=== PATIENT | male | born 1960 | race Caucasian/White ===

== ENCOUNTER 2021-11-11 15:15 | Inpatient (IN) | payer OTHER, MEDICAID, SELFPAY ==
--- NOTE | ~2021-11-11 | CT_ITS ---
EXAM: NONCONTRAST CT OF THE CHEST; NONCONTRAST CT OF THE ABDOMEN AND PELVIS INDICATION: Cough, discomfort, abdominal pain COMPARISON: 08/29/2010 TECHNIQUE: No IV contrast was utilized. Multidetector helical imaging was performed through the chest, abdomen, and pelvis. Coronal and sagittal reformatted images were created at the technologist workstation. DOSE LOWERING TECHNIQUES: This CT examination was performed using dose optimization techniques as appropriate, variously including the following: - Automated exposure control - Adjustment of mA and/or kV according to patient size (this includes techniques or standardized protocols for targeted exams were dose is matched to indication/reason for exam; i.e. extremities or head) - Use of iterative reconstruction technique DLP: 1139 mGy-cm FINDINGS: Chest: No regions of consolidation bilaterally. No pneumothorax or pleural effusion. Visualized thyroid gland is grossly unremarkable. There are subcentimeter mediastinal lymph nodes within the range of normal variation. Cardiac size is within normal limits; no pericardial effusion. Unenhanced aorta appears normal in caliber. No axillary lymphadenopathy is present. Degenerative changes are noted in the thoracic spine. Abdomen/Pelvis: The liver is homogeneous in attenuation without intrahepatic biliary ductal dilatation. The gallbladder is unremarkable. There is partial fatty atrophy of the pancreas. The unenhanced spleen and adrenal glands appear unremarkable. The unenhanced kidneys are unremarkable without hydronephrosis. No renal or ureteral calculi are present. The urinary bladder is unremarkable. The prostate and seminal vesicles are unremarkable. Small bilateral fat-containing inguinal hernias. There is sigmoid colon diverticulosis without diverticulitis. No significant bowel wall thickening or pericolonic inflammation is seen. There is some prominence of submucosal fat in the ascending colon which can be seen as sequelae of prior inflammation. The appendix is unremarkable. No free fluid or free air is present. Scattered atherosclerotic calcifications are present. No retroperitoneal or pelvic lymphadenopathy is seen. Degenerative changes are noted in the spine. CT/CT abdomen pelvis wo con IMPRESSION: No acute findings identified in the chest, abdomen, or pelvis. Chronic appearing changes as noted above.
--- NOTE | 2021-11-11 15:25 | MHC.CARE ---
Pt was assessed by [facility] in the community and is inpatient psychiatric bedsearch.
[2021-11-11 15:34] VITALS: BP 121/72; BP 142/84; PULSE 102; PULSE 98; TEMP 36.7; O2SAT 97; O2SAT 98; BMI 33.4
--- NOTE | 2021-11-11 16:13 | ECG_ITS ---
Test Reason : MED CLEARANCE Blood Pressure : / mmHG Vent. Rate : 093 BPM Atrial Rate : 093 BPM P-R Int : 144 ms QRS Dur : 102 ms QT Int : 372 ms P-R-T Axes : 049 004 055 degrees QTc Int : 462 ms Normal sinus rhythm Incomplete right bundle branch block Nonspecific ST abnormality Abnormal ECG When compared with ECG of 13-NOV-2015 16:21, ST now depressed in Anterior leads Referred By: Mary Granger Electronically Signed By:Michael Starr
--- NOTE | 2021-11-11 16:51 | ED_ITS ---
HPI - Psych General Chief Complaint: Psychiatric Symptoms <EDWIGE Torrez - Last Filed: 11/11/21 17:53> Stated Complaint: SEC12:N,SEEN:COMM,BED SEARCH:IN PROG,NEED MED CL <EDWIGE Torrez Last Filed: 11/11/21 17:53> Time Seen by Provider: 11/11/21 15:57 <EDWIGE Torrez - Last Filed: 11/11/21 17:53> Source: patient and EMS <EDWIGE Torrez Last Filed: 11/11/21 17:53> Mode of arrival: EMS <EDWIGE Torrez Last Filed: 11/11/21 17:53> History of Present Illness HPI Narrative: 61-year-old male with a past medical history of anxiety presenting to the ED complaining increasing panic attack x3 weeks with suicidal ideations and plan to hang himself with chain, reports symptoms have been worsening over the past 5 days. Admits sister passed and her birthday recently passed which exacerbated symptoms. Patient was evaluated in community and is a [facility] section 12 inpatient bed search. Reports anxiety makes him nauseous, anorexic, and mildly SOB, which is typical for him. Denies fever, chills, chest pain, abdominal pain, HI, EToH or illicit substance use <EDWIGE Torrez Last Filed: 11/11/21 17:53> MD complaint: feels depressed and anxiety <EDWIGE Torrez Last Filed: 11/11/21 17:53> Related Data Home Medications: Home Medications Medication Instructions Recorded Confirmed aspirin 81 mg tablet,delayed 81 mg PO DAILY 11/11/21 11/11/21 release atorvastatin 20 mg tablet 20 mg PO DAILY 11/11/21 11/11/21 buspirone 10 mg tablet 10 mg PO BID 11/11/21 11/11/21 clonazepam 1 mg tablet 1 mg PO TID 11/11/21 11/11/21 fenofibrate 160 mg tablet 160 mg PO DAILY 11/11/21 11/11/21 fluoxetine 20 mg capsule 60 mg PO DAILY 11/11/21 11/11/21 lisinopril 5 mg tablet 5 mg PO DAILY 11/11/21 11/11/21 omeprazole 20 mg capsule,delayed 20 mg PO DAILY 11/11/21 11/11/21 release propranolol 10 mg tablet 10 mg PO BID PRN 11/11/21 11/11/21 <EDWIGE Torrez - Last Filed: 11/11/21 17:53> Allergies/Adverse Reactions: Allergies Allergy/AdvReac Type Severity Reaction Status Date / Time acetaminophen [Percocet] Allergy Unknown Verified 11/15/12 00:00 oxycodone [Percocet] Allergy Unknown Verified 11/15/12 00:00 codeine [CODEINE] AdvReac Severe sick to Unverified 06/21/20 15:26 his stomach Codeine Sulfate Allergy Unknown Uncoded 11/15/12 00:00 <EDWIGE Torrez - Last Filed: 11/11/21 17:53> Review of Systems 2 Review of Systems: Constitutional: No Fever, No Chills, No Fatigue, No Malaise ENT/Mouth: No Ear Pain, No Nasal Congestion, No sore throat, No Rhinorrhea Eyes: No Eye Pain, No Swelling, No Redness Cardiovascular: No Chest Pain, + SOB (not at present), No Dyspnea on Exertion, No Palpitations Respiratory: No Cough, No Sputum, No Dyspnea Gastrointestinal: + Nausea, No Vomiting, No Diarrhea, No Constipation, No Abdominal pain Genitourinary: No Dysuria, No Urinary Frequency, No Flank Pain, No Urinary Flow Changes Musculoskeletal: No joint pain, No Myalgias, No Joint Swelling Skin: No Skin Lesions, No rash Neuro: No Weakness, No Numbness, No Dizziness, No Headache Psych: + Anxiety/Panic, + Depression, + SI, No HI/AH/VH, No Social Issues <EDWIGE Torrez - Last Filed: 11/11/21 17:53> Yes all other systems are reviewed and are negative <EDWIGE Torrez - Last Filed: 11/11/21 17:53> [facility] Past Medical History Attestation statement: The following information was validated with the patient. <EDWIGE Torrez - Last Filed: 11/11/21 17:53> Social History Social History: Social History Patient Tobacco Use Status: Current everyday Tobacco user Use of substances other than those prescribed or required for medical reasons: No Advance Directives: No Advance Directives Information Provided: No <EDWIGE Torrez - Last Filed: 11/11/21 17:53> Physical Exam Vital Signs: Vital Signs: Last Vital Signs Temp 99.2 F 11/12/21 01:35 Pulse 82 11/12/21 01:35 Resp 18 11/12/21 01:35 BP 157/67 H 11/12/21 01:35 Pulse Ox 98 11/12/21 01:35 BMI result Body Mass Index 33.4 <EDWIGE Torrez - Last Filed: 11/11/21 17:53> Vital Signs: Last Vital Signs Temp 99.2 F 11/12/21 01:35 Pulse 82 11/12/21 01:35 Resp 18 11/12/21 01:35 BP 157/67 H 11/12/21 01:35 Pulse Ox 98 11/12/21 01:35 BMI result Body Mass Index 33.4 <Adela Gonzalez MD - Last Filed: 11/12/21 05:57> Vital Signs: Last Vital Signs Temp 99.2 F 11/12/21 01:35 Pulse 82 11/12/21 01:35 Resp 18 11/12/21 01:35 BP 157/67 H 11/12/21 01:35 Pulse Ox 98 11/12/21 01:35 BMI result Body Mass Index 33.4 <Ave Stauffer NP - Last Filed: 11/12/21 08:29> Const: General: cooperative, no acute distress and anxious <EDWIGE Torrez - Last Filed: 11/11/21 17:53> Orientation/consciousness: patient oriented x3 <EDWIGE Torrez - Last Filed: 11/11/21 17:53> Limitations: no limitations <EDWIGE Torrez - Last Filed: 11/11/21 17:53> HENMT: Head: Yes normal to inspection and Yes atraumatic <EDWIGE Torrez - Last Filed: 11/11/21 17:53> Ears: hearing grossly normal bilaterally <EDWIGE Torrez - Last Filed: 11/11/21 17:53> General nose exam: Normal external nose present <EDWIGE Torrez - Last Filed: 11/11/21 17:53> Face and sinus: Yes normal facial exam <Mary Granger PA - Last Filed: 11/11/21 17:53> Eyes: General: appearance normal, both eyes and all related structures <Mary Granger PA - Last Filed: 11/11/21 17:53> EOM: EOMs intact bilaterally <Mary Granger PA - Last Filed: 11/11/21 17:53> Neck: Neck: Yes normal visual inspection and Yes no meningeal signs <Mary Granger PA - Last Filed: 11/11/21 17:53> Resp: Effort & Inspection: normal respiratory effort and no respiratory distress <Mary Granger PA - Last Filed: 11/11/21 17:53> Auscultation: clear to auscultation bilaterally, no rales, no rhonchi and no wheezes <Mary Granger PA - Last Filed: 11/11/21 17:53> Cardio: Rate: regular rate <Mary Granger PA - Last Filed: 11/11/21 17:53> Heart sounds: S1 normal heart sound present and S2 normal heart sound present <Mary Granger PA - Last Filed: 11/11/21 17:53> GI: Inspection: Yes normal to inspection <Mary Granger PA - Last Filed: 11/11/21 17:53> Palpation (GI): Soft to palpation, nontender, no guarding and not rigid <Mary Granger PA - Last Filed: 11/11/21 17:53> Skin: Rashes: no rashes <Mary Granger PA - Last Filed: 11/11/21 17:53> Wounds: no wounds <Mary Granger PA - Last Filed: 11/11/21 17:53> Neuro: General: patient oriented x3, gait normal, tone normal, moves all extremities, no meningeal signs, no focal motor deficits and CN's II-XI intact bilaterally <Mary Granger PA - Last Filed: 11/11/21 17:53> Gait exam (Neuro): Normal gait present <Mary Granger PA - Last Filed: 11/11/21 17:53> Extrem: General: Yes normal to inspection <EDWIGE Torrez - Last Filed: 11/11/21 17:53> Psych: Mental Status: mental status grossly normal <EDWIGE Torrez - Last Filed: 11/11/21 17:53> Affect: Sad affect present and Anxious affect present <EDWIGE Torrez - Last Filed: 11/11/21 17:53> Thought content: Suicidality present, no homicidality, no hallucinations and Depressive thoughts present <EDWIGE Torrez - Last Filed: 11/11/21 17:53> Course Course Course Narrative: 1800--ED care transfer to [employer] [facility] pending labs, UA, drug screen, and cont inued bed search <EDWIGE Torrez - Last Filed: 11/11/21 17:53> 1800--ED care transfer to [employer] [facility] pending labs, UA, drug screen, and continued bed search <Adela Gonzalez MD - Last Filed: 11/12/21 05:57> Reevaluation(s) Reevaluation #1: Patient was signed out to me with new worsening kidney function and a mild leukocytosis, however on imaging studies (noncontrast) there are no acute findings in the chest/abdomen/pelvis. Suspect that worsening kidney function is progression of CKDAnd the noted leukocytosis felt to be secondary to combination of hemoconcentration and stress response. Patient is otherwise me dically cleared for further evaluation by the behavioral team. <Adela Gonzalez MD - Last Filed: 11/12/21 05:57> Time: 05:54 <Adela Gonzalez MD - Last Filed: 11/12/21 05:57> Reevaluation #2: Patient placed in physician observation because the patient needed more time for evaluation by the behavioral team. At the time observation was started the patient's vital signs were stable, patient is alert and oriented, neuro: Nonfocal, CV RRR, lungs clear <Adela Gonzalez MD - Last Filed: 11/12/21 05:57> Time: 05:56 <Adela Gonzalez MD - Last Filed: 11/12/21 05:57> Reevaluation #3: patient is currently a section 12 bed search and is being followed by the Behavioral team. Currently sleeping. No complaints from nursing overnight. Respiratory even and labored. Vitals are stable. Will physician position observation pending disposition <Ave Stauffer NP - Last Filed: 11/12/21 08:29> MDM - Psych MDM Narrative Medical decision making narrative: 61-year-old male with a past medical history of anxiety presenting to the ED complaining increasing panic attack x3 weeks with suicidal ideations and plan to hang himself with chain, reports symptoms have been worsening over the past 5 days. On exam vital signs stable, NAD, physical exam as above. Will rule out organic causes/obtain medical clearance. Plan: EKG, labs, UA, drug screen, care team consult/bed search <EDWIGE Torrez - Last Filed: 11/11/21 17:53> Differential Diagnosis Differential diagnosis: Likely suicidal ideation, depression, acute anxiety, substance abuse and mood disorder <EDWIGE Torrez - Last Filed: 11/11/21 17:53> Medical Records Attestation: I reviewed the patient's medical records. <EDWIGE Torrez - Last Filed: 11/11/21 17:53> Lab Data Attestation: I reviewed the patient's lab results. <EDWIGE Torrez - Last Filed: 11/11/21 17:53> Result diagrams: : 11/11/21 17:38 11/12/21 01:39 <EDWIGE Torrez - Last Filed: 11/11/21 17:53> Labs: Lab Results 11/11/21 11/11/21 11/11/21 Range/Units 16:32 17:38 17:38 WBC 15.1 H (4.8-10.8) X10*3/uL RBC 5.77 (4.60-5.80) X10*6/uL Hgb 18.2 H (14.0-18.0) g/dl Hct 51.8 (42.0-52.0) % MCV 89.8 (80.0-98.0) fL MCH 31.5 (27.0-33.0) pg MCHC 35.1 (31.0-36.0) g/dl RDW 12.1 (11.0-16.0) % Plt Count 260 (160-400) X10*3/uL MPV 10.2 (9.4-12.4) fL Immature Gran % (Auto) 0.6 H (0.0-0.4) % Neut % (Auto) 74.8 H (45-73) % Lymph % (Auto) 13.8 L (20-40) % [place] % (Auto) 10.3 (2-11) % Eos % (Auto) 0.2 (0-4) % Baso % (Auto) 0.3 (0-2) % Lymph # (Auto) 2.1 (1.2-4.9) X10*3/uL [place] # (Auto) 1.6 H (0.1-1.2) X10*3/uL Eos # (Auto) 0.0 (0.0-0.4) X10*3/uL Baso # (Auto) 0.1 (0.0-0.2) X10*3/uL Abs Immat Gran (auto) 0.09 H (0.00-0.03) X10*3/uL Absolute Neuts (auto) 11.3 H (2.0-8.3) x10*3/uL Absolute Nucleated RBC 0.000 (0.0-0.012) X10*3/uL Nucleated RBC % (auto) 0.0 (0.0-0.2) /100WBC Smear Tech's Comments VERIFIED Sodium 133 L (135-145) mmol/L Potassium 3.4 (3.3-5.1) mmol/L Chloride 98 (96-108) mmol/L Carbon Dioxide 21 L (22-29) mmol/L Anion Gap 17 (12-20) BUN 36 H (9-16) mg/dL Creatinine 2.81 H (0.5-1.4) mg/dL Estim Creat Clear Calc 32.0 Estimated GFR 23 Random Glucose 122 H (60-115) mg/dL Calcium 9.8 (8.4-10.2) mg/dL Magnesium 2.0 (1.6-2.6) mg/dL Total Bilirubin 1.4 H (0.0-1.0) mg/dL Direct Bilirubin 0.5 (0.0-0.5) mg/dL AST 32 (5-37) U/L ALT 38 (0-40) U/L Alkaline Phosphatase 40 (39-117) U/L Total Protein 8.1 H (6.5-8.0) g/dL Albumin 4.8 (3.5-5.0) g/dL Lipase 60 (8-78) U/L Urine Color Urine Appearance Urine pH (5.0-8.0) Ur Specific [place] (1.005-1.025) Urine Protein (NEG-TRACE) MG/DL Urine Glucose (UA) (NEG) MG/DL Urine Ketones (NEG) MG/DL Urine Blood (NEG) Urine Nitrite (NEG) Ur Leukocyte Esterase (NEG) Urine RBC (0) /HPF Urine WBC (0-4) /HPF Ur Squamous Epith Cells /LPF Urine Bacteria /LPF Hyaline Casts /LPF Urine Mucus /LPF Urine Opiates Screen (Not Detect) Urine Fentanyl Screen (Not Detect) Ur Barbiturates Screen (Not Detect) Ur Phencyclidine Scrn (Not Detect) Ur Amphetamines Screen (Not Detect) U Benzodiazepines Scrn (Not Detect) Urine Cocaine Screen (Not Detect) U Marijuana (THC) Screen (Not Detect) COVID-19 (RG) Negative (Negative) COVID-19 Clin Com See Note 11/11/21 11/12/21 11/12/21 Range/Units 19:17 01:39 06:03 WBC (4.8-10.8) X10*3/uL RBC (4.60-5.80) X10*6/uL Hgb (14.0-18.0) g/dl Hct (42.0-52.0) % MCV (80.0-98.0) fL MCH (27.0-33.0) pg MCHC (31.0-36.0) g/dl RDW (11.0-16.0) % Plt Count (160-400) X10*3/uL MPV (9.4-12.4) fL Immature Gran % (Auto) (0.0-0.4) % Neut % (Auto) (45-73) % Lymph % (Auto) (20-40) % [place] % (Auto) (2-11) % Eos % (Auto) (0-4) % Baso % (Auto) (0-2) % Lymph # (Auto) (1.2-4.9) X10*3/uL [place] # (Auto) (0.1-1.2) X10*3/uL Eos # (Auto) (0.0-0.4) X10*3/uL Baso # (Auto) (0.0-0.2) X10*3/uL Abs Immat Gran (auto) (0.00-0.03) X10*3/uL Absolute Neuts (auto) (2.0-8.3) x10*3/uL Absolute Nucleated RBC (0.0-0.012) X10*3/uL Nucleated RBC % (auto) (0.0-0.2) /100WBC Smear Tech's Comments Sodium 134 L (135-145) mmol/L Potassium 4.1 D (3.3-5.1) mmol/L Chloride 100 (96-108) mmol/L Carbon Dioxide 24 (22-29) mmol/L Anion Gap 14 (12-20) BUN 37 H (9-16) mg/dL Creatinine 2.41 H (0.5-1.4) mg/dL Estim Creat Clear Calc 37.3 Estimated GFR 28 Random Glucose 105 (60-115) mg/dL Calcium 8.5 D (8.4-10.2) mg/dL Magnesium (1.6-2.6) mg/dL Total Bilirubin (0.0-1.0) mg/dL Direct Bilirubin (0.0-0.5) mg/dL AST (5-37) U/L ALT (0-40) U/L Alkaline Phosphatase (39-117) U/L Total Protein (6.5-8.0) g/dL Albumin (3.5-5.0) g/dL Lipase (8-78) U/L Urine Color YELLOW Urine Appearance CLEAR Urine pH 6.0 (5.0-8.0) Ur Specific [place] >= 1.030 H (1.005-1.025) Urine Protein TRACE (NEG-TRACE) MG/DL Urine Glucose (UA) NEG (NEG) MG/DL Urine Ketones NEG (NEG) MG/DL Urine Blood TRACE (NEG) Urine Nitrite NEG (NEG) Ur Leukocyte Esterase NEG (NEG) Urine RBC 0-2 (0) /HPF Urine WBC 0-2 (0-4) /HPF Ur Squamous Epith Cells 1+ /LPF Urine Bacteria NONE /LPF Hyaline Casts 0-2 /LPF Urine Mucus 1+ /LPF Urine Opiates Screen Not Detected (Not Detect) Urine Fentanyl Screen Not Detected (Not Detect) Ur Barbiturates Screen Not Detected (Not Detect) Ur Phencyclidine Scrn Not Detected (Not Detect) Ur Amphetamines Screen Not Detected (Not Detect) U Benzodiazepines Scrn POSITIVE H (Not Detect) Urine Cocaine Screen Not Detected (Not Detect) U Marijuana (THC) Screen POSITIVE H (Not Detect) COVID-19 (RG) (Negative) COVID-19 Clin Com <EDWIGE Torrez - Last Filed: 11/11/21 17:53> Lab Results 11/11/21 11/11/21 11/11/21 Range/Units 16:32 17:38 17:38 WBC 15.1 H (4.8-10.8) X10*3/uL RBC 5.77 (4.60-5.80) X10*6/uL Hgb 18.2 H (14.0-18.0) g/dl Hct 51.8 (42.0-52.0) % MCV 89.8 (80.0-98.0) fL MCH 31.5 (27.0-33.0) pg MCHC 35.1 (31.0-36.0) g/dl RDW 12.1 (11.0-16.0) % Plt Count 260 (160-400) X10*3/uL MPV 10.2 (9.4-12.4) fL Immature Gran % (Auto) 0.6 H (0.0-0.4) % Neut % (Auto) 74.8 H (45-73) % Lymph % (Auto) 13.8 L (20-40) % [place] % (Auto) 10.3 (2-11) % Eos % (Auto) 0.2 (0-4) % Baso % (Auto) 0.3 (0-2) % Lymph # (Auto) 2.1 (1.2-4.9) X10*3/uL [place] # (Auto) 1.6 H (0.1-1.2) X10*3/uL Eos # (Auto) 0.0 (0.0-0.4) X10*3/uL Baso # (Auto) 0.1 (0.0-0.2) X10*3/uL Abs Immat Gran (auto) 0.09 H (0.00-0.03) X10*3/uL Absolute Neuts (auto) 11.3 H (2.0-8.3) x10*3/uL Absolute Nucleated RBC 0.000 (0.0-0.012) X10*3/uL Nucleated RBC % (auto) 0.0 (0.0-0.2) /100WBC Smear Tech's Comments VERIFIED Sodium 133 L (135-145) mmol/L Potassium 3.4 (3.3-5.1) mmol/L Chloride 98 (96-108) mmol/L Carbon Dioxide 21 L (22-29) mmol/L Anion Gap 17 (12-20) BUN 36 H (9-16) mg/dL Creatinine 2.81 H (0.5-1.4) mg/dL Estim Creat Clear Calc 32.0 Estimated GFR 23 Random Glucose 122 H (60-115) mg/dL Calcium 9.8 (8.4-10.2) mg/dL Magnesium 2.0 (1.6-2.6) mg/dL Total Bilirubin 1.4 H (0.0-1.0) mg/dL Direct Bilirubin 0.5 (0.0-0.5) mg/dL AST 32 (5-37) U/L ALT 38 (0-40) U/L Alkaline Phosphatase 40 (39-117) U/L Total Protein 8.1 H (6.5-8.0) g/dL Albumin 4.8 (3.5-5.0) g/dL Lipase 60 (8-78) U/L Urine Color Urine Appearance Urine pH (5.0-8.0) Ur Specific [place] (1.005-1.025) Urine Protein (NEG-TRACE) MG/DL Urine Glucose (UA) (NEG) MG/DL Urine Ketones (NEG) MG/DL Urine Blood (NEG) Urine Nitrite (NEG) Ur Leukocyte Esterase (NEG) Urine RBC (0) /HPF Urine WBC (0-4) /HPF Ur Squamous Epith Cells /LPF Urine Bacteria /LPF Hyaline Casts /LPF Urine Mucus /LPF Urine Opiates Screen (Not Detect) Urine Fentanyl Screen (Not Detect) Ur Barbiturates Screen (Not Detect) Ur Phencyclidine Scrn (Not Detect) Ur Amphetamines Screen (Not Detect) U Benzodiazepines Scrn (Not Detect) Urine Cocaine Screen (Not Detect) U Marijuana (THC) Screen (Not Detect) COVID-19 (RG) Negative (Negative) COVID-19 Clin Com See Note 11/11/21 11/12/21 11/12/21 Range/Units 19:17 01:39 06:03 WBC (4.8-10.8) X10*3/uL RBC (4.60-5.80) X10*6/uL Hgb (14.0-18.0) g/dl Hct (42.0-52.0) % MCV (80.0-98.0) fL MCH (27.0-33.0) pg MCHC (31.0-36.0) g/dl RDW (11.0-16.0) % Plt Count (160-400) X10*3/uL MPV (9.4-12.4) fL Immature Gran % (Auto) (0.0-0.4) % Neut % (Auto) (45-73) % Lymph % (Auto) (20-40) % [place] % (Auto) (2-11) % Eos % (Auto) (0-4) % Baso % (Auto) (0-2) % Lymph # (Auto) (1.2-4.9) X10*3/uL [place] # (Auto) (0.1-1.2) X10*3/uL Eos # (Auto) (0.0-0.4) X10*3/uL Baso # (Auto) (0.0-0.2) X10*3/uL Abs Immat Gran (auto) (0.00-0.03) X10*3/uL Absolute Neuts (auto) (2.0-8.3) x10*3/uL Absolute Nucleated RBC (0.0-0.012) X10*3/uL Nucleated RBC % (auto) (0.0-0.2) /100WBC Smear Tech's Comments Sodium 134 L (135-145) mmol/L Potassium 4.1 D (3.3-5.1) mmol/L Chloride 100 (96-108) mmol/L Carbon Dioxide 24 (22-29) mmol/L Anion Gap 14 (12-20) BUN 37 H (9-16) mg/dL Creatinine 2.41 H (0.5-1.4) mg/dL Estim Creat Clear Calc 37.3 Estimated GFR 28 Random Glucose 105 (60-115) mg/dL Calcium 8.5 D (8.4-10.2) mg/dL Magnesium (1.6-2.6) mg/dL Total Bilirubin (0.0-1.0) mg/dL Direct Bilirubin (0.0-0.5) mg/dL AST (5-37) U/L ALT (0-40) U/L Alkaline Phosphatase (39-117) U/L Total Protein (6.5-8.0) g/dL Albumin (3.5-5.0) g/dL Lipase (8-78) U/L Urine Color YELLOW Urine Appearance CLEAR Urine pH 6.0 (5.0-8.0) Ur Specific [place] >= 1.030 H (1.005-1.025) Urine Protein TRACE (NEG-TRACE) MG/DL Urine Glucose (UA) NEG (NEG) MG/DL Urine Ketones NEG (NEG) MG/DL Urine Blood TRACE (NEG) Urine Nitrite NEG (NEG) Ur Leukocyte Esterase NEG (NEG) Urine RBC 0-2 (0) /HPF Urine WBC 0-2 (0-4) /HPF Ur Squamous Epith Cells 1+ /LPF Urine Bacteria NONE /LPF Hyaline Casts 0-2 /LPF Urine Mucus 1+ /LPF Urine Opiates Screen Not Detected (Not Detect) Urine Fentanyl Screen Not Detected (Not Detect) Ur Barbiturates Screen Not Detected (Not Detect) Ur Phencyclidine Scrn Not Detected (Not Detect) Ur Amphetamines Screen Not Detected (Not Detect) U Benzodiazepines Scrn POSITIVE H (Not Detect) Urine Cocaine Screen Not Detected (Not Detect) U Marijuana (THC) Screen POSITIVE H (Not Detect) COVID-19 (RG) (Negative) COVID-19 Clin Com <Adela Gonzalez MD - Last Filed: 11/12/21 05:57> Lab Results 11/11/21 11/11/21 11/11/21 Range/Units 16:32 17:38 17:38 WBC 15.1 H (4.8-10.8) X10*3/uL RBC 5.77 (4.60-5.80) X10*6/uL Hgb 18.2 H (14.0-18.0) g/dl Hct 51.8 (42.0-52.0) % MCV 89.8 (80.0-98.0) fL MCH 31.5 (27.0-33.0) pg MCHC 35.1 (31.0-36.0) g/dl RDW 12.1 (11.0-16.0) % Plt Count 260 (160-400) X10*3/uL MPV 10.2 (9.4-12.4) fL Immature Gran % (Auto) 0.6 H (0.0-0.4) % Neut % (Auto) 74.8 H (45-73) % Lymph % (Auto) 13.8 L (20-40) % [place] % (Auto) 10.3 (2-11) % Eos % (Auto) 0.2 (0-4) % Baso % (Auto) 0.3 (0-2) % Lymph # (Auto) 2.1 (1.2-4.9) X10*3/uL [place] # (Auto) 1.6 H (0.1-1.2) X10*3/uL Eos # (Auto) 0.0 (0.0-0.4) X10*3/uL Baso # (Auto) 0.1 (0.0-0.2) X10*3/uL Abs Immat Gran (auto) 0.09 H (0.00-0.03) X10*3/uL Absolute Neuts (auto) 11.3 H (2.0-8.3) x10*3/uL Absolute Nucleated RBC 0.000 (0.0-0.012) X10*3/uL Nucleated RBC % (auto) 0.0 (0.0-0.2) /100WBC Smear Tech's Comments VERIFIED Sodium 133 L (135-145) mmol/L Potassium 3.4 (3.3-5.1) mmol/L Chloride 98 (96-108) mmol/L Carbon Dioxide 21 L (22-29) mmol/L Anion Gap 17 (12-20) BUN 36 H (9-16) mg/dL Creatinine 2.81 H (0.5-1.4) mg/dL Estim Creat Clear Calc 32.0 Estimated GFR 23 Random Glucose 122 H (60-115) mg/dL Calcium 9.8 (8.4-10.2) mg/dL Magnesium 2.0 (1.6-2.6) mg/dL Total Bilirubin 1.4 H (0.0-1.0) mg/dL Direct Bilirubin 0.5 (0.0-0.5) mg/dL AST 32 (5-37) U/L ALT 38 (0-40) U/L Alkaline Phosphatase 40 (39-117) U/L Total Protein 8.1 H (6.5-8.0) g/dL Albumin 4.8 (3.5-5.0) g/dL Lipase 60 (8-78) U/L Urine Color Urine Appearance Urine pH (5.0-8.0) Ur Specific [place] (1.005-1.025) Urine Protein (NEG-TRACE) MG/DL Urine Glucose (UA) (NEG) MG/DL Urine Ketones (NEG) MG/DL Urine Blood (NEG) Urine Nitrite (NEG) Ur Leukocyte Esterase (NEG) Urine RBC (0) /HPF Urine WBC (0-4) /HPF Ur Squamous Epith Cells /LPF Urine Bacteria /LPF Hyaline Casts /LPF Urine Mucus /LPF Urine Opiates Screen (Not Detect) Urine Fentanyl Screen (Not Detect) Ur Barbiturates Screen (Not Detect) Ur Phencyclidine Scrn (Not Detect) Ur Amphetamines Screen (Not Detect) U Benzodiazepines Scrn (Not Detect) Urine Cocaine Screen (Not Detect) U Marijuana (THC) Screen (Not Detect) COVID-19 (RG) Negative (Negative) COVID-19 Clin Com See Note 11/11/21 11/12/21 11/12/21 Range/Units 19:17 01:39 06:03 WBC (4.8-10.8) X10*3/uL RBC (4.60-5.80) X10*6/uL Hgb (14.0-18.0) g/dl Hct (42.0-52.0) % MCV (80.0-98.0) fL MCH (27.0-33.0) pg MCHC (31.0-36.0) g/dl RDW (11.0-16.0) % Plt Count (160-400) X10*3/uL MPV (9.4-12.4) fL Immature Gran % (Auto) (0.0-0.4) % Neut % (Auto) (45-73) % Lymph % (Auto) (20-40) % [place] % (Auto) (2-11) % Eos % (Auto) (0-4) % Baso % (Auto) (0-2) % Lymph # (Auto) (1.2-4.9) X10*3/uL [place] # (Auto) (0.1-1.2) X10*3/uL Eos # (Auto) (0.0-0.4) X10*3/uL Baso # (Auto) (0.0-0.2) X10*3/uL Abs Immat Gran (auto) (0.00-0.03) X10*3/uL Absolute Neuts (auto) (2.0-8.3) x10*3/uL Absolute Nucleated RBC (0.0-0.012) X10*3/uL Nucleated RBC % (auto) (0.0-0.2) /100WBC Smear Tech's Comments Sodium 134 L (135-145) mmol/L Potassium 4.1 D (3.3-5.1) mmol/L Chloride 100 (96-108) mmol/L Carbon Dioxide 24 (22-29) mmol/L Anion Gap 14 (12-20) BUN 37 H (9-16) mg/dL Creatinine 2.41 H (0.5-1.4) mg/dL Estim Creat Clear Calc 37.3 Estimated GFR 28 Random Glucose 105 (60-115) mg/dL Calcium 8.5 D (8.4-10.2) mg/dL Magnesium (1.6-2.6) mg/dL Total Bilirubin (0.0-1.0) mg/dL Direct Bilirubin (0.0-0.5) mg/dL AST (5-37) U/L ALT (0-40) U/L Alkaline Phosphatase (39-117) U/L Total Protein (6.5-8.0) g/dL Albumin (3.5-5.0) g/dL Lipase (8-78) U/L Urine Color YELLOW Urine Appearance CLEAR Urine pH 6.0 (5.0-8.0) Ur Specific [place] >= 1.030 H (1.005-1.025) Urine Protein TRACE (NEG-TRACE) MG/DL Urine Glucose (UA) NEG (NEG) MG/DL Urine Ketones NEG (NEG) MG/DL Urine Blood TRACE (NEG) Urine Nitrite NEG (NEG) Ur Leukocyte Esterase NEG (NEG) Urine RBC 0-2 (0) /HPF Urine WBC 0-2 (0-4) /HPF Ur Squamous Epith Cells 1+ /LPF Urine Bacteria NONE /LPF Hyaline Casts 0-2 /LPF Urine Mucus 1+ /LPF Urine Opiates Screen Not Detected (Not Detect) Urine Fentanyl Screen Not Detected (Not Detect) Ur Barbiturates Screen Not Detected (Not Detect) Ur Phencyclidine Scrn Not Detected (Not Detect) Ur Amphetamines Screen Not Detected (Not Detect) U Benzodiazepines Scrn POSITIVE H (Not Detect) Urine Cocaine Screen Not Detected (Not Detect) U Marijuana (THC) Screen POSITIVE H (Not Detect) COVID-19 (RG) (Negative) COVID-19 Clin Com <Ave Stauffer NP - Last Filed: 11/12/21 08:29> Discharge Plan Discharge Clinical Impression: Depression, Suicidal ideation, Acute anxiety <EDWIGE Torrez - Last Filed: 11/11/21 17:53> Patient Disposition: Still a Patient <EDWIGE Torrez - Last Filed: 11/11/21 17:53> Prescriptions: No Action buspirone 10 mg Tablet 10 mg PO BID 0RF fluoxetine 20 mg Capsule 60 mg PO DAILY 0RF atorvastatin 20 mg Tablet 20 mg PO DAILY 0RF clonazepam 1 mg Tablet 1 mg PO TID 0RF propranolol 10 mg Tablet 10 mg PO BID PRN (Reason: NEEDED) 0RF omeprazole 20 mg Capsule,Delayed Release(Dr/Ec) 20 mg PO DAILY 0RF fenofibrate 160 mg Tablet 160 mg PO DAILY 0RF lisinopril 5 mg Tablet 5 mg PO DAILY 0RF aspirin 81 mg Tablet,Delayed Release (Dr/Ec) 81 mg PO DAILY 0RF <EDWIGE Torrez - Last Filed: 11/11/21 17:53>
[2021-11-11 17:00] LABS: COVID-19 Test Negative (Negative); IDNOW Serial# 9DD0AD1C
[2021-11-11] MEDS: LORazepam 1 MG TABLET PO (17:43)
[2021-11-11 17:44] LABS: Basophils Absolute Auto 0.1 X10*3/uL (0.0-0.2); Basophils Percent Auto 0.3 % (0-2); Eosinophils Percent Auto 0.2 % (0-4); Hematocrit 51.8 % (42.0-52.0); Hemoglobin 18.2 g/dl (14.0-18.0); Imm Gran Abs Auto 0.09 X10*3/uL (0.00-0.03); Imm Gran Pct Auto 0.6 % (0.0-0.4); Lymphocytes Absolute Auto 2.1 X10*3/uL (1.2-4.9); Lymphocytes Percent Auto 13.8 % (20-40); MANUAL DIFF FLAG SCAN; Mean Corpuscular HGB Conc 35.1 g/dl (31.0-36.0); Mean Corpuscular Hemoglobin 31.5 pg (27.0-33.0); Mean Corpuscular Volume 89.8 fL (80.0-98.0); Mean Platelet Volume 10.2 fL (9.4-12.4); Monocytes Absolute Auto 1.6 X10*3/uL (0.1-1.2); Monocytes Percent Auto 10.3 % (2-11); Neutrophils Absolute Auto 11.3 x10*3/uL (2.0-8.3); Neutrophils Percent Auto 74.8 % (45-73); Platelet Count 260 X10*3/uL (160-400); Red Blood Count 5.77 X10*6/uL (4.60-5.80); Red Cell Distribution Width 12.1 % (11.0-16.0); SCAN SMEAR FLAG 1; White Blood Count 15.1 X10*3/uL (4.8-10.8)
--- NOTE | 2021-11-11 18:00 | PC.NURSE ---
pt alert and oriented, vss, denies pain. pt seen in community and is a current bed search, pt needs medical clearance. pt states he is going through a lot and was having SI. He denies HI, denies substance use, denies ETOH. pt currently denies SI at this time.
[2021-11-11 18:01] LABS: Alanine Aminotransferase 38 U/L (0-40); Albumin Level 4.8 g/dL (3.5-5.0); Alkaline Phosphatase 40 U/L (39-117); Anion Gap 17 (12-20); Aspartate Amino Transferase 32 U/L (5-37); Bilirubin Direct 0.5 mg/dL (0.0-0.5); Bilirubin Total 1.4 mg/dL (0.0-1.0); Blood Urea Nitrogen 36 mg/dL (9-16); Calcium 9.8 mg/dL (8.4-10.2); Carbon Dioxide 21 mmol/L (22-29); Chloride 98 mmol/L (96-108); Estimated Glomerular Filt Rate 23; Glucose Random 122 mg/dL (60-115); Potassium 3.4 mmol/L (3.3-5.1); Sodium 133 mmol/L (135-145); Total Protein 8.1 g/dL (6.5-8.0)
[2021-11-11 18:05] LABS: SLIDE REVIEW VERIFIED
--- NOTE | 2021-11-11 18:22 | PHA.MEDREC ---
MED REC COMPLETE, NO ISSUES. [facility] Pharmacy Consult ? Medication Reconciliation Pharmacy has completed the medication reconciliation.
[2021-11-11 18:42] VITALS: BP 131/77; PULSE 64; TEMP 37.1; O2SAT 98
[2021-11-11 19:42] LABS: Amphetamine Screen Urine Not Detected (Not Detect); Barbiturates, Urine Not Detected (Not Detect); Benzodiazepines Screen Urine POSITIVE (Not Detect); Cannabinoid Screen Urine POSITIVE (Not Detect); Cocaine Screen Urine Not Detected (Not Detect); Fentanyl, urine Not Detected (Not Detect); Opiate Screen Urine Not Detected (Not Detect); Phencyclidine Screen Urine Not Detected (Not Detect)
[2021-11-11] MEDS: Nicotine 21 MG PATCH.TD24 TRANSDERMA (20:50)
--- NOTE | 2021-11-12 | ECG_ITS ---
Test Reason : med clearance Blood Pressure : / mmHG Vent. Rate : 092 BPM Atrial Rate : 092 BPM P-R Int : 150 ms QRS Dur : 098 ms QT Int : 400 ms P-R-T Axes : 068 014 065 degrees QTc Int : 494 ms Normal sinus rhythm Possible Left atrial enlargement Incomplete right bundle branch block Nonspecific ST and T wave abnormality Prolonged QT Abnormal ECG When compared with ECG of 11-NOV-2021 18:54, No significant change was found Referred By: Josiane Hudson Electronically Signed By:Michael Starr
[2021-11-12] MEDS: busPIRone HCl 10 MG TABLET PO ×2 (00:14→09:48)
[2021-11-12] MEDS: clonazePAM 1 MG TABLET PO ×4 (00:14→20:38)
[2021-11-12] MEDS: 0.9 % Sodium Chloride 1,000 ML 999 ML IVCONT ×2 (00:15→01:27)
[2021-11-12 01:35] VITALS: BP 157/67; PULSE 82; RESP 18; TEMP 37.3; O2SAT 98
[2021-11-12 02:08] LABS: Anion Gap 14 (12-20); Blood Urea Nitrogen 37 mg/dL (9-16); Calcium 8.5 mg/dL (8.4-10.2); Carbon Dioxide 24 mmol/L (22-29); Chloride 100 mmol/L (96-108); Creatinine Clr Calc Pharmacy 37.3; Estimated Glomerular Filt Rate 28; Glucose Random 105 mg/dL (60-115); Potassium 4.1 mmol/L (3.3-5.1); Sodium 134 mmol/L (135-145)
[2021-11-12 03:46] LABS: Lipase 60 U/L (8-78)
--- NOTE | 2021-11-12 05:52 | PC.NURSE ---
Patient did not sleep well, behavior appropriate, medication compliant, CT chest/abdomen/pelvis negative, elevated BUN and creatinine x 2, redraw BMP at 7am, Patient disposition per N is section 12 inpatient bed search for increased depression and consistent suicidal ideation, will continue to monitor.
[2021-11-12 06:12] LABS: Appearance Urine CLEAR; Color Urine YELLOW; Glucose Urine UA NEG (NEG); Leukocyte Esterase Urine NEG (NEG); Nitrite Urine NEG (NEG); Specific Gravity - Urine >= 1.030 (1.005-1.025); UACC Culture Trigger NO; Urine Blood TRACE (NEG); Urine Ketones NEG (NEG); Urine Protein TRACE MG/DL (NEG-TRACE)
[2021-11-12 06:37] LABS: Hyaline Casts Urine 0-2 /LPF; Mucus Urine 1+ /LPF; RBC Urine 0-2 /HPF (0); Squamous Epithelial Cell Urine 1+ /LPF; WBC Urine 0-2 /HPF (0-4)
--- NOTE | 2021-11-12 07:29 | PC.NURSE ---
patient appears to remain asleep at present respirations are even and unlabored patient appears in no distress
[2021-11-12 08:37] LABS: Anion Gap 15 (12-20); Blood Urea Nitrogen 32 mg/dL (9-16); Calcium 8.6 mg/dL (8.4-10.2); Carbon Dioxide 19 mmol/L (22-29); Chloride 102 mmol/L (96-108); Creatinine Clr Calc Pharmacy 49.4; Estimated Glomerular Filt Rate 38; Glucose Random 121 mg/dL (60-115); Potassium 3.4 mmol/L (3.3-5.1); Sodium 133 mmol/L (135-145)
[2021-11-12] MEDS: Fenofibrate 160 MG TABLET PO (09:47)
[2021-11-12] MEDS: Atorvastatin Calcium 20 MG TABLET PO (09:47)
[2021-11-12] MEDS: Nicotine 21 MG PATCH.TD24 TRANSDERMA (09:47)
[2021-11-12] MEDS: Omeprazole 20 MG CAPSULE.DR PO (09:48)
[2021-11-12] MEDS: lisinopriL 5 MG TABLET PO (09:48)
[2021-11-12] MEDS: FLUoxetine HCl 20 MG CAPSULE 60 MG PO (09:48)
[2021-11-12] MEDS: Aspirin Enteric Coated 81 MG TABLET.DR PO (09:48)
[2021-11-12 10:25] LABS: COVID-19 Test Negative (Negative)
[2021-11-12] MEDS: Loperamide HCl 2 MG CAPSULE 4 MG PO (11:01)
[2021-11-12 13:34] LABS: Basophils Percent Auto 0.2 % (0-2); Eosinophils Absolute Auto 0.1 X10*3/uL (0.0-0.4); Eosinophils Percent Auto 0.5 % (0-4); Hematocrit 46.2 % (42.0-52.0); Hemoglobin 16.5 g/dl (14.0-18.0); Imm Gran Abs Auto 0.05 X10*3/uL (0.00-0.03); Imm Gran Pct Auto 0.4 % (0.0-0.4); Lymphocytes Absolute Auto 1.4 X10*3/uL (1.2-4.9); Lymphocytes Percent Auto 11.2 % (20-40); MANUAL DIFF FLAG NO; Mean Corpuscular HGB Conc 35.7 g/dl (31.0-36.0); Mean Corpuscular Hemoglobin 31.9 pg (27.0-33.0); Mean Corpuscular Volume 89.4 fL (80.0-98.0); Mean Platelet Volume 10.1 fL (9.4-12.4); Monocytes Absolute Auto 1.3 X10*3/uL (0.1-1.2); Monocytes Percent Auto 10.4 % (2-11); Neutrophils Absolute Auto 9.8 x10*3/uL (2.0-8.3); Neutrophils Percent Auto 77.3 % (45-73); Platelet Count 235 X10*3/uL (160-400); Red Blood Count 5.17 X10*6/uL (4.60-5.80); Red Cell Distribution Width 11.9 % (11.0-16.0); White Blood Count 12.7 X10*3/uL (4.8-10.8)
[2021-11-12 14:01] LABS: Troponin-I High Sensitivity 4.9 ng/L (<3.5-35.0)
[2021-11-12] MEDS: Ondansetron ODT 4 MG TAB.RAPDIS TRANSLINGU (15:21)
[2021-11-12 15:45] VITALS: BMI 31.8
[2021-11-12 17:01] VITALS: BP 162/76; PULSE 85; RESP 20; TEMP 35.6
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
[2021-11-12 18:00] VITALS: BP 122/89; PULSE 105; RESP 18; TEMP 37; O2SAT 96
[2021-11-12] MEDS: traZODone HCL 50 MG TABLET PO (20:41)
[2021-11-12 21:59] LABS: Glucose, Whole Blood 139 mg/dL (60-115)
--- NOTE | 2021-11-12 22:01 | PC.NURSE ---
patient requesting help when in the shower as he had placed himself on the floor. reported that when he feels anxious at home that he will take a hot shower but reported feeling increasing anxious when in shower and felt the ambient air was too hot. event was at approximately 2130. VS 108/67, 124, 14, 97%, 97.8. patient was able to get off the floor with minimal assist. when on bench in shower asked ''Are they going to come get me?'' ''Am I safe here?'' when questioned as to whom patient was referring to shook his head ''I'm not sure'' dressed and walked to his room. patient had meal tray at bed side but had not eaten. monitored for fluid injestion and drank 16 oz water, a grape juice and continued to drink from bedside pitcher. repeat VS at 2200 131/77, 99, 14, 96% POC 139. Reported ''high'' anxiety. utilizing multiple heavy blankets in bed. reported ''I feel tired'' ''I think I had a panic attack''
[2021-11-12 22:58] VITALS: BP 135/82; PULSE 106; RESP 18; TEMP 37.1; O2SAT 94
[2021-11-13] MEDS: clonazePAM 1 MG TABLET PO ×3 (08:19→20:59)
[2021-11-13] MEDS: Fenofibrate 160 MG TABLET PO (08:19)
[2021-11-13] MEDS: lisinopriL 5 MG TABLET PO (08:19)
[2021-11-13] MEDS: Aspirin Enteric Coated 81 MG TABLET.DR PO (08:19)
[2021-11-13] MEDS: FLUoxetine HCl 20 MG CAPSULE 60 MG PO (08:19)
[2021-11-13] MEDS: Atorvastatin Calcium 20 MG TABLET PO (08:19)
[2021-11-13] MEDS: Omeprazole 20 MG CAPSULE.DR PO (08:19)
[2021-11-13] MEDS: Nicotine 21 MG PATCH.TD24 TRANSDERMA (08:20)
[2021-11-13 08:23] VITALS: BP 135/89; PULSE 107; RESP 16; TEMP 36.8; O2SAT 95
[2021-11-13 08:50] LABS: Estimated Average Glucose 117 mg/dL; Hemoglobin A1c % 5.7 %
[2021-11-13 12:56] LABS: Free T4 (Free Thyroxine) 0.87 ng/dL (0.71-1.85); Thyroid Stimulating Hormone 1.25 uIU/mL (0.32-4.0)
[2021-11-13 13:20] LABS: Alanine Aminotransferase 35 U/L (0-40); Albumin Level 4.4 g/dL (3.5-5.0); Alkaline Phosphatase 37 U/L (39-117); Anion Gap 17 (12-20); Aspartate Amino Transferase 30 U/L (5-37); Bilirubin Total 0.9 mg/dL (0.0-1.0); Carbon Dioxide 23 mmol/L (22-29); Chloride 102 mmol/L (96-108); Cholesterol 147 mg/dL; Creatinine Clr Calc Pharmacy 54.5; Estimated Glomerular Filt Rate 44; Glucose Fasting 115 mg/dL (60-99); HDL Cholesterol 25 mg/dL; LDL Cholesterol Calculated 87 mg/dl; Potassium 3.8 mmol/L (3.3-5.1); Sodium 138 mmol/L (135-145); Total Protein 7.4 g/dL (6.5-8.0); Triglycerides 178 mg/dL
[2021-11-13 13:29] VITALS: BP 122/60; PULSE 114; RESP 20; O2SAT 98
--- NOTE | 2021-11-13 13:32 | PC.NURSE ---
Pateint was noted to be extremely diaphoretic with sweat dripping off his head. Pt reported feeling nauseous, thirsty lethargic and weak, denied pain. Vss. Pt states that he is type 2 diabetic, POC 146. Pt given fluids, provider notified of pt complaints, condition, vital signs and POC. No new orders at this time.
[2021-11-13 13:34] LABS: Glucose, Whole Blood 146 mg/dL (60-115)
--- NOTE | 2021-11-13 14:28 | P.PNPSI_ITS ---
Subjective Subjective Date of Service: 11/13/21 Reason For Visit: SI Subjective Notes: Conditional Voluntary Interim History: Pt reports having episode of intense sweating, polydipsia, intense abdominal pain, overall pain, vomiting, can't keep food down. Pt reports that these episodes happen not so often, last time was about two years ago. He reports that although he has had recent loss of his sister, he was not suicidal. he became suicidal when he experienced constellation of physical symptoms, which he reports has not had in about 2 years. He reports he used to have them every year, that would last about 30 days. He continues to endorse depressed mood, anhedonia, hopeless, helpless, passive SI, mental fog, difficulty breathing (o2sat>95), polydipsia, although thinks is better today. He reports sleeping through the night. Medication Compliance: Yes Side effects from medications: No Review of Systems Review of Systems CVS: No c/o chest pain, palpitations, no SOB POWDER GUARD: No c/o dizziness, headache GI: No c/o Nausea, Vomiting, diarrhea, constipation or heartburn Yes all other systems are reviewed and are negative Mental Status Exam Mental Status Exam Narrative: A&O. Large frame, in hospital attire, just showered. Good/ intense eye contact, attentive. No Tics or Tremors. No abnormal involuntary movements. Calm, cooperative, engaged. Non-pressured speech, spontaneous with regular rate and rhythm, normal volume and prosody. No prolonged speech latency or dysarthria. Mood is ?depressed, anxious,? affect is anxious, tearful. passive SI. No SIB/HI upon inquiry. Denies A/VH or delusional thought content. Thoughts are somewhat slowed, says he has had worsening concentration and forgetfulness. Insight/ Judgment fair and adequate. Diagnostics Vital Signs (24Hr): Vital Signs - 24 hr 11/13/21 20:54 11/14/21 09:50 Temperature 97.8 F 97.2 F Pulse Rate 94 95 Respiratory Rate 18 Blood Pressure 164/88 H 130/76 Pulse Oximetry 99 96 BMI result Body Mass Index 31.2 Labs Results: 11/12/21 13:28 11/13/21 08:13 Labs: Laboratory Results - last 48 hr 11/12/21 11/13/21 11/13/21 21:54 08:13 08:13 Sodium 138 Potassium 3.8 Chloride 102 Carbon Dioxide 23 Anion Gap 17 BUN 24 H Creatinine 1.61 H Estim Creat Clear Calc 54.5 Estimated GFR 44 POC Glucose 139 H Fasting Glucose 115 H Estimat Average Glucose 117 Hemoglobin A1c % 5.7 Calcium 9.5 D Total Bilirubin 0.9 AST 30 ALT 35 Alkaline Phosphatase 37 L Total Protein 7.4 Albumin 4.4 Triglycerides 178 Cholesterol 147 LDL Cholesterol, Calc 87 HDL Cholesterol 25 Vitamin B12 Folate TSH 1.25 Free T4 0.87 Ur Random Sodium Urine Creatinine 11/13/21 11/13/21 11/13/21 08:13 13:28 15:55 Sodium Potassium Chloride Carbon Dioxide Anion Gap BUN Creatinine Estim Creat Clear Calc Estimated GFR POC Glucose 146 H Fasting Glucose Estimat Average Glucose Hemoglobin A1c % Calcium Total Bilirubin AST ALT Alkaline Phosphatase Total Protein Albumin Triglycerides Cholesterol LDL Cholesterol, Calc HDL Cholesterol Vitamin B12 449 Folate 7.7 TSH Free T4 Ur Random Sodium < 20.0 Urine Creatinine 11/13/21 15:55 Sodium Potassium Chloride Carbon Dioxide Anion Gap BUN Creatinine Estim Creat Clear Calc Estimated GFR POC Glucose Fasting Glucose Estimat Average Glucose Hemoglobin A1c % Calcium Total Bilirubin AST ALT Alkaline Phosphatase Total Protein Albumin Triglycerides Cholesterol LDL Cholesterol, Calc HDL Cholesterol Vitamin B12 Folate TSH Free T4 Ur Random Sodium Urine Creatinine 76.53 Imaging Radiology Impressions: ITS Impressions Abdomen/Pelvis CT 11/12/21 05:12 IMPRESSION: No acute findings identified in the chest, abdomen, or pelvis. Chronic appearing changes as noted above. Chest CT 11/12/21 05:12 IMPRESSION: No acute findings identified in the chest, abdomen, or pelvis. Chronic appearing changes as noted above. Medications Medications Current Medications Al Hydroxide/Mg Hydroxide (Magnesium Hydrox/Alum Hydrox 30 Ml Oral.Susp) 30 ml PO Q6H PRN PRN Reason: Heartburn/Nausea Last Admin: 11/13/21 18:01 Dose: 30 ml Documented by: Aspirin (Aspirin Enteric Coated 81 Mg Tablet.) 81 mg PO DAILY [facility] Last Admin: 11/14/21 09:52 Dose: 81 mg Documented by: Atorvastatin Calcium (Atorvastatin Calcium 20 Mg Tablet) 20 mg PO DAILY [facility] Last Admin: 11/14/21 09:52 Dose: 20 mg Documented by: Clonazepam (Clonazepam 1 Mg Tablet) 1 mg PO TID [facility] Last Admin: 11/14/21 14:37 Dose: 1 mg Documented by: Fenofibrate (Fenofibrate 160 Mg Tablet) 160 mg PO DAILY [facility] Last Admin: 11/14/21 09:52 Dose: 160 mg Documented by: Fluoxetine HCl (Fluoxetine Hcl 20 Mg Capsule) 60 mg PO DAILY [facility] Last Admin: 11/14/21 09:52 Dose: 60 mg Documented by: Hydroxyzine HCl (Hydroxyzine Hcl 25 Mg Tablet) 25 mg PO Q6H PRN PRN Reason: Anxiety Last Admin: 11/14/21 03:56 Dose: 25 mg Documented by: Lisinopril (Lisinopril 5 Mg Tablet) 5 mg PO DAILY [facility]; Protocol Last Admin: 11/14/21 09:52 Dose: 5 mg Documented by: Magnesium Hydroxide (Milk Of Magnesia 30 Ml Oral.Susp) 30 ml PO DAILY PRN PRN Reason: Constipation Nicotine (Nicotine 21 Mg Patch.Td24) 21 mg TRANSDERMA DAILY [facility] Last Admin: 11/14/21 09:52 Dose: 21 mg Documented by: Omeprazole (Omeprazole 20 Mg Capsule.Dr) 20 mg PO DAILY [facility] Last Admin: 11/14/21 09:52 Dose: 20 mg Documented by: Ondansetron HCl (Ondansetron Odt 8 Mg Tab.Rapdis) 8 mg TRANSLINGU Q8H PRN PRN Reason: nausea Last Admin: 11/13/21 21:01 Dose: 8 mg Documented by: Propranolol HCl (Propranolol Hcl 10 Mg Tablet) 10 mg PO BID PRN; Protocol PRN Reason: NEEDED Last Admin: 11/13/21 20:59 Dose: 10 mg Documented by: Trazodone HCl (Trazodone Hcl 50 Mg Tablet) 50 mg PO BEDTIME PRN PRN Reason: Insomnia Last Admin: 11/13/21 20:59 Dose: 50 mg Documented by: Trolamine Salicylate/Aloe Vera (Trolamine Salicylate 10%/Aloe Cream 35.4 Gm) 1 appl TOPICAL TID PRN PRN Reason: Musculoskeletal pain Last Admin: 11/14/21 04:12 Dose: 1 appl Documented by: Allergies Allergies Allergy/AdvReac Type Severity Reaction Status Date / Time codeine [CODEINE] AdvReac Severe Nausea Verified 11/14/21 06:18 Assessment & Plan Assessment & Plan (1) MDD (major depressive disorder), recurrent episode, moderate: Status: Acute Code(s): F33.1 - Major depressive disorder, recurrent, moderate (2) Alcohol use disorder, moderate, dependence: Status: Acute Code(s): F10.20 - Alcohol dependence, uncomplicated Plan * Quintin is a 61 y.o. Male who carries a dx of panic disorder, MDD recurrent. He presented to the [facility] ED complaining of constellation of physical symptoms including excessive sweating, vomiting, inability to retain food, polydipsia, overall muscle aches, mental fogginess, anxious mood. Precipitating factors include that his sister 6 weeks ago s/p complications from stroke, cancer and her birthday recently passed. He has hx of agitation, getting into physical altercations, anxiety, poor sleep, hypersomnia, depressed mood, and lack of self care. No hx of suicide attempts. Denies hx of self harm. Had been daily drinking 3-4 glasses of wine up until a week ago, denies hx of wi thdrawal seizures. Presented to the ED with RICADRO and reports having untreated T2DM. Pt has legal charges and court date pending, evicted from his apartment and staying in sister's condo. PLAN 1- Suspect constellation of physical symptoms including acute abdominal pain, excessive sweating, overall pain, vomiting, polydipsia, difficulty breathing, mental fogginess may be exacerbation of possible acute intermittent porphyria rather than panic attack. Ordered urine PBG. 2. continue current medications for symptoms of depression as medical work up completed. 3. obtain collateral information 4. aftercare planning. I spent ___25___ minutes with the patient and/or on the patient floor today, greater than?50% of which was spent counseling/coordinating care. Reason for contiued inpatient stay Substantial Risk for: harm to self
--- NOTE | 2021-11-13 14:42 | MHC.CLN ---
NUTRITION CONSULT FOR REPORTED WEIGHT LOSS. VISITED WITH PATIENT IN THE COMMON AREA. REPORTS FEELING NAUSEOUS AND NOT WANTING TO EAT. PER H&P, ANXIETY MAKES HIM NAUSEOUS AND ANOREXIC. WILLING TO TRY SUPPLEMENT. HAS DM CONTROLLED BY DIET. 11/13 A1c=5.7. REVIEW OF BLOOD SUGARS SHOWS ELEVATED NUMBERS FOR POC, RANDOM AND FASTING GLUCOSE DONE 11/12-. DIET=REGULAR. ADDING ENSURE TID TO PROVIDE 1050 KCAL, 60 G PROTEIN. ENSURE PROVIDES MORE CALORIES AND PROTEIN THAN GLUCERNA . REPORTS THAT HASN'T EATEN FOR ABOUT 1 WEEK PRIOR TO HOSPITALIZATION AND HAS LOST WEIGHT. ESTIMATED WEIGHT LOSS LESS THAN 5% X 1 WEEK. HAS DX CKD. FOLLOW FOR NEED FOR THERAPEUTIC DIET FOR DM AND CKD AND MAY NEED TO CHANGE SUPPLEMENT. FOLLOW INTAKE AND DIET TOLERANCE.
[2021-11-13 15:42] LABS: Blood Urea Nitrogen 24 mg/dL (9-16)
[2021-11-13 16:05] LABS: Calcium 9.5 mg/dL (8.4-10.2)
[2021-11-13 17:26] LABS: Creatinine Urine 76.53 mg/dL
[2021-11-13 17:39] LABS: Sodium Urine Random < 20.0 mmol/L
[2021-11-13] MEDS: Magnesium Hydrox/Alum Hydrox 30 ML ORAL.SUSP PO (18:01)
[2021-11-13 18:59] LABS: Folate 7.7 ng/mL (> or = 4.0); Vitamin B12 449 pg/mL (200-900)
[2021-11-13 20:54] VITALS: BP 164/88; PULSE 94; TEMP 36.6; O2SAT 99
[2021-11-13] MEDS: traZODone HCL 50 MG TABLET PO (20:59)
[2021-11-13] MEDS: Propranolol HCL 10 MG TABLET PO (20:59)
[2021-11-13] MEDS: Ondansetron ODT 8 MG TAB.RAPDIS TRANSLINGU (21:01)
[2021-11-14] MEDS: hydrOXYzine HCL 25 MG TABLET PO (03:56)
--- NOTE | 2021-11-14 09:11 | HO.PSYCHPN ---
Subjective Subjective Date of Service: 11/14/21 Reason For Visit: SI Subjective Notes: Conditional Voluntary Interim History: Pt slightly more visible today. He reports less polydipsia. He reports less overall pain. He also reports less nausea. He continues to endorse depressed mood, feeling hopeless, anhedonia. He reports passive SI. He reports he will not use alcohol anymore. We discussed concerns about his being on fairly high dose of clonazepam while also using alcohol. Collateral info from sister who reports he has been very depressed for several years, but she has not seen him as depressed as he is now. She worries at this time about his safety. Medication Compliance: Yes Side effects from medications: No Attending Groups: No Review of Systems Review of Systems CVS: No c/o chest pain, palpitations, no SOB EMERGENCY MEDICAL TECH: No c/o dizziness, headache GI: No c/o Nausea, Vomiting, diarrhea, constipation or heartburn Yes all other systems are reviewed and are negative Mental Status Exam Mental Status Exam Narrative: A&O. Large frame, in hospital attire, just showered. Good/ intense eye contact, attentive. No Tics or Tremors. No abnormal involuntary movements. Calm, cooperative, engaged. Non-pressured speech, spontaneous with regular rate and rhythm, normal volume and prosody. No prolonged speech latency or dysarthria. Mood is ?depressed, anxious,? affect is anxious, tearful. passive SI. No SIB/HI upon inquiry. Denies A/VH or delusional thought content. Thoughts are somewhat slowed, says he has had worsening concentration and forgetfulness. Insight/ Judgment fair and adequate. Diagnostics Vital Signs (24Hr): Vital Signs - 24 hr 11/15/21 10:20 11/15/21 18:00 Temperature 97.6 F 98.6 F Pulse Rate 92 100 Respiratory Rate 18 18 Blood Pressure 131/91 H 122/79 Pulse Oximetry 98 98 BMI result Body Mass Index 31.2 Labs Results: 11/12/21 13:28 11/15/21 08:30 Labs: Laboratory Results - last 48 hr 11/15/21 08:30 Sodium 138 Potassium 3.5 Chloride 98 Carbon Dioxide 32 H Anion Gap 12 BUN 20 H Creatinine 1.65 H Estim Creat Clear Calc 52.7 Estimated GFR 43 Random Glucose 92 Calcium 9.3 Total Bilirubin 0.8 AST 41 H ALT 49 H Alkaline Phosphatase 35 L Total Protein 6.8 Albumin 4.1 Imaging Radiology Impressions: ITS Impressions Abdomen/Pelvis CT 11/12/21 05:12 IMPRESSION: No acute findings identified in the chest, abdomen, or pelvis. Chronic appearing changes as noted above. Chest CT 11/12/21 05:12 IMPRESSION: No acute findings identified in the chest, abdomen, or pelvis. Chronic appearing changes as noted above. Medications Medications Current Medications Acetaminophen (Acetaminophen 325 Mg Tablet) 650 mg PO Q6H PRN PRN Reason: Pain, Moderate (Pain Scale 4-6 Al Hydroxide/Mg Hydroxide (Magnesium Hydrox/Alum Hydrox 30 Ml Oral.Susp) 30 ml PO Q6H PRN PRN Reason: Heartburn/Nausea Last Admin: 11/13/21 18:01 Dose: 30 ml Documented by: Aspirin (Aspirin Enteric Coated 81 Mg Tablet.) 81 mg PO DAILY [facility] Last Admin: 11/15/21 10:22 Dose: 81 mg Documented by: Atorvastatin Calcium (Atorvastatin Calcium 20 Mg Tablet) 20 mg PO DAILY [facility] Last Admin: 11/15/21 10:22 Dose: 20 mg Documented by: Clonazepam (Clonazepam 1 Mg Tablet) 1 mg PO BID [facility] Last Admin: 11/15/21 21:14 Dose: 1 mg Documented by: Clonazepam (Clonazepam 0.5 Mg Tablet) 0.5 mg PO DAILY@1500 [facility] Fenofibrate (Fenofibrate 160 Mg Tablet) 160 mg PO DAILY [facility] Last Admin: 11/15/21 10:22 Dose: 160 mg Documented by: Hydroxyzine HCl (Hydroxyzine Hcl 25 Mg Tablet) 25 mg PO Q6H PRN PRN Reason: Anxiety Last Admin: 11/14/21 03:56 Dose: 25 mg Documented by: Lisinopril (Lisinopril 5 Mg Tablet) 5 mg PO DAILY [facility]; Protocol Last Admin: 11/15/21 10:22 Dose: 5 mg Documented by: Magnesium Hydroxide (Milk Of Magnesia 30 Ml Oral.Susp) 30 ml PO DAILY PRN PRN Reason: Constipation Nicotine (Nicotine 21 Mg Patch.Td24) 21 mg TRANSDERMA DAILY [facility] Last Admin: 11/15/21 10:21 Dose: 21 mg Documented by: Omeprazole (Omeprazole 20 Mg Capsule.) 20 mg PO DAILY [facility] Last Admin: 11/15/21 10:22 Dose: 20 mg Documented by: Ondansetron HCl (Ondansetron Odt 8 Mg Tab.Rapdis) 8 mg TRANSLINGU Q8H PRN PRN Reason: nausea Last Admin: 11/15/21 10:27 Dose: 8 mg Documented by: Propranolol HCl (Propranolol Hcl 10 Mg Tablet) 10 mg PO BID PRN; Protocol PRN Reason: NEEDED Last Admin: 11/15/21 21:26 Dose: 10 mg Documented by: Trazodone HCl (Trazodone Hcl 50 Mg Tablet) 50 mg PO BEDTIME PRN PRN Reason: Insomnia Last Admin: 11/13/21 20:59 Dose: 50 mg Documented by: Trolamine Salicylate/Aloe Vera (Trolamine Salicylate 10%/Aloe Cream 35.4 Gm) 1 appl TOPICAL TID PRN PRN Reason: Musculoskeletal pain Last Admin: 11/14/21 04:12 Dose: 1 appl Documented by: Venlafaxine HCl (Venlafaxine Hcl Er 37.5 Mg Cap.Er.24h) 37.5 mg PO DAILY [facility] Allergies Allergies Allergy/AdvReac Type Severity Reaction Status Date / Time codeine [CODEINE] AdvReac Severe Nausea Verified 11/14/21 06:18 Assessment & Plan Assessment & Plan (1) MDD (major depressive disorder), recurrent episode, moderate: Status: Acute Code(s): F33.1 - Major depressive disorder, recurrent, moderate (2) Alcohol use disorder, moderate, dependence: Status: Acute Code(s): F10.20 - Alcohol dependence, uncomplicated Plan Quintin is a 61 y.o. Male who carries a dx of panic disorder, MDD recurrent. He presented to the [facility] ED complaining of constellation of physical symptoms including excessive sweating, vomiting, inability to retain food, polydipsia, overall muscle aches, mental fogginess, anxious mood. Precipitating factors include that his sister 6 weeks ago s/p complications from stroke, cancer and her birthday recently passed. He has hx of agitation, getting into physical altercations, anxiety, poor sleep, hypersomnia, depressed mood, and lack of self care. No hx of suicide attempts. Denies hx of self harm. Had been daily drinking 3-4 glasses of wine up until a week ago, denies hx of withdrawal seizures. Presented to the ED with RICARDO and reports having untreated T2DM. Pt has legal charges and court date pending, evicted from his apartment and staying in sister's condo. PLAN 1- Suspect constellation of physical symptoms including acute abdominal pain, excessive sweating, overall pain, vomiting, polydipsia, difficulty breathing, mental fogginess may be exacerbation of possible acute intermittent porphyria rather than panic attack. Ordered urine PBG. other medical work up completed in ED- unremarkable including abdominal image. 2. continue current medications- discussed switching prozac for effexor. lowering, if possible tapering him off clonazepam. 3. obtain collateral information 4. aftercare planning. I spent __25____ minutes with the patient and/or on the patient floor today, greater than?50% of which was spent counseling/coordinating care. Reason for contiued inpatient stay Substantial Risk for: harm to self
[2021-11-14 09:50] VITALS: BP 130/76; PULSE 95; RESP 18; TEMP 36.2; O2SAT 96
[2021-11-14] MEDS: Nicotine 21 MG PATCH.TD24 TRANSDERMA (09:52)
[2021-11-14] MEDS: Omeprazole 20 MG CAPSULE.DR PO (09:52)
[2021-11-14] MEDS: clonazePAM 1 MG TABLET PO ×3 (09:52→21:35)
[2021-11-14] MEDS: Atorvastatin Calcium 20 MG TABLET PO (09:52)
[2021-11-14] MEDS: lisinopriL 5 MG TABLET PO (09:52)
[2021-11-14] MEDS: Aspirin Enteric Coated 81 MG TABLET.DR PO (09:52)
[2021-11-14] MEDS: Fenofibrate 160 MG TABLET PO (09:52)
[2021-11-14] MEDS: FLUoxetine HCl 20 MG CAPSULE 60 MG PO (09:52)
[2021-11-14 14:21] VITALS: BMI 31.2
[2021-11-14 21:30] VITALS: BP 142/85; PULSE 108; TEMP 36.8; O2SAT 97
[2021-11-14] MEDS: Propranolol HCL 10 MG TABLET PO (21:35)
[2021-11-14] MEDS: Ondansetron ODT 8 MG TAB.RAPDIS TRANSLINGU (21:35)
[2021-11-15 09:05] LABS: Alanine Aminotransferase 49 U/L (0-40); Albumin Level 4.1 g/dL (3.5-5.0); Alkaline Phosphatase 35 U/L (39-117); Anion Gap 12 (12-20); Aspartate Amino Transferase 41 U/L (5-37); Bilirubin Total 0.8 mg/dL (0.0-1.0); Blood Urea Nitrogen 20 mg/dL (9-16); Calcium 9.3 mg/dL (8.4-10.2); Carbon Dioxide 32 mmol/L (22-29); Chloride 98 mmol/L (96-108); Creatinine Clr Calc Pharmacy 52.7; Estimated Glomerular Filt Rate 43; Glucose Random 92 mg/dL (60-115); Potassium 3.5 mmol/L (3.3-5.1); Sodium 138 mmol/L (135-145); Total Protein 6.8 g/dL (6.5-8.0)
--- NOTE | 2021-11-15 09:18 | P.PNPSI_ITS ---
Subjective Subjective Date of Service: 11/15/21 Reason For Visit: SI Subjective Notes: Conditional Voluntary Interim History: Pt reports feeling depressed, hopeless, tired, weak. He continues to report passive SI. He reports less polydipsia, less nausea but still has some which he states is bothersome. Pt reports he was able to eat a little bit more. He has been mostly in bed. We discussed switching porzac to venlafaxine and slowly decreasing clonazepam. He is in agreement. Medication Compliance: Yes Side effects from medications: No Review of Systems Review of Systems CVS: No c/o chest pain, palpitations, no SOB NEWSCAST DIRECTOR: No c/o dizziness, headache GI: No c/o Nausea, Vomiting, diarrhea, constipation or heartburn Yes all other systems are reviewed and are negative Mental Status Exam Mental Status Exam Narrative: A&O. Large frame, in hospital attire, just showered. Good/ intense eye contact, attentive. No Tics or Tremors. No abnormal involuntary movements. Calm, cooperative, engaged. Non-pressured speech, spontaneous with regular rate and rhythm, normal volume and prosody. No prolonged speech latency or dysarthria. Mood is ?depressed, anxious,? affect is anxious, tearful. passive SI. No SIB/HI upon inquiry. Denies A/VH or delusional thought content. Thoughts are somewhat slowed, says he has had worsening concentration and forgetfulness. Insight/ Judgment fair and adequate. Diagnostics Vital Signs (24Hr): Vital Signs - 24 hr 11/15/21 10:20 11/15/21 18:00 Temperature 97.6 F 98.6 F Pulse Rate 92 100 Respiratory Rate 18 18 Blood Pressure 131/91 H 122/79 Pulse Oximetry 98 98 BMI result Body Mass Index 31.2 Labs Results: 11/12/21 13:28 11/15/21 08:30 Labs: Laboratory Results - last 48 hr 11/15/21 08:30 Sodium 138 Potassium 3.5 Chloride 98 Carbon Dioxide 32 H Anion Gap 12 BUN 20 H Creatinine 1.65 H Estim Creat Clear Calc 52.7 Estimated GFR 43 Random Glucose 92 Calcium 9.3 Total Bilirubin 0.8 AST 41 H ALT 49 H Alkaline Phosphatase 35 L Total Protein 6.8 Albumin 4.1 Imaging Radiology Impressions: ITS Impressions Abdomen/Pelvis CT 11/12/21 05:12 IMPRESSION: No acute findings identified in the chest, abdomen, or pelvis. Chronic appearing changes as noted above. Chest CT 11/12/21 05:12 IMPRESSION: No acute findings identified in the chest, abdomen, or pelvis. Chronic appearing changes as noted above. Medications Medications Current Medications Acetaminophen (Acetaminophen 325 Mg Tablet) 650 mg PO Q6H PRN PRN Reason: Pain, Moderate (Pain Scale 4-6 Al Hydroxide/Mg Hydroxide (Magnesium Hydrox/Alum Hydrox 30 Ml Oral.Susp) 30 ml PO Q6H PRN PRN Reason: Heartburn/Nausea Last Admin: 11/13/21 18:01 Dose: 30 ml Documented by: Aspirin (Aspirin Enteric Coated 81 Mg Tablet.) 81 mg PO DAILY [facility] Last Admin: 11/15/21 10:22 Dose: 81 mg Documented by: Atorvastatin Calcium (Atorvastatin Calcium 20 Mg Tablet) 20 mg PO DAILY [facility] Last Admin: 11/15/21 10:22 Dose: 20 mg Documented by: Clonazepam (Clonazepam 1 Mg Tablet) 1 mg PO BID [facility] Last Admin: 11/15/21 21:14 Dose: 1 mg Documented by: Clonazepam (Clonazepam 0.5 Mg Tablet) 0.5 mg PO DAILY@1500 [facility] Fenofibrate (Fenofibrate 160 Mg Tablet) 160 mg PO DAILY [facility] Last Admin: 11/15/21 10:22 Dose: 160 mg Documented by: Hydroxyzine HCl (Hydroxyzine Hcl 25 Mg Tablet) 25 mg PO Q6H PRN PRN Reason: Anxiety Last Admin: 11/14/21 03:56 Dose: 25 mg Documented by: Lisinopril (Lisinopril 5 Mg Tablet) 5 mg PO DAILY [facility]; Protocol Last Admin: 11/15/21 10:22 Dose: 5 mg Documented by: Magnesium Hydroxide (Milk Of Magnesia 30 Ml Oral.Susp) 30 ml PO DAILY PRN PRN Reason: Constipation Nicotine (Nicotine 21 Mg Patch.Td24) 21 mg TRANSDERMA DAILY [facility] Last Admin: 11/15/21 10:21 Dose: 21 mg Documented by: Omeprazole (Omeprazole 20 Mg Capsule.) 20 mg PO DAILY [facility] Last Admin: 11/15/21 10:22 Dose: 20 mg Documented by: Ondansetron HCl (Ondansetron Odt 8 Mg Tab.Rapdis) 8 mg TRANSLINGU Q8H PRN PRN Reason: nausea Last Admin: 11/15/21 10:27 Dose: 8 mg Documented by: Propranolol HCl (Propranolol Hcl 10 Mg Tablet) 10 mg PO BID PRN; Protocol PRN Reason: NEEDED Last Admin: 11/15/21 21:26 Dose: 10 mg Documented by: Trazodone HCl (Trazodone Hcl 50 Mg Tablet) 50 mg PO BEDTIME PRN PRN Reason: Insomnia Last Admin: 11/13/21 20:59 Dose: 50 mg Documented by: Trolamine Salicylate/Aloe Vera (Trolamine Salicylate 10%/Aloe Cream 35.4 Gm) 1 appl TOPICAL TID PRN PRN Reason: Musculoskeletal pain Last Admin: 11/14/21 04:12 Dose: 1 appl Documented by: Venlafaxine HCl (Venlafaxine Hcl Er 37.5 Mg Cap.Er.24h) 37.5 mg PO DAILY [facility] Allergies Allergies Allergy/AdvReac Type Severity Reaction Status Date / Time codeine [CODEINE] AdvReac Severe Nausea Verified 11/14/21 06:18 Assessment & Plan Assessment & Plan (1) MDD (major depressive disorder), recurrent episode, moderate: Status: Acute Code(s): F33.1 - Major depressive disorder, recurrent, moderate (2) Alcohol use disorder, moderate, dependence: Status: Acute Code(s): F10.20 - Alcohol dependence, uncomplicated Plan * Quintin is a 61 y.o. Male who carries a dx of panic disorder, MDD recurrent. He presented to the [facility] [place] ED complaining of constellation of physical symptoms including excessive sweating, vomiting, inability to retain food, polydipsia, overall muscle aches, mental fogginess, anxious mood. Precipitating factors include that his sister 6 weeks ago s/p complications from stroke, cancer and her birthday recently passed. He has hx of agitation, getting into phys ical altercations, anxiety, poor sleep, hypersomnia, depressed mood, and lack of self care. No hx of suicide attempts. Denies hx of self harm. Had been daily drinking 3-4 glasses of wine up until a week ago, denies hx of withdrawal seizures. Presented to the ED with RICARDO and reports having untreated T2DM. Pt has legal charges and court date pending, evicted from his apartment and staying in sister's condo. PLAN 1- Suspect constellation of physical symptoms including acute abdominal pain, excessive sweating, overall pain, vomiting, polydipsia, difficulty breathing, mental fogginess may be exacerbation of possible acute intermittent porphyria rather than panic attack. Ordered urine PBG (pending results). other medical work up completed in ED- unremarkable including abdominal/pelvic CT. 2. Start Effexor 37.5mg po daily on 11/16, lower prozac 20mg po daily x 1, then d/c, titrate Effexor. Clonazepam lower from 1mg po TID to 1mg po BID and 0.5mg po 1500. 3. obtain collateral information 4. aftercare planning. I spent minutes with the patient and/or on the patient floor today, greater than?50% of which was spent counseling/coordinating care. Reason for contiued inpatient stay Substantial Risk for: harm to self and inability to function
[2021-11-15 10:20] VITALS: BP 131/91; PULSE 92; RESP 18; TEMP 36.4; O2SAT 98
[2021-11-15] MEDS: Nicotine 21 MG PATCH.TD24 TRANSDERMA (10:21)
[2021-11-15] MEDS: lisinopriL 5 MG TABLET PO (10:22)
[2021-11-15] MEDS: Fenofibrate 160 MG TABLET PO (10:22)
[2021-11-15] MEDS: FLUoxetine HCl 20 MG CAPSULE 60 MG PO (10:22)
[2021-11-15] MEDS: Omeprazole 20 MG CAPSULE.DR PO (10:22)
[2021-11-15] MEDS: clonazePAM 1 MG TABLET PO ×3 (10:22→21:14)
[2021-11-15] MEDS: Aspirin Enteric Coated 81 MG TABLET.DR PO (10:22)
[2021-11-15] MEDS: Atorvastatin Calcium 20 MG TABLET PO (10:22)
[2021-11-15] MEDS: Ondansetron ODT 8 MG TAB.RAPDIS TRANSLINGU (10:27)
--- NOTE | 2021-11-15 15:19 | MHC.CLN ---
NUTRITION INTAKE APPEARS IMPROVED SINCE ADMISSION. A1c 11/13=5.7 SHOWING GOOD BLOOD GLUCOSE CONTROL. CONTINUE REGULAR DIET WITH ENSURE TID.
[2021-11-15 18:00] VITALS: BP 122/79; PULSE 100; RESP 18; TEMP 37; O2SAT 98
[2021-11-15] MEDS: Propranolol HCL 10 MG TABLET PO (21:26)
[2021-11-16 09:52] VITALS: BP 186/86; PULSE 83; RESP 16; TEMP 36.5; O2SAT 95
[2021-11-16] MEDS: Nicotine 21 MG PATCH.TD24 TRANSDERMA (09:53)
[2021-11-16] MEDS: clonazePAM 1 MG TABLET PO ×2 (09:54→22:30)
[2021-11-16] MEDS: Omeprazole 20 MG CAPSULE.DR PO (09:54)
[2021-11-16] MEDS: lisinopriL 5 MG TABLET PO (09:54)
[2021-11-16] MEDS: Fenofibrate 160 MG TABLET PO (09:54)
[2021-11-16] MEDS: FLUoxetine HCl 20 MG CAPSULE PO (09:55)
[2021-11-16] MEDS: Venlafaxine HCl ER 37.5 MG CAP.ER.24H PO (09:55)
[2021-11-16] MEDS: Atorvastatin Calcium 20 MG TABLET PO (09:55)
[2021-11-16] MEDS: Aspirin Enteric Coated 81 MG TABLET.DR PO (09:55)
[2021-11-16] MEDS: Ondansetron ODT 8 MG TAB.RAPDIS TRANSLINGU (10:00)
[2021-11-16] MEDS: clonazePAM 0.5 MG TABLET PO (15:46)
--- NOTE | 2021-11-16 17:39 | HO.PSYCHPN ---
Subjective Subjective Date of Service: 11/16/21 Reason For Visit: SI Interim History: Pt reports feeling depressed, hopeless, tired, weak. He continues to report passive SI. He reports less polydipsia, less nausea but still has some which he states is bothersome. Pt reports he was able to eat a little bit more. He has been mostly in bed. We discussed switching porzac to venlafaxine and slowly decreasing clonazepam. He is in agreement. 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 Large frame, in hospital attire, just showered. Good/ intense eye contact, attentive. No Tics or Tremors. No abnormal involuntary movements. Calm, cooperative, engaged. Non-pressured speech, spontaneous with regular rate and rhythm, normal volume and prosody. No prolonged speech latency or dysarthria. Mood is ?depressed, anxious,? affect is anxious, tearful. passive SI. No SIB/HI upon inquiry. Denies A/VH or delusional thought content. Thoughts are somewhat slowed, says he has had worsening concentration and forgetfulness. Insight/ Judgment fair and adequate. Diagnostics Vital Signs (24Hr): Vital Signs - 24 hr 11/16/21 09:52 11/16/21 22:33 Temperature 97.7 F 97.3 F Pulse Rate 83 78 Respiratory Rate 16 16 Blood Pressure 186/86 H 118/71 Pulse Oximetry 95 99 BMI result Body Mass Index 31.2 Labs Results: 11/12/21 13:28 11/15/21 08:30 Labs: Laboratory Results - last 48 hr 11/15/21 08:30 Sodium 138 Potassium 3.5 Chloride 98 Carbon Dioxide 32 H Anion Gap 12 BUN 20 H Creatinine 1.65 H Estim Creat Clear Calc 52.7 Estimated GFR 43 Random Glucose 92 Calcium 9.3 Total Bilirubin 0.8 AST 41 H ALT 49 H Alkaline Phosphatase 35 L Total Protein 6.8 Albumin 4.1 Imaging Radiology Impressions: ITS Impressions Abdomen/Pelvis CT 11/12/21 05:12 IMPRESSION: No acute findings identified in the chest, abdomen, or pelvis. Chronic appearing changes as noted above. Chest CT 11/12/21 05:12 IMPRESSION: No acute findings identified in the chest, abdomen, or pelvis. Chronic appearing changes as noted above. Medications Medications Current Medications Acetaminophen (Acetaminophen 325 Mg Tablet) 650 mg PO Q6H PRN PRN Reason: Pain, Moderate (Pain Scale 4-6 Al Hydroxide/Mg Hydroxide (Magnesium Hydrox/Alum Hydrox 30 Ml Oral.Susp) 30 ml PO Q6H PRN PRN Reason: Heartburn/Nausea Last Admin: 11/13/21 18:01 Dose: 30 ml Documented by: Aspirin (Aspirin Enteric Coated 81 Mg Tablet.) 81 mg PO DAILY [facility] Last Admin: 11/16/21 09:55 Dose: 81 mg Documented by: Atorvastatin Calcium (Atorvastatin Calcium 20 Mg Tablet) 20 mg PO DAILY [facility] Last Admin: 11/16/21 09:55 Dose: 20 mg Documented by: Clonazepam (Clonazepam 1 Mg Tablet) 1 mg PO BID [facility] Last Admin: 11/16/21 22:30 Dose: 1 mg Documented by: Clonazepam (Clonazepam 0.5 Mg Tablet) 0.5 mg PO DAILY@1500 [facility] Last Admin: 11/16/21 15:46 Dose: 0.5 mg Documented by: Fenofibrate (Fenofibrate 160 Mg Tablet) 160 mg PO DAILY [facility] Last Admin: 11/16/21 09:54 Dose: 160 mg Documented by: Hydroxyzine HCl (Hydroxyzine Hcl 25 Mg Tablet) 25 mg PO Q6H PRN PRN Reason: Anxiety Last Admin: 11/14/21 03:56 Dose: 25 mg Documented by: Lisinopril (Lisinopril 5 Mg Tablet) 5 mg PO DAILY [facility]; Protocol Last Admin: 11/16/21 09:54 Dose: 5 mg Documented by: Magnesium Hydroxide (Milk Of Magnesia 30 Ml Oral.Susp) 30 ml PO DAILY PRN PRN Reason: Constipation Nicotine (Nicotine 21 Mg Patch.Td24) 21 mg TRANSDERMA DAILY [facility] Last Admin: 11/16/21 09:53 Dose: 21 mg Documented by: Omeprazole (Omeprazole 20 Mg Capsule.) 20 mg PO DAILY [facility] Last Admin: 11/16/21 09:54 Dose: 20 mg Documented by: Ondansetron HCl (Ondansetron Odt 8 Mg Tab.Rapdis) 8 mg TRANSLINGU Q8H PRN PRN Reason: nausea Last Admin: 11/16/21 10:00 Dose: 8 mg Documented by: Propranolol HCl (Propranolol Hcl 10 Mg Tablet) 10 mg PO BID PRN; Protocol PRN Reason: NEEDED Last Admin: 11/16/21 22:30 Dose: 10 mg Documented by: Trazodone HCl (Trazodone Hcl 50 Mg Tablet) 50 mg PO BEDTIME PRN PRN Reason: Insomnia Last Admin: 11/13/21 20:59 Dose: 50 mg Documented by: Trolamine Salicylate/Aloe Vera (Trolamine Salicylate 10%/Aloe Cream 35.4 Gm) 1 appl TOPICAL TID PRN PRN Reason: Musculoskeletal pain Last Admin: 11/14/21 04:12 Dose: 1 appl Documented by: Venlafaxine HCl (Venlafaxine Hcl Er 37.5 Mg Cap.Er.24h) 37.5 mg PO DAILY [facility] Last Admin: 11/16/21 09:55 Dose: 37.5 mg Documented by: Allergies Allergies Allergy/AdvReac Type Severity Reaction Status Date / Time codeine [CODEINE] AdvReac Severe Nausea Verified 11/14/21 06:18 Assessment & Plan Assessment & Plan (1) MDD (major depressive disorder), recurrent episode, moderate: Status: Acute Code(s): F33.1 - Major depressive disorder, recurrent, moderate (2) Alcohol use disorder, moderate, dependence: Status: Acute Code(s): F10.20 - Alcohol dependence, uncomplicated Plan Quintin is a 61 y.o. Male who carries a dx of panic disorder, MDD recurrent. He presented to the [facility] ED complaining of constellation of physical symptoms including excessive sweating, vomiting, inability to retain food, polydipsia, overall muscle aches, mental fogginess, anxious mood. Precipitating factors include that his sister 6 weeks ago s/p complications from stroke, cancer and her birthday recently passed. He has hx of agitation, getting into physical altercations, anxiety, poor sleep, hypersomnia, depressed mood, and lack of self care. No hx of suicide attempts. Denies hx of self harm. Had been daily drinking 3-4 glasses of wine up until a week ago, denies hx of withdrawal seizures. Presented to the ED with RICARDO and reports having untreated T2DM. Pt has legal charges and court date pending, evicted from his apartment and staying in sister's condo. PLAN 1- Suspect constellation of physical symptoms including acute abdominal pain, excessive sweating, overall pain, vomiting, polydipsia, difficulty breathing, mental fogginess may be exacerbation of possible acute intermittent porphyria rather than panic attack. Ordered urine PBG (pending results). other medical work up completed in ED- unremarkable including abdominal/pelvic CT. 2. Start Effexor 37.5mg po daily on 11/16, lower prozac 20mg po daily x 1, then d/c, titrate Effexor. Clonazepam lower from 1mg po TID to 1mg po BID and 0.5mg po 1500. 3. obtain collateral information 4. aftercare planning. I spent minutes with the patient and/or on the patient floor today, greater than?50% of which was spent counseling/coordinating care. Reason for contiued inpatient stay Substantial Risk for: harm to self and inability to function
[2021-11-16] MEDS: Propranolol HCL 10 MG TABLET PO (22:30)
[2021-11-16 22:33] VITALS: BP 118/71; PULSE 78; RESP 16; TEMP 36.3; O2SAT 99
[2021-11-17 08:15] VITALS: BP 125/72; PULSE 89; RESP 18; TEMP 36.6; O2SAT 95
[2021-11-17] MEDS: lisinopriL 5 MG TABLET PO (08:27)
[2021-11-17] MEDS: Atorvastatin Calcium 20 MG TABLET PO (08:27)
[2021-11-17] MEDS: Aspirin Enteric Coated 81 MG TABLET.DR PO (08:27)
[2021-11-17] MEDS: Venlafaxine HCl ER 37.5 MG CAP.ER.24H PO (08:27)
[2021-11-17] MEDS: clonazePAM 1 MG TABLET PO ×2 (08:27→20:21)
[2021-11-17] MEDS: Fenofibrate 160 MG TABLET PO (08:27)
[2021-11-17] MEDS: Nicotine 21 MG PATCH.TD24 TRANSDERMA (08:29)
[2021-11-17] MEDS: Omeprazole 20 MG CAPSULE.DR PO (08:29)
--- NOTE | 2021-11-17 12:02 | P.PNPSI_ITS ---
Subjective Subjective Date of Service: 11/17/21 Reason For Visit: SI Interim History: Patient says I am feeling very good today. He feels improved with his medication changes. He has no side effects Reports his cholesterol in July when he was at PCP's office was 800 and he was started on medications. Wondering what it is now. Will check. 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 Large frame, in hospital attire, just showered. Good/ intense eye contact, attentive. No Tics or Tremors. No abnormal involuntary movements. Calm, cooperative, engaged. Non-pressured speech, spontaneous with regular rate and rhythm, normal volume and prosody. No prolonged speech latency or dysarthria. Mood is ?depressed, anxious,? affect is anxious, tearful. passive SI. No SIB/HI upon inquiry. Denies A/VH or delusional thought content. TCircumstantial about his GI symptoms. Insight/ Judgment fair and adequate. Diagnostics Vital Signs (24Hr): Vital Signs - 24 hr 11/16/21 22:33 11/17/21 08:15 Temperature 97.3 F 97.9 F Pulse Rate 78 89 Respiratory Rate 16 18 Blood Pressure 118/71 125/72 Pulse Oximetry 99 95 BMI result Body Mass Index 31.2 Labs Results: 11/12/21 13:28 11/15/21 08:30 Imaging Radiology Impressions: ITS Impressions Abdomen/Pelvis CT 11/12/21 05:12 IMPRESSION: No acute findings identified in the chest, abdomen, or pelvis. Chronic appearing changes as noted above. Chest CT 11/12/21 05:12 IMPRESSION: No acute findings identified in the chest, abdomen, or pelvis. Chronic appearing changes as noted above. Medications Medications Current Medications Acetaminophen (Acetaminophen 325 Mg Tablet) 650 mg PO Q6H PRN PRN Reason: Pain, Moderate (Pain Scale 4-6 Al Hydroxide/Mg Hydroxide (Magnesium Hydrox/Alum Hydrox 30 Ml Oral.Susp) 30 ml PO Q6H PRN PRN Reason: Heartburn/Nausea Last Admin: 11/13/21 18:01 Dose: 30 ml Documented by: Aspirin (Aspirin Enteric Coated 81 Mg Tablet.) 81 mg PO DAILY [facility] Last Admin: 11/17/21 08:27 Dose: 81 mg Documented by: Atorvastatin Calcium (Atorvastatin Calcium 20 Mg Tablet) 20 mg PO DAILY [facility] Last Admin: 11/17/21 08:27 Dose: 20 mg Documented by: Clonazepam (Clonazepam 1 Mg Tablet) 1 mg PO BID [facility] Last Admin: 11/17/21 08:27 Dose: 1 mg Documented by: Clonazepam (Clonazepam 0.5 Mg Tablet) 0.5 mg PO DAILY@1500 [facility] Last Admin: 11/16/21 15:46 Dose: 0.5 mg Documented by: Fenofibrate (Fenofibrate 160 Mg Tablet) 160 mg PO DAILY [facility] Last Admin: 11/17/21 08:27 Dose: 160 mg Documented by: Hydroxyzine HCl (Hydroxyzine Hcl 25 Mg Tablet) 25 mg PO Q6H PRN PRN Reason: Anxiety Last Admin: 11/14/21 03:56 Dose: 25 mg Documented by: Lisinopril (Lisinopril 5 Mg Tablet) 5 mg PO DAILY [facility]; Protocol Last Admin: 11/17/21 08:27 Dose: 5 mg Documented by: Magnesium Hydroxide (Milk Of Magnesia 30 Ml Oral.Susp) 30 ml PO DAILY PRN PRN Reason: Constipation Nicotine (Nicotine 21 Mg Patch.Td24) 21 mg TRANSDERMA DAILY [facility] Last Admin: 11/17/21 08:29 Dose: 21 mg Documented by: Omeprazole (Omeprazole 20 Mg Capsule.) 20 mg PO DAILY [facility] Last Admin: 11/17/21 08:29 Dose: 20 mg Documented by: Ondansetron HCl (Ondansetron Odt 8 Mg Tab.Rapdis) 8 mg TRANSLINGU Q8H PRN PRN Reason: nausea Last Admin: 11/16/21 10:00 Dose: 8 mg Documented by: Propranolol HCl (Propranolol Hcl 10 Mg Tablet) 10 mg PO BID PRN; Protocol PRN Reason: NEEDED Last Admin: 11/16/21 22:30 Dose: 10 mg Documented by: Trazodone HCl (Trazodone Hcl 50 Mg Tablet) 50 mg PO BEDTIME PRN PRN Reason: Insomnia Last Admin: 11/13/21 20:59 Dose: 50 mg Documented by: Trolamine Salicylate/Aloe Vera (Trolamine Salicylate 10%/Aloe Cream 35.4 Gm) 1 appl TOPICAL TID PRN PRN Reason: Musculoskeletal pain Last Admin: 11/14/21 04:12 Dose: 1 appl Documented by: Venlafaxine HCl (Venlafaxine Hcl Er 37.5 Mg Cap.Er.24h) 37.5 mg PO DAILY [facility] Last Admin: 11/17/21 08:27 Dose: 37.5 mg Documented by: Allergies Allergies Allergy/AdvReac Type Severity Reaction Status Date / Time codeine [CODEINE] AdvReac Severe Nausea Verified 11/14/21 06:18 Assessment & Plan Assessment & Plan (1) MDD (major depressive disorder), recurrent episode, moderate: Status: Acute Code(s): F33.1 - Major depressive disorder, recurrent, moderate (2) Alcohol use disorder, moderate, dependence: Status: Acute Code(s): F10.20 - Alcohol dependence, uncomplicated Plan * Quintin is a 61 y.o. Male who carries a dx of panic disorder, MDD recurrent. He presented to the [facility] ED complaining of constellation of physical symptoms including excessive sweating, vomiting, inability to retain food, polydipsia, overall muscle aches, mental fogginess, anxious mood. Precipitating factors include that his sister 6 weeks ago s/p complications from stroke, cancer and her birthday recently passed. He has hx of agitation, getting into physical altercations, anxiety, poor sleep, hypersomnia, depressed mood, and lack of self care. No hx of suicide attempts. Denies hx of self harm. Had been daily drinking 3-4 glasses of wine up until a week ago, denies hx of withdrawal seizures. Presented to the ED with RICARDO and reports having untreated T2DM. Pt has legal charges and court date pending, evicted from his apartment and staying in sister's condo. PLAN 1- Suspect constellation of physical symptoms including acute abdominal pain, excessive sweating, overall pain, vomiting, polydipsia, difficulty breathing, mental fogginess may be exacerbation of possible acute intermittent porphyria rather than panic attack. Ordered urine PBG (pending results). other medical work up completed in ED- unremarkable including abdominal/pelvic CT. 2. Start Effexor 37.5mg po daily on 11/16, lower prozac 20mg po daily x 1, then d /c, titrate Effexor. Clonazepam lower from 1mg po TID to 1mg po BID and 0.5mg po 1500. 3. obtain collateral information 4. aftercare planning. 11/17/21: Check fasting lipids in AM I spent minutes with the patient and/or on the patient floor today, greater than?50% of which was spent counseling/coordinating care. Patient educated on: diagnosis Reason for contiued inpatient stay Substantial Risk for: harm to self, inability to function and rapid decompensation
[2021-11-17] MEDS: clonazePAM 0.5 MG TABLET PO (14:49)
[2021-11-17] MEDS: Ondansetron ODT 8 MG TAB.RAPDIS TRANSLINGU (20:04)
[2021-11-17] MEDS: Propranolol HCL 10 MG TABLET PO (20:21)
[2021-11-17 20:22] VITALS: BP 125/90; PULSE 104; RESP 16; TEMP 36.3; O2SAT 100
[2021-11-17] MEDS: Magnesium Hydrox/Alum Hydrox 30 ML ORAL.SUSP PO (21:09)
[2021-11-17 23:51] VITALS: BP 129/99; PULSE 96; RESP 18; TEMP 36.1; O2SAT 98
[2021-11-18] MEDS: hydrOXYzine HCL 50 MG TABLET PO
[2021-11-18] MEDS: Ondansetron ODT 4 MG TAB.RAPDIS TRANSLINGU
--- NOTE | 2021-11-18 00:04 | PC.NURSE ---
dr hernandez contact notified 1. pt experiencing intraabdominal issues over night 2. c/o of recurrent nausea 3. vomiting now 4. was given zofran 8 mg odt at 1900 ordered q 8hr prn 5. pt had a bout of diarrhea(incontinent in shower) 6. afebrile 96 bpm rr 18 b/p 129/99 plan a. zofran 4 mg odt now b. hydroxyzine 50 mg po now
[2021-11-18 00:05] LABS: Glucose, Whole Blood 134 mg/dL (60-115)
[2021-11-18] MEDS: traZODone HCL 50 MG TABLET PO (02:19)
[2021-11-18 08:11] LABS: Cholesterol 125 mg/dL; HDL Cholesterol 25 mg/dL; LDL Cholesterol Calculated 73 mg/dl; Triglycerides 139 mg/dL
--- NOTE | 2021-11-18 08:37 | P.PNPSI_ITS ---
Subjective Subjective Date of Service: 11/18/21 Reason For Visit: SI Subjective Notes: Conditional Voluntary Interim History: Pt reports episode of nausea, vomiting last night. abdominal pain. He reports 2 steps back after starting to feel a bit better. Pt reports he did not sleep well due to GI symptoms. He denies SI/HI. However, he continues to endorse depressed mood, anhedonia, feeling hopeless/helpless. He has been more visible in the unit. He reports he is afraid to eat as he does not know if he will tolerate it. 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 Large frame, in hospital attire, just showered. Good/ intense eye contact, attentive. No Tics or Tremors. No abnormal involuntary movements. Calm, cooperative, engaged. Non-pressured speech, spontaneous with regular rate and rhythm, normal volume and prosody. No prolonged speech latency or dysarthria. Mood is ?depressed, anxious,? affect is anxious, tearful. passive SI. No SIB/HI upon inquiry. Denies A/VH or delusional thought content. TCircumstantial about his GI symptoms. Insight/ Judgment fair and adequate. Diagnostics Vital Signs (24Hr): Vital Signs - 24 hr 11/18/21 16:00 11/18/21 22:32 Temperature 97.4 F 97.3 F Pulse Rate 85 93 Respiratory Rate 16 Blood Pressure 94/60 118/80 Pulse Oximetry 97 99 BMI result Body Mass Index 31.2 Labs Results: 11/12/21 13:28 11/18/21 12:49 Labs: Laboratory Results - last 48 hr 11/13/21 11/17/21 11/18/21 18:45 23:05 07:37 Sodium Potassium Chloride Carbon Dioxide Anion Gap BUN Creatinine Estim Creat Clear Calc Estimated GFR POC Glucose 134 H Random Glucose Calcium Total Bilirubin AST ALT Alkaline Phosphatase Total Protein Albumin Triglycerides 139 Cholesterol 125 LDL Cholesterol, Calc 73 HDL Cholesterol 25 Porphobilinogen Interp SEE NOTE Ur [facility] Porphobilinogen 0.075 11/18/21 12:49 Sodium 136 Potassium 4.4 D Chloride 98 Carbon Dioxide 31 H Anion Gap 11 L BUN 15 Creatinine 1.64 H Estim Creat Clear Calc 53.0 Estimated GFR 43 POC Glucose Random Glucose 115 Calcium 10.0 D Total Bilirubin 0.8 AST 33 ALT 55 H Alkaline Phosphatase 39 Total Protein 7.4 Albumin 4.4 Triglycerides Cholesterol LDL Cholesterol, Calc HDL Cholesterol Porphobilinogen Interp Ur [facility] Porphobilinogen Imaging Radiology Impressions: ITS Impressions Abdomen/Pelvis CT 11/12/21 05:12 IMPRESSION: No acute findings identified in the chest, abdomen, or pelvis. Chronic appearing changes as noted above. Chest CT 11/12/21 05:12 IMPRESSION: No acute findings identified in the chest, abdomen, or pelvis. Chronic appearing changes as noted above. Medications Medications Current Medications Acetaminophen (Acetaminophen 325 Mg Tablet) 650 mg PO Q6H PRN PRN Reason: Pain, Moderate (Pain Scale 4-6 Al Hydroxide/Mg Hydroxide (Magnesium Hydrox/Alum Hydrox 30 Ml Oral.Susp) 30 ml PO Q6H PRN PRN Reason: Heartburn/Nausea Last Admin: 11/17/21 21:09 Dose: 30 ml Documented by: Aspirin (Aspirin Enteric Coated 81 Mg Tablet.) 81 mg PO DAILY [facility] Last Admin: 11/19/21 08:31 Dose: 81 mg Documented by: Atorvastatin Calcium (Atorvastatin Calcium 20 Mg Tablet) 20 mg PO DAILY [facility] Last Admin: 11/19/21 08:32 Dose: 20 mg Documented by: Clonazepam (Clonazepam 1 Mg Tablet) 1 mg PO BID [facility] Last Admin: 11/19/21 08:32 Dose: 1 mg Documented by: Clonazepam (Clonazepam 0.5 Mg Tablet) 0.5 mg PO DAILY@1500 [facility] Last Admin: 11/18/21 16:23 Dose: 0.5 mg Documented by: Fenofibrate (Fenofibrate 160 Mg Tablet) 160 mg PO DAILY [facility] Last Admin: 11/19/21 08:31 Dose: 160 mg Documented by: Hydroxyzine HCl (Hydroxyzine Hcl 25 Mg Tablet) 25 mg PO Q6H PRN PRN Reason: Anxiety Last Admin: 11/14/21 03:56 Dose: 25 mg Documented by: Lisinopril (Lisinopril 5 Mg Tablet) 5 mg PO DAILY [facility]; Protocol Last Admin: 11/19/21 08:32 Dose: 5 mg Documented by: Magnesium Hydroxide (Milk Of Magnesia 30 Ml Oral.Susp) 30 ml PO DAILY PRN PRN Reason: Constipation Nicotine (Nicotine 21 Mg Patch.Td24) 21 mg TRANSDERMA DAILY [facility] Last Admin: 11/19/21 08:32 Dose: 21 mg Documented by: Omeprazole (Omeprazole 20 Mg Capsule.Dr) 20 mg PO DAILY [facility] Last Admin: 11/19/21 08:32 Dose: 20 mg Documented by: Ondansetron HCl (Ondansetron Odt 8 Mg Tab.Rapdis) 8 mg TRANSLINGU Q8H PRN PRN Reason: nausea Last Admin: 11/17/21 20:04 Dose: 8 mg Documented by: Propranolol HCl (Propranolol Hcl 10 Mg Tablet) 10 mg PO BID PRN; Protocol PRN Reason: NEEDED Last Admin: 11/18/21 22:36 Dose: 10 mg Documented by: Trazodone HCl (Trazodone Hcl 50 Mg Tablet) 50 mg PO BEDTIME PRN PRN Reason: Insomnia Last Admin: 11/18/21 02:19 Dose: 50 mg Documented by: Trolamine Salicylate/Aloe Vera (Trolamine Salicylate 10%/Aloe Cream 35.4 Gm) 1 appl TOPICAL TID PRN PRN Reason: Musculoskeletal pain Last Admin: 11/14/21 04:12 Dose: 1 appl Documented by: Venlafaxine HCl (Venlafaxine Hcl Er 75 Mg Cap.Er.24h) 75 mg PO DAILY [facility] Last Admin: 11/19/21 08:32 Dose: 75 mg Documented by: Allergies Allergies Allergy/AdvReac Type Severity Reaction Status Date / Time codeine [CODEINE] AdvReac Severe Nausea Verified 11/14/21 06:18 Assessment & Plan Assessment & Plan (1) MDD (major depressive disorder), recurrent episode, moderate: Status: Acute Code(s): F33.1 - Major depressive disorder, recurrent, moderate (2) Alcohol use disorder, moderate, dependence: Status: Acute Code(s): F10.20 - Alcohol dependence, uncomplicated Plan * Quintin is a 61 y.o. Male who carries a dx of panic disorder, MDD recurrent. He presented to the [facility] ED complaining of constellation of physical symptoms including excessive sweating, vomiting, inability to retain food, polydipsia, overall muscle aches, mental fogginess, anxious mood. Precipitating factors include that his sister 6 weeks ago s/p complications from stroke, cancer and her birthday recently passed. He has hx of agitation, getting into physical altercations, anxiety, poor sleep, hypersomnia, depressed mood, and lack of self care. No hx of suicide attempts. Denies hx of self harm. Had been daily drinking 3-4 glasses of wine up until a week ago, denies hx of withdrawal seizures. Presented to the ED with RICARDO and reports having untreated T2DM. Pt has legal charges and court date pending, evicted from his apartment and staying in sister's condo. PLAN 1- Suspect constellation of physical symptoms including acute abdominal pain, excessive sweating, overall pain, vomiting, polydipsia, difficulty breathing, mental fogginess may be exacerbation of possible acute intermittent porphyria rather than panic attack. Ordered urine PBG (pending results). other medical work up completed in ED- unremarkable including abdominal/pelvic CT. 2. Increase Effexor to 75mg po daily on 11/19. Clonazepam lowered from 1mg po TID to 1mg po BID and 0.5mg po 1500. 3. obtain collateral information 4. aftercare planning. I spent minutes with the patient and/or on the patient floor today, greater than?50% of which was spent counseling/coordinating care. Reason for contiued inpatient stay Substantial Risk for: harm to self
[2021-11-18] MEDS: Fenofibrate 160 MG TABLET PO (09:56)
[2021-11-18] MEDS: Omeprazole 20 MG CAPSULE.DR PO (09:56)
[2021-11-18] MEDS: Atorvastatin Calcium 20 MG TABLET PO (09:56)
[2021-11-18] MEDS: lisinopriL 5 MG TABLET PO (09:56)
[2021-11-18] MEDS: clonazePAM 1 MG TABLET PO ×2 (09:56→22:34)
[2021-11-18] MEDS: Aspirin Enteric Coated 81 MG TABLET.DR PO (09:56)
[2021-11-18] MEDS: Venlafaxine HCl ER 37.5 MG CAP.ER.24H PO (09:56)
[2021-11-18] MEDS: Nicotine 21 MG PATCH.TD24 TRANSDERMA (09:57)
[2021-11-18 13:18] LABS: Alanine Aminotransferase 55 U/L (0-40); Albumin Level 4.4 g/dL (3.5-5.0); Alkaline Phosphatase 39 U/L (39-117); Anion Gap 11 (12-20); Aspartate Amino Transferase 33 U/L (5-37); Bilirubin Total 0.8 mg/dL (0.0-1.0); Blood Urea Nitrogen 15 mg/dL (9-16); Carbon Dioxide 31 mmol/L (22-29); Chloride 98 mmol/L (96-108); Estimated Glomerular Filt Rate 43; Glucose Random 115 mg/dL (60-115); Potassium 4.4 mmol/L (3.3-5.1); Sodium 136 mmol/L (135-145); Total Protein 7.4 g/dL (6.5-8.0)
[2021-11-18 16:00] VITALS: BP 94/60; PULSE 85; RESP 16; TEMP 36.3; O2SAT 97
[2021-11-18] MEDS: clonazePAM 0.5 MG TABLET PO (16:23)
[2021-11-18 22:32] VITALS: BP 118/80; PULSE 93; TEMP 36.3; O2SAT 99
[2021-11-18] MEDS: Propranolol HCL 10 MG TABLET PO (22:36)
[2021-11-18 23:36] LABS: Porphobilinogen, Random Urine 0.075 mg/g creat (<0.22)
[2021-11-19 08:10] VITALS: BP 116/61; PULSE 86; RESP 16; TEMP 36.2; O2SAT 100
[2021-11-19] MEDS: Aspirin Enteric Coated 81 MG TABLET.DR PO (08:31)
[2021-11-19] MEDS: Fenofibrate 160 MG TABLET PO (08:31)
[2021-11-19] MEDS: clonazePAM 1 MG TABLET PO ×2 (08:32→20:43)
[2021-11-19] MEDS: Atorvastatin Calcium 20 MG TABLET PO (08:32)
[2021-11-19] MEDS: Venlafaxine HCl ER 75 MG CAP.ER.24H PO (08:32)
[2021-11-19] MEDS: Nicotine 21 MG PATCH.TD24 TRANSDERMA (08:32)
[2021-11-19] MEDS: Omeprazole 20 MG CAPSULE.DR PO (08:32)
[2021-11-19] MEDS: lisinopriL 5 MG TABLET PO (08:32)
--- NOTE | 2021-11-19 12:41 | HO.PSYCHPN ---
Subjective Subjective Date of Service: 11/19/21 Reason For Visit: SI Subjective Notes: Conditional Voluntary Interim History: Pt reports feeling better today in that he describes mood as very good affect slightly constricted. Pt reports no nausea, no vomiting, no abdominal pain. He denies SI/HI. He does report that he doesn't want to have GI symptoms anymore because those affect his mood greatly. He has been more visible in unit, attended arts and crafts groups. He is tolerating decrease in clonazepam. will dc noon time dose. 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 Large frame, in hospital attire, just showered. Good/ intense eye contact, attentive. No Tics or Tremors. No abnormal involuntary movements. Calm, cooperative, engaged. Non-pressured speech, spontaneous with regular rate and rhythm, normal volume and prosody. No prolonged speech latency or dysarthria. Mood is ?depressed, anxious,? affect is anxious, tearful. passive SI. No SIB/HI upon inquiry. Denies A/VH or delusional thought content. TCircumstantial about his GI symptoms. Insight/ Judgment fair and adequate. Diagnostics Vital Signs (24Hr): Vital Signs - 24 hr 11/18/21 16:00 11/18/21 22:32 Temperature 97.4 F 97.3 F Pulse Rate 85 93 Respiratory Rate 16 Blood Pressure 94/60 118/80 Pulse Oximetry 97 99 BMI result Body Mass Index 31.2 Labs Results: 11/12/21 13:28 11/18/21 12:49 Labs: Laboratory Results - last 48 hr 11/13/21 11/17/21 11/18/21 18:45 23:05 07:37 Sodium Potassium Chloride Carbon Dioxide Anion Gap BUN Creatinine Estim Creat Clear Calc Estimated GFR POC Glucose 134 H Random Glucose Calcium Total Bilirubin AST ALT Alkaline Phosphatase Total Protein Albumin Triglycerides 139 Cholesterol 125 LDL Cholesterol, Calc 73 HDL Cholesterol 25 Porphobilinogen Interp SEE NOTE Ur Artemus Porphobilinogen 0.075 11/18/21 12:49 Sodium 136 Potassium 4.4 D Chloride 98 Carbon Dioxide 31 H Anion Gap 11 L BUN 15 Creatinine 1.64 H Estim Creat Clear Calc 53.0 Estimated GFR 43 POC Glucose Random Glucose 115 Calcium 10.0 D Total Bilirubin 0.8 AST 33 ALT 55 H Alkaline Phosphatase 39 Total Protein 7.4 Albumin 4.4 Triglycerides Cholesterol LDL Cholesterol, Calc HDL Cholesterol Porphobilinogen Interp Ur Artemus Porphobilinogen Imaging Radiology Impressions: ITS Impressions Abdomen/Pelvis CT 11/12/21 05:12 IMPRESSION: No acute findings identified in the chest, abdomen, or pelvis. Chronic appearing changes as noted above. Chest CT 11/12/21 05:12 IMPRESSION: No acute findings identified in the chest, abdomen, or pelvis. Chronic appearing changes as noted above. Medications Medications Current Medications Acetaminophen (Acetaminophen 325 Mg Tablet) 650 mg PO Q6H PRN PRN Reason: Pain, Moderate (Pain Scale 4-6 Al Hydroxide/Mg Hydroxide (Magnesium Hydrox/Alum Hydrox 30 Ml Oral.Susp) 30 ml PO Q6H PRN PRN Reason: Heartburn/Nausea Last Admin: 11/17/21 21:09 Dose: 30 ml Documented by: Aspirin (Aspirin Enteric Coated 81 Mg Tablet.) 81 mg PO DAILY [facility] Last Admin: 11/19/21 08:31 Dose: 81 mg Documented by: Atorvastatin Calcium (Atorvastatin Calcium 20 Mg Tablet) 20 mg PO DAILY [facility] Last Admin: 11/19/21 08:32 Dose: 20 mg Documented by: Clonazepam (Clonazepam 1 Mg Tablet) 1 mg PO BID [facility] Last Admin: 11/19/21 08:32 Dose: 1 mg Documented by: Clonazepam (Clonazepam 0.5 Mg Tablet) 0.5 mg PO DAILY@1500 [facility] Last Admin: 11/18/21 16:23 Dose: 0.5 mg Documented by: Fenofibrate (Fenofibrate 160 Mg Tablet) 160 mg PO DAILY [facility] Last Admin: 11/19/21 08:31 Dose: 160 mg Documented by: Hydroxyzine HCl (Hydroxyzine Hcl 25 Mg Tablet) 25 mg PO Q6H PRN PRN Reason: Anxiety Last Admin: 11/14/21 03:56 Dose: 25 mg Documented by: Lisinopril (Lisinopril 5 Mg Tablet) 5 mg PO DAILY [facility]; Protocol Last Admin: 11/19/21 08:32 Dose: 5 mg Documented by: Magnesium Hydroxide (Milk Of Magnesia 30 Ml Oral.Susp) 30 ml PO DAILY PRN PRN Reason: Constipation Nicotine (Nicotine 21 Mg Patch.Td24) 21 mg TRANSDERMA DAILY [facility] Last Admin: 11/19/21 08:32 Dose: 21 mg Documented by: Omeprazole (Omeprazole 20 Mg Capsule.) 20 mg PO DAILY [facility] Last Admin: 11/19/21 08:32 Dose: 20 mg Documented by: Ondansetron HCl (Ondansetron Odt 8 Mg Tab.Rapdis) 8 mg TRANSLINGU Q8H PRN PRN Reason: nausea Last Admin: 11/17/21 20:04 Dose: 8 mg Documented by: Propranolol HCl (Propranolol Hcl 10 Mg Tablet) 10 mg PO BID PRN; Protocol PRN Reason: NEEDED Last Admin: 11/18/21 22:36 Dose: 10 mg Documented by: Trazodone HCl (Trazodone Hcl 50 Mg Tablet) 50 mg PO BEDTIME PRN PRN Reason: Insomnia Last Admin: 11/18/21 02:19 Dose: 50 mg Documented by: Trolamine Salicylate/Aloe Vera (Trolamine Salicylate 10%/Aloe Cream 35.4 Gm) 1 appl TOPICAL TID PRN PRN Reason: Musculoskeletal pain Last Admin: 11/14/21 04:12 Dose: 1 appl Documented by: Venlafaxine HCl (Venlafaxine Hcl Er 75 Mg Cap.Er.24h) 75 mg PO DAILY [facility] Last Admin: 11/19/21 08:32 Dose: 75 mg Documented by: Allergies Allergies Allergy/AdvReac Type Severity Reaction Status Date / Time codeine [CODEINE] AdvReac Severe Nausea Verified 11/14/21 06:18 Assessment & Plan Assessment & Plan (1) MDD (major depressive disorder), recurrent episode, moderate: Status: Acute Code(s): F33.1 - Major depressive disorder, recurrent, moderate (2) Alcohol use disorder, moderate, dependence: Status: Acute Code(s): F10.20 - Alcohol dependence, uncomplicated Plan Quintin is a 61 y.o. Male who carries a dx of panic disorder, MDD recurrent. [place] [facility] complaining of constellation of physical symptoms including excessive sweating, vomiting, inability to retain food, polydipsia, overall muscle aches, mental fogginess, anxious mood. Precipitating factors include that his sister 6 weeks ago s/p complications from stroke, cancer and her birthday recently passed. He has hx of agitation, getting into physical altercations, anxiety, poor sleep, hypersomnia, depressed mood, and lack of self care. No hx of suicide attempts. Denies hx of self harm. Had been daily drinking 3-4 glasses of wine up until a week ago, denies hx of withdrawal seizures. Presented to the ED with RICARDO and reports having untreated T2DM. Pt has legal charges and court date pending, evicted from his apartment and staying in sister's condo. PLAN 1- Suspect constellation of physical symptoms including acute abdominal pain, excessive sweating, overall pain, vomiting, polydipsia, difficulty breathing, mental fogginess may be exacerbation of possible acute intermittent porphyria rather than panic attack. Ordered urine PBG (pending results). other medical work up completed in ED- unremarkable including abdominal/pelvic CT. 2. Increase Effexor to 75mg po daily on 11/19. Clonazepam lowered from 1mg po TID to 1mg po BID and 0.5mg po 1500. 3. obtain collateral information 4. aftercare planning. I spent minutes with the patient and/or on the patient floor today, greater than?50% of which was spent counseling/coordinating care. Reason for contiued inpatient stay Substantial Risk for: harm to self
[2021-11-19] MEDS: Propranolol HCL 10 MG TABLET PO (20:43)
[2021-11-19 20:45] VITALS: BP 107/79; PULSE 96; RESP 18; TEMP 36.4; O2SAT 100
[2021-11-20 06:00] VITALS: BP 114/67; PULSE 82; RESP 16; TEMP 36.2; O2SAT 99
[2021-11-20] MEDS: Nicotine 21 MG PATCH.TD24 TRANSDERMA (07:54)
[2021-11-20] MEDS: clonazePAM 1 MG TABLET PO ×2 (07:55→20:42)
[2021-11-20] MEDS: Venlafaxine HCl ER 75 MG CAP.ER.24H PO (07:55)
[2021-11-20] MEDS: Omeprazole 20 MG CAPSULE.DR PO (07:55)
[2021-11-20] MEDS: Atorvastatin Calcium 20 MG TABLET PO (07:55)
[2021-11-20] MEDS: lisinopriL 5 MG TABLET PO (07:55)
[2021-11-20] MEDS: Aspirin Enteric Coated 81 MG TABLET.DR PO (07:55)
[2021-11-20] MEDS: Fenofibrate 160 MG TABLET PO (07:55)
--- NOTE | 2021-11-20 10:35 | P.PNPSI_ITS ---
Subjective Subjective Date of Service: 11/20/21 Reason For Visit: SI Subjective Notes: Conditional Voluntary Interim History: Pt presents as somewhat overly bright, reporting he feels great. He is somewhat hyperverbal difficult to interrupt. Pt reports sleeping and eating great. Pt reports he has not felt this good in a long time. He denies SI/HI. He denies VH/AH. He reports he plans to continue OP psych tx. He minimizes alcohol use stating I will never drink again. declines further referrals for alcohol use treatment. 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 Memory/cog: alert, oriented x 3. Diagnostics Vital Signs (24Hr): Vital Signs - 24 hr 11/20/21 20:39 11/21/21 06:00 Temperature 97.8 F 97.8 F Pulse Rate 87 81 Respiratory Rate 18 18 Blood Pressure 113/69 122/83 Pulse Oximetry 100 100 BMI result Body Mass Index 31.5 Labs Results: 11/12/21 13:28 11/18/21 12:49 Imaging Radiology Impressions: ITS Impressions Abdomen/Pelvis CT 11/12/21 05:12 IMPRESSION: No acute findings identified in the chest, abdomen, or pelvis. Chronic appearing changes as noted above. Chest CT 11/12/21 05:12 IMPRESSION: No acute findings identified in the chest, abdomen, or pelvis. Chronic appearing changes as noted above. Medications Medications Current Medications Acetaminophen (Acetaminophen 325 Mg Tablet) 650 mg PO Q6H PRN PRN Reason: Pain, Moderate (Pain Scale 4-6 Al Hydroxide/Mg Hydroxide (Magnesium Hydrox/Alum Hydrox 30 Ml Oral.Susp) 30 ml PO Q6H PRN PRN Reason: Heartburn/Nausea Last Admin: 11/17/21 21:09 Dose: 30 ml Documented by: Aspirin (Aspirin Enteric Coated 81 Mg Tablet.) 81 mg PO DAILY [facility] Last Admin: 11/21/21 08:23 Dose: 81 mg Documented by: Atorvastatin Calcium (Atorvastatin Calcium 20 Mg Tablet) 20 mg PO DAILY [facility] Last Admin: 11/21/21 08:23 Dose: 20 mg Documented by: Clonazepam (Clonazepam 1 Mg Tablet) 1 mg PO BID [facility] Last Admin: 11/21/21 08:23 Dose: 1 mg Documented by: Fenofibrate (Fenofibrate 160 Mg Tablet) 160 mg PO DAILY [facility] Last Admin: 11/21/21 08:23 Dose: 160 mg Documented by: Hydroxyzine HCl (Hydroxyzine Hcl 25 Mg Tablet) 25 mg PO Q6H PRN PRN Reason: Anxiety Last Admin: 11/14/21 03:56 Dose: 25 mg Documented by: Lisinopril (Lisinopril 5 Mg Tablet) 5 mg PO DAILY [facility]; Protocol Last Admin: 11/21/21 08:23 Dose: 5 mg Documented by: Magnesium Hydroxide (Milk Of Magnesia 30 Ml Oral.Susp) 30 ml PO DAILY PRN PRN Reason: Constipation Nicotine (Nicotine 21 Mg Patch.Td24) 21 mg TRANSDERMA DAILY [facility] Last Admin: 11/21/21 08:22 Dose: 21 mg Documented by: Omeprazole (Omeprazole 20 Mg Capsule.) 20 mg PO DAILY [facility] Last Admin: 11/21/21 08:23 Dose: 20 mg Documented by: Ondansetron HCl (Ondansetron Odt 8 Mg Tab.Rapdis) 8 mg TRANSLINGU Q8H PRN PRN Reason: nausea Last Admin: 11/17/21 20:04 Dose: 8 mg Documented by: Propranolol HCl (Propranolol Hcl 10 Mg Tablet) 10 mg PO BID PRN; Protocol PRN Reason: NEEDED Last Admin: 11/20/21 20:42 Dose: 10 mg Documented by: Trazodone HCl (Trazodone Hcl 50 Mg Tablet) 50 mg PO BEDTIME PRN PRN Reason: Insomnia Last Admin: 11/18/21 02:19 Dose: 50 mg Documented by: Trolamine Salicylate/Aloe Vera (Trolamine Salicylate 10%/Aloe Cream 35.4 Gm) 1 appl TOPICAL TID PRN PRN Reason: Musculoskeletal pain Last Admin: 11/14/21 04:12 Dose: 1 appl Documented by: Venlafaxine HCl (Venlafaxine Hcl Er 75 Mg Cap.Er.24h) 75 mg PO DAILY [facility] Last Admin: 11/21/21 08:23 Dose: 75 mg Documented by: Allergies Allergies Allergy/AdvReac Type Severity Reaction Status Date / Time codeine [CODEINE] AdvReac Severe Nausea Verified 11/14/21 06:18 Assessment & Plan Assessment & Plan (1) MDD (major depressive disorder), recurrent episode, moderate: Status: Acute Code(s): F33.1 - Major depressive disorder, recurrent, moderate (2) Alcohol use disorder, moderate, dependence: Status: Acute Code(s): F10.20 - Alcohol dependence, uncomplicated Plan * Quintin is a 61 y.o. Male who carries a dx of panic disorder, MDD recurrent. He presented to the [facility] complaining of constellation of physical symptoms including excessive sweating, vomiting, inability to retain food, polydipsia, overall muscle aches, mental fogginess, anxious mood. Precipitating factors include that his sister 6 weeks ago s/p complications from stroke, cancer and her birthday recently passed. He has hx of agitation, getting into physical altercations, anxiety, poor sleep, hypersomnia, depressed mood, and lack of self care. No hx of suicide attempts. Denies hx of self harm. Had been daily drinking 3-4 glasses of wine up until a week ago, denies hx of wi thdrawal seizures. Presented to the ED with RICARDO and reports having untreated T2DM. Pt has legal charges and court date pending, evicted from his apartment and staying in sister's condo. PLAN 1. 15 minutes checks 2. continue Effexor to 75mg po daily on 11/19. Clonazepam lowered from 1mg po TID to 1mg po BID. 3. obtain collateral information 4. aftercare planning. I spent minutes with the patient and/or on the patient floor today, greater than?50% of which was spent counseling/coordinating care. Reason for contiued inpatient stay Substantial Risk for: harm to self
[2021-11-20 17:28] VITALS: BMI 31.5
[2021-11-20 20:39] VITALS: BP 113/69; PULSE 87; RESP 18; TEMP 36.6; O2SAT 100
[2021-11-20] MEDS: Propranolol HCL 10 MG TABLET PO (20:42)
[2021-11-21 06:00] VITALS: BP 122/83; PULSE 81; RESP 18; TEMP 36.6; O2SAT 100
[2021-11-21] MEDS: Nicotine 21 MG PATCH.TD24 TRANSDERMA (08:22)
[2021-11-21] MEDS: Venlafaxine HCl ER 75 MG CAP.ER.24H PO (08:23)
[2021-11-21] MEDS: Aspirin Enteric Coated 81 MG TABLET.DR PO (08:23)
[2021-11-21] MEDS: lisinopriL 5 MG TABLET PO (08:23)
[2021-11-21] MEDS: Fenofibrate 160 MG TABLET PO (08:23)
[2021-11-21] MEDS: Omeprazole 20 MG CAPSULE.DR PO (08:23)
[2021-11-21] MEDS: Atorvastatin Calcium 20 MG TABLET PO (08:23)
[2021-11-21] MEDS: clonazePAM 1 MG TABLET PO ×2 (08:23→20:16)
--- NOTE | 2021-11-21 10:02 | HO.PSYCHPN ---
Subjective Subjective Date of Service: 11/21/21 Reason For Visit: SI Subjective Notes: Conditional Voluntary Interim History: Pt presents with bright affect, slightly expansive. He reports he feels great. He denies SI/HI. He reports he is looking forward to continue OP psych tx. No VH/AH. Somewhat hyperverbal at times, not pressured. May benefit from mood stabilizer. 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 Memory/cog: alert, oriented x 3. Diagnostics Vital Signs (24Hr): Vital Signs - 24 hr 11/21/21 18:00 Temperature 98.1 F Pulse Rate 86 Respiratory Rate 18 Blood Pressure 122/70 Pulse Oximetry 99 BMI result Body Mass Index 31.7 Labs Results: 11/12/21 13:28 11/18/21 12:49 Imaging Radiology Impressions: ITS Impressions Abdomen/Pelvis CT 11/12/21 05:12 IMPRESSION: No acute findings identified in the chest, abdomen, or pelvis. Chronic appearing changes as noted above. Chest CT 11/12/21 05:12 IMPRESSION: No acute findings identified in the chest, abdomen, or pelvis. Chronic appearing changes as noted above. Medications Medications Current Medications Acetaminophen (Acetaminophen 325 Mg Tablet) 650 mg PO Q6H PRN PRN Reason: Pain, Moderate (Pain Scale 4-6 Al Hydroxide/Mg Hydroxide (Magnesium Hydrox/Alum Hydrox 30 Ml Oral.Susp) 30 ml PO Q6H PRN PRN Reason: Heartburn/Nausea Last Admin: 11/17/21 21:09 Dose: 30 ml Documented by: Aspirin (Aspirin Enteric Coated 81 Mg Tablet.) 81 mg PO DAILY [facility] Last Admin: 11/22/21 09:20 Dose: 81 mg Documented by: Atorvastatin Calcium (Atorvastatin Calcium 20 Mg Tablet) 20 mg PO DAILY [facility] Last Admin: 11/22/21 09:20 Dose: 20 mg Documented by: Clonazepam (Clonazepam 1 Mg Tablet) 1 mg PO BID [facility] Last Admin: 11/22/21 09:20 Dose: 1 mg Documented by: Fenofibrate (Fenofibrate 160 Mg Tablet) 160 mg PO DAILY [facility] Last Admin: 11/22/21 09:21 Dose: 160 mg Documented by: Hydroxyzine HCl (Hydroxyzine Hcl 25 Mg Tablet) 25 mg PO Q6H PRN PRN Reason: Anxiety Last Admin: 11/14/21 03:56 Dose: 25 mg Documented by: Lisinopril (Lisinopril 5 Mg Tablet) 5 mg PO DAILY [facility]; Protocol Last Admin: 11/22/21 09:20 Dose: 5 mg Documented by: Magnesium Hydroxide (Milk Of Magnesia 30 Ml Oral.Susp) 30 ml PO DAILY PRN PRN Reason: Constipation Nicotine (Nicotine 21 Mg Patch.Td24) 21 mg TRANSDERMA DAILY [facility] Last Admin: 11/22/21 09:21 Dose: 21 mg Documented by: Omeprazole (Omeprazole 20 Mg Capsule.Dr) 20 mg PO DAILY [facility] Last Admin: 11/22/21 09:20 Dose: 20 mg Documented by: Ondansetron HCl (Ondansetron Odt 8 Mg Tab.Rapdis) 8 mg TRANSLINGU Q8H PRN PRN Reason: nausea Last Admin: 11/17/21 20:04 Dose: 8 mg Documented by: Propranolol HCl (Propranolol Hcl 10 Mg Tablet) 10 mg PO BID PRN; Protocol PRN Reason: NEEDED Last Admin: 11/21/21 20:16 Dose: 10 mg Documented by: Trazodone HCl (Trazodone Hcl 50 Mg Tablet) 50 mg PO BEDTIME PRN PRN Reason: Insomnia Last Admin: 11/18/21 02:19 Dose: 50 mg Documented by: Trolamine Salicylate/Aloe Vera (Trolamine Salicylate 10%/Aloe Cream 35.4 Gm) 1 appl TOPICAL TID PRN PRN Reason: Musculoskeletal pain Last Admin: 11/14/21 04:12 Dose: 1 appl Documented by: Venlafaxine HCl (Venlafaxine Hcl Er 75 Mg Cap.Er.24h) 75 mg PO DAILY [facility] Last Admin: 11/22/21 09:20 Dose: 75 mg Documented by: Allergies Allergies Allergy/AdvReac Type Severity Reaction Status Date / Time codeine [CODEINE] AdvReac Severe Nausea Verified 11/14/21 06:18 Assessment & Plan Assessment & Plan (1) MDD (major depressive disorder), recurrent episode, moderate: Status: Acute Code(s): F33.1 - Major depressive disorder, recurrent, moderate (2) Alcohol use disorder, moderate, dependence: Status: Acute Code(s): F10.20 - Alcohol dependence, uncomplicated Plan Quintin is a 61 y.o. Male who carries a dx of panic disorder, MDD recurrent. He presented to the [facility] ED complaining of constellation of physical symptoms including excessive sweating, vomiting, inability to retain food, polydipsia, overall muscle aches, mental fogginess, anxious mood. Precipitating factors include that his sister 6 weeks ago s/p complications from stroke, cancer and her birthday recently passed. He has hx of agitation, getting into physical altercations, anxiety, poor sleep, hypersomnia, depressed mood, and lack of self care. No hx of suicide attempts. Denies hx of self harm. Had been daily drinking 3-4 glasses of wine up until a week ago, denies hx of withdrawal seizures. Presented to the ED with RICARDO and reports having untreated T2DM. Pt has legal charges and court date pending, evicted from his apartment and staying in sister's condo. PLAN 1. 15 minutes checks 2. continue Effexor to 75mg po daily on 11/19. Clonazepam lowered from 1mg po TID to 1mg po BID. 3. obtain collateral information 4. aftercare planning. I spent minutes with the patient and/or on the patient floor today, greater than?50% of which was spent counseling/coordinating care. Reason for contiued inpatient stay Substantial Risk for: stable for discharge
[2021-11-21 11:59] VITALS: BMI 31.7
[2021-11-21 18:00] VITALS: BP 122/70; PULSE 86; RESP 18; TEMP 36.7; O2SAT 99
[2021-11-21] MEDS: Propranolol HCL 10 MG TABLET PO (20:16)
[2021-11-22 08:30] VITALS: BP 116/61; PULSE 83; TEMP 36.6
[2021-11-22] MEDS: Atorvastatin Calcium 20 MG TABLET PO (09:20)
[2021-11-22] MEDS: Aspirin Enteric Coated 81 MG TABLET.DR PO (09:20)
[2021-11-22] MEDS: clonazePAM 1 MG TABLET PO (09:20)
[2021-11-22] MEDS: Venlafaxine HCl ER 75 MG CAP.ER.24H PO (09:20)
[2021-11-22] MEDS: lisinopriL 5 MG TABLET PO (09:20)
[2021-11-22] MEDS: Omeprazole 20 MG CAPSULE.DR PO (09:20)
[2021-11-22] MEDS: Nicotine 21 MG PATCH.TD24 TRANSDERMA (09:21)
[2021-11-22] MEDS: Fenofibrate 160 MG TABLET PO (09:21)
--- NOTE | 2021-11-22 13:55 | PM.PSYDC ---
DS: Providers Provider Date of Service: 11/22/21 Date of admission: 11/12/21 14:53 Primary care physician: EDWIGE Guo DS: Diagnosis Discharge Diagnosis (1) MDD (major depressive disorder), recurrent episode, moderate: Status: Acute (2) Alcohol use disorder, moderate, dependence: Status: Acute DS: Medications Discharge Medications Home Medications: Home Medications Medication Instructions Recorded Confirmed aspirin 81 mg tablet,delayed 81 mg PO DAILY 11/11/21 11/11/21 release atorvastatin 20 mg tablet 20 mg PO DAILY 11/11/21 11/11/21 fenofibrate 160 mg tablet 160 mg PO DAILY 11/11/21 11/11/21 lisinopril 5 mg tablet 5 mg PO DAILY 11/11/21 11/11/21 omeprazole 20 mg capsule,delayed 20 mg PO DAILY 11/11/21 11/11/21 release propranolol 10 mg tablet 10 mg PO BID PRN 11/11/21 11/11/21 Previous Rx's Medication Instructions Recorded clonazepam 1 mg tablet 1 mg PO BID #0 tab 11/22/21 nicotine 21 mg/24 hr daily 21 mg TRANSDERMAL DAILY #30 ea 11/22/21 transdermal patch venlafaxine 75 mg capsule,extended 75 mg PO DAILY #30 cap 11/22/21 release 24 hr Mental Status Exam Mental Status Exam Narrative: Appearance: MO, casually groomed, in NAD Behavior: cooperative Speech: clear, hyperverbal at times but not pressured, spontaneous, regular tone Psychomotor: no agitation or retardation noted Mood: great Affect: congruent, non labile AH/VH: none delusions: none Insight/judgment: fair x 2. Memory/cog: alert, oriented x 3.? Data Imaging Diagnostic Imaging Impressions Abdomen/Pelvis CT 11/12/21 05:12 IMPRESSION: No acute findings identified in the chest, abdomen, or pelvis. Chronic appearing changes as noted above. Chest CT 11/12/21 05:12 IMPRESSION: No acute findings identified in the chest, abdomen, or pelvis. Chronic appearing changes as noted above. DS: Summary Hospital Course Hospital Course: Subjective Notes: Can Warning and Conditional Voluntary Healthcare Proxy: No Guardianship: No Medical Problems Affecting Mental Status: No Narrative: Quintin is a 61 y.o. Male who carries a dx of panic disorder, MDD recurrent. He presented to the [facility] ED complaining of increased panic attack x3 wks and SI with plan to hang himself with a chain. Precipitating factors include that his sister 6 weeks ago s/p complications from stroke, cancer and her birthday recently passed. Pt is residing in her condo amongst all her things. In the ED pt presented with elevated BUN, Cr, white count, H/H, and RICARDO in context of dehydration. He was administered 2 L of fluids and labs somewhat improved. Will repeat chemistries in the morning. I evaluated the pt this evening and upon interview he reports he has been experiencing increased anxiety with sx of poor appetite, nausea, blurry vision, sweating, chest pain, cramping, and says he is ?always thirsty.? He denies treatment for diabetes, labs for A1c and Lipids pending, last random blood glucose 121. Pt says his anxiety typically presents with physical sx and he has lost 13 lbs in a week. States his episodes of increased anxiety and panic usually lasts three weeks and he hasn?t experienced an exacerbation of anxiety in over a year. Denies nausea today. Per pt, his medications ?were working until this thing flipped out, then I couldnt get it back into control? referring to his anxiety. [facility] but denies benefit. He denies anger or agitation. Endorses depressed mood and has sx of avolition, anhedonia, and hopelessness. Also says he feels ?slowed? cognitively, ?im having to double think things.? Says he has limited daytime activities/ structure and ?because of the covid and gas prices I do nothing.? Pt?s daily routine consists of transporting daughter to work, shopping for groceries, showering, and watching tv. Says he sleeps too much. He is interested in medication adjustment to help with ?keeping me stable, keeping me cognitive, and with an appetite.? He is tearful during interview and says his anxiety ?usually breaks me down into a little baby, tearful. I thought I was better and I got so scared.? He denies sx of PTSD, no nightmares or flashbacks. Denies psychotic sx. No hx of manic or hypomanic episodes endorsed. Says he feels safe on the unit and currently denies SI/SIB/HI.? Past Psychiatric History: -Hx of IPLOC at [facility] M[facility] in 2015, 2005, and 2007 -Hx of CCS at [facility] 05/2021, 2015 -Has current OP psych services at [facility], prescriber is CERTIFIED LOW VISION THERAPIST Wallace Stephens -Last presented to [facility] crisis 05/28/21 due to increased depression, anxiety, disposition was CCS/ respite. He was seen 10/06/19 due to SI, dispo was to f/u with OP providers. HOSPITAL COURSE Mr. Lindo was admitted on a CV and placed on 15 minutes checks for safety. Pt presented as very anxious, restless, poor sleep, anhedonia, depressed mood, in part secondary to physical symptoms of abdominal pain, vomiting which resolved while in the unit. After discussing risks, benefits and alternative treatment options, pt agreed to switch antidepressant to Venlafaxine. His clonazpeam was decreased from 1mg po TID to 1mg po BID due to ongoing alcohol use and limited therapeutic benefit. His affect gradually brighten. He reported less symptoms of anxiety. his sleep improved significantly. He did appear with slightly expansive mood and hyperverbal but not to the point of affecting his functioning. He has been mostly treated for unipolar depression for several years but wondering if some mild hypomania present as well. He did not appear internally preoccupied. He was visible in the unit and attended assigned groups. Collateral information gathered from his sister who reports that pt appeared in much improved condition and denied any safety concerns at time of discharge. In terms of GI symptoms- these recurrent episodes of abdominal pain, vomiting, nausea- we recommended to follow up with GI specialist. Symptoms did resolve but unclear etiology. Time spent discussing smoking cessation with patient: 3 to 10 minutes Status at Discharge Cognitive/behavioral status at discharge: Pt with bright, non labile affect. Future oriented. He denies SI/HI. He is looking forward to see family and continue OP psych tx. He is sleeping and eating well. No signs of aggression towards self or others. Functional status at discharge: independent ambulation Overall status at discharge: patient is progressing back to baseline Time Spent with Patient Time attestation: Total time spent providing and/or coordinating discharge services: Discharge Plan Discharge Patient Disposition: Home, Self-Care Discharge Diagnosis: MDD, recurrent, moderate r/o Bipolar type 2 Disorder Referrals: Wallace Stephens (psychiatrist) [Other] - 11/28/21 9:00 am (Telehealth appointment) Kandice Wilkerson (therapist) [Other] - 11/27/21 8:00 am (Telehealth appointment) Anh albert Millicent [Other] (Call or drop by [facility] recovery support, groups, and resources) Daron Oconnell PA [Primary Care Provider] - 1 Week (Provider would call pt for follow up appt) Discharge Medications: New venlafaxine 75 mg Capsule,Extended Release 24hr 75 mg PO DAILY Qty: 30 0RF clonazepam 1 mg Tablet 1 mg PO BID Qty: 0 0RF nicotine 21 mg/24 hr Patch 24 Hour 21 mg transdermal DAILY Qty: 30 0RF Continued atorvastatin 20 mg Tablet 20 mg PO DAILY 0RF propranolol 10 mg Tablet 10 mg PO BID PRN (Reason: NEEDED) 0RF omeprazole 20 mg Capsule,Delayed Release(Dr/Ec) 20 mg PO DAILY 0RF fenofibrate 160 mg Tablet 160 mg PO DAILY 0RF lisinopril 5 mg Tablet 5 mg PO DAILY 0RF aspirin 81 mg Tablet,Delayed Release (Dr/Ec) 81 mg PO DAILY 0RF Discontinued buspirone 10 mg Tablet 10 mg PO BID 0RF fluoxetine 20 mg Capsule 60 mg PO DAILY 0RF clonazepam 1 mg Tablet 1 mg PO TID 0RF Discharge Orders: Discharge Order (Routine); Ordered 11/22/21 Ordered By: Josiane Hudson Diet: regular diet Activity on Discharge: As tolerated Stand Alone Forms: Patient Portal Discharge page, Community Support Care Plan Goals: 1. Maintain mood 2. No SI/HI 3. No signs of aggression towards self or others. Health Concerns: Follow up with PCP and [employer] Director for GI symptoms Plan of Treatment: 1. Take medications as prescribed 2. Go to nearest ED or call 911 in event of emergency Assessment: Pt with bright affect, slightly expansive. No SI/HI. Sleeping and eating well. No signs of psychosis, future oriented looking forward to continue OP treatment. Discharge Date/Time: 11/22/21 12:58
== END 2021-11-22 12:58 | disposition home or self-care (01) | DRG 885 ==
LOC: HO.ED 11-12 11:10 → HO.PADLT16 11-12 15:02
PROVIDERS: Nurse Practitioner Family; Physician Assistant; Psychiatry & Neurology Psychiatry; Student in an Organized Health Care Education/Training Program; Admitting Provider Psychiatry & Neurology Psychiatry; Emergency Provider Internal Medicine; PCP Physician Assistant Medical; Visit Provider Social Worker
DX: F33.1 Major depressive disorder, recurrent, moderate (principal); R45.851 Suicidal ideations; F10.20 Alcohol dependence, uncomplicated; F41.0 Panic disorder [episodic paroxysmal anxiety]; Z20.822 Contact with and (suspected) exposure to COVID-19; F17.210 Nicotine dependence, cigarettes, uncomplicated; Z71.6 Tobacco abuse counseling; Z88.5 Allergy status to narcotic agent; Z79.82 Long term (current) use of aspirin; Z79.899 Other long term (current) drug therapy
CPT/HCPCS: 36415; 71250; 74176; 80048; 80053; 80061; 80076; 80307; 81001; 82607; 82746; 82947; 83036; 83690; 83735; 84106; 84300; 84439; 84443; 84484; 85025; 87635; 93005; 99285

== ENCOUNTER 2022-01-23 10:04 | Inpatient (IN) | payer OTHER, MEDICARE, MEDICAID, SELFPAY ==
--- NOTE | ~2022-01-23 | XR_ITS ---
EXAMINATION: XR TOES, LEFT CLINICAL INFORMATION: Cellulitis great toe COMPARISON: None TECHNIQUE: 3 views of the left first toe were obtained. FINDINGS: There is marked soft tissue swelling around the distal phalanx. There is a lytic destructive lesions seen in the distal phalanx with no cortex seen on the dorsal surface distally. Findings are highly suspicious for osteomyelitis in the correct clinical setting. XR/XR toe LT min 2V IMPRESSION: Lytic destructive lesion of the terminal tuft of the distal phalanx first toe with associated soft tissue swelling. Findings certainly would be consistent with osteomyelitis. Metastatic disease would be another consideration although less likely.
[2022-01-23 10:09] VITALS: BP 146/89; PULSE 91; RESP 20; TEMP 36; O2SAT 98; BMI 30.6
--- NOTE | 2022-01-23 10:24 | PC.NURSE ---
LEFT GREAT TOE NAIL BED REDDENED WITH SEROUS SANG FLUID DRAINING WITH INFLAMMATION OF GREAT TOE.
--- NOTE | 2022-01-23 10:49 | ED.SKABFB ---
HPI - Skin/Abscess/Foreign Bdy General Chief complaint: Extremity Problem Stated complaint: l toe infection Time Seen by Provider: 01/23/22 10:31 Source: patient Mode of arrival: ambulatory Limitations: no limitations History of Present Illness HPI narrative: 61-year-old male who reports he is a diabetic controlled by diet presenting to the ED with complaints of ingrown toenail/redness/purulent drainage over the past week. Reports that he used some pliers at home and tried to pull out the ingrown toenail and had a lot of purulent discharge. He reports he is up-to-date on tetanus. He denies a history of MRSA that he is aware of. He denies any fevers, chills or any other symptoms complaints or concerns at this time. MD complaint: other (Redness/purulent drainage to left great toenail) Onset (ago): week(s) (1) Tetanus up to date: yes Location: L foot (Great toe) Severity: moderate Quality: aching and constant Pain Consistency: constant Relieving factors: none Exacerbating factors: none Context: other (Ingrown toenail) Associated symptoms: denies other symptoms Treatments prior to arrival: attempted to drain pus at home Related Data Home Medications Medication Instructions Recorded Confirmed aspirin 81 mg tablet,delayed 81 mg PO DAILY 11/11/21 01/23/22 release atorvastatin 20 mg tablet 20 mg PO DAILY 11/11/21 01/23/22 lisinopril 5 mg tablet 5 mg PO DAILY 11/11/21 01/23/22 omeprazole 20 mg capsule,delayed 20 mg PO DAILY 11/11/21 01/23/22 release propranolol 10 mg tablet 10 mg PO BID PRN 11/11/21 01/23/22 venlafaxine 150 mg 1 cap PO DAILY 01/23/22 01/23/22 capsule,extended release 24 hr Previous Rx's Medication Instructions Recorded clonazepam 1 mg tablet 1 mg PO BID #0 tab 11/22/21 nicotine 21 mg/24 hr daily 21 mg TRANSDERMAL DAILY #30 ea 11/22/21 transdermal patch venlafaxine 75 mg capsule,extended 75 mg PO DAILY #30 cap 11/22/21 release 24 hr Allergies Allergy/AdvReac Type Severity Reaction Status Date / Time codeine [CODEINE] AdvReac Severe Nausea Verified 01/23/22 10:17 Review of Systems Review of Systems: Constitutional : Denies history of same, Denies any other sites involved, Denies IV drug use, Denies history of MRSA, Denies swollen glands, Denies injury, Denies Fever, Denies Chills, No Sig Pain, Denies Systemic symptoms Cardiovascular : No Chest Pain, No SOB Respiratory : No Dyspnea Gastrointestinal : No abdominal pain Musculoskeletal : No Joint Swelling Skin : + pain with surrounding erythema, No skin laceration, No Foreign bodies, No spreading rash, Denies bites, Denies discharge, Neuro : No Weakness, No Numbness/tingling Psych : No SI/HI/thoughts of self injury Yes all other systems are reviewed and are negative [facility] Past Medical History Attestation statement: The following information was validated with the patient. Medical History Amputation finger Diabetes H/O ETOH abuse Smoker Social History Social History Household Members: None Household Members Other:: Self Housing: Other Do you presently have visiting nurse or other home services: No Patient Tobacco Use Status: Current everyday Tobacco user Tobacco use type: Cigarette Cigarette Packs Per Day: 1 Cigarettes Per Day: 10 Second Hand Smoke Exposure: No Substance Use Type: Marijuana and Caffiene Advance Directives: No Advance Directives Information Provided: No service: Yes (Pt was in the [facility].) Sexual orientation: Straight/Heterosexual Physical Exam Vital Signs: Vital Signs: Last Vital Signs Temp 99.0 F 01/23/22 13:48 Pulse 74 01/23/22 13:48 Resp 18 01/23/22 13:48 BP 114/83 01/23/22 13:48 Pulse Ox 99 01/23/22 13:48 BMI result Body Mass Index 30.6 vital signs have been reviewed as normal and appeared to be correct. Blood pressure normal Heart rate normal. Respiration rate normal. Temperature normal. Oxygen saturation normal. Appearance: Alert. Oriented X3. No acute distress. Head: Normal external exam. Normocephalic. Atraumatic. Eyes: PERRLA. EOMI. Conjunctiva and sclera normal. Eyelids normal. ENT: Pharynx normal. Uvula midline. Moist mucous membranes. Neck: Normal inspection. Neck supple. FROM. CVS: Normal heart rate and rhythm. Respiratory: No respiratory distress. Painless inspiration. Skin: Skin warm and dry. Normal skin color. Normal skin turgor. No rashes/lesions/lacerations noted. Extremities: To left great toe patient has a nail that appears macerated with moderate surrounding erythema and soft tissue swelling and tenderness palpation and warm to touch no obvious ingrown nail at this time and no purulent drainage or paronychia noted. No streaking noted. No foreign bodies noted. He has full range of motion of the toe. Not consistent with septic joint. Otherwise all other extremities exhibit normal range of motion nontender. Neuro: Oriented X 3. No motor deficit. No sensory deficit. Reflexes normal. Normal steady gait. No focal neuro deficits noted. Vascular: + radial pulses/+ 2 distal pedal pulses/+2 dorsalis pedis b/l. Normal cap refill. No cyanosis noted to upper extremity nails and lower extremity toes nails. Course Course Course Narrative: 10:30am - 61-year-old male who reports he is a diabetic controlled by diet presenting to the ED with complaints of ingrown toenail/redness/purulent drainage over the past week. Reports that he used some pliers at home and tried to pull out the ingrown toenail and had a lot of purulent discharge. He reports he is up-to-date on tetanus. He denies a history of MRSA that he is aware of. He denies any fevers, chills or any other symptoms complaints or concerns at this time. Will obtain of x-ray if negative for osteo or any other acute processes Reevaluation(s) Reevaluation #1: - x-ray reading results at this time and took a long time therefore I had already given the patient p.o. Keflex and doxycycline out x-ray returned and reported possible osteomyelitis therefore at this time will obtain labs, blood cultures, lactic acid and provide IV fluids and IV antibiotics and plan to admit for cellulitis with osteomyelitis of left great toe. Patient understands agrees with this plan. Time: 12:45 Reevaluation #2: - patient with elevated white blood cell count at 11,000. - lactic acid is within normal limits. - still awaiting chemistry. Plan is to admit to Dr. Pan for osteomyelitis. Patient understands agrees this plan he is receiving Zosyn and vanco. Time: 14:23 Reevaluation #3: - BUN 17. Alkaline phosphate 37. CRP 3.56. Otherwise all other labs are within normal limits. Dr. Pan to admit at this time. Time: 14:37 MDM - Skin/Abscess/Foreign Bdy Medical Records Attestation: I reviewed the patient's medical records. Lab Data Attestation: I reviewed the patient's lab results. Result diagrams: 01/23/22 13:09 01/23/22 13:09 Labs: Lab Results 01/23/22 01/23/22 01/23/22 Range/Units 13:09 13:09 13:09 WBC 11.5 H (4.8-10.8) X10*3/uL RBC 5.41 (4.60-5.80) X10*6/uL Hgb 16.4 (14.0-18.0) g/dl Hct 49.6 (42.0-52.0) % MCV 91.7 (80.0-98.0) fL MCH 30.3 (27.0-33.0) pg MCHC 33.1 (31.0-36.0) g/dl RDW 12.5 (11.0-16.0) % Plt Count 396 D (160-400) X10*3/uL MPV 10.2 (9.4-12.4) fL Immature Gran % (Auto) 0.3 (0.0-0.4) % Neut % (Auto) 71.5 (45-73) % Lymph % (Auto) 20.2 (20-40) % Dundy % (Auto) 5.8 (2-11) % Eos % (Auto) 1.8 (0-4) % Baso % (Auto) 0.4 (0-2) % Lymph # (Auto) 2.3 (1.2-4.9) X10*3/uL Dundy # (Auto) 0.7 (0.1-1.2) X10*3/uL Eos # (Auto) 0.2 (0.0-0.4) X10*3/uL Baso # (Auto) 0.1 (0.0-0.2) X10*3/uL Abs Immat Gran (auto) 0.03 (0.00-0.03) X10*3/uL Absolute Neuts (auto) 8.2 (2.0-8.3) x10*3/uL Absolute Nucleated RBC 0.000 (0.0-0.012) X10*3/uL Nucleated RBC % (auto) 0.0 (0.0-0.2) /100WBC PT 13.0 (9.9-13.0) SEC INR 1.1 (0.9-1.1) Sodium 139 (135-145) mmol/L Potassium 4.7 (3.3-5.1) mmol/L Chloride 101 (96-108) mmol/L Carbon Dioxide 26 (22-29) mmol/L Anion Gap 17 (12-20) BUN 17 H (9-16) mg/dL Creatinine 1.25 (0.5-1.4) mg/dL Estim Creat Clear Calc 68.9 Estimated GFR 59 Random Glucose 97 (60-115) mg/dL Lactic Acid (0.5-2.0) mmol/L Calcium 10.1 (8.4-10.2) mg/dL Magnesium 2.0 (1.6-2.6) mg/dL Total Bilirubin 0.6 (0.0-1.0) mg/dL AST 20 (5-37) U/L ALT 18 (0-40) U/L Alkaline Phosphatase 37 L (39-117) U/L C-Reactive Protein 3.56 H (< or = 0.50) mg/dL Total Protein 8.0 (6.5-8.0) g/dL Albumin 4.3 (3.5-5.0) g/dL COVID-19 (RG) (Negative) COVID-19 Clin Com 01/23/22 01/23/22 Range/Units 13:13 13:13 WBC (4.8-10.8) X10*3/uL RBC (4.60-5.80) X10*6/uL Hgb (14.0-18.0) g/dl Hct (42.0-52.0) % MCV (80.0-98.0) fL MCH (27.0-33.0) pg MCHC (31.0-36.0) g/dl RDW (11.0-16.0) % Plt Count (160-400) X10*3/uL MPV (9.4-12.4) fL Immature Gran % (Auto) (0.0-0.4) % Neut % (Auto) (45-73) % Lymph % (Auto) (20-40) % Dundy % (Auto) (2-11) % Eos % (Auto) (0-4) % Baso % (Auto) (0-2) % Lymph # (Auto) (1.2-4.9) X10*3/uL Dundy # (Auto) (0.1-1.2) X10*3/uL Eos # (Auto) (0.0-0.4) X10*3/uL Baso # (Auto) (0.0-0.2) X10*3/uL Abs Immat Gran (auto) (0.00-0.03) X10*3/uL Absolute Neuts (auto) (2.0-8.3) x10*3/uL Absolute Nucleated RBC (0.0-0.012) X10*3/uL Nucleated RBC % (auto) (0.0-0.2) /100WBC PT (9.9-13.0) SEC INR (0.9-1.1) Sodium (135-145) mmol/L Potassium (3.3-5.1) mmol/L Chloride (96-108) mmol/L Carbon Dioxide (22-29) mmol/L Anion Gap (12-20) BUN (9-16) mg/dL Creatinine (0.5-1.4) mg/dL Estim Creat Clear Calc Estimated GFR Random Glucose (60-115) mg/dL Lactic Acid 0.9 (0.5-2.0) mmol/L Calcium (8.4-10.2) mg/dL Magnesium (1.6-2.6) mg/dL Total Bilirubin (0.0-1.0) mg/dL AST (5-37) U/L ALT (0-40) U/L Alkaline Phosphatase (39-117) U/L C-Reactive Protein (< or = 0.50) mg/dL Total Protein (6.5-8.0) g/dL Albumin (3.5-5.0) g/dL COVID-19 (RG) Negative (Negative) COVID-19 Clin Com See Note Imaging Data Left great toe x-ray: Attestation: I personally reviewed and interpreted this imaging study as follows: Radiologist's impression: FINDINGS: There is marked soft tissue swelling around the distal phalanx. There is a lytic destructive lesions seen in the distal phalanx with no cortex seen on the dorsal surface distally. Findings are highly suspicious for osteomyelitis in the correct clinical setting. XR/XR toe LT min 2V IMPRESSION: Lytic destructive lesion of the terminal tuft of the distal phalanx first toe with associated soft tissue swelling. Findings certainly would be consistent with osteomyelitis. Metastatic disease would be another consideration although less likely. Critical Care Time Critical Care Time Critical Care Time: Yes Total Critical Care Time: 60 Attestation: I personally attest to this time spent taking care of the patient Discharge Plan Discharge Clinical Impression: Cellulitis of great toe of left foot, Osteomyelitis of great toe of left foot Patient Disposition: Still a Patient Prescriptions: No Action venlafaxine 150 mg capsule,extended release 24hr 1 cap PO DAILY 0RF atorvastatin 20 mg Tablet 20 mg PO DAILY 0RF propranolol 10 mg Tablet 10 mg PO BID PRN (Reason: NEEDED) 0RF omeprazole 20 mg Capsule,Delayed Release(Dr/Ec) 20 mg PO DAILY 0RF lisinopril 5 mg Tablet 5 mg PO DAILY 0RF aspirin 81 mg Tablet,Delayed Release (Dr/Ec) 81 mg PO DAILY 0RF venlafaxine 75 mg Capsule,Extended Release 24hr 75 mg PO DAILY Qty: 30 0RF clonazepam 1 mg Tablet 1 mg PO BID Qty: 0 0RF nicotine 21 mg/24 hr Patch 24 Hour 21 mg transdermal DAILY Qty: 30 0RF Referrals: Daron Oconnell PA [Primary Care Provider] - Daron Adames [Physician] - 1 week (Call today to make a follow-up appointment within 1-2 weeks) Print Language: Upper Sorbian
[2022-01-23] MEDS: cephALEXin 500 MG CAPSULE PO (12:11)
[2022-01-23 13:15] LABS: MANUAL DIFF FLAG NO
[2022-01-23] MEDS: 0.9 % Sodium Chloride 1,000 ML 999 ML IVCONT (13:21)
[2022-01-23 13:25] LABS: INTERNATIONAL NORM RATIO 1.1 (0.9-1.1)
[2022-01-23 13:26] LABS: Basophils Absolute Auto 0.1 X10*3/uL (0.0-0.2); Basophils Percent Auto 0.4 % (0-2); Eosinophils Absolute Auto 0.2 X10*3/uL (0.0-0.4); Eosinophils Percent Auto 1.8 % (0-4); Hematocrit 49.6 % (42.0-52.0); Hemoglobin 16.4 g/dl (14.0-18.0); Imm Gran Abs Auto 0.03 X10*3/uL (0.00-0.03); Imm Gran Pct Auto 0.3 % (0.0-0.4); Lymphocytes Absolute Auto 2.3 X10*3/uL (1.2-4.9); Lymphocytes Percent Auto 20.2 % (20-40); Mean Corpuscular HGB Conc 33.1 g/dl (31.0-36.0); Mean Corpuscular Hemoglobin 30.3 pg (27.0-33.0); Mean Corpuscular Volume 91.7 fL (80.0-98.0); Mean Platelet Volume 10.2 fL (9.4-12.4); Monocytes Absolute Auto 0.7 X10*3/uL (0.1-1.2); Monocytes Percent Auto 5.8 % (2-11); Neutrophils Absolute Auto 8.2 x10*3/uL (2.0-8.3); Neutrophils Percent Auto 71.5 % (45-73); Platelet Count 396 X10*3/uL (160-400); Red Blood Count 5.41 X10*6/uL (4.60-5.80); Red Cell Distribution Width 12.5 % (11.0-16.0); White Blood Count 11.5 X10*3/uL (4.8-10.8)
--- NOTE | 2022-01-23 13:27 | PC.NURSE ---
sepsis protocol labs sent, 20G IV placed in right medial antecubetal, running 0.9% NaCl. IV site asymptomatic.
[2022-01-23 13:35] LABS: COVID-19 Test Negative (Negative); IDNOW Serial# 55D5AD1C
[2022-01-23 13:39] LABS: Lactic Acid 0.9 mmol/L (0.5-2.0)
[2022-01-23] MEDS: Piperacillin Sodium/Tazobactam 3.375 GM in 0.9 % Sodium Chloride 50 ML IV ×2 (13:44→21:38)
[2022-01-23 13:48] VITALS: BP 114/83; PULSE 74; RESP 18; TEMP 37.2; O2SAT 99
--- NOTE | 2022-01-23 13:57 | PHA.MEDREC ---
Pharmacy Consult ? Medication Reconciliation Pharmacy has completed the medication reconciliation. No remarkable issues. Vonda Dominguez, EzraD
[2022-01-23 14:30] LABS: Alanine Aminotransferase 18 U/L (0-40); Albumin Level 4.3 g/dL (3.5-5.0); Alkaline Phosphatase 37 U/L (39-117); Anion Gap 17 (12-20); Aspartate Amino Transferase 20 U/L (5-37); Bilirubin Total 0.6 mg/dL (0.0-1.0); Blood Urea Nitrogen 17 mg/dL (9-16); C Reactive Protein 3.56 mg/dL (< or = 0.50); Calcium 10.1 mg/dL (8.4-10.2); Carbon Dioxide 26 mmol/L (22-29); Chloride 101 mmol/L (96-108); Creatinine Clr Calc Pharmacy 68.9; Estimated Glomerular Filt Rate 59; Glucose Random 97 mg/dL (60-115); Potassium 4.7 mmol/L (3.3-5.1); Sodium 139 mmol/L (135-145)
[2022-01-23] MEDS: vancomycin HCL 1,250 MG in 0.9 % Sodium Chloride 250 ML 166.67 MG IV (14:30)
--- NOTE | 2022-01-23 14:37 | PC.NURSE ---
PT A+OX3, STEADY GAIT, STATES HE HAS BEEN TAKING CARE OF HIS INGROWN TOE NAIL FOR MONTHS BY SELF. YESTERDAY PT STATES HE SQUEEZED THE TIP OF HIS LEFT FOOT GREAT TOE AND SOME WHITE PUS SQUIRTED OUT AND HE WAS CONCERNED THAT THERE WAS STILL A PIECE OF NAIL STUCK. PT CONVERSATING WITH NURSING STAFF, COOPERATIVE, VSS, DRINKING PO FLUIDS AT THIS TIME. DENIES ANY CP, SOB, OR DIZZINESS. PT IS AWARE OF PLAN FOR ADMISSION.
--- NOTE | 2022-01-23 15:40 | PM.IMHP ---
History of Present Illness Date of Service: 01/23/22 Attending physician on admission: Lenin Pan Chief Complaint: foot infection 61-year-old male with past medical history of hypertension, dyslipidemia-who came to the hospital because of left foot pain mild to touch as well as possible ingrown toenail/also had some discharge last week. He says that he has on and off in in grown toenail problem and he manages it with self clipping the nail and cutting it but last time more than a week ago he tried to cut his nail on the left side and afterwards started having some pain and also some discharge. Patient denies any fever or chills, the pain in big toe is mostly when touch it, no visible discharge currently. 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 He also says that he has borderline diabetes which he manages with the made control and diabetic diet. Not on any diabetic medications. Denies any new complaint of chest pain or shortness of breath or abdominal pain or fever or chills or nausea or vomiting Denies any cough Denies any weakness or numbness. 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 Social history: Patient lives alone, patient has and he quit drinking, smoking cigarette but uses marijuana recreationally. Review of Systems Review of Systems: As above. Yes all other systems are reviewed and are negative [facility] Medical History Amputation finger Diabetes H/O ETOH abuse Smoker Pertinent family history: Both mother-had lung cancer and father-lung cancer, also had CABG. Social History Household Members: None Household Members Other:: Self Housing: Other Do you presently have visiting nurse or other home services: No Patient Tobacco Use Status: Current everyday Tobacco user Tobacco use type: Cigarette Cigarette Packs Per Day: 1 Cigarettes Per Day: 10 Second Hand Smoke Exposure: No Substance Use Type: Marijuana and Caffiene Advance Directives: No Advance Directives Information Provided: No service: Yes (Pt was in the [employer].) Sexual orientation: Straight/Heterosexual Meds Allergies Allergy/AdvReac Type Severity Reaction Status Date / Time codeine [CODEINE] AdvReac Severe Nausea Verified 01/23/22 10:17 Active Medications: Current Medications Aspirin (Aspirin Enteric Coated 81 Mg Tablet.) 81 mg PO DAILY [facility] Atorvastatin Calcium (Atorvastatin Calcium 20 Mg Tablet) 20 mg PO DAILY [facility] Clonazepam (Clonazepam 1 Mg Tablet) 1 mg PO BID [facility] Piperacillin Sod/Tazobactam (Sod 3.375 gm/ Sodium Chloride) 50 mls @ 100 mls/hr IV Q6H [facility] Lactated Ringer's (Lr) 1,000 mls @ 80 mls/hr IVCONT .[id number] [facility] Nicotine (Nicotine 21 Mg Patch.Td24) 21 mg TRANSDERMA DAILY [facility] Omeprazole (Omeprazole 20 Mg Capsule.) 20 mg PO DAILY [facility] Pharmacy Consult (Consult Rx Perform Med Rec) 1 each MISCELLANE ONCE PRN PRN Reason: Consult order Pharmacy Consult (Consult Rx Vancomycin Dosing) 1 each MISCELLANE DAILY PRN PRN Reason: Consult order Propranolol HCl (Propranolol Hcl 10 Mg Tablet) 10 mg PO BID PRN; Protocol PRN Reason: NEEDED Sodium Chloride (0.9 % Sodium Chloride Flush 3 Ml Syringe) 3 ml IVFLUSH QSHIFT [facility] Venlafaxine HCl (Venlafaxine Hcl Er 150 Mg Cap.Er.24h) 150 mg PO DAILY [facility] Home Medications Medication Instructions Recorded Confirmed Last Taken Type aspirin 81 mg tablet,delayed 81 mg PO DAILY 11/11/21 01/23/22 01/23/22 History release atorvastatin 20 mg tablet 20 mg PO DAILY 11/11/21 01/23/22 01/23/22 History lisinopril 5 mg tablet 5 mg PO DAILY 11/11/21 01/23/22 01/23/22 History omeprazole 20 mg capsule,delayed 20 mg PO DAILY 11/11/21 01/23/22 01/23/22 History release propranolol 10 mg tablet 10 mg PO BID PRN 11/11/21 01/23/22 Unknown History venlafaxine 150 mg 1 cap PO DAILY 01/23/22 01/23/22 01/23/22 History capsule,extended release 24 hr Physical Exam Vital Signs and Narrative: Vital Signs: Last Vital Signs Temp 99.0 F 01/23/22 13:48 Pulse 74 01/23/22 13:48 Resp 18 01/23/22 13:48 BP 114/83 01/23/22 13:48 Pulse Ox 99 01/23/22 13:48 BMI result Body Mass Index 30.6 Appearance: Alert.? Oriented X3.? not in distress.? Eyes: Pupils equal, round and reactive to light.? Sclera nonicteric.? ENT: Pharynx normal.? Moist mucous membranes. cvs: rrr, [id number] , no murmur res: clear to auscultation ,no rhonchii or wheezing abd: no rebound or guarding ,nt, bs present. ext pulses present , no cyanosis , left foot -has mild erosion below nail area , no visible discharge but has mild erythema of big toe. neuro: axo3 , nonfocal. psych : denies feels depressed or sad, feels plesant. Results Labs CBC and Chem 7: 01/23/22 13:09 01/23/22 13:09 Labs: Laboratory Results - last 24 hr 01/23/22 01/23/22 01/23/22 13:09 13:09 13:09 MCV 91.7 MCH 30.3 MCHC 33.1 RDW 12.5 Plt Count 396 D MPV 10.2 Immature Gran % (Auto) 0.3 Neut % (Auto) 71.5 Lymph % (Auto) 20.2 Douglas % (Auto) 5.8 Eos % (Auto) 1.8 Baso % (Auto) 0.4 Lymph # (Auto) 2.3 Douglas # (Auto) 0.7 Eos # (Auto) 0.2 Baso # (Auto) 0.1 Abs Immat Gran (auto) 0.03 Absolute Neuts (auto) 8.2 Absolute Nucleated RBC 0.000 Nucleated RBC % (auto) 0.0 PT 13.0 INR 1.1 Anion Gap 17 Estim Creat Clear Calc 68.9 Estimated GFR 59 Random Glucose 97 Lactic Acid Calcium 10.1 Magnesium 2.0 Total Bilirubin 0.6 AST 20 ALT 18 Alkaline Phosphatase 37 L C-Reactive Protein 3.56 H Total Protein 8.0 Albumin 4.3 COVID-19 (RG) COVID-19 Clin Com 01/23/22 01/23/22 13:13 13:13 MCV MCH MCHC RDW Plt Count MPV Immature Gran % (Auto) Neut % (Auto) Lymph % (Auto) Douglas % (Auto) Eos % (Auto) Baso % (Auto) Lymph # (Auto) Douglas # (Auto) Eos # (Auto) Baso # (Auto) Abs Immat Gran (auto) Absolute Neuts (auto) Absolute Nucleated RBC Nucleated RBC % (auto) PT INR Anion Gap Estim Creat Clear Calc Estimated GFR Random Glucose Lactic Acid 0.9 Calcium Magnesium Total Bilirubin AST ALT Alkaline Phosphatase C-Reactive Protein Total Protein Albumin COVID-19 (RG) Negative COVID-19 Clin Com See Note Imaging Radiologist's Impressions: Impressions Toe X-Ray 01/23/22 11:05 IMPRESSION: Lytic destructive lesion of the terminal tuft of the distal phalanx first toe with associated soft tissue swelling. Findings certainly would be consistent with osteomyelitis. Metastatic disease would be another consideration although less likely. Assessment and Plan (1) Osteomyelitis: Status: Acute (2) RICARDO (acute kidney injury): Status: Acute Plan 61-year-old male with history of hypertension and dyslipidemia came to the hospital because of left toe infection found to have osteomyelitis on x-ray. 1. Left toe osteomyelitis Leukocytosis WBC 11.5 CRP is 3.56,ESr pending Lactic acid normal, blood culture pending Patient was started on broad-spectrum IV antibiotics, gentle hydration Added anti fungal topical. Id evaluation 2. Hypertension : Seems stable, hold lisinopril, will add amlodipine. 3. Dyslipidemia: Continue atorvastatin. 4. Hyperglycemia: Patient claims that he has borderline diabetes and managing with diet and weight control. Will add diabetic diet, get hemoglobin A1c,poc 5. RICARDO: Seems to be improving, Will add gentle hydration and monitor closely. 6. DVT prophylaxis: SubQ Lovenox. Above management discussed with patient in detail length including use of IV fluid and antibiotics-patient understand and in agreement with the plan, time spent 70 minute, patient is full code. Considering new osteomyelitis-need of IV antibiotic patient may need 2 midnight stay. Quality Stroke Does the patient have a stroke diagnosis?: No VTE Prior VTE?: No VTE Risk Level:: Medical - moderate - high VTE Device Contraindication: N/A - Device Ordered VTE Drug Contraindication: N/A - Med Ordered
[2022-01-23] MEDS: Lactated Ringers 1,000 ML 80 ML IVCONT (16:12)
[2022-01-23 16:25] LABS: Estimated Average Glucose 117 mg/dL; Hemoglobin A1c % 5.7 %
[2022-01-23] MEDS: Enoxaparin Sodium 40 MG/0.4 ML SYRINGE SUBCUT (16:37)
--- NOTE | 2022-01-23 17:04 | PC.NURSE ---
REPORT GIVEN TO JAMES RAYMUNDO. ADMITTED TO [id number].
[2022-01-23 17:26] VITALS: BP 162/88; PULSE 68; RESP 18; TEMP 36.2; O2SAT 100
[2022-01-23 18:05] LABS: Erythrocyte Sedimentation Rate 54 MM/HR (0-15)
--- NOTE | 2022-01-23 18:13 | PHA.PROG ---
Admission Date/Time: January 23, 2022 15:34 Indication: Weight in k.3 kg Adjusted body weight in K.56 [place] body weight in Kg: Obesity Dosing Indication % IBW: Serum Creatinine - Last 168 Hours 01/23/22 13:09 Creatinine 1.25 Estimated CrCl and GFR - Last 168 Hours 01/23/22 13:09 Estim Creat Clear Calc 68.9 Estimated GFR 59 Vancomycin Loading Dose: 1250 MG Current Vancomycin Dosing Regimen: 1500 MG Q24 Vancomycin Monitoring using AUC goal of 400 - 600 range with trough as surrogate marker: Date and Time for next Vancomycin Level to be drawn:01/25 @1200 Pharmacist Comments on Vancomycin Plan: Precited auc is 444 and trough is 12.5 Vancomycin dosing will take advantage of [employer] as a clinical decision support tool that uses Bayesian modeling to calculate individual patient's pharmacokinetic parameters and forecast the patient's drug concentration time course with the target goal AUC 24 range of 400 - 600 mg/L/hr.
[2022-01-23 20:00] VITALS: BP 104/63; PULSE 70; RESP 18; TEMP 36.9; O2SAT 96
[2022-01-23 20:40] LABS: Glucose, Whole Blood 91 mg/dL (60-115)
[2022-01-23] MEDS: clonazePAM 1 MG TABLET PO (21:38)
[2022-01-23 22:00] VITALS: BP 125/68; PULSE 61
[2022-01-23] MEDS: Propranolol HCL 10 MG TABLET PO (22:03)
[2022-01-23 23:19] VITALS: BP 110/68; PULSE 53; RESP 17; TEMP 36.7; O2SAT 98
[2022-01-24] MEDS: 0.9 % Sodium Chloride Flush 3 ML SYRINGE IVFLUSH ×2 (00:23→15:53)
[2022-01-24 03:35] VITALS: BP 129/74; PULSE 84; RESP 18; TEMP 36.2; O2SAT 98
[2022-01-24] MEDS: Piperacillin Sodium/Tazobactam 3.375 GM in 0.9 % Sodium Chloride 50 ML IV ×4 (03:57→21:53)
[2022-01-24] MEDS: Omeprazole 20 MG CAPSULE.DR PO (05:49)
[2022-01-24 06:01] LABS: MANUAL DIFF FLAG NO
[2022-01-24 06:06] LABS: Basophils Absolute Auto 0.1 X10*3/uL (0.0-0.2); Basophils Percent Auto 0.7 % (0-2); Eosinophils Absolute Auto 0.3 X10*3/uL (0.0-0.4); Eosinophils Percent Auto 3.1 % (0-4); Hemoglobin 15.6 g/dl (14.0-18.0); Imm Gran Abs Auto 0.03 X10*3/uL (0.00-0.03); Imm Gran Pct Auto 0.4 % (0.0-0.4); Lymphocytes Absolute Auto 2.4 X10*3/uL (1.2-4.9); Lymphocytes Percent Auto 28.9 % (20-40); Mean Corpuscular HGB Conc 33.2 g/dl (31.0-36.0); Mean Corpuscular Hemoglobin 30.7 pg (27.0-33.0); Mean Corpuscular Volume 92.5 fL (80.0-98.0); Mean Platelet Volume 10.1 fL (9.4-12.4); Monocytes Absolute Auto 0.6 X10*3/uL (0.1-1.2); Monocytes Percent Auto 7.6 % (2-11); Neutrophils Absolute Auto 4.8 x10*3/uL (2.0-8.3); Neutrophils Percent Auto 59.3 % (45-73); Platelet Count 327 X10*3/uL (160-400); Red Blood Count 5.08 X10*6/uL (4.60-5.80); Red Cell Distribution Width 12.3 % (11.0-16.0); White Blood Count 8.1 X10*3/uL (4.8-10.8)
[2022-01-24 06:40] LABS: Anion Gap 14 (12-20); Blood Urea Nitrogen 13 mg/dL (9-16); Calcium 9.7 mg/dL (8.4-10.2); Carbon Dioxide 28 mmol/L (22-29); Chloride 104 mmol/L (96-108); Creatinine Clr Calc Pharmacy 69.4; Estimated Glomerular Filt Rate 59; Glucose Random 105 mg/dL (60-115); Potassium 5.1 mmol/L (3.3-5.1); Sodium 141 mmol/L (135-145)
[2022-01-24 07:29] VITALS: BP 133/83; PULSE 61; RESP 18; TEMP 36.4; O2SAT 97
--- NOTE | 2022-01-24 07:42 | P.PNIM_ITS ---
Subjective Subjective Date of Service: 01/24/22 Interval History: left foot osteo, ingrown toenail Review of Systems Still has some left foot pain, sensitive to touch. Denies any nausea or fever or chills or cough or phlegm. Physical Exam Vital Signs: Vital Signs: Last Vital Signs Temp 97.5 F 01/24/22 07:29 Pulse 61 01/24/22 07:29 Resp 18 01/24/22 07:29 BP 133/83 01/24/22 07:29 Pulse Ox 97 01/24/22 07:29 BMI result Body Mass Index 30.6 Appearance: Alert.? Oriented X3.? not in distress.? Eyes: Pupils equal, round and reactive to light.? Sclera nonicteric.? ENT: Pharynx normal.? Moist mucous membranes. cvs: rrr, [id number] , no murmur res: clear to auscultation ,no rhonchii or wheezing abd: no rebound or guarding ,nt, bs present. ext pulses present , no cyanosis , left foot -has mild erosion below nail area , no visible discharge but has mild erythema of big toe. neuro: axo3 , nonfocal. Objective Data Active Medications Aspirin (Aspirin Enteric Coated 81 Mg Tablet.) 81 mg PO DAILY [facility] Atorvastatin Calcium (Atorvastatin Calcium 20 Mg Tablet) 20 mg PO BEDTIME [facility] Clonazepam (Clonazepam 1 Mg Tablet) 1 mg PO BID [facility] Last Admin: 01/23/22 21:38 Dose: 1 mg Documented by: BRE Clotrimazole (Clotrimazole 1 % Cream 15 Gm Tube) 1 appl TOPICAL BID [facility]; Pr otocol Last Admin: 01/23/22 22:35 Dose: Not Given Documented by: BRE Non-Admin Reason: Med Not Available Enoxaparin Sodium (Enoxaparin Sodium 40 Mg/0.4 Ml Syringe) 40 mg SUBCUT Q24H [facility] Last Admin: 01/23/22 16:37 Dose: 40 mg Documented by: SOHAIL Piperacillin Sod/Tazobactam (Sod 3.375 gm/ Sodium Chloride) 50 mls @ 100 mls/hr IV Q6H [facility] Last Infusion: 01/24/22 04:49 Dose: 0 mls/hr Documented by: ROLO Lactated Ringer's (Lr) 1,000 mls @ 80 mls/hr IVCONT .[id number] [facility] Last Infusion: 01/24/22 07:27 Dose: 0 mls/hr Documented by: JAY Vancomycin HCl 1,500 mg/ (Sodium Chloride) 500 mls @ 333.333 mls/hr IV Q24H [facility] Nicotine (Nicotine 21 Mg Patch.Td24) 21 mg TRANSDERMA DAILY [facility] Omeprazole (Omeprazole 20 Mg Capsule.Dr) 20 mg PO DAILY@0630 [facility] Last Admin: 01/24/22 05:49 Dose: 20 mg Documented by: ROLO Pharmacy Consult (Consult Rx Perform Med Rec) 1 each MISCELLANE ONCE PRN PRN Reason: Consult order Pharmacy Consult (Consult Rx Vancomycin Dosing) 1 each MISCELLANE DAILY PRN PRN Reason: Consult order Propranolol HCl (Propranolol Hcl 10 Mg Tablet) 10 mg PO BID PRN; Protocol PRN Reason: NEEDED Last Admin: 01/23/22 22:03 Dose: 10 mg Documented by: BRE Sodium Chloride (0.9 % Sodium Chloride Flush 3 Ml Syringe) 3 ml IVFLUSH QSHIFT [facility] Last Admin: 01/24/22 00:23 Dose: 3 ml Documented by: ROLO Venlafaxine HCl (Venlafaxine Hcl Er 150 Mg Cap.Er.24h) 150 mg PO DAILY [facility] Labs CBC & Chem 7: 01/24/22 05:41 01/24/22 05:41 Labs: Laboratory Results - last 24 hr 01/23/22 01/23/22 01/23/22 13:09 13:09 13:09 MCV 91.7 MCH 30.3 MCHC 33.1 RDW 12.5 Plt Count 396 D MPV 10.2 Immature Gran % (Auto) 0.3 Neut % (Auto) 71.5 Lymph % (Auto) 20.2 Luna % (Auto) 5.8 Eos % (Auto) 1.8 Baso % (Auto) 0.4 Lymph # (Auto) 2.3 Luna # (Auto) 0.7 Eos # (Auto) 0.2 Baso # (Auto) 0.1 Abs Immat Gran (auto) 0.03 Absolute Neuts (auto) 8.2 Absolute Nucleated RBC 0.000 Nucleated RBC % (auto) 0.0 ESR PT 13.0 INR 1.1 Anion Gap 17 Estim Creat Clear Calc 68.9 Estimated GFR 59 POC Glucose Random Glucose 97 Estimat Average Glucose Hemoglobin A1c % Lactic Acid Calcium 10.1 Magnesium 2.0 Total Bilirubin 0.6 AST 20 ALT 18 Alkaline Phosphatase 37 L C-Reactive Protein 3.56 H Total Protein 8.0 Albumin 4.3 COVID-19 (RG) COVID-19 Independent IP Com 01/23/22 01/23/22 01/23/22 13:09 13:09 13:13 MCV MCH MCHC RDW Plt Count MPV Immature Gran % (Auto) Neut % (Auto) Lymph % (Auto) Luna % (Auto) Eos % (Auto) Baso % (Auto) Lymph # (Auto) Luna # (Auto) Eos # (Auto) Baso # (Auto) Abs Immat Gran (auto) Absolute Neuts (auto) Absolute Nucleated RBC Nucleated RBC % (auto) ESR 54 H PT INR Anion Gap Estim Creat Clear Calc Estimated GFR POC Glucose Random Glucose Estimat Average Glucose 117 Hemoglobin A1c % 5.7 Lactic Acid 0.9 Calcium Magnesium Total Bilirubin AST ALT Alkaline Phosphatase C-Reactive Protein Total Protein Albumin COVID-19 (RG) COVID-19 [employer] 01/23/22 01/23/22 01/24/22 13:13 20:19 05:41 MCV 92.5 MCH 30.7 MCHC 33.2 RDW 12.3 Plt Count 327 MPV 10.1 Immature Gran % (Auto) 0.4 Neut % (Auto) 59.3 Lymph % (Auto) 28.9 Luna % (Auto) 7.6 Eos % (Auto) 3.1 Baso % (Auto) 0.7 Lymph # (Auto) 2.4 Luna # (Auto) 0.6 Eos # (Auto) 0.3 Baso # (Auto) 0.1 Abs Immat Gran (auto) 0.03 Absolute Neuts (auto) 4.8 Absolute Nucleated RBC 0.000 Nucleated RBC % (auto) 0.0 ESR PT INR Anion Gap Estim Creat Clear Calc Estimated GFR POC Glucose 91 Random Glucose Estimat Average Glucose Hemoglobin A1c % Lactic Acid Calcium Magnesium Total Bilirubin AST ALT Alkaline Phosphatase C-Reactive Protein Total Protein Albumin COVID-19 (RG) Negative COVID-19 Clin [place] See Note 01/24/22 05:41 MCV MCH MCHC RDW Plt Count MPV Immature Gran % (Auto) Neut % (Auto) Lymph % (Auto) Luna % (Auto) Eos % (Auto) Baso % (Auto) Lymph # (Auto) Luna # (Auto) Eos # (Auto) Baso # (Auto) Abs Immat Gran (auto) Absolute Neuts (auto) Absolute Nucleated RBC Nucleated RBC % (auto) ESR PT INR Anion Gap 14 Estim Creat Clear Calc 69.4 Estimated GFR 59 POC Glucose Random Glucose 105 Estimat Average Glucose Hemoglobin A1c % Lactic Acid Calcium 9.7 Magnesium Total Bilirubin AST ALT Alkaline Phosphatase C-Reactive Protein Total Protein Albumin COVID-19 (RG) COVID-19 Clin Com Assessment and Plan (1) Osteomyelitis: Status: Acute (2) RICARDO (acute kidney injury): Status: Acute Plan 61-year-old male with history of hypertension and dyslipidemia came to the hospital because of left toe infection found to have osteomyelitis on x-ray. 1. Left toe osteomyelitis Leukocytosis WBC 11.5 CRP is 3.56,ESr 54 Lactic acid normal, blood culture pending Patient was started on broad-spectrum IV antibiotics, gentle hydration Added anti fungal topical.surgery eval for ingrown toenail Id evaluation 2. Hypertension :? Seems stable, hold lisinopril, will add amlodipine. 3. Dyslipidemia: Continue atorvastatin. 4. Hyperglycemia:? Patient claims that he has borderline diabetes and managing with diet and weight control.? continue diabetic diet, get hemoglobin A1c 5.7,poc 5. RICARDO:? Seems to be improving, Will add gentle hydration and monitor closely. 6. DVT prophylaxis:? SubQ Lovenox. need for inpatient:toe osteomyelitis,ingrown toenail Quality Stroke Does the patient have a stroke diagnosis?: No VTE Prior VTE?: No VTE Risk Level:: Medical - moderate - high VTE Device Contraindication: N/A - Device Ordered VTE Drug Contraindication: N/A - Med Ordered
[2022-01-24] MEDS: Nicotine 21 MG PATCH.TD24 TRANSDERMA (07:43)
[2022-01-24] MEDS: Aspirin Enteric Coated 81 MG TABLET.DR PO (07:44)
[2022-01-24] MEDS: clonazePAM 1 MG TABLET PO ×2 (07:44→19:46)
[2022-01-24] MEDS: Venlafaxine HCl ER 150 MG CAP.ER.24H PO (07:45)
[2022-01-24] MEDS: Lactated Ringers 1,000 ML 80 ML IVCONT (07:45)
[2022-01-24 07:58] LABS: Glucose, Whole Blood 97 mg/dL (60-115)
--- NOTE | 2022-01-24 09:34 | MHC.CM.PN ---
PTG REPORTS HE LIVES ALONE AND IS INDEPENDENT WITH CARE PT HAS NO DME AND NO SERVICES IN THE HOME PT IS A AND 100% CONNECTED PER HIS REPORT HE REPORTS HE HAS A HCP NAMING HIS SISTER HIS AGENT, COPY REQUESTED PCP: AUSTIN BALDWIN PT REPORTS BEING COVID-19 VACCINATED X3 IMM AND VA RIGHTS DELIVERED DC PLAN IS TBD HOME WITH NO SERVICES VS HOME WITH [facility] AND [place] VS STR
[2022-01-24 11:41] LABS: Glucose, Whole Blood 106 mg/dL (60-115)
[2022-01-24 11:47] VITALS: BP 124/82; PULSE 69; RESP 18; TEMP 36.7; O2SAT 98
--- NOTE | 2022-01-24 13:26 | MHC.CLN ---
NUTRITION INCREASED DIET KCALS TO DIABETIC 2000 KCALS. REVIEW OF WEIGHT HX SHOWS 4% WEIGHT LOSS SINCE 11/12/21 ADMISSION.
[2022-01-24] MEDS: vancomycin HCL 1,500 MG in 0.9 % Sodium Chloride 500 ML 333.33 MG IV (14:10)
--- NOTE | 2022-01-24 14:15 | P.CNID_ITS ---
History of Present Illness Data of Consult Service Date: 01/24/22 Requesting physician: Lenin Pan Primary Care Provider: EDWIGE Guo HPI Reason for consult: left great toe osteomyelitis He presents with left great toe erythema and yellow purulence. He had symptoms worsening over last week after he cut his own nails. He was using a plier and trying to relieve ingrown toenails. He has no fever or chills. He has no MRSA or prior foot infection. He is diet controlled diabetic. Review of Systems Review of Systems: Yes all other systems are reviewed and are negative [facility] Past Medical History Medical History Amputation finger Diabetes H/O ETOH abuse Smoker Family History Family history: reviewed and not pertinent Social History Social History Household Members: None Household Members Other:: Self Housing: Apartment Housing Other:: lives in basement of a home Do you presently have visiting nurse or other home services: No Patient Tobacco Use Status: Former Tobacco user Quit Date: 2 weeks ago Tobacco use type: Cigarette Cigarette Packs Per Day: 0.5 Cigarettes Per Day: 10.0 Years Smoked: 28 Second Hand Smoke Exposure: No Substance Use Type: Marijuana and Prescription Drugs service: Yes (Pt was in the [employer].) Current occupational status: disabled Sexual orientation: Straight/Heterosexual Meds Allergies Allergy/AdvReac Type Severity Reaction Status Date / Time codeine [CODEINE] AdvReac Severe Nausea Verified 01/23/22 10:17 Active Medications: Current Medications Aspirin (Aspirin Enteric Coated 81 Mg Tablet.) 81 mg PO DAILY [facility] Last Admin: 01/24/22 07:44 Dose: 81 mg Documented by: Atorvastatin Calcium (Atorvastatin Calcium 20 Mg Tablet) 20 mg PO BEDTIME [facility] Clonazepam (Clonazepam 1 Mg Tablet) 1 mg PO BID [facility] Last Admin: 01/24/22 07:44 Dose: 1 mg Documented by: Clotrimazole (Clotrimazole 1 % Cream 15 Gm Tube) 1 appl TOPICAL BID [facility]; Protocol Last Admin: 01/24/22 07:45 Dose: Not Given Documented by: Enoxaparin Sodium (Enoxaparin Sodium 40 Mg/0.4 Ml Syringe) 40 mg SUBCUT Q24H [facility] Last Admin: 01/23/22 16:37 Dose: 40 mg Documented by: Piperacillin Sod/Tazobactam (Sod 3.375 gm/ Sodium Chloride) 50 mls @ 100 mls/hr IV Q6H [facility] Last Infusion: 01/24/22 11:39 Dose: Infused Documented by: Lactated Ringer's (Lr) 1,000 mls @ 80 mls/hr IVCONT .[id number] [facility] Last Admin: 01/24/22 07:45 Dose: 80 mls/hr Documented by: Vancomycin HCl 1,500 mg/ (Sodium Chloride) 500 mls @ 333.333 mls/hr IV Q24H [facility] Last Admin: 01/24/22 14:10 Dose: 333.33 mls/hr Documented by: Nicotine (Nicotine 21 Mg Patch.Td24) 21 mg TRANSDERMA DAILY [facility] Last Admin: 01/24/22 07:43 Dose: 21 mg Documented by: Omeprazole (Omeprazole 20 Mg Capsule.) 20 mg PO DAILY@0630 [facility] Last Admin: 01/24/22 05:49 Dose: 20 mg Documented by: Pharmacy Consult (Consult Rx Perform Med Rec) 1 each MISCELLANE ONCE PRN PRN Reason: Consult order Pharmacy Consult (Consult Rx Vancomycin Dosing) 1 each MISCELLANE DAILY PRN PRN Reason: Consult order Propranolol HCl (Propranolol Hcl 10 Mg Tablet) 10 mg PO BID PRN; Protocol PRN Reason: NEEDED Last Admin: 01/23/22 22:03 Dose: 10 mg Documented by: Sodium Chloride (0.9 % Sodium Chloride Flush 3 Ml Syringe) 3 ml IVFLUSH QSHIFT [facility] Last Admin: 01/24/22 07:45 Dose: Not Given Documented by: Venlafaxine HCl (Venlafaxine Hcl Er 150 Mg Cap.Er.24h) 150 mg PO DAILY [facility] Last Admin: 01/24/22 07:45 Dose: 150 mg Documented by: Home Medications Medication Instructions Recorded Confirmed Last Taken Type aspirin 81 mg tablet,delayed 81 mg PO DAILY 11/11/21 01/23/22 01/23/22 History release atorvastatin 20 mg tablet 20 mg PO DAILY 11/11/21 01/23/22 01/23/22 History lisinopril 5 mg tablet 5 mg PO DAILY 11/11/21 01/23/22 01/23/22 History omeprazole 20 mg capsule,delayed 20 mg PO DAILY 11/11/21 01/23/22 01/23/22 History release propranolol 10 mg tablet 10 mg PO BID PRN 11/11/21 01/23/22 Unknown History venlafaxine 150 mg 1 cap PO DAILY 01/23/22 01/23/22 01/23/22 History capsule,extended release 24 hr Physical Exam Vital Signs: Vital Signs: Last Vital Signs Temp 98.0 F 01/24/22 11:47 Pulse 69 01/24/22 11:47 Resp 18 01/24/22 11:47 BP 124/82 01/24/22 11:47 Pulse Ox 98 01/24/22 11:47 BMI result Body Mass Index 30.6 Const: General: cooperative HEENT: Head: Yes normal to inspection Mouth: Normal oral and palatal mucosa present Cardio: Rate: regular rate Rhythm: regular rhythm GI: Palpation (GI): Soft to palpation and nontender Extrem: Other: left great toe erythematous, ingrown toenails Results Labs CBC & Chem 7: 01/24/22 05:41 01/24/22 05:41 Labs: Short CBC 01/24/22 Range/Units 05:41 WBC 8.1 (4.8-10.8) X10*3/uL Hgb 15.6 (14.0-18.0) g/dl Hct 47.0 (42.0-52.0) % Plt Count 327 (160-400) X10*3/uL BMP 01/23/22 01/24/22 13:09 05:41 Sodium 139 141 Potassium 4.7 5.1 Chloride 101 104 Carbon Dioxide 26 28 BUN 17 H 13 Creatinine 1.25 1.24 Calcium 10.1 9.7 Liver Function 01/23/22 Range/Units 13:09 Total Bilirubin 0.6 (0.0-1.0) mg/dL AST 20 (5-37) U/L ALT 18 (0-40) U/L Alkaline Phosphatase 37 L (39-117) U/L Albumin 4.3 (3.5-5.0) g/dL Assessment and Plan (1) Osteomyelitis: Status: Acute Purulent discharge from nail He has MRSA concern He has osteomyelitis (2) MDD (major depressive disorder), recurrent episode, moderate: Status: Acute Plan Would continue antibiotics. If cultures are negative would give Vancomycin for six weeks and check trough weekly as well as creatinine, CBC and SGOT Probably give po Doxycycline after for one to two months Get Dial Printer to cut nails.
[2022-01-24 15:30] VITALS: BP 142/71; PULSE 67; RESP 20; TEMP 36.9; O2SAT 99
[2022-01-24] MEDS: Enoxaparin Sodium 40 MG/0.4 ML SYRINGE SUBCUT (15:46)
--- NOTE | 2022-01-24 16:18 | PM.CNGS ---
History of Present Illness Consult details Consult date: 01/24/22 Requesting physician: Lenin Pan Narrative: 61-year-old male patient presenting with complaints of left great toe pain. Patient has a history of borderline diabetes and onychomycosis of the left great toe. He reports trimming his toenails along the lateral nail fold to prevent the nail from cutting into the skin. He now has swelling involving the distal phalanx and was found to have osteomyelitis. He is currently being treated with vanco and Zosyn. He reports the pain is somewhat improved but still has some swelling the great toe. He has seen a research and development specialist in the past but recently has been trimming his own nails. X-ray of the toes revealed Lytic destructive lesion of the terminal tuft of the distal phalanx first toe with associated soft tissue swelling. Findings certainly would be consistent with osteomyelitis. Metastatic disease would be another consideration although less likely. Review of Systems Constitutional: Constitutional: Denies chills, Denies fever(s), Denies headache(s) and Denies poor appetite ENT: Denies dizziness and Denies headache(s) Cardiovascular: Cardiovascular: Denies chest pain, Denies rapid heart rate, Denies palpitations and Denies slow heart rate Respiratory: Respiratory: Denies chest congestion, Denies cough, Denies pain on inspiration and Denies wheezing Gastrointestinal: Gastrointestinal: Denies abdominal pain, Denies bloating, Denies change in stool character, Denies constipation, Denies diarrhea, Denies nausea, Denies vomiting and Denies hematemesis Musculoskeletal: Musculoskeletal: Reports as per HPI, Denies back pain, Reports arthralgias, Reports joint swelling and Denies numbness Integumentary/Breasts: Skin/Breast: Reports as per HPI, Reports change in pigmentation, Denies erythema and Denies rash Neurologic: Denies dizziness, Denies headache(s) and Denies numbness Psychiatric: Psychiatric: Denies anxiety and Denies depression Endocrine: Endocrine: Denies palpitations Hematologic/Lymphatic: Hematologic/Lymphatic: Denies easy bleeding, Denies easy bruising and Denies lymphadenopathy Allergic/Immunologic: Allergic/Immunologic: Denies wheezing PMFSH Past Medical History Medical History Amputation finger Diabetes H/O ETOH abuse Smoker Family History Family history: reviewed and not pertinent Social History Social History Household Members: None Household Members Other:: Self Housing: Apartment Housing Other:: lives in basement of a home Do you presently have visiting nurse or other home services: No Patient Tobacco Use Status: Former Tobacco user Quit Date: 2 weeks ago Tobacco use type: Cigarette Cigarette Packs Per Day: 0.5 Cigarettes Per Day: 10.0 Years Smoked: 28 Second Hand Smoke Exposure: No Substance Use Type: Marijuana and Prescription Drugs service: Yes (Pt was in the [email or web address] Current occupational status: disabled Sexual orientation: Straight/Heterosexual Meds Allergies Allergy/AdvReac Type Severity Reaction Status Date / Time codeine [CODEINE] AdvReac Severe Nausea Verified 01/23/22 10:17 Active Medications: Current Medications Aspirin (Aspirin Enteric Coated 81 Mg Tablet.) 81 mg PO DAILY [facility] [place] Last Admin: 01/24/22 07:44 Dose: 81 mg Documented by: Atorvastatin Calcium (Atorvastatin Calcium 20 Mg Tablet) 20 mg PO BEDTIME KIM Clonazepam (Clonazepam 1 Mg Tablet) 1 mg PO BID [facility] [place] Last Admin: 01/24/22 07:44 Dose: 1 mg Documented by: Clotrimazole (Clotrimazole 1 % Cream 15 Gm Tube) 1 appl TOPICAL BID [facility] [place]; Protocol Last Admin: 01/24/22 07:45 Dose: Not Given Documented by: Enoxaparin Sodium (Enoxaparin Sodium 40 Mg/0.4 Ml Syringe) 40 mg SUBCUT Q24H [facility] [place] Last Admin: 01/24/22 15:46 Dose: 40 mg Documented by: Piperacillin Sod/Tazobactam (Sod 3.375 gm/ Sodium Chloride) 50 mls @ 100 mls/hr IV Q6H [facility] [place] Last Admin: 01/24/22 15:47 Dose: 100 mls/hr Documented by: Lactated Ringer's (Lr) 1,000 mls @ 80 mls/hr IVCONT .[id number] [facility] [place] Last Admin: 01/24/22 16:13 Dose: Not Given Documented by: Vancomycin HCl 1,500 mg/ (Sodium Chloride) 500 mls @ 333.333 mls/hr IV Q24H [facility] [place] Last Infusion: 01/24/22 15:58 Dose: Infused Documented by: Nicotine (Nicotine 21 Mg Patch.Td24) 21 mg TRANSDERMA DAILY [facility] [place] Last Admin: 01/24/22 07:43 Dose: 21 mg Documented by: Omeprazole (Omeprazole 20 Mg Capsule.) 20 mg PO DAILY@0630 [facility] [place] Last Admin: 01/24/22 05:49 Dose: 20 mg Documented by: Pharmacy Consult (Consult Rx Perform Med Rec) 1 each MISCELLANE ONCE PRN PRN Reason: Consult order Pharmacy Consult (Consult Rx Vancomycin Dosing) 1 each MISCELLANE DAILY PRN PRN Reason: Consult order Propranolol HCl (Propranolol Hcl 10 Mg Tablet) 10 mg PO BID PRN; Protocol PRN Reason: NEEDED Last Admin: 01/23/22 22:03 Dose: 10 mg Documented by: Sodium Chloride (0.9 % Sodium Chloride Flush 3 Ml Syringe) 3 ml IVFLUSH QSHIFT [facility] [place] Last Admin: 01/24/22 15:53 Dose: 3 ml Documented by: Venlafaxine HCl (Venlafaxine Hcl Er 150 Mg Cap.Er.24h) 150 mg PO DAILY [facility] [place] Last Admin: 01/24/22 07:45 Dose: 150 mg Documented by: Home Medications Medication Instructions Recorded Confirmed Last Taken Type aspirin 81 mg tablet,delayed 81 mg PO DAILY 11/11/21 01/23/22 01/23/22 History release atorvastatin 20 mg tablet 20 mg PO DAILY 11/11/21 01/23/22 01/23/22 History lisinopril 5 mg tablet 5 mg PO DAILY 11/11/21 01/23/22 01/23/22 History omeprazole 20 mg capsule,delayed 20 mg PO DAILY 11/11/21 01/23/22 01/23/22 History release propranolol 10 mg tablet 10 mg PO BID PRN 11/11/21 01/23/22 Unknown History venlafaxine 150 mg 1 cap PO DAILY 01/23/22 01/23/22 01/23/22 History capsule,extended release 24 hr Physical Exam Vital Signs: Vital Signs: Last Vital Signs Temp 98.5 F 01/24/22 15:30 Pulse 67 01/24/22 15:30 Resp 20 01/24/22 15:30 BP 142/71 H 01/24/22 15:30 Pulse Ox 99 01/24/22 15:30 BMI result Body Mass Index 30.6 Const: General: cooperative, comfortable and well developed Nutritional Appearance: well nourished Orientation/consciousness: patient oriented x3 Eyes: Sclerae: sclerae normal EOM: EOMs intact bilaterally Neck: Neck: Yes normal visual inspection Resp: Effort & Inspection: normal respiratory effort, no cough, no respiratory distress and no stridor Cardio: Jugular venous distension: no JVD GI: Inspection: Yes normal to inspection Palpation (GI): Soft to palpation, nontender, no guarding and not rigid Skin: General skin exam: dry skin Rashes: no rashes Neuro: General: patient oriented x3 and no focal motor deficits Extrem: Other: Left great toe with slight edema of the distal phalanx. Nail plate has been trimmed along the lateral nail fold. The great toe has evidence of onychomycosis. No fluctuance is noted along the lateral or proximal nail folds. No evidence of underlying abscess at this time. General: Yes full ROM Ankle/foot/toe images: 1. Site of nail trimming Psych: Appearance: grossly normal Results Labs Result diagrams: 01/24/22 05:41 01/24/22 05:41 Labs: Abnormal lab results 01/23/22 Range/Units 13:09 ESR 54 H (0-15) MM/HR Short CBC 01/24/22 Range/Units 05:41 WBC 8.1 (4.8-10.8) X10*3/uL Hgb 15.6 (14.0-18.0) g/dl Hct 47.0 (42.0-52.0) % Plt Count 327 (160-400) X10*3/uL BMP 01/24/22 05:41 Sodium 141 Potassium 5.1 Chloride 104 Carbon Dioxide 28 BUN 13 Creatinine 1.24 Calcium 9.7 All other labs normal. Assessment and Plan (1) Osteomyelitis: Status: Acute (2) Cellulitis of great toe of left foot: Status: Acute Plan 61-year-old male patient presenting with cellulitis of the left great toe found to have osteomyelitis on x-ray. Surgical consultation requested for possible ingrown toenail. Patient has previously trim the nail along the lateral nail fold and there currently is no abscess appreciated in this location. Patient may benefit from warm soaks of the left foot in warm water with Epson salts. He should follow up with Podiatry for further management of the onychomycosis and for routine nail management. No surgical intervention recommended at this time. Procedures Date of Service Date of Service: 01/24/22
[2022-01-24 16:22] LABS: Glucose, Whole Blood 92 mg/dL (60-115)
[2022-01-24 19:21] VITALS: BP 133/92; PULSE 72; RESP 18; TEMP 36.9; O2SAT 98
[2022-01-24] MEDS: Atorvastatin Calcium 20 MG TABLET PO (19:46)
[2022-01-24] MEDS: Propranolol HCL 10 MG TABLET PO (19:49)
[2022-01-24 19:54] LABS: Glucose, Whole Blood 101 mg/dL (60-115)
[2022-01-24 23:23] VITALS: BP 124/71; PULSE 78; RESP 18; TEMP 36.7; O2SAT 95
[2022-01-25 04:00] VITALS: BP 134/85; PULSE 58; RESP 17; TEMP 36.6; O2SAT 99
[2022-01-25] MEDS: Piperacillin Sodium/Tazobactam 3.375 GM in 0.9 % Sodium Chloride 50 ML IV ×4 (04:02→21:33)
[2022-01-25] MEDS: Lactated Ringers 1,000 ML 80 ML IVCONT (06:07)
[2022-01-25] MEDS: Omeprazole 20 MG CAPSULE.DR PO (06:07)
[2022-01-25] MEDS: clonazePAM 1 MG TABLET PO ×2 (07:22→19:49)
[2022-01-25] MEDS: Venlafaxine HCl ER 150 MG CAP.ER.24H PO (07:22)
[2022-01-25] MEDS: Nicotine 21 MG PATCH.TD24 TRANSDERMA (07:22)
[2022-01-25] MEDS: Aspirin Enteric Coated 81 MG TABLET.DR PO (07:22)
[2022-01-25] MEDS: Clotrimazole 1 % Cream 15 GM TUBE 1 APPL TOPICAL (07:24)
[2022-01-25 07:38] VITALS: BP 122/74; PULSE 70; RESP 19; TEMP 36.2; O2SAT 99
[2022-01-25 07:38] LABS: Glucose, Whole Blood 141 mg/dL (60-115)
--- NOTE | 2022-01-25 07:39 | HO.PM.IMPN ---
Subjective Subjective Date of Service: 01/25/22 Interval History: left foot osteo, ingrown toenail Review of Systems Still has some left foot pain,similar to yesterday Denies any nausea or fever or chills or cough or phlegm. Physical Exam Vital Signs: Vital Signs: Last Vital Signs Temp 97.2 F 01/25/22 07:38 Pulse 70 01/25/22 07:38 Resp 19 01/25/22 07:38 BP 122/74 01/25/22 07:38 Pulse Ox 99 01/25/22 07:38 BMI result Body Mass Index 30.6 Appearance: Alert.? Oriented X3.? not in distress.? Eyes: Pupils equal, round and reactive to light.? Sclera nonicteric.? ENT: Pharynx normal.? Moist mucous membranes. cvs: rrr, [id number] , no murmur res: clear to auscultation ,no rhonchii or wheezing abd: no rebound or guarding ,nt, bs present. ext pulses present , no cyanosis , left foot -has mild erosion below nail area , no visible discharge but has mild erythema of big toe. neuro: axo3 , nonfocal. Objective Data Active Medications Aspirin (Aspirin Enteric Coated 81 Mg Tablet.) 81 mg PO DAILY [facility] Last Admin: 01/25/22 07:22 Dose: 81 mg Documented by: MARIANA Atorvastatin Calcium (Atorvastatin Calcium 20 Mg Tablet) 20 mg PO BEDTIME [facility] Last Admin: 01/24/22 19:46 Dose: 20 mg Documented by: DRE Clonazepam (Clonazepam 1 Mg Tablet) 1 mg PO BID [facility] Last Admin: 01/25/22 07:22 Dose: 1 mg Documented by: MARIANA Clotrimazole (Clotrimazole 1 % Cream 15 Gm Tube) 1 appl TOPICAL BID [facility]; Protocol Last Admin: 01/25/22 07:24 Dose: 1 appl Documented by: MARIANA Enoxaparin Sodium (Enoxaparin Sodium 40 Mg/0.4 Ml Syringe) 40 mg SUBCUT Q24H [facility] Last Admin: 01/24/22 15:46 Dose: 40 mg Documented by: JAY Piperacillin Sod/Tazobactam (Sod 3.375 gm/ Sodium Chloride) 50 mls @ 100 mls/hr IV Q6H [facility] Last Infusion: 01/25/22 04:54 Dose: 0 mls/hr Documented by: DRE Lactated Ringer's (Lr) 1,000 mls @ 80 mls/hr IVCONT .[id number] [facility] Last Admin: 01/25/22 06:07 Dose: 80 mls/hr Documented by: DRE Vancomycin HCl 1,500 mg/ (Sodium Chloride) 500 mls @ 333.333 mls/hr IV Q24H [facility] Last Infusion: 01/24/22 15:58 Dose: 0 mls/hr Documented by: JAY Nicotine (Nicotine 21 Mg Patch.Td24) 21 mg TRANSDERMA DAILY [facility] Last Admin: 01/25/22 07:22 Dose: 21 mg Documented by: MARIANA Omeprazole (Omeprazole 20 Mg Capsule.Dr) 20 mg PO DAILY@0630 [facility] Last Admin: 01/25/22 06:07 Dose: 20 mg Documented by: DRE Pharmacy Consult (Consult Rx Perform Med Rec) 1 each MISCELLANE ONCE PRN PRN Reason: Consult order Pharmacy Consult (Consult Rx Vancomycin Dosing) 1 each MISCELLANE DAILY PRN PRN Reason: Consult order Pharmacy Consult (Consult Rx Vancomycin Dosing) 1 each MISCELLANE DAILY PRN PRN Reason: Consult order Propranolol HCl (Propranolol Hcl 10 Mg Tablet) 10 mg PO BID PRN; Protocol PRN Reason: NEEDED Last Admin: 01/24/22 19:49 Dose: 10 mg Documented by: DRE Sodium Chloride (0.9 % Sodium Chloride Flush 3 Ml Syringe) 3 ml IVFLUSH QSHIFT [facility] Last Admin: 01/25/22 07:23 Dose: Not Given Documented by: MARIANA Non-Admin Reason: IV Running Venlafaxine HCl (Venlafaxine Hcl Er 150 Mg Cap.Er.24h) 150 mg PO DAILY [facility] Last Admin: 01/25/22 07:22 Dose: 150 mg Documented by: MARIANA Labs CBC & Chem 7: 01/24/22 05:41 01/24/22 05:41 Labs: Laboratory Results - last 24 hr 01/23/22 01/24/22 01/24/22 13:09 05:41 07:28 Creatinine 1.25 1.24 POC Glucose 97 01/24/22 01/24/22 01/24/22 11:28 16:12 19:27 Creatinine POC Glucose 106 92 101 01/25/22 07:32 Creatinine POC Glucose 141 H Microbiology Microbiology Results: Microbiology 01/23/22 13:09 Blood Culture - Preliminary Blood - Venous No growth after 24 hours. 01/23/22 13:09 Blood Culture - Preliminary Blood - Venous No growth after 24 hours. Assessment and Plan (1) Cellulitis of great toe of left foot: Status: Acute (2) RICARDO (acute kidney injury): Status: Acute Plan 61-year-old male with history of hypertension and dyslipidemia came to the hospital because of left toe infection found to have osteomyelitis on x-ray. 1. Left toe osteomyelitis Leukocytosis WBC 11.5 CRP is 3.56,ESr 54 Lactic acid normal, blood culture neg@24 hrs Patient was started on broad-spectrum IV antibiotics, gentle hydration Added anti fungal topical.surgery eval for ingrown toenail Id evaluation noted. 2. Hypertension :? Seems stable, hold lisinopril, will add amlodipine. 3. Dyslipidemia: Continue atorvastatin. 4. Hyperglycemia:? Patient claims that he has borderline diabetes and managing with diet and weight control.? continue diabetic diet, get hemoglobin A1c 5.7,poc 5. RICARDO:? Seems to be improving, Will add gentle hydration and monitor closely. 6. DVT prophylaxis:? SubQ Lovenox. need for inpatient:toe osteomyelitis,ingrown toenail Quality Stroke Does the patient have a stroke diagnosis?: No VTE Prior VTE?: No VTE Risk Level:: Medical - moderate - high VTE Device Contraindication: N/A - Device Ordered VTE Drug Contraindication: N/A - Med Ordered
--- NOTE | 2022-01-25 10:36 | HE.PHANOTE ---
VANCOMYCIN ADDENDUM: PENDING RANDOM LEVEL AND SERUM CREATININE
[2022-01-25 11:08] LABS: Glucose, Whole Blood 119 mg/dL (60-115)
[2022-01-25 12:00] VITALS: RESP 18
[2022-01-25 12:16] LABS: Estimated Glomerular Filt Rate > 60
[2022-01-25 12:22] LABS: Vancomycin Random 3.5 mcg/mL (15-20)
--- NOTE | 2022-01-25 12:42 | HE.PHANOTE ---
vancomycin addendum: Increased dose to 1 gram q12 hours, crcl has improved slightly, initial level after 2 doses very low 3.5
[2022-01-25] MEDS: vancomycin HCL 1,000 MG in 0.9 % Sodium Chloride 250 ML 270 MG IV (13:10)
[2022-01-25 15:24] VITALS: BP 141/79; PULSE 73; RESP 18; TEMP 36.4; O2SAT 99
[2022-01-25] MEDS: Enoxaparin Sodium 40 MG/0.4 ML SYRINGE SUBCUT (15:43)
[2022-01-25] MEDS: 0.9 % Sodium Chloride Flush 3 ML SYRINGE IVFLUSH (15:43)
[2022-01-25 16:26] LABS: Glucose, Whole Blood 80 mg/dL (60-115)
[2022-01-25 19:20] VITALS: BP 130/88; PULSE 80; RESP 18; TEMP 36.7; O2SAT 98
[2022-01-25] MEDS: Atorvastatin Calcium 20 MG TABLET PO (19:49)
[2022-01-25 20:18] LABS: Glucose, Whole Blood 106 mg/dL (60-115)
[2022-01-25 21:15] LABS: CDiff Gene PCR NEGATIVE (Negative)
[2022-01-25 21:44] LABS: Leukocytes Stool Qualitative NEGATIVE (NEGATIVE)
[2022-01-25 23:44] VITALS: BP 123/77; PULSE 80; RESP 16; TEMP 36.1; O2SAT 96
[2022-01-26] MEDS: vancomycin HCL 1,000 MG in 0.9 % Sodium Chloride 250 ML 270 MG IV ×2 (00:14→13:36)
[2022-01-26 04:00] VITALS: BP 131/62; PULSE 61; RESP 18; TEMP 36.1; O2SAT 100
[2022-01-26] MEDS: Piperacillin Sodium/Tazobactam 3.375 GM in 0.9 % Sodium Chloride 50 ML IV ×2 (04:42→09:27)
[2022-01-26] MEDS: Omeprazole 20 MG CAPSULE.DR PO ×2 (04:43→16:09)
[2022-01-26 07:14] VITALS: BP 137/71; PULSE 94; RESP 19; TEMP 36.6; O2SAT 98
--- NOTE | 2022-01-26 07:29 | HO.PM.IMPN ---
Subjective Subjective Date of Service: 01/26/22 Interval History: left foot osteo, ingrown toenail Review of Systems Still has some left foot pain,similar to yesterday Denies any nausea or fever or chills or cough or phlegm. Physical Exam Vital Signs: Vital Signs: Last Vital Signs Temp 97.8 F 01/26/22 07:14 Pulse 94 01/26/22 07:14 Resp 19 01/26/22 07:14 BP 137/71 01/26/22 07:14 Pulse Ox 98 01/26/22 07:14 BMI result Body Mass Index 30.6 ? Appearance: Alert.? Oriented X3.? not in distress.? Eyes: Pupils equal, round and reactive to light.? Sclera nonicteric.? ENT: Pharynx normal.? Moist mucous membranes. cvs: rrr, [id number] , no murmur res: clear to auscultation ,no rhonchii or wheezing abd: no rebound or guarding ,nt, bs present. ext pulses present , no cyanosis , left foot -has mild erosion below nail area , no visible discharge but has mild erythema of big toe. neuro: axo3 , nonfocal. Objective Data Active Medications Aspirin (Aspirin Enteric Coated 81 Mg Tablet.) 81 mg PO DAILY [facility] Last Admin: 01/25/22 07:22 Dose: 81 mg Documented by: MARIANA Atorvastatin Calcium (Atorvastatin Calcium 20 Mg Tablet) 20 mg PO BEDTIME [facility] Last Admin: 01/25/22 19:49 Dose: 20 mg Documented by: DRE Clonazepam (Clonazepam 1 Mg Tablet) 1 mg PO BID [facility] Last Admin: 01/25/22 19:49 Dose: 1 mg Documented by: DRE Clotrimazole (Clotrimazole 1 % Cream 15 Gm Tube) 1 appl TOPICAL BID [facility]; Protocol Last Admin: 01/25/22 20:21 Dose: Not Given Documented by: DRE Non-Admin Reason: Med Not Available Enoxaparin Sodium (Enoxaparin Sodium 40 Mg/0.4 Ml Syringe) 40 mg SUBCUT Q24H [facility] Last Admin: 01/25/22 15:43 Dose: 40 mg Documented by: BOOKER Piperacillin Sod/Tazobactam (Sod 3.375 gm/ Sodium Chloride) 50 mls @ 100 mls/hr IV Q6H [facility] Last Infusion: 01/26/22 06:26 Dose: 0 mls/hr Documented by: DRE Vancomycin HCl 1,000 mg/ (Sodium Chloride) 270 mls @ 270 mls/hr IV Q12H [facility] Last Infusion: 01/26/22 01:25 Dose: 0 mls/hr Documented by: DRE Nicotine (Nicotine 21 Mg Patch.Td24) 21 mg TRANSDERMA DAILY [facility] Last Admin: 01/25/22 07:22 Dose: 21 mg Documented by: MARIANA Omeprazole (Omeprazole 20 Mg Capsule.Dr) 20 mg PO DAILY@0630 [facility] Last Admin: 01/26/22 04:43 Dose: 20 mg Documented by: DRE Pharmacy Consult (Consult Rx Perform Med Rec) 1 each MISCELLANE ONCE PRN PRN Reason: Consult order Pharmacy Consult (Consult Rx Vancomycin Dosing) 1 each MISCELLANE DAILY PRN PRN Reason: Consult order Propranolol HCl (Propranolol Hcl 10 Mg Tablet) 10 mg PO BID PRN; Protocol PRN Reason: NEEDED Last Admin: 01/24/22 19:49 Dose: 10 mg Documented by: DRE Sodium Chloride (0.9 % Sodium Chloride Flush 3 Ml Syringe) 3 ml IVFLUSH QSHIFT [facility] Last Admin: 01/26/22 00:36 Dose: Not Given Documented by: DRE Non-Admin Reason: IV Running Venlafaxine HCl (Venlafaxine Hcl Er 150 Mg Cap.Er.24h) 150 mg PO DAILY [facility] Last Admin: 01/25/22 07:22 Dose: 150 mg Documented by: MARIANA Labs CBC & Chem 7: 01/24/22 05:41 01/25/22 11:49 Labs: Laboratory Results - last 24 hr 01/25/22 01/25/22 01/25/22 07:32 10:51 11:49 Estim Creat Clear Calc Estimated GFR POC Glucose 141 H 119 H Stool Leukocytes, Qual Random Vancomycin 3.5 L C. difficile Tox B Gene 01/25/22 01/25/22 01/25/22 11:49 16:16 19:50 Estim Creat Clear Calc 79.0 Estimated GFR > 60 POC Glucose 80 106 Stool Leukocytes, Qual Random Vancomycin C. difficile Tox B Gene 01/25/22 01/25/22 19:58 19:58 Estim Creat Clear Calc Estimated GFR POC Glucose Stool Leukocytes, Qual NEGATIVE Random Vancomycin C. difficile Tox B Gene NEGATIVE Microbiology Microbiology Results: Microbiology 01/23/22 13:09 Blood Culture - Preliminary Blood - Venous No growth after 48 hours. 01/23/22 13:09 Blood Culture - Preliminary Blood - Venous No growth after 48 hours. Assessment and Plan (1) Osteomyelitis: Status: Acute Plan 61-year-old male with history of hypertension and dyslipidemia came to the hospital because of left toe infection found to have osteomyelitis on x-ray. 1. Left toe osteomyelitis Leukocytosis WBC 11.5 CRP is 3.56,ESr 54 Lactic acid normal, blood culture neg@48 hrs added picc line orders Patient was started on broad-spectrum IV antibiotics, gentle hydration Added anti fungal topical.surgery eval for ingrown toenail Id evaluation noted. 2. Hypertension :? Seems stable, hold lisinopril, will add amlodipine. 3. Dyslipidemia: Continue atorvastatin. 4. Hyperglycemia:? Patient claims that he has borderline diabetes and managing with diet and weight control.? continue diabetic diet, get hemoglobin A1c 5.7,poc 5. RICARDO:? Seems to be improving, Will add gentle hydration and monitor closely. 6. DVT prophylaxis:? SubQ Lovenox. need for inpatient:toe osteomyelitis,ingrown toenail Quality Stroke Does the patient have a stroke diagnosis?: No VTE Prior VTE?: No VTE Risk Level:: Medical - moderate - high VTE Device Contraindication: N/A - Device Ordered VTE Drug Contraindication: N/A - Med Ordered
[2022-01-26 07:48] LABS: Glucose, Whole Blood 122 mg/dL (60-115)
[2022-01-26] MEDS: Nicotine 21 MG PATCH.TD24 TRANSDERMA (09:26)
[2022-01-26] MEDS: 0.9 % Sodium Chloride Flush 3 ML SYRINGE IVFLUSH ×2 (09:27→20:47)
[2022-01-26] MEDS: Venlafaxine HCl ER 150 MG CAP.ER.24H PO (09:28)
[2022-01-26] MEDS: clonazePAM 1 MG TABLET PO ×2 (09:28→20:47)
[2022-01-26] MEDS: Aspirin Enteric Coated 81 MG TABLET.DR PO (09:28)
[2022-01-26] MEDS: Clotrimazole 1 % Cream 15 GM TUBE 1 APPL TOPICAL ×2 (09:28→20:47)
[2022-01-26] MEDS: Propranolol HCL 10 MG TABLET PO ×2 (09:30→20:47)
[2022-01-26 11:16] VITALS: BP 136/90; PULSE 99; RESP 20; TEMP 36.2; O2SAT 96
[2022-01-26 11:35] LABS: Glucose, Whole Blood 85 mg/dL (60-115)
[2022-01-26 11:50] LABS: Creatinine Clr Calc Pharmacy 69.4; Estimated Glomerular Filt Rate 59
[2022-01-26 11:59] LABS: Vancomycin Trough 10.9 mcg/mL (10.0-20.0)
--- NOTE | 2022-01-26 12:40 | HE.PHANOTE ---
Vancomycin Dosing Addendum Vancomycin trough 10.9. Continue with current regimen with predicted AUC of 491. next trough 01/27/22 @1100
[2022-01-26 16:00] VITALS: BP 155/81; PULSE 80; RESP 18; TEMP 36.6; O2SAT 96
[2022-01-26 16:13] LABS: Glucose, Whole Blood 79 mg/dL (60-115)
[2022-01-26 19:50] VITALS: BP 142/83; PULSE 62; RESP 18; TEMP 36.7; O2SAT 95
[2022-01-26 20:00] LABS: Glucose, Whole Blood 78 mg/dL (60-115)
[2022-01-26] MEDS: Atorvastatin Calcium 20 MG TABLET PO (20:47)
[2022-01-27] VITALS: BP 107/56; PULSE 58; RESP 18; TEMP 36.7; O2SAT 96
[2022-01-27] MEDS: vancomycin HCL 1,000 MG in 0.9 % Sodium Chloride 250 ML 270 MG IV ×2 (00:12→12:39)
[2022-01-27 03:37] VITALS: BP 119/69; PULSE 53; RESP 18; TEMP 36.1; O2SAT 97
[2022-01-27] MEDS: Omeprazole 20 MG CAPSULE.DR PO (06:19)
[2022-01-27 06:23] LABS: Anion Gap 11 (12-20); Blood Urea Nitrogen 14 mg/dL (9-16); Calcium 9.4 mg/dL (8.4-10.2); Carbon Dioxide 29 mmol/L (22-29); Chloride 107 mmol/L (96-108); Creatinine Clr Calc Pharmacy 67.8; Estimated Glomerular Filt Rate 58; Glucose Random 91 mg/dL (60-115); Potassium 4.9 mmol/L (3.3-5.1); Sodium 142 mmol/L (135-145)
[2022-01-27 06:41] LABS: INTERNATIONAL NORM RATIO 1.1 (0.9-1.1); Prothrombin Time 12.7 SEC (9.9-13.0)
[2022-01-27 07:23] VITALS: BP 131/70; PULSE 60; RESP 18; TEMP 36.8; O2SAT 95
[2022-01-27 07:29] LABS: Glucose, Whole Blood 99 mg/dL (60-115)
[2022-01-27] MEDS: Venlafaxine HCl ER 150 MG CAP.ER.24H PO (08:14)
[2022-01-27] MEDS: Propranolol HCL 10 MG TABLET PO (08:14)
[2022-01-27] MEDS: clonazePAM 1 MG TABLET PO (08:14)
[2022-01-27] MEDS: 0.9 % Sodium Chloride Flush 3 ML SYRINGE IVFLUSH (08:15)
[2022-01-27] MEDS: Nicotine 21 MG PATCH.TD24 TRANSDERMA (08:15)
[2022-01-27] MEDS: Aspirin Enteric Coated 81 MG TABLET.DR PO (08:15)
[2022-01-27] MEDS: Clotrimazole 1 % Cream 15 GM TUBE 1 APPL TOPICAL (08:17)
--- NOTE | 2022-01-27 11:11 | PM.DS ---
DS: Providers Provider Date of Service: 01/27/22 Date of admission: 01/23/22 15:34 Primary care physician: EDWIGE Guo Consults: 01/23/22 15:37 Consult to Infectious Diseases Routine Consulting Provider: Nevaeh Doll Reason for consultation: left big toe osteomylitis Has provider been notified: No 01/24/22 10:36 Consult to General Surgery Routine Consulting Provider: [facility] [place] [facility] Reason for consultation: ingrown toe nail Has provider been notified: No DS: Diagnosis Discharge Diagnosis (1) Osteomyelitis: Status: Acute DS: Summary Hospital Course Hospital Course: left foot osteo, ingrown toenail Time Spent with Patient Time attestation: Total time spent providing and/or coordinating discharge services: Discharge coordination time: Greater than 30 minutes Quality: Safe Use of Opioids Does Pt have an Active Cancer Diagnosis on the Problem List?: No Quality: Stroke Does the patient have a stroke diagnosis?: No Physical Exam Vital Signs: Vital Signs: Last Vital Signs Temp 98.2 F 01/27/22 07:23 Pulse 60 01/27/22 07:23 Resp 18 01/27/22 07:23 BP 131/70 01/27/22 07:23 Pulse Ox 95 01/27/22 07:23 BMI result Body Mass Index 30.6 Appearance: Alert.? Oriented X3.? not in distress.? Eyes: Pupils equal, round and reactive to light.? Sclera nonicteric.? ENT: Pharynx normal.? Moist mucous membranes. cvs: rrr, [id number] , no murmur res: clear to auscultation ,no rhonchii or wheezing abd: no rebound or guarding ,nt, bs present. ext pulses present , no cyanosis , left foot -improved ,no dischrage. neuro: axo3 , nonfocal. DS: Data Data Completed and Pending Labs on day of discharge: Laboratory Results - last 24 hr 01/26/22 01/26/22 01/26/22 10:54 10:54 11:16 PT INR Sodium Potassium Chloride Carbon Dioxide Anion Gap BUN Creatinine 1.24 Estim Creat Clear Calc 69.4 Estimated GFR 59 POC Glucose 85 Random Glucose Calcium Vancomycin Trough 10.9 01/26/22 01/26/22 01/27/22 16:08 19:52 05:31 PT INR Sodium 142 Potassium 4.9 Chloride 107 Carbon Dioxide 29 Anion Gap 11 L BUN 14 Creatinine 1.27 Estim Creat Clear Calc 67.8 Estimated GFR 58 POC Glucose 79 78 Random Glucose 91 Calcium 9.4 Vancomycin Trough 01/27/22 01/27/22 05:31 07:22 PT 12.7 INR 1.1 Sodium Potassium Chloride Carbon Dioxide Anion Gap BUN Creatinine Estim Creat Clear Calc Estimated GFR POC Glucose 99 Random Glucose Calcium Vancomycin Trough Preliminary micro results at discharge 01/25/22 19:58 Stool Culture - Preliminary Stool Normal so far. 01/23/22 13:09 Blood Culture - Preliminary Blood - Venous No growth after 48 hours. 01/23/22 13:09 Blood Culture - Preliminary Blood - Venous No growth after 48 hours. Additional Comments Additional comments: XR/XR toe LT min 2V IMPRESSION: Lytic destructive lesion of the terminal tuft of the distal phalanx first toe with associated soft tissue swelling. Findings certainly would be consistent with osteomyelitis. Metastatic disease would be another consideration although less likely. Discharge Plan Discharge Patient Disposition: Home Health Service Discharge Diagnosis: toe osteomyelitis Referrals: Kimberlee Burgos [Outside] - 1 Week Daron Oconnell PA [Primary Care Provider] - Daron Adames [Physician] - 1 week (Call today to make a follow-up appointment within 1-2 weeks) Discharge Medications: New vancomycin 1,000 mg recon soln 1,004 mg IV Q12H Qty: 80 0RF Continued venlafaxine 150 mg capsule,extended release 24hr 1 cap PO DAILY 0RF atorvastatin 20 mg Tablet 20 mg PO DAILY 0RF propranolol 10 mg Tablet 10 mg PO BID PRN (Reason: NEEDED) 0RF omeprazole 20 mg Capsule,Delayed Release(Dr/Ec) 20 mg PO DAILY 0RF lisinopril 5 mg Tablet 5 mg PO DAILY 0RF aspirin 81 mg Tablet,Delayed Release (Dr/Ec) 81 mg PO DAILY 0RF clonazepam 1 mg Tablet 1 mg PO BID Qty: 0 0RF nicotine 21 mg/24 hr Patch 24 Hour 21 mg transdermal DAILY Qty: 30 0RF Discharge Orders: Discharge Order (Routine); Ordered 01/27/22 Ordered By: Lenin Pan Diet: advance to usual diet Activity on Discharge: As tolerated Stand Alone Forms: Patient Portal Discharge page Print Language: Kosovan Other Ambulatory Orders: Basic Metabolic Panel (Routine) Timeframe: 1 Week Facility: [facility] - Location: Laboratory Ordered By: Lenin Pan Complete Blood Count no Diff (Routine) Timeframe: 1 Week Facility: [facility] - Location: Laboratory Ordered By: Lenin Pan Liver Panel (Routine) Timeframe: 1 Week Facility: [facility] - Location: Laboratory Ordered By: Lenin Pan Care Plan Goals: 61-year-old male with history of hypertension and dyslipidemia came to the hospital because of left toe infection found to have osteomyelitis?-started on IV antibiotics seems improving, patient is going home with IV antibiotics IV vanco for 6 weeks. Patient is to follow-up CBC, BMP, LFT, ESR CRP weekly outpatient while on antibiotic. Patient also needs to follow up outpatient with Podiatry out patiently for onychomycosis and for routine nail management. Further management outpatient as per PCP. Patient is going home with services. Health Concerns: As above. Plan of Treatment: As above. Assessment: As above.
--- NOTE | 2022-01-27 11:46 | P.PICC_ITS ---
PICC Line Insertion NPICC Diagnosis: [Osteomyelitis left foot] Indication: [senior living antibiotics needed] Pertinent Labs: [reviewed] Technique: Following informed consent including risks, benefits and alternatives and using sterile technique including cap and mask, sterile gown, glove and drape, the [right] arm was prepped and draped in the usual sterile fashion of full barrier technique with CHG. Following completion of [place] Protocol the skin and soft tissues were anesthetized with 1% Lidocaine plain. Using ultrasound guidance, [right basilic] vein access was obtained by Bridget Sheehan RN, but unable to advance guidewire. She was unable to access right basilic vein on second attempt. Right brachial vein was accessed on first attempt by Ubaldo rhoades RN. Over an 0.018 wire through peel-away sheath, a [4FR Single lumen] PICC line was positioned. Catheter length is [43 CM] internal length, [1 CM] external length, for a total trimmed length of [44 CM]. The procedure was performed in [S272]. Tip verification was performed by Demarco Valdes with Lorenzo 3CG. Tip located in SVC. Ultrasound was used to document vein patency and for needle entry. A formal ultrasound picture and cardiac rhythm strip was recorded. Vascular Resident Care Associate has released the line for use and it is currently dressed with a StatLock, Tegaderm, and CHG disc. Verification has been performed for blood return and line patency. Arm Circumference: [34 CM] Equipment: [[email or web address] Power PICC Solo] Catheter Type: [4FR Single Lumen PICC] Lot #: [[id number]]
[2022-01-27 11:51] VITALS: BP 123/89; PULSE 108; RESP 18; TEMP 36.4; O2SAT 97
[2022-01-27 11:56] LABS: Glucose, Whole Blood 91 mg/dL (60-115)
[2022-01-27 12:33] LABS: Vancomycin Trough 12.7 mcg/mL (10.0-20.0)
--- NOTE | 2022-01-27 13:02 | P.F2F_ITS ---
Service Date Service Date: 01/27/22 Encounter Date of encounter: 01/27/22 Reasons for Services Signs and symptoms assessed: osetomyelitis Reason for longterm: administration of IV, SQ, or IM injection, medication management, medication treatment and teach disease management Homebound: Leaving the home is medically contraindicated at this time without the asist of a device and/or another person due th the listed conditions above and below. Reason homebound: weakness related to hospital stay Homebound supporting statement: Patient has multiple medical comorbidities came with the hospital due to dose to mellitus need IV antibiotics and labs cbc,bmp,liver panel,esr,crp outpatient. Also needs to follow-up with PCP and quality assurance associate outpatient. Certification: Based on the above findings, I certify that this patient is confined to the home and needs intermittent longterm care, physical therapy and/or speech therapy, or continues to need occupational therapy. The patient is under my care, and I have initiated the establishment of the plan of care. The patient will be followed by a physician who will periodically review the plan of care.
--- NOTE | 2022-01-27 13:02 | MHC.CM.PN ---
PATIENT TO DC HOME WITH [facility]. IMM 01/27 IN CHART HE HAS TRANSPORT ARRANGED RN AWARE OF PLAN.
--- NOTE | 2022-01-29 09:24 | HE.PHANOTE ---
Home medications stored in the pharmacy released back to nurse upon discharge on 01/27.
== END 2022-01-27 14:48 | disposition home health service (06) | DRG 638 ==
LOC: HO.ED 12:49 → HO.EDOVER 16:17 → HO.S3 16:38
PROVIDERS: Physician Assistant Medical; Admitting Provider Internal Medicine; Emergency Provider Student in an Organized Health Care Education/Training Program; PCP Physician Assistant Medical; Visit Provider Internal Medicine
DX: E11.69 Type 2 diabetes mellitus with other specified complication (principal); M86.9 Osteomyelitis, unspecified; L03.032 Cellulitis of left toe; E11.65 Type 2 diabetes mellitus with hyperglycemia; I10 Essential (primary) hypertension; E78.5 Hyperlipidemia, unspecified; N17.9 Acute kidney failure, unspecified; D72.829 Elevated white blood cell count, unspecified; Z20.822 Contact with and (suspected) exposure to COVID-19; Z88.5 Allergy status to narcotic agent; Z79.82 Long term (current) use of aspirin; Z79.899 Other long term (current) drug therapy
CPT/HCPCS: 36415; 36573; 73660; 80048; 80053; 80202; 82565; 82947; 83036; 83605; 83735; 85025; 85610; 85652; 86140; 87040; 87045; 87046; 87493; 87635; 89055; 96361; 96365; 96375; 99285; 99291; C1751; J1650; J2543; J3370

== ENCOUNTER 2022-02-17 08:51 | Outpatient (REF) | payer MEDICARE, MEDICAID, SELFPAY ==
[2022-02-17 11:28] LABS: MANUAL DIFF FLAG NO
[2022-02-17 11:33] LABS: Basophils Absolute Auto 0.1 X10*3/uL (0.0-0.2); Basophils Percent Auto 0.5 % (0-2); Eosinophils Absolute Auto 0.4 X10*3/uL (0.0-0.4); Eosinophils Percent Auto 3.7 % (0-4); Hematocrit 46.5 % (42.0-52.0); Hemoglobin 15.6 g/dl (14.0-18.0); Imm Gran Abs Auto 0.03 X10*3/uL (0.00-0.03); Imm Gran Pct Auto 0.3 % (0.0-0.4); Lymphocytes Absolute Auto 1.7 X10*3/uL (1.2-4.9); Lymphocytes Percent Auto 15.1 % (20-40); Mean Corpuscular HGB Conc 33.5 g/dl (31.0-36.0); Mean Corpuscular Hemoglobin 31.2 pg (27.0-33.0); Mean Platelet Volume 11.4 fL (9.4-12.4); Monocytes Absolute Auto 0.7 X10*3/uL (0.1-1.2); Monocytes Percent Auto 5.9 % (2-11); Neutrophils Absolute Auto 8.4 x10*3/uL (2.0-8.3); Neutrophils Percent Auto 74.5 % (45-73); Platelet Count 267 X10*3/uL (160-400); Red Cell Distribution Width 13.2 % (11.0-16.0); White Blood Count 11.3 X10*3/uL (4.8-10.8)
[2022-02-17 11:58] LABS: Alanine Aminotransferase 26 U/L (0-40); Albumin Level 4.2 g/dL (3.5-5.0); Alkaline Phosphatase 33 U/L (39-117); Anion Gap 15 (12-20); Aspartate Amino Transferase 20 U/L (5-37); Bilirubin Direct < 0.2 mg/dL (0.0-0.5); Bilirubin Total 0.4 mg/dL (0.0-1.0); Blood Urea Nitrogen 25 mg/dL (9-16); Calcium 9.9 mg/dL (8.4-10.2); Carbon Dioxide 29 mmol/L (22-29); Chloride 104 mmol/L (96-108); Estimated Glomerular Filt Rate 54; Glucose Random 134 mg/dL (60-115); Potassium 4.6 mmol/L (3.3-5.1); Sodium 143 mmol/L (135-145); Total Protein 7.5 g/dL (6.5-8.0)
[2022-02-17 12:23] LABS: Erythrocyte Sedimentation Rate 3 MM/HR (0-15)
== END 2022-02-17 08:52 | disposition home or self-care (01) ==
LOC: HO.HMGCLNP 08:51
PROVIDERS: Visit Provider Internal Medicine
DX: E11.69 Type 2 diabetes mellitus with other specified complication (principal); M86.172 Other acute osteomyelitis, left ankle and foot
CPT/HCPCS: 80048; 80076; 85025; 85652; 86140

== ENCOUNTER 2022-02-20 13:09 | Outpatient (REF) | payer OTHER, SELFPAY ==
--- NOTE | ~2022-02-20 | IR_ITS ---
EXAMINATION: REPLACEMENT OF RIGHT-SIDED PICC CATHETER CLINICAL INFORMATION: Catheter dislodged. COMPARISON: None TECHNIQUE: Replacement of right upper extremity PICC line with fluoroscopy. FINDINGS: Informed consent was obtained from the patient prior to the procedure. During this process, the procedure and potential alternatives were explained, along with the intended outcome and benefits. The risks of the procedure, as well as the risk of not doing the procedure, were discussed. The patient was given the opportunity to ask questions regarding the procedure and appeared competent to make medical decisions. A signed consent form which documents this discussion was placed in the medical record. Using sterile technique and fluoroscopic guidance a guidewire was placed through the indwelling PICC line and PICC line removed. A new PICC line was then trimmed to 44 cm in length and placed over the guidewire with its tip at the cavoatrial junction. Catheter aspirates and flushes freely. FLUOROSCOPY TIME: 1.2 minutes. DAP: 305 uGy-cm2 IR/IR cvc replace non tunneled IMPRESSION: Replacement of right upper extremity PICC line.
== END 2022-02-20 13:10 | disposition home or self-care (01) ==
LOC: HO.RADIR 13:09
PROVIDERS: PCP Physician Assistant Medical; Visit Provider Internal Medicine
DX: M86.9 Osteomyelitis, unspecified (principal)
CPT/HCPCS: 36580; C1751

== ENCOUNTER 2022-05-30 10:49 | Day surgery (SDC) | payer OTHER, SELFPAY ==
[2022-05-23 14:01] VITALS: BMI 30.2
[2022-05-30 11:09] VITALS: BP 129/78; PULSE 85; RESP 18; TEMP 35.7; O2SAT 97
[2022-05-30] MEDS: Lactated Ringers 1,000 ML 100 ML IVCONT (11:18)
--- NOTE | 2022-05-30 13:28 | P.CONAN_ITS ---
HPI - Anesthesia Eval Consult details Narrative: screening, gerd [facility] Active Problems Active Problems: All Active Problems (Updated 05/23/22 @ 13:57 by Génesis Wilson RN) MDD (major depressive disorder), recurrent episode, moderate (Acute) Alcohol use disorder, moderate, dependence (Acute) Cellulitis of great toe of left foot (Acute) Osteomyelitis of great toe of left foot (Acute) Osteomyelitis (Acute) RICARDO (acute kidney injury) (Acute) Past Medical History Medical History Amputation finger Chronic renal insufficiency Depression Diabetes GERD (gastroesophageal reflux disease) H/O ETOH abuse HTN (hypertension) Hyperlipidemia Osteomyelitis Panic attacks Smoker Family History Family history of problems with anesthesia: No Surgical History Surgical History (Updated 05/23/22 @ 13:53 by Génesis Wilson RN) H/O colonoscopy History of carpal tunnel release of both wrists Hx of foot surgery History of Problems with Anesthesia: No Social History Social History Household Members: None Household Members Other:: Self Housing: Apartment Housing Other:: lives in basement of a home Do you presently have visiting nurse or other home services: No Patient Tobacco Use Status: Former Tobacco user Quit Date: 2 weeks ago Tobacco use type: Cigarette Cigarette Packs Per Day: 0.5 Cigarettes Per Day: 10.0 Years Smoked: 28 Second Hand Smoke Exposure: No Substance Use Type: Marijuana and Prescription Drugs Are you DNR?: No Advance Directives: No Advance Directives Information Provided: Yes Advance Directives Date on File: 11/11/21 Recently lost weight without trying: No Nutrition Risks: No Nutritional Risk service: Yes (Pt was in the [employer].) Current occupational status: disabled Sexual orientation: Straight/Heterosexual Meds Allergies Allergy/AdvReac Type Severity Reaction Status Date / Time codeine [CODEINE] AdvReac Severe Nausea Verified 01/23/22 10:17 Active Medications: Current Medications Albuterol Sulfate (Albuterol Sulfate (0.083%) 2.5 Mg/3 Ml Vial.Neb) 2.5 mg INHALE ONCE PRN PRN Reason: Shortness of Breath/Wheezing Lactated Ringer's (Lr) 1,000 mls @ 100 mls/hr IVCONT .Q10H KIM Last Admin: 05/30/22 11:18 Dose: 100 mls/hr Sodium Biphosphate/Sodium Phosphate (Sodium Phosphate,Hyde-Dibasic 133 Ml Enema) 133 ml PA ONCE PRN PRN Reason: Poor Colonoscopy Prep Results Home Medications Medication Instructions Recorded Confirmed Last Taken Type aspirin 81 mg tablet,delayed 81 mg PO DAILY 11/11/21 05/23/22 01/23/22 History release atorvastatin 20 mg tablet 20 mg PO DAILY 11/11/21 01/23/22 01/23/22 History lisinopril 5 mg tablet 5 mg PO DAILY 11/11/21 05/23/22 01/23/22 History omeprazole 20 mg capsule,delayed 20 mg PO DAILY 11/11/21 05/23/22 01/23/22 History release propranolol 10 mg tablet 10 mg PO BID PRN NEEDED 11/11/21 01/23/22 05/30/22 History venlafaxine 150 mg 1 cap PO DAILY 01/23/22 01/23/22 01/23/22 History capsule,extended release 24 hr fenofibrate 160 mg tablet 160 mg PO DAILY 05/23/22 05/23/22 Unknown History Exam Exam Date and Time: May 30, 2022 1328 Height,Weight and Vital Signs: Height 5 ft 9 in Weight 92.986 kg Last Vital Signs Temp 96.2 F L 05/30/22 11:09 Pulse 85 05/30/22 11:09 Resp 18 05/30/22 11:09 BP 129/78 05/30/22 11:09 Pulse Ox 97 05/30/22 11:09 O2 Del Method 05/30/22 11:09 Airway Mallampati Class: II TM Dist: >3cm Neck ROM: Full Partial: Upper Heart: RRR Lungs: CTA Assessment and Plan Assessment Anesthesia Assessment: Anesthesia Plan Discussed and Chart Reviewed Final Anesthetic Review Family History of Problems with Anesthesia: No History of Problems with Anesthesia: No NPO: Yes ASA Class: III Final Preanesthetic Review: No Changes in Pt Med Stat, Meds/Allgs Chart Reviewed, Consent Obtained/Reviewed and Anes Risks/Benef Reviewed Patient Risk: Intermediate Procedure Risk: Low Anesthetic Plan Anesthetic Plan: MAC: Disposition: Standard PACU
[2022-05-30 14:55] VITALS: BP 167/96; PULSE 69; RESP 15; TEMP 36.8; O2SAT 99
--- NOTE | 2022-05-30 14:56 | P.BOP_ITS ---
Brief Operative Note Date of Service: 05/30/22 Pre-op diagnosis: GERD, Screening Post-op diagnosis: other (GERD, R/O Ewing's, Hiatal hernia, Colon polyp) Procedure: EGD with biopsies, Colonoscopy to the cecum and TI with biopsy and removal of polyp Surgeon: Victor M Singer Anesthesia: MAC Was an Senior Integration Architect used for this Procedure?: No Estimated blood loss (mL): 2.0 Pathology: other (A. EG Junction at 38cm B. Transverse colon polyp) Condition: stable Disposition: PACU
[2022-05-30 15:10] VITALS: BP 153/83; PULSE 66; RESP 18; O2SAT 100
[2022-05-30 15:25] VITALS: BP 179/98; PULSE 66; RESP 18; O2SAT 100
[2022-05-30 15:40] VITALS: BP 164/96; PULSE 67; RESP 18; TEMP 36.9; O2SAT 99
--- NOTE | 2022-05-31 01:34 | OP_ITS ---
SURGEON: Victor M Singer MD INDICATIONS: The patient presents for evaluation of gastroesophageal reflux and colorectal cancer screening. Full consent was obtained from him for this, including risks of bleeding and perforation. PREOPERATIVE DIAGNOSIS: POSTOPERATIVE DIAGNOSIS: Gastroesophageal reflux and colorectal cancer screening, small hiatal hernia, rule out Ewing's esophagus, small colon polyp, diverticulosis, and internal hemorrhoids. PROCEDURE PERFORMED: Esophagogastroduodenoscopy with biopsies, and colonoscopy to the cecum and terminal ileum with biopsy removal of polyp. ESTIMATED BLOOD LOSS: COMPLICATIONS: ANESTHESIA: Monitored anesthesia care. ASSISTANTS: SPECIMENS: PREOPERATIVE DIAGNOSES: Gastroesophageal reflux and colorectal cancer screening. DESCRIPTION OF PROCEDURE: The patient was placed in the left lateral decubitus position. The Olympus video gastroscope was passed in the posterior oropharynx and upper esophagus under direct vision. The scope was passed slowly to the distal esophagus. The gastroesophageal junction appeared at 38 cm. There was some slight irregularity, consistent with reflux and possibly small areas of Ewing's mucosa. There was no ulceration or mass. The scope entered into the stomach and there was a small hiatal hernia. The scope was advanced to the pylorus and the duodenum was cannulated to the descending portion. The duodenum including the bulb appeared normal without mass or ulceration. The scope was withdrawn back to the stomach. The gastric antrum and body appeared normal with good peristalsis. Scope was retroflexed visualizing the proximal stomach carefully, which appeared normal, without any sign of mass or ulceration. The scope was straightened and withdrawn back to the esophagus. Just proximal to the gastroesophageal junction were some small erosions, but without any ulceration or mass. I obtained multiple biopsies of the EG junction at 38 cm. The scope was withdrawn through the remainder of the esophagus, which appeared normal. The scope was withdrawn from the patient. He was turned around for the colonoscopy. The digital rectal exam revealed no abnormalities. The Olympus video pediatric colonoscope was entered into the rectum and advanced easily to the cecum. Once in the cecum, I did identify normal-appearing cecal pouch with appendiceal orifice and a normal-appearing ileocecal valve. The terminal ileum was cannulated and appeared normal. Scope was withdrawn back in the colon. The entire cecum and ileocecal valve appeared normal. The scope was slowly withdrawn assessing all mucosal surfaces carefully. Preparation was excellent. In the proximal transverse colon, was a flat approximately 4 mm polyp, which was biopsied and completely removed with cold biopsy forceps. I did not visualize any other polyps, colitis, nor angiodysplasia. There was a mild amount of sigmoid diverticulosis. In the rectum, scope was retroflexed visualizing internal hemorrhoids, but no other pathology. The rectal mucosa appeared normal. The scope was straightened and withdrawn from the patient. He tolerated the procedures well and was returned to the recovery area in stable condition. IMPRESSION: 1. Hiatal hernia, gastroesophageal reflux, rule out Ewing's esophagus. 2. Small colon polyp. 3. Diverticulosis. 4. Internal hemorrhoids. PLAN: The results of the biopsies will be checked. If there is evidence of Ewing's esophagus without dysplasia I would recommend a repeat upper endoscopy in 3 years. He was advised to continue his daily omeprazole. If the colon polyp is a tubular adenoma, I would recommend a followup colonoscopy in 5 years. If it is only hyperplastic, I would recommend a followup colonoscopy in 10 years. MD ROLLY Regan/JUDI / [id number] MTDD
== END 2022-05-30 16:05 | disposition home or self-care (01) ==
PROVIDERS: PCP Physician Assistant Medical; Visit Provider Internal Medicine
PROC: (CPT 45380; principal; 2022-05-30 12:20)
DX: Z12.11 Encounter for screening for malignant neoplasm of colon (principal); K63.5 Polyp of colon; K57.30 Diverticulosis of large intestine without perforation or abscess without bleeding; K64.8 Other hemorrhoids; K21.00 Gastro-esophageal reflux disease with esophagitis, without bleeding; K44.9 Diaphragmatic hernia without obstruction or gangrene; E78.1 Pure hyperglyceridemia; I12.9 Hypertensive chronic kidney disease with stage 1 through stage 4 chronic kidney disease, or unspecified chronic kidney disease; E11.22 Type 2 diabetes mellitus with diabetic chronic kidney disease; N18.30 Chronic kidney disease, stage 3 unspecified; F41.0 Panic disorder [episodic paroxysmal anxiety]; Z79.82 Long term (current) use of aspirin; Z79.899 Other long term (current) drug therapy; Z87.891 Personal history of nicotine dependence
CPT/HCPCS: 45380; 43239; 88305; J2405; J2550; J3010

== ENCOUNTER 2022-06-23 12:49 | Inpatient (IN) | payer OTHER, SELFPAY ==
--- NOTE | ~2022-06-23 | CT_ITS ---
EXAMINATION: CT ABDOMEN AND PELVIS WITHOUT CONTRAST CLINICAL INFORMATION: Nausea, vomiting, abdominal pain COMPARISON: CT abdomen 11/12/2021 TECHNIQUE: Multidetector volumetric imaging was performed from the superior aspect of the liver through the pubic symphysis. Sagittal and coronal reformatted images were obtained on the technologist's workstation. This CT examination was performed using dose optimization techniques as appropriate, variously including the following: *Automated exposure control *Adjustment of mA and/or kV according to patient size (this includes techniques or standardized protocols for targeted exams where dose is matched to indication/reason for exam; i.e. extremities or head) *Use of iterative reconstruction technique DLP: 614 mGy-cm FINDINGS: LUNG BASES: The visualized lung bases are unremarkable. LIVER, GALLBLADDER, AND BILIARY TREE: The liver is homogeneous in attenuation. No focal hepatic lesion or biliary ductal dilatation is present. The gallbladder is unremarkable with no evidence of radiopaque gallstones, gallbladder wall thickening, or obvious pericholecystic inflammatory changes. PANCREAS: Partial fatty atrophy of the pancreas. No acute inflammatory changes. SPLEEN: Unremarkable. ADRENAL GLANDS: Unremarkable. KIDNEYS AND URETERS: The kidneys are normal in size, shape, and attenuation. No hydronephrosis, hydroureter, or calculi seen. No perinephric stranding. BLADDER: Unremarkable. GASTROINTESTINAL TRACT: Stomach is partially distended. No dilated small bowel loops. Colonic diverticulosis, more prominent in the sigmoid region.. No findings to suggest definite diverticulitis. No colonic wall thickening or pericolonic inflammatory changes.. Appendix is unremarkable.. No free fluid or free air. ABDOMINAL WALL: Small fat-containing bilateral inguinal hernia. LYMPH NODES: No lymphadenopathy seen. VASCULAR: Normal caliber aorta. PELVIC VISCERA: Within normal limits OSSEOUS STRUCTURES: Multilevel degeneration in the spine. CT/CT abdomen pelvis wo IV con IMPRESSION: -Sigmoid diverticulosis without evidence of definite diverticulitis. Nonobstructive bowel gas pattern. -No acute findings otherwise identified in the abdomen or pelvis. Chronic changes as detailed above. Fleischner guidelines were followed.
[2022-06-23 12:53] VITALS: BP 130/96; PULSE 99; O2SAT 97
[2022-06-23 12:59] VITALS: BP 128/90; PULSE 100; RESP 18; TEMP 36.6; O2SAT 100; BMI 30.4
--- NOTE | 2022-06-23 13:04 | ECG_ITS ---
Test Reason : axiety Blood Pressure : / mmHG Vent. Rate : 105 BPM Atrial Rate : 105 BPM P-R Int : 146 ms QRS Dur : 098 ms QT Int : 372 ms P-R-T Axes : 073 030 037 degrees QTc Int : 491 ms Sinus tachycardia Incomplete right bundle branch block Nonspecific ST and T wave abnormality Abnormal ECG When compared with ECG of 12-NOV-2021 13:51, Nonspecific T wave abnormality now evident in Inferior leads Referred By: Generic ED Physician Electronically Signed By:JR PRASAD
[2022-06-23 13:16] LABS: MANUAL DIFF FLAG NO
[2022-06-23 13:19] LABS: Basophils Percent Auto 0.2 % (0-2); Eosinophils Percent Auto 0.2 % (0-4); Hematocrit 49.4 % (42.0-52.0); Hemoglobin 17.6 g/dl (14.0-18.0); Imm Gran Abs Auto 0.09 X10*3/uL (0.00-0.03); Imm Gran Pct Auto 0.6 % (0.0-0.4); Lymphocytes Absolute Auto 2.4 X10*3/uL (1.2-4.9); Lymphocytes Percent Auto 16.6 % (20-40); Mean Corpuscular HGB Conc 35.6 g/dl (31.0-36.0); Mean Corpuscular Hemoglobin 30.2 pg (27.0-33.0); Mean Corpuscular Volume 84.9 fL (80.0-98.0); Monocytes Absolute Auto 1.3 X10*3/uL (0.1-1.2); Neutrophils Absolute Auto 10.4 x10*3/uL (2.0-8.3); Neutrophils Percent Auto 73.4 % (45-73); Platelet Count 370 X10*3/uL (160-400); Red Blood Count 5.82 X10*6/uL (4.60-5.80); Red Cell Distribution Width 12.7 % (11.0-16.0); White Blood Count 14.2 X10*3/uL (4.8-10.8)
[2022-06-23 13:34] LABS: COVID-19 Test Negative (Negative); IDNOW Serial# 16C4AD1C
[2022-06-23 13:42] LABS: Alanine Aminotransferase 26 U/L (0-40); Albumin Level 4.8 g/dL (3.5-5.0); Alkaline Phosphatase 35 U/L (39-117); Aspartate Amino Transferase 33 U/L (5-37); Bilirubin Total 1.2 mg/dL (0.0-1.0); Blood Urea Nitrogen 41 mg/dL (9-16); Creatinine Clr Calc Pharmacy 34.7; Estimated Glomerular Filt Rate 27; Ethanol < 10 mg/dL; Glucose Random 114 mg/dL (60-115); Total Protein 8.1 g/dL (6.5-8.0)
[2022-06-23 14:02] LABS: Anion Gap 25 (12-20); Carbon Dioxide 20 mmol/L (22-29); Chloride 91 mmol/L (96-108); Potassium 3.1 mmol/L (3.3-5.1); Sodium 133 mmol/L (135-145)
[2022-06-23 14:28] LABS: Appearance Urine Turbid; Color Urine Dark Yellow; Glucose Urine UA Negative (Negative); Leukocyte Esterase Urine Small (1+) (Negative); Nitrite Urine Negative (Negative); PH 5.5 (5.0-9.0); Specific Gravity - Urine 1.025 (1.005-1.025); UMIC TRIGGER UACC YES; Urine Blood Negative (Negative); Urine Ketones Trace mg/dL (Negative); Urine Protein 100 (2+) mg/dL (Neg-Trace)
[2022-06-23] MEDS: 0.9 % Sodium Chloride 1,000 ML 999 ML IV ×2 (14:28→15:32)
[2022-06-23 14:31] LABS: Troponin-I High Sensitivity 17.6 ng/L (<3.5-35.0)
[2022-06-23 14:39] LABS: Amphetamine Screen Urine Not Detected (Not Detect); Barbiturates, Urine Not Detected (Not Detect); Benzodiazepines Screen Urine POSITIVE (Not Detect); Cocaine Screen Urine Not Detected (Not Detect); Fentanyl, urine Not Detected (Not Detect); Opiate Screen Urine Not Detected (Not Detect)
[2022-06-23 14:42] LABS: Cannabinoid Screen Urine POSITIVE (Not Detect); Phencyclidine Screen Urine Not Detected (Not Detect)
--- NOTE | 2022-06-23 15:20 | ED.PSYCH ---
HPI - Psych General Chief Complaint: Psychiatric Symptoms Stated Complaint: ANXIETY PER EMS Time Seen by Provider: 06/23/22 13:24 Source: patient Mode of arrival: ambulatory Limitations: no limitations History of Present Illness HPI Narrative: Patient presents emergency department reporting anxiety. He states that he has been having increasing anxiety over the past 5 days. He states he has some ?personal issues? that he does not wish to discussed. States he is taking multiple medications for hands anxiety and has been compliant with them. However, he did make some vague suicidal ideation statements while in triage. Reports feeling this way due to his high levels of anxiety. When I asked patient he denies any suicidal ideations or homicidal ideations. He is requesting admission to the 3rd floor. Additionally, he reports that he has been feeling lethargic, very tired, with nausea and vomiting over the past couple of days. As well as decreased appetite as he is unable to tolerate keeping anything down. Reports of vague diffuse abdominal pain. Denies fevers, chills, headache, dizziness, lightheadedness, chest pain, palpitations, shortness of breath, difficulty breathing, constipation, diarrhea, bloody or dark stools, dysuria, urinary frequency/urgency/hesitancy, numbness or tingling of the extremities. Related Data Home Medications Medication Instructions Recorded Confirmed aspirin 81 mg tablet,delayed 81 mg PO DAILY 11/11/21 05/23/22 release atorvastatin 20 mg tablet 20 mg PO DAILY 11/11/21 01/23/22 lisinopril 5 mg tablet 5 mg PO DAILY 11/11/21 05/23/22 omeprazole 20 mg capsule,delayed 20 mg PO DAILY 11/11/21 05/23/22 release propranolol 10 mg tablet 10 mg PO BID PRN NEEDED 11/11/21 01/23/22 venlafaxine 150 mg 1 cap PO DAILY 01/23/22 01/23/22 capsule,extended release 24 hr fenofibrate 160 mg tablet 160 mg PO DAILY 05/23/22 05/23/22 Previous Rx's Medication Instructions Recorded clonazepam 1 mg tablet 1 mg PO BID #0 tabs 11/22/21 nicotine 21 mg/24 hr daily 21 mg transdermal DAILY #30 ea 11/22/21 transdermal patch vancomycin 1,000 mg intravenous 1,004 mg IV Q12H #80 ea 01/27/22 injection Allergies Allergy/AdvReac Type Severity Reaction Status Date / Time codeine [CODEINE] AdvReac Severe Nausea Verified 01/23/22 10:17 Review of Systems Review of Systems: Constitutional : No Fever, No Chills ENT/Mouth : No Ear Pain, No Nasal Congestion, No sore throat Eyes: No Eye Pain, No Swelling, No Redness Cardiovascular : No Chest Pain, No SOB Respiratory : No Cough, No Sputum, No Dyspnea Gastrointestinal : Positive Nausea, positive Vomiting, No Diarrhea, No Hematochezia, No Melena Genitourinary : No Dysuria, No Urinary Frequency, No Hematuria Musculoskeletal : No Myalgias Skin : No Skin Lesions, No rash Neuro : No Weakness, No Numbness, No Paresthesias, No Dizziness, No Headache Psych : positive Anxiety, positive Depression, positive SI/HI Heme/Lymph: No Lymphadenopathy Endocrine : No Polyuria, No Polydipsia Yes all other systems are reviewed and are negative PMFSH Past Medical History Attestation statement: The following information was validated with the patient. Source: old records reviewed Medical History Amputation finger Chronic renal insufficiency Depression Diabetes GERD (gastroesophageal reflux disease) H/O ETOH abuse HTN (hypertension) Hyperlipidemia Osteomyelitis Panic attacks Smoker Surgical History H/O colonoscopy History of carpal tunnel release of both wrists Hx of foot surgery Social History Social History Household Members: None Household Members Other:: Self Housing: Apartment Housing Other:: lives in basement of a home Do you presently have visiting nurse or other home services: No Patient Tobacco Use Status: Former Tobacco user Quit Date: 2 weeks ago Tobacco use type: Cigarette Cigarette Packs Per Day: 0.5 Cigarettes Per Day: 10.0 Years Smoked: 28 Second Hand Smoke Exposure: No Substance Use Type: Marijuana and Prescription Drugs Advance Directives: No Advance Directives Information Provided: Yes Advance Directives Date on File: 11/11/21 service: Yes (Pt was in the [employer].) Current occupational status: disabled Sexual orientation: Straight/Heterosexual Physical Exam Vital Signs: Vital Signs: Last Vital Signs Temp 97.5 F 06/23/22 15:45 Pulse 74 06/23/22 15:45 Resp 16 06/23/22 15:45 BP 142/65 H 06/23/22 15:45 Pulse Ox 98 06/23/22 15:45 O2 Del Method 06/23/22 15:45 BMI result Body Mass Index 30.4 Appearance: Alert.?Oriented to person, place and time. No acute distress.?Normal affect. Eyes: Pupils equal, round and reactive to light.? ENT: Pharynx normal.?? Neck: Normal inspection.? Neck supple.?? CVS: Heart sounds normal. Normal heart rate and rhythm.? Pulses normal.?? Respiratory: No respiratory distress.? Lung sounds clear to auscultation bilaterally?? Abdomen: Soft with left upper abdominal tenderness. Normoactive bowel sounds. ?? Skin: Skin warm and dry.? Normal skin color.? Extremities: No lower extremity edema.? No calf ttp? Neuro: Moves all extremities spontaneously. Sensation intact bilaterally. CN II-XII intact. No focal neuro deficits. Ambulates with normal steady gait. Course Course Course Narrative: Patient is a 62-year-old male with a past medical history of CKD, depression, anxiety, diabetes, GERD, hypertension, hyperlipidemia, osteomyelitis who presents to the emergency department today for evaluation of anxiety with vague SI statements made in triage, in addition to nausea vomiting and abdominal pain. Labs obtained from nursing protocol; CBC reveals leukocytosis at 14.2. Mild hyponatremia at 133, hypokalemia of 3.1, acute on chronic renal failure with BUN 41 creatinine 2.44. Troponin 17.6 EKG reveals sinus tachycardia with incomplete right bundle-branch block, ST depression noted in V3-V6 which is consistent with prior EKG in November 2021. No acute abnormalities noted at this time. Patient received 2 L IV fluids, at that time will obtain a repeat BMP in addition to delta troponin. CT of the abdomen and pelvis to exclude intra-abdominal pathology given left-sided tenderness, but I suspect symptoms may be secondary to dehydration. Reevaluation(s) Reevaluation #1: Serum labs have improved on repeat. Resolution of hyponatremia and hypokalemia. Renal function has improved, consistent with baseline currently BUN 38/creatinine 1.87. Delta troponin is negative; 18.5. CT of the abdomen and pelvis is pending at this time. Patient signed out to Tori Zamora NP pending CT of the abdomen and referral to [facility] for safe disposition. Time: 17:40 MDM - Psych Medical Records Attestation: I reviewed the patient's medical records. Lab Data Attestation: I reviewed the patient's lab results. Result diagrams: 06/23/22 13:10 06/23/22 16:58 Labs: Lab Results 06/23/22 06/23/22 06/23/22 Range/Units 13:06 13:10 13:10 WBC 14.2 H (4.8-10.8) X10*3/uL RBC 5.82 H (4.60-5.80) X10*6/uL Hgb 17.6 (14.0-18.0) g/dl Hct 49.4 (42.0-52.0) % MCV 84.9 (80.0-98.0) fL MCH 30.2 (27.0-33.0) pg MCHC 35.6 (31.0-36.0) g/dl RDW 12.7 (11.0-16.0) % Plt Count 370 D (160-400) X10*3/uL MPV 10.0 (9.4-12.4) fL Immature Gran % (Auto) 0.6 H (0.0-0.4) % Neut % (Auto) 73.4 H (45-73) % Lymph % (Auto) 16.6 L (20-40) % [place] % (Auto) 9.0 (2-11) % Eos % (Auto) 0.2 (0-4) % Baso % (Auto) 0.2 (0-2) % Lymph # (Auto) 2.4 (1.2-4.9) X10*3/uL [place] # (Auto) 1.3 H (0.1-1.2) X10*3/uL Eos # (Auto) 0.0 (0.0-0.4) X10*3/uL Baso # (Auto) 0.0 (0.0-0.2) X10*3/uL Abs Immat Gran (auto) 0.09 H (0.00-0.03) X10*3/uL Absolute Neuts (auto) 10.4 H (2.0-8.3) x10*3/uL Absolute Nucleated RBC 0.000 (0.0-0.012) X10*3/uL Nucleated RBC % (auto) 0.0 (0.0-0.2) /100WBC Sodium 133 L (135-145) mmol/L Potassium 3.1 L D (3.3-5.1) mmol/L Chloride 91 L (96-108) mmol/L Carbon Dioxide 20 L (22-29) mmol/L Anion Gap 25 H (12-20) BUN 41 H D (9-16) mg/dL Creatinine 2.44 H (0.5-1.4) mg/dL Estim Creat Clear Calc 34.7 Estimated GFR 27 Random Glucose 114 (60-115) mg/dL Calcium 10.0 (8.4-10.2) mg/dL Total Bilirubin 1.2 H (0.0-1.0) mg/dL AST 33 D (5-37) U/L ALT 26 (0-40) U/L Alkaline Phosphatase 35 L (39-117) U/L Troponin I High Sens (<3.5-35.0) ng/L Total Protein 8.1 H (6.5-8.0) g/dL Albumin 4.8 (3.5-5.0) g/dL Urine Color Urine Appearance Urine pH (5.0-9.0) Ur Specific [place] (1.005-1.025) Urine Protein (Neg-Trace) mg/dL Urine Glucose (UA) (Negative) mg/dL Urine Ketones (Negative) mg/dL Urine Blood (Negative) Urine Nitrite (Negative) Ur Leukocyte Esterase (Negative) Urine RBC (0-2) /HPF Urine WBC (0-5) /HPF Ur Squamous Epith Cells (0-2) /HPF Urine Bacteria (None Seen) Hyaline Casts (0-2) /LPF Urine Opiates Screen (Not Detect) Urine Fentanyl Screen (Not Detect) Ur Barbiturates Screen (Not Detect) Ur Phencyclidine Scrn (Not Detect) Ur Amphetamines Screen (Not Detect) U Benzodiazepines Scrn (Not Detect) Urine Cocaine Screen (Not Detect) U Marijuana (THC) Screen (Not Detect) Ethyl Alcohol < 10 mg/dL COVID-19 (RG) Negative (Negative) COVID-19 Clin Com See Note 06/23/22 06/23/22 06/23/22 Range/Units 13:10 14:16 14:16 WBC (4.8-10.8) X10*3/uL RBC (4.60-5.80) X10*6/uL Hgb (14.0-18.0) g/dl Hct (42.0-52.0) % MCV (80.0-98.0) fL MCH (27.0-33.0) pg MCHC (31.0-36.0) g/dl RDW (11.0-16.0) % Plt Count (160-400) X10*3/uL MPV (9.4-12.4) fL Immature Gran % (Auto) (0.0-0.4) % Neut % (Auto) (45-73) % Lymph % (Auto) (20-40) % [place] % (Auto) (2-11) % Eos % (Auto) (0-4) % Baso % (Auto) (0-2) % Lymph # (Auto) (1.2-4.9) X10*3/uL [place] # (Auto) (0.1-1.2) X10*3/uL Eos # (Auto) (0.0-0.4) X10*3/uL Baso # (Auto) (0.0-0.2) X10*3/uL Abs Immat Gran (auto) (0.00-0.03) X10*3/uL Absolute Neuts (auto) (2.0-8.3) x10*3/uL Absolute Nucleated RBC (0.0-0.012) X10*3/uL Nucleated RBC % (auto) (0.0-0.2) /100WBC Sodium (135-145) mmol/L Potassium (3.3-5.1) mmol/L Chloride (96-108) mmol/L Carbon Dioxide (22-29) mmol/L Anion Gap (12-20) BUN (9-16) mg/dL Creatinine (0.5-1.4) mg/dL Estim Creat Clear Calc Estimated GFR Random Glucose (60-115) mg/dL Calcium (8.4-10.2) mg/dL Total Bilirubin (0.0-1.0) mg/dL AST (5-37) U/L ALT (0-40) U/L Alkaline Phosphatase (39-117) U/L Troponin I High Sens 17.6 D (<3.5-35.0) ng/L Total Protein (6.5-8.0) g/dL Albumin (3.5-5.0) g/dL Urine Color Dark Yellow Urine Appearance Turbid Urine pH 5.5 (5.0-9.0) Ur Specific [place] 1.025 (1.005-1.025) Urine Protein 100 (2+) H (Neg-Trace) mg/dL Urine Glucose (UA) Negative (Negative) mg/dL Urine Ketones Trace (Negative) mg/dL Urine Blood Negative (Negative) Urine Nitrite Negative (Negative) Ur Leukocyte Esterase Small (1+) H (Negative) Urine RBC 0-2 (0-2) /HPF Urine WBC 0-5 (0-5) /HPF Ur Squamous Epith Cells 3-5 (0-2) /HPF Urine Bacteria None Seen (None Seen) Hyaline Casts >20 (0-2) /LPF Urine Opiates Screen Not Detected (Not Detect) Urine Fentanyl Screen Not Detected (Not Detect) Ur Barbiturates Screen Not Detected (Not Detect) Ur Phencyclidine Scrn Not Detected (Not Detect) Ur Amphetamines Screen Not Detected (Not Detect) U Benzodiazepines Scrn POSITIVE H (Not Detect) Urine Cocaine Screen Not Detected (Not Detect) U Marijuana (THC) Screen POSITIVE H (Not Detect) Ethyl Alcohol mg/dL COVID-19 (RG) (Negative) COVID-19 Clin Com 06/23/22 06/23/22 Range/Units 16:58 16:58 WBC (4.8-10.8) X10*3/uL RBC (4.60-5.80) X10*6/uL Hgb (14.0-18.0) g/dl Hct (42.0-52.0) % MCV (80.0-98.0) fL MCH (27.0-33.0) pg MCHC (31.0-36.0) g/dl RDW (11.0-16.0) % Plt Count (160-400) X10*3/uL MPV (9.4-12.4) fL Immature Gran % (Auto) (0.0-0.4) % Neut % (Auto) (45-73) % Lymph % (Auto) (20-40) % [place] % (Auto) (2-11) % Eos % (Auto) (0-4) % Baso % (Auto) (0-2) % Lymph # (Auto) (1.2-4.9) X10*3/uL [place] # (Auto) (0.1-1.2) X10*3/uL Eos # (Auto) (0.0-0.4) X10*3/uL Baso # (Auto) (0.0-0.2) X10*3/uL Abs Immat Gran (auto) (0.00-0.03) X10*3/uL Absolute Neuts (auto) (2.0-8.3) x10*3/uL Absolute Nucleated RBC (0.0-0.012) X10*3/uL Nucleated RBC % (auto) (0.0-0.2) /100WBC Sodium 136 (135-145) mmol/L Potassium 3.7 (3.3-5.1) mmol/L Chloride 97 (96-108) mmol/L Carbon Dioxide 22 (22-29) mmol/L Anion Gap 21 H (12-20) BUN 38 H (9-16) mg/dL Creatinine 1.87 H (0.5-1.4) mg/dL Estim Creat Clear Calc 45.3 Estimated GFR 37 Random Glucose 88 (60-115) mg/dL Calcium 8.3 L D (8.4-10.2) mg/dL Total Bilirubin (0.0-1.0) mg/dL AST (5-37) U/L ALT (0-40) U/L Alkaline Phosphatase (39-117) U/L Troponin I High Sens 18.5 (<3.5-35.0) ng/L Total Protein (6.5-8.0) g/dL Albumin (3.5-5.0) g/dL Urine Color Urine Appearance Urine pH (5.0-9.0) Ur Specific [place] (1.005-1.025) Urine Protein (Neg-Trace) mg/dL Urine Glucose (UA) (Negative) mg/dL Urine Ketones (Negative) mg/dL Urine Blood (Negative) Urine Nitrite (Negative) Ur Leukocyte Esterase (Negative) Urine RBC (0-2) /HPF Urine WBC (0-5) /HPF Ur Squamous Epith Cells (0-2) /HPF Urine Bacteria (None Seen) Hyaline Casts (0-2) /LPF Urine Opiates Screen (Not Detect) Urine Fentanyl Screen (Not Detect) Ur Barbiturates Screen (Not Detect) Ur Phencyclidine Scrn (Not Detect) Ur Amphetamines Screen (Not Detect) U Benzodiazepines Scrn (Not Detect) Urine Cocaine Screen (Not Detect) U Marijuana (THC) Screen (Not Detect) Ethyl Alcohol mg/dL COVID-19 (RG) (Negative) COVID-19 Clin Com ECG Data Attestation: I personally reviewed and interpreted this ECG as follows: ECG interpretation date: 06/23/22 Prior ECG tracings: available for review Interpretation: Rate: 105 Rhythm:? Sinus tachycardia, incomplete right bundle-branch block Normal P waves.? Normal NARGIS.?? Normal QRS complex.?? ST T wave :??No ST elevation. ST depressions in V3-V6 consistent with prior EKG qTC: 491 prior studies:? November 2021 The study has been interpreted contemporaneously by me. Discharge Plan Discharge Clinical Impression: Acute dehydration, Acute kidney injury, Anxiety Patient Disposition: Still a Patient Prescriptions: No Action venlafaxine 150 mg capsule,extended release 24hr 1 cap PO DAILY vancomycin 1,000 mg recon soln 1,004 mg IV Q12H Qty: 80 0RF fenofibrate 160 mg Tablet 160 mg PO DAILY atorvastatin 20 mg Tablet 20 mg PO DAILY propranolol 10 mg Tablet 10 mg PO BID PRN (Reason: NEEDED) omeprazole 20 mg Capsule,Delayed Release(Dr/Ec) 20 mg PO DAILY lisinopril 5 mg Tablet 5 mg PO DAILY aspirin 81 mg Tablet,Delayed Release (Dr/Ec) 81 mg PO DAILY clonazepam 1 mg Tablet 1 mg PO BID Qty: 0 0RF nicotine 21 mg/24 hr Patch 24 Hour 21 mg transdermal DAILY Qty: 30 0RF
[2022-06-23 15:45] VITALS: BP 142/65; PULSE 74; RESP 16; TEMP 36.4; O2SAT 98
[2022-06-23 15:55] LABS: Bacteria Urine None Seen (None Seen); Hyaline Casts Urine >20 /LPF (0-2); RBC Urine 0-2 /HPF (0-2); UACC Culture Trigger YES; WBC Urine 0-5 /HPF (0-5)
[2022-06-23 17:25] LABS: Anion Gap 21 (12-20); Blood Urea Nitrogen 38 mg/dL (9-16); Calcium 8.3 mg/dL (8.4-10.2); Carbon Dioxide 22 mmol/L (22-29); Chloride 97 mmol/L (96-108); Creatinine Clr Calc Pharmacy 45.3; Estimated Glomerular Filt Rate 37; Glucose Random 88 mg/dL (60-115); Potassium 3.7 mmol/L (3.3-5.1); Sodium 136 mmol/L (135-145)
[2022-06-23 17:29] LABS: Troponin-I High Sensitivity 18.5 ng/L (<3.5-35.0)
[2022-06-23] MEDS: ondansetron HCL 4 MG/2 ML VIAL IVPUSH (17:51)
[2022-06-23] MEDS: 0.9 % Sodium Chloride 1,000 ML 999 ML IVCONT ×2 (18:23→19:28)
[2022-06-23 18:27] LABS: Alanine Aminotransferase 22 U/L (0-40); Albumin Level 3.9 g/dL (3.5-5.0); Alkaline Phosphatase 29 U/L (39-117); Aspartate Amino Transferase 29 U/L (5-37); Bilirubin Direct 0.3 mg/dL (0.0-0.5); Bilirubin Total 0.9 mg/dL (0.0-1.0); Lipase 46 U/L (8-78); Total Protein 6.7 g/dL (6.5-8.0)
[2022-06-23 18:54] VITALS: BP 192/84; PULSE 68; RESP 18; TEMP 36.8; O2SAT 96
[2022-06-23 19:30] VITALS: BP 178/80; PULSE 81; RESP 18; TEMP 36.7; O2SAT 98
--- NOTE | 2022-06-23 19:31 | PC.NURSE ---
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
--- NOTE | 2022-06-23 20:06 | MHC.CARE ---
Addendum entered by Letty Hernandez, [facility] 06/23/22 20:07: Request will be cancelled due to planned medical admission, per [facility] Original Note: [facility] smart sheet completed
--- NOTE | 2022-06-23 20:45 | P.HPHOSP_ITS ---
History of Present Illness Date of Service: 06/23/22 Chief Complaint: N/v this is a 62-year-old male with past medical history of diabetes, CKD, depression, HTN, HLD, anxiety who presents to the hospital with complaints of intractable nausea vomiting for the past 5 days. Patient reports that he has discomfort in the stomach, as well as pain and burning sensation that starts at the systemic and moves up to his throat, he feels significant nausea, then he self induces vomiting which makes him feel slightly better. he reports that this has been going on for over a year. he reports that the only thing that has seemed to work for him is hot showers, reports that he has been sitting in the shower for 4 days trying to relieve his symptoms. He denies any diarrhea or constipation, denies any urinary frequency, dysuria or urgency. He reports no fever or chills. No shortness of breath or chest pain. He reports that he is unable to keep anything down including even water due to the severe nausea and vomiting. Patient has no headache or change in vision, no numbness or tingling, no lower extremity edema. On arrival to the ED patient hemodynamically stable with no significant abnormal vitals Labs are significant for WBC count of 14.2, hemoglobin of 17.6, hematocrit 49.4, sodium of 133, potassium of 3.1, BUN of 41, creatinine of 2.44 with a baseline of around 1.2-1.3, lipase of 46, urine positive for small amount of leukocyte Estrace and 0-5 WBC with squamous hepatocellular cells, urine is positive for benzodiazepines as well as marijuana. COVID-[address] Meyer to the ED patient apparently endorsed suicidal ideation, when I asked him more about it he said that because of the severe pain and the intractable nausea and vomiting . he currently has no suicidal ideation, no plan to harm himself or others. Patient started on IV fluids, but continues to have elevated creatinine therefore will be admitted for further management Review of Systems Review of Systems: Yes all other systems are reviewed and are negative [facility] Medical History Amputation finger Chronic renal insufficiency Depression Diabetes GERD (gastroesophageal reflux disease) H/O ETOH abuse HTN (hypertension) Hyperlipidemia Osteomyelitis Panic attacks Smoker Family History Other No family history of coronary artery disease Surgical History H/O colonoscopy History of carpal tunnel release of both wrists Hx of foot surgery Social History Household Members: None Household Members Other:: Self Housing: Apartment Housing Other:: lives in basement of a home Do you presently have visiting nurse or other home services: No Alcohol intake: former Patient Tobacco Use Status: Former Tobacco user Quit Date: 2 weeks ago Tobacco use type: Cigarette Cigarette Packs Per Day: 0.5 Cigarettes Per Day: 10.0 Years Smoked: 28 Smoked in Last 30 Days: No Second Hand Smoke Exposure: No Use of substances other than those prescribed or required for medical reasons: No Substance Use Type: Marijuana and Prescription Drugs Advance Directives: No Advance Directives Information Provided: Yes Advance Directives Date on File: 11/11/21 service: Yes (Pt was in the [employer].) Current occupational status: disabled Sexual orientation: Straight/Heterosexual Meds Allergies Allergy/AdvReac Type Severity Reaction Status Date / Time codeine [CODEINE] AdvReac Severe Nausea Verified 01/23/22 10:17 Home Medications Medication Instructions Recorded Confirmed Last Taken Type aspirin 81 mg tablet,delayed 81 mg PO DAILY 11/11/21 05/23/22 01/23/22 History release atorvastatin 20 mg tablet 20 mg PO DAILY 11/11/21 01/23/22 01/23/22 History lisinopril 5 mg tablet 5 mg PO DAILY 11/11/21 05/23/22 01/23/22 History omeprazole 20 mg capsule,delayed 20 mg PO DAILY 11/11/21 05/23/22 01/23/22 History release propranolol 10 mg tablet 10 mg PO BID PRN NEEDED 11/11/21 01/23/22 05/30/22 History venlafaxine 150 mg 1 cap PO DAILY 01/23/22 01/23/22 01/23/22 History capsule,extended release 24 hr fenofibrate 160 mg tablet 160 mg PO DAILY 05/23/22 05/23/22 Unknown History Physical Exam Vital Signs and Narrative: Vital Signs: Last Vital Signs Temp 98.1 F 06/23/22 19:30 Pulse 81 06/23/22 19:30 Resp 18 06/23/22 19:30 BP 178/80 H 06/23/22 19:30 Pulse Ox 98 06/23/22 19:30 O2 Del Method 06/23/22 19:30 BMI result Body Mass Index 30.4 Const: General: cooperative and no acute distress Orientation/consciousness: patient oriented x3 Eyes: General: appearance normal, both eyes and all related structures Resp: Effort & Inspection: normal respiratory effort Auscultation: clear to auscultation bilaterally Cardio: Rate: regular rate Rhythm: regular rhythm GI: Other: Mild tenderness at the epigastric region, no rebound or guarding Palpation (GI): Soft to palpation Auscultation: normal bowel sounds Skin: General skin exam: no rashes or lesions noted Neuro: General: patient oriented x3 Cognition (Neuro): normal cognition Extrem: General: Yes normal to inspection and Yes no pedal edema Results Labs CBC and Chem 7: 06/23/22 13:10 06/23/22 16:58 Labs: Laboratory Results - last 24 hr 06/23/22 06/23/22 06/23/22 13:06 13:10 13:10 MCV 84.9 MCH 30.2 MCHC 35.6 RDW 12.7 Plt Count 370 D MPV 10.0 Immature Gran % (Auto) 0.6 H Neut % (Auto) 73.4 H Lymph % (Auto) 16.6 L [place] % (Auto) 9.0 Eos % (Auto) 0.2 Baso % (Auto) 0.2 Lymph # (Auto) 2.4 [place] # (Auto) 1.3 H Eos # (Auto) 0.0 Baso # (Auto) 0.0 Abs Immat Gran (auto) 0.09 H Absolute Neuts (auto) 10.4 H Absolute Nucleated RBC 0.000 Nucleated RBC % (auto) 0.0 Anion Gap 25 H Estim Creat Clear Calc 34.7 Estimated GFR 27 Random Glucose 114 Calcium 10.0 Total Bilirubin 1.2 H Direct Bilirubin AST 33 D ALT 26 Alkaline Phosphatase 35 L Total Protein 8.1 H Albumin 4.8 Lipase Urine Color Urine Appearance Urine pH Ur Specific [place] Urine Protein Urine Glucose (UA) Urine Ketones Urine Blood Urine Nitrite Ur Leukocyte Esterase Urine RBC Urine WBC Ur Squamous Epith Cells Urine Bacteria Hyaline Casts Urine Opiates Screen Urine Fentanyl Screen Ur Barbiturates Screen Ur Phencyclidine Scrn Ur Amphetamines Screen U Benzodiazepines Scrn Urine Cocaine Screen U Marijuana (THC) Screen Ethyl Alcohol < 10 COVID-19 (RG) Negative COVID-19 Clin Com See Note 06/23/22 06/23/22 06/23/22 14:16 14:16 16:58 MCV MCH MCHC RDW Plt Count MPV Immature Gran % (Auto) Neut % (Auto) Lymph % (Auto) [place] % (Auto) Eos % (Auto) Baso % (Auto) Lymph # (Auto) [place] # (Auto) Eos # (Auto) Baso # (Auto) Abs Immat Gran (auto) Absolute Neuts (auto) Absolute Nucleated RBC Nucleated RBC % (auto) Anion Gap 21 H Estim Creat Clear Calc 45.3 Estimated GFR 37 Random Glucose 88 Calcium 8.3 L D Total Bilirubin 0.9 Direct Bilirubin 0.3 AST 29 ALT 22 Alkaline Phosphatase 29 L Total Protein 6.7 Albumin 3.9 Lipase 46 Urine Color Dark Yellow Urine Appearance Turbid Urine pH 5.5 Ur Specific [place] 1.025 Urine Protein 100 (2+) H Urine Glucose (UA) Negative Urine Ketones Trace Urine Blood Negative Urine Nitrite Negative Ur Leukocyte Esterase Small (1+) H Urine RBC 0-2 Urine WBC 0-5 Ur Squamous Epith Cells 3-5 Urine Bacteria None Seen Hyaline Casts >20 Urine Opiates Screen Not Detected Urine Fentanyl Screen Not Detected Ur Barbiturates Screen Not Detected Ur Phencyclidine Scrn Not Detected Ur Amphetamines Screen Not Detected U Benzodiazepines Scrn POSITIVE H Urine Cocaine Screen Not Detected U Marijuana (THC) Screen POSITIVE H Ethyl Alcohol COVID-19 (RG) COVID-19 Clin Com Imaging Radiologist's Impressions: Impressions Abdomen/Pelvis CT 06/23/22 18:21 IMPRESSION: -Sigmoid diverticulosis without evidence of definite diverticulitis. Nonobstructive bowel gas pattern. -No acute findings otherwise identified in the abdomen or pelvis. Chronic changes as detailed above. Fleischner guidelines were followed. Assessment and Plan (1) Acute kidney injury: Status: Acute (2) Acute dehydration: Status: Acute (3) Intractable nausea and vomiting: Status: Acute Plan 62-year-old male with past medical history of HTN, dm, HLD, anxiety and depression, who presents to the hospital with complaints of intractable nausea and vomiting found to have RICARDO # RICARDO on CKD - secondary to dehydration/vomiting - although urine is positive, there is no evidence of UTI, patient asymptomatic, - improving with IV fluids - will continue IV hydration - follow BMP # acute dehydration - secondary to nausea vomiting - continue IV fluids # intractable nausea vomiting - likely secondary to cyclic vomiting syndrome in the setting of marijuana use as well as improvement with hot showers which is characteristic - he does smoke marijuana daily and has continued despite the nausea vomiting - I had an extensive discussion with himabout abstinence from marijuana, - will treat with antiemetics and IV hydration - of note, I reviewed his recent colonoscopy and endoscopy done on 05/31/2022 which showed hiatal hernia, gastroesophageal reflux- will continue antiacids b.i.d. # diabetes - hold oral anti- hyperglycemics - low-dose sliding scale insulin - diabetic diet # HTN - elevated - will resume his home medications DVT prophylaxis: Heparin subQ given the acute kidney failure patient will require a minimum 2 night hospital stay for IV fluids and further monitoring Quality Stroke Does the patient have a stroke diagnosis?: No VTE Prior VTE?: No VTE Risk Level:: Medical - moderate - high VTE Device Contraindication: Treatment Not Indicated VTE Drug Contraindication: N/A - Med Ordered
[2022-06-23 20:48] LABS: Lactic Acid 0.9 mmol/L (0.5-2.0)
[2022-06-23 21:09] LABS: Anion Gap 15 (12-20); Blood Urea Nitrogen 34 mg/dL (9-16); Calcium 7.5 mg/dL (8.4-10.2); Carbon Dioxide 22 mmol/L (22-29); Chloride 101 mmol/L (96-108); Creatinine Clr Calc Pharmacy 58.5; Estimated Glomerular Filt Rate 49; Glucose Random 95 mg/dL (60-115); Potassium 3.1 mmol/L (3.3-5.1); Sodium 135 mmol/L (135-145)
[2022-06-23] MEDS: Heparin Sodium,Porcine 5,000 UNIT/ML VIAL 5000 UNIT SUBCUT (22:03)
[2022-06-23] MEDS: Omeprazole 40 MG CAPSULE.DR PO (22:03)
[2022-06-23] MEDS: Potassium Chloride/H20 10 MEQ/100 ML PIGGYBACK 100 MEQ IV ×2 (22:12→23:47)
[2022-06-23] MEDS: Lactated Ringers 1,000 ML 100 ML IVCONT (22:12)
--- NOTE | 2022-06-23 22:13 | PHA.MEDREC ---
Pharmacy Consult ? Medication Reconciliation Pharmacy has completed the medication reconciliation.
--- NOTE | 2022-06-23 22:20 | PC.NURSE ---
pt moved to room 2, ivf started per order, laboratory monitor applied-nsr, will continue to monitor
[2022-06-23 23:19] VITALS: BP 148/75; PULSE 81; RESP 17; TEMP 36.7; O2SAT 92
[2022-06-24] MEDS: Potassium Chloride/H20 10 MEQ/100 ML PIGGYBACK 100 MEQ IV ×2 (00:43→02:27)
--- NOTE | 2022-06-24 01:25 | PC.NURSE ---
Pt. resting quietly in bed. LR and potassium infusing..
--- NOTE | 2022-06-24 03:44 | PC.NURSE ---
Pt. sleeping in bed. monitor and storage bin tender was alarming. Replaced upper right lead. Potassium infusion completed. LR running at mainenance level.
[2022-06-24 04:33] LABS: MANUAL DIFF FLAG NO
[2022-06-24 04:34] LABS: Basophils Percent Auto 0.3 % (0-2); Eosinophils Absolute Auto 0.1 X10*3/uL (0.0-0.4); Eosinophils Percent Auto 1.3 % (0-4); Hematocrit 39.5 % (42.0-52.0); Hemoglobin 13.7 g/dl (14.0-18.0); Imm Gran Abs Auto 0.05 X10*3/uL (0.00-0.03); Imm Gran Pct Auto 0.5 % (0.0-0.4); Lymphocytes Absolute Auto 2.1 X10*3/uL (1.2-4.9); Lymphocytes Percent Auto 18.6 % (20-40); Mean Corpuscular HGB Conc 34.7 g/dl (31.0-36.0); Mean Corpuscular Volume 86.6 fL (80.0-98.0); Mean Platelet Volume 10.1 fL (9.4-12.4); Monocytes Absolute Auto 1.1 X10*3/uL (0.1-1.2); Monocytes Percent Auto 9.7 % (2-11); Neutrophils Absolute Auto 7.7 x10*3/uL (2.0-8.3); Neutrophils Percent Auto 69.6 % (45-73); Platelet Count 258 X10*3/uL (160-400); Red Blood Count 4.56 X10*6/uL (4.60-5.80); Red Cell Distribution Width 12.7 % (11.0-16.0); White Blood Count 11.1 X10*3/uL (4.8-10.8)
[2022-06-24 04:53] LABS: Anion Gap 14 (12-20); Blood Urea Nitrogen 26 mg/dL (9-16); Calcium 7.9 mg/dL (8.4-10.2); Carbon Dioxide 25 mmol/L (22-29); Chloride 103 mmol/L (96-108); Creatinine Clr Calc Pharmacy 65.7; Estimated Glomerular Filt Rate 57; Glucose Random 93 mg/dL (60-115); Potassium 3.7 mmol/L (3.3-5.1); Sodium 138 mmol/L (135-145)
--- NOTE | 2022-06-24 05:52 | PC.NURSE ---
Pt IV access is somewhat positional. IV fluids have been running throughout the night but have stopped a couple times for downstream occlusion. Pt. repositioned and IVF continued to run. Pt. now awake and watching tv in room.
[2022-06-24 06:14] VITALS: BP 132/78; PULSE 64; RESP 16; TEMP 36.6; O2SAT 97
[2022-06-24] MEDS: Omeprazole 40 MG CAPSULE.DR PO ×2 (06:37→18:57)
--- NOTE | 2022-06-24 06:43 | PC.NURSE ---
Pt. awake in bed. Gave morning omeprazole.
[2022-06-24 07:09] VITALS: BP 100/63; PULSE 66; RESP 16; O2SAT 98
[2022-06-24 07:16] LABS: Glucose, Whole Blood 79 mg/dL (60-115)
--- NOTE | 2022-06-24 07:59 | PC.NURSE ---
Patient skin warm and pink, He is awake resting comfortably. A little anxious and worried about things coming up. Denies si-hi. Lungs sounds clear. vital signs wnl. patient denies pain, no nausea.
[2022-06-24] MEDS: Nicotine 21 MG PATCH.TD24 TRANSDERMA ×2 (10:01→11:17)
[2022-06-24] MEDS: Heparin Sodium,Porcine 5,000 UNIT/ML VIAL 5000 UNIT SUBCUT ×2 (10:01→22:47)
--- NOTE | 2022-06-24 10:52 | MHC.CM.PN ---
Attempted to meet with patient in regards to discharge planning. Patient currently sleeping. No family present. Will attempt to meet again. Continue to monitor for d/c needs.
[2022-06-24] MEDS: Aspirin Enteric Coated 81 MG TABLET.DR PO (11:13)
[2022-06-24] MEDS: clonazePAM 1 MG TABLET PO ×2 (11:14→22:48)
[2022-06-24] MEDS: Atorvastatin Calcium 20 MG TABLET PO (11:14)
[2022-06-24] MEDS: Venlafaxine HCl ER 150 MG CAP.ER.24H PO (11:14)
[2022-06-24] MEDS: Omeprazole 20 MG CAPSULE.DR PO (11:17)
[2022-06-24] MEDS: Fenofibrate 160 MG TABLET PO (12:34)
[2022-06-24 13:45] LABS: Glucose, Whole Blood 90 mg/dL (60-115)
[2022-06-24] MEDS: Lactated Ringers 1,000 ML 100 ML IVCONT (14:06)
[2022-06-24] MEDS: Lidocaine 4 % Patch ADH..PATCH 1 PATCH TRANSDERMA (14:06)
--- NOTE | 2022-06-24 18:33 | HO.PM.IMPN ---
Subjective Subjective Date of Service: 06/24/22 Interval History: Persistent nausea vomiting. Review of Systems Patient still feels significantly nauseated, has some epigastric discomfort otherwise vomiting seems to be improving Still not much p.o. intake Physical Exam Vital Signs: Vital Signs: Last Vital Signs Temp 97.9 F 06/24/22 06:14 Pulse 66 06/24/22 07:09 Resp 16 06/24/22 07:09 BP 100/63 06/24/22 07:09 Pulse Ox 98 06/24/22 07:09 O2 Del Method 06/24/22 07:09 BMI result Body Mass Index 30.4 Appearance: Alert.? Oriented X3.? not in distress.? cvs: rrr, [id number] , no murmur res: clear to auscultation ,no rhonchii or wheezing abd: no rebound or guarding ,epigastric discomfort, bs present. ext pulses present , no cyanosis. neuro: axo3 , nonfocal. Objective Data Active Medications Acetaminophen (Acetaminophen 325 Mg Tablet) 650 mg PO Q6H PRN PRN Reason: Pain, Mild (Pain Scale 1-3) Aspirin (Aspirin Enteric Coated 81 Mg Tablet.) 81 mg PO DAILY [facility] Last Admin: 06/24/22 11:13 Dose: 81 mg Documented By: MARLENA Atorvastatin Calcium (Atorvastatin Calcium 20 Mg Tablet) 20 mg PO DAILY [facility] Last Admin: 06/24/22 11:14 Dose: 20 mg Documented By: MARLENA Capsaicin (Capsaicin 0.025% Cream 60 Gm Tube) 1 appl TOPICAL QID PRN; Protocol PRN Reason: in abd pain area Clonazepam (Clonazepam 1 Mg Tablet) 1 mg PO BID [facility] Last Admin: 06/24/22 11:14 Dose: 1 mg Documented By: MARLENA Dextrose (Dextrose 50 % 25 Gm/50 Ml Syringe) 25 gm IVPUSH Q15M PRN; Protocol PRN Reason: per Hypoglycemia Standing Ord. Docusate Sodium (Docusate Sodium 100 Mg Capsule) 100 mg PO DAILY PRN PRN Reason: Constipation Fenofibrate (Fenofibrate 160 Mg Tablet) 160 mg PO DAILY [facility] Last Admin: 06/24/22 12:34 Dose: 160 mg Documented By: MARLENA Glucose (Glucose Gel 15 Gm Gel..Gram.) 15 gm PO Q15M PRN; Protocol PRN Reason: per Hypoglycemia Standing Ord. Heparin Sodium (Porcine) (Heparin Sodium,Porcine 5,000 Unit/Ml Vial) 5,000 unit SUBCUT Q12H [facility] Last Admin: 06/24/22 10:01 Dose: 5,000 unit Documented By: MARLENA Lactated Ringer's (Lr) 1,000 mls @ 100 mls/hr IVCONT .Q10H [facility] Last Admin: 06/24/22 14:06 Dose: 100 mls/hr Documented By: MARLENA Insulin Human Lispro (Insulin Lispro 100 Unit/Ml 3 Ml Vial) 0 unit SUBCUT QIDACHS [facility]; Protocol Last Admin: 06/24/22 14:01 Dose: Not Given Documented By: LANCE Non-Admin Reason: poc 90 Lidocaine (Lidocaine 4 % Patch Adh..Patch) 1 patch TRANSDERMA DAILY [facility]; Protocol Last Admin: 06/24/22 14:06 Dose: 1 patch Documented By: MARLENA Nicotine (Nicotine 21 Mg Patch.Td24) 21 mg TRANSDERMA DAILY [facility] Last Admin: 06/24/22 10:01 Dose: 21 mg Documented By: MARLENA Nicotine (Nicotine 21 Mg Patch.Td24) 21 mg TRANSDERMA DAILY [facility] Last Admin: 06/24/22 11:17 Dose: 21 mg Documented By: MARLENA Omeprazole (Omeprazole 40 Mg Capsule.) 40 mg PO BID@0630,1630 [facility] Last Admin: 06/24/22 06:37 Dose: 40 mg Documented By: TOMI Omeprazole (Omeprazole 20 Mg Capsule.) 20 mg PO DAILY [facility] Last Admin: 06/24/22 11:17 Dose: 20 mg Documented By: MARLENA Pharmacy Consult (Consult Rx Perform Med Rec) 1 each MISCELLANE ONCE PRN PRN Reason: Consult order Prochlorperazine Edisylate (Prochlorperazine Edisylate 10 Mg/2 Ml Vial) 5 mg IVPUSH Q4H PRN PRN Reason: Nausea and Vomiting Propranolol HCl (Propranolol Hcl 10 Mg Tablet) 10 mg PO BID PRN; Protocol PRN Reason: NEEDED Sodium Chloride (0.9 % Sodium Chloride Flush 3 Ml Syringe) 3 ml IVFLUSH QSHIFT [facility] Last Admin: 06/24/22 17:20 Dose: Not Given Documented By: RONALDO Non-Admin Reason: IV Running Venlafaxine HCl (Venlafaxine Hcl Er 150 Mg Cap.Er.24h) 150 mg PO DAILY [facility] Last Admin: 06/24/22 11:14 Dose: 150 mg Documented By: MARLENA Labs CBC & Chem 7: 06/24/22 04:08 06/24/22 04:08 Labs: Laboratory Results - last 24 hr 06/23/22 06/23/22 06/24/22 20:34 20:48 04:08 MCV 86.6 MCH 30.0 MCHC 34.7 RDW 12.7 Plt Count 258 D MPV 10.1 Immature Gran % (Auto) 0.5 H Neut % (Auto) 69.6 Lymph % (Auto) 18.6 L [place] % (Auto) 9.7 Eos % (Auto) 1.3 Baso % (Auto) 0.3 Lymph # (Auto) 2.1 [place] # (Auto) 1.1 Eos # (Auto) 0.1 Baso # (Auto) 0.0 Abs Immat Gran (auto) 0.05 H Absolute Neuts (auto) 7.7 Absolute Nucleated RBC 0.000 Nucleated RBC % (auto) 0.0 Anion Gap 15 Estim Creat Clear Calc 58.5 Estimated GFR 49 POC Glucose Random Glucose 95 Lactic Acid 0.9 Calcium 7.5 L D 06/24/22 06/24/22 06/24/22 04:08 07:12 13:41 MCV MCH MCHC RDW Plt Count MPV Immature Gran % (Auto) Neut % (Auto) Lymph % (Auto) [place] % (Auto) Eos % (Auto) Baso % (Auto) Lymph # (Auto) [place] # (Auto) Eos # (Auto) Baso # (Auto) Abs Immat Gran (auto) Absolute Neuts (auto) Absolute Nucleated RBC Nucleated RBC % (auto) Anion Gap 14 Estim Creat Clear Calc 65.7 Estimated GFR 57 POC Glucose 79 90 Random Glucose 93 Lactic Acid Calcium 7.9 L Microbiology Microbiology Results: Microbiology 06/23/22 Unknown Urine Culture - Final Urine clean catch - Urine suárez top Assessment and Plan (1) Intractable nausea and vomiting: Status: Acute (2) Acute dehydration: Status: Acute (3) Acute kidney injury: Status: Acute Plan 62-year-old male with past medical history of HTN, dm, HLD, anxiety and depression, who presents to the hospital with complaints of intractable nausea and vomiting found to have RICARDO # RICARDO on CKD -? secondary to dehydration/vomiting - ? although urine is positive, there is no evidence of UTI, patient asymptomatic, -? improving with IV fluids -? will continue IV hydration -? follow BMP #? acute dehydration -? secondary to nausea vomiting -? continue IV fluids #? intractable nausea vomiting -? likely secondary to cyclic vomiting syndrome in the setting of marijuana use. -? he does smoke marijuana daily and has continued despite the nausea vomiting -d/wt abstinence from marijuana, -? will treat with antiemetics and IV hydration #? diabetes: fs in 70-90 range -? hold oral anti- hyperglycemics -? low-dose sliding scale insulin adjusted. -? diabetic diet #? HTN -? elevated -? will resume his home medications ?DVT prophylaxis:? Heparin subQ inpatient need: acute? kidney failure patient will require a minimum 2 night hospital stay? for IV fluids and further monitoring Quality Stroke Does the patient have a stroke diagnosis?: No VTE Prior VTE?: No VTE Risk Level:: Medical - moderate - high VTE Device Contraindication: Treatment Not Indicated VTE Drug Contraindication: N/A - Med Ordered
[2022-06-24 18:48] LABS: Glucose, Whole Blood 74 mg/dL (60-115)
--- NOTE | 2022-06-24 22:32 | MHC.CM.PN ---
IMM 06/24. Pt is disabled [employer] . 100% vet connected. Has veterans insurance, Medicare B and [address] insurance which is veterans state coverage. Pt lives in [facility] at [facility] in [place]. Pt has services at [facility] [place] and [facility] mental health services. Pt lives alone. Drives. No DME. [id number]. HCP on file. HCP#1/sister Cookie Jefferson ([phone]) and HCP#2 Seb Lindo (son) ([phone]. D/C plan: Home with continued Veterans services. Pt will arrange transportation home. CM to follow for d/c planning.
[2022-06-24 22:57] LABS: Glucose, Whole Blood 82 mg/dL (60-115)
[2022-06-24 23:19] VITALS: BP 120/68; PULSE 66; RESP 18; O2SAT 94
[2022-06-24 23:52] VITALS: BP 119/77; PULSE 68; RESP 16; TEMP 36.8; O2SAT 95
[2022-06-25] MEDS: Lactated Ringers 1,000 ML 100 ML IVCONT (02:03)
[2022-06-25 03:23] VITALS: BP 140/74; PULSE 57; RESP 15; TEMP 36.8; O2SAT 95
[2022-06-25] MEDS: Omeprazole 40 MG CAPSULE.DR PO (05:17)
[2022-06-25 07:10] LABS: Glucose, Whole Blood 89 mg/dL (60-115)
[2022-06-25] MEDS: Atorvastatin Calcium 20 MG TABLET PO (07:53)
[2022-06-25 07:54] VITALS: BP 120/83; PULSE 76; RESP 16; TEMP 36.1; O2SAT 98
[2022-06-25] MEDS: Omeprazole 20 MG CAPSULE.DR PO (07:54)
[2022-06-25] MEDS: Heparin Sodium,Porcine 5,000 UNIT/ML VIAL 5000 UNIT SUBCUT (07:54)
[2022-06-25] MEDS: Aspirin Enteric Coated 81 MG TABLET.DR PO (07:54)
[2022-06-25] MEDS: Nicotine 21 MG PATCH.TD24 TRANSDERMA (07:55)
[2022-06-25] MEDS: Venlafaxine HCl ER 150 MG CAP.ER.24H PO (09:17)
[2022-06-25] MEDS: Fenofibrate 160 MG TABLET PO (09:17)
[2022-06-25] MEDS: clonazePAM 1 MG TABLET PO (09:17)
[2022-06-25 11:05] VITALS: BP 127/80; PULSE 67; RESP 14; TEMP 37; O2SAT 97
--- NOTE | 2022-06-25 11:23 | P.DS_ITS ---
DS: Providers Provider Date of Service: 06/25/22 Date of admission: 06/23/22 20:47 Primary care physician: EDWIGE Guo Consults: 06/23/22 17:35 BHN [Consult to Crisis] Stat Reason for consultation: anxiety, vague SI DS: Diagnosis Discharge Diagnosis (1) Intractable nausea and vomiting: Status: Acute (2) Acute dehydration: Status: Acute (3) Acute kidney injury: Status: Acute DS: Summary Hospital Course Hospital Course: 62-year-old male with past medical history of diabetes, CKD, depression, HTN, HLD, anxiety who presents to the hospital with complaints of intractable nausea vomiting for the past 5 days.? Patient reports that he has discomfort in the stomach, as well as pain and burning sensation that? starts at the systemic and moves up? to his throat, he feels significant nausea, then he self induces vomiting which makes him feel slightly better.? he reports that this has been going on for over a year. he reports that the only thing that has seemed to work for him is hot showers, reports that he has been sitting in the shower for 4 days trying to relieve his symptoms.? He denies any diarrhea or constipation, denies any urinary frequency, dysuria or urgency.? He reports no fever or chills.? No shortness of breath or chest pain.? He reports that he is unable to keep anything down including even water due to the severe nausea and vomiting. ? Patient has no headache or change in vision, no numbness or tingling, no lower extremity edema.? On arrival to the ED patient? hemodynamically stable with no significant abnormal vitals Labs are significant for? WBC count of 14.2, hemoglobin of 17.6, hematocrit 49.4, sodium of 133, potassium of 3.1,? BUN of 41, creatinine of 2.44 with a baseline of around 1.2-1.3, lipase of 46, urine positive for small amount of leukocyte Estrace and 0-5 WBC with squamous hepatocellular cells, urine is positive for benzodiazepines as well as marijuana.? COVID-19 negative ?under Dr. Meyer to the ED patient apparently endorsed suicidal ideation, when I asked him more about it he said that because of the severe pain and the intractable nausea and vomiting . ? he currently has no suicidal ideation, no plan to harm himself or others. Patient started on IV fluids, but continues to have elevated creatinine therefore will be admitted for further management. Hospital course: Patient admitted for intractable nausea vomiting, RICARDO, dehydration possible related to marijuana use. Patient RICARDO improved with hydration as well as nausea vomiting also improved with supportive care with antiemetic as well as hydration. Currently patient is tolerating diet. Patient is to monitor BMP in 1 week with PCP. Further management out patiently, patient was strongly advised to abstain from marijuana if possible. plan: Patient is to monitor BMP in 1 week with PCP. Encouraged for p.o. hydration. Further management out patiently, patient was strongly advised to abstain from marijuana if possible. Above management discussed with the patient in detail length he understand and in agreement with the above plan, time spent 50 minutes and 50% time spent on counseling. Significant findings: As above. Procedures performed: None. Treatment and response: As above. Complications: None. Time Spent with Patient Time attestation: Total time spent providing and/or coordinating discharge services: Discharge coordination time: Greater than 30 minutes Quality: Safe Use of Opioids Does Pt have an Active Cancer Diagnosis on the Problem List?: No Quality: Stroke Does the patient have a stroke diagnosis?: No Physical Exam Vital Signs: Vital Signs: Last Vital Signs Temp 98.6 F 06/25/22 11:05 Pulse 67 06/25/22 11:05 Resp 14 06/25/22 11:05 BP 127/80 06/25/22 11:05 Pulse Ox 97 06/25/22 11:05 O2 Del Method 06/25/22 11:05 BMI result Body Mass Index 30.4 Appearance: Alert.? Oriented X3.? not in distress.? cvs: rrr, [id number] , no murmur res: clear to auscultation ,no rhonchii or wheezing abd: no rebound or guarding ,epigastric discomfort, bs present. ext pulses present , no cyanosis. neuro: axo3 , nonfocal. DS: Data Data Completed and Pending Completed studies during hospitalization [Text1]: Procedures Insertion of Infusion Device into Superior Vena Cava, Percutaneous Approach (01/23/22) Ultrasonography of Superior Vena Cava, Guidance (01/23/22) Labs on day of discharge: Laboratory Results - last 24 hr 06/24/22 06/24/22 06/24/22 13:41 18:44 22:50 POC Glucose 90 74 82 06/25/22 07:05 POC Glucose 89 Preliminary micro results at discharge 06/23/22 20:48 Blood Culture - Preliminary Blood - Venous No growth after 24 hours. 06/23/22 20:34 Blood Culture - Preliminary Blood - Venous No growth after 24 hours. Additional Comments Additional comments: CT/CT abdomen pelvis wo IV con IMPRESSION: -Sigmoid diverticulosis without evidence of definite diverticulitis. Nonobstructive bowel gas pattern. ? -No acute findings otherwise identified in the abdomen or pelvis. Chronic changes as detailed above. ? Fleischner guidelines were followed. Discharge Plan Discharge Patient Disposition: Home, Self-Care Discharge Diagnosis: Intractable nausea vomiting possible related to marijuana, dehydration, RICARDO Referrals: Daron Oconnell PA [Primary Care Provider] - 1 Week Discharge Medications: Continued venlafaxine 150 mg capsule,extended release 24hr 1 cap PO DAILY fenofibrate 160 mg Tablet 160 mg PO DAILY metformin 500 mg Tablet 250 mg PO BID atorvastatin 20 mg Tablet 20 mg PO DAILY propranolol 10 mg Tablet 10 mg PO BID PRN (Reason: NEEDED) omeprazole 20 mg Capsule,Delayed Release(Dr/Ec) 20 mg PO DAILY lisinopril 5 mg Tablet 5 mg PO DAILY aspirin 81 mg Tablet,Delayed Release (Dr/Ec) 81 mg PO DAILY clonazepam 1 mg Tablet 1 mg PO BID Qty: 0 0RF nicotine 21 mg/24 hr Patch 24 Hour 21 mg transdermal DAILY Qty: 30 0RF Discharge Orders: Discharge Order (Routine); Ordered 06/25/22 Ordered By: Lenin Pan Diet: Advance to usual diet Activity on Discharge: As tolerated Stand Alone Forms: Patient Portal Discharge page Other Ambulatory Orders: Basic Metabolic Panel (Routine) Timeframe: 1 Week Facility: [facility] - Location: Laboratory Ordered By: Lenin Pan Care Plan Goals: Patient admitted for intractable nausea vomiting, RICARDO, dehydration possible related to marijuana use. Patient RICARDO improved with hydration as well as nausea vomiting also improved with supportive care with antiemetic as well as hydration. Currently patient is tolerating diet. Patient is to monitor BMP in 1 week with PCP. Further management out patiently, patient was strongly advised to abstain from marijuana if possible. Health Concerns: If develop persistent nausea vomiting or abdominal pain or fever or chills please go to nearest emergency room for further evaluation. Plan of Treatment: Patient is to monitor BMP in 1 week with PCP. Encouraged for p.o. hydration. Further management out patiently, patient was strongly advised to abstain from marijuana if possible. Assessment: As above. Discharge Date/Time: 06/25/22 14:14
--- NOTE | 2022-06-25 11:32 | MHC.CM.PN ---
Patient has been medically cleared for dc to home today, self care. Last IMM addressed yesterday.
[2022-06-25 12:18] LABS: Glucose, Whole Blood 76 mg/dL (60-115)
--- NOTE | 2022-06-25 14:08 | PC.NURSE ---
Pt tolerated diet. Denies n/v or pain at this time
== END 2022-06-25 14:14 | disposition home or self-care (01) | DRG 641 ==
LOC: HO.ED 20:41 → HO.EDOVER 21:00
PROVIDERS: Nurse Practitioner Family; Admitting Provider Internal Medicine; Emergency Provider Emergency Medicine; PCP Physician Assistant Medical; Visit Provider Internal Medicine
DX: E86.0 Dehydration (principal); N17.9 Acute kidney failure, unspecified; R11.2 Nausea with vomiting, unspecified; I12.9 Hypertensive chronic kidney disease with stage 1 through stage 4 chronic kidney disease, or unspecified chronic kidney disease; N18.30 Chronic kidney disease, stage 3 unspecified; E78.5 Hyperlipidemia, unspecified; E11.22 Type 2 diabetes mellitus with diabetic chronic kidney disease; F32.A Depression, unspecified; F12.90 Cannabis use, unspecified, uncomplicated; F41.0 Panic disorder [episodic paroxysmal anxiety]; Z20.822 Contact with and (suspected) exposure to COVID-19; Z87.81 Personal history of (healed) traumatic fracture; Z88.5 Allergy status to narcotic agent; Z79.82 Long term (current) use of aspirin; Z79.84 Long term (current) use of oral hypoglycemic drugs; Z79.899 Other long term (current) drug therapy
CPT/HCPCS: 36415; 74176; 80048; 80053; 80076; 80307; 81001; 82077; 82947; 83605; 83690; 84484; 85025; 87040; 87086; 87635; 93005; 99285; J2405

== ENCOUNTER 2022-12-22 09:33 | Emergency (ER) | payer OTHER, SELFPAY ==
[2022-12-22 09:46] VITALS: BP 173/93; PULSE 67; RESP 20; TEMP 36.6; O2SAT 97; BMI 33.2
--- NOTE | 2022-12-22 10:09 | ECG_ITS ---
Test Reason : ANXIETY Blood Pressure : / mmHG Vent. Rate : 061 BPM Atrial Rate : 061 BPM P-R Int : 144 ms QRS Dur : 108 ms QT Int : 420 ms P-R-T Axes : 010 -01 027 degrees QTc Int : 422 ms Normal sinus rhythm Incomplete right bundle branch block Borderline ECG When compared with ECG of 23-JUN-2022 13:19, Vent. rate has decreased BY 44 BPM Nonspecific T wave abnormality, improved in Lateral leads QT has shortened Referred By: Vanessa Fregoso Electronically Signed By:ANDRZEJ CASAS MD
--- NOTE | 2022-12-22 10:11 | ED_ITS ---
HPI - General Adult General Chief complaint: Anxiety Stated complaint: SICK SINCE THURSDAY Time Seen by Provider: 12/22/22 09:55 Source: patient and EMS Mode of arrival: EMS Limitations: no limitations History of Present Illness HPI narrative: A 62-year-old male came in by ambulance for evaluation of possible dehydration. Patient was longstanding history of anxiety that causes the patient to vomit and the patient is prone to dehydration when it happened, patient at this point declined any CP or SOB, no abdominal pain, no diarrhea. No SI, no HI, no auditory hallucination. Related Data Home Medications Medication Instructions Recorded Confirmed aspirin 81 mg tablet,delayed 81 mg PO DAILY 11/11/21 06/23/22 release atorvastatin 20 mg tablet 20 mg PO DAILY 11/11/21 06/23/22 lisinopril 5 mg tablet 5 mg PO DAILY 11/11/21 06/23/22 omeprazole 20 mg capsule,delayed 20 mg PO DAILY 11/11/21 06/23/22 release propranolol 10 mg tablet 10 mg PO BID PRN NEEDED 11/11/21 06/23/22 venlafaxine 150 mg 1 cap PO DAILY 01/23/22 06/23/22 capsule,extended release 24 hr fenofibrate 160 mg tablet 160 mg PO DAILY 05/23/22 06/23/22 metformin 500 mg tablet 250 mg PO BID 06/23/22 06/23/22 Previous Rx's Medication Instructions Recorded clonazepam 1 mg tablet 1 mg PO BID #0 tabs 11/22/21 nicotine 21 mg/24 hr daily 21 mg transdermal DAILY #30 ea 11/22/21 transdermal patch Allergies Allergy/AdvReac Type Severity Reaction Status Date / Time codeine [CODEINE] AdvReac Severe Nausea Verified 01/23/22 10:17 Review of Systems Review of Systems: All other systems are reviewed and are negative Constitutional: Reports as per HPI and Reports no additional constitutional comp laints Eyes: Reports as per HPI and Reports no additional eye complaints Reports system reviewed and no additional complaints, except as documented Cardiovascular: Reports as per HPI and Reports no additional cardiovascular complaints Respiratory: Reports as per HPI and Reports no additional respiratory complaints Gastrointestinal: Reports as per HPI and Reports no additional gastrointestinal complaints Genitourinary: Reports no additional female genitourinary complaints Musculoskeletal: Reports no additional musculoskeletal complaints Skin/Breast: Reports system reviewed and no additional complaints, except as docu Psychiatric: Reports no additional psychiatric complaints Endocrine: Reports no additional endocrine complaints Hematologic/Lymphatic: Reports no additional hematologic/lymphatic complaints Allergic/Immunologic: Reports no additional allergic/immunologic complaints Reports system reviewed and no additional complaints, except as documented and Reports Abnormal speech present [facility] Past Medical History Medical History Amputation finger Anxiety Chronic renal insufficiency Depression Diabetes GERD (gastroesophageal reflux disease) H/O ETOH abuse HTN (hypertension) Hyperlipidemia Osteomyelitis Panic attacks Smoker Surgical History H/O colonoscopy History of carpal tunnel release of both wrists Hx of foot surgery Family History Family History Other No family history of coronary artery disease Social History Social History Household Members: None Household Members Other:: Self Housing: Apartment Housing Other:: lives in basement of a home Do you presently have visiting nurse or other home services: No Alcohol intake: current Alcohol intake frequency: a few times a week Alcohol type: wine Patient Tobacco Use Status: Former Tobacco user Quit Date: 2 weeks ago Tobacco use type: Cigarette Cigarette Packs Per Day: 0.5 Cigarettes Per Day: 10.0 Years Smoked: 28 Smoked in Last 30 Days: Yes Second Hand Smoke Exposure: No Use of substances other than those prescribed or required for medical reasons: Yes Substance Use Type: Marijuana Advance Directives: Yes Advance Directives on File: Yes Advance Directives Date on File: 06/24/22 service: Yes (Pt was in the [employer].) Current occupational status: disabled Sexual orientation: Straight/Heterosexual Physical Exam ED Vital Signs: Vital Signs - 24 hr 12/22/22 09:46 12/22/22 12:46 12/22/22 15:31 Temperature 97.9 F Pulse Rate 67 67 Respiratory Rate 20 18 Blood Pressure 173/93 H 165/100 H Pulse Oximetry 97 96 Oxygen Delivery Method Room Air Room Air Room Air 12/22/22 15:31 Temperature 98.0 F Pulse Rate 55 Respiratory Rate 13 Blood Pressure 151/91 H Pulse Oximetry 92 Oxygen Delivery Method Room Air BMI result Body Mass Index 33.2 Vital signs have been reviewed as appeared to be correct. Blood pressure normal. Heart rate normal. Respiration rate normal. Temperature normal. Oxygen saturation normal. Appearance: Alert. Oriented X3. No acute distress. Head: Normal external exam. Normocephalic. Atraumatic. No Powell signs noted. No raccoon eyes noted Eyes: PERRLA. EOMI. Conjunctiva and sclera normal. Eyelids normal. ENT: TM's Normal. Pharynx normal. Uvula midline. Moist mucous membranes. No trismus noted. No drooling noted. No muffled voice noted. Neck: Normal inspection. Neck supple. FROM. No adenopathy. Thyroid Normal. No meningeal signs. No neck mass noted. CVS: Normal heart rate and rhythm. Heart sound normal. No murmurs noted. Pulses normal throughout. Respiratory: No respiratory distress. Painless inspiration. Breath sounds normal. No wheezes/rales/rhonchi noted. Chest nontender. No accessory muscle usage noted or decreased air movement noted. Abdomen: Soft and nontender. Bowel sounds normal in all 4 quadrants. No distention noted. No organomegaly noted. No visible injury noted. Back: No CVA tenderness. Full range of motion noted. Skin: Skin warm and dry. Normal skin color. Normal skin turgor. No rashes/lesions/lacerations noted. Extremities: No lower extremity edema. Extremities exhibit normal range of motion. Extremities nontender. Neuro: Oriented X 3. Cranial nerve exam: II-XII are grossly intact No motor deficit. No sensory deficit. Reflexes normal. Patient Orientation: Person, Place, Time and Situation, okay hygiene and lilibeth oming. Fair eye contact, attentive, no tics or tremors. Level of Consciousness: Awake, Appropriate and Alert Patient Behavior: Appropriate, Guarded, Cooperative and Anxious Mood Description: Constricted, Blunted and Apprehensive Affect Description: Constricted, Blunted and Apprehensive Patient Cognition Impaired: No Ability to Follow Directions: Excellent Speech Pattern: Clear, Appropriate and Spontaneous Speech, nonpressured, spontaneous with regular rate and rhythm, normal volume and prosody. No dysarthria. Memory Description: Intact, Immediate Intact and Short Term Intact Hallucinations: None Delusions: Not Present Thought Process: Intact Thought Content: positive for Intact, positive for Logical, denies Suicidal Ideation and denies Homicidal Ideation. Depressive Symptoms: Not present. Judgement and Insight: Limited but adequate. Course Course Course Narrative: Dehydration/anxiety, patient's symptoms improved after Ativan and IV hydration, kidney function is improving with hydration patient was instructed to drink plenty of fluid. Medications Administered Discontinued Medications Generic Name Dose Route Start Last Admin Trade Name Reganq PRN Reason Stop Dose Admin Al Hydroxide/Mg Hydroxide 30 ml 12/22/22 10:08 12/22/22 10:36 Magnesium Hydrox/Alum Hydrox 30 Ml Oral.Susp PO 12/22/22 10:09 30 ml ONCE ONE Administration Famotidine 20 mg 12/22/22 10:08 12/22/22 10:36 Famotidine/Pf 20 Mg/2 Ml Vial IVPUSH 12/22/22 10:09 20 mg ONCE ONE Administration Sodium Chloride 1,000 mls @ 999 mls/hr 12/22/22 10:08 12/22/22 12:32 Ns IV 12/22/22 11:08 Infused .Q1H1M ONE Infusion Sodium Chloride 1,000 mls @ 999 mls/hr 12/22/22 13:13 12/22/22 15:17 Ns IV 12/22/22 14:13 Infused .Q1H1M ONE Infusion Lorazepam 2 mg 12/22/22 10:08 12/22/22 10:36 Lorazepam 2 Mg/Ml Vial IVPUSH 12/22/22 10:09 2 mg ONCE ONE Administration Lorazepam 1 mg 12/22/22 13:26 12/22/22 14:00 Lorazepam 1 Mg Tablet PO 12/22/22 13:27 1 mg ONCE ONE Administration Ondansetron HCl 4 mg 12/22/22 10:08 12/22/22 10:36 Ondansetron Hcl 4 Mg/2 Ml Vial IVPUSH 12/22/22 10:09 4 mg ONCE ONE Administration Medical Decision Making Differential Diagnosis Differential Diagnoses: The differential diagnosis associated with the presentation includes (Anxiety, dehydration, electrolyte disturbance, acute renal failure, anemia.) Lab Data MDM Lab Attestation statement: I reviewed the patient's lab results. 12/22/22 10:34 12/22/22 10:34 Labs: Lab Results 12/22/22 12/22/22 12/22/22 Range/Units 10:22 10:34 10:34 WBC 16.7 H (4.8-10.8) X10*3/uL RBC 5.45 (4.60-5.80) X10*6/uL Hgb 16.7 D (14.0-18.0) g/dl Hct 48.9 D (42.0-52.0) % MCV 89.7 (80.0-98.0) fL MCH 30.6 (27.0-33.0) pg MCHC 34.2 (31.0-36.0) g/dl RDW 13.7 (11.0-16.0) % Plt Count 265 (160-400) X10*3/uL MPV 10.3 (9.4-12.4) fL Immature Gran % (Auto) 0.6 H (0.0-0.4) % Neut % (Auto) 80.4 H (45-73) % Lymph % (Auto) 9.3 L (20-40) % Sebastian % (Auto) 9.2 (2-11) % Eos % (Auto) 0.1 (0-4) % Baso % (Auto) 0.4 (0-2) % Lymph # (Auto) 1.6 (1.2-4.9) X10*3/uL Sebastian # (Auto) 1.5 H (0.1-1.2) X10*3/uL Eos # (Auto) 0.0 (0.0-0.4) X10*3/uL Baso # (Auto) 0.1 (0.0-0.2) X10*3/uL Abs Immat Gran (auto) 0.10 H (0.00-0.03) X10*3/uL Absolute Neuts (auto) 13.4 H (2.0-8.3) x10*3/uL Absolute Nucleated RBC 0.000 (0.0-0.012) X10*3/uL Nucleated RBC % (auto) 0.0 (0.0-0.2) /100WBC Smear Tech's Comments VERIFIED Sodium 142 (135-145) mmol/L Potassium 4.0 (3.3-5.1) mmol/L Chloride 103 (96-108) mmol/L Carbon Dioxide 24 (22-29) mmol/L Anion Gap 19 (12-20) BUN 26 H (9-16) mg/dL Creatinine 1.75 H (0.5-1.4) mg/dL Estim Creat Clear Calc 50.5 Estimated GFR 40 Random Glucose 97 (60-115) mg/dL Calcium 9.7 D (8.4-10.2) mg/dL Total Bilirubin 0.9 (0.0-1.0) mg/dL Direct Bilirubin 0.3 (0.0-0.5) mg/dL AST 38 H (5-37) U/L ALT 27 (0-40) U/L Alkaline Phosphatase 24 L (39-117) U/L Troponin I High Sens (<3.5-35.0) ng/L Total Protein 7.4 (6.5-8.0) g/dL Albumin 4.7 (3.5-5.0) g/dL Lipase 27 (8-78) U/L Urine Color Urine Appearance Urine pH (5.0-9.0) Ur Specific Dixon (1.005-1.025) Urine Protein (Neg-Trace) mg/dL Urine Glucose (UA) (Negative) mg/dL Urine Ketones (Negative) mg/dL Urine Blood (Negative) Urine Nitrite (Negative) Ur Leukocyte Esterase (Negative) Urine RBC (0-2) /HPF Urine WBC (0-5) /HPF Ur Squamous Epith Cells (0-2) /HPF Urine Bacteria (None Seen) Hyaline Casts (0-2) /LPF COVID-19 (RG) Negative (Negative) COVID-19 Clin Com See Note 12/22/22 12/22/22 12/22/22 Range/Units 10:34 12:34 14:58 WBC (4.8-10.8) X10*3/uL RBC (4.60-5.80) X10*6/uL Hgb (14.0-18.0) g/dl Hct (42.0-52.0) % MCV (80.0-98.0) fL MCH (27.0-33.0) pg MCHC (31.0-36.0) g/dl RDW (11.0-16.0) % Plt Count (160-400) X10*3/uL MPV (9.4-12.4) fL Immature Gran % (Auto) (0.0-0.4) % Neut % (Auto) (45-73) % Lymph % (Auto) (20-40) % Sebastian % (Auto) (2-11) % Eos % (Auto) (0-4) % Baso % (Auto) (0-2) % Lymph # (Auto) (1.2-4.9) X10*3/uL Sebastian # (Auto) (0.1-1.2) X10*3/uL Eos # (Auto) (0.0-0.4) X10*3/uL Baso # (Auto) (0.0-0.2) X10*3/uL Abs Immat Gran (auto) (0.00-0.03) X10*3/uL Absolute Neuts (auto) (2.0-8.3) x10*3/uL Absolute Nucleated RBC (0.0-0.012) X10*3/uL Nucleated RBC % (auto) (0.0-0.2) /100WBC Smear Tech's Comments Sodium 140 (135-145) mmol/L Potassium 4.1 (3.3-5.1) mmol/L Chloride 108 (96-108) mmol/L Carbon Dioxide 21 L (22-29) mmol/L Anion Gap 15 (12-20) BUN 22 H (9-16) mg/dL Creatinine 1.26 (0.5-1.4) mg/dL Estim Creat Clear Calc 70.2 Estimated GFR 58 Random Glucose 102 (60-115) mg/dL Calcium 8.3 L D (8.4-10.2) mg/dL Total Bilirubin (0.0-1.0) mg/dL Direct Bilirubin (0.0-0.5) mg/dL AST (5-37) U/L ALT (0-40) U/L Alkaline Phosphatase (39-117) U/L Troponin I High Sens 5.5 (<3.5-35.0) ng/L Total Protein (6.5-8.0) g/dL Albumin (3.5-5.0) g/dL Lipase (8-78) U/L Urine Color Yellow Urine Appearance Clear Urine pH 6.0 (5.0-9.0) Ur Specific Dixon >= 1.030 H (1.005-1.025) Urine Protein 100 (2+) H (Neg-Trace) mg/dL Urine Glucose (UA) 100 H (Negative) mg/dL Urine Ketones Trace (Negative) mg/dL Urine Blood Negative (Negative) Urine Nitrite Negative (Negative) Ur Leukocyte Esterase Negative (Negative) Urine RBC 0-2 (0-2) /HPF Urine WBC 0-5 (0-5) /HPF Ur Squamous Epith Cells 0-2 (0-2) /HPF Urine Bacteria None Seen (None Seen) Hyaline Casts 0-2 (0-2) /LPF COVID-19 (RG) (Negative) COVID-19 Clin Com 12/22/22 Range/Units 14:58 WBC 16.0 H (4.8-10.8) X10*3/uL RBC 5.08 (4.60-5.80) X10*6/uL Hgb 15.5 (14.0-18.0) g/dl Hct 45.2 (42.0-52.0) % MCV 89.0 (80.0-98.0) fL MCH 30.5 (27.0-33.0) pg MCHC 34.3 (31.0-36.0) g/dl RDW 13.3 (11.0-16.0) % Plt Count 242 (160-400) X10*3/uL MPV 10.4 (9.4-12.4) fL Immature Gran % (Auto) 0.4 (0.0-0.4) % Neut % (Auto) 78.3 H (45-73) % Lymph % (Auto) 12.9 L (20-40) % Sebastian % (Auto) 8.1 (2-11) % Eos % (Auto) 0.1 (0-4) % Baso % (Auto) 0.2 (0-2) % Lymph # (Auto) 2.1 (1.2-4.9) X10*3/uL Sebastian # (Auto) 1.3 H (0.1-1.2) X10*3/uL Eos # (Auto) 0.0 (0.0-0.4) X10*3/uL Baso # (Auto) 0.0 (0.0-0.2) X10*3/uL Abs Immat Gran (auto) 0.06 H (0.00-0.03) X10*3/uL Absolute Neuts (auto) 12.6 H (2.0-8.3) x10*3/uL Absolute Nucleated RBC 0.000 (0.0-0.012) X10*3/uL Nucleated RBC % (auto) 0.0 (0.0-0.2) /100WBC Smear Tech's Comments Sodium (135-145) mmol/L Potassium (3.3-5.1) mmol/L Chloride (96-108) mmol/L Carbon Dioxide (22-29) mmol/L Anion Gap (12-20) BUN (9-16) mg/dL Creatinine (0.5-1.4) mg/dL Estim Creat Clear Calc Estimated GFR Random Glucose (60-115) mg/dL Calcium (8.4-10.2) mg/dL Total Bilirubin (0.0-1.0) mg/dL Direct Bilirubin (0.0-0.5) mg/dL AST (5-37) U/L ALT (0-40) U/L Alkaline Phosphatase (39-117) U/L Troponin I High Sens (<3.5-35.0) ng/L Total Protein (6.5-8.0) g/dL Albumin (3.5-5.0) g/dL Lipase (8-78) U/L Urine Color Urine Appearance Urine pH (5.0-9.0) Ur Specific Dixon (1.005-1.025) Urine Protein (Neg-Trace) mg/dL Urine Glucose (UA) (Negative) mg/dL Urine Ketones (Negative) mg/dL Urine Blood (Negative) Urine Nitrite (Negative) Ur Leukocyte Esterase (Negative) Urine RBC (0-2) /HPF Urine WBC (0-5) /HPF Ur Squamous Epith Cells (0-2) /HPF Urine Bacteria (None Seen) Hyaline Casts (0-2) /LPF COVID-19 (RG) (Negative) COVID-19 Clin Com Independent Interpretation I performed an independent interpretation of an: EKG (Normal sinus rhythm at 61 beats per minutes, normal intervals, no significant change from previous EKG.) Discharge Plan Discharge Clinical Impression: Acute anxiety, Dehydration Patient Disposition: Home, Self-Care Instructions: Dehydration (ED) Prescriptions: No Action venlafaxine 150 mg capsule,extended release 24hr 1 cap PO DAILY fenofibrate 160 mg Tablet 160 mg PO DAILY metformin 500 mg Tablet 250 mg PO BID atorvastatin 20 mg Tablet 20 mg PO DAILY propranolol 10 mg Tablet 10 mg PO BID PRN (Reason: NEEDED) omeprazole 20 mg Capsule,Delayed Release(Dr/Ec) 20 mg PO DAILY lisinopril 5 mg Tablet 5 mg PO DAILY aspirin 81 mg Tablet,Delayed Release (Dr/Ec) 81 mg PO DAILY clonazepam 1 mg Tablet 1 mg PO BID Qty: 0 0RF nicotine 21 mg/24 hr Patch 24 Hour 21 mg transdermal DAILY Qty: 30 0RF Referrals: Daron Oconnell PA [Primary Care Provider] - Stand Alone Forms: Work/School Release
[2022-12-22] MEDS: 0.9 % Sodium Chloride 1,000 ML 999 ML IV ×2 (10:35→14:00)
[2022-12-22] MEDS: ondansetron HCL 4 MG/2 ML VIAL IVPUSH (10:36)
[2022-12-22] MEDS: Magnesium Hydrox/Alum Hydrox 30 ML ORAL.SUSP PO (10:36)
[2022-12-22] MEDS: LORazepam 2 MG/ML VIAL IVPUSH (10:36)
[2022-12-22] MEDS: Famotidine/PF 20 MG/2 ML VIAL IVPUSH (10:36)
[2022-12-22 10:40] LABS: Basophils Absolute Auto 0.1 X10*3/uL (0.0-0.2); Basophils Percent Auto 0.4 % (0-2); Eosinophils Percent Auto 0.1 % (0-4); Hematocrit 48.9 % (42.0-52.0); Hemoglobin 16.7 g/dl (14.0-18.0); Imm Gran Pct Auto 0.6 % (0.0-0.4); Lymphocytes Absolute Auto 1.6 X10*3/uL (1.2-4.9); Lymphocytes Percent Auto 9.3 % (20-40); MANUAL DIFF FLAG SCAN; Mean Corpuscular HGB Conc 34.2 g/dl (31.0-36.0); Mean Corpuscular Hemoglobin 30.6 pg (27.0-33.0); Mean Corpuscular Volume 89.7 fL (80.0-98.0); Mean Platelet Volume 10.3 fL (9.4-12.4); Monocytes Absolute Auto 1.5 X10*3/uL (0.1-1.2); Monocytes Percent Auto 9.2 % (2-11); Neutrophils Absolute Auto 13.4 x10*3/uL (2.0-8.3); Neutrophils Percent Auto 80.4 % (45-73); Platelet Count 265 X10*3/uL (160-400); Red Blood Count 5.45 X10*6/uL (4.60-5.80); Red Cell Distribution Width 13.7 % (11.0-16.0); SCAN SMEAR FLAG 1; White Blood Count 16.7 X10*3/uL (4.8-10.8)
[2022-12-22 10:52] LABS: COVID-19 Test Negative (Negative); IDNOW Serial# BCCEAD1C
[2022-12-22 11:02] LABS: SLIDE REVIEW VERIFIED
[2022-12-22 11:07] LABS: Alanine Aminotransferase 27 U/L (0-40); Albumin Level 4.7 g/dL (3.5-5.0); Alkaline Phosphatase 24 U/L (39-117); Anion Gap 19 (12-20); Aspartate Amino Transferase 38 U/L (5-37); Bilirubin Direct 0.3 mg/dL (0.0-0.5); Bilirubin Total 0.9 mg/dL (0.0-1.0); Blood Urea Nitrogen 26 mg/dL (9-16); Calcium 9.7 mg/dL (8.4-10.2); Carbon Dioxide 24 mmol/L (22-29); Chloride 103 mmol/L (96-108); Creatinine Clr Calc Pharmacy 50.5; Estimated Glomerular Filt Rate 40; Glucose Random 97 mg/dL (60-115); Lipase 27 U/L (8-78); Sodium 142 mmol/L (135-145); Total Protein 7.4 g/dL (6.5-8.0)
[2022-12-22 11:10] LABS: Troponin-I High Sensitivity 5.5 ng/L (<3.5-35.0)
[2022-12-22 12:46] VITALS: BP 165/100; PULSE 67; RESP 18; O2SAT 96
[2022-12-22 12:46] LABS: Appearance Urine Clear; Color Urine Yellow; Glucose Urine UA 100 mg/dL (Negative); Leukocyte Esterase Urine Negative (Negative); Nitrite Urine Negative (Negative); Specific Gravity - Urine >= 1.030 (1.005-1.025); UMIC TRIGGER UACC YES; Urine Blood Negative (Negative); Urine Ketones Trace mg/dL (Negative); Urine Protein 100 (2+) mg/dL (Neg-Trace)
[2022-12-22 12:48] LABS: Bacteria Urine None Seen (None Seen); Hyaline Casts Urine 0-2 /LPF (0-2); RBC Urine 0-2 /HPF (0-2); Squamous Epithelial Cell Urine 0-2 /HPF (0-2); WBC Urine 0-5 /HPF (0-5)
[2022-12-22] MEDS: LORazepam 1 MG TABLET PO (14:00)
[2022-12-22 15:01] LABS: MANUAL DIFF FLAG NO
[2022-12-22 15:05] LABS: Basophils Percent Auto 0.2 % (0-2); Eosinophils Percent Auto 0.1 % (0-4); Hematocrit 45.2 % (42.0-52.0); Hemoglobin 15.5 g/dl (14.0-18.0); Imm Gran Abs Auto 0.06 X10*3/uL (0.00-0.03); Imm Gran Pct Auto 0.4 % (0.0-0.4); Lymphocytes Absolute Auto 2.1 X10*3/uL (1.2-4.9); Lymphocytes Percent Auto 12.9 % (20-40); Mean Corpuscular HGB Conc 34.3 g/dl (31.0-36.0); Mean Corpuscular Hemoglobin 30.5 pg (27.0-33.0); Mean Platelet Volume 10.4 fL (9.4-12.4); Monocytes Absolute Auto 1.3 X10*3/uL (0.1-1.2); Monocytes Percent Auto 8.1 % (2-11); Neutrophils Absolute Auto 12.6 x10*3/uL (2.0-8.3); Neutrophils Percent Auto 78.3 % (45-73); Platelet Count 242 X10*3/uL (160-400); Red Blood Count 5.08 X10*6/uL (4.60-5.80); Red Cell Distribution Width 13.3 % (11.0-16.0)
[2022-12-22 15:31] VITALS: BP 151/91; PULSE 55; RESP 13; TEMP 36.7; O2SAT 92
[2022-12-22 15:46] LABS: Anion Gap 15 (12-20); Blood Urea Nitrogen 22 mg/dL (9-16); Calcium 8.3 mg/dL (8.4-10.2); Carbon Dioxide 21 mmol/L (22-29); Chloride 108 mmol/L (96-108); Creatinine Clr Calc Pharmacy 70.2; Estimated Glomerular Filt Rate 58; Glucose Random 102 mg/dL (60-115); Potassium 4.1 mmol/L (3.3-5.1); Sodium 140 mmol/L (135-145)
== END 2022-12-22 16:05 | disposition home or self-care (01) ==
PROVIDERS: Emergency Provider Emergency Medicine; PCP Physician Assistant Medical
DX: F41.9 Anxiety disorder, unspecified (principal); E86.0 Dehydration; E11.9 Type 2 diabetes mellitus without complications; I10 Essential (primary) hypertension; E78.5 Hyperlipidemia, unspecified; Z20.822 Contact with and (suspected) exposure to COVID-19
CPT/HCPCS: 36415; 80048; 80076; 81001; 83690; 84484; 85025; 87635; 93005; 96361; 96374; 96375; 99284; 99285; J2060; J2405

== ENCOUNTER 2023-02-18 05:10 | Inpatient (IN) | payer OTHER, SELFPAY ==
[2023-02-18] VITALS (10 sets, daily range): BP systolic 123–178; BP diastolic 63–118; PULSE 70–86; RESP 10–21; TEMP 36.7–37.3; O2SAT 93–99; BMI 32.7
--- NOTE | 2023-02-18 | ECG_ITS ---
Test Reason : CHEST PAIN/ ANXIETY Blood Pressure : / mmHG Vent. Rate : 071 BPM Atrial Rate : 071 BPM P-R Int : 158 ms QRS Dur : 106 ms QT Int : 400 ms P-R-T Axes : 057 -05 012 degrees QTc Int : 434 ms Normal sinus rhythm Incomplete right bundle branch block T wave abnormality, consider inferolateral ischemia Abnormal ECG When compared with ECG of 22-DEC-2022 10:39, T wave inversion now evident in Inferior leads T wave inversion now evident in Anterolateral leads Referred By: Generic ED Physician Electronically Signed By:Michael Starr
--- NOTE | ~2023-02-18 | XR_ITS ---
EXAMINATION: XR CHEST CLINICAL INFORMATION: Leukocytosis COMPARISON: Previous chest x-ray November [address] November 2021 TECHNIQUE: Frontal view of the chest was obtained. FINDINGS: No significant abnormality is noted involving the heart, lungs, mediastinum, bony thorax or soft tissues. Degenerative changes of the spine. XR/XR chest 1V IMPRESSION: Unremarkable examination.
--- NOTE | ~2023-02-18 | US_ITS ---
EXAMINATION: US RETROPERITONEAL LIMITED (RENAL ONLY) CLINICAL INFORMATION: Increased BUN/creatinine. COMPARISON: CT abdomen of June 23, 2022 TECHNIQUE: Renal ultrasound FINDINGS: RIGHT KIDNEY: 12.6 x 5.0 x 5.5 cm (SAG x AP x TRV). The kidney is normal in size, contour, and echogenicity. Renal cortical thickness is normal. No calculi or focal parenchymal lesions. No hydronephrosis. LEFT KIDNEY: 11.7 x 6.3 x 5.2 cm (SAG x AP x TRV). The kidney is normal in size, contour, and echogenicity. Renal cortical thickness is normal. No calculi or focal parenchymal lesions. No hydronephrosis. Cholelithiasis identified without evidence of acute cholecystitis. US/US renal BI IMPRESSION: No ultrasound abnormality of the kidneys identified. Cholelithiasis..
--- NOTE | 2023-02-18 06:08 | ED_ITS ---
HPI - Chest Pain General Chief Complaint: Anxiety Stated Complaint: panic attack Time Seen by Provider: 02/18/23 06:00 Source: patient Mode of arrival: EMS Limitations: no limitations History of Present Illness HPI narrative: 62-year-old male who presents emergency department for evaluation of a ?panic attack ?. Patient states that his mother 20 years ago. Thursday was mother's Day and he states that this holiday really had some hard and makes him very anxious and upset. He states that over the past 3 days he has been feeling anxious. He states he has been feeling short of breath. He also complains of chest pain and points to his mid sternum when asked to localize the pain. Describes the pain is a constant, pressure pain which does not change with breathing or movement. He does have associated shortness of breath but no diaphoresis, nausea, vomiting, radiation of his pain. He states that he has had all of these symptoms before secondary to his anxiety. He denied fever, chills, rhinorrhea, sore throat, cough, frequency, urgency or dysuria. He denies being suicidal or homicidal. Related Data Home Medications Medication Instructions Recorded Confirmed aspirin 81 mg tablet,delayed 81 mg PO DAILY 11/11/21 06/23/22 release atorvastatin 20 mg tablet 20 mg PO DAILY 11/11/21 06/23/22 lisinopril 5 mg tablet 5 mg PO DAILY 11/11/21 06/23/22 omeprazole 20 mg capsule,delayed 20 mg PO DAILY 11/11/21 06/23/22 release propranolol 10 mg tablet 10 mg PO BID PRN NEEDED 11/11/21 06/23/22 venlafaxine 150 mg 1 cap PO DAILY 01/23/22 06/23/22 capsule,extended release 24 hr fenofibrate 160 mg tablet 160 mg PO DAILY 05/23/22 06/23/22 metformin 500 mg tablet 250 mg PO BID 06/23/22 06/23/22 Previous Rx's Medication Instructions Recorded clonazepam 1 mg tablet 1 mg PO BID #0 tabs 11/22/21 nicotine 21 mg/24 hr daily 21 mg transdermal DAILY #30 ea 11/22/21 transdermal patch Allergies Allergy/AdvReac Type Severity Reaction Status Date / Time codeine [CODEINE] AdvReac Severe Nausea Verified 01/23/22 10:17 Review of Systems Review of Systems: Yes all other systems are reviewed and are negative PMFSH Past Medical History [facility] Narrative: Social history: Patient states that he does smoke tobacco but he is currently using a nicotine patch to stop smoking. He denies alcohol use. He states that he does use marijuana daily. He uses both edibles and smokes 2 to 3 times a day. Medical History Amputation finger Anxiety Chronic renal insufficiency Depression Diabetes GERD (gastroesophageal reflux disease) H/O ETOH abuse HTN (hypertension) Hyperlipidemia Osteomyelitis Panic attacks Smoker Surgical History H/O colonoscopy History of carpal tunnel release of both wrists Hx of foot surgery Family History Family History Other No family history of coronary artery disease Social History Social History Household Members: None Household Members Other:: Self Housing: Apartment Housing Other:: lives in basement of a home Do you presently have visiting nurse or other home services: No Alcohol intake: never Patient Tobacco Use Status: Former Tobacco user Quit Date: 2 weeks ago Tobacco use type: Cigarette Cigarette Packs Per Day: 0.5 Cigarettes Per Day: 10.0 Years Smoked: 28 Smoked in Last 30 Days: Yes Second Hand Smoke Exposure: No Use of substances other than those prescribed or required for medical reasons: Yes Substance Use Type: Marijuana Advance Directives: Yes Advance Directives on File: Yes Advance Directives Date on File: 06/24/22 service: Yes (Pt was in the [employer].) Current occupational status: disabled Sexual orientation: Straight/Heterosexual Physical Exam Vital Signs: Vital Signs: Last Vital Signs Temp 98.4 F 02/18/23 05:20 Pulse 76 02/18/23 08:10 Resp 10 L 02/18/23 08:10 BP 152/94 H 02/18/23 08:10 Pulse Ox 99 02/18/23 08:10 O2 Del Method Room Air 02/18/23 08:10 BMI result Body Mass Index 32.7 Const: Other: Awake, alert, male patient, appears to be anxious, he also is tearful. Answers all questions appropriately HEENT: Head: Yes normal to inspection, Yes normocephalic and Yes atraumatic Ears: external ears normal General nose exam: Normal external nose present Face and sinus: Yes normal facial exam Mouth: Normal oral and palatal mucosa present Throat: Yes posterior oropharynx normal Eyes: General: appearance normal, both eyes and all related structures Pupils: Equal, round and reactive pupils present Neck: Neck: Yes normal visual inspection, Yes no lymphadenopathy, Yes trachea midline and Yes supple Chest: Chest palpation & inspection: normal inspection of the chest and normal palpation of entire chest wall Resp: Effort & Inspection: normal respiratory effort and able to speak in complete sentences Auscultation: clear to auscultation bilaterally Cardio: Rate: regular rate Rhythm: regular rhythm Heart sounds: S1 normal heart sound present, S2 normal heart sound present and no murmurs GI: Inspection: Yes normal to inspection Palpation (GI): Soft to palpation, nontender and no guarding Auscultation: normal bowel sounds : General: Yes no CVA tenderness Back/Spine/Pelvis: Back: no CVA tenderness Skin: General skin exam: no rashes or lesions noted Neuro: Cranial nerves: Yes CN's II-XII intact bilaterally and Yes Equal, round and reactive pupils present Cognition (Neuro): normal cognition Motor exam (neuro): 5/5 motor strength present throughout Extrem: General: Yes normal to inspection Psych: Appearance: grossly normal Speech and movement: Normal speech and movement present Affect: normal affect Attitude: cooperative Thought process: Normal thought process present Thought content: Normal thought content present Medications Administered Discontinued Medications Generic Name Dose Route Start Last Admin Trade Name Freq PRN Reason Stop Dose Admin Sodium Chloride 1,000 mls @ 999 mls/hr 02/18/23 06:56 02/18/23 07:12 Ns IV 02/18/23 07:56 999 mls/hr .Q1H1M STA Administration Sodium Chloride 1,000 mls @ 999 mls/hr 02/18/23 06:57 02/18/23 07:12 Ns IV 02/18/23 07:57 999 mls/hr .Q1H1M STA Administration Ketorolac Tromethamine 15 mg 02/18/23 06:13 02/18/23 06:36 Ketorolac Tromethamine 15 Mg/Ml Vial IVPUSH 02/18/23 06:14 15 mg ONCE STA Administration Lorazepam 2 mg 02/18/23 06:13 02/18/23 06:36 Lorazepam 2 Mg/Ml Vial IVPUSH 02/18/23 06:14 2 mg ONCE ONE Administration Medical Decision Making Medical Decision Making [facility] Narrative: 62-year-old male who presents emergency department for evaluation panic attack, anxiety and depression. He has had symptoms for 3 days. He states he has had no appetite but he has been drinking fluid. He denies using cocaine or injection drugs but does smoke marijuana. He states that his mother 20 years ago and a mother's Day often triggers panic attacks, anxiety and depression. He is complaining of sternal chest pain which is been constant over the past 3 days. Patient's physical examination was unremarkable except for the patient appearing anxious, depressed and tearful. I did order laboratory evaluation to include CBC, CMP, troponin, 12 EKG. Patient will be treated with Toradol 15 mg IV and Ativan 2 mg IV. I also ordered a L of normal saline IV. 0816: My interpretation patient's laboratory evaluation is as follows: WBC elevated 21,500 H&H elevated 18.7 and 52.2. Sodium low 134. BUN and creatinine elevated 53 and 2.65-this is elevated above his baseline. CK elevated 2900. Troponin elevated but not detectable at 9.5.-repeat at 09:00 hours. I will obtain an ultrasound of his kidneys to rule out obstruction Twelve EKG [address] segment depression 2, AVF, V5 through V6 new compared to the most recent EKG but seen on previous EKGs. Patient has leukocytosis of unclear etiology. Urinalysis and urine drug screen is pending collection. Patient is feeling better after the above treatment. 0836: I did discuss admission over tiger text with the covering hospitalist. Differential Diagnosis Differential Diagnoses: The differential diagnosis associated with the presentation includes Differential diagnosis includes was not limited to panic attack, anxiety, angina, myocardial infarction, drug use disorder, electrolyte abnormality, anemia Admission/Observation Consideration of admission/observation: Escalation of care including admission/observation considered Consult Healthcare Provider Management of the patient was discussed with: Hospitalist Lab Data [facility] Lab Attestation statement: I reviewed the patient's lab results. Please see MDM 02/18/23 06:04 02/18/23 06:04 Labs: Lab Results 02/18/23 02/18/23 02/18/23 Range/Units 06:04 06:04 06:04 WBC 21.2 H (4.8-10.8) X10*3/uL RBC 5.96 H (4.60-5.80) X10*6/uL Hgb 18.7 H D (14.0-18.0) g/dl Hct 52.2 H (42.0-52.0) % MCV 87.6 (80.0-98.0) fL MCH 31.4 (27.0-33.0) pg MCHC 35.8 (31.0-36.0) g/dl RDW 13.2 (11.0-16.0) % Plt Count 268 (160-400) X10*3/uL MPV 10.5 (9.4-12.4) fL Absolute Nucleated RBC 0.000 (0.0-0.012) X10*3/uL Nucleated RBC % (auto) 0.0 (0.0-0.2) /100WBC Sodium 134 L (135-145) mmol/L Potassium 3.9 (3.3-5.1) mmol/L Chloride 96 (96-108) mmol/L Carbon Dioxide 23 (22-29) mmol/L Anion Gap 19 (12-20) BUN 53 H (9-16) mg/dL Creatinine 2.65 H (0.5-1.4) mg/dL Estim Creat Clear Calc 33.1 Estimated GFR 25 Random Glucose 123 H (60-115) mg/dL Calcium 9.3 D (8.4-10.2) mg/dL Total Bilirubin 1.1 H (0.0-1.0) mg/dL AST 73 H (5-37) U/L ALT 33 (0-40) U/L Alkaline Phosphatase 28 L (39-117) U/L Total Creatine Kinase 2900 H (38-174) U/L Troponin I High Sens 9.5 D (<3.5-35.0) ng/L Total Protein 7.9 (6.5-8.0) g/dL Albumin 4.9 (3.5-5.0) g/dL Independent Interpretation I performed an independent interpretation of an: EKG Interpretation: My independent interpretation the patient's 12 EKG is as follows: Normal sinus rhythm with a rate of 71, normal [place] interval, prolonged QRS duration of 108 milliseconds, prolonged QTC interval 434 milliseconds, less than [address] segment depression leads 3, AVF, V4 and V6, no significant T-wave abnormalities, RR prime V1 consistent with incomplete right bundle-branch block, no PACs, no PVCs. The ST segment depressions are new compared to EKG dated 12/22/2022 but were present on EKG dated 06/23/2022. Discharge Plan Discharge Clinical Impression: Anxiety attack, Chest pain, Acute kidney injury superimposed on chronic kidney disease, Leukocytosis Patient Disposition: Admitted As Inpatient Prescriptions: No Action venlafaxine 150 mg capsule,extended release 24hr 1 cap PO DAILY fenofibrate 160 mg Tablet 160 mg PO DAILY metformin 500 mg Tablet 250 mg PO BID atorvastatin 20 mg Tablet 20 mg PO DAILY propranolol 10 mg Tablet 10 mg PO BID PRN (Reason: NEEDED) omeprazole 20 mg Capsule,Delayed Release(Dr/Ec) 20 mg PO DAILY lisinopril 5 mg Tablet 5 mg PO DAILY aspirin 81 mg Tablet,Delayed Release (Dr/Ec) 81 mg PO DAILY clonazepam 1 mg Tablet 1 mg PO BID Qty: 0 0RF nicotine 21 mg/24 hr Patch 24 Hour 21 mg transdermal DAILY Qty: 30 0RF
[2023-02-18 06:21] LABS: Hematocrit 52.2 % (42.0-52.0); Hemoglobin 18.7 g/dl (14.0-18.0); Mean Corpuscular HGB Conc 35.8 g/dl (31.0-36.0); Mean Corpuscular Hemoglobin 31.4 pg (27.0-33.0); Mean Corpuscular Volume 87.6 fL (80.0-98.0); Mean Platelet Volume 10.5 fL (9.4-12.4); Platelet Count 268 X10*3/uL (160-400); Red Blood Count 5.96 X10*6/uL (4.60-5.80); Red Cell Distribution Width 13.2 % (11.0-16.0); White Blood Count 21.2 X10*3/uL (4.8-10.8)
[2023-02-18 06:24] LABS: Alanine Aminotransferase 33 U/L (0-40); Albumin Level 4.9 g/dL (3.5-5.0); Alkaline Phosphatase 28 U/L (39-117); Anion Gap 19 (12-20); Aspartate Amino Transferase 73 U/L (5-37); Bilirubin Total 1.1 mg/dL (0.0-1.0); Blood Urea Nitrogen 53 mg/dL (9-16); Calcium 9.3 mg/dL (8.4-10.2); Carbon Dioxide 23 mmol/L (22-29); Chloride 96 mmol/L (96-108); Creatinine Clr Calc Pharmacy 33.1; Estimated Glomerular Filt Rate 25; Glucose Random 123 mg/dL (60-115); Potassium 3.9 mmol/L (3.3-5.1); Sodium 134 mmol/L (135-145); Total Protein 7.9 g/dL (6.5-8.0)
[2023-02-18 06:31] LABS: Troponin-I High Sensitivity 9.5 ng/L (<3.5-35.0)
[2023-02-18] MEDS: LORazepam 2 MG/ML VIAL IVPUSH ×2 (06:36→09:24)
[2023-02-18] MEDS: Ketorolac Tromethamine 15 MG/ML VIAL IVPUSH (06:36)
--- NOTE | 2023-02-18 07:03 | PC.NURSE ---
Addendum entered by Desirae Moncada 02/18/23 07:07: Meds given as documented. Original Note: Pt A&Ox4, reports 05/14 midsterna CP. States it feels like pressure. Reports anxiety x 3 days and panic attacks. IV line started, blood work collected and sent to lab. EKG obtained and reviewed by provider, Pt placed on bedside monitor.
[2023-02-18] MEDS: 0.9 % Sodium Chloride 1,000 ML 999 ML IV ×2 (07:12)
--- NOTE | 2023-02-18 09:29 | PC.NURSE ---
Patient complaining of nausea. Provider made aware and patient medicated per MAR.
[2023-02-18 11:14] LABS: Appearance Urine Cloudy; Color Urine Yellow; Glucose Urine UA Negative (Negative); Leukocyte Esterase Urine Negative (Negative); Nitrite Urine Negative (Negative); PH 5.5 (5.0-9.0); Specific Gravity - Urine 1.025 (1.005-1.025); UMIC TRIGGER UACC YES; Urine Blood Large (3+) (Negative); Urine Ketones Trace mg/dL (Negative); Urine Protein 100 (2+) mg/dL (Neg-Trace)
[2023-02-18 11:19] LABS: Troponin-I High Sensitivity 8.4 ng/L (<3.5-35.0)
[2023-02-18 11:22] LABS: Amphetamine Screen Urine Not Detected (Not Detect); Barbiturates, Urine Not Detected (Not Detect); Benzodiazepines Screen Urine POSITIVE (Not Detect); Cannabinoid Screen Urine POSITIVE (Not Detect); Cocaine Screen Urine POSITIVE (Not Detect); Fentanyl, urine Not Detected (Not Detect); Opiate Screen Urine Not Detected (Not Detect); Phencyclidine Screen Urine Not Detected (Not Detect)
--- NOTE | 2023-02-18 11:23 | P.HPHOSP_ITS ---
History of Present Illness Date of Service: 02/18/23 Attending physician on admission: Prem Mosley Chief Complaint: Panic attack, chest pain/pressure Pt is a 62-year-old male with a PMH significant for?anxiety, panic attacks, CKD stage 3, liver disease unspecified, non-insulin dependent diabetes type 2, and GERD who presents to the ED after a panic attack with chest pain/pressure since Thursday. Pt states he has a 25-30 year history of panic attacks where he experiences feeling hot, cold, and sweaty with erratic breathing, dizziness, lethargy, insomnia, and nausea and vomiting with p.o. intake. Patient states these attacks can last for up to 2-3 weeks and are often of the triggered by certain days/events. Patient states this most recent panic attack was triggered by Mother's Day on Thursday. Pt notes his mother 20 years ago. Pt states he experienced all of the prior symptoms and has been spending most of the time in the shower ?regulating his temperature.? Pt reports also experiencing chest pain/pressure since Thursday which is a new symptom. Pain is centrally located, substernal, non radiating,the size of his hand, and is like a heavy, painful weight on his chest. Pt's father had CAD but denies own personal cardiac history, though he says he might have seen a spiral machine operator in the past. Pt also reports not being able to keep fluids or solids down since Thursday. Last vomited yesterday when attempted to drink fluids. In the ED patient was afebrile but hypertensive up to 169/93. Labs were significant for leukocytosis 21.2, H&H 18.7/52.2, BUN of 53 and creatinine 2.65 (elevated above baseline), AST of 73, creatinine kinase 2900. Troponins negative at 9.5 with repeat flat at 8.4. Electrolytes essentially WNL. UA negative for UTI. Ultrasound of kidneys negative. CXR pending. EKG demonstrated normal sinus rhythm with T-wave inversions in inferior and lateral leads. Pt was treated with IVF, ketorolac, and lorazepam. Pt will be admitted to the hospital for treatment and further evaluation RICARDO on CKD 3 and chest pain/pressure EKG changes with IVF and specialist consult. Review of Systems Review of Systems: Chest pain/pressure Nausea, vomiting, reduced p.o. intake Panic attack Yes all other systems are reviewed and are negative [facility] Medical History Amputation finger Anxiety Chronic renal insufficiency Depression Diabetes GERD (gastroesophageal reflux disease) H/O ETOH abuse HTN (hypertension) Hyperlipidemia Osteomyelitis Panic attacks Smoker Family History Other No family history of coronary artery disease Surgical History H/O colonoscopy History of carpal tunnel release of both wrists Hx of foot surgery Social History Household Members: None Household Members Other:: Self Housing: Apartment Housing Other:: lives in basement of a home Do you presently have visiting nurse or other home services: No Alcohol intake: never Patient Tobacco Use Status: Current everyday Tobacco user Tobacco use type: Cigarette Cigarette Packs Per Day: 0.5 Cigarettes Per Day: 10.0 Years Smoked: 28 Smoked in Last 30 Days: Yes Patient Interested in Nicotine Replacement: Yes Patient Given Instructions on How to Stop Smoking: No Second Hand Smoke Exposure: No Use of substances other than those prescribed or required for medical reasons: No Substance Use Type: Marijuana Substance Use Frequency: Occasionally Last Used Substance: Just Prior to Admission Currently Displaying Signs/Symptoms of Drug Intoxication Withdrawal: No Any prior treatment program specific to substance use: No Have you been hit, kicked, punched, or otherwise hurt by someone within the past year? If so, by whom?: No Do you feel safe in your current relationship?: Yes Is there a partner from a previous relationship who is making you feel unsafe now?: No Are you made to feel afraid or neglected: No Advance Directives: Yes Advance Directives on File: Yes Advance Directives Date on File: 06/24/22 Do you have thoughts of harming others: None Do you have a plan to hurt others: No Plan Recently lost weight without trying: Yes How much weight loss: Unsure Eating poorly because of decreased appetite: Yes Nutrition screen score: 5 Nutrition Risks: No Nutritional Risk Poor oral hygiene: No service: Yes (Pt was in the [employer].) Current occupational status: disabled Sexual orientation: Straight/Heterosexual Meds Allergies Allergy/AdvReac Type Severity Reaction Status Date / Time codeine [CODEINE] AdvReac Severe Nausea Verified 01/23/22 10:17 Home Medications Medication Instructions Recorded Confirmed Last Taken Type aspirin 81 mg tablet,delayed 81 mg PO DAILY 11/11/21 02/18/23 01/23/22 History release atorvastatin 20 mg tablet 20 mg PO BEDTIME 11/11/21 02/18/23 01/23/22 History lisinopril 5 mg tablet 5 mg PO DAILY 11/11/21 02/18/23 01/23/22 History omeprazole 20 mg capsule,delayed 20 mg PO DAILY 11/11/21 02/18/23 01/23/22 History release propranolol 10 mg tablet 10 mg PO BID PRN Anxiety 11/11/21 02/18/23 05/30/22 History venlafaxine 150 mg 1 cap PO DAILY 01/23/22 02/18/23 06/23/22 History capsule,extended release 24 hr 0900 fenofibrate 160 mg tablet 160 mg PO DAILY 05/23/22 02/18/23 06/23/22 History 0900 metformin 500 mg tablet 250 mg PO BID 06/23/22 02/18/23 Unknown History clonazepam 1 mg tablet 1 mg PO TID PRN Anxiety 02/18/23 02/18/23 Unknown History venlafaxine 37.5 mg 37.5 mg PO DAILY 02/18/23 02/18/23 Unknown History capsule,extended release 24 hr Physical Exam Vital Signs and Narrative: Vital Signs: Last Vital Signs Temp 98.4 F 02/18/23 05:20 Pulse 75 02/18/23 09:13 Resp 12 02/18/23 09:13 BP 156/92 H 02/18/23 09:13 Pulse Ox 96 02/18/23 09:13 O2 Del Method Room Air 02/18/23 09:13 BMI result Body Mass Index 32.7 Constitutional: Alert, anxious, emotionally labile, in no acute distress. Mental Status: Oriented to person, place and time. Eyes: Pupils are equal, round, and reactive to light. Ear, Nose, and Throat: Oropharynx clear, mucous membranes dry. Ears and nose without deformities. Trachea midline. Respiratory: Clear to auscultation bilaterally. No wheezing, rales, or rhonchi. Cardiovascular: S1, S2 regular. No murmurs, rubs, or gallops. Gastrointestinal: Abdomen soft, non-tender, non-distended. Normal bowel sounds. Neurologic: Cranial nerves II-XII are grossly intact bilaterally. No focal neurological deficits. Moves all extremities spontaneously. Skin: Warm, dry. Extremities: No edema. Psychiatric: Emotionally labile. Results Labs 02/18/23 06:04 02/18/23 06:04 Labs: Laboratory Results - last 24 hr 02/18/23 02/18/23 02/18/23 06:04 06:04 06:04 MCV 87.6 MCH 31.4 MCHC 35.8 RDW 13.2 Plt Count 268 MPV 10.5 Absolute Nucleated RBC 0.000 Nucleated RBC % (auto) 0.0 Anion Gap 19 Estim Creat Clear Calc 33.1 Estimated GFR 25 Random Glucose 123 H Calcium 9.3 D Total Bilirubin 1.1 H AST 73 H ALT 33 Alkaline Phosphatase 28 L Total Creatine Kinase 2900 H Troponin I High Sens 9.5 D Total Protein 7.9 Albumin 4.9 Urine Color Urine Appearance Urine pH Ur Specific [place] Urine Protein Urine Glucose (UA) Urine Ketones Urine Blood Urine Nitrite Ur Leukocyte Esterase Urine Opiates Screen Urine Fentanyl Screen Ur Barbiturates Screen Ur Phencyclidine Scrn Ur Amphetamines Screen U Benzodiazepines Scrn Urine Cocaine Screen U Marijuana (THC) Screen 02/18/23 02/18/23 02/18/23 10:46 11:03 11:03 MCV MCH MCHC RDW Plt Count MPV Absolute Nucleated RBC Nucleated RBC % (auto) Anion Gap Estim Creat Clear Calc Estimated GFR Random Glucose Calcium Total Bilirubin AST ALT Alkaline Phosphatase Total Creatine Kinase Troponin I High Sens 8.4 Total Protein Albumin Urine Color Yellow Urine Appearance Cloudy Urine pH 5.5 Ur Specific [place] 1.025 Urine Protein 100 (2+) H Urine Glucose (UA) Negative Urine Ketones Trace Urine Blood Large (3+) H Urine Nitrite Negative Ur Leukocyte Esterase Negative Urine Opiates Screen Not Detected Urine Fentanyl Screen Not Detected Ur Barbiturates Screen Not Detected Ur Phencyclidine Scrn Not Detected Ur Amphetamines Screen Not Detected U Benzodiazepines Scrn POSITIVE H Urine Cocaine Screen POSITIVE H U Marijuana (THC) Screen POSITIVE H Imaging Radiologist's Impressions: Impressions Renal Ultrasound 02/18/23 08:50 IMPRESSION: No ultrasound abnormality of the kidneys identified. Cholelithiasis.. Assessment and Plan (1) Anxiety attack: Status: Acute (2) Chest pain: Status: Acute (3) Acute kidney injury superimposed on chronic kidney disease: Status: Acute Plan Pt is a 62-year-old male with a PMH significant for?anxiety, panic attacks, CKD stage 3, liver disease unspecified, non-insulin dependent diabetes type 2, and GERD who presents to the ED after a panic attack with chest pain/pressure since Thursday. Pt will be admitted to the hospital for treatment and further evaluation RICARDO on CKD 3 and chest pain/pressure EKG changes with IVF and specialist c onsults. Chest pain/pressure with abnormal EKG Patient complaining of constant substernal nonradiating chest pain/pressure for past 3 days EKG showed normal sinus rhythm with T-wave inversions in inferior and lateral leads Troponins negative Continue statin, aspirin Echocardiogram Cardiology consult Monitor on telemetry Acute RICARDO superimposed on CKD stage III BUN of 53, creatinine 2.65, elevated from baseline UA proteinuria and large amount of blood Likely secondary from dehydration from vomiting and reduced p.o. intake Possibly also due to drug-induced ATN IVF Nephrology consult Rhabdomyolysis Creatinine kinase elevated at 2900 at time of presentation Possibly secondary to cocaine use IVF Monitor CK Leukocytosis WBC 21.2 at time of presentation Unclear etiology, patient with history of chronic leukocytosis Patient afebrile, denies cough, UA negative for UTI Check chest x-ray Anxiety/panic attacks Patient with a 25-30 year history of panic attacks Continue with laxative pain, clonazepam Psychiatry consult Cocaine use disorder Patient states has a history of cocaine abuse 20 years ago, denies any current use Tox screen positive for cocaine Addiction medicine consult Alcohol use Patient denies any heavy alcohol use, says last had some red wine a couple of weeks ago No tremors noted on examination; patient does not seem to be in acute alcohol withdrawal CIWA monitoring HTN Continue lisinopril Non insulin-dependent diabetes type 2 Hold metformin Sliding-scale insulin Diabetic diet Full Code Attending:? DVT Prophylaxis: Lovenox Pt will require a hospitalization of at least two nights for treatment of?RICARDO on CKD 3 and chest pain/pressure with IVF and specialist consults. Time Spent With Patient Time: Total time managing care of this patient today ____ minutes. Quality Stroke Does the patient have a stroke diagnosis?: No VTE Prior VTE?: No VTE Risk Level:: Medical - moderate - high VTE Device Contraindication: Treatment Not Indicated VTE Drug Contraindication: N/A - Med Ordered
[2023-02-18 11:24] LABS: Bacteria Urine None Seen (None Seen); WBC Urine 0-5 /HPF (0-5)
--- NOTE | 2023-02-18 11:29 | PC.NURSE ---
Patient resting on stretcher with eyes closed. Fluids completely infused at this time.
[2023-02-18] MEDS: Lactated Ringers 1,000 ML 100 ML IVCONT ×2 (13:24→22:43)
[2023-02-18] MEDS: Enoxaparin Sodium 40 MG/0.4 ML SYRINGE SUBCUT (13:28)
--- NOTE | 2023-02-18 13:44 | P.CONCA_ITS ---
History of Present Illness History of Present Illness Date of Service: 02/18/23 Requesting physician: Sharon Roland Chief complaint: panic attack, chest pain/pressure Narrative: [age] gentleman with background of multidrug abuse including cocaine presenting with chest discomfort. He has history of panic attacks. He is presenting with chest discomfort which is a pressure-like feeling on the left side of the chest. He is positive for cocaine along with opiates and benzodiazepines. He was given Ativan in the emergency department which improved his chest discomfort. He is currently pain-free. EKG has shown lateral T-wave inversions which are new compared to before. His troponins are negative at his CPK is a very high and he has rhabdomyolysis se condary to cocaine use. He is getting IV fluids for that. He did not have any muscle injury otherwise. He is denying any cardiovascular history in the past. He is denying any chest discomfort in the past 2. Blood pressure is elevated. [facility] Past Medical History Medical History Amputation finger Anxiety Chronic renal insufficiency Depression Diabetes GERD (gastroesophageal reflux disease) H/O ETOH abuse HTN (hypertension) Hyperlipidemia Osteomyelitis Panic attacks Smoker Family History Family History Other No family history of coronary artery disease Surgical History Surgical History H/O colonoscopy History of carpal tunnel release of both wrists Hx of foot surgery Social History Social History Household Members: None Household Members Other:: Self Housing: Apartment Housing Other:: lives in basement of a home Do you presently have visiting nurse or other home services: No Alcohol intake: never Patient Tobacco Use Status: Former Tobacco user Quit Date: 2 weeks ago Tobacco use type: Cigarette Cigarette Packs Per Day: 0.5 Cigarettes Per Day: 10.0 Years Smoked: 28 Smoked in Last 30 Days: Yes Second Hand Smoke Exposure: No Use of substances other than those prescribed or required for medical reasons: Yes Substance Use Type: Marijuana Advance Directives: Yes Advance Directives on File: Yes Advance Directives Date on File: 06/24/22 Nutrition Risks: No Nutritional Risk service: Yes (Pt was in the [employer].) Current occupational status: disabled Sexual orientation: Straight/Heterosexual Meds Allergies Allergy/AdvReac Type Severity Reaction Status Date / Time codeine [CODEINE] AdvReac Severe Nausea Verified 01/23/22 10:17 Active Medications: Current Medications Acetaminophen (Acetaminophen 325 Mg Tablet) 650 mg PO Q6H PRN PRN Reason: Pain, Mild (Pain Scale 1-3) Docusate Sodium (Docusate Sodium 100 Mg Capsule) 100 mg PO DAILY PRN PRN Reason: Constipation Enoxaparin Sodium (Enoxaparin Sodium 40 Mg/0.4 Ml Syringe) 40 mg SUBCUT Q24H [facility] Last Admin: 02/18/23 13:28 Dose: 40 mg Glucose (Glucose Gel 15 Gm Gel..Gram.) 15 gm PO Q15M PRN; Protocol PRN Reason: per Hypoglycemia Standing Ord. Lactated Ringer's (Lr) 1,000 mls @ 100 mls/hr IVCONT .Q10H [facility] Last Admin: 02/18/23 13:24 Dose: 100 mls/hr Dextrose (D10) 250 mls @ 750 mls/hr IV Q15M PRN; Protocol PRN Reason: per Hypoglycemia Standing Ord. Insulin Human Lispro (Insulin Lispro 100 Unit/Ml 3 Ml Vial) 0 unit SUBCUT QIDACHS [facility]; Protocol Ondansetron HCl (Ondansetron Hcl 4 Mg/2 Ml Vial) 4 mg IVPUSH Q8H PRN PRN Reason: Nausea and Vomiting Pharmacy Consult (Consult Rx Perform Med Rec) 1 each MISCELLANE ONCE PRN PRN Reason: Consult order Sodium Chloride (0.9 % Sodium Chloride Flush 3 Ml Syringe) [facility] Medications Medication Instructions Recorded Confirmed Last Taken Type aspirin 81 mg tablet,delayed 81 mg PO DAILY 11/11/21 02/18/23 01/23/22 History release atorvastatin 20 mg tablet 20 mg PO BEDTIME 11/11/21 02/18/23 01/23/22 History lisinopril 5 mg tablet 5 mg PO DAILY 11/11/21 02/18/23 01/23/22 History omeprazole 20 mg capsule,delayed 20 mg PO DAILY 11/11/21 02/18/23 01/23/22 History release propranolol 10 mg tablet 10 mg PO BID PRN Anxiety 11/11/21 02/18/23 05/30/22 History venlafaxine 150 mg 1 cap PO DAILY 01/23/22 02/18/23 06/23/22 History capsule,extended release 24 hr 0900 fenofibrate 160 mg tablet 160 mg PO DAILY 05/23/22 02/18/23 06/23/22 History 09 metformin 500 mg tablet 250 mg PO BID 06/23/22 02/18/23 Unknown History clonazepam 1 mg tablet 1 mg PO TID PRN Anxiety 02/18/23 02/18/23 Unknown History venlafaxine 37.5 mg 37.5 mg PO DAILY 02/18/23 02/18/23 Unknown History capsule,extended release 24 hr Physical Exam Vital Signs: Vital Signs: Last Vital Signs Temp 98.6 F 02/18/23 13:32 Pulse 82 02/18/23 13:32 Resp 16 02/18/23 13:32 BP 135/76 02/18/23 13:32 Pulse Ox 98 02/18/23 13:32 O2 Del Method Room Air 02/18/23 13:32 BMI result Body Mass Index 32.7 GENERAL APPEARANCE: in no acute distress, pleasant. NECK: no carotid bruit, no jugular venous distention. SKIN: no suspicious lesions, warm and dry. HEART: no murmurs, regular rate and rhythm. LUNGS: clear to auscultation bilaterally. ABDOMEN: soft, nontender. EXTREMITIES: no edema. PERIPHERAL PULSES: equal. NEUROLOGIC: No gross deficits, AAO X 3 Objective Labs and Meds 02/18/23 06:04 02/18/23 06:04 Lab results: Laboratory Results - last 24 hr 02/18/23 02/18/23 02/18/23 06:04 06:04 06:04 WBC 21.2 H RBC 5.96 H Hgb 18.7 H D Hct 52.2 H MCV 87.6 MCH 31.4 MCHC 35.8 RDW 13.2 Plt Count 268 MPV 10.5 Absolute Nucleated RBC 0.000 Nucleated RBC % (auto) 0.0 Sodium 134 L Potassium 3.9 Chloride 96 Carbon Dioxide 23 Anion Gap 19 BUN 53 H Creatinine 2.65 H Estim Creat Clear Calc 33.1 Estimated GFR 25 Random Glucose 123 H Calcium 9.3 D Total Bilirubin 1.1 H AST 73 H ALT 33 Alkaline Phosphatase 28 L Total Creatine Kinase 2900 H Troponin I High Sens 9.5 D Total Protein 7.9 Albumin 4.9 Urine Color Urine Appearance Urine pH Ur Specific [place] Urine Protein Urine Glucose (UA) Urine Ketones Urine Blood Urine Nitrite Ur Leukocyte Esterase Urine RBC Urine WBC Ur Squamous Epith Cells Urine Bacteria Hyaline Casts Urine Opiates Screen Urine Fentanyl Screen Ur Barbiturates Screen Ur Phencyclidine Scrn Ur Amphetamines Screen U Benzodiazepines Scrn Urine Cocaine Screen U Marijuana (THC) Screen 02/18/23 02/18/23 02/18/23 10:46 11:03 11:03 WBC RBC Hgb Hct MCV MCH MCHC RDW Plt Count MPV Absolute Nucleated RBC Nucleated RBC % (auto) Sodium Potassium Chloride Carbon Dioxide Anion Gap BUN Creatinine Estim Creat Clear Calc Estimated GFR Random Glucose Calcium Total Bilirubin AST ALT Alkaline Phosphatase Total Creatine Kinase Troponin I High Sens 8.4 Total Protein Albumin Urine Color Yellow Urine Appearance Cloudy Urine pH 5.5 Ur Specific [place] 1.025 Urine Protein 100 (2+) H Urine Glucose (UA) Negative Urine Ketones Trace Urine Blood Large (3+) H Urine Nitrite Negative Ur Leukocyte Esterase Negative Urine RBC 3-5 H Urine WBC 0-5 Ur Squamous Epith Cells 3-5 Urine Bacteria None Seen Hyaline Casts 6-10 Urine Opiates Screen Not Detected Urine Fentanyl Screen Not Detected Ur Barbiturates Screen Not Detected Ur Phencyclidine Scrn Not Detected Ur Amphetamines Screen Not Detected U Benzodiazepines Scrn POSITIVE H Urine Cocaine Screen POSITIVE H U Marijuana (THC) Screen POSITIVE H Imaging Radiologist's impression: Impressions Renal Ultrasound 02/18/23 08:50 IMPRESSION: No ultrasound abnormality of the kidneys identified. Cholelithiasis.. Assessment and Plan (1) Chest pain: Status: Acute Plan [age] gentleman with chest pain and nonspecific EKG changes in the setting of cocaine use. Blood pressure is elevated. His chest discomfort is improved after getting benzodiazepines. Please add amlodipine 5 mg once a day to his regimen for blood pressure control. Use benzodiazepines as needed. I have explained to the patient that his chest discomfort is related to cocaine use and for improvement he needs to changes habits. For rhabdomyolysis and acute kidney injury please hydrate as you are. Repeat an EKG in the evening. No further workup is required inpatient currently. Time Spent With Patient Time: Total time managing care of this patient today ____ minutes. Procedures Date of Service Date of Service: 02/18/23
--- NOTE | 2023-02-18 14:46 | PHA.MEDREC ---
Pharmacy Consult ? Medication Reconciliation Pharmacy has completed the medication reconciliation. vERIFIED LISINOPRIL AND METFORMIN WITH SAMIA WYNN
[2023-02-18 16:12] LABS: Glucose, Whole Blood 107 mg/dL (60-115)
--- NOTE | 2023-02-18 17:00 | ECG_ITS ---
Test Reason : routine Blood Pressure : / mmHG Vent. Rate : 082 BPM Atrial Rate : 082 BPM P-R Int : 154 ms QRS Dur : 098 ms QT Int : 380 ms P-R-T Axes : 053 006 012 degrees QTc Int : 443 ms Normal sinus rhythm Incomplete right bundle branch block Nonspecific T wave abnormality Abnormal ECG When compared with ECG of 18-FEB-2023 05:53, Nonspecific T wave abnormality has replaced inverted T waves in Anterior leads Referred By: Sharon Roland Electronically Signed By:Michael Starr
[2023-02-18 19:48] LABS: Glucose, Whole Blood 100 mg/dL (60-115)
[2023-02-18] MEDS: Propranolol HCL 10 MG TABLET PO (20:19)
[2023-02-18] MEDS: Atorvastatin Calcium 20 MG TABLET PO (20:19)
[2023-02-18] MEDS: clonazePAM 1 MG TABLET PO (20:20)
[2023-02-19 03:19] VITALS: BP 124/80; PULSE 66; RESP 20; TEMP 36.4; O2SAT 94
[2023-02-19] MEDS: Omeprazole 20 MG CAPSULE.DR PO (05:28)
[2023-02-19 07:16] VITALS: BP 180/110; PULSE 73; RESP 72; TEMP 37; O2SAT 96
[2023-02-19 07:29] LABS: Anion Gap 15 (12-20); Calcium 8.9 mg/dL (8.4-10.2); Carbon Dioxide 23 mmol/L (22-29); Chloride 107 mmol/L (96-108); Cholesterol 143 mg/dL; Glucose Random 96 mg/dL (60-115); HDL Cholesterol 24 mg/dL; LDL Cholesterol Calculated 66 mg/dl; Potassium 3.9 mmol/L (3.3-5.1); Sodium 141 mmol/L (135-145); Triglycerides 266 mg/dL
[2023-02-19 07:35] LABS: Glucose, Whole Blood 114 mg/dL (60-115)
[2023-02-19 07:48] LABS: Blood Urea Nitrogen 27 mg/dL (9-16); Creatinine Clr Calc Pharmacy 70.2; Estimated Glomerular Filt Rate 59
[2023-02-19] MEDS: Aspirin Enteric Coated 81 MG TABLET.DR PO (07:49)
[2023-02-19] MEDS: Lactated Ringers 1,000 ML 100 ML IVCONT (07:49)
[2023-02-19] MEDS: Fenofibrate 160 MG TABLET PO (07:49)
[2023-02-19] MEDS: Venlafaxine HCl ER 150 MG CAP.ER.24H PO (07:49)
[2023-02-19] MEDS: Acetaminophen 325 MG TABLET 650 MG PO (07:49)
[2023-02-19] MEDS: Propranolol HCL 10 MG TABLET PO ×2 (07:50→20:51)
[2023-02-19] MEDS: Venlafaxine HCl ER 37.5 MG CAP.ER.24H PO (07:50)
[2023-02-19] MEDS: clonazePAM 1 MG TABLET PO ×3 (07:50→20:51)
[2023-02-19] MEDS: Nicotine 21 MG PATCH.TD24 TRANSDERMA (07:50)
[2023-02-19] MEDS: amLODIPine Besylate 5 MG TABLET PO (07:51)
[2023-02-19] MEDS: ondansetron HCL 4 MG/2 ML VIAL IVPUSH (08:01)
--- NOTE | 2023-02-19 09:36 | PM.CNNEP ---
History of Present Illness Reason for Consult Consult date: 02/19/23 Reason for consult: RICARDO Chief Complaint Chief complaint: panic attack, chest pain/pressure History of Present Illness Narrative: ?62-year-old male withr?anxiety, panic attacks, CKD stage 3, liver disease unspecified, non-insulin dependent diabetes type 2, and GERD who presents to the ED after a panic attack with chest pain/pressure since Thursday. Pt states he has a 25-30 year history of panic attacks where he experiences feeling hot, cold, and sweaty with erratic breathing, dizziness, lethargy, insomnia, and nausea and vomiting with p.o. intake.? Patient states these attacks can last for up to 2-3 weeks and are often of the triggered by certain days/events.? Patient states this most recent panic attack was triggered by Mother's Day on Thursday. Pt notes his mother 20 years ago. Pt states he experienced all of the prior symptoms and has been spending most of the time in the shower ?regulating his temperature.? Pt reports also experiencing chest pain/pressure since Thursday which is a new symptom.? Pain is centrally located, substernal, non radiating,the size of his hand, and is like a heavy, painful weight on his chest. Pt's father had CAD but denies own personal cardiac history, though he says he might have seen a deicer repairer electric in the past. Pt also reports not being able to keep fluids or solids down since Thursday. Last vomited yesterday when attempted to drink fluids. At the time of admission he tested positive for marijuana and cocaine. Serum creatinine on admission was 2.65 which decreased to 1.25 with IV hydration. Baseline creatinine is 1.25. He has had episodes of RICARDO in the past. Urinalysis at the time of admission showed proteinuria and microscopic hematuria. Review of Systems Review of Systems Complains of anxiety. No headache. No nausea vomiting. No abdominal pain. No shortness of breath. No cough. No dysuria urgency or hematuria. No edema. No rash. [facility] Past Medical History Medical History Amputation finger Anxiety Chronic renal insufficiency Depression Diabetes GERD (gastroesophageal reflux disease) H/O ETOH abuse HTN (hypertension) Hyperlipidemia Osteomyelitis Panic attacks Smoker Family History Family History Other No family history of coronary artery disease Surgical History Surgical History H/O colonoscopy History of carpal tunnel release of both wrists Hx of foot surgery Social History Social History Household Members: None Household Members Other:: Self Housing: Apartment Housing Other:: lives in basement of a home Do you presently have visiting nurse or other home services: No Alcohol intake: never Patient Tobacco Use Status: Current everyday Tobacco user Tobacco use type: Cigarette Cigarette Packs Per Day: 0.5 Cigarettes Per Day: 10.0 Years Smoked: 28 Smoked in Last 30 Days: Yes Patient Interested in Nicotine Replacement: Yes Patient Given Instructions on How to Stop Smoking: No Second Hand Smoke Exposure: No Use of substances other than those prescribed or required for medical reasons: No Substance Use Type: Marijuana Substance Use Frequency: Occasionally Last Used Substance: Just Prior to Admission Currently Displaying Signs/Symptoms of Drug Intoxication Withdrawal: No Any prior treatment program specific to substance use: No Have you been hit, kicked, punched, or otherwise hurt by someone within the past year? If so, by whom?: No Do you feel safe in your current relationship?: Yes Is there a partner from a previous relationship who is making you feel unsafe now?: No Are you made to feel afraid or neglected: No Advance Directives: Yes Advance Directives on File: Yes Advance Directives Date on File: 06/24/22 Do you have thoughts of harming others: None Do you have a plan to hurt others: No Plan Recently lost weight without trying: Yes How much weight loss: Unsure Eating poorly because of decreased appetite: Yes Nutrition screen score: 5 Nutrition Risks: No Nutritional Risk Poor oral hygiene: No service: Yes (Pt was in the [employer].) Current occupational status: disabled Sexual orientation: Straight/Heterosexual Meds Allergies Allergy/AdvReac Type Severity Reaction Status Date / Time codeine [CODEINE] AdvReac Severe Nausea Verified 01/23/22 10:17 Active Medications: Current Medications Acetaminophen (Acetaminophen 325 Mg Tablet) 650 mg PO Q6H PRN PRN Reason: Pain, Mild (Pain Scale 1-3) Last Admin: 02/19/23 07:49 Dose: 650 mg Amlodipine Besylate (Amlodipine Besylate 5 Mg Tablet) 5 mg PO DAILY KIM; Protocol Last Admin: 02/19/23 07:51 Dose: 5 mg Aspirin (Aspirin Enteric Coated 81 Mg Tablet.) 81 mg PO DAILY [facility] Last Admin: 02/19/23 07:49 Dose: 81 mg Atorvastatin Calcium (Atorvastatin Calcium 20 Mg Tablet) 20 mg PO BEDTIME [facility] Last Admin: 02/18/23 20:19 Dose: 20 mg Clonazepam (Clonazepam 1 Mg Tablet) 1 mg PO TID PRN PRN Reason: Anxiety Last Admin: 02/19/23 07:50 Dose: 1 mg Docusate Sodium (Docusate Sodium 100 Mg Capsule) 100 mg PO DAILY PRN PRN Reason: Constipation Enoxaparin Sodium (Enoxaparin Sodium 40 Mg/0.4 Ml Syringe) 40 mg SUBCUT Q24H [facility] Last Admin: 02/18/23 13:28 Dose: 40 mg Fenofibrate (Fenofibrate 160 Mg Tablet) 160 mg PO DAILY [facility] Last Admin: 02/19/23 07:49 Dose: 160 mg Glucose (Glucose Gel 15 Gm Gel..Gram.) 15 gm PO Q15M PRN; Protocol PRN Reason: per Hypoglycemia Standing Ord. Dextrose (D10) 250 mls @ 750 mls/hr IV Q15M PRN; Protocol PRN Reason: per Hypoglycemia Standing Ord. Insulin Human Lispro (Insulin Lispro 100 Unit/Ml 3 Ml Vial) 0 unit SUBCUT QIDACHS [facility]; Protocol Last Admin: 02/19/23 07:28 Dose: Not Given Nicotine (Nicotine 21 Mg Patch.Td24) 21 mg TRANSDERMA DAILY [facility] Last Admin: 02/19/23 07:50 Dose: 21 mg Omeprazole (Omeprazole 20 Mg Capsule.) 20 mg PO DAILY@0630 [facility] Last Admin: 02/19/23 05:28 Dose: 20 mg Ondansetron HCl (Ondansetron Hcl 4 Mg/2 Ml Vial) 4 mg IVPUSH Q8H PRN PRN Reason: Nausea and Vomiting Last Admin: 02/19/23 08:01 Dose: 4 mg Pharmacy Consult (Consult Rx Perform Med Rec) 1 each MISCELLANE ONCE PRN PRN Reason: Consult order Propranolol HCl (Propranolol Hcl 10 Mg Tablet) 10 mg PO BID PRN; Protocol PRN Reason: Anxiety Last Admin: 02/19/23 07:50 Dose: 10 mg Sodium Chloride (0.9 % Sodium Chloride Flush 3 Ml Syringe) 3 ml IVFLUSH QSHIFT [facility] Last Admin: 02/19/23 07:49 Dose: Not Given Venlafaxine HCl (Venlafaxine Hcl Er 37.5 Mg Cap.Er.24h) 37.5 mg PO DAILY [facility] Last Admin: 02/19/23 07:50 Dose: 37.5 mg Venlafaxine HCl (Venlafaxine Hcl Er 150 Mg Cap.Er.24h) 150 mg PO DAILY [facility] Last Admin: 02/19/23 07:49 Dose: 150 mg Home Medications Medication Instructions Recorded Confirmed Last Taken Type aspirin 81 mg tablet,delayed 81 mg PO DAILY 11/11/21 02/18/23 01/23/22 History release atorvastatin 20 mg tablet 20 mg PO BEDTIME 11/11/21 02/18/23 01/23/22 History lisinopril 5 mg tablet 5 mg PO DAILY 11/11/21 02/18/23 01/23/22 History omeprazole 20 mg capsule,delayed 20 mg PO DAILY 11/11/21 02/18/23 01/23/22 History release propranolol 10 mg tablet 10 mg PO BID PRN Anxiety 11/11/21 02/18/23 05/30/22 History venlafaxine 150 mg 1 cap PO DAILY 01/23/22 02/18/23 06/23/22 History capsule,extended release 24 hr 0900 fenofibrate 160 mg tablet 160 mg PO DAILY 05/23/22 02/18/23 06/23/22 History 0900 metformin 500 mg tablet 250 mg PO BID 06/23/22 02/18/23 Unknown History clonazepam 1 mg tablet 1 mg PO TID PRN Anxiety 02/18/23 02/18/23 Unknown History venlafaxine 37.5 mg 37.5 mg PO DAILY 02/18/23 02/18/23 Unknown History capsule,extended release 24 hr Physical Exam Vital Signs: Last Vital Signs Temp 98.6 F 02/19/23 07:16 Pulse 73 02/19/23 07:16 Resp 72 H 02/19/23 07:16 BP 180/110 H 02/19/23 07:16 Pulse Ox 96 02/19/23 07:16 O2 Del Method Room Air 02/19/23 07:16 BMI result Body Mass Index 32.7 Comfortable Neck is supple Lung: Air entry equal Heart: S1,S2, normal. No rub Abd: Soft. BS + NS : Alert.No asterexis Ext: No edema Results Lab Results 02/18/23 06:04 02/19/23 06:22 Lab results: Chemistry 02/18/23 02/19/23 06:04 06:22 Sodium 134 L 141 Potassium 3.9 3.9 Carbon Dioxide 23 23 BUN 53 H 27 H Creatinine 2.65 H 1.25 Calcium 9.3 D 8.9 Hematology 02/18/23 06:04 WBC 21.2 H Hgb 18.7 H D Plt Count 268 Urinalysis 02/18/23 11:03 Urine Color Yellow Urine Appearance Cloudy Urine pH 5.5 Ur Specific [place] 1.025 Urine Protein 100 (2+) H Urine Glucose (UA) Negative Urine Ketones Trace Urine Blood Large (3+) H Urine Nitrite Negative Ur Leukocyte Esterase Negative Urine RBC 3-5 H Urine WBC 0-5 Ur Squamous Epith Cells 3-5 Hyaline Casts 6-10 Assessment and Plan (1) Acute kidney injury superimposed on chronic kidney disease: Status: Acute Plan AKA supposed on chronic kidney disease. The RICARDO is most likely due to hypoperfusion from volume depletion. With IV hydration renal function has returned to baseline. He has underlying CKD with a serum creatinine of 1. 25 Urine analysis did show some protein and blood by dipstick. We will need to rule out underlying glomerular nephritis especially due to the history Mild rhabdomyolysis on admission therefore he could have superimposed pigment nephropathy as well. No obstruction seen on ultrasonogram. Recommendations. Repeat urinalysis. Check urine for protein, creatinine. Check C3, C4, Anca, SPEP. Keep intake more than output. Agree with IV hydration. Avoid nephrotoxic agents. No indication for dialysis. She will follow along with the team. Time Spent With Patient Time: Total time managing care of this patient today ____ minutes. Procedures Date of Service Date of Service: 02/19/23
[2023-02-19 11:22] VITALS: BP 165/105; PULSE 66; RESP 20; TEMP 37.2; O2SAT 93
[2023-02-19 11:51] LABS: Glucose, Whole Blood 116 mg/dL (60-115)
--- NOTE | 2023-02-19 12:01 | MHC.RECOVRN ---
Briefly met with pt in 458 after consult placed to Addiction Medicine for UDS +cocaine. Chart reviewed and spoke with RN who reports pt endorses SI and now has a sitter and a psych consult ordered. Pt sitting on edge of bed, anxious, reports having felt better yesterday afternoon but feels worse this morning. Pt focused on mental health, requests to speak with t/w at a later time. Pt denies immediate questions or concerns regarding substance use. Will continue to follow.
[2023-02-19] MEDS: Enoxaparin Sodium 40 MG/0.4 ML SYRINGE SUBCUT (12:09)
--- NOTE | 2023-02-19 12:50 | MHC.CM.PN ---
This CM attempted to meet with pt, due to pt just falling asleep, will try again later.
--- NOTE | 2023-02-19 14:51 | HO.PM.IMPN ---
Subjective Subjective Date of Service: 02/20/23 Interval History: this morning patient is teary, feels his symptoms are coming back again that include mid anterior chest wall pain, blurred vision,lack of concentration, nausea ,unable to get comfortable, saying he wants to does not want to live like this anymore, noted to have elevated blood pressure and tachycardia, denies headache, no dizziness, no urinary symptoms of urgency frequency, no vomiting, no abdominal pain. Review of Systems Review of Systems: Yes all other systems are reviewed and are negative Physical Exam Vital Signs: Vital Signs: Last Vital Signs Temp 98.9 F 02/19/23 11:22 Pulse 66 02/19/23 11:22 Resp 20 02/19/23 11:22 BP 165/105 H 02/19/23 11:22 Pulse Ox 93 02/19/23 11:22 O2 Del Method Room Air 02/19/23 11:22 BMI result Body Mass Index 32.7 Const: Other: General awake alert, anxious ,in no acute distress. HEENT: PERRLA Neck supple no JVD. CVS regular rate rhythm, Respiratory lungs clear to auscultation, no respiratory distress, no wheeze, no rhonchi. Gastrointestinal abdomen soft, nontender, bowel sounds audible, no guarding , no rigidity. Extremities no edema. Neuro nonfocal , moving all 4 extremity ,speech clear. Skin no rash psychiatry emotionally labile Objective Data Active Medications Acetaminophen (Acetaminophen 325 Mg Tablet) 650 mg PO Q6H PRN PRN Reason: Pain, Mild (Pain Scale 1-3) Last Admin: 02/19/23 07:49 Dose: 650 mg Documented By: MIR Amlodipine Besylate (Amlodipine Besylate 5 Mg Tablet) 5 mg PO DAILY [facility]; Protocol Last Admin: 02/19/23 07:51 Dose: 5 mg Documented By: MIR Aspirin (Aspirin Enteric Coated 81 Mg Tablet.) 81 mg PO DAILY [facility] Last Admin: 02/19/23 07:49 Dose: 81 mg Documented By: MIR Atorvastatin Calcium (Atorvastatin Calcium 20 Mg Tablet) 20 mg PO BEDTIME [facility] Last Admin: 02/18/23 20:19 Dose: 20 mg Documented By: FABIANO Clonazepam (Clonazepam 1 Mg Tablet) 1 mg PO TID PRN PRN Reason: Anxiety Last Admin: 02/19/23 07:50 Dose: 1 mg Documented By: MIR Docusate Sodium (Docusate Sodium 100 Mg Capsule) 100 mg PO DAILY PRN PRN Reason: Constipation Enoxaparin Sodium (Enoxaparin Sodium 40 Mg/0.4 Ml Syringe) 40 mg SUBCUT Q24H [facility] Last Admin: 02/19/23 12:09 Dose: 40 mg Documented By: MIR Fenofibrate (Fenofibrate 160 Mg Tablet) 160 mg PO DAILY [facility] Last Admin: 02/19/23 07:49 Dose: 160 mg Documented By: MIR Glucose (Glucose Gel 15 Gm Gel..Gram.) 15 gm PO Q15M PRN; Protocol PRN Reason: per Hypoglycemia Standing Ord. Dextrose (D10) 250 mls @ 750 mls/hr IV Q15M PRN; Protocol PRN Reason: per Hypoglycemia Standing Ord. Insulin Human Lispro (Insulin Lispro 100 Unit/Ml 3 Ml Vial) 0 unit SUBCUT QIDACHS [facility]; Protocol Last Admin: 02/19/23 11:52 Dose: Not Given Documented By: MIR Non-Admin Reason: No Insulin Coverage Nicotine (Nicotine 21 Mg Patch.Td24) 21 mg TRANSDERMA DAILY [facility] Last Admin: 02/19/23 07:50 Dose: 21 mg Documented By: MIR Omeprazole (Omeprazole 20 Mg Capsule.) 20 mg PO DAILY@0630 [facility] Last Admin: 02/19/23 05:28 Dose: 20 mg Documented By: FABIANO Ondansetron HCl (Ondansetron Hcl 4 Mg/2 Ml Vial) 4 mg IVPUSH Q8H PRN PRN Reason: Nausea and Vomiting Last Admin: 02/19/23 08:01 Dose: 4 mg Documented By: MIR Pharmacy Consult (Consult Rx Perform Med Rec) 1 each MISCELLANE ONCE PRN PRN Reason: Consult order Propranolol HCl (Propranolol Hcl 10 Mg Tablet) 10 mg PO BID PRN; Protocol PRN Reason: Anxiety Last Admin: 02/19/23 07:50 Dose: 10 mg Documented By: MIR Sodium Chloride (0.9 % Sodium Chloride Flush 3 Ml Syringe) 3 ml IVFLUSH QSHIFT [facility] Last Admin: 02/19/23 07:49 Dose: Not Given Documented By: MIR Non-Admin Reason: IV Running Venlafaxine HCl (Venlafaxine Hcl Er 37.5 Mg Cap.Er.24h) 37.5 mg PO DAILY [facility] Last Admin: 02/19/23 07:50 Dose: 37.5 mg Documented By: MIR Venlafaxine HCl (Venlafaxine Hcl Er 150 Mg Cap.Er.24h) 150 mg PO DAILY [facility] Last Admin: 02/19/23 07:49 Dose: 150 mg Documented By: MIR Labs 02/18/23 06:04 02/19/23 06:22 Labs: Laboratory Results - last 24 hr 02/18/23 02/18/23 02/19/23 16:07 19:43 06:22 Anion Gap 15 Estim Creat Clear Calc 70.2 Estimated GFR 59 POC Glucose 107 100 Random Glucose 96 Calcium 8.9 Total Creatine Kinase 989 H Triglycerides 266 Cholesterol 143 LDL Cholesterol, Calc 66 HDL Cholesterol 24 02/19/23 02/19/23 07:21 11:20 Anion Gap Estim Creat Clear Calc Estimated GFR POC Glucose 114 116 H Random Glucose Calcium Total Creatine Kinase Triglycerides Cholesterol LDL Cholesterol, Calc HDL Cholesterol Assessment and Plan (1) Chest pain: Status: Acute (2) Acute kidney injury superimposed on chronic kidney disease: Status: Acute (3) Leukocytosis: Status: Acute Plan 62-year-old male with a PMH significant for?anxiety, panic attacks, CKD stage 3, liver disease unspecified, non-insulin dependent diabetes type 2, and GERD who presents to the ED after a panic attack with chest pain/pressure since Thursday. Pt will be admitted to the hospital for treatment and further evaluation RICARDO on CKD 3 and chest pain/pressure EKG changes with IVF and specialist consults. Chest pain/pressure with abnormal EKG had another episode of chest discomfort with anxiety today, repeat EKG unchanged, nonspecific ST changes Troponins negative, Continue statin, aspirin and added Norvasc seen by Cardiology chest pain likely secondary to cocaine use and anxiety symptoms improved with anxiolytics strongly recommend to abstain from cocaine use. Acute RICARDO superimposed on CKD stage III creatinine returned to baseline, with IV hydration since UA showed proteinuria and large amount of blood, Nephro consult obtained to rule out underlying glomerulonephritis, mild rhabdo on admission question causing pigment nephropathy, renal ultrasound showed no obstruction Nephro recommend urine for protein creatinine, C3-C4 Anca, SPEP will avoid nephrotoxins and hypotension Rhabdomyolysis Creatinine kinase elevated at 2900 at time of presentation, improved to 989 with IV fluids Possibly secondary to cocaine use Leukocytosis WBC 21.2 at admission Unclear etiology, patient with history of chronic leukocytosis, afebrile, denies cough, UA negative for UTI, chest x-ray benign follow CBC and clinical course likely reactive Anxiety/panic attacks/ suicidal ideation, placed sitter Patient with a 25-30 year history of panic attacks,Continue with clonazepam and venlafaxine,sitter Psychiatry consult Cocaine use disorder Patient states has a history of cocaine abuse 20 years ago, denies any current use, Tox screen positive for cocaine seen by Addiction Team, patient denied immediate questions or concerns regarding substance abuse. Alcohol use denies any heavy alcohol use, says last had some red wine a couple of weeks ago, no signs of withdrawal continue CIWA. HTN elevated blood pressure continue lisinopril and added Norvasc 5 mg daily Non insulin-dependent diabetes type 2 Hold metformin, stable blood sugars continue Sliding-scale insulin and Diabetic diet Full Code DVT Prophylaxis: Lovenox Pt will require continued inpatient treatment of? recurrent panic attack, chest pain and suicidal ideation. Time Spent With Patient Time: Total time managing care of this patient today ____ minutes. Quality Stroke Does the patient have a stroke diagnosis?: No VTE Prior VTE?: No VTE Risk Level:: Medical - moderate - high VTE Device Contraindication: Treatment Not Indicated VTE Drug Contraindication: N/A - Med Ordered
[2023-02-19 15:01] VITALS: BP 170/92; PULSE 66; RESP 20; TEMP 37.2; O2SAT 98
[2023-02-19 16:11] LABS: Glucose, Whole Blood 92 mg/dL (60-115)
[2023-02-19 16:19] LABS: Hemoglobin 17.1 g/dl (14.0-18.0); Mean Corpuscular HGB Conc 35.6 g/dl (31.0-36.0); Mean Corpuscular Hemoglobin 31.7 pg (27.0-33.0); Mean Corpuscular Volume 88.9 fL (80.0-98.0); Mean Platelet Volume 10.7 fL (9.4-12.4); Platelet Count 228 X10*3/uL (160-400); Red Cell Distribution Width 12.7 % (11.0-16.0)
--- NOTE | 2023-02-19 16:27 | MHC.CM.PN ---
Pt admitted with panic attack/chest pain. Pt from home, he lived alone was independent/self-care, is [facility] with [facility] services, and goes to [facility] for psychiatry. HCP on file and verified. Pt will use [employer] for transportation since his car is in the shop. Pt became very tearful during assessment and has no hope for his future, he states he has wasted 5 years in and out of the hospital and he doesn't think he'll get better. D/C plan pending psych/care team evaluations and plans. PCP: Daron Oconnell [facility]) Covid vax: x 3 pfizer
[2023-02-19] MEDS: lisinopriL 5 MG TABLET PO (16:35)
[2023-02-19] MEDS: 0.9 % Sodium Chloride Flush 3 ML SYRINGE IVFLUSH (16:36)
--- NOTE | 2023-02-19 16:48 | P.EN_ITS ---
Event Note Date of Service: 02/19/23 Event Note: Addiction consult placed for patient with +UDS Seen by asset recovery specialist Please see note dated 02/19/23 Time Spent With Patient Time: Total time managing care of this patient today ____ minutes.
[2023-02-19 17:32] LABS: Creatinine Urine 51.81 mg/dL; Total Protein Urine Random < 7 mg/dL (<12)
[2023-02-19 19:25] VITALS: BP 137/77; PULSE 91; RESP 20; TEMP 37.2; O2SAT 96
--- NOTE | 2023-02-19 20:04 | PM.EVENT ---
Event Note Date of Service: 02/19/23 Event Note: pt evaluated by Care Team I just evaluated Quintin in [id number]. Quintin is feeling much better, denies current SI, he has many supports at home through the [facility] and will follow up with them when discharged. Pt has no suicide hx he reports he was just having a hard day. We will follow up with him tomorrow and call him, but at this time he is psychiatrically cleared and at low risk to self harm Time Spent With Patient Time: Total time managing care of this patient today ____ minutes.
[2023-02-19 20:34] LABS: Glucose, Whole Blood 92 mg/dL (60-115)
[2023-02-19] MEDS: Atorvastatin Calcium 20 MG TABLET PO (20:51)
[2023-02-19 23:32] VITALS: BP 134/77; PULSE 63; RESP 20; TEMP 36.8; O2SAT 94
[2023-02-20] VITALS (8 sets, daily range): BP systolic 129–189; BP diastolic 84–105; PULSE 66–79; RESP 17–20; TEMP 36.3–37.1; O2SAT 92–97
[2023-02-20] MEDS: Omeprazole 20 MG CAPSULE.DR PO (05:12)
[2023-02-20 07:58] LABS: Glucose, Whole Blood 188 mg/dL (60-115)
[2023-02-20] MEDS: Nicotine 21 MG PATCH.TD24 TRANSDERMA (08:01)
[2023-02-20] MEDS: amLODIPine Besylate 5 MG TABLET PO (08:02)
[2023-02-20] MEDS: clonazePAM 1 MG TABLET PO ×2 (08:02→15:25)
[2023-02-20] MEDS: Venlafaxine HCl ER 37.5 MG CAP.ER.24H PO (08:02)
[2023-02-20] MEDS: Aspirin Enteric Coated 81 MG TABLET.DR PO (08:02)
[2023-02-20] MEDS: lisinopriL 5 MG TABLET PO (08:03)
[2023-02-20] MEDS: Fenofibrate 160 MG TABLET PO (08:03)
[2023-02-20] MEDS: Insulin Lispro 100 UNIT/ML 3 ML VIAL SUBCUT (08:03)
[2023-02-20] MEDS: Venlafaxine HCl ER 150 MG CAP.ER.24H PO (08:03)
[2023-02-20] MEDS: ondansetron HCL 4 MG/2 ML VIAL IVPUSH (08:13)
[2023-02-20] MEDS: 0.9 % Sodium Chloride Flush 3 ML SYRINGE IVFLUSH ×2 (08:13→20:41)
--- NOTE | 2023-02-20 08:18 | PC.NURSE ---
Assumed care at 7 am. Patient has BP reported to be 188/105 by jeremiah, recheck by RN 168/98. Patient endorses anxiety, nausea, and poor appetite, feels a sensation of pressure coming up his chest into his throat. Vomited this morning unwitnessed, small brownish clumps with pink tinge. MD notified. Medicated for nausea with zofran per emar, and anxiety with klonapin per emar. Instructed in nonpharmacological anxiety relief technique with good teachback.
[2023-02-20] MEDS: lisinopriL 10 MG TABLET PO (09:32)
[2023-02-20] MEDS: Propranolol HCL 10 MG TABLET PO ×2 (09:32→21:02)
--- NOTE | 2023-02-20 10:05 | MHC.RECOVRN ---
Met with pt in 458 to follow up regarding substance use. Pt denies substance use, reports having been in the room with people who were using cocaine, INH, however, pt denies use. Pt reports cocaine use over 20 years ago. Pt educated regarding supports available if needed, pt declines support at this time. Denies other questions or concerns. Yun Luna APRN, aware.
[2023-02-20] MEDS: Acetaminophen 325 MG TABLET 650 MG PO (10:58)
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
[2023-02-20] MEDS: OLANZapine 5 MG TABLET PO (11:51)
[2023-02-20 12:17] LABS: Glucose, Whole Blood 111 mg/dL (60-115)
--- NOTE | 2023-02-20 12:43 | MHC.CARE ---
Patient seen for Mental Status Exam at request of [employer]OR [employer]IC who saw patient earlier, patient expressing hopelessness, worthlessness and significant depression. He is voluntary for inpatient psychiatric admission and would prefer to be admitted to [facility] rather than a [facility] facility.
[2023-02-20] MEDS: Enoxaparin Sodium 40 MG/0.4 ML SYRINGE SUBCUT (14:42)
--- NOTE | 2023-02-20 15:17 | PM.DS ---
DS: Providers Provider Date of Service: 02/20/23 Date of admission: 02/18/23 12:26 Primary care physician: EDWIGE Guo Consults: 02/18/23 11:34 Consult to Cardiology Stat Consulting Provider: Michael Starr Reason for consultation: Chest pain/st depressions 02/18/23 12:19 Addiction Medicine Routine Consulting Provider: Addiction Covering Reason for consultation: Tox screen positive for cocaine Consult to Nephrology Routine Consulting Provider: Sreekanth Will Reason for consultation: RICARDO on CKD 3 02/19/23 11:12 Consult to Psychiatry Routine Consulting Provider: Psych Covering Reason for consultation: Pt now endorsing SI, has been asigned a sitter 02/19/23 12:02 Consult to Care Team Routine Comment: Reason for consultation: depression do not want to live DS: Diagnosis Discharge Diagnosis (1) Chest pain: Status: Acute (2) Acute kidney injury superimposed on chronic kidney disease: Status: Acute (3) Leukocytosis: Status: Acute DS: Summary Hospital Course Hospital Course: history of presenting illness: Date of Service: 02/18/23 Attending physician on admission: Prem Mosley Chief Complaint: Panic attack, chest pain/pressure Pt is a 62-year-old male with a PMH significant for?anxiety, panic attacks, CKD stage 3, liver disease unspecified, non-insulin dependent diabetes type 2, and GERD who presents to the ED after a panic attack with chest pain/pressure since Thursday. Pt states he has a 25-30 year history of panic attacks where he experiences feeling hot, cold, and sweaty with erratic breathing, dizziness, lethargy, insomnia, and nausea and vomiting with p.o. intake.? Patient states these attacks can last for up to 2-3 weeks and are often of the triggered by certain days/events.? Patient states this most recent panic attack was triggered by Mother's Day on Thursday. Pt notes his mother 20 years ago. Pt states he experienced all of the prior symptoms and has been spending most of the time in the shower ?regulating his temperature.? Pt reports also experiencing chest pain/pressure since Thursday which is a new symptom.? Pain is centrally located, substernal, non radiating,the size of his hand, and is like a heavy, painful weight on his chest. Pt's father had CAD but denies own personal cardiac history, though he says he might have seen a horticulture teacher in the past. Pt also reports not being able to keep fluids or solids down since Thursday. Last vomited yesterday when attempted to drink fluids. In the ED patient was afebrile but hypertensive up to 169/93. Labs were significant for leukocytosis 21.2, H&H 18.7/52.2, BUN of 53 and creatinine 2.65 (elevated above baseline), AST of 73, creatinine kinase 2900.? Troponins negative at 9.5 with repeat flat at 8.4.? Electrolytes essentially WNL.? UA negative for UTI.? Ultrasound of kidneys negative. CXR pending. EKG demonstrated?normal sinus rhythm with T-wave inversions in inferior and lateral leads.?Pt was treated with IVF, ketorolac, and lorazepam. Pt will be admitted to the hospital for treatment and further evaluation RICARDO on CKD 3 and chest pain/pressure EKG changes with IVF and specialist consult. 62-year-old male with a PMH significant for?anxiety, panic attacks, CKD stage 3, liver disease unspecified, non-insulin dependent diabetes type 2, and GERD who presents to the ED after a panic attack with chest pain/pressure since Thursday. Pt will be admitted to the hospital for treatment and further evaluation RICARDO on CKD 3 and chest pain/pressure EKG changes with IVF and specialist consults. Chest pain/pressure with abnormal EKG likely due to anxiety and cocaine use, troponin negative seen by Cardiology recommend to continue statin aspirin, Norvasc added patient has been strongly advised to abstain from cocaine although patient denied use of cocaine. Acute RICARDO superimposed on CKD stage III stay,creatinine returned to baseline, with IV hydration, renal ultrasound negative, for obstruction, likely pre renal due to UA positive for proteinuria and large amount of blood, Nephro consult obtained to rule out underlying glomerulonephritis, further workup sent including urine for protein, creatinine, C3-C4 Anca, SPEP , recommend outpatient follow-up with Nephrology, avoid nephrotoxins and hypotension Rhabdomyolysis Creatinine kinase elevated at 2900 at time of presentation, improved to 989 with IV fluids,Possibly secondary to cocaine use, no further IV fluid needed Leukocytosis WBC 21.2 at? admission,Unclear etiology, patient with history of chronic leukocytosis, afebrile, denies cough, UA negative for UTI, chest x-ray benign, repeat CB she showed improvement in WBC now 13,000 Anxiety/panic attacks/ no suicidal ideation evaluated by Psychiatry patient started on Zyprexa scheduled and as needed continue home medication clonazepam and venlafaxine patient is now being discharged to for continued monitoring and treatment Cocaine use disorder Patient states has a history of cocaine abuse 20 years ago, denies any current use, Tox screen positive for cocaine,seen by Addiction Team, patient denied immediate questions or concerns regarding substance abuse. Alcohol use denies any heavy alcohol use, says last had some red wine a couple of weeks ago, unreliable historian keep changing story, CIWA score 6 continue as needed Klonopin. HTN ?elevated blood pressure continue lisinopril 10 mg and Norvasc 5 mg daily, elevated blood pressure likely due to alcohol withdrawal and anxiety , continue to monitor. Non insulin-dependent diabetes type 2 continue metformin, stable blood sugars continue Sliding-scale insulin and Diabetic diet. Time Spent with Patient Time attestation: Total time managing care of this patient today ____ minutes. Discharge coordination time: Greater than 30 minutes Quality: Safe Use of Opioids Does Pt have an Active Cancer Diagnosis on the Problem List?: No Quality: Stroke Does the patient have a stroke diagnosis?: No Physical Exam Vital Signs: Vital Signs: Last Vital Signs Temp 98.7 F 02/20/23 15:03 Pulse 73 02/20/23 15:03 Resp 17 02/20/23 15:03 BP 189/100 H 02/20/23 15:03 Pulse Ox 93 02/20/23 15:03 O2 Del Method Room Air 02/20/23 15:03 BMI result Body Mass Index 32.7 Const: Other: General? awake alert, anxious ,in no acute distress.? HEENT: PERRLA Neck supple no JVD. CVS? regular rate rhythm, Respiratory lungs clear to auscultation, no respiratory distress, no wheeze, no rhonchi. Gastrointestinal abdomen soft, nontender, bowel sounds audible, no guarding , no rigidity. Extremities no edema. Neuro nonfocal ,? moving all 4 extremity ,speech clear. Skin no rash psychiatry emotionally labile DS: Data Data Completed and Pending Completed studies during hospitalization [Text1]: Procedures Insertion of Infusion Device into Superior Vena Cava, Percutaneous Approach (01/23/22) Ultrasonography of Superior Vena Cava, Guidance (01/23/22) Labs on day of discharge: Laboratory Results - last 24 hr 02/19/23 02/19/23 02/19/23 15:58 16:07 16:10 WBC 13.0 H RBC 5.40 Hgb 17.1 Hct 48.0 MCV 88.9 MCH 31.7 MCHC 35.6 RDW 12.7 Plt Count 228 MPV 10.7 Absolute Nucleated RBC 0.000 Nucleated RBC % (auto) 0.0 POC Glucose 92 U Random Total Protein < 7 Urine Creatinine 51.81 02/19/23 02/20/23 02/20/23 20:29 07:27 11:23 WBC RBC Hgb Hct MCV MCH MCHC RDW Plt Count MPV Absolute Nucleated RBC Nucleated RBC % (auto) POC Glucose 92 188 H 111 U Random Total Protein Urine Creatinine Discharge Plan Discharge Anticipated Discharge Date/Time: 02/20/23 14:48 Patient Disposition: Xfer Psychiatric Hosp Discharge Diagnosis: acute kidney injury superimposed on chronic kidney disease stage 3 leukocytosis chest pain anxiety/panic attacks cocaine use disorder Referrals: Daron Oconnell PA [Primary Care Provider] - 1 Week Discharge Medications: New acetaminophen 325 mg Tablet 650 mg PO Q6H PRN (Reason: Pain, Mild (Pain Scale 1-3)) Qty: 30 0RF amlodipine 5 mg Tablet 5 mg PO DAILY Qty: 30 0RF Protocol: Hold for SBP< HOLD for SBP < : 90 olanzapine 2.5 mg Tablet 2.5 mg PO BID Qty: 1 0RF lisinopril 10 mg Tablet 10 mg PO DAILY Qty: 30 0RF Protocol: Hold for SBP< HOLD for SBP < : 90 insulin lispro [Humalog U-100 Insulin] 100 unit/mL Solution See Protocol subcut QIDACHS Qty: 1 0RF Protocol: Insulin Correction Scale Less than or equal to 110 ---- Give (units): 0 111 to 150 Give (units): 0 151 to 200 Give (units): 2 201 to 250 Give (units): 4 251 to 300 Give (units): 6 301 to 350 Give (units): 8 Greater than 350 Give (units): 10 Call MD if Blood Glucose > : 350 olanzapine 5 mg Tablet 5 mg PO Q4H PRN (Reason: grounding assistance) Qty: 5 0RF Continued venlafaxine 150 mg capsule,extended release 24hr 1 cap PO DAILY fenofibrate 160 mg Tablet 160 mg PO DAILY metformin 500 mg Tablet 250 mg PO BID atorvastatin 20 mg Tablet 20 mg PO BEDTIME propranolol 10 mg Tablet 10 mg PO BID PRN (Reason: Anxiety) omeprazole 20 mg Capsule,Delayed Release(Dr/Ec) 20 mg PO DAILY aspirin 81 mg Tablet,Delayed Release (Dr/Ec) 81 mg PO DAILY nicotine 21 mg/24 hr Patch 24 Hour 21 mg transdermal DAILY Qty: 30 0RF venlafaxine 37.5 mg capsule,extended release 24hr 37.5 mg PO DAILY clonazepam 1 mg tablet 1 mg PO TID PRN (Reason: Anxiety) Discontinued lisinopril 5 mg Tablet 5 mg PO DAILY Discharge Orders: Discharge Order (Routine); Ordered 02/20/23 Ordered By: Prem Mosley Diet: Diabetic diet Activity on Discharge: As tolerated Stand Alone Forms: Patient Portal Discharge page Care Plan Goals: continue all medications as prescribed outpatient follow-up with primary care physician and Psychiatry Health Concerns: diabetes mellitus/ leukocytosis Plan of Treatment: transferred to Assessment: as above
[2023-02-20 15:28] LABS: Glucose, Whole Blood 104 mg/dL (60-115)
--- NOTE | 2023-02-20 16:03 | MHC.CM.PN ---
EMR reviewed and per MD rounds, pt awaiting psych consult and then psych bed transfer. CM will continue to follow.
[2023-02-20 16:35] LABS: COVID-19 Test Negative (Negative); IDNOW Serial# 16C4AD1C
[2023-02-20 19:27] LABS: Glucose, Whole Blood 102 mg/dL (60-115)
[2023-02-20] MEDS: OLANZapine 2.5 MG TABLET PO (20:41)
[2023-02-20] MEDS: Atorvastatin Calcium 20 MG TABLET PO (20:46)
--- NOTE | 2023-02-21 00:16 | PC.NURSE ---
Assumed care at 07:00. Patient alert and oriented and struggles with anxiety. PRN klonapin and propanolol per emar. Patient with high blood pressures with systolic in 170's-180's and diastolic in 90-105 ranges. MD aware, added lisinopril and PRN clonapin given per MD with modest effect on BP. Patient started zyprexa with good effect, more lucid this evening, calm and cooperative
[2023-02-21] MEDS: clonazePAM 1 MG TABLET PO (00:28)
[2023-02-21] MEDS: OLANZapine 5 MG TABLET PO (00:30)
[2023-02-23 21:28] LABS: Myeloperoxidase Antibody <1.0 AI; Proteinase 3 PR3 Antibodies <1.0 AI
[2023-02-24 05:34] LABS: Complement C3 157 mg/dL (82-185)
[2023-02-25 00:38] LABS: Prot Elec - Albumin 3.9 g/dL (3.8-4.8); Prot Elec - Alpha1 0.3 g/dL (0.2-0.3); Prot Elec - Alpha2 0.8 g/dL (0.5-0.9); Prot Elec - Beta 1 0.6 g/dL (0.4-0.6); Prot Elec - Beta 2 0.4 g/dL (0.2-0.5); Prot Elec - Gamma 0.8 g/dL (0.8-1.7); Prot Elec - Total Protein 6.8 g/dL (6.1-8.1)
== END 2023-02-21 00:35 | DRG 918 ==
LOC: HO.ED 08:34 → HO.EDOVER 12:35 → HO.IMC 13:39
PROVIDERS: Admitting Provider Student in an Organized Health Care Education/Training Program; Emergency Provider Emergency Medicine Emergency Medical Services; PCP Physician Assistant Medical; Visit Provider Hospitalist
DX: T40.5X4A Poisoning by cocaine, undetermined, initial encounter (principal); N17.9 Acute kidney failure, unspecified; M62.82 Rhabdomyolysis; R45.851 Suicidal ideations; I12.9 Hypertensive chronic kidney disease with stage 1 through stage 4 chronic kidney disease, or unspecified chronic kidney disease; E78.5 Hyperlipidemia, unspecified; N18.30 Chronic kidney disease, stage 3 unspecified; F14.10 Cocaine abuse, uncomplicated; E11.22 Type 2 diabetes mellitus with diabetic chronic kidney disease; Z20.822 Contact with and (suspected) exposure to COVID-19; Z88.0 Allergy status to penicillin; Z79.82 Long term (current) use of aspirin; Z79.84 Long term (current) use of oral hypoglycemic drugs; Z79.899 Other long term (current) drug therapy
CPT/HCPCS: 36415; 71045; 76775; 80048; 80053; 80061; 80307; 81001; 82550; 82947; 84156; 84165; 84484; 85027; 86021; 86160; 87635; 93005; 99285; J1650; J1885; J2060; J2405; S9485

== ENCOUNTER 2023-02-21 01:19 | Inpatient (IN) | payer OTHER, MEDICARE, SELFPAY ==
--- OUTSIDE RECORDS SUMMARY | 2023-02-21 01:22 | XMS_ITS | Continuity of Care Document ---
Author Name Unknown Organization [facility] Address [address] [place] [id number]- Care Team Providers Care Wood Turner Name Role Phone Kourtney GIBBONS, Daron Cruz Primary Care Physician Encounter [place] Date(s): 10/06/19 - 10/06/[address] [address]- [facility] Encounter Diagnosis Psychiatric problem(Final) - 10/06/19 Discharge Disposition: A-D/C Home Attending Physician: Maryanne Lockwood MD Admitting Physician: Maryanne Lockwood MD Referring Physician: Not on Staff, Referring MD Allergies, Adverse Reactions, Alerts Substance Reaction Severity Status NKA Active Vital Signs Most recent to oldest [Reference Range]: 1 2 3 Oxygen Saturation [94-100 %] 100 % (10/06/19 4:32 PM) 100 % (10/06/19 12:13 PM) Pulse Rate [55-90 bpm] 66 bpm (10/06/19 4:32 PM) 68 bpm (10/06/19 12:13 PM) Blood Pressure [90-138/55-84 mm Hg] 128/92mm Hg (10/06/19 4:32 PM) 132/104mm Hg (10/06/19 12:13 PM) 133/103mm Hg (10/06/19 12:13 PM) Respiratory Rate [16-30 br/min] 18 br/min (10/06/19 4:32 PM) 20 br/min (10/06/19 12:13 PM) Temperature [96.8-100.4 DegF] 98.1 DegF (10/06/19 12:13 PM) Mode of Delivery (Oxygen) Room air (10/06/19 4:32 PM) Room air (10/06/19 12:13 PM) Blood pressure sites Arm, right (10/06/19 4:32 PM) Arm, left (10/06/19 12:13 PM) Arm, right (10/06/19 12:13 PM) Temperature Route Oral (10/06/19 12:13 PM)
--- OUTSIDE RECORDS SUMMARY | 2023-02-21 01:22 | XMS_ITS ---
Author Name Victor M Singer Address [address] [place] [address] Organization [facility] Address [address] [place] [address] Care Team Providers Care Endoscopy Technican Name Role Phone Victor M Singer Unavailable [phone] PROBLEMS Type Condition ICD9-CM Code WAJ05-RA Code Onset Dates Condition Status SNOMED Code Problem Esophageal reflux K21.9 Active Problem Diverticulosis of colon K57.30 Active 211631536 Problem Encounter for screening for malignant neoplasm of colon Z12.11 Active 052240910 Problem GERD (gastroesophageal reflux disease) K21.9 Active [id number] ALLERGIES No Known Allergies ENCOUNTERS Encounter Location Date Diagnosis [facility] Outpatient [address] [place] [phone] May, Colon cancer screening Z12.11 ; Colon polyps K63.5 ; Diverticulosis of colon K57.30 ; Internal hemorrhoids K64.8 ; Hiatal hernia K44.9 ; Esophageal reflux K21.9 and Other specified disease of esophagus K22.89 [facility] [address] [place] [phone] Apr, [facility] [address] [place] [phone] Apr, GERD (gastroesophageal reflux disease) K21.9 and Encounter for screening for malignant neoplasm of colon Z12.11 [facility] [address] [place] [phone] May, [facility] [address] [place] [address] Apr, [facility] [place] Outpatient [address] [place] [phone] Jan, [facility] [address] [place] [phone] Jan, [facility] [address] [place] [phone] Jan, Special screening for malignant neoplasms, colon V76.51 IMMUNIZATIONS Vaccine Route Administration Date Status Influenza Unknown Aug 27, 2021 Administered SOCIAL HISTORY Qualifiers Date Never Smoker REASON FOR REFERRAL FUNCTIONAL STATUS PLAN OF CARE Activity Details VITAL SIGNS Weight 205 lbs 2022-04-30 Weight 193 lbs 2012-01-20 Height 69 in 2022-04-30 Height 69 in 2012-01-20 BMI 30.27 kg/m2 2022-04-30 BMI 28.50 kg/m2 2012-01-20 Heart Rate 72 /min 2012-01-20 Temperature 96.0 degrees Fahrenheit Blood pressure systolic 000 mm Hg Blood pressure diastolic 00 mm Hg 2022-04 MEDICATIONS Medication Instructions Dosage Frequency Start Date End Date Duration Status Lisinopril 5 MG Orally Once a day 1 tablet 24h 30 day(s) Active MiraLax (colon prep) 17 GM/SCOOP Orally begin at 5:00 p.m. the day before the procedure 1 238 Gm bottle mixed with Gatorade or Crystal Light Apr, 1 day Active Dulcolax (colon prep) 5 MG Orally two tablets twice a day for one day take at 3:00 p.m and 7:00p.m. Apr, 1 day Active Aspir-81 Active Omeprazole 20 MG Orally Once a day 1 capsule 30 minutes before morning meal 24h 30 day(s) Active MoviPrep 100 GM Orally 1 time only as directed Jan, 1 dose Not-Takin g Fenofibrate 160 MG Orally Once a day 1 tablet 24h 30 day(s) Active PROCEDURES Procedure Date Ordered Result Body Site BP SCR NOT PRFRM REC REASON NOS April 30, 2022 TOBACCO NON-USER April 30, 2022 DOC MEDS VERIFIED W/PT OR RE April 30, 2022 COLORECTAL CA SCREEN DOC REV April 30, 2022 UPPER GI ENDOSCOPY, BIOPSY May 30, 2022 COLONOSCOPY AND BIOPSY May 30, 2022 RESULTS No Results REASON FOR VISIT gerd,screening, bowel prep, Patient presents today for a screening colon, Cpt code, need cpt code, prep RX, colorectal cancer screening Insurance Providers Health Insurance Type Health Plan Insurance Address Health Plan Insurance Phone Health Plan Insurance Name Health Plan Coverage Dates Member ID Patient Relationship to Subscriber Patient Address Patient Phone Patient Name Patient Date of Subscriber ID Subscriber Name Subscriber Date of Group No [facility] [address] [facility] [phone] [place] [address] ANGELA RIVERA [id number] [facility] [address] [facility] [id number] [facility] ANGELA RIVERA [id number]
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
[2023-02-21 08:40] LABS: Glucose, Whole Blood 122 mg/dL (60-115)
[2023-02-21 08:50] VITALS: BP 137/89; PULSE 113; RESP 16; TEMP 36.1; O2SAT 97
[2023-02-21] MEDS: Nicotine 21 MG PATCH.TD24 TRANSDERMA (08:51)
[2023-02-21] MEDS: Omeprazole 20 MG CAPSULE.DR PO (08:52)
[2023-02-21] MEDS: clonazePAM 1 MG TABLET PO ×2 (08:52→16:47)
[2023-02-21] MEDS: Aspirin Enteric Coated 81 MG TABLET.DR PO (08:52)
[2023-02-21] MEDS: Venlafaxine HCl ER 37.5 MG CAP.ER.24H PO (08:52)
[2023-02-21] MEDS: amLODIPine Besylate 5 MG TABLET PO (08:52)
[2023-02-21] MEDS: Venlafaxine HCl ER 150 MG CAP.ER.24H PO (08:52)
[2023-02-21] MEDS: Fenofibrate 160 MG TABLET PO (08:52)
[2023-02-21] MEDS: metFORMIN HCl 500 MG TABLET 250 MG PO ×2 (08:53→19:10)
[2023-02-21] MEDS: lisinopriL 10 MG TABLET PO (08:53)
[2023-02-21] MEDS: OLANZapine 2.5 MG TABLET PO ×2 (08:53→19:10)
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
[2023-02-21 18:00] VITALS: BP 179/84; PULSE 78; RESP 16; TEMP 36.4; O2SAT 98
[2023-02-21] MEDS: Atorvastatin Calcium 20 MG TABLET PO (19:10)
[2023-02-21] MEDS: Propranolol HCL 10 MG TABLET PO (20:26)
[2023-02-22] MEDS: Omeprazole 20 MG CAPSULE.DR PO (06:13)
[2023-02-22 07:59] LABS: Estimated Glomerular Filt Rate 45
[2023-02-22 08:10] LABS: Glucose, Whole Blood 196 mg/dL (60-115)
[2023-02-22 08:25] VITALS: BP 116/73; PULSE 107; RESP 16; TEMP 36.1; O2SAT 97
[2023-02-22] MEDS: amLODIPine Besylate 5 MG TABLET PO (08:28)
[2023-02-22] MEDS: Aspirin Enteric Coated 81 MG TABLET.DR PO (08:28)
[2023-02-22] MEDS: clonazePAM 1 MG TABLET PO ×3 (08:28→23:41)
[2023-02-22] MEDS: Venlafaxine HCl ER 37.5 MG CAP.ER.24H PO (08:28)
[2023-02-22] MEDS: Fenofibrate 160 MG TABLET PO (08:28)
[2023-02-22] MEDS: Venlafaxine HCl ER 150 MG CAP.ER.24H PO (08:28)
[2023-02-22] MEDS: metFORMIN HCl 500 MG TABLET 250 MG PO ×2 (08:28→20:18)
[2023-02-22] MEDS: lisinopriL 10 MG TABLET PO (08:28)
[2023-02-22] MEDS: OLANZapine 2.5 MG TABLET PO ×2 (08:28→20:28)
[2023-02-22] MEDS: Nicotine 21 MG PATCH.TD24 TRANSDERMA (08:31)
--- NOTE | 2023-02-22 17:09 | P.PNPSI_ITS ---
Subjective Subjective Date of Service: 02/22/23 Reason For Visit: PTSD Subjective Notes: Conditional Voluntary Interim History: Continues with periods of anxiety, distress along with periods of positive milieu participation. Reviewed with team. No changes in regime today. Medication Compliance: Yes Side effects from medications: No Attending Groups: Yes Review of Systems Acute medical concerns: No Mental Status Exam Mental Status Exam Patient Appearance: Appropriate Patient Orientation: Person, Place, Time and Situation Level of Consciousness: Alert Patient Behavior: Talkative, Anxious, Distractible, Good Eye Contact and Crying Mood Description: Depressed and Anxious Affect Description: Flat Patient Cognition Impaired: No Ability to Follow Directions: Good Speech Pattern: Spontaneous Speech Memory Description: Intact Hallucinations: None Delusions: Paranoid Ideation Perceptual Disturbances: Depersonalization and Derealization Thought Process: Rumination Thought Content: positive for Circumstantial Depressive Symptoms: Increased Anxiety, Hopelessness, Feelings of Guilt and Low Self Esteem Abnormal Motor Activity Signs and Symptoms: Restlessness Judgement: Good Diagnostics Vital Signs (24Hr): Vital Signs - 24 hr 02/21/23 18:00 02/22/23 08:25 Temperature 97.6 F 97 F Pulse Rate 78 107 H Respiratory Rate 16 16 Blood Pressure 179/84 H 116/73 Pulse Oximetry 98 97 Oxygen Delivery Method Room Air Room Air Labs 02/22/23 07:20 Labs: Laboratory Results - last 48 hr 02/21/23 02/22/23 02/22/23 08:34 07:20 08:05 Creatinine 1.56 H Estim Creat Clear Calc TNP Estimated GFR 45 POC Glucose 122 H 196 H Medications Medications Current Medications Acetaminophen (Acetaminophen 325 Mg Tablet) 650 mg PO Q6H PRN PRN Reason: Pain, Mild (Pain Scale 1-3) Al Hydroxide/Mg Hydroxide (Magnesium Hydrox/Alum Hydrox 30 Ml Oral.Susp) 30 ml PO Q6H PRN PRN Reason: Heartburn/Nausea Amlodipine Besylate (Amlodipine Besylate 5 Mg Tablet) 5 mg PO DAILY [facility]; Protocol Last Admin: 02/22/23 08:28 Dose: 5 mg Aspirin (Aspirin Enteric Coated 81 Mg Tablet.) 81 mg PO DAILY [facility] Last Admin: 02/22/23 08:28 Dose: 81 mg Atorvastatin Calcium (Atorvastatin Calcium 20 Mg Tablet) 20 mg PO BEDTIME [facility] Last Admin: 02/21/23 19:10 Dose: 20 mg Clonazepam (Clonazepam 1 Mg Tablet) 1 mg PO TID PRN PRN Reason: Anxiety Last Admin: 02/22/23 14:28 Dose: 1 mg Docusate Sodium (Docusate Sodium 100 Mg Capsule) 100 mg PO DAILY PRN PRN Reason: Constipation Fenofibrate (Fenofibrate 160 Mg Tablet) 160 mg PO DAILY [facility] Last Admin: 02/22/23 08:28 Dose: 160 mg Glucose (Glucose Gel 15 Gm Gel..Gram.) 15 gm PO Q15M PRN; Protocol PRN Reason: per Hypoglycemia Standing Ord. Hydroxyzine HCl (Hydroxyzine Hcl 25 Mg Tablet) 25 mg PO Q6H PRN PRN Reason: Anxiety Lisinopril (Lisinopril 10 Mg Tablet) 10 mg PO DAILY [facility]; Protocol Last Admin: 02/22/23 08:28 Dose: 10 mg Magnesium Hydroxide (Milk Of Magnesia 30 Ml Oral.Susp) 30 ml PO DAILY PRN PRN Reason: Constipation Metformin HCl (Metformin Hcl 500 Mg Tablet) 250 mg PO BID [facility] Last Admin: 02/22/23 08:28 Dose: 250 mg Nicotine (Nicotine 21 Mg Patch.Td24) 21 mg TRANSDERMA DAILY [facility] Last Admin: 02/22/23 08:31 Dose: 21 mg Olanzapine (Olanzapine 2.5 Mg Tablet) 2.5 mg PO BID [facility] Last Admin: 02/22/23 08:28 Dose: 2.5 mg Olanzapine (Olanzapine 5 Mg Tablet) 5 mg PO Q4H PRN PRN Reason: grounding assistance Omeprazole (Omeprazole 20 Mg Capsule.Dr) 20 mg PO DAILY@0630 [facility] Last Admin: 02/22/23 06:13 Dose: 20 mg Pharmacy Consult (Consult Rx Perform Med Rec) 1 each MISCELLANE ONCE PRN PRN Reason: Consult order Propranolol HCl (Propranolol Hcl 10 Mg Tablet) 10 mg PO BID PRN; Protocol PRN Reason: Anxiety Last Admin: 02/21/23 20:26 Dose: 10 mg Trazodone HCl (Trazodone Hcl 50 Mg Tablet) 50 mg PO BEDTIME MRX1 PRN PRN Reason: Insomnia Venlafaxine HCl (Venlafaxine Hcl Er 37.5 Mg Cap.Er.24h) 37.5 mg PO DAILY [facility] Last Admin: 02/22/23 08:28 Dose: 37.5 mg Venlafaxine HCl (Venlafaxine Hcl Er 150 Mg Cap.Er.24h) 150 mg PO DAILY [facility] Last Admin: 02/22/23 08:28 Dose: 150 mg Allergies Allergies Allergy/AdvReac Type Severity Reaction Status Date / Time codeine [CODEINE] AdvReac Severe Nausea Verified 01/23/22 10:17 Assessment & Plan Assessment & Plan (1) PTSD (post-traumatic stress disorder): Status: Acute Code(s): F43.10 - Post-traumatic stress disorder, unspecified (2) MDD (major depressive disorder), recurrent episode, moderate: Status: Acute Code(s): F33.1 - Major depressive disorder, recurrent, moderate (3) Alcohol use disorder, moderate, dependence: Status: Acute Code(s): F10.20 - Alcohol dependence, uncomplicated (4) Cocaine abuse: Status: Acute Code(s): F14.10 - Cocaine abuse, uncomplicated (5) Cannabis abuse: Status: Acute Code(s): F12.10 - Cannabis abuse, uncomplicated Plan 62 yo male, transfer from medical unit with PTSD, anxiety, panic, substance use. Court date 02/27 for assault. Has completed a forensic PTSD assessment prior to this date and reports he is waiting for admit to [place] PTSD program at some point. Plan: Continue current regime Continue Olanzapine, started on medicine, for mgt of PTSD sx, grounding. Full milieu participation encouraged for skill building. 02/22/23: Continue current regime and plan. Informed Consent: understands Reason for continued inpatient stay Substantial Risk for: harm to self and rapid decompensation Time Spent With Patient Time: Total time managing care of this patient today ____ minutes.
[2023-02-22 18:00] VITALS: BP 140/83; PULSE 109; RESP 20; TEMP 35.5; O2SAT 99
[2023-02-22] MEDS: Atorvastatin Calcium 20 MG TABLET PO (20:18)
[2023-02-22] MEDS: Propranolol HCL 10 MG TABLET PO (20:20)
[2023-02-22] MEDS: OLANZapine 5 MG TABLET PO (20:20)
[2023-02-23] MEDS: Omeprazole 20 MG CAPSULE.DR PO (05:56)
[2023-02-23 07:52] LABS: Glucose, Whole Blood 175 mg/dL (60-115)
[2023-02-23 08:14] VITALS: BP 134/67; PULSE 103; RESP 16; TEMP 36.1
[2023-02-23] MEDS: clonazePAM 1 MG TABLET PO ×3 (08:17→21:14)
[2023-02-23] MEDS: lisinopriL 10 MG TABLET PO (08:17)
[2023-02-23] MEDS: Venlafaxine HCl ER 150 MG CAP.ER.24H PO (08:18)
[2023-02-23] MEDS: metFORMIN HCl 500 MG TABLET 250 MG PO ×2 (08:18→21:13)
[2023-02-23] MEDS: Venlafaxine HCl ER 37.5 MG CAP.ER.24H PO (08:18)
[2023-02-23] MEDS: OLANZapine 2.5 MG TABLET PO ×2 (08:18→21:15)
[2023-02-23] MEDS: amLODIPine Besylate 5 MG TABLET PO (08:18)
[2023-02-23] MEDS: Fenofibrate 160 MG TABLET PO (08:18)
[2023-02-23] MEDS: Aspirin Enteric Coated 81 MG TABLET.DR PO (08:18)
[2023-02-23] MEDS: Nicotine 21 MG PATCH.TD24 TRANSDERMA (08:26)
--- NOTE | 2023-02-23 15:09 | HO.PSYCHPN ---
Subjective Subjective Date of Service: 02/23/23 Reason For Visit: PTSD Subjective Notes: Conditional Voluntary Interim History: Pt reports his mood is a yo-yo Pt reports overall feels better, less anxious and overwhelmed. He reports sleeping well. he denies SI/HI. No psychosis. Pt reports he hopes to be discharged before Thursday as he has court hearing he does not want to miss. Per nursing, pt taking medications as prescribed. No behavioral concerns. Medication Compliance: Yes Review of Systems Reports behavioral changes Psychiatric: Reports anxiety, Reports behavioral changes, Reports depression, Reports difficulty concentrating, Reports hopelessness, Reports anhedonia, Reports panic attacks and Reports suicidal ideation Mental Status Exam Mental Status Exam Patient Appearance: Appropriate Patient Orientation: Person, Place, Time and Situation Level of Consciousness: Alert Patient Behavior: Talkative, Anxious, Distractible, Good Eye Contact and Crying Mood Description: Depressed and Anxious Affect Description: Flat Patient Cognition Impaired: No Ability to Follow Directions: Good Speech Pattern: Spontaneous Speech Memory Description: Intact Diagnostics Vital Signs (24Hr): Vital Signs - 24 hr 02/22/23 18:00 02/23/23 08:14 Temperature 96 F L 97 F Pulse Rate 109 H 103 H Respiratory Rate 20 16 Blood Pressure 140/83 H 134/67 Pulse Oximetry 99 Oxygen Delivery Method Room Air Labs 02/22/23 07:20 Labs: Laboratory Results - last 48 hr 02/22/23 02/22/23 02/23/23 07:20 08:05 07:48 Creatinine 1.56 H Estim Creat Clear Calc TNP Estimated GFR 45 POC Glucose 196 H 175 H Medications Medications Current Medications Acetaminophen (Acetaminophen 325 Mg Tablet) 650 mg PO Q6H PRN PRN Reason: Pain, Mild (Pain Scale 1-3) Al Hydroxide/Mg Hydroxide (Magnesium Hydrox/Alum Hydrox 30 Ml Oral.Susp) 30 ml PO Q6H PRN PRN Reason: Heartburn/Nausea Amlodipine Besylate (Amlodipine Besylate 5 Mg Tablet) 5 mg PO DAILY [facility]; Protocol Last Admin: 02/23/23 08:18 Dose: 5 mg Aspirin (Aspirin Enteric Coated 81 Mg Tablet.) 81 mg PO DAILY [facility] Last Admin: 02/23/23 08:18 Dose: 81 mg Atorvastatin Calcium (Atorvastatin Calcium 20 Mg Tablet) 20 mg PO BEDTIME [facility] Last Admin: 02/22/23 20:18 Dose: 20 mg Clonazepam (Clonazepam 1 Mg Tablet) 1 mg PO TID PRN PRN Reason: Anxiety Last Admin: 02/23/23 08:17 Dose: 1 mg Docusate Sodium (Docusate Sodium 100 Mg Capsule) 100 mg PO DAILY PRN PRN Reason: Constipation Fenofibrate (Fenofibrate 160 Mg Tablet) 160 mg PO DAILY [facility] Last Admin: 02/23/23 08:18 Dose: 160 mg Glucose (Glucose Gel 15 Gm Gel..Gram.) 15 gm PO Q15M PRN; Protocol PRN Reason: per Hypoglycemia Standing Ord. Hydroxyzine HCl (Hydroxyzine Hcl 25 Mg Tablet) 25 mg PO Q6H PRN PRN Reason: Anxiety Lisinopril (Lisinopril 10 Mg Tablet) 10 mg PO DAILY [facility]; Protocol Last Admin: 02/23/23 08:17 Dose: 10 mg Magnesium Hydroxide (Milk Of Magnesia 30 Ml Oral.Susp) 30 ml PO DAILY PRN PRN Reason: Constipation Metformin HCl (Metformin Hcl 500 Mg Tablet) 250 mg PO BID [facility] Last Admin: 02/23/23 08:18 Dose: 250 mg Nicotine (Nicotine 21 Mg Patch.Td24) 21 mg TRANSDERMA DAILY [facility] Last Admin: 02/23/23 08:26 Dose: 21 mg Olanzapine (Olanzapine 2.5 Mg Tablet) 2.5 mg PO BID [facility] Last Admin: 02/23/23 08:18 Dose: 2.5 mg Olanzapine (Olanzapine 5 Mg Tablet) 5 mg PO Q4H PRN PRN Reason: grounding assistance Last Admin: 02/22/23 20:20 Dose: 5 mg Omeprazole (Omeprazole 20 Mg Capsule.) 20 mg PO DAILY@0630 [facility] Last Admin: 02/23/23 05:56 Dose: 20 mg Pharmacy Consult (Consult Rx Perform Med Rec) 1 each MISCELLANE ONCE PRN PRN Reason: Consult order Propranolol HCl (Propranolol Hcl 10 Mg Tablet) 10 mg PO BID PRN; Protocol PRN Reason: Anxiety Last Admin: 02/22/23 20:20 Dose: 10 mg Trazodone HCl (Trazodone Hcl 50 Mg Tablet) 50 mg PO BEDTIME MRX1 PRN PRN Reason: Insomnia Venlafaxine HCl (Venlafaxine Hcl Er 37.5 Mg Cap.Er.24h) 37.5 mg PO DAILY [facility] Last Admin: 02/23/23 08:18 Dose: 37.5 mg Venlafaxine HCl (Venlafaxine Hcl Er 150 Mg Cap.Er.24h) 150 mg PO DAILY [facility] Last Admin: 02/23/23 08:18 Dose: 150 mg Allergies Allergies Allergy/AdvReac Type Severity Reaction Status Date / Time codeine [CODEINE] AdvReac Severe Nausea Verified 01/23/22 10:17 Assessment & Plan Assessment & Plan (1) PTSD (post-traumatic stress disorder): Status: Acute Code(s): F43.10 - Post-traumatic stress disorder, unspecified (2) MDD (major depressive disorder), recurrent episode, moderate: Status: Acute Code(s): F33.1 - Major depressive disorder, recurrent, moderate (3) Alcohol use disorder, moderate, dependence: Status: Acute Code(s): F10.20 - Alcohol dependence, uncomplicated (4) Cocaine abuse: Status: Acute Code(s): F14.10 - Cocaine abuse, uncomplicated (5) Cannabis abuse: Status: Acute Code(s): F12.10 - Cannabis abuse, uncomplicated Plan 62 yo male, transfer from medical unit with PTSD, anxiety, panic, substance use. Court date 02/27 for assault. Has completed a forensic PTSD assessment prior to this date and reports he is waiting for admit to [place] PTSD program at some point. Plan: Continue current regime Continue Olanzapine, started on medicine, for mgt of PTSD sx, grounding. Full milieu participation encouraged for skill building. 02/22/23: Continue current regime and plan. 02/24 continue tx. Reason for continued inpatient stay Substantial Risk for: inability to function Time Spent With Patient Time: Total time managing care of this patient today ____ minutes.
[2023-02-23] MEDS: Atorvastatin Calcium 20 MG TABLET PO (21:14)
[2023-02-23] MEDS: Propranolol HCL 10 MG TABLET PO (21:15)
[2023-02-23 21:20] VITALS: BP 126/69; PULSE 97; TEMP 36.1; O2SAT 97
[2023-02-24] MEDS: Omeprazole 20 MG CAPSULE.DR PO (05:32)
[2023-02-24 06:00] VITALS: BP 138/84; PULSE 88; RESP 16; TEMP 36.1
[2023-02-24 08:16] LABS: Glucose, Whole Blood 137 mg/dL (60-115)
[2023-02-24] MEDS: OLANZapine 2.5 MG TABLET PO (08:40)
[2023-02-24] MEDS: lisinopriL 10 MG TABLET PO (08:40)
[2023-02-24] MEDS: metFORMIN HCl 500 MG TABLET 250 MG PO ×2 (08:42→19:31)
[2023-02-24] MEDS: amLODIPine Besylate 5 MG TABLET PO (08:42)
[2023-02-24] MEDS: Venlafaxine HCl ER 37.5 MG CAP.ER.24H PO (08:42)
[2023-02-24] MEDS: Venlafaxine HCl ER 150 MG CAP.ER.24H PO (08:42)
[2023-02-24] MEDS: Aspirin Enteric Coated 81 MG TABLET.DR PO (08:42)
[2023-02-24] MEDS: Fenofibrate 160 MG TABLET PO (08:42)
[2023-02-24] MEDS: Nicotine 21 MG PATCH.TD24 TRANSDERMA (08:43)
[2023-02-24] MEDS: clonazePAM 1 MG TABLET PO ×3 (08:43→20:03)
--- NOTE | 2023-02-24 09:20 | MHC.CARE ---
in re: to insurance auth, [facility] rep Dawn reports that the contact is Svitlana Menon, ext [phone]. Clinical information was provided on and per Dawn, Svitlana has 24-48 hours to call back with the auth/ decision. If no call back by Svitlana by 02/25/23 we can reach out to her directly
--- NOTE | 2023-02-24 17:16 | P.PNPSI_ITS ---
Subjective Subjective Date of Service: 02/24/23 Reason For Visit: PTSD Subjective Notes: Conditional Voluntary Healthcare Proxy: No Guardianship: No Medical Problems Affecting Mental Status: No Interim History: I believe my actions have shamed the [employer]. I have never wanted to be an embarrassment to my country. Plans discharge 02/25/23. Will attend [facility] appt 02/26. Team has res cheduled [facility] psychiatry appointment with his consent. Court 02/27. Discussed his apprehension about outcome of his court case and fear of incarceration. Also discussed his wanting to get a better handle on mgt of triggers. Review of medications. Tolerating Olanzapine, discussed increase prior to disc harge and he believes this will help him with grounding. Medication Compliance: Yes Side effects from medications: No Attending Groups: Yes Review of Systems Acute medical concerns: No Medical Review of Systems: unchanged Mental Status Exam Mental Status Exam Patient Appearance: Appropriate Patient Orientation: Person, Place, Time and Situation Level of Consciousness: Alert Patient Behavior: Appropriate, Talkative, Cooperative and Good Eye Contact Mood Description: Apprehensive Affect Description: Apprehensive Patient Cognition Impaired: No Ability to Follow Directions: Good Speech Pattern: Spontaneous Speech Memory Description: Episodic Impaired Hallucinations: None Delusions: Not Present Perceptual Disturbances: Depersonalization (at times) and Derealization (at times) Thought Process: Distracted and Rumination Thought Content: positive for [place], positive for Circumstantial, positive for Perseveration, positive for Suicidal Ideation (denies) and positive for Homicidal Ideation (denies) Depressive Symptoms: Increased Anxiety, Feelings of Worthlessness, Feelings of Guilt, Thoughts of /Suicide (denies) and Low Self Esteem Judgement: Good Diagnostics Vital Signs (24Hr): Vital Signs - 24 hr 02/23/23 21:20 02/24/23 06:00 Temperature 97.0 F 97 F Pulse Rate 97 88 Respiratory Rate 16 Blood Pressure 126/69 138/84 Pulse Oximetry 97 Oxygen Delivery Method Room Air Labs 02/22/23 07:20 Labs: Laboratory Results - last 48 hr 02/23/23 02/24/23 07:48 08:12 POC Glucose 175 H 137 H Medications Medications Current Medications Acetaminophen (Acetaminophen 325 Mg Tablet) 650 mg PO Q6H PRN PRN Reason: Pain, Mild (Pain Scale 1-3) Al Hydroxide/Mg Hydroxide (Magnesium Hydrox/Alum Hydrox 30 Ml Oral.Susp) 30 ml PO Q6H PRN PRN Reason: Heartburn/Nausea Amlodipine Besylate (Amlodipine Besylate 5 Mg Tablet) 5 mg PO DAILY [facility]; Protocol Last Admin: 02/24/23 08:42 Dose: 5 mg Aspirin (Aspirin Enteric Coated 81 Mg Tablet.) 81 mg PO DAILY [facility] Last Admin: 02/24/23 08:42 Dose: 81 mg Atorvastatin Calcium (Atorvastatin Calcium 20 Mg Tablet) 20 mg PO BEDTIME [facility] Last Admin: 02/23/23 21:14 Dose: 20 mg Clonazepam (Clonazepam 1 Mg Tablet) 1 mg PO TID PRN PRN Reason: Anxiety Last Admin: 02/24/23 13:40 Dose: 1 mg Docusate Sodium (Docusate Sodium 100 Mg Capsule) 100 mg PO DAILY PRN PRN Reason: Constipation Fenofibrate (Fenofibrate 160 Mg Tablet) 160 mg PO DAILY [facility] Last Admin: 02/24/23 08:42 Dose: 160 mg Glucose (Glucose Gel 15 Gm Gel..Gram.) 15 gm PO Q15M PRN; Protocol PRN Reason: per Hypoglycemia Standing Ord. Hydroxyzine HCl (Hydroxyzine Hcl 25 Mg Tablet) 25 mg PO Q6H PRN PRN Reason: Anxiety Lisinopril (Lisinopril 10 Mg Tablet) 10 mg PO DAILY [facility]; Protocol Last Admin: 02/24/23 08:40 Dose: 10 mg Magnesium Hydroxide (Milk Of Magnesia 30 Ml Oral.Susp) 30 ml PO DAILY PRN PRN Reason: Constipation Metformin HCl (Metformin Hcl 500 Mg Tablet) 250 mg PO BID [facility] Last Admin: 02/24/23 08:42 Dose: 250 mg Nicotine (Nicotine 21 Mg Patch.Td24) 21 mg TRANSDERMA DAILY [facility] Last Admin: 02/24/23 08:43 Dose: 21 mg Olanzapine (Olanzapine 2.5 Mg Tablet) 2.5 mg PO BID [facility] Last Admin: 02/24/23 08:40 Dose: 2.5 mg Olanzapine (Olanzapine 5 Mg Tablet) 5 mg PO Q4H PRN PRN Reason: grounding assistance Last Admin: 02/22/23 20:20 Dose: 5 mg Omeprazole (Omeprazole 20 Mg Capsule.) 20 mg PO DAILY@0630 [facility] Last Admin: 02/24/23 05:32 Dose: 20 mg Pharmacy Consult (Consult Rx Perform Med Rec) 1 each MISCELLANE ONCE PRN PRN Reason: Consult order Propranolol HCl (Propranolol Hcl 10 Mg Tablet) 10 mg PO BID PRN; Protocol PRN Reason: Anxiety Last Admin: 02/23/23 21:15 Dose: 10 mg Trazodone HCl (Trazodone Hcl 50 Mg Tablet) 50 mg PO BEDTIME MRX1 PRN PRN Reason: Insomnia Venlafaxine HCl (Venlafaxine Hcl Er 37.5 Mg Cap.Er.24h) 37.5 mg PO DAILY [facility] Last Admin: 02/24/23 08:42 Dose: 37.5 mg Venlafaxine HCl (Venlafaxine Hcl Er 150 Mg Cap.Er.24h) 150 mg PO DAILY [facility] Last Admin: 02/24/23 08:42 Dose: 150 mg Allergies Allergies Allergy/AdvReac Type Severity Reaction Status Date / Time codeine [CODEINE] AdvReac Severe Nausea Verified 01/23/22 10:17 Assessment & Plan Assessment & Plan (1) PTSD (post-traumatic stress disorder): Status: Acute Code(s): F43.10 - Post-traumatic stress disorder, unspecified (2) MDD (major depressive disorder), recurrent episode, moderate: Status: Acute Code(s): F33.1 - Major depressive disorder, recurrent, moderate (3) Alcohol use disorder, moderate, dependence: Status: Acute Code(s): F10.20 - Alcohol dependence, uncomplicated (4) Cocaine abuse: Status: Acute Code(s): F14.10 - Cocaine abuse, uncomplicated (5) Cannabis abuse: Status: Acute Code(s): F12.10 - Cannabis abuse, uncomplicated Plan 62 yo male, transfer from medical unit with PTSD, anxiety, panic, substance use. Court date 02/27 for assault. Has completed a forensic PTSD assessment prior to this date and reports he is waiting for admit to [facility] program at some point. Plan: Continue current regime Continue Olanzapine, started on medicine, for mgt of PTSD sx, grounding. Full milieu participation encouraged for skill building. 02/22/23: Continue current regime and plan. 02/23 continue tx. 02/24/23: Discharge 02/25. Titration of Olanzapine to begin this evening. Patient educated on: diagnosis, medication risk/benefits and therapeutic strategies Informed Consent: understands Reason for continued inpatient stay Substantial Risk for: rapid decompensation Time Spent With Patient Time: Total time managing care of this patient today ____ minutes.
[2023-02-24 18:00] VITALS: BP 142/82; PULSE 108; TEMP 36.3; O2SAT 99
[2023-02-24] MEDS: Atorvastatin Calcium 20 MG TABLET PO (19:31)
[2023-02-24] MEDS: OLANZapine 5 MG TABLET PO (20:04)
[2023-02-25] MEDS: Omeprazole 20 MG CAPSULE.DR PO (06:01)
[2023-02-25 07:45] VITALS: BP 123/97; PULSE 113; RESP 18; TEMP 36.6; O2SAT 97
[2023-02-25] MEDS: Aspirin Enteric Coated 81 MG TABLET.DR PO (08:03)
[2023-02-25] MEDS: Venlafaxine HCl ER 150 MG CAP.ER.24H PO (08:03)
[2023-02-25] MEDS: amLODIPine Besylate 5 MG TABLET PO (08:03)
[2023-02-25] MEDS: Fenofibrate 160 MG TABLET PO (08:03)
[2023-02-25] MEDS: OLANZapine 5 MG TABLET PO (08:03)
[2023-02-25] MEDS: metFORMIN HCl 500 MG TABLET 250 MG PO (08:03)
[2023-02-25 08:04] LABS: Glucose, Whole Blood 210 mg/dL (60-115)
[2023-02-25] MEDS: lisinopriL 10 MG TABLET PO (08:04)
[2023-02-25] MEDS: Nicotine 21 MG PATCH.TD24 TRANSDERMA (08:04)
[2023-02-25] MEDS: Venlafaxine HCl ER 37.5 MG CAP.ER.24H PO (08:04)
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
--- NOTE | 2023-02-25 18:10 | PC.NURSE ---
Ativan 1mg administered on 02/21/23 for anxiety. Documentation entered for late entry.
== END 2023-02-25 10:35 | disposition home or self-care (01) | DRG 885 ==
PROVIDERS: Admitting Provider Psychiatry & Neurology Psychiatry; PCP Student in an Organized Health Care Education/Training Program; Visit Provider Clinical Nurse Specialist Psychiatric/Mental Health, Adult
DX: F33.1 Major depressive disorder, recurrent, moderate (principal); F43.10 Post-traumatic stress disorder, unspecified; E78.5 Hyperlipidemia, unspecified; I10 Essential (primary) hypertension; K21.9 Gastro-esophageal reflux disease without esophagitis; F10.20 Alcohol dependence, uncomplicated; F14.10 Cocaine abuse, uncomplicated; F12.10 Cannabis abuse, uncomplicated; F17.210 Nicotine dependence, cigarettes, uncomplicated; Z71.6 Tobacco abuse counseling; Z88.5 Allergy status to narcotic agent; Z79.4 Long term (current) use of insulin; Z79.82 Long term (current) use of aspirin; Z79.84 Long term (current) use of oral hypoglycemic drugs; Z79.899 Other long term (current) drug therapy
CPT/HCPCS: 36415; 82565; 82947

== ENCOUNTER → 2023-03-27 08:49 | Outpatient (REF) | payer OTHER, MEDICARE, SELFPAY ==
--- NOTE | 2023-03-27 08:57 | CA_ITS ---
Acquisition Time: 2023-03-27 09:38:15 Total Exercise Time: 00:06:59 Test Indications: abn ekg Medications: see h Protocol: BAO Max HR: 137 BPM 86% of Pred: 159 BPM Max BP: 140/058 mmHG Max Work Load: 8.5 METS Exercise stress test with exercise 6 min 59 sec of Bao protocol, achieving 86% MPHR, with moderate sob and need to stop, No chest discomfort with exercise, with isolated PACs, with normotensive response to exercise, without EKG changes meeting criteria for ischemia in exercise with mild nonspecific ST abnormality noted in later recovery. Once exercise stopped he reported having a 1/10 discomfort in chest which he unable to further describe. With rest his sob and chest symptom resolved. Test reviewed with Dr Scruggs. Martines treadmill score +3., Medium Risk. If further evaluation warranted, Recommend stress echocardiogram. Referred By: Daron Oconnell Overread By: GISELE SILVERMAN
== END ==
LOC: HO.CARD 08:49
PROVIDERS: Visit Provider Physician Assistant Medical
DX: R07.89 Other chest pain (principal)
CPT/HCPCS: 93017

== ENCOUNTER 2023-05-24 07:21 | Emergency (ER) | payer OTHER, SELFPAY ==
[2023-05-24 07:35] VITALS: BP 140/96; BP 160/100; PULSE 104; PULSE 99; RESP 18; TEMP 37.4; O2SAT 94; O2SAT 96; BMI 31.9
--- NOTE | 2023-05-24 07:50 | ED.ANXIETY ---
HPI - Anxiety General Chief Complaint: Anxiety Stated Complaint: Increased anxiety x 4 days per EMS Time Seen by Provider: 05/24/23 07:23 Source: patient and old records reviewed Mode of arrival: EMS Limitations: no limitations History of Present Illness HPI narrative: 62 yo male with severe anxiety, MDD, polysubstance abuse, bipolar disorder who states he is compliant with his medications but has been having a panic attack for 4 days and needs some ativan to help him. He denies SI/HI AH/VH thoughts of self harm or needing inpatient care. He states ativan usually helps break it. He states he still has clonazepam at home but it didn't help. He has friends and family he can talk to but he didn't want to bother them on Thursday. MD complaint: anxiety Onset (ago): day(s) (4) Symptoms: extremity numbness/tingling Severity: severe Quality: constant Place: home History of similar episodes: Yes Provoking factors: emotional stress Relieving factors: nothing Exacerbating factors: thinking about event Associated symptoms: denies other symptoms Related Data Home Medications Medication Instructions Recorded Confirmed aspirin 81 mg tablet,delayed 81 mg PO DAILY 11/11/21 02/21/23 release atorvastatin 20 mg tablet 20 mg PO BEDTIME 11/11/21 02/21/23 omeprazole 20 mg capsule,delayed 20 mg PO DAILY 11/11/21 02/21/23 release propranolol 10 mg tablet 10 mg PO BID PRN Anxiety 11/11/21 02/21/23 venlafaxine 150 mg 1 cap PO DAILY 01/23/22 02/21/23 capsule,extended release 24 hr fenofibrate 160 mg tablet 160 mg PO DAILY 05/23/22 02/21/23 metformin 500 mg tablet 250 mg PO BID 06/23/22 02/21/23 clonazepam 1 mg tablet 1 mg PO TID PRN Anxiety 02/18/23 02/21/23 Previous Rx's Medication Instructions Recorded nicotine 21 mg/24 hr daily 21 mg transdermal DAILY #30 ea 11/22/21 transdermal patch acetaminophen 325 mg tablet 650 mg PO Q6H PRN Pain, Mild (Pain 02/20/23 Scale 1-3) #30 tabs amlodipine 5 mg tablet 5 mg PO DAILY #30 tabs 02/20/23 insulin lispro 100 unit/mL See Protocol subcut QIDACHS #1 mL 02/20/23 subcutaneous solution (Humalog U-100 Insulin) lisinopril 10 mg tablet 10 mg PO DAILY #30 tabs 02/20/23 lisinopril 10 mg tablet 10 mg PO DAILY #30 tabs 02/24/23 olanzapine 5 mg tablet 5 mg PO BID #60 tabs 02/24/23 venlafaxine 37.5 mg 37.5 mg PO DAILY #30 caps 02/24/23 capsule,extended release 24 hr Allergies Allergy/AdvReac Type Severity Reaction Status Date / Time codeine [CODEINE] AdvReac Severe Nausea Verified 01/23/22 10:17 Review of Systems Review of Systems: Constitutional : No Fever, No Chills ENT/Mouth : No Ear Pain, No Nasal Congestion, No sore throat Eyes: No Eye Pain, No Swelling, No Redness Cardiovascular : No Chest Pain, No SOB Respiratory : No Cough, No Sputum, No Dyspnea Gastrointestinal : No Nausea, No Vomiting, No Diarrhea, No Hematochezia, No Melena Genitourinary : No Dysuria, No Urinary Frequency, No Hematuria Musculoskeletal : No Myalgias Skin : No Skin Lesions, No rash Neuro : No Weakness, No Numbness, No Paresthesias, No Dizziness, No Headache Psych : positive Anxiety, positive Depression, no SI/HI Heme/Lymph: No Lymphadenopathy Endocrine : No Polyuria, No Polydipsia All other systems reviewed and are negative [facility] Past Medical History Attestation statement: The following information was validated with the patient. Source: old records reviewed Medical History Amputation finger Anxiety Cannabis abuse Chronic renal insufficiency Cocaine abuse Depression Diabetes GERD (gastroesophageal reflux disease) H/O ETOH abuse HTN (hypertension) Hyperlipidemia Osteomyelitis Panic attacks PTSD (post-traumatic stress disorder) Smoker Surgical History H/O colonoscopy History of carpal tunnel release of both wrists Hx of foot surgery Family History Family History Other No family history of coronary artery disease Social History Social History Household Members: Unknown / Unable to assess Household Members Other:: Self Housing: Unknown / Unable to assess Housing Other:: lives in basement of a home Unable to assess alcohol history related to: Refusing to respond Alcohol intake: never Patient Tobacco Use Status: Current everyday Tobacco user Tobacco use type: Cigarette Cigarette Packs Per Day: 0.5 Cigarettes Per Day: 10.0 Years Smoked: 28 Smoked in Last 30 Days: Yes Use of substances other than those prescribed or required for medical reasons: Yes Substance Use Type: Marijuana Advance Directives: Yes Advance Directives on File: Yes Advance Directives Date on File: 06/24/22 service: Yes (Pt was in the [employer] Current occupational status: disabled Sexual orientation: Straight/Heterosexual Physical Exam Vital Signs: Vital Signs: Last Vital Signs Temp 100.3 F 05/24/23 08:03 Pulse 93 05/24/23 08:03 Resp 20 05/24/23 08:03 BP 130/88 05/24/23 08:03 Pulse Ox 93 05/24/23 08:03 O2 Del Method Room Air 05/24/23 08:03 BMI result Body Mass Index 31.9 Appearance: Alert. Oriented X3. anxious mild acute distress. crying Eyes: Pupils equal, round and reactive to light. ENT: Pharynx normal. Neck: Normal inspection. Neck supple. CVS: Normal heart rate and rhythm. Pulses normal. Respiratory: No respiratory distress. Breath sounds normal. Abdomen: Soft and nontender. Skin: Skin warm and dry. Normal skin color. Normal skin turgor. Extremities: No lower extremity edema. No calf ttp Neuro: Oriented X 3. No motor deficit. No sensory deficit. Course Course Course Narrative: sleeping feels better stable for DC Medications Administered Discontinued Medications Generic Name Dose Route Start Last Admin Trade Name Reganq PRN Reason Stop Dose Admin Lorazepam 2 mg 05/24/23 07:49 05/24/23 07:54 Lorazepam 1 Mg Tablet PO 05/24/23 07:50 2 mg ONCE ONE Administration Medical Decision Making Medical Decision Making [facility] Narrative: 62 yo male with severe anxiety, MDD, polysubstance abuse, bipolar disorder here crying but no SI/HI AH/VH denies needing inpatient help and states ativan usually helps him. he denies medical complaints or illicit drug use. He states he feels fine otherwise and has gone through this before. He has resources he just hasn't reached out yet Differential Diagnosis Differential Diagnoses: The differential diagnosis associated with the presentation includes anxiety, non med compliance, ran out of medications Admission/Observation Consideration of admission/observation: Escalation of care including admission/observation considered states he feels better and does not need crisis evaluation talking to a family member on phone right now Lab Data MDM Lab Attestation statement: I reviewed the patient's lab results. Labs: Lab Results 05/24/23 Range/Units 08:31 COVID-19 (RG) Negative (Negative) COVID-19 Clin Com See Note Independent Historian Clinical information obtained from an independent historian. History obtained from or confirmed by: EMS External Record Review External record reviewed: Inpatient record Social Determinants Patient?s care significantly limited by Social Determinants of Health including: Problems related to primary support group Discharge Plan Discharge Clinical Impression: Anxiety attack Patient Disposition: Home, Self-Care Instructions: Anxiety (ED), Panic Attack (ED) Additional Instructions: please talk to your family and friends about your anxiety, return for thoughts of self harm or if you need crisis help. take your medications as prescribed. the national hotline for suicidal thoughts is 988 COVID test is negative Prescriptions: No Action venlafaxine 150 mg capsule,extended release 24hr 1 cap PO DAILY fenofibrate 160 mg Tablet 160 mg PO DAILY metformin 500 mg Tablet 250 mg PO BID atorvastatin 20 mg Tablet 20 mg PO BEDTIME propranolol 10 mg Tablet 10 mg PO BID PRN (Reason: Anxiety) omeprazole 20 mg Capsule,Delayed Release(Dr/Ec) 20 mg PO DAILY aspirin 81 mg Tablet,Delayed Release (Dr/Ec) 81 mg PO DAILY nicotine 21 mg/24 hr Patch 24 Hour 21 mg transdermal DAILY Qty: 30 0RF clonazepam 1 mg tablet 1 mg PO TID PRN (Reason: Anxiety) acetaminophen 325 mg Tablet 650 mg PO Q6H PRN (Reason: Pain, Mild (Pain Scale 1-3)) Qty: 30 0RF amlodipine 5 mg Tablet 5 mg PO DAILY Qty: 30 0RF Protocol: Hold for SBP< HOLD for SBP < : 90 lisinopril 10 mg Tablet 10 mg PO DAILY Qty: 30 0RF Protocol: Hold for SBP< HOLD for SBP < : 90 insulin lispro [Humalog U-100 Insulin] 100 unit/mL Solution See Protocol subcut QIDACHS Qty: 1 0RF Protocol: Insulin Correction Scale Less than or equal to 110 ---- Give (units): 0 111 to 150 Give (units): 0 151 to 200 Give (units): 2 201 to 250 Give (units): 4 251 to 300 Give (units): 6 301 to 350 Give (units): 8 Greater than 350 Give (units): 10 Call MD if Blood Glucose > : 350 olanzapine 5 mg Tablet 5 mg PO BID Qty: 60 0RF lisinopril 10 mg Tablet 10 mg PO DAILY Qty: 30 0RF Protocol: Hold for SBP< HOLD for SBP < : 90 venlafaxine 37.5 mg capsule,extended release 24hr 37.5 mg PO DAILY Qty: 30 0RF
[2023-05-24] MEDS: LORazepam 1 MG TABLET 2 MG PO (07:54)
[2023-05-24 08:03] VITALS: BP 130/88; PULSE 93; RESP 20; TEMP 37.9; O2SAT 93
[2023-05-24 08:53] LABS: COVID-19 Test Negative (Negative); IDNOW Serial# BCCEAD1C
== END 2023-05-24 09:23 | disposition home or self-care (01) ==
PROVIDERS: Emergency Provider Emergency Medicine
DX: F41.1 Generalized anxiety disorder (principal); F43.0 Acute stress reaction; F17.210 Nicotine dependence, cigarettes, uncomplicated; Z20.822 Contact with and (suspected) exposure to COVID-19; Z20.828 Contact with and (suspected) exposure to other viral communicable diseases; Z79.899 Other long term (current) drug therapy
CPT/HCPCS: 87635; 99284

== ENCOUNTER 2023-06-09 11:45 | Emergency (ER) | payer OTHER, SELFPAY ==
--- NOTE | ~2023-06-09 | XR_ITS ---
EXAMINATION: XR HAND, RIGHT CLINICAL INFORMATION: Pain. COMPARISON: None available. TECHNIQUE: PA, lateral, and oblique views of the right hand. FINDINGS: The bones and soft tissues are normal. No fracture. Alignment is anatomic. Joint spaces are maintained. No erosions or soft tissue calcifications. XR/XR hand RT min 3V IMPRESSION: Unremarkable right hand exam.
--- NOTE | ~2023-06-09 | US_ITS ---
EXAMINATION: US VENOUS ULTRASOUND WITH DOPPLER LOWER EXTREMITY, BILATERAL CLINICAL INFORMATION: Pain and swelling COMPARISON: None available. TECHNIQUE: Ultrasound of the deep veins is performed from the hip to the calf with compression sonography and color and pulse Doppler assessment. Spectral analysis with color-flow imaging is performed. FINDINGS: RIGHT: There is normal venous compression and respiratory variation and augmented flow. The visualized common femoral vein, superficial femoral vein, profunda femoral vein, popliteal vein, and the trifurcation region shows no evidence of deep venous thrombosis. There is small Cortez's cyst cysts measuring 4.2 x 1.7 x 3.0 cm. LEFT: There is normal venous compression and respiratory variation and augmented flow. The visualized common femoral vein, superficial femoral vein, profunda femoral vein, popliteal vein, and the trifurcation region shows no evidence of deep venous thrombosis. There is no significant popliteal fossa cyst. If the patient's symptoms persist, followup ultrasound in 5 days 7 days might be of value to exclude proximal propagation from a non-visualized calf vein. US/US venous duplex LE BI IMPRESSION: No DVT demonstrated in the bilateral lower extremity. Small right Cortez's cyst measuring 4.2 cm in maximum dimension.
[2023-06-09 11:57] VITALS: BP 100/59; BP 116/68; BP 121/60; PULSE 69; PULSE 74; PULSE 78; RESP 18; TEMP 36.8; TEMP 37.1; O2SAT 97; O2SAT 98; BMI 31.2
--- NOTE | 2023-06-09 12:08 | PC.NURSE ---
pt a&ox3. respirations even and unlabored. pt reporting pain in bilateral feet when walking since thursday. pt reports swelling in bilateral calves, ankles and feet as well as the right hand. pt has +1 pitting edema bilaterally in the legs. +pedal pulses bilaterally. pt reports at rest the pain in his feet subsides. pt denies nausea, vomiting and chest pain. normal sinus on tele.
--- NOTE | 2023-06-09 12:29 | ECG_ITS ---
Test Reason : edema Blood Pressure : / mmHG Vent. Rate : 059 BPM Atrial Rate : 059 BPM P-R Int : 150 ms QRS Dur : 094 ms QT Int : 368 ms P-R-T Axes : 001 011 -06 degrees QTc Int : 364 ms Sinus bradycardia Incomplete right bundle branch block Nonspecific T wave abnormality Abnormal ECG When compared with ECG of 18-FEB-2023 17:17, QT has shortened Referred By: Manisha Tran Electronically Signed By:JR PRASAD
--- NOTE | 2023-06-09 12:37 | ED.EXTPRO ---
HPI - Extremity Problem General Chief complaint: Extremity Problem Stated complaint: ankles and right hand swelling Time Seen by Provider: 06/09/23 12:09 Source: patient and old records reviewed Mode of arrival: ambulatory Limitations: no limitations History of Present Illness HPI Narrative: 62 yo male with hx of prior substance abuse states he no longer uses, PTSD, anxiety, MDD, ETOH abuse, RICARDO, osteomyelitis of L great toe comes in after noticing his legs around the ankles and feet have been swollen and his R hand is slightly swollen and sore. He has no hx of diuretic use. He does walk in the heat for 2 to 3 hours a day. He has no fevers, rash or tick bites. No orthopnea, dyspnea, chest pain. He did sleep in a recliner the past few nights. No hx of DVT in past MD Complaint: extremity pain and extremity swelling Onset (ago): day(s) (3) Pain Consistency: constant Location: left, right and lower extremity Quality: aching Radiation: none Relieving factors: immobilization Exacerbating factors: palpation Associated symptoms: denies other symptoms Context: other (slept in a recliner) Related Data Home Medications Medication Instructions Recorded Confirmed aspirin 81 mg tablet,delayed 81 mg PO DAILY 11/11/21 02/21/23 release atorvastatin 20 mg tablet 20 mg PO BEDTIME 11/11/21 02/21/23 omeprazole 20 mg capsule,delayed 20 mg PO DAILY 11/11/21 02/21/23 release propranolol 10 mg tablet 10 mg PO BID PRN Anxiety 11/11/21 02/21/23 venlafaxine 150 mg 1 cap PO DAILY 01/23/22 02/21/23 capsule,extended release 24 hr fenofibrate 160 mg tablet 160 mg PO DAILY 05/23/22 02/21/23 metformin 500 mg tablet 250 mg PO BID 06/23/22 02/21/23 clonazepam 1 mg tablet 1 mg PO TID PRN Anxiety 02/18/23 02/21/23 Previous Rx's Medication Instructions Recorded nicotine 21 mg/24 hr daily 21 mg transdermal DAILY #30 ea 11/22/21 transdermal patch acetaminophen 325 mg tablet 650 mg PO Q6H PRN Pain, Mild (Pain 02/20/23 Scale 1-3) #30 tabs amlodipine 5 mg tablet 5 mg PO DAILY #30 tabs 02/20/23 insulin lispro 100 unit/mL See Protocol subcut QIDACHS #1 mL 02/20/23 subcutaneous solution (Humalog U-100 Insulin) lisinopril 10 mg tablet 10 mg PO DAILY #30 tabs 02/20/23 lisinopril 10 mg tablet 10 mg PO DAILY #30 tabs 02/24/23 olanzapine 5 mg tablet 5 mg PO BID #60 tabs 02/24/23 venlafaxine 37.5 mg 37.5 mg PO DAILY #30 caps 02/24/23 capsule,extended release 24 hr Allergies Allergy/AdvReac Type Severity Reaction Status Date / Time codeine [CODEINE] AdvReac Severe Nausea Verified 06/09/23 12:04 Review of Systems Review of Systems: Constitutional : No Fever, No Chills ENT/Mouth : No sore throat, No Rhinorrhea, No Swallowing Difficulty Eyes: No Eye Pain, No Swelling, No Redness Cardiovascular : No Chest Pain, no SOB, No Orthopnea, positive edema Respiratory : No Cough, No Sputum, No Wheezing, positive dyspnea Gastrointestinal : No Nausea, No Vomiting, No Diarrhea, No abdominal Pain, No Hematochezia, No Melena Genitourinary : No Dysuria, No Urinary Frequency, No Hematuria Musculoskeletal : pos joint pain, No Myalgias Skin : No Skin Lesions, No rash Neuro : No Weakness, No Numbness, No Dizziness, No Headache Psych : No Anxiety/Panic, No Depression Heme/Lymph: No Bruising, No Lymphadenopathy Endocrine : No Polyuria, No Polydipsia All other systems reviewed and are negative PMFSH Past Medical History Attestation statement: The following information was validated with the patient. Medical History Amputation finger Anxiety Cannabis abuse Chronic renal insufficiency Cocaine abuse Depression Diabetes GERD (gastroesophageal reflux disease) H/O ETOH abuse HTN (hypertension) Hyperlipidemia Osteomyelitis Panic attacks PTSD (post-traumatic stress disorder) Smoker Surgical History H/O colonoscopy History of carpal tunnel release of both wrists Hx of foot surgery Family History Family History Other No family history of coronary artery disease Social History Social History Household Members: Unknown / Unable to assess Household Members Other:: Self Housing: Unknown / Unable to assess Housing Other:: lives in basement of a home Unable to assess alcohol history related to: Refusing to respond Alcohol intake: never Patient Tobacco Use Status: Current everyday Tobacco user Tobacco use type: Cigarette Cigarette Packs Per Day: 0.5 Cigarettes Per Day: 10.0 Years Smoked: 28 Smoked in Last 30 Days: Yes Use of substances other than those prescribed or required for medical reasons: Yes Substance Use Type: Marijuana Last Used Substance: Hours (ago) Advance Directives: Yes Advance Directives on File: Yes Advance Directives Date on File: 06/24/22 service: Yes (Pt was in the [employer].) Current occupational status: disabled Sexual orientation: Straight/Heterosexual Physical Exam Vital Signs: Vital Signs: Last Vital Signs Temp 98.8 F 06/09/23 11:57 Pulse 69 06/09/23 11:57 Resp 18 06/09/23 11:57 BP 100/59 L 06/09/23 11:57 Pulse Ox 98 06/09/23 11:57 O2 Del Method Room Air 06/09/23 11:57 BMI result Body Mass Index 31.2 Appearance: Alert. Oriented X3. No acute distress. Eyes: Pupils equal, round and reactive to light. ENT: Pharynx normal. Neck: Normal inspection. Neck supple. CVS: Normal heart rate and rhythm. Pulses normal. Respiratory: No respiratory distress. Breath sounds normal. Abdomen: Soft and non-tender. Skin: Skin warm and dry. Normal skin color. Normal skin turgor. Extremities: 1+ LE edema foot to ankle normal skin exam no signs of infection pulses intact, R hand mild swelling dorsum of hand but no signs of infection Neuro: Oriented X 3. No motor deficit. No sensory deficit. Medications Administered Generic Name Dose Route Start Last Admin Trade Name Freq PRN Reason Stop Dose Admin Magnesium Sulfate 2 gm in 50 mls @ 25 mls/hr 06/09/23 13:31 06/09/23 13:53 Magnesium Sulfate/H2o IV 06/09/23 15:30 25 mls/hr ONCE ONE Administration Medical Decision Making Medical Decision Making [facility] Narrative: 62 yo male with hx of prior substance abuse states he no longer uses, PTSD, anxiety, MDD, ETOH abuse, RICARDO, osteomyelitis of L great toe here with c/o leg edema but no other CHF symptoms no prior hx of DVT at this time will obtain labs, EKG, DVT study. I suspect he has dependent edema due to being in recliner. Will likely need compression stockings and 2 days of lasix if negative workup. He also c/o R hand pain xray ordered, no signs of infection and NV intact. Differential Diagnosis Differential Diagnoses: The differential diagnosis associated with the presentation includes dependent edema, DVT, RICARDO, liver dysfunction Admission/Observation Consideration of admission/observation: Escalation of care including admission/observation considered can be managed as outpatient with compression stocking and oral medications Lab Data MDM Lab Attestation statement: I reviewed the patient's lab results. H/H lower than baseline no GIB symptoms will trend at home - panycytopenia at baseline on this CBC not just anemia 06/09/23 12:49 06/09/23 12:49 Labs: Lab Results 06/09/23 06/09/23 06/09/23 Range/Units 12:49 12:49 12:49 WBC 9.2 (4.8-10.8) X10*3/uL RBC 4.05 L D (4.60-5.80) X10*6/uL Hgb 12.5 L D (14.0-18.0) g/dl Hct 36.7 L D (42.0-52.0) % MCV 90.6 (80.0-98.0) fL MCH 30.9 (27.0-33.0) pg MCHC 34.1 (31.0-36.0) g/dl RDW 13.0 (11.0-16.0) % Plt Count 240 (160-400) X10*3/uL MPV 9.7 (9.4-12.4) fL Immature Gran % (Auto) 0.7 H (0.0-0.4) % Neut % (Auto) 65.4 (45-73) % Lymph % (Auto) 23.4 (20-40) % [place] % (Auto) 7.9 (2-11) % Eos % (Auto) 2.1 (0-4) % Baso % (Auto) 0.5 (0-2) % Lymph # (Auto) 2.2 (1.2-4.9) X10*3/uL [place] # (Auto) 0.7 (0.1-1.2) X10*3/uL Eos # (Auto) 0.2 (0.0-0.4) X10*3/uL Baso # (Auto) 0.1 (0.0-0.2) X10*3/uL Abs Immat Gran (auto) 0.06 H (0.00-0.03) X10*3/uL Absolute Neuts (auto) 6.0 (2.0-8.3) x10*3/uL Absolute Nucleated RBC 0.000 (0.0-0.012) X10*3/uL Nucleated RBC % (auto) 0.0 (0.0-0.2) /100WBC Sodium 141 (135-145) mmol/L Potassium 3.9 (3.3-5.1) mmol/L Chloride 109 H (96-108) mmol/L Carbon Dioxide 27 (22-29) mmol/L Anion Gap 9 L (12-20) BUN 11 (9-16) mg/dL Creatinine 1.14 (0.5-1.4) mg/dL Estim Creat Clear Calc 75.2 Estimated GFR > 60 Random Glucose 74 (60-115) mg/dL Calcium 8.6 (8.4-10.2) mg/dL Magnesium 1.0 L* (1.6-2.6) mg/dL Total Bilirubin 0.2 (0.0-1.0) mg/dL Direct Bilirubin < 0.2 (0.0-0.5) mg/dL AST 19 (5-37) U/L ALT 16 (0-40) U/L Alkaline Phosphatase 17 L (39-117) U/L Troponin I High Sens < 2.7 D (<3.5-35.0) ng/L B-Natriuretic Peptide (<100) pg/mL Total Protein 5.6 L (6.5-8.0) g/dL Albumin 3.3 L (3.5-5.0) g/dL 06/09/23 Range/Units 12:49 WBC (4.8-10.8) X10*3/uL RBC (4.60-5.80) X10*6/uL Hgb (14.0-18.0) g/dl Hct (42.0-52.0) % MCV (80.0-98.0) fL MCH (27.0-33.0) pg MCHC (31.0-36.0) g/dl RDW (11.0-16.0) % Plt Count (160-400) X10*3/uL MPV (9.4-12.4) fL Immature Gran % (Auto) (0.0-0.4) % Neut % (Auto) (45-73) % Lymph % (Auto) (20-40) % [place] % (Auto) (2-11) % Eos % (Auto) (0-4) % Baso % (Auto) (0-2) % Lymph # (Auto) (1.2-4.9) X10*3/uL [place] # (Auto) (0.1-1.2) X10*3/uL Eos # (Auto) (0.0-0.4) X10*3/uL Baso # (Auto) (0.0-0.2) X10*3/uL Abs Immat Gran (auto) (0.00-0.03) X10*3/uL Absolute Neuts (auto) (2.0-8.3) x10*3/uL Absolute Nucleated RBC (0.0-0.012) X10*3/uL Nucleated RBC % (auto) (0.0-0.2) /100WBC Sodium (135-145) mmol/L Potassium (3.3-5.1) mmol/L Chloride (96-108) mmol/L Carbon Dioxide (22-29) mmol/L Anion Gap (12-20) BUN (9-16) mg/dL Creatinine (0.5-1.4) mg/dL Estim Creat Clear Calc Estimated GFR Random Glucose (60-115) mg/dL Calcium (8.4-10.2) mg/dL Magnesium (1.6-2.6) mg/dL Total Bilirubin (0.0-1.0) mg/dL Direct Bilirubin (0.0-0.5) mg/dL AST (5-37) U/L ALT (0-40) U/L Alkaline Phosphatase (39-117) U/L Troponin I High Sens (<3.5-35.0) ng/L B-Natriuretic Peptide 33 (<100) pg/mL Total Protein (6.5-8.0) g/dL Albumin (3.5-5.0) g/dL Independent Interpretation I performed an independent interpretation of an: EKG and Ultrasound (no DVT) Interpretation: Rate: 59 Rhythm: sinus bradycardia Lynch: normal Normal P waves. Normal NARGIS. Normal QRS complex. ST T wave : nonspecific ST T wave changes lateral leads qTC: normal prior studies: no acute ischemia The study has been interpreted contemporaneously by me. . Radiology Impression Discussion of test interpretation with radiology: I have reviewed the radiologist's reading. External Record Review External record reviewed: Inpatient record Prescription Management I considered prescription management with: Other (lasix considered but BP low and can be managed with elevation and stockings) Discharge Plan Discharge Clinical Impression: Leg edema, Hypomagnesemia Patient Disposition: Home, Self-Care Instructions: Leg Edema (ED), Hypomagnesemia (ED) Additional Instructions: wear compressive stocking and sleep in a bed with legs elevated for the next 3 days. return for worsening pain, swelling, fevers, rash or any other concerns. if no improvement with these measures may need a water pill to get fluid off but given your blood pressure is low at baseline will hold off and try tight fitting socks like soccer socks. your blood counts are slightly lower than usual - please monitor for black or bloody stools repeat blood counts - CBC in 2 days. your magnesium was low we repleted it. US/US venous duplex LE BI IMPRESSION: No DVT demonstrated in the bilateral lower extremity. ? Small right Cortez's cyst measuring 4.2 cm in maximum dimension. Prescriptions: No Action venlafaxine 150 mg capsule,extended release 24hr 1 cap PO DAILY fenofibrate 160 mg Tablet 160 mg PO DAILY metformin 500 mg Tablet 250 mg PO BID atorvastatin 20 mg Tablet 20 mg PO BEDTIME propranolol 10 mg Tablet 10 mg PO BID PRN (Reason: Anxiety) omeprazole 20 mg Capsule,Delayed Release(Dr/Ec) 20 mg PO DAILY aspirin 81 mg Tablet,Delayed Release (Dr/Ec) 81 mg PO DAILY nicotine 21 mg/24 hr Patch 24 Hour 21 mg transdermal DAILY Qty: 30 0RF clonazepam 1 mg tablet 1 mg PO TID PRN (Reason: Anxiety) acetaminophen 325 mg Tablet 650 mg PO Q6H PRN (Reason: Pain, Mild (Pain Scale 1-3)) Qty: 30 0RF amlodipine 5 mg Tablet 5 mg PO DAILY Qty: 30 0RF Protocol: Hold for SBP< HOLD for SBP < : 90 lisinopril 10 mg Tablet 10 mg PO DAILY Qty: 30 0RF Protocol: Hold for SBP< HOLD for SBP < : 90 insulin lispro [Humalog U-100 Insulin] 100 unit/mL Solution See Protocol subcut QIDACHS Qty: 1 0RF Protocol: Insulin Correction Scale Less than or equal to 110 ---- Give (units): 0 111 to 150 Give (units): 0 151 to 200 Give (units): 2 201 to 250 Give (units): 4 251 to 300 Give (units): 6 301 to 350 Give (units): 8 Greater than 350 Give (units): 10 Call MD if Blood Glucose > : 350 olanzapine 5 mg Tablet 5 mg PO BID Qty: 60 0RF lisinopril 10 mg Tablet 10 mg PO DAILY Qty: 30 0RF Protocol: Hold for SBP< HOLD for SBP < : 90 venlafaxine 37.5 mg capsule,extended release 24hr 37.5 mg PO DAILY Qty: 30 0RF
[2023-06-09 12:53] LABS: MANUAL DIFF FLAG NO
[2023-06-09 12:56] LABS: Basophils Absolute Auto 0.1 X10*3/uL (0.0-0.2); Basophils Percent Auto 0.5 % (0-2); Eosinophils Absolute Auto 0.2 X10*3/uL (0.0-0.4); Eosinophils Percent Auto 2.1 % (0-4); Hematocrit 36.7 % (42.0-52.0); Hemoglobin 12.5 g/dl (14.0-18.0); Imm Gran Abs Auto 0.06 X10*3/uL (0.00-0.03); Imm Gran Pct Auto 0.7 % (0.0-0.4); Lymphocytes Absolute Auto 2.2 X10*3/uL (1.2-4.9); Lymphocytes Percent Auto 23.4 % (20-40); Mean Corpuscular HGB Conc 34.1 g/dl (31.0-36.0); Mean Corpuscular Hemoglobin 30.9 pg (27.0-33.0); Mean Corpuscular Volume 90.6 fL (80.0-98.0); Mean Platelet Volume 9.7 fL (9.4-12.4); Monocytes Absolute Auto 0.7 X10*3/uL (0.1-1.2); Monocytes Percent Auto 7.9 % (2-11); Neutrophils Percent Auto 65.4 % (45-73); Platelet Count 240 X10*3/uL (160-400); Red Blood Count 4.05 X10*6/uL (4.60-5.80); White Blood Count 9.2 X10*3/uL (4.8-10.8)
[2023-06-09 13:16] LABS: B Type Natriuretic Peptide 33 pg/mL (<100)
[2023-06-09 13:32] LABS: Alanine Aminotransferase 16 U/L (0-40); Albumin Level 3.3 g/dL (3.5-5.0); Alkaline Phosphatase 17 U/L (39-117); Anion Gap 9 (12-20); Aspartate Amino Transferase 19 U/L (5-37); Bilirubin Direct < 0.2 mg/dL (0.0-0.5); Bilirubin Total 0.2 mg/dL (0.0-1.0); Blood Urea Nitrogen 11 mg/dL (9-16); Calcium 8.6 mg/dL (8.4-10.2); Carbon Dioxide 27 mmol/L (22-29); Chloride 109 mmol/L (96-108); Creatinine Clr Calc Pharmacy 75.2; Estimated Glomerular Filt Rate > 60; Glucose Random 74 mg/dL (60-115); Potassium 3.9 mmol/L (3.3-5.1); Sodium 141 mmol/L (135-145); Total Protein 5.6 g/dL (6.5-8.0)
[2023-06-09 13:47] LABS: Troponin-I High Sensitivity < 2.7 ng/L (<3.5-35.0)
[2023-06-09] MEDS: Magnesium Sulfate/H2O 2 GM/50 ML PIGGYBACK IV (13:53)
--- NOTE | 2023-06-09 14:03 | PC.NURSE ---
mag infusion started per order, pt requesting per order- provider ok'd pt to have po, pt given po per his request.
[2023-06-09 16:05] VITALS: BP 105/59; PULSE 80; RESP 18; O2SAT 97
[2023-06-11 13:13] LABS: Lyme Abs Screen <0.90 index
== END 2023-06-09 16:07 | disposition home or self-care (01) ==
PROVIDERS: Emergency Provider Emergency Medicine; PCP Physician Assistant Medical
DX: R60.0 Localized edema (principal); E83.42 Hypomagnesemia; M79.641 Pain in right hand; R00.1 Bradycardia, unspecified; Z79.899 Other long term (current) drug therapy
CPT/HCPCS: 36415; 73130; 80048; 80076; 83735; 83880; 84484; 85025; 86617; 86618; 93005; 93970; 96374; 99284; 99285; J3475

== ENCOUNTER 2023-08-20 18:12 | Inpatient (IN) | payer OTHER, SELFPAY ==
--- NOTE | ~2023-08-20 | XR_ITS ---
EXAMINATION: CHEST 2 VIEWS CLINICAL INFORMATION: cough, SOB. COMPARISON: 02/18/2023. TECHNIQUE: PA and lateral views of the chest obtained. FINDINGS: The lungs are well expanded. No focal infiltrate, effusion, edema, or pneumothorax. Cardiac and mediastinal silhouettes are within normal limits for technique. No acute bony abnormality seen XR/XR chest 2V IMPRESSION: No evidence of acute disease
[2023-08-20 18:25] VITALS: RESP 16; BMI 35.0
[2023-08-20 18:27] VITALS: BP 105/84; PULSE 89; TEMP 36.9; O2SAT 98
--- NOTE | 2023-08-20 18:32 | ED.PSYCH ---
HPI - Psych General Chief Complaint: Psychiatric Symptoms Stated Complaint: crisis, panic attack Time Seen by Provider: 08/20/23 18:29 Source: patient Mode of arrival: EMS Limitations: no limitations History of Present Illness HPI Narrative: patient is a 63-year-old male who presents to the emergency department for evaluation of a panic attack. He states that he was feeling increasingly anxious regarding the longevity of this illness . He states that he traveled to [place] this past weekend for a . He traveled by car. Four days ago he was experiencing nasal congestion, cough, nausea, shortness of breath, chills. reports his symptoms significantly improved the following day after that. But then yesterday his symptoms had returned and had progressively worsened again. Reports nasal congestion, productive cough with yellow phlegm, previously short of breath but not at this time, reports pain to the bilateral lower lateral chest only when coughing, nausea but no vomiting. Denies anterior chest pain, shortness of breath at this time. Denies headache, neck pain, dizziness, lightheadedness, vision changes. He felt a panic attack arising prior to arrival which prompted him to call EMS. He took a dose of Klonopin prior to arrival to the hospital which she feels is helping some. He also states he ran out of his olanzapine 7 days ago, he is awaiting his provider to send a refill. Related Data Home Medications Medication Instructions Recorded Confirmed atorvastatin 20 mg tablet 20 mg PO BEDTIME 11/11/21 08/20/23 propranolol 10 mg tablet 10 mg PO BID PRN Anxiety 11/11/21 08/20/23 venlafaxine 150 mg 1 cap PO DAILY 01/23/22 08/20/23 capsule,extended release 24 hr clonazepam 1 mg tablet 1 mg PO TID PRN Anxiety 02/18/23 08/21/23 Previous Rx's Medication Instructions Recorded nicotine 21 mg/24 hr daily 21 mg transdermal DAILY #30 ea 11/22/21 transdermal patch olanzapine 5 mg tablet 5 mg PO BID #60 tabs 02/24/23 venlafaxine 37.5 mg 37.5 mg PO DAILY #30 caps 02/24/23 capsule,extended release 24 hr Allergies Allergy/AdvReac Type Severity Reaction Status Date / Time codeine [CODEINE] AdvReac Severe Nausea Verified 06/09/23 12:04 Review of Systems Review of Systems: Yes all other systems are reviewed and are negative PMFSH Past Medical History Attestation statement: The following information was validated with the patient. Source: old records reviewed Medical History Cannabis abuse Cocaine abuse PTSD (post-traumatic stress disorder) Anxiety Hyperlipidemia Depression Osteomyelitis Panic attacks HTN (hypertension) GERD (gastroesophageal reflux disease) Chronic renal insufficiency H/O ETOH abuse Smoker Amputation finger Diabetes Surgical History History of carpal tunnel release of both wrists Hx of foot surgery H/O colonoscopy Family History Family History Other No family history of coronary artery disease Social History Social History Household Members: Unknown / Unable to assess Household Members Other:: Self Housing: Unknown / Unable to assess Housing Other:: lives in basement of a home Unable to assess alcohol history related to: Refusing to respond Alcohol intake: never Patient Tobacco Use Status: Current everyday Tobacco user Tobacco use type: Cigarette Cigarette Packs Per Day: 0.5 Cigarettes Per Day: 10.0 Years Smoked: 28 Smoked in Last 30 Days: No Use of substances other than those prescribed or required for medical reasons: No Substance Use Type: Marijuana Advance Directives: Yes Advance Directives on File: Yes Advance Directives Date on File: 06/24/22 Healthcare Proxy: No Guardian: No service: Yes Current occupational status: disabled Sexual orientation: Straight/Heterosexual Physical Exam Vital Signs: Vital Signs: Last Vital Signs Temp 98.4 F 08/20/23 18:27 Pulse 89 08/20/23 18:27 Resp 18 08/21/23 14:19 BP 105/84 08/20/23 18:27 Pulse Ox 98 08/20/23 18:27 O2 Del Method Room Air 08/20/23 18:27 BMI result Body Mass Index 35.0 Course Course Course Narrative: Physician observation continued. no acute events overnight, meds restarted, likely inpatient upstairs pending today if bed available, VS stable. Medications Administered Generic Name Dose Route Start Last Admin Trade Name Freq PRN Reason Stop Dose Admin Clonazepam 1 mg 08/21/23 08:58 08/21/23 10:26 Clonazepam 1 Mg Tablet PO 1 mg TID PRN Administration Anxiety Nicotine 21 mg 08/21/23 09:00 08/21/23 10:25 Nicotine 21 Mg Patch.[id number] TRANSDERMA 21 mg DAILY KIM Administration Olanzapine 5 mg 08/21/23 10:30 08/21/23 10:26 Olanzapine 5 Mg Tablet PO 5 mg BID KIM Administration Venlafaxine HCl 37.5 mg 08/21/23 10:30 08/21/23 10:26 Venlafaxine Hcl Er 37.5 Mg Cap.Er.24h PO 37.5 mg DAILY KIM Administration Venlafaxine HCl 150 mg 08/21/23 10:30 08/21/23 10:26 Venlafaxine Hcl Er 150 Mg Cap.Er.24h PO 150 mg DAILY KIM Administration Medical Decision Making Medical Decision Making [facility] Narrative: patient is a 63-year-old male past medical history of anxiety, major depressive disorder, polysubstance use disorder, bipolar disorder presenting to the emergency department With recent viral symptoms subsequently resulting in anxiety and panic attack as per HPI. At the time my examination patient is overall well-appearing, nontoxic, afebrile. Abdominal examination is benign. No respiratory distress. He is feeling improvement in his anxiety simply being here in the emergency department. obtained serum labs; mild leukocytosis of 1 12.8, overall unremarkable CMP, lipase within normal limits. Urinalysis without evidence of infection. Toxicology is positive for benzodiazepines (likely secondary to prescription usage), COVID-19 and influenza testing are negative. chest x-ray is without acute cardiopulmonary process. Suspect viral syndrome as etiology for his symptoms. he is tolerating oral intake, no distress. Differential Diagnosis Differential Diagnoses: The differential diagnosis associated with the presentation includes ( anxiety, panic attack, medication noncompliance, polysubstance use) Admission/Observation Consideration of admission/observation: Escalation of care including admission/observation considered ( Section 12 inpatient bed search evaluated by care team. Placed in position observation while bedsearch ) Consult Healthcare Provider Management of the patient was discussed with: Behavioral Health Provider ( care team) Lab Data [facility] Lab Attestation statement: I reviewed the patient's lab results. ( as noted above) 08/20/23 19:13 08/20/23 19:13 Labs: Lab Results 08/20/23 08/20/23 Range/Units 19:13 19:14 WBC 12.8 H (4.8-10.8) X10*3/uL RBC 5.41 D (4.60-5.80) X10*6/uL Hgb 17.0 D (14.0-18.0) g/dl Hct 48.8 D (42.0-52.0) % MCV 90.2 (80.0-98.0) fL MCH 31.4 (27.0-33.0) pg MCHC 34.8 (31.0-36.0) g/dl RDW 13.2 (11.0-16.0) % Plt Count 273 (160-400) X10*3/uL MPV 10.7 (9.4-12.4) fL Immature Gran % (Auto) 0.5 H (0.0-0.4) % Neut % (Auto) 73.3 H (45-73) % Lymph % (Auto) 15.6 L (20-40) % [place] % (Auto) 9.2 (2-11) % Eos % (Auto) 0.9 (0-4) % Baso % (Auto) 0.5 (0-2) % Lymph # (Auto) 2.0 (1.2-4.9) X10*3/uL [place] # (Auto) 1.2 (0.1-1.2) X10*3/uL Eos # (Auto) 0.1 (0.0-0.4) X10*3/uL Baso # (Auto) 0.1 (0.0-0.2) X10*3/uL Abs Immat Gran (auto) 0.07 H (0.00-0.03) X10*3/uL Absolute Neuts (auto) 9.4 H (2.0-8.3) x10*3/uL Absolute Nucleated RBC 0.000 (0.0-0.012) X10*3/uL Nucleated RBC % (auto) 0.0 (0.0-0.2) /100WBC Sodium 139 (135-145) mmol/L Potassium 3.9 (3.3-5.1) mmol/L Chloride 102 (96-108) mmol/L Carbon Dioxide 25 (22-29) mmol/L Anion Gap 16 (12-20) BUN 16 (9-16) mg/dL Creatinine 1.34 (0.5-1.4) mg/dL Estim Creat Clear Calc 66.9 Estimated GFR 54 Random Glucose 139 H (60-115) mg/dL Calcium 9.7 D (8.4-10.2) mg/dL Total Bilirubin 0.4 (0.0-1.0) mg/dL AST 24 (5-37) U/L ALT 33 (0-40) U/L Alkaline Phosphatase 29 L (39-117) U/L Total Protein 7.6 (6.5-8.0) g/dL Albumin 4.5 (3.5-5.0) g/dL Lipase 32 (8-78) U/L Urine Color Dark Yellow Urine Appearance Turbid Urine pH 5.5 (5.0-9.0) Ur Specific [place] >= 1.030 H (1.005-1.025) Urine Protein 300 (3+) H (Neg-Trace) mg/dL Urine Glucose (UA) Negative (Negative) mg/dL Urine Ketones Trace (Negative) mg/dL Urine Blood Negative (Negative) Urine Nitrite Negative (Negative) Ur Leukocyte Esterase Negative (Negative) Urine RBC 3-5 H (0-2) /HPF Urine WBC 0-5 (0-5) /HPF Ur Squamous Epith Cells 3-5 (0-2) /HPF Calcium Oxalate Crystal Present Urine Bacteria None Seen (None Seen) Hyaline Casts 6-10 (0-2) /LPF Salicylates < 5.0 L (15-30) mg/dL Urine Opiates Screen Not Detected (Not Detect) Urine Fentanyl Screen Not Detected (Not Detect) Acetaminophen < 3 (<30) mcg/mL Ur Barbiturates Screen Not Detected (Not Detect) Ur Phencyclidine Scrn Not Detected (Not Detect) Ur Amphetamines Screen Not Detected (Not Detect) U Benzodiazepines Scrn POSITIVE H (Not Detect) Urine Cocaine Screen Not Detected (Not Detect) U Marijuana (THC) Screen POSITIVE H (Not Detect) Ethyl Alcohol < 10 mg/dL COVID-19 (RG) Negative (Negative) COVID-19 Clin Com See Note Influenza Type A (EBONY) Negative (Negative) Influenza Type B (EBONY) Negative (Negative) Influenza A & B Note See Note Independent Interpretation I performed an independent interpretation of an: Plain X-Ray ( I personally interpreted chest x-ray and agree with radiologist impression) Radiology Impression Discussion of test interpretation with radiology: I have reviewed the radiologist's reading. Radiologist Impression: XR/XR chest 2V IMPRESSION: No evidence of acute disease Discharge Plan Discharge Clinical Impression: Anxiety attack, Acute viral syndrome Patient Disposition: Still a Patient Prescriptions: No Action venlafaxine 150 mg capsule,extended release 24hr 1 cap PO DAILY atorvastatin 20 mg Tablet 20 mg PO BEDTIME propranolol 10 mg Tablet 10 mg PO BID PRN (Reason: Anxiety) nicotine 21 mg/24 hr Patch 24 Hour 21 mg transdermal DAILY Qty: 30 0RF clonazepam 1 mg tablet 1 mg PO TID PRN (Reason: Anxiety) olanzapine 5 mg Tablet 5 mg PO BID Qty: 60 0RF venlafaxine 37.5 mg capsule,extended release 24hr 37.5 mg PO DAILY Qty: 30 0RF Interventions: Chase-Suicide Risk Severity Scale Last Done: 08/21/23 14:19
--- NOTE | 2023-08-20 18:50 | PC.NURSE ---
patient arrived via ems. Patient stated he had a panic attack that wouldn't stop so he called EMS. patient denies SI/HI/AH/VH. Patient denies illicit drug use and denies ETOH use. Patient oriented to unit, belongings put in locker 6.
[2023-08-20 19:21] LABS: MANUAL DIFF FLAG NO
[2023-08-20 19:26] LABS: Appearance Urine Turbid; Color Urine Dark Yellow; Glucose Urine UA Negative (Negative); Leukocyte Esterase Urine Negative (Negative); Nitrite Urine Negative (Negative); PH 5.5 (5.0-9.0); Specific Gravity - Urine >= 1.030 (1.005-1.025); UMIC TRIGGER UACC YES; Urine Blood Negative (Negative); Urine Ketones Trace mg/dL (Negative); Urine Protein 300 (3+) mg/dL (Neg-Trace)
[2023-08-20 19:34] LABS: Amphetamine Screen Urine Not Detected (Not Detect); Barbiturates, Urine Not Detected (Not Detect); Benzodiazepines Screen Urine POSITIVE (Not Detect); Cannabinoid Screen Urine POSITIVE (Not Detect); Cocaine Screen Urine Not Detected (Not Detect); Fentanyl, urine Not Detected (Not Detect); Opiate Screen Urine Not Detected (Not Detect); Phencyclidine Screen Urine Not Detected (Not Detect)
[2023-08-20 19:41] LABS: COVID-19 Test Negative (Negative); IDNOW Serial# 08D9AD1C; IDNOW Serial# BCCEAD1C; Influenza A Negative (Negative); Influenza B2 Negative (Negative)
[2023-08-20 19:43] LABS: Lipase 32 U/L (8-78)
[2023-08-20 19:44] LABS: Bacteria Urine None Seen (None Seen); Calcium Oxalate Crystals Urine Present; WBC Urine 0-5 /HPF (0-5)
[2023-08-20 19:48] LABS: Acetaminophen LAB < 3 mcg/mL (<30); Alanine Aminotransferase 33 U/L (0-40); Albumin Level 4.5 g/dL (3.5-5.0); Alkaline Phosphatase 29 U/L (39-117); Anion Gap 16 (12-20); Aspartate Amino Transferase 24 U/L (5-37); Bilirubin Total 0.4 mg/dL (0.0-1.0); Blood Urea Nitrogen 16 mg/dL (9-16); Calcium 9.7 mg/dL (8.4-10.2); Carbon Dioxide 25 mmol/L (22-29); Chloride 102 mmol/L (96-108); Creatinine Clr Calc Pharmacy 66.9; Estimated Glomerular Filt Rate 54; Ethanol < 10 mg/dL; Glucose Random 139 mg/dL (60-115); Potassium 3.9 mmol/L (3.3-5.1); Salicylate < 5.0 mg/dL (15-30); Sodium 139 mmol/L (135-145); Total Protein 7.6 g/dL (6.5-8.0)
[2023-08-20 19:52] LABS: Basophils Absolute Auto 0.1 X10*3/uL (0.0-0.2); Basophils Percent Auto 0.5 % (0-2); Eosinophils Absolute Auto 0.1 X10*3/uL (0.0-0.4); Eosinophils Percent Auto 0.9 % (0-4); Hematocrit 48.8 % (42.0-52.0); Imm Gran Abs Auto 0.07 X10*3/uL (0.00-0.03); Imm Gran Pct Auto 0.5 % (0.0-0.4); Lymphocytes Percent Auto 15.6 % (20-40); Mean Corpuscular HGB Conc 34.8 g/dl (31.0-36.0); Mean Corpuscular Hemoglobin 31.4 pg (27.0-33.0); Mean Corpuscular Volume 90.2 fL (80.0-98.0); Mean Platelet Volume 10.7 fL (9.4-12.4); Monocytes Absolute Auto 1.2 X10*3/uL (0.1-1.2); Monocytes Percent Auto 9.2 % (2-11); Neutrophils Absolute Auto 9.4 x10*3/uL (2.0-8.3); Neutrophils Percent Auto 73.3 % (45-73); Platelet Count 273 X10*3/uL (160-400); Red Blood Count 5.41 X10*6/uL (4.60-5.80); Red Cell Distribution Width 13.2 % (11.0-16.0); White Blood Count 12.8 X10*3/uL (4.8-10.8)
--- NOTE | 2023-08-21 01:10 | PC.NURSE ---
pt assessed, reported feeling better , care team placed a section 12 on pt
--- NOTE | 2023-08-21 07:59 | ECG_ITS ---
Test Reason : CHECK PROLONG QT Blood Pressure : / mmHG Vent. Rate : 085 BPM Atrial Rate : 085 BPM P-R Int : 148 ms QRS Dur : 102 ms QT Int : 390 ms P-R-T Axes : 073 043 066 degrees QTc Int : 464 ms Normal sinus rhythm with sinus arrhythmia Possible Left atrial enlargement Incomplete right bundle branch block Abnormal ECG When compared with ECG of 09-JUN-2023 13:16, Nonspecific T wave abnormality no longer evident in Inferior leads Nonspecific T wave abnormality no longer evident in Lateral leads Heart rate has increased Referred By: Generic ED Physician Electronically Signed By:ROSENDA GATES MD
--- NOTE | 2023-08-21 10:07 | PHA.MEDREC ---
Pharmacy Consult ? Medication Reconciliation Pharmacy has completed the medication reconciliation. Reviewed med rec done by nursing
[2023-08-21] MEDS: Nicotine 21 MG PATCH.TD24 TRANSDERMA (10:25)
[2023-08-21] MEDS: clonazePAM 1 MG TABLET PO ×2 (10:26→19:33)
[2023-08-21] MEDS: Venlafaxine HCl ER 150 MG CAP.ER.24H PO (10:26)
[2023-08-21] MEDS: OLANZapine 5 MG TABLET PO ×2 (10:26→19:33)
[2023-08-21] MEDS: Venlafaxine HCl ER 37.5 MG CAP.ER.24H PO (10:26)
--- NOTE | 2023-08-21 10:33 | PC.NURSE ---
patient stated they were feeling anxious this morning and requested a PRN. PRN given-pending effect
[2023-08-21 10:34] VITALS: RESP 18
[2023-08-21 14:19] VITALS: RESP 18
[2023-08-21 15:53] VITALS: BP 110/73; PULSE 98; RESP 18; TEMP 36.3; O2SAT 99
[2023-08-21] MEDS: Propranolol HCL 10 MG TABLET PO (15:59)
--- NOTE | 2023-08-21 16:40 | PC.NURSE ---
patient agreeable to going to the inpatient floor. Patient denies SI/HI/AH/VH. Patient compliant with medications. Patient took PRN propanolol with positive effect. Patient sent to for inpatient care.
[2023-08-21 16:55] VITALS: BP 140/84; PULSE 112; RESP 18; TEMP 36.8; O2SAT 95
[2023-08-21 18:36] VITALS: BMI 34.7
--- NOTE | 2023-08-21 18:36 | PC.ADMIT ---
Quintin arrived to the unit at 1644 on a Conditional Voluntary. Sharps check done by senior grant writer and male MHC. He was calm and pleasant, reported endorsing anxiety rated it a one, depression rated it a four, when asked if he had any thoughts of wanting to hurt or others self stated No, verbalized to seek out staff if urges to hurt self occurred. Quintin reported experiencing panic attacks, This time I decided not to wait to the last minute. He reported he was in [place] on a [employer] [place], he came back two days ago and was not feeling Well, I knew I needed help. He reports unable to identify current stressor he reports being out of his Olanzapine for a couple of days.
[2023-08-21] MEDS: traZODone HCL 50 MG TABLET PO (19:33)
[2023-08-21] MEDS: Atorvastatin Calcium 20 MG TABLET PO (19:33)
[2023-08-21] MEDS: hydrOXYzine HCL 25 MG TABLET PO (19:33)
[2023-08-22 08:10] VITALS: BP 138/82; PULSE 95; RESP 18; TEMP 36.9; O2SAT 93
[2023-08-22] MEDS: Venlafaxine HCl ER 150 MG CAP.ER.24H PO (08:32)
[2023-08-22] MEDS: Nicotine 21 MG PATCH.TD24 TRANSDERMA (08:32)
[2023-08-22] MEDS: OLANZapine 5 MG TABLET PO ×2 (08:32→18:29)
[2023-08-22] MEDS: Venlafaxine HCl ER 37.5 MG CAP.ER.24H PO (08:33)
[2023-08-22] MEDS: Propranolol HCL 10 MG TABLET PO ×2 (08:35→18:29)
[2023-08-22] MEDS: clonazePAM 1 MG TABLET PO ×2 (08:35→13:59)
[2023-08-22] MEDS: hydrOXYzine HCL 25 MG TABLET PO (08:37)
[2023-08-22] MEDS: Omeprazole 20 MG CAPSULE.DR PO ×2 (08:55→19:56)
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
[2023-08-22 16:05] VITALS: BP 125/90; PULSE 108; TEMP 36.7; O2SAT 97
[2023-08-22] MEDS: traZODone HCL 50 MG TABLET PO (18:28)
[2023-08-22] MEDS: Atorvastatin Calcium 20 MG TABLET PO (18:28)
[2023-08-22 18:29] VITALS: BP 124/78; PULSE 90
[2023-08-23] MEDS: Omeprazole 20 MG CAPSULE.DR PO (06:30)
[2023-08-23 07:55] VITALS: BP 157/80; PULSE 83; RESP 18; TEMP 35.9; O2SAT 97
[2023-08-23] MEDS: Nicotine 21 MG PATCH.TD24 TRANSDERMA (08:15)
[2023-08-23] MEDS: Propranolol HCL 10 MG TABLET PO (08:15)
[2023-08-23] MEDS: Venlafaxine HCl ER 37.5 MG CAP.ER.24H PO (08:16)
[2023-08-23] MEDS: OLANZapine 5 MG TABLET PO (08:16)
[2023-08-23] MEDS: Venlafaxine HCl ER 150 MG CAP.ER.24H PO (08:16)
[2023-08-23] MEDS: hydrOXYzine HCL 25 MG TABLET PO (08:16)
[2023-08-23] MEDS: clonazePAM 1 MG TABLET PO (08:16)
--- NOTE | 2023-08-23 10:18 | PM.PSYDC ---
DS: Providers Provider Date of Service: 08/23/23 Date of admission: 08/21/23 16:19 Date of discharge: 08/23/23 Primary care physician: EDWIGE Guo Attending physician on admission: Rah Cox Attending physician on discharge: Rah Cox DS: Diagnosis Discharge Diagnosis (1) MDD (major depressive disorder), recurrent episode, moderate: Status: Acute (2) PTSD (post-traumatic stress disorder): Status: Acute (3) Anxiety attack: Status: Acute DS: Medications Discharge Medications Home Medications: Home Medications Medication Instructions Recorded Confirmed atorvastatin 20 mg tablet 20 mg PO BEDTIME 11/11/21 08/20/23 propranolol 10 mg tablet 10 mg PO BID PRN Anxiety 11/11/21 08/20/23 venlafaxine 150 mg 1 cap PO DAILY 01/23/22 08/20/23 capsule,extended release 24 hr clonazepam 1 mg tablet 1 mg PO TID PRN Anxiety 02/18/23 08/21/23 Previous Rx's Medication Instructions Recorded nicotine 21 mg/24 hr daily 21 mg transdermal DAILY #30 ea 11/22/21 transdermal patch venlafaxine 37.5 mg 37.5 mg PO DAILY #30 caps 02/24/23 capsule,extended release 24 hr olanzapine 5 mg tablet 5 mg PO BID 30 days #60 tabs 08/23/23 omeprazole 20 mg capsule,delayed 20 mg PO BID@0630,1630 30 days #60 08/23/23 release caps Mental Status Exam Mental Status Exam Narrative: Pt is alert and oriented; behavior is cooperative, friendly and calm; patient is not in distress; dressed in casual attire, a little scruffy, but adequate hygiene; mood is described as good and affect congruent; eye contact appropriate; Speech is normal rate, volume and prosody and not pressured; no psychomotor agitation/retardation present; thought process is organized and goal directed; Thought content is on tx; otherwise pertinent to relevant topics and without any delusional content, paranoid ideations or grandiosity; denies any SI/HI. There is no evidence of perceptual disturbance and he denies AVH. Patients insight and judgment are intact. Data Data Completed and Pending Completed studies during hospitalization [Text1]: 08/20/23 08/20/23 19:13 19:14 WBC 12.8 H RBC 5.41 D Hgb 17.0 D Hct 48.8 D MCV 90.2 MCH 31.4 MCHC 34.8 RDW 13.2 Plt Count 273 MPV 10.7 Immature Gran % (Auto) 0.5 H Neut % (Auto) 73.3 H Lymph % (Auto) 15.6 L [place] % (Auto) 9.2 Eos % (Auto) 0.9 Baso % (Auto) 0.5 Lymph # (Auto) 2.0 [place] # (Auto) 1.2 Eos # (Auto) 0.1 Baso # (Auto) 0.1 Abs Immat Gran (auto) 0.07 H Absolute Neuts (auto) 9.4 H Absolute Nucleated RBC 0.000 Nucleated RBC % (auto) 0.0 Sodium 139 Potassium 3.9 Chloride 102 Carbon Dioxide 25 Anion Gap 16 BUN 16 Creatinine 1.34 Estim Creat Clear Calc 66.9 Estimated GFR 54 Random Glucose 139 H Calcium 9.7 D Total Bilirubin 0.4 AST 24 ALT 33 Alkaline Phosphatase 29 L Total Protein 7.6 Albumin 4.5 Lipase 32 Urine Color Dark Yellow Urine Appearance Turbid Urine pH 5.5 Ur Specific [place] >= 1.030 H Urine Protein 300 (3+) H Urine Glucose (UA) Negative Urine Ketones Trace Urine Blood Negative Urine Nitrite Negative Ur Leukocyte Esterase Negative Urine RBC 3-5 H Urine WBC 0-5 Ur Squamous Epith Cells 3-5 Calcium Oxalate Crystal Present Urine Bacteria None Seen Hyaline Casts 6-10 Salicylates < 5.0 L Urine Opiates Screen Not Detected Urine Fentanyl Screen Not Detected Acetaminophen < 3 Ur Barbiturates Screen Not Detected Ur Phencyclidine Scrn Not Detected Ur Amphetamines Screen Not Detected U Benzodiazepines Scrn POSITIVE H Urine Cocaine Screen Not Detected U Marijuana (THC) Screen POSITIVE H Ethyl Alcohol < 10 COVID-19 (RG) Negative COVID-19 Clin Com See Note Influenza Type A (EBONY) Negative Influenza Type B (EBONY) Negative Influenza A & B Note See Note Imaging Diagnostic Imaging Impressions Chest X-Ray 08/20/23 19:28 IMPRESSION: No evidence of acute disease DS: Summary Hospital Course Hospital Course: HPI: Patient is a 63-year-old , history of PTSD, depression anxiety, 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 Patient reports that since discharge this past February 2023, he has been doing well; anxiety continues as his court hearing keeps getting postponed but otherwise he has been stable. He has felt a little more down than usual due to some financial stuff that occurred recently but only mildly so and denies any SI. He ran out of Zyprexa and was trying to get a refill however he was off it for about 7 days. Patient started having unrelenting panic attacks there lasting hours; patient spent and equal number of hours in the shower, 1 of the only coping tools he has to dampen the panic. Patient was restarted on Zyprexa in the emergency room and reports he is feeling back to his regular self. Patient is grateful for admission and help but reports he is feeling good, calm, and would like to discharge soon because he has a long awaited podiatry appointment for past osteomyelitis early next week. Patient does not want any other medication changes and already has outpatient providers, with whom he has good rapport and pending appointments. Denies any SI or HI; denies any AVH; denies any drug or alcohol abuse, sober for over a decade. Impression Patient reports that having gotten back on Zyprexa in the emergency room he is return to his regular baseline and is feeling good. Asking for discharge as soon as possible so he will not miss an important outpatient appointment early next week. Patient presents with organized speech and behavior, he is calm, cooperative and friendly, with logical, linear thought process and thought content WNL. He denies any panic saying it is now resolved. Patient is in good behavioral and impulse control and appropriate with peers and staff; it appears he is in fact back to his baseline. Hospital course: Patient remained stable, in good mood, without panic, sleeping and eating well, in good behavioral and impulse control and appropriate with peers and staff. Patient has returned to baseline. He is asking for discharge because his podiatry appointment is scheduled for Thursday at 09:00 (patient has history of osteomyelitis left, great toe and this appointment is an essential part of his medical care). Panic attacks has resolved and patient is without any SI/HI, with established outpatient support already in place. District Superintendent can find no reason to keep patient on inpatient unit longer. He is not in imminent risk for harm to self or others and his request for discharge honored. Time spent discussing smoking cessation with patient: 3 to 10 minutes Status at Discharge Functional status at discharge: independent ambulation Overall status at discharge: patient is back to baseline Time Spent with Patient Time attestation: Total time managing care of this patient today ____ minutes. Time spent: Less than 30 minutes Discharge Plan Discharge Anticipated Discharge Date/Time: 08/23/23 11:30 Patient Disposition: Home, Self-Care Discharge Diagnosis: PTSD, chronic with acute exacerbation Referrals: Optometrist Assistant Appointment [Other] - 08/25/23 9:30 am (Pt has an appointment w/ his Optometrist Assistant due to a blood infection from an infection in foot that occurred 2 years ago. ) Psychiatry, Med Provider [Other] - 1 Week ([facility] [place], [facility] staff will follow up w/ pt following D/C ) Therapy, [facility] [Other] - 08/26/23 8:00 am (Crystal Bustillo, Therapist) Daron Oconnell PA [Primary Care Provider] - 1 Week (As discussed, Pt to make appointment w/ PCP following their D/C and appointment on 08/26) Discharge Medications: New omeprazole 20 mg Capsule,Delayed Release(Dr/Ec) 20 mg PO BID@0630,1630 30 Days Qty: 60 0RF hydroxyzine HCl 25 mg Tablet 25 mg PO Q6H PRN (Reason: Anxiety) 30 Days Qty: 90 1RF trazodone 50 mg Tablet 50 mg PO BEDTIME MRX1 PRN (Reason: Insomnia) 30 Days Qty: 60 1RF Continued venlafaxine 150 mg capsule,extended release 24hr 1 cap PO DAILY atorvastatin 20 mg Tablet 20 mg PO BEDTIME propranolol 10 mg Tablet 10 mg PO BID PRN (Reason: Anxiety) nicotine 21 mg/24 hr Patch 24 Hour 21 mg transdermal DAILY Qty: 30 0RF clonazepam 1 mg tablet 1 mg PO TID PRN (Reason: Anxiety) venlafaxine 37.5 mg capsule,extended release 24hr 37.5 mg PO DAILY Qty: 30 0RF olanzapine 5 mg Tablet 5 mg PO BID 30 Days Qty: 60 1RF Discharge Orders: Discharge Order (Routine); Ordered 08/23/23 Ordered By: Rah Cox Diet: Regular diet Activity on Discharge: As tolerated Stand Alone Forms: Patient Portal Discharge page Care Plan Goals: Maintain mood and safe behaviors Take medications as prescribed Continue to pursue sobriety Practice coping skills Continue with outpatient providers and reach out to them as needed Health Concerns: Mood stability and behaviors History of osteomyelitis Hyperlipidemia Plan of Treatment: Follow up with your PCP, psychiatric provider and other outpatient providers regarding above concerns Take medications as prescribed Assessment: Risk assessment at time of discharge:? Patient was interviewed prior to discharge and found to be fully oriented and without any SI or HI. Patient has improved insight and judgment and wants to continue treatment. Patient is not in imminent risk of harm to self or others and has a safety plan that includes presenting to the closest ER or calling 911 if feeling unsafe.? Patient has been observed closely by nursing and unit staff throughout admission; patient has not engaged in any behaviors that suggest dangerousness to self or others and has demonstrated appropriate behaviors and impulse control
== END 2023-08-23 13:18 | disposition home or self-care (01) | DRG 885 ==
LOC: HO.ED 08-21 01:38 → HO.PM5 08-21 16:28
PROVIDERS: Nurse Practitioner Family; Admitting Provider Psychiatry & Neurology Psychiatry; Emergency Provider Emergency Medicine; PCP Physician Assistant Medical; Visit Provider Psychiatry & Neurology Psychiatry
DX: F33.1 Major depressive disorder, recurrent, moderate (principal); F41.0 Panic disorder [episodic paroxysmal anxiety]; F43.12 Post-traumatic stress disorder, chronic; Z20.822 Contact with and (suspected) exposure to COVID-19; F17.210 Nicotine dependence, cigarettes, uncomplicated; Z71.6 Tobacco abuse counseling; Z79.899 Other long term (current) drug therapy
CPT/HCPCS: 36415; 71046; 80053; 80143; 80179; 80307; 81001; 83690; 85025; 87502; 87635; 93005; 99285; S9485

== ENCOUNTER → 2023-08-21 16:19 | Outpatient (BNV) | payer OTHER, SELFPAY | PROVIDERS: Admitting Provider Psychiatry & Neurology Psychiatry; Emergency Provider Emergency Medicine; PCP Physician Assistant Medical; Visit Provider Psychiatry & Neurology Psychiatry | DX: F33.1 Major depressive disorder, recurrent, moderate (principal); F41.0 Panic disorder [episodic paroxysmal anxiety]; F43.11 Post-traumatic stress disorder, acute | CPT/HCPCS: 90792; 99238 ==

== ENCOUNTER 2023-11-19 13:27 | Emergency (ER) | payer OTHER, SELFPAY ==
--- NOTE | ~2023-11-19 | CT_ITS ---
EXAMINATION: CT HEAD W/O IV CONTRAST CT CERVICAL SPINE W/O IV CONTRAST CLINICAL INFORMATION: History of fall with head strike and loss of consciousness. COMPARISON: None TECHNIQUE: Head - Contiguous axial imaging of the head was performed from the skull base to the vertex without the administration of intravenous contrast, and axial images are reconstructed at 0.6 mm, 2.5 mm and 5 mm slice thickness. Cervical spine - A volumetric, helical CT acquisition of the cervical spine was obtained without contrast; in addition to the standard set of axial images, multiplanar reformatted images were provided in the coronal and sagittal imaging planes. This CT examination was performed using dose optimization techniques as appropriate, variously including the following: *Automated exposure control *Adjustment of mA and/or kV according to patient size (this includes techniques or standardized protocols for targeted exams where dose is matched to indication/reason for exam; i.e. extremities or head) *Use of iterative reconstruction technique DLP: 1487 mGy-cm (total) FINDINGS: HEAD: No acute intracranial findings. [place] to white matter differentiation is preserved. No evidence of intracranial hemorrhage, major vascular territory infarction, focal mass effect or midline shift. The mild parenchymal volume loss is associated with commensurate prominence of ventricles and sulci. No hydrocephalus or extra-axial fluid collections. The calvarium is intact and the visualized paranasal sinuses, mastoid air cells and middle ear cavities are clear. The temporomandibular joints are intact. The orbits and globes are unremarkable. CERVICAL SPINE: The craniocervical junction is normal. The occipital condyles, dens and atlantodental articulation are intact. The vertebral body heights and alignment are maintained with exception of minimal degenerative retrolisthesis at C6-C7. No fractures in the anterior or posterior elements. No prevertebral soft tissue edema or soft tissue hematoma. There is mild reversal of lordosis of the degenerated cervical spine. Moderate degenerative loss of disc space, endplate irregularity and osteophyte formation at C5-C6 and C6-C7. Multilevel facet arthropathy is present. There appears to be mild spinal canal stenosis from small posterior disc osteophyte complexes at C5-C6 and C6-C7. The facet hypertrophy appears to cause moderate left-sided neural foraminal stenosis at C3-C4. The hypertrophied uncovertebral joints cause bilateral neural foraminal stenosis at C5-C6 and C6-C7. At C7-T1, there is left worse than right facet joint osteophyte formation with prominent osteophyte causing left worse than right neural foraminal stenosis at this level. No acute findings in the partially visualized lung apices. Thyroid gland is unremarkable. CT/CT cervical spine wo IV con IMPRESSION: * No intracranial hemorrhage or other acute intracranial pathology. * No fracture or traumatic subluxation in the extensively degenerated cervical spine.
[2023-11-19 13:30] VITALS: BP 178/118; PULSE 113; O2SAT 97
[2023-11-19 13:54] VITALS: BP 144/109; PULSE 111; RESP 20; TEMP 36.6; O2SAT 97; BMI 36.5
--- NOTE | 2023-11-19 13:54 | ED_ITS ---
HPI - General Adult General Chief complaint: Anxiety Stated complaint: ANXIETY ATTACK X 10 HOURS, SOB Related Data Home Medications Medication Instructions Recorded Confirmed atorvastatin 20 mg tablet 20 mg PO BEDTIME 11/11/21 08/20/23 propranolol 10 mg tablet 10 mg PO BID PRN Anxiety 11/11/21 08/20/23 venlafaxine 150 mg 1 cap PO DAILY 01/23/22 08/20/23 capsule,extended release 24 hr clonazepam 1 mg tablet 1 mg PO TID PRN Anxiety 02/18/23 08/21/23 Previous Rx's Medication Instructions Recorded nicotine 21 mg/24 hr daily 21 mg transdermal DAILY #30 ea 11/22/21 transdermal patch venlafaxine 37.5 mg 37.5 mg PO DAILY #30 caps 02/24/23 capsule,extended release 24 hr hydroxyzine HCl 25 mg tablet 25 mg PO Q6H PRN Anxiety 30 days 08/23/23 #90 tabs olanzapine 5 mg tablet 5 mg PO BID 30 days #60 tabs 08/23/23 omeprazole 20 mg capsule,delayed 20 mg PO BID@0630,1630 30 days #60 08/23/23 release caps trazodone 50 mg tablet 50 mg PO BEDTIME MRX1 PRN Insomnia 08/23/23 30 days #60 tabs Allergies Allergy/AdvReac Type Severity Reaction Status Date / Time codeine [CODEINE] AdvReac Severe Nausea Verified 11/19/23 13:54 PMF Past Medical History Medical History Cannabis abuse Cocaine abuse PTSD (post-traumatic stress disorder) Anxiety Hyperlipidemia Depression Osteomyelitis Panic attacks HTN (hypertension) GERD (gastroesophageal reflux disease) Chronic renal insufficiency H/O ETOH abuse Smoker Amputation finger Diabetes Surgical History History of carpal tunnel release of both wrists Hx of foot surgery H/O colonoscopy Family History Family History Other No family history of coronary artery disease Social History Social History Household Members: None Household Members Other:: Self Housing: Apartment Housing Other:: lives in basement of a home Do you presently have visiting nurse or other home services: No Unable to assess alcohol history related to: Refusing to respond Alcohol intake: never Patient Tobacco Use Status: Current everyday Tobacco user Tobacco use type: Cigarette Cigarette Packs Per Day: 0.5 Cigarettes Per Day: 10 Years Smoked: Many e-Cigarette/Vaping Use: Currently Using Substance Use Type: Marijuana Advance Directives: Yes Advance Directives on File: Yes Advance Directives Date on File: 06/24/22 service: Yes ([employer] w/ Honorable Discharge) Current occupational status: disabled Sexual orientation: Straight/Heterosexual Physical Exam ED Vital Signs: Vital Signs - 24 hr 11/19/23 13:54 11/19/23 15:13 Temperature 98 F Pulse Rate 111 H 97 Respiratory Rate 20 22 H Blood Pressure 144/109 H 190/103 H Pulse Oximetry 97 95 Oxygen Delivery Method Room Air Room Air BMI result Body Mass Index 36.5 Course Course Course Narrative: This is a rapid medical exam: Additional HPI, ROS, PE not included below will be deferred to primary provider. Patient is a 63-year-old male with history of PTSD, anxiety, MDD, cannabis abuse, cocaine abuse presenting to the ED reporting that he is having an anxiety attack since 4am. Took a long, hot shower which is usually helpful for him. EMS reports a fall with head strike and loss of consciousness 5 days ago for which patient was never evaluated. Patient actively vomiting in triage, emesis clear with brown specks. States he took clonazepam but was unable to take any other medications due to N/V. Plan: CT head, labs including T&SD Medications Administered Discontinued Medications Generic Name Dose Route Start Last Admin Trade Name Danielle PRN Reason Stop Dose Admin Ondansetron HCl 4 mg 11/19/23 15:48 11/19/23 15:50 Ondansetron Odt 4 Mg Tab.Rapdis SUBLINGUAL 11/19/23 15:49 4 mg ONCE ONE Administration Medical Decision Making Lab Data 11/19/23 14:03 11/19/23 14:03 Labs: Lab Results 11/19/23 11/19/23 Range/Units 14:03 16:32 WBC 17.3 H (4.8-10.8) X10*3/uL RBC 5.37 (4.60-5.80) X10*6/uL Hgb 16.2 (14.0-18.0) g/dl Hct 46.2 (42.0-52.0) % MCV 86.0 (80.0-98.0) fL MCH 30.2 (27.0-33.0) pg MCHC 35.1 (31.0-36.0) g/dl RDW 12.5 (11.0-16.0) % Plt Count 272 (160-400) X10*3/uL MPV 10.2 (9.4-12.4) fL Immature Gran % (Auto) 0.6 H (0.0-0.4) % Neut % (Auto) 83.3 H (45-73) % Lymph % (Auto) 9.0 L (20-40) % [place] % (Auto) 6.7 (2-11) % Eos % (Auto) 0.1 (0-4) % Baso % (Auto) 0.3 (0-2) % Lymph # (Auto) 1.6 (1.2-4.9) X10*3/uL [place] # (Auto) 1.2 (0.1-1.2) X10*3/uL Eos # (Auto) 0.0 (0.0-0.4) X10*3/uL Baso # (Auto) 0.1 (0.0-0.2) X10*3/uL Abs Immat Gran (auto) 0.10 H (0.00-0.03) X10*3/uL Absolute Neuts (auto) 14.4 H (2.0-8.3) x10*3/uL Absolute Nucleated RBC 0.000 (0.0-0.012) X10*3/uL Nucleated RBC % (auto) 0.0 (0.0-0.2) /100WBC PT 11.2 (11.1-13.3) SEC INR 0.9 (0.9-1.1) Sodium 139 (135-145) mmol/L Potassium 3.9 (3.3-5.1) mmol/L Chloride 103 (96-108) mmol/L Carbon Dioxide 22 (22-29) mmol/L Anion Gap 18 (12-20) BUN 17 H (9-16) mg/dL Creatinine 1.79 H (0.5-1.4) mg/dL Estim Creat Clear Calc 51.1 Estimated GFR 39 Random Glucose 183 H (60-115) mg/dL Calcium 10.3 H D (8.4-10.2) mg/dL Total Bilirubin 0.4 (0.0-1.0) mg/dL AST 32 (5-37) U/L ALT 39 (0-40) U/L Alkaline Phosphatase 24 L (39-117) U/L Total Protein 8.1 H (6.5-8.0) g/dL Albumin 4.6 (3.5-5.0) g/dL Urine Color Yellow Urine Appearance Turbid Urine pH 5.5 (5.0-9.0) Ur Specific [place] >= 1.030 H (1.005-1.025) Urine Protein >=1000 (4+) H (Neg-Trace) mg/dL Urine Glucose (UA) 500 H (Negative) mg/dL Urine Ketones Trace (Negative) mg/dL Urine Blood Moderate (2+) H (Negative) Urine Nitrite Negative (Negative) Ur Leukocyte Esterase Negative (Negative) Urine RBC 0-2 (0-2) /HPF Urine WBC 0-5 (0-5) /HPF Ur Squamous Epith Cells 0-2 (0-2) /HPF Urine Bacteria None Seen (None Seen) Hyaline Casts 11-20 (0-2) /LPF Granular Casts Present COVID-19 (RG) Negative (Negative) COVID-19 Clin Com See Note Influenza Type A (EBONY) Negative (Negative) Influenza Type B (EBONY) Negative (Negative) Influenza A & B Note See Note Discharge Plan Discharge Clinical Impression: Diagnosis unknown Patient Disposition: Left W/O Completing Treatment Prescriptions: No Action venlafaxine 150 mg capsule,extended release 24hr 1 cap PO DAILY atorvastatin 20 mg Tablet 20 mg PO BEDTIME propranolol 10 mg Tablet 10 mg PO BID PRN (Reason: Anxiety) nicotine 21 mg/24 hr Patch 24 Hour 21 mg transdermal DAILY Qty: 30 0RF clonazepam 1 mg tablet 1 mg PO TID PRN (Reason: Anxiety) venlafaxine 37.5 mg capsule,extended release 24hr 37.5 mg PO DAILY Qty: 30 0RF omeprazole 20 mg Capsule,Delayed Release(Dr/Ec) 20 mg PO BID@0630,1630 30 Days Qty: 60 0RF olanzapine 5 mg Tablet 5 mg PO BID 30 Days Qty: 60 1RF hydroxyzine HCl 25 mg Tablet 25 mg PO Q6H PRN (Reason: Anxiety) 30 Days Qty: 90 1RF trazodone 50 mg Tablet 50 mg PO BEDTIME MRX1 PRN (Reason: Insomnia) 30 Days Qty: 60 1RF
[2023-11-19 14:09] LABS: MANUAL DIFF FLAG NO
[2023-11-19 14:11] LABS: Basophils Absolute Auto 0.1 X10*3/uL (0.0-0.2); Basophils Percent Auto 0.3 % (0-2); Eosinophils Percent Auto 0.1 % (0-4); Hematocrit 46.2 % (42.0-52.0); Hemoglobin 16.2 g/dl (14.0-18.0); Imm Gran Pct Auto 0.6 % (0.0-0.4); Lymphocytes Absolute Auto 1.6 X10*3/uL (1.2-4.9); Mean Corpuscular HGB Conc 35.1 g/dl (31.0-36.0); Mean Corpuscular Hemoglobin 30.2 pg (27.0-33.0); Mean Platelet Volume 10.2 fL (9.4-12.4); Monocytes Absolute Auto 1.2 X10*3/uL (0.1-1.2); Monocytes Percent Auto 6.7 % (2-11); Neutrophils Absolute Auto 14.4 x10*3/uL (2.0-8.3); Neutrophils Percent Auto 83.3 % (45-73); Platelet Count 272 X10*3/uL (160-400); Red Blood Count 5.37 X10*6/uL (4.60-5.80); Red Cell Distribution Width 12.5 % (11.0-16.0); White Blood Count 17.3 X10*3/uL (4.8-10.8)
[2023-11-19 14:16] LABS: INTERNATIONAL NORM RATIO 0.9 (0.9-1.1); Prothrombin Time 11.2 SEC (11.1-13.3)
[2023-11-19 14:25] LABS: Alanine Aminotransferase 39 U/L (0-40); Albumin Level 4.6 g/dL (3.5-5.0); Alkaline Phosphatase 24 U/L (39-117); Anion Gap 18 (12-20); Aspartate Amino Transferase 32 U/L (5-37); Bilirubin Total 0.4 mg/dL (0.0-1.0); Blood Urea Nitrogen 17 mg/dL (9-16); Calcium 10.3 mg/dL (8.4-10.2); Carbon Dioxide 22 mmol/L (22-29); Chloride 103 mmol/L (96-108); Creatinine Clr Calc Pharmacy 51.1; Estimated Glomerular Filt Rate 39; Glucose Random 183 mg/dL (60-115); Potassium 3.9 mmol/L (3.3-5.1); Sodium 139 mmol/L (135-145); Total Protein 8.1 g/dL (6.5-8.0)
[2023-11-19 14:26] LABS: IDNOW Serial# 16C4AD1C; IDNOW Serial# 55D5AD1C; Influenza A Negative (Negative); Influenza B2 Negative (Negative)
[2023-11-19 14:27] LABS: COVID-19 Test Negative (Negative)
[2023-11-19 15:13] VITALS: BP 190/103; PULSE 97; RESP 22; O2SAT 95
[2023-11-19] MEDS: Ondansetron ODT 4 MG TAB.RAPDIS SUBLINGUAL (15:50)
--- NOTE | 2023-11-19 16:36 | MHC.EDTECH ---
Patient urine sample collected and sent to lab .
[2023-11-19 16:44] LABS: Appearance Urine Turbid; Color Urine Yellow; Glucose Urine UA 500 mg/dL (Negative); Leukocyte Esterase Urine Negative (Negative); Nitrite Urine Negative (Negative); PH 5.5 (5.0-9.0); Specific Gravity - Urine >= 1.030 (1.005-1.025); UMIC TRIGGER UACC YES; Urine Blood Moderate (2+) (Negative); Urine Ketones Trace mg/dL (Negative); Urine Protein >=1000 (4+) mg/dL (Neg-Trace)
[2023-11-19 17:00] LABS: Bacteria Urine None Seen (None Seen); Granular Casts Urine Present; RBC Urine 0-2 /HPF (0-2); Squamous Epithelial Cell Urine 0-2 /HPF (0-2); WBC Urine 0-5 /HPF (0-5)
== END 2023-11-19 18:50 | disposition left against medical advice (07) ==
PROVIDERS: Registered Nurse Emergency; Emergency Provider Emergency Medicine
DX: F41.9 Anxiety disorder, unspecified (principal); R06.02 Shortness of breath; R11.2 Nausea with vomiting, unspecified; Z91.81 History of falling; Z79.899 Other long term (current) drug therapy; F17.210 Nicotine dependence, cigarettes, uncomplicated; Z11.52 Encounter for screening for COVID-19
CPT/HCPCS: 70450; 72125; 80053; 81001; 85025; 85610; 87502; 87635; 99283; 99284

== ENCOUNTER 2023-11-20 08:24 | Emergency (ER) | payer OTHER, SELFPAY ==
--- NOTE | ~2023-11-20 | XR_ITS ---
EXAMINATION: XR CHEST CLINICAL INFORMATION: Epigastric pain COMPARISON: 08/20/2023. TECHNIQUE: 2 views of the chest were obtained. FINDINGS: Heart, mediastinum and pulmonary vessels within normal limits. Mild left base atelectasis. No consolidations or effusions. Degenerative changes and lower dorsal compression deformities again identified. XR/XR chest 2V IMPRESSION: Mild left base atelectasis.
--- NOTE | ~2023-11-20 | CT_ITS ---
EXAMINATION: CT CHEST WITHOUT CONTRAST CLINICAL INFORMATION: Elevated white blood cell count. Concern for pneumonia. COMPARISON: 11/12/2021 TECHNIQUE: Multidetector volumetric CT imaging of the chest was done. Axial MIP volume rendering provided. Sagittal and coronal reformatted images were obtained. This CT examination was performed using dose optimization techniques as appropriate, variously including the following: *Automated exposure control *Adjustment of mA and/or kV according to patient size (this includes techniques or standardized protocols for targeted exams where dose is matched to indication/reason for exam; i.e. extremities or head) *Use of iterative reconstruction technique DLP: 355 mGy-cm FINDINGS: PROJECTOR OPERATOR: Unremarkable LUNGS: There is a 3 mm left upper lobe nodule image 252/575 series 5. There is a 5 mm superior left lower lobe pulmonary nodule image 309/553 Series 5. There are three adjacent right apical nodules measuring up to 3 mm. The lungs are otherwise clear. There is diffuse mild bronchial thickening. MEDIASTINUM: The mediastinum is normal. CORONARY ARTERY CALCIFICATION: Mild PLEURA: There is no pleural effusion. No pleural mass or thickening. AXILLA: No lymphadenopathy. UPPER ABDOMEN: The visualized liver is of diminished attenuation consistent with fatty infiltration. OSSEOUS STRUCTURES: There is mild diffuse thoracic degenerative change. CT/CT chest wo IV con IMPRESSION: 1. No evidence of pneumonia. Diffuse mild bronchial thickening suggestive of airways disease. Small pulmonary nodules, largest measuring 5 mm in the superior left lower lobe were present previously. 2. Fatty liver. 3. Mild diffuse thoracic degenerative change. Fleischner guidelines were followed.
[2023-11-20 08:27] VITALS: BP 150/100; PULSE 120; O2SAT 95
[2023-11-20 08:29] VITALS: BP 144/110; PULSE 110; RESP 20; TEMP 37; O2SAT 96; BMI 36.5
--- NOTE | 2023-11-20 08:33 | ED.GENADULT ---
HPI - General Adult General Chief complaint: Anxiety Stated complaint: ANXIETY PANIC ATTACK Time Seen by Provider: 11/20/23 08:32 Source: patient and EMS Mode of arrival: EMS Limitations: no limitations History of Present Illness HPI narrative: Patient is a 63 year old assigned male at with a history of cocaine abuse, PTSD, and anxiety presenting to the emergency department today with anxiety. Patient states that over the last 2 days his anxiety has been particularly high. Patient states that he was seen yesterday but left the waiting room due to the wait. Patient states yesterday he was having epigastric pain with nausea and vomiting. Patient states that he is still having some epigastric pain but no nausea or vomiting. Patient denies any current dizziness, lightheadedness, fever, chills, blurry vision, double vision, loss of vision, difficulty breathing, shortness of breath, back pain, night sweats, pain with urination, increased urinary frequency, increased urinary urgency, blood in his urine or stool, syncope or a near syncopal episode, recent trauma or falls, bowel incontinence, bladder incontinence, bowel retention, bladder retention, or any other complaints at this time. Onset (ago): day(s) (2) Relieving factors: none Exacerbating factors: none Associated symptoms: nausea/vomiting (now resolved) Treatments prior to arrival: none Related Data Home Medications Medication Instructions Recorded Confirmed atorvastatin 20 mg tablet 20 mg PO BEDTIME 11/11/21 08/20/23 propranolol 10 mg tablet 10 mg PO BID PRN Anxiety 11/11/21 08/20/23 venlafaxine 150 mg 1 cap PO DAILY 01/23/22 08/20/23 capsule,extended release 24 hr clonazepam 1 mg tablet 1 mg PO TID PRN Anxiety 02/18/23 08/21/23 Previous Rx's Medication Instructions Recorded nicotine 21 mg/24 hr daily 21 mg transdermal DAILY #30 ea 11/22/21 transdermal patch venlafaxine 37.5 mg 37.5 mg PO DAILY #30 caps 02/24/23 capsule,extended release 24 hr hydroxyzine HCl 25 mg tablet 25 mg PO Q6H PRN Anxiety 30 days 08/23/23 #90 tabs olanzapine 5 mg tablet 5 mg PO BID 30 days #60 tabs 08/23/23 omeprazole 20 mg capsule,delayed 20 mg PO BID@0630,1630 30 days #60 08/23/23 release caps trazodone 50 mg tablet 50 mg PO BEDTIME MRX1 PRN Insomnia 08/23/23 30 days #60 tabs Allergies Allergy/AdvReac Type Severity Reaction Status Date / Time codeine [CODEINE] AdvReac Severe Nausea Verified 11/20/23 08:28 Review of Systems Constitutional: Constitutional: Reports no additional constitutional complaints, Denies chills, Denies fever(s) and Denies night sweats Eyes: Eyes: Reports no additional eye complaints, Denies blurry vision, Denies change in vision, Denies diplopia, Denies eye discharge, Denies loss of vision and Denies eye pain ENT: Denies dizziness Cardiovascular: Cardiovascular: Reports no additional cardiovascular complaints, Denies chest pain, Denies lightheadedness, Denies Loss of Consciousness and Denies dyspnea Respiratory: Respiratory: Reports no additional respiratory complaints and Denies dyspnea Gastrointestinal: Gastrointestinal: Reports no additional gastrointestinal complaints, Reports abdominal pain, Denies melena, Denies hematochezia, Denies change in bowel habits, Denies change in stool character, Reports nausea (now resolved) and Reports vomiting (now resolved) Genitourinary: Genitourinary: Reports no additional male genitourinary complaints, Denies hematuria, Denies oliguria, Denies difficulty urinating, Denies dysuria, Denies urinary frequency, Denies urinary hesitancy, Denies urinary incontinence and Denies urinary urgency Musculoskeletal: Musculoskeletal: Reports no additional musculoskeletal complaints, Denies numbness and Denies tingling Neurologic: Denies dizziness, Denies loss of vision, Denies numbness and Denies tingling Psychiatric: Psychiatric: Reports anxiety Endocrine: Endocrine: Reports no additional endocrine complaints Hematologic/Lymphatic: Hematologic/Lymphatic: Reports no additional hematologic/lymphatic complaints Allergic/Immunologic: Allergic/Immunologic: Reports no additional allergic/immunologic complaints PMFSH Past Medical History Medical History Cannabis abuse Cocaine abuse PTSD (post-traumatic stress disorder) Anxiety Hyperlipidemia Depression Osteomyelitis Panic attacks HTN (hypertension) GERD (gastroesophageal reflux disease) Chronic renal insufficiency H/O ETOH abuse Smoker Amputation finger Diabetes Surgical History History of carpal tunnel release of both wrists Hx of foot surgery H/O colonoscopy Family History Family History Other No family history of coronary artery disease Social History Social History Household Members: None Household Members Other:: Self Housing: Apartment Housing Other:: lives in basement of a home Do you presently have visiting nurse or other home services: No Unable to assess alcohol history related to: Refusing to respond Alcohol intake: never Patient Tobacco Use Status: Current everyday Tobacco user Tobacco use type: Cigarette Cigarette Packs Per Day: 0.5 Cigarettes Per Day: 10 Years Smoked: Many e-Cigarette/Vaping Use: Currently Using Substance Use Type: Marijuana Advance Directives: Yes Advance Directives on File: Yes Advance Directives Date on File: 06/24/22 service: Yes ([employer] w/ Honorable Discharge) Current occupational status: disabled Sexual orientation: Straight/Heterosexual Physical Exam ED Vital Signs: Vital Signs - 24 hr 11/20/23 08:29 11/20/23 12:43 Temperature 98.6 F Pulse Rate 110 H 96 Respiratory Rate 20 18 Blood Pressure 144/110 H 184/97 H Pulse Oximetry 96 97 Oxygen Delivery Method Room Air Nasal Cannula Oxygen Flow Rate 2 BMI result Body Mass Index 36.5 Medications Administered Discontinued Medications Generic Name Dose Route Start Last Admin Trade Name Freq PRN Reason Stop Dose Admin Al Hydroxide/Mg Hydroxide 15 ml 11/20/23 12:34 11/20/23 12:57 Magnesium Hydrox/Alum Hydrox 30 Ml Oral.Susp PO 11/20/23 12:35 15 ml ONCE ONE Administration Diazepam 2 mg 11/20/23 08:39 11/20/23 08:57 Diazepam 2 Mg Tablet PO 11/20/23 08:40 2 mg ONCE ONE Administration Sodium Chloride 1,000 mls @ 999 mls/hr 11/20/23 10:30 11/20/23 13:29 Ns IV 11/20/23 11:30 Infused .Q1H1M KIM Infusion Lorazepam 2 mg 11/20/23 12:34 11/20/23 12:56 Lorazepam 1 Mg Tablet PO 11/20/23 12:35 2 mg ONCE ONE Administration Pantoprazole Sodium 40 mg 11/20/23 12:34 11/20/23 12:52 Pantoprazole Sodium 40 Mg/10 Ml Vial IVPUSH 11/20/23 12:35 40 mg ONCE ONE Administration Medical Decision Making Medical Decision Making [facility] Narrative: Patient is a 63 year old assigned male at with a history of cocaine abuse, PTSD, and anxiety presenting to the emergency department today with acute anxiety and epigastric pain. Patient's physical exam was unremarkable. Patient's blood work showed an initially elevated trop of 58.2 with a repeat of 43.2. Patient's urine showed no acute process. Patient's EKG was unremarkable. Patient's chest x-ray showed no acute process. I did speak to the staff mechanical engineer about this patient and he agreed there is no cardiac concern. I explained my physical exam findings as well as all test results to the patient. I answered all questions asked by the patient. Patient requested to be evaluated by the CARE team. Patient placed in the behavioral health POD. Patient's disposition pending CARE eval. Differential Diagnosis Differential Diagnoses: The differential diagnosis associated with the presentation includes anxiety NSTEMI STEMI Epigastric pain Admission/Observation Consideration of admission/observation: Escalation of care including admission/observation considered Patient would have been admitted to the hospital had his work up had any findings where hospital admission was appropriate and his clinical presentation warranted hospital admission. Consult Healthcare Provider Management of the patient was discussed with: Organic Extractions Technician (spoke to the staff mechanical engineer as noted in the MDM Rationale portion of this note.) Lab Data [facility] Lab Attestation statement: I reviewed the patient's lab results. My interpretation of these results are in the MDM Rationale portion of this note. 11/20/23 09:05 11/20/23 09:05 Labs: Lab Results 11/20/23 11/20/23 11/20/23 Range/Units 09:05 10:08 11:03 WBC 16.4 H (4.8-10.8) X10*3/uL RBC 4.96 (4.60-5.80) X10*6/uL Hgb 14.8 (14.0-18.0) g/dl Hct 42.3 (42.0-52.0) % MCV 85.3 (80.0-98.0) fL MCH 29.8 (27.0-33.0) pg MCHC 35.0 (31.0-36.0) g/dl RDW 12.7 (11.0-16.0) % Plt Count 251 (160-400) X10*3/uL MPV 10.1 (9.4-12.4) fL Immature Gran % (Auto) 0.6 H (0.0-0.4) % Neut % (Auto) 81.4 H (45-73) % Lymph % (Auto) 9.1 L (20-40) % Robeson % (Auto) 8.1 (2-11) % Eos % (Auto) 0.6 (0-4) % Baso % (Auto) 0.2 (0-2) % Lymph # (Auto) 1.5 (1.2-4.9) X10*3/uL Robeson # (Auto) 1.3 H (0.1-1.2) X10*3/uL Eos # (Auto) 0.1 (0.0-0.4) X10*3/uL Baso # (Auto) 0.0 (0.0-0.2) X10*3/uL Abs Immat Gran (auto) 0.10 H (0.00-0.03) X10*3/uL Absolute Neuts (auto) 13.4 H (2.0-8.3) x10*3/uL Absolute Nucleated RBC 0.000 (0.0-0.012) X10*3/uL Nucleated RBC % (auto) 0.0 (0.0-0.2) /100WBC Sodium 140 (135-145) mmol/L Potassium 3.8 (3.3-5.1) mmol/L Chloride 102 (96-108) mmol/L Carbon Dioxide 23 (22-29) mmol/L Anion Gap 19 (12-20) BUN 25 H (9-16) mg/dL Creatinine 1.84 H (0.5-1.4) mg/dL Estim Creat Clear Calc 49.8 Estimated GFR 37 Random Glucose 181 H (60-115) mg/dL Calcium 9.5 D (8.4-10.2) mg/dL Total Bilirubin 0.6 (0.0-1.0) mg/dL AST 39 H (5-37) U/L ALT 37 (0-40) U/L Alkaline Phosphatase 24 L (39-117) U/L Troponin I High Sens 58.2 H D 43.2 H (<3.5-35.0) ng/L Total Protein 7.6 (6.5-8.0) g/dL Albumin 4.4 (3.5-5.0) g/dL Influenza Type A (PCR) NEGATIVE (Negative) Influenza Type B (PCR) NEGATIVE (Negative) RSV RNA Qual (PCR) NEGATIVE (Negative) SARS-CoV-2 RNA (RT-PCR) NEGATIVE (Negative) Independent Interpretation I performed an independent interpretation of an: EKG and Plain X-Ray Interpretation: My interpretation is in agreement with the radiologist's impression of this imaging study. EXAMINATION: XR CHEST CLINICAL INFORMATION: Epigastric pain COMPARISON: 08/20/2023. TECHNIQUE: 2 views of the chest were obtained. FINDINGS: Heart, mediastinum and pulmonary vessels within normal limits. Mild left base atelectasis. No consolidations or effusions. Degenerative changes and lower dorsal compression deformities again identified. XR/XR chest 2V IMPRESSION: Mild left base atelectasis. Dictated By: Marielos Sesay MD Signed By: Electronically signed by Marielos Sesay MD 11/20/23 0957 Vent. Rate: 100 BPM Atrial Rate: 100 BPM P-R Int: 150 ms QRS Dur: 100 ms QT Int: 400 ms P-R-T Axes: 058 -06 055 degrees QTc Int: 516 ms Normal sinus rhythm Incomplete right bundle branch block Nonspecific ST abnormality Prolonged QT Abnormal ECG When compared with ECG of 20-NOV-2023 08:56, No significant change was found DD/ [id number] Radiology Impression Discussion of test interpretation with radiology: I have reviewed the radiologist's reading. Independent Historian Clinical information obtained from an independent historian. History obtained from or confirmed by: EMS (EMS provided additional history and confirmed the history provided by the patient.) Critical Care Time Critical Care Time Critical Care Time: Yes Total Critical Care Time: 55 Attestation: I spent 55 minutes of Critical Care Time with this patient. This does not include time spent on separately reported billable procedures. Discharge Plan Discharge Clinical Impression: Acute anxiety, Acute epigastric pain Prescriptions: No Action venlafaxine 150 mg capsule,extended release 24hr 1 cap PO DAILY atorvastatin 20 mg Tablet 20 mg PO BEDTIME propranolol 10 mg Tablet 10 mg PO BID PRN (Reason: Anxiety) nicotine 21 mg/24 hr Patch 24 Hour 21 mg transdermal DAILY Qty: 30 0RF clonazepam 1 mg tablet 1 mg PO TID PRN (Reason: Anxiety) venlafaxine 37.5 mg capsule,extended release 24hr 37.5 mg PO DAILY Qty: 30 0RF omeprazole 20 mg Capsule,Delayed Release(Dr/Ec) 20 mg PO BID@0630,1630 30 Days Qty: 60 0RF olanzapine 5 mg Tablet 5 mg PO BID 30 Days Qty: 60 1RF hydroxyzine HCl 25 mg Tablet 25 mg PO Q6H PRN (Reason: Anxiety) 30 Days Qty: 90 1RF trazodone 50 mg Tablet 50 mg PO BEDTIME MRX1 PRN (Reason: Insomnia) 30 Days Qty: 60 1RF
--- NOTE | 2023-11-20 08:40 | ECG_ITS ---
Test Reason : EPIGASTRIC PAIN Blood Pressure : / mmHG Vent. Rate : 106 BPM Atrial Rate : 106 BPM P-R Int : 142 ms QRS Dur : 098 ms QT Int : 360 ms P-R-T Axes : 053 -01 047 degrees QTc Int : 478 ms Sinus tachycardia Incomplete right bundle branch block Borderline ECG When compared with ECG of 21-AUG-2023 10:52, No significant change was found Referred By: Roxi Metz Electronically Signed By:Michael Starr
[2023-11-20] MEDS: diazePAM 2 MG TABLET PO (08:57)
[2023-11-20 09:12] LABS: MANUAL DIFF FLAG NO
[2023-11-20 09:13] LABS: Basophils Percent Auto 0.2 % (0-2); Eosinophils Absolute Auto 0.1 X10*3/uL (0.0-0.4); Eosinophils Percent Auto 0.6 % (0-4); Hematocrit 42.3 % (42.0-52.0); Hemoglobin 14.8 g/dl (14.0-18.0); Imm Gran Pct Auto 0.6 % (0.0-0.4); Lymphocytes Absolute Auto 1.5 X10*3/uL (1.2-4.9); Lymphocytes Percent Auto 9.1 % (20-40); Mean Corpuscular Hemoglobin 29.8 pg (27.0-33.0); Mean Corpuscular Volume 85.3 fL (80.0-98.0); Mean Platelet Volume 10.1 fL (9.4-12.4); Monocytes Absolute Auto 1.3 X10*3/uL (0.1-1.2); Monocytes Percent Auto 8.1 % (2-11); Neutrophils Absolute Auto 13.4 x10*3/uL (2.0-8.3); Neutrophils Percent Auto 81.4 % (45-73); Platelet Count 251 X10*3/uL (160-400); Red Blood Count 4.96 X10*6/uL (4.60-5.80); Red Cell Distribution Width 12.7 % (11.0-16.0); White Blood Count 16.4 X10*3/uL (4.8-10.8)
--- NOTE | 2023-11-20 09:25 | PC.NURSE ---
Patient previously crying and anxious. Given po valium. Patient not sleeping, resp even and non labored.
[2023-11-20 09:36] LABS: Troponin-I High Sensitivity 58.2 ng/L (<3.5-35.0)
[2023-11-20 10:19] LABS: Alanine Aminotransferase 37 U/L (0-40); Albumin Level 4.4 g/dL (3.5-5.0); Alkaline Phosphatase 24 U/L (39-117); Anion Gap 19 (12-20); Aspartate Amino Transferase 39 U/L (5-37); Bilirubin Total 0.6 mg/dL (0.0-1.0); Blood Urea Nitrogen 25 mg/dL (9-16); Calcium 9.5 mg/dL (8.4-10.2); Carbon Dioxide 23 mmol/L (22-29); Chloride 102 mmol/L (96-108); Creatinine Clr Calc Pharmacy 49.8; Estimated Glomerular Filt Rate 37; Glucose Random 181 mg/dL (60-115); Potassium 3.8 mmol/L (3.3-5.1); Sodium 140 mmol/L (135-145); Total Protein 7.6 g/dL (6.5-8.0)
[2023-11-20 10:52] LABS: Influenza A PCR NEGATIVE (Negative); Influenza B PCR NEGATIVE (Negative); Resp Syncy Virus RNA Qual PCR NEGATIVE (Negative); SARS COV2 PCR INHOUSE NEGATIVE (Negative)
[2023-11-20] MEDS: 0.9 % Sodium Chloride 1,000 ML 999 ML IV (11:04)
[2023-11-20 11:54] LABS: Troponin-I High Sensitivity 43.2 ng/L (<3.5-35.0)
--- NOTE | 2023-11-20 12:33 | ECG_ITS ---
Test Reason : CHESTPAIN Blood Pressure : / mmHG Vent. Rate : 100 BPM Atrial Rate : 100 BPM P-R Int : 150 ms QRS Dur : 100 ms QT Int : 400 ms P-R-T Axes : 058 -06 055 degrees QTc Int : 516 ms Normal sinus rhythm Incomplete right bundle branch block Nonspecific ST abnormality Prolonged QT Abnormal ECG When compared with ECG of 20-NOV-2023 08:56, No significant change was found Referred By: Pauly Sol Electronically Signed By:Michael Starr
[2023-11-20 12:43] VITALS: BP 184/97; PULSE 96; RESP 18; O2SAT 97
[2023-11-20] MEDS: Pantoprazole Sodium 40 MG/10 ML VIAL IVPUSH (12:52)
[2023-11-20] MEDS: LORazepam 1 MG TABLET 2 MG PO (12:56)
[2023-11-20] MEDS: Magnesium Hydrox/Alum Hydrox 30 ML ORAL.SUSP 15 ML PO (12:57)
--- NOTE | 2023-11-20 16:00 | PC.NURSE ---
Assumed care of patient at 1500, patient is ambulating around BH pod with steady gait. Patient is calm and cooperative at this time, no apparent distress. Plan of care for CARE team romero
[2023-11-20] MEDS: Nicotine 21 MG PATCH.TD24 TRANSDERMA (16:42)
[2023-11-20 17:02] LABS: Ethanol < 10 mg/dL
[2023-11-20 17:27] LABS: Appearance Urine Clear; Color Urine Yellow; Glucose Urine UA Negative (Negative); Leukocyte Esterase Urine Negative (Negative); Nitrite Urine Negative (Negative); Specific Gravity - Urine 1.025 (1.005-1.025); UMIC TRIGGER UACC YES; Urine Blood Trace (Negative); Urine Ketones Trace mg/dL (Negative); Urine Protein 100 (2+) mg/dL (Neg-Trace)
[2023-11-20 17:27] LABS: Amphetamine Screen Urine Not Detected (Not Detect); Barbiturates, Urine Not Detected (Not Detect); Benzodiazepines Screen Urine POSITIVE (Not Detect); Cannabinoid Screen Urine POSITIVE (Not Detect); Cocaine Screen Urine Not Detected (Not Detect); Fentanyl, urine Not Detected (Not Detect); Opiate Screen Urine Not Detected (Not Detect); Phencyclidine Screen Urine Not Detected (Not Detect)
[2023-11-20 17:32] LABS: Bacteria Urine None Seen (None Seen); Hyaline Casts Urine 0-2 /LPF (0-2); RBC Urine 0-2 /HPF (0-2); WBC Urine 0-5 /HPF (0-5)
[2023-11-20] MEDS: OLANZapine 5 MG TABLET PO (20:29)
[2023-11-20] MEDS: Atorvastatin Calcium 20 MG TABLET PO (20:29)
[2023-11-20] MEDS: hydrOXYzine HCL 25 MG TABLET PO (20:37)
[2023-11-20] MEDS: traZODone HCL 50 MG TABLET PO (20:37)
[2023-11-20 20:43] VITALS: BP 136/68; PULSE 99; RESP 18; TEMP 37.4; O2SAT 96
--- NOTE | 2023-11-20 22:41 | MHC.CARE ---
RAD Team faxed assessment to [facility] for review. Assessment has been received and is under review please follow up tomorrow 11/21/23
[2023-11-20 23:47] VITALS: BP 160/88; PULSE 100; RESP 18; TEMP 37.2; O2SAT 96
[2023-11-21] MEDS: clonazePAM 1 MG TABLET PO (02:22)
[2023-11-21 04:21] VITALS: BP 165/110; PULSE 105; RESP 20; TEMP 36.8; O2SAT 96
--- NOTE | 2023-11-21 04:22 | PC.NURSE ---
t/w notified provider of pervasive symptoms which didnt indicate benzo wd alone. xray ordered, labs attempted to be drawn however charge chong arrived and transferred patient to
[2023-11-21 04:25] LABS: MANUAL DIFF FLAG NO
[2023-11-21 04:27] LABS: Basophils Absolute Auto 0.1 X10*3/uL (0.0-0.2); Basophils Percent Auto 0.4 % (0-2); Eosinophils Absolute Auto 0.1 X10*3/uL (0.0-0.4); Eosinophils Percent Auto 0.7 % (0-4); Hematocrit 45.7 % (42.0-52.0); Hemoglobin 15.9 g/dl (14.0-18.0); Imm Gran Abs Auto 0.07 X10*3/uL (0.00-0.03); Imm Gran Pct Auto 0.4 % (0.0-0.4); Lymphocytes Absolute Auto 3.4 X10*3/uL (1.2-4.9); Lymphocytes Percent Auto 21.4 % (20-40); Mean Corpuscular HGB Conc 34.8 g/dl (31.0-36.0); Mean Corpuscular Hemoglobin 30.4 pg (27.0-33.0); Mean Corpuscular Volume 87.4 fL (80.0-98.0); Monocytes Absolute Auto 1.4 X10*3/uL (0.1-1.2); Monocytes Percent Auto 8.9 % (2-11); Neutrophils Absolute Auto 10.9 x10*3/uL (2.0-8.3); Neutrophils Percent Auto 68.2 % (45-73); Platelet Count 240 X10*3/uL (160-400); Red Blood Count 5.23 X10*6/uL (4.60-5.80); Red Cell Distribution Width 12.7 % (11.0-16.0); White Blood Count 15.9 X10*3/uL (4.8-10.8)
[2023-11-21] MEDS: 0.9 % Sodium Chloride 1,000 ML 999 ML IV ×2 (04:43→05:09)
[2023-11-21 04:57] LABS: Lactic Acid 3.7 mmol/L (0.5-2.0)
[2023-11-21 05:00] LABS: Alanine Aminotransferase 38 U/L (0-40); Albumin Level 4.3 g/dL (3.5-5.0); Alkaline Phosphatase 25 U/L (39-117); Anion Gap 17 (12-20); Aspartate Amino Transferase 49 U/L (5-37); Bilirubin Direct 0.2 mg/dL (0.0-0.5); Bilirubin Total 0.6 mg/dL (0.0-1.0); Blood Urea Nitrogen 22 mg/dL (9-16); C Reactive Protein 0.34 mg/dL (< or = 0.50); Calcium 9.1 mg/dL (8.4-10.2); Carbon Dioxide 24 mmol/L (22-29); Chloride 103 mmol/L (96-108); Creatinine Clr Calc Pharmacy 57.6; Estimated Glomerular Filt Rate 44; Glucose Random 150 mg/dL (60-115); Magnesium 1.6 mg/dL (1.6-2.6); Potassium 3.7 mmol/L (3.3-5.1); Sodium 140 mmol/L (135-145); Total Protein 7.4 g/dL (6.5-8.0)
[2023-11-21] MEDS: LORazepam 2 MG/ML VIAL IVPUSH (05:07)
[2023-11-21 05:09] LABS: Erythrocyte Sedimentation Rate 2 MM/HR (0-15)
[2023-11-21 06:14] VITALS: BP 165/95; PULSE 86; RESP 24; TEMP 36.8; O2SAT 96
[2023-11-21 06:40] LABS: Reflex Lactate? Lactic Acid Added
--- NOTE | 2023-11-21 07:01 | MHC.CARE ---
Pt accepted to [facility] for IPLOC for between 8-830 Accepting Doctor- Dr Jaquan Donald [place] to mixing picker tender pt at 8am
[2023-11-21] MEDS: diphenhydrAMINE HCL 50 MG/ML VIAL 25 MG IVPUSH (07:06)
--- NOTE | 2023-11-21 07:15 | PC.NURSE ---
medicated per the MAR, patient awaiting results from blood test prior to discharge. if medically cleared, [facility] approx 0800.
[2023-11-21 07:34] LABS: ~Lactic Acid-LAB USE ONLY 2.5 mmol/L (0.5-2.0)
[2023-11-21 08:55] LABS: Reflex Lactate? 2 Y
== END 2023-11-21 09:24 | disposition other institution (70) ==
PROVIDERS: Emergency Medicine; Physician Assistant Medical; Emergency Provider Student in an Organized Health Care Education/Training Program; PCP Physician Assistant Medical
DX: F41.9 Anxiety disorder, unspecified (principal); R10.13 Epigastric pain; E87.20 Acidosis, unspecified; N17.9 Acute kidney failure, unspecified; R11.2 Nausea with vomiting, unspecified; R00.0 Tachycardia, unspecified; Z11.52 Encounter for screening for COVID-19; Z20.828 Contact with and (suspected) exposure to other viral communicable diseases; F12.10 Cannabis abuse, uncomplicated; F14.10 Cocaine abuse, uncomplicated; F43.10 Post-traumatic stress disorder, unspecified; F41.0 Panic disorder [episodic paroxysmal anxiety]; D72.829 Elevated white blood cell count, unspecified; F33.1 Major depressive disorder, recurrent, moderate; E11.9 Type 2 diabetes mellitus without complications; I10 Essential (primary) hypertension; E78.5 Hyperlipidemia, unspecified; F17.210 Nicotine dependence, cigarettes, uncomplicated; Z79.02 Long term (current) use of antithrombotics/antiplatelets; Z79.899 Other long term (current) drug therapy
CPT/HCPCS: 0241U; 36415; 71046; 71250; 80048; 80053; 80076; 80307; 81001; 82550; 83605; 83735; 84484; 85025; 85652; 86140; 87040; 93005; 99285; C9113; J1200; J2060; S9485

== ENCOUNTER → 2023-11-20 08:40 | Outpatient (BNV) | payer OTHER, SELFPAY | PROVIDERS: Emergency Provider Student in an Organized Health Care Education/Training Program; PCP Physician Assistant Medical; Visit Provider Internal Medicine Cardiovascular Disease | DX: I45.81 Long QT syndrome (principal); R00.0 Tachycardia, unspecified | CPT/HCPCS: 93010 ==

== ENCOUNTER 2024-06-19 06:32 | Emergency (ER) | payer OTHER, SELFPAY ==
[2024-06-19] VITALS (13 sets, daily range): BP systolic 114–200; BP diastolic 76–150; PULSE 70–86; RESP 13–20; TEMP 36.8–37.6; O2SAT 94–98; BMI 36.9
--- NOTE | ~2024-06-19 | XR_ITS ---
EXAMINATION: XR CHEST CLINICAL INFORMATION: Chest pain COMPARISON: Chest CT November 21, 2023 and chest x-ray November 20, 2023 TECHNIQUE: Frontal view of the chest was obtained. FINDINGS: Cardiac silhouette is normal in size. The lungs are adequately aerated. There is no lobar consolidation. No pleural effusion or pneumothorax. XR/XR chest 1V IMPRESSION: No acute pulmonary pathology. Electronically signed by: Chris Snyder MD 06/19/2024 10:49 AM EDT
--- NOTE | 2024-06-19 06:47 | ED_ITS ---
HPI - Psych General Chief Complaint: Anxiety Stated Complaint: PANIC ATTACK FOR 2DAYS Time Seen by Provider: 06/19/24 06:38 Source: patient, EMS and old records reviewed Mode of arrival: EMS Limitations: no limitations History of Present Illness ED Provider: Lillian Banuelos PA-C HPI Narrative: 64 yo male with history of depression, PTSD, ETOH use disorder, cocaine use, DM, hx left great toe osteomyelitis, CKD, GERD, HTN, anxiety on klonopin TID, panic attacks ER from home for evaluation of panic attack for the last 2 days. Patient states he has not slept in the last 3 days due to panic and anxiety. He states yesterday he was delirious, he is not sure if he took his prescribed Klonopin or not. He states this happens to him frequently and he often wakes to come to the ER until it is ?too late. ? he states he has been freezing cold, nauseous, with chills and a subjective fever. He has been trying to drink fluids but has had decreased p.o. intake. He denies any suicidal thoughts but when he gets anxious like this he gets depressed. He states he last drank alcohol 4 days ago. He denies any other drug use. He has a therapist whom he speaks to every Thursday, he had no symptoms on there last encounter. He reports several psych admissions in the past, last was in November. MD complaint: feels depressed and anxiety Onset (ago): day(s) (2) Duration: constant History of same: Yes Relieving factors: medication Exacerbating factors: none Associated psychiatric symptoms: depression and racing thoughts Associated symptoms: confusion, nausea and insomnia Related Data Home Medications ?Medication ?Instructions ?Recorded ?Confirmed atorvastatin 20 mg tablet 20 mg PO BEDTIME 11/11/21 11/20/23 propranolol 10 mg tablet 10 mg PO BID PRN Anxiety 11/11/21 11/20/23 clonazepam 1 mg tablet 1 mg PO TID PRN Anxiety 02/18/23 11/20/23 Previous Rx's ?Medication ?Instructions ?Recorded venlafaxine 37.5 mg 37.5 mg PO DAILY #30 caps 02/24/23 capsule,extended release 24 hr hydroxyzine HCl 25 mg tablet 25 mg PO Q6H PRN Anxiety 30 days 08/23/23 #90 tabs olanzapine 5 mg tablet 5 mg PO BID 30 days #60 tabs 08/23/23 trazodone 50 mg tablet 50 mg PO BEDTIME MRX1 PRN Insomnia 08/23/23 30 days #60 tabs Allergies Allergy/AdvReac Type Severity Reaction Status Date / Time codeine [CODEINE] AdvReac Severe Nausea Verified 06/19/24 06:42 Review of Systems 2 Review of Systems: Yes all other systems are reviewed and are negative COUNTS INCLUDE 234 BEDS AT THE [facility] Past Medical History Medical History Cannabis abuse Cocaine abuse PTSD (post-traumatic stress disorder) Anxiety Hyperlipidemia Depression Osteomyelitis Panic attacks HTN (hypertension) GERD (gastroesophageal reflux disease) Chronic renal insufficiency H/O ETOH abuse Smoker Amputation finger Diabetes Surgical History History of carpal tunnel release of both wrists Hx of foot surgery H/O colonoscopy Family History Family History Other No family history of coronary artery disease Social History Social History Household Members: None Household Members Other:: Self Housing: Apartment Housing Other:: lives in basement of a home Do you presently have visiting nurse or other home services: No Unable to assess alcohol history related to: Refusing to respond Alcohol intake: never Patient Tobacco Use Status: Current everyday Tobacco user Tobacco use type: Cigarette Cigarette Packs Per Day: 0.5 Cigarettes Per Day: 10 Years Smoked: Many Smoked in Last 30 Days: Yes e-Cigarette/Vaping Use: Currently Using Use of substances other than those prescribed or required for medical reasons: Yes Substance Use Type: Marijuana Advance Directives: Yes Advance Directives on File: Yes Advance Directives Date on File: 06/24/22 Do you have a plan to hurt others: No Plan service: Yes ([employer] w/ [employer]) Current occupational status: disabled Sexual orientation: Straight/Heterosexual Physical Exam 2 Vital Signs: Vital Signs: Last Vital Signs Temp 98.4 F 06/19/24 14:18 Pulse 82 06/19/24 14:49 Resp 15 06/19/24 14:49 BP 158/103 H 06/19/24 14:49 Pulse Ox 97 09/15/24 14:49 O2 Del Method Room Air 06/19/24 14:49 BMI result Body Mass Index 36.9 Appearance: Alert. Oriented X3. No acute distress. Well groomed Head: normocephalic, atraumatic. Eyes: Pupils equal, round and reactive to light. ENT: Pharynx normal. No tonsillar swelling or exudate. Neck: Normal inspection. Neck supple. CVS: Normal heart rate and rhythm. Pulses normal. Respiratory: No respiratory distress. Breath sounds normal. Abdomen: Soft and nontender. +BS x4 Skin: Skin warm and dry. Normal skin color. Normal skin turgor. No rashes. Extremities: No lower extremity edema. No joint swelling. Neuro/psych: Oriented X 3. No motor deficit. No sensory deficit. CN II-XII intact. Normal speech and cognition. Mood is anxious. Normal affect, makes eye contact Course Reevaluation(s) Reevaluation #1: Patient developed diaphoresis and some burning in his mid upper chest. He states overall his anxiety is improved. He denied shortness of breath. EKG was performed and is unchanged from prior. He states he feels like the pain was acid reflux he was given Tums. Troponin ordered. Patient given his propranolol for his anxiety and blood pressure. Time: 10:40 Reevaluation #2: Troponin is negative. He feels much better after the Tums. Repeat troponin is pending. Blood pressure remains elevated, we will give a dose of Norvasc and his scheduled Klonopin and Zyprexa from home. He is feeling overall much better Time: 12:56 Medications Administered Discontinued Medications Generic Name Dose Route Start Last Admin Trade Name Danielle PRN Reason Stop Dose Admin Amlodipine Besylate 5 mg 06/19/24 12:47 06/19/24 13:38 Amlodipine Besylate 5 Mg Tablet PO 06/19/24 12:48 5 mg ONCE ONE Administration Protocol Calcium Carbonate 1,500 mg 06/19/24 10:00 06/19/24 10:54 Calcium Carbonate 750 Mg Tab.Chew PO 06/19/24 10:01 1,500 mg ONCE ONE Administration Clonazepam 1 mg 06/19/24 12:47 06/19/24 13:38 Clonazepam 1 Mg Tablet PO 06/19/24 12:48 1 mg ONCE ONE Administration Lactated Ringer's 1,000 mls @ 999 mls/hr 06/19/24 07:15 06/19/24 09:32 Lr IV 06/19/24 08:15 Infused .Q1H1M KIM Infusion Sodium Chloride 1,000 mls @ 999 mls/hr 06/19/24 10:15 06/19/24 11:47 Ns IVCONT 06/19/24 11:15 Infused .Q1H1M KIM Infusion Labetalol HCl 20 mg 06/19/24 14:08 06/19/24 14:49 Labetalol Hcl 100 Mg/20 Ml Vial IVPUSH 06/19/24 14:09 Not Given ONCE ONE Lorazepam 2 mg 06/19/24 07:11 06/19/24 07:59 Lorazepam 2 Mg/Ml Vial IVPUSH 06/19/24 07:12 2 mg ONCE ONE Administration Olanzapine 5 mg 06/19/24 12:47 06/19/24 13:38 Olanzapine 5 Mg Tablet PO 06/19/24 12:48 5 mg ONCE ONE Administration Propranolol HCl 10 mg 06/19/24 10:02 06/19/24 10:54 Propranolol Hcl 10 Mg Tablet PO 06/19/24 10:03 10 mg ONCE ONE Administration Protocol Medical Decision Making Medical Decision Making MDM Narrative: 64 yo male with history of depression, PTSD, ETOH use disorder, cocaine use, DM, hx left great toe osteomyelitis, CKD, GERD, HTN, anxiety on klonopin TID, panic attacks ER from home for evaluation of panic attack for the last 2 days. Patient is depressed but not suicidal. Has had several episodes of anxiety and panic attack similar to this. States he always gets better with IV Ativan and IV fluids. Patient's lab workup showed a stable leukocytosis, this is chronic. No evidence of infection. His CKD is at baseline with a creatinine of 1.63. He was found have some mild rhabdomyolysis with CK of 712. This is also chronic. He also has chronic hematuria. He has seen Nephrology in the past for this. Patient was given Ativan and IV fluids with improvement in his anxiety however he then developed some chest burning and discomfort. Cardiac workup was initiated he was treated with Tums with improvement in his symptoms. Second troponin was flat. Patient had improvement in his symptoms. His blood pressure remained elevated however he denied any headache, vision changes, recurrent chest pain. He was given his home propranolol. He was also given his home Klonopin and Zyprexa. His blood pressure improved to the 150s systolic. He is feeling overall improved and would like to go home. At this time he is stable for discharge, not suicidal. Anxiety and symptoms are improved. He will follow up with his PCP and therapist. Differential Diagnosis Differential Diagnoses: The differential diagnosis associated with the presentation includes Acute alcohol withdrawal, anxiety, panic attack, pericarditis, myocarditis, hyperthyroidism, rhabdomyolysis, RICARDO on CKD, polysubstance use Admission/Observation Consideration of admission/observation: Escalation of care including admission/observation considered Lab Data MDM Lab Attestation statement: I reviewed the patient's lab results. Chronic leukocytosis, CKD at baseline 06/19/24 07:24 06/19/24 07:24 Labs: Lab Results 06/19/24 06/19/24 06/19/24 Range/Units 07:24 07:25 07:45 WBC 15.4 H (4.8-10.8) X10*3/uL RBC 5.80 (4.60-5.80) X10*6/uL Hgb 17.2 (14.0-18.0) g/dl Hct 49.0 (42.0-52.0) % MCV 84.5 (80.0-98.0) fL MCH 29.7 (27.0-33.0) pg MCHC 35.1 (31.0-36.0) g/dl RDW 13.8 (11.0-16.0) % Plt Count 234 (160-400) X10*3/uL MPV 10.3 (9.4-12.4) fL Immature Gran % (Auto) 0.6 H (0.0-0.4) % Neut % (Auto) 74.9 H (45-73) % Lymph % (Auto) 14.9 L (20-40) % [place] % (Auto) 9.0 (2-11) % Eos % (Auto) 0.2 (0-4) % Baso % (Auto) 0.4 (0-2) % Lymph # (Auto) 2.3 (1.2-4.9) X10*3/uL Stephenson # (Auto) 1.4 H (0.1-1.2) X10*3/uL Eos # (Auto) 0.0 (0.0-0.4) X10*3/uL Baso # (Auto) 0.1 (0.0-0.2) X10*3/uL Abs Immat Gran (auto) 0.10 H (0.00-0.03) X10*3/uL Absolute Neuts (auto) 11.5 H (2.0-8.3) x10*3/uL Absolute Nucleated RBC 0.000 (0.0-0.012) X10*3/uL Nucleated RBC % (auto) 0.0 (0.0-0.2) /100WBC Sodium 139 (135-145) mmol/L Potassium 3.3 (3.3-5.1) mmol/L Chloride 100 (96-108) mmol/L Carbon Dioxide 23 (22-29) mmol/L Anion Gap 19 (12-20) BUN 30 H (9-16) mg/dL Creatinine 1.63 H (0.5-1.4) mg/dL Estim Creat Clear Calc 57.5 Estimated GFR 43 Random Glucose 162 H (60-115) mg/dL Calcium 9.8 D (8.4-10.2) mg/dL Magnesium 1.7 (1.6-2.6) mg/dL Total Bilirubin 0.7 (0.0-1.0) mg/dL Direct Bilirubin 0.2 (0.0-0.5) mg/dL AST 34 (5-37) U/L ALT 38 (0-40) U/L Alkaline Phosphatase 28 L (39-117) U/L Total Creatine Kinase 712 H (38-174) U/L Troponin I High Sens (<3.5-35.0) ng/L Total Protein 7.8 (6.5-8.0) g/dL Albumin 4.7 (3.5-5.0) g/dL TSH 4.59 H (0.32-4.0) uIU/mL Free T4 0.87 (0.71-1.85) ng/dL Urine Color Dark Yellow Urine Appearance Turbid Urine pH 5.5 (5.0-9.0) Ur Specific [place] >= 1.030 H (1.005-1.025) Urine Protein >=1000 (4+) H (Neg-Trace) mg/dL Urine Glucose (UA) Negative (Negative) mg/dL Urine Ketones Negative (Negative) mg/dL Urine Blood Large (3+) H (Negative) Urine Nitrite Negative (Negative) Ur Leukocyte Esterase Trace H (Negative) Urine RBC >20 H (0-2) /HPF Urine WBC 11-20 H (0-5) /HPF Ur Squamous Epith Cells 11-20 (0-2) /HPF Urine Bacteria None Seen (None Seen) Hyaline Casts 6-10 (0-2) /LPF Urine Opiates Screen Not Detected (Not Detect) Ur Buprenorphine Scrn Not Detected (Not Detect) ng/mL Ur Oxycodone Screen Not Detected (Not Detect) ng/mL Urine Methadone Screen Not Detected (Not Detect) ng/mL Urine Fentanyl Screen Not Detected (Not Detect) Ur Barbiturates Screen Not Detected (Not Detect) Ur Phencyclidine Scrn Not Detected (Not Detect) Ur Amphetamines Screen Not Detected (Not Detect) U Benzodiazepines Scrn POSITIVE H (Not Detect) Urine Cocaine Screen Not Detected (Not Detect) U Marijuana (THC) Screen POSITIVE H (Not Detect) Ethyl Alcohol < 10 mg/dL COVID-19 (RG) Negative (Negative) COVID-19 Clin Com See Note 06/19/24 06/19/24 Range/Units 11:14 13:10 WBC (4.8-10.8) X10*3/uL RBC (4.60-5.80) X10*6/uL Hgb (14.0-18.0) g/dl Hct (42.0-52.0) % MCV (80.0-98.0) fL MCH (27.0-33.0) pg MCHC (31.0-36.0) g/dl RDW (11.0-16.0) % Plt Count (160-400) X10*3/uL MPV (9.4-12.4) fL Immature Gran % (Auto) (0.0-0.4) % Neut % (Auto) (45-73) % Lymph % (Auto) (20-40) % Stephenson % (Auto) (2-11) % Eos % (Auto) (0-4) % Baso % (Auto) (0-2) % Lymph # (Auto) (1.2-4.9) X10*3/uL [place] # (Auto) (0.1-1.2) X10*3/uL Eos # (Auto) (0.0-0.4) X10*3/uL Baso # (Auto) (0.0-0.2) X10*3/uL Abs Immat Gran (auto) (0.00-0.03) X10*3/uL Absolute Neuts (auto) (2.0-8.3) x10*3/uL Absolute Nucleated RBC (0.0-0.012) X10*3/uL Nucleated RBC % (auto) (0.0-0.2) /100WBC Sodium (135-145) mmol/L Potassium (3.3-5.1) mmol/L Chloride (96-108) mmol/L Carbon Dioxide (22-29) mmol/L Anion Gap (12-20) BUN (9-16) mg/dL Creatinine (0.5-1.4) mg/dL Estim Creat Clear Calc Estimated GFR Random Glucose (60-115) mg/dL Calcium (8.4-10.2) mg/dL Magnesium (1.6-2.6) mg/dL Total Bilirubin (0.0-1.0) mg/dL Direct Bilirubin (0.0-0.5) mg/dL AST (5-37) U/L ALT (0-40) U/L Alkaline Phosphatase (39-117) U/L Total Creatine Kinase (38-174) U/L Troponin I High Sens 6.5 D 7.8 (<3.5-35.0) ng/L Total Protein (6.5-8.0) g/dL Albumin (3.5-5.0) g/dL TSH (0.32-4.0) uIU/mL Free T4 (0.71-1.85) ng/dL Urine Color Urine Appearance Urine pH (5.0-9.0) Ur Specific [place] (1.005-1.025) Urine Protein (Neg-Trace) mg/dL Urine Glucose (UA) (Negative) mg/dL Urine Ketones (Negative) mg/dL Urine Blood (Negative) Urine Nitrite (Negative) Ur Leukocyte Esterase (Negative) Urine RBC (0-2) /HPF Urine WBC (0-5) /HPF Ur Squamous Epith Cells (0-2) /HPF Urine Bacteria (None Seen) Hyaline Casts (0-2) /LPF Urine Opiates Screen (Not Detect) Ur Buprenorphine Scrn (Not Detect) ng/mL Ur Oxycodone Screen (Not Detect) ng/mL Urine Methadone Screen (Not Detect) ng/mL Urine Fentanyl Screen (Not Detect) Ur Barbiturates Screen (Not Detect) Ur Phencyclidine Scrn (Not Detect) Ur Amphetamines Screen (Not Detect) U Benzodiazepines Scrn (Not Detect) Urine Cocaine Screen (Not Detect) U Marijuana (THC) Screen (Not Detect) Ethyl Alcohol mg/dL COVID-19 (RG) (Negative) COVID-19 Clin Com Independent Interpretation I performed an independent interpretation of an: EKG and Plain X-Ray Interpretation: EKG with sinus rhythm, ventricular rate 75 beats per minute, incomplete right bundle branch block present which is unchanged from prior, T-wave inversions in the lateral leads unchanged from prior Chest x-ray is clear without any focal opacity or effusion Radiology Impression Discussion of test interpretation with radiology: I have reviewed the radiologist's reading. Radiologist Impression: XR/XR chest 1V IMPRESSION: No acute pulmonary pathology. Independent Historian Clinical information obtained from an independent historian. History obtained from or confirmed by: EMS External Record Review External record reviewed: Outpatient record, Prior outpatient labs and Prior outpatient radiology Prescription Management I considered prescription management with: Other (benzodiazapine ) Chronic Conditions Patient?s care impacted by: Diabetes and Other (PTSD, panic attack) Critical Care Time Critical Care Time Critical Care Time: Yes Total Critical Care Time: 38 Attestation: I have personally provided critical care time exclusive of time spent on separately billable procedures. Time includes review of lab data, radiology results, bedside re-evaluation of hemodynamics, and monitoring for potential decompensation. Intervention performed as documented. Discharge Plan Discharge Clinical Impression: Panic disorder Hypertension Qualifiers: Hypertension type: unspecified Qualified Code(s): I10 - Essential (primary) hypertension Patient Disposition: Home, Self-Care Instructions: Hypertension (ED), Anxiety (ED) Additional Instructions: Your lab workup today was reassuring. Your cardiac enzymes were negative 2 times. Your blood pressure was elevated throughout your stay in the ER today. It is important that you continue all of your blood pressure medications, follow-up with your doctor, recommend monitoring her blood pressure at home to keep a record for your doctor. Follow-up with your therapist and psychiatrist. Do not drink alcohol or use any illicit drugs. If you develop new or worsening symptoms call 911 or come back to the ER for further evaluation. Prescriptions: No Action atorvastatin 20 mg Tablet 20 mg PO BEDTIME propranolol 10 mg Tablet 10 mg PO BID PRN (Reason: Anxiety) clonazepam 1 mg tablet 1 mg PO TID PRN (Reason: Anxiety) venlafaxine 37.5 mg capsule,extended release 24hr 37.5 mg PO DAILY Qty: 30 0RF olanzapine 5 mg Tablet 5 mg PO BID 30 Days Qty: 60 1RF hydroxyzine HCl 25 mg Tablet 25 mg PO Q6H PRN (Reason: Anxiety) 30 Days Qty: 90 1RF trazodone 50 mg Tablet 50 mg PO BEDTIME MRX1 PRN (Reason: Insomnia) 30 Days Qty: 60 1RF Print Language: Panamanian
[2024-06-19 07:29] LABS: MANUAL DIFF FLAG NO
[2024-06-19 07:33] LABS: Basophils Absolute Auto 0.1 X10*3/uL (0.0-0.2); Basophils Percent Auto 0.4 % (0-2); Eosinophils Percent Auto 0.2 % (0-4); Hemoglobin 17.2 g/dl (14.0-18.0); Imm Gran Pct Auto 0.6 % (0.0-0.4); Lymphocytes Absolute Auto 2.3 X10*3/uL (1.2-4.9); Lymphocytes Percent Auto 14.9 % (20-40); Mean Corpuscular HGB Conc 35.1 g/dl (31.0-36.0); Mean Corpuscular Hemoglobin 29.7 pg (27.0-33.0); Mean Corpuscular Volume 84.5 fL (80.0-98.0); Mean Platelet Volume 10.3 fL (9.4-12.4); Monocytes Absolute Auto 1.4 X10*3/uL (0.1-1.2); Neutrophils Absolute Auto 11.5 x10*3/uL (2.0-8.3); Neutrophils Percent Auto 74.9 % (45-73); Platelet Count 234 X10*3/uL (160-400); Red Cell Distribution Width 13.8 % (11.0-16.0); White Blood Count 15.4 X10*3/uL (4.8-10.8)
--- NOTE | 2024-06-19 07:38 | MHC.EDTECH ---
patient blood drawn, and he exchange clerk, Pt belongings in the back of his stretcher.
[2024-06-19 07:48] LABS: COVID-19 Test Negative (Negative); IDNOW Serial# 152EDE1D
[2024-06-19 07:49] LABS: Alanine Aminotransferase 38 U/L (0-40); Albumin Level 4.7 g/dL (3.5-5.0); Alkaline Phosphatase 28 U/L (39-117); Anion Gap 19 (12-20); Aspartate Amino Transferase 34 U/L (5-37); Bilirubin Direct 0.2 mg/dL (0.0-0.5); Bilirubin Total 0.7 mg/dL (0.0-1.0); Blood Urea Nitrogen 30 mg/dL (9-16); Calcium 9.8 mg/dL (8.4-10.2); Carbon Dioxide 23 mmol/L (22-29); Chloride 100 mmol/L (96-108); Creatinine Clr Calc Pharmacy 57.5; Estimated Glomerular Filt Rate 43; Glucose Random 162 mg/dL (60-115); Magnesium 1.7 mg/dL (1.6-2.6); Potassium 3.3 mmol/L (3.3-5.1); Sodium 139 mmol/L (135-145); Total Protein 7.8 g/dL (6.5-8.0)
[2024-06-19 07:52] LABS: Appearance Urine Turbid; Color Urine Dark Yellow; Glucose Urine UA Negative (Negative); Leukocyte Esterase Urine Trace (Negative); Nitrite Urine Negative (Negative); PH 5.5 (5.0-9.0); Specific Gravity - Urine >= 1.030 (1.005-1.025); UMIC TRIGGER UACC YES; Urine Blood Large (3+) (Negative); Urine Ketones Negative (Negative); Urine Protein >=1000 (4+) mg/dL (Neg-Trace)
[2024-06-19 07:55] LABS: Ethanol < 10 mg/dL
[2024-06-19] MEDS: LORazepam 2 MG/ML VIAL IVPUSH (07:59)
[2024-06-19] MEDS: Lactated Ringers 1,000 ML 999 ML IV (07:59)
[2024-06-19 08:03] LABS: Amphetamine Screen Urine Not Detected (Not Detect); Barbiturates, Urine Not Detected (Not Detect); Benzodiazepines Screen Urine POSITIVE (Not Detect); Buprenorphine Scr Not Detected (Not Detect); Cannabinoid Screen Urine POSITIVE (Not Detect); Cocaine Screen Urine Not Detected (Not Detect); Fentanyl, urine Not Detected (Not Detect); Methadone Screen, Urine Not Detected (Not Detect); Opiate Screen Urine Not Detected (Not Detect); Oxycodone Screen Urine Not Detected (Not Detect); Phencyclidine Screen Urine Not Detected (Not Detect)
[2024-06-19 08:10] LABS: TSH reflex Free T4 4.59 uIU/mL (0.32-4.0)
[2024-06-19 08:13] LABS: Bacteria Urine None Seen (None Seen); RBC Urine >20 /HPF (0-2); UACC Culture Trigger YES
[2024-06-19 09:03] LABS: Free T4 (Free Thyroxine) 0.87 ng/dL (0.71-1.85)
--- NOTE | 2024-06-19 09:53 | ECG_ITS ---
Test Reason : CHEST BURNING Blood Pressure : / mmHG Vent. Rate : 075 BPM Atrial Rate : 075 BPM P-R Int : 162 ms QRS Dur : 102 ms QT Int : 390 ms P-R-T Axes : 048 -23 -65 degrees QTc Int : 435 ms Sinus rhythm with Premature supraventricular complexes Incomplete right bundle branch block ST & T wave abnormality, consider lateral ischemia Abnormal ECG When compared with ECG of 20-NOV-2023 12:39, Premature supraventricular complexes are now Present Nonspecific T wave abnormality now evident in Inferior leads T wave inversion now evident in Anterolateral leads QT has shortened Referred By: Manisha Banuelos Electronically Signed By:JR PRASAD
--- NOTE | 2024-06-19 10:12 | MHC.EDTECH ---
Patient EKG taken and was read by the provider, and vitals was taken also and BP is very high (192/102) RN(Paulette) notified.
--- NOTE | 2024-06-19 10:15 | MHC.EDTECH ---
patient moved to room ED22 because he need to be monitor do to hypertensive ( BP IS VERY HIGH)
[2024-06-19] MEDS: 0.9 % Sodium Chloride 1,000 ML 999 ML IVCONT (10:54)
[2024-06-19] MEDS: Calcium Carbonate 750 MG TAB.CHEW 1500 MG PO (10:54)
[2024-06-19] MEDS: Propranolol HCL 10 MG TABLET PO (10:54)
[2024-06-19 11:41] LABS: Troponin-I High Sensitivity 6.5 ng/L (<3.5-35.0)
[2024-06-19 13:35] LABS: Troponin-I High Sensitivity 7.8 ng/L (<3.5-35.0)
[2024-06-19] MEDS: amLODIPine Besylate 5 MG TABLET PO (13:38)
[2024-06-19] MEDS: OLANZapine 5 MG TABLET PO (13:38)
[2024-06-19] MEDS: clonazePAM 1 MG TABLET PO (13:38)
== END 2024-06-19 15:07 | disposition home or self-care (01) ==
PROVIDERS: Physician Assistant; Emergency Provider Emergency Medicine; PCP Physician Assistant Medical
DX: F41.0 Panic disorder [episodic paroxysmal anxiety] (principal); F33.1 Major depressive disorder, recurrent, moderate; I10 Essential (primary) hypertension; F14.90 Cocaine use, unspecified, uncomplicated; R11.0 Nausea; F41.1 Generalized anxiety disorder; F43.0 Acute stress reaction; R07.89 Other chest pain; G47.00 Insomnia, unspecified; F17.210 Nicotine dependence, cigarettes, uncomplicated; Z79.899 Other long term (current) drug therapy; Z11.52 Encounter for screening for COVID-19; Z51.81 Encounter for therapeutic drug level monitoring
CPT/HCPCS: 36415; 71045; 80048; 80076; 80307; 81001; 82550; 83735; 84439; 84443; 84484; 85025; 87086; 87635; 93005; 96365; 96375; 96376; 99285; J2060; J7120

== ENCOUNTER 2024-07-13 13:38 | Inpatient (IN) | payer OTHER, SELFPAY ==
[2024-07-13] VITALS (8 sets, daily range): BP systolic 109–159; BP diastolic 68–99; PULSE 78–92; RESP 16–22; TEMP 36.4–37; O2SAT 89–96; BMI 34.3
--- NOTE | ~2024-07-13 | XR_ITS ---
EXAMINATION: XR CHEST CLINICAL INFORMATION: Cough and fever. COMPARISON: Chest x-ray June 19, 2024 TECHNIQUE: Frontal portable view of the chest was obtained. 2:07 PM FINDINGS: Lungs are clear. No pulmonary vascular congestion. There is no pleural effusion. The heart size is normal. The cardiac and mediastinal contours are normal. There are multilevel degenerative changes of dorsal spine. XR/XR chest 1V IMPRESSION: Unremarkable examination. Electronically signed by: Nick Zaman MD 07/13/2024 04:36 PM EDT RP
--- NOTE | 2024-07-13 13:48 | ECG_ITS ---
Test Reason : PAIN Blood Pressure : / mmHG Vent. Rate : 089 BPM Atrial Rate : 089 BPM P-R Int : 154 ms QRS Dur : 098 ms QT Int : 360 ms P-R-T Axes : 044 013 035 degrees QTc Int : 438 ms Poor data quality, interpretation may be adversely affected Normal sinus rhythm Incomplete right bundle branch block Borderline ECG When compared with ECG of 19-JUN-2024 09:58, Premature supraventricular complexes are no longer Present Nonspecific T wave abnormality, improved in Inferior leads T wave inversion no longer evident in Anterolateral leads Referred By: Manisha Tran Electronically Signed By:ANDRZEJ CASAS MD
[2024-07-13] MEDS: Albuterol Sulfate 5 MG, Albuterol/Iprat 2.5/0.5MG 3 ML 3 ML INHALE (13:53)
--- NOTE | 2024-07-13 14:03 | ED_ITS ---
HPI - URI/Sore Throat General Chief Complaint: Dyspnea Stated Complaint: CHEST TIGHT,COUGH,WHEEZE,DUONEB GIVEN PER EMS Time Seen by Provider: 07/13/24 13:41 Source: patient, EMS and old records reviewed Mode of arrival: EMS Limitations: no limitations History of Present Illness ED Provider: TAHIRA MAS Narrative: 64 yo male with PMH of depression, PTSD, ETOH abuse, cocaine use, DM, hx left great toe osteomyelitis, CKD, GERD, HTN, anxiety, smoker, reactive airway disease states he carries an albuterol inhaler he bought in [employer] who reports one week of couhg, dyspnea, wheezing, chills and green sputum production. He denies sick contacts. EMS on arrival noted audible exp wheezes - gave duoneb and IV 125mg solumedrol. He has chest tightness as well due to breathing. MD elicited complaint: cough Pertinent past history: other (reactive airway disease. ) Onset (ago): day(s) (7) Consistency: constant Severity: moderate Description of mucous: green Able to tolerate fluids by mouth: Yes Exacerbating factors: exertion Relieving factors: nothing Associated symptoms: chills, nasal congestion, cough, chest pain and shortness of breath Treatments prior to arrival: other (albuterol INH) Related Data Home Medications ?Medication ?Instructions ?Recorded ?Confirmed atorvastatin 20 mg tablet 20 mg PO BEDTIME 11/11/21 11/20/23 propranolol 10 mg tablet 10 mg PO BID PRN Anxiety 11/11/21 11/20/23 clonazepam 1 mg tablet 1 mg PO TID PRN Anxiety 02/18/23 11/20/23 Previous Rx's ?Medication ?Instructions ?Recorded venlafaxine 37.5 mg 37.5 mg PO DAILY #30 caps 02/24/23 capsule,extended release 24 hr hydroxyzine HCl 25 mg tablet 25 mg PO Q6H PRN Anxiety 30 days 08/23/23 #90 tabs olanzapine 5 mg tablet 5 mg PO BID 30 days #60 tabs 08/23/23 trazodone 50 mg tablet 50 mg PO BEDTIME MRX1 PRN Insomnia 08/23/23 30 days #60 tabs Allergies Allergy/AdvReac Type Severity Reaction Status Date / Time codeine [CODEINE] AdvReac Severe Nausea Verified 07/13/24 13:54 Review of Systems 2 Review of Systems: Constitutional : pos Fever, pos Chills ENT/Mouth : No Hoarseness, No sore throat, No Rhinorrhea Eyes: No Redness, No Discharge, No Vision Changes Cardiovascular : pos Chest Pain, positive SOB, positive Dyspnea on Exertion, No Edema Respiratory : positive Cough, pos Sputum, positive Wheezing, Gastrointestinal : No Nausea, No Vomiting, No Diarrhea, No abdominal Pain Genitourinary : No Dysuria, No Hematuria Musculoskeletal : No joint pain, No Myalgias Skin : No rash Neuro : No Weakness, No Numbness, No Headache Psych : No anxiety, depression All other systems reviewed and are negative [facility] Past Medical History Attestation statement: The following information was validated with the patient. Source: old records reviewed Medical History Acute viral syndrome Cannabis abuse Cocaine abuse PTSD (post-traumatic stress disorder) Anxiety Hyperlipidemia Depression Osteomyelitis Panic attacks HTN (hypertension) GERD (gastroesophageal reflux disease) Chronic renal insufficiency H/O ETOH abuse Smoker Amputation finger Diabetes Surgical History History of carpal tunnel release of both wrists Hx of foot surgery H/O colonoscopy Family History Family History Other No family history of coronary artery disease Social History Social History Household Members: None Household Members Other:: Self Housing: Apartment Housing Other:: lives in basement of a home Do you presently have visiting nurse or other home services: No Unable to assess alcohol history related to: Refusing to respond Alcohol intake: never Patient Tobacco Use Status: Current everyday Tobacco user Tobacco use type: Cigarette Cigarette Packs Per Day: 0.5 Cigarettes Per Day: 10 Years Smoked: Many Smoked in Last 30 Days: No e-Cigarette/Vaping Use: Currently Using Use of substances other than those prescribed or required for medical reasons: Yes Substance Use Type: Marijuana Substance Use Frequency: Daily Advance Directives: Yes Advance Directives on File: Yes Advance Directives Date on File: 06/24/22 Do you have a plan to hurt others: No Plan service: Yes ([employer] w/ Honorable Discharge) Current occupational status: disabled Sexual orientation: Straight/Heterosexual Physical Exam 2 Vital Signs: Vital Signs: Last Vital Signs Temp 98.2 F 07/13/24 13:51 Pulse 78 07/13/24 15:22 Resp 17 07/13/24 15:22 BP 123/68 07/13/24 15:22 Pulse Ox 92 07/13/24 15:22 O2 Del Method Nasal Cannula 07/13/24 15:22 O2 Flow Rate 4 07/13/24 15:22 BMI result Body Mass Index 34.3 Appearance: Alert. Oriented X3. Mild acute distress. Eyes: Pupils equal, round and reactive to light. ENT: Pharynx normal. Neck: Normal inspection. Neck supple. CVS: Normal heart rate and rhythm. Pulses normal. Respiratory: Mild respiratory distress tachypnea and retractions. Breath sounds coarse and diminished with lower lobe rales and audible exp wheezes Abdomen: Soft and nontender. Skin: Skin warm and dry. Normal skin color. Normal skin turgor. Extremities: No lower extremity edema. No calf ttp Neuro: Oriented X 3. No motor deficit. No sensory deficit. Medications Administered Discontinued Medications Generic Name Dose Route Start Last Admin Trade Name Danielle PRN Reason Stop Dose Admin Albuterol Sulfate 5 mg/ 0 mg 07/13/24 13:50 07/13/24 13:53 Albuterol/Ipratropium 3 ml INHALE 07/13/24 13:51 1 each ONCE ONE Administration Magnesium Sulfate 2 gm in 50 mls @ 25 mls/hr 07/13/24 13:47 07/13/24 15:41 Magnesium Sulfate/H2o IV 07/13/24 15:46 Infused ONCE ONE Infusion Ceftriaxone Sodium 1 gm/ 50 mls @ 100 mls/hr 07/13/24 13:47 07/13/24 15:40 Sodium Chloride IV 07/13/24 14:16 Infused ONCE ONE Infusion Medical Decision Making Medical Decision Making [facility] Narrative: 64 yo male with PMH of depression, PTSD, ETOH abuse, cocaine use, DM, hx left great toe osteomyelitis, CKD, GERD, HTN, anxiety, smoker, reactive airway disease here with one week of URI symptoms now with chills, cough with sputum and chest tightness at this time will need labs, cultures, CXR and start on IV magnesium - already given steroids by EMS. Will start on IV ceftriaxone as well along with azithromycin on arrival and neb therapy he is 88% nebs and is now on new O2 2L NC 93%. Anticipate likely admission Differential Diagnosis Differential Diagnoses: The differential diagnosis associated with the presentation includes URI, viral syndrome, pneumonia Admission/Observation Consideration of admission/observation: Escalation of care including admission/observation considered has new hypoxia will admit for further management Consult Healthcare Provider Management of the patient was discussed with: Hospitalist (will admit) Lab Data MDM Lab Attestation statement: I reviewed the patient's lab results. 07/13/24 14:16 07/13/24 14:16 Labs: Lab Results 07/13/24 Range/Units 14:16 WBC 19.2 H (4.8-10.8) X10*3/uL RBC 5.09 (4.60-5.80) X10*6/uL Hgb 15.1 (14.0-18.0) g/dl Hct 43.0 (42.0-52.0) % MCV 84.5 (80.0-98.0) fL MCH 29.7 (27.0-33.0) pg MCHC 35.1 (31.0-36.0) g/dl RDW 14.0 (11.0-16.0) % Plt Count 345 D (160-400) X10*3/uL MPV 9.3 L (9.4-12.4) fL Immature Gran % (Auto) 0.8 H (0.0-0.4) % Neut % (Auto) 80.4 H (45-73) % Lymph % (Auto) 10.4 L (20-40) % Shannon % (Auto) 7.3 (2-11) % Eos % (Auto) 0.7 (0-4) % Baso % (Auto) 0.4 (0-2) % Lymph # (Auto) 2.0 (1.2-4.9) X10*3/uL Shannon # (Auto) 1.4 H (0.1-1.2) X10*3/uL Eos # (Auto) 0.1 (0.0-0.4) X10*3/uL Baso # (Auto) 0.1 (0.0-0.2) X10*3/uL Abs Immat Gran (auto) 0.16 H (0.00-0.03) X10*3/uL Absolute Neuts (auto) 15.4 H (2.0-8.3) x10*3/uL Absolute Nucleated RBC 0.000 (0.0-0.012) X10*3/uL Nucleated RBC % (auto) 0.0 (0.0-0.2) /100WBC Sodium 136 (135-145) mmol/L Potassium 4.1 D (3.3-5.1) mmol/L Chloride 101 (96-108) mmol/L Carbon Dioxide 21 L (22-29) mmol/L Anion Gap 18 (12-20) BUN 16 (9-16) mg/dL Creatinine 1.06 (0.5-1.4) mg/dL Estim Creat Clear Calc 82.7 Estimated GFR > 60 Random Glucose 111 (60-115) mg/dL Lactic Acid 1.8 (0.5-2.0) mmol/L Calcium 9.4 (8.4-10.2) mg/dL Magnesium 1.6 (1.6-2.6) mg/dL Total Bilirubin 0.9 (0.0-1.0) mg/dL Direct Bilirubin 0.4 (0.0-0.5) mg/dL AST 27 (5-37) U/L ALT 31 (0-40) U/L Alkaline Phosphatase 32 L (39-117) U/L Troponin I High Sens 3.3 D (<3.5-35.0) ng/L B-Natriuretic Peptide < 10 (<100) pg/mL Total Protein 8.0 (6.5-8.0) g/dL Albumin 4.0 (3.5-5.0) g/dL Influenza Type A (PCR) NEGATIVE (Negative) Influenza Type B (PCR) NEGATIVE (Negative) RSV RNA Qual (PCR) NEGATIVE (Negative) SARS-CoV-2 RNA (RT-PCR) NEGATIVE (Negative) Independent Interpretation I performed an independent interpretation of an: EKG and Plain X-Ray Interpretation: Rate: 89 Rhythm: NSR Tamms: normal Normal P waves. Normal NARGIS. Normal QRS complex. ST T wave : nonspecific ST T wave changes lateral leads, no LALO qTC: 438 prior studies: no acute ischemia The study has been interpreted contemporaneously by me. . Radiology Impression Discussion of test interpretation with radiology: I have reviewed the radiologist's reading. Independent Historian Clinical information obtained from an independent historian. History obtained from or confirmed by: EMS External Record Review External record reviewed: Inpatient record Discharge Plan Discharge Clinical Impression: Acute bronchitis, Hypoxia, Elevated WBC count Patient Disposition: Admitted As Inpatient Prescriptions: No Action atorvastatin 20 mg Tablet 20 mg PO BEDTIME propranolol 10 mg Tablet 10 mg PO BID PRN (Reason: Anxiety) clonazepam 1 mg tablet 1 mg PO TID PRN (Reason: Anxiety) venlafaxine 37.5 mg capsule,extended release 24hr 37.5 mg PO DAILY Qty: 30 0RF olanzapine 5 mg Tablet 5 mg PO BID 30 Days Qty: 60 1RF hydroxyzine HCl 25 mg Tablet 25 mg PO Q6H PRN (Reason: Anxiety) 30 Days Qty: 90 1RF trazodone 50 mg Tablet 50 mg PO BEDTIME MRX1 PRN (Reason: Insomnia) 30 Days Qty: 60 1RF Print Language: Slovenian
[2024-07-13] MEDS: cefTRIAXone sodium 1 GM in 0.9 % Sodium Chloride 50 ML IV (14:23)
[2024-07-13 14:24] LABS: MANUAL DIFF FLAG NO
[2024-07-13] MEDS: Magnesium Sulfate/H2O 2 GM/50 ML PIGGYBACK IV (14:24)
[2024-07-13 14:28] LABS: Basophils Absolute Auto 0.1 X10*3/uL (0.0-0.2); Basophils Percent Auto 0.4 % (0-2); Eosinophils Absolute Auto 0.1 X10*3/uL (0.0-0.4); Eosinophils Percent Auto 0.7 % (0-4); Hemoglobin 15.1 g/dl (14.0-18.0); Imm Gran Abs Auto 0.16 X10*3/uL (0.00-0.03); Imm Gran Pct Auto 0.8 % (0.0-0.4); Lymphocytes Percent Auto 10.4 % (20-40); Mean Corpuscular HGB Conc 35.1 g/dl (31.0-36.0); Mean Corpuscular Hemoglobin 29.7 pg (27.0-33.0); Mean Corpuscular Volume 84.5 fL (80.0-98.0); Mean Platelet Volume 9.3 fL (9.4-12.4); Monocytes Absolute Auto 1.4 X10*3/uL (0.1-1.2); Monocytes Percent Auto 7.3 % (2-11); Neutrophils Absolute Auto 15.4 x10*3/uL (2.0-8.3); Neutrophils Percent Auto 80.4 % (45-73); Platelet Count 345 X10*3/uL (160-400); Red Blood Count 5.09 X10*6/uL (4.60-5.80); White Blood Count 19.2 X10*3/uL (4.8-10.8)
[2024-07-13 14:35] LABS: Lactic Acid 1.8 mmol/L (0.5-2.0)
[2024-07-13 14:40] LABS: Alanine Aminotransferase 31 U/L (0-40); Alkaline Phosphatase 32 U/L (39-117); Anion Gap 18 (12-20); Aspartate Amino Transferase 27 U/L (5-37); Bilirubin Direct 0.4 mg/dL (0.0-0.5); Bilirubin Total 0.9 mg/dL (0.0-1.0); Blood Urea Nitrogen 16 mg/dL (9-16); Calcium 9.4 mg/dL (8.4-10.2); Carbon Dioxide 21 mmol/L (22-29); Chloride 101 mmol/L (96-108); Creatinine Clr Calc Pharmacy 82.7; Estimated Glomerular Filt Rate > 60; Glucose Random 111 mg/dL (60-115); Magnesium 1.6 mg/dL (1.6-2.6); Potassium 4.1 mmol/L (3.3-5.1); Sodium 136 mmol/L (135-145)
[2024-07-13 14:44] LABS: B Type Natriuretic Peptide < 10 pg/mL (<100)
[2024-07-13 14:46] LABS: Troponin-I High Sensitivity 3.3 ng/L (<3.5-35.0)
[2024-07-13 15:16] LABS: Influenza A PCR NEGATIVE (Negative); Influenza B PCR NEGATIVE (Negative); Resp Syncy Virus RNA Qual PCR NEGATIVE (Negative); SARS COV2 PCR INHOUSE NEGATIVE (Negative)
[2024-07-13] MEDS: Azithromycin 500 MG in 0.9 % Sodium Chloride 250 ML 125 MG IV (15:46)
[2024-07-13 16:17] LABS: Ethanol < 10 mg/dL
--- NOTE | 2024-07-13 16:54 | PHA.MEDREC ---
Addendum entered by Luz Schwartz RPh 07/13/24 17:04: reviewed Original Note: Pharmacy Consult ? Medication Reconciliation Pharmacy has completed the medication reconciliation. Spoke to patient to confirm med list. Patient states his Dr increased Propranolol 10 mg to tid, claims state BID. Patient states he is on both Venlafaxine 37.5 mg and 150 mg.
--- NOTE | 2024-07-13 16:55 | P.HPHOSP_ITS ---
History of Present Illness Date of Service: 07/13/24 Chief Complaint: Shortness of breath cough A 64-year-old male with a past medical history of anxiety, panic attacks, chronic kidney disease, unspecified liver disease, [id number] type 2 diabetes, GERD, and reactive airway disease (on albuterol) presents with shortness of breath for approximately one week. Symptoms are accompanied by a cough producing green sputum, wheezing, and chills. His inhalers have provided no relief. Chest X-ray shows no acute findings, and his white blood cell count is elevated at 19. Upon presentation, his oxygen saturation was 88% on room air, which improved with supplemental oxygen. In the emergency department, he was treated with nebulized bronchodilators, IV steroids, and ceftriaxone and Azithro. Although he feels better, he remains hypoxic. Review of Systems 2 Review of Systems: Gen: chills Resp: +sob, + cough CV: no chest, no WYATT, no leg edema GI: No n/v, no abd pain Neuro: No confusion Yes all other systems are reviewed and are negative [facility] Medical History Acute viral syndrome Cannabis abuse Cocaine abuse PTSD (post-traumatic stress disorder) Anxiety Hyperlipidemia Depression Osteomyelitis Panic attacks HTN (hypertension) GERD (gastroesophageal reflux disease) Chronic renal insufficiency H/O ETOH abuse Smoker Amputation finger Diabetes Family History Other No family history of coronary artery disease Surgical History History of carpal tunnel release of both wrists Hx of foot surgery H/O colonoscopy Social History Household Members: None Household Members Other:: Self Housing: Apartment Housing Other:: lives in basement of a home Do you presently have visiting nurse or other home services: No Unable to assess alcohol history related to: Refusing to respond Alcohol intake: never Patient Tobacco Use Status: Current everyday Tobacco user Tobacco use type: Cigarette Cigarette Packs Per Day: 0.5 Cigarettes Per Day: 10 Years Smoked: Many Smoked in Last 30 Days: No e-Cigarette/Vaping Use: Currently Using Use of substances other than those prescribed or required for medical reasons: Yes Substance Use Type: Marijuana Substance Use Frequency: Daily Advance Directives: Yes Advance Directives on File: Yes Advance Directives Date on File: 06/24/22 Do you have a plan to hurt others: No Plan service: Yes ([employer] w/ Honorable Discharge) Current occupational status: disabled Sexual orientation: Straight/Heterosexual Meds Allergies Allergy/AdvReac Type Severity Reaction Status Date / Time codeine [CODEINE] AdvReac Severe Nausea Verified 07/13/24 13:54 Home Medications ?Medication ?Instructions ?Recorded ?Confirmed ?Last Taken ?Type atorvastatin 20 mg tablet 20 mg PO BEDTIME 11/11/21 07/13/24 07/12/24 History propranolol 10 mg tablet 10 mg PO TID PRN Anxiety 11/11/21 07/13/24 11/19/23 History clonazepam 1 mg tablet 1 mg PO TID PRN Anxiety 02/18/23 07/13/24 11/19/23 History venlafaxine 150 mg 150 mg PO DAILY 07/13/24 07/13/24 07/13/24 History capsule,extended release 24 hr Physical Exam 2 Vital Signs and Narrative: Vital Signs: Last Vital Signs Temp 98.2 F 07/13/24 13:51 Pulse 78 07/13/24 15:22 Resp 17 07/13/24 15:22 BP 123/68 07/13/24 15:22 Pulse Ox 92 07/13/24 15:22 O2 Del Method Nasal Cannula 07/13/24 15:22 O2 Flow Rate 4 07/13/24 15:22 BMI result Body Mass Index 34.3 Constitutional: Alert, in no distress, overweight Mental Status: Oriented to person, place and time. Eyes: Pupils are equal, round and reactive to light. Ear, Nose and Throat: Oropharynx clear, mucous membranes moist. Ears and nose without deformities. Trachea midline. Respiratory: bilateral wheezes, no accessory muscle Cardiovascular: S1 S2 regular. No murmurs, rubs or gallops. Gastrointestinal: Abdomen soft, non-tender, non-distended. Normal bowel sounds.? Neurologic: Cranial nerves II-XII grossly intact. No focal neurological deficits. Moves all extremities spontaneously.? Skin: No rashes or lesions.? Musculoskeletal: No cyanosis or clubbing. Psychiatric: Normal mood and affect? Results Labs 07/13/24 14:16 07/13/24 14:16 Labs: Laboratory Results - last 24 hr 07/13/24 14:16 MCV 84.5 MCH 29.7 MCHC 35.1 RDW 14.0 Plt Count 345 D MPV 9.3 L Immature Gran % (Auto) 0.8 H Neut % (Auto) 80.4 H Lymph % (Auto) 10.4 L Iron % (Auto) 7.3 Eos % (Auto) 0.7 Baso % (Auto) 0.4 Lymph # (Auto) 2.0 Iron # (Auto) 1.4 H Eos # (Auto) 0.1 Baso # (Auto) 0.1 Abs Immat Gran (auto) 0.16 H Absolute Neuts (auto) 15.4 H Absolute Nucleated RBC 0.000 Nucleated RBC % (auto) 0.0 Anion Gap 18 Estim Creat Clear Calc 82.7 Estimated GFR > 60 Random Glucose 111 Lactic Acid 1.8 Calcium 9.4 Magnesium 1.6 Total Bilirubin 0.9 Direct Bilirubin 0.4 AST 27 ALT 31 Alkaline Phosphatase 32 L Troponin I High Sens 3.3 D B-Natriuretic Peptide < 10 Total Protein 8.0 Albumin 4.0 Ethyl Alcohol < 10 Influenza Type A (PCR) NEGATIVE Influenza Type B (PCR) NEGATIVE RSV RNA Qual (PCR) NEGATIVE SARS-CoV-2 RNA (RT-PCR) NEGATIVE Imaging Radiologist's Impressions: Impressions Chest X-Ray 07/13/24 13:48 IMPRESSION: Unremarkable examination. Electronically signed by: Nick Zaman MD 07/13/2024 04:36 PM EDT RP Assessment and Plan (1) Acute bronchitis: Qualifiers: Bronchitis organism: unspecified organism Qualified Code(s): J20.9 - Acute bronchitis, unspecified Status: Acute (2) Hypoxia: Status: Acute (3) Elevated WBC count: Qualifiers: Leukocytosis type: unspecified Qualified Code(s): D72.829 - Elevated white blood cell count, unspecified Status: Acute Plan 64/m HTN, panic attacks, CKD , liver disease unspecified, non-insulin dependent diabetes type 2, and GERD, reactive airway disease here with cough, sob and wheezing, no PNA on CXR, clinical presentation c/w with acute bronchitis assiciated with hypoxia. Acute hypoxic respiratoryh failure d/t acute bronchitis with bronchospasm -IV steroid, bronchodilators by Neb, Ceftriaxone and Azithro for bronchitis -check respiratory panel DM--on Ozempic weekly, add sliding scle, diabetic diet Obesity, weight loss adised HLD--Lipitor Mood disorder-continue Home DVT prophylaxis--lovenox Quality Stroke Does the patient have a stroke diagnosis?: No VTE Prior VTE?: No VTE Risk Level:: Medical - moderate - high VTE Device Contraindication: Treatment Not Indicated VTE Drug Contraindication: N/A - Med Ordered
[2024-07-13 17:42] LABS: Amphetamine Screen Urine Not Detected (Not Detect); Barbiturates, Urine Not Detected (Not Detect); Benzodiazepines Screen Urine POSITIVE (Not Detect); Buprenorphine Scr Not Detected (Not Detect); Cannabinoid Screen Urine POSITIVE (Not Detect); Cocaine Screen Urine Not Detected (Not Detect); Fentanyl, urine Not Detected (Not Detect); Methadone Screen, Urine Not Detected (Not Detect); Opiate Screen Urine Not Detected (Not Detect); Oxycodone Screen Urine Not Detected (Not Detect); Phencyclidine Screen Urine Not Detected (Not Detect)
[2024-07-13] MEDS: Enoxaparin Sodium 40 MG/0.4 ML SYRINGE SUBCUT (17:51)
--- NOTE | 2024-07-13 19:49 | PC.NURSE ---
Assumed care of pt at 1900. Tech in to do pt vitals and pt c/o not being given his food and that he was not given 6pm medications. Tech trid to explain that we had just taken over and that we will try to get him what he needs. Pt was dismissive and argumentative. Tech left the room to tell this RN. Tech and RN found dinner tray which was left in Main ED, attempted to give pt tray and introduce self. This RN apologized to pt for the delay in his dinner tray but pt states he did not care and he no longer wanted it. Pt demanded tech to take tray away. Pt asked what time this RN took over and expained that this RN just took over at 1900 and that we were sorry but we just took over and we would try to accommodate his needs. Pt stated don't bother and that he was gonna take his medications when he gets home. T/w tried to explain to pt that the medications are ordered by the doctors and pharmacy and the times at the hospital may be slightly different then when at taking them at home. Pt closed eyes and stopped talking to this RN.
[2024-07-13 20:47] LABS: Glucose, Whole Blood 161 mg/dL (60-115)
--- NOTE | 2024-07-13 21:05 | PC.NURSE ---
Pt refusing to take any of medications, stating that they aren't right. Pt states he doesn't take colace or insulin, t/w tried to explain to pt that typically when pts who are diabetic are getting insulin that they are also ordered insulin d/t solumedrol increasing the sugar levels. Pt states he was not going to take it and to give him a prescription so he can take ll his meds at home. Clinical coordinator at the bedside witness to conversation, pt speaking through gritted teeth, then laid back down and covered face with shirt. Clinical coordinator tried to explain to pt that he was requiring oxygen and would not be able to manage at home. Pt taken off oxygen by clinical coordinator. Pt spo2 down to 85-86% on room air. T/w asked pt how he was feeling trying to explain how low his oxygen was, raised voice stating he feels great. This RN asked if he was ever diagnosed with CPOD or ROSCOE and pt stated again through gritted teeth that he was tested and everything was fine. Clinical coordinator messaged and request to come and see pt to discuss staying in the hospital or leaving AMA.
[2024-07-13] MEDS: clonazePAM 1 MG TABLET PO (22:03)
[2024-07-13] MEDS: hydrOXYzine HCL 25 MG TABLET PO (22:04)
--- NOTE | 2024-07-13 22:32 | PC.NURSE ---
Clinical coordinator and had conversation, ordered IV ativan, clinical coordinator at bedside while t/w attempted to give medication. Pt spo2 86%, pt refusing to take ativan. Pt reports he doesn't take that medication, he take klonopin. Review of mediations, pt has PRN hydroxizine and PRN klonopin. Pt requested those medications instead. Medications given to pt. T/w asked pt if we could put the oxygen back on because ptoxygen is low. Pt allowed this RN to do so. Pt still requiring 4l nasal cannula.
[2024-07-14] VITALS (8 sets, daily range): BP systolic 121–142; BP diastolic 81–89; PULSE 81–94; RESP 17–22; TEMP 36.1–37.1; O2SAT 90–96; BMI 33.9
[2024-07-14 05:26] LABS: Alanine Aminotransferase 29 U/L (0-40); Alkaline Phosphatase 30 U/L (39-117); Anion Gap 16 (12-20); Aspartate Amino Transferase 24 U/L (5-37); Bilirubin Total 0.4 mg/dL (0.0-1.0); Blood Urea Nitrogen 17 mg/dL (9-16); Carbon Dioxide 20 mmol/L (22-29); Chloride 105 mmol/L (96-108); Creatinine Clr Calc Pharmacy 83.5; Estimated Glomerular Filt Rate > 60; Glucose Random 133 mg/dL (60-115); Potassium 4.4 mmol/L (3.3-5.1); Sodium 137 mmol/L (135-145); Total Protein 7.8 g/dL (6.5-8.0)
[2024-07-14] MEDS: Albuterol/Iprat 2.5/0.5MG 3 ML AMPUL.NEB INHALE ×4 (05:57→19:25)
--- NOTE | 2024-07-14 07:01 | PC.NURSE ---
Pt requesting IV fluids for his stage 1 kidney dx. BUN:17 creat:1.05. t/w did give pt water and explained he could hydrate this way and pt informed me that iv fluids were the only thing going to get to kidneys. Pt had 2 cups of water on night stand from earlier in the evening that pt did not drink. Pt given a pitcher of water and actively drinking water while telling the RT he has not been given anything to drink in 24 hours. T/w explained to pt that the doctor would have to order it as it is not something that as a nurse can just be given. made aware and no IV fluids ordered at this time. MD believes pt should talk to say team about this. Oncoming RN aware.
[2024-07-14 07:33] LABS: Glucose, Whole Blood 140 mg/dL (60-115)
[2024-07-14 09:14] LABS: Adenovirus PCR Not Detected (Not Detect.); Bordetella parapertussis PCR Not Detected (Not Detect.); Bordetella pertussis PCR Not Detected (Not Detect.); Chlamydia pneumoniae PCR Not Detected (Not Detect.); Coronavirus 229E PCR Not Detected (Not Detect.); Coronavirus HKU1 PCR Not Detected (Not Detect.); Coronavirus NL63 PCR Not Detected (Not Detect.); Coronavirus OC43 PCR Not Detected (Not Detect.); Human metapneumovirus PCR Not Detected (Not Detect.); Influenza A PCR Not Detected (Not Detect.); Influenza B PCR Not Detected (Not Detect.); Mycoplasma pneumoniae PCR Detected (Not Detect.); Parainfluenza 1 PCR Not Detected (Not Detect.); Parainfluenza 2 PCR Not Detected (Not Detect.); Parainfluenza 3 PCR Not Detected (Not Detect.); Parainfluenza 4 PCR Not Detected (Not Detect.); RSV PCR Not Detected (Not Detect.); Rhino/Enterovirus PCR Not Detected (Not Detect.)
[2024-07-14] MEDS: Benzonatate 100 MG CAPSULE PO ×2 (09:23→21:28)
[2024-07-14] MEDS: Venlafaxine HCl ER 37.5 MG CAP.ER.24H PO (09:23)
[2024-07-14] MEDS: Venlafaxine HCl ER 150 MG CAP.ER.24H PO (09:23)
[2024-07-14] MEDS: methylPREDNISolone Sod Succ 40 MG/ML VIAL IVPUSH ×2 (09:23→21:27)
[2024-07-14] MEDS: OLANZapine 5 MG TABLET PO ×2 (09:23→21:27)
[2024-07-14 09:26] LABS: Hematocrit 43.5 % (42.0-52.0); Hemoglobin 15.2 g/dl (14.0-18.0); Mean Corpuscular HGB Conc 34.9 g/dl (31.0-36.0); Mean Corpuscular Hemoglobin 29.3 pg (27.0-33.0); Mean Corpuscular Volume 83.8 fL (80.0-98.0); Mean Platelet Volume 9.3 fL (9.4-12.4); Platelet Count 396 X10*3/uL (160-400); Red Blood Count 5.19 X10*6/uL (4.60-5.80); Red Cell Distribution Width 13.8 % (11.0-16.0); White Blood Count 22.2 X10*3/uL (4.8-10.8)
[2024-07-14 09:27] LABS: SARS-CoV-2 PCR Not Detected (Not Detect.)
[2024-07-14] MEDS: Flu Vacc TS2024-25(6mos up)/PF 0.5 ML SYRINGE IM (09:30)
[2024-07-14] MEDS: 0.9 % Sodium Chloride Flush 3 ML SYRINGE IVFLUSH ×3 (09:33→21:29)
[2024-07-14] MEDS: clonazePAM 1 MG TABLET PO ×2 (09:34→21:27)
[2024-07-14 09:56] LABS: Anion Gap 16 (12-20); Blood Urea Nitrogen 20 mg/dL (9-16); Calcium 10.2 mg/dL (8.4-10.2); Carbon Dioxide 22 mmol/L (22-29); Chloride 102 mmol/L (96-108); Creatinine Clr Calc Pharmacy 79.2; Estimated Glomerular Filt Rate > 60; Glucose Random 184 mg/dL (60-115); Potassium 3.7 mmol/L (3.3-5.1); Sodium 136 mmol/L (135-145)
[2024-07-14 11:44] LABS: Glucose, Whole Blood 99 mg/dL (60-115)
--- NOTE | 2024-07-14 11:59 | P.PNIM_ITS ---
Subjective Subjective Date of Service: 07/14/24 Interval History: f/u acute bronchitis, possible copd exacerebation with acute hypoxic respiratory failure interval history: doing better, yet still very wheezing and raspy and still requiring oxygen Review of Systems Gen: chills Resp: +sob, + cough CV: no chest, no WYATT, no leg edema GI: No n/v, no abd pain Neuro: No confusion Physical Exam 2 Vital Signs: Vital Signs: Last Vital Signs Temp 97.7 F 07/14/24 09:07 Pulse 93 07/14/24 11:55 Resp 18 07/14/24 11:55 BP 121/81 07/14/24 09:07 Pulse Ox 92 07/14/24 09:07 O2 Del Method Nasal Cannula 07/14/24 09:07 O2 Flow Rate 4 07/14/24 09:07 BMI result Body Mass Index 33.9 General CVS: S1,S2,RRR lungs: bilateral wheezing, rhonchi, no accessory muscle use GI: +BS, NT, no distention Skin: No rash Neuro: motor grossly intact Psych: appropriate affect Objective Data Active Medications Acetaminophen (Acetaminophen 325 Mg Tablet) 650 mg PO Q6H PRN PRN Reason: Pain, Mild (Pain Scale 1-3), fever or headache Albuterol Sulfate (Albuterol Sulfate (0.083%) 2.5 Mg/3 Ml Vial.Neb) 2.5 mg INHALE Q2H PRN PRN Reason: Shortness of Breath/Wheezing Albuterol/Ipratropium (Albuterol/Iprat 2.5/0.5mg 3 Ml Ampul.Neb) 3 ml INHALE RQ4H WHILE AWAKE [facility] Last Admin: 07/14/24 11:54 Dose: 3 ml Documented By: ARIADNA Atorvastatin Calcium (Atorvastatin Calcium 20 Mg Tablet) 20 mg PO BEDTIME [facility] Last Admin: 07/13/24 22:04 Dose: Not Given Documented By: NILSA Non-Admin Reason: Patient Refused Benzonatate (Benzonatate 100 Mg Capsule) 100 mg PO TID PRN PRN Reason: Cough Last Admin: 07/14/24 09:23 Dose: 100 mg Documented By: NEDA Calcium Carbonate (Calcium Carbonate 750 Mg Tab.Chew) 750 mg PO Q4H PRN PRN Reason: Heartburn Clonazepam (Clonazepam 1 Mg Tablet) 1 mg PO TID PRN PRN Reason: Anxiety Last Admin: 07/14/24 09:34 Dose: 1 mg Documented By: NEDA Docusate Sodium (Docusate Sodium 100 Mg Capsule) 100 mg PO BID [facility] Last Admin: 07/14/24 10:14 Dose: Not Given Documented By: NEDA Non-Admin Reason: Patient Refused Enoxaparin Sodium (Enoxaparin Sodium 40 Mg/0.4 Ml Syringe) 40 mg SUBCUT Q24H [facility] Last Admin: 07/13/24 17:51 Dose: 40 mg Documented By: JASON Glucose (Glucose Gel 15 Gm Gel..Gram.) 15 gm PO Q15M PRN; Protocol PRN Reason: per Hypoglycemia Standing Ord. Hydroxyzine HCl (Hydroxyzine Hcl 25 Mg Tablet) 25 mg PO Q6H PRN PRN Reason: Anxiety Last Admin: 07/13/24 22:04 Dose: 25 mg Documented By: NILSA Dextrose (D10) 250 mls @ 750 mls/hr IV Q15M PRN; Protocol PRN Reason: per Hypoglycemia Standing Ord. Magnesium Sulfate (Magnesium Sulfate/H2o) 2 gm in 50 mls @ 25 mls/hr IV ONCE ONE Stop: 07/14/24 13:54 Insulin Human Lispro (Insulin Lispro 100 Unit/Ml 3 Ml Vial) 0 unit SUBCUT QIDACHS [facility]; Protocol Last Admin: 07/14/24 11:55 Dose: Not Given Documented By: NEDA Non-Admin Reason: No Insulin Coverage Magnesium Hydroxide (Milk Of Magnesia 30 Ml Oral.Susp) 30 ml PO DAILY PRN PRN Reason: Constipation Melatonin (Melatonin 3 Mg Tablet) 6 mg PO BEDTIME PRN PRN Reason: Insomnia Methylprednisolone Sodium Succinate (Methylprednisolone Sod Succ 40 Mg/Ml Vial) 40 mg IVPUSH BID [facility] Last Admin: 07/14/24 09:23 Dose: 40 mg Documented By: NEDA Olanzapine (Olanzapine 5 Mg Tablet) 5 mg PO BID [facility] Last Admin: 07/14/24 09:23 Dose: 5 mg Documented By: NEDA Ondansetron HCl (Ondansetron Hcl 4 Mg/2 Ml Vial) 4 mg IVPUSH Q8H PRN PRN Reason: Nausea and Vomiting Polyethylene Glycol (Polyethylene Glycol 3350 17 Gm Powd.Pack) 17 gm PO DAILY PRN PRN Reason: Constipation Propranolol HCl (Propranolol Hcl 10 Mg Tablet) 10 mg PO TID PRN; Protocol PRN Reason: Anxiety Sodium Chloride (0.9 % Sodium Chloride Flush 3 Ml Syringe) 3 ml IVFLUSH QSHIFT [facility] Last Admin: 07/14/24 09:33 Dose: 3 ml Documented By: NEDA Trazodone HCl (Trazodone Hcl 50 Mg Tablet) 50 mg PO BEDTIME MRX1 PRN PRN Reason: Insomnia Venlafaxine HCl (Venlafaxine Hcl Er 37.5 Mg Cap.Er.24h) 37.5 mg PO DAILY [facility] Last Admin: 07/14/24 09:23 Dose: 37.5 mg Documented By: NEDA Venlafaxine HCl (Venlafaxine Hcl Er 150 Mg Cap.Er.24h) 150 mg PO DAILY [facility] Last Admin: 07/14/24 09:23 Dose: 150 mg Documented By: NEDA Labs 07/14/24 09:17 07/14/24 09:17 Labs: Laboratory Results - last 24 hr 07/13/24 07/13/24 07/13/24 14:16 17:19 20:39 MCV 84.5 MCH 29.7 MCHC 35.1 RDW 14.0 Plt Count 345 D MPV 9.3 L Immature Gran % (Auto) 0.8 H Neut % (Auto) 80.4 H Lymph % (Auto) 10.4 L Swain % (Auto) 7.3 Eos % (Auto) 0.7 Baso % (Auto) 0.4 Lymph # (Auto) 2.0 Swain # (Auto) 1.4 H Eos # (Auto) 0.1 Baso # (Auto) 0.1 Abs Immat Gran (auto) 0.16 H Absolute Neuts (auto) 15.4 H Absolute Nucleated RBC 0.000 Nucleated RBC % (auto) 0.0 Anion Gap 18 Estim Creat Clear Calc 82.7 Estimated GFR > 60 POC Glucose 161 H Random Glucose 111 Lactic Acid 1.8 Calcium 9.4 Magnesium 1.6 Total Bilirubin 0.9 Direct Bilirubin 0.4 AST 27 ALT 31 Alkaline Phosphatase 32 L Troponin I High Sens 3.3 D B-Natriuretic Peptide < 10 Total Protein 8.0 Albumin 4.0 Urine Opiates Screen Not Detected Ur Buprenorphine Scrn Not Detected Ur Oxycodone Screen Not Detected Urine Methadone Screen Not Detected Urine Fentanyl Screen Not Detected Ur Barbiturates Screen Not Detected Ur Phencyclidine Scrn Not Detected Ur Amphetamines Screen Not Detected U Benzodiazepines Scrn POSITIVE H Urine Cocaine Screen Not Detected U Marijuana (THC) Screen POSITIVE H Ethyl Alcohol < 10 Respiratory Panel [place] Adenovirus (Rapid PCR) B.pert (TEM-PCR) B.parapertussis DNA PCR C. pneumoniae DNA (PCR) Coronavirus OC43 (PCR) Coronavirus HKU1 (PCR) Coronavirus 229E (PCR) Coronavirus NL63 (PCR) Human Metapneumovir PCR Influenza A (RT-PCR) Influenza Type A (PCR) NEGATIVE Influenza B (RT-PCR) Influenza Type B (PCR) NEGATIVE M. pneumoniae (PCR) Parainfluenza 1 (PCR) Parainfluenza 2 (PCR) Parainfluenza 3 (PCR) Parainfluenza 4 (PCR) RSV (PCR) RSV RNA Qual (PCR) NEGATIVE Entero/Rhino (PCR) SARS-CoV-2 RNA (RT-PCR) NEGATIVE 07/14/24 07/14/24 07/14/24 04:50 07:30 07:41 MCV MCH MCHC RDW Plt Count MPV Immature Gran % (Auto) Neut % (Auto) Lymph % (Auto) Swain % (Auto) Eos % (Auto) Baso % (Auto) Lymph # (Auto) Swain # (Auto) Eos # (Auto) Baso # (Auto) Abs Immat Gran (auto) Absolute Neuts (auto) Absolute Nucleated RBC Nucleated RBC % (auto) Anion Gap 16 Estim Creat Clear Calc 83.5 Estimated GFR > 60 POC Glucose 140 H Random Glucose 133 H Lactic Acid Calcium 10.0 D Magnesium Total Bilirubin 0.4 Direct Bilirubin AST 24 ALT 29 Alkaline Phosphatase 30 L Troponin I High Sens B-Natriuretic Peptide Total Protein 7.8 Albumin 4.0 Urine Opiates Screen Ur Buprenorphine Scrn Ur Oxycodone Screen Urine Methadone Screen Urine Fentanyl Screen Ur Barbiturates Screen Ur Phencyclidine Scrn Ur Amphetamines Screen U Benzodiazepines Scrn Urine Cocaine Screen U Marijuana (THC) Screen Ethyl Alcohol Respiratory Panel [place] See Note Adenovirus (Rapid PCR) Not Detected B.pert (TEM-PCR) Not Detected B.parapertussis DNA PCR Not Detected C. pneumoniae DNA (PCR) Not Detected Coronavirus OC43 (PCR) Not Detected Coronavirus HKU1 (PCR) Not Detected Coronavirus 229E (PCR) Not Detected Coronavirus NL63 (PCR) Not Detected Human Metapneumovir PCR Not Detected Influenza A (RT-PCR) Not Detected Influenza Type A (PCR) Influenza B (RT-PCR) Not Detected Influenza Type B (PCR) M. pneumoniae (PCR) Detected A Parainfluenza 1 (PCR) Not Detected Parainfluenza 2 (PCR) Not Detected Parainfluenza 3 (PCR) Not Detected Parainfluenza 4 (PCR) Not Detected RSV (PCR) Not Detected RSV RNA Qual (PCR) Entero/Rhino (PCR) Not Detected SARS-CoV-2 RNA (RT-PCR) Not Detected 07/14/24 07/14/24 09:17 11:40 MCV 83.8 MCH 29.3 MCHC 34.9 RDW 13.8 Plt Count 396 MPV 9.3 L Immature Gran % (Auto) Neut % (Auto) Lymph % (Auto) Swain % (Auto) Eos % (Auto) Baso % (Auto) Lymph # (Auto) Swain # (Auto) Eos # (Auto) Baso # (Auto) Abs Immat Gran (auto) Absolute Neuts (auto) Absolute Nucleated RBC 0.000 Nucleated RBC % (auto) 0.0 Anion Gap 16 Estim Creat Clear Calc 79.2 Estimated GFR > 60 POC Glucose 99 Random Glucose 184 H Lactic Acid Calcium 10.2 Magnesium Total Bilirubin Direct Bilirubin AST ALT Alkaline Phosphatase Troponin I High Sens B-Natriuretic Peptide Total Protein Albumin Urine Opiates Screen Ur Buprenorphine Scrn Ur Oxycodone Screen Urine Methadone Screen Urine Fentanyl Screen Ur Barbiturates Screen Ur Phencyclidine Scrn Ur Amphetamines Screen U Benzodiazepines Scrn Urine Cocaine Screen U Marijuana (THC) Screen Ethyl Alcohol Respiratory Panel [place] Adenovirus (Rapid PCR) B.pert (TEM-PCR) B.parapertussis DNA PCR C. pneumoniae DNA (PCR) Coronavirus OC43 (PCR) Coronavirus HKU1 (PCR) Coronavirus 229E (PCR) Coronavirus NL63 (PCR) Human Metapneumovir PCR Influenza A (RT-PCR) Influenza Type A (PCR) Influenza B (RT-PCR) Influenza Type B (PCR) M. pneumoniae (PCR) Parainfluenza 1 (PCR) Parainfluenza 2 (PCR) Parainfluenza 3 (PCR) Parainfluenza 4 (PCR) RSV (PCR) RSV RNA Qual (PCR) Entero/Rhino (PCR) SARS-CoV-2 RNA (RT-PCR) Assessment and Plan (1) Acute bronchitis: Status: Acute (2) Elevated WBC count: Status: Acute (3) Hypoxia: Status: Acute Plan 64/m HTN, panic attacks, CKD , liver disease unspecified, non-insulin dependent diabetes type 2, and GERD, reactive airway disease here with cough, sob and wheezing, no PNA on CXR, clinical presentation c/w with acute bronchitis assiciated with hypoxia. Acute hypoxic respiratory failure d/t acute bronchitis with bronchospasm, ? copd--still with some distress -+Mycoplasma pneumonia on resp panel -IV steroid, bronchodilators, has been on Doxy and ceftriaxone -check respiratory panel DM--on Ozempic weekly. -continue sliding scle -diabetic diet Leukocytosis--d/t above and steroid Obesity- - weight loss advised HLD--Lipitor Mood disorder-continue Home DVT prophylaxis--lovenox Quality Stroke Does the patient have a stroke diagnosis?: No VTE Prior VTE?: No VTE Risk Level:: Medical - moderate - high VTE Device Contraindication: Treatment Not Indicated VTE Drug Contraindication: N/A - Med Ordered
[2024-07-14] MEDS: Doxycycline Monohydrate 100 MG CAPSULE PO ×2 (12:20→23:51)
[2024-07-14] MEDS: cefTRIAXone sodium 1 GM in 0.9 % Sodium Chloride 50 ML IV (12:20)
[2024-07-14] MEDS: Magnesium Sulfate/H2O 2 GM/50 ML PIGGYBACK IV (13:03)
--- NOTE | 2024-07-14 13:09 | MHC.CM.PN ---
PT REPORTS HE LIVES ALONE AND IS INDEPENDENT WITH CARE HE IS ACTIVE WITH [facility] FOR MENTAL HEALTH TREATMENT HE HAS DM SUPPLIES FOR DME HCP ON FILE PCP: AUSTIN BALDWIN AT [facility] DCP: HOME NO SERVICES VIA PRIVATE TRANSPORT
[2024-07-14 16:13] LABS: Glucose, Whole Blood 180 mg/dL (60-115)
[2024-07-14] MEDS: Insulin Lispro 100 UNIT/ML 3 ML VIAL SUBCUT (17:10)
[2024-07-14] MEDS: Enoxaparin Sodium 40 MG/0.4 ML SYRINGE SUBCUT (17:10)
[2024-07-14] MEDS: Omeprazole 20 MG CAPSULE.DR PO (18:20)
[2024-07-14 19:33] LABS: Glucose, Whole Blood 141 mg/dL (60-115)
[2024-07-14] MEDS: Atorvastatin Calcium 20 MG TABLET PO (21:28)
[2024-07-14] MEDS: traZODone HCL 50 MG TABLET PO (21:28)
[2024-07-14] MEDS: hydrOXYzine HCL 25 MG TABLET PO (21:45)
[2024-07-15] VITALS (11 sets, daily range): BP systolic 118–145; BP diastolic 73–92; PULSE 65–87; RESP 16–20; TEMP 36.3–36.8; O2SAT 90–94
[2024-07-15] MEDS: Omeprazole 20 MG CAPSULE.DR PO (05:44)
[2024-07-15 07:38] LABS: Glucose, Whole Blood 144 mg/dL (60-115)
[2024-07-15] MEDS: Albuterol/Iprat 2.5/0.5MG 3 ML AMPUL.NEB INHALE ×4 (07:49→19:13)
[2024-07-15] MEDS: methylPREDNISolone Sod Succ 40 MG/ML VIAL IVPUSH ×2 (09:22→21:11)
[2024-07-15] MEDS: Venlafaxine HCl ER 150 MG CAP.ER.24H PO (09:22)
[2024-07-15] MEDS: 0.9 % Sodium Chloride Flush 3 ML SYRINGE IVFLUSH ×3 (09:22→23:26)
[2024-07-15] MEDS: OLANZapine 5 MG TABLET PO ×2 (09:22→21:10)
[2024-07-15] MEDS: clonazePAM 1 MG TABLET PO ×2 (09:22→17:19)
[2024-07-15] MEDS: Venlafaxine HCl ER 37.5 MG CAP.ER.24H PO (09:22)
--- NOTE | 2024-07-15 10:14 | MHC.CM.PN ---
Per MD rounds patient not medically cleared for dc. Potential dc home tomorrow, self care. CM will continue to follow.
[2024-07-15 10:30] LABS: Hematocrit 41.7 % (42.0-52.0); Hemoglobin 14.2 g/dl (14.0-18.0); Mean Corpuscular HGB Conc 34.1 g/dl (31.0-36.0); Mean Corpuscular Hemoglobin 28.9 pg (27.0-33.0); Mean Corpuscular Volume 84.9 fL (80.0-98.0); Mean Platelet Volume 9.3 fL (9.4-12.4); Platelet Count 405 X10*3/uL (160-400); Red Blood Count 4.91 X10*6/uL (4.60-5.80); Red Cell Distribution Width 14.1 % (11.0-16.0); White Blood Count 18.5 X10*3/uL (4.8-10.8)
--- NOTE | 2024-07-15 10:54 | HO.PM.IMPN ---
Subjective Subjective Date of Service: 07/15/24 Interval History: f/u acute bronchitis, possible copd exacerebation with acute hypoxic respiratory failure interval history: He feels a lot better, still with cough, Review of Systems Gen: no chills Resp: -sob, + cough CV: no chest, no WYATT, no leg edema GI: No n/v, no abd pain Neuro: No confusion Physical Exam Vital Signs: Vital Signs: Last Vital Signs Temp 97.6 F 07/15/24 07:16 Pulse 87 07/15/24 07:49 Resp 18 07/15/24 07:49 BP 137/83 07/15/24 07:16 Pulse Ox 93 07/15/24 09:39 O2 Del Method Nasal Cannula 07/15/24 09:39 O2 Flow Rate 3 07/15/24 09:39 BMI result Body Mass Index 33.9 General: overall feels more comfortable, CVS: S1,S2,RRR lungs: less wheezing, +rhonchi, no accessory muscle use GI: +BS, NT, no distention Skin: No rash Neuro: motor grossly intact Psych: appropriate affect Objective Data Active Medications Acetaminophen (Acetaminophen 325 Mg Tablet) 650 mg PO Q6H PRN PRN Reason: Pain, Mild (Pain Scale 1-3), fever or headache Albuterol Sulfate (Albuterol Sulfate (0.083%) 2.5 Mg/3 Ml Vial.Neb) 2.5 mg INHALE Q2H PRN PRN Reason: Shortness of Breath/Wheezing Albuterol/Ipratropium (Albuterol/Iprat 2.5/0.5mg 3 Ml Ampul.Neb) 3 ml INHALE RQ4H WHILE AWAKE [facility] Last Admin: 07/15/24 07:49 Dose: 3 ml Documented By: ELLIOTT Atorvastatin Calcium (Atorvastatin Calcium 20 Mg Tablet) 20 mg PO BEDTIME [facility] Last Admin: 07/14/24 21:28 Dose: 20 mg Documented By: CASTILM Benzonatate (Benzonatate 100 Mg Capsule) 100 mg PO TID PRN PRN Reason: Cough Last Admin: 07/14/24 21:28 Dose: 100 mg Documented By: FREDERICK Calcium Carbonate (Calcium Carbonate 750 Mg Tab.Chew) 750 mg PO Q4H PRN PRN Reason: Heartburn Clonazepam (Clonazepam 1 Mg Tablet) 1 mg PO TID PRN PRN Reason: Anxiety Last Admin: 07/15/24 09:22 Dose: 1 mg Documented By: NEDA Docusate Sodium (Docusate Sodium 100 Mg Capsule) 100 mg PO BID [facility] Last Admin: 07/15/24 09:24 Dose: Not Given Documented By: NEDA Non-Admin Reason: Patient Refused Doxycycline Monohydrate (Doxycycline Monohydrate 100 Mg Capsule) 100 mg PO Q12H [facility] Last Admin: 07/14/24 23:51 Dose: 100 mg Documented By: FREDERICK Enoxaparin Sodium (Enoxaparin Sodium 40 Mg/0.4 Ml Syringe) 40 mg SUBCUT Q24H [facility] Last Admin: 07/14/24 17:10 Dose: 40 mg Documented By: NEDA Glucose (Glucose Gel 15 Gm Gel..Gram.) 15 gm PO Q15M PRN; Protocol PRN Reason: per Hypoglycemia Standing Ord. Hydroxyzine HCl (Hydroxyzine Hcl 25 Mg Tablet) 25 mg PO Q6H PRN PRN Reason: Anxiety Last Admin: 07/14/24 21:45 Dose: 25 mg Documented By: FREDERICK Dextrose (D10) 250 mls @ 750 mls/hr IV Q15M PRN; Protocol PRN Reason: per Hypoglycemia Standing Ord. Ceftriaxone Sodium 1 gm/ (Sodium Chloride) 50 mls @ 100 mls/hr IV Q24H [facility] Last Infusion: 07/14/24 13:06 Dose: Infused Documented By: LEXY Insulin Human Lispro (Insulin Lispro 100 Unit/Ml 3 Ml Vial) 0 unit SUBCUT QIDACHS [facility]; Protocol Last Admin: 07/15/24 09:23 Dose: Not Given Documented By: NEDA Non-Admin Reason: No Insulin Coverage Magnesium Hydroxide (Milk Of Magnesia 30 Ml Oral.Susp) 30 ml PO DAILY PRN PRN Reason: Constipation Melatonin (Melatonin 3 Mg Tablet) 6 mg PO BEDTIME PRN PRN Reason: Insomnia Methylprednisolone Sodium Succinate (Methylprednisolone Sod Succ 40 Mg/Ml Vial) 40 mg IVPUSH BID [facility] Last Admin: 07/15/24 09:22 Dose: 40 mg Documented By: NEDA Olanzapine (Olanzapine 5 Mg Tablet) 5 mg PO BID [facility] Last Admin: 07/15/24 09:22 Dose: 5 mg Documented By: NEDA Omeprazole (Omeprazole 20 Mg Capsule.Dr) 20 mg PO DAILY@0630 [facility] Last Admin: 07/15/24 05:44 Dose: 20 mg Documented By: FREDERICK Ondansetron HCl (Ondansetron Hcl 4 Mg/2 Ml Vial) 4 mg IVPUSH Q8H PRN PRN Reason: Nausea and Vomiting Polyethylene Glycol (Polyethylene Glycol 3350 17 Gm Powd.Pack) 17 gm PO DAILY PRN PRN Reason: Constipation Propranolol HCl (Propranolol Hcl 10 Mg Tablet) 10 mg PO TID PRN; Protocol PRN Reason: Anxiety Sodium Chloride (0.9 % Sodium Chloride Flush 3 Ml Syringe) 3 ml IVFLUSH QSHIFT [facility] Last Admin: 07/15/24 09:22 Dose: 3 ml Documented By: NEDA Trazodone HCl (Trazodone Hcl 50 Mg Tablet) 50 mg PO BEDTIME MRX1 PRN PRN Reason: Insomnia Last Admin: 07/14/24 21:28 Dose: 50 mg Documented By: FREDERICK Venlafaxine HCl (Venlafaxine Hcl Er 37.5 Mg Cap.Er.24h) 37.5 mg PO DAILY [facility] Last Admin: 07/15/24 09:22 Dose: 37.5 mg Documented By: NEDA Venlafaxine HCl (Venlafaxine Hcl Er 150 Mg Cap.Er.24h) 150 mg PO DAILY [facility] Last Admin: 07/15/24 09:22 Dose: 150 mg Documented By: NEDA Labs 07/15/24 10:13 07/14/24 09:17 Labs: Laboratory Results - last 24 hr 07/14/24 07/14/24 07/14/24 11:40 16:03 19:23 MCV MCH MCHC RDW Plt Count MPV Absolute Nucleated RBC Nucleated RBC % (auto) POC Glucose 99 180 H 141 H 07/15/24 07/15/24 07:21 10:13 MCV 84.9 MCH 28.9 MCHC 34.1 RDW 14.1 Plt Count 405 H MPV 9.3 L Absolute Nucleated RBC 0.000 Nucleated RBC % (auto) 0.0 POC Glucose 144 H Microbiology Microbiology Results: Microbiology 07/13/24 14:16 Blood Culture - Preliminary Blood - Venous No growth after 24 hours. 07/13/24 14:16 Blood Culture - Preliminary Blood - Venous No growth after 24 hours. Assessment and Plan (1) Acute bronchitis: Status: Acute (2) Elevated WBC count: Status: Acute (3) Hypoxia: Status: Acute Plan 64/m HTN, panic attacks, CKD , liver disease unspecified, non-insulin dependent diabetes type 2, and GERD, reactive airway disease here with cough, sob and wheezing, no PNA on CXR, clinical presentation c/w with acute bronchitis assiciated with hypoxia. Acute hypoxic respiratory failure d/t acute bronchitis with bronchospasm, ? copd--still with some distress -+Mycoplasma pneumonia on resp panel -IV steroid, bronchodilators, has been on Doxy and ceftriaxone -robitussin and tessalon for cough DM--on Ozempic weekly. -continue sliding scle -diabetic diet Leukocytosis--d/t above and steroid, better Obesity- - weight loss advised HLD--Lipitor Mood disorder-continue Home DVT prophylaxis--lovenox Quality Stroke Does the patient have a stroke diagnosis?: No VTE Prior VTE?: No VTE Risk Level:: Medical - moderate - high VTE Device Contraindication: Treatment Not Indicated VTE Drug Contraindication: N/A - Med Ordered
[2024-07-15 11:22] LABS: Glucose, Whole Blood 130 mg/dL (60-115)
[2024-07-15] MEDS: cefTRIAXone sodium 1 GM in 0.9 % Sodium Chloride 50 ML IV (12:12)
[2024-07-15] MEDS: Doxycycline Monohydrate 100 MG CAPSULE PO ×2 (12:13→23:24)
[2024-07-15] MEDS: Propranolol HCL 10 MG TABLET PO ×2 (12:23→21:10)
[2024-07-15 16:03] LABS: Glucose, Whole Blood 185 mg/dL (60-115)
[2024-07-15] MEDS: Enoxaparin Sodium 40 MG/0.4 ML SYRINGE SUBCUT (17:06)
[2024-07-15] MEDS: Insulin Lispro 100 UNIT/ML 3 ML VIAL SUBCUT (17:06)
[2024-07-15 20:38] LABS: Glucose, Whole Blood 116 mg/dL (60-115)
[2024-07-15] MEDS: traZODone HCL 50 MG TABLET PO (21:10)
[2024-07-15] MEDS: hydrOXYzine HCL 25 MG TABLET PO (21:10)
[2024-07-15] MEDS: Atorvastatin Calcium 20 MG TABLET PO (21:11)
[2024-07-16 03:26] VITALS: BP 159/92; PULSE 65; RESP 16; TEMP 36.3; O2SAT 93
[2024-07-16] MEDS: Omeprazole 20 MG CAPSULE.DR PO (05:35)
[2024-07-16 07:06] LABS: Hematocrit 42.9 % (42.0-52.0); Hemoglobin 14.6 g/dl (14.0-18.0); Mean Corpuscular Hemoglobin 29.1 pg (27.0-33.0); Mean Corpuscular Volume 85.6 fL (80.0-98.0); Mean Platelet Volume 9.4 fL (9.4-12.4); Platelet Count 425 X10*3/uL (160-400); Red Blood Count 5.01 X10*6/uL (4.60-5.80); Red Cell Distribution Width 14.3 % (11.0-16.0)
[2024-07-16 07:28] LABS: Glucose, Whole Blood 123 mg/dL (60-115)
[2024-07-16 07:42] VITALS: BP 140/91; PULSE 71; RESP 18; TEMP 36.4; O2SAT 93
[2024-07-16 08:38] VITALS: PULSE 84; RESP 18; O2SAT 91
[2024-07-16] MEDS: Albuterol/Iprat 2.5/0.5MG 3 ML AMPUL.NEB INHALE ×2 (08:38→11:37)
[2024-07-16] MEDS: OLANZapine 5 MG TABLET PO (09:03)
[2024-07-16] MEDS: Venlafaxine HCl ER 150 MG CAP.ER.24H PO (09:03)
[2024-07-16] MEDS: Venlafaxine HCl ER 37.5 MG CAP.ER.24H PO (09:04)
[2024-07-16] MEDS: Docusate Sodium 100 MG CAPSULE PO (09:04)
[2024-07-16] MEDS: methylPREDNISolone Sod Succ 40 MG/ML VIAL IVPUSH (09:04)
[2024-07-16] MEDS: 0.9 % Sodium Chloride Flush 3 ML SYRINGE IVFLUSH (09:08)
[2024-07-16 09:39] VITALS: O2SAT 95
--- NOTE | 2024-07-16 11:00 | PM.DS ---
DS: Providers Provider Date of Service: 07/16/24 Date of admission: 07/13/24 17:21 Primary care physician: EDWIGE Guo DS: Diagnosis Discharge Diagnosis (1) Acute bronchitis: Status: Acute (2) Elevated WBC count: Status: Acute (3) Hypoxia: Status: Resolved DS: Summary Hospital Course Hospital Course: admission hpi Chief Complaint: Shortness of breath cough A 64-year-old male with a past medical history of anxiety, panic attacks, chronic kidney disease, unspecified liver disease, [id number] type 2 diabetes, GERD, and reactive airway disease (on albuterol) presents with shortness of breath for approximately one week. Symptoms are accompanied by a cough producing green sputum, wheezing, and chills. His inhalers have provided no relief. Chest X-ray shows no acute findings, and his white blood cell count is elevated at 19. Upon presentation, his oxygen saturation was 88% on room air, which improved with supplemental oxygen. In the emergency department, he was treated with nebulized bronchodilators, IV steroids, and ceftriaxone and Azithro. Although he feels better, he remains hypoxic. Hospital course: The patient has a likely history of COPD, having quit smoking only 3 months ago, and uses inhalers regularly. He presented with shortness of breath, cough, and wheezing. A chest X-ray was negative for pneumonia, but his WBC count was elevated. He was hypoxic on room air, improving with supplemental oxygen. He was admitted for the management of acute bronchitis with acute hypoxic respiratory failure and was treated with oxygen, IV antibiotics (ceftriaxone and doxycycline), bronchodilators, and steroids. During his hospitalization, his condition significantly improved. His lungs are now clear, and he is off oxygen, maintaining oxygen saturation at 95% on room air. His initial WBC was 19, increased to 22, and has now decreased to 19. This elevation is likely due to steroid use, and the WBC count will be rechecked after completing his courses of antibiotics and steroids. He will be discharged with doxycycline for an additional 7 days and prednisone for 2 more days, totaling 5 days of steroid treatment. DM--on Ozempic weekly, add sliding scle, diabetic diet Obesity, weight loss adised HLD--Lipitor Mood disorder-continue Home Time Attestation Discharge Coordination Time (in mins): 35 Quality: Safe Use of Opioids Does Pt have an Active Cancer Diagnosis on the Problem List?: No Quality: Stroke Does the patient have a stroke diagnosis?: No Physical Exam Vital Signs: Vital Signs: Last Vital Signs Temp 97.5 F 07/16/24 07:42 Pulse 84 07/16/24 08:38 Resp 18 07/16/24 08:38 BP 140/91 H 07/16/24 07:42 Pulse Ox 95 07/16/24 09:39 O2 Del Method Room Air 07/16/24 09:39 O2 Flow Rate 3 07/16/24 07:42 BMI result Body Mass Index 33.9 DS: Data Data Completed and Pending Completed studies during hospitalization [Text1]: Procedures Insertion of Infusion Device into Superior Vena Cava, Percutaneous Approach (01/23/22) Ultrasonography of Superior Vena Cava, Guidance (01/23/22) Labs on day of discharge: Laboratory Results - last 24 hr 07/15/24 07/15/24 07/15/24 11:18 16:00 20:35 WBC RBC Hgb Hct MCV MCH MCHC RDW Plt Count MPV Absolute Nucleated RBC Nucleated RBC % (auto) POC Glucose 130 H 185 H 116 H 07/16/24 07/16/24 06:07 07:05 WBC 19.0 H RBC 5.01 Hgb 14.6 Hct 42.9 MCV 85.6 MCH 29.1 MCHC 34.0 RDW 14.3 Plt Count 425 H MPV 9.4 Absolute Nucleated RBC 0.000 Nucleated RBC % (auto) 0.0 POC Glucose 123 H Preliminary micro results at discharge 07/13/24 14:16 Blood Culture - Preliminary Blood - Venous No growth after 48 hours. 07/13/24 14:16 Blood Culture - Preliminary Blood - Venous No growth after 48 hours. Discharge Plan Discharge Anticipated Discharge Date/Time: 07/16/24 10:44 Patient Disposition: Home, Self-Care Discharge Diagnosis: Acute hypoxic reapiratory failure, acute bronchitis Referrals: Daron Oconnell PA [Primary Care Provider] - 1 Week Discharge Medications: New doxycycline monohydrate 100 mg Capsule 100 mg PO Q12H Qty: 14 0RF prednisone 10 mg tablet 30 mg PO DAILY Qty: 6 0RF albuterol sulfate 90 mcg/actuation HFA aerosol inhaler 2 inh inhalation Q6-8H PRN (Reason: shortness of breath or wheezing) Qty: 18 0RF Continued atorvastatin 20 mg Tablet 20 mg PO BEDTIME propranolol 10 mg Tablet 10 mg PO TID PRN (Reason: Anxiety) clonazepam 1 mg tablet 1 mg PO TID PRN (Reason: Anxiety) venlafaxine 37.5 mg capsule,extended release 24hr 37.5 mg PO DAILY Qty: 30 0RF olanzapine 5 mg Tablet 5 mg PO BID 30 Days Qty: 60 1RF hydroxyzine HCl 25 mg Tablet 25 mg PO Q6H PRN (Reason: Anxiety) 30 Days Qty: 90 1RF trazodone 50 mg Tablet 50 mg PO BEDTIME MRX1 PRN (Reason: Insomnia) 30 Days Qty: 60 1RF venlafaxine 150 mg capsule,extended release 24hr 150 mg PO DAILY Discharge Orders: Discharge Order (Routine); Ordered 07/16/24 Ordered By: Ray Olea Diet: Advance to usual diet Activity on Discharge: As tolerated Stand Alone Forms: Patient Portal Discharge page Print Language: Setswana Other Ambulatory Orders: Complete Blood Count no Diff (Routine) Timeframe: 1 Week Facility: [facility] - Location: Laboratory Ordered By: Ray Olea Care Plan Goals: recovery from mycoplasma pneumonnia Health Concerns: Mycoplasma pneumonia copd exacerbation Plan of Treatment: Take Prednisone as directed for Use inhalers as directed Take Doxycyline as recommended and follow up with your doctor rochelle week, call for appointment Assessment: see above Discharge Date/Time: 07/16/24 13:31
--- NOTE | 2024-07-16 11:21 | MHC.CM.PN ---
PT TO DC HOME TODAY WITH RESUMPTION OF HIS MH SERVICES FAMILY TO TRANSPORT
[2024-07-16 11:38] VITALS: PULSE 98; RESP 18; O2SAT 98
[2024-07-16 11:46] LABS: Glucose, Whole Blood 108 mg/dL (60-115)
[2024-07-16] MEDS: cefTRIAXone sodium 1 GM VIAL IVPUSH (12:30)
[2024-07-16] MEDS: Doxycycline Monohydrate 100 MG CAPSULE PO (12:30)
== END 2024-07-16 13:31 | disposition home or self-care (01) | DRG 202 ==
LOC: HO.ED 15:48 → HO.EDOVER 17:28 → HO.S3 07-14 07:54
PROVIDERS: Admitting Provider Internal Medicine; Emergency Provider Emergency Medicine; PCP Physician Assistant Medical; Referring Provider Emergency Medicine; Visit Provider Internal Medicine
DX: J20.9 Acute bronchitis, unspecified (principal); J96.01 Acute respiratory failure with hypoxia; J44.0 Chronic obstructive pulmonary disease with (acute) lower respiratory infection; J44.1 Chronic obstructive pulmonary disease with (acute) exacerbation; F43.10 Post-traumatic stress disorder, unspecified; K21.9 Gastro-esophageal reflux disease without esophagitis; I12.9 Hypertensive chronic kidney disease with stage 1 through stage 4 chronic kidney disease, or unspecified chronic kidney disease; N18.9 Chronic kidney disease, unspecified; B96.0 Mycoplasma pneumoniae [M. pneumoniae] as the cause of diseases classified elsewhere; E11.22 Type 2 diabetes mellitus with diabetic chronic kidney disease; E78.5 Hyperlipidemia, unspecified; E66.9 Obesity, unspecified; Z20.822 Contact with and (suspected) exposure to COVID-19; Z68.33 Body mass index [BMI] 33.0-33.9, adult; Z23 Encounter for immunization; Z87.891 Personal history of nicotine dependence; Z79.899 Other long term (current) drug therapy
CPT/HCPCS: 0241U; 36415; 71045; 80048; 80053; 80076; 80307; 82947; 83605; 83735; 83880; 84484; 85025; 85027; 87040; 87633; 90656; 93005; 94640; 99285; J0456; J0696; J1650; J2060; J2919; J3475

== ENCOUNTER → 2024-07-13 13:48 | Outpatient (BNV) | payer OTHER, SELFPAY | PROVIDERS: Emergency Provider Emergency Medicine; PCP Physician Assistant Medical; Visit Provider Internal Medicine Cardiovascular Disease | DX: I45.10 Unspecified right bundle-branch block (principal) | CPT/HCPCS: 93010 ==

== ENCOUNTER → 2024-07-13 17:21 | Outpatient (BNV) | payer OTHER, SELFPAY | PROVIDERS: Admitting Provider Internal Medicine; Emergency Provider Emergency Medicine; PCP Physician Assistant Medical; Visit Provider Internal Medicine | DX: J96.01 Acute respiratory failure with hypoxia (principal); J20.9 Acute bronchitis, unspecified; D72.829 Elevated white blood cell count, unspecified | CPT/HCPCS: 99223; 99232; 99239 ==

== ENCOUNTER 2024-08-30 10:02 | Emergency (ER) | payer OTHER, SELFPAY ==
[2024-08-30] VITALS (9 sets, daily range): BP systolic 140–202; BP diastolic 89–120; PULSE 57–82; RESP 16–25; TEMP 36.6–36.9; O2SAT 95–99; BMI 34.9
--- NOTE | ~2024-08-30 | XR_ITS ---
EXAMINATION: XR CHEST CLINICAL INFORMATION: CP. COMPARISON: 07/23/2024, 11/20/2023. TECHNIQUE: 3 views of the chest were obtained. FINDINGS: Lung volumes are low. There is no gross pneumothorax. Heart size is normal. No pleural effusion. Mild linear opacities at the left lung base. Mild loss of height of lower thoracic vertebral bodies redemonstrated. XR/XR chest 2V IMPRESSION: Mild linear opacities at the left lung base. This study was presented today 08/30/2024 for interpretation. Stat results provided at this time as requested by referring provider. Electronically signed by: Eleni Bonner MD 08/30/2024 12:57 PM [facility]
--- NOTE | 2024-08-30 10:37 | ECG_ITS ---
Test Reason : CP Blood Pressure : / mmHG Vent. Rate : 057 BPM Atrial Rate : 057 BPM P-R Int : 146 ms QRS Dur : 108 ms QT Int : 406 ms P-R-T Axes : 015 -13 227 degrees QTc Int : 395 ms Sinus bradycardia with Premature supraventricular complexes Incomplete right bundle branch block ST & T wave abnormality, consider inferior ischemia ST & T wave abnormality, consider anterolateral ischemia Abnormal ECG When compared with ECG of 13-JUL-2024 13:53, Premature supraventricular complexes are now Present Vent. rate has decreased BY 32 BPM T wave inversion now evident in Inferior leads T wave inversion now evident in Anterolateral leads Referred By: Stephanie Glynn Electronically Signed By:LEYDA CLARK
--- NOTE | 2024-08-30 10:38 | ED_ITS ---
HPI - General Adult General Chief complaint: General Medical Stated complaint: NAUSEA,CHEST TIGHTNESS,SWEATS FOR DAYS PER EMS Time Seen by Provider: 08/30/24 10:38 Source: patient and RN notes reviewed Mode of arrival: ambulatory Limitations: no limitations History of Present Illness ED Provider: Stephanie Glynn PA-C HPI narrative: This is a 64-year-old male, with a history of depression, PTSD, previous alcohol use disorder, previous cocaine use disorder, diabetes, CKD, GERD, hypertension, anxiety, smoker, reactive airway disease, who presents emergency department with complaints of nausea and vomiting and chest tightness for 4-5 days. Patient reports that he has a history of acute anxiety as well as panic disorder, and states that over the last several days he has felt like his anxiety has increased. He reports associated chest tightness, describing this as a squeezing sensation that occurs in his midsternal region, nonradiating, nonpleuritic, and resolves after several minutes. He denies any shortness of breath at rest. Patient reports that he has episodes where he has had increasing anxiety, and the need for IV fluids. He states that he feels as though this is the case today. He does not take any medications for high blood pressure however he does report that he has a history of high blood pressure. He denies any headaches, dizziness, blurred vision. Reports that he has not slept in several days due to increasing anxiety. No SI/HI. States that if he were to be discharged today, he will likely go home and it is in the shower for hours. He was previously admitted on July 13 through July 16 for acute bronchitis with hypoxia. No recent fevers, chills, cough. No abdominal pain. NO urinary symptoms. NO other complaints or concerns at this time. MD complaint: Chest pain, nausea, vomiting Onset (ago): day(s) Radiation: non-radiation Quality: aching Pain Consistency: constant Relieving factors: none Exacerbating factors: none Associated symptoms: chest pain, diaphoresis and nausea/vomiting Related Data Home Medications ?Medication ?Instructions ?Recorded ?Confirmed atorvastatin 20 mg tablet 20 mg PO BEDTIME 11/11/21 08/30/24 propranolol 10 mg tablet 10 mg PO TID PRN Anxiety 11/11/21 08/30/24 clonazepam 1 mg tablet 1 mg PO BID Anxiety 02/18/23 08/30/24 venlafaxine 150 mg 150 mg PO DAILY 07/13/24 08/30/24 capsule,extended release 24 hr amlodipine 5 mg tablet 5 mg PO DAILY 08/30/24 08/30/24 aspirin 81 mg tablet,delayed 81 mg PO DAILY 08/30/24 08/30/24 release buspirone 5 mg tablet 5 mg PO BID 08/30/24 08/30/24 cholecalciferol (vitamin D3) 50 50 mcg PO DAILY 08/30/24 08/30/24 mcg (2,000 unit) tablet (Vitamin D3) fenofibrate nanocrystallized 145 145 mg PO DAILY 08/30/24 08/30/24 mg tablet hydroxyzine HCl 25 mg tablet 25 mg PO DAILY Anxiety 08/30/24 08/30/24 omeprazole 20 mg capsule,delayed 20 mg PO BID 08/30/24 08/30/24 release ondansetron 4 mg disintegrating 4 mg PO DIRECTED 08/30/24 08/30/24 tablet semaglutide 2 mg/dose (8 mg/3 mL) 2 mg subcut QWEEK 08/30/24 08/30/24 subcutaneous pen injector (Ozempic) trazodone 50 mg tablet 50 mg PO BEDTIME PRN Insomnia 08/30/24 08/30/24 varenicline 1 mg tablet 1 mg PO BID 08/30/24 08/30/24 Previous Rx's ?Medication ?Instructions ?Recorded venlafaxine 37.5 mg 37.5 mg PO DAILY #30 caps 02/24/23 capsule,extended release 24 hr olanzapine 5 mg tablet 5 mg PO BID 30 days #60 tabs 08/23/23 albuterol sulfate 90 mcg/actuation 2 inh inhalation Q6-8H PRN 07/16/24 aerosol inhaler shortness of breath or wheezing #18 grams amlodipine 10 mg tablet 10 mg PO DAILY #90 tabs 08/30/24 Allergies Allergy/AdvReac Type Severity Reaction Status Date / Time codeine [CODEINE] AdvReac Severe Nausea Verified 08/30/24 10:24 Review of Systems 2 Review of Systems: Yes all other systems are reviewed and are negative Constitutional: Constitutional: Reports as per [facility] Past Medical History Attestation statement: The following information was validated with the patient. Medical History Acute viral syndrome Cannabis abuse Cocaine abuse PTSD (post-traumatic stress disorder) Anxiety Hyperlipidemia Depression Osteomyelitis Panic attacks HTN (hypertension) GERD (gastroesophageal reflux disease) Chronic renal insufficiency H/O ETOH abuse Smoker Amputation finger Diabetes Surgical History History of carpal tunnel release of both wrists Hx of foot surgery H/O colonoscopy Family History Family History Other No family history of coronary artery disease Social History Social History Household Members: None Household Members Other:: Self Housing: Apartment Housing Other:: lives in basement of a home Do you presently have visiting nurse or other home services: No Unable to assess alcohol history related to: Refusing to respond Alcohol intake: never Patient Tobacco Use Status: Former Tobacco user Tobacco use type: Cigarette Cigarette Packs Per Day: 0.5 Cigarettes Per Day: 10 Years Smoked: Many Smoked in Last 30 Days: No e-Cigarette/Vaping Use: Currently Using Use of substances other than those prescribed or required for medical reasons: No Substance Use Type: Marijuana Advance Directives: Yes Advance Directives on File: Yes Advance Directives Date on File: 06/24/22 Do you have a plan to hurt others: No Plan service: Yes Current occupational status: disabled Sexual orientation: Straight/Heterosexual Physical Exam ED Vital Signs: Vital Signs - 24 hr 08/30/24 10:20 08/30/24 10:35 08/30/24 11:21 Temperature 97.9 F Pulse Rate 81 76 78 Respiratory Rate 18 18 25 H Blood Pressure 158/120 H 202/117 H 153/106 H Pulse Oximetry 99 98 98 Oxygen Delivery Method Room Air Room Air Room Air 08/30/24 14:35 08/30/24 15:52 08/30/24 16:00 Temperature 98.0 F 98.2 F Pulse Rate 63 68 81 Respiratory Rate 16 18 18 Blood Pressure 185/105 H 187/101 H 187/101 H Pulse Oximetry 97 98 97 Oxygen Delivery Method Room Air Room Air Room Air 08/30/24 16:01 08/30/24 17:27 Temperature 98.5 F Pulse Rate 57 Respiratory Rate 18 Blood Pressure 187/101 H 140/89 H Pulse Oximetry 95 Oxygen Delivery Method Room Air BMI result Body Mass Index 34.9 Const General: cooperative, comfortable and no acute distress Orientation/consciousness: patient oriented x3 Limitations: no limitations HENMT Head: Yes normal to inspection, Yes normocephalic and Yes atraumatic Ears: hearing grossly normal bilaterally General nose exam: Normal external nose present Face and sinus: Yes normal facial exam Mouth: Normal oral and palatal mucosa present, oropharynx normal and moist mucous membranes Throat: Yes posterior oropharynx normal Eyes General: appearance normal, both eyes and all related structures Eyelids: Yes eyelids normal Conjunctivae: conjunctivae normal Sclerae: sclerae normal Pupils: Equal, round and reactive pupils present EOM: EOMs intact bilaterally Neck Neck: Yes normal visual inspection, Yes full ROM and Yes no lymphadenopathy Lymphatic: no lymphadenopathy noted Chest Chest palpation & inspection: normal inspection of the chest Resp Effort & Inspection: normal respiratory effort and able to speak in complete sentences Auscultation: clear to auscultation bilaterally, no crackles, no rales, no rhonchi and no wheezes Cardio Rate: regular rate Rhythm: regular rhythm Heart sounds: S1 normal heart sound present and S2 normal heart sound present GI Other: Abdomen is soft, nontender, nondistended Inspection: Yes normal to inspection Skin General skin exam: no rashes or lesions noted Trauma: no lacerations or abrasions Wounds: no wounds Neuro General: patient oriented x3 and moves all extremities Cranial nerves: Yes Equal, round and reactive pupils present Extrem General: Yes normal to inspection Right upper extremity: normal to inspection Left upper extremity: normal to inspection Right lower extremity: normal to inspection Left lower extremity: normal to inspection Psych Appearance: disheveled Speech and movement: Pressured speech present Affect: Anxious affect present Attitude: Guarded attititude/behavior present Thought process: Racing thoughts present Insight: Fair insight present (Psych) Judgement: Fair judgement present (Psych) Course Reevaluation(s) Reevaluation #1: Repeat troponin within normal limits. Upon further review, patient does have a history of elevated CPKs. He has been drinking fluids without difficulty. Burning sensation and test has been alleviated after receiving viscous lidocaine and Maalox. He has no pleuritic chest pain, he is not tachycardic or hypoxic. Patient has fluctuating blood pressure readings, he does have a history of high blood pressure in the hospital however is not on any hypertensive medications. Given patient has a history of elevated CPK, will obtain this to ensure that this is within normal limits. Patient's symptoms have improved, however patient now having increased elevation in his blood pressure, reading 185/105, given this finding, I believe patient would benefit from receiving a dose of antihypertensive medication. When discussing emotions, he becomes very tearful, states that he has a history of panic disorder, and I believe he would benefit from consulting with the care team. He has no SI or HI. I believe that patient has anxiety contributing to his chest pain and shortness of breath. Time: 14:49 Reevaluation #2: CPK returns, elevated at 309, which is much better than patient's previous CPKs that he has had. He is drinking fluids without difficulty. He requests drinking more fluids, I discussed with patient that this can cause more dehydration. We will continue to hydrate patient orally. Is not require IV fluids at this time. BNP pending. Will medicate with amlodipine and monitor blood pressure. Given sign out to Dr. Dela Cruz pending repeat blood pressure, and disposition. He will be seen by the care team Time: 15:22 Medications Administered Generic Name Dose Route Start Last Admin Trade Name Freq PRN Reason Stop Dose Admin Amlodipine Besylate 10 mg 08/30/24 15:45 08/30/24 16:01 Amlodipine Besylate 10 Mg Tablet PO 10 mg DAILY KIM Administration Protocol Discontinued Medications Generic Name Dose Route Start Last Admin Trade Name Freq PRN Reason Stop Dose Admin Al Hydroxide/Mg Hydroxide 30 ml 08/30/24 14:07 08/30/24 14:36 Magnesium Hydrox/Alum Hydrox 30 Ml Oral.Susp PO 08/30/24 14:08 30 ml ONCE ONE Administration Lidocaine HCl 15 ml 08/30/24 14:07 08/30/24 14:36 Lidocaine Hcl Viscous 2 % 15 Ml Solution MUCOUS MEM 08/30/24 14:08 15 ml ONCE ONE Administration Lorazepam 1 mg 08/30/24 11:14 08/30/24 11:18 Lorazepam 2 Mg/Ml Vial IVPUSH 08/30/24 11:15 1 mg ONCE ONE Administration Medical Decision Making Medical Decision Making MDM Narrative: This is a 64-year-old male who presents emergency department for evaluation of chest tightness, nausea and vomiting for the last 4-5 days. He also reports increasing anxiety. Per EMS, blood pressure was 158/120. This was repeated by our nursing staff, blood pressure elevated at 202/117. Patient anxious appearing, reporting no current chest pain however states that the chest pain is intermittent. Blood pressure elevated, however patient anxious appearing. Discussed case with my attending physician, Dr. Vasquez, will medicate with 1 mg of Ativan IV. EKG was performed, patient sinus bradycardic with PVCs, there is an incomplete right bundle branch block, and inverted T-waves in lead to, V3 through V6. Patient has similar-appearing EKG when compared to July 13 as well as June 19. Reviewed EKG with my attending physician, no acute significant changes. Will obtain cardiac workup to rule out any ACS like presentation. Plan: Labs, EKG, chest x-ray, Ativan 1 mg IV, continuous rn cardiac cath I received sign-out from my colleague EDWIGE Glynn. -18:30: The patient was evaluated by the care team, patient is future oriented, no SI, no HI. Patient may be discharged home. Differential Diagnosis Differential Diagnoses: The differential diagnosis associated with the presentation includes See above Admission/Observation Consideration of admission/observation: Escalation of care including admission/observation considered Lab Data MDM Lab Attestation statement: I reviewed the patient's lab results. Slight leukocytosis at 12.4, creatinine appears to be at baseline slight elevation in liver transaminases with an AST and ALT of 60 and 50. Troponin x2 negative. Patient tested positive for benzos, and marijuana 08/30/24 11:17 08/30/24 11:17 Labs: Lab Results 08/30/24 08/30/24 08/30/24 Range/Units 11:16 11:17 14:03 WBC 12.4 H (4.8-10.8) X10*3/uL RBC 5.67 (4.60-5.80) X10*6/uL Hgb 16.8 (14.0-18.0) g/dl Hct 48.1 (42.0-52.0) % MCV 84.8 (80.0-98.0) fL MCH 29.6 (27.0-33.0) pg MCHC 34.9 (31.0-36.0) g/dl RDW 14.4 (11.0-16.0) % Plt Count 331 (160-400) X10*3/uL MPV 10.0 (9.4-12.4) fL Immature Gran % (Auto) 0.5 H (0.0-0.4) % Neut % (Auto) 72.6 (45-73) % Lymph % (Auto) 16.5 L (20-40) % [place] % (Auto) 7.7 (2-11) % Eos % (Auto) 2.0 (0-4) % Baso % (Auto) 0.7 (0-2) % Lymph # (Auto) 2.0 (1.2-4.9) X10*3/uL [place] # (Auto) 1.0 (0.1-1.2) X10*3/uL Eos # (Auto) 0.3 (0.0-0.4) X10*3/uL Baso # (Auto) 0.1 (0.0-0.2) X10*3/uL Abs Immat Gran (auto) 0.06 H (0.00-0.03) X10*3/uL Absolute Neuts (auto) 9.0 H (2.0-8.3) x10*3/uL Absolute Nucleated RBC 0.000 (0.0-0.012) X10*3/uL Nucleated RBC % (auto) 0.0 (0.0-0.2) /100WBC PT 12.3 (10.9-12.4) SEC INR 1.1 (0.9-1.1) Sodium 141 (135-145) mmol/L Potassium 3.2 L (3.3-5.1) mmol/L Chloride 98 (96-108) mmol/L Carbon Dioxide 27 (22-29) mmol/L Anion Gap 19 (12-20) BUN 17 H (9-16) mg/dL Creatinine 1.35 (0.5-1.4) mg/dL Estim Creat Clear Calc 65.4 Estimated GFR 53 Random Glucose 117 H (60-115) mg/dL Calcium 10.5 H (8.4-10.2) mg/dL Magnesium 1.5 L (1.6-2.6) mg/dL Total Bilirubin 1.0 (0.0-1.0) mg/dL Direct Bilirubin 0.4 (0.0-0.5) mg/dL AST 60 H (5-37) U/L ALT 50 H (0-40) U/L Alkaline Phosphatase 48 (39-117) U/L Total Creatine Kinase 309 H (38-174) U/L Troponin I High Sens 4.7 4.2 (<3.5-35.0) ng/L B-Natriuretic Peptide < 10 (<100) pg/mL Total Protein 7.8 (6.5-8.0) g/dL Albumin 4.8 (3.5-5.0) g/dL Lipase 34 (8-78) U/L Urine Opiates Screen (Not Detect) Ur Buprenorphine Scrn (Not Detect) ng/mL Ur Oxycodone Screen (Not Detect) ng/mL Urine Methadone Screen (Not Detect) ng/mL Urine Fentanyl Screen (Not Detect) Ur Barbiturates Screen (Not Detect) Ur Phencyclidine Scrn (Not Detect) Ur Amphetamines Screen (Not Detect) U Benzodiazepines Scrn (Not Detect) Urine Cocaine Screen (Not Detect) U Marijuana (THC) Screen (Not Detect) Ethyl Alcohol < 10 mg/dL Influenza Type A (PCR) NEGATIVE (Negative) Influenza Type B (PCR) NEGATIVE (Negative) RSV RNA Qual (PCR) NEGATIVE (Negative) SARS-CoV-2 RNA (RT-PCR) NEGATIVE (Negative) 08/30/24 Range/Units 14:39 WBC (4.8-10.8) X10*3/uL RBC (4.60-5.80) X10*6/uL Hgb (14.0-18.0) g/dl Hct (42.0-52.0) % MCV (80.0-98.0) fL MCH (27.0-33.0) pg MCHC (31.0-36.0) g/dl RDW (11.0-16.0) % Plt Count (160-400) X10*3/uL MPV (9.4-12.4) fL Immature Gran % (Auto) (0.0-0.4) % Neut % (Auto) (45-73) % Lymph % (Auto) (20-40) % [place] % (Auto) (2-11) % Eos % (Auto) (0-4) % Baso % (Auto) (0-2) % Lymph # (Auto) (1.2-4.9) X10*3/uL [place] # (Auto) (0.1-1.2) X10*3/uL Eos # (Auto) (0.0-0.4) X10*3/uL Baso # (Auto) (0.0-0.2) X10*3/uL Abs Immat Gran (auto) (0.00-0.03) X10*3/uL Absolute Neuts (auto) (2.0-8.3) x10*3/uL Absolute Nucleated RBC (0.0-0.012) X10*3/uL Nucleated RBC % (auto) (0.0-0.2) /100WBC PT (10.9-12.4) SEC INR (0.9-1.1) Sodium (135-145) mmol/L Potassium (3.3-5.1) mmol/L Chloride (96-108) mmol/L Carbon Dioxide (22-29) mmol/L Anion Gap (12-20) BUN (9-16) mg/dL Creatinine (0.5-1.4) mg/dL Estim Creat Clear Calc Estimated GFR Random Glucose (60-115) mg/dL Calcium (8.4-10.2) mg/dL Magnesium (1.6-2.6) mg/dL Total Bilirubin (0.0-1.0) mg/dL Direct Bilirubin (0.0-0.5) mg/dL AST (5-37) U/L ALT (0-40) U/L Alkaline Phosphatase (39-117) U/L Total Creatine Kinase (38-174) U/L Troponin I High Sens (<3.5-35.0) ng/L B-Natriuretic Peptide (<100) pg/mL Total Protein (6.5-8.0) g/dL Albumin (3.5-5.0) g/dL Lipase (8-78) U/L Urine Opiates Screen Not Detected (Not Detect) Ur Buprenorphine Scrn Not Detected (Not Detect) ng/mL Ur Oxycodone Screen Not Detected (Not Detect) ng/mL Urine Methadone Screen Not Detected (Not Detect) ng/mL Urine Fentanyl Screen Not Detected (Not Detect) Ur Barbiturates Screen Not Detected (Not Detect) Ur Phencyclidine Scrn Not Detected (Not Detect) Ur Amphetamines Screen Not Detected (Not Detect) U Benzodiazepines Scrn POSITIVE H (Not Detect) Urine Cocaine Screen Not Detected (Not Detect) U Marijuana (THC) Screen POSITIVE H (Not Detect) Ethyl Alcohol mg/dL Influenza Type A (PCR) (Negative) Influenza Type B (PCR) (Negative) RSV RNA Qual (PCR) (Negative) SARS-CoV-2 RNA (RT-PCR) (Negative) Independent Interpretation I performed an independent interpretation of an: EKG Interpretation: EKG was performed, patient sinus bradycardic with PVCs, there is an incomplete right bundle branch block, and inverted T-waves in lead to, V3 through V6. Similar-appearing EKG from previous Radiology Impression Discussion of test interpretation with radiology: I have reviewed the radiologist's reading. Radiologist Impression: XR/XR chest 2V IMPRESSION: Mild linear opacities at the left lung base. This study was presented today 08/30/2024 for interpretation. Stat results provided at this time as requested by referring provider. Electronically signed by: Eleni Bonner MD 08/30/2024 12:57 PM [facility] Dictated By: Eleni Bonner MD Signed By: <Electronically signed by Eleni Bonner MD in OV> External Record Review External record reviewed: Inpatient record, Office record, Outpatient record, Prior outpatient labs, Prior outpatient radiology, Primary care record and Outside ED record Scores Heart Score History: -0- slightly suspicious ECG: -1- non specific repolarization disturbance Age: -1- >45 - <65 Risk factory: -1- 1 or 2 risk factors Troponin: -0- < or = normal limit Score: 3 Risk: 1.7% Discharge Plan Discharge Clinical Impression: Hypertension, Anxiety Patient Disposition: Home, Self-Care Instructions: Hypertension (ED), Anxiety (ED) Additional Instructions: Please follow-up with your primary care physician tomorrow. If you have any worsening or new symptoms, please return to the emergency room or call 911 Prescriptions: New amlodipine 10 mg tablet 10 mg PO DAILY Qty: 90 0RF No Action atorvastatin 20 mg Tablet 20 mg PO BEDTIME propranolol 10 mg Tablet 10 mg PO TID PRN (Reason: Anxiety) clonazepam 1 mg tablet 1 mg PO BID venlafaxine 37.5 mg capsule,extended release 24hr 37.5 mg PO DAILY Qty: 30 0RF olanzapine 5 mg Tablet 5 mg PO BID 30 Days Qty: 60 1RF buspirone 5 mg Tablet 5 mg PO BID amlodipine 5 mg Tablet 5 mg PO DAILY aspirin 81 mg Tablet,Delayed Release (Dr/Ec) 81 mg PO DAILY omeprazole 20 mg Capsule,Delayed Release(Dr/Ec) 20 mg PO BID ondansetron 4 mg Tablet,Disintegrating 4 mg PO DIRECTED Rx Instructions: Take one tablet as directed for panic attacks. varenicline 1 mg Tablet 1 mg PO BID fenofibrate nanocrystallized 145 mg Tablet 145 mg PO DAILY cholecalciferol (vitamin D3) [Vitamin D3] 50 mcg (2,000 unit) Tablet 50 mcg PO DAILY Ozempic 2 mg/dose (8 mg/3 mL) Pen Injector 2 mg SUBCUT QWEEK trazodone 50 mg tablet 50 mg PO BEDTIME PRN (Reason: Insomnia) hydroxyzine HCl 25 mg tablet 25 mg PO DAILY venlafaxine 150 mg capsule,extended release 24hr 150 mg PO DAILY albuterol sulfate 90 mcg/actuation HFA aerosol inhaler 2 inh inhalation Q6-8H PRN (Reason: shortness of breath or wheezing) Qty: 18 0RF Print Language: Georgian
[2024-08-30] MEDS: LORazepam 2 MG/ML VIAL 1 MG IVPUSH (11:18)
[2024-08-30 11:26] LABS: MANUAL DIFF FLAG NO
[2024-08-30 11:28] LABS: Basophils Absolute Auto 0.1 X10*3/uL (0.0-0.2); Basophils Percent Auto 0.7 % (0-2); Eosinophils Absolute Auto 0.3 X10*3/uL (0.0-0.4); Hematocrit 48.1 % (42.0-52.0); Hemoglobin 16.8 g/dl (14.0-18.0); Imm Gran Abs Auto 0.06 X10*3/uL (0.00-0.03); Imm Gran Pct Auto 0.5 % (0.0-0.4); Lymphocytes Percent Auto 16.5 % (20-40); Mean Corpuscular HGB Conc 34.9 g/dl (31.0-36.0); Mean Corpuscular Hemoglobin 29.6 pg (27.0-33.0); Mean Corpuscular Volume 84.8 fL (80.0-98.0); Monocytes Percent Auto 7.7 % (2-11); Neutrophils Percent Auto 72.6 % (45-73); Platelet Count 331 X10*3/uL (160-400); Red Blood Count 5.67 X10*6/uL (4.60-5.80); Red Cell Distribution Width 14.4 % (11.0-16.0); White Blood Count 12.4 X10*3/uL (4.8-10.8)
[2024-08-30 11:40] LABS: INTERNATIONAL NORM RATIO 1.1 (0.9-1.1); Prothrombin Time 12.3 SEC (10.9-12.4)
[2024-08-30 11:46] LABS: Alanine Aminotransferase 50 U/L (0-40); Albumin Level 4.8 g/dL (3.5-5.0); Alkaline Phosphatase 48 U/L (39-117); Anion Gap 19 (12-20); Aspartate Amino Transferase 60 U/L (5-37); Bilirubin Direct 0.4 mg/dL (0.0-0.5); Blood Urea Nitrogen 17 mg/dL (9-16); Calcium 10.5 mg/dL (8.4-10.2); Carbon Dioxide 27 mmol/L (22-29); Chloride 98 mmol/L (96-108); Creatinine Clr Calc Pharmacy 65.4; Estimated Glomerular Filt Rate 53; Glucose Random 117 mg/dL (60-115); Lipase 34 U/L (8-78); Magnesium 1.5 mg/dL (1.6-2.6); Potassium 3.2 mmol/L (3.3-5.1); Sodium 141 mmol/L (135-145); Total Protein 7.8 g/dL (6.5-8.0)
[2024-08-30 11:53] LABS: Troponin-I High Sensitivity 4.7 ng/L (<3.5-35.0)
[2024-08-30 12:16] LABS: Influenza A PCR NEGATIVE (Negative); Influenza B PCR NEGATIVE (Negative); Resp Syncy Virus RNA Qual PCR NEGATIVE (Negative); SARS COV2 PCR INHOUSE NEGATIVE (Negative)
[2024-08-30 12:44] LABS: Ethanol < 10 mg/dL
[2024-08-30 14:32] LABS: Troponin-I High Sensitivity 4.2 ng/L (<3.5-35.0)
[2024-08-30] MEDS: Lidocaine HCl Viscous 2 % 15 ML SOLUTION MUCOUS MEM (14:36)
[2024-08-30] MEDS: Magnesium Hydrox/Alum Hydrox 30 ML ORAL.SUSP PO (14:36)
[2024-08-30 14:56] LABS: Amphetamine Screen Urine Not Detected (Not Detect); Barbiturates, Urine Not Detected (Not Detect); Benzodiazepines Screen Urine POSITIVE (Not Detect); Buprenorphine Scr Not Detected (Not Detect); Cannabinoid Screen Urine POSITIVE (Not Detect); Cocaine Screen Urine Not Detected (Not Detect); Fentanyl, urine Not Detected (Not Detect); Methadone Screen, Urine Not Detected (Not Detect); Opiate Screen Urine Not Detected (Not Detect); Oxycodone Screen Urine Not Detected (Not Detect); Phencyclidine Screen Urine Not Detected (Not Detect)
[2024-08-30 15:32] LABS: B Type Natriuretic Peptide < 10 pg/mL (<100)
[2024-08-30] MEDS: amLODIPine Besylate 10 MG TABLET PO (16:01)
--- NOTE | 2024-08-30 16:30 | PHA.MEDREC ---
Addendum entered by Liseth Ashton RPh 08/30/24 16:40: med rec reviewed by ELAINE Original Note: Pharmacy Consult ? Medication Reconciliation Pharmacy has completed the medication reconciliation. Confirmed medications with patient, Rx photos on their phone and [facility] list [facility]. Patient confirmed he took his morning medications this morning.
== END 2024-08-30 18:59 | disposition home or self-care (01) ==
PROVIDERS: Physician Assistant Medical; Emergency Provider Emergency Medicine; PCP Physician Assistant Medical
DX: R07.89 Other chest pain (principal); F41.1 Generalized anxiety disorder; F43.0 Acute stress reaction; R11.2 Nausea with vomiting, unspecified; E11.9 Type 2 diabetes mellitus without complications; I10 Essential (primary) hypertension; F17.210 Nicotine dependence, cigarettes, uncomplicated; Z51.81 Encounter for therapeutic drug level monitoring; Z79.899 Other long term (current) drug therapy; Z03.818 Encounter for observation for suspected exposure to other biological agents ruled out
CPT/HCPCS: 0241U; 36415; 71046; 80048; 80076; 80307; 82550; 83690; 83735; 83880; 84484; 85025; 85610; 93005; 99284; 99285; J2060; S9485

== ENCOUNTER → 2024-08-30 10:37 | Outpatient (BNV) | payer MEDICARE, MEDICAID, SELFPAY | PROVIDERS: Emergency Provider Emergency Medicine; PCP Physician Assistant Medical; Visit Provider Internal Medicine | DX: R94.31 Abnormal electrocardiogram [ECG] [EKG] (principal) | CPT/HCPCS: 93010 ==

== ENCOUNTER 2024-12-19 10:56 | Emergency (ER) | payer OTHER, SELFPAY ==
[2024-12-19 11:06] VITALS: BP 128/80; BP 175/91; PULSE 78; PULSE 80; RESP 18; TEMP 36.9; O2SAT 100; O2SAT 94; BMI 33.6
--- NOTE | 2024-12-19 11:08 | ED_ITS ---
HPI - General Adult General Chief complaint: Nausea/Vomiting/Diarrhea Stated complaint: NAUSEA VOMITING POOR PO INTAKE Time Seen by Provider: 12/19/24 11:08 Source: patient and EMS Mode of arrival: EMS Limitations: no limitations History of Present Illness ED Provider: Roxi Metz PA-C HPI narrative: Patient is a 64 year old male with a past medical history of PTSD, MDD, and chronic cannabis use who presents to the ED today for complaints of nausea and vomiting. He states that for the past 3 days he has been experiencing episodes of nausea and vomiting. He has had no sick contacts. States that he has been seen for this multiple times before and this is not new for him. He endorses daily use of cannabis. States he takes frequent hot showers as they help relieve his symptoms. He denies fevers, chills, chest pain, shortness of breath, abdominal pain, diarrhea. Onset (ago): day(s) Associated symptoms: nausea/vomiting Related Data Home Medications ?Medication ?Instructions ?Recorded ?Confirmed atorvastatin 20 mg tablet 20 mg PO BEDTIME 11/11/21 08/30/24 propranolol 10 mg tablet 10 mg PO TID PRN Anxiety 11/11/21 08/30/24 clonazepam 1 mg tablet 1 mg PO BID Anxiety 02/18/23 08/30/24 venlafaxine 150 mg 150 mg PO DAILY 07/13/24 08/30/24 capsule,extended release 24 hr amlodipine 5 mg tablet 5 mg PO DAILY 08/30/24 08/30/24 aspirin 81 mg tablet,delayed 81 mg PO DAILY 08/30/24 08/30/24 release buspirone 5 mg tablet 5 mg PO BID 08/30/24 08/30/24 cholecalciferol (vitamin D3) 50 50 mcg PO DAILY 08/30/24 08/30/24 mcg (2,000 unit) tablet (Vitamin D3) fenofibrate nanocrystallized 145 145 mg PO DAILY 08/30/24 08/30/24 mg tablet hydroxyzine HCl 25 mg tablet 25 mg PO DAILY Anxiety 08/30/24 08/30/24 omeprazole 20 mg capsule,delayed 20 mg PO BID 08/30/24 08/30/24 release ondansetron 4 mg disintegrating 4 mg PO DIRECTED 08/30/24 08/30/24 tablet semaglutide 2 mg/dose (8 mg/3 mL) 2 mg subcut QWEEK 08/30/24 08/30/24 subcutaneous pen injector (Ozempic) trazodone 50 mg tablet 50 mg PO BEDTIME PRN Insomnia 08/30/24 08/30/24 varenicline tartrate 1 mg tablet 1 mg PO BID 08/30/24 08/30/24 Previous Rx's ?Medication ?Instructions ?Recorded venlafaxine 37.5 mg 37.5 mg PO DAILY #30 caps 02/24/23 capsule,extended release 24 hr olanzapine 5 mg tablet 5 mg PO BID 30 days #60 tabs 08/23/23 albuterol sulfate 90 mcg/actuation 2 inh inhalation Q6-8H PRN 07/16/24 aerosol inhaler shortness of breath or wheezing #18 grams amlodipine 10 mg tablet 10 mg PO DAILY #90 tabs 08/30/24 Allergies Allergy/AdvReac Type Severity Reaction Status Date / Time codeine [CODEINE] AdvReac Severe Nausea Verified 12/19/24 11:10 Review of Systems 2 Constitutional: Constitutional: Reports no additional constitutional complaints, Denies chills, Denies fever(s) and Denies night sweats Eyes: Eyes: Reports no additional eye complaints, Denies blurry vision, Denies change in vision, Denies diplopia, Denies eye discharge, Denies loss of vision and Denies eye pain ENT: Denies dizziness Cardiovascular: Cardiovascular: Reports no additional cardiovascular complaints, Denies chest pain, Denies lightheadedness, Denies Loss of Consciousness and Denies dyspnea Respiratory: Respiratory: Reports no additional respiratory complaints and Denies dyspnea Gastrointestinal: Gastrointestinal: Reports no additional gastrointestinal complaints, Denies abdominal pain, Denies melena, Denies hematochezia, Denies change in bowel habits, Denies change in stool character, Reports nausea and Reports vomiting Genitourinary: Genitourinary: Reports no additional male genitourinary complaints, Denies hematuria, Denies oliguria, Denies difficulty urinating, Denies dysuria, Denies urinary frequency, Denies urinary hesitancy, Denies urinary incontinence and Denies urinary urgency Musculoskeletal: Musculoskeletal: Reports no additional musculoskeletal complaints, Denies numbness and Denies tingling Neurologic: Denies dizziness, Denies loss of vision, Denies numbness and Denies tingling Psychiatric: Psychiatric: Reports no additional psychiatric complaints Endocrine: Endocrine: Reports no additional endocrine complaints Hematologic/Lymphatic: Hematologic/Lymphatic: Reports no additional hematologic/lymphatic complaints Allergic/Immunologic: Allergic/Immunologic: Reports no additional allergic/immunologic complaints PMFSH Past Medical History Attestation statement: The following information was validated with the patient. Source: old records reviewed and nursing notes reviewed Medical History Acute viral syndrome Cannabis abuse Cocaine abuse PTSD (post-traumatic stress disorder) Anxiety Hyperlipidemia Depression Osteomyelitis Panic attacks HTN (hypertension) GERD (gastroesophageal reflux disease) Chronic renal insufficiency H/O ETOH abuse Smoker Amputation finger Diabetes Surgical History History of carpal tunnel release of both wrists Hx of foot surgery H/O colonoscopy Family History Family History Other No family history of coronary artery disease Social History Social History Household Members: None Household Members Other:: Self Housing: Apartment Housing Other:: lives in basement of a home Do you presently have visiting nurse or other home services: No Unable to assess alcohol history related to: Refusing to respond Alcohol intake: never Patient Tobacco Use Status: Former Tobacco user Tobacco use type: Cigarette Cigarette Packs Per Day: 0.5 Cigarettes Per Day: 10 Years Smoked: Many Smoked in Last 30 Days: Yes e-Cigarette/Vaping Use: Currently Using Use of substances other than those prescribed or required for medical reasons: Yes Substance Use Type: Marijuana Advance Directives: Yes Advance Directives on File: Yes Advance Directives Date on File: 06/24/22 Do you have a plan to hurt others: No Plan service: Yes Current occupational status: disabled Sexual orientation: Straight/Heterosexual Physical Exam ED Vital Signs: Vital Signs - 24 hr 12/19/24 11:06 12/19/24 15:45 12/19/24 15:57 Temperature 98.5 F 98.0 F 98.0 F Pulse Rate 78 80 80 Respiratory Rate 18 13 13 Blood Pressure 175/91 H 120/87 120/87 Pulse Oximetry 94 97 97 Oxygen Delivery Method Room Air Room Air Room Air BMI result Body Mass Index 33.6 Const General: cooperative, no acute distress, alert and awake Nutritional Appearance: well nourished Orientation/consciousness: patient oriented x3 Limitations: no limitations HENMT Head: Yes normal to inspection and Yes atraumatic Ears: hearing grossly normal bilaterally and external ears normal General nose exam: Normal external nose present, no nasal discharge noted and no epistaxis Face and sinus: Yes normal facial exam, No abrasion and No laceration Mouth: Normal oral and palatal mucosa present, no drooling and no muffled voice Eyes General: appearance normal, both eyes and all related structures Periorbital: periorbital findings normal Eyelids: Yes eyelids normal Conjunctivae: conjunctivae normal Pupils: Equal, round and reactive pupils present EOM: EOMs intact bilaterally Neck Neck: Yes normal visual inspection, Yes full ROM and Yes no lymphadenopathy Chest Chest palpation & inspection: normal inspection of the chest Resp Effort & Inspection: normal respiratory effort and able to speak in complete sentences Auscultation: clear to auscultation bilaterally Cardio Rate: regular rate Rhythm: regular rhythm Heart sounds: S1 normal heart sound present, S2 normal heart sound present, no click, no gallops, no murmurs and no rubs GI Inspection: Yes normal to inspection Palpation (GI): Soft to palpation, not firm, nontender, no guarding and not rigid Neuro General: patient oriented x3, moves all extremities and CN's II-XI intact bilaterally Cranial nerves: Yes Equal, round and reactive pupils present Cognition (Neuro): normal cognition Extrem General: Yes normal to inspection, Yes full ROM and Yes capillary refill normal Psych Appearance: grossly normal Mental Status: mental status grossly normal Affect: normal affect Attitude: cooperative Thought process: Normal thought process present Thought content: Normal thought content present Insight: Good insight present (Psych) Medications Administered Discontinued Medications Generic Name Dose Route Start Last Admin Trade Name Freq PRN Reason Stop Dose Admin Diazepam 5 mg 12/19/24 11:23 12/19/24 11:40 Diazepam 10 Mg/2 Ml Cartridge IVPUSH 12/19/24 11:24 5 mg STAT STA Administration Sodium Chloride 1,000 mls @ 999 mls/hr 12/19/24 11:30 12/19/24 12:38 Ns IV 12/19/24 12:30 Infused .Q1H1M KIM Infusion Magnesium Sulfate/Dextrose 1 gm in 100 mls @ 100 mls/hr 12/19/24 12:14 12/19/24 13:30 Magnesium Sulfate/D5w IV 12/19/24 13:13 Infused ONCE ONE Infusion Potassium Chloride 10 meq in 100 mls @ 100 mls/hr 12/19/24 12:15 12/19/24 15:57 Potassium Chloride/H20 IV 12/19/24 16:14 Not Given Q1H KIM Sodium Chloride 1,000 mls @ 999 mls/hr 12/19/24 13:15 12/19/24 13:21 Ns IV 12/19/24 14:15 999 mls/hr .Q1H1M KIM Administration Ondansetron HCl 4 mg 12/19/24 11:21 12/19/24 11:40 Ondansetron Hcl 4 Mg/2 Ml Vial IVPUSH 12/19/24 11:22 4 mg ONCE ONE Administration Ondansetron HCl 4 mg 12/19/24 14:58 12/19/24 15:05 Ondansetron Hcl 4 Mg/2 Ml Vial IVPUSH 12/19/24 14:59 4 mg ONCE ONE Administration Potassium Chloride 20 meq 12/19/24 12:14 12/19/24 12:29 Potassium Chloride Er 20 Meq Tab.Er.Prt PO 12/19/24 12:15 20 meq ONCE ONE Administration Medical Decision Making Medical Decision Making MDM Narrative: Patient is a 64 year old assigned male at with a history of PTSD, MDD, and chronic cannabis use presenting to the emergency department today with nausea and vomiting. Patient's physical exam was unremarkable. Patient's blood work showed a decreased potassium of 2.9. Patient was given 20 meq PO and 30 meq IV witha repeat potassium of 4.4. Patient's WBC count was elevated at 16.3 which is likely secondary to the vomiting. Patient's urine showed no acute process. Patient's EKG was unremarkable. I explained my physical exam findings as well as all test results to the patient. I answered all questions asked by the patient. Patient received IV fluids, potassium, zofran, and valium which, upon re- evaluation, he stated it helped his symptoms significantly. I stressed the importance of the patient taking his medication as directed (either prescribed or as the over the counter packaging recommends). I stressed the importance of the patient following up with his primary care provider. I stressed the importance of the patient returning to the emergency department immediately if his symptoms were to worsen or if he were to develop any dizziness, shortness of breath, difficulty breathing, chest pain, blurry vision, loss of vision, nausea, vomiting, abdominal pain, fever, chills, back pain, or any other complaints. Patient verbalized agreement and understanding with this treatment plan and discharge. Differential Diagnosis Differential Diagnoses: The differential diagnosis associated with the presentation includes CHS Nausea Vomiting Hypokalemia Admission/Observation Consideration of admission/observation: Escalation of care including admission/observation considered Patient would have been admitted to the hospital had his work up had any findings where hospital admission was appropriate and his clinical presentation warranted hospital admission. Lab Data [facility] Lab Attestation statement: I reviewed the patient's lab results. My interpretation of these results are in the [facility] Rationale portion of this note. 12/19/24 11:37 12/19/24 14:58 Labs: Lab Results 12/19/24 12/19/24 12/19/24 Range/Units 11:37 13:16 14:58 WBC 16.3 H (4.8-10.8) X10*3/uL RBC 5.77 (4.60-5.80) X10*6/uL Hgb 17.0 (14.0-18.0) g/dl Hct 48.3 (42.0-52.0) % MCV 83.7 (80.0-98.0) fL MCH 29.5 (27.0-33.0) pg MCHC 35.2 (31.0-36.0) g/dl RDW 13.7 (11.0-16.0) % Plt Count 260 (160-400) X10*3/uL MPV 10.1 (9.4-12.4) fL Immature Gran % (Auto) 0.5 H (0.0-0.4) % Neut % (Auto) 72.0 (45-73) % Lymph % (Auto) 15.2 L (20-40) % Weber % (Auto) 11.9 H (2-11) % Eos % (Auto) 0.2 (0-4) % Baso % (Auto) 0.2 (0-2) % Lymph # (Auto) 2.5 (1.2-4.9) X10*3/uL Weber # (Auto) 1.9 H (0.1-1.2) X10*3/uL Eos # (Auto) 0.0 (0.0-0.4) X10*3/uL Baso # (Auto) 0.0 (0.0-0.2) X10*3/uL Abs Immat Gran (auto) 0.08 H (0.00-0.03) X10*3/uL Absolute Neuts (auto) 11.8 H (2.0-8.3) x10*3/uL Absolute Nucleated RBC 0.000 (0.0-0.012) X10*3/uL Nucleated RBC % (auto) 0.0 (0.0-0.2) /100WBC Smear Tech's Comments VERIFIED Sodium 140 139 (135-145) mmol/L Potassium 2.9 L* 4.4 D (3.3-5.1) mmol/L Chloride 102 105 (96-108) mmol/L Carbon Dioxide 25 21 L (22-29) mmol/L Anion Gap 16 17 (12-20) BUN 27 H 23 H (9-16) mg/dL Creatinine 1.21 1.02 (0.5-1.4) mg/dL Estim Creat Clear Calc 71.7 85.0 Estimated GFR > 60 > 60 Random Glucose 98 101 (60-115) mg/dL Calcium 8.7 D 8.3 L (8.4-10.2) mg/dL Magnesium 1.5 L (1.6-2.6) mg/dL Total Bilirubin 1.5 H 1.3 H (0.0-1.0) mg/dL AST 74 H 90 H (5-37) U/L ALT 63 H 65 H (0-40) U/L Alkaline Phosphatase 40 39 (39-117) U/L Total Protein 8.2 H 8.2 H (6.5-8.0) g/dL Albumin 4.5 4.1 (3.5-5.0) g/dL Urine Color Dark Yellow Urine Appearance Cloudy Urine pH 5.5 (5.0-9.0) Ur Specific [place] 1.025 (1.005-1.025) Urine Protein 300 (3+) H (Neg-Trace) mg/dL Urine Glucose (UA) Negative (Negative) mg/dL Urine Ketones Trace (Negative) mg/dL Urine Blood Small (1+) H (Negative) Urine Nitrite Negative (Negative) Ur Leukocyte Esterase Negative (Negative) Urine RBC 0-2 (0-2) /HPF Urine WBC 0-5 (0-5) /HPF Ur Squamous Epith Cells 3-5 (0-2) /HPF Urine Bacteria None Seen (None Seen) Hyaline Casts 3-5 (0-2) /LPF Urine Opiates Screen Not Detected (Not Detect) Ur Buprenorphine Scrn Not Detected (Not Detect) ng/mL Ur Oxycodone Screen Not Detected (Not Detect) ng/mL Urine Methadone Screen Not Detected (Not Detect) ng/mL Urine Fentanyl Screen Not Detected (Not Detect) Ur Barbiturates Screen Not Detected (Not Detect) Ur Phencyclidine Scrn Not Detected (Not Detect) Ur Amphetamines Screen Not Detected (Not Detect) U Benzodiazepines Scrn POSITIVE H (Not Detect) Urine Cocaine Screen Not Detected (Not Detect) U Marijuana (THC) Screen POSITIVE H (Not Detect) Influenza Type A (PCR) NEGATIVE (Negative) Influenza Type B (PCR) NEGATIVE (Negative) RSV RNA Qual (PCR) NEGATIVE (Negative) SARS-CoV-2 RNA (RT-PCR) NEGATIVE (Negative) Independent Interpretation I performed an independent interpretation of an: EKG Interpretation: I independently interpreted this EKG and am in agreement with the below findings: Vent. Rate: 73 BPM Atrial Rate: 73 BPM P-R Int: 154 ms QRS Dur: 104 ms QT Int: 396 ms P-R-T Axes: 17 1 251 degrees QTcB Int: 436 ms Normal sinus rhythm Incomplete right bundle branch block When compared with ECG of 30-Aug-2024 11:02, Premature supraventricular complexes are no longer Present Referred By: Roxi Metz Electronically Signed By: Michael Starr Dictated By: Michael Starr MD Signed By: Electronically signed by Michael Starr MD 12/19/24 [id number] Independent Historian Clinical information obtained from an independent historian. History obtained from or confirmed by: EMS (EMS provided additional history and confirmed the history provided by the patient. ) Discharge Plan Discharge Clinical Impression: Nausea & vomiting, Acute hypokalemia Patient Disposition: Home, Self-Care Instructions: Potassium Content of Foods List (ED), Hypokalemia (ED), Acute Nausea and Vomiting (ED) Additional Instructions: Your work up today was largely unremarkable with the exception of low potassium which we corrected in the department. Please consider the cessation of marijuana use. Follow up with your primary care provider. Return to the emergency department immediately if your symptoms worsen or if you develop any numbness, tingling, dizziness, shortness of breath, difficulty breathing, chest pain, blurry vision, loss of vision, nausea, vomiting, abdominal pain, fever, chills, back pain, or any other complaints. Please see the information below about our Patient Portal. If you are not yet enrolled in the [facility] Patient Portal, you will receive an enrollment email invitation following your visit to any [facility] setting. You may also self-enroll in the Patient Portal by visiting our website: [email or web address] The following information is required to access the Patient Portal: - Your [facility] Medical Record Number - Your personal home email address (must match what is in your electronic medical record, Registration staff can assist with this) - Name - Date of Capabilities of the Patient Portal: - Message some providers - View upcoming appointments - Access your health summary, medical history, and visit history - View current conditions and allergies - View procedure and lab results - View your medications, including guidelines, side effects, and precautions - Complete pre-appointment questionnaires requested by your provider - Ready summary reports of your office visits and procedures To access the Patient Portal Mobile Familia, follow these directions: - Search [employer] in the Familia Store or Google [employer] Store - Download the Familia - Search for [facility] - Enter your login/password Prescriptions: No Action atorvastatin 20 mg Tablet 20 mg PO BEDTIME propranolol 10 mg Tablet 10 mg PO TID PRN (Reason: Anxiety) clonazepam 1 mg tablet 1 mg PO BID venlafaxine 37.5 mg capsule,extended release 24hr 37.5 mg PO DAILY Qty: 30 0RF olanzapine 5 mg Tablet 5 mg PO BID 30 Days Qty: 60 1RF buspirone 5 mg Tablet 5 mg PO BID amlodipine 5 mg Tablet 5 mg PO DAILY aspirin 81 mg Tablet,Delayed Release (Dr/Ec) 81 mg PO DAILY omeprazole 20 mg Capsule,Delayed Release(Dr/Ec) 20 mg PO BID ondansetron 4 mg Tablet,Disintegrating 4 mg PO DIRECTED Rx Instructions: Take one tablet as directed for panic attacks. varenicline tartrate 1 mg Tablet 1 mg PO BID fenofibrate nanocrystallized 145 mg Tablet 145 mg PO DAILY cholecalciferol (vitamin D3) [Vitamin D3] 50 mcg (2,000 unit) Tablet 50 mcg PO DAILY Ozempic 2 mg/dose (8 mg/3 mL) Pen Injector 2 mg SUBCUT QWEEK trazodone 50 mg tablet 50 mg PO BEDTIME PRN (Reason: Insomnia) hydroxyzine HCl 25 mg tablet 25 mg PO DAILY amlodipine 10 mg tablet 10 mg PO DAILY Qty: 90 0RF venlafaxine 150 mg capsule,extended release 24hr 150 mg PO DAILY albuterol sulfate 90 mcg/actuation HFA aerosol inhaler 2 inh inhalation Q6-8H PRN (Reason: shortness of breath or wheezing) Qty: 18 0RF Referrals: Daron Oconnell PA [Primary Care Provider] - Interventions: ED Discharge Assessment Last Done: 12/19/24 15:57 Discharge Date/Time: 12/19/24 15:57 Print Language: Croatian
--- NOTE | 2024-12-19 11:21 | ECG_ITS ---
Test Reason : NAUSEA, VOMITTING Blood Pressure : */* mmHG Vent. Rate : 73 BPM Atrial Rate : 73 BPM P-R Int : 154 ms QRS Dur : 104 ms QT Int : 396 ms P-R-T Axes : 17 1 251 degrees QTcB Int : 436 ms Normal sinus rhythm Incomplete right bundle branch block ST & T wave abnormality, consider inferior ischemia ST & T wave abnormality, consider anterolateral ischemia Abnormal ECG When compared with ECG of 30-Aug-2024 11:02, Premature supraventricular complexes are no longer Present Referred By: Roxi Metz Electronically Signed By: Michael Starr
[2024-12-19] MEDS: 0.9 % Sodium Chloride 1,000 ML 999 ML IV ×2 (11:38→13:21)
[2024-12-19] MEDS: ondansetron HCL 4 MG/2 ML VIAL IVPUSH ×2 (11:40→15:05)
[2024-12-19] MEDS: diazePAM 10 MG/2 ML CARTRIDGE 5 MG IVPUSH (11:40)
[2024-12-19 11:51] LABS: Basophils Percent Auto 0.2 % (0-2); Eosinophils Percent Auto 0.2 % (0-4); Hematocrit 48.3 % (42.0-52.0); Imm Gran Abs Auto 0.08 X10*3/uL (0.00-0.03); Imm Gran Pct Auto 0.5 % (0.0-0.4); Lymphocytes Absolute Auto 2.5 X10*3/uL (1.2-4.9); Lymphocytes Percent Auto 15.2 % (20-40); MANUAL DIFF FLAG SCAN; Mean Corpuscular HGB Conc 35.2 g/dl (31.0-36.0); Mean Corpuscular Hemoglobin 29.5 pg (27.0-33.0); Mean Corpuscular Volume 83.7 fL (80.0-98.0); Mean Platelet Volume 10.1 fL (9.4-12.4); Monocytes Absolute Auto 1.9 X10*3/uL (0.1-1.2); Monocytes Percent Auto 11.9 % (2-11); Neutrophils Absolute Auto 11.8 x10*3/uL (2.0-8.3); Platelet Count 260 X10*3/uL (160-400); Red Blood Count 5.77 X10*6/uL (4.60-5.80); Red Cell Distribution Width 13.7 % (11.0-16.0); SCAN SMEAR FLAG 1; White Blood Count 16.3 X10*3/uL (4.8-10.8)
[2024-12-19 12:09] LABS: SLIDE REVIEW VERIFIED
[2024-12-19 12:12] LABS: Alanine Aminotransferase 63 U/L (0-40); Albumin Level 4.5 g/dL (3.5-5.0); Alkaline Phosphatase 40 U/L (39-117); Anion Gap 16 (12-20); Aspartate Amino Transferase 74 U/L (5-37); Bilirubin Total 1.5 mg/dL (0.0-1.0); Blood Urea Nitrogen 27 mg/dL (9-16); Calcium 8.7 mg/dL (8.4-10.2); Carbon Dioxide 25 mmol/L (22-29); Chloride 102 mmol/L (96-108); Creatinine Clr Calc Pharmacy 71.7; Estimated Glomerular Filt Rate > 60; Glucose Random 98 mg/dL (60-115); Magnesium 1.5 mg/dL (1.6-2.6); Potassium 2.9 mmol/L (3.3-5.1); Sodium 140 mmol/L (135-145); Total Protein 8.2 g/dL (6.5-8.0)
[2024-12-19 12:27] LABS: Influenza A PCR NEGATIVE (Negative); Influenza B PCR NEGATIVE (Negative); Resp Syncy Virus RNA Qual PCR NEGATIVE (Negative); SARS COV2 PCR INHOUSE NEGATIVE (Negative)
[2024-12-19] MEDS: Potassium Chloride ER 20 MEQ TAB.ER.PRT PO (12:29)
[2024-12-19] MEDS: Potassium Chloride/H20 10 MEQ/100 ML PIGGYBACK 100 MEQ IV ×3 (12:30→14:48)
[2024-12-19] MEDS: Magnesium Sulfate/D5W 1 GM/100 ML PIGGYBACK IV (12:30)
[2024-12-19 13:24] LABS: Appearance Urine Cloudy; Color Urine Dark Yellow; Glucose Urine UA Negative (Negative); Leukocyte Esterase Urine Negative (Negative); Nitrite Urine Negative (Negative); PH 5.5 (5.0-9.0); Specific Gravity - Urine 1.025 (1.005-1.025); UMIC TRIGGER UACC YES; Urine Blood Small (1+) (Negative); Urine Ketones Trace mg/dL (Negative); Urine Protein 300 (3+) mg/dL (Neg-Trace)
[2024-12-19 13:31] LABS: Bacteria Urine None Seen (None Seen); RBC Urine 0-2 /HPF (0-2); WBC Urine 0-5 /HPF (0-5)
[2024-12-19 14:03] LABS: Amphetamine Screen Urine Not Detected (Not Detect); Barbiturates, Urine Not Detected (Not Detect); Benzodiazepines Screen Urine POSITIVE (Not Detect); Buprenorphine Scr Not Detected (Not Detect); Cannabinoid Screen Urine POSITIVE (Not Detect); Cocaine Screen Urine Not Detected (Not Detect); Fentanyl, urine Not Detected (Not Detect); Methadone Screen, Urine Not Detected (Not Detect); Opiate Screen Urine Not Detected (Not Detect); Oxycodone Screen Urine Not Detected (Not Detect); Phencyclidine Screen Urine Not Detected (Not Detect)
[2024-12-19 15:25] LABS: Alanine Aminotransferase 65 U/L (0-40); Albumin Level 4.1 g/dL (3.5-5.0); Alkaline Phosphatase 39 U/L (39-117); Anion Gap 17 (12-20); Aspartate Amino Transferase 90 U/L (5-37); Bilirubin Total 1.3 mg/dL (0.0-1.0); Blood Urea Nitrogen 23 mg/dL (9-16); Calcium 8.3 mg/dL (8.4-10.2); Carbon Dioxide 21 mmol/L (22-29); Chloride 105 mmol/L (96-108); Estimated Glomerular Filt Rate > 60; Glucose Random 101 mg/dL (60-115); Potassium 4.4 mmol/L (3.3-5.1); Sodium 139 mmol/L (135-145); Total Protein 8.2 g/dL (6.5-8.0)
[2024-12-19 15:45] VITALS: BP 120/87; PULSE 80; RESP 13; TEMP 36.7; O2SAT 97
[2024-12-19 15:57] VITALS: BP 120/87; PULSE 80; RESP 13; TEMP 36.7; O2SAT 97
== END 2024-12-19 15:57 | disposition home or self-care (01) ==
PROVIDERS: Physician Assistant Medical; Emergency Provider Emergency Medicine Emergency Medical Services; PCP Physician Assistant Medical
DX: E23.2 Diabetes insipidus (principal); R11.2 Nausea with vomiting, unspecified; I45.10 Unspecified right bundle-branch block; F12.90 Cannabis use, unspecified, uncomplicated; Z87.891 Personal history of nicotine dependence; Z51.81 Encounter for therapeutic drug level monitoring; Z03.818 Encounter for observation for suspected exposure to other biological agents ruled out; Z79.899 Other long term (current) drug therapy
CPT/HCPCS: 0241U; 36415; 80053; 80307; 81001; 83735; 85025; 93005; 96361; 96365; 96375; 96376; 99284; 99285; J2405; J3360; J3475; J3480

== ENCOUNTER → 2024-12-19 11:21 | Outpatient (BNV) | payer OTHER, SELFPAY | PROVIDERS: Emergency Provider Emergency Medicine Emergency Medical Services; PCP Physician Assistant Medical; Visit Provider Internal Medicine Cardiovascular Disease | DX: I45.10 Unspecified right bundle-branch block (principal) | CPT/HCPCS: 93010 ==

== ENCOUNTER 2024-12-22 08:47 | Emergency (ER) | payer OTHER, SELFPAY ==
--- NOTE | 2024-12-22 | ECG_ITS ---
Test Reason : weakness Blood Pressure : */* mmHG Vent. Rate : 74 BPM Atrial Rate : 74 BPM P-R Int : 180 ms QRS Dur : 98 ms QT Int : 380 ms P-R-T Axes : 53 -33 264 degrees QTcB Int : 421 ms Normal sinus rhythm Left axis deviation Incomplete right bundle branch block Inferior infarct , age undetermined Abnormal ECG When compared with ECG of 19-Dec-2024 11:37, QRS axis Shifted left Inferior infarct is now Present Referred By: Generic ED Physician Electronically Signed By: Michael Starr
--- NOTE | ~2024-12-22 | XR_ITS ---
EXAMINATION: XR CHEST 1 VIEW HISTORY: chest pain COMPARISON: Comparison is made with the prior examination dated 08/30/2024. FINDINGS: Two AP portable views of the chest performed at 9:29 AM are submitted. There is linear scarring at the left lung base. The lungs are otherwise clear. There is no pleural effusion, pneumothorax, or pulmonary vascular congestion. The heart is normal in size. There is degenerative disc disease of the spine. XR/XR chest 1V IMPRESSION: No acute cardiopulmonary abnormality. Electronically signed by: Victor M Segura MD 12/22/2024 10:01 AM EDT
--- NOTE | 2024-12-22 08:58 | ED_ITS ---
HPI - Chest Pain General Chief Complaint: Chest Pain Stated Complaint: CP Time Seen by Provider: 12/22/24 08:48 Source: patient, EMS and old records reviewed Mode of arrival: EMS Limitations: no limitations History of Present Illness ED Provider: TAHIRA MAS narrative: 64 yo male with PMH of cocaine abuse, PTSD, anxiety, osteomyelitis here with c/o chest pressure and sternal pain since this morning when he woke up. He states he has fatigue x 1 week with nausea and poor appetite. He did smoke THC yesterday to improve his appetite. He denies recent travel or procedures. He states nothing makes the pain worse. He vomited a few times this week. No diarrhea or abdominal pain reported. No chest trauma. He has not had a fever or cough. MD complaint: chest pain Pertinent past history: other Onset (ago): day(s) (few hours this AM) Timing of current episode: constant Prior episodes: Yes Onset: during rest Pain location: substernal Pain radiation: none Severity: moderate Quality: tightness and aching Relieving factors: nothing Exacerbating factors: nothing Associated symptoms: nausea, vomiting and dyspnea Treatment prior to arrival: none Related Data Home Medications ?Medication ?Instructions ?Recorded ?Confirmed atorvastatin 20 mg tablet 20 mg PO BEDTIME 11/11/21 08/30/24 propranolol 10 mg tablet 10 mg PO TID PRN Anxiety 11/11/21 08/30/24 clonazepam 1 mg tablet 1 mg PO BID Anxiety 02/18/23 08/30/24 venlafaxine 150 mg 150 mg PO DAILY 07/13/24 08/30/24 capsule,extended release 24 hr amlodipine 5 mg tablet 5 mg PO DAILY 08/30/24 08/30/24 aspirin 81 mg tablet,delayed 81 mg PO DAILY 08/30/24 08/30/24 release buspirone 5 mg tablet 5 mg PO BID 08/30/24 08/30/24 cholecalciferol (vitamin D3) 50 50 mcg PO DAILY 08/30/24 08/30/24 mcg (2,000 unit) tablet (Vitamin D3) fenofibrate nanocrystallized 145 145 mg PO DAILY 08/30/24 08/30/24 mg tablet hydroxyzine HCl 25 mg tablet 25 mg PO DAILY Anxiety 08/30/24 08/30/24 omeprazole 20 mg capsule,delayed 20 mg PO BID 08/30/24 08/30/24 release ondansetron 4 mg disintegrating 4 mg PO DIRECTED 08/30/24 08/30/24 tablet semaglutide 2 mg/dose (8 mg/3 mL) 2 mg subcut QWEEK 08/30/24 08/30/24 subcutaneous pen injector (Ozempic) trazodone 50 mg tablet 50 mg PO BEDTIME PRN Insomnia 08/30/24 08/30/24 varenicline tartrate 1 mg tablet 1 mg PO BID 08/30/24 08/30/24 Previous Rx's ?Medication ?Instructions ?Recorded venlafaxine 37.5 mg 37.5 mg PO DAILY #30 caps 02/24/23 capsule,extended release 24 hr olanzapine 5 mg tablet 5 mg PO BID 30 days #60 tabs 08/23/23 albuterol sulfate 90 mcg/actuation 2 inh inhalation Q6-8H PRN 07/16/24 aerosol inhaler shortness of breath or wheezing #18 grams amlodipine 10 mg tablet 10 mg PO DAILY #90 tabs 08/30/24 ondansetron 4 mg disintegrating 4 mg PO Q8H PRN nausea and 12/22/24 tablet vomiting #20 tabs sucralfate 100 mg/mL oral 10 ml PO BID 7 days #140 mL 12/22/24 suspension (Carafate) Allergies Allergy/AdvReac Type Severity Reaction Status Date / Time codeine [CODEINE] AdvReac Severe Nausea Verified 12/22/24 09:02 Review of Systems 2 Review of Systems: Constitutional : No Weight loss, No Fever, No Chills ENT/Mouth : No sore throat, No Rhinorrhea Eyes: No Swelling, No Redness Cardiovascular : pos Chest Pain, pos SOB, No edema Respiratory : No Cough, No Sputum, No Wheezing Gastrointestinal : Positive Nausea, Positive Vomiting, no Diarrhea, no abdominal Pain, No Hematochezia, No Melena Genitourinary : No Dysuria, No Urinary Frequency, No Hematuria, No Urgency Musculoskeletal : No joint pain, No Myalgias, No Joint Swelling Skin : No Skin Lesions, No rash Neuro : No Weakness, No Numbness, No Dizziness, No Headache Psych : No Anxiety/Panic, No Depression Heme/Lymph: No Bruising, No Lymphadenopathy Endocrine : No Polyuria, No Polydipsia All other systems reviewed and are negative. [facility] Past Medical History Attestation statement: The following information was validated with the patient. Source: old records reviewed Medical History Acute viral syndrome Cannabis abuse Cocaine abuse PTSD (post-traumatic stress disorder) Anxiety Hyperlipidemia Depression Osteomyelitis Panic attacks HTN (hypertension) GERD (gastroesophageal reflux disease) Chronic renal insufficiency H/O ETOH abuse Smoker Amputation finger Diabetes Surgical History History of carpal tunnel release of both wrists Hx of foot surgery H/O colonoscopy Family History Family History Other No family history of coronary artery disease Social History Social History Household Members: None Household Members Other:: Self Housing: Apartment Housing Other:: lives in basement of a home Do you presently have visiting nurse or other home services: No Unable to assess alcohol history related to: Refusing to respond Alcohol intake: never Patient Tobacco Use Status: Former Tobacco user Tobacco use type: Cigarette Cigarette Packs Per Day: 0.5 Cigarettes Per Day: 10 Years Smoked: Many e-Cigarette/Vaping Use: Currently Using Substance Use Type: Marijuana Advance Directives: Yes Advance Directives on File: Yes Advance Directives Date on File: 06/24/22 service: Yes Current occupational status: disabled Sexual orientation: Straight/Heterosexual Physical Exam 2 Vital Signs: Vital Signs: Last Vital Signs Temp 97.9 F 12/22/24 12:32 Pulse 60 12/22/24 12:32 Resp 19 12/22/24 12:32 BP 176/90 H 12/22/24 12:32 Pulse Ox 97 12/22/24 12:32 O2 Del Method Room Air 12/22/24 12:32 BMI result Body Mass Index 33.9 Appearance: Alert. Oriented X3. No acute distress. Eyes: Pupils equal, round and reactive to light. ENT: Pharynx normal. Neck: Normal inspection. Neck supple. CVS: Normal heart rate and rhythm. Pulses normal. Respiratory: No respiratory distress. Breath sounds normal. Abdomen: Soft and nontender. Skin: Skin warm and dry. Normal skin color. Normal skin turgor. Extremities: No lower extremity edema. No calf ttp Neuro: Oriented X 3. No motor deficit. No sensory deficit. CN2-12 intact Medications Administered Generic Name Dose Route Start Last Admin Trade Name Danielle PRN Reason Stop Dose Admin Sodium Chloride 1,000 mls @ 80 mls/hr 12/22/24 11:00 12/22/24 11:09 Ns IVCONT 80 mls/hr .[id number] KIM Administration Discontinued Medications Generic Name Dose Route Start Last Admin Trade Name Danielle PRN Reason Stop Dose Admin Potassium Chloride 10 meq in 100 mls @ 100 mls/hr 12/22/24 10:00 12/22/24 11:50 Potassium Chloride/H20 IV 12/22/24 11:59 100 mls/hr Q1H KIM Administration Lorazepam 1 mg 12/22/24 10:46 12/22/24 11:09 Lorazepam 1 Mg Tablet PO 12/22/24 10:47 1 mg ONCE ONE Administration Ondansetron HCl 4 mg 12/22/24 09:10 12/22/24 09:18 Ondansetron Hcl 4 Mg/2 Ml Vial IVPUSH 12/22/24 09:11 4 mg ONCE ONE Administration Potassium Chloride 40 meq 12/22/24 09:56 12/22/24 10:33 Potassium Chloride Er 20 Meq Tab.Er.Prt PO 12/22/24 09:57 40 meq ONCE ONE Administration Medical Decision Making Medical Decision Making [facility] Narrative: 64 yo male with PMH of cocaine abuse, PTSD, anxiety, osteomyelitis here with c/o atyipcal chest pain I get this all time It is not related to exertion, deep breaths has no signs of DVT. At this time will obtain trop x 2, CXR, basic labs and EKG. IV zofran and PO challenge ordered. He has no abdominal ttp on exam and no diarrhea. Differential Diagnosis Differential Diagnoses: The differential diagnosis associated with the presentation includes atypical chest pain, dehydration no prior VTE and no pleuritic pain or tachycardia / hypoxia / signs of DVT doubt VTE it is atyipical for ACS but will obtain trop x 2, labs, CXR Admission/Observation Consideration of admission/observation: Escalation of care including admission/observation considered able to tolerate PO K and trop normal on recheck at this time stable for DC Lab Data [facility] Lab Attestation statement: I reviewed the patient's lab results. 12/22/24 09:16 03/20/25 12:59 Labs: Lab Results 12/22/24 12/22/24 12/22/24 Range/Units 09:16 09:40 12:59 WBC 10.3 (4.8-10.8) X10*3/uL RBC 5.45 (4.60-5.80) X10*6/uL Hgb 16.2 (14.0-18.0) g/dl Hct 45.1 (42.0-52.0) % MCV 82.8 (80.0-98.0) fL MCH 29.7 (27.0-33.0) pg MCHC 35.9 (31.0-36.0) g/dl RDW 13.1 (11.0-16.0) % Plt Count 219 (160-400) X10*3/uL MPV 10.6 (9.4-12.4) fL Immature Gran % (Auto) 0.3 (0.0-0.4) % Neut % (Auto) 72.7 (45-73) % Lymph % (Auto) 15.4 L (20-40) % Richardson % (Auto) 8.3 (2-11) % Eos % (Auto) 2.8 (0-4) % Baso % (Auto) 0.5 (0-2) % Lymph # (Auto) 1.6 (1.2-4.9) X10*3/uL Richardson # (Auto) 0.9 (0.1-1.2) X10*3/uL Eos # (Auto) 0.3 (0.0-0.4) X10*3/uL Baso # (Auto) 0.1 (0.0-0.2) X10*3/uL Abs Immat Gran (auto) 0.03 (0.00-0.03) X10*3/uL Absolute Neuts (auto) 7.5 (2.0-8.3) x10*3/uL Absolute Nucleated RBC 0.000 (0.0-0.012) X10*3/uL Nucleated RBC % (auto) 0.0 (0.0-0.2) /100WBC Sodium 141 (135-145) mmol/L Potassium 2.9 L* D 3.4 (3.3-5.1) mmol/L Chloride 106 (96-108) mmol/L Carbon Dioxide 23 (22-29) mmol/L Anion Gap 15 (12-20) BUN 13 (9-16) mg/dL Creatinine 0.86 (0.5-1.4) mg/dL Estim Creat Clear Calc 101.3 Estimated GFR > 60 Random Glucose 154 H (60-115) mg/dL Calcium 8.5 (8.4-10.2) mg/dL Magnesium 1.7 (1.6-2.6) mg/dL Total Bilirubin 0.9 (0.0-1.0) mg/dL Direct Bilirubin 0.3 (0.0-0.5) mg/dL AST 49 H (5-37) U/L ALT 67 H (0-40) U/L Alkaline Phosphatase 37 L (39-117) U/L Troponin I High Sens 2.9 < 2.7 (<3.5-35.0) ng/L Total Protein 7.2 (6.5-8.0) g/dL Albumin 3.9 (3.5-5.0) g/dL Lipase 50 (8-78) U/L Urine Color Dark Yellow Urine Appearance Clear Urine pH 6.0 (5.0-9.0) Ur Specific [place] 1.020 (1.005-1.025) Urine Protein 100 (2+) H (Neg-Trace) mg/dL Urine Glucose (UA) Negative (Negative) mg/dL Urine Ketones Negative (Negative) mg/dL Urine Blood Negative (Negative) Urine Nitrite Negative (Negative) Ur Leukocyte Esterase Negative (Negative) Urine RBC 0-2 (0-2) /HPF Urine WBC 0-5 (0-5) /HPF Ur Squamous Epith Cells 0-2 (0-2) /HPF Urine Bacteria None Seen (None Seen) Hyaline Casts 0-2 (0-2) /LPF Urine Opiates Screen Not Detected (Not Detect) Ur Buprenorphine Scrn Not Detected (Not Detect) ng/mL Ur Oxycodone Screen Not Detected (Not Detect) ng/mL Urine Methadone Screen Not Detected (Not Detect) ng/mL Urine Fentanyl Screen Not Detected (Not Detect) Ur Barbiturates Screen Not Detected (Not Detect) Ur Phencyclidine Scrn Not Detected (Not Detect) Ur Amphetamines Screen Not Detected (Not Detect) U Benzodiazepines Scrn POSITIVE H (Not Detect) Urine Cocaine Screen Not Detected (Not Detect) U Marijuana (THC) Screen POSITIVE H (Not Detect) Ethyl Alcohol < 10 mg/dL Influenza Type A (PCR) NEGATIVE (Negative) Influenza Type B (PCR) NEGATIVE (Negative) RSV RNA Qual (PCR) NEGATIVE (Negative) SARS-CoV-2 RNA (RT-PCR) NEGATIVE (Negative) Independent Interpretation I performed an independent interpretation of an: EKG and Plain X-Ray (normal ) Interpretation: Rate: 74 Rhythm: NSR [place]: left Normal P waves. Normal NARGIS. Normal QRS complex. ST T wave : nonspecific ST T wave changes and ant lateral t wave inversions , no LALO qTC: 421 prior studies: no change from priors The study has been interpreted contemporaneously by me. . Radiology Impression Discussion of test interpretation with radiology: I have reviewed the radiologist's reading. External Record Review External record reviewed: Inpatient record and Outpatient record Prescription Management I considered prescription management with: Other Critical Care Time Critical Care Time Critical Care Time: Yes Total Critical Care Time: 60 Attestation: repeat labs, IV K repletion, review of records, IVF I attest to this time spent taking care of the patient Discharge Plan Discharge Clinical Impression: Acute hypokalemia Nausea & vomiting Qualifiers: Vomiting type: unspecified Qualified Code(s): R11.2 - Nausea with vomiting, unspecified Patient Disposition: Home, Self-Care Instructions: Hypokalemia (ED), Acute Nausea and Vomiting (ED) Additional Instructions: repeat labs normal EKG normal at this time bland diet and take nausea/vomiting medications as prescribed please consult our GI doctor Prescriptions: New ondansetron 4 mg tablet,disintegrating 4 mg PO Q8H PRN (Reason: nausea and vomiting) Qty: 20 0RF sucralfate [Carafate] 100 mg/mL suspension 10 ml PO BID 7 Days Qty: 140 0RF No Action atorvastatin 20 mg Tablet 20 mg PO BEDTIME propranolol 10 mg Tablet 10 mg PO TID PRN (Reason: Anxiety) clonazepam 1 mg tablet 1 mg PO BID venlafaxine 37.5 mg capsule,extended release 24hr 37.5 mg PO DAILY Qty: 30 0RF olanzapine 5 mg Tablet 5 mg PO BID 30 Days Qty: 60 1RF buspirone 5 mg Tablet 5 mg PO BID amlodipine 5 mg Tablet 5 mg PO DAILY aspirin 81 mg Tablet,Delayed Release (Dr/Ec) 81 mg PO DAILY omeprazole 20 mg Capsule,Delayed Release(Dr/Ec) 20 mg PO BID ondansetron 4 mg Tablet,Disintegrating 4 mg PO DIRECTED Rx Instructions: Take one tablet as directed for panic attacks. varenicline tartrate 1 mg Tablet 1 mg PO BID fenofibrate nanocrystallized 145 mg Tablet 145 mg PO DAILY cholecalciferol (vitamin D3) [Vitamin D3] 50 mcg (2,000 unit) Tablet 50 mcg PO DAILY Ozempic 2 mg/dose (8 mg/3 mL) Pen Injector 2 mg SUBCUT QWEEK trazodone 50 mg tablet 50 mg PO BEDTIME PRN (Reason: Insomnia) hydroxyzine HCl 25 mg tablet 25 mg PO DAILY amlodipine 10 mg tablet 10 mg PO DAILY Qty: 90 0RF venlafaxine 150 mg capsule,extended release 24hr 150 mg PO DAILY albuterol sulfate 90 mcg/actuation HFA aerosol inhaler 2 inh inhalation Q6-8H PRN (Reason: shortness of breath or wheezing) Qty: 18 0RF Referrals: [facility] [Provider Group] Print Language: Irish
[2024-12-22 09:00] VITALS: BP 160/99; PULSE 73; RESP 14; TEMP 36.5; O2SAT 95; BMI 33.9
[2024-12-22] MEDS: ondansetron HCL 4 MG/2 ML VIAL IVPUSH (09:18)
[2024-12-22 09:23] LABS: MANUAL DIFF FLAG NO
[2024-12-22 09:33] LABS: Basophils Absolute Auto 0.1 X10*3/uL (0.0-0.2); Basophils Percent Auto 0.5 % (0-2); Eosinophils Absolute Auto 0.3 X10*3/uL (0.0-0.4); Eosinophils Percent Auto 2.8 % (0-4); Hematocrit 45.1 % (42.0-52.0); Hemoglobin 16.2 g/dl (14.0-18.0); Imm Gran Abs Auto 0.03 X10*3/uL (0.00-0.03); Imm Gran Pct Auto 0.3 % (0.0-0.4); Lymphocytes Absolute Auto 1.6 X10*3/uL (1.2-4.9); Lymphocytes Percent Auto 15.4 % (20-40); Mean Corpuscular HGB Conc 35.9 g/dl (31.0-36.0); Mean Corpuscular Hemoglobin 29.7 pg (27.0-33.0); Mean Corpuscular Volume 82.8 fL (80.0-98.0); Mean Platelet Volume 10.6 fL (9.4-12.4); Monocytes Absolute Auto 0.9 X10*3/uL (0.1-1.2); Monocytes Percent Auto 8.3 % (2-11); Neutrophils Absolute Auto 7.5 x10*3/uL (2.0-8.3); Neutrophils Percent Auto 72.7 % (45-73); Platelet Count 219 X10*3/uL (160-400); Red Blood Count 5.45 X10*6/uL (4.60-5.80); Red Cell Distribution Width 13.1 % (11.0-16.0); White Blood Count 10.3 X10*3/uL (4.8-10.8)
[2024-12-22 09:46] LABS: Ethanol < 10 mg/dL
[2024-12-22 09:48] LABS: Alanine Aminotransferase 67 U/L (0-40); Albumin Level 3.9 g/dL (3.5-5.0); Alkaline Phosphatase 37 U/L (39-117); Aspartate Amino Transferase 49 U/L (5-37); Bilirubin Direct 0.3 mg/dL (0.0-0.5); Bilirubin Total 0.9 mg/dL (0.0-1.0); Blood Urea Nitrogen 13 mg/dL (9-16); Calcium 8.5 mg/dL (8.4-10.2); Creatinine Clr Calc Pharmacy 101.3; Estimated Glomerular Filt Rate > 60; Glucose Random 154 mg/dL (60-115); Lipase 50 U/L (8-78); Magnesium 1.7 mg/dL (1.6-2.6); Total Protein 7.2 g/dL (6.5-8.0)
[2024-12-22 09:51] LABS: Appearance Urine Clear; Color Urine Dark Yellow; Glucose Urine UA Negative (Negative); Leukocyte Esterase Urine Negative (Negative); Nitrite Urine Negative (Negative); UMIC TRIGGER UACC YES; Urine Blood Negative (Negative); Urine Ketones Negative (Negative); Urine Protein 100 (2+) mg/dL (Neg-Trace)
[2024-12-22 09:53] LABS: Bacteria Urine None Seen (None Seen); Hyaline Casts Urine 0-2 /LPF (0-2); RBC Urine 0-2 /HPF (0-2); Squamous Epithelial Cell Urine 0-2 /HPF (0-2); WBC Urine 0-5 /HPF (0-5)
[2024-12-22 09:55] LABS: Troponin-I High Sensitivity 2.9 ng/L (<3.5-35.0)
[2024-12-22 09:56] LABS: Anion Gap 15 (12-20); Carbon Dioxide 23 mmol/L (22-29); Chloride 106 mmol/L (96-108); Potassium 2.9 mmol/L (3.3-5.1); Sodium 141 mmol/L (135-145)
[2024-12-22 10:00] LABS: Amphetamine Screen Urine Not Detected (Not Detect); Barbiturates, Urine Not Detected (Not Detect); Benzodiazepines Screen Urine POSITIVE (Not Detect); Buprenorphine Scr Not Detected (Not Detect); Cannabinoid Screen Urine POSITIVE (Not Detect); Cocaine Screen Urine Not Detected (Not Detect); Fentanyl, urine Not Detected (Not Detect); Methadone Screen, Urine Not Detected (Not Detect); Opiate Screen Urine Not Detected (Not Detect); Oxycodone Screen Urine Not Detected (Not Detect); Phencyclidine Screen Urine Not Detected (Not Detect)
[2024-12-22 10:11] VITALS: BP 149/91; PULSE 79; RESP 20; O2SAT 95
[2024-12-22 10:12] LABS: Influenza A PCR NEGATIVE (Negative); Influenza B PCR NEGATIVE (Negative); Resp Syncy Virus RNA Qual PCR NEGATIVE (Negative); SARS COV2 PCR INHOUSE NEGATIVE (Negative)
[2024-12-22] MEDS: Potassium Chloride ER 20 MEQ TAB.ER.PRT 40 MEQ PO (10:33)
[2024-12-22] MEDS: Potassium Chloride/H20 10 MEQ/100 ML PIGGYBACK 100 MEQ IV ×2 (10:34→11:50)
[2024-12-22] MEDS: LORazepam 1 MG TABLET PO (11:09)
[2024-12-22] MEDS: 0.9 % Sodium Chloride 1,000 ML 80 ML IVCONT (11:09)
[2024-12-22 12:32] VITALS: BP 176/90; PULSE 60; RESP 19; TEMP 36.6; O2SAT 97
[2024-12-22 13:12] LABS: Potassium 3.4 mmol/L (3.3-5.1)
[2024-12-22 13:25] LABS: Troponin-I High Sensitivity < 2.7 ng/L (<3.5-35.0)
[2024-12-22 14:15] VITALS: BP 168/94; PULSE 60; RESP 19; TEMP 36.6; O2SAT 97
== END 2024-12-22 14:16 | disposition home or self-care (01) ==
PROVIDERS: Emergency Provider Emergency Medicine; PCP Physician Assistant Medical
DX: E87.6 Hypokalemia (principal); R11.2 Nausea with vomiting, unspecified; R06.02 Shortness of breath; E11.9 Type 2 diabetes mellitus without complications; I10 Essential (primary) hypertension; E78.5 Hyperlipidemia, unspecified; F14.10 Cocaine abuse, uncomplicated; F12.10 Cannabis abuse, uncomplicated; F43.10 Post-traumatic stress disorder, unspecified; F41.0 Panic disorder [episodic paroxysmal anxiety]; F33.1 Major depressive disorder, recurrent, moderate; Z87.891 Personal history of nicotine dependence; Z79.899 Other long term (current) drug therapy; Z03.818 Encounter for observation for suspected exposure to other biological agents ruled out; Z79.02 Long term (current) use of antithrombotics/antiplatelets
CPT/HCPCS: 0241U; 36415; 71045; 80048; 80076; 80307; 81001; 83690; 83735; 84132; 84484; 85025; 93005; 96365; 96375; 99284; J2405; J3480

== ENCOUNTER → 2024-12-22 08:55 | Outpatient (BNV) | payer OTHER, SELFPAY | PROVIDERS: Emergency Provider Emergency Medicine; PCP Physician Assistant Medical; Visit Provider Internal Medicine Cardiovascular Disease | DX: I45.10 Unspecified right bundle-branch block (principal) | CPT/HCPCS: 93010 ==

== ENCOUNTER → 2024-12-22 09:11 | Outpatient (BNV) | payer OTHER, SELFPAY | PROVIDERS: Emergency Provider Emergency Medicine; PCP Physician Assistant Medical; Visit Provider Radiology Diagnostic Radiology | DX: J84.10 Pulmonary fibrosis, unspecified (principal) | CPT/HCPCS: 71045 ==

== ENCOUNTER 2025-02-01 14:35 | Emergency (ER) | payer OTHER, SELFPAY ==
--- NOTE | ~2025-02-01 | US_ITS ---
EXAMINATION: US TRIPLEX LOWER EXTREMITY, BILATERAL CLINICAL INFORMATION: Bilateral lower extremity swelling. COMPARISON: None available. TECHNIQUE: Color-flow triplex imaging with spectral analysis and compression Doppler were performed on the bilateral lower extremities. FINDINGS: Respiratory variation, normal compression and augmented flow are noted throughout the bilateral lower extremities. The visualized common femoral vein, superficial femoral vein, profunda femoral vein, popliteal vein and midcalf peroneal and posterior tibial venous segments show no evidence of deep venous thrombosis bilaterally. There is no Cortez's cyst. US/US venous duplex LE BI IMPRESSION: No evidence of deep venous thrombosis involving the bilateral lower extremities. Electronically signed by: Reji Ribera MD 02/01/2025 03:39 PM EDT
[2025-02-01 14:44] VITALS: BP 122/67; PULSE 71; RESP 12; TEMP 36.8; O2SAT 94; BMI 38.1
--- NOTE | 2025-02-01 14:49 | ED.GENADULT ---
HPI - General Adult General Chief complaint: Extremity Injury, Lower Stated complaint: bilat RLE swelling x2wks, hx foot and bone infect Time Seen by Provider: 02/01/25 14:40 Source: patient Mode of arrival: EMS Limitations: no limitations History of Present Illness HPI narrative: This is a 64 years old the patient with a history of diabetes, osteomyelitis of the left great toe, PTSD, anxiety, substance abuse presented to the emergency department by ambulance with a chief complaint of lower extremity swelling right side more than left. Denies any injury denies any fever. He just return from [place] he traveled to [place] for a . Onset (ago): day(s) (2) Location: lower extremity (rt more than left) Radiation: extremity Severity: moderate Quality: burning Relieving factors: none Exacerbating factors: none Associated symptoms: denies other symptoms Related Data Home Medications ?Medication ?Instructions ?Recorded ?Confirmed atorvastatin 20 mg tablet 20 mg PO BEDTIME 11/11/21 08/30/24 propranolol 10 mg tablet 10 mg PO TID PRN Anxiety 11/11/21 08/30/24 clonazepam 1 mg tablet 1 mg PO BID Anxiety 02/18/23 08/30/24 venlafaxine 150 mg 150 mg PO DAILY 07/13/24 08/30/24 capsule,extended release 24 hr amlodipine 5 mg tablet 5 mg PO DAILY 08/30/24 08/30/24 aspirin 81 mg tablet,delayed 81 mg PO DAILY 08/30/24 08/30/24 release buspirone 5 mg tablet 5 mg PO BID 08/30/24 08/30/24 cholecalciferol (vitamin D3) 50 50 mcg PO DAILY 08/30/24 08/30/24 mcg (2,000 unit) tablet (Vitamin D3) fenofibrate nanocrystallized 145 145 mg PO DAILY 08/30/24 08/30/24 mg tablet hydroxyzine HCl 25 mg tablet 25 mg PO DAILY Anxiety 08/30/24 08/30/24 omeprazole 20 mg capsule,delayed 20 mg PO BID 08/30/24 08/30/24 release ondansetron 4 mg disintegrating 4 mg PO DIRECTED 08/30/24 08/30/24 tablet semaglutide 2 mg/dose (8 mg/3 mL) 2 mg subcut QWEEK 08/30/24 08/30/24 subcutaneous pen injector (Ozempic) trazodone 50 mg tablet 50 mg PO BEDTIME PRN Insomnia 08/30/24 08/30/24 varenicline tartrate 1 mg tablet 1 mg PO BID 08/30/24 08/30/24 Previous Rx's ?Medication ?Instructions ?Recorded venlafaxine 37.5 mg 37.5 mg PO DAILY #30 caps 02/24/23 capsule,extended release 24 hr olanzapine 5 mg tablet 5 mg PO BID 30 days #60 tabs 08/23/23 albuterol sulfate 90 mcg/actuation 2 inh inhalation Q6-8H PRN 07/16/24 aerosol inhaler shortness of breath or wheezing #18 grams amlodipine 10 mg tablet 10 mg PO DAILY #90 tabs 08/30/24 ondansetron 4 mg disintegrating 4 mg PO Q8H PRN nausea and 12/22/24 tablet vomiting #20 tabs sucralfate 100 mg/mL oral 10 ml PO BID 7 days #140 mL 12/22/24 suspension (Carafate) cephalexin 500 mg capsule 500 mg PO Q8H 7 days #21 caps 02/01/25 furosemide 20 mg tablet (Lasix) 20 mg PO DAILY 3 days #3 tabs 02/01/25 Allergies Allergy/AdvReac Type Severity Reaction Status Date / Time codeine [CODEINE] AdvReac Severe Nausea Verified 02/01/25 14:46 Review of Systems Constitutional: Constitutional: Reports no additional constitutional complaints ENT: Reports system reviewed and no additional complaints, except as documented Cardiovascular: Cardiovascular: Reports no additional cardiovascular complaints Musculoskeletal: Musculoskeletal: Reports as per [facility] Past Medical History Attestation statement: The following information was validated with the patient. Medical History Acute viral syndrome Cannabis abuse Cocaine abuse PTSD (post-traumatic stress disorder) Anxiety Hyperlipidemia Depression Osteomyelitis Panic attacks HTN (hypertension) GERD (gastroesophageal reflux disease) Chronic renal insufficiency H/O ETOH abuse Smoker Amputation finger Diabetes Surgical History History of carpal tunnel release of both wrists Hx of foot surgery H/O colonoscopy Family History Family History Other No family history of coronary artery disease Social History Social History Household Members: None Household Members Other:: Self Housing: Apartment Housing Other:: lives in basement of a home Do you presently have visiting nurse or other home services: No Unable to assess alcohol history related to: Refusing to respond Alcohol intake: never Patient Tobacco Use Status: Former Tobacco user Tobacco use type: Cigarette Cigarette Packs Per Day: 0.5 Cigarettes Per Day: 10 Years Smoked: Many e-Cigarette/Vaping Use: Currently Using Substance Use Type: Marijuana Advance Directives: Yes Advance Directives on File: Yes Advance Directives Date on File: 06/24/22 service: Yes Current occupational status: disabled Sexual orientation: Straight/Heterosexual Physical Exam ED Vital Signs: Vital Signs - 24 hr 02/01/25 14:44 Temperature 98.2 F Pulse Rate 71 Respiratory Rate 12 Blood Pressure 122/67 Pulse Oximetry 94 Oxygen Delivery Method Room Air BMI result Body Mass Index 38.1 No acute distress he is comfortable in the stretcher Const General: cooperative, comfortable and no acute distress Nutritional Appearance: well nourished Orientation/consciousness: patient oriented x3 Limitations: no limitations HENMT Head: Yes normal to inspection General nose exam: Normal external nose present Face and sinus: Yes normal facial exam Throat: Yes posterior oropharynx normal Neck Neck: Yes normal visual inspection and Yes full ROM Chest Chest palpation & inspection: normal inspection of the chest Resp Effort & Inspection: normal respiratory effort Cardio Jugular venous distension: no JVD Rate: regular rate Rhythm: regular rhythm GI Inspection: Yes normal to inspection Palpation (GI): Soft to palpation, not firm, nontender and no guarding Auscultation: normal bowel sounds Neuro General: patient oriented x3 Extrem Other: Examination of the lower extremity shows swelling bilateral more in the right side he has good pedal pulses. Course Reevaluation(s) Reevaluation #1: Ultrasound bilateral leg no evidence of DVT, his white count is normal, C-reactive protein only 0.7 I think he can be discharged home his right leg is slightly warm I will send him home on antibiotic and furosemide. Patient is very comfortable with the plan of care Time: 15:52 Medical Decision Making Medical Decision Making MDM Narrative: Patient is here with swelling of the lower extremity right more than left differential diagnosis DVT/cellulitis Differential Diagnosis Differential Diagnoses: The differential diagnosis associated with the presentation includes DVT/Cellulitis Admission/Observation Consideration of admission/observation: Escalation of care including admission/observation considered Lab Data MDM Lab Attestation statement: I reviewed the patient's lab results. 02/01/25 14:56 02/01/25 14:56 Labs: Lab Results 02/01/25 Range/Units 14:56 WBC 8.4 (4.8-10.8) X10*3/uL RBC 4.85 (4.60-5.80) X10*6/uL Hgb 14.3 (14.0-18.0) g/dl Hct 41.9 L (42.0-52.0) % MCV 86.4 (80.0-98.0) fL MCH 29.5 (27.0-33.0) pg MCHC 34.1 (31.0-36.0) g/dl RDW 13.2 (11.0-16.0) % Plt Count 268 (160-400) X10*3/uL MPV 10.0 (9.4-12.4) fL Immature Gran % (Auto) 0.4 (0.0-0.4) % Neut % (Auto) 59.0 (45-73) % Lymph % (Auto) 29.3 (20-40) % [place] % (Auto) 7.6 (2-11) % Eos % (Auto) 2.6 (0-4) % Baso % (Auto) 1.1 (0-2) % Lymph # (Auto) 2.5 (1.2-4.9) X10*3/uL [place]ley # (Auto) 0.6 (0.1-1.2) X10*3/uL Eos # (Auto) 0.2 (0.0-0.4) X10*3/uL Baso # (Auto) 0.1 (0.0-0.2) X10*3/uL Abs Immat Gran (auto) 0.03 (0.00-0.03) X10*3/uL Absolute Neuts (auto) 5.0 (2.0-8.3) x10*3/uL Absolute Nucleated RBC 0.000 (0.0-0.012) X10*3/uL Nucleated RBC % (auto) 0.0 (0.0-0.2) /100WBC Sodium 139 (135-145) mmol/L Potassium 3.9 (3.3-5.1) mmol/L Chloride 102 (96-108) mmol/L Carbon Dioxide 26 (22-29) mmol/L Anion Gap 15 (12-20) BUN 11 (9-16) mg/dL Creatinine 1.15 (0.5-1.4) mg/dL Estim Creat Clear Calc 80.4 Estimated GFR > 60 Random Glucose 132 H (60-115) mg/dL Lactic Acid 1.8 (0.5-2.0) mmol/L Calcium 9.0 (8.4-10.2) mg/dL Total Bilirubin 0.3 (0.0-1.0) mg/dL AST 32 (5-37) U/L ALT 40 (0-40) U/L Alkaline Phosphatase 38 L (39-117) U/L C-Reactive Protein 0.70 H (< or = 0.50) mg/dL Total Protein 6.8 (6.5-8.0) g/dL Albumin 3.8 (3.5-5.0) g/dL Independent Interpretation I performed an independent interpretation of an: Ultrasound Interpretation: No DVT Radiology Impression Discussion of test interpretation with radiology: I have reviewed the radiologist's reading. Radiologist Impression: TECHNIQUE: Color-flow triplex imaging with spectral analysis and compression Doppler were performed on the bilateral lower extremities. FINDINGS: Respiratory variation, normal compression and augmented flow are noted throughout the bilateral lower extremities. The visualized common femoral vein, superficial femoral vein, profunda femoral vein, popliteal vein and midcalf peroneal and posterior tibial venous segments show no evidence of deep venous thrombosis bilaterally. There is no Cortez's cyst. US/US venous duplex LE BI IMPRESSION: No evidence of deep venous thrombosis involving the bilateral lower extremities. Electronically signed by: Reji Ribera MD 02/01/2025 03:39 PM EDT Dictated By: Reji Ribera MD Signed By: <Electronically signed by Reji Ribera MD in OV> 02/01/25 [id number] Independent Historian Clinical information obtained from an independent historian. History obtained from or confirmed by: EMS External Record Review External record reviewed: Inpatient record Prescription Management I considered prescription management with: Antibiotic Chronic Conditions Patient?s care impacted by: Other (alcohol abuse) Discharge Plan Discharge Clinical Impression: Bilateral edema of lower extremity, Cellulitis of right leg Patient Disposition: Home, Self-Care Instructions: Cellulitis (DC), Leg Edema (ED) Additional Instructions: Take furosemide (water pill) for 3 days, keep your leg elevated, also we gave you in an antibiotic Keflex to take as directed. Return to the emergency room if you worse otherwise follow-up with your primary care physician Prescriptions: New cephalexin 500 mg capsule 500 mg PO Q8H 7 Days Qty: 21 0RF furosemide [Lasix] 20 mg tablet 20 mg PO DAILY 3 Days Qty: 3 0RF No Action atorvastatin 20 mg Tablet 20 mg PO BEDTIME propranolol 10 mg Tablet 10 mg PO TID PRN (Reason: Anxiety) clonazepam 1 mg tablet 1 mg PO BID venlafaxine 37.5 mg capsule,extended release 24hr 37.5 mg PO DAILY Qty: 30 0RF olanzapine 5 mg Tablet 5 mg PO BID 30 Days Qty: 60 1RF buspirone 5 mg Tablet 5 mg PO BID amlodipine 5 mg Tablet 5 mg PO DAILY aspirin 81 mg Tablet,Delayed Release (Dr/Ec) 81 mg PO DAILY omeprazole 20 mg Capsule,Delayed Release(Dr/Ec) 20 mg PO BID ondansetron 4 mg Tablet,Disintegrating 4 mg PO DIRECTED Rx Instructions: Take one tablet as directed for panic attacks. varenicline tartrate 1 mg Tablet 1 mg PO BID fenofibrate nanocrystallized 145 mg Tablet 145 mg PO DAILY cholecalciferol (vitamin D3) [Vitamin D3] 50 mcg (2,000 unit) Tablet 50 mcg PO DAILY Ozempic 2 mg/dose (8 mg/3 mL) Pen Injector 2 mg SUBCUT QWEEK trazodone 50 mg tablet 50 mg PO BEDTIME PRN (Reason: Insomnia) hydroxyzine HCl 25 mg tablet 25 mg PO DAILY amlodipine 10 mg tablet 10 mg PO DAILY Qty: 90 0RF venlafaxine 150 mg capsule,extended release 24hr 150 mg PO DAILY albuterol sulfate 90 mcg/actuation HFA aerosol inhaler 2 inh inhalation Q6-8H PRN (Reason: shortness of breath or wheezing) Qty: 18 0RF ondansetron 4 mg tablet,disintegrating 4 mg PO Q8H PRN (Reason: nausea and vomiting) Qty: 20 0RF sucralfate [Carafate] 100 mg/mL suspension 10 ml PO BID 7 Days Qty: 140 0RF Print Language: Slovak
[2025-02-01 15:00] LABS: MANUAL DIFF FLAG NO
--- NOTE | 2025-02-01 15:01 | PC.NURSE ---
patient presents to the ED with right leg swelling, patient has hx of infection in that foot in the past requiring picc line. patient recently traveled to [place] via bus. patient right leg noted to have swelling and warmth, patient has positive pedal pulses bilat. patient is alert and oriented x4, states he is ambulatory at baseline but with the pain he is having difficulty ambulating. 18# placed in patient LFA, labs obtained and sent.
[2025-02-01 15:02] LABS: Basophils Absolute Auto 0.1 X10*3/uL (0.0-0.2); Basophils Percent Auto 1.1 % (0-2); Eosinophils Absolute Auto 0.2 X10*3/uL (0.0-0.4); Eosinophils Percent Auto 2.6 % (0-4); Hematocrit 41.9 % (42.0-52.0); Hemoglobin 14.3 g/dl (14.0-18.0); Imm Gran Abs Auto 0.03 X10*3/uL (0.00-0.03); Imm Gran Pct Auto 0.4 % (0.0-0.4); Lymphocytes Absolute Auto 2.5 X10*3/uL (1.2-4.9); Lymphocytes Percent Auto 29.3 % (20-40); Mean Corpuscular HGB Conc 34.1 g/dl (31.0-36.0); Mean Corpuscular Hemoglobin 29.5 pg (27.0-33.0); Mean Corpuscular Volume 86.4 fL (80.0-98.0); Monocytes Absolute Auto 0.6 X10*3/uL (0.1-1.2); Monocytes Percent Auto 7.6 % (2-11); Platelet Count 268 X10*3/uL (160-400); Red Blood Count 4.85 X10*6/uL (4.60-5.80); Red Cell Distribution Width 13.2 % (11.0-16.0); White Blood Count 8.4 X10*3/uL (4.8-10.8)
[2025-02-01 15:15] LABS: Lactic Acid 1.8 mmol/L (0.5-2.0)
[2025-02-01 15:20] LABS: Alanine Aminotransferase 40 U/L (0-40); Albumin Level 3.8 g/dL (3.5-5.0); Alkaline Phosphatase 38 U/L (39-117); Anion Gap 15 (12-20); Aspartate Amino Transferase 32 U/L (5-37); Bilirubin Total 0.3 mg/dL (0.0-1.0); Blood Urea Nitrogen 11 mg/dL (9-16); Carbon Dioxide 26 mmol/L (22-29); Chloride 102 mmol/L (96-108); Creatinine Clr Calc Pharmacy 80.4; Estimated Glomerular Filt Rate > 60; Glucose Random 132 mg/dL (60-115); Potassium 3.9 mmol/L (3.3-5.1); Sodium 139 mmol/L (135-145); Total Protein 6.8 g/dL (6.5-8.0)
[2025-02-01 16:03] VITALS: BP 128/80; PULSE 73; RESP 14; TEMP 36.8; O2SAT 97
--- OUTSIDE RECORDS SUMMARY | 2025-02-01 16:04 | XMS_ITS | Encounter Summary ---
Author Name Department of [place] ([place]) Organization [facility] Address [address] [place] [address] Care Team Providers Care Charrer Name Role Phone AUSTIN BALDWIN Primary Care [...] Relationship to Policy Lomas PATRICIO MULLIGAN-ESME R [place] SPECIAL [facility] PATRICIO ERICKSON Nov 14, 2024 PATRICIO MULLIGAN [id number] Dougie RIVERA PATIENT [facility] MEDICA[facility] MEDICAID MEDIC AID Oct 05, 2016 MEDICAI D [id number] NICOLE,Dougie NALLELY PATIENT MEDICAID MEDICAID [facility] Oct 05, 2014 MEDICAI D [id number] Dougie RIVERA NALLELY PATIENT MEDICARE (WNR) MEDICARE (M) PART A May 05, 2018 PART A [id number] Dougie RIVERA NALLELY PATIENT MEDICARE (WNR) MEDICARE (M) PART B May 05, 2018 PART B [id number] Dougie RIVERA PATIENT Selected Encounter This section includes the information on record at [place] for the Encounter. Date/Time Encounter Type Encounter Description Reason Pro vider Source Dec 19, 2024 09:30 AM Outpatient Encounter CLINICAL PHARMACY IHE Encounter Template Text not used by [place] Plan of Treatment: Future Appointments (+ 6 months) and Future Tests (+/- 45 days) The Plan of Treatment section includes future care activities for the patient [facility] [place] [facility] This section includes future appointments and future orders which are active, pending or scheduled. Future Appointments This section includes appointments that were scheduled to occur 6 months from the date of the Encounter, up to a maximum of 20 appointments. The data comes from all [facility]. Appointment Date/Time Appointment Type Appointme nt Facility Name Dec 28, 2024 03:00 PM [facility] [place] [facility] Jan 09, 2025 01:30 PM [place] [facility] [place] [facility] Jan 12, 2025 09:00 AM AMBULATORY - MEDICINE [facility] Jan 26, 2025 09:30 AM [facility] [place] [facility] February 08, 2025 01:00 PM AM[place]UL[place]INE [place] [facility] [place] [facility] February 13, 2025 01:00 PM AMBULATORY - MEDICINE [facility] Mar 14, 2025 08:30 AM [facility] [place] [facility] Mar 14, 2025 09:00 AM AM[place]UL[place] [facility] [place] [facility] May 18, 2025 09:00 AM AMBULATORY - MEDICINE [facility] Jun 15, 2025 08:30 AM AMBULATORY - MEDICINE [facility] Active, Pending, and Scheduled Orders This section includes a listing of several types of active, pending, and scheduled orders, including clinic medications orders, diagnostic test orders, procedure orders and consult orders; where the start date of the order is 45 days before the date of the Encounter or 45 days after the date of theEncounter. The data comes from all [facility]. Test Date/Time Test Type Test Details Facility Name Nov 16, 2024 12:00 AM Laboratory - Chemi stry Order FERRITIN BLOOD (SST-SERUM) [facility] Nov 16, 2024 12:00 AM Laboratory - Chemi stry Order HEMOGLOBIN A1C PANEL BLOOD (LAV-BLOOD) [facility] Nov 16, 2024 12:00 AM Laboratory - Chemi stry Order TSH BLOOD (SST-SERUM) [facility] Nov 16, 2024 12:00 AM Laboratory - Chemi stry Order PSA BLOOD (SST-SERUM) [facility] Nov 16, 2024 12:00 AM Laboratory - Chemi stry Order AMYLASE BLOOD (SST-SERUM) [facility] Nov 16, 2024 12:00 AM Laboratory - Chemi stry Order LIPASE BLOOD (SST-SERUM) [facility] Nov 16, 2024 12:00 AM Laboratory - Chemi stry Order URINALYSIS URINE [facility] Nov 16, 2024 12:00 AM Laboratory - Chemi stry Order MICROALBUMIN CREATININE RATIO PANEL URINE (RANDOM) [facility] 12, 2025 12:00 AM Laboratory - Chemi stry Order BASIC METABOLIC PANEL (fasting) BLOOD (SST-SERUM) [facility] Nov 16, 2024 12:00 AM Laboratory - Chemi stry Order LIVER FUNCTION BLOOD (SST-SERUM) [facility] Nov 16, 2024 12:00 AM Laboratory - Chemi stry Order LIPID PANEL FASTING BLOOD (SST-SERUM) [facility] Nov 16, 2024 12:00 AM Laboratory - Chemi stry Order CALCIUM BLOOD (SST-SERUM) [facility] Nov 16, 2024 12:00 AM Laboratory - Chemi stry Order VITAMIN D (25-[place]) BLOOD (SST-SERUM) [facility] Nov 16, 2024 12:00 AM Laboratory - Chemi stry Order URIC ACID BLOOD (SST-SERUM) [facility] Nov 16, 2024 12:00 AM Laboratory - Chemi stry Order CBC AND DIFF (AUTO) BLOOD (LAV-BLOOD) [facility] Lab Results: +/- 30 days of the encounter This section includes the Chemistry and Hematology Lab Results on record with [facility] for the patient. Radiology Reports and Pathology Reports are provided separately, in subsequent sections. Lab Results This section contains the Chemistry/Hematology Results that were resulted 30 days before or 30 daysafter the date of the Encounter. Date/Time Source Result Type Result - Unit Interpretation Reference Range Specimen Type Comment Dec 19, 2024 10:15 AM [facility] GLUCOSE, Fingerstick BLOOD Specimen T ype: BLOOD Comment: For GLU FinTest performed by: Christy Robbins For GLU Fin Meter #: [id number] Ordering Provider: SWAPNIL SCHOFIELD Report Released Date/Time: Dec 19, 2024 04:05 PM Reporting Lab: [address] [address] Performing Lab: [address] [address] GLUCOSE, Fingerstick 133 mg/dL H 65-100 Dec 15, 2024 09:34 AM [facility] CREATININE (eGFR 2020) SERUM Specimen Type: SERUM No comment entered. Ordering Provider: SWAPNIL SCHOFIELD Report Released Date/Time: Dec 14, 2024 02:29 PM Reporting Lab: [address] [address] Performing Lab: [address] [address] CREATININE, Serum 1.27 mg/dL 0.50-1.40 eGFR(CKD-EPI 2020) 63 mL/min >60 Dec 15, 2024 09:34 AM [facility] HEMOGLOBIN A1C PANEL BLOOD Specimen T ype: [...] Dec 14, 2024 02:29 PM Reporting Lab: [address] [address] Performing Lab: [address] [address] HEMOGLOBIN A1C 5.8 H 4.0-5.6 Social History: Smoking Status (Most current) and Tobacco Use (All prior to encounter date) This section includes the most current, and the historical, smoking and tobacco- related health factors from the [place] facility where the Encounter took place. Current Smoking Status This section includes the most current smoking, or tobacco-related health factor, from the [place] facility where the Encounter took place. Date/Time Current Smoking Status Comment Michela seals Dec 16, 2023 10:00 AM VA-TOBACCO USER EVERY DAY [facility] Tobacco Use History This section includes a history of the smoking, or tobacco-related health factors, that were collected on or before the date of the Encounter. The data comes from the [place] facility where the Encounter took place. Date/Time Smoking Status/Tobacco Use Comment F acility Dec 16, 2023 10:00 AM VA-TOBACCO USE > 1 5 LESS THAN 30 YEARS [facility] Dec 16, 2023 10:00 AM VA-TOBACCO USE 30 YEARS OR MORE [facility] Dec 16, 2023 10:00 AM VA-TOBACCO USE ADVICE [facility] Dec 16, 2023 10:00 AM VA-TOBACCO USE WHARF TENDER HEAD NO [facility] Dec 16, 2023 10:00 AM VA-TOBACCO USE WHARF TENDER HEAD YES [facility] Dec 16, 2023 10:00 AM VA-TOBACCO USE MED NO [facility] Dec 16, 2023 10:00 AM VA-TOBACCO USE MED YES [facility] Dec 16, 2023 10:00 AM VA-TOBACCO USE WI 30 MIN OF WAKEUP [facility] Dec 16, 2023 10:00 AM VA-TOBACCO USER EVERY DAY [facility] Jan 13, 2023 02:00 PM VA-TOBACCO USE 1 T O < 5 YEARS [facility] Jan 13, 2023 02:00 PM VA-TOBACCO USE ADVICE [facility] Jan 13, 2023 02:00 PM VA-TOBACCO USE WHARF TENDER HEAD NO [facility] Jan 13, 2023 02:00 PM VA-TOBACCO USE MED NO [facility] Jan 13, 2023 02:00 PM VA-TOBACCO USE WI 30 MIN OF WAKEUP [facility] Jan 13, 2023 02:00 PM VA-TOBACCO USER EVERY DAY [facility] Jul 03, 2022 09:00 AM VA-TOBACCO FORMER USER [facility] Jul 03, 2022 09:00 AM VA-TOBACCO QUIT 5 TO < 15 YRS [facility] Jul 04, 2021 09:00 AM VA-TOBACCO USE > 1 5 LESS THAN 30 YEARS [facility] Jul 04, 2021 09:00 AM VA-TOBACCO USE ADVICE [facility] Jul 04, 2021 09:00 AM VA-TOBACCO USE WHARF TENDER HEAD NO [facility] Jul 04, 2021 09:00 AM VA-TOBACCO USE MED NO [facility] Jul 04, 2021 09:00 AM VA-TOBACCO USE WI 30 MIN OF WAKEUP [facility] Jul 04, 2021 09:00 AM VA-TOBACCO USER SOME DAYS [facility] Apr 30, 2020 10:39 AM VA-TOBACCO FORMER USER [facility] Apr 30, 2020 10:39 AM VA-TOBACCO QUIT 5 TO < 15 YRS [facility] Dec 21, 2018 03:15 PM VA-TOBACCO FORMER USER [facility] Dec 21, 2018 03:15 PM VA-TOBACCO QUIT 1 TO < 5 YRS [facility] Nov 24, 2017 09:54 AM CURRENT SMOKER cigarets [facility] Nov 24, 2017 09:54 AM V1-PT READY TO SHARAN T TOBACCO USE [facility] Mar 25, 2017 01:57 PM CURRENT SMOKER down to 10 cigarettes daily [facility] Mar 25, 2017 01:57 PM V1-PT DECLINES TOB ACCO CESSATION MEDS [facility] Mar 25, 2017 01:57 PM V1-PT READY TO SHARAN T TOBACCO USE [facility] March 04, 2017 02:38 PM CURRENT SMOKER advise stopm [facility] Jul 22, 2016 09:29 AM V1-PT NOT INTEREST ED IN QUIT TOBACCO USE [facility] Nov 21, 2015 09:21 AM CURRENT SMOKER half a pack a day [facility] Nov 21, 2015 09:21 AM V1-PT NOT INTEREST ED IN QUIT TOBACCO USE [facility] Nov 23, 2014 08:51 AM CURRENT SMOKER [facility] Nov 23, 2014 08:51 AM V1-PT READY TO SHARAN T TOBACCO USE [facility] Dec 16, 2013 02:19 PM CURRENT SMOKER 3/4 pack a day [facility] Dec 16, 2013 02:19 PM V1-PT THINKING ABO [place] QUIT TOBACCO USE [facility] Advance Directives: All historical and current Section Date Range: From patient's date of to the date document was created. This section includes ALL of a patient's completed or amended [place] Advance and Rescinded Directives. The entries below indicate that a directive exists for the patient, but an actual copy is not included with this document. The data comes from all [place] facilities. Date Advance Directives Provider Source Dec 12, 2014 ADVANCE DIRECTIVE KATRIN GREEN
--- OUTSIDE RECORDS SUMMARY | 2025-02-01 16:04 | XMS_ITS ---
Author Name Department [place] Organization [place] Address [address] [place] [address] Care Team Providers Care Traveling Electrician Name Role Phone AUSTIN BALDWIN Primary Care [...] Relationship to Policy Lomas PATRICIO MULLIGAN-ESME Jones [place] [facility] PATRICIO ERICKSON Nov 14, 2024 PATRICIO MULLIGAN [id number] NICOLE,A NALLELY PATIENT [facility] MEDICAID MEDICAID MEDIC AID Oct 05, 2016 MEDICAI D [id number] NICOLE,A NALLELY PATIENT MEDICAID MEDICAID [facility] Oct 05, 2014 MEDICAI D [id number] NICOLE,A NALLELY PATIENT MEDICARE (WNR) MEDICARE (M) PART A May 05, 2018 PART A [id number] [facility] Dougie RIVERA NALLELY PATIENT MEDICARE (WNR) MEDICARE (M) PART B May 05, 2018 PART B [id number] [facility] LAUZIER,A NALLELY PATIENT Selected Encounter This section includes the information on record at [place] for the Encounter. Date/Time Encounter Type Encounter Description Reason Pro vider Source Feb 01, 2025 12:02 PM Outpatient Encounter COMMUNITY CARE CONSULT IHE Encounter Template Text not used by [place] Plan of Treatment: Future Appointments (+ 6 months) and Future Tests (+/- 45 days) The Plan of Treatment section includes future care activities for the patient from all [place] treatmentfacilities. This section includes future appointments and future orders which are active, pending or scheduled. Future Appointments This section includes appointments that were scheduled to occur 6 months from the date of the Encounter, up to a maximum of 20 appointments. The data comes from all [facility]. Appointment Date/Time Appointment Type Appointme nt Facility Name February 08, 2025 01:00 PM [facility] February 13, 2025 01:00 PM [facility]ICINE [facility] Mar 14, 2025 08:30 AM [facility] Mar 14, 2025 09:00 AM [facility] May 18, 2025 09:00 AM [facility] Jun 15, 2025 08:30 AM [facility]ICINE [facility] Active, Pending, and Scheduled Orders This section includes a listing of several types of active, pending, and scheduled orders, including clinic medications orders, diagnostic test orders, procedure orders and consult orders; where the start date of the order is 45 days before the date of the Encounter or 45 days after the date of theEncounter. The data comes from all [facility]. Test Date/Time Test Type Test Details Facility Name Mar 18, 2025 12:00 AM Laboratory - Chemistry Order MICROALBUMIN CREATININE RATIO PANEL URINE (RANDOM) [facility] Mar 18, 2025 12:00 AM Laboratory - Chemistry Order BASIC METABOLIC PANEL (non-fasting) BLOOD (SST-SERUM) [facility] Mar 18, 2025 12:00 AM Laboratory - Chemistry Order CBC BLOOD (LAV-BLOOD) [facility] Mar 18, 2025 12:00 AM Laboratory - Chemistry Order FERRITIN BLOOD (SST-SERUM) [facility] Mar 18, 2025 12:00 AM Laboratory - Chemistry Order IRON & TIBC PANEL BLOOD (SST-SERUM) [facility] Advance Directives: All historical and current Section Date Range: From patient's date of to the date document was created. This section includes ALL of a patient's completed or amended [place] Advance and Rescinded Directives. The entries below [...] the Encounter. Date/Time Encounter Note(s) Provider Source Feb 01, 2025 12:02 PM NONVA NOTE: [facility] TITLE: [facility] PRESENTING CARE COORD PLAN STANDARD TITLE: NONVA NOTE DATE OF NOTE: FEB 01, 2025@12:02 ENTRY DATE: FEB 01, 2025@12:02:15 AUTHOR: GISELE WYNN EXP COSIGNER: URGENCY: STATUS: COMPLETED Emergency Notification Intake Date Presenting to the Facility: Dec Method of Contact: Notified from [facility] worklist Notification ID: [id number] [facility] Referral #: [id number] [facility] Name: Hospital: [facility] Address: City: [place] State: [place] Zip Code: Phone : [facility] Facility Point of Contact: Name: Maegan Phone: Chief complaint: CHEST PAIN Primary Diagnosis: Disposition Discharged Date of discharge: Dec Discharge to Comment: ER Only /karlene/ GISELE MCLAIN Signed: 02/01/2025 12:03 Receipt Acknowledged By: * AWAITING SIGNATURE * YOLANDA DIAZ DAWN MARIE SALKUM
--- OUTSIDE RECORDS SUMMARY | 2025-02-01 16:04 | XMS_ITS | Encounter Summary ---
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 Blowing Machine Attendant Name Role Phone AUSTNI BALDWIN [facility] Insurance Providers: All historical and [...] Relationship to Policy Lomas PATRICIO MULLIGAN-ESME R [facility] PATRICIO ERICKSON Nov 14, 2024 PATRICIO MULLIGAN [id number] Dougie RIVERA PATIENT [facility] MEDICAID MEDICAID MEDIC AID Oct 05, 2016 MEDICAI D [id number] NICOLE,Dougie NALLELY PATIENT MEDICAID MEDICAID [facility] Oct 05, 2014 MEDICAI D [id number] Dougie RIVERA NALLELY PATIENT MEDICARE (WNR) MEDICARE (M) PART A May 05, 2018 PART A [id number] Dougie RIVERA PATIENT MEDICARE (WNR) MEDICARE (M) PART B May 05, 2018 PART B [id number] Dougie RIVERA PATIENT Selected Encounter This section includes the information on record at [place] for the Encounter. Date/Time Encounter Type Encounter Description Reason Pro vider Source Mar 08, 2024 09:00 AM Outpatient Encounter PRIMARY CARE/MEDICINE IHE Encounter Template Text not used by [place] Plan of Treatment: Future Appointments (+ 6 months) and Future Tests (+/- 45 days) The Plan of Treatment section includes future care activities for the patient from all [place] treatmentfaunc health lenoirities. This section includes future appointments and future orders which are active, pending or scheduled. Future Appointments This section includes appointments that were scheduled to occur 6 months from the date of the Encounter, up to a maximum of 20 appointments. The data comes from all [place] treatment facilities. Appointment Date/Time Appointment Type Appointme nt Facility Name Mar 11, 2024 02:00 PM AMBULATORY [facility] MEDICINE [facility] Mar 15, 2024 09:00 AM [facility] MEDICINE [facility] Mar 16, 2024 09:00 AM AMBULATORY - MEDICINE [facility] Mar 16, 2024 11:00 AM [facility]ATORY - MEDICINE [facility] Mar 22, 2024 09:00 AM [facility]ATORY - MEDICINE [facility] Mar 24, 2024 09:00 AM AMBULATORY - MEDICINE [facility] Mar 31, 2024 10:00 AM AMBULATORY - NONE [facility] [place] [facility] Apr 05, 2024 10:00 AM [facility] Apr 05, 2024 01:30 PM [facility] Apr 19, 2024 10:30 AM [facility]ULATORY - MEDICINE [facility] Apr 26, 2024 10:00 AM [facility] Apr 27, 2024 10:30 AM [facility]ULATORY - MEDICINE [facility] May 03, 2024 09:00 AM [facility] May 10, 2024 01:00 PM AMBULATORY - MEDICINE [facility] May 20, 2024 09:00 AM [facility] May 31, 2024 03:30 PM AMBULATORY - MEDICINE [facility] Jun 14, 2024 03:30 PM AMBULATORY [facility] MEDICINE [facility] Jun 23, 2024 09:00 AM AMBULATORY - MEDICINE [facility] [facility] Jul 05, 2024 03:30 PM AMBULATORY - MEDICINE [facility] Jul 15, 2024 11:30 AM AMBULATORY - MEDICINE [facility] Active, Pending, and Scheduled Orders This section includes a listing of several types of active, pending, and scheduled orders, including clinic medications orders, diagnostic test orders, procedure orders and consult orders; where the start date of the order is 45 days before the date of the Encounter or 45 days after the date of theEncounter. The data comes from all [place] treatment facilities. Test Date/Time Test Type Test Details Facility Name February 22, 2024 12:00 AM Laboratory - Chemi dorethay Order HEMOGLOBIN A1C PANEL BLOOD (LAV-BLOOD) [facility] Lab Results: +/- 30 days of [...] Unit Interpretation Reference Range Specimen Type Comment Apr 05, 2024 08:13 AM [facility] VITAMIN D (25-OH) SERUM Specimen Type: SERUM No comment entered. Ordering Provider: ALFREDO SANDERS Report Released Date/Time: Jan 19, 2024 04:58 PM Reporting Lab: [address] [address] Performing Lab: [address] [address] VITAMIN D (25-OH) 43 ng/mL 20-50 Apr 05, 2024 08:13 AM [facility] MICROALBUMIN CREATININE RATIO PANEL URINE Spe cimen Type: URINE No comment entered. Ordering Provider: ALFREDO SANDERS Report Released Date/Time: Jan 19, 2024 04:58 PM Reporting Lab: [address] [address] Performing Lab: [address] [address] MICROALBUMIN/CREATININE RATIO 70.7 mg/g H 0-29.9 MICROALBUMIN,QUANTITATIVE 11.0 mg/dL RR UNAVAIL CREATININE URINE 155.54 mg/dL Apr 05, 2024 08:13 AM [facility] FERRITIN SERUM Specimen Type: SERUM No comment entered. Ordering Provider: ALFREDO SANDERS Report Released Date/Time: Jan 19, 2024 04:58 PM Reporting Lab: [facility] [address] [facility] [address] Performing Lab: [address] [address] FERRITIN 33 ng/mL 20-300 Apr 05, 2024 08:13 AM [facility] IRON & TIBC PANEL SERUM Specimen Type: SERUM No comment entered. Ordering Provider: ALFREDO SANDERS Report Released Date/Time: Jan 19, 2024 04:58 PM Reporting Lab: [facility] [address] [facility] [address] Performing Lab: [facility] [address] [facility] [address] [address] TIBC 494 ug/dL H 204-475 IRON 110 ug/dL 40-160 Transferrin Saturation 22.3 20.0-50.0 Apr 05, 2024 08:13 AM [facility] BASIC METABOLIC PANEL (non-fasting) SERUM Spe cimen Type: SERUM No comment entered. Ordering Provider: ALFREDO SANDERS Report Released Date/Time: Jan 19, 2024 04:58 PM Reporting Lab: [facility] [address] [facility] [address] Performing Lab: [address] [address] UREA NITROGEN 14 mg/dL 7-25 GLUCOSE 128 mg/dL H 65-100 SODIUM 138 mmol/L 135-145 POTASSIUM 4.5 mmol/L 3.5-5.0 CHLORIDE 103 mmol/L 100-110 CO2 24 meq/L 20-30 CREATININE, Serum 1.35 mg/dL 0.50-1.40 eGFR(CKD-EPI 2020) 59 mL/min L >60 Apr 05, 2024 08:13 AM [facility] CBC BLOOD Specimen Type: BLOOD No comment entered. Ordering Provider: ALFREDO SANDERS Report Released Date/Time: Jan 19, 2024 04:58 PM Reporting Lab: [facility] [address] [address] Performing Lab[facility] [address] [facility] [address] [address] WBC 8.57 10*3/uL 4.50-11.00 RBC 5.34 10*6/uL 4.23-5.66 HGB 16.0 g/dL 12.8-17 HCT 46.1 39.2-50.4 MCV 86.3 fL 82-99 MCHC 34.7 g/dL 30.8-35.1 PLT 278 10*3/uL 140-360 RDW-CV 12.6 12.0-16.0 MCH 30.0 pg 26.2-32.6 February 23, 2024 09:10 AM [facility] FERRITIN SERUM Sp ecimen Type: SERUM No comment entered. Ordering Provider: AUSTIN BALDWIN Report Released Date/Time: Dec 22, 2023 10:15 AM Reporting Lab: [facility] [address] [facility] [address] Performing Lab: [address] [address] FERRITIN 46 ng/mL 20-300 February 23, 2024 09:10 AM [facility] MICROALBUMIN CREATININE RATIO PANEL URINE Specimen Type: URINE No comment entered. Ordering Provider: AUSTIN BALDWIN Report Released Date/Time: Dec 22, 2023 10:15 AM Reporting Lab: [facility] [address] [facility] [address] Performing Lab: [address] [address] MICROALBUMIN/CREATININE RATIO 22.3 mg/g 0-29.9 MICROALBUMIN,QUANTITATIVE 2.5 mg/dL RR U NAVAIL CREATININE URINE 112.32 mg/dL February 23, 2024 09:10 AM [facility] URIC ACID SERUM Sp ecimen Type: SERUM No comment entered. Ordering Provider: AUSTIN BALDWIN Report Released Date/Time: Dec 22, 2023 10:15 AM Reporting [facility]: [facility] [address] [address] Performing Lab: [facility] [address] [address] URIC ACID 4.8 mg/dL 3.5-7.2 February 23, 2024 09:10 AM [facility] [place] [facility] HEMOGLOBIN A1C PANEL BLOOD Specimen T ype: BLOOD Comment: Values obtained from A1C measurements can vary. For atypical A1C assays, a reported value of 7.0 could actually be between 6.72 and 7.28 if measured by a reference method. A reported value of 9.0 could actually be between 8.73 and 9.27. Ref: http://www.ngsp.org/CAPdata.asp Ordering Provider: AUSTIN BALDWIN Report Released Date/Time: Dec 22, 2023 10:15 AM Reporting Lab: [facility] [address] [address] Performing Lab: [facility] [address] [address] HEMOGLOBIN A1C 6.4 H 4.0-5.6 February 23, 2024 09:10 AM [facility] PSA SERUM Sp ecimen Type: SERUM No comment entered. Ordering Provider: AUSTIN BALDWIN Report Released Date/Time: Dec 22, 2023 10:15 AM Reporting Lab: [facility] [address] [address] Performing Lab: [facility] [address] [address] PSA 0.63 ng/mL 0.00-4.00 February 23, 2024 09:10 AM [facility] [place] [facility] TSH SERUM Sp ecimen Type: SERUM No comment entered. Ordering Provider: AUSTIN BALDWIN Report Released Date/Time: Dec 22, 2023 10:15 AM Reporting Lab: [facility] [address] [address] Performing Lab: [facility] [address] [address] TSH 1.89 u[IU]/mL 0.35-5.00 February 23, 2024 09:10 AM [facility] [place] [facility] BASIC METABOLIC PANEL (fasting) SERUM Specimen Type: SERUM No comment entered. Ordering Provider: AUSTIN BALDWIN Report Released Date/Time: Dec 22, 2023 10:15 AM Reporting Lab: [address] [address] Performing Lab: [address] [address] UREA NITROGEN 11 mg/dL 7-25 GLUCOSE 122 mg/dL H 65-100 SODIUM 140 mmol/L 135-145 POTASSIUM 4.4 mmol/L 3.5-5.0 CHLORIDE 107 mmol/L 100-110 CO2 24 meq/L 20-30 CREATININE, Serum 1.14 mg/dL 0.50-1.40 eGFR(CKD-EPI 2020) 72 mL/min >60 February 23, 2024 09:10 AM [facility] CBC AND DIFF (AUTO) BLOOD Specimen Ty pe: BLOOD No comment entered. Ordering Provider: AUSTIN BALDWIN Report Released Date/Time: Dec 22, 2023 10:15 AM Reporting Lab: [address] [address] Performing Lab: [address] [address] WBC 9.84 10*3/uL 4.50-11.00 RBC 4.93 10*6/uL 4.23-5.66 HGB 15.0 g/dL 12.8-17 HCT 43.5 39.2-50.4 MCV 88.2 fL 82-99 MCHC 34.5 g/dL 30.8-35.1 PLT 254 10*3/uL 140-360 RDW-CV 13.0 12.0-16.0 Arroyo, Abs 0.84 10*3/uL 0.30-1.10 MCH 30.4 pg 26.2-32.6 Neut % 69.6 43.7-75.8 Lymph % 18.7 14.0-42.3 Arroyo % 8.5 5.1-13.7 Eos % 1.7 0.4-6.8 Baso % 0.9 0.1-2.0 Neut, Abs 6.84 10*3/uL 2.20-7.60 Lymph, Abs 1.84 10*3/uL 1.00-3.20 Eos, Abs 0.17 10*3/uL 0.03-0.44 Baso, Abs 0.09 10*3/uL 0.01-0.13 Immature Gran % 0.6 0.0-0.7 Immature Gran, Abs 0.06 10*3/uL 0.00-0.0 6 February 23, 2024 09:10 AM [facility] URINALYSIS URINE S pecimen Type: URINE Comment: If Glucose = >500 and Ketones are positive, please alert the Physician. Ordering Provider: AUSTIN BALDWIN Report Released Date/Time: Dec 22, 2023 10:15 AM Reporting Lab: [address] [address] Performing Lab: [address] [address] UA COLOR Light-Yellow Yellow UA APPEARANCE Clear Clear UA GLUCOSE NEGATIVE mg/dL Negative UA KETONES NEGATIVE mg/dL Negative UA BLOOD NEGATIVE mg/dL Negative UA PROTEIN NEGATIVE mg/dL Negative UA NITRITE NEGATIVE mg/dL Negative UA BILIRUBIN NEGATIVE mg/dL Negative UA SPECIFIC GRAVITY 1.019 1.016-1.022 UA pH 6.5 5.0-9.0 UA UROBILINOGEN <2.0 mg/dL <2.0 UA LEUKOCYTE NEGATIVE Negative February 23, 2024 09:10 AM [facility] [place] [facility] LIVER FUNCTION SERUM Specimen Type: SERUM No comment entered. Ordering Provider: AUSTIN BALDWIN Report Released Date/Time: Dec 22, 2023 10:15 AM Reporting Lab: [address] [address] Performing Lab: [address] [address] PROTEIN,TOTAL 6.3 g/dL 6.0-8.3 ALBUMIN 3.7 g/dL 3.5-5.0 ALKALINE PHOSPHATASE 29 U/L L 40-150 AST 45 U/L H 5-34 ALT 54 U/L BILIRUBIN, TOTAL 0.3 mg/dL 0.2-1.2 February 23, 2024 09:10 AM [facility] LIPID PANEL FASTING SERUM Specimen Ty pe: SERUM No comment entered. Ordering Provider: AUSTIN BALDWIN Report Released Date/Time: Dec 22, 2023 10:15 AM Reporting Lab: [address] [address] Performing Lab: [address] [address] CHOLESTEROL 145 mg/dL TRIGLYCERIDE 241 mg/dL H 0-150 LDL calculated 59 mg/dL 0-129 CHOL/HDL 3.8 HDL CHOLESTEROL 38 mg/dL L 40-60 February 23, 2024 09:08 AM [facility] CREATININE (eGFR 2020) SERUM Specimen Type: SERUM Comment: *LIPID PANEL FASTING Not Performed: February 23, 2024@09:18 by [id number] *GOVERNMENT OPERATIONS CONSULTANT Reason: duplicate Ordering Provider: SWAPNIL SCHOFIELD Report Released Date/Time: Feb 01, 2024 01:14 PM Reporting Lab: [address] [address] Performing Lab: [address] [address] CREATININE, Serum 1.13 mg/dL 0.50-1.40 eGFR(CKD-EPI 2020) 73 mL/min >60 Social History: Smoking Status (Most current) and [...] Michela seals Dec 16, 2023 10:00 AM AR-TOBACCO USER EVERY DAY [facility] Tobacco Use History This section includes a history of the smoking, or tobacco-related health factors, that were collected on or before the date of the Encounter. The data comes from the [place] facility where the Encounter took place. Date/Time Smoking Status/Tobacco Use Comment F acility Dec 16, 2023 10:00 AM VA-TOBACCO USE > 1 5 LESS THAN 30 YEARS [facility] Dec 16, 2023 10:00 AM VA-TOBACCO USE 30 YEARS OR MORE [facility] Dec 16, 2023 10:00 AM VA-TOBACCO USE ADVICE [facility] Dec 16, 2023 10:00 AM VA-TOBACCO USE DRILLER MULTIPLE SPINDLE NO [facility] Dec 16, 2023 10:00 AM VA-TOBACCO USE DRILLER MULTIPLE SPINDLE YES [facility] Dec 16, 2023 10:00 AM VA-TOBACCO USE MED NO [facility] Dec 16, 2023 10:00 AM VA-TOBACCO USE MED YES [facility] Dec 16, 2023 10:00 AM VA-TOBACCO USE WI 30 MIN OF WAKEUP [facility] Dec 16, 2023 10:00 AM VA-TOBACCO USER EVERY DAY [facility] Jan 13, 2023 02:00 PM VA-TOBACCO USE 1 T O < 5 YEARS [facility] Jan 13, 2023 02:00 PM VA-TOBACCO USE ADVICE [facility] Jan 13, 2023 02:00 PM VA-TOBACCO USE DRILLER MULTIPLE SPINDLE NO [facility] Jan 13, 2023 02:00 PM VA-TOBACCO USE MED NO [facility] Jan 13, 2023 02:00 PM VA-TOBACCO USE WI 30 MIN OF WAKEUP [facility] Jan 13, 2023 02:00 PM VA-TOBACCO USER EVERY DAY [facility] Jul 03, 2022 09:00 AM VA-TOBACCO FORMER USER [facility] Jul 03, 2022 09:00 AM VA-TOBACCO QUIT 5 TO < 15 YRS [facility] Jul 04, 2021 09:00 AM VA-TOBACCO USE > 1 5 LESS THAN 30 YEARS [facility] Jul 04, 2021 09:00 AM VA-TOBACCO USE ADVICE [facility] Jul 04, 2021 09:00 AM VA-TOBACCO USE DRILLER MULTIPLE SPINDLE NO [facility] Jul 04, 2021 09:00 AM VA-TOBACCO USE MED NO [facility] Jul 04, 2021 09:00 AM VA-TOBACCO USE WI 30 MIN OF WAKEUP [facility] Jul 04, 2021 09:00 AM VA-TOBACCO USER SOME DAYS [facility] Apr 30, 2020 10:39 AM VA-TOBACCO FORMER USER [facility] Apr 30, 2020 10:39 AM VA-TOBACCO QUIT 5 TO < 15 YRS [facility] Dec 21, 2018 03:15 PM VA-TOBACCO FORMER USER [facility] Dec 21, 2018 03:15 PM VA-TOBACCO QUIT 1 TO < 5 YRS [facility] Nov 24, 2017 09:54 AM CURRENT SMOKER cigarets [facility] Nov 24, 2017 09:54 AM V1-PT READY TO SHARAN T TOBACCO USE [facility] Mar 25, 2017 01:57 PM CURRENT SMOKER down to 10 cigarettes daily [facility] Mar 25, 2017 01:57 PM V1-PT DECLINES TOB ACCO CESSATION MEDS [facility] Mar 25, 2017 01:57 PM V1-PT READY TO SHARAN T TOBACCO USE [facility] March 04, 2017 02:38 PM CURRENT SMOKER advise stopm [facility] Jul 22, 2016 09:29 AM V1-PT NOT INTEREST ED IN QUIT TOBACCO USE [facility] Nov 21, 2015 09:21 AM CURRENT SMOKER half a pack a day [facility] Nov 21, 2015 09:21 AM V1-PT NOT INTEREST ED IN QUIT TOBACCO USE [facility] Nov 23, 2014 08:51 AM CURRENT SMOKER [facility] Nov 23, 2014 08:51 AM V1-PT READY TO SHARAN T TOBACCO USE [facility] Dec 16, 2013 02:19 PM CURRENT SMOKER 3/4 pack a day [facility] Dec 16, 2013 02:19 PM V1-PT THINKING ABO UT QUIT TOBACCO USE [facility] Advance Directives: All historical and current Section [...] the Encounter. Date/Time Encounter Note(s) Provider Source Mar 08, 2024 02:02 PM ADDENDUM: LOCAL TITLE: Addendum STANDARD TITLE: ADDENDUM DATE OF NOTE: MAR 08, 2024@14:02:19 ENTRY DATE: MAR 08, 2024@14:02:20 AUTHOR: LUCINA LUGO EXP COSIGNER: URGENCY: STATUS: COMPLETED alerting AMSA to please NO SHOW and see new RTC /es/ Lucina Lugo, PhD Clinical Psychologist Signed: 03/08/2024 14:02 Receipt Acknowledged By: 03/08/2024 14:26 /karlene/ JERAMY MASON Advanced Turkey Farmer --- Original Document --- 03/08/24 APPOINTMENT NO SHOW: Patient Name: ANGELA RIVERA Patient SSN: [id number] Date and time of Appointment No show : 03/08/24 09:00 PATIENT PHONE - PHONE NUMBER [CELLULAR] - Patient's medical record was reviewed. Follow-up actions were determined and initiated: Please check/complete as applies: [X]Telephoned Directly [X]Re-scheduled for next available appt [ ]Sent a N0-show letter ( must call for appointment) [ ]Other (Emergent/Overbook, etc.): Additional Comments: Called and spoke to who noted his scheduled ride service was late this morning and he was still stuck in traffic. We rescheduled for 03/15 at 9 am via F2F. Clinician offered to meet via C or do a check-in phone session later this week as Vernon's tobacco quit date is on 03/14. Vernon declined to meet virtually and shared he would call this information writer if he needed support. *Alerting AMSA: Please see new RTC, thanks! Future Clinic Visits 03/08/2024 09:30 CWM/SO/PHARM/PACT 1 03/16/2024 11:00 CWM/SO/PACT 3 WH 03/24/2024 09:00 CWM/NO/ACUPUNCTURE R2 04/19/2024 10:30 CWM/NO/NEPHROLOGY/PROV 04/27/2024 10:30 CWM/NO/ACUPUNCTURE R1 05/03/2024 09:00 CWM/SO/PODIATRY/ROSS 05/05/2024 08:30 CWM/NO/ACUPUNCTURE R1 07/22/2024 09:00 NHM/OPTOMETRY/MATHEUS /karleen/ JESSE CRUZ MA [employer] Signed: 03/08/2024 09:19 /karlene/ Lucina Lugo, PhD Clinical Psychologist Cosigned: 03/08/2024 14:02 Receipt Acknowledged By: 03/08/2024 14:22 /es/ JERAMY MASON Advanced Turkey Farmer LUCINA LUGO [facility] Mar 08, 2024 09:15 AM CLERICAL NOTE: LOCAL TITLE: APPOINTMENT NO SHOW STANDARD TITLE: CLERICAL NOTE DATE OF NOTE: MAR 08, 2024@09:15 ENTRY DATE: MAR 08, 2024@09:15:53 AUTHOR: JESSE CRUZ COSIGNER: LUCINA LUGO URGENCY: STATUS: COMPLETED APPOINTMENT NO SHOW Has ADDENDA Patient Name: ANGELA RIVERA Patient SSN: [id number] Date and time of Appointment No show : 03/08/24 09:00 PATIENT PHONE - PHONE NUMBER [CELLULAR] - Patient's medical record was reviewed. Follow-up actions were determined and initiated: Please check/complete as applies: [X]Telephoned Directly [X]Re-scheduled for next available appt [ ]Sent a N0-show letter ( must call for appointment) [ ]Other (Emergent/Overbook, etc.): Additional Comments: Called and spoke to Vernon who noted his scheduled ride service was late this morning and he was still stuck in traffic. We rescheduled for 03/15 at 9 am via F2F. Clinician offered to meet via VVC or do a check-in phone session later this week as Vernon's tobacco quit date is on 03/14. Vernon declined to meet virtually and shared he would call this information writer if he needed support. *Alerting AMSA: Please see new RTC, thanks! Future Clinic Visits 03/08/2024 09:30 CWM/SO/PHARM/PACT 1 03/16/2024 11:00 CWM/SO/PACT 3 WH 03/24/2024 09:00 CWM/NO/ACUPUNCTURE R2 04/19/2024 10:30 CWM/NO/NEPHROLOGY/PROV 04/27/2024 10:30 CWM/NO/ACUPUNCTURE R1 05/03/2024 09:00 CWM/SO/PODIATRY/ROSS 05/05/2024 08:30 CWM/NO/ACUPUNCTURE R1 07/22/2024 09:00 NHM/OPTOMETRY/DARSHANASKI /es/ JESSE CRUZ MA [employer] Signed: 03/08/2024 09:19 /es/ Lucina Lugo, PhD Clinical Psychologist Cosigned: 03/08/2024 14:02 Receipt Acknowledged By: 03/08/2024 14:22 /karlene/ JERAMY MASON Advanced [employer] Farmer 03/08/2024 ADDENDUM STATUS: COMPLETED alerting AMSA to please NO SHOW and see new RTC /es/ Lucina Lugo, PhD Clinical Psychologist Signed: 03/08/2024 14:02 Receipt Acknowledged By: * AWAITING SIGNATURE * JERAMY MASON AADILA J [place]
--- OUTSIDE RECORDS SUMMARY | 2025-02-01 16:04 | XMS_ITS | Encounter Summary ---
Author Name [facility] [facility] [place] Address [address] [place] [address] Care Team Providers Care Billing Clerk Name Role Phone AUSTIN BALDWIN Primary Care Provider [facility] Insurance Providers: All historical and current [...] Relationship to Policy Lomas PATRICIO MULLIGAN-WN R DE SPECIAL CLASS PATRICIO ERICKSON Nov 14, 2024 PATRICIO MULLIGAN [id number] Dougie IRVERA PATIENT [facility] MEDICAID MEDICAID MEDIC AID Oct 05, 2016 MEDICAI D [id number] NICOLE,A NALLELY PATIENT MEDICAID MEDICAID [facility]RICE Oct 05, 2014 MEDICAI D [id number] Dougie RIVERA NALLELY PATIENT MEDICARE (WNR) MEDICARE (M) PART A May 05, 2018 PART A [id number] [facility] Dougie RIVERA NALLELY PATIENT MEDICARE (WNR) MEDICARE (M) PART B May 05, 2018 PART B [id number] [facility] [phone] [id number] Dougie RIVERA PATIENT Selected Encounter This [...] 2 diabetes mellitus without complications SWAPNIL NEWMAN RICHARDS Plan of Treatment: Future Appointments (+ 6 months) and Future Tests (+/- 45 days) The Plan of Treatment section includes future care activities for the patient [facility] [place] [facility]. This section includes future appointments and future [...] - MEDICINE [place] [facility] [facility] [place] [facility] Oct 18, 2024 08:30 AM AMBULATORY - MEDICINE [place] [facility] [place] [facility] Nov 07, 2024 01:15 PM AMBULATORY - MEDICINE [place] [facility] Nov 08, 2024 10:00 AM AMBULATORY - MEDICINE [place] [facility] Nov 15, 2024 08:30 AM AMBULATORY - MEDICINE [facility] Dec 05, 2024 02:15 PM AMBULATORY - MEDICINE [place] [facility] Dec 08, 2024 09:00 AM AMBULATORY - MEDICINE [place] [facility] [place] [facility] Dec 19, 2024 09:30 AM AMBULATORY - MEDICINE [facility] Dec 19, 2024 10:00 AM AMBULATORY - MEDICINE [facility] Dec 28, 2024 03:00 PM AMBULATORY - MEDICINE [place] [facility] Jan 09, 2025 01:30 PM AMBULATORY - MEDICINE [place] [facility] Jan 12, 2025 09:00 AM AMBULATORY - MEDICINE [facility] Jan 26, 2025 09:30 AM AMBULATORY - MEDICINE [place] [facility] February 08, 2025 01:00 PM AMBULATORY - MEDICINE [place] [facility] February 13, 2025 01:00 PM AMBULATORY - MEDICINE [place] Mar 14, 2025 08:30 AM AMBULATORY - MEDICINE [place] [facility] Mar 14, 2025 09:00 AM [facility]ULAT[facility] Lab Results: +/- 30 days of the encounter This section includes the Chemistry and Hematology Lab Results on record with [place] for the patient. Radiology Reports and Pathology Reports are provided separately, in subsequent sections. Lab Results This section contains the Chemistry/Hematology Results that were resulted 30 days before or 30 daysafter the date of the Encounter. Date/Time Source Result Type Result - Unit Interpretation Reference Range Specimen Type Comment Sep 20, 2024 09:25 AM [facility] MICROALBUMIN CREATININE RATIO PANEL URINE Spe cimen Type: URINE No comment entered. Ordering Provider: TAMI SANDERS Report Released Date/Time: Apr 19, 2024 10:52 AM Reporting Lab: [facility] [place] [facility] [address] [address] Performing Lab: [facility] [place] [facility] [address] [facility] [address] MICROALBUMIN/CREATININE RATIO 12.4 mg/g 0-29.9 MICROALBUMIN,QUANTITATIVE 2.3 mg/dL RR U NAVAIL CREATININE URINE 186.00 mg/dL Sep 20, 2024 09:25 AM [facility] FERRITIN SERUM Specimen Type: SERUM No comment entered. Ordering Provider: ALFREDO SANDERS Report Released Date/Time: Apr 19, 2024 10:52 AM Reporting Lab: [facility] [place] [facility] [address] [facility] [address] Performing Lab: [facility] [place] [facility] [address] [facility] [address] FERRITIN 248 ng/mL 20-300 Sep 20, 2024 09:25 AM [facility] BASIC METABOLIC PANEL (non-fasting) SERUM Spe cimen Type: SERUM No comment entered. Ordering Provider: ALFREDO SANDERS Report Released Date/Time: Apr 19, 2024 10:52 AM Reporting Lab: [facility] [address] [address] Performing Lab: [facility] [address] [address] UREA NITROGEN 7 mg/dL 7-25 GLUCOSE 115 mg/dL H 65-100 SODIUM 140 mmol/L 135-145 POTASSIUM 4.1 mmol/L 3.5-5.0 CHLORIDE 107 mmol/L 100-110 CO2 22 meq/L 20-30 CREATININE, Serum 1.07 mg/dL 0.50-1.40 eGFR(CKD-EPI 2020) 78 mL/min >60 Sep 20, 2024 09:25 AM [facility] IRON & TIBC PANEL SERUM Specimen Type: SERUM No comment entered. Ordering Provider: ALFREDO SANDERS Report Released Date/Time: Apr 19, 2024 10:52 AM Reporting Lab: [address] [address] Performing Lab: [address] [address] TIBC 352 ug/dL 204-475 IRON 60 ug/dL 40-160 Transferrin Saturation 17.0 L 20.0-50.0 Transferrin (TRF) 267 mg/dL 200-360 Sep 20, 2024 09:25 AM [facility] CBC BLOOD Specimen Type: BLOOD No comment entered. Ordering Provider: ALFREDO SANDERS Report Released Date/Time: Apr 19, 2024 10:52 AM Reporting Lab: [facility] [address] [address] Performing Lab: [address] [address] WBC 7.98 10*3/uL 4.50-11.00 RBC 4.46 10*6/uL 4.23-5.66 HGB 13.1 g/dL 12.8-17 HCT 37.7 L 39.2-50.4 MCV 84.5 fL 82-99 MCHC 34.7 g/dL 30.8-35.1 PLT 280 10*3/uL 140-360 RDW-CV 13.9 12.0-16.0 MCH 29.4 pg 26.2-32.6 Sep 19, 2024 08:34 AM [facility] HEMOGLOBIN A1C PANEL BLOOD Specimen Type: BLO [...] Jul 29, 2024 03:01 PM Reporting Lab: [address] [address] Performing Lab: [address] [address] HEMOGLOBIN A1C 5.7 H 4.0-5.6 Sep 19, 2024 08:34 AM [facility] CREATININE (eGFR 2020) SERUM Specimen Type: S CRYSTAL No comment entered. Ordering Provider: SWAPNIL NEWMAN Report Released Date/Time: Jul 29, 2024 03:01 PM Reporting Lab: [address] [address] Performing Lab: [address] [address] CREATININE, Serum 1.12 mg/dL 0.50-1.40 eGFR(CKD-EPI 2020) 74 mL/min >60 Sep 13, 2024 07:33 AM [facility] CREATININE (eGFR 2020) SERUM Specimen Type: S CRYSTAL No comment entered. Ordering Provider: SWAPNIL NEWMAN Report Released Date/Time: Sep 07, 2024 03:50 PM Reporting Lab: [address] [address] Performing Lab: [address] [address] CREATININE, Serum 1.10 mg/dL 0.50-1.40 eGFR(CKD-EPI 2020) 75 mL/min >60 Sep 13, 2024 07:33 AM [facility] HEMOGLOBIN A1C PANEL BLOOD Specimen Type: BLO [...] Sep 07, 2024 03:50 PM Reporting Lab: [address] [address] Performing Lab: [address] [address] HEMOGLOBIN A1C 5.8 H 4.0-5.6 Sep 13, 2024 07:33 AM [facility] LIPID PANEL FASTING SERUM Specimen Type: SERU M No comment entered. Ordering Provider: SWAPNIL NEWMAN Report Released Date/Time: Sep 07, 2024 03:50 PM Reporting Lab: [address] [address] Performing Lab: [address] [address] CHOLESTEROL 154 mg/dL TRIGLYCERIDE 248 mg/dL H [...] 98 76 121/81 18 99 220 34 [place] Sep 20, 2024 09:37 AM 221.8 34 [place] Social History: Smoking Status (Most current) [...] 2023 10:00 AM VA-TOBACCO USER EVERY DAY R[facility] Tobacco Use History This section includes a history of the smoking, or tobacco-related health factors, that were collected on or before the date of the Encounter. The data comes from the [place] facility where the Encounter took place. Date/Time Smoking Status/Tobacco Use Comment F acility Dec 16, 2023 10:00 AM VA-TOBACCO USE > 1 5 LESS THAN 30 YEARS [facility] Dec 16, 2023 10:00 AM VA-TOBACCO USE 30 YEARS OR MORE [facility] Dec 16, 2023 10:00 AM VA-TOBACCO USE ADVICE [facility] Dec 16, 2023 10:00 AM VA-TOBACCO USE HEAD BUTLER NO [facility] Dec 16, 2023 10:00 AM VA-TOBACCO USE HEAD BUTLER YES [facility] Dec 16, 2023 10:00 AM VA-TOBACCO USE MED NO [facility] Dec 16, 2023 10:00 AM VA-TOBACCO USE MED YES [facility] Dec 16, 2023 10:00 AM VA-TOBACCO USE WI 30 MIN OF WAKEUP R[facility]AR[facility] Dec 16, 2023 10:00 AM VA-TOBACCO USER EVERY DAY [facility] Jan 13, 2023 02:00 PM VA-TOBACCO USE 1 T O < 5 YEARS [facility] Jan 13, 2023 02:00 PM VA-TOBACCO USE ADVICE [facility] Jan 13, 2023 02:00 PM VA-TOBACCO USE HEAD BUTLER NO [facility] Jan 13, 2023 02:00 PM VA-TOBACCO USE MED NO [facility] Jan 13, 2023 02:00 PM VA-TOBACCO USE WI 30 MIN OF WAKEUP R[facility] Jan 13, 2023 02:00 PM VA-TOBACCO USER EVERY DAY [facility] Jul 03, 2022 09:00 AM VA-TOBACCO FORMER USER [facility] Jul 03, 2022 09:00 AM VA-TOBACCO QUIT 5 TO < 15 YRS [facility] Jul 04, 2021 09:00 AM VA-TOBACCO USE > 1 5 LESS THAN 30 YEARS [facility] Jul 04, 2021 09:00 AM VA-TOBACCO USE ADVICE [facility] Jul 04, 2021 09:00 AM VA-TOBACCO USE HEAD BUTLER NO [facility] Jul 04, 2021 09:00 AM VA-TOBACCO USE MED NO [facility] Jul 04, 2021 09:00 AM VA-TOBACCO USE WI 30 MIN OF WAKEUP R[facility] Jul 04, 2021 09:00 AM VA-TOBACCO USER SOME DAYS [facility] Apr 30, 2020 10:39 AM VA-TOBACCO FORMER USER [facility] Apr 30, 2020 10:39 AM VA-TOBACCO QUIT 5 TO < 15 YRS [facility] Dec 21, 2018 03:15 PM VA-TOBACCO FORMER USER [facility] Dec 21, 2018 03:15 PM VA-TOBACCO QUIT 1 TO < 5 YRS [facility] Nov 24, 2017 09:54 AM CURRENT SMOKER cigarets [facility] Nov 24, 2017 09:54 AM V1-PT READY TO SHARAN T TOBACCO USE [facility] Mar 25, 2017 01:57 PM CURRENT SMOKER down to 10 cigarettes daily R[facility] Mar 25, 2017 01:57 PM V1-PT DECLINES TOB ACCO CESSATION MEDS [facility] Mar 25, 2017 01:57 PM V1-PT READY TO SHARAN T TOBACCO USE [facility] March 04, 2017 02:38 PM CURRENT SMOKER advise stopm [facility] Jul 22, 2016 09:29 AM V1-PT NOT INTEREST ED IN QUIT TOBACCO USE [facility] Nov 21, 2015 09:21 AM CURRENT SMOKER half a pack a day [facility] Nov 21, 2015 09:21 AM V1-PT NOT INTEREST ED IN QUIT TOBACCO USE [facility] Nov 23, 2014 08:51 AM CURRENT SMOKER [facility] Nov 23, 2014 08:51 AM V1-PT READY TO SHARAN T TOBACCO USE [facility] Dec 16, 2013 02:19 PM CURRENT SMOKER 3/4 pack a day R[facility]AR[facility] Dec 16, 2013 02:19 PM V1-PT THINKING ABO UT QUIT TOBACCO USE [facility] Advance Directives: All historical and current Section Date Range: From patient's date of to the date document was created. This section includes ALL of a patient's completed or amended [place] Advance and Rescinded Directives. The entries below [...] NEWMAN COSIGNER: URGENCY: STATUS: COMPLETED Will ask butcher fish to please notify pt that labwork has been ordered for collection prior to visit. Thank you. 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 Followed closely by MH and f/u with tobacco cessation clinic. 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 A course of therapy with varenicline [...] ideation). Counseled extensively. Patient has access to [facility] and states he would go to the hospital as needed. He is followed closely by Dr. Wallace Stephens. Clinic's Next Scheduled Follow-up: 10-12 weeks HTN: at goal; DAMARI-I changed to CCB d/t rise in SCr; f/u nephrology ASCVD: not on statin; on fenofibrate; defer to PCP/review at f/u Microalb: 218.7 H mg/G (01/2024) History of Preventive Care: Most recent visit to fan runner: 01/2024 Most recent visit to optometry: 07/2023; [...] DATE: SEP 20, 2024@09:32:41 AUTHOR: SWAPNIL NEWMAN EXP COSIGNER: URGENCY: STATUS: COMPLETED PHARMACY CLINIC NOTE Has ADDENDA Known Allergies: CODEINE, OXYCODONE ANGELA RIVERA contacted for diabetes management. Subjective: [place] referred to pharmacy clinic by PCP. 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 A course of therapy with varenicline [...] ideation). Counseled extensively. Patient has access to [facility] Crisis Line and states he would go to the hospital as needed. He is followed closely by Dr. Wallace Stephens. Clinic's Next Scheduled Follow-up: 10-12 weeks HTN: at goal; DAMARI-I changed to CCB d/t rise in SCr; f/u nephrology ASCVD: not on statin; on fenofibrate; defer to PCP/review at f/u Microalb: 218.7 H mg/G (01/2024) History of Preventive Care: Most recent visit to fan runner: 01/2024 Most recent visit to optometry: 07/2023; [...] 09:56 12/14/2024 ADDENDUM STATUS: COMPLETED Will ask butcher fish to please notify pt that labwork has been ordered for collection prior to visit. Thank you. /jaya Newman PharmD Clinical Pharmacy Practitioner Signed: 12/14/2024 14:29 Receipt Acknowledged By: 12/14/2024 15:37 /jaya VERDUZCO Clinical Chief Technology Officer 12/14/2024 ADDENDUM STATUS: COMPLETED called patient to let him know that labs have been ordered /jaya VERDUZCO Clinical Chief Technology Officer Signed: 12/14/2024 15:38 SWAPNIL NEWMAN
--- OUTSIDE RECORDS SUMMARY | 2025-02-01 16:04 | XMS_ITS | Encounter Summary ---
Author Name [facility] [facility] [place] [facility] Address [address] [place] [address] Care Team Providers Care Borough Coordinator Name Role Phone AUSTIN BALDWIN [facility] Insurance Providers: All historical and [...] PATRICIO ERICKSON Nov 14, 2024 PATRICIO MULLIGAN [id number] Dougie RIVERA PATIENT [facility] MEDICAID MEDICAID MEDIC AID Oct 05, 2016 MEDICAI D [id number] NICOLE,A NALLELY PATIENT MEDICAID MEDICAID [facility] Oct 05, 2014 MEDICAI D [id number] Dougie RIVERA NALLELY PATIENT MEDICARE ([place]NR) MEDICARE (M) PART A May 05, 2018 PART A [id number] [facility] Dougie RIVERA NALLELY PATIENT MEDICARE (WNR) MEDICARE (M) PART B May 05, 2018 PART B [id number] [facility] Dougie RIVERA PATIENT Selected Encounter This section includes the information on record at [place] for the Encounter. Date/Time Encounter Type Encounter Description Reason Provider Source May 20, 2024 09:00 AM MTMS BY ANJALI SNEED 15 MIN CLINICAL PHARMACY ICD-10-CM E11.9 Type 2 diabetes mellitus without complications SWAPNIL NEWMAN Nancy Encounter Template Text not used by [place] Assessments - Encounter Diagnoses This section includes the primary and secondary diagnoses documented for the Encounter. Date/Time Primary/Secondary Diagnosis Diagnosis Name Provider Source May 20, 2024 09:18 AM PRIMARY Type 2 diabetes mellitus without complications SWAPNIL NEWMAN [place] Plan of Treatment: Future Appointments (+ 6 months) and Future Tests (+/- 45 days) The Plan of Treatment section includes future care activities for the [facility] [place] [facility]. This section includes future appointments and future orders which are active, pending or scheduled. Future Appointments This section includes appointments that were scheduled to occur 6 months from the date of the Encounter, up to a maximum of 20 appointments. The data comes from all [place] treatment facilities. Appointment Date/Time Appointment Type Appointme nt Facility Name May 31, 2024 03:30 PM [place] [facility] Jun 14, 2024 03:30 PM AM[place]ULATORY [place] [facility] Jun 23, 2024 09:00 AM AMBULATORY [place] MEDICINE [facility] Jul 05, 2024 03:30 PM [facility] Jul 15, 2024 11:30 AM [facility] Jul 25, 2024 09:30 AM [facility]ORY [facility]ICINE [facility] Jul 25, 2024 10:00 AM AM[facility]ULATORY [facility] MEDICINE [facility] Jul 25, 2024 11:00 AM AM[facility]ULATORY [facility] MEDICINE [facility] Jul 28, 2024 09:30 AM [facility] Jul 28, 2024 10:00 AM [facility] Jul 29, 2024 03:00 PM AM[facility]ULATORY [facility]ICINE [facility] Aug 03, 2024 03:30 PM AM[facility]ULATORY [place] [facility]ICINE [facility] Aug 05, 2024 08:30 AM AM[facility]ULATORY [facility] MEDICINE [facility] Aug 11, 2024 08:30 AM AM[facility]ULATORY [facility] MEDICINE [facility] Aug 25, 2024 09:00 AM AMBULATORY - MEDICINE [facility] Sep 07, 2024 10:00 AM AMBULATORY - MEDICINE [facility] Sep 07, 2024 03:00 PM AMBULATORY - MEDICINE [facility] Sep 12, 2024 09:00 AM [facility] Sep 15, 2024 08:45 AM AMBULATORY - MEDICINE [facility] Sep 20, 2024 09:30 AM [facility] - MEDICINE [facility] Vital Signs: All taken on the encounter date This section contains inpatient and outpatient Vital Signs collected on the date of the Encounter. Date/Time Temperature Pulse Blood Pressure Respiratory Rate SP02 Pain Height Weight Body Mass Index Source May 20, 2024 09:00 AM 243 37 [facility] [place] Social History: Smoking Status (Most [...] place. Date/Time Current Smoking Status Comment Facil [facility] Dec 16, 2023 10:00 AM VA-TOBACCO USER EVERY DAY [facility] Tobacco Use History This section includes a history of the smoking, or tobacco-related health factors, that were collected on or before the date of the Encounter. The data comes from the [place] facility where the Encounter took place. Date/Time Smoking Status/Tobacco Use Comment F acility Dec 16, 2023 10:00 AM VA-TOBACCO USE > 1 5 LESS THAN 30 YEARS [facility] Dec 16, 2023 10:00 AM VA-TOBACCO USE 30 YEARS OR MORE [facility] Dec 16, 2023 10:00 AM VA-TOBACCO USE ADVICE [facility] Dec 16, 2023 10:00 AM VA-TOBACCO USE PHOTOGRAPHIC INTELLIGENCE OFFICER NO [facility] Dec 16, 2023 10:00 AM VA-TOBACCO USE PHOTOGRAPHIC INTELLIGENCE OFFICER YES [facility] Dec 16, 2023 10:00 AM VA-TOBACCO USE MED NO [facility] Dec 16, 2023 10:00 AM VA-TOBACCO USE MED YES [facility] Dec 16, 2023 10:00 AM VA-TO[place]ACCO USE [place] 30 MIN OF [facility] Dec 16, 2023 10:00 AM VA-TOBACCO USER EVERY DAY [place] Jan 13, 2023 02:00 PM VA-TOBACCO USE 1 T O < 5 YEARS [facility] Jan 13, 2023 02:00 PM VA-TOBACCO USE ADVICE [facility] Jan 13, 2023 02:00 PM VA-TOBACCO USE PHOTOGRAPHIC INTELLIGENCE OFFICER NO [facility] Jan 13, 2023 02:00 PM VA-TOBACCO USE MED NO [place] Jan 13, 2023 02:00 PM VA-TOBACCO USE [place] 30 MIN OF [facility] Jan 13, 2023 02:00 PM VA-TOBACCO USER EVERY DAY [facility] Jul 03, 2022 09:00 AM VA-TOBACCO FORMER USER [facility] Jul 03, 2022 09:00 AM VA-TOBACCO QUIT 5 TO < 15 YRS [facility] Jul 04, 2021 09:00 AM VA-TOBACCO USE > 1 5 LESS THAN 30 YEARS [facility] Jul 04, 2021 09:00 AM VA-TOBACCO USE ADVICE [facility] Jul 04, 2021 09:00 AM VA-TOBACCO USE PHOTOGRAPHIC INTELLIGENCE OFFICER NO [facility] Jul 04, 2021 09:00 AM VA-TOBACCO USE MED NO [place] Jul 04, 2021 09:00 AM VA-TOBACCO USE [place] 30 MIN OF [facility] Jul 04, 2021 09:00 AM VA-TOBACCO USER SOME DAYS [facility] Apr 30, 2020 10:39 AM VA-TOBACCO FORMER USER [facility] Apr 30, 2020 10:39 AM VA-TOBACCO QUIT 5 TO < 15 YRS [facility] Dec 21, 2018 03:15 PM VA-TOBACCO FORMER USER [facility] Dec 21, 2018 03:15 PM VA-TOBACCO QUIT 1 TO < 5 YRS [facility] Nov 24, 2017 09:54 AM CURRENT SMOKER cigarets [facility] Nov 24, 2017 09:54 AM V1-PT READY TO SHARAN T TOBACCO USE [facility] Mar 25, 2017 01:57 PM CURRENT SMOKER down to 10 cigarettes daily [facility] Mar 25, 2017 01:57 PM V1-PT DECLINES TOB ACCO CESSATION [facility] Mar 25, 2017 01:57 PM V1-PT READY TO SHARAN T TOBACCO USE [facility] March 04, 2017 02:38 PM CURRENT SMOKER advise stopm [facility] Jul 22, 2016 09:29 AM V1-PT NOT INTEREST ED IN QUIT TOBACCO USE [facility] Nov 21, 2015 09:21 AM CURRENT SMOKER half a pack a day [facility] Nov 21, 2015 09:21 AM V1-PT NOT INTEREST ED IN QUIT TOBACCO USE [facility] Nov 23, 2014 08:51 AM CURRENT SMOKER [facility] Nov 23, 2014 08:51 AM V1-PT READY TO SHARAN T TOBACCO USE [place] Dec 16, 2013 02:19 PM CURRENT SMOKER 3/4 pack a day [facility] Dec 16, 2013 02:19 PM V1-PT THINKING ABO UT QUIT TOBACCO USE [facility] Advance Directives: All historical and current Section [...] Provider Source Dec 12, 2014 ADVANCE DIRECTIVE NORMAKATRINJAROCHO Conner Encounter Notes: All associated encounter notes This section contains the clinical notes associated to the Encounter. Date/Time Encounter Note(s) Provider Source Jul 20, 2024 10:21 AM ADDENDUM: LOCAL TITLE: Addendum STANDARD TITLE: ADDENDUM DATE OF NOTE: JUL 20, 2024@10:21:44 ENTRY DATE: JUL 20, 2024@10:21:45 AUTHOR: SWAPNIL NEWMAN COSIGNER: URGENCY: STATUS: COMPLETED called back to r/s pharmacy visit. Will ask sales driver to please call back and r/s from no-show. Pt states he was in the hospital. Thank you! /karlene/ Swapnil Newman PharmD Clinical Pharmacy Practitioner Signed: 07/20/2024 10:22 Receipt Acknowledged By: 07/20/2024 11:42 /karlene/ KYLE VERDUZCO Clinical Human Resources Analyst == --- Original Document --- 05/20/24 PHARMACY CLINIC NOTE: Known Allergies: CODEINE, OXYCODONE ANGELA Loi RIVERA presented for diabetes management treatment. Subjective: referred to pharmacy clinic by PCP. [...] consult, I also did nephro consult . presents to clinic today for follow-up. At time of last visit, semaglutide was titrated. He notes he is doing well; has not noted any effects with it and denies any ADRs as well. As noted previously, LSMs have lead to 15lb weight loss; cut out sugar, more water. Pt was also started on varenicline. Denies any ADRs. No changes in behavior. Has been on it since ~03/20/24 and on dose of 1mg BID. He has cut down from 15 cigg to 10cigg to 5 cigg/day and now 3 cigg/day on occassion. Followed by tobacco cessation clinic. States he will be saving $300/month in cigarettes; has his sister withdraw this into savings account so he does not have it. He notes when he has a craving for cigg it's usually d/t stress or anxiety. He is seeing a therapist regularly. Target Goals: A1C: 7%; FB-110 mg/dl Objective: Diabetes Medication Regimen: semaglutide 0.5mg once weekly (completed #3 doses) Adherence: N/A HEMOGLOBIN A1C TREND Collection DT Spec HGBA1c 02/23/2024 09:11 BLOOD 6.4 H 11/25/2023 07:00 BLOOD 6.6 H 04/14/2023 08:41 BLOOD 6.0 H 09/12/2022 07:32 BLOOD 5.8 H 03/06/2022 08:08 BLOOD 5.9 H LIPID PANEL TREND Collection DT Spec CHOL HDL CHO/HDL LDL-d LDL-c TRIG 02/23/2024 09:11 SERUM 145 38 L 3.8 59 241 H 01/04/2024 08:57 SERUM 166 31 L 5.4 92 Reflex to dLDL 510 H 11/27/2023 10:19 SERUM 179 33 L 5.4 96 251 H 04/14/2023 08:41 SERUM 167 31 L 5.4 99 Reflex to dLDL 421 H 09/12/2022 07:32 SERUM 196 37 L 5.3 121 192 H CREATININE-EGFR 02/23/24 09:11 1.14 02/23/24 09:08 1.13 01/04/24 08:57 1.38 WT: 238 lb [107.95 kg] (04/19/2024 10:48) Patient self-monitoring of blood glucose: Health-Tarik: At home : Patient self-monitors blood glucose 1-2x/week and reports the following (mg/dl): 01/04/24 Last SMBG ~1 week ago; ~106mg/dL. 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 Reports BG readings ~104mg/dL; none >150mg/dL. 03/08/24 Difficulty with SMBG; not SMBG recently. 04/05/24 BG ~100mg/dL. 05/20/24 Reports BG ~106mg/dL. Patient eats on avg. 2-3x day: Diet Patterns: B: eggs + toast or Ensure or skips L: sandwich or prepared meals at SO D: varies; [facility] provides meals Snacks: ice-cream on occassion Drinks: diet/sugar free Dejesus, Gatorade zero, water (will be getting a Alissa), coffee (with cream and milk) Exercise: Walks every day (5000-10,000 steps/day) HYPOGLYCEMIC Events: 0 in the last 2 weeks Hypoglycemia recognition & treatment reviewed: Yes EtOH/Illicit drugs: Alcohol: denies Tobacco: 1/2ppd; quit x 17 years, when not able to see granddtr anymore, resumed smoking (quit for her); interested in tobacco cessation referral Other: marijuana Other: Denies personal or fhx thyroid cancer or MENS2 Denies personal hx pancreatitis 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 A1c and BG at goal. Will titrate semaglutide for weight loss benefits. Encouraged to continue with LSMs. SGLT-2 inhibitor [...] Diabetes (Goal A1c<7%, FBG 90-110mg/dL, 2hPP<180mg/dL): - INCREASE semaglutide 1mg once weekly after one more week of 0.5mg - SMBG 2x/week - Monitor for s/sx hypoglycemia and contact clinic if BG consistently < 70mg/dL - Healthy dietary lifestyle modifications encouraged - Repeat A1c: prior to f/u Tobacco Cessation: Previous report of cessation but will have 3 cigg/day on occassion d/t stress. Reviewed other strategies for managing stress (i.e. meditation, which he finds helpful); he agrees to try these. Also suggested he not purchase cigg; then whe will not have any accessible. He is also followed by . Tolerating therapy without ADRs. Followed closely by and f/u with tobacco cessation clinic. Continue varenicline 1mg BID. Considerations: Initial duration of therapy is 12 weeks with a target quit date within the first 7 days of exposure to varenicline. If the patient stops smoking by week 12, an additional 12 weeks of therapy may increase the likelihood of terminal carman abstinence. A course of therapy with varenicline [...] Dr. Wallace Stephens. Clinic's Next Scheduled Follow-up: ~8 weeks HTN: at goal; DAMARI-I changed to CCB d/t rise in SCr; f/u nephrology ASCVD: not on statin; on fenofibrate; defer to PCP/review at f/u Microalb: 218.7 H mg/G (01/2024) History of Preventive Care: Most recent visit to returned goods receiving clerk: 01/2024 Most recent visit to optometry: 07/2023; T2 Diabetes without retinopathy or macular edema OU Time Spent: 30 minutes PBM PharmD Pharmacotherapy Rem V12: PHARMACIST INTERVENTIONS: TYPE 2 DIABETES MELLITUS Medication Intervention(s) OBESITY/WEIGHT MANAGEMENT Medication Intervention(s) Adjust dose or frequency of current medication TOBACCO USE DISORDER Medication monitoring, no dosage change required, continue to monitor and assess Medication reconciliation (changes to active VA and non-VA medication lists to reconcile differences) Changes to medication lists made Update dose, frequency, duration and/or dosage form of medication /jaya Newman PharmD Clinical Pharmacy Practitioner Signed: 05/20/2024 09:18 05/20/2024 ADDENDUM STATUS: COMPLETED Alert to Dr. Hammond as FYI. /jaya Newman PharmD Clinical Pharmacy Practitioner Signed: 05/20/2024 09:18 05/20/2024 ADDENDUM STATUS: COMPLETED Alert to Dr. Hammond as FYI: Tobacco Cessation: Previous report of cessation but will have 3 cigg/day on occassion d/t stress. Reviewed other strategies for managing stress (i.e. meditation, which he finds helpful); he agrees to try these. Also suggested he not purchase cigg; then whe will not have any accessible. He is also followed by . Tolerating therapy without ADRs. Followed closely by [facility] and f/u with tobacco cessation clinic. Continue varenicline 1mg BID. /jaya Newman PharmD Clinical Pharmacy Practitioner Signed: 05/20/2024 09:19 Receipt Acknowledged By: 05/24/2024 10:42 /karlene/ Derek Hammond, PhD Clinical Psychologist 07/15/2024 ADDENDUM STATUS: COMPLETED no-show to pharmacy visit today. Will ask MSA to please no-show and r/s. Thank you! /jaya Newman PharmD Clinical Pharmacy Practitioner Signed: 07/15/2024 11:40 Receipt Acknowledged By: 07/15/2024 12:24 /jaya VERDUZCO Clinical Human Resources Analyst 07/15/2024 ADDENDUM STATUS: COMPLETED called patient, left VM to please call back to reschedule appt. /jaya VERDUZCO Clinical Human Resources Analyst Signed: 07/15/2024 12:26 SWAPNIL NEWMAN Jul 15, 2024 11:40 AM ADDENDUM: LOCAL TITLE: Addendum STANDARD TITLE: ADDENDUM DATE OF NOTE: JUL 15, 2024@11:40:37 ENTRY DATE: JUL 15, 2024@11:40:38 AUTHOR: SWAPNIL NEWMAN COSIGNER: URGENCY: STATUS: COMPLETED no-show to pharmacy visit today. Will ask MSA to please no-show and r/s. Thank you! /jaya Newman PharmD Clinical Pharmacy Practitioner Signed: 07/15/2024 11:40 Receipt Acknowledged By: 07/15/2024 12:24 /karlene/ KYLE VERDUZCO Clinical Human Resources Analyst == --- Original Document --- 05/20/24 PHARMACY CLINIC NOTE: Known Allergies: CODEINE, OXYCODONE ANGELA RIVERA presented for diabetes management treatment. Subjective: [place] referred to pharmacy clinic by PCP. Per [...] consult, I also did nephro consult . presents to clinic today for follow-up. At time of last visit, semaglutide was titrated. He notes he is doing well; has not noted any effects with it and denies any ADRs as well. As noted previously, LSMs have lead to 15lb weight loss; cut out sugar, more water. Pt was also started on varenicline. Denies any ADRs. No changes in behavior. Has been on it since ~03/20/24 and on dose of 1mg BID. He has cut down from 15 cigg to 10cigg to 5 cigg/day and now 3 cigg/day on occassion. Followed by tobacco cessation clinic. States he will be saving $300/month in cigarettes; has his sister withdraw this into savings account so he does not have it. He notes when he has a craving for cigg it's usually d/t stress or anxiety. He is seeing a therapist regularly. Target Goals: A1C: 7%; FB-110 mg/dl Objective: Diabetes Medication Regimen: semaglutide 0.5mg once weekly (completed #3 doses) Adherence: N/A HEMOGLOBIN A1C TREND Collection DT Spec HGBA1c 02/23/2024 09:11 BLOOD 6.4 H 11/25/2023 07:00 BLOOD 6.6 H 04/14/2023 08:41 BLOOD 6.0 H 09/12/2022 07:32 BLOOD 5.8 H 03/06/2022 08:08 BLOOD 5.9 H LIPID PANEL TREND Collection DT Spec CHOL HDL CHO/HDL LDL-d LDL-c TRIG 02/23/2024 09:11 SERUM 145 38 L 3.8 59 241 H 01/04/2024 08:57 SERUM 166 31 L 5.4 92 Reflex to dLDL 510 H 11/27/2023 10:19 SERUM 179 33 L 5.4 96 251 H 04/14/2023 08:41 SERUM 167 31 L 5.4 99 Reflex to dLDL 421 H 09/12/2022 07:32 SERUM 196 37 L 5.3 121 192 H CREATININE-EGFR 02/23/24 09:11 1.14 02/23/24 09:08 1.13 01/04/24 08:57 1.38 WT: 238 lb [107.95 kg] (04/19/2024 10:48) Patient self-monitoring of blood glucose: Health-Tarik: At home : Patient self-monitors blood glucose 1-2x/week and reports the following (mg/dl): 01/04/24 Last SMBG ~1 week ago; ~106mg/dL. 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 Reports BG readings ~104mg/dL; none >150mg/dL. 03/08/24 Difficulty with SMBG; not SMBG recently. 04/05/24 BG ~100mg/dL. 05/20/24 Reports BG ~106mg/dL. Patient eats on avg. 2-3x day: Diet Patterns: B: eggs + toast or Ensure or skips L: sandwich or prepared meals at SO D: varies; [facility] provides meals Snacks: ice-cream on occassion Drinks: diet/sugar free Dejesus, Gatorade zero, water (will be getting a Alissa), coffee (with cream and milk) Exercise: Walks every day (5000-10,000 steps/day) HYPOGLYCEMIC Events: 0 in the last 2 weeks Hypoglycemia recognition & treatment reviewed: Yes EtOH/Illicit drugs: Alcohol: denies Tobacco: 1/2ppd; quit x 17 years, when not able to see granddtr anymore, resumed smoking (quit for her); interested in tobacco cessation referral Other: marijuana Other: Denies personal or fhx thyroid cancer or MENS2 Denies personal hx pancreatitis 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 A1c and BG at goal. Will titrate semaglutide for weight loss benefits. Encouraged to continue with LSMs. SGLT-2 inhibitor [...] Diabetes (Goal A1c<7%, FBG 90-110mg/dL, 2hPP<180mg/dL): - INCREASE semaglutide 1mg once weekly after one more week of 0.5mg - SMBG 2x/week - Monitor for s/sx hypoglycemia and contact clinic if BG consistently < 70mg/dL - Healthy dietary lifestyle modifications encouraged - Repeat A1c: prior to f/u Tobacco Cessation: Previous report of cessation but will have 3 cigg/day on occassion d/t stress. Reviewed other strategies for managing stress (i.e. meditation, which he finds helpful); he agrees to try these. Also suggested he not purchase cigg; then whe will not have any accessible. He is also followed by . Tolerating therapy without ADRs. Followed closely by and f/u with tobacco cessation clinic. Continue varenicline 1mg BID. Considerations: Initial duration of therapy is 12 weeks with a target quit date within the first 7 days of exposure to varenicline. If the patient stops smoking by week 12, an additional 12 weeks of therapy may increase the likelihood of terminal carman abstinence. A course of therapy with varenicline [...] ideation). Counseled extensively. Patient has access to [facility] and states he would go to the hospital as needed. He is followed closely by Dr. Wallace Stephens. Clinic's Next Scheduled Follow-up: ~8 weeks HTN: at goal; DAMARI-I changed to CCB d/t rise in SCr; f/u nephrology ASCVD: not on statin; on fenofibrate; defer to PCP/review at f/u Microalb: 218.7 H mg/G (01/2024) History of Preventive Care: Most recent visit to returned goods receiving clerk: 01/2024 Most recent visit to optometry: 07/2023; T2 Diabetes without retinopathy or macular edema OU Time Spent: 30 minutes PBM PharmD Pharmacotherapy Rem V12: PHARMACIST INTERVENTIONS: TYPE 2 DIABETES MELLITUS Medication Intervention(s) OBESITY/WEIGHT MANAGEMENT Medication Intervention(s) Adjust dose or frequency of current medication TOBACCO USE DISORDER Medication monitoring, no dosage change required, continue to monitor and assess Medication reconciliation (changes to active VA and non-VA medication lists to reconcile differences) Changes to medication lists made Update dose, frequency, duration and/or dosage form of medication /karlene/ Swapnil Newman PharmD Clinical Pharmacy Practitioner Signed: 05/20/2024 09:18 05/20/2024 ADDENDUM STATUS: COMPLETED Alert to Dr. Hammond as FYI. /jaya Newman PharmD Clinical Pharmacy Practitioner Signed: 05/20/2024 09:18 05/20/2024 ADDENDUM STATUS: COMPLETED Alert to Dr. Hammond as FYI: Tobacco Cessation: Previous report of cessation but will have 3 cigg/day on occassion d/t stress. Reviewed other strategies for managing stress (i.e. meditation, which he finds helpful); he agrees to try these. Also suggested he not purchase cigg; then whe will not have any accessible. He is also followed by . Tolerating therapy without ADRs. Followed closely by MH and f/u with tobacco cessation clinic. Continue varenicline 1mg BID. /jaya Newman PharmD Clinical Pharmacy Practitioner Signed: 05/20/2024 09:19 Receipt Acknowledged By: 05/24/2024 10:42 /es/ Derek Hammond, PhD Clinical Psychologist SWAPNIL NEWMAN May 20, 2024 09:19 AM ADDENDUM: LOCAL TITLE: Addendum STANDARD TITLE: ADDENDUM DATE OF NOTE: MAY 20, 2024@09:19:02 ENTRY DATE: MAY 20, 2024@09:19:03 AUTHOR: SWAPNIL NEWMAN EXP COSIGNER: URGENCY: STATUS: COMPLETED Alert to Dr. Hammond as FYI: Tobacco Cessation: Previous report of cessation but will have 3 cigg/day on occassion d/t stress. Reviewed other strategies for managing stress (i.e. meditation, which he finds helpful); he agrees to try these. Also suggested he not purchase cigg; then whe will not have any accessible. He is also followed by . Tolerating therapy without ADRs. Followed closely by and f/u with tobacco cessation clinic. Continue varenicline 1mg BID. /karlene/ Swapnil Newman PharmD Clinical Pharmacy Practitioner Signed: 05/20/2024 09:19 Receipt Acknowledged By: 05/24/2024 10:42 /es/ Derek Hammond, PhD Clinical Psychologist == --- Original Document --- 05/20/24 PHARMACY CLINIC NOTE: Known Allergies: CODEINE, OXYCODONE ANGELA RIVERA presented for diabetes management treatment. Subjective: referred to pharmacy clinic by PCP. [...] consult, I also did nephro consult . [place] presents to clinic today for follow-up. At time of last visit, semaglutide was titrated. He notes he is doing well; has not noted any effects with it and denies any ADRs as well. As noted previously, LSMs have lead to 15lb weight loss; cut out sugar, more water. Pt was also started on varenicline. Denies any ADRs. No changes in behavior. Has been on it since ~03/20/24 and on dose of 1mg BID. He has cut down from 15 cigg to 10cigg to 5 cigg/day and now 3 cigg/day on occassion. Followed by tobacco cessation clinic. States he will be saving $300/month in cigarettes; has his sister withdraw this into savings account so he does not have it. He notes when he has a craving for cigg it's usually d/t stress or anxiety. He is seeing a therapist regularly. Target Goals: A1C: 7%; FB-110 mg/dl Objective: Diabetes Medication Regimen: semaglutide 0.5mg once weekly (completed #3 doses) Adherence: N/A HEMOGLOBIN A1C TREND Collection DT Spec HGBA1c 02/23/2024 09:11 BLOOD 6.4 H 11/25/2023 07:00 BLOOD 6.6 H 04/14/2023 08:41 BLOOD 6.0 H 09/12/2022 07:32 BLOOD 5.8 H 03/06/2022 08:08 BLOOD 5.9 H LIPID PANEL TREND Collection DT Spec CHOL HDL CHO/HDL LDL-d LDL-c TRIG 02/23/2024 09:11 SERUM 145 38 L 3.8 59 241 H 01/04/2024 08:57 SERUM 166 31 L 5.4 92 Reflex to dLDL 510 H 11/27/2023 10:19 SERUM 179 33 L 5.4 96 251 H 04/14/2023 08:41 SERUM 167 31 L 5.4 99 Reflex to dLDL 421 H 09/12/2022 07:32 SERUM 196 37 L 5.3 121 192 H CREATININE-EGFR 02/23/24 09:11 1.14 02/23/24 09:08 1.13 01/04/24 08:57 1.38 WT: 238 lb [107.95 kg] (04/19/2024 10:48) Patient self-monitoring of blood glucose: [facility]: At home : Patient self-monitors blood glucose 1-2x/week and reports the following (mg/dl): 01/04/24 Last SMBG ~1 week ago; ~106mg/dL. 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 Reports BG readings ~104mg/dL; none >150mg/dL. 03/08/24 Difficulty with SMBG; not SMBG recently. 04/05/24 BG ~100mg/dL. 05/20/24 Reports BG ~106mg/dL. Patient eats on avg. 2-3x day: Diet Patterns: B: eggs + toast or Ensure or skips L: sandwich or prepared meals at SO D: varies; [facility] [employer] provides meals Snacks: ice-cream on occassion Drinks: diet/sugar free Dejesus, Gatorade zero, water (will be getting a Alissa), coffee (with cream and milk) Exercise: Walks every day (5000-10,000 steps/day) HYPOGLYCEMIC Events: 0 in the last 2 weeks Hypoglycemia recognition & treatment reviewed: Yes EtOH/Illicit drugs: Alcohol: denies Tobacco: 1/2ppd; quit x 17 years, when not able to see granddtr anymore, resumed smoking (quit for her); interested in tobacco cessation referral Other: marijuana Other: Denies personal or fhx thyroid cancer or MENS2 Denies personal hx pancreatitis 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 A1c and BG at goal. Will titrate semaglutide for weight loss benefits. Encouraged to continue with LSMs. SGLT-2 inhibitor [...] Diabetes (Goal A1c<7%, FBG 90-110mg/dL, 2hPP<180mg/dL): - INCREASE semaglutide 1mg once weekly after one more week of 0.5mg - SMBG 2x/week - Monitor for s/sx hypoglycemia and contact clinic if BG consistently < 70mg/dL - Healthy dietary lifestyle modifications encouraged - Repeat A1c: prior to f/u Tobacco Cessation: Previous report of cessation but will have 3 cigg/day on occassion d/t stress. Reviewed other strategies for managing stress (i.e. meditation, which he finds helpful); he agrees to try these. Also suggested he not purchase cigg; then whe will not have any accessible. He is also followed by . Tolerating therapy without ADRs. Followed closely by and f/u with tobacco cessation clinic. Continue varenicline 1mg BID. Considerations: Initial duration of therapy is 12 weeks with a target quit date within the first 7 days of exposure to varenicline. If the patient stops smoking by week 12, an additional 12 weeks of therapy may increase the likelihood of alf abstinence. A course of therapy with varenicline [...] ideation). Counseled extensively. Patient has access to [facility] and states he would go to the hospital as needed. He is followed closely by Dr. Wallace Stephens. Clinic's Next Scheduled Follow-up: ~8 weeks HTN: at goal; DAMARI-I changed to CCB d/t rise in SCr; f/u nephrology ASCVD: not on statin; on fenofibrate; defer to PCP/review at f/u Microalb: 218.7 H mg/G (01/2024) History of Preventive Care: Most recent visit to returned goods receiving clerk: 01/2024 Most recent visit to optometry: 07/2023; T2 Diabetes without retinopathy or macular edema OU Time Spent: 30 minutes PBM PharmD Pharmacotherapy Rem V12: PHARMACIST INTERVENTIONS: TYPE 2 DIABETES MELLITUS Medication Intervention(s) OBESITY/WEIGHT MANAGEMENT Medication Intervention(s) Adjust dose or frequency of current medication TOBACCO USE DISORDER Medication monitoring, no dosage change required, continue to monitor and assess Medication reconciliation (changes to active VA and non-VA medication lists to reconcile differences) Changes to medication lists made Update dose, frequency, duration and/or dosage form of medication /karlene/ Swapnil Newman PharmD Clinical Pharmacy Practitioner Signed: 05/20/2024 09:18 05/20/2024 ADDENDUM STATUS: COMPLETED Alert to Dr. Hammond as SANG. /karlene/ Swapnil Newman PharmD Clinical Pharmacy Practitioner Signed: 05/20/2024 09:18 SWAPNIL NEWMAN May 20, 2024 08:57 AM PHARMACY OUTPATIEN T NOTE: LOCAL TITLE: PHARMACY CLINIC NOTE STANDARD TITLE: PHARMACY OUTPATIENT NOTE DATE OF NOTE: MAY 20, 2024@08:57 ENTRY DATE: MAY 20, 2024@08:57:57 AUTHOR: SWAPNIL NEWMAN EXP COSIGNER: URGENCY: STATUS: COMPLETED PHARMACY CLINIC NOTE Has ADDENDA Known Allergies: CODEINE, OXYCODONE ANGELA RIVERA presented for diabetes management treatment. Subjective: referred to pharmacy clinic by PCP. [...] consult, I also did nephro consult . presents to clinic today for follow-up. At time of last visit, semaglutide was titrated. He notes he is doing well; has not noted any effects with it and denies any ADRs as well. As noted previously, LSMs have lead to 15lb weight loss; cut out sugar, more water. Pt was also started on varenicline. Denies any ADRs. No changes in behavior. Has been on it since ~03/20/24 and on dose of 1mg BID. He has cut down from 15 cigg to 10cigg to 5 cigg/day and now 3 cigg/day on occassion. Followed by tobacco cessation clinic. States he will be saving $300/month in cigarettes; has his sister withdraw this into savings account so he does not have it. He notes when he has a craving for cigg it's usually d/t stress or anxiety. He is seeing a therapist regularly. Target Goals: A1C: 7%; FB-110 mg/dl Objective: Diabetes Medication Regimen: semaglutide 0.5mg once weekly (completed #3 doses) Adherence: N/A HEMOGLOBIN A1C TREND Collection DT Spec HGBA1c 02/23/2024 09:11 BLOOD 6.4 H 11/25/2023 07:00 BLOOD 6.6 H 04/14/2023 08:41 BLOOD 6.0 H 09/12/2022 07:32 BLOOD 5.8 H 03/06/2022 08:08 BLOOD 5.9 H LIPID PANEL TREND Collection DT Spec CHOL HDL CHO/HDL LDL-d LDL-c TRIG 02/23/2024 09:11 SERUM 145 38 L 3.8 59 241 H 01/04/2024 08:57 SERUM 166 31 L 5.4 92 Reflex to dLDL 510 H 11/27/2023 10:19 SERUM 179 33 L 5.4 96 251 H 04/14/2023 08:41 SERUM 167 31 L 5.4 99 Reflex to dLDL 421 H 09/12/2022 07:32 SERUM 196 37 L 5.3 121 192 H CREATININE-EGFR 02/23/24 09:11 1.14 02/23/24 09:08 1.13 01/04/24 08:57 1.38 WT: 238 lb [107.95 kg] (04/19/2024 10:48) Patient self-monitoring of blood glucose: [facility]: At home : Patient self-monitors blood glucose 1-2x/week and reports the following (mg/dl): 4/1/24 Last SMBG ~1 week ago; ~106mg/dL. 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 Reports BG readings ~104mg/dL; none >150mg/dL. 03/08/24 Difficulty with SMBG; not SMBG recently. 04/05/24 BG ~100mg/dL. 05/20/24 Reports BG ~106mg/dL. Patient eats on avg. 2-3x day: Diet Patterns: B: eggs + toast or Ensure or skips L: sandwich or prepared meals at SO D: varies; [employer] provides meals Snacks: ice-cream on occassion Drinks: diet/sugar free Dejesus, Gatorade zero, water (will be getting a Alissa), coffee (with cream and milk) Exercise: Walks every day (5000-10,000 steps/day) HYPOGLYCEMIC Events: 0 in the last 2 weeks Hypoglycemia recognition & treatment reviewed: Yes EtOH/Illicit drugs: Alcohol: denies Tobacco: 1/2ppd; quit x 17 years, when not able to see granddtr anymore, resumed smoking (quit for her); interested in tobacco cessation referral Other: marijuana Other: Denies personal or fhx thyroid cancer or MENS2 Denies personal hx pancreatitis 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 A1c and BG at goal. Will titrate semaglutide for weight loss benefits. Encouraged to continue with LSMs. SGLT-2 inhibitor [...] Diabetes (Goal A1c<7%, FBG 90-110mg/dL, 2hPP<180mg/dL): - INCREASE semaglutide 1mg once weekly after one more week of 0.5mg - SMBG 2x/week - Monitor for s/sx hypoglycemia and contact clinic if BG consistently < 70mg/dL - Healthy dietary lifestyle modifications encouraged - Repeat A1c: prior to f/u Tobacco Cessation: Previous report of cessation but will have 3 cigg/day on occassion d/t stress. Reviewed other strategies for managing stress (i.e. meditation, which he finds helpful); he agrees to try these. Also suggested he not purchase cigg; then whe will not have any accessible. He is also followed by . Tolerating therapy without ADRs. Followed closely by and f/u with tobacco cessation clinic. Continue varenicline 1mg BID. Considerations: Initial duration of therapy is 12 weeks with a target quit date within the first 7 days of exposure to varenicline. If the patient stops smoking by week 12, an additional 12 weeks of therapy may increase the likelihood of alf abstinence. A course of therapy with varenicline [...] ideation). Counseled extensively. Patient has access to [facility] and states he would go to the hospital as needed. He is followed closely by Dr. Wallace Stephens. Clinic's Next Scheduled Follow-up: ~8 weeks HTN: at goal; DAMARI-I changed to CCB d/t rise in SCr; f/u nephrology ASCVD: not on statin; on fenofibrate; defer to PCP/review at f/u Microalb: 218.7 H mg/G (01/2024) History of Preventive Care: Most recent visit to returned goods receiving clerk: 01/2024 Most recent visit to optometry: 07/2023; T2 Diabetes without retinopathy or macular edema OU Time Spent: 30 minutes PBM PharmD Pharmacotherapy Rem V12: PHARMACIST INTERVENTIONS: TYPE 2 DIABETES MELLITUS Medication Intervention(s) OBESITY/WEIGHT MANAGEMENT Medication Intervention(s) Adjust dose or frequency of current medication TOBACCO USE DISORDER Medication monitoring, no dosage change required, continue to monitor and assess Medication reconciliation (changes to active VA and non-VA medication lists to reconcile differences) Changes to medication lists made Update dose, frequency, duration and/or dosage form of medication /jaya Newman PharmD Clinical Pharmacy Practitioner Signed: 05/20/2024 09:18 05/20/2024 ADDENDUM STATUS: COMPLETED Alert to Dr. Hammond as FYI. /jaya Newman PharmD Clinical Pharmacy Practitioner Signed: 05/20/2024 09:18 05/20/2024 ADDENDUM STATUS: COMPLETED Alert to Dr. Hammond as FYI: Tobacco Cessation: Previous report of cessation but will have 3 cigg/day on occassion d/t stress. Reviewed other strategies for managing stress (i.e. meditation, which he finds helpful); he agrees to try these. Also suggested he not purchase cigg; then whe will not have any accessible. He is also followed by . Tolerating therapy without ADRs. Followed closely by and f/u with tobacco cessation clinic. Continue varenicline 1mg BID. /jaya Newman PharmD Clinical Pharmacy Practitioner Signed: 05/20/2024 09:19 Receipt Acknowledged By: 05/24/2024 10:42 /karlene/ Derek Hammond, PhD Clinical Psychologist 07/15/2024 ADDENDUM STATUS: COMPLETED no-show to pharmacy visit today. Will ask MSA to please no-show and r/s. Thank you! /jaya Newman PharmD Clinical Pharmacy Practitioner Signed: 07/15/2024 11:40 Receipt Acknowledged By: 07/15/2024 12:24 /jaya VERDUZCO Clinical Human Resources Analyst 07/15/2024 ADDENDUM STATUS: COMPLETED called patient, left VM to please call back to reschedule appt. /jaya VERDUZCO Clinical Human Resources Analyst Signed: 07/15/2024 12:26 07/20/2024 ADDENDUM STATUS: COMPLETED [place] called back to r/s pharmacy visit. Will ask sales driver to please call back and r/s from no-show. Pt states he was in the hospital. Thank you! /jaya Newman PharmD Clinical Pharmacy Practitioner Signed: 07/20/2024 10:22 Receipt Acknowledged By: 07/20/2024 11:42 /jaya VERDUZCO Clinical Human Resources Analyst 07/20/2024 ADDENDUM STATUS: COMPLETED patient is scheduled for in clinic visit 07/29 at 3:00pm /jaya VERDUZCO Clinical Human Resources Analyst Signed: 07/20/2024 11:43 SWAPNIL NEWMAN [place]
--- OUTSIDE RECORDS SUMMARY | 2025-02-01 16:04 | XMS_ITS | Encounter Summary ---
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 Name Role Phone AUSTIN BALDWIN Primary Care Provider [facility] Insurance Providers: All historical and [...] Relationship to Policy Lomas PATRICIO MULLIGAN-WN R ID SPECIAL CLASS PATRICIO ERICKSON Nov 14, 2024 PATRICIO MULLIGAN [id number] Dougie RIVERA PATIENT [facility] MEDICAID MEDICAID MEDIC AID Oct 05, 2016 MEDICAI D [id number] NICOLE,A NALLELY PATIENT MEDICAID MEDICAID [facility] Oct 05, 2014 MEDICAI D [id number] Dougie RIVERA NALLELY PATIENT MEDICARE (WNR) MEDICARE (M) PART A May 05, 2018 PART A [id number] [facility] [phone] [id number] Dougie RIVERA NALLELY PATIENT MEDICARE (WNR) MEDICARE (M) PART B May 05, 2018 PART B [id number] [facility] Dougie RIVERA PATIENT Selected Encounter This section includes the information on record at ID for the Encounter. Date/Time Encounter Type Encounter Description Reason Provider Source February 16, 2024 09:29 AM OFFICE O/P EST MOD 30 MIN PRIMARY CARE/MEDICINE ICD-10-CM I10 Essential (primary) hypertension FREDDIE NEVILLE Nancy Encounter Template Text not used by ID Assessments - Encounter Diagnoses This section includes the primary and secondary diagnoses documented for the Encounter. Date/Time Primary/Secondary Diagnosis Diagnosis Name Provider Source February 16, 2024 10:04 AM PRIMARY Essential (primary) hypertension COLLIN NEVILLE February 16, 2024 10:04 AM SECONDARY Anxiety disorder, unspecified COLLIN NEVILLE February 16, 2024 10:04 AM SECONDARY Panic disorder [episodic paroxysmal anxiety] COLLIN NEVILLE February 16, 2024 10:04 AM SECONDARY Wheezing COLLIN NEVILLE Plan of Treatment: Future Appointments (+ 6 months) and Future Tests (+/- 45 days) The Plan of Treatment section includes future care activities for the patient from all ID treatmentfacilities. This section includes future appointments and future orders which are active, pending or scheduled. Future Appointments This section includes appointments that were scheduled to occur 6 months from the date of the Encounter, up to a maximum of 20 appointments. The data comes from all ID treatment facilities. Appointment Date/Time Appointment Type Appointme nt Facility Name February 23, 2024 09:00 AM AMBULATORY - MEDICINE [facility] March 01, 2024 09:00 AM AMBULATORY - MEDICINE [facility] Mar 08, 2024 09:00 AM AM[facility]ORY - MEDICINE [facility] Mar 08, 2024 09:30 AM [facility] Mar 11, 2024 02:00 PM AMBULATORY - MEDICINE [place] [facility] [place] [facility] Mar 15, 2024 09:00 AM [facility] Mar 16, 2024 09:00 AM AMBULATORY - MEDICINE [facility] [place] [facility] Mar 16, 2024 11:00 AM [facility] Mar 22, 2024 09:00 AM [facility] Mar 24, 2024 09:00 AM AMBULATORY - MEDICINE [facility] [place] [facility] Mar 31, 2024 10:00 AM AMBULATORY - NONE [facility] [place] [facility] Apr 05, 2024 10:00 AM AMBULATORY - MEDICINE [facility] Apr 05, 2024 01:30 PM AMBULATORY - MEDICINE [facility] Apr 19, 2024 10:30 AM AMBULATORY - MEDICINE [facility] [place] [facility] Apr 26, 2024 10:00 AM AMBULATORY - MEDICINE [facility] Apr 27, 2024 10:30 AM AMBULATORY - MEDICINE [facility] [place] [facility] May 03, 2024 09:00 AM AMBULATORY - MEDICINE [facility] May 10, 2024 01:00 PM AMBULATORY - MEDICINE [facility] [place] [facility] May 20, 2024 09:00 AM [facility] May 31, 2024 03:30 PM AMBULATORY - MEDICINE [place] [facility] [place] [facility] Active, Pending, and Scheduled Orders This section includes a listing of several types of active, pending, and scheduled orders, including clinic medications orders, diagnostic test orders, procedure orders and consult orders; where the start date of the order is 45 days before the date of the Encounter or 45 days after the date of theEncounter. The data comes from all ID treatment facilities. Test Date/Time Test Type Test Details Facility Name February 22, 2024 12:00 AM Laboratory - Chemi shaila Order HEMOGLOBIN A1C PANEL BLOOD (LAV-BLOOD) [facility] Lab Results: +/- 30 days of the encounter This section includes the Chemistry and Hematology Lab Results on record with ID for the patient. Radiology Reports and Pathology Reports are provided separately, in subsequent sections. Lab Results This section contains the Chemistry/Hematology Results that were resulted 30 days before or 30 daysafter the date of the Encounter. Date/Time Source Result Type Result - Unit Interpretation Reference Range Specimen Type Comment February 23, 2024 09:10 AM [facility] FERRITIN SERUM Specimen Type: SERUM No comment entered. Ordering Provider: AUSTIN BALDWIN Report Released Date/Time: Dec 22, 2023 10:15 AM [facility] [address] [address] Performing Lab: [address] [address] FERRITIN 46 ng/mL 20-300 February 23, 2024 09:10 AM [place] HEMOGLOBIN A1C PANEL BLOOD Specimen T ype: [...] Dec 22, 2023 10:15 AM Reporting Lab: [facility] [place] [address] [address] Performing [facility]: [facility] [address] HEMOGLOBIN A1C 6.4 H 4.0-5.6 February 23, 2024 09:10 AM [place] URIC ACID SERUM Sp ecimen Type: SERUM No comment entered. Ordering Provider: AUSTIN BALDWIN Report Released Date/Time: Dec 22, 2023 10:15 AM Reporting Lab: [facility] [address] [address] Performing Lab: [facility] [address] URIC ACID 4.8 mg/dL 3.5-7.2 February 23, 2024 09:10 AM [place] MICROALBUMIN CREATININE RATIO PANEL URINE Specimen Type: URINE No comment entered. Ordering Provider: AUSTIN BALDWIN Report Released Date/Time: Dec 22, 2023 10:15 AM Reporting Lab: [facility] [address] [address] Performing Lab: [facility] [address] [address] MICROALBUMIN/CREATININE RATIO 22.3 mg/g 0-29.9 MICROALBUMIN,QUANTITATIVE 2.5 mg/dL RR U NAVAIL CREATININE URINE 112.32 mg/dL February 23, 2024 09:10 AM [place] PSA SERUM Sp ecimen Type: SERUM No comment entered. Ordering Provider: AUSTIN BALDWIN Report Released Date/Time: Dec 22, 2023 10:15 AM Reporting Lab: [facility] [place] [address] [address] Performing Lab: [facility] [address] [address] PSA 0.63 ng/mL 0.00-4.00 February 23, 2024 09:10 AM [place] TSH SERUM Sp ecimen Type: SERUM No comment entered. Ordering Provider: AUSTIN BALDWIN Report Released Date/Time: Dec 22, 2023 10:15 AM Reporting Lab: [facility] [address] [address] Performing Lab: [facility] [address] [address] TSH 1.89 u[IU]/mL 0.35-5.00 February 23, 2024 09:10 AM [place] CBC AND DIFF (AUTO) BLOOD Specimen Ty pe: BLOOD No comment entered. Ordering Provider: AUSTIN BALDWIN Report Released Date/Time: Dec 22, 2023 10:15 AM Reporting Lab: [facility] [address] [address] Performing Lab: [facility] [address] WBC 9.84 10*3/uL 4.50-11.00 RBC 4.93 10*6/uL 4.23-5.66 HGB 15.0 g/dL 12.8-17 HCT 43.5 39.2-50.4 MCV 88.2 fL 82-99 MCHC 34.5 g/dL 30.8-35.1 PLT 254 10*3/uL 140-360 RDW-CV 13.0 12.0-16.0 Wright, Abs 0.84 10*3/uL 0.30-1.10 MCH 30.4 pg 26.2-32.6 Neut % 69.6 43.7-75.8 Lymph % 18.7 14.0-42.3 Wright % 8.5 5.1-13.7 Eos % 1.7 0.4-6.8 Baso % 0.9 0.1-2.0 Neut, Abs 6.84 10*3/uL 2.20-7.60 Lymph, Abs 1.84 10*3/uL 1.00-3.20 Eos, Abs 0.17 10*3/uL 0.03-0.44 Baso, Abs 0.09 10*3/uL 0.01-0.13 Immature Gran % 0.6 0.0-0.7 Immature Gran, Abs 0.06 10*3/uL 0.00-0.0 6 February 23, 2024 09:10 AM [place] LIVER FUNCTION SERUM Specimen Type: SERUM No comment entered. Ordering Provider: AUSTIN BALDWIN Report Released Date/Time: Dec 22, 2023 10:15 AM Reporting Lab: [address] [address] Performing Lab: [address] [address] PROTEIN,TOTAL 6.3 g/dL 6.0-8.3 ALBUMIN 3.7 g/dL 3.5-5.0 ALKALINE PHOSPHATASE 29 U/L L 40-150 AST 45 U/L H 5-34 ALT 54 U/L BILIRUBIN, TOTAL 0.3 mg/dL 0.2-1.2 February 23, 2024 09:10 AM [place] LIPID PANEL FASTING SERUM Specimen Ty pe: SERUM No comment entered. Ordering Provider: AUSTIN BALDWIN Report Released Date/Time: Dec 22, 2023 10:15 AM Reporting Lab: [address] [address] Performing Lab: [address] [address] CHOLESTEROL 145 mg/dL TRIGLYCERIDE 241 mg/dL H 0-150 LDL calculated 59 mg/dL 0-129 CHOL/HDL 3.8 HDL CHOLESTEROL 38 mg/dL L 40-60 February 23, 2024 09:10 AM [facility] URINALYSIS URINE S pecimen Type: URINE Comment: If Glucose = >500 and Ketones are positive, please alert the Physician. Ordering Provider: AUSTIN BALDWIN Report Released Date/Time: Dec 22, 2023 10:15 AM Reporting Lab: [address] [address] Performing Lab: [address] [address] UA COLOR Light-Yellow Yellow UA APPEARANCE Clear Clear UA GLUCOSE NEGATIVE mg/dL Negative UA KETONES NEGATIVE mg/dL Negative UA BLOOD NEGATIVE mg/dL Negative UA PROTEIN NEGATIVE mg/dL Negative UA NITRITE NEGATIVE mg/dL Negative UA BILIRUBIN NEGATIVE mg/dL Negative UA SPECIFIC GRAVITY 1.019 1.016-1.022 UA pH 6.5 5.0-9.0 UA UROBILINOGEN <2.0 mg/dL <2.0 UA LEUKOCYTE NEGATIVE Negative February 23, 2024 09:10 AM [place] BASIC METABOLIC PANEL (fasting) SERUM Specimen Type: SERUM No comment entered. Ordering Provider: AUSTIN BALDWIN Report Released Date/Time: Dec 22, 2023 10:15 AM Reporting Lab: [address] [address] Performing Lab: [address] [address] UREA NITROGEN 11 mg/dL 7-25 GLUCOSE 122 mg/dL H 65-100 SODIUM 140 mmol/L 135-145 POTASSIUM 4.4 mmol/L 3.5-5.0 CHLORIDE 107 mmol/L 100-110 CO2 24 meq/L 20-30 CREATININE, Serum 1.14 mg/dL 0.50-1.40 eGFR(CKD-EPI 2020) 72 mL/min >60 February 23, 2024 09:08 AM [place] CREATININE (eGFR 2020) SERUM Specimen Type: SERUM Comment: *LIPID PANEL FASTING Not Performed: February 23, 2024@09:18 by [id number] *STUDIO OWNER Reason: duplicate Ordering Provider: SWAPNIL SCHOFIELD Report Released Date/Time: Feb 01, 2024 01:14 PM Reporting Lab: [address] [address] Performing Lab: [address] [address] CREATININE, Serum 1.13 mg/dL 0.50-1.40 eGFR(CKD-EPI 2020) 73 mL/min >60 Vital Signs: All taken on the encounter date This section contains inpatient and outpatient Vital Signs collected on the date of the Encounter. Date/Time Temperature Pulse Blood Pressure Respiratory Rate SP02 Pain Height Weight Body Mass Index Source February 16, 2024 09:16 AM 98 76 186/112 20 94 1 [place] Social History: Smoking Status (Most current) and Tobacco Use (All prior to encounter date) This section includes the most current, and the historical, smoking and tobacco- related health factors from the ID facility where the Encounter took place. Current Smoking Status This section includes the most current smoking, or tobacco-related health factor, from the ID facility where the Encounter took place. Date/Time Current Smoking Status Comment Facil arnel Dec 16, 2023 10:00 AM VA-TOBACCO USER EVERY DAY [facility] Tobacco Use History This section includes a history of the smoking, or tobacco-related health factors, that were collected on or before the date of the Encounter. The data comes from the ID facility where the Encounter took place. 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 SEED PRODUCTION YES [facility] Dec 16, 2023 10:00 AM VA-TOBACCO USE MED NO [facility] Dec 16, 2023 10:00 AM VA-TOBACCO USE MED YES [facility] Dec 16, 2023 10:00 AM VA-TOBACCO USE WI 30 MIN OF WAKEUP [facility] Dec 16, 2023 10:00 AM VA-TOBACCO USER EVERY DAY [facility] Jan 13, 2023 02:00 PM VA-TOBACCO USE 1 T O < 5 YEARS [facility] Jan 13, 2023 02:00 PM VA-TOBACCO USE ADVICE [facility] Jan 13, 2023 02:00 PM 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 [facility] Jan 13, 2023 02:00 PM VA-TOBACCO USE MED NO [facility] Jan 13, 2023 02:00 PM VA-TOBACCO USE WI 30 MIN OF WAKEUP [facility] Jan 13, 2023 02:00 PM VA-TOBACCO USER EVERY DAY [facility] Jul 03, 2022 09:00 AM VA-TOBACCO FORMER USER [facility] Jul 03, 2022 09:00 AM VA-TOBACCO QUIT 5 TO < 15 YRS [facility] Jul 04, 2021 09:00 AM VA-TOBACCO USE > 1 5 LESS THAN 30 YEARS [facility] Jul 04, 2021 09:00 AM VA-TOBACCO USE ADVICE [facility] Jul 04, 2021 09:00 AM 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 [facility] Jul 04, 2021 09:00 AM VA-TOBACCO USE MED NO [facility] Jul 04, 2021 09:00 AM VA-TOBACCO USE WI 30 MIN OF WAKEUP [facility] Jul 04, 2021 09:00 AM VA-TOBACCO USER SOME DAYS [facility] Apr 30, 2020 10:39 AM VA-TOBACCO FORMER USER [facility] Apr 30, 2020 10:39 AM VA-TOBACCO QUIT 5 TO < 15 YRS [facility] Dec 21, 2018 03:15 PM VA-TOBACCO FORMER USER [facility] Dec 21, 2018 03:15 PM VA-TOBACCO QUIT 1 TO < 5 YRS [facility] Nov 24, 2017 09:54 AM CURRENT SMOKER cigarets [facility] Nov 24, 2017 09:54 AM V1-PT READY TO SHARAN T TOBACCO USE [facility] Mar 25, 2017 01:57 PM CURRENT SMOKER down to 10 cigarettes daily [facility] Mar 25, 2017 01:57 PM V1-PT DECLINES TOB ACCO CESSATION [facility] Mar 25, 2017 01:57 PM V1-PT READY TO SHARAN T TOBACCO USE [facility] March 04, 2017 02:38 PM CURRENT SMOKER advise stopm [facility] Jul 22, 2016 09:29 AM V1-PT NOT INTEREST ED IN QUIT TOBACCO USE [facility] Nov 21, 2015 09:21 AM CURRENT SMOKER half a pack a day [facility] Nov 21, 2015 09:21 AM V1-PT NOT INTEREST ED IN QUIT TOBACCO USE [facility] Nov 23, 2014 08:51 AM CURRENT SMOKER [facility] Nov 23, 2014 08:51 AM V1-PT READY TO SHARAN T TOBACCO USE [facility] Dec 16, 2013 02:19 PM CURRENT SMOKER 3/4 pack a day [facility] Dec 16, 2013 02:19 PM V1-PT THINKING ABO UT QUIT TOBACCO USE [facility] Advance Directives: All historical and current Section Date Range: From patient's date of to the date document was created. This section includes ALL of a patient's completed or amended [facility] Advance and Rescinded Directives. The entries below indicate that a directive exists for the patient, but an actual copy is not included with this document. The data comes from all ID facilities. Date Advance Directives Provider Source Dec 12, 2014 ADVANCE DIRECTIVE KATRIN GREEN Encounter Notes: All associated encounter notes This section contains the clinical notes associated to the Encounter. Date/Time Encounter Note(s) Provider Source February 16, 2024 09:29 AM NURSE PRACTITIONER NOTE: LOCAL TITLE: NURSE PRACTIONER/SICK VISIT STANDARD TITLE: NURSE PRACTITIONER NOTE DATE OF NOTE: FEBRUARY 16, 2024@09:29 ENTRY DATE: FEBRUARY 16, 2024@09:30 AUTHOR: COLLIN NEVILLE COSIGNER: URGENCY: STATUS: COMPLETED NURSE PRACTIONER/SICK VISIT Has ADDENDA SICK CALL VISIT ANGELA Monsivais NICOLE is a 63 y/o WHITE MALE who presents to [facility] sick call with c/o Dizziness, nausea with elevated BP. Has chronic edema of ankles. Denies chest pain, palpitations. Is on amlodipine 5mg daily, states he takes his medications as directed. Feels SOB, smokes cigarettes and marijuana. Has an inhaler but hasn't been using it. Having a lot of anxiety d/t stressors right now, feels overwhelmed and struggling. Sees therapist and psychiatrist at [facility] - usually sees therapist weekly but they deferred this week's appt. Sees his psych this Thursday. On multiple medications for MH. States he takes these as directed. Denies SI. Reports he has a lot of family support. ID PCP: ======= AUSTIN BALDWIN VITAL SIGNS: Temperature 98 F [36.7 C] (02/16/2024 09:16) Blood Pressure 186/112 (02/16/2024 09:16) Pulse 76 (02/16/2024 09:16) Respiration 20 (02/16/2024 09:16) Pain 1 (02/16/2024 09:16) BMI BMI: 38.2 Weight 250.4 lb [113.58 kg] (01/19/2024 08:30) Pulse Oximetry 94% (02/16/2024 09:16) REVIEW OF SYSTEMS: see HPI PHYSICAL EXAMINATION: General: Pansey presents in NAD Mental Status: Alert and oriented x4. Neck: Supple. No lymphadenopathy. No bruit. Thyroid unremarkable. Lungs: Expiratory wheezes present BUL. Normal chest excursion. Eupneic respirations. No cough. CV: Heart tones S1, S2. RRR. No M/G/R. Trace peripheral edema. GI: Abdomen is soft and nontender. Neuro: CN II through XII grossly intact. Normal speech. Normal gait. Psych: Depressed mood and flat affect, closed posture. Normal judgment. Cooperative with exam, follows commands. ASSESSMENT/PLAN: 1. HTN - clonidine 0.1mg PO given in clinic today. Patient verbalizes desire to go to ED for evaluation, report called. Instructed to monitor BP at home with his personal cuff and log BP daily. F/U one week to review. EKG shows RBBB 2. Wheezing - + smoker. Has an inhaler, instructed to use this PRN. Again, is going to ED for evaluation. 3. anxiety with panic attack - continue current MH medications, has appt with psychiatrist in 3 days. MH RN met with him in clinic today. MEDICATIONS reviewed with FOLLOW UP: Return to clinic 3-5 days if no improvement in symptoms. UPCOMING APPOINTMENTS: No data available /karlene/ GARCIA BUTTS CERTIFIED NURSE PRACTITIONER Signed: 02/16/2024 10:04 02/16/2024 ADDENDUM STATUS: COMPLETED Clonidine was not given in clinic d/t patient sent to ED /karlene/ GARCIA BUTTS CERTIFIED NURSE PRACTITIONER Signed: 02/16/2024 10:06 COLLIN NEVILLE [facility]
--- OUTSIDE RECORDS SUMMARY | 2025-02-01 16:04 | XMS_ITS | Encounter Summary ---
Author Name [facility] [place] [facility] [place] Address [address] [place] [address] Care Team Providers Care Music Autographer Name Role Phone AUSTIN BALDWIN Primary Care Provider [facility] Insurance Providers: All historical [...] Relationship to Policy Lomas PATRICIO MULLIGAN-WN R [place] SPECIAL CLASS PATRICIO ERICKSON Nov 14, 2024 PATRICIO MULLIGAN [id number] Dougie RIVERA PATIENT [facility] MEDICAID MEDICAID MEDIC AID Oct 05, 2016 MEDICAI D [id number] NICOLE,A NALLELY PATIENT MEDICAID MEDICAID [facility] STAND BEATRICE Oct 05, 2014 MEDICAI D [id number] Dougie RIVERA NALLELY PATIENT MEDICARE (WNR) MEDICARE (M) PART A May 05, 2018 PART A [id number] [facility] [phone] Dougie RIVERA NALLELY PATIENT MEDICARE (WNR) MEDICARE (M) PART B May 05, 2018 PART B [id number] [facility] Dougie RIVERA PATIENT Selected Encounter This section includes the information on record at [place] for the Encounter. Date/Time Encounter Type Encounter Description Reason Provider Source Mar 31, 2024 10:00 AM UNLISTED SPEC DERM SVC/PX DERMATOLOGY ICD-10-CM Z13.89 Encounter for screening for other disorder WU ROMERO HOMA Nancy Encounter Template Text not used by [place] Assessments - Encounter Diagnoses This section includes the primary and secondary diagnoses documented for the Encounter. Date/Time Primary/Secondary Diagnosis Diagnosis Name Provider Source Mar 31, 2024 10:47 AM PRIMARY Encounter for screening for other disorder YOLANDA ROMERO DEPORT Plan of Treatment: Future Appointments (+ 6 months) and Future Tests (+/- 45 days) The Plan of Treatment section includes future care activities for the patient from all [place] [facility] This section includes future appointments and future orders which are active, pending or scheduled. Future Appointments This section includes appointments that were scheduled to occur 6 months from the date of the Encounter, up to a maximum of 20 appointments. The data comes from all [place] treatment facilities. Appointment Date/Time Appointment Type Appointme nt Facility Name Apr 05, 2024 10:00 AM [facility] Apr 05, 2024 01:30 PM [facility] Apr 19, 2024 10:30 AM [place] [facility] [facility] [place] [facility] Apr 26, 2024 10:00 AM [facility] Apr 27, 2024 10:30 AM [place] [facility] [place] [facility] May 03, 2024 09:00 AM [facility] May 10, 2024 01:00 PM [place] [facility] May 20, 2024 09:00 AM [facility]ORY [facility] May 31, 2024 03:30 PM [place] [facility] Jun 14, 2024 03:30 PM [place] [facility] Jun 23, 2024 09:00 AM [place] [place] [facility] Jul 05, 2024 03:30 PM [place] [facility] Jul 15, 2024 11:30 AM [facility] Jul 25, 2024 09:30 AM [place] [place] [facility] Jul 25, 2024 10:00 AM [place] [facility] Jul 25, 2024 11:00 AM [place] [facility] Jul 28, 2024 09:30 AM [facility] [place] Jul 28, 2024 10:00 AM [facility] [place] Jul 29, 2024 03:00 PM [facility] [place] [facility] [place] [facility] Aug 03, 2024 03:30 PM AMBULATORY - MEDICINE [facility] Active, Pending, and Scheduled Orders This section includes a listing of several types of active, pending, and scheduled orders, including clinic medications orders, diagnostic test orders, procedure orders and consult orders; where the start date of the order is 45 days before the date of the Encounter or 45 days after the date of theEncounter. The data comes from all [place] treatment facilities. Test Date/Time Test Type Test Details Facility Name February 22, 2024 12:00 AM Laboratory - Chemi dorethay Order HEMOGLOBIN A1C PANEL BLOOD (LAV-BLOOD) [facility] Lab Results: +/- 30 days of the encounter This section includes the Chemistry and Hematology Lab Results on record with [place] for the patient. Radiology Reports and Pathology Reports are provided separately, in subsequent sections. Lab Results This section contains the Chemistry/Hematology Results that were resulted 30 days before or 30 daysafter the date of the Encounter. Date/Time Source Result Type Result - Unit Interpretation Reference Range Specimen Type Comment Apr 05, 2024 08:13 AM [facility] VITAMIN D (25-OH) SERUM Specimen Type: SERUM No comment entered. Ordering Provider: ALFREDO SANDERS Report Released Date/Time: Jan 19, 2024 04:58 PM Reporting Lab: [address] [address] Performing Lab: [address] [address] VITAMIN D (25-OH) 43 ng/mL 20-50 Apr 05, 2024 08:13 AM [facility] FERRITIN SERUM Specimen Type: SERUM No comment entered. Ordering Provider: ALFREDO SANDERS Report Released Date/Time: Jan 19, 2024 04:58 PM Reporting Lab: [facility] [address] [facility] [address] Performing Lab: [address] [address] FERRITIN 33 ng/mL 20-300 Apr 05, 2024 08:13 AM [facility] BASIC METABOLIC PANEL (non-fasting) SERUM Spe cimen Type: SERUM No comment entered. Ordering Provider: ALFREDO SANDERS Report Released Date/Time: Jan 19, 2024 04:58 PM Reporting Lab: [address] [address] Performing Lab: [address] [address] UREA NITROGEN 14 mg/dL 7-25 GLUCOSE 128 mg/dL H 65-100 SODIUM 138 mmol/L 135-145 POTASSIUM 4.5 mmol/L 3.5-5.0 CHLORIDE 103 mmol/L 100-110 CO2 24 meq/L 20-30 CREATININE, Serum 1.35 mg/dL 0.50-1.40 eGFR(CKD-EPI 2020) 59 mL/min L >60 Apr 05, 2024 08:13 AM [facility] MICROALBUMIN CREATININE RATIO PANEL URINE Spe cimen Type: URINE No comment entered. Ordering Provider: ALFREDO SANDERS Report Released Date/Time: Jan 19, 2024 04:58 PM Reporting Lab: [address] [address] Performing Lab: [address] [address] MICROALBUMIN/CREATININE RATIO 70.7 mg/g H 0-29.9 MICROALBUMIN,QUANTITATIVE 11.0 mg/dL RR UNAVAIL CREATININE URINE 155.54 mg/dL Apr 05, 2024 08:13 AM [facility] IRON & TIBC PANEL SERUM Specimen Type: SERUM No comment entered. Ordering Provider: ALFREDO SANDERS Report Released Date/Time: Jan 19, 2024 04:58 PM Reporting Lab: [facility] [address] [facility] [address] Performing Lab: [address] [address] TIBC 494 ug/dL H 204-475 IRON 110 ug/dL 40-160 Transferrin Saturation 22.3 20.0-50.0 Apr 05, 2024 08:13 AM [facility] CBC BLOOD Specimen Type: BLOOD No comment entered. Ordering Provider: ALFREDO SANDERS Report Released Date/Time: Jan 19, 2024 04:58 PM Reporting Lab: [facility] [address] [facility] [address] Performing Lab: [address] [address] WBC 8.57 10*3/uL 4.50-11.00 RBC 5.34 10*6/uL 4.23-5.66 HGB 16.0 g/dL 12.8-17 HCT 46.1 39.2-50.4 MCV 86.3 fL 82-99 MCHC 34.7 g/dL 30.8-35.1 PLT 278 10*3/uL 140-360 RDW-CV 12.6 12.0-16.0 MCH 30.0 pg 26.2-32.6 Social History: Smoking Status (Most current) and Tobacco Use (All prior to encounter date) This section includes the most current, and the historical, smoking and tobacco- related health factors from the [place] facility where the Encounter took place. Current Smoking Status This section includes the most current smoking, or tobacco-related health factor, from the [place] facility where the Encounter took place. Date/Time Current Smoking Status Comment Michela itmikayla Dec 16, 2023 10:00 AM [place]-TOBACCO USER EVERY DAY DEPORT Tobacco Use History This section includes a history of the smoking, or tobacco-related health factors, that were collected on or before the date of the Encounter. The data comes from the [place] facility where the Encounter took place. Date/Time Smoking Status/Tobacco Use Comment F acility Dec 16, 2023 10:00 AM [place]-TOBACCO USE > 1 5 LESS THAN 30 YEARS DEPORT Dec 16, 2023 10:00 AM [place]-TOBACCO USE 30 YEARS OR MORE DEPORT Dec 16, 2023 10:00 AM [place]-TOBACCO USE ADVICE DEPORT Dec 16, 2023 10:00 AM VA-TOBACCO USE WAREHOUSE FOREMAN NO DEPORT Dec 16, 2023 10:00 AM [place]-TOBACCO USE WAREHOUSE FOREMAN YES DEPORT Dec 16, 2023 10:00 AM VA-TOBACCO USE MED NO DEPORT Dec 16, 2023 10:00 AM [place]-TOBACCO USE MED YES DEPORT Dec 16, 2023 10:00 AM [place]ACCO [place] [address] [facility] Dec 16, 2023 10:00 AM VA-TOBACCO USER EVERY DAY DEPORT Jan 13, 2023 02:00 PM VA-TOBACCO USE 1 T O < 5 YEARS DEPORT Jan 13, 2023 02:00 PM VA-TOBACCO USE ADVICE DEPORT Jan 13, 2023 02:00 PM VA-TOBACCO USE WAREHOUSE FOREMAN NO DEPORT Jan 13, 2023 02:00 PM VA-TOBACCO USE MED NO DEPORT Jan 13, 2023 02:00 PM [place]TO[place]CO [place] Jan 13, 2023 02:00 PM VA-TOBACCO USER EVERY DAY DEPORT Jul 03, 2022 09:00 AM VA-TOBACCO FORMER USER DEPORT Jul 03, 2022 09:00 AM VA-TOBACCO QUIT 5 TO < 15 YRS DEPORT Jul 04, 2021 09:00 AM VA-TOBACCO USE > 1 5 LESS THAN 30 YEARS DEPORT Jul 04, 2021 09:00 AM VA-TOBACCO USE ADVICE DEPORT Jul 04, 2021 09:00 AM VA-TOBACCO USE WAREHOUSE FOREMAN NO DEPORT Jul 04, 2021 09:00 AM VA-TOBACCO USE MED NO DEPORT Jul 04, 2021 09:00 AM [place]-TOBACCO USE [place] 30 [place] OF [place] DE[place] Jul 04, 2021 09:00 AM VA-TOBACCO USER SOME DAYS DEPORT Apr 30, 2020 10:39 AM VA-TOBACCO FORMER USER DEPORT Apr 30, 2020 10:39 AM VA-TOBACCO QUIT 5 TO < 15 YRS DEPORT Dec 21, 2018 03:15 PM VA-TOBACCO FORMER USER DEPORT Dec 21, 2018 03:15 PM VA-TOBACCO QUIT 1 TO < 5 YRS DEPORT Nov 24, 2017 09:54 AM CURRENT SMOKER cigarets DEPORT Nov 24, 2017 09:54 AM V1-PT READY TO SHARAN T TOBACCO USE DEPORT Mar 25, 2017 01:57 PM CURRENT SMOKER down to 10 cigarettes daily DEPORT Mar 25, 2017 01:57 PM V1-PT DECLINES TOB ACCO CESSATION MEDS DEPORT Mar 25, 2017 01:57 PM V1-PT READY TO SHARAN T TOBACCO USE DEPORT March 04, 2017 02:38 PM CURRENT SMOKER advise stopm DEPORT Jul 22, 2016 09:29 AM V1-PT NOT INTEREST ED IN QUIT TOBACCO USE DEPORT Nov 21, 2015 09:21 AM CURRENT SMOKER half a pack a day DEPORT Nov 21, 2015 09:21 AM V1-PT NOT INTEREST ED IN QUIT TOBACCO USE DEPORT Nov 23, 2014 08:51 AM CURRENT SMOKER [facility] Nov 23, 2014 08:51 AM V1-PT READY TO SHARAN T TOBACCO USE DEPORT Dec 16, 2013 02:19 PM CURRENT SMOKER 3/4 pack a day DEPORT Dec 16, 2013 02:19 PM V1-PT THINKING ABO UT QUIT TOBACCO USE DEPORT Advance Directives: All historical and current Section Date Range: From patient's date of to the date document was created. This section includes ALL of a patient's completed or amended [place] Advance and Rescinded Directives. The entries below indicate that a directive exists for the patient, but an actual copy is not included with this document. The data comes from all [place] facilities. Date Advance Directives Provider Source Dec 12, 2014 ADVANCE DIRECTIVE KATRIN GREEN Encounter Notes: All associated encounter notes This section contains the clinical notes associated to the Encounter. Date/Time Encounter Note(s) Provider Source Mar 31, 2024 10:40 AM TELEHEALTH CONSULT : LOCAL TITLE: CONSULT REPORT/TELEDERMATOLOGY IMAGING REQUEST STANDARD TITLE: TELEHEALTH CONSULT DATE OF NOTE: MAR 31, 2024@10:40 ENTRY DATE: MAR 31, 2024@10:40:37 AUTHOR: YANDEL ROMERO EXP COSIGNER: URGENCY: STATUS: COMPLETED Teledermatology Consult Request The patient was educated regarding the Teledermatology process at this encounter. Comment: patient educated on telederm process and verbalizes understanding. Patient DOES consent to have images taken, viewed, and interpreted using the Teledermatology process. This consult addresses: A new condition Images were acquired: In clinic HISTORY: Prior skin history: None reported Have you had a skin cancer before? Squamous Cell Carcinoma (SCC) Patient reports no family history of melanoma. Taking new med/supplements: Yes Name of medication(s): SEMAGLUTIDE (OZEMPIC),VITAMIN D3 (CHOLECALCIFEROL) TAB 50MCG, and VARENICLINE TAB 0.5MG Immunosuppression history: None reported Other significant history: None reported Chief Complaint: he is worried; look benign to me PROBLEM A LOCATION(S): Head/Neck: Left side of Head ([place]) DURATION: About Few weeks Ago SYMPTOMS: No Symptoms CHANGES: Size: Getting bigger TREATMENT: No BIOPSY: No Abrasive Grader's comments: Imaged per provider's direction and facility protocol /karlene/ YANDEL ROMERO TELEHEALTH CLINICAL TECHNIAN (TCT) Signed: 03/31/2024 11:14 YANDEL ROMERO
--- OUTSIDE RECORDS SUMMARY | 2025-02-01 16:04 | XMS_ITS | Encounter Summary ---
Author Name [place] Address [address] [place] [address] Care Team Providers Care Avionics Safety Inspector Name Role Phone AUSTIN BALDWIN Primary Care Provider [facility] Insurance Providers: All historical and [...] Relationship to Policy Lomas PATRICIO MULLIGAN-WN R CT SPECIAL CLASS PATRICIO ERICKSON Nov 14, 2024 PATRICIO MULLIGAN [id number] Dougie RIVERA PATIENT [facility] MEDICAID MEDICAID MEDIC AID Oct 05, 2016 MEDICAI D [id number] NICOLE,A NALLELY PATIENT MEDICAID MEDICAID [facility] STAND BE[facility]RICE Oct 05, 2014 MEDICAI D [id number] Dougie RIVERA NALLELY PATIENT MEDICARE (WNR) MEDICARE (M) PART A May 05, 2018 PART A [id number] [facility] [phone] [id number] Dougie RIVERA NALLELY PATIENT MEDICARE (WNR) MEDICARE (M) PART B May 05, 2018 PART B [id number] [facility] Dougie RIVERA PATIENT Selected Encounter This section includes the information on record at [place] for the Encounter. Date/Time Encounter Type Encounter Description Reason Provider Source Dec 19, 2024 09:30 AM OFFICE O/P EST LOW 20 MIN PRIMARY CARE/MEDICINE ICD-10-CM R11.0 Nausea AUSTIN BALDWIN JIMNancy Encounter Template Text not used by CT Assessments - Encounter Diagnoses This section includes the primary and secondary diagnoses documented for the Encounter. Date/Time Primary/Secondary Diagnosis Diagnosis Name Prov ider Source Dec 19, 2024 10:01 AM PRIMARY Nausea AUSTIN BALDWIN SHARONA Plan of Treatment: Future Appointments (+ 6 months) and Future Tests (+/- 45 days) The Plan of Treatment section includes future care activities for the [facility] [place] [facility] This section includes future appointments and future orders which are active, pending or scheduled. Future Appointments This section includes appointments that were scheduled to occur 6 months from the date of the Encounter, up to a maximum of 20 appointments. The data comes from all [facility] Appointment Date/Time Appointment Type Appointme nt Facility Name Dec 28, 2024 03:00 PM AM[facility]ULATORY [facility] Jan 09, 2025 01:30 PM [facility]ATORY [facility] Jan 12, 2025 09:00 AM [facility] Jan 26, 2025 09:[address] [facility] February 08, 2025 01:00 PM AMBULATORY [facility] February 13, 2025 01:00 PM [facility] Mar 14, 2025 08:30 AM AMBULATORY [facility] Mar 14, 2025 09:00 AM AMBULATORY [facility] May 18, 2025 09:00 AM [facility] Jun 15, 2025 08:30 AM [facility] Active, Pending, and Scheduled Orders This section includes a listing of several types of active, pending, and scheduled orders, including clinic medications orders, diagnostic test orders, procedure orders and consult orders; where the start date of the order is 45 days before the date of the Encounter or 45 days after the date of theEncounter. The data comes from all [place] treatment facilities. Test Date/Time Test Type Test Details Facility Name Nov 16, 2024 12:00 AM Laboratory - Chemi stry Order FERRITIN BLOOD (SST-SERUM) [facility] Nov 16, 2024 12:00 AM Laboratory - Chemi stry Order HEMOGLOBIN A1C PANEL BLOOD (LAV-BLOOD) [facility] 12, 2025 12:00 AM Laboratory - Chemi stry Order TSH BLOOD (SST-SERUM) [facility] 12, 2025 12:00 AM Laboratory - Chemi stry Order PSA BLOOD (SST-SERUM) [facility] Nov 16, 2024 12:00 AM Laboratory - Chemi stry Order AMYLASE BLOOD (SST-SERUM) [facility] Nov 16, 2024 12:00 AM Laboratory - Chemi stry Order LIPASE BLOOD (SST-SERUM) [facility] Nov 16, 2024 12:00 AM Laboratory - Chemi stry Order URINALYSIS URINE [facility] 12, 2025 12:00 AM Laboratory - Chemi stry Order MICROALBUMIN CREATININE RATIO PANEL URINE (RANDOM) [facility] 12, 2025 12:00 AM Laboratory - Chemi stry Order BASIC METABOLIC PANEL (fasting) BLOOD (SST-SERUM) [facility] Nov 16, 2024 12:00 AM Laboratory - Chemi stry Order LIVER FUNCTION BLOOD (SST-SERUM) [facility] Nov 16, 2024 12:00 AM Laboratory - Chemi stry Order LIPID PANEL FASTING BLOOD (SST-SERUM) [facility] Nov 16, 2024 12:00 AM Laboratory - Chemi stry Order CALCIUM BLOOD (SST-SERUM) [facility] Nov 16, 2024 12:00 AM Laboratory - Chemi stry Order VITAMIN D (25-OH) BLOOD (SST-SERUM) [facility] Nov 16, 2024 12:00 AM Laboratory - Chemi stry Order URIC ACID BLOOD (SST-SERUM) [facility] Nov 16, 2024 12:00 AM Laboratory - Chemi stry Order CBC AND DIFF (AUTO) BLOOD (LAV-BLOOD) [facility] Lab Results: +/- 30 days of the encounter This section includes the Chemistry and Hematology Lab Results on record with CT for the patient. Radiology Reports and Pathology Reports are provided separately, in subsequent sections. Lab Results This section contains the Chemistry/Hematology Results that were resulted 30 days before or 30 daysafter the date of the Encounter. Date/Time Source Result Type Result - Unit Interpretation Reference Range Specimen Type Comment Dec 19, 2024 10:15 AM [facility] GLUCOSE, Fingerstick BLOOD Specimen T ype: BLOOD Comment: For GLU FinTest performed by: Christy Robbins For GLU Fin Meter #: [id number] Ordering Provider: SWAPNIL SCHOFIELD Report Released Date/Time: Dec 19, 2024 04:05 PM Reporting Lab: [address] [address] Performing Lab: [address] [address] GLUCOSE, Fingerstick 133 mg/dL H 65-100 Dec 15, 2024 09:34 AM [facility] CREATININE (eGFR 2020) SERUM Specimen Type: SERUM No comment entered. Ordering Provider: SWAPNIL SCHOFIELD Report Released Date/Time: Dec 14, 2024 02:29 PM Reporting Lab: [address] [address] Performing Lab: [address] [address] CREATININE, Serum 1.27 mg/dL 0.50-1.40 eGFR(CKD-EPI 2020) 63 mL/min >60 Dec 15, 2024 09:34 AM [facility] HEMOGLOBIN A1C PANEL BLOOD Specimen T ype: [...] Dec 14, 2024 02:29 PM Reporting Lab: [address] [address] Performing Lab: [address] [address] HEMOGLOBIN A1C 5.8 H 4.0-5.6 Social History: Smoking Status (Most current) and Tobacco Use (All prior to encounter date) This section includes the most current, and the historical, smoking and tobacco- related health factors from the [place] facility where the Encounter took place. Current Smoking Status This section includes the most current smoking, or tobacco-related health factor, from the [place] facility where the Encounter took place. Date/Time Current Smoking Status Comment Facil arnel Dec 16, 2023 10:00 AM [place]-TOBACCO USER EVERY DAY [facility] Tobacco Use History This section includes a history of the smoking, or tobacco-related health factors, that were collected on or before the date of the Encounter. The data comes from the [place] facility where the Encounter took place. Date/Time Smoking Status/Tobacco Use Comment F acility Dec 16, 2023 10:00 AM [place]-TOBACCO USE > 1 5 LESS THAN 30 YEARS [facility] Dec 16, 2023 10:00 AM VA-TOBACCO USE 30 YEARS OR MORE [facility] Dec 16, 2023 10:00 AM VA-TOBACCO USE ADVICE [place] Dec 16, 2023 10:00 AM VA-TOBACCO USE DIVING JUDGE NO [facility] Dec 16, 2023 10:00 AM VA-TOBACCO USE DIVING JUDGE YES [facility] Dec 16, 2023 10:00 AM VA-TOBACCO USE MED NO [place] Dec 16, 2023 10:00 AM VA-TOBACCO USE MED YES [place] Dec 16, 2023 10:00 AM VA-TOBACCO USE [place] 30 MIN OF WAKEUP [facility] Dec 16, 2023 10:00 AM VA-TOBACCO USER EVERY DAY [facility] Jan 13, 2023 02:00 PM VA-TOBACCO USE 1 T O < 5 YEARS [facility] Jan 13, 2023 02:00 PM VA-TOBACCO USE ADVICE [facility] Jan 13, 2023 02:00 PM VA-TOBACCO USE DIVING JUDGE NO [facility] Jan 13, 2023 02:00 PM VA-TOBACCO USE MED NO [place] Jan 13, 2023 02:00 PM VA-TOBACCO USE [place] 30 MIN OF WAKEUP [facility] Jan 13, 2023 02:00 PM VA-TOBACCO USER EVERY DAY [facility] Jul 03, 2022 09:00 AM VA-TOBACCO FORMER USER [facility] Jul 03, 2022 09:00 AM VA-TOBACCO QUIT 5 TO < 15 YRS [facility] Jul 04, 2021 09:00 AM VA-TOBACCO USE > 1 5 LESS THAN 30 YEARS [facility] Jul 04, 2021 09:00 AM VA-TOBACCO USE ADVICE [place] Jul 04, 2021 09:00 AM VA-TOBACCO USE DIVING JUDGE NO [place] Jul 04, 2021 09:00 AM VA-TOBACCO USE MED NO [place] Jul 04, 2021 09:00 AM VA-TOBACCO USE [place] 30 MIN OF WAKEUP [facility] Jul 04, 2021 09:00 AM VA-TOBACCO USER SOME DAYS [facility] Apr 30, 2020 10:39 AM VA-TOBACCO FORMER USER [place] Apr 30, 2020 10:39 AM VA-TOBACCO QUIT 5 TO < 15 YRS [facility] Dec 21, 2018 03:15 PM VA-TOBACCO FORMER USER [place] Dec 21, 2018 03:15 PM VA-TOBACCO QUIT 1 TO < 5 YRS [facility] Nov 24, 2017 09:54 AM CURRENT SMOKER cigarets [facility] Nov 24, 2017 09:54 AM V1-PT READY TO SHARAN T TOBACCO USE [facility] Mar 25, 2017 01:57 PM CURRENT SMOKER down to 10 cigarettes daily [facility] Mar 25, 2017 01:57 PM V1-PT DECLINES TOB ACCO CESSATION [facility] Mar 25, 2017 01:57 PM V1-PT READY TO SHARAN T TOBACCO USE [facility] March 04, 2017 02:38 PM CURRENT SMOKER advise stopm [facility] Jul 22, 2016 09:29 AM V1-PT NOT INTEREST ED IN QUIT TOBACCO USE [place] Nov 21, 2015 09:21 AM CURRENT SMOKER half a pack a day [facility] Nov 21, 2015 09:21 AM V1-PT NOT INTEREST ED IN QUIT TOBACCO USE [place] Nov 23, 2014 08:51 AM CURRENT SMOKER [facility] Nov 23, 2014 08:51 AM V1-PT READY TO SHARAN T TOBACCO USE [place] Dec 16, 2013 02:19 PM CURRENT SMOKER 3/4 pack a day [place] Dec 16, 2013 02:19 PM V1-PT THINKING ABO UT QUIT TOBACCO USE [place] Advance Directives: All historical and current Section Date Range: From patient's date of to the date document was created. This section includes ALL of a patient's completed or amended VA Advance and Rescinded Directives. The entries below indicate that a directive exists for the patient, but an actual copy is not included with this document. The data comes from all CT facilities. Date Advance Directives Provider Source Dec 12, 2014 ADVANCE DIRECTIVE KATRIN GREEN Encounter Notes: All associated encounter notes This section contains the clinical notes associated to the Encounter. Date/Time Encounter Note(s) Provider Source Dec 19, 2024 09:44 AM PHYSICIAN ASSISTAN T NOTE: LOCAL TITLE: PA NOTE STANDARD TITLE: PHYSICIAN MAILHOUSE OPERATOR NOTE DATE OF NOTE: DEC 19, 2024@09:44 [...] this [facility] (local) and dispensed from another CT or DoD facility (remote) as well as [...] provider. /karlene/ AUSTIN BALDWIN PA-C STAFF PHYSICIAN MAILHOUSE OPERATOR Signed: 12/19/2024 10:02 AUSTIN BALDWIN
--- OUTSIDE RECORDS SUMMARY | 2025-02-01 16:04 | XMS_ITS | Encounter Summary ---
Author Name [facility] [place] [facility] [place] Address [address] [place] [address] Care Team Providers Care Public Policy Associate Name Role Phone AUSTIN BALDWIN Primary Care [...] Relationship to Policy Lomas PATRICIO MULLIGAN-ESME Jones [place] PATRICIO ERICKSON Nov 14, 2024 PATRICIO MULLIGAN [id number] NICOLE,A NALLELY PATIENT [facility] MEDICAID MEDICAID MEDIC AID Oct 05, 2016 MEDICAI D [id number] NICOLE,A NALLELY PATIENT MEDICAID MEDICAID [facility] STAND BEATRICE Oct 05, 2014 MEDICAI D [id number] NICOLE,A NALLELY PATIENT MEDICARE (WNR) MEDICARE (M) PART A May 05, 2018 PART A [id number] [facility] [phone] [id number] Dougie RIVERA NALLELY PATIENT MEDICARE (WNR) MEDICARE (M) PART B May 05, 2018 PART B [id number] [facility] LAUZIER,A NALLELY PATIENT Selected Encounter This section includes the information on record at [place] for the Encounter. Date/Time Encounter Type Encounter Description Reason Provider Source February 16, 2024 08:45 AM OFF/OP EST MAY X REQ PHY/QHP PRIMARY CARE/MEDICINE ICD-10-CM F41.9 Anxiety disorder, unspecified CRISTINA CABEZAS NELSON Encounter Template Text not used by [place] Assessments - Encounter Diagnoses This section includes the primary and secondary diagnoses documented for the Encounter. Date/Time Primary/Secondary Diagnosis Diagnosis Name Provider Source February 16, 2024 01:21 PM PRIMARY Anxiety disorder, unspecified RAULITOSTACIACRISTINAJONATHAN TABOR February 16, 2024 01:21 PM SECONDARY Essential (primary) hypertension RAULITOCRISTINA TABOR February 16, 2024 01:21 PM SECONDARY Panic disorder [episodic paroxysmal anxiety] CRISTINA CABEZAS Plan of Treatment: Future Appointments (+ 6 months) and Future Tests (+/- 45 days) The Plan of Treatment section includes future care activities for the patient from all [place] treatmentfacilities. This section includes future appointments and future orders which are active, pending or scheduled. Future Appointments This section includes appointments that were scheduled to occur 6 months from the date of the Encounter, up to a maximum of 20 appointments. The data comes from all [place] treatment facilities. Appointment Date/Time Appointment Type Appointme nt Facility Name February 23, 2024 09:00 AM AMBULATORY - MEDICINE [facility] March 01, 2024 09:00 AM AMBULATORY - MEDICINE [facility] Mar 08, 2024 09:00 AM AMBULATORY - MEDICINE [facility] Mar 08, 2024 09:30 AM AMBULATORY - MEDICINE [facility] Mar 11, 2024 02:00 PM [place] [facility] [place] [facility] Mar 15, 2024 09:00 AM [facility] Mar 16, 2024 09:00 AM [place] [facility] Mar 16, 2024 11:00 AM [facility] Mar 22, 2024 09:00 AM AM[facility]ULATORY - MEDICINE [facility] Mar 24, 2024 09:00 AM [place] [facility] Mar 31, 2024 10:00 AM AMBULATORY - NONE [place] [facility] [place] [facility] Apr 05, 2024 10:00 AM [facility] Apr 05, 2024 01:30 PM AMBULATORY - MEDICINE [facility] Apr 19, 2024 10:30 AM [place] [facility] Apr 26, 2024 10:00 AM AMBULATORY - MEDICINE [facility] Apr 27, 2024 10:30 AM [place] [facility] May 03, 2024 09:00 AM AMBULATORY - MEDICINE [facility] May 10, 2024 01:00 PM [place] [facility] May 20, 2024 09:00 AM [facility] May 31, 2024 03:30 PM [place] [facility] Active, Pending, and Scheduled Orders This section includes a listing of several types of active, pending, and scheduled orders, including clinic medications orders, diagnostic test orders, procedure orders and consult orders; where the start date of the order is 45 days before the date of the Encounter or 45 days after the date of theEncounter. The data comes from all [place] treatment facilities. Test Date/Time Test Type Test Details Facility Name February 22, 2024 12:00 AM Laboratory - Chemi dorethay Order HEMOGLOBIN A1C PANEL BLOOD (LAV-BLOOD) [facility] Lab Results: +/- 30 days of the encounter This section includes the Chemistry and Hematology Lab Results on record with [place] for the patient. Radiology Reports and Pathology Reports are provided separately, in subsequent sections. Lab Results This section contains the Chemistry/Hematology Results that were resulted 30 days before or 30 daysafter the date of the Encounter. Date/Time Source Result Type Result - Unit Interpretation Reference Range Specimen Type Comment February 23, 2024 09:10 AM [place] FERRITIN SERUM Specimen Type: SERUM No comment entered. Ordering Provider: AUSTIN BALDWIN Report Released Date/Time: Dec 22, 2023 10:15 AM Reporting Lab: [facility] [address] [facility] [address] Performing Lab: [address] [address] FERRITIN 46 ng/mL 20-300 February 23, 2024 09:10 AM [place] MICROALBUMIN CREATININE RATIO PANEL URINE Specimen Type: URINE No comment entered. Ordering Provider: AUSTIN BALDWIN Report Released Date/Time: Dec 22, 2023 10:15 AM Reporting Lab: [place] [facility] [address] [address] Performing Lab: [place] [facility] [address] [address] MICROALBUMIN/CREATININE RATIO 22.3 mg/g 0-29.9 MICROALBUMIN,QUANTITATIVE 2.5 mg/dL RR U NAVAIL CREATININE URINE 112.32 mg/dL February 23, 2024 09:10 AM [place] URIC ACID SERUM Sp ecimen Type: SERUM No comment entered. Ordering Provider: AUSTIN BALDWIN Report Released Date/Time: Dec 22, 2023 10:15 AM Reporting Lab: [place] [facility] [address] [address] Performing Lab: [facility] [address] [address] URIC ACID 4.8 mg/dL 3.5-7.2 February 23, 2024 09:10 AM [place] HEMOGLOBIN A1C PANEL BLOOD Specimen T ype: [...] Dec 22, 2023 10:15 AM Reporting Lab: [facility] [place] [address] [address] Performing Lab: [facility] [address] [address] HEMOGLOBIN A1C 6.4 H 4.0-5.6 February 23, 2024 09:10 AM [place] PSA SERUM Sp ecimen Type: SERUM No comment entered. Ordering Provider: AUSTIN BALDWIN Report Released Date/Time: Dec 22, 2023 10:15 AM Reporting Lab: [facility] [place] [address] [address] Performing Lab: [place] [facility] [facility] [address] [address] PSA 0.63 ng/mL 0.00-4.00 February 23, 2024 09:10 AM [place] TSH SERUM Sp ecimen Type: SERUM No comment entered. Ordering Provider: AUSTIN BALDWIN Report Released Date/Time: Dec 22, 2023 10:15 AM Reporting Lab: [facility] [address] [address] Performing Lab: [facility] [address] [address] TSH 1.89 u[IU]/mL 0.35-5.00 February 23, 2024 09:10 AM [place] BASIC METABOLIC PANEL (fasting) SERUM Specimen Type: SERUM No comment entered. Ordering Provider: AUSTIN BALDWIN Report Released Date/Time: Dec 22, 2023 10:15 AM Reporting [facility]: [facility] [address] [address] Performing Lab: [facility] [address] [address] UREA NITROGEN 11 mg/dL 7-25 GLUCOSE 122 mg/dL H 65-100 SODIUM 140 mmol/L 135-145 POTASSIUM 4.4 mmol/L 3.5-5.0 CHLORIDE 107 mmol/L 100-110 CO2 24 meq/L 20-30 CREATININE, Serum 1.14 mg/dL 0.50-1.40 eGFR(CKD-EPI 2020) 72 mL/min >60 February 23, 2024 09:10 AM [place] CBC AND DIFF (AUTO) BLOOD Specimen Ty pe: BLOOD No comment entered. Ordering Provider: AUSTIN BALDWIN Report Released Date/Time: Dec 22, 2023 10:15 AM Reporting Lab: [facility] [address] [address] Performing Lab: [facility] [address] [address] WBC 9.84 10*3/uL 4.50-11.00 RBC 4.93 10*6/uL 4.23-5.66 HGB 15.0 g/dL 12.8-17 HCT 43.5 39.2-50.4 MCV 88.2 fL 82-99 MCHC 34.5 g/dL 30.8-35.1 PLT 254 10*3/uL 140-360 RDW-CV 13.0 12.0-16.0 Hancock, Abs 0.84 10*3/uL 0.30-1.10 MCH 30.4 pg 26.2-32.6 Neut % 69.6 43.7-75.8 Lymph % 18.7 14.0-42.3 Hancock % 8.5 5.1-13.7 Eos % 1.7 0.4-6.8 Baso % 0.9 0.1-2.0 Neut, Abs 6.84 10*3/uL 2.20-7.60 Lymph, Abs 1.84 10*3/uL 1.00-3.20 Eos, Abs 0.17 10*3/uL 0.03-0.44 Baso, Abs 0.09 10*3/uL 0.01-0.13 Immature Gran % 0.6 0.0-0.7 Immature Gran, Abs 0.06 10*3/uL 0.00-0.0 6 February 23, 2024 09:10 AM [place] URINALYSIS URINE S pecimen Type: URINE Comment: If Glucose = >500 and Ketones are positive, please alert the Physician. Ordering Provider: AUSTIN BALDWIN Report Released Date/Time: Dec 22, 2023 10:15 AM Reporting Lab: [address] [address] Performing Lab: [address] [address] UA COLOR Light-Yellow Yellow UA APPEARANCE Clear Clear UA GLUCOSE NEGATIVE mg/dL Negative UA KETONES NEGATIVE mg/dL Negative UA BLOOD NEGATIVE mg/dL Negative UA PROTEIN NEGATIVE mg/dL Negative UA NITRITE NEGATIVE mg/dL Negative UA BILIRUBIN NEGATIVE mg/dL Negative UA SPECIFIC GRAVITY 1.019 1.016-1.022 UA pH 6.5 5.0-9.0 UA UROBILINOGEN <2.0 mg/dL <2.0 UA LEUKOCYTE NEGATIVE Negative February 23, 2024 09:10 AM [place] LIVER FUNCTION SERUM Specimen Type: SERUM No comment entered. Ordering Provider: AUSTIN BALDWIN Report Released Date/Time: Dec 22, 2023 10:15 AM Reporting Lab: [address] [address] Performing Lab: [address] [address] PROTEIN,TOTAL 6.3 g/dL 6.0-8.3 ALBUMIN 3.7 g/dL 3.5-5.0 ALKALINE PHOSPHATASE 29 U/L L 40-150 AST 45 U/L H 5-34 ALT 54 U/L BILIRUBIN, TOTAL 0.3 mg/dL 0.2-1.2 February 23, 2024 09:10 AM [place] LIPID PANEL FASTING SERUM Specimen Ty pe: SERUM No comment entered. Ordering Provider: AUSTIN BALDWIN Report Released Date/Time: Dec 22, 2023 10:15 AM Reporting Lab: [address] [address] Performing Lab: [address] [address] CHOLESTEROL 145 mg/dL TRIGLYCERIDE 241 mg/dL H 0-150 LDL calculated 59 mg/dL 0-129 CHOL/HDL 3.8 HDL CHOLESTEROL 38 mg/dL L 40-60 February 23, 2024 09:08 AM [place] CREATININE (eGFR 2020) SERUM Specimen Type: SERUM Comment: *LIPID PANEL FASTING Not Performed: February 23, 2024@09:18 by [id number] *DIRECTOR OF TECHNOLOGY Reason: duplicate Ordering Provider: SWAPNIL SCHOFIELD Report Released Date/Time: Feb 01, 2024 01:14 PM Reporting Lab: [address] [address] Performing Lab: [address] [address] CREATININE, Serum 1.13 mg/dL 0.50-1.40 eGFR(CKD-EPI 2020) [...] and tobacco- related health factors from the [place] facility where the Encounter took place. Current Smoking Status This section includes the most current smoking, or tobacco-related health factor, from the [place] facility where the Encounter took place. Date/Time Current Smoking Status Comment Michela seals Dec 16, 2023 10:00 AM VA-TOBACCO USER EVERY DAY [place] Tobacco Use History This section includes a history of the smoking, or tobacco-related health factors, that were collected on or before the date of the Encounter. The data comes from the [place] facility where the Encounter took place. 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 [place] Dec 16, 2023 10:00 AM VA-TOBACCO USE FURNITURE FINISHER HELPER YES [place] Dec 16, 2023 10:00 AM VA-TOBACCO USE MED NO [place] Dec 16, 2023 10:00 AM VA-TOBACCO USE MED YES [place] Dec 16, 2023 10:00 AM VA-TOBACCO USE WI 30 MIN OF WAKEUP [place] Dec 16, 2023 10:00 AM VA-TOBACCO USER EVERY DAY [place] Jan 13, 2023 02:00 PM VA-TOBACCO USE 1 T O < 5 YEARS [place] Jan 13, 2023 02:00 PM VA-TOBACCO USE ADVICE [place] Jan 13, 2023 02:00 PM VA-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 [place] Jan 13, 2023 02:00 PM VA-TOBACCO USE MED NO [place] Jan 13, 2023 02:00 PM VA-TOBACCO USE WI 30 MIN OF WAKEUP [place] Jan 13, 2023 02:00 PM VA-TOBACCO USER EVERY DAY [place] Jul 03, 2022 09:00 AM VA-TOBACCO FORMER USER [place] Jul 03, 2022 09:00 AM VA-TOBACCO QUIT 5 TO < 15 YRS [place] Jul 04, 2021 09:00 AM VA-TOBACCO USE > 1 5 LESS THAN 30 YEARS [place] Jul 04, 2021 09:00 AM VA-TOBACCO USE ADVICE [place] Jul 04, 2021 09:00 AM VA-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 [facility] 30, 2021 09:00 AM VA-TOBACCO USE MED NO [place] Jul 04, 2021 09:00 AM VA-TOBACCO USE WI 30 MIN OF WAKEUP [place] Jul 04, 2021 09:00 AM VA-TOBACCO USER SOME DAYS [place] Apr 30, 2020 10:39 AM VA-TOBACCO FORMER USER [place] Apr 30, 2020 10:39 AM VA-TOBACCO QUIT 5 TO < 15 YRS [place] Dec 21, 2018 03:15 PM VA-TOBACCO FORMER USER [place] Dec 21, 2018 03:15 PM VA-TOBACCO QUIT 1 TO < 5 YRS [place] Nov 24, 2017 09:54 AM CURRENT SMOKER cigarets [place] Nov 24, 2017 09:54 AM V1-PT READY TO SHARAN T TOBACCO USE [place] Mar 25, 2017 01:57 PM CURRENT SMOKER down to 10 cigarettes daily [place] Mar 25, 2017 01:57 PM V1-PT DECLINES TOB ACCO CESSATION MEDS [place] Mar 25, 2017 01:57 PM V1-PT READY TO SHARAN T TOBACCO USE [place] March 04, 2017 02:38 PM CURRENT SMOKER advise stopm [place] Jul 22, 2016 09:29 AM V1-PT NOT INTEREST ED IN QUIT TOBACCO USE [place] Nov 21, 2015 09:21 AM CURRENT SMOKER half a pack a day [place] Nov 21, 2015 09:21 AM V1-PT NOT INTEREST ED IN QUIT TOBACCO USE [place] Nov 23, 2014 08:51 AM CURRENT SMOKER [facility] Nov 23, 2014 08:51 AM V1-PT READY TO SHARAN T TOBACCO USE [place] Dec 16, 2013 02:19 PM CURRENT SMOKER 3/4 pack a day [place] Dec 16, 2013 02:19 PM V1-PT THINKING ABO UT QUIT TOBACCO USE [place] Advance Directives: All historical and current Section Date Range: From patient's date of to the date document was created. This section includes ALL of a patient's completed or amended [place] Advance and Rescinded Directives. The entries below indicate that a directive exists for the patient, but an actual copy is not included with this document. The data comes from all [place] facilities. Date Advance Directives Provider Source Dec 12, 2014 ADVANCE DIRECTIVE KATRIN GREEN Encounter Notes: All associated encounter notes This section contains the clinical notes associated to the Encounter. Date/Time Encounter Note(s) Provider Source February 16, 2024 09:49 AM URGENT CARE NOTE: LOCAL TITLE: INTERFACILITY TRANSFER FORM [id number] RN STANDARD TITLE: URGENT CARE NOTE DATE OF NOTE: FEBRUARY 16, 2024@09:49 ENTRY DATE: FEBRUARY 16, 2024@09:49:11 AUTHOR: CRISTINA CABEZAS EXP COSIGNER: URGENCY: STATUS: COMPLETED Deport being transferred to [facility] via ambulance for anxiety, hypertension, dizziness /es/ CRISTINA CABEZAS RN PRIMARY CARE RN Signed: 02/16/2024 13:21 CRISTINA CABEZAS [place] February 16, 2024 09:31 AM PRIMARY CARE NOTE: LOCAL TITLE: WALK-IN NOTE PRIMARY CARE (T) STANDARD TITLE: PRIMARY CARE NOTE DATE OF NOTE: FEBRUARY 16, 2024@09:31 ENTRY DATE: FEBRUARY 16, 2024@09:31:28 AUTHOR: CRISTINA CABEZAS EXP COSIGNER: URGENCY: STATUS: COMPLETED WALK-IN NOTE PRIMARY CARE (T) Has ADDENDA Data: 63year old MALE Deport reports to Primary Care clinic for Walk-In visit. 's PCP is AUSTIN BALDWIN Vet walks in to clinic with complaint of anxiety and panic attacks Last recorded Vital Signs are: Temperature:98 F [36.7 C] (02/16/2024 09:16) Pulse:76 (02/16/2024 09:16) Blood Pressure:186/112 (02/16/2024 09:16) Respiration:20 (02/16/2024 09:16) Pain:1 (02/16/2024 09:16) Vet reports current allergies are: Remote Allergy Data FACILITY ALLERGY/ADR -------- 689^[facility]^[id number] Current Medications from Active Med list include: Active Outpatient Medications (including Supplies): Active Outpatient Medications Status = 1) ACCU-CHEK GUIDE (GLUCOSE) TEST STRIP USE 1 STRIP TO ACTIVE (S) TEST BLOOD SUGARS DIRECTED 2) ALBUTEROL 90MCG (CFC-F) 200D ORAL INHL INHALE 1 PUFF ACTIVE BY MOUTH FOUR TIMES DAILY NEEDED FOR BRONCHOSPASM 3) ALCOHOL PREP PAD USE 1 PAD TOPICALLY ONCE DAILY TO ACTIVE CLEAN SKIN FOR INJECTION ETC 4) AMLODIPINE BESYLATE 5MG TAB TAKE ONE TABLET BY MOUTH ACTIVE ONCE DAILY FOR BLOOD PRESSURE/HEART, DO NOT TAKE WITH GRAPEFRUIT JUICE 5) CHOLECALCIF 50MCG (D3-2,000UNIT) TAB TAKE ONE TABLET ACTIVE BY MOUTH ONCE DAILY FOR VITAMIN D DEFICIENCY 6) FENOFIBRATE 145MG TAB TAKE ONE TABLET BY MOUTH ONCE ACTIVE DAILY 7) LANCET,SOFTCLIX USE 1 LANCET DIRECTED ONCE DAILY ACTIVE NEEDED TO TEST BLOOD SUGAR 8) OMEPRAZOLE 20MG EC CAP TAKE ONE CAPSULE BY MOUTH ACTIVE TWICE DAILY FOR EXCESSIVE PRODUCTION OF STOMACH ACID 9) SILDENAFIL CITRATE 100MG TAB TAKE ONE TABLET BY MOUTH ACTIVE DIRECTED TAKE 1 HOUR PRIOR TO SEXUAL ACTIVITY Active Non-VA Medications Status = 1) Non-VA [...] MOUTH ONCE DAILY 17 Total Medications Action: Reports to sick call with reports of 4 days of increase anxiety with panic attacks. States spending several days in the shower to try and help. states when his kidneys act up he starts feeling like this, states he needs IV fluids. Currently reports nausea, dizziness and fatigue I feel lethargic alert and oriented skin cool and clammy Dyspnea but states baseline Exp wheeze bilateral. Bp 177/115 initially BP Manual 186/112, HR 76 states MH services are through [facility] in [place]. Reports taking all medications as ordered today Reports in November he was hospitalized x 4 spoke with MH RN today. Deport referred to Darshana Ariza DIRECTOR OF TECHNOLOGY for evaluation. Deport expressed he would go to hospital 911 called Transferred to [facility], warm hand off with Krystin in the ED. Reminders Info Only: [place] Video Connect Capable DUE NOW MH AIMS Testing DUE NOW Homelessness/Food Insecurity Screen Jan 13 Hepatitis B Serology/Immunization DUE NOW Home Telehealth (CCHT) Referral Dec 15 Medication Reconciliation DUE NOW Td / Tdap Immunization Mar 20 HTN Assess for Elevated BP>=140/90 DUE NOW Sexual Orientation Mar 09 Hepatitis A Vaccine for High Risk DUE NOW (Optional) Whole Health Documentation DUE NOW /karlene/ CRISTINA CABEZAS RN PRIMARY CARE RN Signed: 02/16/2024 13:21 Receipt Acknowledged By: 02/16/2024 14:59 /karlene/ YOLANDA LIU Registered Nurse 02/16/2024 ADDENDUM STATUS: COMPLETED PC walk-in triage nurse brought to my attention that was in the clinic. He was reporting feeling anxious, nauseated and lethargic. He has a history of panic attacks. His blood pressure was dangerously high, and said that he felt fuuny. He is in a cold sweat he says. Mentions he has kidney disease, and that he gets IV's when he gets like this (at [facility]). Angela has providers at [facility] for therapy and medications. He is happy with his providers there. He had a therapist appointment scheduled for tomorrow, but it had to be rescheduled, which was anxiety provoking for him. He sees his psychiatric medication prescriber on Sunday 02/18. He can not tell me what medications he takes, but says he has a system where he lines up his bottles and takes them as ordered. Hospitalized in November on 4 [facility] for panic/anxiety. Prior to that he was utilizing [facility] (approx 5-6 admits). Denies any SI today, and does not have a history of this. Last drink was a few beers a couple of days ago. Denies drinking on a regular basis. He chose to be transferred to a local ED for treatment of his hypertension and medical workup for his other physical complaints. I encouraged him to ask for a crisis evaluation if he felt that once his physical symptoms were adressed, that his psychiatric symptoms persisted. He agreed. /karlene/ YOLANDA LIU Registered Nurse Signed: 02/16/2024 14:58 CRISTINA CABEZAS
--- OUTSIDE RECORDS SUMMARY | 2025-02-01 16:04 | XMS_ITS | Encounter Summary ---
Author Name [facility] [facility] [place] Address [address] [place] [address] Care Team Providers Care Ems Director Name Role Phone AUSTIN BALDWIN Primary Care [...] Relationship to Policy Lomas PATRICIO MULLIGAN-ESME Jones [place] [facility] PATRICIO ERICKSON Nov 14, 2024 PATRICIO MULLIGAN [id number] NICOLE,A NALLELY PATIENT [facility] MEDICAID MEDICAID MEDIC AID Oct 05, 2016 MEDICAI D [id number] NICOLE,A NALLELY PATIENT MEDICAID MEDICAID [facility] Oct 05, 2014 MEDICAI D [id number] NICOLE,A NALLELY PATIENT MEDICARE (WNR) MEDICARE (M) PART A May 05, 2018 PART A [id number] [facility] Dougie RIVERA NALLELY PATIENT MEDICARE (WNR) MEDICARE (M) PART B May 05, 2018 PART B [id number] [facility] LAUZIER,A NALLELY PATIENT Selected Encounter This section includes the information on record at [place] for the Encounter. Date/Time Encounter Type Encounter Description Reason Provider Source Jul 28, 2024 10:00 AM OFF/OP EST FEBRUARY X REQ PHY/QHP PRIMARY CARE/MEDICINE ICD-10-CM R68.89 Other general symptoms and signs CRISTINA CABEZAS [facility] Encounter Template Text not used by [place] Assessments - Encounter Diagnoses This section includes the primary and secondary diagnoses documented for the Encounter. Date/Time Primary/Secondary Diagnosis Diagnosis Name Provider Source Jul 28, 2024 10:23 AM PRIMARY Other general symptoms and signs CRISTINA CABEZAS [place] Plan of Treatment: Future Appointments (+ 6 months) and Future Tests (+/- 45 days) The Plan of Treatment section includes future care activities for the patient from all [place] treatmentfacilities. This section includes future appointments and [...] 29, 2024 03:00 PM AM[place] [place] [facility] [place] [facility] Aug 03, 2024 03:30 PM [place] [place] [facility] [place] [facility] Aug 05, 2024 08:30 AM [facility] [place] [facility] [place] [facility] Aug 11, 2024 08:30 AM [facility] [place] [facility] [place] [facility] Aug 25, 2024 09:00 AM [facility] [place] [facility] [place] [facility] Sep 07, 2024 10:00 AM [facility] [place] [facility] [place] [facility] Sep 07, 2024 03:00 PM [facility] [place] [facility] [place] [facility] Sep 12, 2024 09:00 AM [facility] - MEDICINE [facility] Sep 15, 2024 08:45 AM [facility] [place] [facility] [place] [facility] Sep 20, 2024 09:30 AM [facility]ULATORY - MEDICINE [facility] Sep 20, 2024 10:30 AM AM[facility]ULATORY - MEDICINE [facility] Oct 06, 2024 10:00 AM [facility] [place] [facility] [place] [facility] Oct 18, 2024 08:30 AM [facility] [place] [facility] Nov 07, 2024 01:15 PM [facility]INE [facility] [place] [facility] Nov 08, 2024 10:00 AM [facility]INE [facility] [place] [facility] Nov 15, 2024 08:30 AM [facility]ORY - MEDICINE [facility] Dec 05, 2024 02:15 PM [facility]UL[facility] [place] [facility] Dec 08, 2024 09:00 AM [facility] [place] [facility] Dec 19, 2024 09:30 AM AM[facility]ULATORY - MEDICINE [facility] Dec 19, 2024 10:00 AM AM[facility]ULATORY - MEDICINE [facility] Social History: Smoking Status (Most current) [...] place. Date/Time Current Smoking Status Comment Facil [facility] Dec 16, 2023 10:00 AM VA-TOBACCO USER EVERY DAY [place] Tobacco Use History This section includes a history of the smoking, or tobacco-related health factors, that were collected on or before the date of the Encounter. The data comes from the [place] facility where the Encounter took place. Date/Time Smoking Status/Tobacco Use Comment F acility Dec 16, 2023 10:00 AM VA-TOBACCO USE > 1 5 LESS THAN 30 YEARS [place] Dec 16, 2023 10:00 AM VA-TOBACCO USE 30 YEARS OR MORE [place] Dec 16, 2023 10:00 AM VA-TOBACCO USE ADVICE [place] Dec 16, 2023 10:00 AM VA-TOBACCO USE MAGNETIC TAPE WINDER NO [place] Dec 16, 2023 10:00 AM VA-TOBACCO USE MAGNETIC TAPE WINDER YES [place] Dec 16, 2023 10:00 AM VA-TOBACCO USE MED NO [place] Dec 16, 2023 10:00 AM VA-TOBACCO USE MED YES [place] Dec 16, 2023 10:00 AM VA-TOBACCO USE WI 30 MIN OF WAKEUP [place] Dec 16, 2023 10:00 AM VA-TOBACCO USER EVERY DAY [place] Jan 13, 2023 02:00 PM VA-TOBACCO USE 1 T O < 5 YEARS [place] Jan 13, 2023 02:00 PM VA-TOBACCO USE ADVICE [place] Jan 13, 2023 02:00 PM VA-TOBACCO USE MAGNETIC TAPE WINDER NO [place] Jan 13, 2023 02:00 PM VA-TOBACCO USE MED NO [place] Jan 13, 2023 02:00 PM VA-TOBACCO USE WI 30 MIN OF WAKEUP [place] Jan 13, 2023 02:00 PM VA-TOBACCO USER EVERY DAY [place] Jul 03, 2022 09:00 AM VA-TOBACCO FORMER USER [place] Jul 03, 2022 09:00 AM VA-TOBACCO QUIT 5 TO < 15 YRS [place] Jul 04, 2021 09:00 AM VA-TOBACCO USE > 1 5 LESS THAN 30 YEARS [place] Jul 04, 2021 09:00 AM VA-TOBACCO USE ADVICE [place] Jul 04, 2021 09:00 AM VA-TOBACCO USE MAGNETIC TAPE WINDER NO [place] Jul 04, 2021 09:00 AM VA-TOBACCO USE MED NO [place] Jul 04, 2021 09:00 AM VA-TOBACCO USE WI 30 MIN OF [place]ST[place]UP [place] Jul 04, 2021 09:00 AM VA-TOBACCO USER SOME DAYS [place] Apr 30, 2020 10:39 AM VA-TOBACCO FORMER USER [place] Apr 30, 2020 10:39 AM VA-TOBACCO QUIT 5 TO < 15 YRS [place] Dec 21, 2018 03:15 PM VA-TOBACCO FORMER USER [place] Dec 21, 2018 03:15 PM VA-TOBACCO QUIT 1 TO < 5 YRS [place] Nov 24, 2017 09:54 AM CURRENT SMOKER cigarets [place] Nov 24, 2017 09:54 AM V1-PT READY TO SHARAN T TOBACCO USE [place] Mar 25, 2017 01:57 PM CURRENT SMOKER down to 10 cigarettes daily [place] Mar 25, 2017 01:57 PM V1-PT DECLINES TOB ACCO CESSATION MEDS [place] Mar 25, 2017 01:57 PM V1-PT READY TO SHARAN T TOBACCO USE [place] March 04, 2017 02:38 PM CURRENT SMOKER advise stopm [place] Jul 22, 2016 09:29 AM V1-PT NOT INTEREST ED IN QUIT TOBACCO USE [place] Nov 21, 2015 09:21 AM CURRENT SMOKER half a pack a day [place] Nov 21, 2015 09:21 AM V1-PT NOT INTEREST ED IN QUIT TOBACCO USE [place] Nov 23, 2014 08:51 AM CURRENT SMOKER [facility] Nov 23, 2014 08:51 AM V1-PT READY TO SHARAN T TOBACCO USE [place] Dec 16, 2013 02:19 PM CURRENT SMOKER 3/4 pack a day [place] Dec 16, 2013 02:19 PM V1-PT THINKING ABO UT QUIT TOBACCO USE [place] Advance Directives: All historical and current Section Date Range: From patient's date of to the date document was created. This section includes ALL of a patient's completed or amended [place] Advance and Rescinded Directives. The entries below [...] URGENCY: STATUS: COMPLETED Data: 64year old MALE reports to Primary Care clinic for Walk-In [...] are: Remote Allergy Data FACILITY ALLERGY/ADR -------- 689^[facility]^[id number] Current Medications from Active Med list include: [...] MOUTH ONCE DAILY 17 Total Medications Action: Choudrant reports to sick call stating he was [...] Whole Health Documentation DUE NOW /karlene/ CRISTINA CABZEAS RN PRIMARY CARE RN Signed: 07/28/2024 10:23 CRISTINA CABEZAS [place]
--- OUTSIDE RECORDS SUMMARY | 2025-02-01 16:04 | XMS_ITS | Encounter Summary ---
Author Name [facility] [place] [facility] [place] [facility] [place] Address [address] [place] [address] Care Team Providers Care Manager Urology Name Role Phone AUSTIN BALDWIN Primary [facility] Insurance Providers: All historical and current [...] Relationship to Policy Lomas PATRICIO MULLIGAN-ESME R [place] SPECIAL CLASS PATRICIO ERICKSON Nov 14, 2024 PATRICIO MULLIGAN [id number] Dougie RIVERA PATIENT [facility] MEDICAID MEDICAID MEDIC AID Oct 05, 2016 MEDICAI D [id number] NICOLE,A NALLELY PATIENT MEDICAID MEDICAID [facility] Oct 05, 2014 MEDICAI D [id number] Dougie RIVERA NALLELY PATIENT MEDICARE (WNR) MEDICARE (M) PART A May 05, 2018 PART A [id number] [facility] [phone] [id number] Dougie RIVERA NALLELY PATIENT MEDICARE (WNR) MEDICARE (M) PART B May 05, 2018 PART B [id number] Dougie RIVERA PATIENT Selected Encounter This section includes the information on record at [place] for the Encounter. Date/Time Encounter Type Encounter Description Reason Provider Source February 09, 2024 09:00 AM PSYTX W PT 45 MINUTES PRIMARY CARE/MEDICINE ICD-10-CM Z72.0 Tobacco use SCARLET LUGO Nancy Encounter Template Text not used by [place] Assessments - Encounter Diagnoses This section includes the primary and secondary diagnoses documented for the Encounter. Date/Time Primary/Secondary Diagnosis Diagnosis Name Provider Source February 09, 2024 11:45 AM PRIMARY Tobacco use JESSE CRUZ Plan of Treatment: Future Appointments (+ 6 months) and Future Tests (+/- 45 days) The Plan of Treatment section includes future care activities for the patient from [facility] [place] [facility] This section includes future appointments and future orders which are active, pending or scheduled. Future Appointments This section includes appointments that were scheduled to occur 6 months from the date of the Encounter, up to a maximum of 20 appointments. The data comes from all [place] treatment facilities. Appointment Date/Time Appointment Type Appointme nt Facility Name February 16, 2024 08:45 AM [facility]ULATORY - [facility]ICINE [facility] February 23, 2024 09:00 AM AMBULATORY - MEDICINE [facility] March 01, 2024 09:00 AM AM[facility]ATORY - MEDICINE [facility] Mar 08, 2024 09:00 AM [facility]ATORY - MEDICINE [facility] Mar 08, 2024 09:30 AM [facility] Mar 11, 2024 02:00 PM AMBULATORY - MEDICINE [place] [facility] [place] [facility] Mar 15, 2024 09:00 AM [facility] Mar 16, 2024 09:00 AM [facility] [place] [facility] [place] [facility] Mar 16, 2024 11:00 AM [facility] Mar 22, 2024 09:00 AM [facility] Mar 24, 2024 09:00 AM AM[facility]ULATORY - MEDICINE [place] [facility] [place] [facility] Mar 31, 2024 10:00 AM AMBULATORY - NONE [place] [facility] [place] [facility] Apr 05, 2024 10:00 AM [facility] Apr 05, 2024 01:30 PM [facility] Apr 19, 2024 10:30 AM AM[facility]ULATORY - MEDICINE [place] [facility] [place] [facility] Apr 26, 2024 10:00 AM AMBULATORY - MEDICINE [facility] Apr 27, 2024 10:30 AM [facility] May 03, 2024 09:00 AM AMBULATORY - MEDICINE [facility] May 10, 2024 01:00 PM [facility] May 20, 2024 09:00 AM AMBULATORY - MEDICINE [facility] Active, Pending, and Scheduled Orders This section includes a listing of several types of active, pending, and scheduled orders, including clinic medications orders, diagnostic test orders, procedure orders and consult orders; where the start date of the order is 45 days before the date of the Encounter or 45 days after the date of theEncounter. The data comes from all [place] treatment facilities. Test Date/Time Test Type Test Details Facility Name February 22, 2024 12:00 AM Laboratory - Chemi stry Order HEMOGLOBIN A1C PANEL BLOOD (LAV-BLOOD) [facility] Lab Results: +/- 30 days of the encounter This section includes the Chemistry and Hematology Lab Results on record with [place] for the patient. Radiology Reports and Pathology Reports are provided separately, in subsequent sections. Lab Results This section contains the Chemistry/Hematology Results that were resulted 30 days before or 30 daysafter the date of the Encounter. Date/Time Source Result Type Result - Unit Interpretation Reference Range Specimen Type Comment February 23, 2024 09:10 AM [facility] FERRITIN SERUM Specimen Type: SERUM No comment entered. Ordering Provider: AUSTIN BALDWIN Report Released Date/Time: Dec 22, 2023 10:15 AM Reporting Lab: [address] [address] Performing Lab: [address] [address] FERRITIN 46 ng/mL 20-300 February 23, 2024 09:10 AM [facility] HEMOGLOBIN A1C PANEL BLOOD Specimen T ype: [...] Dec 22, 2023 10:15 AM Reporting Lab: [place] [facility] [place] [facility] [address] [address] Performing Lab: [place] [facility] [place] [facility] [address] [address] HEMOGLOBIN A1C 6.4 H 4.0-5.6 February 23, 2024 09:10 AM [facility] MICROALBUMIN CREATININE RATIO PANEL URINE Specimen Type: URINE No comment entered. Ordering Provider: AUSTIN BALDWIN Report Released Date/Time: Dec 22, 2023 10:15 AM Reporting Lab: [place] [facility] [place] [facility] [address] [address] Performing Lab: [place] [facility] [place] [place] [address] [address] MICROALBUMIN/CREATININE RATIO 22.3 mg/g 0-29.9 MICROALBUMIN,QUANTITATIVE 2.5 mg/dL RR U NAVAIL CREATININE URINE 112.32 mg/dL February 23, 2024 09:10 AM [facility] PSA SERUM Sp ecimen Type: SERUM No comment entered. Ordering Provider: AUSTIN BALDWIN Report Released Date/Time: Dec 22, 2023 10:15 AM Reporting Lab: [place] [facility] [place] [facility] [address] [address] Performing Lab: [place] [facility] [place] [address] [address] PSA 0.63 ng/mL 0.00-4.00 February 23, 2024 09:10 AM [facility] URIC ACID SERUM Sp ecimen Type: SERUM No comment entered. Ordering Provider: AUSTIN BALDWIN Report Released Date/Time: Dec 22, 2023 10:15 AM Reporting [facility] [place] [facility] [address] [address] Performing Lab: [place] [facility] [address] [address] URIC ACID 4.8 mg/dL 3.5-7.2 February 23, 2024 09:10 AM [facility] TSH SERUM Sp ecimen Type: SERUM No comment entered. Ordering Provider: AUSTIN BALDWIN Report Released Date/Time: Dec 22, 2023 10:15 AM Reporting [facility]: [facility] [address] [address] Performing Lab: [facility] [address] [address] TSH 1.89 u[IU]/mL 0.35-5.00 February 23, 2024 09:10 AM [facility] CBC AND DIFF (AUTO) BLOOD Specimen Ty pe: BLOOD No comment entered. Ordering Provider: AUSTIN BALDWIN Report Released Date/Time: Dec 22, 2023 10:15 AM Reporting Lab: [facility] [address] [address] Performing Lab: [facility] [address] [address] WBC 9.84 10*3/uL 4.50-11.00 RBC 4.93 10*6/uL 4.23-5.66 HGB 15.0 g/dL 12.8-17 HCT 43.5 39.2-50.4 MCV 88.2 fL 82-99 MCHC 34.5 g/dL 30.8-35.1 PLT 254 10*3/uL 140-360 RDW-CV 13.0 12.0-16.0 [place], Abs 0.84 10*3/uL 0.30-1.10 MCH 30.4 pg 26.2-32.6 Neut % 69.6 43.7-75.8 Lymph % 18.7 14.0-42.3 [place] % 8.5 5.1-13.7 Eos % 1.7 0.4-6.8 Baso % 0.9 0.1-2.0 Neut, Abs 6.84 10*3/uL 2.20-7.60 Lymph, Abs 1.84 10*3/uL 1.00-3.20 Eos, Abs 0.17 10*3/uL 0.03-0.44 Baso, Abs 0.09 10*3/uL 0.01-0.13 Immature Gran % 0.6 0.0-0.7 Immature Gran, Abs 0.06 10*3/uL 0.00-0.0 6 February 23, 2024 09:10 AM [facility] LIVER FUNCTION SERUM Specimen Type: SERUM No comment entered. Ordering Provider: AUSTIN BALDWIN Report Released Date/Time: Dec 22, 2023 10:15 AM Reporting Lab: [address] [address] Performing Lab: [address] [address] PROTEIN,TOTAL 6.3 g/dL 6.0-8.3 ALBUMIN 3.7 g/dL 3.5-5.0 ALKALINE PHOSPHATASE 29 U/L L 40-150 AST 45 U/L H 5-34 ALT 54 U/L BILIRUBIN, TOTAL 0.3 mg/dL 0.2-1.2 February 23, 2024 09:10 AM [facility] URINALYSIS URINE S pecimen Type: URINE Comment: If Glucose = >500 and Ketones are positive, please alert the Physician. Ordering Provider: AUSTIN BALDWIN Report Released Date/Time: Dec 22, 2023 10:15 AM Reporting Lab: [address] [address] Performing Lab: [address] [address] UA COLOR Light-Yellow Yellow UA APPEARANCE Clear Clear UA GLUCOSE NEGATIVE mg/dL Negative UA KETONES NEGATIVE mg/dL Negative UA BLOOD NEGATIVE mg/dL Negative UA PROTEIN NEGATIVE mg/dL Negative UA NITRITE NEGATIVE mg/dL Negative UA BILIRUBIN NEGATIVE mg/dL Negative UA SPECIFIC GRAVITY 1.019 1.016-1.022 UA pH 6.5 5.0-9.0 UA UROBILINOGEN <2.0 mg/dL <2.0 UA LEUKOCYTE NEGATIVE Negative February 23, 2024 09:10 AM [facility] BASIC METABOLIC PANEL (fasting) SERUM Specimen Type: SERUM No comment entered. Ordering Provider: AUSTIN BALDWIN Report Released Date/Time: Dec 22, 2023 10:15 AM Reporting Lab: [address] [address] Performing Lab: [address] [address] UREA NITROGEN 11 mg/dL 7-25 GLUCOSE 122 mg/dL H 65-100 SODIUM 140 mmol/L 135-145 POTASSIUM 4.4 mmol/L 3.5-5.0 CHLORIDE 107 mmol/L 100-110 CO2 24 meq/L 20-30 CREATININE, Serum 1.14 mg/dL 0.50-1.40 eGFR(CKD-EPI 2020) 72 mL/min >60 February 23, 2024 09:10 AM [facility] LIPID PANEL FASTING SERUM Specimen Ty pe: SERUM No comment entered. Ordering Provider: AUSTIN BALDWIN Report Released Date/Time: Dec 22, 2023 10:15 AM Reporting Lab: [facility] [employer] [address] Performing Lab: [address] [address] CHOLESTEROL 145 mg/dL TRIGLYCERIDE 241 mg/dL H 0-150 LDL calculated 59 mg/dL 0-129 CHOL/HDL 3.8 HDL CHOLESTEROL 38 mg/dL L 40-60 February 23, 2024 09:08 AM [facility] CREATININE (eGFR 2020) SERUM Specimen Type: SERUM Comment: *LIPID PANEL FASTING Not Performed: February 23, 2024@09:18 by [id number] *WAREHOUSE UNLOADER Reason: duplicate Ordering Provider: SWAPNIL SCHOFIELD Report Released Date/Time: Feb 01, 2024 01:14 PM Reporting Lab: [facility] [address] [address] Performing Lab: [address] [address] CREATININE, Serum 1.13 mg/dL 0.50-1.40 eGFR(CKD-EPI 2020) 73 mL/min >60 Social History: Smoking Status (Most current) and Tobacco Use (All prior to encounter date) This section includes the most current, and the historical, smoking and tobacco- related health factors from the [place] facility where the Encounter took place. Current Smoking Status This section includes the most current smoking, or tobacco-related health factor, from the [place] facility where the Encounter took place. Date/Time Current Smoking Status Comment Michela seals Dec 16, 2023 10:00 AM [place]-TOBACCO USER EVERY DAY [facility] Tobacco Use History This section includes a history of the smoking, or tobacco-related health factors, that were collected on or before the date of the Encounter. The data comes from the [place] facility where the Encounter took place. Date/Time Smoking Status/Tobacco Use Comment F acility Dec 16, 2023 10:00 AM VA-TOBACCO USE > 1 5 LESS THAN 30 YEARS [facility] Dec 16, 2023 10:00 AM VA-TOBACCO USE 30 YEARS OR MORE [facility] Dec 16, 2023 10:00 AM VA-TOBACCO USE ADVICE [facility] Dec 16, 2023 10:00 AM VA-TOBACCO USE BRAND LEADER NO [facility] Dec 16, 2023 10:00 AM VA-TOBACCO USE BRAND LEADER YES [facility] Dec 16, 2023 10:00 AM VA-TOBACCO USE MED NO [facility] Dec 16, 2023 10:00 AM VA-TOBACCO USE MED YES [facility] Dec 16, 2023 10:00 AM VA-TOBACCO [place] [address] [facility] Dec 16, 2023 10:00 AM VA-TOBACCO USER EVERY DAY [facility] Jan 13, 2023 02:00 PM VA-TOBACCO USE 1 T O < 5 YEARS [facility] Jan 13, 2023 02:00 PM VA-TOBACCO USE ADVICE [facility] Jan 13, 2023 02:00 PM VA-TOBACCO USE BRAND LEADER NO [facility] Jan 13, 2023 02:00 PM VA-TOBACCO USE MED NO [facility] Jan 13, 2023 02:00 PM VA-TOBACCO USE WI 30 MIN OF WAKEUP [facility] Jan 13, 2023 02:00 PM VA-TOBACCO USER EVERY DAY [facility] Jul 03, 2022 09:00 AM VA-TOBACCO FORMER USER [facility] Jul 03, 2022 09:00 AM VA-TOBACCO QUIT 5 TO < 15 YRS [facility] Jul 04, 2021 09:00 AM VA-TOBACCO USE > 1 5 LESS THAN 30 YEARS [facility] Jul 04, 2021 09:00 AM VA-TOBACCO USE ADVICE [facility] Jul 04, 2021 09:00 AM VA-TOBACCO USE BRAND LEADER NO [facility] Jul 04, 2021 09:00 AM VA-TOBACCO USE MED NO [facility] Jul 04, 2021 09:00 AM VA-TOBACCO [place] [address] [facility] Jul 04, 2021 09:00 AM VA-TOBACCO USER SOME DAYS [facility] Apr 30, 2020 10:39 AM VA-TOBACCO FORMER USER [facility] Apr 30, 2020 10:39 AM VA-TOBACCO QUIT 5 TO < 15 YRS [facility] Dec 21, 2018 03:15 PM VA-TOBACCO FORMER USER [facility] Dec 21, 2018 03:15 PM VA-TOBACCO QUIT 1 TO < 5 YRS [facility] Nov 24, 2017 09:54 AM CURRENT SMOKER cigarets [facility] Nov 24, 2017 09:54 AM V1-PT READY TO SHARAN T TOBACCO USE [facility] Mar 25, 2017 01:57 PM CURRENT SMOKER down to 10 cigarettes daily [facility] Mar 25, 2017 01:57 PM V1-PT DECLINES TOB ACCO CESSATION MEDS [facility] Mar 25, 2017 01:57 PM V1-PT READY TO SHARAN T TOBACCO USE [facility] March 04, 2017 02:38 PM CURRENT SMOKER advise stopm [facility] Jul 22, 2016 09:29 AM V1-PT NOT INTEREST ED IN QUIT TOBACCO USE [facility] Nov 21, 2015 09:21 AM CURRENT SMOKER half a pack a day [facility] Nov 21, 2015 09:21 AM V1-PT NOT INTEREST ED IN QUIT TOBACCO USE [facility] Nov 23, 2014 08:51 AM CURRENT SMOKER [facility] Nov 23, 2014 08:51 AM V1-PT READY TO SHARAN T TOBACCO USE [facility] Dec 16, 2013 02:19 PM CURRENT SMOKER 3/4 pack a day [facility] Dec 16, 2013 02:19 PM V1-PT THINKING ABO UT QUIT TOBACCO USE [facility] Advance Directives: All historical and current Section Date Range: From patient's date of to the date document was created. This section includes ALL of a patient's completed or amended [place] Advance and Rescinded Directives. The entries below indicate that a directive exists for the patient, but an actual copy is not included with this document. The data comes from all [place] facilities. Date Advance Directives Provider Source Dec 12, 2014 ADVANCE DIRECTIVE KATRIN GREEN Encounter Notes: All associated encounter notes This section contains the clinical notes associated to the Encounter. Date/Time Encounter Note(s) Provider Source February 10, 2024 07:23 AM ADDENDUM: LOCAL TITLE: Addendum STANDARD TITLE: ADDENDUM DATE OF NOTE: FEBRUARY 10, 2024@07:23:18 ENTRY DATE: FEBRUARY 10, 2024@07:23:19 AUTHOR: LUCINA LUGO EXP COSIGNER: URGENCY: STATUS: COMPLETED alerting amsa to rtc in chart. 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 REASON FOR ENCOUNTER: attended first session for tobacco cessation. SUMMARY OF SESSION: Current Session focused on the Warren's reasons for Quitting tobacco, physical and mental negative consequences related to tobacco, and the positive effects on mind and body when quitting smoking. Warren and clinician reviewed Warren's interest in Chantix and noted this is something he will need to ask his current psychiatrist about, based on his currently prescribed psychiatric medications. We also noted other options (e.g., nicotine replacement) if Chantix is not a good fit for the Warren. was actively engaged during today's session and had filled out information in his workbook before our session. He was open to his cigarettes out for the day to help increase his awareness of his usage. INTERVENTIONS: Veterans wrote on an index card their reasons for quitting tobacco and were encouraged to keep this with them and review it 3-5 times a day. Psychoeducation regarding the effects of smoking was presented. MENTAL STATUS: was oriented x3, mental status was WNL. No behavioral, perceptual or thought disturbances reported or observed. No concerns. CURRENT IMPRESSION OF LETHALITY RISK / PLAN FOR RISK MANAGEMENT: No thoughts, intent or plan to harm self or others was reported. No imminent risk reported. IMPRESSIONS: is currently motivated to quit tobacco. PLAN: Next session is on 02/15 at 9 am via F2F; RTC placed. to decrease his daily cigarette usage from 10 to 8. plans to follow up with his psychiatrist about Chantix and if it would be a good fit for the . SUPERVISION: This case is supervised by Lucina Lugo, Ph.D., licensed psychologist. Diagnosis, treatment plan, and response to care are discussed in a standard weekly, 60 minute individual supervision meeting. /karlene/ JESSE CRUZ MA Scraper Loader Operator Signed: 02/09/2024 11:45 /karlene/ Lucina Lugo, PhD Clinical Psychologist Cosigned: 02/10/2024 07:23 LUCINA LUGO [facility] February 09, 2024 11:34 AM SMOKING CESSATION NOTE: LOCAL TITLE: TOBACCO CESSATION NOTE STANDARD TITLE: SMOKING CESSATION NOTE DATE OF NOTE: FEBRUARY 09, 2024@11:34 ENTRY DATE: FEBRUARY 09, 2024@11:34:35 AUTHOR: JESSE CRUZ EXP COSIGNER: LUCINA LUGO URGENCY: STATUS: COMPLETED TOBACCO CESSATION NOTE Has ADDENDA SMOKING CESSATION NOTE DATE: 02/09/24 DURATION OF COUNSELIN min DX: Tobacco Use Disorder, mild/moderate *Warren provided verbal and written consent to audio/visual 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 REASON FOR ENCOUNTER: attended first session for tobacco cessation. SUMMARY OF SESSION: Current Session focused on the 's reasons for Quitting tobacco, physical and mental negative consequences related to tobacco, and the positive effects on mind and body when quitting smoking. Warren and clinician reviewed Warren's interest in Chantix and noted this is something he will need to ask his current psychiatrist about, based on his currently prescribed psychiatric medications. We also noted other options (e.g., nicotine replacement) if Chantix is not a good fit for the . Warren was actively engaged during today's session and had filled out information in his workbook before our session. He was open to his cigarettes out for the day to help increase his awareness of his usage. INTERVENTIONS: Veterans wrote on an index card their reasons for quitting tobacco and were encouraged to keep this with them and review it 3-5 times a day. Psychoeducation regarding the effects of smoking was presented. MENTAL STATUS: Warren was oriented x3, mental status was WNL. No behavioral, perceptual or thought disturbances reported or observed. No concerns. CURRENT IMPRESSION OF LETHALITY RISK / PLAN FOR RISK MANAGEMENT: No thoughts, intent or plan to harm self or others was reported. No imminent risk reported. IMPRESSIONS: Warren is currently motivated to quit tobacco. PLAN: Next session is on 02/15 at 9 am via F2F; RTC placed. Warren to decrease his daily cigarette usage from 10 to 8. Warren plans to follow up with his psychiatrist about Chantix and if it would be a good fit for the Warren. SUPERVISION: This case is supervised by Lucina Lugo, Ph.D., licensed psychologist. Diagnosis, treatment plan, and response to care are discussed in a standard weekly, 60 minute individual supervision meeting. /karlene/ JESSE CRUZ MA Scraper Loader Operator Signed: 02/09/2024 11:45 /karlene/ Lucina Lugo, PhD Clinical Psychologist Cosigned: 02/10/2024 07:23 02/10/2024 ADDENDUM STATUS: COMPLETED alerting amsa to rtc in chart. F2F /karlene/ Lucina Lugo, PhD Clinical Psychologist Signed: 02/10/2024 07:23 Receipt Acknowledged By: * AWAITING SIGNATURE * JERAMY MASON,JESSE TABOR
--- OUTSIDE RECORDS SUMMARY | 2025-02-01 16:04 | XMS_ITS ---
Author Name [facility] [place] [facility] [place] [facility] [facility] [place] Address [address] [place] [address] Care Team Providers Care Library Circulation Technician Name Role Phone AUSTIN BALDWIN Primary Care [...] Relationship to Policy Lomas PATRICIO MULLIGAN-WN R [place] SPECIAL CLASS PATRICIO ERICKSON Nov 14, 2024 PATRICIO MULLIGAN [id number] NICOLE,A NALLELY PATIENT [facility] MEDICAID MEDICAID MEDIC AID Oct 05, 2016 MEDICAI D [id number] NICOLE,A NALLELY PATIENT MEDICAID [facility]ID [id number] Oct 05, 2014 MEDICAI D [id number] NICOLE,Dougie NALLELY PATIENT MEDICARE (WNR) MEDICARE (M) PART A May 05, 2018 PART A [id number] Dougie RIVERA NALLELY PATIENT MEDICARE (WNR) MEDICARE (M) PART B May 05, 2018 PART B [id number] Dougie RIVERA PATIENT Selected Encounter This section includes the information on record at [place] for the Encounter. Date/Time Encounter Type Encounter Description Reason Provider Source Oct 18, 2024 08:30 AM OFFICE O/P EST MOD 30 MIN RENAL/NEPHROL(EXC EPT DIALYSIS) ICD-10-CM N18.30 Chronic kidney disease, stage 3 unspecified SASHA SANDERS [facility] Encounter Template Text not used by [place] Assessments - Encounter Diagnoses This section includes the primary and secondary diagnoses documented for the Encounter. Date/Time Primary/Secondary Diagnosis Diagnosis Name Provider Source Oct 19, 2024 11:09 AM PRIMARY Chronic kidney disease, stage 3 unspecified SANDERSJENNIFER PEDERSEN DAMIAN [facility] Oct 19, 2024 11:09 AM SECONDARY Essential (primary) hypertension JENNIFER SANDERS DAMIAN A [place] [facility] [place] [facility] Oct 19, 2024 11:09 AM SECONDARY Type 2 diabetes mellitus without complications MARILYNJENNIFER SALGADO Dougie [facility] Plan of Treatment: Future Appointments (+ 6 months) and Future Tests (+/- 45 days) The Plan of Treatment section includes future care activities for the [facility] [place] [facility] This section includes future appointments and future orders which are active, pending or scheduled. Future Appointments This section includes appointments that were scheduled to occur 6 months from the date of the Encounter, up to a maximum of 20 appointments. The data comes from all [place] treatment facilities. Appointment Date/Time Appointment Type Appointme nt Facility Name Nov 07, 2024 01:15 PM AMBULATORY - MEDICINE [place] [facility] [place] [facility] Nov 08, 2024 10:00 AM AMBULATORY - MEDICINE [place] [facility] [place] [facility] Nov 15, 2024 08:30 AM [facility]ATORY [facility]ICINE [facility] Dec 05, 2024 02:15 PM AMBULATORY - MEDICINE [place] [facility] [facility] Dec 08, 2024 09:00 AM AMBULATORY - MEDICINE [place] [facility] [facility] Dec 19, 2024 09:30 AM [facility] Dec 19, 2024 10:00 AM [facility]ORY [facility] Dec 28, 2024 03:00 PM AMBULATORY - MEDICINE [place] [facility] [facility] Jan 09, 2025 01:30 PM AMBULATORY - MEDICINE [place] [facility] [facility] Jan 12, 2025 09:00 AM AMBULATORY - MEDICINE [facility] Jan 26, 2025 09:30 AM AMBULATORY - MEDICINE [place] [facility] [facility] February 08, 2025 01:00 PM AMBULATORY - MEDICINE [place] [facility] [place] [facility] February 13, 2025 01:00 PM AMBULATORY - MEDICINE [facility] Mar 14, 2025 08:30 AM AMBULATORY - MEDICINE [place] [facility] [facility] Mar 14, 2025 09:00 AM AMBULATORY - MEDICINE [place] [facility] [place] [facility] Active, Pending, and Scheduled Orders This section includes a listing of several types of active, pending, and scheduled orders, including clinic medications orders, diagnostic test orders, procedure orders and consult orders; where the start date of the order is 45 days before the date of the Encounter or 45 days after the date of theEncounter. The data comes from all [place] treatment facilities. Test Date/Time Test Type Test Details Facility Name Nov 16, 2024 12:00 AM Laboratory - Chemi stry Order HEMOGLOBIN A1C PANEL BLOOD (LAV-BLOOD) [facility] Nov 16, 2024 12:00 AM Laboratory - Chemi stry Order TSH BLOOD (SST-SERUM) [facility] Nov 16, 2024 12:00 AM Laboratory - Chemi stry Order FERRITIN BLOOD (SST-SERUM) [facility] Nov 16, 2024 12:00 AM Laboratory - Chemi stry Order PSA BLOOD (SST-SERUM) [facility] Nov 16, 2024 12:00 AM Laboratory - Chemi stry Order LIPASE BLOOD (SST-SERUM) [facility] Nov 16, 2024 12:00 AM Laboratory - Chemi stry Order MICROALBUMIN CREATININE RATIO PANEL URINE (RANDOM) [facility] Nov 16, 2024 12:00 AM Laboratory - Chemi stry Order URINALYSIS URINE [facility] Nov 16, 2024 12:00 AM Laboratory - Chemi stry Order AMYLASE BLOOD (SST-SERUM) [facility] Nov 16, 2024 12:00 AM Laboratory - Chemi stry Order BASIC METABOLIC PANEL (fasting) BLOOD (SST-SERUM) [facility] Nov 16, 2024 12:00 AM Laboratory - Chemi stry Order LIVER FUNCTION BLOOD (SST-SERUM) [facility] Nov 16, 2024 12:00 AM Laboratory - Chemi stry Order LIPID PANEL FASTING BLOOD (SST-SERUM) [facility] Nov 16, 2024 12:00 AM Laboratory - Chemi stry Order CALCIUM BLOOD (SST-SERUM) [facility] Nov 16, 2024 12:00 AM Laboratory - Chemi stry Order URIC ACID BLOOD (SST-SERUM) [facility] Nov 16, 2024 12:00 AM Laboratory - Chemi stry Order VITAMIN D (25-OH) BLOOD (SST-SERUM) [facility] Nov 16, 2024 12:00 AM Laboratory - Chemi stry Order CBC AND DIFF (AUTO) BLOOD (LAV-BLOOD) [facility] Lab Results: +/- 30 days of [...] Type Comment Sep 20, 2024 09:25 AM [facility] MICROALBUMIN CREATININE RATIO PANEL URINE Spe cimen Type: URINE No comment entered. Ordering Provider: TAMI SANDERS Report Released Date/Time: Apr 19, 2024 10:52 AM Reporting Lab: [facility] [address] [address] Performing [facility]: [facility] [address] MICROALBUMIN/CREATININE RATIO 12.4 mg/g 0-29.9 MICROALBUMIN,QUANTITATIVE 2.3 mg/dL RR U NAVAIL CREATININE URINE 186.00 mg/dL Sep 20, 2024 09:25 AM [facility] FERRITIN SERUM Specimen Type: SERUM No comment entered. Ordering Provider: ALFREDO SANDERS Report Released Date/Time: Apr 19, 2024 10:52 AM Reporting [facility]: [facility] [address] Performing Lab: [facility] [address] [address] FERRITIN 248 ng/mL 20-300 Sep 20, 2024 09:25 AM [facility] BASIC METABOLIC PANEL (non-fasting) SERUM Spe cimen Type: SERUM No comment entered. Ordering Provider: ALFREDO SANDERS Report Released Date/Time: Apr 19, 2024 10:52 AM Reporting Lab: [address] [address] Performing Lab: [address] [address] UREA NITROGEN 7 mg/dL 7-25 GLUCOSE 115 mg/dL H 65-100 SODIUM 140 mmol/L 135-145 POTASSIUM 4.1 mmol/L 3.5-5.0 CHLORIDE 107 mmol/L 100-110 CO2 22 meq/L 20-30 CREATININE, Serum 1.07 mg/dL 0.50-1.40 eGFR(CKD-EPI 2020) 78 mL/min >60 Sep 20, 2024 09:25 AM [facility] IRON & TIBC PANEL SERUM Specimen Type: SERUM No comment entered. Ordering Provider: ALFREDO SANDERS Report Released Date/Time: Apr 19, 2024 10:52 AM Reporting Lab: [address] [address] Performing Lab: [address] [address] TIBC 352 ug/dL 204-475 IRON 60 ug/dL 40-160 Transferrin Saturation 17.0 L 20.0-50.0 Transferrin (TRF) 267 mg/dL 200-360 Sep 20, 2024 09:25 AM [facility] CBC BLOOD Specimen Type: BLOOD No comment entered. Ordering Provider: ALFREDO SANDERS Report Released Date/Time: Apr 19, 2024 10:52 AM Reporting Lab: [address] [address] Performing Lab: [address] [address] WBC 7.98 10*3/uL 4.50-11.00 RBC 4.46 10*6/uL 4.23-5.66 HGB 13.1 g/dL 12.8-17 HCT 37.7 L 39.2-50.4 MCV 84.5 fL 82-99 MCHC 34.7 g/dL 30.8-35.1 PLT 280 10*3/uL 140-360 RDW-CV 13.9 12.0-16.0 MCH 29.4 pg 26.2-32.6 Sep 19, 2024 08:34 AM [facility] HEMOGLOBIN A1C PANEL BLOOD Specimen Type: [...] Jul 29, 2024 03:01 PM Reporting Lab: [facility] [address] [address] Performing Lab: [facility] [address] [address] HEMOGLOBIN A1C 5.7 H 4.0-5.6 Sep 19, 2024 08:34 AM [facility] CREATININE (eGFR 2020) SERUM Specimen Type: S CRYSTAL No comment entered. Ordering Provider: SWAPNIL SCHOFIELD Report Released Date/Time: Jul 29, 2024 03:01 PM Reporting Lab: [facility] [address] [address] Performing Lab: [address] [address] CREATININE, Serum 1.12 mg/dL 0.50-1.40 eGFR(CKD-EPI 2020) 74 mL/min >60 Vital Signs: All taken on the encounter date This section contains inpatient and outpatient Vital Signs collected on the date of the Encounter. Date/Time Temperature Pulse Blood Pressure Respiratory Rate SP02 Pain Height Weight Body Mass Index Source Oct 18, 2024 08:40 AM 97.3 78 120/71 18 96 0 231 35 [place] [facility] Advance Directives: All historical and current Section Date Range: From patient's date of to the date document was created. This section includes ALL of a patient's completed or amended [place] Advance and Rescinded Directives. The entries below indicate that a directive exists for the patient, but an actual copy is not included with this document. The data comes from all [place] facilities. Date Advance Directives Provider Source Dec [...] Disease Stage 4 History:64 year old robe van a hisory of hypertension, hypertriglyceridemia and hyperglycemia [...] Ext:no edema; Vascular: lower leg DP artery + bilaterally Assessment and Plans: Chronic Kidney Disease [...] He will continue fenofibrate, fish oil and [place] 3. He is also encouraged to adhere [...] this [facility] (local) and dispensed from another [place] or [facility] facility (remote) as well as [...] or non-VA provider. /karlene/ ALFREDO SANDERS M.D. CHEMISTRY TECHNOLOGIST HAND INSPECTOR Signed: 10/18/2024 09:09 ALFREDO SANDERS [place] [facility]
--- OUTSIDE RECORDS SUMMARY | 2025-02-01 16:05 | XMS_ITS | Encounter Summary ---
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 Role Phone AUSTIN BALDWIN Primary [facility] Insurance Providers: All historical [...] Relationship to Policy Lomas PATRICIO MULLIGAN-ESME R [place] SPECIAL CLASS PATRICIO ERICKSON Nov 14, 2024 PATRICIO MULLIGAN [id number] Dougie RIVERA PATIENT [facility] MEDICAID MEDICAID MEDIC AID Oct 05, 2016 MEDICAI D [id number] NICOLE,A NALLELY PATIENT MEDICAID MEDICAID [facility] STAND BEATRICE Oct 05, 2014 MEDICAI D [id number] Dougie RIVERA NALLELY PATIENT MEDICARE (WNR) MEDICARE (M) PART A May 05, 2018 PART A [id number] [facility] [phone] [id number] Dougie RIVERA NALLELY PATIENT MEDICARE (WNR) MEDICARE (M) PART B May 05, 2018 PART B [id number] Dougie RIVERA PATIENT Selected Encounter This section includes the information on record at [place] for the Encounter. Date/Time Encounter Type Encounter Description Reason Provider Source Apr 05, 2024 10:00 AM PSYTX W PT 45 MINUTES PRIMARY CARE/MEDICINE ICD-10-CM Z72.0 Tobacco use HUALOGAN IHE Encounter Template Text not used by [place] Assessments - Encounter Diagnoses This section includes the primary and secondary diagnoses documented for the Encounter. Date/Time Primary/Secondary Diagnosis Diagnosis Name Provider Source Apr 05, 2024 10:57 AM PRIMARY Tobacco use JESSE CRUZFIELD Plan of Treatment: Future Appointments (+ 6 months) and Future Tests (+/- 45 days) The Plan of Treatment section includes future care activities for the patient [facility] This section includes future appointments and future orders which are active, pending or scheduled. Future Appointments This section includes appointments that were scheduled to occur 6 months from the date of the Encounter, up to a maximum of 20 appointments. The data comes from all [place] treatment facilities. Appointment Date/Time Appointment Type Appointme nt Facility Name Apr 19, 2024 10:30 AM AMBULATORY - [place]ICINE [place] [facility] [place] [facility] Apr 26, 2024 10:00 AM [facility] Apr 27, 2024 10:30 AM AMBULATORY - MEDICINE [place] [facility] [place] [facility] May 03, 2024 09:00 AM [facility] May 10, 2024 01:00 PM AMBULATORY - MEDICINE [place] [facility] [place] [facility] May 20, 2024 09:00 AM [facility]ORY [facility] May 31, 2024 03:30 PM AMBULATORY - MEDICINE [place] [facility] [place] [facility] Jun 14, 2024 03:30 PM AMBULATORY - MEDICINE [place] [facility] [place] [facility] Jun 23, 2024 09:00 AM AMBULATORY - MEDICINE [place] [facility] [place] [facility] Jul 05, 2024 03:30 PM AMBULATORY [place] MEDICINE [place] [facility] [place] [facility] Jul 15, 2024 11:30 AM [facility] Jul 25, 2024 09:30 AM AM[facility]ULATORY - MEDICINE [place] [facility] [place] [facility] Jul 25, 2024 10:00 AM AMBULATORY - MEDICINE [place] [facility] [place] [facility] Jul 25, 2024 11:00 AM AMBULATORY - MEDICINE [place] [facility] [place] [facility] Jul 28, 2024 09:30 AM [facility] [place] [facility] [place] Jul 28, 2024 10:00 AM [facility] [place] [place] Jul 29, 2024 03:00 PM AMBULATORY - MEDICINE [place] [facility] [place] [facility] Aug 03, 2024 03:30 PM AMBULATORY - MEDICINE [place] [facility] [place] [facility] Aug 05, 2024 08:30 AM AMBULATORY - MEDICINE [place] [facility] [place] [facility] Aug 11, 2024 08:30 AM AMBULATORY - MEDICINE [facility] Active, Pending, and Scheduled Orders This section includes a listing of several types of active, pending, and scheduled orders, including clinic medications orders, diagnostic test orders, procedure orders and consult orders; where thestart date of the order is 45 days before the date of the Encounter or 45 days after the date of the Encounter. The data comes from all [place] treatment facilities. Test Date/Time Test Type Test Details Facility Name February 22, 2024 12:00 AM [facility] HEMOGLOBIN A1C PANEL BLOOD (LAV-BLOOD) [facility] Lab Results: +/- 30 days of the encounter This section includes the Chemistry and Hematology Lab Results on record with [place] for the patient. Radiology Reports and Pathology Reports are provided separately, in subsequent sections. Lab Results This section contains the Chemistry/Hematology Results that were resulted 30 days before or 30 daysafter the date of the Encounter. Date/Time Source Result Type Result - Unit Interpretation Reference Range Specimen Type Comment Apr 05, 2024 08:13 AM [facility] VITAMIN D (25-OH) SERUM Specimen Type: SERUM No comment entered. Ordering Provider: ALFREDO SANDERS Report Released Date/Time: Jan 19, 2024 04:58 PM Reporting Lab: [address] [address] Performing Lab: [address] [address] VITAMIN D (25-OH) 43 ng/mL 20-50 Apr 05, 2024 08:13 AM [facility] MICROALBUMIN CREATININE RATIO PANEL URINE Spe cimen Type: URINE No comment entered. Ordering Provider: ALFREDO SANDERS Report Released Date/Time: Jan 19, 2024 04:58 PM Reporting Lab: [facility] [address] [address] Performing Lab: [address] [address] MICROALBUMIN/CREATININE RATIO 70.7 mg/g H 0-29.9 MICROALBUMIN,QUANTITATIVE 11.0 mg/dL RR UNAVAIL CREATININE URINE 155.54 mg/dL Apr 05, 2024 08:13 AM [facility] FERRITIN SERUM Specimen Type: SERUM No comment entered. Ordering Provider: ALFREDO SANDERS Report Released Date/Time: Jan 19, 2024 04:58 PM Reporting Lab: [address] [address] Performing Lab: [address] [address] FERRITIN 33 ng/mL 20-300 Apr 05, 2024 08:13 AM [facility] BASIC METABOLIC PANEL (non-fasting) SERUM Spe cimen Type: SERUM No comment entered. Ordering Provider: ALFREDO SANDERS Report Released Date/Time: Jan 19, 2024 04:58 PM Reporting Lab: [address] [address] Performing Lab: [address] [address] UREA NITROGEN 14 mg/dL 7-25 GLUCOSE 128 mg/dL H 65-100 SODIUM 138 mmol/L 135-145 POTASSIUM 4.5 mmol/L 3.5-5.0 CHLORIDE 103 mmol/L 100-110 CO2 24 meq/L 20-30 CREATININE, Serum 1.35 mg/dL 0.50-1.40 eGFR(CKD-EPI 2020) 59 mL/min L >60 Apr 05, 2024 08:13 AM [facility] IRON & TIBC PANEL SERUM Specimen Type: SERUM No comment entered. Ordering Provider: ALFREDO SANDERS Report Released Date/Time: Jan 19, 2024 04:58 PM Reporting Lab: [facility] [address] [facility] [address] Performing Lab: [facility] [address] [facility] [address] TIBC 494 ug/dL H 204-475 IRON 110 ug/dL 40-160 Transferrin Saturation 22.3 20.0-50.0 Apr 05, 2024 08:13 AM [facility] CBC BLOOD Specimen Type: BLOOD No comment entered. Ordering Provider: ALFREDO SANDERS Report Released Date/Time: Jan 19, 2024 04:58 PM Reporting Lab: [facility] [address] [facility] [address] Performing Lab: [address] [address] WBC 8.57 10*3/uL 4.50-11.00 RBC 5.34 10*6/uL [...] and tobacco- related health factors from the [place] facility where the Encounter took place. Current Smoking Status This section includes the most current smoking, or tobacco-related health factor, from the [place] facility where the Encounter took place. Date/Time Current Smoking Status Comment Michela ity Dec 16, 2023 10:00 AM [place]-TOBACCO USER EVERY DAY [place] Tobacco Use History This section includes a history of the smoking, or tobacco-related health factors, that were collected on or before the date of the Encounter. The data comes from the [place] facility where the Encounter took place. 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 [place] Jan 13, 2023 02:00 PM VA-TOBACCO USE MED NO [place] [place] Jan 13, 2023 02:00 PM VA-TOBACCO USE [place] 30 MIN OF [place] [facility] [place] Jan 13, 2023 02:00 PM VA-TOBACCO USER EVERY DAY [facility] [place] Jul 03, 2022 09:00 AM VA-TOBACCO FORMER USER [facility] [place] Jul 03, 2022 09:00 AM VA-TOBACCO QUIT 5 TO < 15 YRS [facility] [place] Jul 04, 2021 09:00 AM VA-TOBACCO USE > 1 5 LESS THAN 30 YEARS [facility] [place] Jul 04, 2021 09:00 AM VA-TOBACCO USE ADVICE [place] Jul 04, 2021 09:00 AM 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 Jul 04, 2021 09:00 AM VA-TOBACCO USER SOME DAYS [facility] [place] Apr 30, 2020 10:39 AM VA-TOBACCO FORMER USER [place] Apr 30, 2020 10:39 AM VA-TOBACCO QUIT 5 TO < 15 YRS [facility] [place] Dec 21, 2018 03:15 PM VA-TOBACCO FORMER USER [place] [place] Dec 21, 2018 03:15 PM VA-TOBACCO QUIT 1 TO < 5 YRS [facility] [place] Nov 24, 2017 09:54 AM CURRENT SMOKER cigarets [facility] [place] Nov 24, 2017 09:54 AM V1-PT READY TO SHARAN T TOBACCO USE [facility] [place] Mar 25, 2017 01:57 PM CURRENT SMOKER down to 10 cigarettes daily [facility] [place] Mar 25, 2017 01:57 PM V1-PT DECLINES TOB ACCO CESSATION MEDS [facility] [place] Mar 25, 2017 01:57 PM V1-PT READY TO SHARAN T TOBACCO USE [place] [place] March 04, 2017 02:38 PM CURRENT SMOKER advise stopm [facility] [place] Jul 22, 2016 09:29 AM V1-PT NOT INTEREST ED IN QUIT TOBACCO USE [place] [place] Nov 21, 2015 09:21 AM CURRENT SMOKER half a pack a day [facility] [place] Nov 21, 2015 09:21 AM V1-PT NOT INTEREST ED IN QUIT TOBACCO USE [place] Nov 23, 2014 08:51 AM CURRENT SMOKER [facility] Nov 23, 2014 08:51 AM V1-PT READY TO SHARAN T TOBACCO USE [place] Dec 16, 2013 02:19 PM CURRENT SMOKER 3/4 pack a day [facility] [place] Dec 16, 2013 02:19 PM V1-PT THINKING ABO UT QUIT TOBACCO USE [place] Advance Directives: All historical and current Section Date Range: From patient's date of to the date document was created. This section includes ALL of a patient's completed or amended [place] Advance and Rescinded Directives. The entries below indicate that a directive exists for the patient, but an actual copy is not included with this document. The data comes from all [place] facilities. Date Advance Directives Provider Source Dec 12, 2014 ADVANCE DIRECTIVE KATRIN GREEN Encounter Notes: All associated encounter notes This section contains the clinical notes associated to the Encounter. Date/Time Encounter Note(s) Provider Source Apr 05, 2024 10:38 AM SMOKING CESSATION NOTE: LOCAL TITLE: TOBACCO CESSATION NOTE STANDARD TITLE: SMOKING CESSATION NOTE DATE OF NOTE: APR 05, 2024@10:38 ENTRY DATE: APR 05, 2024@10:39:15 AUTHOR: JESSE CRUZ COSIGNER: LOGAN GILLIAM URGENCY: STATUS: COMPLETED TOBACCO CESSATION NOTE Has ADDENDA DATE: 04/05/24 DURATION OF COUNSELIN min DX: Tobacco Use Disorder, mild REASON FOR ENCOUNTER: attended the 5th session for tobacco cessation. SUMMARY OF SESSION: Barnum arrived early to session and noted he continues to use Chantix as prescribed. When queried, he denied experiencing side effects of Chantix including SI, HI, negative changes in mood, or nausea and vomiting. However, reported an increase in experiencing pleasant dreams. Clinician inquired how Phyllis has been doing since his quit date of 03/29. Phyllis reported he continues to smoke 5 cigarettes daily due to psychological cravings. He noted when he feels bored he will begin to smoke again. We reviewed a list of pleasant events and Phyllis reflected on how he can fill his day with more obtainable activities. We also reviewed the ARM strategies. He denied experiencing physical cravings and noted Chantix has been working well. During our last session, Phyllis stated he began Chantix on 03/21. Clinician noted today that he has been on it for 15 days, and inquired about how ready he feels to quit. Phyllis became confused and noted it didn't feel like that long since he had been on Chantix. We reviewed the date of the prescription but Phyllis began to doubt if he had started it on 03/21. Clinician reviewed the importance of beginning Chantix 7-14 days before the anticipated quit date. Phyllis also has an appointment with his pharmacist, Dr. Newman later today to check-in about his Chantix usage. Clinician noted she would follow up with Dr. Newman to gain feedback regarding Phyllis's uncertainty of when he started Chantix and how to best use it if he is continuing to smoke. INTERVENTIONS: review of Chantix usage and psychoeducation, IA, validation, affirmation, empathetic listening. IMPRESSIONS: Phyllis continues to appear motivated to quit smoking but is having difficulty challenging psychological thoughts related to smoking, particularly when he is bored. He would likely benefit from continuing to target these thoughts and use skills he has previously learned during sessions. PLAN: 1) The last session with this chart writer will be on 04/11 at 3 pm. Phyllis will be transferring care to Dr. Hammond following this appointment. 2) Phyllis plans to see his pharmacist Dr. Newman today, clinician will consult with Dr. Newman regarding Phyllis's discrepancies with Chantix usage. 3) Phyllis plans to check his bottle of Chantix when he gets home to see if doing so can better help him determine when he officially began taking it. He plans to call and update Dr. Newman and this chart writer. 4) Will follow up with Phyllis, Dr. Hammond, and Dr. Newman regarding continued or discontinued use of Chantix if has been taking it over 14 days while continuing to smoke. While completing this note Dr. Newman responded to this chart writer's inquires about Phyllis's Chantix usage and was able to meet with Phyllis. Together they were able to confirm that he likely started Chantix around 03/21. Dr. Newman noted Phyllis may either choose a fixed quit date (ie, [...] complete abstinence by week 12) is acceptable. While with Dr. Newman, Phyllis stated he would like to set his new quit date on 04/15. SUPERVISION: This case is supervised by Derek Hammond, Ph.D., licensed psychologist. Diagnosis, treatment plan, and response to care are discussed in a standard weekly, 60 minute individual supervision meeting. Dr. Logan Gilliam is the clinical heating and blending supervisor today in Dr. Hammond's absence. *Alerting [facility]: Please see RTC, thank you! /karlene/ JESSE CRUZ MA Mortuary Operations Manager Signed: 04/05/2024 11:20 /jaya Gilliam PhD LP MST Coordinator and Staff Psychologist Cosigned: 04/05/2024 11:52 Receipt Acknowledged By: 04/11/2024 09:51 /karlene/ Derek Hammond, Clinical Psychologist 04/11/2024 09:11 /karlene/ JERAMY MASON Advanced Vice President Of Recruiting 04/05/2024 ADDENDUM STATUS: COMPLETED I have reviewed this case and concur with the clinical impressions and recommendations made by this trainee who is under my clinical supervision. The trainee's work with this Barnum is reviewed in weekly supervision, with additional supervision available as needed daily. /jaya Gilliam PhD LP MST Coordinator and Staff Psychologist Signed: 04/05/2024 11:53 JESSE CRUZ
--- OUTSIDE RECORDS SUMMARY | 2025-02-01 16:05 | XMS_ITS | Encounter Summary ---
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 Name Role Phone AUSTIN BALDWIN Primary [facility] Insurance Providers: All historical [...] Policy Lomas PATRICIO MULLIGAN-ESME R [place] SPECIAL CLASS PATRICIO ERICKSON Nov 14, 2024 PATRICIO MULLIGAN [id number] Dougie RIVERA PATIENT [facility] MEDICAID MEDICAID MEDIC AID Oct 05, 2016 MEDICAI D [id number] NICOLE,A NALLELY PATIENT MEDICAID MEDICAID [facility] Oct 05, 2014 MEDICAI D [id number] Dougie RIVERA NALLELY PATIENT MEDICARE (WNR) MEDICARE (M) PART A May 05, 2018 PART A [id number] [facility] Dougie RIVERA NALLELY PATIENT MEDICARE (WNR) MEDICARE (M) PART B May 05, 2018 PART B [id number] Dougie RIVERA PATIENT Selected Encounter This section includes the information on record at [place] for the Encounter. Date/Time Encounter Type Encounter Description Reason Provider Source May 31, 2024 03:30 PM PSYTX W PT 30 MINUTES PRIMARY CARE/MEDICINE ICD-10-CM Z72.0 Tobacco use SCARLET LUGO Nancy Encounter Template Text not used by [place] Assessments - Encounter Diagnoses This section includes the primary and secondary diagnoses documented for the Encounter. Date/Time Primary/Secondary Diagnosis Diagnosis Name Provider Source May 31, 2024 03:39 PM PRIMARY Tobacco use LUCINA LUGO [place] Plan of Treatment: Future Appointments (+ 6 months) and Future Tests (+/- 45 days) The Plan of Treatment section includes future care activities for the patient [facility] [place] [facility] This section includes future appointments and future orders which are active, pending or scheduled. Future Appointments This section includes appointments that were scheduled to occur 6 months from the date of the Encounter, up to a maximum of 20 appointments. The data comes from all [place] treatment facilities. Appointment Date/Time Appointment Type Appointme nt Facility Name Jun 14, 2024 03:30 PM AMBULATORY - MEDICINE [place] [facility] [place] [facility] Jun 23, 2024 09:00 AM AMBULATORY - MEDICINE [place] [facility] [place] [facility] Jul 05, 2024 03:30 PM AMBULATORY - MEDICINE [place] [facility] [place] [facility] Jul 15, 2024 11:30 AM AM[facility]ULATORY - MEDICINE [facility] Jul 25, 2024 09:30 AM AMBULATORY - MEDICINE [place] [facility] [place] [facility] Jul 25, 2024 10:00 AM AMBULATORY - MEDICINE [place] [facility] [place] [facility] Jul 25, 2024 11:00 AM AMBULATORY - MEDICINE [place] [facility] [place] [facility] Jul 28, 2024 09:30 AM AMBULATORY - MEDICINE [facility] Jul 28, 2024 10:00 AM AMBULATORY - MEDICINE [facility] Jul 29, 2024 03:00 PM AMBULATORY - MEDICINE [place] [facility] [place] [facility] Aug 03, 2024 03:30 PM AMBULATORY - MEDICINE [place] [facility] [place] [facility] Aug 05, 2024 08:30 AM AMBULATORY - MEDICINE [place] [facility] [place] [facility] Aug 11, 2024 08:30 AM AMBULATORY - MEDICINE [place] [facility] [place] [facility] Aug 25, 2024 09:00 AM AMBULATORY - MEDICINE [facility] [place] [facility] Sep 07, 2024 10:00 AM AMBULATORY - MEDICINE [facility] [place] [facility] Sep 07, 2024 03:00 PM AMBULATORY - MEDICINE [place] [facility] [place] [facility] Sep 12, 2024 09:00 AM [place]ORY [place]IC[place] Sep 15, 2024 08:45 AM AMBULATORY - MEDICINE [place] [facility] [place] [facility] Sep 20, 2024 09:30 AM AMBULATORY - MEDICINE [facility] Sep 20, 2024 10:30 AM AMBULATORY - MEDICINE [facility] Social History: Smoking Status (Most current) and [...] place. Date/Time Current Smoking Status Comment Facil [facility] Dec 16, 2023 10:00 AM VA-TOBACCO USER EVERY DAY [place] Tobacco Use History This section includes a history of the smoking, or tobacco-related health factors, that were collected on or before the date of the Encounter. The data comes from the [place] facility where the Encounter took place. Date/Time Smoking Status/Tobacco Use Comment F acility Dec 16, 2023 10:00 AM VA-TOBACCO USE > 1 5 LESS THAN 30 YEARS [place] Dec 16, 2023 10:00 AM VA-TOBACCO USE 30 YEARS OR MORE [place] Dec 16, 2023 10:00 AM VA-TOBACCO USE ADVICE [place] Dec 16, 2023 10:00 AM VA-TOBACCO USE NAIL SETTER NO [place] Dec 16, 2023 10:00 AM VA-TOBACCO USE NAIL SETTER YES [place] Dec 16, 2023 10:00 AM VA-TOBACCO USE MED NO [place] Dec 16, 2023 10:00 AM VA-TOBACCO USE MED YES [place] Dec 16, 2023 10:00 AM VA-TOBACCO USE WI 30 MIN OF WAKEUP [place] Dec 16, 2023 10:00 AM VA-TOBACCO USER EVERY DAY [place] Jan 13, 2023 02:00 PM VA-TOBACCO USE 1 T O < 5 YEARS [place] Jan 13, 2023 02:00 PM VA-TOBACCO USE ADVICE [place] Jan 13, 2023 02:00 PM VA-TOBACCO USE NAIL SETTER NO [place] Jan 13, 2023 02:00 PM VA-TOBACCO USE MED NO [place] Jan 13, 2023 02:00 PM VA-TOBACCO USE WI 30 MIN OF WAKEUP [place] Jan 13, 2023 02:00 PM VA-TOBACCO USER EVERY DAY [place] Jul 03, 2022 09:00 AM VA-TOBACCO FORMER USER [place] Jul 03, 2022 09:00 AM VA-TOBACCO QUIT 5 TO < 15 YRS [place] Jul 04, 2021 09:00 AM VA-TOBACCO USE > 1 5 LESS THAN 30 YEARS [place] Jul 04, 2021 09:00 AM VA-TOBACCO USE ADVICE [place] Jul 04, 2021 09:00 AM VA-TOBACCO USE NAIL SETTER NO [place] Jul 04, 2021 09:00 AM VA-TOBACCO USE MED NO [place] Jul 04, 2021 09:00 AM VA-TOBACCO USE WI 30 MIN OF [facility] Jul 04, 2021 09:00 AM VA-TOBACCO USER SOME DAYS [place] Apr 30, 2020 10:39 AM VA-TOBACCO FORMER USER [place] Apr 30, 2020 10:39 AM VA-TOBACCO QUIT 5 TO < 15 YRS [place] Dec 21, 2018 03:15 PM VA-TOBACCO FORMER USER [place] Dec 21, 2018 03:15 PM VA-TOBACCO QUIT 1 TO < 5 YRS [place] Nov 24, 2017 09:54 AM CURRENT SMOKER cigarrufina [place] Nov 24, 2017 09:54 AM V1-PT READY TO SHARAN T TOBACCO USE [place] Mar 25, 2017 01:57 PM CURRENT SMOKER down to 10 cigarettes daily [place] Mar 25, 2017 01:57 PM V1-PT DECLINES TOB ACCO CESSATION MEDS [place] Mar 25, 2017 01:57 PM V1-PT READY TO SHARAN T TOBACCO USE [place] March 04, 2017 02:38 PM CURRENT SMOKER advise stopm [place] Jul 22, 2016 09:29 AM V1-PT NOT INTEREST ED IN QUIT TOBACCO USE [place] Nov 21, 2015 09:21 AM CURRENT SMOKER half a pack a day [place] Nov 21, 2015 09:21 AM V1-PT NOT INTEREST ED IN QUIT TOBACCO USE [place] Nov 23, 2014 08:51 AM CURRENT SMOKER [facility] Nov 23, 2014 08:51 AM V1-PT READY TO SHARAN T TOBACCO USE [place] Dec 16, 2013 02:19 PM CURRENT SMOKER 3/4 pack a day [place] Dec 16, 2013 02:19 PM V1-PT THINKING ABO UT QUIT TOBACCO USE [place] Advance Directives: All historical and current Section [...] Encounter. Date/Time Encounter Note(s) Provider Source Jun 01, 2024 08:40 AM ADDENDUM: LOCAL TITLE: Addendum STANDARD TITLE: ADDENDUM DATE OF NOTE: JUN 01, 2024@08:40:15 ENTRY DATE: JUN 01, 2024@08:40:16 AUTHOR: LUCINA LUGO EXP COSIGNER: URGENCY: STATUS: COMPLETED alerting amsa to rtc in chart. please send vvc link too /es/ Lucina Lugo, PhD Clinical Psychologist Signed: 06/01/2024 08:40 Receipt Acknowledged By: 06/01/2024 10:25 /es/ JERAMY MASON Advanced Ribbon Blockmaker --- Original Document --- 05/31/24 TOBACCO CESSATION NOTE: [place] [employer] (VV) Standard Documentation VVC Clinician Resources Only: E911 (Emergency Call Relay Center): [phone] [facility] Crisis Line - 893 then press #1. M[place] Suicide Coordinator ? [phone], Ext. [phone]; Back-up Ext. [phone] [place] Police, [place], Dianelys ? [phone] Introduction: Visit is being conducted by [facility]. [place] identified with 2 identifiers: [X] Full Name [X] Date of [ ] [place] ID Card Emergency Plan: [place] confirmed and/or provided the following information in case of emergency or technology failure. PATIENT PHONE - PHONE NUMBER [CELLULAR] - Is patient phone number correct, if not, enter below: 's phone number: ANGELA RIVERA [address] [facility] [address], [place], [address] [place]'s present location and address for appointment: home [place]'s emergency contact name and phone number: chart [place] reported that location is private and safe: Yes Informed Consent: [place] informed of the risks and benefits of Telehealth video care. has the right to refuse video services. If refuses video visit, a [id number] visit will be scheduled. [place] verbalized consent for this video visit: Yes [place] provided consent for any other persons present for visit: N/A If yes, who and relationship to patient: Secure visit: Visit was locked for security and privacy:Yes Smoking Cess f/u DATE: 05/31/24 DURATION OF COUNSELIN min DX: tobacco use disorder, mod REASON FOR ENCOUNTER: [place] attended session for smoking cessation. SUMMARY OF SESSION: Current Session focused on AARM Strategy for coping with smoking triggers, coping with high risk situations, identifying and counteracting resumption thoughts, and how to cope with a smoking slip. Is smoking 1-2 cig per day. indicated that he is breaking up the cigarettes into smoking many times through the day. [place] indicated that he finds himself always thinking about cigarettes. He is doing a lot of meditating and sleeping to avoid thinking of cigarettes. [place] wants to quit as he doesn't want to spend money on it. Regarding chantix, he feels comfortable taking the medication. enjoys dreams. He does beleive he is gaining weight - discussed healthy snacking/eating as he will likely be hungrier after quitting smoking. INTERVENTIONS: Psychoeducation regarding AARM (avoiding, altering, replacing, [...] was reported. No imminent risk reported. IMPRESSIONS: [place] is taking chanitx. He is smoking 1-2 per day. Discussed that not smoking at all might be easier than smoking 1-2 per day (breaking up cigs throughout the day) as he is constantly thinking about when he can smoke again. PLAN: 1) [place] will return on 06/14/24 at 330pm via VVC 2) continue chantix [employer] COACHING SKILLS Coaching or Motivational Interviewing skills used. /es/ Lucina Lugo, PhD Clinical Psychologist Signed: 06/01/2024 08:27 LUCINA LUGO [place] May 31, 2024 03:32 PM SMOKING CESSATION NOTE: LOCAL TITLE: TOBACCO CESSATION NOTE STANDARD TITLE: SMOKING CESSATION NOTE DATE OF NOTE: MAY 31, 2024@15:32 ENTRY DATE: MAY 31, 2024@15:32:54 AUTHOR: LUCINA LUGO EXP COSIGNER: URGENCY: STATUS: COMPLETED TOBACCO CESSATION NOTE Has ADDENDA [employer] (VV) Standard Documentation VV Clinician Resources Only: E911 (Emergency Call Relay Center): [phone] [facility] Crisis Line - 679 then press #1. CWArnaud Suicide Coordinator ? [phone], Ext. [phone]; Back-up Ext. [phone] [place] Police, Dianelys [place] ? [phone] Introduction: Visit is being conducted by [employer]. [place] identified with 2 identifiers: [X] Full Name [X] Date of [ ] [facility] ID Card Emergency Plan: [place] confirmed and/or provided the following information in case of emergency or technology failure. PATIENT PHONE - PHONE NUMBER [CELLULAR] - Is patient phone number correct, if not, enter below: 's phone number: ANGELA RIVERA [address] [facility] [address], [place], [address] [place]'s present location and address for appointment: home [place]'s emergency contact name and phone number: chart [place] reported that location is private and safe: Yes Informed Consent: informed of the risks and benefits of Telehealth video care. [place] has the right to refuse video services. If refuses video visit, a [id number] visit will be scheduled. [place] verbalized consent for this video visit: Yes [place] provided consent for any other persons present for visit: N/A If yes, who and relationship to patient: Secure visit: Visit was locked for security and privacy:Yes Smoking Cess f/u DATE: 05/31/24 DURATION OF COUNSELIN min DX: tobacco use disorder, mod REASON FOR ENCOUNTER: attended session for smoking cessation. SUMMARY OF SESSION: Current Session focused on AARM Strategy for coping with smoking triggers, coping with high risk situations, identifying and counteracting resumption thoughts, and how to cope with a smoking slip. Is smoking 1-2 cig per day. [place] indicated that he is breaking up the cigarettes into smoking many times through the day. [place] indicated that he finds himself always thinking about cigarettes. He is doing a lot of meditating and sleeping to avoid thinking of cigarettes. [place] wants to quit as he doesn't want to spend money on it. Regarding chantix, he feels comfortable taking the medication. enjoys dreams. He does beleive he is gaining weight - discussed healthy snacking/eating as he will likely be hungrier after quitting smoking. INTERVENTIONS: Psychoeducation regarding AARM (avoiding, altering, replacing, [...] imminent risk reported. IMPRESSIONS: is taking chanitx. He is smoking 1-2 per day. Discussed that not smoking at all might be easier than smoking 1-2 per day (breaking up cigs throughout the day) as he is constantly thinking about when he can smoke again. PLAN: 1) will return on 06/14/24 at 330pm via VVC 2) continue chantix [employer] COACHING SKILLS Coaching or Motivational Interviewing skills used. /karlene/ Lucina Lugo PhD Clinical Psychologist Signed: 06/01/2024 08:27 06/01/2024 ADDENDUM STATUS: COMPLETED alerting amsa to rtc in chart. please send vvc link too /karlene/ Lucina Lugo PhD Clinical Psychologist Signed: 06/01/2024 08:40 Receipt Acknowledged By: * AWAITING SIGNATURE * JERAMY MASON,LUCINA TABOR
--- OUTSIDE RECORDS SUMMARY | 2025-02-01 16:05 | XMS_ITS | Encounter Summary ---
Author Name [facility] [facility] [place] Organization [facility] [place] Address [address] [place] [address] Care Team Providers Care Health Information Specialist Name Role Phone AUSTIN BALDWIN Primary Care [...] Relationship to Policy Lomas PATRICIO MULLIGAN-WN R [place] SPECIAL CLASS PATRICIO ERICKSON Nov 14, 2024 PATRICIO MULLIGAN [id number] NICOLE,A NALLELY PATIENT [facility] MEDICAID MEDICAID MEDIC AID Oct 05, 2016 MEDICAI D [id number] NICOLE,A NALLELY PATIENT MEDICAID MEDICAID [facility] STAND BEATRICE Oct 05, 2014 MEDICAI D [id number] NICOLE,Dougie NALLELY PATIENT MEDICARE (WNR) MEDICARE (M) PART A May 05, 2018 PART A [id number] Dougie RIVERA NALLELY PATIENT MEDICARE (WNR) MEDICARE (M) PART B May 05, 2018 PART B [id number] Dougie RIVERA NALLELY PATIENT Selected Encounter This section includes the information on record at [place] for the Encounter. Date/Time Encounter Type Encounter Description Reason Provider Source February 03, 2024 01:00 PM OFFICE O/P EST LOW 20 MIN CI TREATMENT ICD-10-CM R11.2 Nausea with vomiting, unspecified ARCELIAUNJN ANTHONYO PHER M IHE Encounter Template Text not used by [place] Assessments - Encounter Diagnoses This section includes the primary and secondary diagnoses documented for the Encounter. Date/Time Primary/Secondary Diagnosis Diagnosis Name Provider Source February 03, 2024 02:04 PM PRIMARY Nausea with vomiting, unspecified GAUNYA,NAVEED PHER M [place] [facility] [place] [facility] February 03, 2024 02:04 PM SECONDARY Anxiety disorder, unspecified GAUNYA,NAVEED PHER M [place] [facility] [place] [facility] February 03, 2024 02:04 PM SECONDARY Post-traumatic stress disorder, unspecified GAUNYA,NAVEED PHER M [place] [facility] [place] [facility] February 03, 2024 02:04 PM SECONDARY Tobacco use ARCELIAUNYAJNO PHER M [place] [facility] [place] [facility] Plan of Treatment: Future Appointments (+ 6 months) and Future Tests (+/- 45 days) The Plan of Treatment section includes future care activities for the patient from all [place] [facility] This section includes future appointments and future orders which are active, pending or scheduled. Future Appointments This section includes appointments that were scheduled to occur 6 months from the date of the Encounter, up to a maximum of 20 appointments. The data comes from all [place] treatment facilities. Appointment Date/Time Appointment Type Appointme nt Facility Name February 04, 2024 02:30 PM AMBULATORY - MEDICINE [place] [facility] [place] [facility] February 09, 2024 09:00 AM [facility] February 16, 2024 08:45 AM [facility] February 23, 2024 09:00 AM [facility] March 01, 2024 09:00 AM [facility] Mar 08, 2024 09:00 AM [facility] Mar 08, 2024 09:30 AM [facility] Mar 11, 2024 02:00 PM AMBULATORY - MEDICINE [place] [facility] [place] [facility] Mar 15, 2024 09:00 AM [facility] [place] [facility] [facility] [place] Mar 16, 2024 09:00 AM AM[facility]UL[facility]ICINE [place] [facility] [place] [facility] Mar 16, 2024 11:00 AM [facility] [place] [facility] [place] [place] Mar 22, 2024 09:00 AM [facility] [place] [place] Mar 24, 2024 09:00 AM [facility] Mar 31, 2024 10:00 AM AMBULATORY - NONE [facility] [place] [facility] Apr 05, 2024 10:00 AM [facility] Apr 05, 2024 01:30 PM [facility] Apr 19, 2024 10:30 AM AMBULATORY - MEDICINE [facility] [place] [facility] Apr 26, 2024 10:00 AM [facility] [place] [place] Apr 27, 2024 10:30 AM AMBULATORY [facility]ICINE [facility] May 03, 2024 09:00 AM [facility]IC[facility] Active, Pending, and Scheduled Orders This section includes a listing of several types of active, pending, and scheduled orders, including clinic medications orders, diagnostic test orders, procedure orders and consult orders; where the start date of the order is 45 days before the date of the Encounter or 45 days after the date of theEncounter. The data comes from all [place] treatment facilities. Test Date/Time Test Type Test Details Facility Name February 22, 2024 12:00 AM Laboratory - Chemi stry Order HEMOGLOBIN A1C PANEL BLOOD (LAV-BLOOD) [facility] Lab Results: +/- 30 days of the encounter This section includes the Chemistry and Hematology Lab Results on record with [place] for the patient. Radiology Reports and Pathology Reports are provided separately, in subsequent sections. Lab Results This section contains the Chemistry/Hematology Results that were resulted 30 days before or 30 daysafter the date of the Encounter. Date/Time Source Result Type Result - Unit Interpretation Reference Range Specimen Type Comment February 23, 2024 09:10 AM [place] FERRITIN SERUM Specimen Type: SERUM No comment entered. Ordering Provider: AUSTIN BALDWIN Report Released Date/Time: Dec 22, 2023 10:15 AM Reporting Lab: [place] [facility] [place] [address] [address] Performing [facility]: [facility] [address] FERRITIN 46 ng/mL 20-300 February 23, 2024 09:10 AM [place] URIC ACID SERUM Sp ecimen Type: SERUM No comment entered. Ordering Provider: AUSTIN BALDWIN Report Released Date/Time: Dec 22, 2023 10:15 AM Reporting Lab: [facility] [address] [address] Performing Lab: [facility] [address] [address] URIC ACID 4.8 mg/dL 3.5-7.2 February 23, 2024 09:10 AM [place] HEMOGLOBIN A1C PANEL BLOOD Specimen T ype: [...] Dec 22, 2023 10:15 AM Reporting Lab: [facility] [address] [address] Performing Lab: [address] [address] HEMOGLOBIN A1C 6.4 H 4.0-5.6 February 23, 2024 09:10 AM [place] MICROALBUMIN CREATININE RATIO PANEL URINE Specimen Type: URINE No comment entered. Ordering Provider: AUSTIN BALDWIN Report Released Date/Time: Dec 22, 2023 10:15 AM Reporting Lab: [facility] [address] [address] Performing Lab: [address] [address] MICROALBUMIN/CREATININE RATIO 22.3 mg/g 0-29.9 MICROALBUMIN,QUANTITATIVE 2.5 mg/dL RR U NAVAIL CREATININE URINE 112.32 mg/dL February 23, 2024 09:10 AM [place] PSA SERUM Sp ecimen Type: SERUM No comment entered. Ordering Provider: AUSTIN BALDWIN Report Released Date/Time: Dec 22, 2023 10:15 AM Reporting Lab: [facility] [address] [facility] [address] Performing Lab: [facility] [address] [address] PSA 0.63 ng/mL 0.00-4.00 February 23, 2024 09:10 AM [place] CBC AND DIFF (AUTO) BLOOD Specimen Ty pe: BLOOD No comment entered. Ordering Provider: AUSTIN BALDWIN Report Released Date/Time: Dec 22, 2023 10:15 AM Reporting Lab: [facility] [address] [facility] [address] Performing Lab: [facility] [address] [facility] [address] WBC 9.84 10*3/uL 4.50-11.00 RBC 4.93 10*6/uL 4.23-5.66 HGB 15.0 g/dL 12.8-17 HCT 43.5 39.2-50.4 MCV 88.2 fL 82-99 MCHC 34.5 g/dL 30.8-35.1 PLT 254 10*3/uL 140-360 RDW-CV 13.0 12.0-16.0 Duval, Abs 0.84 10*3/uL 0.30-1.10 MCH 30.4 pg 26.2-32.6 Neut % 69.6 43.7-75.8 Lymph % 18.7 14.0-42.3 Duval % 8.5 5.1-13.7 Eos % 1.7 0.4-6.8 Baso % 0.9 0.1-2.0 Neut, Abs 6.84 10*3/uL 2.20-7.60 Lymph, Abs 1.84 10*3/uL 1.00-3.20 Eos, Abs 0.17 10*3/uL 0.03-0.44 Baso, Abs 0.09 10*3/uL 0.01-0.13 Immature Gran % 0.6 0.0-0.7 Immature Gran, Abs 0.06 10*3/uL 0.00-0.0 6 February 23, 2024 09:10 AM [place] LIVER FUNCTION SERUM Specimen Type: SERUM No comment entered. Ordering Provider: AUSTIN BALDWIN Report Released Date/Time: Dec 22, 2023 10:15 AM Reporting [facility]: [facility] [address] [address] Performing Lab: [facility] [address] [address] PROTEIN,TOTAL 6.3 g/dL 6.0-8.3 ALBUMIN 3.7 g/dL 3.5-5.0 ALKALINE PHOSPHATASE 29 U/L L 40-150 AST 45 U/L H 5-34 ALT 54 U/L BILIRUBIN, TOTAL 0.3 mg/dL 0.2-1.2 February 23, 2024 09:10 AM [place] URINALYSIS URINE S pecimen Type: URINE Comment: If Glucose = >500 and Ketones are positive, please alert the Physician. Ordering Provider: AUSTIN BALDWIN Report Released Date/Time: Dec 22, 2023 10:15 AM Reporting Lab: [facility] [address] [address] Performing Lab: [facility] [address] [address] UA COLOR Light-Yellow Yellow UA APPEARANCE Clear Clear UA GLUCOSE NEGATIVE mg/dL Negative UA KETONES NEGATIVE mg/dL Negative UA BLOOD NEGATIVE mg/dL Negative UA PROTEIN NEGATIVE mg/dL Negative UA NITRITE NEGATIVE mg/dL Negative UA BILIRUBIN NEGATIVE mg/dL Negative UA SPECIFIC GRAVITY 1.019 1.016-1.022 UA pH 6.5 5.0-9.0 UA UROBILINOGEN <2.0 mg/dL <2.0 UA LEUKOCYTE NEGATIVE Negative February 23, 2024 09:10 AM [place] TSH SERUM Sp ecimen Type: SERUM No comment entered. Ordering Provider: AUSTIN BALDWIN Report Released Date/Time: Dec 22, 2023 10:15 AM Reporting Lab: [facility] [address] [address] Performing Lab: [facility] [address] [address] TSH 1.89 u[IU]/mL 0.35-5.00 February 23, 2024 09:10 AM [place] LIPID PANEL FASTING SERUM Specimen Ty pe: SERUM No comment entered. Ordering Provider: AUSTIN BALDWIN Report Released Date/Time: Dec 22, 2023 10:15 AM Reporting Lab: [address] [address] Performing Lab: [address] [address] CHOLESTEROL 145 mg/dL TRIGLYCERIDE 241 mg/dL H 0-150 LDL calculated 59 mg/dL 0-129 CHOL/HDL 3.8 HDL CHOLESTEROL 38 mg/dL L 40-60 February 23, 2024 09:10 AM [place] BASIC METABOLIC PANEL (fasting) SERUM Specimen Type: SERUM No comment entered. Ordering Provider: AUSTIN BALDWIN Report Released Date/Time: Dec 22, 2023 10:15 AM Reporting Lab: [address] [address] Performing Lab: [address] [address] UREA NITROGEN 11 mg/dL 7-25 GLUCOSE 122 mg/dL H 65-100 SODIUM 140 mmol/L 135-145 POTASSIUM 4.4 mmol/L 3.5-5.0 CHLORIDE 107 mmol/L 100-110 CO2 24 meq/L 20-30 CREATININE, Serum 1.14 mg/dL 0.50-1.40 eGFR(CKD-EPI 2020) 72 mL/min >60 February 23, 2024 09:08 AM [place] CREATININE (eGFR 2020) SERUM Specimen Type: SERUM Comment: *LIPID PANEL FASTING Not Performed: February 23, 2024@09:18 by [id number] *SENIOR INFRASTRUCTURE ARCHITECT Reason: duplicate Ordering Provider: SWAPNIL SCHOFIELD Report Released Date/Time: Feb 01, 2024 01:14 PM Reporting Lab: [address] [address] Performing Lab: [address] [address] CREATININE, Serum 1.13 mg/dL 0.50-1.40 eGFR(CKD-EPI 2020) 73 mL/min >60 Advance Directives: All historical and current Section Date Range: From patient's date of to the date document was created. This section includes ALL of a patient's completed or amended [place] Advance and Rescinded Directives. The entries below indicate that a directive exists for the patient, but an actual copy is not included with this document. The data comes from all [place] facilities. Date Advance Directives Provider Source Dec 12, 2014 ADVANCE DIRECTIVE NORMAKATRINJAROCHO Conner Encounter Notes: All associated encounter notes This section contains the clinical notes associated to the Encounter. Date/Time Encounter Note(s) Provider Source February 03, 2024 01:41 PM ACUPUNCTURE CONSULT: LOCAL TITLE: CONSULT REPORT/ACUPUNCTURE STANDARD TITLE: ACUPUNCTURE CONSULT DATE OF NOTE: FEBRUARY 03, 2024@13:41 ENTRY DATE: FEBRUARY 03, 2024@13:41:42 AUTHOR: JEFFERY ALFARO COSIGNER: URGENCY: STATUS: COMPLETED ANGELA RIVERA is a 63 WHITE MALE who presents with Nausea, Anxiety, nicotine dependence Active Problem Steatosis of liver K76.0 12/24/2023 AUSTIN BALDWIN [...] 12/28/2017 UNA MARCUS Secondary polycythemia R69. 10/23/2016 DENNYAUSTIN Calculus of prostate R69. 11/26/2015 DENNYAUSTIN Hypertriglyceridemia E78.2 11/26/2015 DENNYAUSTIN Chronic kidney disease stage 3 N18. 12/16/2023 BALDWINAUSTIN EKG axis finding R69. 11/26/2015 DENNYAUSTIN Carpal tunnel syndrome 354.0 12/16/2013 DENNYAUSTIN Fracture of ankle 824.8 12/16/2013 BALDWINAUSTIN Panic attack F41.0 11/26/2015 BALDWINAUSTIN Colonoscopy normal 799.9 04/10/2015 DENNYAUSTIN Date February CC / HPI - presents with chronic nausea and anxiety. has stage III kidney disease and which causes a cascade of effects including nausea and dehydration. Aurora states that he has attacks where he will have nausea dizziness and sweating and feel lightheaded. Aurora states in November he was hospitalized 4 times as a result. says that while he is nauseous he never vomits but only dry heaves. states this has been going on various forms of intensity for over 30 years. also has diabetes. also suffers from chronic anxiety. He reports he takes Klonopin to control his anxiety and uses trazodone at night to sleep. He reports that his sleep is generally good with the trazodone. He will go to sleep at 8 PM and wake at 6 AM. He reports feeling well rested in the morning. states appetite is good though he has to watch what he eats. He is trying to lose weight but is finding it difficult. states digestion is generally good. No history of acid reflux or other issues. states bowel movements are normal and unremarkable. Urination: states that he can often have urgency to urinate. He reports that several times he has not made it to the bathroom in time. TREATMENT HISTORY of Main Complaint: CLIENT GOALS FOR TREATMENT: Reduce nausea and dizziness, stop smoking, reduce anxiety. PAST MEDICAL HISTORY: See co-morbidity in Assessment PAST SURGICAL HISTORY: REVIEW OF SYSTEMS: Except for what is mentioned in the HPI/SYMPTOMS there are no complaint of: Headache, Radicalgia, weakness, fever, sore throat, chest pain, shortness of breath, joint swelling, dizziness, vision loss, unexplained weight loss, bowel or bladder incontinence/retention or saddle anesthesia OBJECTIVE: Unless otherwise noted noted in HPI/Symptoms. General: . Patient in no apparent distress [...] Gait [ ]antalgic [X]non-antalgic [ ]ataxic [ ]Wheel Chair, Walker, Cane ASSESSMENT / SUMMARY Affected Channel(s)/OM Dx: Medical Decision Making (MDM) [ ]Straightforward o [ ]Minimal = 1 self-limited or minor problem [ ]Low o - 2 or more self-limited or minor problems o - 1 stable chronic illness o - 1 acute, uncomplicated illness or injury [X]Moderate o - 1 or more chronic illness with exacerbation, progression or side effect from treatment o - 2 or more stable chronic illnesses o - 1 undiagnosed new problem w/uncertain prognosis o - 1 acute illness w/ systemic symptoms o - 1 acute complicated injury [ ]High o - 1 or more chronic illnesses w/ severe exacerbation, progression, or side effect from treatment o - 1 acute or chronic illness/injury that poses threat to life or bodily function PLAN / RECOMMENDATION: Follow-up visit [X]1 WEEK [ ]2 WEEKS [ ]3 WEEKS [ ]1 MONTH FREQUENCY OF CARE [X]1 X WEEKLY, [ ]2 X WEEKLY [ ]Bi-Weekly, [ ]Monthly, [ ]Other Seeking: [ ]access to acupuncture for: [ ]pain control [X]Stress/anxiety reduction, [ ]Depression [ ]Other mental health: [ ]Addiction/dependence: [ ]Nicotine [ ]Alcohol [ ]Chemical [X]Other:Nausea and dizziness Patient Education: [X]Encouraged self-care management using active therapies. [ ](exercises, therapeutic movement, PT, biofeedback, smoking cessation, health coaching) to manage chronic pain while engaging passive therapies (acupuncture / chiropractic / massage) to manage [ ]acute / [ ]subacute (persistent) pain. [ ]Counseled not to view exercise as [...] ]Pyonex Needle: remove prior to bathing per mutuel teller INFORMED CONSENT: Oral Consent obtained on February The patient was positioned comfortably. Oral consent [...] by the patient and the provider. PROCEDURES: Number of Acupuncture Sets: [ ]1 [X]2 [ ]3 Set 1 TIME SPENT: 15 Minutes Position:[X]Prone [ ]Supine [ ]Left Side [ ] Right Side [ ]Seated Chair [ ] Massage Chair Points used: [X]Ear:[ ]Left [ ]Right [X]Bilateral [ ]BFA Protocol, [X]NADA Protocol, [ ] Ear: [ ]Castillo Men, [ ]Point Zero, [ ]Sympathetic [ ]Ear Other: [ ]Head: [ ]Neck: [ ]Torso: [ ]Hip / Glute Area: [ ]LUE: [ ]RUE: [ ]LLE: [ ]RLE: Set 2 TIME SPENT: 15 Minutes Position:[X]Prone [ ]Supine [ ]Left Side [ ] Right Side [ ]Seated Chair [ ] Massage Chair Points used: [ ]Ear:[ ]Left [ ]Right [ ]Bilateral [ ]BFA Protocol, [ ]NADA Protocol, [ ] Ear: [ ]Castillo Men, [ ]Point Zero, [ ]Sympathetic [ ]Ear Other: [ ]Head: [ ]Neck: [ ]Torso: [ ]Hip / Glute Area: [X]LUE:LI 4, FREDRICK 7, TH 5, LI 11 [X]RUE:LI 4, FREDRICK 7, TH 5, LI 11 [X]LLE:Kd 10, ST 36, SP 9, SP 6, Kd 3, Kd 2, SP 3 [X]RLE:Kd 10, ST 36, SP 9, SP 6, Kd 3, Kd 2, SP 3 [ ]Other therapies: [ ]Cold Laser [ ]Cupping: [ ]Peizo Pen: [ ]External Qigong: [ [...] is required /karlene/ JEFFERY ALFARO LA.C DIPL.AC JAVASCRIPT APPLICATION DEVELOPER Signed: 02/03/2024 15:50 JEFFERY ALFARO [facility]
--- OUTSIDE RECORDS SUMMARY | 2025-02-01 16:05 | XMS_ITS | Encounter Summary ---
Author Organization [employer] Address [address] [place] [address] [address] [place] [address] Care Team Providers Care Butter Wrapper Name Role Phone Unavailable Primary Care Provider Unavailabl e Encounter Details Date Type Department Care Team (Latest Contact Info) Description 04/14/[address] [facility] CONVERSIONS Dental, Provider, DDS Social History Tobacco Use Types Packs/Day Years Used Date Smoking Tobacco: Never Assessed Sex and Gender Information Value Date Recorded Sex Assigned at Male 08/04/2022 10:16 AM EDT Legal Sex Male 10:16 AM EDT Gender Identity Male 08/04/2022 10:16 AM EDT Sexual Orientation Straight 08/04/2022 10 :16 AM EDT documented as of this encounter Plan of Treatment Upcoming Encounters Date Type Department Care Team (Late st Contact Info) Description 03/08/2025 9:00 AM EDT Office Visit [facility] ADULT DENTAL [address] [place] [address] Gabby Jarquin [address] [place] [address] documented as of this encounter Visit Diagnoses Not on filedocumented in this encounter
--- OUTSIDE RECORDS SUMMARY | 2025-02-01 16:05 | XMS_ITS | Encounter Summary ---
Author Name [facility] [place] [facility] [place] Address [address] [place] [address] Care Team Providers Care Digital Solution Architect Name Role Phone AUSTIN BALDWIN Primary [facility] Insurance Providers: All historical [...] Relationship to Policy Lomas PATRICIO MULLIGAN-ESME R [place] SPECIAL CLASS PATRICIO ERICKSON Nov 14, 2024 PATRICIO MULLIGAN [id number] Dougie RIVERA PATIENT [facility] MEDICAID MEDICAID MEDIC AID Oct 05, 2016 MEDICAI D [id number] NICOLE,A NALLELY PATIENT MEDICAID MEDICAID [facility] Oct 05, 2014 MEDICAI D [id number] Dougie RIVERA NALLELY PATIENT MEDICARE (WNR) MEDICARE (M) PART A May 05, 2018 PART A [id number] [facility] Dougie RIVERA NALLELY PATIENT MEDICARE (WNR) MEDICARE (M) PART B May 05, 2018 PART B [id number] Dougie RIVERA PATIENT Selected Encounter This section includes the information on record at [place] for the Encounter. Date/Time Encounter Type Encounter Description Reason Provider Source Jul 05, 2024 03:30 PM PSYTX W PT 30 MINUTES PRIMARY CARE/MEDICINE ICD-10-CM Z72.0 Tobacco use DESTINEEGRETASCARLET Nancy Encounter Template Text not used by [place] Assessments - Encounter Diagnoses This section includes the primary and secondary diagnoses documented for the Encounter. Date/Time Primary/Secondary Diagnosis Diagnosis Name Provider Source Jul 07, 2024 08:39 AM PRIMARY Tobacco use LUCINA LUGO [facility] Plan of Treatment: Future Appointments (+ 6 months) and Future Tests (+/- 45 days) The Plan of Treatment section includes future care activities for the patient from all [place] [facility]. This section includes future appointments and future orders which are active, pending or scheduled. Future Appointments This section includes appointments that were scheduled to occur 6 months from the date of the Encounter, up to a maximum of 20 appointments. The data comes from all [place] treatment facilities. Appointment Date/Time Appointment Type Appointme nt Facility Name Jul 15, 2024 11:30 AM AMBULATORY - MEDICINE [facility] Jul 25, 2024 09:30 AM AMBULATORY - MEDICINE [place] [facility] [place] [facility] Jul 25, 2024 10:00 AM AMBULATORY - MEDICINE [place] [facility] [place] [facility] Jul 25, 2024 11:00 AM AMBULATORY - MEDICINE [place] [facility] [place] [facility] Jul 28, 2024 09:30 AM AMBULATORY - MEDICINE [facility] Jul 28, 2024 10:00 AM AMBULATORY - MEDICINE [facility] Jul 29, 2024 03:00 PM AMBULATORY - MEDICINE [place] [facility] [place] [facility] Aug 03, 2024 03:30 PM AMBULATORY - MEDICINE [place] [facility] [place] [facility] Aug 05, 2024 08:30 AM AMBULATORY - MEDICINE [facility] [place] [facility] Aug 11, 2024 08:30 AM AMBULATORY - MEDICINE [facility] [place] [facility] Aug 25, 2024 09:00 AM AMBULATORY - MEDICINE [facility] [place] [facility] Sep 07, 2024 10:00 AM AMBULATORY - MEDICINE [place] [facility] [place] [facility] Sep 07, 2024 03:00 PM AMBULATORY - MEDICINE [facility] [place] [facility] Sep 12, 2024 09:00 AM AMBULATORY - MEDICINE [facility] Sep 15, 2024 08:45 AM AMBULATORY - MEDICINE [facility] [place] [facility] Sep 20, 2024 09:30 AM AMBULATORY - MEDICINE [facility] Sep 20, 2024 10:30 AM AMBULATORY - MEDICINE [facility] Oct 06, 2024 10:00 AM AMBULATORY - MEDICINE [facility] [place] [facility] Oct 18, 2024 08:30 AM AMBULATORY - MEDICINE [facility] [place] [facility] Nov 07, 2024 01:15 PM AMBULATORY - MEDICINE [facility] [place] [facility] Social History: Smoking Status (Most current) and Tobacco Use (All prior to encounter date) This section includes the most current, and the historical, smoking and tobacco- related health factors from the [place] facility where the Encounter took place. Current Smoking Status This section includes the most current smoking, or tobacco-related health factor, from the [place] facility where the Encounter took place. Date/Time Current Smoking Status Comment Facil [facility] Dec 16, 2023 10:00 AM VA-TOBACCO USER EVERY DAY [facility] Tobacco Use History This section includes a history of the smoking, or tobacco-related health factors, that were collected on or before the date of the Encounter. The data comes from the [place] facility where the Encounter took place. Date/Time Smoking Status/Tobacco Use Comment F acility Dec 16, 2023 10:00 AM VA-TOBACCO USE > 1 5 LESS THAN 30 YEARS [facility] Dec 16, 2023 10:00 AM VA-TOBACCO USE 30 YEARS OR MORE [facility] Dec 16, 2023 10:00 AM VA-TOBACCO USE ADVICE [facility] Dec 16, 2023 10:00 AM VA-TOBACCO USE OUTPATIENT CLERK NO [facility] Dec 16, 2023 10:00 AM VA-TOBACCO USE OUTPATIENT CLERK YES [facility] Dec 16, 2023 10:00 AM VA-TOBACCO USE MED NO [facility] Dec 16, 2023 10:00 AM VA-TOBACCO USE MED YES [facility] Dec 16, 2023 10:00 AM VA-TOBACCO USE WI 30 MIN OF WAKEUP [facility] Dec 16, 2023 10:00 AM VA-TOBACCO USER EVERY DAY [facility] Jan 13, 2023 02:00 PM VA-TOBACCO USE 1 T O < 5 YEARS [facility] Jan 13, 2023 02:00 PM VA-TOBACCO USE ADVICE [facility] Jan 13, 2023 02:00 PM VA-TOBACCO USE OUTPATIENT CLERK NO [facility] Jan 13, 2023 02:00 PM VA-TOBACCO USE MED NO [facility] Jan 13, 2023 02:00 PM VA-TOBACCO USE WI 30 MIN OF WAKEUP [facility] Jan 13, 2023 02:00 PM VA-TOBACCO USER EVERY DAY [facility] Jul 03, 2022 09:00 AM VA-TOBACCO FORMER USER [facility] Jul 03, 2022 09:00 AM VA-TOBACCO QUIT 5 TO < 15 YRS [facility] Jul 04, 2021 09:00 AM VA-TOBACCO USE > 1 5 LESS THAN 30 YEARS [facility] Jul 04, 2021 09:00 AM VA-TOBACCO USE ADVICE [facility] Jul 04, 2021 09:00 AM VA-TOBACCO USE OUTPATIENT CLERK NO [facility] Jul 04, 2021 09:00 AM VA-TOBACCO USE MED NO [facility] Jul 04, 2021 09:00 AM VA-TOBACCO USE [place] 30 MIN OF [facility] Jul 04, 2021 09:00 AM VA-TOBACCO USER SOME DAYS [facility] Apr 30, 2020 10:39 AM VA-TOBACCO FORMER USER [facility] Apr 30, 2020 10:39 AM VA-TOBACCO QUIT 5 TO < 15 YRS [facility] Dec 21, 2018 03:15 PM VA-TOBACCO FORMER USER [facility] Dec 21, 2018 03:15 PM VA-TOBACCO QUIT 1 TO < 5 YRS [facility] Nov 24, 2017 09:54 AM CURRENT SMOKER cigarets [facility] Nov 24, 2017 09:54 AM V1-PT READY TO SHARAN T TOBACCO USE [facility] Mar 25, 2017 01:57 PM CURRENT SMOKER down to 10 cigarettes daily [facility] Mar 25, 2017 01:57 PM V1-PT DECLINES TOB ACCO CESSATION MEDS [facility] Mar 25, 2017 01:57 PM V1-PT READY TO SHARAN T TOBACCO USE [facility] March 04, 2017 02:38 PM CURRENT SMOKER advise stopm [facility] Jul 22, 2016 09:29 AM V1-PT NOT INTEREST ED IN QUIT TOBACCO USE [facility] Nov 21, 2015 09:21 AM CURRENT SMOKER half a pack a day [facility] Nov 21, 2015 09:21 AM V1-PT NOT INTEREST ED IN QUIT TOBACCO USE [facility] Nov 23, 2014 08:51 AM CURRENT SMOKER [facility] Nov 23, 2014 08:51 AM V1-PT READY TO SHARAN T TOBACCO USE [facility] Dec 16, 2013 02:19 PM CURRENT SMOKER 3/4 pack a day [facility] Dec 16, 2013 02:19 PM V1-PT THINKING ABO UT QUIT TOBACCO USE [facility] Advance Directives: All historical and current Section Date Range: From patient's date of to the date document was created. This section includes ALL of a patient's completed or amended [place] Advance and Rescinded Directives. The entries below indicate that a directive exists for the patient, but an actual copy is not included with this document. The data comes from all [place] facilities. Date Advance Directives Provider Source Dec [...] 07/07/2024 08:45 Receipt Acknowledged By: 07/07/2024 09:15 /es/ JERAMY MASON Advanced Account Executive Key Accounts --- Original Document --- 07/05/24 TOBACCO CESSATION NOTE: [place] POPRAGEOUS (VV) Standard Documentation [facility] Clinician Resources Only: E911 (Emergency Call Relay Center): [phone] [facility] Crisis Line - 248 then press #1. [place] Suicide Coordinator ? [phone], Ext. [phone]; Back-up Ext. [phone] [place] Police, [place], Dianelys ? [phone] Introduction: Visit is being conducted by [facility]. Leedey identified with 2 identifiers: [X] Full Name [X] Date of [ ] VA ID Card Emergency Plan: confirmed and/or provided the following information in case of emergency or technology failure. PATIENT PHONE - PHONE NUMBER [CELLULAR] - Is patient phone number correct, if not, enter below: 's phone number: ANGELA RIVERA [address] [facility] [address], [place], [address] Leedey's present location and address for appointment: home 's emergency contact name and phone number: chart Leedey reported that location is private and safe: Yes Informed Consent: informed of the risks and benefits of Telehealth video care. has the right to refuse video services. If refuses video visit, a [id number] visit will be scheduled. Leedey verbalized consent for this video visit: Yes Leedey provided consent for any other persons present for visit: N/A If yes, who and relationship to patient: Secure visit: Visit was locked for security and privacy:Yes Smoking Cess f/u DATE: 07/05/24 DURATION OF COUNSELIN min DX: tobacco use disorder, mod REASON FOR ENCOUNTER: Leedey attended session for smoking cessation. SUMMARY OF [...] to take if this occurs. MENTAL STATUS: Leedey was oriented x3, mental status was WNL. No behavioral, perceptual orthought disturbances reported or observed. No concerns. CURRENT IMPRESSION OF LETHALITY RISK / PLAN FOR RISK MANAGEMENT: No thoughts, intent or plan to harm self or others was reported. No imminent risk reported. IMPRESSIONS: Leedey is taking chanitx. No longer smoking PLAN: 1) will return on 08/03 at 330pm via [facility] 2) continue chantix-- [employer] COACHING SKILLS Coaching or Motivational Interviewing skills used. /karlene/ Lucina Lugo, PhD Clinical Psychologist Signed: 07/07/2024 08:44 LUCINA LUGO [facility] Jul 05, 2024 03:37 PM SMOKING CESSATION NOTE: LOCAL TITLE: TOBACCO CESSATION NOTE STANDARD TITLE: SMOKING CESSATION NOTE DATE OF NOTE: JUL 05, 2024@15:37 ENTRY DATE: JUL 05, 2024@15:37:44 AUTHOR: LUCINA LUGO EXP COSIGNER: URGENCY: STATUS: COMPLETED TOBACCO CESSATION NOTE Has ADDENDA [facility] ([facility]) Standard Documentation [facility] Clinician Resources Only: E911 (Emergency Call Relay Center): [phone] [facility] Crisis Line - 378 then press #1. CW Suicide Coordinator ? [phone], Ext. [phone]; Back-up Ext. [phone] [place] Police, Dianelys [place] ? [phone] Introduction: Visit is being conducted by [employer]. Leedey identified with 2 identifiers: [X] Full Name [X] Date of [ ] VA ID Card Emergency Plan: Leedey confirmed and/or provided the following information in case of emergency or technology failure. PATIENT PHONE - PHONE NUMBER [CELLULAR] - Is patient phone number correct, if not, enter below: Leedey's phone number: ANGELA RIVERA [address], [address] 's present location and address for appointment: home Leedey's emergency contact name and phone number: chart Leedey reported that location is private and safe: Yes Informed Consent: Leedey informed of the risks and benefits of Telehealth video care. has the right to refuse video services. If refuses video visit, a [id number] visit will be scheduled. verbalized consent for this video visit: Yes provided consent for any other persons present for visit: N/A If yes, who and relationship to patient: Secure visit: Visit was locked for security and privacy:Yes Smoking Cess f/u DATE: 07/05/24 DURATION OF COUNSELIN min DX: tobacco use disorder, mod REASON FOR ENCOUNTER: Leedey attended session for smoking cessation. SUMMARY OF [...] to take if this occurs. MENTAL STATUS: Leedey was oriented x3, mental status was WNL. No behavioral, perceptual orthought disturbances reported or observed. No concerns. CURRENT IMPRESSION OF LETHALITY RISK / PLAN FOR RISK MANAGEMENT: No thoughts, intent or plan to harm self or others was reported. No imminent risk reported. IMPRESSIONS: is taking chanitx. No longer smoking PLAN: 1) will return on 08/03 at 330pm via C 2) continue chantix-- [employer] COACHING SKILLS Coaching or Motivational Interviewing skills used. /karlene/ Lucina Lugo PhD Clinical Psychologist Signed: 07/07/2024 08:44 07/07/2024 ADDENDUM STATUS: COMPLETED alerting [facility] to rtc in chart. please send vvc link too /karlene/ Lucina Lugo PhD Clinical Psychologist Signed: 07/07/2024 08:45 Receipt Acknowledged By: * AWAITING SIGNATURE * JERAMY MASON,LUCINA TABOR
--- OUTSIDE RECORDS SUMMARY | 2025-02-01 16:05 | XMS_ITS | Encounter Summary ---
Author Name [facility] Organization [facility] Address [address] [place] [address] Care Team Providers Care Retail Event Assistant Name Role Phone AUSTIN BALDWIN Primary [...] Relationship to Policy Lomas PATRICIO MULLIGAN-WN R [place] SPECIAL CLASS PATRICIO ERICKSON Nov 14, 2024 PATRICIO MULLIGAN [id number] NICOLE,A NALLELY PATIENT [facility] MEDICAID MEDICAID MEDIC AID Oct 05, 2016 MEDICAI D [id number] NICOLE,A NALLELY PATIENT MEDICAID MEDICAID [facility] [place] [facility] [place] Oct 05, 2014 MEDICAI D [id number] NICOLE,Dougie NALLELY PATIENT MEDICARE (WNR) MEDICARE (M) PART A May 05, 2018 PART A [id number] Dougie RIVERA NALLELY PATIENT MEDICARE (WNR) MEDICARE (M) PART B May 05, 2018 PART B [id number] Dougie RIVERA PATIENT Selected Encounter This section includes the information on record at NE for the Encounter. Date/Time Encounter Type Encounter Description Reason Provider Source Dec 28, 2024 03:00 PM OFFICE O/P NEW LOW 30 MIN DERMATOLOGY ICD-10-CM Z85.828 Personal history of other malignant neoplasm of skin GARRET MALDONADO [facility] Encounter Template Text not used by NE Assessments - Encounter Diagnoses This section includes the primary and secondary diagnoses documented for the Encounter. Date/Time Primary/Secondary Diagnosis Diagnosis Name Provider Source Dec 28, 2024 03:41 PM PRIMARY Personal history of other malignant [facility] [place] [facility] Dec 28, 2024 03:41 PM SECONDARY Hemangioma of skin and subcutaneous tissue [facility] [place] [facility] Dec 28, 2024 03:41 PM SECONDARY Nevus, non-neoplastic [facility] [place] [facility] Dec 28, 2024 03:41 PM SECONDARY Other melanin hyperpigmentation [facility] [place] [facility] Dec 28, 2024 03:41 PM SECONDARY Other [facility]rheic ker[facility] [place] [facility] Plan of Treatment: Future Appointments (+ 6 months) and Future Tests (+/- 45 days) The Plan of Treatment section includes future care activities for the [facility] This section includes future appointments and future orders which are active, pending or scheduled. Future Appointments This section includes appointments that were scheduled to occur 6 months from the date of the Encounter, up to a maximum of 20 appointments. The data comes from all [place] treatment facilities. Appointment Date/Time Appointment Type Appointme nt Facility Name Jan 09, 2025 01:30 PM AMBULATORY - MEDICINE [place] [facility] [place] [facility] Jan 12, 2025 09:00 AM AMBULATORY - MEDICINE [facility] Jan 26, 2025 09:30 AM AMBULATORY - MEDICINE [place] [facility] [place] [facility] February 08, 2025 01:00 PM AMBULATORY - MEDICINE [place] [facility] [place] [facility] February 13, 2025 01:00 PM [facility] Mar 14, 2025 08:30 AM [facility] - MEDICINE [facility] Mar 14, 2025 09:00 AM AMBULATORY - MEDICINE [facility] May 18, 2025 09:00 AM [facility] Jun 15, 2025 08:30 AM [facility] Active, Pending, and Scheduled Orders This section includes a listing of several types of active, pending, and scheduled orders, including clinic medications orders, diagnostic test orders, procedure orders and consult orders; where the start date of the order is 45 days before the date of the Encounter or 45 days after the date of theEncounter. The data comes from all [place] treatment facilities. Test Date/Time Test Type Test Details Facility Name Nov 16, 2024 12:00 AM Laboratory - Chemi stry Order FERRITIN BLOOD (SST-SERUM) [facility] Nov 16, 2024 12:00 AM Laboratory - Chemi stry Order HEMOGLOBIN A1C PANEL BLOOD (LAV-BLOOD) [facility] Nov 16, 2024 12:00 AM Laboratory - Chemi stry Order TSH BLOOD (SST-SERUM) [facility] Nov 16, 2024 12:00 AM Laboratory - Chemi stry Order PSA BLOOD (SST-SERUM) [facility] Nov 16, 2024 12:00 AM Laboratory - Chemi stry Order AMYLASE BLOOD (SST-SERUM) [facility] Nov 16, 2024 12:00 AM Laboratory - Chemi stry Order LIPASE BLOOD (SST-SERUM) [facility] Nov 16, 2024 12:00 AM Laboratory - Chemi stry Order URINALYSIS URINE [facility] Nov 16, 2024 12:00 AM Laboratory - Chemi stry Order MICROALBUMIN CREATININE RATIO PANEL URINE (RANDOM) [facility] Nov 16, 2024 12:00 AM Laboratory - Chemi stry Order BASIC METABOLIC PANEL (fasting) BLOOD (SST-SERUM) [facility] Nov 16, 2024 12:00 AM Laboratory - Chemi stry Order LIVER FUNCTION BLOOD (SST-SERUM) [facility] Nov 16, 2024 12:00 AM Laboratory - Chemi stry Order LIPID PANEL FASTING BLOOD (SST-SERUM) [facility] Nov 16, 2024 12:00 AM Laboratory - Chemi stry Order CALCIUM BLOOD (SST-SERUM) [facility] Nov 16, 2024 12:00 AM Laboratory - Chemi stry Order URIC ACID BLOOD (SST-SERUM) [facility] Nov 16, 2024 12:00 AM [facility] CBC AND DIFF (AUTO) BLOOD (LAV-BLOOD) [facility] Nov 16, 2024 12:00 AM Laboratory - Chemi stry Order VITAMIN D (25-OH) BLOOD (SST-SERUM) [facility] Lab Results: +/- 30 days of the encounter This section includes the Chemistry and Hematology Lab Results on record with NE for the patient. Radiology Reports and Pathology Reports are provided separately, in subsequent sections. Lab Results This section contains the Chemistry/Hematology Results that were resulted 30 days before or 30 daysafter the date of the Encounter. Date/Time Source Result Type Result - Unit Interpretation Reference Range Specimen Type Comment Dec 19, 2024 10:15 AM [facility] GLUCOSE, Fingerstick BLOOD Specimen T ype: BLOOD Comment: For GLU FinTest performed by: Christy Robbins For GLU Fin Meter #: [id number] Ordering Provider: SWAPNIL SCHOFIELD Report Released Date/Time: Dec 19, 2024 04:05 PM Reporting Lab: [address] [address] Performing Lab: [address] [address] GLUCOSE, Fingerstick 133 mg/dL H 65-100 Dec 15, 2024 09:34 AM [facility] CREATININE (eGFR 2020) SERUM Specimen Type: SERUM No comment entered. Ordering Provider: SWAPNIL SCHOFIELD Report Released Date/Time: Dec 14, 2024 02:29 PM Reporting Lab: [address] [address] Performing Lab: [address] [address] CREATININE, Serum 1.27 mg/dL 0.50-1.40 eGFR(CKD-EPI 2020) 63 mL/min >60 Dec 15, 2024 09:34 AM [facility] HEMOGLOBIN A1C PANEL BLOOD Specimen T ype: [...] Dec 14, 2024 02:29 PM Reporting Lab: [facility] [address] [address] Performing Lab: [facility] [address] [address] HEMOGLOBIN A1C 5.8 H 4.0-5.6 Advance Directives: All historical and current Section Date Range: From patient's date of to the date document was created. This section includes ALL of a patient's completed or amended NE Advance and Rescinded Directives. The entries below indicate that a directive exists for the patient, but an actual copy is not included with this document. The data comes from all [place] facilities. Date Advance Directives Provider Source Dec [...] CONSULT CHIEF COMPLAINT: SK, h/o NMSC HPI: presents s/p TeleDerm 03/2024. Reviewed images and report. reports crusting area on L scalp - otherwise asymptomatic. Morgan denies any other new/changing/bleeding/non- healing lesions. Reviewed records in [facility] (all available). 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 Family Hx: Denies known h/o MM PastMedHx: [...] concerning lesions or changes #Seborrheic Keratoses: -The Morgan was educated regarding the benign nature, but [...] area. RTC 1 yr, sooner PRN * educated to RTC danial if any new, changing, non-healing, or symptomatic lesions. * Education on sun protection and avoidance strategies was provided. * Encouraged monthly skin self exams for lesions changing in size, shape, or color, or non-healing lesions * Differential diagnosis, prescription options and risks/benefits were discussed with the patient, who consented to treatment plan. * Morgan consented to photography for documentation if indicated. [...] of active outpatient prescriptions dispensed from this NE (local) and dispensed from another NE or [facility] facility (remote) as well as inpatient orders [...] JLV. Allergies/ADRs (Tool #5) FACILITY ALLERGY/ADR -------- [facility] [place] [facility] CODEINE [facility] [place] [facility] OXYCODONE [facility] OXYCODONE Med Recon NoGlossary (Tool #1) INCLUDED IN THIS LIST: Alphabetical list of active outpatient prescriptions dispensed from this NE (local) and dispensed from another NE or [facility] facility (remote) as well as inpatient orders (local pending and active), local clinic medications, locally documented non-VA medications, and local prescriptions that have or been discontinued in the past 90 days. Non-VA Meds Last Documented On: Aug 25, 2023 NOTE The display of VA prescriptions dispensed from another NE or DoD facility (remote) is limited to active outpatient prescription entries matched to National Drug File at the originating site and may not include some items such as investigational drugs, compounds, etc. NOT INCLUDED IN THIS LIST: Medications self-entered by the patient into personal health records (i.e. [facility]) are NOT included in this list. Non-VA medications documented outside this NE, remote inpatient orders (regardless of status) and remote clinic medications are NOT included in this list. The patient and provider must always discuss medications the patient is taking, regardless of where the medication was dispensed or obtained. OUTPT ALBUTEROL 90MCG (CFC-F) 200D ORAL INHL (Status = Discontinued) INHALE 1 PUFF BY MOUTH FOUR TIMES DAILY NEEDED FOR BRONCHOSPASM Rx# [id number] Last Released: 12/21/23 Qty/Days Supply: 11/03 Rx Expiration Date: 11/04/24 Refills Remainin Indication: FOR BRONCHOSPASM OUTPT ALBUTEROL 90MCG (CFC-F) 200D ORAL INHL (Status = Active) INHALE 1 PUFF BY MOUTH FOUR TIMES DAILY NEEDED FOR BRONCHOSPASM Rx# [id number] Last Released: 11/23/24 Qty/Days Supply: 11/03 Rx Expiration Date: 11/16/25 Refills Remainin Indication: FOR BRONCHOSPASM OUTPT AMLODIPINE BESYLATE 10MG TAB (Status = Active) TAKE ONE TABLET BY MOUTH ONCE DAILY FOR BLOOD PRESSURE/HEART, DO NOT TAKE WITH GRAPEFRUIT JUICE Rx# [id number] Last Released: 09/22/24 Qty/Days Supply: Rx Expiration [...] ONCE DAILY FOR VITAMIN D DEFICIENCY Rx# [id number] Last Released: 10/28/24 Qty/Days Supply: Rx Expiration Date: 01/05/25 Refills Remainin Indication: FOR VITAMIN D DEFICIENCY OUTPT CHOLECALCIF 50MCG (D3-2,000UNIT) TAB (Status = Active/Suspended) TAKE ONE TABLET BY MOUTH ONCE DAILY FOR VITAMIN D DEFICIENCY Rx# [id number] Last Released: QtDays Supply: Rx Expiration Date: 11/16/25 Refills Remainin Indication: FOR VITAMIN D DEFICIENCY Non-VA CLONAZEPAM 1MG TAB TAKE ONE TABLET BY MOUTH TWICE DAILY Medication prescribed by Non-VA provider. or tid OUTPT FENOFIBRATE 145MG TAB (Status = Active) TAKE ONE TABLET BY MOUTH ONCE DAILY Rx# [id number] Last Released: 09/08/24 Qty/Days Supply: Rx Expiration Date: 03/17/25 Refills Remainin Indication: FOR HIGH CHOLESTEROL OUTPT FERROUS GLUCONATE 324MG TAB (Status = Active) TAKE ONE TABLET BY MOUTH EVERY OTHER DAY TO SUPPLEMENT IRON Rx# [id number] Last Released: 10/20/24 Qty/Days Supply: Rx Expiration Date: 10/19/25 Refills Remainin Indication: TO SUPPLEMENT IRON Non-VA HYDROXYZINE HCL 25MG TAB TAKE ONE TABLET BY MOUTH ONCE DAILY Non-VA OLANZAPINE 5MG TAB TAKE ONE TABLET BY MOUTH TWICE DAILY Non-VA medication not recommended by VA provider. OUTPT OMEPRAZOLE 20MG EC CAP (Status = Active) TAKE ONE CAPSULE BY MOUTH TWICE DAILY FOR EXCESSIVE PRODUCTION OF STOMACH ACID Rx# [id number] Last Released: 12/16/24 Qty/Days Supply: 180/ Rx Expiration Date: 03/17/25 Refills Remainin Indication: FOR EXCESSIVE PRODUCTION OF STOMACH ACID Non-VA ONDANSETRON HCL 4MG TAB TAKE ONE TABLET BY MOUTH DIRECVTED Medication prescribed by Non-VA provider. when has panic attacks OUTPT SEMAGLUTIDE 1MG/0.75ML INJ PEN 3ML (Status = Discontinued) INJECT 1MG SUBCUTANEOUSLY ONCE A WEEK FOR TYPE 2 DIABETES MELLITUS Rx# [id number] Last Released: 10/18/24 Qty/Days Supply: Rx Expiration Date: 09/21/25 Refills Remainin Indication: FOR TYPE 2 DIABETES MELLITUS OUTPT SEMAGLUTIDE 1MG/0.75ML INJ PEN 3ML (Status = Active) INJECT 1MG SUBCUTANEOUSLY ONCE A WEEK FOR TYPE 2 DIABETES MELLITUS Rx# [id number] Last Released: 12/21/24 Qty/Days Supply: Rx Expiration Date: 11/16/25 Refills Remainin Indication: FOR TYPE 2 DIABETES MELLITUS Non-VA TRAZODONE HCL 100MG TAB TAKE ONE-HALF TABLET BY MOUTH AT BEDTIME OUTPT VARENICLINE 1MG TAB (Status = Discontinued) TAKE ONE TABLET BY MOUTH TWICE DAILY FOR SMOKING CESSATION Rx# [id number] Last Released: 09/22/24 Qty/Days Supply: Rx Expiration Date: 07/30/25 Refills Remainin Indication: FOR SMOKING CESSATION Non-VA VENLAFAXINE HCL 150MG 24HR SA CAP TAKE 1 CAPSULE BY MOUTH ONCE DAILY Non-VA medication not recommended by VA provider. SUPPLIES OUTPT ACCU-CHEK GUIDE (GLUCOSE) TEST STRIP (Status = Discontinued) USE 1 STRIP TO TEST BLOOD SUGARS DIRECTED Rx# [id number] Last Released: 02/18/24 Qty/Days Supply: 50/180 Rx Expiration Date: 11/04/24 Refills Remainin OUTPT ACCU-CHEK GUIDE (GLUCOSE) TEST STRIP (Status = Active) USE 1 STRIP TO TEST BLOOD SUGARS DIRECTED Rx# [id number] Last Released: 11/23/24 Qty/Days Supply: 50/180 Rx Expiration Date: 11/16/25 Refills Remainin /karlene/ RACHELL MALDONADO DNP, ANALYTICS ANALYST-C NURSE PRACTITIONER Signed: 12/28/2024 15:40 RACHELL MALDONADO [facility]
--- OUTSIDE RECORDS SUMMARY | 2025-02-01 16:05 | XMS_ITS | Encounter Summary ---
Author Name [facility] Organization [facility] [place] Address [address] [place] [address] Care Team Providers Care Coffee Maker Name Role Phone AUSTIN BALDWIN Primary [facility] Insurance Providers: All historical [...] Relationship to Policy Lomas PATRICIO MULLIGAN-WN R [place] SPECIAL CLASS PATRICIO ERICKSON Nov 14, 2024 PATRICIO MULLIGAN [id number] Dougie RIVERA PATIENT [facility] MEDICAID MEDICAID MEDIC AID Oct 05, 2016 MEDICAI D [id number] NICOLE,A NALLELY PATIENT MEDICAID MEDICAID [facility] ST[facility] Oct 05, 2014 MEDICAI D [id number] Dougie RIVERA NALLELY PATIENT MEDICARE (WNR) MEDICARE (M) PART A May 05, 2018 PART A [id number] [facility] Dougie RIVERA NALLELY PATIENT MEDICARE (WNR) MEDICARE (M) PART B May 05, 2018 PART B [id number] [facility] Dougie RIVERA PATIENT Selected Encounter This section includes the information on record at PR for the Encounter. Date/Time Encounter Type Encounter Description Reason Provider Source Jan 12, 2025 09:00 AM OFFICE O/P EST LOW 20 MIN PODIATRY ICD-10-CM L60.0 Ingrowing nail OLIMPIA BRIGHT Nancy Encounter Template Text not used by PR Assessments - Encounter Diagnoses This section includes the primary and secondary diagnoses documented for the Encounter. Date/Time Primary/Secondary Diagnosis Diagnosis Name Provider Source Jan 12, 2025 09:23 AM PRIMARY Ingrowing nail OLIMPIA BRIGHT [place] Jan 12, 2025 09:23 AM SECONDARY Pain in left toe(s) OLIMPIA BRIGHT [place] Jan 12, 2025 09:23 AM SECONDARY Pain in right toe(s) OLIMPIA BRIGHT SHAR[place] Jan 12, 2025 09:23 AM SECONDARY Type 2 diabetes mellitus without complications KAILAOLIMPIA Ella SHARONA Plan of Treatment: Future Appointments (+ 6 months) and Future Tests (+/- 45 days) The Plan of Treatment section includes future care activities for the patient from all [facility]. This section includes future appointments and future orders which are active, pending or scheduled. Future Appointments This section includes appointments that were scheduled to occur 6 months from the date of the Encounter, up to a maximum of 20 appointments. The data comes from all PR treatment facilities. Appointment Date/Time Appointment Type Appointme nt Facility Name Jan 26, 2025 09:30 AM AMBULATORY - MEDICINE [facility] NTR [facility] February 08, 2025 01:00 PM AMBULATORY - MEDICINE [facility] NTR [facility] February 13, 2025 01:00 PM AMBULATORY - MEDICINE [facility] Mar 14, 2025 08:30 AM [facility] - MEDICINE [facility] Mar 14, 2025 09:00 AM [facility]UL[facility] - MEDICINE [facility] May 18, 2025 09:00 AM AMBULATORY - MEDICINE [facility] Jun 15, 2025 08:30 AM AMBULATORY - MEDICINE [facility] Lab Results: +/- 30 days of the encounter This section includes the Chemistry and Hematology Lab Results on record with PR for the patient. Radiology Reports and Pathology Reports are provided separately, in subsequent sections. Lab Results This section contains the Chemistry/Hematology Results that were resulted 30 days before or 30 daysafter the date of the Encounter. Date/Time Source Result Type Result - Unit Interpretation Reference Range Specimen Type Comment Dec 19, 2024 10:15 AM [facility] GLUCOSE, Fingerstick BLOOD Specimen T ype: BLOOD Comment: For GLU FinTest performed by: Christy Robbins For GLU Fin Meter #: [id number] Ordering Provider: SWAPNIL SCHOFEILD Report Released Date/Time: Dec 19, 2024 04:05 PM Reporting Lab: [address] [address] Performing Lab: [address] [address] GLUCOSE, Fingerstick 133 mg/dL H 65-100 Dec 15, 2024 09:34 AM [facility] CREATININE (eGFR 2020) SERUM Specimen Type: SERUM No comment entered. Ordering Provider: SWAPNIL SCHOFIELD Report Released Date/Time: Dec 14, 2024 02:29 PM Reporting Lab: [address] [address] Performing Lab: [address] [address] CREATININE, Serum 1.27 mg/dL 0.50-1.40 eGFR(CKD-EPI 2020) 63 mL/min >60 Dec 15, 2024 09:34 AM [facility] HEMOGLOBIN A1C PANEL BLOOD Specimen T ype: [...] Dec 14, 2024 02:29 PM Reporting Lab: [address] [address] Performing Lab: [address] [address] HEMOGLOBIN A1C 5.8 H 4.0-5.6 Social History: Smoking Status (Most current) and Tobacco Use (All prior to encounter date) This section includes the most current, and the historical, smoking and tobacco- related health factors from the PR facility where the Encounter took place. Current Smoking Status This section includes the most current smoking, or tobacco-related health factor, from the PR facility where the Encounter took place. Date/Time Current Smoking Status Comment Michela seals Dec 16, 2023 10:00 AM VA-TOBACCO USER EVERY DAY [facility] Tobacco Use History This section includes a history of the smoking, or tobacco-related health factors, that were collected on or before the date of the Encounter. The data comes from the PR facility where the Encounter took place. Date/Time Smoking Status/Tobacco Use Comment F acility Dec 16, 2023 10:00 AM VA-TOBACCO USE > 1 5 LESS THAN 30 YEARS [facility] Dec 16, 2023 10:00 AM VA-TOBACCO USE 30 YEARS OR MORE [facility] Dec 16, 2023 10:00 AM VA-TOBACCO USE ADVICE [facility] Dec 16, 2023 10:00 AM VA-TOBACCO USE SEMI CONDUCTOR ASSEMBLER NO [facility] Dec 16, 2023 10:00 AM VA-TOBACCO USE SEMI CONDUCTOR ASSEMBLER YES [facility] Dec 16, 2023 10:00 AM VA-TOBACCO USE MED NO [facility] Dec 16, 2023 10:00 AM VA-TOBACCO USE MED YES [facility] Dec 16, 2023 10:00 AM VA-TOBACCO USE WI 30 MIN OF WAKEUP [facility] Dec 16, 2023 10:00 AM VA-TOBACCO USER EVERY DAY [facility] Jan 13, 2023 02:00 PM VA-TOBACCO USE 1 T O < 5 YEARS [facility] Jan 13, 2023 02:00 PM VA-TOBACCO USE ADVICE [facility] Jan 13, 2023 02:00 PM VA-TOBACCO USE SEMI CONDUCTOR ASSEMBLER NO [facility] Jan 13, 2023 02:00 PM VA-TOBACCO USE MED NO [facility] Jan 13, 2023 02:00 PM VA-TOBACCO USE WI 30 MIN OF WAKEUP [facility] Jan 13, 2023 02:00 PM VA-TOBACCO USER EVERY DAY [facility] Jul 03, 2022 09:00 AM VA-TOBACCO FORMER USER [facility] Jul 03, 2022 09:00 AM VA-TOBACCO QUIT 5 TO < 15 YRS [facility] Jul 04, 2021 09:00 AM VA-TOBACCO USE > 1 5 LESS THAN 30 YEARS [facility] Jul 04, 2021 09:00 AM VA-TOBACCO USE ADVICE [facility] Jul 04, 2021 09:00 AM VA-TOBACCO USE SEMI CONDUCTOR ASSEMBLER NO [facility] Jul 04, 2021 09:00 AM VA-TOBACCO USE MED NO [facility] Jul 04, 2021 09:00 AM VA-TOBACCO USE WI 30 MIN OF WAKEUP [facility] Jul 04, 2021 09:00 AM VA-TOBACCO USER SOME DAYS [facility] Apr 30, 2020 10:39 AM VA-TOBACCO FORMER USER [facility] Apr 30, 2020 10:39 AM VA-TOBACCO QUIT 5 TO < 15 YRS [facility] Dec 21, 2018 03:15 PM VA-TOBACCO FORMER USER [facility] Dec 21, 2018 03:15 PM VA-TOBACCO QUIT 1 TO < 5 YRS [facility] Nov 24, 2017 09:54 AM CURRENT SMOKER cigarets [facility] Nov 24, 2017 09:54 AM V1-PT READY TO SHARAN T TOBACCO USE [facility] Mar 25, 2017 01:57 PM CURRENT SMOKER down to 10 cigarettes daily [facility] Mar 25, 2017 01:57 PM V1-PT DECLINES TOB ACCO CESSATION MEDS [facility] Mar 25, 2017 01:57 PM V1-PT READY TO SHARAN T TOBACCO USE [facility] March 04, 2017 02:38 PM CURRENT SMOKER advise stopm [facility] Jul 22, 2016 09:29 AM V1-PT NOT INTEREST ED IN QUIT TOBACCO USE [facility] Nov 21, 2015 09:21 AM CURRENT SMOKER half a pack a day [facility] Nov 21, 2015 09:21 AM V1-PT NOT INTEREST ED IN QUIT TOBACCO USE [facility] Nov 23, 2014 08:51 AM CURRENT SMOKER [facility] Nov 23, 2014 08:51 AM V1-PT READY TO SHARAN T TOBACCO USE [facility] Dec 16, 2013 02:19 PM CURRENT SMOKER 3/4 pack a day [facility] Dec 16, 2013 02:19 PM V1-PT THINKING ABO UT QUIT TOBACCO USE [facility] Advance Directives: All historical and current Section Date Range: From patient's date of to the date document was created. This section includes ALL of a patient's completed or amended PR Advance and Rescinded Directives. The entries below indicate that a directive exists for the patient, but an actual copy is not included with this document. The data comes from all PR facilities. Date Advance Directives Provider Source Dec [...] COVID VACCINE DOSES + 2 BOOSTERS AT [facility] *LAST SEEN FOR TREATMENT: 09/12/2024 S: Pt. is a 64 yo alert [facility] MALE who presents for CONTINUED podiatric examination [...] need of attention. The affected nails are 6-0-5-4-5bilat. There are no superficial painful hyperkeratotic lesions [...] present physical-medical status. Protective sensation utilizing a Foristell-Radha device is 10/10 bilat. *NOTE: *YEARLY COMPLETE [...] INTERESTED IN AN AMWAY TOUR-CRUISE SIMILAR TO [place] BUT GOING TO [employer] FOR WINE TASTING Medication Reconciliation: PERFORMED TODAY [...] JLV. Allergies/ADRs (Tool #5) FACILITY ALLERGY/ADR -------- [place] [facility] [place] [facility] [place] [facility] [facility] OXYCODONE Med [facility] (Tool #1) INCLUDED IN THIS LIST: Alphabetical list of active outpatient prescriptions dispensed from this PR (local) and dispensed from another PR or DoD facility (remote) as well as inpatient orders (local pending and active), local clinic medications, locally documented non-VA medications, and local prescriptions that have or been discontinued in the past 90 days. Non-VA Meds Last Documented On: Aug 25, 2023 NOTE The display of VA prescriptions dispensed from another PR or DoD facility (remote) is limited to active outpatient prescription entries matched to National Drug File at the originating site and may not include some items such as investigational drugs, compounds, etc. NOT INCLUDED IN THIS LIST: Medications self-entered by the patient into personal health records (i.e. [employer]) are NOT included in this list. Non-VA medications documented outside this PR, remote inpatient orders (regardless of status) and remote clinic medications are NOT included in this list. The patient and provider must always discuss medications the patient is taking, regardless of where the medication was dispensed or obtained. OUTPT ALBUTEROL 90MCG (CFC-F) 200D ORAL INHL (Status = Discontinued) INHALE 1 PUFF BY MOUTH FOUR TIMES DAILY NEEDED FOR BRONCHOSPASM Rx# [id number] Last Released: 12/21/23 Qty/Days Supply: 11/03 Rx Expiration Date: 11/04/24 Refills Remainin Indication: FOR BRONCHOSPASM OUTPT ALBUTEROL 90MCG (CFC-F) 200D ORAL INHL (Status = Active) INHALE 1 PUFF BY MOUTH FOUR TIMES DAILY NEEDED FOR BRONCHOSPASM Rx# [id number] Last Released: 11/23/24 Qty/Days Supply: 11/03 Rx Expiration Date: 11/16/25 Refills Remainin Indication: FOR BRONCHOSPASM OUTPT AMLODIPINE BESYLATE 10MG TAB (Status = Active) TAKE ONE TABLET BY MOUTH ONCE DAILY FOR BLOOD PRESSURE/HEART, DO NOT TAKE WITH GRAPEFRUIT JUICE Rx# [id number] Last Released: 09/22/24 Qty/Days Supply: Rx Expiration [...] ONCE DAILY FOR VITAMIN D DEFICIENCY Rx# [id number] Last Released: 10/28/24 Qty/Days Supply: 100/90 Rx Expiration Date: 01/05/25 Refills Remainin Indication: FOR VITAMIN D DEFICIENCY OUTPT CHOLECALCIF 50MCG (D3-2,000UNIT) TAB (Status = Active) TAKE ONE TABLET BY MOUTH ONCE DAILY FOR VITAMIN D DEFICIENCY Rx# [id number] Last Released: 01/09/25 Qty/Days Supply: 100/90 Rx Expiration Date: 11/16/25 Refills Remainin Indication: FOR VITAMIN D DEFICIENCY Non-VA CLONAZEPAM 1MG TAB TAKE ONE TABLET BY MOUTH TWICE DAILY Medication prescribed by Non-VA provider. or tid OUTPT FENOFIBRATE 145MG TAB (Status = Active) TAKE ONE TABLET BY MOUTH ONCE DAILY Rx# [id number] Last Released: 09/08/24 Qty/Days Supply: 90/ Rx Expiration Date: 03/17/25 Refills Remainin Indication: FOR HIGH CHOLESTEROL OUTPT FERROUS GLUCONATE 324MG TAB (Status = Active) TAKE ONE TABLET BY MOUTH EVERY OTHER DAY TO SUPPLEMENT IRON Rx# [id number] Last Released: 10/20/24 Qty/Days Supply: 100 Rx [...] FOR EXCESSIVE PRODUCTION OF STOMACH ACID Rx# [id number] Last Released: 12/16/24 Qty/Days Supply: 180/90 Rx Expiration Date: 03/17/25 Refills Remainin Indication: FOR EXCESSIVE PRODUCTION OF STOMACH ACID Non-VA ONDANSETRON HCL 4MG TAB TAKE ONE TABLET BY MOUTH DIRECVTED Medication prescribed by Non-VA provider. when has panic attacks OUTPT SEMAGLUTIDE 1MG/0.75ML INJ PEN 3ML (Status = Discontinued) INJECT 1MG SUBCUTANEOUSLY ONCE A WEEK FOR TYPE 2 DIABETES MELLITUS Rx# [id number] Last Released: 10/18/24 Qty/Days Supply: Rx Expiration Date: 09/21/25 Refills Remainin Indication: FOR TYPE 2 DIABETES MELLITUS OUTPT SEMAGLUTIDE 1MG/0.75ML INJ PEN 3ML (Status = Active) INJECT 1MG SUBCUTANEOUSLY ONCE A WEEK FOR TYPE 2 DIABETES MELLITUS Rx# [id number] Last Released: 12/21/24 Qty/Days Supply: Rx Expiration Date: 11/16/25 Refills Remainin Indication: FOR TYPE 2 DIABETES MELLITUS Non-VA TRAZODONE HCL 100MG TAB TAKE ONE-HALF TABLET BY MOUTH AT BEDTIME OUTPT VARENICLINE 1MG TAB (Status = Discontinued) TAKE ONE TABLET BY MOUTH TWICE DAILY FOR SMOKING CESSATION Rx# [id number] Last Released: 09/22/24 Qty/Days Supply: Rx Expiration Date: 07/30/25 Refills Remainin Indication: FOR SMOKING CESSATION Non-VA VENLAFAXINE HCL 150MG 24HR SA CAP TAKE 1 CAPSULE BY MOUTH ONCE DAILY Non-VA medication not recommended by VA provider. SUPPLIES OUTPT ACCU-CHEK GUIDE (GLUCOSE) TEST STRIP (Status = Discontinued) USE 1 STRIP TO TEST BLOOD SUGARS DIRECTED Rx# [id number] Last Released: 02/18/24 Qty/Days Supply: 50180 Rx Expiration Date: 11/04/24 Refills Remainin OUTPT ACCU-CHEK GUIDE (GLUCOSE) TEST STRIP (Status = Active) USE 1 STRIP TO TEST BLOOD SUGARS DIRECTED Rx# [id number] Last Released: 11/23/24 Qty/Days Supply: 50/180 Rx Expiration Date: 11/16/25 Refills Remainin /karlene/ OLIMPIA BRIGHT DPM PUMP INSTALLATION AND SERVICER Signed: 01/12/2025 09:24 OLIMPIA BRIGHT
--- OUTSIDE RECORDS SUMMARY | 2025-02-01 16:05 | XMS_ITS | Encounter Summary ---
Author Organization [employer] Address [address] [place] [address] [address] [place] [address] Care Team Providers Care Account Manager [id number] Name Role Phone Unavailable Primary Care Provider Unavailabl e Encounter Details Date Type Department Care Team (Latest Contact Info) Description 02/04/2019 Abstract [facility] CONVERSIONS Dental, Provider, DDS Social History Tobacco [...] Description 03/08/2025 9:00 AM EDT Office Visit [facility] ADULT DENTAL [address] [place] [address] Gabby Jarquin [address] [place] [address] documented as of this encounter Visit Diagnoses Not on filedocumented in this encounter
--- OUTSIDE RECORDS SUMMARY | 2025-02-01 16:05 | XMS_ITS | Encounter Summary ---
Author Name [facility] [place] [place] [facility] [place] Organization [facility] [place] Address [address] [place] [address] Care Team Providers Care Web Methods Developer Name Role Phone AUSTIN BALDWIN Primary Care [...] Relationship to Policy Lomas PATRICIO MULLIGAN-ESME Jones [place] SPECIAL CLASS PATRICIO ERICKSON Nov 14, 2024 PATRICIO MULLIGAN [id number] NICOLE,A NALLELY PATIENT [facility] MEDICAID MEDICAID MEDIC AID Oct 05, 2016 MEDICAI D [id number] NICOLE,A NALLELY PATIENT MEDICAID MEDICAID [facility] STAND BEATRICE Oct 05, 2014 MEDICAI D [id number] NICOLE,A NALLELY PATIENT MEDICARE (WNR) MEDICARE (M) PART A May 05, 2018 PART A [id number] [facility] Dougie RIVERA NALLELY PATIENT MEDICARE (WNR) MEDICARE (M) PART B May 05, 2018 PART B [id number] LAUZIER,A NALLELY PATIENT Selected Encounter This section includes the information on record at SD for the Encounter. Date/Time Encounter Type Encounter Description Reason Provider Source Jul 25, 2024 11:00 AM INFRARED THERAPY [facility] TREATMENT ICD-10-CM M54.2 Cervicalgia NAVEED ALFARO E Encounter Template Text not used by [place] Assessments - Encounter Diagnoses This section includes the primary and secondary diagnoses documented for the Encounter. Date/Time Primary/Secondary Diagnosis Diagnosis Name Provider Source Jul 25, 2024 11:40 AM PRIMARY Cervicalgia NAVEED ALFARO [place] [facility] [place] [facility] Jul 25, 2024 11:40 AM SECONDARY Headache, unspecified NAVEED ALFARO [place] [facility] [place] [facility] Plan of Treatment: Future Appointments (+ 6 months) and Future Tests (+/- 45 days) The Plan of Treatment section includes future care activities for the patient from all [place] [facility] This section includes future appointments and future orders which are active, pending or scheduled. Future Appointments This section includes appointments that were scheduled to occur 6 months from the date of the Encounter, up to a maximum of 20 appointments. The data comes from all [place] treatment facilities. Appointment Date/Time Appointment Type Appointme nt Facility Name Jul 28, 2024 09:30 AM AMBULATORY - MEDICINE [facility] Jul 28, 2024 10:00 AM AMBULATORY - MEDICINE [facility] Jul 29, 2024 03:00 PM AMBULATORY - MEDICINE [place] [facility] [place] [facility] Aug 03, 2024 03:30 PM AMBULATORY - MEDICINE [place] [facility] [place] [facility] Aug 05, 2024 08:30 AM AMBULATORY - MEDICINE [place] [facility] [place] [facility] Aug 11, 2024 08:30 AM AMBULATORY - MEDICINE [place] [facility] [place] [facility] Aug 25, 2024 09:00 AM AMBULATORY - MEDICINE [place] C [facility] [place] [facility] Sep 07, 2024 10:00 AM AMBULATORY - MEDICINE [place] [facility] [place] [facility] Sep 07, 2024 03:00 PM AMBULATORY - MEDICINE [place] C [facility] [place] [facility] Sep 12, 2024 09:00 AM AMBULATORY - MEDICINE [facility] Sep 15, 2024 08:45 AM AMBULATORY - MEDICINE [place] [facility] [place] [facility] Sep 20, 2024 09:30 AM [facility] Sep 20, 2024 10:30 AM [facility] Oct 06, 2024 10:00 AM AMBULATORY - MEDICINE [facility] [place] [facility] Oct 18, 2024 08:30 AM AMBULATORY - MEDICINE [facility] [place] [facility] Nov 07, 2024 01:15 PM AMBULATORY - MEDICINE [facility] [place] [facility] Nov 08, 2024 10:00 AM AMBULATORY - MEDICINE [facility] [place] [facility] Nov 15, 2024 08:30 AM [facility] Dec 05, 2024 02:15 PM AMBULATORY - MEDICINE [facility] [place] [facility] Dec 08, 2024 09:00 AM AMBULATORY - MEDICINE [place] C [facility] [facility] Vital Signs: All taken on the encounter date This section contains inpatient and outpatient Vital Signs collected on the date of the Encounter. Date/Time Temperature Pulse Blood Pressure Respiratory Rate SP02 Pain Height Weight Body Mass Index Source Jul 25, 2024 10:11 AM 97.7 98 127/90 18 97 10 233 36 [place] [facility] [facility] Advance Directives: All historical and current Section Date Range: From patient's date of to the date document was created. This section includes ALL of a patient's completed or amended [place] Advance and Rescinded Directives. The entries below indicate that a directive exists for the patient, but an actual copy is not included with this document. The data comes from all [place] facilities. Date Advance Directives Provider Source Dec [...] lose weight but is finding it difficult. [place] states digestion is generally good. No history of acid reflux or other issues. [place] states bowel movements are normal and unremarkable. [...] ]Pyonex Needle: remove prior to bathing per junior network administrator INFORMED CONSENT: Oral Consent obtained on Jul [...] is required /karlene/ JEFFERY ALFARO LA.C DIPL.AC POOL ATTENDANT Signed: 07/25/2024 11:58 JEFFERY ALFARO [facility]TRL [facility]
--- OUTSIDE RECORDS SUMMARY | 2025-02-01 16:05 | XMS_ITS | Encounter Summary ---
Author Name [facility] [place] [facility] [place] [facility] [place] Address [address] [place] [address] Care Team Providers Care Blocker Heated Metal Forms Name Role Phone AUSTIN BALDWIN Primary [facility] Provider [facility] Insurance Providers: All historical and [...] Relationship to Policy Lomas PATRICIO MULLIGAN-ESME R [place] SPECIAL CLASS PATRICIO ERICKSON Nov 14, 2024 PATRICIO MULLIGAN [id number] Dougie RIVERA PATIENT [facility] MEDICAID MEDICAID MEDIC AID Oct 05, 2016 MEDICAI D [id number] NICOLE,A NALLELY PATIENT MEDICAID MEDICAID [facility] Oct 05, 2014 MEDICAI D [id number] Dougie RIVERA NALLELY PATIENT MEDICARE (WNR) MEDICARE (M) PART A May 05, 2018 PART A [id number] [facility] Dougie RIVERA NALLELY PATIENT MEDICARE (WNR) MEDICARE (M) PART B May 05, 2018 PART B [id number] Dougie RIVERA PATIENT Selected Encounter This section includes the information on record at [place] for the Encounter. Date/Time Encounter Type Encounter Description Reason Provider Source Mar 15, 2024 09:00 AM PSYTX W PT 60 MINUTES PRIMARY CARE/MEDICINE ICD-10-CM Z72.0 Tobacco use SCARLET LUGO Nancy Encounter Template Text not used by [place] Assessments - Encounter Diagnoses This section includes the primary and secondary diagnoses documented for the Encounter. Date/Time Primary/Secondary Diagnosis Diagnosis Name Provider Source Mar 15, 2024 10:53 AM PRIMARY Tobacco use JESSE CRUZ Plan of Treatment: Future Appointments (+ 6 months) and Future Tests (+/- 45 days) The Plan of Treatment section includes future care activities for the patient from all [place] [facility]. This section includes future appointments and future orders which are active, pending or scheduled. Future Appointments This section includes appointments that were scheduled to occur 6 months from the date of the Encounter, up to a maximum of 20 appointments. The data comes from all [place] treatment facilities. Appointment Date/Time Appointment Type Appointme nt Facility Name Mar 16, 2024 09:00 AM [facility]ULATORY [place]ICINE [facility] [place] [facility] Mar 16, 2024 11:00 AM [facility] Mar 22, 2024 09:00 AM [facility] MEDICINE [facility] Mar 24, 2024 09:00 AM [facility]ATORY [facility]ICINE [facility] [place] [facility] Mar 31, 2024 10:00 AM AMBULATORY - NONE [facility] [place] [facility] Apr 05, 2024 10:00 AM [facility] Apr 05, 2024 01:30 PM [facility] Apr 19, 2024 10:30 AM [facility] MEDICINE [facility] [place] [facility] Apr 26, 2024 10:00 AM [facility] Apr 27, 2024 10:30 AM [facility] MEDICINE [facility] [place] [facility] May 03, 2024 09:00 AM [facility] May 10, 2024 01:00 PM AMBULATORY - MEDICINE [facility] [place] [facility] May 20, 2024 09:00 AM [facility] May 31, 2024 03:30 PM AM[facility]UL[facility] MEDICINE [facility] [place] [facility] Jun 14, 2024 03:30 PM AMBULATORY - MEDICINE [place] [facility] [place] [facility] Jun 23, 2024 09:00 AM AMBULATORY - MEDICINE [place] [facility] [place] [facility] Jul 05, 2024 03:30 PM AMBULATORY - MEDICINE [place] [facility] [place] [facility] Jul 15, 2024 11:30 AM AMBULATORY - MEDICINE [facility] Jul 25, 2024 09:30 AM AMBULATORY - MEDICINE [place] [facility] [place] [facility] Jul 25, 2024 10:00 AM AMBULATORY - MEDICINE [place] [facility] [place] [facility] Active, Pending, and Scheduled Orders This section includes a listing of several types of active, pending, and scheduled orders, including clinic medications orders, diagnostic test orders, procedure orders and consult orders; where the start date of the order is 45 days before the date of the Encounter or 45 days after the date of theEncounter. The data comes from all [place] treatment facilities. Test Date/Time Test Type Test Details Facility Name February 22, 2024 12:00 AM Laboratory - Chemi shaila Order HEMOGLOBIN A1C PANEL BLOOD (LAV-BLOOD) [facility] Lab Results: +/- 30 days of the encounter This section includes the Chemistry and Hematology Lab Results on record with [place] for the patient. Radiology Reports and Pathology Reports are provided separately, in subsequent sections. Lab Results This section contains the Chemistry/Hematology Results that were resulted 30 days before or 30 daysafter the date of the Encounter. Date/Time Source Result Type Result - Unit Interpretation Reference Range Specimen Type Comment Apr 05, 2024 08:13 AM [facility] VITAMIN D (25-OH) SERUM Specimen Type: SERUM No comment entered. Ordering Provider: ALFREDO SANDERS Report Released Date/Time: Jan 19, 2024 04:58 PM Reporting Lab: [address] [address] Performing Lab: [address] [address] VITAMIN D (25-OH) 43 ng/mL 20-50 Apr 05, 2024 08:13 AM [facility] FERRITIN SERUM Specimen Type: SERUM No comment entered. Ordering Provider: ALFREDO SANDERS Report Released Date/Time: Jan 19, 2024 04:58 PM Reporting Lab: [facility] [address] [facility] [address] Performing Lab: [facility] [address] [facility] [address] FERRITIN 33 ng/mL 20-300 Apr 05, 2024 08:13 AM [facility] BASIC METABOLIC PANEL (non-fasting) SERUM Spe cimen Type: SERUM No comment entered. Ordering Provider: ALFREDO SANDERS Report Released Date/Time: Jan 19, 2024 04:58 PM Reporting Lab: [facility] [address] [facility] [address] Performing Lab: [facility] [address] [facility] [address] UREA NITROGEN 14 mg/dL 7-25 GLUCOSE 128 mg/dL H 65-100 SODIUM 138 mmol/L 135-145 POTASSIUM 4.5 mmol/L 3.5-5.0 CHLORIDE 103 mmol/L 100-110 CO2 24 meq/L 20-30 CREATININE, Serum 1.35 mg/dL 0.50-1.40 eGFR(CKD-EPI 2020) 59 mL/min L >60 Apr 05, 2024 08:13 AM [facility] MICROALBUMIN CREATININE RATIO PANEL URINE Spe cimen Type: URINE No comment entered. Ordering Provider: ALFREDO SANDERS Report Released Date/Time: Jan 19, 2024 04:58 PM Reporting Lab: [facility] [address] [facility] [address] Performing Lab: [address] [address] MICROALBUMIN/CREATININE RATIO 70.7 mg/g H 0-29.9 MICROALBUMIN,QUANTITATIVE 11.0 mg/dL RR UNAVAIL CREATININE URINE 155.54 mg/dL Apr 05, 2024 08:13 AM [facility] IRON & TIBC PANEL SERUM Specimen Type: SERUM No comment entered. Ordering Provider: ALFREDO SANDERS Report Released Date/Time: Jan 19, 2024 04:58 PM Reporting Lab: [facility] [address] [facility] [address] Performing Lab: [facility] [address] TIBC 494 ug/dL H 204-475 IRON 110 ug/dL 40-160 Transferrin Saturation 22.3 20.0-50.0 Apr 05, 2024 08:13 AM [facility] CBC BLOOD Specimen Type: BLOOD No comment entered. Ordering Provider: ALFREDO SANDERS Report Released Date/Time: Jan 19, 2024 04:58 PM Reporting Lab: [facility] [address] [address] Performing Lab: [address] [address] WBC 8.57 10*3/uL 4.50-11.00 RBC 5.34 10*6/uL 4.23-5.66 HGB 16.0 g/dL 12.8-17 HCT 46.1 39.2-50.4 MCV 86.3 fL 82-99 MCHC 34.7 g/dL 30.8-35.1 PLT 278 10*3/uL 140-360 RDW-CV 12.6 12.0-16.0 MCH 30.0 pg 26.2-32.6 February 23, 2024 09:10 AM [facility] FERRITIN SERUM Sp ecimen Type: SERUM No comment entered. Ordering Provider: AUSTIN BALDWIN Report Released Date/Time: Dec 22, 2023 10:15 AM Reporting Lab: [facility] [address] [address] Performing Lab: [address] [address] FERRITIN 46 ng/mL 20-300 February 23, 2024 09:10 AM [place] HEMOGLOBIN A1C PANEL BLOOD Specimen T ype: [...] Dec 22, 2023 10:15 AM Reporting [facility] [address] [facility] [address] Performing Lab: [place] [facility] [address] [facility] [address] HEMOGLOBIN A1C 6.4 H 4.0-5.6 February 23, 2024 09:10 AM [place] MICROALBUMIN CREATININE RATIO PANEL URINE Specimen Type: URINE No comment entered. Ordering Provider: AUSTIN BALDWIN Report Released Date/Time: Dec 22, 2023 10:15 AM Reporting Lab[facility] [address] [facility] [address] Performing Lab: [facility] [address] [address] MICROALBUMIN/CREATININE RATIO 22.3 mg/g 0-29.9 MICROALBUMIN,QUANTITATIVE 2.5 mg/dL RR U NAVAIL CREATININE URINE 112.32 mg/dL February 23, 2024 09:10 AM [place] PSA SERUM Sp ecimen Type: SERUM No comment entered. Ordering Provider: AUSTIN BALDWIN Report Released Date/Time: Dec 22, 2023 10:15 AM Reporting Lab[facility] [place] [facility] [address] [facility] [address] Performing Lab: [facility] [address] [address] PSA 0.63 ng/mL 0.00-4.00 February 23, 2024 09:10 AM [place] URIC ACID SERUM Sp ecimen Type: SERUM No comment entered. Ordering Provider: AUSTIN BALDWIN Report Released Date/Time: Dec 22, 2023 10:15 AM Reporting Lab: [facility] [address] [facility] [address] Performing Lab: [facility] [address] URIC ACID 4.8 mg/dL 3.5-7.2 February 23, 2024 09:10 AM [place] TSH SERUM Sp ecimen Type: SERUM No comment entered. Ordering Provider: AUSTIN BALDWIN Report Released Date/Time: Dec 22, 2023 10:15 AM Reporting Lab: [facility] [address] [facility] [address] Performing Lab: [facility] [address] [facility] [address] TSH 1.89 u[IU]/mL 0.35-5.00 February 23, 2024 09:10 AM [place] CBC AND DIFF (AUTO) BLOOD Specimen Ty pe: BLOOD No comment entered. Ordering Provider: AUSTIN BALDWIN Report Released Date/Time: Dec 22, 2023 10:15 AM Reporting Lab: [facility] [address] [facility] [address] Performing Lab: [facility] [address] [address] WBC 9.84 10*3/uL 4.50-11.00 RBC 4.93 10*6/uL 4.23-5.66 HGB 15.0 g/dL 12.8-17 HCT 43.5 39.2-50.4 MCV 88.2 fL 82-99 MCHC 34.5 g/dL 30.8-35.1 PLT 254 10*3/uL 140-360 RDW-CV 13.0 12.0-16.0 Beckham, Abs 0.84 10*3/uL 0.30-1.10 MCH 30.4 pg 26.2-32.6 Neut % 69.6 43.7-75.8 Lymph % 18.7 14.0-42.3 Beckham % 8.5 5.1-13.7 Eos % 1.7 0.4-6.8 Baso % 0.9 0.1-2.0 Neut, Abs 6.84 10*3/uL 2.20-7.60 Lymph, Abs 1.84 10*3/uL 1.00-3.20 Eos, Abs 0.17 10*3/uL 0.03-0.44 Baso, Abs 0.09 10*3/uL 0.01-0.13 Immature Gran % 0.6 0.0-0.7 Immature Gran, Abs 0.06 10*3/uL 0.00-0.0 6 February 23, 2024 09:10 AM [place] LIVER FUNCTION SERUM Specimen Type: SERUM No comment entered. Ordering Provider: AUSTIN BALDWIN Report Released Date/Time: Dec 22, 2023 10:15 AM Reporting Lab: [address] [address] Performing Lab: [address] [address] PROTEIN,TOTAL 6.3 g/dL 6.0-8.3 ALBUMIN 3.7 g/dL 3.5-5.0 ALKALINE PHOSPHATASE 29 U/L L 40-150 AST 45 U/L H 5-34 ALT 54 U/L BILIRUBIN, TOTAL 0.3 mg/dL 0.2-1.2 February 23, 2024 09:10 AM [facility] URINALYSIS URINE S pecimen Type: URINE Comment: If Glucose = >500 and Ketones are positive, please alert the Physician. Ordering Provider: AUSTIN BALDWIN Report Released Date/Time: Dec 22, 2023 10:15 AM Reporting Lab: [address] [address] Performing Lab: [address] [address] UA COLOR Light-Yellow Yellow UA APPEARANCE Clear Clear UA GLUCOSE NEGATIVE mg/dL Negative UA KETONES NEGATIVE mg/dL Negative UA BLOOD NEGATIVE mg/dL Negative UA PROTEIN NEGATIVE mg/dL Negative UA NITRITE NEGATIVE mg/dL Negative UA BILIRUBIN NEGATIVE mg/dL Negative UA SPECIFIC GRAVITY 1.019 1.016-1.022 UA pH 6.5 5.0-9.0 UA UROBILINOGEN <2.0 mg/dL <2.0 UA LEUKOCYTE NEGATIVE Negative February 23, 2024 09:10 AM [place] BASIC METABOLIC PANEL (fasting) SERUM Specimen Type: SERUM No comment entered. Ordering Provider: AUSTIN BALDWIN Report Released Date/Time: Dec 22, 2023 10:15 AM Reporting Lab: [address] [address] Performing Lab: [address] [address] UREA NITROGEN 11 mg/dL 7-25 GLUCOSE 122 mg/dL H 65-100 SODIUM 140 mmol/L 135-145 POTASSIUM 4.4 mmol/L 3.5-5.0 CHLORIDE 107 mmol/L 100-110 CO2 24 meq/L 20-30 CREATININE, Serum 1.14 mg/dL 0.50-1.40 eGFR(CKD-EPI 2020) 72 mL/min >60 February 23, 2024 09:10 AM [place] LIPID PANEL FASTING SERUM Specimen Ty pe: SERUM No comment entered. Ordering Provider: AUSTIN BALDWIN Report Released Date/Time: Dec 22, 2023 10:15 AM Reporting Lab: [facility] [address] [address] Performing Lab: [address] [address] CHOLESTEROL 145 mg/dL TRIGLYCERIDE 241 mg/dL H 0-150 LDL calculated 59 mg/dL 0-129 CHOL/HDL 3.8 HDL CHOLESTEROL 38 mg/dL L 40-60 February 23, 2024 09:08 AM [place] CREATININE (eGFR 2020) SERUM Specimen Type: SERUM Comment: *LIPID PANEL FASTING Not Performed: February 23, 2024@09:18 by [id number] *PHYSICIAN'S ASSISTANT Reason: duplicate Ordering Provider: SWAPNIL SCHOFIELD Report Released Date/Time: Feb 01, 2024 01:14 PM Reporting Lab: [facility] [address] [address] Performing Lab: [address] [address] CREATININE, Serum 1.13 mg/dL 0.50-1.40 eGFR(CKD-EPI 2020) 73 mL/min >60 Social History: Smoking Status (Most current) and Tobacco Use (All prior to encounter date) This section includes the most current, and the historical, smoking and tobacco- related health factors from the [place] facility where the Encounter took place. Current Smoking Status This section includes the most current smoking, or tobacco-related health factor, from the [place] facility where the Encounter took place. Date/Time Current Smoking Status Comment Michela seals Dec 16, 2023 10:00 AM [place]-TOBACCO USER EVERY DAY [place] Tobacco Use History This section includes a history of the smoking, or tobacco-related health factors, that were collected on or before the date of the Encounter. The data comes from the [place] facility where the Encounter took place. Date/Time Smoking Status/Tobacco Use Comment F acility Dec 16, 2023 10:00 AM VA-TOBACCO USE > 1 5 LESS THAN 30 YEARS [place] Dec 16, 2023 10:00 AM VA-TOBACCO USE 30 YEARS OR MORE [facility] Dec 16, 2023 10:00 AM VA-TOBACCO USE ADVICE [place] Dec 16, 2023 10:00 AM VA-TOBACCO USE SIGNAL WORKER NO [place] Dec 16, 2023 10:00 AM VA-TOBACCO USE SIGNAL WORKER YES [facility] Dec 16, 2023 10:00 AM VA-TOBACCO USE MED NO [place] Dec 16, 2023 10:00 AM VA-TOBACCO USE MED YES [place] Dec 16, 2023 10:00 AM VA-TOBACCO USE WI 30 MIN OF WAKEUP [place] Dec 16, 2023 10:00 AM VA-TOBACCO USER EVERY DAY [place] Jan 13, 2023 02:00 PM VA-TOBACCO USE 1 T O < 5 YEARS [facility] Jan 13, 2023 02:00 PM VA-TOBACCO USE ADVICE [place] Jan 13, 2023 02:00 PM VA-TOBACCO USE SIGNAL WORKER NO [place] Jan 13, 2023 02:00 PM VA-TOBACCO USE MED NO [place] Jan 13, 2023 02:00 PM VA-TOBACCO USE WI 30 MIN OF WAKEUP [place] Jan 13, 2023 02:00 PM VA-TOBACCO USER EVERY DAY [facility] Jul 03, 2022 09:00 AM VA-TOBACCO FORMER USER [place] Jul 03, 2022 09:00 AM VA-TOBACCO QUIT 5 TO < 15 YRS [place] Jul 04, 2021 09:00 AM VA-TOBACCO USE > 1 5 LESS THAN 30 YEARS [facility] Jul 04, 2021 09:00 AM VA-TOBACCO USE ADVICE [place] Jul 04, 2021 09:00 AM VA-TOBACCO USE SIGNAL WORKER NO [place] Jul 04, 2021 09:00 AM VA-TOBACCO USE MED NO [place] Jul 04, 2021 09:00 AM VA-TOBACCO USE WI 30 MIN OF VININGUP [facility] Jul 04, 2021 09:00 AM VA-TOBACCO USER SOME DAYS [place] Apr 30, 2020 10:39 AM VA-TOBACCO FORMER USER [place] Apr 30, 2020 10:39 AM VA-TOBACCO QUIT 5 TO < 15 YRS [place] Dec 21, 2018 03:15 PM VA-TOBACCO FORMER USER [facility] Dec 21, 2018 03:15 PM VA-TOBACCO QUIT 1 TO < 5 YRS [place] Nov 24, 2017 09:54 AM CURRENT SMOKER cigarets [place] Nov 24, 2017 09:54 AM V1-PT READY TO SHARAN T TOBACCO USE [place] Mar 25, 2017 01:57 PM CURRENT SMOKER down to 10 cigarettes daily [place] Mar 25, 2017 01:57 PM V1-PT DECLINES TOB ACCO CESSATION MEDS [place] Mar 25, 2017 01:57 PM V1-PT READY TO SHARAN T TOBACCO USE [place] March 04, 2017 02:38 PM CURRENT SMOKER advise stopm [facility] Jul 22, 2016 09:29 AM V1-PT NOT INTEREST ED IN QUIT TOBACCO USE [place] Nov 21, 2015 09:21 AM CURRENT SMOKER half a pack a day [facility] Nov 21, 2015 09:21 AM V1-PT NOT INTEREST ED IN QUIT TOBACCO USE [place] Nov 23, 2014 08:51 AM CURRENT SMOKER [facility] Nov 23, 2014 08:51 AM V1-PT READY TO SHARAN T TOBACCO USE [place] Dec 16, 2013 02:19 PM CURRENT SMOKER 3/4 pack a day [place] Dec 16, 2013 02:19 PM V1-PT THINKING ABO UT QUIT TOBACCO USE [place] Advance Directives: All historical and current Section Date Range: From patient's date of to the date document was created. This section includes ALL of a patient's completed or amended [place] Advance and Rescinded Directives. The entries below indicate that a directive exists for the patient, but an actual copy is not included with this document. The data comes from all [place] facilities. Date Advance Directives Provider Source Dec 12, 2014 ADVANCE DIRECTIVE KATRIN GREEN Encounter Notes: All associated encounter notes This section contains the clinical notes associated to the Encounter. Date/Time Encounter Note(s) Provider Source Mar 15, 2024 09:51 AM SMOKING CESSATION NOTE: LOCAL TITLE: TOBACCO CESSATION NOTE STANDARD TITLE: SMOKING CESSATION NOTE DATE OF NOTE: MAR 15, 2024@09:51 ENTRY DATE: MAR 15, 2024@09:51:58 AUTHOR: JESSE CRUZ COSIGNER: LUCINA LUGO URGENCY: STATUS: COMPLETED TOBACCO CESSATION NOTE Has ADDENDA DATE: 03/15/24 DURATION OF COUNSELIN min DX: Tobacco Use Disorder, mild REASON FOR ENCOUNTER: attended the 4th session for tobacco cessation. SUMMARY OF SESSION: Current Session focused on AARM Strategy for coping with tobacco triggers, and coping with high risk situations. Phyllis stated he increased his smoking to approximately 15 cigarettes daily. He discussed how house sitting the past two weeks increased his boredom, which led to smoking. We spent additional time exploring boredom and re-visiting specific ways [place] can counteract it using the AARM strategy and other cognitive techniques. [place] discussed how he also plans to cope with being around people who smoke. Phyllis initially stated his quit day was 03/14 but noted today he thought it was today. However, we discussed his non-VA psychiatrist's approval for him to use Chantix. Phyllis's [facility] pharmacist is waiting to receive confirmation from 's psychiatrist before prescribing. Because of this, Phyllis elected to move his quit day to be aligned with anticipated Chantix usage. INTERVENTIONS: Psychoeducation regarding AARM (avoiding, altering, replacing, and mentally coping) with triggers was discussed. IMPRESSIONS: Phyllis is currently motivated to quit tobacco but seems to have the most challenges with boredom and thoughts related to tobacco. PLAN: 1) Phyllis will return on 03/22 at 9 am via [facility], RTC placed. We will focus on targeting boredom triggers and check-in on the status of being prescribed Chantix. Will further review quit day prep and working with slips as his new quit day is determined based on Chantix usage. 2) Phyllis's pharmacist plans to follow up with [place]'s psychiatrist. Phyllis was also given his pharmacist's fax number to relay to his psychiatrist. SUPERVISION: This case is supervised by Lucina Lugo, Ph.D., licensed psychologist. Diagnosis, treatment plan, and response to care are discussed in a standard weekly, 60 minute individual supervision meeting. /karlene/ JESSE CRUZ MA Medical Secretary Receptionist Signed: 03/15/2024 10:54 /karlene/ Lucina Lugo, PhD Clinical Psychologist Cosigned: 03/15/2024 11:51 Receipt Acknowledged By: 03/16/2024 08:08 /karlene/ JERAMY MASON Advanced [employer] Casting Machine Operator 03/15/2024 ADDENDUM STATUS: COMPLETED WHOLE HEALTH COACHING SKILLS Coaching or Motivational Interviewing skills used. I have reviewed this case and concur with the clinical impressions and recommendations made by this trainee who is under my clinical supervision. /es/ Lucina Lugo PhD Clinical Psychologist Signed: 03/15/2024 11:52 JESSE CRUZ Feb 02, 2024 09:00 AM SMOKING CESSATION CONSULT: LOCAL TITLE: CONSULT REPORT/TOBACCO CESSATION STANDARD TITLE: SMOKING CESSATION CONSULT DATE OF NOTE: FEB 02, 2024@09:00 ENTRY DATE: MAR 15, 2024@08:08:11 AUTHOR: LUCINA LUGO EXP COSIGNER: URGENCY: STATUS: COMPLETED please see 02/01 note which serves as the consult reply. /karlene/ Lucina Lugo PhD Clinical Psychologist Signed: 03/15/2024 08:08 LUCINA LUGO
--- OUTSIDE RECORDS SUMMARY | 2025-02-01 16:05 | XMS_ITS ---
Author Name [facility] [place] Organization [facility] [place] Address [address] [place] [address] Care Team Providers Care Warehouse Shipper Name Role Phone AUSTIN BALDWIN Primary Care [...] Relationship to Policy Lomas PATRICIO MULLIGAN-ESME [place] SPECIAL [facility] PATRICIO ERICKSON Nov 14, 2024 PATRICIO MULLIGAN [id number] NICOLE,A NALLELY PATIENT [facility] MEDICAID MEDICAID MEDIC AID Oct 05, 2016 MEDICAI D [id number] NICOLE,A NALLELY PATIENT MEDICAID MEDICAID [facility] STAND [place] Oct 05, 2014 MEDICAI D [id number] NICOLE,A NALLELY PATIENT MEDICARE (WNR) MEDICARE (M) PART A May 05, 2018 PART A [id number] [facility] Dougie RIVERA NALLELY PATIENT MEDICARE (WNR) MEDICARE (M) PART B May 05, 2018 PART B [id number] [facility] LAUZIER,A NALLELY PATIENT Selected Encounter This section includes the information on record at [place] for the Encounter. Date/Time Encounter Type Encounter Description Reason Pro vider Source Jan 30, 2025 03:00 PM Outpatient Encounter COMMUNITY CARE CONSULT IHE Encounter Template Text not used by [place] Plan of Treatment: Future Appointments (+ 6 months) and Future Tests (+/- 45 days) The Plan of Treatment section includes future care activities for the patient from all [place] treatmentfacilities. This section includes future appointments and future orders which are active, pending or scheduled. Future Appointments This section includes appointments that were scheduled to occur 6 months from the date of the Encounter, up to a maximum of 20 appointments. The data comes from all [place] treatment facilities. Appointment Date/Time Appointment Type Appointme nt Facility Name February 08, 2025 01:00 PM AM[place]ULATORY [place] [facility] February 13, 2025 01:00 PM [facility] - [facility]ICINE [facility] Mar 14, 2025 08:30 AM [facility] Mar 14, 2025 09:00 AM AMBULATORY MEDICINE [facility] May 18, 2025 09:00 AM [facility] Jun 15, 2025 08:30 AM [facility]ULATORY - MEDICINE [facility] Advance Directives: All historical and current Section Date Range: From patient's date of to the date document was created. This section includes ALL of a patient's completed or amended [place] Advance and Rescinded Directives. The entries below indicate that a directive exists for the patient, but an actual copy is not included with this document. The data comes from all [facility]. Date Advance Directives Provider Source Dec 12, 2014 ADVANCE DIRECTIVE KATRIN GREEN Encounter Notes: All associated encounter notes This section contains the clinical notes associated to the Encounter. Date/Time Encounter Note(s) Provider Source Jan 30, 2025 03:00 PM NONVA NOTE: LOCAL TITLE: COMMUNITY CARE-RICKEY SELF PRESENTING CARE COORD PLAN STANDARD TITLE: NONVA NOTE DATE OF NOTE: JAN 30, 2025@15:00 ENTRY DATE: JAN 30, 2025@15:01:07 AUTHOR: GISELE WYNN COSIGNER: URGENCY: STATUS: COMPLETED Emergency Notification Intake Date Presenting to the Facility: Dec Method of Contact: Notified from ECR worklist Notification ID: [id number] [facility] Referral #: [id number] [facility] Name: Hospital: [facility] Address: City: [place]: [place] Zip Code: Phone : Community Facility Point of Contact: Name: Maegan Phone: Chief complaint: NAUSEA,VOMITING,POOR PO INTAKE Primary Diagnosis: Disposition Discharged Date of discharge: Dec Discharge to Comment: ER Only /es/ GISELE MCLAIN Signed: 01/30/2025 15:03 Receipt Acknowledged By: * AWAITING SIGNATURE * YOLANDA DIAZ DAWN [facility]
--- OUTSIDE RECORDS SUMMARY | 2025-02-01 16:05 | XMS_ITS | Encounter Summary ---
Author Organization [employer] Address [address] [place] [address] [address] [place] [address] Care Team Providers Care Wooden Fence Erector Name Role Phone Unavailable Primary Care Provider Unavailabl e Encounter Details Date Type Department Care Team (Latest Contact Info) Description 12/06/2020 Abstract [facility] CONVERSIONS Dental, Provider, DDS Social History [...] Description 03/08/2025 9:00 AM EDT Office Visit [facility] ADULT DENTAL [address] [place] [address] Gabby Jarquin [address] [place] [address] documented as of this encounter Visit Diagnoses Not on filedocumented in this encounter
--- OUTSIDE RECORDS SUMMARY | 2025-02-01 16:05 | XMS_ITS ---
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 Cabin Class Name Role Phone AUSTIN BALDWIN Primary Care [...] Relationship to Policy Lomas PATRICIO MULLIGAN-WN R [place] SPECIAL CLASS PATRICIO ERICKSON Nov 14, 2024 PATRICIO MULLIGAN [id number] NICOLE,A NALLELY PATIENT [facility] MED[facility] MEDICAID MEDIC AID Oct 05, 2016 MEDICAI D [id number] NICOLE,A NALLELY PATIENT MEDICAID MEDICAID [facility] STAND [place]ICE Oct 05, 2014 MEDICAI D [id number] NICOLE,Dougie NALLELY PATIENT MEDICARE (WNR) MEDICARE (M) PART A May 05, 2018 PART A [id number] Dougie RIVERA NALLELY PATIENT MEDICARE (WNR) MEDICARE (M) PART B May 05, 2018 PART B [id number] [phone] [id number] Dougie RIVERA PATIENT Selected Encounter This section includes the information on record at [place] for the Encounter. Date/Time Encounter Type Encounter Description Reason Provider Source Jul 25, 2024 10:00 AM OFFICE O/P EST LOW 20 MIN PRIMARY CARE/MEDICINE ICD-10-CM M43.6 ARCADIO Obregon [facility] Encounter Template Text not used by [place] Assessments - Encounter Diagnoses This section includes the primary and secondary diagnoses documented for the Encounter. Date/Time Primary/Secondary Diagnosis Diagnosis Name Provider Source Jul 25, 2024 10:25 AM PRIMARY ARCADIO Obregon [place] [facility] [place] [facility] Plan of Treatment: Future Appointments (+ 6 months) and Future Tests (+/- 45 days) The Plan of Treatment section includes future care activities for the patient from all [place] treatmentfacilities. This section includes future appointments and future orders which are active, pending or scheduled. Future Appointments This section includes appointments that were scheduled to occur 6 months from the date of the Encounter, up to a maximum of 20 appointments. The data comes from all [place] treatment facilities. Appointment Date/Time Appointment Type Appointme nt Facility Name Jul 28, 2024 09:30 AM AMBULATORY - MEDICINE [facility] Jul 28, 2024 10:00 AM AMBULATORY - MEDICINE [facility] Jul 29, 2024 03:00 PM AMBULATORY [place] [facility] [place] [facility] Aug 03, 2024 03:30 PM AM[place]UL[place]ORY [place] [facility] [facility] [place] [facility] Aug 05, 2024 08:30 AM AM[place]UL[place]ORY [place] [facility] [facility] [place] [facility] Aug 11, 2024 08:30 AM AM[place]ULATORY [place] [facility] [place] [facility] Aug 25, 2024 09:00 AM AM[place] [facility] [facility] [place] [facility] Sep 07, 2024 10:00 AM AMBULATORY [place] [facility] [place] [facility] Sep 07, 2024 03:00 PM AM[place]ULATORY [place] [facility] [facility] [place] [facility] Sep 12, 2024 09:00 AM AMBULATORY - MEDICINE [facility] Sep 15, 2024 08:45 AM AMBULATORY [place]ICINE [place] [facility] [place] [facility] Sep 20, 2024 09:30 AM [facility] [place] [facility] [place] Sep 20, 2024 10:30 AM [facility] [place] [facility] [place] Oct 06, 2024 10:00 AM [facility] [place] [facility] [place] [facility] Oct 18, 2024 08:30 AM AMBULATORY [facility] MEDICINE [facility] [place] [facility] Nov 07, 2024 01:15 PM AMBULATORY - MEDICINE [facility] [place] [facility] Nov 08, 2024 10:00 AM AM[facility]ULATORY [facility]INE [facility] [place] [facility] Nov 15, 2024 08:30 AM [facility] Dec 05, 2024 02:15 PM [facility]ICINE [facility] [place] [facility] Dec 08, 2024 09:00 AM AMBULATORY - MEDICINE [facility] [place] [facility] Vital Signs: All taken on the encounter date This section contains inpatient and outpatient Vital Signs collected on the date of the Encounter. Date/Time Temperature Pulse Blood Pressure Respiratory Rate SP02 Pain Height Weight Body Mass Index Source Jul 25, 2024 10:11 AM 97.7 98 127/90 18 97 10 233 36 [place] [facility] [place] [facility] Advance Directives: All historical and current Section Date Range: From patient's date of to the date document was created. This section includes ALL of a patient's completed or amended [place] Advance and Rescinded Directives. The entries below indicate that a directive exists for the patient, but an actual copy is not included with this document. The data comes from all [place] facilities. Date Advance Directives Provider Source Dec 12, 2014 ADVANCE DIRECTIVE KATRIN GREEN Encounter Notes: All associated encounter notes This section contains the clinical notes associated to the Encounter. Date/Time Encounter Note(s) Provider Source Jul 25, 2024 10:13 AM PHYSICIAN CLINICAL ASST NOTE: LOCAL TITLE: PA NOTE STANDARD TITLE: PHYSICIAN CLINICAL ASST NOTE DATE OF NOTE: JUL 25, 2024@10:13 [...] range all greenberg due to pain. MDM: requests soft collar. Discussion of R/B/A to use and limited time to prevent atrophy/weakening of muscles. Norton verbalized understanding. Flexeril and Tylenol as prescribed. Keep Acupuncture appointment for further assistance with pain/ range as scheduled for 11 am today. RTC PRN. ASSESSMENT/PLAN Torticollis as above able to verbalize understanding of plan of care and agrees. >> MEDICATIONS Reviewed and reconciled with /karlene/ ARCADIO MUNOZ MS,PA-C PHYSICIAN CLINICAL ASST Signed: 07/25/2024 10:31 ARCADIO JOHNSON [place] [facility]
--- OUTSIDE RECORDS SUMMARY | 2025-02-01 16:05 | XMS_ITS | Encounter Summary ---
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 Name Role Phone AUSTIN BALDWIN [facility] Insurance Providers: All historical and [...] Relationship to Policy Lomas PATRICIO MULLIGAN-WN R IN SPECIAL CLASS PATRICIO ERICKSON Nov 14, 2024 PATRICIO MULLIGAN [id number] Dougie RIVERA PATIENT [facility] MEDICAID MEDICAID MEDIC AID Oct 05, 2016 MEDICAI D [id number] NICOLE,A NALLELY PATIENT MEDICAID MEDICAID [facility] Oct 05, 2014 MEDICAI D [id number] Dougie RIVERA ANLLELY PATIENT MEDICARE (WNR) MEDICARE (M) PART A May 05, 2018 PART A [id number] [facility] [phone] Dougie RIVERA NALLELY PATIENT MEDICARE (WNR) MEDICARE (M) PART B May 05, 2018 PART B [id number] [facility] Dougie RIVERA PATIENT Selected Encounter This section includes the information on record at [place] for the Encounter. Date/Time Encounter Type Encounter Description Reason Provider Source Dec 19, 2024 10:00 AM MTMS BY ANJALI SNEED 15 MIN CLINICAL PHARMACY ICD-10-CM E11.9 Type 2 diabetes mellitus without complications SWAPNIL NEWMAN Nancy Encounter Template Text not used by [place] Assessments - Encounter Diagnoses This section includes the primary and secondary diagnoses documented for the Encounter. Date/Time Primary/Secondary Diagnosis Diagnosis Name Provider Source Dec 19, 2024 10:54 AM PRIMARY Type 2 diabetes mellitus without complications SWAPNIL NEWMAN [facility] Plan of Treatment: Future Appointments (+ 6 months) and Future Tests (+/- 45 days) The Plan of Treatment section includes future care activities for the [facility] [place] [facility] This section includes future appointments and future orders which are active, pending or scheduled. Future Appointments This section includes appointments that were scheduled to occur 6 months from the date of the Encounter, up to a maximum of 20 appointments. The data comes from all [place] treatment facilities. Appointment Date/Time Appointment Type Appointme nt Facility Name Dec 28, 2024 03:00 PM AMBULATORY - MEDICINE [place] [facility] [place] [facility] Jan 09, 2025 01:30 PM AMBULATORY - MEDICINE [facility] [place] [facility] Jan 12, 2025 09:00 AM [facility]ULATORY - MEDICINE [facility] Jan 26, 2025 09:30 AM AMBULATORY - MEDICINE [facility] [place] [facility] February 08, 2025 01:00 PM AMBULATORY - MEDICINE IN [facility] [place] [facility] February 13, 2025 01:00 PM AMBULATORY - MEDICINE [facility] Mar 14, 2025 08:30 AM AMBULATORY - MEDICINE [facility] [place] [facility] Mar 14, 2025 09:00 AM AMBULATORY - MEDICINE [facility] [place] [facility] May 18, 2025 09:00 AM AMBULATORY - MEDICINE [facility] Jun 15, 2025 08:30 AM [facility] Active, Pending, and Scheduled Orders This section includes a listing of several types of active, pending, and scheduled orders, including clinic medications orders, diagnostic test orders, procedure orders and consult orders; where the start date of the order is 45 days before the date of the Encounter or 45 days after the date of theEncounter. The data comes from all [place] treatment facilities. Test Date/Time Test Type Test Details Facility Name Nov 16, 2024 12:00 AM Laboratory - Chemi stry Order HEMOGLOBIN A1C PANEL BLOOD (LAV-BLOOD) [facility] 12, 2025 12:00 AM Laboratory - Chemi stry Order FERRITIN BLOOD (SST-SERUM) [facility] 12, 2025 12:00 AM Laboratory - Chemi stry Order TSH BLOOD (SST-SERUM) [facility] 12, 2025 12:00 AM Laboratory - Chemi stry Order PSA BLOOD (SST-SERUM) [facility] 12, 2025 12:00 AM Laboratory - Chemi stry Order AMYLASE BLOOD (SST-SERUM) [facility] 12, 2025 12:00 AM Laboratory - Chemi stry Order LIPASE BLOOD (SST-SERUM) [facility] Nov 16, 2024 12:00 AM Laboratory - Chemi stry Order URINALYSIS URINE [facility] 12, 2025 12:00 AM Laboratory - Chemi stry Order BASIC METABOLIC PANEL (fasting) BLOOD (SST-SERUM) [facility] 12, 2025 12:00 AM Laboratory - Chemi stry Order MICROALBUMIN CREATININE RATIO PANEL URINE (RANDOM) [facility] 12, 2025 12:00 AM Laboratory - Chemi stry Order LIVER FUNCTION BLOOD (SST-SERUM) [facility] Nov 16, 2024 12:00 AM Laboratory - Chemi stry Order LIPID PANEL FASTING BLOOD (SST-SERUM) [facility] 12, 2025 12:00 AM Laboratory - Chemi stry Order CALCIUM BLOOD (SST-SERUM) [facility] Nov 16, 2024 12:00 AM Laboratory - Chemi stry Order URIC ACID BLOOD (SST-SERUM) [facility] 12, 2025 12:00 AM Laboratory - Chemi stry Order VITAMIN D (25-OH) BLOOD (SST-SERUM) [facility] Nov 16, 2024 12:00 AM Laboratory - Chemi stry Order CBC AND DIFF (AUTO) BLOOD (LAV-BLOOD) [facility] Lab Results: +/- 30 days of the encounter This section includes the Chemistry and Hematology Lab Results on record with [place] for the patient. Radiology Reports and Pathology Reports are provided separately, in subsequent sections. Lab Results This section contains the Chemistry/Hematology Results that were resulted 30 days before or 30 daysafter the date of the Encounter. Date/Time Source Result Type Result - Unit Interpretation Reference Range Specimen Type Comment Dec 19, 2024 10:15 AM [facility] GLUCOSE, Fingerstick BLOOD Specimen T ype: BLOOD Comment: For GLU FinTest performed by: Christy Robbins For GLU Fin Meter #: [id number] Ordering Provider: SWAPNIL NEWMAN Report Released Date/Time: Dec 19, 2024 04:05 PM Reporting Lab: [address] [address] Performing Lab: [address] [address] GLUCOSE, Fingerstick 133 mg/dL H 65-100 Dec 15, 2024 09:34 AM [facility] HEMOGLOBIN A1C PANEL BLOOD Specimen T ype: [...] Dec 14, 2024 02:29 PM Reporting Lab: [address] [address] Performing Lab: [address] [address] HEMOGLOBIN A1C 5.8 H 4.0-5.6 Dec 15, 2024 09:34 AM [facility] CREATININE (eGFR 2020) SERUM Specimen Type: SERUM No comment entered. Ordering Provider: SWAPNIL NEWMAN Report Released Date/Time: Dec 14, 2024 02:29 PM Reporting Lab: [address] [address] Performing Lab: [address] [address] CREATININE, Serum 1.27 mg/dL 0.50-1.40 eGFR(CKD-EPI 2020) 63 mL/min >60 Social History: Smoking Status (Most current) and Tobacco Use (All prior to encounter date) This section includes the most current, and the historical, smoking and tobacco- related health factors from the [place] facility where the Encounter took place. Current Smoking Status This section includes the most current smoking, or tobacco-related health factor, from the [place] facility where the Encounter took place. Date/Time Current Smoking Status Comment Michela arnel Dec 16, 2023 10:00 AM VA-TOBACCO USER EVERY DAY [facility] Tobacco Use History This section includes a history of the smoking, or tobacco-related health factors, that were collected on or before the date of the Encounter. The data comes from the [place] facility where the Encounter took place. Date/Time Smoking Status/Tobacco Use Comment F acility Dec 16, 2023 10:00 AM VA-TOBACCO USE > 1 5 LESS THAN 30 YEARS [facility] Dec 16, 2023 10:00 AM VA-TOBACCO USE 30 YEARS OR MORE [facility] Dec 16, 2023 10:00 AM VA-TOBACCO USE ADVICE [facility] Dec 16, 2023 10:00 AM VA-TOBACCO USE SANDER MACHINE NO [facility] Dec 16, 2023 10:00 AM VA-TOBACCO USE SANDER MACHINE YES [facility] Dec 16, 2023 10:00 AM VA-TOBACCO USE MED NO [facility] Dec 16, 2023 10:00 AM VA-TOBACCO USE MED YES [facility] Dec 16, 2023 10:00 AM VA-TOBACCO USE WI 30 MIN OF WAKEUP [facility] Dec 16, 2023 10:00 AM VA-TOBACCO USER EVERY DAY [facility] Jan 13, 2023 02:00 PM VA-TOBACCO USE 1 T O < 5 YEARS [facility] Jan 13, 2023 02:00 PM VA-TOBACCO USE ADVICE [facility] Jan 13, 2023 02:00 PM VA-TOBACCO USE SANDER MACHINE NO [facility] Jan 13, 2023 02:00 PM VA-TOBACCO USE MED NO [facility] Jan 13, 2023 02:00 PM VA-TOBACCO USE WI 30 MIN OF WAKEUP [facility] Jan 13, 2023 02:00 PM VA-TOBACCO USER EVERY DAY [facility] Jul 03, 2022 09:00 AM VA-TOBACCO FORMER USER [facility] Jul 03, 2022 09:00 AM VA-TOBACCO QUIT 5 TO < 15 YRS [facility] Jul 04, 2021 09:00 AM VA-TOBACCO USE > 1 5 LESS THAN 30 YEARS [facility] Jul 04, 2021 09:00 AM VA-TOBACCO USE ADVICE [facility] Jul 04, 2021 09:00 AM VA-TOBACCO USE SANDER MACHINE NO [facility] Jul 04, 2021 09:00 AM VA-TOBACCO USE MED NO [facility] Jul 04, 2021 09:00 AM VA-TOBACCO USE WI 30 MIN OF WAKEUP [facility] Jul 04, 2021 09:00 AM VA-TOBACCO USER SOME DAYS [facility] Apr 30, 2020 10:39 AM VA-TOBACCO FORMER USER [facility] Apr 30, 2020 10:39 AM VA-TOBACCO QUIT 5 TO < 15 YRS [facility] Dec 21, 2018 03:15 PM VA-TOBACCO FORMER USER [facility] Dec 21, 2018 03:15 PM VA-TOBACCO QUIT 1 TO < 5 YRS [facility] Nov 24, 2017 09:54 AM CURRENT SMOKER cigarets [facility] Nov 24, 2017 09:54 AM V1-PT READY TO SHARAN T TOBACCO USE [facility] Mar 25, 2017 01:57 PM CURRENT SMOKER down to 10 cigarettes daily [facility] Mar 25, 2017 01:57 PM V1-PT DECLINES TOB ACCO CESSATION [facility] Mar 25, 2017 01:57 PM V1-PT READY TO SHARAN T TOBACCO USE [facility] March 04, 2017 02:38 PM CURRENT SMOKER advise stopm [facility] Jul 22, 2016 09:29 AM V1-PT NOT INTEREST ED IN QUIT TOBACCO USE [facility] Nov 21, 2015 09:21 AM CURRENT SMOKER half a pack a day [facility] Nov 21, 2015 09:21 AM V1-PT NOT INTEREST ED IN QUIT TOBACCO USE [facility] Nov 23, 2014 08:51 AM CURRENT SMOKER [facility] Nov 23, 2014 08:51 AM V1-PT READY TO SHARAN T TOBACCO USE [facility] Dec 16, 2013 02:19 PM CURRENT SMOKER 3/4 pack a day [facility] Dec 16, 2013 02:19 PM V1-PT THINKING ABO UT QUIT TOBACCO USE [facility] Advance Directives: All historical and current Section Date Range: From patient's date of to the date document was created. This section includes ALL of a patient's completed or amended [place] Advance and Rescinded Directives. The entries below indicate that a directive exists for the patient, but an actual copy is not included with this document. The data comes from all [place] facilities. Date Advance Directives Provider Source Dec 12, 2014 ADVANCE DIRECTIVE KATRIN GREEN Encounter Notes: All associated encounter notes This section contains the clinical notes associated to the Encounter. Date/Time Encounter Note(s) Provider Source Dec 19, 2024 10:54 AM ADDENDUM: LOCAL TITLE: Addendum STANDARD TITLE: ADDENDUM DATE OF NOTE: DEC 19, 2024@10:54:21 ENTRY DATE: DEC 19, 2024@10:54:22 AUTHOR: SWAPNIL NEWMAN COSIGNER: URGENCY: STATUS: COMPLETED Clinic's Next Scheduled Follow-up: TBD; will ask armature and rotor winder to please f/u with end of the week and schedule FTF visit upon discharge from hospital. Thank you! 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 Thank you! HTN: at goal; DAMARI-I changed to CCB d/t rise in SCr; f/u nephrology ASCVD: not on statin; on fenofibrate; defer to PCP/review at f/u Microalb: 12.4 mg/G (09/2025) History of Preventive Care: Most recent visit to backup sawyer: 01/2024 Most recent visit to optometry: 07/2023; T2 Diabetes without retinopathy or macular edema OU Time Spent: 30 minutes PBM PharmD Pharmacotherapy Rem V12: PHARMACIST INTERVENTIONS: TYPE 2 DIABETES MELLITUS Medication Intervention(s) Discontinue and/or change to different medication Medication reconciliation (changes to active VA and non-VA medication lists to reconcile differences) Changes to medication lists made Discontinue or remove medication /es/ Swapnil Newman PharmD Clinical Pharmacy Practitioner Signed: 12/19/2024 10:54 12/19/2024 ADDENDUM STATUS: COMPLETED Suicide Screen: C-SSRS Screening [place]-Suicide Severity Rating Scale (C-SSRS Screener) 1. Over [...] to other questions. Has MH f/u at [facility] (non-VA). 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 Thank you! HTN: at goal; DAMARI-I changed to CCB d/t rise in SCr; f/u nephrology ASCVD: not on statin; on fenofibrate; defer to PCP/review at f/u Microalb: 12.4 mg/G (09/2025) History of Preventive Care: Most recent visit to backup sawyer: 01/2024 Most recent visit to optometry: 07/2023; T2 Diabetes without retinopathy or macular edema OU Time Spent: 30 minutes PBM PharmUbaldo Pharmacotherapy Rem V12: PHARMACIST INTERVENTIONS: TYPE 2 DIABETES MELLITUS Medication Intervention(s) Discontinue and/or change to different medication Medication reconciliation (changes to active VA and non-VA medication lists to reconcile differences) Changes to medication lists made Discontinue or remove medication /karlene/ Swapnil Newman PharmD Clinical Pharmacy Practitioner Signed: 12/19/2024 10:54 12/19/2024 ADDENDUM STATUS: COMPLETED Clinic's Next Scheduled Follow-up: TBD; will ask armature and rotor winder to please f/u with [place] end of the week and schedule FTF visit upon discharge from hospital. Thank you! /jaya Newman PharmD Clinical Pharmacy Practitioner Signed: 12/19/2024 10:54 Receipt Acknowledged By: 12/19/2024 10:57 /karlene/ KYLE VERDUZCO Clinical Coating Machine Operator Helper 12/19/2024 ADDENDUM STATUS: COMPLETED Suicide Screen: C-SSRS Screening [place]-Suicide Severity Rating Scale (C-SSRS Screener) 1. Over [...] to other questions. Has MH f/u at [facility] (non-VA). /karlene/ Swapnil Newman PharmD Clinical Pharmacy Practitioner Signed: 12/19/2024 10:56 12/22/2024 ADDENDUM STATUS: COMPLETED patient scheduled for 01/24 at 2:00 in clinic /karlene/ KYLE VERDUZCO Clinical Coating Machine Operator Helper Signed: 12/22/2024 14:10 01/03/2025 ADDENDUM STATUS: COMPLETED patient is rescheduled for 02/13 at 1:00 in clinic /karlene/ KYLE VERDUZCO Clinical Coating Machine Operator Helper Signed: 01/03/2025 15:15 SWAPNIL NEWMAN
--- OUTSIDE RECORDS SUMMARY | 2025-02-01 16:05 | XMS_ITS | Encounter Summary ---
Author Name [facility] [place] Organization [facility] [place] Address [address] [place] [address] Care Team Providers Care Card Brusher Name Role Phone AUSTIN BALDWIN Primary Care Provider [facility] Insurance Providers: All historical and [...] Relationship to Policy Lomas PATRICIO MULLIGAN-WN R [place] [facility] [place] PATRICIO ERICKSON Nov 14, 2024 PATRICIO MULLIGAN [id number] Dougie RIVERA PATIENT [facility] MEDICAID MEDICAID MEDIC AID Oct 05, 2016 MEDICAI D [id number] NICOLE,A NALLELY PATIENT MEDICAID MEDICAID [place] [employer] [facility] Oct 05, 2014 MEDICAI D [id number] Dougie RIVERA NALLELY PATIENT MEDICARE (WNR) MEDICARE (M) PART A May 05, 2018 PART A [id number] [facility] Dougie RIVERA NALLELY PATIENT MEDICARE (WNR) MEDICARE (M) PART B May 05, 2018 PART B [id number] [facility] Dougie RIVERA PATIENT Selected Encounter This section includes the information on record at [place] for the Encounter. Date/Time Encounter Type Encounter Description Reason Provider Source Mar 08, 2024 09:30 AM MTMS BY ANJALI SNEED 15 MIN CLINICAL PHARMACY ICD-10-CM R73.9 Hyperglycemia, unspecified CHANDUSWAPNIL BROWNING Nancy Encounter Template Text not used by [place] Assessments - Encounter Diagnoses This section includes the primary and secondary diagnoses documented for the Encounter. Date/Time Primary/Secondary Diagnosis Diagnosis Name Provider Source Mar 08, 2024 10:04 AM PRIMARY Hyperglycemia, unspecified SWAPNIL NEWMAN SHARONA Plan of Treatment: Future Appointments (+ 6 months) and Future Tests (+/- 45 days) The Plan of Treatment section includes future care activities for the patient from all [facility]. This section includes future appointments and future [...] MEDICINE [facility] [place] [facility] Mar 15, 2024 09:00 AM [facility] Mar 16, 2024 09:00 AM [facility] - MEDICINE [facility] [place] [facility] Mar 16, 2024 11:00 AM [facility] Mar 22, 2024 09:00 AM [facility] Mar 24, 2024 09:00 AM [facility]ORY [facility] MEDICINE [facility] [place] [facility] Mar 31, 2024 10:00 AM AMBULATORY - NONE [facility] [place] [facility] Apr 05, 2024 10:00 AM [facility] Apr 05, 2024 01:30 PM [facility] Apr 19, 2024 10:30 AM [facility]ICINE [facility] [place] [facility] Apr 26, 2024 10:00 AM [facility] [place] [facility] [place] Apr 27, 2024 10:30 AM [facility]UL[facility]ORY - MEDICINE [facility] [place] [facility] May 03, 2024 09:00 AM [facility] [place] [facility] [place] May 10, 2024 01:00 PM AMBULATORY - MEDICINE [facility] [place] [facility] May 20, 2024 09:00 AM [facility] [place] [facility] [place] May 31, 2024 03:30 PM AMBULATORY - MEDICINE [facility] [place] [facility] Jun 14, 2024 03:30 PM AMBULATORY - MEDICINE [facility] [place] [facility] Jun 23, 2024 09:00 AM AMBULATORY - MEDICINE [facility] [place] [facility] Jul 05, 2024 03:30 PM AMBULATORY - MEDICINE [facility] [place] [facility] Jul 15, 2024 11:30 AM AMBULATORY - MEDICINE [facility] Active, Pending, and Scheduled Orders This section includes a listing of several types of active, pending, and scheduled orders, including clinic medications orders, diagnostic test orders, procedure orders and consult orders; where the start date of the order is 45 days before the date of the Encounter or 45 days after the date of theEncounter. The data comes from all [place] treatment facilities. Test Date/Time Test Type Test Details Facility Name February 22, 2024 12:00 AM Laboratory - Chemi shaila Order HEMOGLOBIN A1C PANEL BLOOD (LAV-BLOOD) [facility] Lab Results: +/- 30 days of the encounter This section includes the Chemistry and Hematology Lab Results on record with [place] for the patient. Radiology Reports and Pathology Reports are provided separately, in subsequent sections. Lab Results This section contains the Chemistry/Hematology Results that were resulted 30 days before or 30 daysafter the date of the Encounter. Date/Time Source Result Type Result - Unit Interpretation Reference Range Specimen Type Comment Apr 05, 2024 08:13 AM [facility] VITAMIN D (25-OH) SERUM Specimen Type: SERUM No comment entered. Ordering Provider: ALFREDO SANDERS Report Released Date/Time: Jan 19, 2024 04:58 PM Reporting Lab: [facility] [address] [address] Performing Lab: [address] [address] VITAMIN D (25-OH) 43 ng/mL 20-50 Apr 05, 2024 08:13 AM [facility] MICROALBUMIN CREATININE RATIO PANEL URINE Spe cimen Type: URINE No comment entered. Ordering Provider: ALFREDO SANDERS Report Released Date/Time: Jan 19, 2024 04:58 PM Reporting Lab: [facility] [address] [address] Performing Lab: [facility] [address] [address] MICROALBUMIN/CREATININE RATIO 70.7 mg/g H 0-29.9 MICROALBUMIN,QUANTITATIVE 11.0 mg/dL RR UNAVAIL CREATININE URINE 155.54 mg/dL Apr 05, 2024 08:13 AM [facility] FERRITIN SERUM Specimen Type: SERUM No comment entered. Ordering Provider: ALFREDO SANDERS Report Released Date/Time: Jan 19, 2024 04:58 PM Reporting Lab: [address] [address] Performing Lab: [address] [address] FERRITIN 33 ng/mL 20-300 Apr 05, 2024 08:13 AM [facility] IRON & TIBC PANEL SERUM Specimen Type: SERUM No comment entered. Ordering Provider: ALFREDO SANDERS Report Released Date/Time: Jan 19, 2024 04:58 PM Reporting Lab: [address] [address] Performing Lab: [address] [address] TIBC 494 ug/dL H 204-475 IRON 110 ug/dL 40-160 Transferrin Saturation 22.3 20.0-50.0 Apr 05, 2024 08:13 AM [facility] BASIC METABOLIC PANEL (non-fasting) SERUM Spe cimen Type: SERUM No comment entered. Ordering Provider: ALFREDO SANDERS Report Released Date/Time: Jan 19, 2024 04:58 PM Reporting Lab: [address] [address] Performing Lab: [address] [address] UREA NITROGEN 14 mg/dL 7-25 GLUCOSE 128 mg/dL H 65-100 SODIUM 138 mmol/L 135-145 POTASSIUM 4.5 mmol/L 3.5-5.0 CHLORIDE 103 mmol/L 100-110 CO2 24 meq/L 20-30 CREATININE, Serum 1.35 mg/dL 0.50-1.40 eGFR(CKD-EPI 2020) 59 mL/min L >60 Apr 05, 2024 08:13 AM [facility] CBC BLOOD Specimen Type: BLOOD No comment entered. Ordering Provider: ALFREDO SANDERS Report Released Date/Time: Jan 19, 2024 04:58 PM Reporting Lab: [facility] [address] [address] Performing Lab: [facility] [address] [address] WBC 8.57 10*3/uL 4.50-11.00 RBC 5.34 10*6/uL 4.23-5.66 HGB 16.0 g/dL 12.8-17 HCT 46.1 39.2-50.4 MCV 86.3 fL 82-99 MCHC 34.7 g/dL 30.8-35.1 PLT 278 10*3/uL 140-360 RDW-CV 12.6 12.0-16.0 MCH 30.0 pg 26.2-32.6 February 23, 2024 09:10 AM [facility] FERRITIN SERUM Sp ecimen Type: SERUM No comment entered. Ordering Provider: AUSTIN BALDWIN Report Released Date/Time: Dec 22, 2023 10:15 AM Reporting Lab: [facility] [address] [address] Performing Lab: [facility] [address] [address] FERRITIN 46 ng/mL 20-300 February 23, 2024 09:10 AM [facility] MICROALBUMIN CREATININE RATIO PANEL URINE Specimen Type: URINE No comment entered. Ordering Provider: AUSTIN BALDWIN Report Released Date/Time: Dec 22, 2023 10:15 AM Reporting Lab: [facility] [address] [address] Performing Lab: [facility] [address] MICROALBUMIN/CREATININE RATIO 22.3 mg/g 0-29.9 MICROALBUMIN,QUANTITATIVE 2.5 mg/dL RR U NAVAIL CREATININE URINE 112.32 mg/dL February 23, 2024 09:10 AM [facility] URIC ACID SERUM Sp ecimen Type: SERUM No comment entered. Ordering Provider: AUSTIN BALDWIN Report Released Date/Time: Dec 22, 2023 10:15 AM Reporting Lab: [facility] [place] [address] [address] Performing Lab: [facility] [address] URIC ACID 4.8 mg/dL 3.5-7.2 February 23, 2024 09:10 AM [facility] HEMOGLOBIN A1C PANEL BLOOD Specimen T ype: [...] Dec 22, 2023 10:15 AM Reporting Lab: [facility] [place] [address] [address] Performing Lab: [facility] [address] [address] HEMOGLOBIN A1C 6.4 H 4.0-5.6 February 23, 2024 09:10 AM [facility] PSA SERUM Sp ecimen Type: SERUM No comment entered. Ordering Provider: AUSTIN BALDWIN Report Released Date/Time: Dec 22, 2023 10:15 AM Reporting Lab: [facility] [place] [address] [address] Performing Lab: [facility] [address] PSA 0.63 ng/mL 0.00-4.00 February 23, 2024 09:10 AM [facility] TSH SERUM Sp ecimen Type: SERUM No comment entered. Ordering Provider: AUSTIN BALDWIN Report Released Date/Time: Dec 22, 2023 10:15 AM Reporting Lab: [address] [address] Performing Lab: [address] [address] TSH 1.89 u[IU]/mL 0.35-5.00 February 23, 2024 09:10 AM [facility] BASIC METABOLIC PANEL (fasting) SERUM Specimen Type: SERUM No comment entered. Ordering Provider: AUSTIN BALDWIN Report Released Date/Time: Dec 22, 2023 10:15 AM Reporting Lab: [address] [address] Performing Lab: [address] [address] UREA NITROGEN 11 mg/dL 7-25 GLUCOSE 122 mg/dL H 65-100 SODIUM 140 mmol/L 135-145 POTASSIUM 4.4 mmol/L 3.5-5.0 CHLORIDE 107 mmol/L 100-110 CO2 24 meq/L 20-30 CREATININE, Serum 1.14 mg/dL 0.50-1.40 eGFR(CKD-EPI 2020) 72 mL/min >60 February 23, 2024 09:10 AM [facility] CBC AND DIFF (AUTO) BLOOD Specimen Ty pe: BLOOD No comment entered. Ordering Provider: AUSTIN BALDWIN Report Released Date/Time: Dec 22, 2023 10:15 AM Reporting Lab: [address] [address] Performing Lab: [address] [address] WBC 9.84 10*3/uL 4.50-11.00 RBC 4.93 10*6/uL 4.23-5.66 HGB 15.0 g/dL 12.8-17 HCT 43.5 39.2-50.4 MCV 88.2 fL 82-99 MCHC 34.5 g/dL 30.8-35.1 PLT 254 10*3/uL 140-360 RDW-CV 13.0 12.0-16.0 Crenshaw, Abs 0.84 10*3/uL 0.30-1.10 MCH 30.4 pg 26.2-32.6 Neut % 69.6 43.7-75.8 Lymph % 18.7 14.0-42.3 Crenshaw % 8.5 5.1-13.7 Eos % 1.7 0.4-6.8 Baso % 0.9 0.1-2.0 Neut, Abs 6.84 10*3/uL 2.20-7.60 Lymph, Abs 1.84 10*3/uL 1.00-3.20 Eos, Abs 0.17 10*3/uL 0.03-0.44 Baso, Abs 0.09 10*3/uL 0.01-0.13 Immature Gran % 0.6 0.0-0.7 Immature Gran, Abs 0.06 10*3/uL 0.00-0.0 6 February 23, 2024 09:10 AM [facility] LIVER FUNCTION SERUM Specimen Type: SERUM No comment entered. Ordering Provider: AUSTIN BALDWIN Report Released Date/Time: Dec 22, 2023 10:15 AM Reporting Lab: [address] [address] Performing Lab: [address] [address] PROTEIN,TOTAL 6.3 g/dL 6.0-8.3 ALBUMIN 3.7 g/dL 3.5-5.0 ALKALINE PHOSPHATASE 29 U/L L 40-150 AST 45 U/L H 5-34 ALT 54 U/L BILIRUBIN, TOTAL 0.3 mg/dL 0.2-1.2 February 23, 2024 09:10 AM [facility] URINALYSIS URINE S pecimen Type: URINE Comment: If Glucose = >500 and Ketones are positive, please alert the Physician. Ordering Provider: ASUTIN BALDWIN Report Released Date/Time: Dec 22, 2023 10:15 AM Reporting Lab: [address] [address] Performing Lab: [address] [address] UA COLOR Light-Yellow Yellow UA APPEARANCE Clear Clear UA GLUCOSE NEGATIVE mg/dL Negative UA KETONES NEGATIVE mg/dL Negative UA BLOOD NEGATIVE mg/dL Negative UA PROTEIN NEGATIVE mg/dL Negative UA NITRITE NEGATIVE mg/dL Negative UA BILIRUBIN NEGATIVE mg/dL Negative UA SPECIFIC GRAVITY 1.019 1.016-1.022 UA pH 6.5 5.0-9.0 UA UROBILINOGEN <2.0 mg/dL <2.0 UA LEUKOCYTE NEGATIVE Negative February 23, 2024 09:10 AM [facility] LIPID PANEL FASTING SERUM Specimen Ty pe: SERUM No comment entered. 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 The data comes from the [facility] facility where the Encounter took place. Date/Time Smoking Status/Tobacco Use Comment F acility Dec 16, 2023 10:00 AM VA-TOBACCO USE > 1 5 LESS THAN 30 YEARS [facility] Dec 16, 2023 10:00 AM VA-TOBACCO USE 30 YEARS OR MORE [facility] Dec 16, 2023 10:00 AM VA-TOBACCO USE ADVICE [facility] Dec 16, 2023 10:00 AM VA-TOBACCO USE FULL STACK DEVELOPER NO [facility] Dec 16, 2023 10:00 AM VA-TOBACCO USE FULL STACK DEVELOPER YES [facility] Dec 16, 2023 10:00 AM VA-TOBACCO USE MED NO [facility] Dec 16, 2023 10:00 AM VA-TOBACCO USE MED YES [facility] Dec 16, 2023 10:00 AM VA-TOBACCO USE WI 30 MIN OF WAKEUP [facility] Dec 16, 2023 10:00 AM VA-TOBACCO USER EVERY DAY [facility] Jan 13, 2023 02:00 PM VA-TOBACCO USE 1 T O < 5 YEARS [facility] Jan 13, 2023 02:00 PM VA-TOBACCO USE ADVICE [facility] Jan 13, 2023 02:00 PM VA-TOBACCO USE FULL STACK DEVELOPER NO [facility] Jan 13, 2023 02:00 PM VA-TOBACCO USE MED NO [facility] Jan 13, 2023 02:00 PM VA-TOBACCO USE WI 30 MIN OF WAKEUP [facility] Jan 13, 2023 02:00 PM VA-TOBACCO USER EVERY DAY [facility] Jul 03, 2022 09:00 AM VA-TOBACCO FORMER USER [facility] Jul 03, 2022 09:00 AM VA-TOBACCO QUIT 5 TO < 15 YRS [facility] Jul 04, 2021 09:00 AM VA-TOBACCO USE > 1 5 LESS THAN 30 YEARS [facility] Jul 04, 2021 09:00 AM VA-TOBACCO USE ADVICE [facility] Jul 04, 2021 09:00 AM VA-TOBACCO USE FULL STACK DEVELOPER NO [facility] Jul 04, 2021 09:00 AM VA-TOBACCO USE MED NO [facility] Jul 04, 2021 09:00 AM VA-TOBACCO USE WI 30 MIN OF [facility] Jul 04, 2021 09:00 AM VA-TOBACCO USER SOME DAYS [facility] Apr 30, 2020 10:39 AM VA-TOBACCO FORMER USER [facility] Apr 30, 2020 10:39 AM VA-TOBACCO QUIT 5 TO < 15 YRS [facility] Dec 21, 2018 03:15 PM VA-TOBACCO FORMER USER [facility] Dec 21, 2018 03:15 PM VA-TOBACCO QUIT 1 TO < 5 YRS [facility] Nov 24, 2017 09:54 AM CURRENT SMOKER cigarets [facility] Nov 24, 2017 09:54 AM V1-PT READY TO SHARAN T TOBACCO USE [facility] Mar 25, 2017 01:57 PM CURRENT SMOKER down to 10 cigarettes daily [facility] Mar 25, 2017 01:57 PM V1-PT DECLINES TOB ACCO CESSATION MEDS [facility] Mar 25, 2017 01:57 PM V1-PT READY TO SHARAN T TOBACCO USE [facility] March 04, 2017 02:38 PM CURRENT SMOKER advise stopm [facility] Jul 22, 2016 09:29 AM V1-PT NOT INTEREST ED IN QUIT TOBACCO USE [facility] Nov 21, 2015 09:21 AM CURRENT SMOKER half a pack a day [facility] Nov 21, 2015 09:21 AM V1-PT NOT INTEREST ED IN QUIT TOBACCO USE [facility] Nov 23, 2014 08:51 AM CURRENT SMOKER [facility] Nov 23, 2014 08:51 AM V1-PT READY TO SHARAN T TOBACCO USE [facility] Dec 16, 2013 02:19 PM CURRENT SMOKER 3/4 pack a day [facility] Dec 16, 2013 02:19 PM V1-PT THINKING ABO [facility] QUIT TOBACCO USE [facility] Advance Directives: All historical and current Section [...] Encounter Note(s) Provider Source Mar 08, 2024 09:24 AM PHARMACY OUTPATIEN T NOTE: LOCAL TITLE: PHARMACY CLINIC NOTE STANDARD TITLE: PHARMACY OUTPATIENT NOTE DATE OF NOTE: MAR 08, 2024@09:24 ENTRY DATE: MAR 08, 2024@09:24:30 AUTHOR: SWAPNIL NEWMAN COSIGNER: URGENCY: STATUS: COMPLETED Known Allergies: CODEINE, OXYCODONE ANGELA FELIPEDAWSON presented for diabetes management treatment. Subjective: Holmes referred to pharmacy clinic by PCP. Per [...] consult, I also did nephro consult . Holmes presents to clinic today for follow-up. At time of last visit, importance of fish oil was reviewed and LSMs encouraged. Pt presents to clinic today after repeat labs; TGs now <500mg/dL. Pt notes recent hospital visit for panic attack; followed by [facility] mental health. Notes LSMs which have lead to 15lb weight loss; cut out sugar, more water. Target Goals: A1C: 7%; FB-110 mg/dl Objective: Diabetes Medication Regimen: None; metformin d/c'd due to renal function. Adherence: N/A HEMOGLOBIN A1C TREND Collection DT [...] 1.14 02/23/24 09:08 1.13 01/04/24 08:57 1.38 Patient self-monitoring of blood glucose: Health-[facility]: At home : Patient self-monitors blood glucose 1-2x/week and reports the following (mg/dl): 01/04/24 Last SMBG ~1 week ago; ~106mg/dL. 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 Reports BG readings ~104mg/dL; none >150mg/dL. 03/08/24 Difficulty with SMBG; not SMBG recently. Patient eats on avg. 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 A1c at goal. Pt note SMBG routinely but given at goal, reasonable to repeat A1c routinely with assistance from others to SMBG d/t missing fingertips when possible. TGs now improved; MOA, potential ADRs, dosing and administration of semaglutide reviewed. Initial dose adminsitered in clinic. SGLT-2 inhibitor avoided given fluctuation in renal function resulting in several hospitalizations; reassess in the future. If needed, consider Arti 3 in future but given A1c at goal and starting GLP-1 agonist, will not consider at this time. 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 He will ask for assistance from others as possible. Diabetes (Goal A1c<7%, FBG 90-110mg/dL, 2hPP<180mg/dL): - Semaglutide 0.25mg once weekly x 4 weeks then 0.5mg once weekly - SMBG 2x/week - Monitor for s/sx hypoglycemia and contact clinic if BG consistently < 70mg/dL - Healthy dietary lifestyle modifications encouraged - Repeat A1c: May 2024 Clinic's Next Scheduled Follow-up: ~4-6 weeks HTN: at goal; DAMARI-I changed to CCB d/t rise in SCr; f/u nephrology ASCVD: not on statin; on fenofibrate; defer to PCP/review at f/u Microalb: 218.7 H mg/G (01/2024) History of Preventive Care: Most recent visit to awnings mechanic: 01/2024 Most recent visit to optometry: 07/2023; T2 Diabetes without retinopathy or macular edema OU Time Spent: 30 minutes PBM PharmD Pharmacotherapy Rem V12: PHARMACIST INTERVENTIONS: TYPE 2 DIABETES MELLITUS Medication Intervention(s) Initiate new medication OBESITY/WEIGHT MANAGEMENT Medication Intervention(s) Initiate new medication Medication reconciliation (changes to active VA and non-VA medication lists to reconcile differences) Changes to medication lists made Add or renew medication /es/ Swapnil Newman, PharmD Clinical Pharmacy Practitioner Signed: 03/08/2024 10:04 SWAPNIL NEWMAN
--- OUTSIDE RECORDS SUMMARY | 2025-02-01 16:06 | XMS_ITS | Encounter Summary ---
Author Organization [employer] Address [address] [place] [address] [address] [place] [address] Care Team Providers Care Liner Reroll Tender Name Role Phone Unavailable Primary Care Provider Unavailabl e Encounter Details Date Type Department Care Team (Late st Contact Info) Description 05/04/2023 Abstract [facility] [address] [place] [address] Rob Connolly DDS [address] [place], [place] [id number] Social History Tobacco Use Types Packs/Day Years Used Date Smoking Tobacco: Former Cigarettes 0.3 0.5 Passive Smoke Exposure: Past Smokeless Tobacco: Former Alcohol Use Standard Drinks/Week Comments Never 0 (1 standard drink = 0.6 oz pur e alcohol) Sex and Gender Information Value Date Recorded Sex Assigned at Male 08/04/2022 10:16 AM EDT Legal Sex Male 10:16 AM EDT Gender Identity Male 08/04/2022 10:16 AM EDT Sexual Orientation Straight 08/04/2022 10 :16 AM EDT documented as of this encounter Plan of Treatment Upcoming Encounters Date Type Department Care Team (Late st Contact Info) Description 03/08/2025 9:00 AM EDT Office Visit [facility] [address] [place], [place] [phone] Gabby Jarquin [address] [place], [place] [phone] documented as of this encounter Visit Diagnoses Not on filedocumented in this encounter
--- OUTSIDE RECORDS SUMMARY | 2025-02-01 16:06 | XMS_ITS | Encounter Summary ---
Author Name [facility] [place] Address [address] [place] [address] Care Team Providers Care Chancellor Name Role Phone AUSTIN BALDWIN Primary Care Provider [facility] Insurance Providers: All historical and [...] Relationship to Policy Lomas PATRICIO MULLIGAN-ESME R [place] [facility] PATRICIO ERICKSON Nov 14, 2024 PATRICIO MULLIGAN [id number] Dougie RIVERA PATIENT [facility] MEDICAID MEDICAID MEDIC AID Oct 05, 2016 MEDICAI D [id number] NICOLE,A NALLELY PATIENT MEDICAID MEDICAID [facility] Oct 05, 2014 MEDICAI D [id number] Dougie RIVERA NALLELY PATIENT MEDICARE (WNR) MEDICARE (M) PART A May 05, 2018 PART A [id number] [facility] Dougie RIVERA NALLELY PATIENT MEDICARE (WNR) MEDICARE (M) PART B May 05, 2018 PART B [id number] Dougie RIVERA PATIENT Selected Encounter This section includes the information on record at NH for the Encounter. Date/Time Encounter Type Encounter Description Reason Provider Source Oct 06, 2024 10:00 AM PSYTX W PT 30 MINUTES PRIMARY CARE/MEDICINE ICD-10-CM Z72.0 Tobacco use SCARLET LUGO Nancy Encounter Template Text not used by NH Assessments - Encounter Diagnoses This section includes the primary and secondary diagnoses documented for the Encounter. Date/Time Primary/Secondary Diagnosis Diagnosis Name Provider Source Oct 06, 2024 10:07 AM PRIMARY Tobacco use LUCINA LUGO [place] Plan of Treatment: Future Appointments (+ 6 months) and Future Tests (+/- 45 days) The Plan of Treatment section includes future care activities for the patient [facility] This section includes future appointments and future orders which are active, pending or scheduled. Future Appointments This section includes appointments that were scheduled to occur 6 months from the date of the Encounter, up to a maximum of 20 appointments. The data comes from all [place] treatment facilities. Appointment Date/Time Appointment Type Appointme nt Facility Name Oct 18, 2024 08:30 AM AMBULATORY - MEDICINE [facility] [place] [facility] Nov 07, 2024 01:15 PM AMBULATORY - MEDICINE [facility] [place] [facility] Nov 08, 2024 10:00 AM AMBULATORY - MEDICINE [place] [facility] [place] [facility] Nov 15, 2024 08:30 AM AMBULATORY - MEDICINE [facility] Dec 05, 2024 02:15 PM AMBULATORY - MEDICINE [facility] [place] [facility] Dec 08, 2024 09:00 AM AMBULATORY - MEDICINE [facility] [place] [facility] Dec 19, 2024 09:30 AM AMBULATORY - MEDICINE [facility] Dec 19, 2024 10:00 AM AMBULATORY - MEDICINE [facility] Dec 28, 2024 03:00 PM AMBULATORY - MEDICINE [facility] [place] [facility] Jan 09, 2025 01:30 PM AMBULATORY - MEDICINE [facility] [place] [facility] Jan 12, 2025 09:00 AM [facility] Jan 26, 2025 09:30 AM AMBULATORY - MEDICINE [facility] [place] [facility] February 08, 2025 01:00 PM AMBULATORY [facility] MED[facility]INE [facility] [place] [facility] February 13, 2025 01:00 PM AMBULATORY - MEDICINE [facility] Mar 14, 2025 08:30 AM [facility] Mar 14, 2025 09:00 AM AMBULATORY - MEDICINE [facility] Active, Pending, and Scheduled Orders This section includes a listing of several types of active, pending, and scheduled orders, including clinic medications orders, diagnostic test orders, procedure orders and consult orders; where the start date of the order is 45 days before the date of the Encounter or 45 days after the date of theEncounter. The data comes from all [facility] facilities. Test Date/Time Test Type Test Details Facility Name Nov 16, 2024 12:00 AM Laboratory - Chemi stry Order HEMOGLOBIN A1C PANEL BLOOD (LAV-BLOOD) [facility] Nov 16, 2024 12:00 AM Laboratory - Chemi stry Order FERRITIN BLOOD (SST-SERUM) [facility] Nov 16, 2024 12:00 AM Laboratory - Chemi stry Order TSH BLOOD (SST-SERUM) [facility] Nov 16, 2024 12:00 AM Laboratory - Chemi stry Order PSA BLOOD (SST-SERUM) [facility] Nov 16, 2024 12:00 AM Laboratory - Chemi stry Order LIPASE BLOOD (SST-SERUM) [facility] Nov 16, 2024 12:00 AM Laboratory - Chemi stry Order AMYLASE BLOOD (SST-SERUM) [facility] Nov 16, 2024 12:00 AM Laboratory - Chemi stry Order URINALYSIS URINE [facility] Nov 16, 2024 12:00 AM Laboratory - Chemi stry Order MICROALBUMIN CREATININE RATIO PANEL URINE (RANDOM) [facility] Nov 16, 2024 12:00 AM Laboratory - Chemi stry Order LIVER FUNCTION BLOOD (SST-SERUM) [facility] Nov 16, 2024 12:00 AM Laboratory - Chemi stry Order BASIC METABOLIC PANEL (fasting) BLOOD (SST-SERUM) [facility] Nov 16, 2024 12:00 AM Laboratory - Chemi stry Order LIPID PANEL FASTING BLOOD (SST-SERUM) [facility] Nov 16, 2024 12:00 AM Laboratory - Chemi stry Order CALCIUM BLOOD (SST-SERUM) [facility] Nov 16, 2024 12:00 AM Laboratory - Chemi stry Order URIC ACID BLOOD (SST-SERUM) [facility] Nov 16, 2024 12:00 AM Laboratory - Chemi stry Order VITAMIN D (25-OH) BLOOD (SST-SERUM) [facility] [place] Nov 16, 2024 12:00 AM Laboratory - Chemi stry Order CBC AND DIFF (AUTO) BLOOD (LAV-BLOOD) [facility] Lab Results: +/- 30 days of the encounter This section includes the Chemistry and Hematology Lab Results on record with NH for the patient. Radiology Reports and Pathology Reports are provided separately, in subsequent sections. Lab Results This section contains the Chemistry/Hematology Results that were resulted 30 days before or 30 daysafter the date of the Encounter. Date/Time Source Result Type Result - Unit Interpretation Reference Range Specimen Type Comment Sep 20, 2024 09:25 AM [facility] MICROALBUMIN CREATININE RATIO PANEL URINE Spe cimen Type: URINE No comment entered. Ordering Provider: TAMI SANDERS Report Released Date/Time: Apr 19, 2024 10:52 AM Reporting Lab: [facility] [address] [address] Performing Lab: [facility] [address] [address] MICROALBUMIN/CREATININE RATIO 12.4 mg/g 0-29.9 MICROALBUMIN,QUANTITATIVE 2.3 mg/dL RR U NAVAIL CREATININE URINE 186.00 mg/dL Sep 20, 2024 09:25 AM [facility] FERRITIN SERUM Specimen Type: SERUM No comment entered. Ordering Provider: ALFREDO SANDERS Report Released Date/Time: Apr 19, 2024 10:52 AM Reporting Lab: [facility] [address] [address] Performing Lab: [facility] [address] [address] FERRITIN 248 ng/mL 20-300 Sep 20, 2024 09:25 AM [facility] BASIC METABOLIC PANEL (non-fasting) SERUM Spe cimen Type: SERUM No comment entered. Ordering Provider: ALFREDO SANDERS Report Released Date/Time: Apr 19, 2024 10:52 AM Reporting Lab: [facility] [address] [address] Performing Lab: [address] [address] UREA NITROGEN 7 mg/dL 7-25 GLUCOSE 115 mg/dL H 65-100 SODIUM 140 mmol/L 135-145 POTASSIUM 4.1 mmol/L 3.5-5.0 CHLORIDE 107 mmol/L 100-110 CO2 22 meq/L 20-30 CREATININE, Serum 1.07 mg/dL 0.50-1.40 eGFR(CKD-EPI 2020) 78 mL/min >60 Sep 20, 2024 09:25 AM [facility] IRON & TIBC PANEL SERUM Specimen Type: SERUM No comment entered. Ordering Provider: ALFREDO SANDERS Report Released Date/Time: Apr 19, 2024 10:52 AM Reporting Lab: [address] [address] Performing Lab: [address] [address] TIBC 352 ug/dL 204-475 IRON 60 ug/dL 40-160 Transferrin Saturation 17.0 L 20.0-50.0 Transferrin (TRF) 267 mg/dL 200-360 Sep 20, 2024 09:25 AM [facility] CBC BLOOD Specimen Type: BLOOD No comment entered. Ordering Provider: ALFREDO SANDERS Report Released Date/Time: Apr 19, 2024 10:52 AM Reporting Lab: [address] [address] Performing Lab: [address] [address] WBC 7.98 10*3/uL 4.50-11.00 RBC 4.46 10*6/uL 4.23-5.66 HGB 13.1 g/dL 12.8-17 HCT 37.7 L 39.2-50.4 MCV 84.5 fL 82-99 MCHC 34.7 g/dL 30.8-35.1 PLT 280 10*3/uL 140-360 RDW-CV 13.9 12.0-16.0 MCH 29.4 pg 26.2-32.6 Sep 19, 2024 08:34 AM [facility] HEMOGLOBIN A1C PANEL BLOOD Specimen Type: [...] Jul 29, 2024 03:01 PM Reporting Lab: [address] [address] Performing Lab: [address] [address] HEMOGLOBIN A1C 5.7 H 4.0-5.6 Sep 19, 2024 08:34 AM [facility] CREATININE (eGFR 2020) SERUM Specimen Type: S CRYSTAL No comment entered. Ordering Provider: SWAPNIL SCHOFIELD Report Released Date/Time: Jul 29, 2024 03:01 PM Reporting Lab: [address] [address] Performing Lab: [address] [address] CREATININE, Serum 1.12 mg/dL 0.50-1.40 eGFR(CKD-EPI 2020) 74 mL/min >60 Sep 13, 2024 07:33 AM [facility] HEMOGLOBIN A1C PANEL BLOOD Specimen Type: [...] Sep 07, 2024 03:50 PM Reporting Lab: [facility] [address] [address] Performing Lab: [facility] [address] [address] HEMOGLOBIN A1C 5.8 H 4.0-5.6 Sep 13, 2024 07:33 AM [facility] CREATININE (eGFR 2020) SERUM Specimen Type: S CRYSTAL No comment entered. Ordering Provider: SWAPNIL SCHOFIELD Report Released Date/Time: Sep 07, 2024 03:50 PM Reporting Lab: [facility] [address] [address] Performing Lab: [facility] [address] [address] CREATININE, Serum 1.10 mg/dL 0.50-1.40 eGFR(CKD-EPI 2020) 75 mL/min >60 Sep 13, 2024 07:33 AM [facility] LIPID PANEL FASTING SERUM Specimen Type: SERU M No comment entered. Ordering Provider: SWAPNIL SCHOFIELD Report Released Date/Time: Sep 07, 2024 03:50 PM Reporting Lab: [facility] [address] [address] Performing Lab: [facility] [address] [address] CHOLESTEROL 154 mg/dL TRIGLYCERIDE 248 mg/dL H 0-150 LDL calculated 73 mg/dL 0-129 CHOL/HDL 5.0 HDL CHOLESTEROL 31 mg/dL L 40-60 Social History: Smoking Status (Most current) and Tobacco Use (All prior to encounter date) This section includes the most current, and the historical, smoking and tobacco- related health factors from the NH facility where the Encounter took place. Current Smoking Status This section includes the most current smoking, or tobacco-related health factor, from the NH facility where the Encounter took place. Date/Time Current Smoking Status Comment Facil ity Dec 16, 2023 10:00 AM VA-TOBACCO USER EVERY DAY [place] Tobacco Use History This section includes a history of the smoking, or tobacco-related health factors, that were collected on or before the date of the Encounter. The data comes from the [place] facility where the Encounter took place. 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 [place] Dec 16, 2023 10:00 AM VA-TOBACCO USE MED NO [place] Dec 16, 2023 10:00 AM VA-TOBACCO USE MED YES [place] Dec 16, 2023 10:00 AM VA-TOBACCO USE WI 30 MIN OF WAKEUP [place] Dec 16, 2023 10:00 AM VA-TOBACCO USER EVERY DAY [place] Jan 13, 2023 02:00 PM VA-TOBACCO USE 1 T O < 5 YEARS [place] Jan 13, 2023 02:00 PM VA-TOBACCO USE ADVICE [place] Jan 13, 2023 02:00 PM 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 [place] Jan 13, 2023 02:00 PM VA-TOBACCO USE MED NO [place] Jan 13, 2023 02:00 PM VA-TOBACCO USE WI 30 MIN OF GULFPORTUP [place] Jan 13, 2023 02:00 PM VA-TOBACCO USER EVERY DAY [place] Jul 03, 2022 09:00 AM VA-TOBACCO FORMER USER [place] Jul 03, 2022 09:00 AM VA-TOBACCO QUIT 5 TO < 15 YRS [place] Jul 04, 2021 09:00 AM VA-TOBACCO USE > 1 5 LESS THAN 30 YEARS [place] Jul 04, 2021 09:00 AM VA-TOBACCO USE ADVICE [place] Jul 04, 2021 09:00 AM 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 [place] Jul 04, 2021 09:00 AM VA-TOBACCO USE MED NO [place] Jul 04, 2021 09:00 AM VA-TOBACCO USE WI 30 MIN OF GULFPORTUP [place] Jul 04, 2021 09:00 AM VA-TOBACCO USER SOME DAYS [place] Apr 30, 2020 10:39 AM VA-TOBACCO FORMER USER [place] Apr 30, 2020 10:39 AM VA-TOBACCO QUIT 5 TO < 15 YRS [place] Dec 21, 2018 03:15 PM VA-TOBACCO FORMER USER [place] Dec 21, 2018 03:15 PM VA-TOBACCO QUIT 1 TO < 5 YRS [place] Nov 24, 2017 09:54 AM CURRENT SMOKER cigarets [place] Nov 24, 2017 09:54 AM V1-PT READY TO SHARAN T TOBACCO USE [place] Mar 25, 2017 01:57 PM CURRENT SMOKER down to 10 cigarettes daily [place] Mar 25, 2017 01:57 PM V1-PT DECLINES TOB ACCO CESSATION MEDS [place] Mar 25, 2017 01:57 PM V1-PT READY TO SHARAN T TOBACCO USE [place] March 04, 2017 02:38 PM CURRENT SMOKER advise stopm [place] Jul 22, 2016 09:29 AM V1-PT NOT INTEREST ED IN QUIT TOBACCO USE [place] Nov 21, 2015 09:21 AM CURRENT SMOKER half a pack a day [place] Nov 21, 2015 09:21 AM V1-PT NOT INTEREST ED IN QUIT TOBACCO USE [place] Nov 23, 2014 08:51 AM CURRENT SMOKER [facility] Nov 23, 2014 08:51 AM V1-PT READY TO SHARAN T TOBACCO USE [place] Dec 16, 2013 02:19 PM CURRENT SMOKER 3/4 pack a day [place] Dec 16, 2013 02:19 PM V1-PT THINKING ABO UT QUIT TOBACCO USE [place] Advance Directives: All historical and current Section Date Range: From patient's date of to the date document was created. This section includes ALL of a patient's completed or amended VA Advance and Rescinded Directives. The entries below indicate that a directive exists for the patient, but an actual copy is not included with this document. The data comes from all [place] facilities. Date Advance Directives Provider Source Dec [...] 10/06/2024 10:15 Receipt Acknowledged By: 10/06/2024 11:39 /es/ JERAMY MASON Advanced Passementerie Worker --- Original Document --- 10/06/24 TOBACCO CESSATION NOTE: [place] Video Connect (VVC) Standard Documentation V[facility] Clinician Resources Only: E911 (Emergency Call Relay Center): [phone] National Veterans Crisis Line - 988 then press #1. [facility] Suicide Coordinator ? [phone], Ext. [phone]; Back-up Ext. [phone] [place] Police, [place], [place] ? [phone] Introduction: Visit is being conducted by [place] [employer]. [place] identified with 2 identifiers: [X] Full Name [X] Date of [ ] VA ID Card Emergency Plan: confirmed and/or provided the following information in case of emergency or technology failure. PATIENT PHONE - PHONE NUMBER [CELLULAR] - Is patient phone number correct, if not, enter below: 's phone number: ANGELA RIVERA [address], [place], [address] 's present location and address for appointment: home [place]'s emergency contact name and phone number: chart reported that location is private and safe: Yes Informed Consent: [place] informed of the risks and benefits of Telehealth video care. [place] has the right to refuse video services. If refuses video visit, a [id number] visit will be scheduled. verbalized consent for [...] was reported. No imminent risk reported. IMPRESSIONS: [place] is taking chanitx. No longer smoking. Chantix course of 6 months end of Oct. PLAN: 1) will return on 11/08/24 at 10am via [facility] 2) continue chantix and he will stop this month [employer] Coaching or Motivational Interviewing skills used. /karlene/ Lucina Lugo, PhD Clinical Psychologist Signed: 10/06/2024 10:14 LUCINA LUGO [place]AR[place] Oct 06, 2024 10:04 AM SMOKING CESSATION NOTE: LOCAL TITLE: TOBACCO CESSATION NOTE STANDARD TITLE: SMOKING CESSATION NOTE DATE OF NOTE: OCT 06, 2024@10:04 ENTRY DATE: OCT 06, 2024@10:04:24 AUTHOR: LUCINA LUGO EXP COSIGNER: URGENCY: STATUS: COMPLETED TOBACCO CESSATION NOTE Has ADDENDA [facility] Video Connect ([facility]VC) Standard Documentation VVC Clinician Resources Only: E911 (Emergency Call Relay Center): [phone] National Veterans Crisis Line - 988 then press #1. [facility] Suicide Coordinator ? [phone], Ext. [phone]; Back-up Ext. [phone] [place] Police, [place], [place] ? [phone] Introduction: Visit is being conducted by [place] [employer] [facility]. identified with 2 identifiers: [X] Full Name [X] Date of [ ] VA ID Card Emergency Plan: confirmed and/or provided the following information in case of emergency or technology failure. PATIENT PHONE - PHONE NUMBER [CELLULAR] - Is patient phone number correct, if not, enter below: [place]'s phone number: ANGELA RIVERA [address], [address] 's present location and address for appointment: home 's emergency contact name and phone number: chart reported that location is private and safe: Yes Informed Consent: informed of the risks and benefits of Telehealth video care. has the right to refuse video services. If refuses video visit, a [id number] visit will be scheduled. [place] verbalized consent for this video visit: Yes provided consent for any other persons present for visit: N/A If yes, who and relationship to patient: Secure visit: Visit was locked for security and privacy:Yes Smoking Cess f/u DATE: 10/06/24 DURATION OF COUNSELIN min DX: tobacco use disorder, mod REASON FOR ENCOUNTER: [place] attended session for smoking cessation. SUMMARY OF [...] to take if this occurs. MENTAL STATUS: [place] was oriented x3, mental status was WNL. No behavioral, perceptual orthought disturbances reported or observed. No concerns. CURRENT IMPRESSION OF LETHALITY RISK / PLAN FOR RISK MANAGEMENT: No thoughts, intent or plan to harm self or others was reported. No imminent risk reported. IMPRESSIONS: [place] is taking chanitx. No longer smoking. Chantix [...]
--- OUTSIDE RECORDS SUMMARY | 2025-02-01 16:06 | XMS_ITS | Encounter Summary ---
Author Name [facility] [place] [facility] [place] [facility] [place] [facility] [place] Address [address] [place] [address] Care Team Providers Care Air Brakes Inspector Name Role Phone AUSTIN BALDWIN Primary [facility] Insurance Providers: All historical and [...] PATRICIO ERICKSON Nov 14, 2024 PATRICIO MULLIGAN [id number] Dougie RIVERA PATIENT [facility] MEDICAID MEDICAID MEDIC AID Oct 05, 2016 MEDICAI D [id number] NICOLE,A NALLELY PATIENT MEDICAID MEDICAID [facility] Oct 05, 2014 MEDICAI D [id number] Dougie RIVERA NALLELY PATIENT MEDICARE (WNR) MEDICARE (M) PART A May 05, 2018 PART [id number] [facility] Dougie RIVERA NALLELY PATIENT MEDICARE (WNR) MEDICARE (M) PART B May 05, 2018 PART B [id number] [facility] [phone] Dougie RIVERA PATIENT Selected Encounter This section includes the information on record at [place] for the Encounter. Date/Time Encounter Type Encounter Description Reason Provider Source Apr 05, 2024 01:30 PM MTMS BY ANJALI SNEED 15 MIN CLINICAL PHARMACY ICD-10-CM E11.9 Type 2 diabetes mellitus without complications SWAPNIL NEWMAN Nancy Encounter Template Text not used by [place] Assessments - Encounter Diagnoses This section includes the primary and secondary diagnoses documented for the Encounter. Date/Time Primary/Secondary Diagnosis Diagnosis Name Provider Source Apr 05, 2024 11:22 AM PRIMARY Type 2 diabetes mellitus without complications SWAPNIL NEWMAN [place] Plan of Treatment: Future Appointments (+ 6 months) and Future Tests (+/- 45 days) The Plan of Treatment section includes future care activities for the patient from all [place] [facility]. This section includes future appointments and [...] 19, 2024 10:30 AM AMBULATORY - MEDICINE [place] [facility] [facility] Apr 26, 2024 10:00 AM AMBULATORY - MEDICINE [facility] Apr 27, 2024 10:30 AM AMBULATORY - MEDICINE [place] [facility] May 03, 2024 09:00 AM AMBULATORY - MEDICINE [facility] May 10, 2024 01:00 PM AMBULATORY - MEDICINE [place] [facility] May 20, 2024 09:00 AM AMBULATORY - MEDICINE [facility] May 31, 2024 03:30 PM AMBULATORY - MEDICINE [place] [facility] [facility] Jun 14, 2024 03:30 PM AMBULATORY - MEDICINE [place] [facility] [place] [place] [facility] Jun 23, 2024 09:00 AM AMBULATORY - MEDICINE [place] [facility] [place] [facility] Jul 05, 2024 03:30 PM AMBULATORY - MEDICINE [place] [facility] [place] [place] [facility] Jul 15, 2024 11:30 AM AMBULATORY - MEDICINE [facility] Jul 25, 2024 09:30 AM AMBULATORY - MEDICINE [place] [facility] [place] [facility] Jul 25, 2024 10:00 AM AMBULATORY - MEDICINE [place] [facility] [place] [facility] Jul 25, 2024 11:00 AM AMBULATORY - MEDICINE [place] [facility] Jul 28, 2024 09:30 AM AM[facility]ORY - MEDICINE [place] [place] Jul 28, 2024 10:00 AM AMBULATORY - MEDICINE [place] [place] Jul 29, 2024 03:00 PM AMBULATORY - MEDICINE [place] [facility] Aug 03, 2024 03:30 PM AMBULATORY - MEDICINE [place] [facility] [place] [facility] Aug 05, 2024 08:30 AM AMBULATORY - MEDICINE [place] [facility] Aug 11, 2024 08:30 AM [facility] Active, Pending, and Scheduled Orders This section includes a listing of several types of active, pending, and scheduled orders, including clinic medications orders, diagnostic test orders, procedure orders and consult orders; where the start date of the order is 45 days before the date of the Encounter or 45 days after the date of theEncounter. The data comes from all [place] treatment facilities. Test Date/Time Test Type Test Details Facility Name February 22, 2024 12:00 AM Laboratory - Chemi dorethay Order HEMOGLOBIN A1C PANEL BLOOD (LAV-BLOOD) [facility] Lab Results: +/- 30 days of the encounter This section includes the Chemistry and Hematology Lab Results on record with [place] for the patient. Radiology Reports and Pathology Reports are provided separately, in subsequent sections. Lab Results This section contains the Chemistry/Hematology Results that were resulted 30 days before or 30 daysafter the date of the Encounter. Date/Time Source Result Type Result - Unit Interpretation Reference Range Specimen Type Comment Apr 05, 2024 08:13 AM [facility] VITAMIN D (25-OH) SERUM Specimen Type: SERUM No comment entered. Ordering Provider: ALFREDO SANDERS Report Released Date/Time: Jan 19, 2024 04:58 PM Reporting Lab: [address] [address] Performing Lab: [address] [address] VITAMIN D (25-OH) 43 ng/mL 20-50 Apr 05, 2024 08:13 AM [facility] FERRITIN SERUM Specimen Type: SERUM No comment entered. Ordering Provider: ALFREDO SANDERS Report Released Date/Time: Jan 19, 2024 04:58 PM Reporting Lab: [address] [address] Performing Lab: [address] [address] FERRITIN 33 ng/mL 20-300 Apr 05, 2024 08:13 AM [facility] MICROALBUMIN CREATININE RATIO PANEL URINE Spe cimen Type: URINE No comment entered. Ordering Provider: ALFREDO SANDERS Report Released Date/Time: Jan 19, 2024 04:58 PM Reporting Lab: [address] [address] Performing Lab: [address] [address] MICROALBUMIN/CREATININE RATIO 70.7 mg/g H 0-29.9 MICROALBUMIN,QUANTITATIVE 11.0 mg/dL RR UNAVAIL CREATININE URINE 155.54 mg/dL Apr 05, 2024 08:13 AM [facility] BASIC METABOLIC PANEL (non-fasting) SERUM Spe cimen Type: SERUM No comment entered. Ordering Provider: ALFREDO SANDERS Report Released Date/Time: Jan 19, 2024 04:58 PM Reporting Lab: [address] [address] Performing Lab: [address] [address] UREA NITROGEN 14 mg/dL 7-25 GLUCOSE 128 mg/dL H 65-100 SODIUM 138 mmol/L 135-145 POTASSIUM 4.5 mmol/L 3.5-5.0 CHLORIDE 103 mmol/L 100-110 CO2 24 meq/L 20-30 CREATININE, Serum 1.35 mg/dL 0.50-1.40 eGFR(CKD-EPI 2020) 59 mL/min L >60 Apr 05, 2024 08:13 AM [facility] IRON & TIBC PANEL SERUM Specimen Type: SERUM No comment entered. Ordering Provider: ALFREDO SANDERS Report Released Date/Time: Jan 19, 2024 04:58 PM Reporting Lab: [facility] [address] [facility] [address] Performing Lab: [facility] [address] TIBC 494 ug/dL H 204-475 IRON 110 ug/dL 40-160 Transferrin Saturation 22.3 20.0-50.0 Apr 05, 2024 08:13 AM [facility] CBC BLOOD Specimen Type: BLOOD No comment entered. Ordering Provider: ALFREDO SANDERS Report Released Date/Time: Jan 19, 2024 04:58 PM Reporting Lab: [facility] [address] Performing Lab: [facility] [address] [address] WBC 8.57 10*3/uL 4.50-11.00 RBC 5.34 10*6/uL [...] and tobacco- related health factors from the [place] facility where the Encounter took place. Current Smoking Status This section includes the most current smoking, or tobacco-related health factor, from the [place] facility where the Encounter took place. Date/Time Current Smoking Status Comment Michela ity Dec 16, 2023 10:00 AM VA-TOBACCO USER EVERY DAY [place] Tobacco Use History This section includes a history of the smoking, or tobacco-related health factors, that were collected on or before the date of the Encounter. The data comes from the [place] facility where the Encounter took place. Date/Time Smoking Status/Tobacco Use Comment F acility Dec 16, 2023 10:00 AM NV-TOBACCO USE > 1 5 LESS THAN 30 YEARS [place] Dec 16, 2023 10:00 AM VA-TOBACCO USE 30 YEARS OR MORE [place] Dec 16, 2023 10:00 AM VA-TOBACCO USE ADVICE [place] Dec 16, 2023 10:00 AM VA-TOBACCO USE AU PAIR NO [place] Dec 16, 2023 10:00 AM VA-TOBACCO USE AU PAIR YES [place] Dec 16, 2023 10:00 AM VA-TOBACCO USE MED NO [place] Dec 16, 2023 10:00 AM VA-TOBACCO USE MED YES [place] Dec 16, 2023 10:00 AM VA-TOBACCO USE WI 30 MIN OF [place] Dec 16, 2023 10:00 AM VA-TOBACCO USER EVERY DAY [place] Jan 13, 2023 02:00 PM VA-TOBACCO USE 1 T O < 5 YEARS [place] Jan 13, 2023 02:00 PM VA-TOBACCO USE ADVICE [place] Jan 13, 2023 02:00 PM VA-TOBACCO USE AU PAIR NO [place] Jan 13, 2023 02:00 PM VA-TOBACCO USE MED NO [place] Jan 13, 2023 02:00 PM VA-TOBACCO USE WI 30 MIN OF WAKEUP [place] Jan 13, 2023 02:00 PM VA-TOBACCO USER EVERY DAY [place] Jul 03, 2022 09:00 AM VA-TOBACCO FORMER USER [place] Jul 03, 2022 09:00 AM VA-TOBACCO QUIT 5 TO < 15 YRS [place] Jul 04, 2021 09:00 AM VA-TOBACCO USE > 1 5 LESS THAN 30 YEARS [place] Jul 04, 2021 09:00 AM VA-TOBACCO USE ADVICE [place] Jul 04, 2021 09:00 AM VA-TOBACCO USE AU PAIR NO [place] Jul 04, 2021 09:00 AM VA-TOBACCO USE MED NO [place] Jul 04, 2021 09:00 AM VA-TOBACCO USE WI 30 MIN OF [facility] Jul 04, 2021 09:00 AM VA-TOBACCO USER SOME DAYS [place] Apr 30, 2020 10:39 AM VA-TOBACCO FORMER USER [place] Apr 30, 2020 10:39 AM VA-TOBACCO QUIT 5 TO < 15 YRS [place] Dec 21, 2018 03:15 PM VA-TOBACCO FORMER USER [place] Dec 21, 2018 03:15 PM VA-TOBACCO QUIT 1 TO < 5 YRS [place] Nov 24, 2017 09:54 AM CURRENT SMOKER cigarets [place] Nov 24, 2017 09:54 AM V1-PT READY TO SHARAN T TOBACCO USE [place] Mar 25, 2017 01:57 PM CURRENT SMOKER down to 10 cigarettes daily [place] Mar 25, 2017 01:57 PM V1-PT DECLINES TOB ACCO CESSATION MEDS [place] Mar 25, 2017 01:57 PM V1-PT READY TO SHARAN T TOBACCO USE [place] March 04, 2017 02:38 PM CURRENT SMOKER advise stopm [place] Jul 22, 2016 09:29 AM V1-PT NOT INTEREST ED IN QUIT TOBACCO USE [place] Nov 21, 2015 09:21 AM CURRENT SMOKER half a pack a day [place] Nov 21, 2015 09:21 AM V1-PT NOT INTEREST ED IN QUIT TOBACCO USE [place] Nov 23, 2014 08:51 AM CURRENT SMOKER [facility] Nov 23, 2014 08:51 AM V1-PT READY TO SHARAN T TOBACCO USE [place] Dec 16, 2013 02:19 PM CURRENT SMOKER 3/4 pack a day [place] Dec 16, 2013 02:19 PM V1-PT THINKING ABO UT QUIT TOBACCO USE [place] Advance Directives: All historical and current [...] Encounter Note(s) Provider Source Apr 05, 2024 10:35 AM PHARMACY OUTPATIEN T NOTE: LOCAL TITLE: PHARMACY CLINIC NOTE STANDARD TITLE: PHARMACY OUTPATIENT NOTE DATE OF NOTE: APR 05, 2024@10:35 ENTRY DATE: APR 05, 2024@10:35:06 AUTHOR: SWAPNIL NEWMAN COSIGNER: URGENCY: STATUS: COMPLETED Known Allergies: CODEINE, OXYCODONE ANGELA RIVERA presented for diabetes management treatment. Subjective: Rutherford referred to pharmacy clinic by PCP. Per [...] consult, I also did nephro consult . Rutherford presents to clinic today for follow-up. At time of last visit, semaglutide was initiated. He notes he is doing well; has [...] cut down from 15 cigg to 10cigg and now 5 cigg/day. He plans for a quit date of 04/15/24; followed by tobacco cessation clinic. States he will be saving $300/month in cigarettes. Target Goals: A1C: 7%; FB-110 mg/dl Objective: Diabetes Medication Regimen: semaglutide 0.25mg once weekly Adherence: N/A HEMOGLOBIN A1C TREND [...] SMBG; not SMBG recently. 04/05/24 BG ~100mg/dL. Patient eats on avg. 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 A1c and BG at goal. Will titrate semaglutide to effective dose and monitor. Encouraged to continue with LSMs. SGLT-2 inhibitor [...] A1c<7%, FBG 90-110mg/dL, 2hPP<180mg/dL): - INCREASE semaglutide 0.5mg once weekly - SMBG 2x/week - Monitor for s/sx hypoglycemia and contact clinic if BG consistently < 70mg/dL - Healthy dietary lifestyle modifications encouraged - Repeat A1c: May 2024 Tobacco Cessation: Pt with quit date of 04/15/24. Tolerating therapy without ADRs. Followed closely by MH and f/u with tobacco cessation clinic. Continue varenicline 1mg BID. Considerations: Initial duration of therapy is 12 weeks with a target quit date within the first 7 days of exposure to varenicline. If the patient stops smoking by week 12, an additional 12 weeks of therapy may increase the likelihood of longwall headgate operator abstinence. A course of therapy with [...] ideation). Counseled extensively. Patient has access to [facility] and states he would go to the hospital as needed. He is followed closely by Dr. Wallace Stephens. Clinic's Next Scheduled Follow-up: ~6 weeks HTN: at goal; DAMARI-I changed to CCB d/t rise in SCr; f/u nephrology ASCVD: not on statin; on fenofibrate; defer to PCP/review at f/u Microalb: 218.7 H mg/G (01/2024) History of Preventive Care: Most recent visit to rejogger: 01/2024 Most recent visit to optometry: 07/2023; [...] Swapnil Newman PharmD Clinical Pharmacy Practitioner Signed: 04/05/2024 11:22 Receipt Acknowledged By: 04/05/2024 11:42 /karlene/ JESSE CRUZ MA Bad Credit Collector SWAPNIL NEWMAN
--- OUTSIDE RECORDS SUMMARY | 2025-02-01 16:06 | XMS_ITS ---
Author Name [facility] (MD) Organization [facility] ([place]) Address [address] [place] [address] Care Team Providers Care Dial Brusher Name Role Phone AUSTIN BALDWIN Primary [...] Relationship to Policy Lomas PATRICIO MULLIGAN-WN R MD SPECIAL CLASS PATRICIO ERICKSON Nov 14, 2024 PATRICIO MULLIGAN [id number] NICOLE,Dougie NALLELY PATIENT [facility] MEDICA[facility] MEDICAID MEDIC AID Oct 05, 2016 MEDICAI D [id number] NICOLE,A NALLELY PATIENT MEDICAID MEDICAID [facility] Oct 05, 2014 MEDICAI D [id number] Dougie RIVERA NALLELY PATIENT MEDICARE (WNR) MEDICARE (M) PART A May 05, 2018 PART A [id number] Dougie RIVERA NALLELY PATIENT MEDICARE (WNR) MEDICARE (M) PART B May 05, 2018 PART B [id number] [phone] [id number] Dougie RIVERA PATIENT Selected Encounter This section includes the information on record at MD for the Encounter. Date/Time Encounter Type Encounter Description Reason Provider Source Mar 24, 2024 09:00 AM ACUPUNCT W/O STIMUL ADDL 15M [facility] TREATMENT ICD-10-CM R11.2 Nausea with vomiting, unspecified GAUNYA,NAVEED PHER M IHE Encounter Template Text not used by MD Assessments - Encounter Diagnoses This section includes the primary and secondary diagnoses documented for the Encounter. Date/Time Primary/Secondary Diagnosis Diagnosis Name Provider Source Mar 24, 2024 09:28 AM PRIMARY Nausea with vomiting, unspecified GAUNYA,NAVEED PHER M MD [facility] [facility] Mar 24, 2024 09:28 AM SECONDARY Post-traumatic stress disorder, unspecified GAUNYA,NAVEED PHER M MD [facility] [facility] Mar 24, 2024 09:28 AM SECONDARY Tobacco use ARCELIAUNYA,NAVEED PHER M MD [facility] [facility] Plan of Treatment: Future Appointments (+ 6 months) and Future Tests (+/- 45 days) The Plan of Treatment section includes future care activities for the patient from all MD treatmentfacilities. This section includes future appointments and future orders which are active, pending or scheduled. Future Appointments This section includes appointments that were scheduled to occur 6 months from the date of the Encounter, up to a maximum of 20 appointments. The data comes from all MD treatment facilities. Appointment Date/Time Appointment Type Appointme nt Facility Name Mar 31, 2024 10:00 AM AMBULATORY - NONE MD [facility] [place] [facility] Apr 05, 2024 10:00 AM [facility] Apr 05, 2024 01:30 PM [facility]ATORY - [facility]IC[facility] Apr 19, 2024 10:30 AM AMBULATORY - MEDICINE MD C [facility] [facility] Apr 26, 2024 10:00 AM [facility]ORY [facility] Apr 27, 2024 10:30 AM AMBULATORY - MEDICINE MD C [facility] [facility] May 03, 2024 09:00 AM [facility]ATORY - [facility]ICINE [facility] May 10, 2024 01:00 PM AMBULATORY - MEDICINE MD [facility] [place] [facility] May 20, 2024 09:00 AM [facility]ORY [facility] May 31, 2024 03:30 PM AM[facility]ULATORY - [facility]ICINE [facility] [place] [facility] Jun 14, 2024 03:30 PM AMBULATORY - MEDICINE [facility] Jun 23, 2024 09:00 AM AMBULATORY - MEDICINE [facility] [place] [facility] Jul 05, 2024 03:30 PM AMBULATORY - MEDICINE [facility] Jul 15, 2024 11:30 AM [facility]ATORY - [facility] Jul 25, 2024 09:30 AM AMBULATORY - MEDICINE [facility] [facility] Jul 25, 2024 10:00 AM AMBULATORY - MEDICINE [facility] [place] [facility] Jul 25, 2024 11:00 AM AMBULATORY - MEDICINE [facility] [facility] Jul 28, 2024 09:30 AM [facility] Jul 28, 2024 10:00 AM AMBULATORY - MEDICINE [facility] Jul 29, 2024 03:00 PM AMBULATORY - MEDICINE MD C [facility] [facility] Active, Pending, and [...] of theEncounter. The data comes from all MD treatment facilities. Test Date/Time Test Type Test Details Facility Name February 22, 2024 12:00 AM Laboratory - Chemi dorethay Order HEMOGLOBIN A1C PANEL BLOOD (LAV-BLOOD) [facility] Lab Results: +/- 30 days of the encounter This section includes the Chemistry and Hematology Lab Results on record with MD for the patient. Radiology Reports and Pathology Reports are provided separately, in subsequent sections. Lab Results This section contains the Chemistry/Hematology Results that were resulted 30 days before or 30 daysafter the date of the Encounter. Date/Time Source Result Type Result - Unit Interpretation Reference Range Specimen Type Comment Apr 05, 2024 08:13 AM MD [facility] [place] [facility] VITAMIN D (25-OH) SERUM Specimen Type: SERUM No comment entered. Ordering Provider: ALFREDO SANDERS Report Released Date/Time: Jan 19, 2024 04:58 PM Reporting Lab: [facility] [address] [address] Performing Lab: [facility] [address] [facility] [address] VITAMIN D (25-OH) 43 ng/mL 20-50 Apr 05, 2024 08:13 AM [facility] FERRITIN SERUM Specimen Type: SERUM No comment entered. Ordering Provider: ALFREDO SANDERS Report Released Date/Time: Jan 19, 2024 04:58 PM Reporting Lab: [facility] [address] [facility] [address] Performing Lab: [facility] [address] FERRITIN 33 ng/mL 20-300 Apr 05, 2024 08:13 AM [facility] BASIC METABOLIC PANEL (non-fasting) SERUM Spe cimen Type: SERUM No comment entered. Ordering Provider: ALFREDO SANDERS Report Released Date/Time: Jan 19, 2024 04:58 PM Reporting Lab: [facility] [address] Performing Lab: [facility] [address] UREA NITROGEN 14 mg/dL 7-25 GLUCOSE 128 mg/dL H 65-100 SODIUM 138 mmol/L 135-145 POTASSIUM 4.5 mmol/L 3.5-5.0 CHLORIDE 103 mmol/L 100-110 CO2 24 meq/L 20-30 CREATININE, Serum 1.35 mg/dL 0.50-1.40 eGFR(CKD-EPI 2020) 59 mL/min L >60 Apr 05, 2024 08:13 AM [facility] MICROALBUMIN CREATININE RATIO PANEL URINE Spe cimen Type: URINE No comment entered. Ordering Provider: ALFREDO SANDERS Report Released Date/Time: Jan 19, 2024 04:58 PM Reporting Lab: [facility] [address] [address] Performing Lab: [facility] [address] MICROALBUMIN/CREATININE RATIO 70.7 mg/g H 0-29.9 MICROALBUMIN,QUANTITATIVE 11.0 mg/dL RR UNAVAIL CREATININE URINE 155.54 mg/dL Apr 05, 2024 08:13 AM [facility] IRON & TIBC PANEL SERUM Specimen Type: SERUM No comment entered. Ordering Provider: ALFREDO SANDERS Report Released Date/Time: Jan 19, 2024 04:58 PM Reporting Lab: [address] [address] Performing Lab: [address] [address] TIBC 494 ug/dL H 204-475 IRON 110 ug/dL 40-160 Transferrin Saturation 22.3 20.0-50.0 Apr 05, 2024 08:13 AM [facility] CBC BLOOD Specimen Type: BLOOD No comment entered. Ordering Provider: ALFREDO SANDERS Report Released Date/Time: Jan 19, 2024 04:58 PM Reporting Lab: [address] [address] Performing Lab: [address] [address] WBC 8.57 10*3/uL 4.50-11.00 RBC 5.34 10*6/uL 4.23-5.66 HGB 16.0 g/dL 12.8-17 HCT 46.1 39.2-50.4 MCV 86.3 fL 82-99 MCHC 34.7 g/dL 30.8-35.1 PLT 278 10*3/uL 140-360 RDW-CV 12.6 12.0-16.0 MCH 30.0 pg 26.2-32.6 Advance Directives: All historical and current Section Date Range: From patient's date of to the date document was created. This section includes ALL of a patient's completed or amended MD Advance and Rescinded Directives. The entries below indicate that a directive exists for the patient, but an actual copy is not included with this document. The data comes from all MD facilities. Date Advance Directives Provider Source Dec 12, 2014 ADVANCE DIRECTIVE NORMAKATRINJAROCHO Conner Encounter Notes: All associated encounter notes This section contains the clinical notes associated to the Encounter. Date/Time Encounter Note(s) Provider Source Mar 24, 2024 09:24 AM ACUPUNCTURE NOTE: LOCAL TITLE: ACUPUNCTURE TREATMENT STANDARD TITLE: ACUPUNCTURE NOTE DATE OF NOTE: MAR 24, 2024@09:24 ENTRY DATE: MAR 24, 2024@09:24:12 AUTHOR: JEFFERY ALFARO EXP COSIGNER: URGENCY: STATUS: COMPLETED VISIT Number: ANGELA RIVERA is a 63 WHITE MALE [...] Colonoscopy normal 799.9 04/10/2015 AUSTIN BALDWIN Date Mar CC / HPI - presents with chronic nausea and anxiety. [place] has stage III kidney disease and which causes a cascade of effects including nausea and dehydration. [place] states that he has attacks where he will have nausea dizziness and sweating and feel lightheaded. states in November he was hospitalized 4 [...] reports feeling well rested in the morning. [place] states appetite is good though he has [...] bathroom in time. RESPONSE TO PREVIOUS TREATMENT. [place] reports he did extremely well with his initial acupuncture visit. [place] reports he has had 0 nausea since his treatment at the beginning of February. [place] also says that his cravings for cigarettes dropped significantly and lasted quite a while over several weeks. _ OBJECTIVE General: . Patient in no [...] KD, SP, LR Medical Decision Making (MDM) [ ]Straightforward o [ ]Minimal = 1 self-limited or minor problem [X]Low o - 2 or more self-limited or minor problems o - 1 stable chronic illness o - 1 acute, uncomplicated illness or injury [ ]Moderate o - 1 or more [...] ]Pyonex Needle: remove prior to bathing per echocardiologist INFORMED CONSENT: Oral Consent obtained on Mar The patient was positioned comfortably. Oral consent [...] 2, SP 3 [ ]Other therapies: [ ]Cupping: [...] is required /karlene/ JEFFERY ALFARO LA.C DIPL.AC TYPESETTERS PRINTER Signed: 03/24/2024 13:41 JEFFERY ALFARO [facility]
--- OUTSIDE RECORDS SUMMARY | 2025-02-01 16:06 | XMS_ITS | Encounter Summary ---
Author Name [facility] [place] Organization [facility] [place] [facility] [place] Address [address] [place] [address] Care Team Providers Care Rug Repairer Name Role Phone AUSTIN BALDWIN Primary Care [...] Relationship to Policy Lomas PATRICIO MULLIGAN-WN R [place] SPECIAL CLASS PATRICIO ERICKSON Nov 14, 2024 PATRICIO MULLIGAN [id number] NICOLE,A NALLELY PATIENT [facility] MED[place] MEDICAID MEDIC AID Oct 05, 2016 MEDICAI D [id number] NICOLE,A NALLELY PATIENT MEDICAID MEDICAID [facility] Oct 05, 2014 MEDICAI D [id number] NICOLE,A NALLELY PATIENT MEDICARE (WNR) MEDICARE (M) PART A May 05, 2018 PART A [id number] NICOLE,Dougie NALLELY PATIENT MEDICARE (WNR) MEDICARE (M) PART B May 05, 2018 PART B [id number] Dougie RIVERA PATIENT Selected Encounter This section includes the information on record at NH for the Encounter. Date/Time Encounter Type Encounter Description Reason Provider Source Jun 23, 2024 09:00 AM ACUPUNCT W/O STIMUL 15 MIN [facility] TREATMENT ICD-10-CM F41.9 Anxiety disorder, unspecified NAVEED ALFARO E Encounter Template Text not used by [place] Assessments - Encounter Diagnoses This section includes the primary and secondary diagnoses documented for the Encounter. Date/Time Primary/Secondary Diagnosis Diagnosis Name Provider Source Jun 23, 2024 09:44 AM PRIMARY Anxiety disorder, unspecified NAVEED ALFARO PHER M [place] [facility] [place] [facility] Jun 23, 2024 09:44 AM SECONDARY Panic disorder [episodic paroxysmal anxiety] NAVEDE ALFARO PHER M [place] [facility] [place] [facility] Jun 23, 2024 09:44 AM SECONDARY Tobacco use NAVEED ALFARO PHER M [place] [facility] [place] [facility] Plan of Treatment: Future Appointments (+ 6 months) and Future Tests (+/- 45 days) The Plan of Treatment section includes future care activities for the patient from all [place] [facility] [place]. This section includes future appointments and future [...] 05, 2024 03:30 PM AMBULATORY - MEDICINE [place] [facility] [place] [facility] Jul 15, 2024 11:30 AM [facility]ULATORY [facility] Jul 25, 2024 09:30 AM AMBULATORY - MEDICINE [place] [facility] [place] [facility] Jul 25, 2024 10:00 AM AMBULATORY - MEDICINE [place] [facility] [place] [facility] Jul 25, 2024 11:00 AM AMBULATORY - MEDICINE [place] [facility] [place] [facility] Jul 28, 2024 09:30 AM AMBULATORY [facility] Jul 28, 2024 10:00 AM AM[facility]ULATORY [facility] Jul 29, 2024 03:00 PM AMBULATORY - MEDICINE [place] [facility] [place] [facility] Aug 03, 2024 03:30 PM AMBULATORY - MEDICINE [place] [facility] [place] [facility] Aug 05, 2024 08:30 AM AMBULATORY - MEDICINE [place] [facility] [place] [facility] Aug 11, 2024 08:30 AM AMBULATORY - MEDICINE [facility] [place] [facility] Aug 25, 2024 09:00 AM AMBULATORY - MEDICINE [facility] [place] [facility] Sep 07, 2024 10:00 AM AMBULATORY - MEDICINE [facility] [place] [facility] Sep 07, 2024 03:00 PM AMBULATORY - MEDICINE [facility] [place] [facility] Sep 12, 2024 09:00 AM [facility]ULATORY [facility] Sep 15, 2024 08:45 AM AMBULATORY - MEDICINE [place] [facility] [place] [facility] Sep 20, 2024 09:30 AM AM[facility]ULATORY [facility] Sep 20, 2024 10:30 AM AMBULATORY [facility] MED[facility] Oct 06, 2024 10:00 AM AMBULATORY - MEDICINE [place] [facility] [place] [facility] Oct 18, 2024 08:30 AM AMBULATORY - MEDICINE [place] [facility] [place] [facility] Advance Directives: All historical and current Section Date Range: From patient's date of to the date document was created. This section includes ALL of a patient's completed or amended [place] Advance and Rescinded Directives. The entries below [...] AUSTIN BALDWIN Carpal tunnel syndrome 354.0 12/16/2013 UASTIN BALDWIN Fracture of ankle 824.8 12/16/2013 AUSTIN [...] nausea dizziness and sweating and feel lightheaded. [place] states in November he was hospitalized 4 [...] history of acid reflux or other issues. [place] states bowel movements are normal and unremarkable. Urination: [place] states that he can often have urgency to urinate. He reports that several times he has not made it to the bathroom in time. RESPONSE TO PREVIOUS TREATMENT. [place] reports last treatment was very helpful with his nausea and anxiety for a few weeks. [place] states the past 5 days he has had a very intense anxiety attack which she described as a roller coaster. [place] states that he still feels physically drained but has been doing better in the last day or so. states that his smoking cravings have been well-managed between the acupuncture and the Chantix he has been taking. [place] states he is only smoked 1 cigarette in the last 15 days. [place] also notes that he has been staying [...] ]Pyonex Needle: remove prior to bathing per service parts coordinator INFORMED CONSENT: Oral Consent obtained on Jun [...] is required /karlene/ JEFFERY ALFARO LA.C DIPL.AC SHARED SERVICES MANAGER Signed: 06/23/2024 15:43 JEFFERY ALFARO [facility]
--- OUTSIDE RECORDS SUMMARY | 2025-02-01 16:06 | XMS_ITS | Encounter Summary ---
Author Name [facility] [place] [facility] [place] [facility] [facility] [place] Address [address] [place] [address] Care Team Providers Care Dinkey Brakeman Name Role Phone AUSTIN BALDWIN Primary [facility] Insurance Providers: All historical and current [...] PATRICIO ERICKSON Nov 14, 2024 PATRICIO MULLIGAN [id number] Dougie RIVERA PATIENT [facility] MEDICAID MEDICAID MEDIC AID Oct 05, 2016 MEDICAI D [id number] NICOLE,A NALLELY PATIENT MEDICAID MEDICAID [facility] Oct 05, 2014 MEDICAI D [id number] Dougie RIVERA NALLELY PATIENT MEDICARE (WNR) MEDICARE (M) PART A May 05, 2018 PART A [id number] [facility] Dougie RIVERA NALLELY PATIENT MEDICARE (WNR) MEDICARE (M) PART B May 05, 2018 PART B [id number] [facility] Dougie RIVERA PATIENT Selected Encounter This section includes the information on record at [place] for the Encounter. Date/Time Encounter Type Encounter Description Reason Provider Source Mar 16, 2024 11:00 AM OFFICE O/P EST MOD 30 MIN PRIMARY CARE/MEDICINE ICD-10-CM I10 Essential (primary) hypertension AUSTIN BALDWIN Encounter Template Text not used by [place] Assessments - Encounter Diagnoses This section includes the primary and secondary diagnoses documented for the Encounter. Date/Time Primary/Secondary Diagnosis Diagnosis Name Provider Source Mar 16, 2024 11:37 AM PRIMARY Essential (primary) hypertension AUSTIN BALDWIN Mar 16, 2024 11:37 AM SECONDARY Mixed hyperlipidemia AUSTIN BALDWIN SHARONA Mar 16, 2024 11:37 AM SECONDARY Type 2 diabetes mellitus without complications AUSTIN BALDWIN Plan of Treatment: Future Appointments [...] Appointment Type Appointme nt Facility Name Mar 22, 2024 09:00 AM AMBULATORY - MEDICINE [facility] Mar 24, 2024 09:00 AM AMBULATORY - MEDICINE [facility] [place] [facility] Mar 31, 2024 10:00 AM AMBULATORY - NONE [facility] [place] [facility] Apr 05, 2024 10:00 AM [facility]ATORY - MEDICINE [facility] Apr 05, 2024 01:30 PM [facility] Apr 19, 2024 10:30 AM AMBULATORY - MEDICINE [facility] [place] [facility] Apr 26, 2024 10:00 AM AMBULATORY - MEDICINE [facility] Apr 27, 2024 10:30 AM AMBULATORY - MEDICINE [facility] [place] [facility] May 03, 2024 09:00 AM [facility] May 10, 2024 01:00 PM AMBULATORY - MEDICINE [facility] [place] [facility] May 20, 2024 09:00 AM [facility] May 31, 2024 03:30 PM AMBULATORY - MEDICINE [facility] [place] [facility] Jun 14, 2024 03:30 PM AMBULATORY - MEDICINE [facility] [place] [facility] Jun 23, 2024 09:00 AM AMBULATORY - MEDICINE [facility] [place] [facility] Jul 05, 2024 03:30 PM AMBULATORY - MEDICINE [facility] [place] [facility] Jul 15, 2024 11:30 AM [facility]ORY [place]ICINE [place] [place] Jul 25, 2024 09:30 AM AMBULATORY - MEDICINE [facility] [place] [facility] Jul 25, 2024 10:00 AM AMBULATORY - MEDICINE [facility] [place] [facility] Jul 25, 2024 11:00 AM AMBULATORY - MEDICINE [facility] [place] [facility] Jul 28, 2024 09:30 AM [facility] Active, Pending, and Scheduled Orders This [...] shaila Order HEMOGLOBIN A1C PANEL BLOOD (LAV-BLOOD) [facility] Lab Results: +/- 30 days of the [...] Type Comment Apr 05, 2024 08:13 AM [facility] VITAMIN D (25-OH) SERUM Specimen Type: SERUM No comment entered. Ordering Provider: ALFREDO SANDERS Report Released Date/Time: Jan 19, 2024 04:58 PM Reporting Lab: [address] [address] Performing Lab: [address] [address] VITAMIN D (25-OH) 43 ng/mL 20-50 Apr 05, 2024 08:13 AM [facility] MICROALBUMIN CREATININE RATIO PANEL URINE Spe cimen Type: URINE No comment entered. Ordering Provider: ALFREDO SANDERS Report Released Date/Time: Jan 19, 2024 04:58 PM Reporting Lab: [facility] [address] [facility] [address] Performing Lab: [facility] [address] [facility] [address] MICROALBUMIN/CREATININE RATIO 70.7 mg/g H 0-29.9 MICROALBUMIN,QUANTITATIVE 11.0 mg/dL RR UNAVAIL CREATININE URINE 155.54 mg/dL Apr 05, 2024 08:13 AM [facility] FERRITIN SERUM Specimen Type: SERUM No comment entered. Ordering Provider: ALFREDO SANDERS Report Released Date/Time: Jan 19, 2024 04:58 PM Reporting Lab: [address] [address] Performing Lab: [address] [address] FERRITIN 33 ng/mL 20-300 Apr 05, 2024 08:13 AM [facility] IRON & TIBC PANEL SERUM Specimen Type: SERUM No comment entered. Ordering Provider: ALFREDO SANDERS Report Released Date/Time: Jan 19, 2024 04:58 PM Reporting Lab: [address] [address] Performing Lab: [address] [address] TIBC 494 ug/dL H 204-475 IRON 110 ug/dL 40-160 Transferrin Saturation 22.3 20.0-50.0 Apr 05, 2024 08:13 AM [facility] BASIC METABOLIC PANEL (non-fasting) SERUM Spe cimen Type: SERUM No comment entered. Ordering Provider: ALFREDO SANDERS Report Released Date/Time: Jan 19, 2024 04:58 PM Reporting Lab: [address] [address] Performing Lab: [facility] [address] [facility] [address] UREA NITROGEN 14 mg/dL 7-25 GLUCOSE 128 mg/dL H 65-100 SODIUM 138 mmol/L 135-145 POTASSIUM 4.5 mmol/L 3.5-5.0 CHLORIDE 103 mmol/L 100-110 CO2 24 meq/L 20-30 CREATININE, Serum 1.35 mg/dL 0.50-1.40 eGFR(CKD-EPI 2020) 59 mL/min L >60 Apr 05, 2024 08:13 AM [facility] CBC BLOOD Specimen Type: BLOOD No comment entered. Ordering Provider: ALFREDO SANDERS Report Released Date/Time: Jan 19, 2024 04:58 PM Reporting Lab: [facility] [address] [facility] [address] Performing Lab: [address] [address] WBC 8.57 10*3/uL 4.50-11.00 RBC 5.34 10*6/uL 4.23-5.66 HGB 16.0 g/dL 12.8-17 HCT 46.1 39.2-50.4 MCV 86.3 fL 82-99 MCHC 34.7 g/dL 30.8-35.1 PLT 278 10*3/uL 140-360 RDW-CV 12.6 12.0-16.0 MCH 30.0 pg 26.2-32.6 February 23, 2024 09:10 AM [facility] FERRITIN SERUM Sp ecimen Type: SERUM No comment entered. Ordering Provider: AUSTIN BALDWIN Report Released Date/Time: Dec 22, 2023 10:15 AM Reporting Lab: [facility] [address] [facility] [address] Performing Lab: [address] [address] FERRITIN 46 ng/mL 20-300 February 23, 2024 09:10 AM [facility] MICROALBUMIN CREATININE RATIO PANEL URINE Specimen Type: URINE No comment entered. Ordering Provider: AUSTIN BALDWIN Report Released Date/Time: Dec 22, 2023 10:15 AM Reporting Lab: [facility] [address] [address] Performing Lab: [facility]ERYN [facility]USE[address] [address] MICROALBUMIN/CREATININE RATIO 22.3 mg/g 0-29.9 MICROALBUMIN,QUANTITATIVE 2.5 mg/dL RR U NAVAIL CREATININE URINE 112.32 mg/dL February 23, 2024 09:10 AM [facility] URIC ACID SERUM Sp ecimen Type: SERUM No comment entered. Ordering Provider: AUSTIN BALDWIN Report Released Date/Time: Dec 22, 2023 10:15 AM Reporting Lab: [facility]RJ[facility]PITALTRN [facility]USE[address] [address] Performing Lab: [facility] [address] [address] URIC ACID 4.8 mg/dL 3.5-7.2 February 23, 2024 09:10 AM [facility] HEMOGLOBIN A1C PANEL BLOOD Specimen T ype: [...] Dec 22, 2023 10:15 AM Reporting Lab: [facility]RJ[facility]OSPITALTRN [facility]USE[address] [address] Performing Lab: [facility]ITALRENCOM[facility] MON[facility]ERYN [facility]USE[address] [address] HEMOGLOBIN A1C 6.4 H 4.0-5.6 February 23, 2024 09:10 AM [facility] PSA SERUM Sp ecimen Type: SERUM No comment entered. Ordering Provider: AUSTIN BALDWIN Report Released Date/Time: Dec 22, 2023 10:15 AM Reporting Lab: [facility]ITALRJ[facility] HOSPITALTRN [facility]USE[address] [address] Performing Lab: [facility] [address] [address] PSA 0.63 ng/mL 0.00-4.00 February 23, 2024 09:10 AM [facility] TSH SERUM Sp ecimen Type: SERUM No comment entered. Ordering Provider: AUSTIN BALDWIN Report Released Date/Time: Dec 22, 2023 10:15 AM Reporting Lab: [facility] [address] [facility] [address] Performing Lab: [address] [address] TSH 1.89 u[IU]/mL 0.35-5.00 February 23, 2024 09:10 AM [facility] BASIC METABOLIC PANEL (fasting) SERUM Specimen Type: SERUM No comment entered. Ordering Provider: AUSTIN BALDWIN Report Released Date/Time: Dec 22, 2023 10:15 AM Reporting Lab: [address] [address] Performing Lab: [address] [address] UREA NITROGEN 11 mg/dL 7-25 GLUCOSE 122 mg/dL H 65-100 SODIUM 140 mmol/L 135-145 POTASSIUM 4.4 mmol/L 3.5-5.0 CHLORIDE 107 mmol/L 100-110 CO2 24 meq/L 20-30 CREATININE, Serum 1.14 mg/dL 0.50-1.40 eGFR(CKD-EPI 2020) 72 mL/min >60 February 23, 2024 09:10 AM [facility] LIVER FUNCTION SERUM Specimen Type: SERUM No comment entered. Ordering Provider: AUSTIN BALDWIN Report Released Date/Time: Dec 22, 2023 10:15 AM Reporting Lab: [address] [address] Performing Lab: [address] [address] PROTEIN,TOTAL 6.3 g/dL 6.0-8.3 ALBUMIN 3.7 g/dL 3.5-5.0 ALKALINE PHOSPHATASE 29 U/L L 40-150 AST 45 U/L H 5-34 ALT 54 U/L BILIRUBIN, TOTAL 0.3 mg/dL 0.2-1.2 February 23, 2024 09:10 AM [facility] CBC AND DIFF (AUTO) BLOOD Specimen Ty pe: BLOOD No comment entered. Ordering Provider: AUSTIN BALDWIN Report Released Date/Time: Dec 22, 2023 10:15 AM Reporting Lab: [facility] [address] [facility] [address] Performing Lab: [address] [address] WBC 9.84 10*3/uL 4.50-11.00 RBC 4.93 10*6/uL 4.23-5.66 HGB 15.0 g/dL 12.8-17 HCT 43.5 39.2-50.4 MCV 88.2 fL 82-99 MCHC 34.5 g/dL 30.8-35.1 PLT 254 10*3/uL 140-360 RDW-CV 13.0 12.0-16.0 Traverse, Abs 0.84 10*3/uL 0.30-1.10 MCH 30.4 pg 26.2-32.6 Neut % 69.6 43.7-75.8 Lymph % 18.7 14.0-42.3 Traverse % 8.5 5.1-13.7 Eos % 1.7 0.4-6.8 Baso % 0.9 0.1-2.0 Neut, Abs 6.84 10*3/uL 2.20-7.60 Lymph, Abs 1.84 10*3/uL 1.00-3.20 Eos, Abs 0.17 10*3/uL 0.03-0.44 Baso, Abs 0.09 10*3/uL 0.01-0.13 Immature Gran % 0.6 0.0-0.7 Immature Gran, Abs 0.06 10*3/uL 0.00-0.0 6 February 23, 2024 09:10 AM [facility] LIPID PANEL FASTING SERUM Specimen Ty pe: SERUM No comment entered. Ordering Provider: AUSTIN BALDWIN Report Released Date/Time: Dec 22, 2023 10:15 AM Reporting Lab: [facility] [address] [facility] [address] Performing Lab: [address] [address] CHOLESTEROL 145 mg/dL TRIGLYCERIDE 241 mg/dL H 0-150 LDL calculated 59 mg/dL 0-129 CHOL/HDL 3.8 HDL CHOLESTEROL 38 mg/dL L 40-60 February 23, 2024 09:10 AM [facility] URINALYSIS URINE S pecimen Type: URINE Comment: If Glucose = >500 and Ketones are positive, please alert the Physician. Ordering Provider: AUSTIN BALDWIN Report Released Date/Time: Dec 22, 2023 10:15 AM Reporting Lab: [address] [address] Performing Lab: [address] [address] UA COLOR Light-Yellow Yellow UA APPEARANCE Clear Clear UA GLUCOSE NEGATIVE mg/dL Negative UA KETONES NEGATIVE mg/dL Negative UA BLOOD NEGATIVE mg/dL Negative UA PROTEIN NEGATIVE mg/dL Negative UA NITRITE NEGATIVE mg/dL Negative UA BILIRUBIN NEGATIVE mg/dL Negative UA SPECIFIC GRAVITY 1.019 1.016-1.022 UA pH 6.5 5.0-9.0 UA UROBILINOGEN <2.0 mg/dL <2.0 UA LEUKOCYTE NEGATIVE Negative February 23, 2024 09:08 AM [facility] CREATININE (eGFR 2020) SERUM Specimen Type: SERUM Comment: *LIPID PANEL FASTING Not Performed: February 23, 2024@09:18 by [id number] *INKING MACHINE TENDER Reason: duplicate Ordering Provider: SWAPNIL NEWMAN Report Released Date/Time: Feb 01, 2024 01:14 PM Reporting Lab: [facility] [address] [facility] [address] Performing Lab: [address] [address] CREATININE, Serum 1.13 mg/dL 0.50-1.40 eGFR(CKD-EPI 2020) 73 mL/min >60 Vital Signs: All taken on the encounter date This section contains inpatient and outpatient Vital Signs collected on the date of the Encounter. Date/Time Temperature Pulse Blood Pressure Respiratory Rate SP02 Pain Height Weight Body Mass Index Source Mar 16, 2024 11:16 AM 97 88 155/104 18 98 240 37 [place] Mar 16, 2024 11:15 AM 168/104 [facility] [place] [place] Social History: Smoking Status (Most current) and Tobacco Use (All prior to encounter date) This section includes the most current, and the historical, smoking and tobacco- related health factors from the [facility] where the Encounter took place. Current Smoking Status This section includes the most current smoking, or tobacco-related health factor, from the [place] facility where the Encounter took place. Date/Time Current Smoking Status Comment Michela seals Dec 16, 2023 10:00 AM VA-TOBACCO USER EVERY DAY [facility] Tobacco Use History This section includes a history of the smoking, or tobacco-related health factors, that were collected on or before the date of the Encounter. The data comes from the [place] facility where the Encounter took place. 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 [facility] Dec 16, 2023 10:00 AM VA-TOBACCO USE MED NO [facility] Dec 16, 2023 10:00 AM VA-TOBACCO USE MED YES [facility] Dec 16, 2023 10:00 AM VA-TOBACCO USE WI 30 MIN OF WAKEUP [facility] Dec 16, 2023 10:00 AM VA-TOBACCO USER EVERY DAY [facility] Jan 13, 2023 02:00 PM VA-TOBACCO USE 1 T O < 5 YEARS [facility] Jan 13, 2023 02:00 PM VA-TOBACCO USE ADVICE [facility] Jan 13, 2023 02:00 PM 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 [facility] Jan 13, 2023 02:00 PM VA-TOBACCO USE MED NO [facility] Jan 13, 2023 02:00 PM VA-TOBACCO USE WI 30 MIN OF WAKEUP [facility] Jan 13, 2023 02:00 PM VA-TOBACCO USER EVERY DAY [facility] Jul 03, 2022 09:00 AM VA-TOBACCO FORMER USER [facility] Jul 03, 2022 09:00 AM VA-TOBACCO QUIT 5 TO < 15 YRS [facility] Jul 04, 2021 09:00 AM VA-TOBACCO USE > 1 5 LESS THAN 30 YEARS [facility] Jul 04, 2021 09:00 AM VA-TOBACCO USE ADVICE [facility] Jul 04, 2021 09:00 AM 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 [facility] Jul 04, 2021 09:00 AM VA-TOBACCO USE MED NO [facility] Jul 04, 2021 09:00 AM VA-TOBACCO USE WI 30 MIN OF WAKEUP [facility] Jul 04, 2021 09:00 AM VA-TOBACCO USER SOME DAYS [facility] Apr 30, 2020 10:39 AM VA-TOBACCO FORMER USER [facility] Apr 30, 2020 10:39 AM VA-TOBACCO QUIT 5 TO < 15 YRS [facility] Dec 21, 2018 03:15 PM VA-TOBACCO FORMER USER [facility] Dec 21, 2018 03:15 PM VA-TOBACCO QUIT 1 TO < 5 YRS [facility] Nov 24, 2017 09:54 AM CURRENT SMOKER cigarets [facility] Nov 24, 2017 09:54 AM V1-PT READY TO SHARAN T TOBACCO USE [facility] Mar 25, 2017 01:57 PM CURRENT SMOKER down to 10 cigarettes daily [facility] Mar 25, 2017 01:57 PM V1-PT DECLINES TOB ACCO CESSATION [facility] Mar 25, 2017 01:57 PM V1-PT READY TO SHARAN T TOBACCO USE [facility] March 04, 2017 02:38 PM CURRENT SMOKER advise stopm [facility] Jul 22, 2016 09:29 AM V1-PT NOT INTEREST ED IN QUIT TOBACCO USE [facility] Nov 21, 2015 09:21 AM CURRENT SMOKER half a pack a day [facility] Nov 21, 2015 09:21 AM V1-PT NOT INTEREST ED IN QUIT TOBACCO USE [facility] Nov 23, 2014 08:51 AM CURRENT SMOKER [facility] Nov 23, 2014 08:51 AM V1-PT READY TO SHARAN T TOBACCO USE [facility] Dec 16, 2013 02:19 PM CURRENT SMOKER 3/4 pack a day [facility] Dec 16, 2013 02:19 PM V1-PT THINKING ABO UT QUIT TOBACCO USE [facility] Advance Directives: All historical and current Section Date Range: From patient's date of to the date document was created. This section includes ALL of a patient's completed or amended [place] Advance and Rescinded Directives. The entries below indicate that a directive exists for the patient, but an actual copy is not included with this document. The data comes from all [facility]. Date Advance Directives Provider Source Dec 12, 2014 ADVANCE DIRECTIVE KATRIN GREEN Encounter Notes: All associated encounter notes This section contains the clinical notes associated to the Encounter. Date/Time Encounter Note(s) Provider Source Mar 16, 2024 11:19 AM PREVENTIVE MEDICIN E NURSING NOTE: LOCAL TITLE: CLINICAL REMINDERS/NURSING STANDARD TITLE: PREVENTIVE MEDICINE NURSING NOTE DATE OF NOTE: MAR 16, 2024@11:19 ENTRY DATE: MAR 16, 2024@11:19:10 AUTHOR: JUNE SANFORD EXP COSIGNER: URGENCY: STATUS: COMPLETED CLINICAL REMINDERS/NURSING Has ADDENDA Homelessness/Food Insecurity Screen: In the past 2 months, have you been living in stable housing that you own, rent, or stay in as part of a household? Yes - Living in stable housing. Are you worried or concerned that in the next 2 months you may NOT have stable housing that you own, rent, or stay in as part of a household? No - Not worried about housing near future The [place] reports the following: Within the past 12 months, you worried whether your food would run out before you got money to buy more. Never true Within the past 12 months, the food you bought just didn't last and you didn't have money to get more. Never true Home Telehealth ([facility]) Referral: [facility]. Td / Tdap Immunization: The patient declines to receive the recommended dose of Td/Tdap vaccine. Immunization: TD(ADULT) UNSPECIFIED FORMULATION Refusal Reason: PATIENT DECISION Patient refuses all immunization(s) in the Td group Date Documented: 03/16/24 11:19 Sexual Orientation: The patient thinks of their sexual orientation as: Straight or Heterosexual Hepatitis A Vaccine for High Risk: Patient declines/refuses Hepatitis A immunization Immunization: HEP A, UNSPECIFIED FORMULATION Refusal Reason: PATIENT DECISION Patient refuses all immunization(s) in the HepA group Date Documented: 03/16/24 11:21 The patient declines to have Hepatitis A serology done. Reason: Hepatitis B Serology/Immunization: The patient declines to have HBV serology done. Reason: The patient declines to receive the recommended dose of Hepatitis B vaccine. Immunization: HEP B, UNSPECIFIED FORMULATION Refusal Reason: PATIENT DECISION Patient refuses all immunization(s) in the HepB group Date Documented: 03/16/24 11:22 COVID-19 Immunization: Refused Moderna Monovalent COVID-19 vaccine Immunization: COVID-19 (MODERNA), MRNA, LNP-S, PF, 50 MCG/0.5 ML (AGES 12+ YEARS) Refusal Reason: PATIENT DECISION Patient refuses all immunization(s) in the COVID-19 group Date Documented: 03/16/24 11:23 HTN Assess for Elevated BP>=140/90: Patient referred to [facility] pharmacist for hypertension treatment. Comment: bp consistently high( not taking bp medications routinely?) The patient was counseled on the importance of diet and weight loss/ control in the regulation of blood pressure. The patient was counseled to reduce their weight to within 10 percent of their ideal body weight. The possible improvement in blood pressure control with even 5 to 10 pounds of weight loss was reviewed. The contribution of dietary sodium to elevated blood pressure was reviewed. The patient was counseled to have a goal sodium intake of 1500mg per day, with no more than 2300mg per day. The patient was counseled that a diet low in dietary saturated and trans fats is beneficial in lowering blood pressure. The patient was counseled that a diet rich in fresh fruits, vegetables and whole grains is beneficial in lowering blood pressure Referral to [facility] pharmacist for hypertension treatment. /karlene/ JUNE SANFORD LPN LICENSED PRACTICAL NURSE Signed: 03/16/2024 11:27 Receipt Acknowledged By: 03/16/2024 13:02 /karlene/ Swapnil Newman PharmD Clinical Pharmacy Practitioner 03/16/2024 ADDENDUM STATUS: COMPLETED [place] being managed by pharmacy for diabetes, weight loss and tobacco cessation. At next visit, will address hypertension as well. Thank you! /jaya Newman PharmD Clinical Pharmacy Practitioner Signed: 03/16/2024 13:03 JUNE SANFORD [facility] Mar 16, 2024 11:19 AM PHYSICIAN ASSISTAN T NOTE: LOCAL TITLE: PA NOTE STANDARD TITLE: PHYSICIAN HAND CHAIN MAKER NOTE DATE OF NOTE: MAR 16, 2024@11:19 ENTRY DATE: MAR 16, 2024@11:19:14 AUTHOR: AUSTIN BALDWIN COSIGNER: URGENCY: STATUS: COMPLETED S - routine eval acuity: c/o lesion L side head (shaves head) O - LABS: reviewed w/ pt FEET: no cutaneous lesions dist neuro vascu intact EYES: anicteric OU NECK: no bruits not tender and no adeno LUNGS: resp full unlabored; CTA b/l COR: RRR, no M EXT: no LLE A/P - 1) DM II - sees Pharm D - on Ozempic - diet, wt 2) HTN - on Norvasc 3) Lipids - Elevated TG; LDL WNL - on Fenofibrates - takes OTC Fish Oil 4) AK, Scalp - CON: DERM RTC NOV 24 - labs before Medication Reconciliation: Outpatient: Has the patient been taking medications as documented in the EMLR? YES: The patient has been taking medications as documented in the EMLR. Essential Medication List for Review used to complete this medication reconciliation. INCLUDED IN THIS LIST: Alphabetical list of active outpatient prescriptions dispensed from this [place] (local) and dispensed from another [place] or [facility] facility (remote) as well as inpatient orders [...] whether with a VA or non-VA provider. PAVE Foot Check: A complete foot check was completed at this encounter. VISUAL INSPECTION: Includes inspection for skin breaks, deformity, erythema, trauma, pallor on elevation, dependent rubor, nail deformities, extensive callus and pitting edema. Visual exam results: Normal Comment: nl PEDAL PULSES: Includes palpation of dorsalis and posterior tibial pulses and signs/symptoms of vascular compromise like pain, pallor, parasthesia or paralysis. Present (even if diminished) Comment: nl SENSORY CHECK: Includes 10 gram Monofilament ([place]oonah-Radha) test of sensation. Intact (Greater than or equal to 80% of sites checked) Abnormal (Less than 80% of sites checked): Intact Comment: nl LOW-RISK: LOW RISK INFORMATION PROVIDED: 1. Advised patient not to walk barefoot. 2. Explained the importance of daily foot checks for changes. 3. Stressed the importance of daily foot hygiene, including bathing and complete drying. The patient verbalized understanding and was offered a detailed handout on diabetic foot care. /karlene/ AUSTIN BALDWIN PA-C STAFF PHYSICIAN HAND CHAIN MAKER Signed: 03/16/2024 11:39 AUSTIN BALDWIN
--- OUTSIDE RECORDS SUMMARY | 2025-02-01 16:06 | XMS_ITS | Encounter Summary ---
Author Name [facility] [facility] [place] Address [address] [place] [address] Care Team Providers Care Software Support Specialist Name Role Phone AUSTIN BALDWIN Primary Care Provider Un[facility]icare [facility] e Insurance Providers: All historical [...] Relationship to Policy Lomas PATRICIO MULLIGAN-ESME R [place] SPECIAL CLASS PATRICIO ERICKSON Nov 14, 2024 PATRICIO MULLIGAN [id number] Dougie RIVERA PATIENT [facility] [address] MEDICAID MEDICAID MEDIC AID Oct 05, 2016 MEDICAI D [id number] NICOLE,A NALLELY PATIENT MEDICAID MEDICAID [facility] Oct 05, 2014 MEDICAI D [id number] Dougie RIVERA NALLELY PATIENT MEDICARE (WNR) MEDICARE (M) PART A May 05, 2018 PART A [id number] [facility] Dougie RIVERA NALLELY PATIENT MEDICARE (WNR) MEDICARE (M) PART B May 05, 2018 PART B [id number] Dougie RIVERA PATIENT Selected Encounter This section includes the information on record at [place] for the Encounter. Date/Time Encounter Type Encounter Description Reason Provider Source May 10, 2024 01:00 PM PSYTX W PT 30 MINUTES PRIMARY CARE/MEDICINE ICD-10-CM Z72.0 Tobacco use SCARLET LUGO Nancy Encounter Template Text not used by [place] Assessments - Encounter Diagnoses This section includes the primary and secondary diagnoses documented for the Encounter. Date/Time Primary/Secondary Diagnosis Diagnosis Name Provider Source May 10, 2024 01:42 PM PRIMARY Tobacco use LUCINA LUGO [facility] Plan of Treatment: Future Appointments (+ 6 months) and Future Tests (+/- 45 days) The Plan of Treatment section includes future care activities for the [facility] This section includes future appointments and future orders which are active, pending or scheduled. Future Appointments This section includes appointments that were scheduled to occur 6 months from the date of the Encounter, up to a maximum of 20 appointments. The data comes from all [place] treatment facilities. Appointment Date/Time Appointment Type Appointme nt Facility Name May 20, 2024 09:00 AM AMBULATORY - MEDICINE [facility] May 31, 2024 03:30 PM AM[facility]ULATORY [facility]IC[place] [facility] [place] [facility] Jun 14, 2024 03:30 PM AMBULATORY - MEDICINE [place] [facility] [place] [facility] Jun 23, 2024 09:00 AM AMBULATORY - MEDICINE [facility] [place] [facility] Jul 05, 2024 03:30 PM AMBULATORY - MEDICINE [facility] [place] [facility] Jul 15, 2024 11:30 AM AMBULATORY - MEDICINE [facility] Jul 25, 2024 09:30 AM AMBULATORY - MEDICINE [place] [facility] [place] [facility] Jul 25, 2024 10:00 AM AMBULATORY - MEDICINE [facility] [place] [facility] Jul 25, 2024 11:00 AM AMBULATORY - MEDICINE [facility] [place] [facility] Jul 28, 2024 09:30 AM AM[facility]ATORY - MEDICINE [facility] Jul 28, 2024 10:00 AM [facility]ATORY - MEDICINE [facility] Jul 29, 2024 03:00 PM AMBULATORY - MEDICINE [facility] [place] [facility] Aug 03, 2024 03:30 PM AMBULATORY - MEDICINE [facility] [place] [facility] Aug 05, 2024 08:30 AM AMBULATORY - MEDICINE [facility] [place] [facility] Aug 11, 2024 08:30 AM AMBULATORY - MEDICINE [facility] [place] [facility] Aug 25, 2024 09:00 AM AMBULATORY - MEDICINE [facility] [place] [facility] Sep 07, 2024 10:00 AM AMBULATORY - MEDICINE [facility] [place] [facility] Sep 07, 2024 03:00 PM AMBULATORY - MEDICINE [facility] [place] [facility] Sep 12, 2024 09:00 AM AM[facility]ULATORY - MEDICINE [facility] Sep 15, 2024 08:45 AM AMBULATORY - MEDICINE [place] [facility] [place] [facility] Social History: Smoking Status (Most current) and Tobacco Use (All prior to encounter date) This section includes the most current, and the historical, smoking and tobacco- related health factors from the [place] facility where the Encounter took place. Current Smoking Status This section includes the most current smoking, or tobacco-related health factor, from the [place] facility where the Encounter took place. Date/Time Current Smoking Status Comment Facil [facility] Dec 16, 2023 10:00 AM VA-TOBACCO USER EVERY DAY [facility] Tobacco Use History This section includes a history of the smoking, or tobacco-related health factors, that were collected on or before the date of the Encounter. The data comes from the [place] facility where the Encounter took place. Date/Time Smoking Status/Tobacco Use Comment F acility Dec 16, 2023 10:00 AM VA-TOBACCO USE > 1 5 LESS THAN 30 YEARS [facility] Dec 16, 2023 10:00 AM VA-TOBACCO USE 30 YEARS OR MORE [facility] Dec 16, 2023 10:00 AM VA-TOBACCO USE ADVICE [facility] Dec 16, 2023 10:00 AM VA-TOBACCO USE DOG RACES MANAGER NO [facility] Dec 16, 2023 10:00 AM VA-TOBACCO USE DOG RACES MANAGER YES [facility] Dec 16, 2023 10:00 AM VA-TOBACCO USE MED NO [facility] Dec 16, 2023 10:00 AM VA-TOBACCO USE MED YES [facility] Dec 16, 2023 10:00 AM VA-TOBACCO USE WI 30 MIN OF WAKEUP [facility] Dec 16, 2023 10:00 AM VA-TOBACCO USER EVERY DAY [facility] Jan 13, 2023 02:00 PM VA-TOBACCO USE 1 T O < 5 YEARS [facility] Jan 13, 2023 02:00 PM VA-TOBACCO USE ADVICE [facility] Jan 13, 2023 02:00 PM VA-TOBACCO USE DOG RACES MANAGER NO [facility] Jan 13, 2023 02:00 PM VA-TOBACCO USE MED NO [facility] Jan 13, 2023 02:00 PM VA-TOBACCO USE WI 30 MIN OF WAKEUP [facility] Jan 13, 2023 02:00 PM VA-TOBACCO USER EVERY DAY [facility] Jul 03, 2022 09:00 AM VA-TOBACCO FORMER USER [facility] Jul 03, 2022 09:00 AM VA-TOBACCO QUIT 5 TO < 15 YRS [facility] Jul 04, 2021 09:00 AM VA-TOBACCO USE > 1 5 LESS THAN 30 YEARS [facility] Jul 04, 2021 09:00 AM VA-TOBACCO USE ADVICE [facility] Jul 04, 2021 09:00 AM VA-TOBACCO USE DOG RACES MANAGER NO [facility] Jul 04, 2021 09:00 AM VA-TOBACCO USE MED [facility] Jul 04, 2021 09:00 AM VA-TOBACCO USE WI 30 MIN OF WAKEUP [facility] Jul 04, 2021 09:00 AM VA-TOBACCO USER SOME DAYS [facility] Apr 30, 2020 10:39 AM VA-TOBACCO FORMER USER [facility] Apr 30, 2020 10:39 AM VA-TOBACCO QUIT 5 TO < 15 YRS [facility] Dec 21, 2018 03:15 PM VA-TOBACCO FORMER USER [facility] Dec 21, 2018 03:15 PM VA-TOBACCO QUIT 1 TO < 5 YRS [facility] Nov 24, 2017 09:54 AM CURRENT SMOKER cigarets [facility] Nov 24, 2017 09:54 AM V1-PT READY TO SHARAN T TOBACCO USE [facility] Mar 25, 2017 01:57 PM CURRENT SMOKER down to 10 cigarettes daily [facility] Mar 25, 2017 01:57 PM V1-PT DECLINES TOB ACCO CESSATION MEDS [facility] Mar 25, 2017 01:57 PM V1-PT READY TO SHARAN T TOBACCO USE [facility] March 04, 2017 02:38 PM CURRENT SMOKER advise stopm [facility] Jul 22, 2016 09:29 AM V1-PT NOT INTEREST ED IN QUIT TOBACCO USE [facility] Nov 21, 2015 09:21 AM CURRENT SMOKER half a pack a day [facility] Nov 21, 2015 09:21 AM V1-PT NOT INTEREST ED IN QUIT TOBACCO USE [facility] Nov 23, 2014 08:51 AM CURRENT SMOKER [facility] Nov 23, 2014 08:51 AM V1-PT READY TO SHARAN T TOBACCO USE [facility] Dec 16, 2013 02:19 PM CURRENT SMOKER 3/4 pack a day [facility] Dec 16, 2013 02:19 PM V1-PT THINKING ABO UT QUIT TOBACCO USE [facility] Advance Directives: All historical and current Section Date Range: From patient's date of to the date document was created. This section includes ALL of a patient's completed or amended [place] Advance and Rescinded Directives. The entries below indicate that a directive exists for the patient, but an actual copy is not included with this document. The data comes from all [place] facilities. Date Advance Directives Provider Source Dec 12, 2014 ADVANCE DIRECTIVE KATRIN GREENEDILMA Conner Encounter Notes: All associated encounter notes This section contains the clinical notes associated to the Encounter. Date/Time Encounter Note(s) Provider Source May 10, 2024 01:43 PM ADDENDUM: LOCAL TITLE: Addendum STANDARD TITLE: ADDENDUM DATE OF NOTE: MAY 10, 2024@13:43:55 ENTRY DATE: MAY 10, 2024@13:43:56 AUTHOR: LUCINA LUGO EXP COSIGNER: URGENCY: STATUS: COMPLETED alerting amsa to rtc in chart. please send vvc link too. thank you /karlene/ Lucina Lugo, PhD Clinical Psychologist Signed: 05/10/2024 13:44 Receipt Acknowledged By: 05/10/2024 14:16 /karlene/ JERAMY MASON Advanced Shelf Stocker --- Original Document --- 05/10/24 TOBACCO CESSATION NOTE: [facility] Connect ([facility]) Standard Documentation [facility] Clinician Resources Only: E911 (Emergency Call Relay Center): [phone] [facility] Crisis Line - 988 then press #1. CWM Suicide Coordinator ? [phone], Ext. [phone]; Back-up Ext. [phone] [place] Police, [place], Dianelys ? [phone] Introduction: Visit is being conducted by [place] Video Connect. identified with 2 identifiers: [X] Full Name [X] Date of [ ] VA ID Card Emergency Plan: [place] confirmed and/or provided the following information in case of emergency or technology failure. PATIENT PHONE - PHONE NUMBER [CELLULAR] - Is patient phone number correct, if not, enter below: 's phone number: ANGELA RIVERA [address], [place], [address] 's present location and address for appointment: home [place]'s emergency contact name and phone number: chart reported that location is private and safe: Yes Informed Consent: [place] informed of the risks and benefits of Telehealth video care. has the right to refuse video services. If refuses video visit, a bind-dr-cpgy visit will be scheduled. [place] verbalized consent for this video visit: Yes provided consent for any other persons present for visit: N/A If yes, who and relationship to patient: Secure visit: Visit was locked for security and privacy:Yes Smoking Cess f/u DATE: 05/10/24 DURATION OF COUNSELIN min DX: tobacco use disorder, mod REASON FOR ENCOUNTER: attended session for smoking cessation. SUMMARY OF SESSION: Current Session focused on AARM Strategy for coping with smoking triggers, coping with high risk situations, identifying and counteracting resumption thoughts, and how to cope with a smoking slip. stated that he was cleared and doesn't have COPD. Continues to not smoke. stated he is feeling nervous in the mornings about not smoking for a few minutes. He stated he has been exercising more and then nap. 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 He did chewing tobacco for 11 years before smoking. He stated he is concentrating on not smoking. denied any issues with taking the Chantix. He has dreams but enjoys them. He feels comfortable continuing to take the chantix. INTERVENTIONS: Psychoeducation regarding AARM (avoiding, altering, replacing, and mentally coping) with triggers was discussed. Discussed smoking slips and what actions to take if this occurs. MENTAL STATUS: [place] was oriented x3, mental status was WNL. No behavioral, perceptual or thought disturbances reported or observed. No concerns. CURRENT IMPRESSION OF LETHALITY RISK / PLAN FOR RISK MANAGEMENT: No thoughts, intent or plan to harm self or others was reported. No imminent risk reported. IMPRESSIONS: is taking chanitx. He has not smoked in about 2 weeks. PLAN: 1) [place] will return on 05/31/24 at 130pm via V[facility] 2) continue chantix [employer] COACHING SKILLS Coaching or Motivational Interviewing skills used. /es/ Lucina Lugo, PhD Clinical Psychologist Signed: 05/10/2024 13:43 LUCINA LUGO [facility] May 10, 2024 01:01 PM SMOKING CESSATION NOTE: LOCAL TITLE: TOBACCO CESSATION NOTE STANDARD TITLE: SMOKING CESSATION NOTE DATE OF NOTE: MAY 10, 2024@13:01 ENTRY DATE: MAY 10, 2024@13:01:58 AUTHOR: LUCINA LUGO EXP COSIGNER: URGENCY: STATUS: COMPLETED TOBACCO CESSATION NOTE Has ADDENDA [place] [employer] Connect ([facility]) Standard Documentation [facility] Clinician Resources Only: E911 (Emergency Call Relay Center): [phone] [facility] Crisis Line - 518 then press #1. CWArnaud Suicide Coordinator ? [phone], Ext. [phone]; Back-up Ext. [phone] [place] Police, Dianelys [place] ? [phone] Introduction: Visit is being conducted by [employer]. identified with 2 identifiers: [X] Full Name [X] Date of [ ] VA ID Card Emergency Plan: confirmed and/or provided the following information in case of emergency or technology failure. PATIENT PHONE - PHONE NUMBER [CELLULAR] - Is patient phone number correct, if not, enter below: [place]'s phone number: ANGELA RIVERA [address], [place], [address] 's present location and address for appointment: home 's emergency contact name and phone number: chart reported that location is private and safe: Yes Informed Consent: informed of the risks and benefits of Telehealth video care. has the right to refuse video services. If refuses video visit, a nhkm-sl-pkdu visit will be scheduled. [place] verbalized consent for this video visit: Yes [place] provided consent for any other persons present for visit: N/A If yes, who and relationship to patient: Secure visit: Visit was locked for security and privacy:Yes Smoking Cess f/u DATE: 05/10/24 DURATION OF COUNSELIN min DX: tobacco use disorder, mod REASON FOR ENCOUNTER: attended session for smoking cessation. SUMMARY OF SESSION: Current Session focused on AARM Strategy for coping with smoking triggers, coping with high risk situations, identifying and counteracting resumption thoughts, and how to cope with a smoking slip. stated that he was cleared and doesn't have COPD. Continues to not smoke. [place] stated he is feeling nervous in the mornings about not smoking for a few minutes. He stated he has been exercising more and then nap. 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 He did chewing tobacco for 11 years before smoking. He stated he is concentrating on not smoking. [place] denied any issues with taking the Chantix. He has dreams but enjoys them. He feels comfortable continuing to take the chantix. INTERVENTIONS: Psychoeducation regarding AARM (avoiding, altering, replacing, and mentally coping) with triggers was discussed. Discussed smoking slips and what actions to take if this occurs. MENTAL STATUS: [place] was oriented x3, mental status was WNL. No behavioral, perceptual or thought disturbances reported or observed. No concerns. CURRENT IMPRESSION OF LETHALITY RISK / PLAN FOR RISK MANAGEMENT: No thoughts, intent or plan to harm self or others was reported. No imminent risk reported. IMPRESSIONS: [place] is taking chanitx. He has not smoked in about 2 weeks. PLAN: 1) will return on 05/31/24 at 130pm via VVC 2) continue chantix [employer] COACHING SKILL[employer] Coaching or Motivational Interviewing skills used. /karlene/ Lucina Lugo PhD Clinical Psychologist Signed: 05/10/2024 13:43 05/10/2024 ADDENDUM STATUS: COMPLETED alerting amsa to rtc in chart. please send vvc link too. thank you /karlene/ Lucina Lugo, PhD Clinical Psychologist Signed: 05/10/2024 13:44 Receipt Acknowledged By: * AWAITING SIGNATURE * JERAMY MASON,LUCINA TABOR
--- OUTSIDE RECORDS SUMMARY | 2025-02-01 16:06 | XMS_ITS | Encounter Summary ---
Author Name [facility] Address [address] [place] [address] Care Team Providers Care Standards Analyst Name Role Phone AUSTIN BALDWIN [facility] Providers: All historical and [...] PATRICIO ERICKSON Nov 14, 2024 PATRICIO MULLIGAN [id number] Dougie RIVERA PATIENT [facility] MEDICAID MEDICAID MEDIC AID Oct 05, 2016 MEDICAI D [id number] NICOLE,A NALLELY PATIENT MEDICAID MEDICAID [facility] Oct 05, 2014 MEDICAI D [id number] Dougie RIVERA NALLELY PATIENT MEDICARE (WNR) MEDICARE (M) PART A May 05, 2018 PART A [id number] [facility] Dougie RIVERA NALLELY PATIENT MEDICARE (WNR) MEDICARE (M) PART B May 05, 2018 PART B [id number] [facility] Dougie RIVERA PATIENT Selected Encounter This section includes the information on record at [place] for the Encounter. Date/Time Encounter Type Encounter Description Reason Provider Source Jul 28, 2024 09:30 AM OFFICE O/P EST LOW 20 MIN PRIMARY CARE/MEDICINE ICD-10-CM J20.9 Acute bronchitis, unspecified AUSTIN BALDWIN JIMNancy Encounter Template Text not used by NE Assessments - Encounter Diagnoses This section includes the primary and secondary diagnoses documented for the Encounter. Date/Time Primary/Secondary Diagnosis Diagnosis Name Provider Source Jul 28, 2024 04:14 PM PRIMARY Acute bronchitis, unspecified AUSTIN BALDWIN SHARONA Plan of Treatment: Future Appointments (+ 6 months) and Future Tests (+/- 45 days) The Plan of Treatment section includes future care activities for the patient from all [facility]. This section includes future appointments and future [...] 29, 2024 03:00 PM AMBULATORY - MEDICINE [place] [facility] [place] [facility] Aug 03, 2024 03:30 PM AMBULATORY - MEDICINE [place] [facility] [place] [facility] Aug 05, 2024 08:30 AM AMBULATORY - MEDICINE [place] [facility] [place] [facility] Aug 11, 2024 08:30 AM AMBULATORY - MEDICINE [place] [facility] [place] [facility] Aug 25, 2024 09:00 AM AMBULATORY - MEDICINE [place] [facility] [place] [facility] Sep 07, 2024 10:00 AM AMBULATORY - MEDICINE [place] [facility] [place] [facility] Sep 07, 2024 03:00 PM AMBULATORY - MEDICINE [place] [facility] [place] [facility] Sep 12, 2024 09:00 AM AM[facility]ULATORY - MEDICINE [facility] Sep 15, 2024 08:45 AM AMBULATORY - MEDICINE [place] [facility] [place] [facility] Sep 20, 2024 09:30 AM AMBULATORY - MEDICINE [facility] Sep 20, 2024 10:30 AM AMBULATORY - MEDICINE [facility] Oct 06, 2024 10:00 AM AMBULATORY - MEDICINE [place] [facility] [place] [facility] Oct 18, 2024 08:30 AM AMBULATORY - MEDICINE [facility] [place] [facility] Nov 07, 2024 01:15 PM AMBULATORY - MEDICINE [facility] [place] [facility] Nov 08, 2024 10:00 AM AMBULATORY - MEDICINE [facility] [place] [facility] Nov 15, 2024 08:30 AM AM[facility]ORY - MEDICINE [place] [place] Dec 05, 2024 02:15 PM AMBULATORY - MEDICINE [facility] [place] [facility] Dec 08, 2024 09:00 AM AMBULATORY - MEDICINE [facility] [place] [facility] Dec 19, 2024 09:30 AM AM[facility]ORY - MEDICINE [place] [place] Dec 19, 2024 10:00 AM AMBULATORY - MEDICINE [facility] Social History: Smoking Status (Most current) and Tobacco Use (All prior to encounter date) This section includes the most current, and the historical, smoking and tobacco- related health factors from the NE facility where the Encounter took place. Current Smoking Status This section includes the most current smoking, or tobacco-related health factor, from the NE facility where the Encounter took place. Date/Time Current Smoking Status Comment Facil arnel Dec 16, 2023 10:00 AM VA-TOBACCO USER EVERY DAY [place] Tobacco Use History This section includes a history of the smoking, or tobacco-related health factors, that were collected on or before the date of the Encounter. The data comes from the NE facility where the Encounter took place. Date/Time Smoking Status/Tobacco Use Comment F acility Dec 16, 2023 10:00 AM VA-TOBACCO USE > 1 5 LESS THAN 30 YEARS [place] Dec 16, 2023 10:00 AM VA-TOBACCO USE 30 YEARS OR MORE [place] Dec 16, 2023 10:00 AM VA-TOBACCO USE ADVICE [place] Dec 16, 2023 10:00 AM VA-TOBACCO USE CUSTODIAN MANAGER NO [place] Dec 16, 2023 10:00 AM VA-TOBACCO USE CUSTODIAN MANAGER YES [place] Dec 16, 2023 10:00 AM VA-TOBACCO USE MED NO [place] Dec 16, 2023 10:00 AM VA-TOBACCO USE MED YES [place] Dec 16, 2023 10:00 AM VA-TOBACCO USE WI 30 MIN OF WAKEUP [place] Dec 16, 2023 10:00 AM VA-TOBACCO USER EVERY DAY [place] Jan 13, 2023 02:00 PM VA-TOBACCO USE 1 T O < 5 YEARS [place] Jan 13, 2023 02:00 PM VA-TOBACCO USE ADVICE [place] Jan 13, 2023 02:00 PM VA-TOBACCO USE CUSTODIAN MANAGER NO [place] Jan 13, 2023 02:00 PM VA-TOBACCO USE MED NO [place] Jan 13, 2023 02:00 PM VA-TOBACCO USE WI 30 MIN OF WAKEUP [place] Jan 13, 2023 02:00 PM VA-TOBACCO USER EVERY DAY [place] Jul 03, 2022 09:00 AM VA-TOBACCO FORMER USER [place] Jul 03, 2022 09:00 AM VA-TOBACCO QUIT 5 TO < 15 YRS [place] Jul 04, 2021 09:00 AM VA-TOBACCO USE > 1 5 LESS THAN 30 YEARS [place] Jul 04, 2021 09:00 AM VA-TOBACCO USE ADVICE [place] Jul 04, 2021 09:00 AM VA-TOBACCO USE CUSTODIAN MANAGER NO [place] Jul 04, 2021 09:00 AM VA-TOBACCO USE MED NO [place] Jul 04, 2021 09:00 AM VA-TOBACCO USE WI 30 MIN OF [facility] Jul 04, 2021 09:00 AM VA-TOBACCO USER SOME DAYS [place] Apr 30, 2020 10:39 AM VA-TOBACCO FORMER USER [place] Apr 30, 2020 10:39 AM VA-TOBACCO QUIT 5 TO < 15 YRS [place] Dec 21, 2018 03:15 PM VA-TOBACCO FORMER USER [place] Dec 21, 2018 03:15 PM VA-TOBACCO QUIT 1 TO < 5 YRS [place] Nov 24, 2017 09:54 AM CURRENT SMOKER cigarets [place] Nov 24, 2017 09:54 AM V1-PT READY TO SHARAN T TOBACCO USE [place] Mar 25, 2017 01:57 PM CURRENT SMOKER down to 10 cigarettes daily [place] Mar 25, 2017 01:57 PM V1-PT DECLINES TOB ACCO CESSATION MEDS [place] Mar 25, 2017 01:57 PM V1-PT READY TO SHARAN T TOBACCO USE [place] March 04, 2017 02:38 PM CURRENT SMOKER advise stopm [place] Jul 22, 2016 09:29 AM V1-PT NOT INTEREST ED IN QUIT TOBACCO USE [place] Nov 21, 2015 09:21 AM CURRENT SMOKER half a pack a day [place] Nov 21, 2015 09:21 AM V1-PT NOT INTEREST ED IN QUIT TOBACCO USE [place] Nov 23, 2014 08:51 AM CURRENT SMOKER [facility] Nov 23, 2014 08:51 AM V1-PT READY TO SHARAN T TOBACCO USE [place] Dec 16, 2013 02:19 PM CURRENT SMOKER 3/4 pack a day [place] Dec 16, 2013 02:19 PM V1-PT THINKING ABO UT QUIT TOBACCO USE [place] Advance Directives: All historical and current Section [...] Encounter Note(s) Provider Source Jul 28, 2024 09:55 AM PHYSICIAN KENISHA Carter NOTE: LOCAL TITLE: PA NOTE STANDARD TITLE: PHYSICIAN STILL OPERATOR [place] NOTE DATE OF NOTE: JUL 28, 2024@09:55 ENTRY DATE: JUL 28, 2024@09:55:28 AUTHOR: AUSTIN BALDWIN: URGENCY: STATUS: COMPLETED S - being tx'd for acute bronchitis seen ed at [facility] on jul 28 for progressive sob x several days copd and smoking contributing factors, stopped smoking jun 28 cxr neg pneumonia; tx'd in ed w/ O2, IV abx's, discharged w/ po doxy and prednisone is better today O - LUNGS: still wheezy A/P - Acute Bronchitis, Resolving Slowly - complete course Doxy and Prednisone RTC prn any URI's Recall w/ Labs in NOV 29 Medication Reconciliation: Outpatient: Has the patient been taking medications as documented in the EMLR? YES: The patient has been taking medications as documented in the EMLR. Essential Medication List for Review used to complete this medication reconciliation. INCLUDED IN THIS LIST: Alphabetical list of active outpatient prescriptions dispensed from this [place] (local) and dispensed from another [place] or DoD facility (remote) as well as [...] next appointment, whether with a VA or non-NE provider. /karlene/ AUSTIN BALDWIN PA-C STAFF PHYSICIAN STILL OPERATOR [place] Signed: 07/28/2024 16:14 AUSTIN BALDWIN Jul 28, 2024 09:49 AM PREVENTIVE MEDICIN E NURSING NOTE: LOCAL TITLE: CLINICAL REMINDERS/NURSING STANDARD TITLE: PREVENTIVE MEDICINE NURSING NOTE DATE OF NOTE: JUL 28, 2024@09:49 ENTRY DATE: JUL 28, 2024@09:49:19 AUTHOR: JUNE SANFORD EXP COSIGNER: URGENCY: STATUS: COMPLETED Advance Directive Screen MH AD: Patient has an Advance Directive on file at this [facility]. No updates are needed at this time. The patient received education about Advance Directives and written notification of his/her rights. Home Telehealth (CCHT) Referral: Patient declines participation in CCHT Program at this time. Influenza Immunization: Deferral / Refusal Deferred due to a precaution (i.e., acute illness, etc.) Td / Tdap Immunization: Prior Td vaccination The patient may have been vaccinated in the past but written documentation of vaccination is not available today. Patient instructed to obtain a written record of the prior vaccine and bring it to the next appointment. Hepatitis A Vaccine for High Risk: Patient declines/refuses Hepatitis A immunization Immunization: HEP A, UNSPECIFIED FORMULATION Refusal Reason: PATIENT DECISION Patient refuses all immunization(s) in the HepA group Date Documented: 07/28/24 09:50 BMI>30/>24.99 High Risk: Patient declines to discuss weight management. Patient declined weight discussion. Discussed revisiting at a future visit. /karlene/ JUNE SANFORD LPN LICENSED PRACTICAL NURSE Signed: 07/28/2024 10:53 JUNE SANFORD
--- OUTSIDE RECORDS SUMMARY | 2025-02-01 16:06 | XMS_ITS | Encounter Summary ---
Author Name [facility] [place] [facility] [place] [facility] [place] Address [address] [place] [address] Care Team Providers Care Sales Development Executive Name Role Phone AUSTIN BALDWIN [facility] Insurance Providers: All historical and [...] PATRICIO ERICKSON Nov 14, 2024 PATRICIO MULLIGAN [id number] Dougie RIVERA PATIENT [facility] MEDICAID MEDICAID MEDIC AID Oct 05, 2016 MEDICAI D [id number] NICOLE,A NALLELY PATIENT MEDICAID MEDICAID [facility] STAND BEATRICE Oct 05, 2014 MEDICAI D [id number] Dougie RIVERA NALLELY PATIENT MEDICARE (WNR) MEDICARE (M) PART A May 05, 2018 PART A [id number] [facility] Dougie RIVERA NALLELY PATIENT MEDICARE (WNR) MEDICARE (M) PART B May 05, 2018 PART B [id number] [phone] Dougie RIVERA PATIENT Selected Encounter This section includes the information on record at [place] for the Encounter. Date/Time Encounter Type Encounter Description Reason Provider Source Mar 22, 2024 09:00 AM PSYTX W PT 45 MINUTES PRIMARY CARE/MEDICINE ICD-10-CM Z72.0 Tobacco use HUALOGAN IHE Encounter Template Text not used by [place] Assessments - Encounter Diagnoses This section includes the primary and secondary diagnoses documented for the Encounter. Date/Time Primary/Secondary Diagnosis Diagnosis Name Provider Source Mar 22, 2024 11:16 AM PRIMARY Tobacco use JESSE CRUZ Plan of Treatment: Future Appointments (+ 6 months) and Future Tests (+/- 45 days) The Plan of Treatment section includes future care activities for the patient [facility] This section includes future appointments and future orders which are active, pending or scheduled. Future Appointments This section includes appointments that were scheduled to occur 6 months from the date of the Encounter, up to a maximum of 20 appointments. The data comes from all [place] treatment facilities. Appointment Date/Time Appointment Type Appointme nt Facility Name Mar 24, 2024 09:00 AM [facility]ULATORY [facility] [place] [facility] Mar 31, 2024 10:00 AM AMBULATORY - NONE [facility] [place] [facility] Apr 05, 2024 10:00 AM AMBULATORY - MED[facility] Apr 05, 2024 01:30 PM AMBULATORY - MEDICINE [facility] Apr 19, 2024 10:30 AM AMBULATORY - MEDICINE [facility] [place] [facility] Apr 26, 2024 10:00 AM AMBULATORY [facility] MED[facility] Apr 27, 2024 10:30 AM AMBULATORY - MEDICINE [facility] [place] [facility] May 03, 2024 09:00 AM AMBULATORY [facility] MED[facility] May 10, 2024 01:00 PM AMBULATORY - MEDICINE [facility] [place] [facility] May 20, 2024 09:00 AM AMBULATORY [facility] MED[facility] May 31, 2024 03:30 PM AMBULATORY - MEDICINE [facility] [place] [facility] Jun 14, 2024 03:30 PM AMBULATORY - MEDICINE [facility] [place] [facility] Jun 23, 2024 09:00 AM AMBULATORY - MEDICINE [facility] [place] [facility] Jul 05, 2024 03:30 PM AMBULATORY - MEDICINE [facility] [place] [facility] Jul 15, 2024 11:30 AM AMBULATORY [facility] Jul 25, 2024 09:30 AM AMBULATORY - MEDICINE [facility] [place] [facility] Jul 25, 2024 10:00 AM AMBULATORY - MEDICINE [facility] [place] [facility] Jul 25, 2024 11:00 AM AMBULATORY - MEDICINE [facility] [place] [facility] Jul 28, 2024 09:30 AM AMBULATORY - MED[facility] Jul 28, 2024 10:00 AM AMBULATORY - MED[facility]INE [facility] Active, Pending, and Scheduled Orders This section includes a listing of several types of active, pending, and scheduled orders, including clinic medications orders, diagnostic test orders, procedure orders and consult orders; where the start date of the order is 45 days before the date of the Encounter or 45 days after the date of theEncounter. The data comes from all [place] treatment facilities. Test Date/Time Test Type Test Details Facility Name February 22, 2024 12:00 AM Laboratory - Chemi shaila Order HEMOGLOBIN A1C PANEL BLOOD (LAV-BLOOD) CAPITAL [...] Type Comment Apr 05, 2024 08:13 AM [facility] VITAMIN D (25-OH) SERUM Specimen Type: SERUM No comment entered. Ordering Provider: ALFREDO SANDERS Report Released Date/Time: Jan 19, 2024 04:58 PM Reporting Lab: [address] [address] Performing Lab: [address] [address] VITAMIN D (25-OH) 43 ng/mL 20-50 Apr 05, 2024 08:13 AM [facility] MICROALBUMIN CREATININE RATIO PANEL URINE Spe cimen Type: URINE No comment entered. Ordering Provider: ALFREDO SANDERS Report Released Date/Time: Jan 19, 2024 04:58 PM Reporting Lab: [facility] [address] [facility] [address] Performing Lab: [facility] [address] [facility] [address] MICROALBUMIN/CREATININE RATIO 70.7 mg/g H 0-29.9 MICROALBUMIN,QUANTITATIVE 11.0 mg/dL RR UNAVAIL CREATININE URINE 155.54 mg/dL Apr 05, 2024 08:13 AM [facility] FERRITIN SERUM Specimen Type: SERUM No comment entered. Ordering Provider: ALFREDO SANDERS Report Released Date/Time: Jan 19, 2024 04:58 PM Reporting Lab: [facility] [address] [facility] [address] Performing Lab: [address] [address] FERRITIN 33 ng/mL 20-300 Apr 05, 2024 08:13 AM [facility] IRON & TIBC PANEL SERUM Specimen Type: SERUM No comment entered. Ordering Provider: ALFREDO SANDERS Report Released Date/Time: Jan 19, 2024 04:58 PM Reporting Lab: [facility] [address] [facility] [address] Performing Lab: [address] [address] TIBC 494 ug/dL H 204-475 IRON 110 ug/dL 40-160 Transferrin Saturation 22.3 20.0-50.0 Apr 05, 2024 08:13 AM [facility] BASIC METABOLIC PANEL (non-fasting) SERUM Spe cimen Type: SERUM No comment entered. Ordering Provider: ALFREDO SANDERS Report Released Date/Time: Jan 19, 2024 04:58 PM Reporting Lab: [facility] [address] [facility] [address] Performing Lab: [address] [address] UREA NITROGEN 14 mg/dL 7-25 GLUCOSE 128 mg/dL H 65-100 SODIUM 138 mmol/L 135-145 POTASSIUM 4.5 mmol/L 3.5-5.0 CHLORIDE 103 mmol/L 100-110 CO2 24 meq/L 20-30 CREATININE, Serum 1.35 mg/dL 0.50-1.40 eGFR(CKD-EPI 2020) 59 mL/min L >60 Apr 05, 2024 08:13 AM [facility] CBC BLOOD Specimen Type: BLOOD No comment entered. Ordering Provider: ALFREDO SANDERS Report Released Date/Time: Jan 19, 2024 04:58 PM Reporting Lab: [facility] [address] [facility] [address] Performing Lab: [facility] [address] [facility] [address] WBC 8.57 10*3/uL 4.50-11.00 RBC 5.34 10*6/uL 4.23-5.66 HGB 16.0 g/dL 12.8-17 HCT 46.1 39.2-50.4 MCV 86.3 fL 82-99 MCHC 34.7 g/dL 30.8-35.1 PLT 278 10*3/uL 140-360 RDW-CV 12.6 12.0-16.0 MCH 30.0 pg 26.2-32.6 February 23, 2024 09:10 AM [facility] FERRITIN SERUM Sp ecimen Type: SERUM No comment entered. Ordering Provider: AUSTIN BALDWIN Report Released Date/Time: Dec 22, 2023 10:15 AM Reporting Lab: [facility] [address] [facility] [address] Performing Lab: [facility] [address] [facility] [address] FERRITIN 46 ng/mL 20-300 February 23, 2024 09:10 AM [facility] MICROALBUMIN CREATININE RATIO PANEL URINE Specimen Type: URINE No comment entered. Ordering Provider: AUSTIN BALDWIN Report Released Date/Time: Dec 22, 2023 10:15 AM Reporting Lab: [facility] [address] [facility] [address] Performing Lab: [facility] [address] [address] MICROALBUMIN/CREATININE RATIO 22.3 mg/g 0-29.9 MICROALBUMIN,QUANTITATIVE 2.5 mg/dL RR U NAVAIL CREATININE URINE 112.32 mg/dL February 23, 2024 09:10 AM [facility] URIC ACID SERUM Sp ecimen Type: SERUM No comment entered. Ordering Provider: AUSTIN BALDWIN Report Released Date/Time: Dec 22, 2023 10:15 AM Reporting Lab: [facility] [address] Performing Lab: [facility] [address] URIC ACID 4.8 mg/dL 3.5-7.2 February 23, 2024 09:10 AM [facility] HEMOGLOBIN A1C PANEL BLOOD Specimen T ype: [...] Dec 22, 2023 10:15 AM Reporting Lab: [facility] [address] Performing Lab: [facility] [address] [address] HEMOGLOBIN A1C 6.4 H 4.0-5.6 February 23, 2024 09:10 AM [facility] PSA SERUM Sp ecimen Type: SERUM No comment entered. Ordering Provider: AUSTIN BALDWIN Report Released Date/Time: Dec 22, 2023 10:15 AM Reporting Lab: [facility] [address] [address] Performing Lab: [facility] [address] [address] PSA 0.63 ng/mL 0.00-4.00 February 23, 2024 09:10 AM [facility] TSH SERUM Sp ecimen Type: SERUM No comment entered. Ordering Provider: AUSTIN BALDWIN Report Released Date/Time: Dec 22, 2023 10:15 AM Reporting Lab: [facility] [address] [facility] [address] Performing Lab: [address] [address] TSH 1.89 u[IU]/mL 0.35-5.00 February 23, 2024 09:10 AM [facility] BASIC METABOLIC PANEL (fasting) SERUM Specimen Type: SERUM No comment entered. Ordering Provider: AUSTIN BALDWIN Report Released Date/Time: Dec 22, 2023 10:15 AM Reporting Lab: [address] [address] Performing Lab: [address] [address] UREA NITROGEN 11 mg/dL 7-25 GLUCOSE 122 mg/dL H 65-100 SODIUM 140 mmol/L 135-145 POTASSIUM 4.4 mmol/L 3.5-5.0 CHLORIDE 107 mmol/L 100-110 CO2 24 meq/L 20-30 CREATININE, Serum 1.14 mg/dL 0.50-1.40 eGFR(CKD-EPI 2020) 72 mL/min >60 February 23, 2024 09:10 AM [facility] CBC AND DIFF (AUTO) BLOOD Specimen Ty pe: BLOOD No comment entered. Ordering Provider: AUSTIN BALDWIN Report Released Date/Time: Dec 22, 2023 10:15 AM Reporting Lab: [address] [address] Performing Lab: [address] [address] WBC 9.84 10*3/uL 4.50-11.00 RBC 4.93 10*6/uL 4.23-5.66 HGB 15.0 g/dL 12.8-17 HCT 43.5 39.2-50.4 MCV 88.2 fL 82-99 MCHC 34.5 g/dL 30.8-35.1 PLT 254 10*3/uL 140-360 RDW-CV 13.0 12.0-16.0 Montgomery, Abs 0.84 10*3/uL 0.30-1.10 MCH 30.4 pg 26.2-32.6 Neut % 69.6 43.7-75.8 Lymph % 18.7 14.0-42.3 Montgomery % 8.5 5.1-13.7 Eos % 1.7 0.4-6.8 Baso % 0.9 0.1-2.0 Neut, Abs 6.84 10*3/uL 2.20-7.60 Lymph, Abs 1.84 10*3/uL 1.00-3.20 Eos, Abs 0.17 10*3/uL 0.03-0.44 Baso, Abs 0.09 10*3/uL 0.01-0.13 Immature Gran % 0.6 0.0-0.7 Immature Gran, Abs 0.06 10*3/uL 0.00-0.0 6 February 23, 2024 09:10 AM [facility] LIVER FUNCTION SERUM Specimen Type: SERUM No comment entered. Ordering Provider: AUSTIN BALDWIN Report Released Date/Time: Dec 22, 2023 10:15 AM Reporting Lab: [address] [address] Performing Lab: [address] [address] PROTEIN,TOTAL 6.3 g/dL 6.0-8.3 ALBUMIN 3.7 g/dL 3.5-5.0 ALKALINE PHOSPHATASE 29 U/L L 40-150 AST 45 U/L H 5-34 ALT 54 U/L BILIRUBIN, TOTAL 0.3 mg/dL 0.2-1.2 February 23, 2024 09:10 AM [facility] URINALYSIS URINE S pecimen Type: URINE Comment: If Glucose = >500 and Ketones are positive, please alert the Physician. Ordering Provider: AUSTIN BALDWIN Report Released Date/Time: Dec 22, 2023 10:15 AM Reporting Lab: [address] [address] Performing Lab: [address] [address] UA COLOR Light-Yellow Yellow UA APPEARANCE Clear Clear UA GLUCOSE NEGATIVE mg/dL Negative UA KETONES NEGATIVE mg/dL Negative UA BLOOD NEGATIVE mg/dL Negative UA PROTEIN NEGATIVE mg/dL Negative UA NITRITE NEGATIVE mg/dL Negative UA BILIRUBIN NEGATIVE mg/dL Negative UA SPECIFIC GRAVITY 1.019 1.016-1.022 UA pH 6.5 5.0-9.0 UA UROBILINOGEN <2.0 mg/dL <2.0 UA LEUKOCYTE NEGATIVE Negative February 23, 2024 09:10 AM [facility] LIPID PANEL FASTING SERUM Specimen Ty pe: SERUM No comment entered. Ordering Provider: AUSTIN BALDWIN Report Released Date/Time: Dec 22, 2023 10:15 AM Reporting Lab: [address] [address] Performing Lab: [address] [address] CHOLESTEROL 145 mg/dL TRIGLYCERIDE 241 mg/dL H 0-150 LDL calculated 59 mg/dL 0-129 CHOL/HDL 3.8 HDL CHOLESTEROL 38 mg/dL L 40-60 February 23, 2024 09:08 AM [facility] CREATININE (eGFR 2020) SERUM Specimen Type: SERUM Comment: *LIPID PANEL FASTING Not Performed: February 23, 2024@09:18 by [id number] *CHEF SAUCIER Reason: duplicate Ordering Provider: SWAPNIL SCHOFIELD Report Released Date/Time: Feb 01, 2024 01:14 PM Reporting Lab: [address] [address] Performing Lab: [address] [address] CREATININE, Serum 1.13 mg/dL 0.50-1.40 eGFR(CKD-EPI 2020) [...] Michela seals Dec 16, 2023 10:00 AM [place]-TOBACCO USER EVERY DAY [facility] Tobacco Use History This section includes a history of the smoking, or tobacco-related health factors, that were collected on or before the date of the Encounter. The data comes from the [place] facility where the Encounter took place. Date/Time Smoking Status/Tobacco Use Comment F acility Dec 16, 2023 10:00 AM VA-TOBACCO USE > 1 5 LESS THAN 30 YEARS [facility] Dec 16, 2023 10:00 AM VA-TOBACCO USE 30 YEARS OR MORE [facility] Dec 16, 2023 10:00 AM VA-TOBACCO USE ADVICE [facility] Dec 16, 2023 10:00 AM VA-TOBACCO USE SHELTER MONITOR NO [facility] Dec 16, 2023 10:00 AM VA-TOBACCO USE SHELTER MONITOR YES [facility] Dec 16, 2023 10:00 AM VA-TOBACCO USE MED NO [facility] Dec 16, 2023 10:00 AM VA-TOBACCO USE MED YES [facility] Dec 16, 2023 10:00 AM VA-TOBACCO USE WI 30 MIN OF WAKEUP [facility] Dec 16, 2023 10:00 AM VA-TOBACCO USER EVERY DAY [facility] Jan 13, 2023 02:00 PM VA-TOBACCO USE 1 T O < 5 YEARS [facility] Jan 13, 2023 02:00 PM VA-TOBACCO USE ADVICE [facility] Jan 13, 2023 02:00 PM VA-TOBACCO USE SHELTER MONITOR NO [facility] Jan 13, 2023 02:00 PM VA-TOBACCO USE MED NO [facility] Jan 13, 2023 02:00 PM VA-TOBACCO USE WI 30 MIN OF WAKEUP [facility] Jan 13, 2023 02:00 PM VA-TOBACCO USER EVERY DAY [facility] Jul 03, 2022 09:00 AM VA-TOBACCO FORMER USER [facility] Jul 03, 2022 09:00 AM VA-TOBACCO QUIT 5 TO < 15 YRS [facility] Jul 04, 2021 09:00 AM VA-TOBACCO USE > 1 5 LESS THAN 30 YEARS [facility] Jul 04, 2021 09:00 AM VA-TOBACCO USE ADVICE [facility] Jul 04, 2021 09:00 AM VA-TOBACCO USE SHELTER MONITOR NO [facility] Jul 04, 2021 09:00 AM VA-TOBACCO USE MED NO [facility] Jul 04, 2021 09:00 AM VA-TOBACCO USE WI 30 MIN OF WAKEUP [facility] Jul 04, 2021 09:00 AM VA-TOBACCO USER SOME DAYS [facility] Apr 30, 2020 10:39 AM VA-TOBACCO FORMER USER [facility] Apr 30, 2020 10:39 AM VA-TOBACCO QUIT 5 TO < 15 YRS [facility] Dec 21, 2018 03:15 PM VA-TOBACCO FORMER USER [facility] Dec 21, 2018 03:15 PM VA-TOBACCO QUIT 1 TO < 5 YRS [facility] Nov 24, 2017 09:54 AM CURRENT SMOKER cigarets [facility] Nov 24, 2017 09:54 AM V1-PT READY TO SHARAN T TOBACCO USE [facility] Mar 25, 2017 01:57 PM CURRENT SMOKER down to 10 cigarettes daily [facility] Mar 25, 2017 01:57 PM V1-PT DECLINES TOB ACCO CESSATION MEDS [facility] Mar 25, 2017 01:57 PM V1-PT READY TO SHARAN T TOBACCO USE [facility] March 04, 2017 02:38 PM CURRENT SMOKER advise stopm [facility] Jul 22, 2016 09:29 AM V1-PT NOT INTEREST ED IN QUIT TOBACCO USE [facility] Nov 21, 2015 09:21 AM CURRENT SMOKER half a pack a day [facility] Nov 21, 2015 09:21 AM V1-PT NOT INTEREST ED IN QUIT TOBACCO USE [facility] Nov 23, 2014 08:51 AM CURRENT SMOKER [facility] Nov 23, 2014 08:51 AM V1-PT READY TO SHARAN T TOBACCO USE [facility] Dec 16, 2013 02:19 PM CURRENT SMOKER 3/4 pack a day [facility] Dec 16, 2013 02:19 PM V1-PT THINKING ABO UT QUIT TOBACCO USE [facility] Advance Directives: All historical and current Section [...] Encounter. Date/Time Encounter Note(s) Provider Source Mar 22, 2024 11:08 AM SMOKING CESSATION NOTE: LOCAL TITLE: TOBACCO CESSATION NOTE STANDARD TITLE: SMOKING CESSATION NOTE DATE OF NOTE: MAR 22, 2024@11:08 ENTRY DATE: MAR 22, 2024@11:08:51 AUTHOR: JESSE CRUZ EXP COSIGNER: LOGAN SEQUEIRA URGENCY: STATUS: COMPLETED TOBACCO CESSATION NOTE Has ADDENDA DATE: 03/22/24 DURATION OF COUNSELIN min DX: Tobacco Use Disorder, mild REASON FOR ENCOUNTER: attended the 4th session for tobacco cessation. SUMMARY OF SESSION: [facility] reported he received his prescription of Chantix and took the first dose yesterday (03/21). confirmed prescription directions and asked clarifying questions about continuing to use Chantix after quitting. Clinician discussed guidelines around using Chantix up to 11 weeks before considering refills; clinician noted these are general guidelines and encouraged [facility] to consult with his pharmacist. [facility] agreed to do so. [facility] shared he has noticed a decrease in pleasure following smoking, which he has been pleasantly surprised by. We discussed setting his quit date, which he set on 03/29. He further described pro-active problem solving for the cognitive urges or thoughts about smoking that may continue to linger following his quit date. We further reviewed his continuous use of coping techniques and plans to continue using them and his social support before and after his quit date. We also reviewed information about slips as well. INTERVENTIONS: Review of coping strategies to continue using before and after quit date, psychoeducation of slips and Chantix usage. IMPRESSIONS: Phyllis is currently motivated to quit tobacco and would likely benefit from continuing to address cognitive triggers. He verbalized agreement of this and appeared open to continuing to do so. PLAN: 1) The next session is on 04/05 at 10 am via F2F. We will follow up on Phyllis's experiences following his quit date (03/29). 2) will continue to take Chantix as prescribed. 3) will consult with his pharmacist for additional questions about Chantix use, before or during their next appointment (04/05). confirmed he has his pharmacist's contact information. SUPERVISION: This case is supervised by Derek Hammond, Ph.D., licensed psychologist. Diagnosis, treatment plan, and response to care are discussed in a standard weekly, 60 minute individual supervision meeting. Dr. Logan Sequeira is the clinical catalyst supervisor today in Dr. Hammond's absence. *Alerting [facility]: Please see RTC, thank you! /karlene/ JESSE CRUZ MA Bus Info Consultant Signed: 03/22/2024 11:23 /karlene/ Logan Sequeira PhD LP [facility] Coordinator and Staff Psychologist Cosigned: 03/22/2024 12:58 Receipt Acknowledged By: 03/24/2024 07:19 /karlene/ Derek Hammond, Clinical Psychologist 03/22/2024 15:50 /es/ Kj Wick, PharmD Clinical Pharmacist Practitioner for SWAPNIL SCHOFIELD 03/22/2024 15:18 /es/ JERAMY MASON Advanced Derrickman Helper 03/22/2024 ADDENDUM STATUS: COMPLETED I have reviewed this case and concur with the clinical impressions and recommendations made by this trainee who is under my clinical supervision. The trainee's work with this [facility] is reviewed in weekly supervision, with additional supervision available as needed daily. /es/ Logan Sequeira PhD LP [facility] Coordinator and Staff Psychologist Signed: 03/22/2024 12:58 JESSE CRUZ
--- OUTSIDE RECORDS SUMMARY | 2025-02-01 16:06 | XMS_ITS | Encounter Summary ---
Author Name [facility] [facility] [place] Address [address] [place] [address] Care Team Providers Care Assistant Case Manager Name Role Phone AUSTIN BALDWIN Primary Care [...] PATRICIO ERICKSON Nov 14, 2024 PATRICIO MULLIGAN [id number] Dougie RIVERA PATIENT [facility] MEDICAID MEDICAID MEDIC AID Oct 05, 2016 MEDICAI D [id number] NICOLE,A NALLELY PATIENT MEDICAID MEDICAID [facility] Oct 05, 2014 MEDICAI D [id number] Dougie RIVERA NALLELY PATIENT MEDICARE (WNR) MEDICARE (M) PART A May 05, 2018 PART A [id number] [facility] [phone] [id number] Dougie RIVERA NALLELY PATIENT MEDICARE (WNR) MEDICARE (M) PART B May 05, 2018 PART B [id number] Dougie RIVERA PATIENT Selected Encounter This section includes the information on record at OR for the Encounter. Date/Time Encounter Type Encounter Description Reason Provider Source Apr 26, 2024 10:00 AM PSYTX W PT 30 MINUTES PRIMARY CARE/MEDICINE ICD-10-CM Z72.0 Tobacco use DESTINEEROSASCARLET PEDERSEN Nancy Encounter Template Text not used by OR Assessments - Encounter Diagnoses This section includes the primary and secondary diagnoses documented for the Encounter. Date/Time Primary/Secondary Diagnosis Diagnosis Name Provider Source Apr 27, 2024 01:41 PM PRIMARY Tobacco use LUCINA LUGO [employer] Plan of Treatment: Future Appointments (+ 6 months) and Future Tests (+/- 45 days) The Plan of Treatment section includes future care activities for the patient from all [facility]. This section includes future appointments and future orders which are active, pending or scheduled. Future Appointments This section includes appointments that were scheduled to occur 6 months from the date of the Encounter, up to a maximum of 20 appointments. The data comes from all OR treatment facilities. Appointment Date/Time Appointment Type Appointme nt Facility Name Apr 27, 2024 10:30 AM AMBULATORY - MEDICINE [place] [facility] [place] [facility] May 03, 2024 09:00 AM AM[facility]ULATORY - MEDICINE [facility] May 10, 2024 01:00 PM AMBULATORY - MEDICINE [place] [facility] [place] [facility] May 20, 2024 09:00 AM AMBULATORY - MEDICINE [facility] May 31, 2024 03:30 PM AMBULATORY - MEDICINE [place] C [facility] [place] [facility] Jun 14, 2024 03:30 PM AMBULATORY - MEDICINE [place] C [facility] [place] [facility] Jun 23, 2024 09:00 AM AMBULATORY - MEDICINE [place] C [facility] [place] [facility] Jul 05, 2024 03:30 PM AMBULATORY - MEDICINE [place] C [facility] [place] [facility] Jul 15, 2024 11:30 AM AMBULATORY - MEDICINE [facility] Jul 25, 2024 09:30 AM AMBULATORY - MEDICINE [place] [facility] [place] [facility] Jul 25, 2024 10:00 AM AMBULATORY - MEDICINE [place] [facility] [place] [facility] Jul 25, 2024 11:00 AM AMBULATORY - MEDICINE [place] [facility] [place] [facility] Jul 28, 2024 09:30 AM AMBULATORY - MEDICINE [place] [place] Jul 28, 2024 10:00 AM AMBULATORY - MEDICINE [facility] [place] Jul 29, 2024 03:00 PM AMBULATORY - MEDICINE [place] [facility] [place] [facility] Aug 03, 2024 03:30 PM AMBULATORY - MEDICINE [place] [facility] [place] [place] [facility] Aug 05, 2024 08:30 AM AMBULATORY - MEDICINE [place] [facility] [place] [facility] Aug 11, 2024 08:30 AM AMBULATORY - MEDICINE [place] [facility] [place] [facility] Aug 25, 2024 09:00 AM AMBULATORY - MEDICINE [place] [facility] [place] [facility] Sep 07, 2024 10:00 AM AMBULATORY - MEDICINE [place] [facility] [place] [facility] Lab Results: +/- 30 days of the [...] Type Comment Apr 05, 2024 08:13 AM [facility] VITAMIN D (25-OH) SERUM Specimen Type: SERUM No comment entered. Ordering Provider: ALFREDO SANDERS Report Released Date/Time: Jan 19, 2024 04:58 PM Reporting Lab: [place] [facility]TR [facility] [place] [facility] [address] [address] Performing Lab: [facility] [place] [facility] [address] [address] VITAMIN D (25-OH) 43 ng/mL 20-50 Apr 05, 2024 08:13 AM [facility] MICROALBUMIN CREATININE RATIO PANEL URINE Spe cimen Type: URINE No comment entered. Ordering Provider: ALFREDO SANDERS Report Released Date/Time: Jan 19, 2024 04:58 PM Reporting Lab: [place] [facility] [place] [facility] [address] [address] Per[facility]: [facility] [address] [address] MICROALBUMIN/CREATININE RATIO 70.7 mg/g H 0-29.9 MICROALBUMIN,QUANTITATIVE 11.0 mg/dL RR UNAVAIL CREATININE URINE 155.54 mg/dL Apr 05, 2024 08:13 AM [facility] FERRITIN SERUM Specimen Type: SERUM No comment entered. Ordering Provider: ALFREDO SANDERS Report Released Date/Time: Jan 19, 2024 04:58 PM Reporting Lab: [address] [address] Performing Lab: [address] [address] FERRITIN 33 ng/mL 20-300 Apr 05, 2024 08:13 AM [facility] BASIC METABOLIC PANEL (non-fasting) SERUM Spe cimen Type: SERUM No comment entered. Ordering Provider: ALFREDO SANDERS Report Released Date/Time: Jan 19, 2024 04:58 PM Reporting Lab: [address] [address] Performing Lab: [address] [address] UREA NITROGEN 14 mg/dL 7-25 GLUCOSE 128 mg/dL H 65-100 SODIUM 138 mmol/L 135-145 POTASSIUM 4.5 mmol/L 3.5-5.0 CHLORIDE 103 mmol/L 100-110 CO2 24 meq/L 20-30 CREATININE, Serum 1.35 mg/dL 0.50-1.40 eGFR(CKD-EPI 2020) 59 mL/min L >60 Apr 05, 2024 08:13 AM [facility] IRON & TIBC PANEL SERUM Specimen Type: SERUM No comment entered. Ordering Provider: ALFREDO SANDERS Report Released Date/Time: Jan 19, 2024 04:58 PM Reporting Lab: [address] [address] Performing Lab: [address] [address] TIBC 494 ug/dL H 204-475 IRON 110 ug/dL 40-160 Transferrin Saturation 22.3 20.0-50.0 Apr 05, 2024 08:13 AM [facility] CBC BLOOD Specimen Type: BLOOD No comment entered. Ordering Provider: ALFREDO SANDERS Report Released Date/Time: Jan 19, 2024 04:58 PM Reporting Lab: [facility] [address] [address] Performing Lab: [facility] [address] [address] WBC 8.57 10*3/uL 4.50-11.00 RBC 5.34 10*6/uL [...] and tobacco- related health factors from the OR facility where the Encounter took place. Current Smoking Status This section includes the most current smoking, or tobacco-related health factor, from the OR facility where the Encounter took place. Date/Time Current Smoking Status Comment [facility] Dec 16, 2023 10:00 AM VA-TOBACCO USER EVERY DAY [employer] Tobacco Use History This section includes a history of the smoking, or tobacco-related health factors, that were collected on or before the date of the Encounter. The data comes from the OR facility where the Encounter took place. Date/Time Smoking Status/Tobacco Use Comment F acility Dec 16, 2023 10:00 AM VA-TOBACCO USE > 1 5 LESS THAN 30 YEARS [employer] Dec 16, 2023 10:00 AM VA-TOBACCO USE 30 YEARS OR MORE [employer] Dec 16, 2023 10:00 AM VA-TOBACCO USE ADVICE [employer] Dec 16, 2023 10:00 AM VA-TOBACCO USE PRESS CUTTER NO [employer] Dec 16, 2023 10:00 AM VA-TOBACCO USE PRESS CUTTER YES [employer] Dec 16, 2023 10:00 AM VA-TOBACCO USE MED NO [employer] Dec 16, 2023 10:00 AM VA-TOBACCO USE MED YES [employer] Dec 16, 2023 10:00 AM VA-TOBACCO USE [place] 30 MIN OF [facility] Dec 16, 2023 10:00 AM VA-TOBACCO USER EVERY DAY [employer] Jan 13, 2023 02:00 PM VA-TOBACCO USE 1 T O < 5 YEARS [employer] Jan 13, 2023 02:00 PM VA-TOBACCO USE ADVICE [employer] Jan 13, 2023 02:00 PM VA-TOBACCO USE PRESS CUTTER NO [employer] Jan 13, 2023 02:00 PM VA-TOBACCO USE MED NO [employer] Jan 13, 2023 02:00 PM VA-TOBACCO USE WI 30 MIN OF WAKEUP [employer] Jan 13, 2023 02:00 PM VA-TOBACCO USER EVERY DAY [employer] Jul 03, 2022 09:00 AM VA-TOBACCO FORMER USER [employer] Jul 03, 2022 09:00 AM VA-TOBACCO QUIT 5 TO < 15 YRS [employer] Jul 04, 2021 09:00 AM VA-TOBACCO USE > 1 5 LESS THAN 30 YEARS [employer] Jul 04, 2021 09:00 AM VA-TOBACCO USE ADVICE [employer] Jul 04, 2021 09:00 AM VA-TOBACCO USE PRESS CUTTER NO [employer] Jul 04, 2021 09:00 AM VA-TOBACCO USE MED NO [employer] Jul 04, 2021 09:00 AM VA-TOBACCO USE [place] 30 MIN OF [facility] Jul 04, 2021 09:00 AM VA-TOBACCO USER SOME DAYS [employer] Apr 30, 2020 10:39 AM VA-TOBACCO FORMER USER [employer] Apr 30, 2020 10:39 AM VA-TOBACCO QUIT 5 TO < 15 YRS [employer] Dec 21, 2018 03:15 PM VA-TOBACCO FORMER USER [employer] Dec 21, 2018 03:15 PM VA-TOBACCO QUIT 1 TO < 5 YRS [employer] Nov 24, 2017 09:54 AM CURRENT SMOKER cigarets [employer] Nov 24, 2017 09:54 AM V1-PT READY TO SHARAN T TOBACCO USE [employer] Mar 25, 2017 01:57 PM CURRENT SMOKER down to 10 cigarettes daily [employer] Mar 25, 2017 01:57 PM V1-PT DECLINES TOB ACCO CESSATION MEDS [employer] Mar 25, 2017 01:57 PM V1-PT READY TO SHARAN T TOBACCO USE [employer] March 04, 2017 02:38 PM CURRENT SMOKER advise stopm [employer] Jul 22, 2016 09:29 AM V1-PT NOT INTEREST ED IN QUIT TOBACCO USE [employer] Nov 21, 2015 09:21 AM CURRENT SMOKER half a pack a day [employer] Nov 21, 2015 09:21 AM V1-PT NOT INTEREST ED IN QUIT TOBACCO USE [employer] Nov 23, 2014 08:51 AM CUR[facility] Nov 23, 2014 08:51 AM V1-PT READY TO SHARAN T TOBACCO USE [employer] Dec 16, 2013 02:19 PM CURRENT SMOKER 3/4 pack a day [employer] Dec 16, 2013 02:19 PM V1-PT THINKING ABO UT QUIT TOBACCO USE [employer] Advance Directives: All historical and current Section [...] Encounter. Date/Time Encounter Note(s) Provider Source Apr 27, 2024 01:53 PM ADDENDUM: LOCAL TITLE: Addendum STANDARD TITLE: ADDENDUM DATE OF NOTE: APR 27, 2024@13:53:05 ENTRY DATE: APR 27, 2024@13:53:07 AUTHOR: LUCINA LUGO EXP COSIGNER: URGENCY: STATUS: COMPLETED alerting amsa to rtc in chart. please send vvc link too /karlene/ Lucina Lugo, PhD Clinical Psychologist Signed: 04/27/2024 13:53 Receipt Acknowledged By: 04/29/2024 09:38 /karlene/ JERAMY MASON Advanced Hat Mender --- Original Document --- 04/26/24 TOBACCO CESSATION NOTE: Smoking Cess f/u DATE: 04/26/24 DURATION OF COUNSELIN min DX: tobacco use disorder, mod REASON FOR ENCOUNTER: attended session for smoking cessation. SUMMARY OF SESSION: Current Session focused on AARM Strategy for coping with smoking triggers, coping with high risk situations, identifying and counteracting resumption thoughts, and how to cope with a smoking slip. [place] stated that he did not quit smoking on 04/15 and instead moved his quit date to 04/28. He discussed being worried to quit smoking as smoking is so intertwined with his life. [place] noted that he boredon is a trigger as well he smokes as a reward for something and in between things. [place] denied any issues with taking the Chantix. INTERVENTIONS: Psychoeducation regarding AARM (avoiding, altering, replacing, [...] was reported. No imminent risk reported. IMPRESSIONS: Phyllis is taking chanitx. He is struggling with not smoking. New quit date is 04/28. PLAN: 1) [place] will return 1pm via [facility] COACHING SKILLS Coaching or Motivational Interviewing skills used. /karlene/ Lucina Lugo, PhD Clinical Psychologist Signed: 04/27/2024 13:41 LUCINA LUGO Apr 26, 2024 09:46 AM SMOKING CESSATION NOTE: LOCAL TITLE: TOBACCO CESSATION NOTE STANDARD TITLE: SMOKING CESSATION NOTE DATE OF NOTE: APR 26, 2024@09:46 ENTRY DATE: APR 26, 2024@09:47:05 AUTHOR: LUCINA LUGO EXP COSIGNER: URGENCY: STATUS: COMPLETED TOBACCO CESSATION NOTE Has ADDENDA Smoking Cess f/u DATE: 04/26/24 DURATION OF COUNSELIN min DX: tobacco use disorder, mod REASON FOR ENCOUNTER: [place] attended session for smoking cessation. SUMMARY OF SESSION: Current Session focused on AARM Strategy for coping with smoking triggers, coping with high risk situations, identifying and counteracting resumption thoughts, and how to cope with a smoking slip. stated that he did not quit smoking on 04/15 and instead moved his quit date to 04/28. He discussed being worried to quit smoking as smoking is so intertwined with his life. noted that he boredon is a trigger as well he smokes as a reward for something and in between things. [place] denied any issues with taking the Chantix. INTERVENTIONS: Psychoeducation regarding AARM (avoiding, altering, replacing, [...] was reported. No imminent risk reported. IMPRESSIONS: [place] is taking chanitx. He is struggling with not smoking. New quit date is 04/28. PLAN: 1) [place] will return 1pm via [facility] CO[employer]ILL[employer] Coaching or Motivational Interviewing skills used. /es/ Lucina Lugo, PhD Clinical Psychologist Signed: 04/27/2024 13:41 04/27/2024 ADDENDUM STATUS: COMPLETED alerting amsa to rtc in chart. please send c link too /es/ Lucina Lugo, PhD Clinical Psychologist Signed: 04/27/2024 13:53 Receipt Acknowledged By: * AWAITING SIGNATURE * JERAMY MASON,LUCINA TABOR
--- OUTSIDE RECORDS SUMMARY | 2025-02-01 16:06 | XMS_ITS | Encounter Summary ---
Author Name [facility] [facility] [place] Address [address] [place] [address] Care Team Providers Care Senior Quality Analyst Name Role Phone AUSTIN BALDWIN Primary [...] PATRICIO ERICKSON Nov 14, 2024 PATRICIO MULLIGAN [id number] Dougie RIVERA PATIENT [facility] MEDICAID MEDICAID MEDIC AID Oct 05, 2016 MEDICAI D [id number] NICOLE,A NALLELY PATIENT MEDICAID MEDICAID [facility] Oct 05, 2014 MEDICAI D [id number] Dougie RIVERA NALLELY PATIENT MEDICARE (WNR) MEDICARE (M) PART A May 05, 2018 PART A [id number] [facility] Dougie RIVERA NALLELY PATIENT MEDICARE (WNR) MEDICARE (M) PART B May 05, 2018 PART B [id number] [facility] Dougie RIVERA PATIENT Selected Encounter This section includes the information on record at [place] for the Encounter. Date/Time Encounter Type Encounter Description Reason Provider Source May 03, 2024 09:00 AM OFFICE O/P EST LOW 20 MIN PODIATRY ICD-10-CM L60.0 Ingrowing nail OLIMPIA BRIGHT [facility] Encounter Template Text not used by [place] Assessments - Encounter Diagnoses This section includes the primary and secondary diagnoses documented for the Encounter. Date/Time Primary/Secondary Diagnosis Diagnosis Name Provider Source May 03, 2024 09:22 AM PRIMARY Ingrowing nail OLIMPIA BRIGHT [facility] May 03, 2024 09:22 AM SECONDARY Pain in left toe(s) KAILAOLIMPAI Jaramillo SHARONA May 03, 2024 09:22 AM SECONDARY Pain in right toe(s) OLIMPIA BRIGHT [facility] May 03, 2024 09:22 AM SECONDARY Type 2 diabetes w diabetic peripheral angiopath w/o gangrene OLIMPIA BRIGHT Ella SHARONA Plan of Treatment: Future Appointments (+ 6 months) and Future Tests (+/- 45 days) The Plan of Treatment section includes future care activities for the [facility] [place] [facility] This section includes future appointments and future orders which are active, pending or scheduled. Future Appointments This section includes appointments that were scheduled to occur 6 months from the date of the Encounter, up to a maximum of 20 appointments. The data comes from all [place] treatment facilities. Appointment Date/Time Appointment Type Appointme nt Facility Name May 10, 2024 01:00 PM AMBULATORY - MEDICINE [place] [facility] [place] [facility] May 20, 2024 09:00 AM AMBULATORY - MEDICINE [facility] May 31, 2024 03:30 PM AMBULATORY - MEDICINE [place] [facility] [place] [facility] Jun 14, 2024 03:30 PM AMBULATORY - MEDICINE [place] [facility] [place] [facility] Jun 23, 2024 09:00 AM AMBULATORY - MEDICINE [place] [facility] [place] [facility] Jul 05, 2024 03:30 PM AMBULATORY - MEDICINE [place] [facility] [place] [facility] Jul 15, 2024 11:30 AM [facility] Jul 25, 2024 09:30 AM AMBULATORY - MEDICINE [place] [facility] [place] [facility] Jul 25, 2024 10:00 AM AMBULATORY - MEDICINE [place] [facility] [place] [facility] Jul 25, 2024 11:00 AM AMBULATORY - MEDICINE [place] [facility] [place] [facility] Jul 28, 2024 09:30 AM [place] [place] Jul 28, 2024 10:00 AM [facility]ORY [place]IC[place] [place] Jul 29, 2024 03:00 PM AMBULATORY - MEDICINE [place] [facility] [place] [facility] Aug 03, 2024 03:30 PM AMBULATORY - MEDICINE [place] [facility] [place] [facility] Aug 05, 2024 08:30 AM AMBULATORY - MEDICINE [place] [facility] [place] [facility] Aug 11, 2024 08:30 AM AMBULATORY - MEDICINE [place] [facility] [place] [facility] Aug 25, 2024 09:00 AM AMBULATORY - MEDICINE [place] [facility] [place] [facility] Sep 07, 2024 10:00 AM AMBULATORY - MEDICINE [place] [facility] [place] [facility] Sep 07, 2024 03:00 PM AMBULATORY - MEDICINE [place] [facility] [place] [facility] Sep 12, 2024 09:00 AM [facility] Results: +/- 30 days of the [...] Type Comment Apr 05, 2024 08:13 AM [place] [facility] [place] [facility] VITAMIN D (25-OH) SERUM Specimen Type: SERUM No comment entered. Ordering Provider: ALFREDO SANDERS Report Released Date/Time: Jan 19, 2024 04:58 PM Reporting Lab: [place] [facility] [place] [address] [address] Performing Lab: [place] [facility] [place] [address] [address] VITAMIN D (25-OH) 43 ng/mL 20-50 Apr 05, 2024 08:13 AM [place] [facility] [place] [facility] FERRITIN SERUM Specimen Type: SERUM No comment entered. Ordering Provider: ALFREDO SANDERS Report Released Date/Time: Jan 19, 2024 04:58 PM Reporting Lab: [facility] [address] [address] Performing Lab: [address] [address] FERRITIN 33 ng/mL 20-300 Apr 05, 2024 08:13 AM [facility] BASIC METABOLIC PANEL (non-fasting) SERUM Spe cimen Type: SERUM No comment entered. Ordering Provider: ALFREDO SANDERS Report Released Date/Time: Jan 19, 2024 04:58 PM Reporting Lab: [facility] [address] [facility] [address] Performing Lab: [address] [address] UREA NITROGEN 14 mg/dL 7-25 GLUCOSE 128 mg/dL H 65-100 SODIUM 138 mmol/L 135-145 POTASSIUM 4.5 mmol/L 3.5-5.0 CHLORIDE 103 mmol/L 100-110 CO2 24 meq/L 20-30 CREATININE, Serum 1.35 mg/dL 0.50-1.40 eGFR(CKD-EPI 2020) 59 mL/min L >60 Apr 05, 2024 08:13 AM [facility] MICROALBUMIN CREATININE RATIO PANEL URINE Spe cimen Type: URINE No comment entered. Ordering Provider: ALFREDO SANDERS Report Released Date/Time: Jan 19, 2024 04:58 PM Reporting Lab: [address] [address] Performing Lab: [facility] [address] [facility] [address] MICROALBUMIN/CREATININE RATIO 70.7 mg/g H 0-29.9 MICROALBUMIN,QUANTITATIVE 11.0 mg/dL RR UNAVAIL CREATININE URINE 155.54 mg/dL Apr 05, 2024 08:13 AM [facility] IRON & TIBC PANEL SERUM Specimen Type: SERUM No comment entered. Ordering Provider: ALFREDO SANDERS Report Released Date/Time: Jan 19, 2024 04:58 PM Reporting Lab: [address] [address] Performing Lab: [facility] [address] [address] [address] TIBC 494 ug/dL H 204-475 IRON 110 ug/dL 40-160 Transferrin Saturation 22.3 20.0-50.0 Apr 05, 2024 08:13 AM [facility] CBC BLOOD Specimen Type: BLOOD No comment entered. Ordering Provider: ALFREDO SANDERS Report Released Date/Time: Jan 19, 2024 04:58 PM Reporting Lab: [facility] [address] [facility] [address] Performing Lab: [facility] [address] [facility] [address] WBC 8.57 10*3/uL 4.50-11.00 RBC 5.34 10*6/uL [...] 2023 10:00 AM VA-TOBACCO USER EVERY DAY [facility] Tobacco Use History This section includes a history of the smoking, or tobacco-related health factors, that were collected on or before the date of the Encounter. The data comes from the [place] facility where the Encounter took place. Date/Time Smoking Status/Tobacco Use Comment F acility Dec 16, 2023 10:00 AM VA-TOBACCO USE > 1 5 LESS THAN 30 YEARS [facility] Dec 16, 2023 10:00 AM VA-TOBACCO USE 30 YEARS OR MORE [facility] Dec 16, 2023 10:00 AM VA-TOBACCO USE ADVICE [facility] 13, 2024 10:00 AM VA-TOBACCO USE STAMPING MILL TENDER NO [facility] Dec 16, 2023 10:00 AM VA-TOBACCO USE STAMPING MILL TENDER YES [facility] Dec 16, 2023 10:00 AM VA-TOBACCO USE MED NO [facility] Dec 16, 2023 10:00 AM VA-TOBACCO USE MED YES [facility] Dec 16, 2023 10:00 AM VA-TOBACCO USE WI 30 MIN OF WAKEUP [facility] Dec 16, 2023 10:00 AM VA-TOBACCO USER EVERY DAY [facility] Jan 13, 2023 02:00 PM VA-TOBACCO USE 1 T O < 5 YEARS [facility] Jan 13, 2023 02:00 PM VA-TOBACCO USE ADVICE [facility] Jan 13, 2023 02:00 PM VA-TOBACCO USE STAMPING MILL TENDER NO [place] Jan 13, 2023 02:00 PM VA-TOBACCO USE MED NO [facility] Jan 13, 2023 02:00 PM VA-TOBACCO USE WI 30 MIN OF WAKEUP [facility] Jan 13, 2023 02:00 PM VA-TOBACCO USER EVERY DAY [facility] Jul 03, 2022 09:00 AM VA-TOBACCO FORMER USER [facility] Jul 03, 2022 09:00 AM VA-TOBACCO QUIT 5 TO < 15 YRS [facility] Jul 04, 2021 09:00 AM VA-TOBACCO USE > 1 5 LESS THAN 30 YEARS [facility] Jul 04, 2021 09:00 AM VA-TOBACCO USE ADVICE [facility] Jul 04, 2021 09:00 AM VA-TOBACCO USE STAMPING MILL TENDER NO [facility] Jul 04, 2021 09:00 AM VA-TOBACCO USE MED NO [facility] Jul 04, 2021 09:00 AM VA-TOBACCO USE WI 30 MIN OF WAKEUP [facility] 30, 2021 09:00 AM VA-TOBACCO USER SOME DAYS [facility] Apr 30, 2020 10:39 AM VA-TOBACCO FORMER USER [facility] Apr 30, 2020 10:39 AM VA-TOBACCO QUIT 5 TO < 15 YRS [facility] Dec 21, 2018 03:15 PM VA-TOBACCO FORMER USER [facility] Dec 21, 2018 03:15 PM VA-TOBACCO QUIT 1 TO < 5 YRS [facility] Nov 24, 2017 09:54 AM CURRENT SMOKER cigarets [facility] Nov 24, 2017 09:54 AM V1-PT READY TO SHARAN T TOBACCO USE [facility] Mar 25, 2017 01:57 PM CURRENT SMOKER down to 10 cigarettes daily [facility] Mar 25, 2017 01:57 PM V1-PT DECLINES TOB ACCO CESSATION MEDS [facility] Mar 25, 2017 01:57 PM V1-PT READY TO SHARAN T TOBACCO USE [facility] March 04, 2017 02:38 PM CURRENT SMOKER advise stopm [facility] Jul 22, 2016 09:29 AM V1-PT NOT INTEREST ED IN QUIT TOBACCO USE [facility] Nov 21, 2015 09:21 AM CURRENT SMOKER half a pack a day [facility] Nov 21, 2015 09:21 AM V1-PT NOT INTEREST ED IN QUIT TOBACCO USE [place] [facility] Nov 23, 2014 08:51 AM CURRENT SMOKER [facility] Nov 23, 2014 08:51 AM V1-PT READY TO SHARAN T TOBACCO USE [facility] Dec 16, 2013 02:19 PM CURRENT SMOKER 3/4 pack a day [facility] Dec 16, 2013 02:19 PM V1-PT THINKING ABO UT QUIT TOBACCO USE [place] Advance Directives: All historical and current Section [...] Encounter. Date/Time Encounter Note(s) Provider Source May 03, 2024 07:27 AM PODIATRY NOTE: LOCAL TITLE: PODIATRY NOTE STANDARD TITLE: PODIATRY NOTE DATE OF NOTE: MAY 03, 2024@07:27 ENTRY DATE: MAY 03, 2024@07:27:17 AUTHOR: OLIMPIA BRIGHT COSIGNER: URGENCY: STATUS: COMPLETED NOTE: HAS RECEIVED BOTH COVID VACCINE DOSES + 2 BOOSTERS AT [facility] *LAST SEEN FOR TREATMENT: 01/26/2024 S: Pt. is a 63 yo alert WDWN CAUC MALE who presents for CONTINUED podiatric examination & CARE for treatment of a presenting complaint of painful ingrown toenails. Patient has TYPE II DM & is at risk of injury with self or other non- professional care. Patient has been referred by: EDWIGE [...] N/A TO THE CC . *NOTE: A1C= 6.4 (LAST TAKEN: 02/2024) FBS= DNP RISK =1 HEIGHT:218 lb [98.88 [...] need of attention. The affected nails are 1-2-1-4-5bilat. There are no superficial painful hyperkeratotic lesions [...] present physical-medical status. Protective sensation utilizing a BIOMECHANICAL: Exam is deferred at this time [...] REVIEWED AT HOME (FOOT CARE TIPS). 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 Outpatient: Has the patient been taking medications as documented in the EMLR? YES: The patient has been taking medications as documented in the EMLR. Essential Medication List for Review used to complete this medication reconciliation. INCLUDED IN THIS LIST: Alphabetical list of active outpatient prescriptions dispensed from this [facility] (local) and dispensed from another [place] or [facility]D facility (remote) as well as [...] JLV. Allergies/ADRs (Tool #5) FACILITY ALLERGY/ADR -------- [place] [facility] [place] [facility] CODEINE [facility] [place] [facility] OXYCODONE [facility] OXYCODONE [facility] (Tool #1) INCLUDED IN THIS LIST: Alphabetical list of active outpatient prescriptions dispensed from this [place] (local) and dispensed from another [place] or [facility] facility (remote) as well as inpatient orders [...] the patient into personal health records (i.e. sezmi) are NOT included in this list. Non-VA medications documented outside this [place], remote inpatient orders (regardless of status) and remote clinic medications are NOT included in this list. The patient and provider must always discuss medications the patient is taking, regardless of where the medication was dispensed or obtained. OUTPT ALBUTEROL 90G (CFC-F) 200D ORAL INHL (Status = Active) INHALE 1 PUFF BY MOUTH FOUR TIMES DAILY NEEDED FOR BRONCHOSPASM Rx# [id number] Last Released: 12/21/23 Qty/Days Supply: 11/03 Rx Expiration Date: 11/04/24 Refills Remainin Indication: FOR BRONCHOSPASM OUTPT AMLODIPINE BESYLATE 5MG TAB (Status = Active) TAKE ONE TABLET BY MOUTH ONCE DAILY FOR BLOOD PRESSURE/HEART, DO NOT TAKE WITH GRAPEFRUIT JUICE Rx# [id number] Last Released: 12/17/23 Qty/Days Supply: Rx Expiration Date: 12/16/24 Refills Remainin Indication: FOR HIGH BLOOD PRESSURE [...] ONCE DAILY FOR VITAMIN D DEFICIENCY Rx# [id number] Last Released: 04/01/24 Qty/Days Supply: Rx Expiration Date: 01/05/25 Refills Remainin Indication: FOR VITAMIN D DEFICIENCY Non-VA CLONAZEPAM 1MG TAB TAKE ONE TABLET BY MOUTH TWICE DAILY Medication prescribed by Non-VA provider. or tid OUTPT FENOFIBRATE 145MG TAB (Status = Discontinued) TAKE ONE TABLET BY MOUTH ONCE DAILY Rx# [id number] Last Released: 02/23/24 Qty/Days Supply: Rx Expiration Date: 11/13/24 Refills Remainin Indication: FOR HIGH CHOLESTEROL OUTPT FENOFIBRATE 145MG TAB (Status = Active) TAKE ONE TABLET BY MOUTH ONCE DAILY Rx# [id number] Last Released: Qty/Days Supply: Rx Expiration Date: 03/17/25 Refills Remainin Indication: FOR HIGH CHOLESTEROL Non-VA HYDROXYZINE HCL 25MG TAB TAKE ONE TABLET BY MOUTH ONCE DAILY Non-VA OLANZAPINE 5MG TAB TAKE ONE TABLET BY MOUTH TWICE DAILY Non-VA medication not recommended by VA provider. OUTPT OMEPRAZOLE 20MG EC CAP (Status = Discontinued) TAKE ONE CAPSULE BY MOUTH TWICE DAILY FOR EXCESSIVE PRODUCTION OF STOMACH ACID Rx# [id number] Last Released: 11/03/23 Qty/Days Supply: Rx Expiration Date: 05/13/24 Refills Remainin Indication: FOR EXCESSIVE PRODUCTION OF STOMACH ACID OUTPT OMEPRAZOLE 20MG EC CAP (Status = Active) TAKE ONE CAPSULE BY MOUTH TWICE DAILY FOR EXCESSIVE PRODUCTION OF STOMACH ACID Rx# [id number] Last Released: 03/19/24 Qty/Days Supply: Rx Expiration Date: 03/17/25 Refills Remainin Indication: FOR EXCESSIVE PRODUCTION OF STOMACH ACID Non-VA ONDANSETRON HCL 4MG TAB TAKE ONE TABLET BY MOUTH DIRECVTED Medication prescribed by Non-VA provider. when has panic attacks OUTPT SEMAGLUTIDE 0.25MG/0.375ML INJ PEN 3ML (Status = Discontinued) INJECT 0.25MG SUBCUTANEOUSLY ONCE A WEEK FOR TYPE 2 DIABETES MELLITUS Rx# [id number] Last Released: 03/08/24 Qty/Days Supply: 11/01 Rx Expiration Date: 04/07/24 Refills Remainin Indication: FOR TYPE 2 DIABETES MELLITUS OUTPT SEMAGLUTIDE 0.25MG/0.375ML INJ PEN 3ML (Status = Active) INJECT 0.5MG SUBCUTANEOUSLY ONCE A WEEK FOR TYPE 2 DIABETES MELLITUS Rx# [id number] Last Released: 04/12/24 Qty/Days Supply: 11/01 Rx Expiration Date: 04/06/25 Refills Remainin Indication: FOR TYPE 2 DIABETES MELLITUS OUTPT SILDENAFIL CITRATE 100MG TAB (Status = ) TAKE ONE TABLET BY MOUTH DIRECTED TAKE 1 HOUR PRIOR TO SEXUAL ACTIVITY Rx# [id number] Last Released: 04/20/23 Qty/Days Supply: 04/03 Rx Expiration Date: 04/20/24 Refills Remainin Non-VA TRAZODONE HCL 100MG TAB TAKE ONE-HALF TABLET BY MOUTH AT BEDTIME OUTPT VARENICLINE 0.5MG TAB (Status = Discontinued) TAKE ONE TABLET BY MOUTH ONCE DAILY FOR 3 DAYS, THEN TAKE ONE TABLET TWICE DAILY FOR 4 DAYS, THEN TAKE TWO TABLETS TWICE DAILY Rx# [id number] Last Released: 03/17/24 Qty/Days Supply: Rx Expiration Date: 04/15/24 Refills Remainin Indication: FOR SMOKING CESSATION OUTPT VARENICLINE 1MG TAB (Status = Active) TAKE ONE TABLET BY MOUTH TWICE DAILY FOR SMOKING CESSATION Rx# [id number] Last Released: 04/06/24 Qty/Days Supply: 60/30 Rx Expiration Date: 05/05/24 Refills Remainin Indication: FOR SMOKING CESSATION Non-VA VENLAFAXINE HCL 150MG 24HR SA CAP TAKE 1 CAPSULE BY MOUTH ONCE DAILY Non-VA medication not recommended by VA provider. SUPPLIES OUTPT ACCU-CHEK GUIDE (GLUCOSE) TEST STRIP (Status = Active) USE 1 STRIP TO TEST BLOOD SUGARS DIRECTED Rx# [id number] Last Released: 02/18/24 Qty/Days Supply: 50/180 Rx Expiration Date: 11/04/24 Refills Remainin OUTPT ALCOHOL PREP PAD (Status = ) USE 1 PAD TOPICALLY ONCE DAILY TO CLEAN SKIN FOR INJECTION ETC Rx# [id number] Last Released: 03/12/23 Qty/Days Supply: 400/90 Rx Expiration Date: 03/09/24 Refills Remainin OUTPT LANCET,SOFTCLIX (Status = ) USE 1 LANCET DIRECTED ONCE DAILY NEEDED TO TEST BLOOD SUGAR Rx# [id number] Last Released: 04/21/23 Qty/Days Supply: 100/90 Rx Expiration Date: 04/17/24 Refills Remainin /karlene/ OLIMPIA BRIGHT DPM MULTI DISCIPLINED LANGUAGE ANALYST Signed: 05/03/2024 09:23 OLIMPIA BRIGHT [place]
--- OUTSIDE RECORDS SUMMARY | 2025-02-01 16:06 | XMS_ITS | Encounter Summary ---
Author Name [place] Address [address] [place] [address] Care Team Providers Care Certified Medical Coding Specialist Name Role Phone AUSTIN BALDWIN Primary Care Provider [facility] Insurance Providers: All historical and [...] Relationship to Policy Lomas PATRICIO MULLIGAN-WN R [place] SPECIAL CLASS PATRICIO ERICKSON Nov 14, 2024 PATRICIO MULLIGAN [id number] Dougie RIVERA PATIENT [facility] MEDICAID MEDICAID MEDIC AID Oct 05, 2016 MEDICAI D [id number] NICOLE,A NALLELY PATIENT MEDICAID MEDICAID [facility] STAND BEATRICE Oct 05, 2014 MEDICAI D [id number] Dougie RIVERA NALLELY PATIENT MEDICARE (WNR) MEDICARE (M) PART A May 05, 2018 PART A [id number] [facility] Dougie RIVERA NALLELY PATIENT MEDICARE (WNR) MEDICARE (M) PART B May 05, 2018 PART B [id number] [facility] Dougie RIVERA PATIENT Selected Encounter This section includes the information on record at [place] for the Encounter. Date/Time Encounter Type Encounter Description Reason Provider Source Nov 15, 2024 08:30 AM OFFICE O/P EST MOD 30 MIN PRIMARY CARE/MEDICINE ICD-10-CM E11.9 Type 2 diabetes mellitus without complications AUSTIN BALDWIN Encounter Template Text not used by [place] Assessments - Encounter Diagnoses This section includes [...] care activities for the patient from all [place] treatmentfacilities. This section includes future appointments and future orders which are active, pending or scheduled. Future Appointments This section includes appointments that were scheduled to occur 6 months from the date of the Encounter, up to a maximum of 20 appointments. The data comes from all [place] treatment facilities. Appointment Date/Time Appointment Type Appointme nt Facility Name Dec 05, 2024 02:15 PM [place] [facility] [place] [facility] Dec 08, 2024 09:00 AM [place] [facility] [place] [facility] Dec 19, 2024 09:30 AM [facility] Dec 19, 2024 10:00 AM [facility]ORY - MEDICINE [facility] Dec 28, 2024 03:00 PM [place]ULATORY [place]ICINE [place] [facility] [place] [facility] Jan 09, 2025 01:30 PM [place] [facility] [place] [facility] Jan 12, 2025 09:00 AM [facility]ORY [facility] MEDICINE [facility] Jan 26, 2025 09:30 AM [place] [facility] [place] [facility] February 08, 2025 01:00 PM AMBULATORY - MEDICINE [place] [facility] [place] [facility] February 13, 2025 01:00 PM [facility]ORY - MEDICINE [facility] Mar 14, 2025 08:30 AM [place] [facility] [place] [facility] Mar 14, 2025 09:00 AM [place]ORY [place]INE [place] [facility] Active, Pending, and Scheduled Orders This section includes a listing of several types of active, pending, and scheduled orders, including clinic medications orders, diagnostic test orders, procedure orders and consult orders; where the start date of the order is 45 days before the date of the Encounter or 45 days after the date of theEncounter. The data comes from all [place] treatment facilities. Test Date/Time Test Type Test Details Facility Name Nov 16, 2024 12:00 AM Laboratory - Chemi stry Order FERRITIN BLOOD (SST-SERUM) [facility] Nov 16, 2024 12:00 AM Laboratory - Chemi stry Order HEMOGLOBIN A1C PANEL BLOOD (LAV-BLOOD) [facility] 12, 2025 12:00 AM Laboratory - Chemi stry Order TSH BLOOD (SST-SERUM) [facility] Nov 16, 2024 12:00 AM Laboratory - Chemi stry Order PSA BLOOD (SST-SERUM) [facility] Nov 16, 2024 12:00 AM Laboratory - Chemi stry Order AMYLASE BLOOD (SST-SERUM) [facility] Nov 16, 2024 12:00 AM Laboratory - Chemi stry Order LIPASE BLOOD (SST-SERUM) [facility] 12, 2025 12:00 AM Laboratory - Chemi stry Order URINALYSIS URINE [facility] Nov 16, 2024 12:00 AM Laboratory - Chemi stry Order MICROALBUMIN CREATININE RATIO PANEL URINE (RANDOM) [facility] 12, 2025 12:00 AM Laboratory - Chemi stry Order BASIC METABOLIC PANEL (fasting) BLOOD (SST-SERUM) [facility] Nov 16, 2024 12:00 AM Laboratory - Chemi stry Order LIVER FUNCTION BLOOD (SST-SERUM) [facility] Nov 16, 2024 12:00 AM Laboratory - Chemi stry Order LIPID PANEL FASTING BLOOD (SST-SERUM) [facility] Nov 16, 2024 12:00 AM Laboratory - Chemi stry Order CALCIUM BLOOD (SST-SERUM) [facility] Nov 16, 2024 12:00 AM Laboratory - Chemi stry Order VITAMIN D (25-OH) BLOOD (SST-SERUM) [facility] Nov 16, 2024 12:00 AM Laboratory - Chemi stry Order URIC ACID BLOOD (SST-SERUM) [facility] Nov 16, 2024 12:00 AM Laboratory - Chemi stry Order CBC AND DIFF (AUTO) BLOOD (LAV-BLOOD) [facility] Lab Results: +/- 30 days of the encounter This section includes the Chemistry and Hematology Lab Results on record with [place] for the patient. Radiology Reports and Pathology Reports are provided separately, in subsequent sections. Lab Results This section contains the Chemistry/Hematology Results that were resulted 30 days before or 30 daysafter the date of the Encounter. Date/Time Source Result Type Result - Unit Interpretation Reference Range Specimen Type Comment Dec 15, 2024 09:34 AM [facility] CREATININE (eGFR 2020) SERUM Specimen Type: SERUM No comment entered. Ordering Provider: SWAPNIL SCHOFIELD Report Released Date/Time: Dec 14, 2024 02:29 PM Reporting Lab: [address] [address] Performing Lab: [address] [address] CREATININE, Serum 1.27 mg/dL 0.50-1.40 eGFR(CKD-EPI 2020) 63 mL/min >60 Dec 15, 2024 09:34 AM [facility] HEMOGLOBIN A1C PANEL BLOOD Specimen T ype: [...] Dec 14, 2024 02:29 PM Reporting Lab: [address] [address] Performing Lab: [address] [address] HEMOGLOBIN A1C 5.8 H 4.0-5.6 Vital Signs: All taken on the encounter date This section contains inpatient and outpatient Vital Signs collected on the date of the Encounter. Date/Time Temperature Pulse Blood Pressure Respiratory Rate SP02 Pain Height Weight Body Mass Index Source Nov 15, 2024 08:38 AM 97 76 109/74 18 98 228 35 [facility] Social History: Smoking Status (Most current) and Tobacco Use (All prior to encounter date) This section includes the most current, and the historical, smoking and tobacco- related health factors from the [place] facility where the Encounter took place. Current Smoking Status This section includes the most current smoking, or tobacco-related health factor, from the [place] facility where the Encounter took place. Date/Time Current Smoking Status Comment Facil ity Dec 16, 2023 10:00 AM VA-TOBACCO USER EVERY DAY [facility] Tobacco Use History This section includes a history of the smoking, or tobacco-related health factors, that were collected on or before the date of the Encounter. The data comes from the [place] facility where the Encounter took place. Date/Time Smoking Status/Tobacco Use Comment F acility Dec 16, 2023 10:00 AM VA-TOBACCO USE > 1 5 LESS THAN 30 YEARS [facility] Dec 16, 2023 10:00 AM VA-TOBACCO USE 30 YEARS OR MORE [facility] Dec 16, 2023 10:00 AM VA-TOBACCO USE ADVICE [facility] Dec 16, 2023 10:00 AM VA-TOBACCO USE GLOBAL CMO NO [facility] Dec 16, 2023 10:00 AM VA-TOBACCO USE GLOBAL CMO YES [facility] Dec 16, 2023 10:00 AM VA-TOBACCO USE MED NO [facility] Dec 16, 2023 10:00 AM VA-TOBACCO USE MED YES [facility] Dec 16, 2023 10:00 AM VA-TOBACCO USE WI 30 MIN OF WAKEUP [facility] Dec 16, 2023 10:00 AM VA-TOBACCO USER EVERY DAY [facility] Jan 13, 2023 02:00 PM VA-TOBACCO USE 1 T O < 5 YEARS [facility] Jan 13, 2023 02:00 PM VA-TOBACCO USE ADVICE [facility] Jan 13, 2023 02:00 PM VA-TOBACCO USE GLOBAL CMO NO [facility] Jan 13, 2023 02:00 PM VA-TOBACCO USE MED NO [facility] Jan 13, 2023 02:00 PM VA-TOBACCO USE WI 30 MIN OF WAKEUP [facility] Jan 13, 2023 02:00 PM VA-TOBACCO USER EVERY DAY [facility] Jul 03, 2022 09:00 AM VA-TOBACCO FORMER USER [facility] Jul 03, 2022 09:00 AM VA-TOBACCO QUIT 5 TO < 15 YRS [facility] Jul 04, 2021 09:00 AM VA-TOBACCO USE > 1 5 LESS THAN 30 YEARS [facility] Jul 04, 2021 09:00 AM VA-TOBACCO USE ADVICE [facility] Jul 04, 2021 09:00 AM VA-TOBACCO USE GLOBAL CMO NO [facility] Jul 04, 2021 09:00 AM VA-TOBACCO USE MED NO [facility] Jul 04, 2021 09:00 AM VA-TOBACCO USE WI 30 MIN OF WAKEUP [facility] Jul 04, 2021 09:00 AM VA-TOBACCO USER SOME DAYS [facility] Apr 30, 2020 10:39 AM VA-TOBACCO FORMER USER [facility] Apr 30, 2020 10:39 AM VA-TOBACCO QUIT 5 TO < 15 YRS [facility] Dec 21, 2018 03:15 PM VA-TOBACCO FORMER USER [facility] Dec 21, 2018 03:15 PM VA-TOBACCO QUIT 1 TO < 5 YRS [facility] Nov 24, 2017 09:54 AM CURRENT SMOKER cigarets [facility] Nov 24, 2017 09:54 AM V1-PT READY TO SHARAN T TOBACCO USE [facility] Mar 25, 2017 01:57 PM CURRENT SMOKER down to 10 cigarettes daily [facility] Mar 25, 2017 01:57 PM V1-PT DECLINES TOB ACCO CESSATION MEDS [facility] Mar 25, 2017 01:57 PM V1-PT READY TO SHARAN T TOBACCO USE [facility] March 04, 2017 02:38 PM CURRENT SMOKER advise stopm [facility] Jul 22, 2016 09:29 AM V1-PT NOT INTEREST ED IN QUIT TOBACCO USE [facility] Nov 21, 2015 09:21 AM CURRENT SMOKER half a pack a day [facility] Nov 21, 2015 09:21 AM V1-PT NOT INTEREST ED IN QUIT TOBACCO USE [facility] Nov 23, 2014 08:51 AM CURRENT SMOKER [facility] Nov 23, 2014 08:51 AM V1-PT READY TO SHARAN T TOBACCO USE [facility] Dec 16, 2013 02:19 PM CURRENT SMOKER 3/4 pack a day [facility] Dec 16, 2013 02:19 PM V1-PT THINKING ABO UT QUIT TOBACCO USE [facility] Advance Directives: All historical and current Section Date Range: From patient's date of to the date document was created. This section includes ALL of a patient's completed or amended [place] Advance and Rescinded Directives. The entries below indicate that a directive exists for the patient, but an actual copy is not included with this document. The data comes from all [place] facilities. Date Advance Directives Provider Source Dec [...] DATE: NOV 15, 2024@08:39:52 AUTHOR: JUNE SANFORD EXP COSIGNER: URGENCY: STATUS: COMPLETED Suicide Screen: C-SSRS [...] you were unable to say no Never ?? The HITS tool (items 1-4 above) is [place] copyright protected by Wang Benitez MD, and the user has full rights to use it throughout the [place] system. PRIMARY SCREEN RESULT: The Primary Screen is NEGATIVE. The individual answered never to all forms of IPV above (i.e., answered never to all 5 items) The individual accepts education and/or resources: No EDUCATION: Other: Comments: /karlene/ JUNE SANFORD LPN LICENSED PRACTICAL NURSE Signed: 11/15/2024 08:42 JUNE SANFORD [facility] Nov 15, 2024 08:29 AM PHYSICIAN ASSISTAN T NOTE: LOCAL TITLE: PA NOTE STANDARD TITLE: PHYSICIAN SEMICONDUCTOR PROCESSING TECHNICIAN NOTE DATE OF NOTE: NOV 15, 2024@08:29 ENTRY DATE: NOV 15, 2024@08:29:15 AUTHOR: AUSTIN BALDWIN EXP COSIGNER: URGENCY: STATUS: COMPLETED S - says [...] questions. /karlene/ AUSTIN BALDWIN PA-C STAFF PHYSICIAN SEMICONDUCTOR PROCESSING TECHNICIAN Signed: 11/15/2024 09:03 AUSTIN BALDWIN
--- OUTSIDE RECORDS SUMMARY | 2025-02-01 16:06 | XMS_ITS | Clinical Summary ---
Author Organization [facility] Facility Address [address] [address] Care Team Providers Care Secretary Book Keeper Name Role Phone Daron Oconnell Primary Care Provider [phone] Social History Tobacco Use Types Packs/Day Years Used Date Smoking Tobacco: Never Assessed Sex and Gender Information Value Date Recorded Sex Assigned at Not on file Legal Sex Male 4:48 PM EST Gender Identity Not on file Sexual Orientation Not on file Plan of Treatment Health Maintenance Due Date Last Done Comments Colorectal Cancer Screening: Annual FOBT 2010 Colorectal Cancer Screening: Sigmoidoscopy 2010 Pneumococcal Vaccine: 50+ Ye ars (1 of - PCV) 2011 Influenza Vaccine (Season Ended) 2025 Colorectal Cancer Screening: Colonoscopy 05/30/2032 05/30/2022 Hepatitis B Vaccine Aged Out No longe r eligible based on patient's age to complete this topic Insurance [facility] Regions 1,2,3 (VACCN) [facility] Dual Elig Dc [facility] Regions 1,2,3 (VACCN) Care Teams Secretary Book Keeper Relationship Specialty Start Date End Date Daron Oconnell PA [address] [place] [address] PCP - General Physician Warp Placer 12/02/23
--- OUTSIDE RECORDS SUMMARY | 2025-02-01 16:06 | XMS_ITS | Encounter Summary ---
Author Name [place] Address [address] [place] [id number] Care Team Providers Care Building Construction Teacher Name Role Phone AUSTIN BALDWIN Primary Care [...] Relationship to Policy Lomas PATRICIO MULLIGAN-ESME Jones [place] SPECIAL CLASS PATRICIO ERICKSON Nov 14, 2024 PATRICIO MULLIGAN [id number] Dougie RIVERA PATIENT [facility] MEDICAID MEDICAID MEDIC AID Oct 05, 2016 MEDICAI D [id number] NICOLE,Dougie NALLELY PATIENT MEDICAID MEDICAID [facility] STAND BEATRICE Oct 05, 2014 MEDICAI D [id number] Dougie RIVERA NALLELY PATIENT MEDICARE (WNR) MEDICARE (M) PART A May 05, 2018 PART A [id number] [facility] Dougie RIVERA PATIENT MEDICARE (WNR) MEDICARE (M) PART B May 05, 2018 PART B [id number] Dougie RIVERA PATIENT Selected Encounter This section includes the information on record at [place] for the Encounter. Date/Time Encounter Type Encounter Description Reason Pro vider Source IHE Encounter Template Text not used by [place] Advance Directives: All historical and current Section Date Range: From patient's date of to the date document was created. This section includes ALL of a patient's completed or amended [place] Advance and Rescinded Directives. The entries below indicate that a directive exists for the patient, but an actual copy is not included with this document. The data comes from all [place] facilities. Date Advance Directives Provider Source Dec 12, 2014 ADVANCE DIRECTIVE KATRIN GREEN
--- OUTSIDE RECORDS SUMMARY | 2025-02-01 16:06 | XMS_ITS | Encounter Summary ---
Author Name Department [place] Organization [place] Address [address] [place] [address] Care Team Providers Care Stone Polisher Hand Name Role Phone AUSTIN BALDWIN Primary Care Provider [facility] Insurance Providers: All historical and current Section Date Range: From patient's date of to the date document was created. This section includes the names of all active insurance providers for the patient. Insurance Provider Type of Coverage Plan Name Start of Policy Coverage End of Policy Coverage Group Number Member ID Insurance Provider's Telephone Number Policy Lmoas's Name Patient's Relationship to Policy Lomas PATRICIO MULLIGAN-ESME R MD [facility] PATRICIO ERICKSON Nov 14, 2024 PATRICIO MULLIGAN [id number] Dougie RIVERA PATIENT [facility] MEDICAID MEDICAID MEDIC AID Oct 05, 2016 MEDICAI D [id number] NICOLE,Dougie NALLELY PATIENT MEDICAID MEDICAID [facility] STAND BEATRICE Oct 05, 2014 MEDICAI D [id number] Dougie RIVERA NALLELY PATIENT MEDICARE (WNR) MEDICARE (M) PART A May 05, 2018 PART A [id number] Dougie RIVERA NALLELY PATIENT MEDICARE (WNR) MEDICARE (M) PART B May 05, 2018 PART B [id number] [phone] Dougie RIVERA PATIENT Selected Encounter This section includes the information on record at [place] for the Encounter. Date/Time Encounter Type Encounter Description Reason Provider Source Mar 31, 2024 01:32 PM Outpatient Encounter DERMATOLOGY ICD-10-CM Z85.828 Personal history of other malignant neoplasm of skin JOSSECHARLENENancy Gill [facility] Encounter Template Text not used by MD Assessments - Encounter Diagnoses This section includes the primary and secondary diagnoses documented for the Encounter. Date/Time Primary/Secondary Diagnosis Diagnosis Name Provider Source Mar 31, 2024 01:34 PM PRIMARY Personal history of other malignant neoplasm of skin JOSSECRISTEL Gill [facility] Mar 31, 2024 01:34 PM SECONDARY Other seborrheic keratosis CRISTEL LOAIZA [facility] Plan of Treatment: Future Appointments (+ 6 months) and Future Tests (+/- 45 days) The Plan of Treatment section includes future care activities for the patient [facility] [place] [facility] This section includes future appointments [...] 2024 10:00 AM [facility]ORY [facility]ICINE [facility] Apr 05, 2024 01:30 PM [facility]ATORY - MEDICINE [facility] Apr 19, 2024 10:30 AM AMBULATORY - MEDICINE [place] [facility] [place] [facility] Apr 26, 2024 10:00 AM [facility]ULATORY - MEDICINE [facility] Apr 27, 2024 10:30 AM AMBULATORY - MEDICINE [place] [facility] [place] [facility] May 03, 2024 09:00 AM [facility] May 10, 2024 01:00 PM AMBULATORY - MEDICINE [place] [facility] [place] [facility] May 20, 2024 09:00 AM [facility]ATORY - MEDICINE [facility] May 31, 2024 03:30 PM AMBULATORY - MEDICINE [place] [facility] [place] [facility] Jun 14, 2024 03:30 PM AMBULATORY - MEDICINE [place] [facility] [place] [facility] Jun 23, 2024 09:00 AM AMBULATORY - MEDICINE [place] [facility] [place] [facility] Jul 05, 2024 03:30 PM AMBULATORY - MEDICINE [place] [facility] [place] [facility] Jul 15, 2024 11:30 AM [facility]ATORY - MEDICINE [facility] Jul 25, 2024 09:30 AM AMBULATORY - MEDICINE [place] [facility] [place] [facility] Jul 25, 2024 10:00 AM AMBULATORY - MEDICINE [place] [facility] [place] [facility] Jul 25, 2024 11:00 AM AMBULATORY - MEDICINE [place] [facility] [place] [facility] Jul 28, 2024 09:30 AM [facility]ORY - MEDICINE [facility] Jul 28, 2024 10:00 AM AMBULATORY - MEDICINE [facility] Jul 29, 2024 03:00 PM AMBULATORY - MEDICINE [place] [facility] [place] [facility] Aug 03, 2024 03:30 PM [facility] Active, Pending, and Scheduled Orders [...] stry Order HEMOGLOBIN A1C PANEL BLOOD (LAV-BLOOD) [facility] Lab Results: +/- 30 days [...] Type Comment Apr 05, 2024 08:13 AM [facility] VITAMIN D (25-OH) SERUM Specimen Type: SERUM No comment entered. Ordering Provider: ALFREDO SANDERS Report Released Date/Time: Jan 19, 2024 04:58 PM Reporting Lab: [address] [address] Performing Lab: [address] [address] VITAMIN D (25-OH) 43 ng/mL 20-50 Apr 05, 2024 08:13 AM [facility] MICROALBUMIN CREATININE RATIO PANEL URINE Spe cimen Type: URINE No comment entered. Ordering Provider: ALFREDO SANDERS Report Released Date/Time: Jan 19, 2024 04:58 PM Reporting Lab: [facility] [address] [address] Performing Lab: [facility] [address] MICROALBUMIN/CREATININE RATIO 70.7 mg/g H 0-29.9 MICROALBUMIN,QUANTITATIVE 11.0 mg/dL RR UNAVAIL CREATININE URINE 155.54 mg/dL Apr 05, 2024 08:13 AM [facility] FERRITIN SERUM Specimen Type: SERUM No comment entered. Ordering Provider: ALFREDO SANDERS Report Released Date/Time: Jan 19, 2024 04:58 PM Reporting Lab: [address] [address] Performing Lab: [facility] [address] FERRITIN 33 ng/mL 20-300 Apr 05, 2024 08:13 AM [facility] IRON & TIBC PANEL SERUM Specimen Type: SERUM No comment entered. Ordering Provider: ALFREDO SANDERS Report Released Date/Time: Jan 19, 2024 04:58 PM Reporting Lab: [facility] [address] Performing Lab: [facility] [address] TIBC 494 ug/dL H 204-475 IRON 110 ug/dL 40-160 Transferrin Saturation 22.3 20.0-50.0 Apr 05, 2024 08:13 AM [facility] BASIC METABOLIC PANEL (non-fasting) SERUM Spe cimen Type: SERUM No comment entered. Ordering Provider: ALFREDO SANDERS Report Released Date/Time: Jan 19, 2024 04:58 PM Reporting Lab: [facility] [address] Performing Lab: [facility] [address] [address] UREA NITROGEN 14 mg/dL 7-25 GLUCOSE 128 mg/dL H 65-100 SODIUM 138 mmol/L 135-145 POTASSIUM 4.5 mmol/L 3.5-5.0 CHLORIDE 103 mmol/L 100-110 CO2 24 meq/L 20-30 CREATININE, Serum 1.35 mg/dL 0.50-1.40 eGFR(CKD-EPI 2020) 59 mL/min L >60 Apr 05, 2024 08:13 AM [facility] CBC BLOOD Specimen Type: BLOOD No comment entered. Ordering Provider: ALFREDO SANDERS Report Released Date/Time: Jan 19, 2024 04:58 PM Reporting Lab: [facility] [address] [address] Performing Lab: [address] [address] WBC 8.57 10*3/uL 4.50-11.00 RBC 5.34 10*6/uL [...] Encounter Note(s) Provider Source Mar 31, 2024 01:32 PM TELEIMAGING REPORT : LOCAL TITLE: CONSULT-TELEDERMATOLOGY IMAGING REPORT STANDARD TITLE: TELEIMAGING REPORT DATE OF NOTE: MAR 31, 2024@13:32 ENTRY DATE: MAR 31, 2024@13:33:04 AUTHOR: CRISTEL LOAIZA EXP COSIGNER: URGENCY: STATUS: COMPLETED HISTORY: This is a 63-year-old male with a previous history of SCC who is consulted for lesion on the left scalp. No symptomology given without lesion. OVERALL CONSULT/IMAGE QUALITY: Fully satisfactory EXAM: 7 mm hudson stuck on appearing papule. Horn cysts are visible with dermatoscope IMPRESSION BASED ON IMAGES AND INFORMATION REVIEWED: PROBLEM A: Diagnosis: Seborrheic Keratosis RECOMMENDATIONS FOR REFERRING PROVIDER: PROBLEM A: Other recommendations: No treatment is needed for this lesion. If it is asymptomatic can treat be treated with liquid nitrogen. Additional Information: Given history of SCC should have annual skin exams with dermatology. RECOMMENDED FOLLOW-UP: Consult to Dermatology clinic for follow up BINA: Cumulative time of review and management: 5 minutes or more /karlene/ CRISTEL LOAIZA PA-C DERMATOLOGY CLINIC Signed: 03/31/2024 13:34 CRISTEL LOAIZA [facility]
--- OUTSIDE RECORDS SUMMARY | 2025-02-01 16:06 | XMS_ITS | Encounter Summary ---
Author Name [facility] Organization [facility] [place] Address [address] [place] [address] Care Team Providers Care Waiter/Waitress Buffet Name Role Phone AUSTIN BALDWIN Primary Care [...] PATRICIO ERICKSON Nov 14, 2024 PATRICIO MULLIGAN [id number] NICOLE,A NALLELY PATIENT [facility] MEDICAID MEDICAID MEDIC AID Oct 05, 2016 MEDICAI D [id number] NICOLE,A NALLELY PATIENT MEDICAID MEDICAID [facility] ST[facility] Oct 05, 2014 MEDICAI D [id number] NICOLE,Dougie NALLELY PATIENT MEDICARE (WNR) MEDICARE (M) PART A May 05, 2018 PART A [id number] Dougie RIVERA NALLELY PATIENT MEDICARE (WNR) MEDICARE (M) PART B May 05, 2018 PART B [id number] Dougie RIVERA PATIENT Selected Encounter This section includes the information on record at ID for the Encounter. Date/Time Encounter Type Encounter Description Reason Provider Source Apr 19, 2024 10:30 AM OFFICE O/P EST MOD 30 MIN RENAL/NEPHROL(EXC EPT DIALYSIS) ICD-10-CM N18.30 Chronic kidney disease, stage 3 unspecified SASHA SANDERS Dougie [facility] Encounter Template Text not used by ID Assessments - Encounter Diagnoses This section includes the primary and secondary diagnoses documented for the Encounter. Date/Time Primary/Secondary Diagnosis Diagnosis Name Provider Source Apr 21, 2024 11:26 AM PRIMARY Chronic kidney disease, stage 3 unspecified SANDERSJENNIFER PEDERSEN ID CNT [facility] [place] [facility] Apr 21, 2024 11:26 AM SECONDARY Essential (primary) hypertension JENNIFER SANDERS DAMIAN Dougie ID CNTRL [facility] [place] [facility] Apr 21, 2024 11:26 AM SECONDARY Type 2 diabetes mellitus without complications MARILYNJENNIFER Reagan [facility] Plan of Treatment: Future Appointments (+ 6 months) and Future Tests (+/- 45 days) The Plan of Treatment section includes future care activities for the patient from all [facility] This section includes future appointments and future orders which are active, pending or scheduled. Future Appointments This section includes appointments that were scheduled to occur 6 months from the date of the Encounter, up to a maximum of 20 appointments. The data comes from all ID treatment facilities. Appointment Date/Time Appointment Type Appointme nt Facility Name Apr 26, 2024 10:00 AM AMBULATORY - MEDICINE [facility] Apr 27, 2024 10:30 AM AMBULATORY - MEDICINE ID C [facility]TRL [facility] [place] [facility] May 03, 2024 09:00 AM [facility]ATORY - MEDICINE [facility] May 10, 2024 01:00 PM AMBULATORY - MEDICINE ID C [facility] [place] [facility] May 20, 2024 09:00 AM [facility]ULATORY - MEDICINE [facility] May 31, 2024 03:30 PM AMBULATORY - MEDICINE ID C [facility] [place] [facility] Jun 14, 2024 03:30 PM AMBULATORY - MEDICINE ID C [facility] [place] [facility] Jun 23, 2024 09:00 AM AMBULATORY - MEDICINE ID C [facility] [place] [facility] Jul 05, 2024 03:30 PM AMBULATORY - MEDICINE [facility] C [facility] [place] [facility] Jul 15, 2024 11:30 AM AM[facility]ULATORY - MEDICINE [facility] Jul 25, 2024 09:30 AM AMBULATORY - MEDICINE [facility] [place] [facility] Jul 25, 2024 10:00 AM AMBULATORY - MEDICINE [facility] [place] [facility] Jul 25, 2024 11:00 AM AMBULATORY - MEDICINE [facility] [place] [facility] Jul 28, 2024 09:30 AM [facility]ATORY - MEDICINE [facility] Jul 28, 2024 10:00 AM AM[facility]ULATORY - MEDICINE [facility] Jul 29, 2024 03:00 PM AMBULATORY - MEDICINE [facility] [place] [facility] Aug 03, 2024 03:30 PM AMBULATORY - MEDICINE [facility] [place] [facility] Aug 05, 2024 08:30 AM AMBULATORY - MEDICINE [facility] [place] [facility] Aug 11, 2024 08:30 AM AMBULATORY - MEDICINE ID C [facility] [place] [facility] Aug 25, 2024 09:00 AM AMBULATORY - MEDICINE ID C [facility]TR[facility] [place] [facility] Lab Results: +/- 30 days of [...] Type Comment Apr 05, 2024 08:13 AM [facility] VITAMIN D (25-OH) SERUM Specimen Type: SERUM No comment entered. Ordering Provider: ALFREDO SANDERS Report Released Date/Time: Jan 19, 2024 04:58 PM Reporting Lab: [facility] [address] [address] Performing Lab: [facility] [address] [address] VITAMIN D (25-OH) 43 ng/mL 20-50 Apr 05, 2024 08:13 AM [facility] MICROALBUMIN CREATININE RATIO PANEL URINE Spe cimen Type: URINE No comment entered. Ordering Provider: ALFREDO SANDERS Report Released Date/Time: Jan 19, 2024 04:58 PM Reporting Lab: [address] [address] Performing Lab: [facility] [address] MICROALBUMIN/CREATININE RATIO 70.7 mg/g H 0-29.9 MICROALBUMIN,QUANTITATIVE 11.0 mg/dL RR UNAVAIL CREATININE URINE 155.54 mg/dL Apr 05, 2024 08:13 AM [facility] FERRITIN SERUM Specimen Type: SERUM No comment entered. Ordering Provider: ALFREDO SANDERS Report Released Date/Time: Jan 19, 2024 04:58 PM Reporting Lab: [address] [address] Performing Lab: [address] [address] FERRITIN 33 ng/mL 20-300 Apr 05, 2024 08:13 AM [facility] BASIC METABOLIC PANEL (non-fasting) SERUM Spe cimen Type: SERUM No comment entered. Ordering Provider: ALFREDO SANDERS Report Released Date/Time: Jan 19, 2024 04:58 PM Reporting Lab: [address] [address] Performing Lab: [address] [address] UREA NITROGEN 14 mg/dL 7-25 GLUCOSE 128 mg/dL H 65-100 SODIUM 138 mmol/L 135-145 POTASSIUM 4.5 mmol/L 3.5-5.0 CHLORIDE 103 mmol/L 100-110 CO2 24 meq/L 20-30 CREATININE, Serum 1.35 mg/dL 0.50-1.40 eGFR(CKD-EPI 2020) 59 mL/min L >60 Apr 05, 2024 08:13 AM [facility] IRON & TIBC PANEL SERUM Specimen Type: SERUM No comment entered. Ordering Provider: ALFREDO SANDERS Report Released Date/Time: Jan 19, 2024 04:58 PM Reporting Lab: [facility] [address] [address] Performing [facility]: [facility] [address] [address] TIBC 494 ug/dL H 204-475 IRON 110 ug/dL 40-160 Transferrin Saturation 22.3 20.0-50.0 Apr 05, 2024 08:13 AM [facility] CBC BLOOD Specimen Type: BLOOD No comment entered. Ordering Provider: ALFREDO SANDERS Report Released Date/Time: Jan 19, 2024 04:58 PM Reporting Lab: [facility] [address] [address] Performing Lab: [address] [address] WBC 8.57 10*3/uL 4.50-11.00 RBC 5.34 10*6/uL 4.23-5.66 HGB 16.0 g/dL 12.8-17 HCT 46.1 39.2-50.4 MCV 86.3 fL 82-99 MCHC 34.7 g/dL 30.8-35.1 PLT 278 10*3/uL 140-360 RDW-CV 12.6 12.0-16.0 MCH 30.0 pg 26.2-32.6 Vital Signs: All taken on the encounter date This section contains inpatient and outpatient Vital Signs collected on the date of the Encounter. Date/Time Temperature Pulse Blood Pressure Respiratory Rate SP02 Pain Height Weight Body Mass Index Source Apr 19, 2024 10:48 AM 96.2 80 136/81 18 95 0 238 36 [facility] Advance Directives: All historical and current Section [...] Encounter. Date/Time Encounter Note(s) Provider Source Apr 19, 2024 09:59 AM NEPHROLOGY E & M NOTE: LOCAL TITLE: NEPHROLOGY NOTE STANDARD TITLE: NEPHROLOGY E & M NOTE DATE OF NOTE: APR 19, 2024@09:59 ENTRY DATE: APR 19, 2024@09:59:41 AUTHOR: ALFREDO SANDERS COSIGNER: URGENCY: STATUS: COMPLETED Nephrology Note Follow-Up Consultation Problem:Chronic Kidney Disease Stage 4 History:63 year old robe reagan hisory of hypertension, hypertriglyceridemia and hyperglycemia presenting for evaluation and management of his renal disease. The patient denies any new problems. He states he is gradually losing weight since started semaglutide(Ozemic). MEdications: Active and Recently Outpatient Medications (excluding Supplies): Active Outpatient Medications Status 1) ACCU-CHEK GUIDE (GLUCOSE) TEST STRIP USE 1 STRIP TO ACTIVE TEST BLOOD SUGARS DIRECTED 2) ALBUTEROL 90MCG (CFC-F) 200D ORAL INHL INHALE 1 PUFF ACTIVE BY MOUTH FOUR TIMES DAILY NEEDED FOR BRONCHOSPASM 3) AMLODIPINE BESYLATE 5MG TAB TAKE ONE TABLET BY MOUTH ACTIVE ONCE DAILY FOR BLOOD PRESSURE/HEART, DO NOT TAKE WITH GRAPEFRUIT JUICE 4) CHOLECALCIF 50MCG (D3-2,000UNIT) TAB TAKE ONE TABLET ACTIVE (S) BY MOUTH ONCE DAILY FOR VITAMIN D DEFICIENCY 5) FENOFIBRATE 145MG TAB TAKE ONE TABLET BY MOUTH ONCE ACTIVE (S) DAILY 6) OMEPRAZOLE 20MG EC CAP TAKE ONE CAPSULE BY MOUTH ACTIVE TWICE DAILY FOR EXCESSIVE PRODUCTION OF STOMACH ACID 7) SEMAGLUTIDE 0.25MG/0.375ML INJ PEN 3ML INJECT 0.5MG ACTIVE SUBCUTANEOUSLY ONCE A WEEK FOR TYPE 2 DIABETES MELLITUS 8) SILDENAFIL CITRATE 100MG TAB TAKE ONE TABLET BY MOUTH ACTIVE DIRECTED TAKE 1 HOUR PRIOR TO SEXUAL ACTIVITY 9) VARENICLINE 1MG TAB TAKE ONE TABLET BY MOUTH TWICE ACTIVE DAILY FOR SMOKING CESSATION Active Non-VA Medications Status 1) Non-VA ASPIRIN [...] ACTIVE MOUTH ONCE DAILY 17 Total Medications HEENT: Neck/Throat: supple; no JVD; Lungs:clear Heart:RRR; [...] without uremic sx. Review of labs from April 05, 2024 showed normal bicarb(24), potassium(4.5). His urine microalb/cr ratio was 218.7 now 71. His creatinine was normal at 1.35 His GFR was 59. the patient had a negative CT scan December 2023 which was normal. There is no indication for a US at this time. #2. Hypertension: the patient's blood pressure was 136/81 p=80 today.His BP is monitored at home and [...] He will continue fenofibrate, fish oil and [place] 3. He is also encouraged to adhere to a heart healthy low fat diet. #4. Nutritional state: The patient's weight was 238 lbs today with an albumin of 3.8.. He [...] return. #6. Diabetes: the patient's hgbA1c was 6.10 Nov 2023. He is presently prescribed Semaglutide.He is encouraged to take his dlucose lowering meds as described. He is encouraged to exercise. #7 anemia: the patient's H/H was 16/46 86 on 04/27. His TIBC was 494, iron 110, ferritin was 33 and TSAT was 22.3. Concerned that his TSAT and ferritin are low. Will recheck on return to see if [...] or non-VA provider. /karlene/ ALFREDO SANDERS M.D. PERFORMANCE TEST ENGINEER WET PROCESS MILLER HEAD Signed: 04/19/2024 11:03 ALFREDO SANDERS [facility]
--- OUTSIDE RECORDS SUMMARY | 2025-02-01 16:06 | XMS_ITS | Encounter Summary ---
Author Name [facility] [place] Organization [facility] [place] Address [address] [place] [address] Care Team Providers Care Music Artist Name Role Phone AUSTIN BALDWIN Primary [facility] Insurance Providers: All historical [...] Relationship to Policy Lomas PATRICIO MULLIGAN-ESME R [place] SPECIAL CLASS PATRICIO ERICKSON Nov 14, 2024 PATRICIO MULLIGAN [id number] Dougie RIVERA PATIENT [facility] MEDICAID MEDICAID MEDIC AID Oct 05, 2016 MEDICAI D [id number] NICOLE,A NALLELY PATIENT MEDICAID [facility]ICAID [facility] Oct 05, 2014 MEDICAI D [id number] Dougie RIVERA NALLELY PATIENT MEDICARE (WNR) MEDICARE (M) PART A May 05, 2018 PART A [id number] [facility] Dougie RIVERA NALLELY PATIENT MEDICARE (WNR) MEDICARE (M) PART B May 05, 2018 PART B [id number] Dougie RIVERA PATIENT Selected Encounter This section includes the information on record at [place] for the Encounter. Date/Time Encounter Type Encounter Description Reason Provider Source Jun 14, 2024 03:30 PM PSYTX W PT 30 MINUTES PRIMARY CARE/MEDICINE ICD-10-CM Z72.0 Tobacco use SCARLET LUGO Nancy Encounter Template Text not used by [place] Assessments - Encounter Diagnoses This section includes the primary and secondary diagnoses documented for the Encounter. Date/Time Primary/Secondary Diagnosis Diagnosis Name Provider Source Jun 14, 2024 03:35 PM PRIMARY Tobacco use LUCINA LUGO [place] Plan of Treatment: Future Appointments (+ 6 months) and Future Tests (+/- 45 days) The Plan of Treatment section includes future care activities for the patient from all [place] [facility] This section includes future appointments and [...] 23, 2024 09:00 AM AMBULATORY - MEDICINE [place] C [facility] [place] [facility] Jul 05, 2024 03:30 PM AMBULATORY - MEDICINE [place] C [facility] [place] [facility] Jul 15, 2024 11:30 AM [facility]ULATORY [facility] Jul 25, 2024 09:30 AM AMBULATORY - MEDICINE [place] C [facility] [place] [facility] Jul 25, 2024 10:00 AM AMBULATORY - MEDICINE [place] C [facility] [place] [facility] Jul 25, 2024 11:00 AM AMBULATORY - MEDICINE NM C [facility] [place] [facility] Jul 28, 2024 09:30 AM [facility]ULATORY [facility] Jul 28, 2024 10:00 AM AMBULATORY [facility] Jul 29, 2024 03:00 PM AMBULATORY - MEDICINE NM C [facility] [place] [facility] Aug 03, 2024 03:30 PM AMBULATORY - MEDICINE NM C [facility] [place] [facility] Aug 05, 2024 08:30 AM AMBULATORY - MEDICINE [place] C [facility] [place] [facility] Aug 11, 2024 08:30 AM AMBULATORY - MEDICINE [place] C [facility] [place] [facility] Aug 25, 2024 09:00 AM AMBULATORY - MEDICINE [place] C [facility] [place] [facility] Sep 07, 2024 10:00 AM AMBULATORY - MEDICINE [place] C [facility] [place] [facility] Sep 07, 2024 03:00 PM AMBULATORY - MEDICINE [place] C [facility] [place] [facility] Sep 12, 2024 09:00 AM [facility]ULATORY [facility] Sep 15, 2024 08:45 AM AMBULATORY - MEDICINE [place] [facility] [place] [facility] Sep 20, 2024 09:30 AM AM[facility]ULATORY [facility] Sep 20, 2024 10:30 AM AMBULATORY [facility] Oct 06, 2024 10:00 AM AMBULATORY - MEDICINE [place] C [facility] [place] [facility] Social History: Smoking Status (Most current) and Tobacco Use (All prior to encounter date) This section includes the most current, and the historical, smoking and tobacco- related health factors from the [place] facility where the Encounter took place. Current Smoking Status This section includes the most current smoking, or tobacco-related health factor, from the [place] facility where the Encounter took place. Date/Time Current Smoking Status Comment Facil [facility] Dec 16, 2023 10:00 AM VA-TOBACCO USER EVERY DAY [place] Tobacco Use History This section includes a history of the smoking, or tobacco-related health factors, that were collected on or before the date of the Encounter. The data comes from the [place] facility where the Encounter took place. Date/Time Smoking Status/Tobacco Use Comment F acility Dec 16, 2023 10:00 AM VA-TOBACCO USE > 1 5 LESS THAN 30 YEARS [place] Dec 16, 2023 10:00 AM VA-TOBACCO USE 30 YEARS OR MORE [place] Dec 16, 2023 10:00 AM VA-TOBACCO USE ADVICE [place] Dec 16, 2023 10:00 AM VA-TOBACCO USE TOOL AND PRODUCTION PLANNER NO [place] Dec 16, 2023 10:00 AM VA-TOBACCO USE TOOL AND PRODUCTION PLANNER YES [place] Dec 16, 2023 10:00 AM VA-TOBACCO USE MED NO [place] Dec 16, 2023 10:00 AM VA-TOBACCO USE MED YES [place] Dec 16, 2023 10:00 AM VA-TOBACCO USE WI 30 MIN OF WAKEUP [place] Dec 16, 2023 10:00 AM VA-TOBACCO USER EVERY DAY [place] Jan 13, 2023 02:00 PM VA-TOBACCO USE 1 T O < 5 YEARS [place] Jan 13, 2023 02:00 PM VA-TOBACCO USE ADVICE [place] Jan 13, 2023 02:00 PM VA-TOBACCO USE TOOL AND PRODUCTION PLANNER NO [place] Jan 13, 2023 02:00 PM VA-TOBACCO USE MED NO [place] Jan 13, 2023 02:00 PM VA-TOBACCO USE WI 30 MIN OF WAKEUP [place] Jan 13, 2023 02:00 PM VA-TOBACCO USER EVERY DAY [place] Jul 03, 2022 09:00 AM VA-TOBACCO FORMER USER [place] Jul 03, 2022 09:00 AM VA-TOBACCO QUIT 5 TO < 15 YRS [place] Jul 04, 2021 09:00 AM VA-TOBACCO USE > 1 5 LESS THAN 30 YEARS [place] Jul 04, 2021 09:00 AM VA-TOBACCO USE ADVICE [place] Jul 04, 2021 09:00 AM VA-TOBACCO USE TOOL AND PRODUCTION PLANNER NO [place] Jul 04, 2021 09:00 AM VA-TOBACCO USE MED NO [place] Jul 04, 2021 09:00 AM VA-TOBACCO USE WI 30 MIN OF [facility] Jul 04, 2021 09:00 AM VA-TOBACCO USER SOME DAYS [place] Apr 30, 2020 10:39 AM VA-TOBACCO FORMER USER [place] Apr 30, 2020 10:39 AM VA-TOBACCO QUIT 5 TO < 15 YRS [place] Dec 21, 2018 03:15 PM VA-TOBACCO FORMER USER [place] Dec 21, 2018 03:15 PM VA-TOBACCO QUIT 1 TO < 5 YRS [place] Nov 24, 2017 09:54 AM CURRENT SMOKER cigarrufina [place] Nov 24, 2017 09:54 AM V1-PT READY TO SHARAN T TOBACCO USE [place] Mar 25, 2017 01:57 PM CURRENT SMOKER down to 10 cigarettes daily [place] Mar 25, 2017 01:57 PM V1-PT DECLINES TOB ACCO CESSATION MEDS [place] Mar 25, 2017 01:57 PM V1-PT READY TO SHARAN T TOBACCO USE [place] March 04, 2017 02:38 PM CURRENT SMOKER advise stopm [place] Jul 22, 2016 09:29 AM V1-PT NOT INTEREST ED IN QUIT TOBACCO USE [place] Nov 21, 2015 09:21 AM CURRENT SMOKER half a pack a day [place] Nov 21, 2015 09:21 AM V1-PT NOT INTEREST ED IN QUIT TOBACCO USE [place] Nov 23, 2014 08:51 AM CURRENT SMOKER [facility] Nov 23, 2014 08:51 AM V1-PT READY TO SHARAN T TOBACCO USE [place] Dec 16, 2013 02:19 PM CURRENT SMOKER 3/4 pack a day [place] Dec 16, 2013 02:19 PM V1-PT THINKING ABO UT QUIT TOBACCO USE [place] Advance Directives: All historical and current Section [...] Practitioner 06/16/2024 13:33 /karlene/ JERAMY MASON Advanced Third Rail Installer --- Original Document --- 06/14/24 TOBACCO CESSATION NOTE: [place] Video Connect (VVC) Standard Documentation [facility] Clinician Resources Only: E911 (Emergency Call Relay Center): [phone] [facility] Crisis Line - 988 then press #1. [facility] Suicide Coordinator ? [phone], Ext. [phone]; Back-up Ext. [phone] [place] Police, Dianelys CORADO ? [phone] Introduction: Visit is being conducted by [place] Video Connect. identified with 2 identifiers: [X] Full Name [X] Date of [ ] VA ID Card Emergency Plan: confirmed and/or provided the following information in case of emergency or technology failure. PATIENT PHONE - PHONE NUMBER [CELLULAR] - Is patient phone number correct, if not, enter below: 's phone number: ANGELA RIVERA [address] [facility] [facility], [place], [address] 's present location and address for appointment: home [place]'s emergency contact name and phone number: chart reported that location is private and safe: Yes Informed Consent: informed of the risks and benefits of Telehealth video care. [place] has the right to refuse video services. If refuses video visit, a [id number]-[id number] visit will be scheduled. [place] verbalized consent for this video visit: Yes [place] provided consent for any other persons present [...] buy them. [facility] is [facility]. He notes he will be [...] was reported. No imminent risk reported. IMPRESSIONS: [place] is taking chanitx. No longer smoking PLAN: 1) will return on 07/05 at 330pm via VVC 2) continue chantix-- need renewl 1MG ORAL BID -- ask for renewl [employer] COACHING SKILLS Coaching or Motivational Interviewing skills used. /es/ Lucina Lugo, PhD Clinical Psychologist Signed: 06/16/2024 10:40 LUCINA LUGO [place] Jun 14, 2024 03:31 PM SMOKING CESSATION NOTE: LOCAL TITLE: TOBACCO CESSATION NOTE STANDARD TITLE: SMOKING CESSATION NOTE DATE OF NOTE: JUN 14, 2024@15:31 ENTRY DATE: JUN 14, 2024@15:31:53 AUTHOR: LUCINA LUGO EXP COSIGNER: URGENCY: STATUS: COMPLETED TOBACCO CESSATION NOTE Has ADDENDA [place] [facility] Connect ([facility]VC) Standard Documentation [facility] Clinician Resources Only: E911 (Emergency Call Relay Center): [phone] [facility] Crisis Line - 988 then press #1. [facility] Suicide Coordinator ? [phone], Ext. [phone]; Back-up Ext. [phone] [place] Police, Dianelys CORADO ? [phone] Introduction: Visit is being conducted by [place] Video Connect. [place] identified with 2 identifiers: [X] Full Name [X] Date of [ ] VA ID Card Emergency Plan: [place] confirmed and/or provided the following information in case of emergency or technology failure. PATIENT PHONE - PHONE NUMBER [CELLULAR] - Is patient phone number correct, if not, enter below: [place]'s phone number: ANGELA RIVERA [address] [facility] [address], [place], [address] [place]'s present location and address for appointment: home 's emergency contact name and phone number: chart reported that location is private and safe: Yes Informed Consent: [place] informed of the risks and benefits of Telehealth video care. has the right to refuse video services. If refuses video visit, a [id number] visit will be scheduled. verbalized consent for this video visit: Yes [place] provided consent for any other persons present for visit: N/A If yes, who and relationship to patient: Secure visit: Visit was locked for security and privacy:Yes Smoking Cess f/u DATE: 06/14/24 DURATION OF COUNSELIN min DX: tobacco use disorder, mod REASON FOR ENCOUNTER: [place] attended session for smoking cessation. SUMMARY OF [...] buy them. He is going [facility]. He notes he will be to busy to want a cig. He is telling people that he has quit. Told some family members and associates. INTERVENTIONS: Psychoeducation regarding AARM (avoiding, altering, replacing, and mentally coping) with triggers was discussed. Discussed smoking slips and what actions to take if this occurs. MENTAL STATUS: [place] was oriented x3, mental status was WNL. No behavioral, perceptual or thought disturbances reported or observed. No concerns. CURRENT IMPRESSION OF LETHALITY RISK / PLAN FOR RISK MANAGEMENT: No thoughts, intent or plan to harm self or others was reported. No imminent risk reported. IMPRESSIONS: is taking chanitx. No longer smoking PLAN: 1) [place] will return on 07/05 at 330pm via VVC 2) continue chantix-- need renewl 1MG ORAL BID -- ask for renewl [employer] COACHING SKILLS Coaching or Motivational Interviewing skills used. /karlene/ Lucina Lugo PhD Clinical Psychologist Signed: 06/16/2024 10:40 06/16/2024 ADDENDUM STATUS: COMPLETED alerting PharmD that is now [...]
--- OUTSIDE RECORDS SUMMARY | 2025-02-01 16:06 | XMS_ITS | Continuity of Care Document ---
Author Name [facility] Organization [facility] Care Team Providers Care Networking Specialist Name Role Phone [facility] Unavailable Unavailable Problems Combined list of problems from Department of Defense and Veterans Affairs facilities. It does not include entries that were removed or entered in error. Problem Status Onset Date Problem Type Date of Resolution Comments Source Abdominal pain Active Condition Dec 042021 Entered By: AUSTIN BALDWIN Comment: Seen Ed DEC 24: CT of ABD/Pelvis.Thorax Neg for Any AcuitiesDec 24, 2021 Entered By: AUSTIN BALDWIN Comment: Some N/V Accompanies ABD Pain; No Etio for ABD Pain NotedDec 24, 2021 Entered By: AUSTIN BALDWIN Comment: During Hospital Course; GI Referral DiscussedSep 2021 Entered By: AUSTIN BALDWIN Comment: Seen ED JUN 26: Intractable N/V; Dehydration, RICARDO, Anxiety Jul 03, 2022 Entered By: AUSTIN BALDWIN Comment: CT, ABD in ED JUN 26: +Sigmoid Diverticulosis; No DiverticulitisSep 2021 Entered By: AUSTIN BALDWIN Comment: No Bowel Obstruction; No Acute ABD/Pelvic FindingsSep 2021 Entered By: AUSTIN BALDWIN Comment: No Hepatic or Biliary Lesions DilatationSep 2021 Entered By: AUSTIN BALDWIN Comment: Sx of N/V Attributed to Excess THC Use, Dehydration [place] Anxiety Active Condition [facility] Bronchospasm Active Condition Nov 04, 2023 Entered By: AUSTIN BALDWIN Comment: Cold-Induced [place] Calculus of prostate Active Condition Nov 26, 2015 Entered By: AUSTIN BALDWIN Comment: Thought he Had Kidney Stone; But Appear NotFe2015 Entered By: AUSTIN BALDWIN Comment: US, Kid, Bladder APRIL 18 Neg for Stone, Obstruct, or Mass [place] Cannabis dependence Active Condition [facility] Carpal tunnel syndrome Active Condition Dec 16, 2013 Entered By: AUSTIN BALDWIN Comment: Surg B/L (R Side in 2010 & L side 2012) [place] Cervical radiculopathy Active Condition May 11, 2020 Entered By: AUSTIN BALDWIN Comment: X-Ray, C-Spine MAY 24: +Degen Disc and Joint DiseaseAu2019 Entered By: AUSTIN BALDWIN Comment: Trying PT - if no Benefit, then Get MRI and Refer to Neuro Surg [place] Chest wall pain Active Condition Sep 11, 2021 Entered By: AUTSIN BALDWIN Comment: Intermittent Ch Wall Sx w/o AnginaSep 2021 Entered By: AUSTIN BALDWIN Comment: EKG in ED JUN 26: Sinus Tach; Non-Specific ST T Wave ABNL;Jul 03, 2022 Entered By: AUSTIN BALDWIN Comment: Incomplete RBBBJul 2022 Entered By: AUSTIN BALDWIN Comment: Cardiac Exercise Stress Test Done [facility] MARCH 27:Apr 20, 2023 Entered By: AUSTIN BALDWIN Comment: went Well per Pt. [place] Chronic kidney disease stage 3 Active Condition Apr 09, 2015 Entered By: AUSTIN BALDWIN Comment: eGFR 49 in APRIL 18: to see Pion Jayne Renal in APRIL 18Jun 2017 Entered By: AUSTIN BALDWIN Comment: US, Renals Bladder Franc MARCH 23: No Mass of BleedMar 2023 Entered By: AUSTIN BALWDIN Comment: New US, Renals DEC 26 at [facility]; No Richards or Obstruct UropathyMar 2023 Entered By: AUSTIN BALDWIN Comment: US Done Because of RICARDO on top of CKD (eGFR is 20 in NOV 28) [place] Colonoscopy normal Active Condition M 2013 Entered By: AUSTIN BALDWIN Comment: Screen Colonoscopy 2011 - Neg CRC; repeat 2021 [place] EKG axis finding Active Condition Mar 20, 2014 Entered By: AUSTIN BALDWIN Comment: EKG, MARCH 18: NSRFeb 2015 Entered By: AUSTIN BALDWIN Comment: CXR, NOV 20 @ ED [place]: Nothing Adverse Reported [place] Erectile dysfunction Active Condition [facility] Exposure to potentially hazardous substance Active Condition Dec 26, 2022 Entered By: AUSTIN BALDWIN [facility] Entered By: MARYAM DOMINIQUE Comment: MARIA FERNANDA Screening Snomed Code connected 12/26/22 [place] Fracture of ankle Active Condition Ma r 2013 Entered By: AUSTIN BALDWIN Comment: Fx, R Ankle and ORIF approx 1982 ( parachute) [place] Gastroesophageal reflux disease Active Condition [facility] [place] [facility] Hyperglycemia Active Condition Mar Entered By: AUSTIN BALDWIN Comment: Begin Trial Low Dose Metformin March Entered By: AUSTIN BALDWIN Comment: Diabetes Mellitius [place] Hypertension Active Condition [place] Hypertriglyceridemia Active Condition [facility] Malignant otitis externa Active Condition Jun 17, 2023 Entered By: AIDTYA IBARRA Comment: May 2023 [place] Nicotine dependence Active Condition [facility] Obstructive Sleep Apnea of Adult (SCT [id number]) Active Condition Oct 20, 2023 Entered By: ADITYA IBARRA Comment: Jul 2023 HST: CIRILO - 20, moderate [place] Panic attack Active Condition Dec 16, 2013 Entered By: AUSTIN BALDWIN Comment: sees outside psych as of DEC 16: Fluoxetine, Ativan Neida [place] Panic attack Active Condition Aug 25, 2023 Entered By: AUSTIN BALDWIN Comment: Chronic Panic Attacks; Sees [facility] [phone] 25, 2023 Entered By: AUSTIN BALDWIN Comment: [employer] HEL[employer] 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 [place]a) [facility] FEBRUARY 19:Apr 13, 2018 Entered By: AUSTIN BALDWIN Comment: Dx: Secondary Polycythemia; +Elevated E-Poetin, Neg JAK2 Mutation;Apr 13, 2018 Entered By: AUSTIN BALDWIN Comment: Smoker; Referred for LDCT (he may have declined LDCT);Apr 13, 2018 Entered By: AUSTIN BALDWIN Comment: Also, Renal Insufficiency; Return to [facility] AUG 22Ju2017 Entered By: AUSTIN BALDWIN Comment: Has Had H/O Elevated H/H's [place] Screening for malignant neoplasm of colon done Active Condition Mar 10, 2022 Entered By: AUSTIN BALDWIN Comment: pending 2021 [place] Secondary polycythemia Active Condition Oct 23, 2016 Entered By: ROMERO HODGES Comment: follows with Hem/Onc [facility] - l/s 08/05/16, f/u in 1 year [facility] Steatosis of liver Active Condition M ar 2023 Entered By: AUSTIN BALDWIN Comment: CT, ABD DEC 26: Diffuse Steatosis w/o Focal Hepatic MassMar 2023 Entered By: AUSTIN BALDWIN Comment: No Ductal Dilatation; Pancreas Appears NL [place] Type 2 diabetes mellitus Active Condition Mar 16, 2024 Entered By: AUSTIN BALDWIN Comment: See Pharm D Note Dated MARCH 28 [place] Under care of doctor Active Condition Oct 31, 2019 Entered By: AUSTIN BALDWIN Comment: Main PCP is [facility] [place] Diagnosis: ICD-10-CM F17.210 Nicotine dependence, cigarettes, uncomplicated Active Diagnosis [place] Diagnosis: ICD-10-CM L60.0 Ingrowing nail Active Diagnosis [facility] Diagnosis: ICD-10-CM M54.2 Cervicalgia Active Diagnosis [facility] Diagnosis: ICD-10-CM Z85.828 Personal history of other malignant neoplasm of skin Active Diagnosis [facility] Diagnosis: ICD-10-CM E11.9 Type 2 diabetes mellitus without complications Active Diagnosis [place] Diagnosis: ICD-10-CM R11.0 Nausea Active Diagnosis [place] Diagnosis: ICD-10-CM Z72.0 Tobacco use Active Diagnosis [facility] [place] Diagnosis: ICD-10-CM R10.9 Unspecified abdominal pain Active Diagnosis [facility] Diagnosis: ICD-10-CM N18.30 Chronic kidney disease, stage 3 unspecified Active Diagnosis [facility] Diagnosis: ICD-10-CM I10 Essential (primary) hypertension Active Diagnosis [place] Diagnosis: ICD-10-CM M50.123 Cervical disc disorder at C6-C7 level with radiculopathy Active Diagnosis [facility] Diagnosis: ICD-10-CM F41.9 Anxiety disorder, unspecified Active Diagnosis [facility] Diagnosis: ICD-10-CM G47.33 Obstructive sleep apnea (adult) (pediatric) Active Diagnosis [facility] ([id number] Diagnosis: ICD-10-CM R68.89 Other general symptoms and signs Active Diagnosis [facility] Diagnosis: ICD-10-CM J20.9 Acute bronchitis, unspecified Active Diagnosis [place] Diagnosis: ICD-10-CM M43.6 Torticollis Active Diagnosis [facility] Diagnosis: ICD-10-CM Z71.89 Other specified counseling Active Diagnosis [facility] Diagnosis: ICD-10-CM Z13.89 Encounter for screening for other disorder Active Diagnosis [place] Diagnosis: ICD-10-CM R11.2 Nausea with vomiting, unspecified Active Diagnosis [facility] Diagnosis: ICD-10-CM R73.9 Hyperglycemia, unspecified Active Diagnosis [place] Diagnosis: ICD-10-CM F41.0 Panic disorder [episodic paroxysmal anxiety] Active Diagnosis [facility] Diagnosis: ICD-10-CM E78.5 Hyperlipidemia, unspecified Active Diagnosis [facility] Diagnosis: ICD-10-CM N18.4 Chronic kidney disease, stage 4 (severe) Active Diagnosis [place] Diagnosis: ICD-10-CM F12.288 Cannabis dependence with other cannabis-induced disorder Active Diagnosis [facility] Diagnosis: ICD-10-CM K21.9 Gastro-esophageal reflux disease without esophagitis Active Diagnosis [facility] Diagnosis: ICD-10-CM Z13.6 Encounter for screening for cardiovascular disorders Active Diagnosis [facility] Admit Reason: ANXIETY,PANIC ATTACKS Active Diagnosis [facility] [place] [facility] Diagnosis: ICD-10-CM J98.01 Acute bronchospasm Active Diagnosis [place] Medications Combined list of outpatient medications from Department of Defense and [facility] Affairs facilities.Medications provided include 1) outpatient medications from the last 15 months, and 2) patient-reported medications. Medication Details Route Status Patient Instructions Prescription Expires Prescription Number Last Dispense Date Ordering Provider Order Date Order Qty Source ACETAMINOPH EN 500MG TAB TAKE ONE TABLET BY MOUTH EVERY 6 HOURS NEEDED FOR PAIN ORAL 08/24/2024 [id number] BAM JOHNSON 2023 100 [facility] ALBUTEROL 90MCG/ACTUA T (CFC-F) INHL,ORAL,8 .5GM DOSE COUNTER INHALE 1 PUFF BY MOUTH FOUR TIMES DAILY NEEDED FOR [place] RESPIR ATORY (INHAL ATION) ACTIVE 11/16/2025 [id number] 5 WILLIAM BALDWIN 2024 1 [place] ALBUTEROL 90MCG/ACTUA T (CFC-F) INHL,ORAL,8 .5GM DOSE COUNTER INHALE 1 PUFF BY MOUTH FOUR TIMES DAILY NEEDED FOR BRONCHOS PASM RESPIR ATORY (INHAL ATION) DISCONT INUED 11/04/2024 [id number] WILLIAM BALDWIN 2023 1 [place] AMLODIPINE BESYLATE 10MG TAB TAKE ONE TABLET BY MOUTH ONCE DAILY FOR BLOOD PRESSURE /HEART, DO NOT TAKE WITH GRAPEFRU IT JUICE ORAL ACTIVE 09/21/2025 [id number] 4 WILLIAM BALDWIN 2023 90 [place] AMLODIPINE BESYLATE 5MG TAB TAKE ONE TABLET BY MOUTH ONCE DAILY FOR BLOOD PRESSURE /HEART, DO NOT TAKE WITH GRAPEFRU IT JUICE ORAL DISCONT INUED (EDIT) 12/16/2024 [id number] 4 WILLIAM BALDWIN 2023 90 [place] ASPIRIN 81MG TAB,EC TAKE ONE TABLET BY MOUTH EVERY DAY ORAL ACTIVE WILLIAM BALDWIN [place] BUSPIRONE HCL 5MG TAB TAKE ONE TABLET BY MOUTH TWICE DAILY ORAL ACTIVE WILLIAM BALDWIN 2020 [place] CHOLECALCIF CHET 50MCG (2,000UNIT) TAB TAKE ONE TABLET BY MOUTH ONCE DAILY FOR VITAMIN D DEFICIEN CY ORAL ACTIVE 11/16/2025 [id number] 5 WILLIAM BALDWIN 2024 100 [place] CHOLECALCIF CHET 50MCG (2,000UNIT) TAB TAKE ONE TABLET BY MOUTH ONCE DAILY FOR VITAMIN D DEFICIEN CY ORAL DISCONT INUED 01/05/2025 [id number] SAMUEL MARTIN ICE 2023 100 [facility] CLONAZEPAM 1MG TAB TAKE ONE TABLET BY MOUTH TWICE DAILY ORAL ACTIVE WILLIAM BALDWIN 2015 [place] CYCLOBENZAP RINE HCL 10MG TAB TAKE ONE TABLET BY MOUTH EVERY 8 HOURS NEEDED FOR MUSCLE SPASM ORAL 08/24/2024 [id number] BAM JOHNSON 2023 15 [facility] FENOFIBRATE 145MG TAB TAKE ONE TABLET BY MOUTH ONCE DAILY ORAL ACTIVE 03/17/2025 [id number] 4 WILLIAM BALDWIN 2023 90 [place] FENOFIBRATE 145MG TAB TAKE ONE TABLET BY MOUTH ONCE DAILY ORAL DISCONT INUED 11/13/2024 [id number] 4 WILLIAM BALDWIN 2023 90 [place] FERROUS GLUCONATE 324MG TAB TAKE ONE TABLET BY MOUTH EVERY OTHER DAY TO SUPPLEME NT IRON ORAL ACTIVE 10/19/2025 [id number] ALFREDO SANDERS 2024 100 [facility] HYDROXYZINE HCL 25MG TAB TAKE ONE TABLET BY MOUTH ONCE DAILY ORAL ACTIVE WILLIAM BALDWIN 2022 [place] OLANZAPINE 5MG TAB TAKE ONE TABLET BY MOUTH TWICE DAILY ORAL ACTIVE RAMONE DICKENS [place] OMEPRAZOLE 20MG CAP,EC TAKE ONE CAPSULE BY MOUTH TWICE DAILY FOR EXCESSIV E PRODUCTI ON OF STOMACH ACID ORAL ACTIVE 03/17/2025 [id number] 5 WILLIAM BALDWIN 2023 180 [place] OMEPRAZOLE 20MG CAP,EC TAKE ONE CAPSULE BY MOUTH TWICE DAILY FOR EXCESSIV E PRODUCTI ON OF STOMACH ACID ORAL DISCONT INUED 05/13/2024 [id number] 4 WILLIAM BALDWIN 2022 180 [place] ONDANSETRON HCL 4MG TAB TAKE ONE TABLET BY MOUTH DIRECVTE D ORAL ACTIVE WILLIAM BALDWIN 2015 [place] SEMAGLUTIDE 0.25MG/0.37 5ML INJ,SOLN,PE N,3ML INJECT 0.5MG SUBCUTAN EOUSLY ONCE A WEEK FOR TYPE 2 DIABETES MELLITUS SUBCUT ANEOUS DISCONT INUED (EDIT) 04/06/2025 [id number] CHUY SCHOFIELD 2023 1 [place] SEMAGLUTIDE 0.25MG/0.37 5ML INJ,SOLN,PE N,3ML INJECT 0.25MG SUBCUTAN EOUSLY ONCE A WEEK FOR TYPE 2 DIABETES MELLITUS SUBCUT ANEOUS DISCONT INUED (EDIT) 04/07/2024 [id number] CHUY SCHOFIELD 2023 1 [place] SEMAGLUTIDE 1MG/0.75ML INJ,SOLN,PE N,3ML INJECT 1MG SUBCUTAN EOUSLY ONCE A WEEK FOR TYPE 2 DIABETES MELLITUS SUBCUT ANEOUS ACTIVE 11/16/2025 [id number] 5 WILLIAM BALDWIN 2024 3 [place] SEMAGLUTIDE 1MG/0.75ML INJ,SOLN,PE N,3ML INJECT 1MG SUBCUTAN EOUSLY ONCE A WEEK FOR TYPE 2 DIABETES MELLITUS SUBCUT ANEOUS DISCONT INUED 09/21/2025 [id number] CHUY SCHOFIELD 2024 3 [place] SEMAGLUTIDE 1MG/0.75ML INJ,SOLN,PE N,3ML INJECT 1MG SUBCUTAN EOUSLY ONCE A WEEK FOR TYPE 2 DIABETES MELLITUS SUBCUT ANEOUS DISCONT INUED 09/21/2025 [id number] 4 CHUY SCHOFIELD 2023 1 [place] SEMAGLUTIDE 1MG/0.75ML INJ,SOLN,PE N,3ML INJECT 1MG SUBCUTAN EOUSLY ONCE A WEEK FOR TYPE 2 DIABETES MELLITUS SUBCUT ANEOUS DISCONT INUED (EDIT) 05/21/2025 [id number] CHUY SCHOFIELD 2023 1 [place] SEMAGLUTIDE 2MG/0.75ML INJ,SOLN,PE N,3ML INJECT 2MG SUBCUTAN EOUSLY ONCE A WEEK FOR TYPE 2 DIABETES MELLITUS SUBCUT ANEOUS DISCONT INUED BY PROVIDE R 09/20/2025 [id number] CHUY SCHOFIELD 2023 3 [place] SEMAGLUTIDE 2MG/0.75ML INJ,SOLN,PE N,3ML INJECT 2MG SUBCUTAN EOUSLY ONCE A WEEK FOR TYPE 2 DIABETES MELLITUS SUBCUT ANEOUS DISCONT INUED 07/30/2025 [id number] CHUY SCHOFIELD 2023 1 [place] TRAZODONE HCL 100MG TAB TAKE ONE-HALF TABLET BY MOUTH HS ORAL ACTIVE RAMONE DICKENS 2022 [place] VARENICLINE 0.5MG TAB TAKE ONE TABLET BY MOUTH ONCE DAILY FOR 3 DAYS, THEN TAKE ONE TABLET TWICE DAILY FOR 4 DAYS, THEN TAKE TWO TABLETS TWICE DAILY ORAL DISCONT INUED (EDIT) 04/15/2024 [id number] CHUY SCHOFIELD 2023 103 [place] VARENICLINE 1MG TAB TAKE ONE TABLET BY MOUTH TWICE DAILY FOR SMOKING CESSATIO N ORAL DISCONT INUED BY VITO R 07/30/2025 [id number] 4 CHUY SCHOFIELD 2023 60 [place] VARENICLINE 1MG TAB TAKE ONE TABLET BY MOUTH TWICE DAILY FOR SMOKING CESSATIO N ORAL DISCONT INUED 07/17/2024 [id number] 4 CHUY SCHOFIELD 2023 60 [place] VARENICLINE 1MG TAB TAKE ONE TABLET BY MOUTH TWICE DAILY FOR SMOKING CESSATIO N ORAL DISCONT INUED 2024 [id number] 4 CHUY SCHOFIELD 2023 60 [place] VARENICLINE 1MG TAB TAKE ONE TABLET BY MOUTH TWICE DAILY FOR SMOKING CESSATIO N ORAL DISCONT INUED 06/09/2024 [id number] 4 CHUY SCHOFIELD 2023 60 [place] VARENICLINE 1MG TAB TAKE ONE TABLET BY MOUTH TWICE DAILY FOR SMOKING CESSATIO N ORAL DISCONT INUED 05/05/2024 [id number] CHUY SCHOFIELD 2023 60 [place] VENLAFAXINE HCL 150MG 24HR CAP,SA TAKE 1 CAPSULE BY MOUTH ONCE DAILY ORAL ACTIVE RAMONE DICKENS 2022 [facility] [place] Allergies, Adverse Reactions, Alerts Combined list of allergies from Department of Defense and Veterans Affairs facilities. It does not include entries that were removed or entered in error. Substance Category Reaction Severity Reaction type Status Date Reported Comments Source CODEINE Propensity to adverse reactions to drug (finding) Low blood pressure active 4 [facility] [place] [facility] OXYCODONE Propensity to adverse reactions to drug (finding) Low blood pressure active 4 [facility] [place] [facility] OXYCODONE Propensity to adverse reactions to drug (finding) Nausea and vomiting active 9 [facility] Immunizations Combined list of available immunizations from the Department of Defense and Veterans Affairs facilities. Immunization Series Date Given Administered By Site Reaction Lot Number CVX Code Drug Avionics Safety Inspector Status Comments Source INFLUENZA, SPLIT VIRUS, TRIVALENT, PF 2023 [place]NY [place] LEFT DELTO ID [id number] 140 complet ed [facility] [place] INFLUENZA, INJECTABLE, QUADRIVALENT, PRESERVATIVE FREE 2022 SUNNY [place] LEFT DELTO ID [id number] 150 complet ed [facility] [place] COVID-19 (MODERNA), MRNA, LNP-S, BIVALENT BOOSTER, PF, 50 MCG/0.5 ML OR 25MCG/0.25 ML DOSE 1 2022 THONG SANTANA LEFT DELTO ID [id number] 229 complet ed [facility] [place] INFLUENZA, INJECTABLE, QUADRIVALENT, PRESERVATIVE FREE 2021 150 complet ed [facility] PNEUMOCOCCAL POLYSACCHARID E PPV23 2021 33 complet ed [facility] [place] INFLUENZA VACCINE, QUADRIVALENT, ADJUVANTED 2020 205 complet ed [facility] [place] COVID-19 (PFIZER), MRNA, LNP-S, PF, 30 MCG/0.3 ML DOSE 3 2020 208 complet ed [facility] COVID-19 (PFIZER), MRNA, LNP-S, PF, 30 MCG/0.3 ML DOSE 2 2020 208 complet ed [facility] COVID-19 (PFIZER), MRNA, LNP-S, PF, 30 MCG/0.3 ML DOSE 1 2020 208 complet ed [facility] INFLUENZA, INJECTABLE, QUADRIVALENT, PRESERVATIVE FREE 2019 150 complet ed [place] INFLUENZA, SEASONAL, INJECTABLE 2018 141 complet ed ll [facility] ZOSTER RECOMBINANT 2 2018 187 complet ed [place] ZOSTER RECOMBINANT 1 2018 187 complet ed See Nov 03 CLINICAL REMINDERS Nursing note administe red at SPO [facility] INFLUENZA, SEASONAL, INJECTABLE 2017 141 complet ed [facility] INFLUENZA, SEASONAL, INJECTABLE 2017 141 complet ed Site: Right Deltoid [place] FLU,3 YRS (HISTORICAL) 2015 88 complet ed Site: Left Deltoid [place] PNEUMOCOCCAL POLYSACCHARID E PPV23 2015 33 complet ed [place] PNEUMOCOCCAL CONJUGATE PCV 13 2015 133 complet ed [place] DTAP, UNSPECIFIED FORMULATION 2013 107 complet ed [place] Results Combined list of recent chemistry, hematology and other laboratory results from Department of Defense and Veterans Affairs, ranging from 15 months to all on record, depending upon the facility. Order Name Results Value Reference Range Date Interpretation Specimen Comments Source GLUCOSE, Fingersti ck GLUCOSE [MASS/VOLUM E] IN BLOOD BY AUTOMATED TEST STRIP 133 mg/dL 65 - 100 12/19 H Specimen Type: BLOOD Comment: For GLU FinTest performed by: Christy Robbins For GLU Fin Meter #: [id number] Ordering Provider: JAVIER SCHOFIELD Report Released Date/Time: Dec 19, 2024 04:05 PM Reporting Lab: [address] [address] Performing Lab: [address] [address] [place] CREATININ E (eGFR 2020) CREATININE [MASS/VOLUM E] IN SERUM OR PLASMA 1.27 mg/dL 0.50 - 1.40 12/15 Specimen Type: SERUM No comment entered. Ordering Provider: JAVIER SCHOFIELD Report Released Date/Time: Dec 14, 2024 02:29 PM Reporting Lab: [address] [address] Performing Lab: [address] [address] [place] CREATININ E (eGFR 2020) GLOMERULAR FILTRATION RATE/1.73 SQ M.PREDICTED [VOLUME RATE/AREA] IN SERUM, PLASMA OR BLOOD BY CREATININE- BASED FORMULA (CKD-EPI 2020) 63 mL/min 60 12/15 Specimen Type: SERUM No comment entered. Ordering Provider: JAVIER SCHOFIELD Report Released Date/Time: Dec 14, 2024 02:29 PM Reporting Lab: [address] [address] Performing Lab: [address] [address] [place] HEMOGLOBI N A1C PANEL HEMOGLOBIN A1C/HEMOGLO BIN.TOTAL IN BLOOD BY HPLC 5.8 4.0 - 5.6 12/15 H Specimen Type: BLOOD Comment: Values obtained from A1C measurement s can vary. For atypical A1C assays, a reported value of 7.0 could actually be between 6.72 and 7.28 if measured by a reference method. A reported value of 9.0 could actually be between 8.73 and 9.27. Ref: http://www. ngsp.org/[place] Pdata.asp Ordering Provider: JAVIER SCHOFIELD Report Released Date/Time: Dec 14, 2024 02:29 PM Reporting Lab: [address] [address] Performing Lab: [address] [address] [place] MICROALBU MIN CREATININ E RATIO PANEL MICROALBUMI N/CREATININ E [MASS RATIO] IN URINE 12.4 mg/g 0 - 29.9 09/20 Specimen Type: URINE No comment entered. Ordering Provider: MACARIO SANDERS Report Released Date/Time: Apr 19, 2024 10:52 AM Reporting Lab: [address] [place] [address] Performing Lab: [facility] [place] [facility] [address] [address] [facility] [facility] MICROALBU MIN CREATININ E RATIO PANEL MICROALBUMI N [MASS/VOLUM E] IN URINE 2.3 mg/dL 09/20 Specimen Type: URINE No comment entered. Ordering Provider: MACARIO SANDERS Report Released Date/Time: Apr 19, 2024 10:52 AM Reporting Lab: [facility] [place] [facility] [address] [address] Performing Lab: [facility] [place] [facility] [address] [address] [facility] [place] [facility] MICROALBU MIN CREATININ E RATIO PANEL CREATININE [MASS/VOLUM E] IN URINE 186.00 mg/dL 09/20 Specimen Type: URINE No comment entered. Ordering Provider: MACARIO SANDERS Report Released Date/Time: Apr 19, 2024 10:52 AM Reporting Lab: [facility] [place] [facility] [address] [address] Performing Lab: [facility] [address] [address] [facility] [place] [facility] BASIC METABOLIC PANEL (non-fast ing) UREA NITROGEN [MASS/VOLUM E] IN SERUM OR PLASMA 7 mg/dL 7 - 25 09/20 Specimen Type: SERUM No comment entered. Ordering Provider: MACARIO SANDERS Report Released Date/Time: Apr 19, 2024 10:52 AM Reporting Lab: [facility] [place] [place] [facility] [address] [address] Performing Lab: [facility] [place] [facility] [address] [address] [facility] [place] [facility] BASIC METABOLIC PANEL (non-fast ing) GLUCOSE [MASS/VOLUM E] IN SERUM OR PLASMA 115 mg/dL 65 - 100 09/20 H Specimen Type: SERUM No comment entered. Ordering Provider: MACARIO SANDERS Report Released Date/Time: Apr 19, 2024 10:52 AM Reporting Lab: [facility] [place] [facility] [address] [address] Performing Lab: [facility] [place] [facility] [address] [address] [facility] [place] [facility] BASIC METABOLIC PANEL (non-fast ing) SODIUM [MOLES/VOLU ME] IN SERUM OR PLASMA 140 mmol/L 135 - 145 09/20 Specimen Type: SERUM No comment entered. Ordering Provider: MACARIO SANDERS Report Released Date/Time: Apr 19, 2024 10:52 AM Reporting Lab: [facility] [place] [facility] [address] [address] Performing Lab: [facility] [place] [facility] [address] [address] [facility] [place] [facility] BASIC METABOLIC PANEL (non-fast ing) POTASSIUM [MOLES/VOLU ME] IN SERUM OR PLASMA 4.1 mmol/L 3.5 - 5.0 09/20 Specimen Type: SERUM No comment entered. Ordering Provider: MACARIO SANDERS Report Released Date/Time: Apr 19, 2024 10:52 AM Reporting Lab: [facility] [place] [facility] [address] [address] Performing Lab: [facility] [place] [facility] [address] [address] [facility] [place] [facility] BASIC METABOLIC PANEL (non-fast ing) CHLORIDE [MOLES/VOLU ME] IN SERUM OR PLASMA 107 mmol/L 100 - 110 09/20 Specimen Type: SERUM No comment entered. Ordering Provider: MACARIO SANDERS Report Released Date/Time: Apr 19, 2024 10:52 AM Reporting Lab: [facility] [place] [facility] [address] [address] Performing Lab: [facility] [place] [facility] [address] [address] [facility] [place] [facility] BASIC METABOLIC PANEL (non-fast ing) CARBON DIOXIDE, TOTAL [MOLES/VOLU ME] IN SERUM OR PLASMA 22 meq/L 20 - 30 09/20 Specimen Type: SERUM No comment entered. Ordering Provider: MACARIO SANDERS Report Released Date/Time: Apr 19, 2024 10:52 AM Reporting Lab: [facility] [address] Performing Lab: [facility]N [facility] [address] [facility]ERRJ[facility]ITALN [facility]ENTERUSE [facility] BASIC METABOLIC PANEL (non-fast ing) CREATININE [MASS/VOLUM E] IN SERUM OR PLASMA 1.07 mg/dL 0.50 - 1.40 09/20 Specimen Type: SERUM No comment entered. Ordering Provider: MACARIO SANDERS Report Released Date/Time: Apr 19, 2024 10:52 AM Reporting Lab: [facility] [address] [address] Performing Lab: [facility]N [facility] [address] [facility]ERRJACK [facility] HOSPITALN [facility]ENTERUSE [facility] BASIC METABOLIC PANEL (non-fast ing) GLOMERULAR FILTRATION RATE/1.73 SQ M.PREDICTED [VOLUME RATE/AREA] IN SERUM, PLASMA OR BLOOD BY CREATININE- BASED FORMULA (CKD-EPI 2020) 78 mL/min 60 09/20 Specimen Type: SERUM No comment entered. Ordering Provider: MACARIO SANDERS Report Released Date/Time: Apr 19, 2024 10:52 AM Reporting Lab: [facility] W[facility] [address] [address] Performing Lab: [facility] TRN [facility] [address] [facility]N [facility]USE [facility] IRON & TIBC PANEL IRON BINDING CAPACITY [MASS/VOLUM E] IN SERUM OR PLASMA 352 ug/dL 204 - 475 09/20 Specimen Type: SERUM No comment entered. Ordering Provider: MACARIO SANDERS Report Released Date/Time: Apr 19, 2024 10:52 AM Reporting Lab: [facility] [address] Performing Lab: [facility] [place] [facility] [address] [address] [facility] [place] [facility] IRON & TIBC PANEL IRON [MASS/VOLUM E] IN SERUM OR PLASMA 60 ug/dL 40 - 160 09/20 Specimen Type: SERUM No comment entered. Ordering Provider: MACARIO SANDERS Report Released Date/Time: Apr 19, 2024 10:52 AM Reporting Lab: [facility] [place] [facility] [address] [address] Performing Lab: [facility] [place] [facility] [address] [address] [place] [facility] [place] [facility] IRON & TIBC PANEL IRON/IRON BINDING CAPACITY.TO PAULIE [MASS RATIO] IN SERUM OR PLASMA 17.0 20.0 - 50.0 09/20 L Specimen Type: SERUM No comment entered. Ordering Provider: MACARIO SANDERS Report Released Date/Time: Apr 19, 2024 10:52 AM Reporting Lab: [place] [facility] [place] [facility] [address] [address] Performing Lab: [facility] [place] [facility] [address] [address] [facility] [place] [facility] IRON & TIBC PANEL TRANSFERRIN [MASS/VOLUM E] IN SERUM OR PLASMA 267 mg/dL 200 - 360 09/20 Specimen Type: SERUM No comment entered. Ordering Provider: MACARIO SANDERS Report Released Date/Time: Apr 19, 2024 10:52 AM Reporting Lab: [facility] [place] [facility] [address] [address] Performing Lab: [place] [facility] [place] [facility] [address] [address] [facility] [place] [place] [facility] FERRITIN FERRITIN [MASS/VOLUM E] IN SERUM OR PLASMA 248 ng/mL 20 - 300 09/20 Specimen Type: SERUM No comment entered. Ordering Provider: MACARIO SANDERS Report Released Date/Time: Apr 19, 2024 10:52 AM Reporting Lab: [facility] [place] [facility] [address] [address] Performing Lab: [facility] [place] [facility] [address] [address] [facility] [place] [facility] CBC LEUKOCYTES [#/VOLUME] IN BLOOD BY AUTOMATED COUNT 7.98 10*3/u L 4.50 - 11.00 09/20 Specimen Type: BLOOD No comment entered. Ordering Provider: MACARIO SANDERS Report Released Date/Time: Apr 19, 2024 10:52 AM Reporting Lab: [facility] [place] [facility] [address] [address] Performing Lab: [facility] [place] [facility] [address] [place] [address] [facility] [place] [facility] CBC ERYTHROCYTE S [#/VOLUME] IN BLOOD BY AUTOMATED COUNT 4.46 10*6/u L 4.23 - 5.66 09/20 Specimen Type: BLOOD No comment entered. Ordering Provider: MACARIO SANDERS Report Released Date/Time: Apr 19, 2024 10:52 AM Reporting Lab: [facility] [place] [address] [address] Performing Lab: [facility] [place] [address] [address] [facility] [place] [facility] CBC HEMOGLOBIN [MASS/VOLUM E] IN BLOOD 13.1 g/dL 12.8 - 17 09/20 Specimen Type: BLOOD No comment entered. Ordering Provider: MACARIO SANDERS Report Released Date/Time: Apr 19, 2024 10:52 AM Reporting Lab: [facility] [place] [address] [address] Performing Lab: [facility] [place] [address] [address] [facility] [place] [facility] CBC HEMATOCRIT [VOLUME FRACTION] OF BLOOD BY AUTOMATED COUNT 37.7 39.2 - 50.4 09/20 L Specimen Type: BLOOD No comment entered. Ordering Provider: MACARIO SANDERS Report Released Date/Time: Apr 19, 2024 10:52 AM Reporting Lab: [facility] [place] [facility] [address] [address] Performing Lab: [facility] [place] [facility] [address] [address] [facility] [place] [facility] CBC MCV [ENTITIC VOLUME] BY AUTOMATED COUNT 84.5 fL 82 - 99 09/20 Specimen Type: BLOOD No comment entered. Ordering Provider: MACARIO SANDERS Report Released Date/Time: Apr 19, 2024 10:52 AM Reporting Lab: [facility] [place] [facility] [address] [address] Performing Lab: [facility] [place] [facility] [address] [address] [facility] [place] [facility] CBC MCHC [MASS/VOLUM E] BY AUTOMATED COUNT 34.7 g/dL 30.8 - 35.1 09/20 Specimen Type: BLOOD No comment entered. Ordering Provider: MACARIO SANDERS Report Released Date/Time: Apr 19, 2024 10:52 AM Reporting Lab: [facility] [place] [facility] [address] [address] Performing Lab: [facility] [place] [facility] [address] [address] [facility] [place] [facility] CBC PLATELETS [#/VOLUME] IN BLOOD BY AUTOMATED COUNT 280 10*3/u L 140 - 360 09/20 Specimen Type: BLOOD No comment entered. Ordering Provider: MACARIO SANDERS Report Released Date/Time: Apr 19, 2024 10:52 AM Reporting Lab: [facility] [place] [facility] [address] [address] Performing Lab: [facility] [place] [facility] [address] [address] [facility] [place] [facility] CBC ERYTHROCYTE DISTRIBUTIO N WIDTH [RATIO] BY AUTOMATED COUNT 13.9 12.0 - 16.0 09/20 Specimen Type: BLOOD No comment entered. Ordering Provider: MACARIO SANDERS Report Released Date/Time: Apr 19, 2024 10:52 AM Reporting Lab: [facility] [address] [address] Performing Lab: [facility]RL [facility]N [facility] [address] [address] [facility] CBC MCH [ENTITIC MASS] BY AUTOMATED COUNT 29.4 pg 26.2 - 32.6 09/20 Specimen Type: BLOOD No comment entered. Ordering Provider: MACARIO SANDERS Report Released Date/Time: Apr 19, 2024 10:52 AM Reporting Lab: [facility]ENTERRJACK [facility]PITALN [facility] [address] [address] Performing Lab: [facility]ENTERRL [facility] [address] [address] [facility] HEMOGLOBI N A1C PANEL HEMOGLOBIN A1C/HEMOGLO BIN.TOTAL IN BLOOD BY HPLC 5.7 4.0 - 5.6 09/19 H Specimen Type: BLOOD Comment: Values obtained from A1C measurement s can vary. For atypical A1C assays, a reported value of 7.0 could actually be between 6.72 and 7.28 if measured by a reference method. A reported value of 9.0 could actually be between 8.73 and 9.27. Ref: http://www. ngsp.org/[place] Pdata.asp Ordering Provider: JAVIER SCHOFIELD Report Released Date/Time: Jul 29, 2024 03:01 PM Reporting Lab: [facility]N [facility]USE[address] [address] Performing Lab: [facility]ENTERRJACK [facility]OSPITALN [address] [address] [facility] CREATININ E (eGFR 2020) CREATININE [MASS/VOLUM E] IN SERUM OR PLASMA 1.12 mg/dL 0.50 - 1.40 09/19 Specimen Type: SERUM No comment entered. Ordering Provider: JAVIER SCHOFIELD Report Released Date/Time: Jul 29, 2024 03:01 PM Reporting Lab: [facility] [place] [facility] [address] [address] Performing Lab: [facility] [place] [facility] [address] [address] [facility] [place] [facility] CREATININ E (eGFR 2020) GLOMERULAR FILTRATION RATE/1.73 SQ M.PREDICTED [VOLUME RATE/AREA] IN SERUM, PLASMA OR BLOOD BY CREATININE- BASED FORMULA (CKD-EPI 2020) 74 mL/min 60 09/19 Specimen Type: SERUM No comment entered. Ordering Provider: JAVIER SCHOFIELD Report Released Date/Time: Jul 29, 2024 03:01 PM Reporting Lab: [facility] [place] [facility] [address] [address] Performing Lab: [facility] [place] [facility] [address] [address] [facility] [place] [facility] Vital Signs Combined list of inpatient and outpatient Vital Signs from Department of Defense and Veterans Affairs, ranging from 12 months to all on record, depending upon the facility. Vital Sign Value Date Comments Source SYSTOLIC BLOOD PRESSURE 109 11/15/19 25 08:38:35 [place] DIASTOLIC BLOOD PRESSURE 74 025 08:38:35 [place] PULSE OXIMETRY 98 11/15/2024 08:38:35 [place] WEIGHT 228 11/15/2024 08:38:35 [place] BMI 35 kg/m2 11/15/2024 08:38:35 [place] TEMPERATURE 97 11/15/2024 08:38:35 [place] PULSE 76 11/15/2024 08:38:35 [place] RESPIRATION 18 11/15/2024 08:38:35 [place] SYSTOLIC BLOOD PRESSURE 120 10/18/19 25 08:40:42 [place] [facility] [place] [place] [facility] DIASTOLIC BLOOD PRESSURE 71 025 08:40:42 [facility] [place] [facility] PULSE OXIMETRY 96 10/18/2024 08:40:42 [facility] [place] [facility] WEIGHT 231 10/18/2024 08:40:42 [facility] [facility] BMI 35 kg/m2 10/18/2024 08:40:42 [facility] [facility] PAIN 0 10/18/2024 08:40:42 [facility] [facility] TEMPERATURE 97.3 10/18/2024 08:40:42 [facility] [place] PULSE 78 10/18/2024 08:40:42 [facility] [place] [facility] RESPIRATION 18 10/18/2024 08:40:42 [facility] [place] [facility] WEIGHT 221.8 09/20/2024 09:37:01 [place] BMI 34 kg/m2 09/20/2024 09:37:01 [place] SYSTOLIC BLOOD PRESSURE 127 07/25/20 24 10:11:41 [facility] [place] [facility] DIASTOLIC BLOOD PRESSURE 90 024 10:11:41 [facility] [place] [facility] PULSE OXIMETRY 97 07/25/2024 10:11:41 [facility] [place] [facility] WEIGHT 233 07/25/2024 10:11:41 [facility] [place] [facility] BMI 36 kg/m2 07/25/2024 10:11:41 [facility] [place] [facility] PAIN 10 07/25/2024 10:11:41 [facility] [place] [facility] TEMPERATURE 97.7 07/25/2024 10:11:41 [facility] [place] [facility] PULSE 98 07/25/2024 10:11:41 [facility] [place] [facility] RESPIRATION 18 07/25/2024 10:11:41 [facility] WEIGHT 243 05/20/2024 09:00:03 [place] BMI 37 kg/m2 05/20/2024 09:00:03 [place] Encounters Combined list of: 1) Encounters from Department of Veterans Affairs facilities going backup to the last 18 months, not all VA inpatient encounters are included; 2) Encounters from the Department of Defense facilities going backup to 280 months. Location Location Details Encounter Type Encounter Number Reason For Visit Attending Provider ADM Date DC Date Status Disposition Source [facility] SLEEP STUDY UNATT&RESP EFFT [id number] Diagnos is: ICD-10- CM G47.33 Obstruc tive sleep apnea (adult) ([facility]) HALIMA NOVAK CURTIS 08/07 [facility] [place] [facility] SLEEP STUDY UNATT&RESP EFFT [id number] Diagnos is: ICD-10- CM G47.33 Obstruc tive sleep apnea (adult) ([facility]) MAR SWAN 08/12 [facility] [place] [facility] Outpatient Encounter [id number] 08/21 [facility] [place] [facility] [place] OFF[place] O/P EST LOW 20-29 MIN [id number] Diagnos is: ICD-10- CM L60.0 Ingrowi CARLOS Cabrera F 08/24 [place] [facility] [facility] Outpatient Encounter [id number] 08/24 [facility] [place] [facility] [place] OFF[place] O/P EST LOW 20-29 MIN [id number] Diagnos is: ICD-10- CM F41.0 Panic disorde r [episod ic paroxys mal anxiety ] FARZANA BADLWIN 08/25 [place] En[place] [id number] 10/20 [place] O/P EST LOW 20 MIN [id number] Diagnos is: ICD-10- CM L60.0 Ingrowi CARLOS Cabrera F 10/20 [place] [facility] [place] [facility] Outpatient Encounter [id number] 10/20 [facility] [place] [facility] En[facility] [id number] 10/30 [facility] [place] En[facility] [id number] 10/30 [facility] [place] En[facility] [id number] 11/02 [facility] [place] [facility] OFFICE O/P EST LOW 20 MIN [id number] Diagnos is: ICD-10- CM J98.01 Acute broncho spasm FARZANA BALDWIN 11/04 [place] [facility] En[facility] [id number] 11/11 [facility] [place] [place] [facility] Outpatient Encounter [id number] 11/13 [facility] [place] [facility] Outpatient Encounter [id number] 11[facility] [place] [facility] Outpatient Encounter [id number] 11/20 [facility] [place] En[facility] [id number] 11/21 [facility] OFF/OP EST MAY X REQ PHY/QHP [id number] Diagnos is: ICD-10- CM F41.9 Anxiety disorde r, unspeci fied Arnaud KRISHNAMURTHY 11/21 [facility] [place] OFFICE O/P EST HI 40 MIN [id number] Diagnos is: ICD-10- CM F41.0 Panic disorde r [episod ic paroxys mal anxiety ] OLIMPIA SEXTON MD 11/21 [facility] [place] [facility] [place] [facility] Inpatient Encounter [id number] Admit Reason: ANXIETY ,PANIC ATTACKS DESIRE MIRELES 11/21 Regular discharge from inpatient treatment. [facility] [place] [facility] [place] [facility] Inpatient Encounter [id number] 11/21 [facility] [place] [facility] ELECTROCAR DIOGRAM REPORT [id number] Diagnos is: ICD-10- CM Z13.6 Encount er for screeni ng for cardiov ascular disorde rs ARISTEO CAMPOS 11/21 [place] [facility] [place] [facility] OFFICE O/P EST SF 10 MIN [id number] Diagnos is: ICD-10- CM F41.0 Panic disorde r [episod ic paroxys mal anxiety ] ED BOB 11/21 [facility] [place] [facility] [place] [facility] Inpatient Encounter [id number] 11/22 [facility] [place] [facility] [place] OFFICE O/P EST SF 10 MIN [id number] Diagnos is: ICD-10- CM F41.0 Panic disorde r [episod ic paroxys mal anxiety ] ED BOB 11/22 [facility] [place] [facility] [place] OFFICE O/P EST SF 10 MIN [id number] Diagnos is: ICD-10- CM F41.0 Panic disorde r [episod ic paroxys mal anxiety ] ED BOB S 11/23 [facility] S[facility] HOSP IP/OBS HIGH 50 [id number] Diagnos is: ICD-10- CM F41.9 Anxiety disorde r, unspeci fied DESIRE MIRELES 11/24 [facility] [place] CASE MANAGEMENT [id number] Diagnos is: ICD-10- CM F41.0 Panic disorde r [episod ic paroxys mal anxiety ] MIKE GREGORIO N 11/24 [facility] S[facility] IP/OBS SF/LOW 25 [id number] Diagnos is: ICD-10- CM K21.9 Gastro- esophag eal reflux disease without esophag itis SWATI MARTE 11/24 [facility] [place] Inpatient Encounter [id number] 11/24 [facility] [place] SBSQ HOSP IP/OBS MODERATE 35 [id number] Diagnos is: ICD-10- CM F41.9 Anxiety disorde r, unspeci fied DESIRE MIRELES 11/25 [facility] [place] THERAPEUTI C ACTIVITIES [id number] Diagnos is: ICD-10- CM F41.9 Anxiety disorde r, unspeci fied PEREZ,ANGÉLICA A 11/25 [facility] GROUP THERAPEUTI C PROCEDURES [id number] Diagnos is: ICD-10- CM F41.9 Anxiety disorde r, unspeci fied PEREZ,ANGÉLICA A 11/25 [facility] In[facility] En[facility] [id number] 11/25 [facility] GROUP PSYCHOTHER APY [id number] Diagnos is: ICD-10- CM F12.288 Cannabi s depende nce with other cannabi s-induc ed disorde r MISHA SEAY SUMIT 11/25 [facility] ORAL FUNCTION THERAPY [id number] Diagnos is: ICD-10- CM K21.9 Gastro- esophag eal reflux disease without esophag itis MARJAN FERGUSON YN F 11/25 [facility] GROUP THERAPEUTI C PROCEDURES [id number] Diagnos is: ICD-10- CM F41.9 Anxiety disorde r, unspeci fied CHRIS,ANGÉLICA A 11/25 [facility] In[facility] En[facility] [id number] MARJAN FERGUSON YN F 11/25 [facility] CASE MANAGEMENT [id number] Diagnos is: ICD-10- CM F41.9 Anxiety disorde r, unspeci fied MIKE GREGORIO N N 11/25 [facility] SBSQ HOSP IP/OBS MODERATE 35 [id number] Diagnos is: ICD-10- CM F12.288 Cannabi s depende nce with other cannabi s-induc ed disorde r DESIRE MIRELES 11/26 [facility] CASE MANAGEMENT [id number] Diagnos is: ICD-10- CM F41.9 Anxiety disorde r, unspeci anetteed MIKE GREGORIO N N 11/26 [facility] GROUP PSYCHOTHER APY [id number] Diagnos is: ICD-10- CM F12.288 Cannabi s depende nce with other cannabi s-induc ed disorde r GEENA,EM SUMIT 11/26 [facility] PSYCHOTHER APY [id number] Diagnos is: ICD-10- CM F41.9 Anxiety disorde r, unspeci fied GEENA,EM SUMIT 11/26 [facility] S[facility] IP/OBS MODERATE 35 [id number] Diagnos is: ICD-10- CM F41.9 Anxiety disorde r, unspeci fied DESIRE MIRELES 11/27 [facility] GROUP PSYCHOTHER APY [id number] Diagnos is: ICD-10- CM F12.288 Cannabi s depende nce with other cannabi s-induc ed disorde r GEENA,MISHA SUMIT 11/27 [facility] CASE MANAGEMENT [id number] Diagnos is: ICD-10- CM F41.0 Panic disorde r [episod ic paroxys mal anxiety ] MIKE GREGORIO N N 11/27 [facility] GROUP PSYCHOTHER APY [id number] Diagnos is: ICD-10- CM F41.9 Anxiety disorde r, unspeci fied GEENA,EM SUMIT 11/27 [facility] SBSQ HOSP IP/OBS SF/LOW 25 [id number] Diagnos is: ICD-10- CM K21.9 Gastro- esophag eal reflux disease without esophag itis SWATI MARTE E 11/27 [facility] OFFICE O/P EST SF 10 MIN [id number] Diagnos is: ICD-10- CM F41.0 Panic disorde r [episod ic paroxys mal anxiety ] ED BOB S 11/28 [facility] OFFICE O/P EST LOW 20 MIN [id number] Diagnos is: ICD-10- CM F41.9 Anxiety disorde r, unspeci fied ELVIN STEEL SSICA E 11/29 [facility] In[facility] [id number] 11/29 [facility] En[facility] [id number] 11/30 [facility] 1ST HOSP IP/OBS MODERATE 55 [id number] Diagnos is: ICD-10- CM F41.9 Anxiety disorde r, unspeci fied DESIRE MIRELES 11/30 [facility] SBS[facility] HOS[facility] IP/OBS MODERATE 35 [id number] Diagnos is: ICD-10- CM F12.288 Cannabi s depende nce with other cannabi s-induc ed disorde r SWATI MARTE 11/30 [facility] En[facility] [id number] MIKE GREGORIO 12/01 [facility] [facility] En[facility] [id number] [facility] En[facility] [id number] 12/03 [facility] PSYTX W PT 30 MINUTES [id number] [id number] Diagnos is: ICD-10- CM F41.9 Anxiety disorde r, unspeci fied Adrian RAHMAN 12/06 [facility] En[facility] [id number] 12/06 [facility] En[facility] [id number] 12/07 [facility] En[facility] [id number] [id number] 12/07 [facility] Encounter [id number] [id number] 12/08 [facility] Encounter [id number] [id number] 12/08 [facility] PSYTX W PT 30 MINUTES [id number] [id number] Diagnos is: ICD-10- CM F41.0 Panic disorde r [episod ic paroxys mal anxiety ] Malini LEBLANC 12/10 [facility] OFFICE O/P EST MOD 30 MIN 09178-2.63 [id number].[id number] Diagnos is: ICD-10- CM N18.4 Chronic kidney disease , stage 4 (severe ) FARZANA BALDWIN 12/15 [place] [facility] Encounter [id number] [id number] 12/20 [facility] En[facility] [id number] [id number] 12/21 [facility] PSYTX W PT 30 MINUTES [id number] [id number] Diagnos is: ICD-10- CM F41.9 Anxiety disorde r, unspeci fied Malini LEBLANC 12/24 [facility] [place] MTMS BY PHARM ADDL 15 MIN [id number] [id number] 27 Diagnos is: ICD-10- CM R73.9 Hypergl ycemia, unspeci fied CHANDU,HILDA IE 01/03 [place] [facility] QNHP OL DIG ASSMT&MGMT 5-10 [id number] [id number] Diagnos is: ICD-10- CM R73.9 Hypergl ycemia, unspeci fied LOUIE WHITAKER J 01/03 [facility] Outpatient Encounter [id number] 01/03 [facility] Encounter [id number] [id number] Diagnos is: ICD-10- CM E78.5 Hyperli pidemia , unspeci fied NAKITA MARTIN CE 01/04 [facility] Encounter [id number] [id number] 01/12 [facility] Encounter [id number] [id number] Malini LEBLANC 01/12 [facility] OFFICE O/P [place] 60 MIN [id number] [id number] Diagnos is: ICD-10- CM N18.30 Chronic kidney disease , stage 3 unspeci fied Char SANDERS 01/18 [facility] Out[facility] Encounter [id number] [id number] 01/21 [facility] [place] OFF[place] O/P EST MOD 30 MIN [id number] [id number] Diagnos is: ICD-10- CM L60.0 Ingrowi ng CARLOS Washburn ES F 01/25 [place] [facility] Outpatient Encounter [id number] [id number] 01/26 [facility] MTMS BY PHARM ADDL 15 MIN [id number] 1BY.[id number] 09 Diagnos is: ICD-10- CM E11.9 Type 2 diabete s mellitu s without complic ations HILDA SCHOFIELD [facility] ASS[facility]/REAS SESSMENT 63886-5.63 [id number].[id number] 73 Diagnos is: ICD-10- CM Z72.0 Tobacco use LUCINA LUGO 02/01 [place] [facility] Outpatient Encounter [id number] 02/01 [facility] OFFICE O/P EST LOW 20 MIN [id number] [id number] Diagnos is: ICD-10- CM R11.2 Nausea with vomitin g, unspeci fied GAUNYA,CHR ISTOPHER M 02/02 [facility] Outpatient Encounter [id number] 02/03 [facility] PSYTX W PT 45 MINUTES 33470-9.63 1BY.[id number] 57 Diagnos is: ICD-10- CM Z72.0 Tobacco use LUCINA LUGO 02/08 [place] [facility] Outpatient Encounter [id number] 02/09 [facility] HC PRO PHONE CALL 5-10 MIN [id number] [id number] Diagnos is: ICD-10- CM F41.0 Panic disorde r [episod ic paroxys mal anxiety ] Malini LEBALNC M 02/10 [facility] Encounter [id number]/15 [facility] [place] OFF/OP EST MAY X REQ PHY/QHP [id number] 1BY.[id number] 22 Diagnos is: ICD-10- CM F41.9 Anxiety disorde r, unspeci fied RAULITO,ER IC K 02/15 [place] [facility] Out[facility] Encounter [id number] [id number]/15 [facility] Encounter [id number] [id number] 02/15 [facility] [place] OFF[place] O/P EST MOD 30 MIN [id number] [id number] Diagnos is: ICD-10- CM I10 Essenti al (primar y) hyperte nsBAM Bhagat 02/15 [place] [facility] Outpatient Encounter [id number] 02/15 [facility] Encounter [id number] [id number] 02/15 [facility] Out[facility] Encounter [id number] [id number] 02/16 [facility] [place] PSYTX W PT 60 MINUTES 32353-7.63 1BY.[id number] Diagnos is: ICD-10- CM Z72.0 Tobacco use LUCINA LUGO 02/22 [place] PSYTX W PT 45 MINUTES 98332-4.63 1BY.[id number] 86 Diagnos is: ICD-10- CM Z72.0 Tobacco use LUCINA LUGO 03/01 [place] [facility] Outpatient Encounter [id number] 03/01 [facility] [place] Outpatient Encounter [id number] [id number].[id number] 01 03/08 [place] MTMS BY PHARM ADDL 15 MIN 86007-2.63 1BY.[id number] 12 Diagnos is: ICD-10- CM R73.9 Hypergl ycemia, unspeci fied CHANDU,HILDA IE 03/08 [place] [facility] Outpatient Encounter [id number] 03/10 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 Outpatient Encounter [id number] 03/16 [facility] Outpatient Encounter [id number] 03/17 [facility] LD PSYTX W PT 45 MINUTES [id number] 1BY.[id number] 21 Diagnos is: ICD-10- CM Z72.0 Tobacco use YAO SEQUEIRA I 03/22 [facility] ACUPUNCT W/O STIMUL ADDL 15M [id number] [id number] Diagnos is: ICD-10- CM R11.2 Nausea with vomitin g, unspeci fied WILLIAN,CHR ISTOPHER M 03/24 [facility] Outpatient Encounter [id number] 03/25 [facility] UNLISTED SPEC DERM SVC/PX 35459-4.63 1BY. 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 Outpatient Encounter [id number] 03/31 [facility] Outpatient Encounter [id number] 03/31 [facility] [place] PSYTX W PT 45 MINUTES 36602-4.63 1BY.[id number] 56 Diagnos is: ICD-10- CM Z72.0 Tobacco use YAO SEQUEIRA I 04/05 [place] MTMS BY PHARM ADDL 15 MIN 51206-2.63 1BY.[id number] 13 Diagnos is: ICD-10- CM E11.9 Type 2 diabete s mellitu s without complic ations CHANDU,HILDA IE 04/05 [place] [facility] Outpatient Encounter [id number] [id number] 04/05 [facility] [place] PSYTX W PT 30 MINUTES [id number] 1BY.[id number] Diagnos is: ICD-10- CM Z72.0 Tobacco use LUCINA LUGO 04/11 [place] [facility] Outpatient Encounter [id number] 04/13 [facility] CASE MANAG[facility] [id number] [id number].[id number] 56 Diagnos is: ICD-10- CM F41.9 Anxiety disorde r, unspeci YOLANDA Costa 04/14 [facility] [place] [facility] OFFICE O/P EST MOD 30 MIN [id number] [id number] Diagnos is: ICD-10- CM N18.30 Chronic kidney disease , stage 3 unspeci Char Cuevas 04/19 [facility] [place] PSYTX W PT 30 MINUTES 85860-2.63 1BY.[id number] 10 Diagnos is: ICD-10- CM Z72.0 Tobacco use LUCINA LUGO 04/26 [place] [facility] ACUPUNCT W/O STIMUL ADDL 15M [id number] Diagnos is: ICD-10- CM F41.9 Anxiety disorde r, unspeci fied GAUNYA,CHR ISTOPHER M 04/27 [facility] [place] OFFICE O/P EST LOW 20 MIN [id number] 1BY.[id number] 90 Diagnos is: ICD-10- CM L60.0 Ingrowi ng nail ROSS,CHARL ES F 05/03 [place] [facility] Outpatient Encounter [id number] 05/04 [facility] [place] PSYTX W PT 30 MINUTES [id number] 1BY.[id number] 30 Diagnos is: ICD-10- CM Z72.0 Tobacco use DESTINEEROSASCARLET PEDERSENEL LETTY 05/10 [place] [facility] Out[facility] Encounter [id number] 1.05/18 [facility] [place] MTMS BY PHARM ADDL 15 MIN [id number] [id number] Diagnos is: ICD-10- CM E11.9 Type 2 diabete s mellitu s without complic ations HILDA SCHOFIELD IE 05/20 [place] PSYTX W PT 30 MINUTES 24858-7.63 [id number] Diagnos is: ICD-10- CM Z72.0 Tobacco use BRITTNEY LUCINA LETTY 05/31 [place] PSYTX W PT 30 MINUTES 37999-3.63 [id number].[id number] 78 Diagnos is: ICD-10- CM Z72.0 Tobacco use BRITTNEY LUCINA LETTY 06/14 [place] [facility] ACUPUNCT W/O STIMUL 15 MIN [id number] [id number] Diagnos is: ICD-10- CM F41.9 Anxiety disorde r, unspeci fied GAUNYA,[facility] ISTOPHER M 06/23 [facility] Outpatient Encounter [id number] [facility] [place] PSYTX W PT 30 MINUTES 28556-5.63 1BY. 63 Diagnos is: ICD-10- CM Z72.0 Tobacco use LUCINA LUGO 07/05 [place] [facility] Outpatient Encounter [id number] 1.07/13 [facility] Outpatient Encounter [id number] 1.07/13 [facility] Outpatient Encounter [id number] 1.07/13 [facility] Outpatient Encounter [id number] 1.07/14 [facility] Outpatient Encounter [id number] 1.07/18 [facility] [place]NAG[place] [id number] [id number] Diagnos is: ICD-10- CM F41.9 Anxiety disorde r, unspeci fiisaias LIUYOLANDA 07/19 [place] [facility] OFF/OP EST FEBRUARY X REQ PHY/QHP 77638-7.63 1. 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 OFFICE O/P EST LOW 20 MIN 34063-5.63 1. Diagnos is: ICD-10- CM M43.6 [place] BRENNA Barba 07/25 [facility] INFRARED THERAPY 98815-3.63 1. Diagnos is: ICD-10- CM M54.2 Cervica lgia GAUNYA,CHR ISTOPHER M 07/25 [facility] Outpatient Encounter [id number] 1.07/26 [facility] [place] OFFICE O/P EST LOW 20 MIN 65766-2.63 1BY. 42 Diagnos is: ICD-10- CM J20.9 Acute bronchi tis, unspeci FARZANA Mercer 07/28 [facility] Outpatient Encounter [id number] 1.07/28 [facility] [place] OFF/OP EST FEBRUARY X REQ PHY/QHP 80182-1.63 1BY. 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 Outpatient Encounter [id number] 08/02 [facility] [place] PSYTX W PT 30 MINUTES 02135-2.63 [id number] Diagnos is: ICD-10- CM Z72.0 Tobacco use LUCINA LUGO 08/03 [place] [facility] INFRARED THERAPY 31041-8.63 1. Diagnos is: ICD-10- CM F41.9 Anxiety disorde r, unspeci fied GAUNYA,CHR ISTOPHER M 08/05 [facility] ACUPUNCT W/O STIMUL 15 MIN [id number] [id number] Diagnos is: ICD-10- CM F41.9 Anxiety disorde r, unspeci fied GAUNYA,CHR ISTOPHER M 08/11 [facility] Outpatient Encounter [id number] 1.08/11 [facility] ACUPUNCT W/O STIMUL ADDL 15M [id number] [id number] Diagnos is: ICD-10- CM M50.123 Cervica l disc disorde r at C6-C7 level with radicul opathy GAUNYA,CHR ISTOPHER M 08/25 [facility] Outpatient Encounter [id number] 08/30 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 15 MIN 44293-5.63 1BY.[id number] 56 Diagnos is: ICD-10- CM E11.9 Type 2 diabete s mellitu s without complic ations CHANDU,HILDA IE 09/07 [place] OFFICE O/P EST LOW 20 MIN 50612-1.63 1BY.[id number] 95 Diagnos is: ICD-10- CM L60.0 Ingrowi ng nail ROSS,CHARL ES F 09/12 [place] [facility] ACUPUNCT W/O STIMUL ADDL 15M [id number] [id number] Diagnos is: ICD-10- CM M54.2 Cervica lgia GAUNYA,CHR ISTOPHER M 09/15 [facility] Out[facility] Encounter [id number] 09/15 [facility] Outpatient Encounter [id number] [id number] 09/17 [facility] [place] MTMS BY PHARM ADDL 15 MIN 19725-8.63 1BY.[id number] 71 Diagnos is: ICD-10- CM E11.9 Type 2 diabete s mellitu s without complic ations CHANDU,HILDA IE 09/20 [place] OFFICE O/P EST LOW 20 MIN 06094-1.63 [id number].[id number] 48 Diagnos is: ICD-10- CM I10 Essenti al (primar y) hyperte FARZANA Geiger 09/20 [place] PSYTX W PT 30 MINUTES 43321-3.63 1BY.[id number] 27 Diagnos is: ICD-10- CM Z72.0 Tobacco use LUCINA LUGO 01/02 /2025 [place] [facility] Out[facility] Encounter [id number] [id number]/18 [facility] OFF[facility] O/P EST MOD 30 MIN [id number] [id number] Diagnos is: ICD-10- CM N18.30 Chronic kidney disease , stage 3 unspeci fied Char SANDERS A 10/18 [facility] Out[facility] En[facility] [id number] [id number] 10/21 [facility] ACUP 1/> W/O ESTIM EA ADD 15 [id number] [id number] Diagnos is: ICD-10- CM R10.9 Unspeci fied abdomin al pain WILLIAN,[facility] ISTOPHER M 11/07 [place] [facility] [place] PSYTX W PT 30 MINUTES 57377-4.63 1BY.[id number] Diagnos is: ICD-10- CM Z72.0 Tobacco use LUCINA LUGO 11/08 [facility] [place] OFFICE O/P EST MOD 30 MIN 13262-2.63 1BY.[id number] 06 Diagnos is: ICD-10- CM E11.9 Type 2 diabete s mellitu s without complic ations FARZANA BALDWIN 11/15 [place] [facility] ACUP 1/> W/O ESTIM EA ADD 15 [id number] 1. Diagnos is: ICD-10- CM M54.2 Cervica lgia WILLIAN,CHR ISTOPHER M 12/05 [facility] [place] PSYTX W PT 30 MINUTES [id number] [id number] Diagnos is: ICD-10- CM Z72.0 Tobacco use DESTINEEROSALUCINA PEDERSEN 12/08 [place] [facility] Out[facility] Encounter [id number] [id number] 12/08 [facility] Encounter [id number] [id number]/13 [facility] Out[facility] Encounter [id number] [id number] 12/14 [facility] Out[facility] Encounter [id number] [id number] 12/19 [facility] [place] OFFICE O/P EST LOW 20 MIN [id number] Diagnos is: ICD-10- CM R11.0 Nausea FARZANA BALDWIN 12/19 [facility] [place] [place] Out[place] Encounter [id number] 12/19 [facility] ADDL 15 MIN [id number] Diagnos is: ICD-10- CM E11.9 Type 2 diabete s mellitu s without complic ations HILDA SCHOFIELD IE 12/19 [place] [facility] Out[facility] Encounter [id number] 12/19 [facility] OFFICE O/P NEW LOW 30 MIN [id number] Diagnos is: ICD-10- CM Z85.828 Persona l history of other maligna nt neoplas m of skin RACHELL MALDONADO 12/28 [facility] ACUP 1/> W/O ESTIM EA ADD 15 [id number] Diagnos is: ICD-10- CM M54.2 Cervica lgia ARCELIAUNYA,CHR ISTOPHER M 01/09 [place] [facility] [place] Outpatient Encounter [id number] 01/11 [facility] [place] [place] [facility] [place] O/P EST LOW 20 MIN [id number] Diagnos is: ICD-10- CM L60.0 Ingrowi ng nail CARLOS BRIGHT ES F 01/12 [facility] MINUTES [id number] Diagnos is: ICD-10- CM F17.210 Nicotin e depende nce, cigaret maria fernanda, uncompl icated LAUDERMITH ,LUCINA LETTY 01/26 [facility] [place] [facility] [place] [facility] Outpatient Encounter [id number] 01/30 [place] [facility] [place] [place] [facility] [place] [facility] Outpatient Encounter [id number] 02/01 [place] [facility] [place] [facility] Social History Combined list of available smoking, tobacco, and other social history from [facility] and [facility] facilities. Social History Type Response Date Comment Sour e Tobacco smoking status VAIS VA-TOBACCO USER EVERY DAY 12/16/2023 [place] History of tobacco use VA-TOBACCO USE 30 YEARS OR MORE 12/16/2023 [place] History of tobacco use VA-TOBACCO USER EVERY DAY 01/13/2023 [place] History of tobacco use VA-TOBACCO FORMER USER 07/03/2022 [facility] History of tobacco use VA-TOBACCO USER SOME DAYS 07/04/2021 [place] History of tobacco use SD-TOBACCO QUIT 5 TO < 15 YRS 04/30/2020 [place] History of tobacco use VA-TOBACCO FORMER USER 12/21/2018 [facility] History of tobacco use CURRENT SMOKER 11/24/2017 cigarets [place] History of tobacco use CURRENT SMOKER 03/25/2017 down to 10 cigarette s daily [place] History of tobacco use CURRENT SMOKER 03/04/2017 advise stopm [place] History of tobacco use V1-PT NOT INTERESTED IN QUIT TOBACCO USE 07/22/2016 [place] History of tobacco use CURRENT SMOKER 11/21/2015 half a pack a day [place] History of tobacco use CURRENT SMOKER 11/23/2014 [place] History of tobacco use CURRENT SMOKER 12/16/2013 3/4 pack a day [place] Plan of Care List of future care activities from [facility] facilities. Additional future care activities may be listed in the Assessment and Plan section. Date/Time Care Activity Care Activity Detail Facili ty 02/08/2025 AMBULATORY - MEDICINE AMBULATORY - MEDICI [facility] [place] [facility] Advance Directives List of completed, amended, or rescinded Advance Directives on record at [facility] facilities. An actual copy of the Directive is not included. Date Advance Directive Provider Source 12/12/2014 [employer] DIRECTIVE KATRIN GREEN
--- OUTSIDE RECORDS SUMMARY | 2025-02-01 16:06 | XMS_ITS | Clinical Summary ---
Author Organization [employer] Address [address] [place] [address] [address] [place] [address] Care Team Providers Care [employer] C[employer] Developer Name Role Phone Unavailable Primary Care Provider Unavailabl e Allergies Active Allergy Reactions Criticality Noted Date Comments Codeine Dizziness 09/10/2017 Medications ASPIRIN 81 PO 1 tablet DAILY (route: oral) 2 Active albuterol 108 (90 Base) MCG/ACT inhaler Inhale 2 puffs every 6 (six) hours if needed. Active aspirin 81 MG EC tablet Take 81 mg by mouth in the morning. Active atorvastatin (Lipitor) 20 MG tablet Take 20 mg by mouth in the morning. 4 Active busPIRone (Buspar) 5 MG tablet Take 5 mg by mouth 2 times daily. 1 Active clonazePAM (KlonoPIN) 1 MG tablet Take 1 mg by mouth if needed in the morning, at noon, and at bedtime. 4 Active OLANZapine (ZyPREXA) 5 MG tablet Take 1 tablet by mouth 2 times daily. 3 Active ondansetron ODT (Zofran-ODT) 4 MG disintegrating tablet Take 4 mg by mouth every 6 (six) hours if needed. Active metFORMIN (Glucophage) 500 MG tablet 250 mg. 3 Active nicotine (Nicoderm, Step 1) 21 MG/24HR patch Place 1 patch on the skin at bed time. Active venlafaxine XR (Effexor XR) 150 MG 24 hr tablet Take 112.5 mg by mouth in the morning. Active traZODone (Desyrel) 50 MG tablet Take 50 mg by mouth. 3 Active propranolol (Inderal) 10 MG tablet Take 10 mg by mouth 2 times daily. 4 Active omeprazole (PriLOSEC) [address] capsule Take 20 mg by mouth. 3 Active venlafaxine XR (Effexor XR) 150 MG 24 hr capsule Take 1 capsule by mouth in the morning. 3 Active haloperidol (Haldol) 5 MG tablet Take 5 mg by mouth if needed each day. Active folic acid (Folvite) 1 MG tablet Take 1 mg by mouth in the morning. Active famotidine (Pepcid) 10 MG tablet Take 10 mg by mouth if needed at bedtime. Active semaglutide (Ozempic, 0.25 or 0.5 MG/DOSE,) 2 MG/1.5ML solution pen-injector Inject under the skin. Active varenicline (Chantix) 1 MG tablet Take 1 mg by mouth. 4 Active fenofibrate (Tricor) 145 MG tablet Take 1 tablet by mouth Once per day. 4 Active Active Problems Problem Noted Date Diagnosed Date Dental calculus 09/16/2024 Periodontal disease 09/16/2024 Missing teeth, acquired 09/16/2024 Generalized gingival recession 09/16/2024 Retained dental root 05/26/2024 Non-restorable tooth 05/26/2024 Partial edentulism 07/17/2023 Dental caries 04/21/2023 Social History Tobacco Use Types Packs/Day Years Used Date Smoking Tobacco: Former Cigarettes 0.3 0.5 Passive Smoke Exposure: Past Smokeless Tobacco: Former Tobacco Cessation:Counseling Given: Not Answered Alcohol Use Standard Drinks/Week Comments Never 0 (1 standard drink = 0.6 oz pur e alcohol) Sex and Gender Information Value Date Recorded Sex Assigned at Male 08/04/2022 10:16 AM EDT Legal Sex Male 10:16 AM EDT Gender Identity Male 08/04/2022 10:16 AM EDT Sexual Orientation Straight 08/04/2022 10 :16 AM EDT Last Filed Vital Signs Vital Sign Reading Time Taken Comments Blood Pressure 128/86 09/16/2024 11:06 AM EST Pulse - - Temperature - - Respiratory Rate - - Oxygen Saturation - - Inhaled Oxygen Concentration - - Weight - - Height - - Body Mass Index - - Plan of Treatment Upcoming Encounters Date Type Department Care Team (Late st Contact Info) Description 03/08/2025 9:00 AM EDT Office Visit [facility] [address] [place] [address] Gabby Jarquin [address] [place] [address] Health Maintenance Due Date Last Done Comments CT Colonography 1961 Colonoscopy 1961 Colorectal Cancer Screening 1961 Depression Screening 1961 FIT DNA/Cologuard 1961 FIT 1961 FOBT 1961 HIV Screening 1961 Lipid Panel 1961 SDOH Screening 1961 Sigmoidoscopy 1961 Alcohol/Substance Use Screening 1973 Hepatitis C Screening 1979 Hepatitis A Vaccines (1 of 2 - Risk 2-dose series) 1980 Hepatitis B Vaccines (1 of 3 - Risk 3-dose series) 2021 RSV Patients and Patients Aged 60 years or older (1 - Risk 60-74 years 1-dose series) 2021 DTaP/Tdap/Td Vaccines (2 - Tdap) 03/20/2024 03/20/2014 COVID-19 Vaccine ( season) 2024 10/21/2022, 09/17/2021, 01/14/2021, Additional history exists Dental Oral Exam 06/06/2024 12/04/2023, 06/2021, 07/28/2019, Additional history exists Dental X-Ray: Bitewings 12/04/2024 12/04/19, 04/14/2022, 11/13/2020, Additional history exists Dental Prophylaxis 03/18/2025 09/16/2024, 0 01/14/2024, 06/24/2021, Additional history exists Dental X-Ray: Full Mouth 04/15/2025 04/14/2022, 04/0 03/2015 Tobacco Screening 09/16/2025 09/16/2024 Pneumococcal Vaccine: 50+ Years (3 of 3 - PCV20 or PCV21) 12/13/2026 12/13/2021, 07/22/2016, 11/26/2015 Zoster Vaccines Completed 03/01/2019, 11/03/2018 Influenza Vaccine Completed 09/20/2024, , 07/03/2022, Additional history exists HIB Vaccines Aged Out No longer eligi ble based on patient's age to complete this topic HPV Vaccines Aged Out No longer eligi ble based on patient's age to complete this topic IPV Vaccines Aged Out No longer eligi ble based on patient's age to complete this topic Meningococcal Vaccine Aged Out No elizabeth adeline eligible based on patient's age to complete this topic RSV under 20 months Aged Out No longe r eligible based on patient's age to complete this topic Rotavirus Vaccines Aged Out No longer eligible based on patient's age to complete this topic Procedures Procedure Name Priority Date/Time Associated Diagnosis Comments PROPHYLAXIS - ADULT Routine 09/16/2024 1 1:00 AM EST Dental calculus Periodontal disease BITEWINGS - 4 RADIOGRAPHIC IMAGES Routine 12/04/2023 1:00 PM EST PERIODIC ORAL EVALUATION - ESTABLISHED PATIENT Routine 12/04/2023 1:00 PM EST INTRAORAL - COMPLETE SERIES OF RADIOGRAPHIC IMAGES Routine 04/14/2022 12:00 AM EDT from Last 3 Months or Most Recently Relevant to Health Maintenance Insurance * Guarantor: Quintin Lindo Account Type Relation to Patient Date of Phone Billing Address Dental Self [address] [place] [address] [place] [id number] DENTAL - HSN FULL (MEDICAID) * Guarantor: Quintin Lindo Account Type Relation to Patient Date of Phone Billing Address Personal/Family Self [address] [place] [address] [place] [id number] [place] [id number] [place] [phone]
[2025-02-01 16:12] LABS: Erythrocyte Sedimentation Rate 7 MM/HR (0-15)
== END 2025-02-01 16:05 | disposition home or self-care (01) ==
PROVIDERS: Emergency Provider Emergency Medicine; PCP Physician Assistant Medical
DX: R60.0 Localized edema (principal); L03.115 Cellulitis of right lower limb; E11.9 Type 2 diabetes mellitus without complications; I10 Essential (primary) hypertension; E78.5 Hyperlipidemia, unspecified; F12.10 Cannabis abuse, uncomplicated; Z87.891 Personal history of nicotine dependence; Z79.82 Long term (current) use of aspirin; Z79.02 Long term (current) use of antithrombotics/antiplatelets; Z79.899 Other long term (current) drug therapy
CPT/HCPCS: 36415; 80053; 83605; 85025; 85652; 86140; 87040; 93970; 99282; 99284

== ENCOUNTER → 2025-02-01 14:45 | Outpatient (BNV) | payer OTHER, SELFPAY | PROVIDERS: Emergency Provider Emergency Medicine; PCP Physician Assistant Medical; Visit Provider Radiology Diagnostic Radiology | DX: R22.43 Localized swelling, mass and lump, lower limb, bilateral (principal) | CPT/HCPCS: 93970 ==

== ENCOUNTER 2025-06-07 17:40 | Emergency (ER) | payer OTHER, SELFPAY ==
--- OUTSIDE RECORDS SUMMARY | 2024-06-14 11:30 | XMS_ITS | Encounter Summary ---
Author Name [facility] [place] [facility] [place] Address [address] [place] [address] Care Team Providers Care Flying I Instructor Name Role Phone AUSTIN BALDWIN Primary [facility] Insurance Providers: All historical and current Section Date Range: From patient's date of to the date document was created. This section includes the names of all active insurance providers for the patient. Insurance Provider Type of Coverage Plan Name Start of Policy Coverage End of Policy Coverage Group Number Member ID Insurance Provider's Telephone Number Policy Lomas's Name Patient's Relationship to Policy Lomas PATRICIO MULLIGAN-ESME R [place] SPECIAL CLASS PATRICIO ERICKSON Nov 14, 2024 PATRICIO MULLIGAN [id number] Dougie RIVERA PATIENT [facility] MEDICAID MEDICAID MEDIC AID Oct 05, 2016 MEDICAI D [id number] NICOLE,A NALLELY PATIENT MEDICAID MEDICAID [facility] Oct 05, 2014 MEDICAI D [id number] Dougie RIVERA NALLELY PATIENT MEDICARE (WNR) MEDICARE (M) PART A May 05, 2018 PART A [id number] [facility] Dougie RIVERA NALLELY PATIENT MEDICARE (WNR) MEDICARE (M) PART B May 05, 2018 PART B [id number] Dougie RIVERA PATIENT Selected Encounter This section includes the information on record at [place] for the Encounter. Date/Time Encounter Type Encounter Description Reason Provider Source Jun 14, 2024 03:30 PM PSYTX W PT 30 MINUTES PRIMARY CARE/MEDICINE ICD-10-CM Z72.0 Tobacco use SCARLET LUGO Nancy Encounter Template Text not used by [place] Assessments - Encounter Diagnoses This section includes the primary and secondary diagnoses documented for the Encounter. Date/Time Primary/Secondary Diagnosis Diagnosis Name Provider Source Jun 14, 2024 03:35 PM PRIMARY Tobacco use LUCINA LUGO [place] Plan of Treatment: Future Appointments (+ 6 months) and Future Tests (+/- 45 days) The Plan of Treatment section includes future care activities for the [facility] This section includes future appointments and future orders which are active, pending or scheduled. Future Appointments This section includes appointments that were scheduled to occur 6 months from the date of the Encounter, up to a maximum of 20 appointments. The data comes from all [place] treatment facilities. Appointment Date/Time Appointment Type Appointme nt Facility Name Jun 23, 2024 09:00 AM AMBULATORY - MEDICINE [place] [facility] [place] [facility] Jul 05, 2024 03:30 PM AMBULATORY - MEDICINE [place] [facility] [place] [facility] Jul 15, 2024 11:30 AM AM[facility]ATORY - MEDICINE [facility] Jul 25, 2024 09:30 AM AMBULATORY - MEDICINE [place] [facility] [place] [facility] Jul 25, 2024 10:00 AM AMBULATORY - MEDICINE [place] [facility] [place] [facility] Jul 25, 2024 11:00 AM AMBULATORY - MEDICINE [facility] [place] [facility] Jul 28, 2024 09:30 AM AM[facility]ULATORY - MEDICINE [facility] Jul 28, 2024 10:00 AM AMBULATORY - MEDICINE [facility] Jul 29, 2024 03:00 PM AMBULATORY - MEDICINE [facility] [place] [facility] Aug 03, 2024 03:30 PM AMBULATORY - MEDICINE [place] [facility] [place] [facility] Aug 05, 2024 08:30 AM AMBULATORY - MEDICINE [place] [facility] [place] [facility] Aug 11, 2024 08:30 AM AMBULATORY - MEDICINE [place] [facility] [place] [facility] Aug 25, 2024 09:00 AM AMBULATORY - MEDICINE [facility] [place] [facility] Sep 07, 2024 10:00 AM AMBULATORY - MEDICINE [place] [facility] [place] [facility] Sep 07, 2024 03:00 PM AMBULATORY - MEDICINE [facility] [place] [facility] Sep 12, 2024 09:00 AM AMBULATORY - MEDICINE [facility] Sep 15, 2024 08:45 AM AMBULATORY - MEDICINE [place] [facility] [place] [facility] Sep 20, 2024 09:30 AM AMBULATORY - MEDICINE [facility] Sep 20, 2024 10:30 AM AMBULATORY - MEDICINE [facility] Oct 06, 2024 10:00 AM AMBULATORY - MEDICINE [place] [facility] [place] [facility] Social History: Smoking Status (Most current) and Tobacco Use (All prior to encounter date) This section includes the most current, and the historical, smoking and tobacco- related health factors from the [place] facility where the Encounter took place. Current Smoking Status This section includes the most current smoking, or tobacco-related health factor, from the [place] facility where the Encounter took place. Date/Time Current Smoking Status Comment Facil [facility] Dec 16, 2023 10:00 AM VA-TOBACCO USER EVERY DAY [place] Tobacco Use History This section includes a history of the smoking, or tobacco-related health factors, that were collected on or before the date of the Encounter. The data comes from the [place] facility where the Encounter took place. Date/Time Smoking Status/Tobacco Use Comment F acility Dec 16, 2023 10:00 AM VA-TOBACCO USE > 1 5 LESS THAN 30 YEARS [place] Dec 16, 2023 10:00 AM VA-TOBACCO USE 30 YEARS OR MORE [place] Dec 16, 2023 10:00 AM VA-TOBACCO USE ADVICE [place] Dec 16, 2023 10:00 AM VA-TOBACCO USE SOFTWARE DEVELOPMENT INTERN NO [place] Dec 16, 2023 10:00 AM VA-TOBACCO USE SOFTWARE DEVELOPMENT INTERN YES [place] Dec 16, 2023 10:00 AM VA-TOBACCO USE MED NO [place] Dec 16, 2023 10:00 AM VA-TOBACCO USE MED YES [place] Dec 16, 2023 10:00 AM VA-TOBACCO USE WI 30 MIN OF WAKEUP [place] Dec 16, 2023 10:00 AM VA-TOBACCO USER EVERY DAY [place] Jan 13, 2023 02:00 PM VA-TOBACCO USE 1 T O < 5 YEARS [place] Jan 13, 2023 02:00 PM VA-TOBACCO USE ADVICE [place] Jan 13, 2023 02:00 PM VA-TOBACCO USE SOFTWARE DEVELOPMENT INTERN NO [place] Jan 13, 2023 02:00 PM VA-TOBACCO USE MED NO [place] Jan 13, 2023 02:00 PM VA-TOBACCO USE WI 30 MIN OF WAKEUP [place] Jan 13, 2023 02:00 PM VA-TOBACCO USER EVERY DAY [place] Jul 03, 2022 09:00 AM VA-TOBACCO FORMER USER [place] Jul 03, 2022 09:00 AM VA-TOBACCO QUIT 5 TO < 15 YRS [place] Jul 04, 2021 09:00 AM VA-TOBACCO USE > 1 5 LESS THAN 30 YEARS [place] Jul 04, 2021 09:00 AM VA-TOBACCO USE ADVICE [place] Jul 04, 2021 09:00 AM VA-TOBACCO USE SOFTWARE DEVELOPMENT INTERN NO [place] Jul 04, 2021 09:00 AM VA-TOBACCO USE MED NO [place] Jul 04, 2021 09:00 AM VA-TOBACCO USE WI 30 MIN OF [facility] Jul 04, 2021 09:00 AM VA-TOBACCO USER SOME DAYS [place] Apr 30, 2020 10:39 AM VA-TOBACCO FORMER USER [place] Apr 30, 2020 10:39 AM VA-TOBACCO QUIT 5 TO < 15 YRS [place] Dec 21, 2018 03:15 PM VA-TOBACCO FORMER USER [place] Dec 21, 2018 03:15 PM VA-TOBACCO QUIT 1 TO < 5 YRS [place] Nov 24, 2017 09:54 AM CURRENT SMOKER cigarrufina [place] Nov 24, 2017 09:54 AM V1-PT READY TO SHARAN T TOBACCO USE [place] Mar 25, 2017 01:57 PM CURRENT SMOKER down to 10 cigarettes daily [place] Mar 25, 2017 01:57 PM V1-PT DECLINES TOB ACCO CESSATION MEDS [place] Mar 25, 2017 01:57 PM V1-PT READY TO SHARAN T TOBACCO USE [place] March 04, 2017 02:38 PM CURRENT SMOKER advise stopm [place] Jul 22, 2016 09:29 AM V1-PT NOT INTEREST ED IN QUIT TOBACCO USE [place] Nov 21, 2015 09:21 AM CURRENT SMOKER half a pack a day [place] Nov 21, 2015 09:21 AM V1-PT NOT INTEREST ED IN QUIT TOBACCO USE [place] Nov 23, 2014 08:51 AM CURRENT SMOKER [facility] Nov 23, 2014 08:51 AM V1-PT READY TO SHARAN T TOBACCO USE [place] Dec 16, 2013 02:19 PM CURRENT SMOKER 3/4 pack a day [place] Dec 16, 2013 02:19 PM V1-PT THINKING ABO UT QUIT TOBACCO USE [place] Advance Directives: All historical and current Section Date Range: From patient's date of to the date document was created. This section includes ALL of a patient's completed or amended VA Advance and Rescinded Directives. The entries below indicate that a directive exists for the patient, but an actual copy is not included with this document. The data comes from all [place] facilities. Date Advance Directives Provider Source Dec 12, 2014 ADVANCE DIRECTIVE KATRIN GREENEDILMA Conner Encounter Notes: All associated encounter notes This section contains the clinical notes associated to the Encounter. Date/Time Encounter Note(s) Provider Source Jun 16, 2024 10:48 AM ADDENDUM: LOCAL TITLE: Addendum STANDARD TITLE: ADDENDUM DATE OF NOTE: JUN 16, 2024@10:48:54 ENTRY DATE: JUN 16, 2024@10:48:55 AUTHOR: LUCINA LUGO COSIGNER: URGENCY: STATUS: COMPLETED alerting PharmD that is now at 0 cigs (for last 12 days). He will likely need a refill on chantix before our next visit. thank you! alerting amsa to rtc in chart. please send vvc link too /karlene/ Lucina Lugo, PhD Clinical Psychologist Signed: 06/16/2024 10:49 Receipt Acknowledged By: 06/17/2024 08:13 /karlene/ Swapnil Newman PharmD Clinical Pharmacy Practitioner 06/16/2024 13:33 /karlene/ JERAMY MASON Advanced Skid Man --- Original Document --- 06/14/24 TOBACCO CESSATION NOTE: [place] Video Connect (VVC) Standard Documentation V[facility] Clinician Resources Only: E911 (Emergency Call Relay Center): [phone] [facility] Crisis Line - 988 then press #1. [facility] Suicide Coordinator ? [phone], Ext. [phone]; Back-up Ext. [phone] [place] Police, Dianelys CORADO ? [phone] Introduction: Visit is being conducted by [place] Video Connect. identified with 2 identifiers: [X] Full Name [X] Date of [ ] VA ID Card Emergency Plan: confirmed and/or provided the following information in case of emergency or technology failure. PATIENT PHONE - PHONE NUMBER [CELLULAR] - Is patient phone number correct, if not, enter below: [place]'s phone number: ANGELA RIVERA [address] [facility] [address], [place], [address] [place]'s present location and address for appointment: home 's emergency contact name and phone number: chart reported that location is private and safe: Yes Informed Consent: informed of the risks and benefits of Telehealth video care. has the right to refuse video services. If refuses video visit, a [id number]-hg-[id number] visit will be scheduled. verbalized consent for this video visit: Yes provided consent for any other persons present for visit: N/A If yes, who and relationship to patient: Secure visit: Visit was locked for security and privacy:Yes Smoking Cess f/u DATE: 06/14/24 DURATION OF COUNSELIN min DX: tobacco use disorder, mod REASON FOR ENCOUNTER: attended session for smoking cessation. SUMMARY OF SESSION: Current Session focused on AARM Strategy for coping with smoking triggers, coping with high risk situations, identifying and counteracting resumption thoughts, and how to cope with a smoking slip. Day 12 of not smoking. He is not thinking of smoking and therefore his urges are not substantial. When he thinks of smoking he thinks about coughing. He has saved $120 already. He had a dream he had smoked and he was really sad. He would not want to go through quitting again. He doesn't want to quit again. He is spending money on food - trying to be healthy. He is taking ozempic as well. No cigrettes in the home. He is avoiding going to buy them or not have the money in his pocket to buy them. He is going to the [employer] on Thursday. He notes he will be to busy to want a cig. He is telling people that he has quit. Told some family members and associates. INTERVENTIONS: Psychoeducation regarding AARM (avoiding, altering, replacing, and mentally coping) with triggers was discussed. Discussed smoking slips and what actions to take if this occurs. MENTAL STATUS: [place] was oriented x3, mental status was WNL. No behavioral, perceptual or thought disturbances reported or observed. No concerns. CURRENT IMPRESSION OF LETHALITY RISK / PLAN FOR RISK MANAGEMENT: No thoughts, intent or plan to harm self or others was reported. No imminent risk reported. IMPRESSIONS: [place] is taking chanitx. No longer smoking PLAN: 1) will return on 07/05 at 330pm via VVC 2) continue chantix-- need renewl 1MG ORAL BID -- ask for renewl [employer] COACHING SKILLS Coaching or Motivational Interviewing skills used. /es/ Lucina Lugo, PhD Clinical Psychologist Signed: 06/16/2024 10:40 LUCINA LUGO [place] Jun 14, 2024 03:31 PM SMOKING CESSATION NOTE: LOCAL TITLE: TOBACCO CESSATION NOTE STANDARD TITLE: SMOKING CESSATION NOTE DATE OF NOTE: JUN 14, 2024@15:31 ENTRY DATE: JUN 14, 2024@15:31:53 AUTHOR: LUCINA LUGO EXP COSIGNER: URGENCY: STATUS: COMPLETED TOBACCO CESSATION NOTE Has ADDENDA [place] [facility] Connect ([facility]) Standard Documentation [facility]VC Clinician Resources Only: E911 (Emergency Call Relay Center): [phone] [facility] Crisis Line - 988 then press #1. [facility] Suicide Coordinator ? [phone], Ext. [phone]; Back-up Ext. [phone] [place] Police, Dianelys CORADO ? [phone] Introduction: Visit is being conducted by [place] Video Connect. [place] identified with 2 identifiers: [X] Full Name [X] Date of [ ] VA ID Card Emergency Plan: confirmed and/or provided the following information in case of emergency or technology failure. PATIENT PHONE - PHONE NUMBER [CELLULAR] - Is patient phone number correct, if not, enter below: 's phone number: ANGELA RIVERA [address] [facility] [address], [place], [address] 's present location and address for appointment: home 's emergency contact name and phone number: chart reported that location is private and safe: Yes Informed Consent: informed of the risks and benefits of Telehealth video care. has the right to refuse video services. If refuses video visit, a [id number] visit will be scheduled. verbalized consent for this video visit: Yes provided consent for any other persons present for visit: N/A If yes, who and relationship to patient: Secure visit: Visit was locked for security and privacy:Yes Smoking Cess f/u DATE: 06/14/24 DURATION OF COUNSELIN min DX: tobacco use disorder, mod REASON FOR ENCOUNTER: [place] attended session for smoking cessation. SUMMARY OF SESSION: Current Session focused on AARM Strategy for coping with smoking triggers, coping with high risk situations, identifying and counteracting resumption thoughts, and how to cope with a smoking slip. Day 12 of not smoking. He is not thinking of smoking and therefore his urges are not substantial. When he thinks of smoking he thinks about coughing. He has saved $120 already. He had a dream he had smoked and he was really sad. He would not want to go through quitting again. He doesn't want to quit again. He is spending money on food - trying to be healthy. He is taking ozempic as well. No cigrettes in the home. He is avoiding going to buy them or not have the money in his pocket to buy them. He is going to the [employer] on Thursday. He notes he will be to busy to want a cig. He is telling people that he has quit. Told some family members and associates. INTERVENTIONS: Psychoeducation regarding AARM (avoiding, altering, replacing, and mentally coping) with triggers was discussed. Discussed smoking slips and what actions to take if this occurs. MENTAL STATUS: [place] was oriented x3, mental status was WNL. No behavioral, perceptual or thought disturbances reported or observed. No concerns. CURRENT IMPRESSION OF LETHALITY RISK / PLAN FOR RISK MANAGEMENT: No thoughts, intent or plan to harm self or others was reported. No imminent risk reported. IMPRESSIONS: is taking chanitx. No longer smoking PLAN: 1) [place] will return on 07/05 at 330pm via VVC 2) continue chantix-- need renewl 1MG ORAL BID -- ask for renewl [employer] COACHING SKILLS Coaching or Motivational Interviewing skills used. /karlene/ Lucina Lugo PhD Clinical Psychologist Signed: 06/16/2024 10:40 06/16/2024 ADDENDUM STATUS: COMPLETED alerting PharmD that [place] is now at 0 cigs (for last 12 days). He will likely need a refill on chantix before our next visit. thank you! alerting amsa to rtc in chart. please send vvc link too /karlene/ Lucina Lugo, PhD Clinical Psychologist Signed: 06/16/2024 10:49 Receipt Acknowledged By: * AWAITING SIGNATURE * SWAPNIL NEWMAN * AWAITING SIGNATURE * JERAMY MASON ARIEL LYNN [place]
--- OUTSIDE RECORDS SUMMARY | 2024-06-23 05:00 | XMS_ITS | Encounter Summary ---
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 [employer] Name Role Phone AUSTIN BALDWIN Primary Care Provider Unavailabl e Insurance Providers: All historical and current [...] Name Patient's Relationship to Policy Lomas PATRICIO MULLIGAN-WN R [place] SPECIAL CLASS PATRICIO ERICKSON Nov 14, 2024 PATRICIO MULLIGAN [id number] NICOLE,A NALLELY PATIENT [facility] MEDICAID MEDICAID MEDIC AID Oct 05, 2016 MEDICAI D [id number] NICOLE,A NALLELY PATIENT MEDICAID MEDICAID [facility] Oct 05, 2014 MEDICAI D [id number] NICOLE,Dougie NALLELY PATIENT MEDICARE (WNR) MEDICARE (M) PART B May 05, 2018 PART B [id number] [id number] Dougie RIVERA NALLELY PATIENT MEDICARE (WNR) MEDICARE (M) PART A May 05, 2018 PART A [id number] Dougie RIVERA PATIENT Selected Encounter This section includes the information on record at [place] for the Encounter. Date/Time Encounter Type Encounter Description Reason Provider Source Jun 23, 2024 09:00 AM ACUPUNCT W/O STIMUL 15 MIN CI TREATMENT ICD-10-CM F41.9 Anxiety disorder, unspecified NAVEED ALFARO E Encounter Template Text not used by [place] Assessments - Encounter Diagnoses This section includes the primary and secondary diagnoses documented for the Encounter. Date/Time Primary/Secondary Diagnosis Diagnosis Name Provider Source Jun 23, 2024 09:44 AM PRIMARY Anxiety disorder, unspecified NAVEED ALFARO PHER M [facility] Jun 23, 2024 09:44 AM SECONDARY Panic disorder [episodic paroxysmal anxiety] NAVEED ALFARO PHER M [facility] Jun 23, 2024 09:44 AM SECONDARY Tobacco use NAVEED ALFARO PHER M [facility] Plan of Treatment: Future Appointments (+ 6 months) and Future Tests (+/- 45 days) The Plan of Treatment section includes future care activities for the patient from all [facility]. This section includes future appointments and future orders which are active, pending or scheduled. Future Appointments This section includes appointments that were scheduled to occur 6 months from the date of the Encounter, up to a maximum of 20 appointments. The data comes from all [place] treatment facilities. Appointment Date/Time Appointment Type Appointme nt Facility Name Jul 05, 2024 03:30 PM AMBULATORY - MEDICINE [facility] Jul 15, 2024 11:30 AM [facility] Jul 25, 2024 09:30 AM AMBULATORY - MEDICINE [facility] Jul 25, 2024 10:00 AM AMBULATORY - MEDICINE [facility] Jul 25, 2024 11:00 AM AMBULATORY - MEDICINE [facility] Jul 28, 2024 09:30 AM [facility]ORY [facility] Jul 28, 2024 10:00 AM AM[facility]ULATORY - MEDICINE [facility] Jul 29, 2024 03:00 PM AMBULATORY - MEDICINE [facility] Aug 03, 2024 03:30 PM [facility]ULATORY [facility]ICINE [facility] Aug 05, 2024 08:30 AM [facility]UL[facility]ORY [facility]INE [facility] Aug 11, 2024 08:30 AM [facility]UL[facility]ORY [facility]INE [facility] Aug 25, 2024 09:00 AM [facility]UL[facility]ORY [facility]ICINE [facility] Sep 07, 2024 10:00 AM AM[facility]ULATORY - MEDICINE [facility] Sep 07, 2024 03:00 PM [facility]ULATORY [facility]ICINE [facility] Sep 12, 2024 09:00 AM [facility]ORY [facility] Sep 15, 2024 08:45 AM AMBULATORY - MEDICINE [facility] Sep 20, 2024 09:30 AM [facility]ATORY - MED[facility] Sep 20, 2024 10:30 AM AMBULATORY - MEDICINE [facility] Oct 06, 2024 10:00 AM AMBULATORY - MEDICINE [facility] Oct 18, 2024 08:30 AM AMBULATORY - MEDICINE [facility] Advance Directives: All historical and current Section Date Range: From patient's date of to the date document was created. This section includes ALL of a patient's completed or amended [place] Advance and Rescinded Directives. The entries below indicate that a directive exists for the patient, but an actual copy is not included with this document. The data comes from all [place] facilities. Date Advance Directives Provider Source Dec 12, 2014 ADVANCE DIRECTIVE KATRIN GREEN Encounter Notes: All associated encounter notes This section contains the clinical notes associated to the Encounter. Date/Time Encounter Note(s) Provider Source Jun 23, 2024 09:40 AM ACUPUNCTURE NOTE: LOCAL TITLE: ACUPUNCTURE TREATMENT STANDARD TITLE: ACUPUNCTURE NOTE DATE OF NOTE: JUN 23, 2024@09:40 ENTRY DATE: JUN 23, 2024@09:40:44 AUTHOR: JEFFERY ALFARO EXP COSIGNER: URGENCY: STATUS: COMPLETED ANGELA RIVERA is a 64 WHITE MALE who presents with Nausea, Smoking cessation, Urinary urgency Active Problem Type 2 diabetes mellitus E11.9 03/16/2024 AUSTIN BALDWIN Steatosis of liver K76.0 12/24/2023 AUSTIN BALDWIN Anxiety F41.9 11/24/2023 DESIRE MIRELES Cannabis dependence F12.288 11/24/2023 DESIRE MIRELES Bronchospasm J98.01 11/04/2023 AUSTIN BALDWIN Obstructive Sleep Apnea of Adult (S 10/20/2023 FRED,GUNNAR Panic attack F41.0 08/25/2023 AUSTIN BALDWIN Malignant otitis externa H60.20 06/17/2023 FRED,GUNNAR Hypertension I10. 03/09/2023 AUSTIN BALDWIN Exposure to potentially hazardous s 01/18/2024 MARYAM DOMINIQUE Screening for malignant neoplasm of 03/10/2022 AUSTIN BALDWIN Erectile dysfunction N52.9 03/10/2022 AUSTIN BALDWIN Hyperglycemia R73.9 03/09/2023 DENNY,AUSTIN Abdominal pain R10.9 07/03/2022 DENNY,AUSTIN Chest wall pain R07.89 04/20/2023 AUSTIN BALDWIN Gastroesophageal reflux disease K21 06/14/2020 AUSTIN BALDWIN Cervical radiculopathy M50.123 05/11/2020 AUSTIN BALDWIN Under care of doctor R69. 10/31/2019 AUSTIN BALDWIN Polycythemia D45. 03/11/2021 AUSTIN BALDWIN Nicotine dependence Z72.0 12/28/2017 UNA MARCUS Secondary polycythemia R69. 10/23/2016 AUSTIN BALDWIN Calculus of prostate R69. 11/26/2015 AUSTIN BALDWIN Hypertriglyceridemia E78.2 11/26/2015 AUSTIN BALDWIN Chronic kidney disease stage 3 N18. 12/16/2023 AUSTIN BALDWIN EKG axis finding R69. 11/26/2015 AUSTIN BALDWIN Carpal tunnel syndrome 354.0 12/16/2013 AUSTIN BALDWIN Fracture of ankle 824.8 12/16/2013 AUSTIN BALDWIN Panic attack F41.0 11/26/2015 AUSTIN BALDWIN Colonoscopy normal 799.9 04/10/2015 AUSTIN BALDWIN Date Jun CC / HPI - Phyllis presents with chronic nausea and anxiety. Phyllis has stage III kidney disease and which causes a cascade of effects including nausea and dehydration. Phyllis states that he has attacks where he will have nausea dizziness and sweating and feel lightheaded. Carbon states in November he was hospitalized 4 times as a result. Phyllis says that while he is nauseous he never vomits but only dry heaves. states this has been going on various forms of intensity for over 30 years. Phyllis also has diabetes. Phyllis also suffers from chronic anxiety. He reports he takes Klonopin to control his anxiety and uses trazodone at night to sleep. He reports that his sleep is generally good with the trazodone. He will go to sleep at 8 PM and wake at 6 AM. He reports feeling well rested in the morning. Carbon states appetite is good though he has to watch what he eats. He is trying to lose weight but is finding it difficult. Carbon states digestion is generally good. No history of acid reflux or other issues. states bowel movements are normal and unremarkable. Urination: states that he can often have urgency to urinate. He reports that several times he has not made it to the bathroom in time. RESPONSE TO PREVIOUS TREATMENT. Carbon reports last treatment was very helpful with his nausea and anxiety for a few weeks. states the past 5 days he has had a very intense anxiety attack which she described as a roller coaster. states that he still feels physically drained but has been doing better in the last day or so. Carbon states that his smoking cravings have been well-managed between the acupuncture and the Chantix he has been taking. Carbon states he is only smoked 1 cigarette in the last 15 days. Carbon also notes that he has been staying better hydrated by drinking small sips of water throughout the day. _ OBJECTIVE General: . Patient in no apparent distress . appropriate attire . here with equanimity Skin: . No effusion/edema . No ecchymosis . No erythema MUSCULOSKELETAL: Observed . no signs of trauma Ambulation . independent ambulation . non-antalgic ambulation Physical Ability to Transfer: . Patient was able to get on/off the treatment table unassisted. Posture . no antalgic posture Extremities . functional AROM BACK / SPINE . no overt deformity of spine . no pelvic unleveling NEUROLOGIC: Mentation . A&Ox3 Gait [ ]antalgic [X]non-antalgic [ ]ataxic [ ]wheel chair, walker, cane ASSESSMENT / SUMMARY Affected Channel: Yrn, ST, KD, SP, LR Medical Decision Making (MDM) * [ ]Straightforward o [ ]Minimal = 1 self-limited or minor problem * [X]Low o - 2 or more self-limited or minor problems o - 1 stable chronic illness o - 1 acute, uncomplicated illness or injury * [ ]Moderate o - 1 or more chronic illness with exacerbation, progression or side effect from treatment o - 2 or more stable chronic illnesses o - 1 undiagnosed new problem w/uncertain prognosis o - 1 acute illness w/ systemic symptoms o - 1 acute complicated injury * [ ]High o - 1 or more chronic illnesses w/ severe exacerbation, progression, or side effect from treatment o - 1 acute or chronic illness/injury that poses threat to life or bodily function PLAN / RECOMMENDATION: Weekly treatment as schedule allows Follow-up [X]1 WEEK [ ]2 WEEKS [ ]3 WEEKS [ ]1 MONTH FREQUENCY OF CARE [X]1 X WEEKLY, [ ]2 X WEEKLY [ ]Bi-Weekly, [ ]Monthly, [ ]Other Seeking: [ ]access to acupuncture for: [ ]pain control [ ]frequency or [ ]as needed [ ]Stress/anxiety reduction, [ ]Other mental health [X]Addiction/dependence: [X]Nicotene [ ]Alcohol [ ]Chemical Patient Education: [ ]Encouraged self-care management using active therapies [ ](exercises, therapeutic movement, PT, biofeedback, smoking cessation, health coaching) to manage chronic pain while engaging passive therapies (acupuncture / chiropractic / massage) to manage [ ]acute / [ ]subacute (persistent) pain [ ]Counseled not to view exercise as an analgesic, but as modalities to improve flexibility, strength, and conditioning. [ ]Additionally, counseled to stay within tolerances when doing daily tasks / exercise i.e. use pacing to moderate aggravation of sx. [ ]Attempt 2 to 3 times per week [ ]Modify as needed [ ]Refrain from exercises if aggravation or new symptoms appear [ ]Do not use acupressure over area where you have a wound, severe swelling or lump, active infection, recent blood clots, rash, or areas that are numb. However, you may use other points away from these areas. If you take medications to thin your blood, or have a bleeding or clotting disorder, only use light pressure. [ ]Self-care management encouraged by focus on self-care strategies to improve flexibility, strength and conditioning, not to view exercise as an analgesic yet modalities to improve gross motion as chronic pain undermines core movements. [ ]Discussed expected course of condition and self-care management via weight-management, healthy diet, regular exercise within patient tolerance and pragmatic use of passive modalities for short-term relief stressing not to solely rely on passive modalities. Also counseled on non-pharmacological therapies/treatments such as acupuncture / acupressure on acute episodes of pain. Furthermore, consider exercise therapy, yoga, qigong, jackie chi, relaxation technique and/or cognitive-behavior methodologies regarding chronic and/or persistent sub-acute pain. INSTRUCTIONS: [X]Rest, hydrate, eat [ ]BFA Patient Information Home Removal - [ ]Remove after 3 days and dispose of in approved sharpes container or comparable container - [ ]or return to clinic or PCP in three days to remove auricular needles - [ ]Pyonex Needle: remove prior to bathing per taker off hemp fiber INFORMED CONSENT: Oral Consent obtained on Jun The patient was positioned comfortably. Oral consent was obtained. There was no evidence of infection at the site of needle insertions. Time out was conducted by Jeffery Alfaro L.Ac. Correct patient was identified using two identifiers. Acupuncture treatment including risk/side effects, benefits, alternatives to treatment and the management plan were reviewed with the patient who expressed understanding and agreed. Correct procedure verified by the patient and the provider. PROCEDURES: Set 1 TIME SPENT: 15 Minutes Position:[X]Prone [ ]Supine [ ]Left Side [ ]Right Side [ ]Seated Chair [ ] Massage Chair Points used: [X]Ear:[ ]Left [ ]Right [X]Bilateral [ ]BFA Protocol, [X]NADA Protocol, [ ][place], Point Zero, Sympathetic [ ] Ear: [ ]Castillo Men, [ ]Point Zero, [ ]Sympathetic [ ]Ear Other: [ ]Head: [ ]Neck: [ ]Torso: [ ]Hip / Glute Area: [ ]LUE: [ ]RUE: [ ]LLE: [ ]RLE: Set 2 TIME SPENT: 15 Minutes Position:[X]Prone [ ]Supine [ ]Left Side [ ]Right Side [ ]Seated Chair [ ] Massage Chair Points used: [ ]Ear:[ ]Left [ ]Right [ ]Bilateral [ ]BFA Protocol, [ ]NADA Protocol, [ ][place], Point Zero, Sympathetic [ ] Ear: [ ]Castillo Men, [ ]Point Zero, [ ]Sympathetic [ ]Ear Other: [ ]Head: [ ]Neck: [ ]Torso: [ ]Hip / Glute Area: [X]LUE:LI 4, FREDRICK 7, TH 5, LI 11 [X]RUE:LI 4, FREDRICK 7, TH 5, LI 11 [X]LLE:ST 36, SP 9, SP 6, GB 40, SP 3 [X]RLE:ST 36, SP 9, SP 6, GB 40, SP 3 [ ]Other therapies: [ ]Cupping: [ ]Cold Laser [ ]Peizo Pen: [ ]External Qigong: [ ]TDP Lamp: [ ]Tui Na: [ ]Guasha: [ ]Nutrition Counseling: The procedures were performed and needles removed without complication. Treatment Response: [X]nominal / [ ]negative / [ ]aborted due to [ ]F/U PRN self-schedule upon unresolving re-aggravation or with degrading pain control An RTC order will be necessary if patient is seeking self-schedule beyond one year; If beyond three years, a new consult is required /karlene/ JEFFERY ALFARO LA.C DIPL.AC PSYCHOLOGICAL ASSISTANT Signed: 06/23/2024 15:43 JEFFERY ALFARO [facility]
--- OUTSIDE RECORDS SUMMARY | 2024-07-05 11:30 | XMS_ITS | Encounter Summary ---
Author Name [facility] [facility] [place] [facility] [place] Address [address] [place] [address] Care Team Providers Care Payroll Benefits Clerk Name Role Phone AUSTIN BALDWIN Primary Care Provider [facility] Insurance Providers: All historical and current [...] Relationship to Policy Lomas PATRICIO MULLIGAN-ESME R [facility] PATRICIO ERICKSON Nov 14, 2024 PATRICIO MULLIGAN [id number] Dougie RIVERA PATIENT [facility] MEDICAID MEDICAID MEDIC AID Oct 05, 2016 MEDICAI D [id number] NICOLE,A NALLELY PATIENT MEDICAID [facility]ICAID [facility] STAND BEATRICE Oct 05, 2014 MEDICAI D [id number] Dougie RIVERA NALLELY PATIENT MEDICARE (WNR) MEDICARE (M) PART A May 05, 2018 PART A [id number] [facility] Dougie RIVERA NALLELY PATIENT MEDICARE (WNR) MEDICARE (M) PART B May 05, 2018 PART B [id number] Dougie RIVERA PATIENT Selected Encounter This section includes the information on record at [facility] for the Encounter. Date/Time Encounter Type Encounter Description Reason Provider Source Jul 05, 2024 03:30 PM PSYTX W PT 30 MINUTES PRIMARY CARE/MEDICINE ICD-10-CM Z72.0 Tobacco use DESTINEEGRETASCARLET Nancy Encounter Template Text not used by [facility] Assessments - Encounter Diagnoses This section includes the primary and secondary diagnoses documented for the Encounter. Date/Time Primary/Secondary Diagnosis Diagnosis Name Provider Source Jul 07, 2024 08:39 AM PRIMARY Tobacco use LUCINA LUGO [place] Plan of Treatment: Future Appointments (+ 6 months) and Future Tests (+/- 45 days) The Plan of Treatment section includes future care activities for the [facility] This section includes future appointments and future orders which are active, pending or scheduled. Future Appointments This section includes appointments that were scheduled to occur 6 months from the date of the Encounter, up to a maximum of 20 appointments. The data comes from all [facility] treatment facilities. Appointment Date/Time Appointment Type Appointme nt Facility Name Jul 15, 2024 11:30 AM [facility]ULATORY - MEDICINE [facility] Jul 25, 2024 09:30 AM AM[facility]ULATORY [place] [facility]IC[place] [facility] [place] [facility] Jul 25, 2024 10:00 AM AMBULATORY [place] MEDICINE [facility] [place] [facility] Jul 25, 2024 11:00 AM AMBULATORY - MEDICINE [facility] [place] [facility] Jul 28, 2024 09:30 AM AMBULATORY - MEDICINE [facility] Jul 28, 2024 10:00 AM [facility] Jul 29, 2024 03:00 PM AM[facility]ULATORY [facility] [place] [facility] [place] Aug 03, 2024 03:30 PM AM[facility]ULATORY [facility] [place] [facility] Aug 05, 2024 08:30 AM AM[facility]ULATORY [facility] [place] [facility] Aug 11, 2024 08:30 AM AM[facility]ULATORY [facility] [place] [facility] Aug 25, 2024 09:00 AM AMBULATORY [facility] [place] [facility] Sep 07, 2024 10:00 AM AMBULATORY - MEDICINE [facility] [place] [facility] Sep 07, 2024 03:00 PM AM[facility]ULATORY [facility]INE [facility] [place] [facility] Sep 12, 2024 09:00 AM [facility]ORY [facility] Sep 15, 2024 08:45 AM AM[facility]UL[facility] [place] [facility] Sep 20, 2024 09:30 AM [facility]ORY [facility] Sep 20, 2024 10:30 AM [facility] Oct 06, 2024 10:00 AM AM[facility]ULATORY [facility] [place] [facility] Oct 18[facility] 2024 08:30 AM AM[facility]UL[facility]ORY [facility] [place] [facility] Nov 07, 2024 01:15 PM AMBULATORY [facility]ICINE [facility] [place] [facility] Social History: Smoking Status (Most current) and Tobacco Use (All prior to encounter date) This section includes the most current, and the historical, smoking and tobacco- related health factors from the [facility] facility where the Encounter took place. Current Smoking Status This section includes the most current smoking, or tobacco-related health factor, from the [facility] facility where the Encounter took place. Date/Time Current Smoking Status Comment Facil [facility] Dec 16, 2023 10:00 AM VA-TOBACCO USE WI 30 MIN OF WAKE UP [place] Tobacco Use History This section includes a history of the smoking, or tobacco-related health factors, that were collected on or before the date of the Encounter. The data comes from the [facility] facility where the Encounter took place. 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 YES [place] Dec 16, 2023 10:00 AM VA-TOBACCO USE MED NO [place] Dec 16, 2023 10:00 AM VA-TOBACCO USE MED YES [place] Dec 16, 2023 10:00 AM VA-TOBACCO USE WI 30 MIN OF WAKEUP [place] Dec 16, 2023 10:00 AM VA-TOBACCO USER EVERY DAY [place] Jan 13, 2023 02:00 PM VA-TOBACCO USE 1 T O < 5 YEARS [place] Jan 13, 2023 02:00 PM VA-TOBACCO USE ADVICE [place] Jan 13, 2023 02:00 PM 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 [place] Jan 13, 2023 02:00 PM VA-TOBACCO USE MED NO [place] Jan 13, 2023 02:00 PM VA-TOBACCO USE WI 30 MIN OF WAKEUP [place] Jan 13, 2023 02:00 PM VA-TOBACCO USER EVERY DAY [place] Jul 03, 2022 09:00 AM VA-TOBACCO FORMER USER [place] Jul 03, 2022 09:00 AM VA-TOBACCO QUIT 5 TO < 15 YRS [place] Jul 04, 2021 09:00 AM VA-TOBACCO USE > 1 5 LESS THAN 30 YEARS [place] Jul 04, 2021 09:00 AM VA-TOBACCO USE ADVICE [place] Jul 04, 2021 09:00 AM 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 [place] Jul 04, 2021 09:00 AM VA-TOBACCO USE MED NO [place] Jul 04, 2021 09:00 AM VA-TOBACCO USE WI 30 MIN OF [facility] Jul 04, 2021 09:00 AM VA-TOBACCO USER SOME DAYS [place] Apr 30, 2020 10:39 AM VA-TOBACCO FORMER USER [place] Apr 30, 2020 10:39 AM VA-TOBACCO QUIT 5 TO < 15 YRS [place] Dec 21, 2018 03:15 PM VA-TOBACCO FORMER USER [place] Dec 21, 2018 03:15 PM VA-TOBACCO QUIT 1 TO < 5 YRS [place] Nov 24, 2017 09:54 AM CURRENT SMOKER cigarets [place] Nov 24, 2017 09:54 AM V1-PT READY TO SHARAN T TOBACCO USE [place] Mar 25, 2017 01:57 PM CURRENT SMOKER down to 10 cigarettes daily [place] Mar 25, 2017 01:57 PM V1-PT DECLINES TOB ACCO CESSATION MEDS [place] Mar 25, 2017 01:57 PM V1-PT READY TO SHARAN T TOBACCO USE [place] March 04, 2017 02:38 PM CURRENT SMOKER advise stopm [place] Jul 22, 2016 09:29 AM V1-PT NOT INTEREST ED IN QUIT TOBACCO USE [place] Nov 21, 2015 09:21 AM CURRENT SMOKER half a pack a day [place] Nov 21, 2015 09:21 AM V1-PT NOT INTEREST ED IN QUIT TOBACCO USE [place] Nov 23, 2014 08:51 AM CURRENT SMOKER [facility] Nov 23, 2014 08:51 AM V1-PT READY TO SHARAN T TOBACCO USE [place] Dec 16, 2013 02:19 PM CURRENT SMOKER 3/4 pack a day [place] Dec 16, 2013 02:19 PM V1-PT THINKING ABO [facility] QUIT TOBACCO USE [place] Advance Directives: All historical and current Section Date Range: From patient's date of to the date document was created. This section includes ALL of a patient's completed or amended [place] Advance and Rescinded Directives. The entries below indicate that a directive exists for the patient, but an actual copy is not included with this document. The data comes from all [place] facilities. Date Advance Directives Provider Source Dec 12, 2014 ADVANCE DIRECTIVE KATRIN GREEN TAYLOR Conner Encounter Notes: All associated encounter notes This section contains the clinical notes associated to the Encounter. Date/Time Encounter Note(s) Provider Source Jul 07, 2024 08:45 AM ADDENDUM: LOCAL TITLE: Addendum STANDARD TITLE: ADDENDUM DATE OF NOTE: JUL 07, 2024@08:45:11 ENTRY DATE: JUL 07, 2024@08:45:13 AUTHOR: LUCINA LUGO EXP COSIGNER: URGENCY: STATUS: COMPLETED alerting amsa to rtc in chart. please send vvc link too /es/ Lucina Lugo, PhD Clinical Psychologist Signed: 07/07/2024 08:45 Receipt Acknowledged By: 07/07/2024 09:15 /karlene/ JERAMY MASON Advanced Immigration Manager --- Original Document --- 07/05/24 TOBACCO CESSATION NOTE: [facility] Connect ([facility]) Standard Documentation [facility] Clinician Resources Only: E911 (Emergency Call Relay Center): [phone] [facility] Crisis Line - 216 then press #1. MICKIE Suicide Coordinator ? [phone], Ext. [phone]; Back-up Ext. [phone] [place] Police, [place], Dianleys ? [phone] Introduction: Visit is being conducted by [facility] [employer] [facility]. identified with 2 identifiers: [X] Full Name [X] Date of [ ] [place] ID Card Emergency Plan: [place] confirmed and/or provided the following information in case of emergency or technology failure. PATIENT PHONE - PHONE NUMBER [CELLULAR] - Is patient phone number correct, if not, enter below: 's phone number: ANGELA RIVERA [address] [facility] [address], [place], [address] 's present location and address for appointment: home [place]'s emergency contact name and phone number: chart [place] reported that location is private and safe: Yes Informed Consent: [place] informed of the risks and benefits of Telehealth video care. has the right to refuse video services. If refuses video visit, a ttpu-[id number] visit will be scheduled. [place] verbalized consent for this video visit: Yes [place] provided consent for any other persons present for visit: N/A If yes, who and relationship to patient: Secure visit: Visit was locked for security and privacy:Yes Smoking Cess f/u DATE: 07/05/24 DURATION OF COUNSELIN min DX: tobacco use disorder, mod REASON FOR ENCOUNTER: attended session for smoking cessation. SUMMARY OF SESSION: Current Session focused on AARM Strategy for coping with smoking triggers, coping with high risk situations, identifying and counteracting resumption thoughts, and how to cope with a smoking slip. Hasn't smoked in 35 days. He smoked for 2 different days. He stated they were stressful days. He is done with the paperwork that was triggering him because stressfull. He has no urges at this time. Listens to motivational music. Sense of smell is better. INTERVENTIONS: Psychoeducation regarding AARM (avoiding, altering, replacing,and mentally coping) with triggers was discussed. Discussed smoking slips and what actions to take if this occurs. MENTAL STATUS: [place] was oriented x3, mental status was WNL. No behavioral, perceptual orthought disturbances reported or observed. No concerns. CURRENT IMPRESSION OF LETHALITY RISK / PLAN FOR RISK MANAGEMENT: No thoughts, intent or plan to harm self or others was reported. No imminent risk reported. IMPRESSIONS: [place] is taking chanitx. No longer smoking PLAN: 1) will return on 08/03 at 330pm via VVC 2) continue chantix-- WHOLE HEALTH COACHING SKILLS Coaching or Motivational Interviewing skills used. /es/ Lucina Lugo, PhD Clinical Psychologist Signed: 07/07/2024 08:44 LUCINA LUGO [place] Jul 05, 2024 03:37 PM SMOKING CESSATION NOTE: LOCAL TITLE: TOBACCO CESSATION NOTE STANDARD TITLE: SMOKING CESSATION NOTE DATE OF NOTE: JUL 05, 2024@15:37 ENTRY DATE: JUL 05, 2024@15:37:44 AUTHOR: LUCINA LUGO EXP COSIGNER: URGENCY: STATUS: COMPLETED TOBACCO CESSATION NOTE Has ADDENDA [facility] Connect ([facility]VC) Standard Documentation VVC Clinician Resources Only: E911 (Emergency Call Relay Center): [phone] [facility] Crisis Line - 108 then press #1. CWM Suicide Coordinator ? [phone], Ext. [phone]; Back-up Ext. [phone] [place] Police, Dianelys CORADO ? [phone] Introduction: Visit is being conducted by [employer] Connect. [place] identified with 2 identifiers: [X] Full Name [X] Date of [ ] [place] ID Card Emergency Plan: confirmed and/or provided the following information in case of emergency or technology failure. PATIENT PHONE - PHONE NUMBER [CELLULAR] - Is patient phone number correct, if not, enter below: 's phone number: ANGELA RIVERA [address], [address] [place]'s present location and address for appointment: home [place]'s emergency contact name and phone number: chart reported that location is private and safe: Yes Informed Consent: informed of the risks and benefits of Telehealth video care. [place] has the right to refuse video services. If refuses video visit, a [id number]-rh-[id number] visit will be scheduled. [place] verbalized consent for this video visit: Yes [place] provided consent for any other persons present for visit: N/A If yes, who and relationship to patient: Secure visit: Visit was locked for security and privacy:Yes Smoking Cess f/u DATE: 07/05/24 DURATION OF COUNSELIN min DX: tobacco use disorder, mod REASON FOR ENCOUNTER: [place] attended session for smoking cessation. SUMMARY OF SESSION: Current Session focused on AARM Strategy for coping with smoking triggers, coping with high risk situations, identifying and counteracting resumption thoughts, and how to cope with a smoking slip. Hasn't smoked in 35 days. He smoked for 2 different days. He stated they were stressful days. He is done with the paperwork that was triggering him because stressfull. He has no urges at this time. Listens to motivational music. Sense of smell is better. INTERVENTIONS: Psychoeducation regarding AARM (avoiding, altering, replacing,and mentally coping) with triggers was discussed. Discussed smoking slips and what actions to take if this occurs. MENTAL STATUS: was oriented x3, mental status was WNL. No behavioral, perceptual orthought disturbances reported or observed. No concerns. CURRENT IMPRESSION OF LETHALITY RISK / PLAN FOR RISK MANAGEMENT: No thoughts, intent or plan to harm self or others was reported. No imminent risk reported. IMPRESSIONS: [place] is taking chanitx. No longer smoking PLAN: 1) [place] will return on 08/03 at 330pm via VVC 2) continue chantix-- WHOLE HEALTH COACHING SKILLS Coaching or Motivational Interviewing skills used. /karlene/ Lucina Lugo PhD Clinical Psychologist Signed: 07/07/2024 08:44 07/07/2024 ADDENDUM STATUS: COMPLETED alerting amsa to rtc in chart. please send vvc link too /karlene/ Lucina Lugo PhD Clinical Psychologist Signed: 07/07/2024 08:45 Receipt Acknowledged By: * AWAITING SIGNATURE * JERAMY MASON,LUCINA TABOR
--- OUTSIDE RECORDS SUMMARY | 2024-07-25 06:00 | XMS_ITS ---
Author Name [facility] [place] [facility] [place] Address [address] [place] [address] Care Team Providers Care Lpn Medical Assistant Name Role Phone AUSTIN BALDWIN Primary Care [...] Relationship to Policy Lomas PATRICIO MULLIGAN-WN R [place] SPECIAL CLASS PATRICIO ERICKSON Nov 14, 2024 PATRICIO MULLIGAN [id number] NICOLE,A NALLELY PATIENT [facility] MEDICAID MEDICAID MEDIC AID Oct 05, 2016 MEDICAI D [id number] NICOLE,A NALLELY PATIENT MEDICAID MEDICAID [id number] Oct 05, 2014 MEDICAI D [id number] NICOLE,Dougie NALLELY PATIENT MEDICARE (WNR) MEDICARE (M) PART A May 05, 2018 PART A [id number] Dougie RIVERA NALLELY PATIENT MEDICARE (WNR) MEDICARE (M) PART B May 05, 2018 PART B [id number] Dougie RIVERA PATIENT Selected Encounter This section includes the information on record at [place] for the Encounter. Date/Time Encounter Type Encounter Description Reason Provider Source Jul 25, 2024 10:00 AM OFFICE O/P EST LOW 20 MIN PRIMARY CARE/MEDICINE ICD-10-CM M43.6 ARCADIO Obregon [facility] Encounter Template Text not used by [place] Assessments - Encounter Diagnoses This section includes the primary and secondary diagnoses documented for the Encounter. Date/Time Primary/Secondary Diagnosis Diagnosis Name Provider Source Jul 25, 2024 10:25 AM PRIMARY ARCADIO Obreogn [place] [facility] [place] [facility] Plan of Treatment: Future Appointments (+ 6 months) and Future Tests (+/- 45 days) The Plan of Treatment section includes future care activities for the patient from all [place] treatmentfacilities. This section includes future appointments and future orders which are active, pending or scheduled. Future Appointments This section includes appointments that were scheduled to occur 6 months from the date of the Encounter, up to a maximum of 20 appointments. The data comes from all [place] treatment facilities. Appointment Date/Time Appointment Type Appointme nt Facility Name Jul 28, 2024 09:30 AM [facility]ATORY [facility]INE [facility] Jul 28, 2024 10:00 AM AMBULATORY - MEDICINE [facility] Jul 29, 2024 03:00 PM AMBULATORY - MEDICINE [place] [facility] [place] [facility] Aug 03, 2024 03:30 PM AMBULATORY - MEDICINE [place] [facility] [place] [facility] Aug 05, 2024 08:30 AM AMBULATORY - MEDICINE [place] [facility] [place] [facility] Aug 11, 2024 08:30 AM AMBULATORY - MEDICINE [place] [facility] [place] [facility] Aug 25, 2024 09:00 AM AMBULATORY - MEDICINE [place] [facility] [place] [facility] Sep 07, 2024 10:00 AM AMBULATORY - MEDICINE [place] [facility] [place] [facility] Sep 07, 2024 03:00 PM AMBULATORY - MEDICINE [place] [facility] [place] [facility] Sep 12, 2024 09:00 AM [facility]ATORY - MEDICINE [facility] Sep 15, 2024 08:45 AM AMBULATORY - MEDICINE [place] [facility] [place] [facility] Sep 20, 2024 09:30 AM [facility] [place] [facility] [place] Sep 20, 2024 10:30 AM [facility] [place] [facility] [place] Oct 06, 2024 10:00 AM AMBULATORY [place] [facility]ICINE [place] [facility] [place] [facility] Oct 18, 2024 08:30 AM AMBULATORY - MEDICINE [place] [facility] [place] [facility] Nov 07, 2024 01:15 PM AMBULATORY - MEDICINE [place] [facility] [place] [facility] Nov 08, 2024 10:00 AM AMBULATORY - MEDICINE [place] [facility] [place] [facility] Nov 15, 2024 08:30 AM [facility] Dec 05, 2024 02:15 PM AMBULATORY - MEDICINE [place] [facility] [place] [facility] Dec 08, 2024 09:00 AM AMBULATORY - MEDICINE [place] [facility] [place] [facility] Vital Signs: All taken on the encounter date This section contains inpatient and outpatient Vital Signs collected on the date of the Encounter. Date/Time Temperature Pulse Blood Pressure Respiratory Rate SP02 Pain Height Weight Body Mass Index Source Jul 25, 2024 10:11 AM 97.7 98 127/90 18 97 10 233 36 [place] [facility] [place] [facility] Advance Directives: All historical and current Section Date Range: From patient's date of to the date document was created. This section includes ALL of a patient's completed or amended [place] Advance and Rescinded Directives. The entries below indicate that a directive exists for the patient, but an actual copy is not included with this document. The data comes from all [place] facilities. Date Advance Directives Provider Source Dec 12, 2014 ADVANCE DIRECTIVE KATRIN GREEN Encounter Notes: All associated encounter notes This section contains the clinical notes associated to the Encounter. Date/Time Encounter Note(s) Provider Source Jul 25, 2024 10:13 AM PHYSICIAN SPEECH AND HEARING CLINIC DIRECTOR NOTE: LOCAL TITLE: PA NOTE STANDARD TITLE: PHYSICIAN SPEECH AND HEARING CLINIC DIRECTOR NOTE DATE OF NOTE: JUL 25, 2024@10:13 ENTRY DATE: JUL 25, 2024@10:13:32 AUTHOR: ARCADIO JOHNSON EXP COSIGNER: URGENCY: STATUS: COMPLETED SICK CALL VISIT HPI: 64 year old male with below noted PMHx presents with 2 days of stiff, sore neck worse this morning. No paraesthesias. No trauma. No new bed/pillows or activity. Took Advil without relief. REVIEW OF SYSTEMS: A 12 point review of systems is negative except as noted in the HPI. Active Medical Problems: Active Problem Type 2 diabetes mellitus E11.9 [...] N52.9 03/10/2022 AUSTIN BALDWIN Hyperglycemia R73.9 03/09/2023 AUSTIN BALDWIN Abdominal pain R10.9 07/03/2022 AUSTIN BALDWIN Chest wall pain R07.89 04/20/2023 AUSTIN BALDWIN [...] AUSTIN BALDWIN Carpal tunnel syndrome 354.0 12/16/2013 [place] Fracture of ankle 824.8 12/16/2013 AUSTIN BALDWIN Panic attack F41.0 11/26/2015 [place] Colonoscopy normal 799.9 04/10/2015 AUSTIN BALDWIN Meds: Active Outpatient Medications (including Supplies): ACCU-CHEK GUIDE (GLUCOSE) TEST STRIP USE 1 STRIP TO TEST ACTIVE BLOOD SUGARS DIRECTED ALBUTEROL 90MCG (CFC-F) 200D ORAL INHL INHALE 1 PUFF BY ACTIVE MOUTH FOUR TIMES DAILY NEEDED FOR BRONCHOSPASM AMLODIPINE BESYLATE 5MG TAB TAKE ONE TABLET BY MOUTH ONCE ACTIVE DAILY FOR BLOOD PRESSURE/HEART, DO NOT TAKE WITH GRAPEFRUIT JUICE CHOLECALCIF 50MCG (D3-2,000UNIT) TAB TAKE ONE TABLET BY ACTIVE MOUTH ONCE DAILY FOR VITAMIN D DEFICIENCY FENOFIBRATE 145MG TAB TAKE ONE TABLET BY MOUTH ONCE DAILY ACTIVE OMEPRAZOLE 20MG EC CAP TAKE ONE CAPSULE BY MOUTH TWICE ACTIVE DAILY FOR EXCESSIVE PRODUCTION OF STOMACH ACID SEMAGLUTIDE 1MG/0.75ML INJ PEN 3ML INJECT 1MG ACTIVE SUBCUTANEOUSLY ONCE A WEEK FOR TYPE 2 DIABETES MELLITUS Non-VA ASPIRIN 81MG EC TAB 81MG BY MOUTH EVERY DAY ACTIVE Non-VA BUSPIRONE HCL 5MG TAB 5MG BY MOUTH TWICE DAILY ACTIVE Non-VA CLONAZEPAM 1MG TAB 1MG BY MOUTH TWICE DAILY ACTIVE Non-VA HYDROXYZINE HCL 25MG TAB 25MG BY MOUTH ONCE DAILY ACTIVE Non-VA OLANZAPINE 5MG TAB 5MG BY MOUTH TWICE DAILY ACTIVE Non-VA ONDANSETRON HCL 4MG TAB 4MG BY MOUTH DIRECVTED ACTIVE Non-VA TRAZODONE HCL 100MG TAB 50MG BY MOUTH AT BEDTIME ACTIVE Non-VA VENLAFAXINE HCL 150MG 24HR SA CAP 150MG BY MOUTH ACTIVE ONCE DAILY Allergies: CODEINE, OXYCODONE Date Vital Measurement Qualifiers 07/25/2024 10:11 Temp F (C) 97.7 (36.5) Pulse 98 Respir 18 BP 127/90 Wt lbs (kg)[BMI] 233 (105.69)[36*] Pain 10 POx (L/Min)(%) 97 At Rest FOCUSED EXAMINATION GEN: WD, stiff/guarded movements regarding neck Vascular: carotids/peripheral pulses 2+ Neuro: Non-focal MSK: C-spine NTTP. scalene, SCM and other soft tissue hypertonicity with decreased range all greenberg due to pain. MDM: [place] requests soft collar. Discussion of R/B/A to use and limited time to prevent atrophy/weakening of muscles. [place] verbalized understanding. Flexeril and Tylenol as prescribed. Keep Acupuncture appointment for further assistance with pain/ range as scheduled for 11 am today. RTC PRN. ASSESSMENT/PLAN Torticollis as above able to verbalize understanding of plan of care and agrees. >> MEDICATIONS Reviewed and reconciled with /karlene/ ARCADIO MUNOZ MS,PA-C PHYSICIAN SPEECH AND HEARING CLINIC DIRECTOR Signed: 07/25/2024 10:31 ARCADIO JOHNSON [place] [facility]
--- OUTSIDE RECORDS SUMMARY | 2024-07-25 07:00 | XMS_ITS | Encounter Summary ---
Author Name [facility] [place] Address [address] [place] [address] Care Team Providers Care Long Wall Shear Operator Name Role Phone AUSTIN BALDWIN Primary Care [...] Patient's Relationship to Policy Lomas PATRICIO MULLIGAN-ESME Jones [place] SPECIAL CLASS PATRICIO ERICKSON Nov 14, 2024 PATRICIO MULLIGAN [id number] NICOLE,A NALLELY PATIENT [facility] MEDICAID MEDIC AID Oct 05, 2016 MEDICAI D [id number] NICOLE,A NALLELY PATIENT MEDICAID MEDICAID [facility] STAND [place]ICE Oct 05, 2014 MEDICAI D [id number] NICOLE,A NALLELY PATIENT MEDICARE (WNR) MEDICARE (M) PART A May 05, 2018 PART A [id number] [facility] Dougie RIVERA NALLELY PATIENT MEDICARE (WNR) MEDICARE (M) PART B May 05, 2018 PART B [id number] LAUZIER,A NALLELY PATIENT Selected Encounter This section includes the information on record at [place] for the Encounter. Date/Time Encounter Type Encounter Description Reason Provider Source Jul 25, 2024 11:00 AM INFRARED THERAPY [facility] TREATMENT ICD-10-CM M54.2 Cervicalgia NAVEED ALFARO E Encounter Template Text not used by [place] Assessments - Encounter Diagnoses This section includes the primary and secondary diagnoses documented for the Encounter. Date/Time Primary/Secondary Diagnosis Diagnosis Name Provider Source Jul 25, 2024 11:40 AM PRIMARY Cervicalgia NAVEED ALFARO [place] [facility] [place] [facility] Jul 25, 2024 11:40 AM SECONDARY Headache, unspecified NAVEED ALFARO [place] [facility] [place] [facility] Plan of Treatment: Future Appointments (+ 6 months) and Future Tests (+/- 45 days) The Plan of Treatment section includes future care activities for the patient from all [place] treatmentfacilst. [facility]. This section includes future appointments and future orders which are active, pending or scheduled. Future Appointments This section includes appointments that were scheduled to occur 6 months from the date of the Encounter, up to a maximum of 20 appointments. The data comes from all [place] treatment facilities. Appointment Date/Time Appointment Type Appointme nt Facility Name Jul 28, 2024 09:30 AM [facility]ATORY - MEDICINE [facility] Jul 28, 2024 10:00 AM AMBULATORY - MEDICINE [facility] Jul 29, 2024 03:00 PM AMBULATORY - MEDICINE [place] [facility] [place] [facility] Aug 03, 2024 03:30 PM AMBULATORY - MEDICINE [place] [facility] [place] [facility] Aug 05, 2024 08:30 AM AMBULATORY - MEDICINE [place] [facility] [facility] Aug 11, 2024 08:30 AM AMBULATORY - MEDICINE [place] [facility] [place] [facility] Aug 25, 2024 09:00 AM AMBULATORY - MEDICINE [place] [facility] [place] [facility] Sep 07, 2024 10:00 AM AMBULATORY - MEDICINE [place] [facility] [facility] Sep 07, 2024 03:00 PM AMBULATORY - MEDICINE [place] [facility] [place] [facility] Sep 12, 2024 09:00 AM AMBULATORY - MEDICINE [facility] Sep 15, 2024 08:45 AM AMBULATORY - MEDICINE [place] [facility] [place] [facility] Sep 20, 2024 09:30 [facility] 20, 2024 10:30 [facility] Oct 06, 2024 10:00 AM AMBULATORY - MEDICINE [place] [facility] [facility] Oct 18, 2024 08:30 AM AMBULATORY - MEDICINE [place] [facility] [facility] Nov 07, 2024 01:15 PM AMBULATORY - MEDICINE [place] [facility] [place] [facility] Nov 08, 2024 10:00 AM AMBULATORY - MEDICINE [place] [facility] [facility] Nov 15, 2024 08:30 AM [facility] Dec 05, 2024 02:15 PM AMBULATORY - MEDICINE [place] [facility] [place] [facility] Dec 08, 2024 09:00 AM AMBULATORY - MEDICINE [place] [facility] [place] [facility] Vital Signs: All taken on the encounter date This section contains inpatient and outpatient Vital Signs collected on the date of the Encounter. Date/Time Temperature Pulse Blood Pressure Respiratory Rate SP02 Pain Height Weight Body Mass Index Source Jul 25, 2024 10:11 AM 97.7 98 127/90 18 97 10 233 36 [place] [facility] [place] [facility] Advance Directives: All historical and current Section Date Range: From patient's date of to the date document was created. This section includes ALL of a patient's completed or amended [place] Advance and Rescinded Directives. The entries below indicate that a directive exists for the patient, but an actual copy is not included with this document. The data comes from all [place] facilities. Date Advance Directives Provider Source Dec 12, 2014 ADVANCE DIRECTIVE KATRIN GREEN Encounter Notes: All associated encounter notes This section contains the clinical notes associated to the Encounter. Date/Time Encounter Note(s) Provider Source Jul 25, 2024 11:34 AM ACUPUNCTURE NOTE: LOCAL TITLE: ACUPUNCTURE TREATMENT STANDARD TITLE: ACUPUNCTURE NOTE DATE OF NOTE: JUL 25, 2024@11:34 ENTRY DATE: JUL 25, 2024@11:34:22 AUTHOR: JEFFERY ALFARO EXP COSIGNER: URGENCY: STATUS: COMPLETED ANGELA RIVERA is a 63 WHITE MALE who presents with Nausea, Smoking [...] Colonoscopy normal 799.9 04/10/2015 AUSTIN BALDWIN Date Jul CC / HPI - Phyllis presents with chronic nausea and anxiety. Phyllis has stage III kidney disease and which causes a cascade of effects including nausea and dehydration. Phyllis states that he has attacks where he will have nausea dizziness and sweating and feel lightheaded. Phyllis states in November he was hospitalized 4 times as a result. Phyllis says that while he is nauseous he never vomits but only dry heaves. Phyllis states this has been going on various [...] reports feeling well rested in the morning. Phyllis states appetite is good though he has to watch what he eats. He is trying to lose weight but is finding it difficult. [place] states digestion is generally good. No history of acid reflux or other issues. [place] states bowel movements are normal and unremarkable. Urination: Phyllis states that he can often have urgency to urinate. He reports that several times he has not made it to the bathroom in time. RESPONSE TO PREVIOUS TREATMENT. Phyllis states his last acupuncture in June was very helpful with his anxiety and nausea. Phyllis presents today with an intensely painful cervical pain. Phyllis states that he had gradual onset that started less than 48 hours ago and this morning his pain is 10/10. Phyllis has had increased nausea and has nearly 0 range of motion in his neck. Phyllis was seen by his primary prior to this morning's visit. Phyllis is currently in a neck brace and was given some muscle relaxers. _ OBJECTIVE General: . Patient in no [...] ]Pyonex Needle: remove prior to bathing per intraoperative neuro tech INFORMED CONSENT: Oral Consent obtained on Jul The patient was positioned comfortably. Oral consent [...] Points used: [X]Ear:[ ]Left [ ]Right [X]Bilateral [X]BFA Protocol, [ ][place] Protocol, [ ][place], [place], Sympathetic [ ] Ear: [ ][place] Men, [ ][place], [ ]Sympathetic [X]Ear Other: ASP needles retained for 3 days [ ]Head: [ ]Neck: [ ]Torso: [ [...] [ ]Torso: [ ]Hip / Glute Area: [X] RUE: LK, DB, ZB, LI 10 [X] LUE: LK, DB, ZB, LI 10 [X] RLE: LR 4.2, LR 4.5, LR 4.8, LR 5, SP 5.5, SP 6, KD 7 [X] LLE: LR 4.2, LR 4.5, LR 4.8, LR 5, SP 5.5, SP 6, KD 7 [ ]Other therapies: [ ]Cupping: [ ]Cold [...] is required /karlene/ JEFFERY ALFARO LA.C DIPL.AC COMFORT FILLER Signed: 07/25/2024 11:58 JEFFERY ALFARO [facility]L [facility]
--- OUTSIDE RECORDS SUMMARY | 2024-07-28 06:00 | XMS_ITS | Encounter Summary ---
Author Name [facility] [facility] [place] Address [address] [place] [address] Care Team Providers Care File System Installer Name Role Phone AUSTIN BALDWIN Primary Care [...] Relationship to Policy Lomas PATRICIO MULLIGAN-ESME Jones [place] [facility] PATRICIO ERICKSON Nov 14, 2024 PATRICIO MULLIGAN [id number] NICOLE,Dougie NALLELY PATIENT [facility] MEDICAID MEDICAID MEDIC AID Oct 05, 2016 MEDICAI D [id number] NICOLE,A NALLELY PATIENT MEDICAID MEDICAID [facility] STAND [facility]ATRICE Oct 05, 2014 MEDICAI D [id number] NICOLE,A NALLELY PATIENT MEDICARE (WNR) MEDICARE (M) PART A May 05, [id number] [facility] Dougie RIVERA NALLELY PATIENT MEDICARE (WNR) MEDICARE (M) PART B May 05, [id number] [facility] LAUZIER,A NALLELY PATIENT Selected Encounter This section includes the information on record at [place] for the Encounter. Date/Time Encounter Type Encounter Description Reason Provider Source Jul 28, 2024 10:00 AM OFF/OP EST FEBRUARY X REQ PHY/QHP PRIMARY CARE/MEDICINE ICD-10-CM R68.89 Other general symptoms and signs CRISTINA CABEZAS [facility] Encounter Template Text not used by [place] Assessments - Encounter Diagnoses This section includes the primary and secondary diagnoses documented for the Encounter. Date/Time Primary/Secondary Diagnosis Diagnosis Name Provider Source Jul 28, 2024 10:23 AM PRIMARY Other general symptoms and signs CRISTINA CABEZAS [place] Plan of Treatment: Future Appointments (+ 6 months) and Future Tests (+/- 45 days) The Plan of Treatment section includes future care activities for the patient from all [place] treatmentfacilities. This section includes future appointments and future orders which are active, pending or scheduled. Future Appointments This section includes appointments that were scheduled to occur 6 months from the date of the Encounter, up to a maximum of 20 appointments. The data comes from all [place] treatment facilities. Appointment Date/Time Appointment Type Appointme nt Facility Name Jul 29, 2024 03:00 PM AMBULATORY - MEDICINE [place] [facility] [place] [facility] Aug 03, 2024 03:30 PM AMBULATORY - MEDICINE [place] [facility] [place] [facility] Aug 05, 2024 08:30 AM AMBULATORY - MEDICINE [place] [facility] [place] [facility] Aug 11, 2024 08:30 AM AMBULATORY - MEDICINE [place] [facility] [place] [facility] Aug 25, 2024 09:00 AM AMBULATORY - MEDICINE [place] [facility] [place] [facility] Sep 07, 2024 10:00 AM AMBULATORY - MEDICINE [place] [facility] [place] [facility] Sep 07, 2024 03:00 PM AMBULATORY - MEDICINE [place] [facility] [place] [facility] Sep 12, 2024 09:00 AM [facility] Sep 15, 2024 08:45 AM AMBULATORY - MEDICINE [facility] [place] [facility] Sep 20, 2024 09:30 AM [facility] Sep 20, 2024 10:30 AM [facility]ORY - [facility]ICINE [facility] Oct 06, 2024 10:00 AM AMBULATORY - MEDICINE [facility] [place] [facility] Oct 18, 2024 08:30 AM AMBULATORY - MEDICINE [facility] [place] [facility] Nov 07, 2024 01:15 PM AMBULATORY - MEDICINE [facility] [place] [facility] Nov 08, 2024 10:00 AM AMBULATORY - MEDICINE [facility] [place] [facility] Nov 15, 2024 08:30 AM [facility]ORY [facility] Dec 05, 2024 02:15 PM AMBULATORY - MEDICINE [facility] [place] [facility] Dec 08, 2024 09:00 AM AMBULATORY - MEDICINE [facility] [place] [facility] Dec 19, 2024 09:30 AM [facility]ORY - [facility] Dec 19, 2024 10:00 AM [facility]ATORY - [facility] Social History: Smoking Status (Most current) and [...] place. Date/Time Current Smoking Status Comment Facil [facility] Dec 16, 2023 10:00 AM VA-TOBACCO USE 30 YEARS OR MORE [place] Tobacco Use History This section includes a history of the smoking, or tobacco-related health factors, that were collected on or before the date of the Encounter. The data comes from the [place] facility where the Encounter took place. 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 [place] Dec 16, 2023 10:00 AM VA-TOBACCO USE BALL POINTS INSPECTOR YES [place] Dec 16, 2023 10:00 AM VA-TOBACCO USE MED NO [place] Dec 16, 2023 10:00 AM VA-TOBACCO USE MED YES [place] Dec 16, 2023 10:00 AM VA-TOBACCO USE WI 30 MIN OF WAKEUP [place] Dec 16, 2023 10:00 AM VA-TOBACCO USER EVERY DAY [place] Jan 13, 2023 02:00 PM VA-TOBACCO USE 1 T O < 5 YEARS [place] Jan 13, 2023 02:00 PM VA-TOBACCO USE ADVICE [place] Jan 13, 2023 02:00 PM 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 [place] Jan 13, 2023 02:00 PM VA-TOBACCO USE MED NO [place] Jan 13, 2023 02:00 PM VA-TOBACCO USE WI 30 MIN OF WAKEUP [place] Jan 13, 2023 02:00 PM VA-TOBACCO USER EVERY DAY [place] Jul 03, 2022 09:00 AM VA-TOBACCO FORMER USER [place] Jul 03, 2022 09:00 AM VA-TOBACCO QUIT 5 TO < 15 YRS [place] Jul 04, 2021 09:00 AM VA-TOBACCO USE > 1 5 LESS THAN 30 YEARS [place] Jul 04, 2021 09:00 AM VA-TOBACCO USE ADVICE [place] Jul 04, 2021 09:00 AM 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 [place] Jul 04, 2021 09:00 AM VA-TOBACCO USE MED NO [place] Jul 04, 2021 09:00 AM VA-TOBACCO USE WI 30 MIN OF [facility] Jul 04, 2021 09:00 AM VA-TOBACCO USER SOME DAYS [place] Apr 30, 2020 10:39 AM VA-TOBACCO FORMER USER [place] Apr 30, 2020 10:39 AM VA-TOBACCO QUIT 5 TO < 15 YRS [place] Dec 21, 2018 03:15 PM VA-TOBACCO FORMER USER [place] Dec 21, 2018 03:15 PM VA-TOBACCO QUIT 1 TO < 5 YRS [place] Nov 24, 2017 09:54 AM CURRENT SMOKER cigarets [place] Nov 24, 2017 09:54 AM V1-PT READY TO SHARAN T TOBACCO USE [place] Mar 25, 2017 01:57 PM CURRENT SMOKER down to 10 cigarettes daily [place] Mar 25, 2017 01:57 PM V1-PT DECLINES TOB ACCO CESSATION MEDS [place] Mar 25, 2017 01:57 PM V1-PT READY TO SHARAN T TOBACCO USE [place] March 04, 2017 02:38 PM CURRENT SMOKER advise stopm [place] Jul 22, 2016 09:29 AM V1-PT NOT INTEREST ED IN QUIT TOBACCO USE [place] Nov 21, 2015 09:21 AM CURRENT SMOKER half a pack a day [place] Nov 21, 2015 09:21 AM V1-PT NOT INTEREST ED IN QUIT TOBACCO USE [place] Nov 23, 2014 08:51 AM CURRENT SMOKER [facility] Nov 23, 2014 08:51 AM V1-PT READY TO SHARAN T TOBACCO USE [place] Dec 16, 2013 02:19 PM CURRENT SMOKER 3/4 pack a day [place] Dec 16, 2013 02:19 PM V1-PT THINKING ABO UT QUIT TOBACCO USE [place] Advance Directives: All historical and current Section [...] Encounter. Date/Time Encounter Note(s) Provider Source Jul 28, 2024 10:05 AM PRIMARY CARE NOTE: LOCAL TITLE: WALK-IN NOTE PRIMARY CARE (T) STANDARD TITLE: PRIMARY CARE NOTE DATE OF NOTE: JUL 28, 2024@10:05 ENTRY DATE: JUL 28, 2024@10:05:24 AUTHOR: CRISTINA CABEZAS COSIGNER: URGENCY: STATUS: COMPLETED Data: 64year old MALE [place] reports to Primary Care clinic for Walk-In visit. 's PCP is AUSTIN BALDWIN, last visit with PCP was , next visit scheduled for . Today Vet walks in to clinic with complaint of needing acupuncture needles removed. Last recorded Vital Signs are: Temperature:97.7 F [36.5 C] (07/25/2024 10:11) Pulse:98 (07/25/2024 10:11) Blood Pressure:127/90 (07/25/2024 10:11) Respiration:18 (07/25/2024 10:11) Pain:10 (07/25/2024 10:11) Vet reports current allergies are: Remote Allergy Data FACILITY ALLERGY/ADR -------- 689^[facility]^[id number] Current Medications from Active Med list include: Active Outpatient Medications (including Supplies): Active Outpatient Medications Status = 1) ACCU-CHEK GUIDE (GLUCOSE) TEST STRIP USE 1 STRIP TO ACTIVE TEST BLOOD SUGARS DIRECTED 2) ACETAMINOPHEN 500MG TAB TAKE ONE TABLET BY MOUTH ACTIVE EVERY 6 HOURS NEEDED FOR PAIN 3) ALBUTEROL 90MCG (CFC-F) 200D ORAL INHL INHALE 1 PUFF ACTIVE BY MOUTH FOUR TIMES DAILY NEEDED FOR BRONCHOSPASM 4) AMLODIPINE BESYLATE 5MG TAB TAKE ONE TABLET BY MOUTH ACTIVE ONCE DAILY FOR BLOOD PRESSURE/HEART, DO NOT TAKE WITH GRAPEFRUIT JUICE 5) CHOLECALCIF 50MCG (D3-2,000UNIT) TAB TAKE ONE TABLET ACTIVE BY MOUTH ONCE DAILY FOR VITAMIN D DEFICIENCY 6) CYCLOBENZAPRINE HCL 10MG TAB TAKE ONE TABLET BY MOUTH ACTIVE EVERY 8 HOURS NEEDED FOR MUSCLE SPASM 7) FENOFIBRATE 145MG TAB TAKE ONE TABLET BY MOUTH ONCE ACTIVE DAILY 8) OMEPRAZOLE 20MG EC CAP TAKE ONE CAPSULE BY MOUTH ACTIVE TWICE DAILY FOR EXCESSIVE PRODUCTION OF STOMACH ACID 9) SEMAGLUTIDE 1MG/0.75ML INJ PEN 3ML INJECT 1MG ACTIVE SUBCUTANEOUSLY ONCE A WEEK FOR TYPE 2 DIABETES MELLITUS Active Non-VA Medications Status = 1) Non-VA ASPIRIN 81MG EC TAB 81MG BY MOUTH EVERY DAY ACTIVE 2) Non-VA BUSPIRONE HCL 5MG TAB 5MG BY MOUTH TWICE DAILY ACTIVE 3) Non-VA CLONAZEPAM 1MG TAB 1MG BY MOUTH TWICE DAILY ACTIVE 4) Non-VA HYDROXYZINE HCL 25MG TAB 25MG BY MOUTH ONCE ACTIVE DAILY 5) Non-VA OLANZAPINE 5MG TAB 5MG BY MOUTH TWICE DAILY ACTIVE 6) Non-VA ONDANSETRON HCL 4MG TAB 4MG BY MOUTH ACTIVE DIRECVTED 7) Non-VA TRAZODONE HCL 100MG TAB 50MG BY MOUTH AT ACTIVE BEDTIME 8) Non-VA VENLAFAXINE HCL 150MG 24HR SA CAP 150MG BY ACTIVE MOUTH ONCE DAILY 17 Total Medications Action: reports to sick call stating he was supposed to remove needles from both ears today but not able to do it by himself Left ear noted to have 5 and right ear with 4 needles located on the outer ear. No pain No erythema all pins removed without difficulty. Ears cleaned with alcohol. Reminders Info Only: [facility] Connect Capable DUE NOW AIMS Testing DUE NOW Home Telehealth ([facility]) Referral Jul 28 Medication Reconciliation DUE NOW Td / Tdap Immunization Mar 20 (Optional) Whole Health Documentation DUE NOW /karlene/ CRISTINA CABEZAS RN PRIMARY CARE RN Signed: 07/28/2024 10:23 CRISTINA CABEZAS [place]
--- OUTSIDE RECORDS SUMMARY | 2024-09-20 05:30 | XMS_ITS | Encounter Summary ---
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 Name Role Phone AUSTIN BALDWIN Primary Care Provider Unavaillegacy health e Insurance Providers: All historical and current [...] Relationship to Policy Lomas PATRICIO MULLIGAN-WN R [place] SPECIAL CLASS PATRICIO ERICKSON Nov 14, 2024 PATRICIO MULLIGAN [id number] Dougie RIVERA PATIENT [facility] MEDICAID MEDICAID MEDIC AID Oct 05, 2016 MEDICAI D [id number] NICOLE,A NALLELY PATIENT MEDICAID MEDICAID [facility] Oct 05, 2014 MEDICAI D [id number] Dougie RIVERA NALLELY PATIENT MEDICARE (WNR) MEDICARE (M) PART A May 05, 2018 PART A [id number] [facility] Dougie RIVERA NALLELY PATIENT MEDICARE (WNR) MEDICARE (M) PART B May 05, 2018 PART B [id number] [facility] Dougie RIVERA PATIENT Selected Encounter This section includes the information on record at ME for the Encounter. Date/Time Encounter Type Encounter Description Reason Provider Source Sep 20, 2024 09:30 AM MTMS BY ANJALI SNEED 15 MIN CLINICAL PHARMACY ICD-10-CM E11.9 Type 2 diabetes mellitus without complications SWAPNIL NEWMAN Nancy Encounter Template Text not used by ME Assessments - Encounter Diagnoses This section includes the primary and secondary diagnoses documented for the Encounter. Date/Time Primary/Secondary Diagnosis Diagnosis Name Provider Source Sep 20, 2024 09:56 AM PRIMARY Type 2 diabetes mellitus without complications SWAPNIL NEWMAN [place] Plan of Treatment: Future Appointments (+ 6 months) and Future Tests (+/- 45 days) The Plan of Treatment section includes future care activities for the [facility] This section includes future appointments and future orders which are active, pending or scheduled. Future Appointments This section includes appointments that were scheduled to occur 6 months from the date of the Encounter, up to a maximum of 20 appointments. The data comes from all ME treatment facilities. Appointment Date/Time Appointment Type Appointme nt Facility Name Oct 06, 2024 10:00 AM AMBULATORY - MEDICINE [facility] [place] [facility] Oct 18, 2024 08:30 AM AMBULATORY - MEDICINE [facility] [place] [facility] Nov 07, 2024 01:15 PM AMBULATORY - MEDICINE [facility] [place] [facility] Nov 08, 2024 10:00 AM AMBULATORY - MEDICINE [facility] [place] [facility] Nov 15, 2024 08:30 AM AM[facility]ULATORY - MEDICINE [facility] Dec 05, 2024 02:15 PM AMBULATORY - MEDICINE [facility] [place] [facility] Dec 08, 2024 09:00 AM AMBULATORY - MEDICINE [facility] [place] [facility] Dec 19, 2024 09:30 AM AMBULATORY - MEDICINE [facility] Dec 19, 2024 10:00 AM AMBULATORY - MEDICINE [facility] Dec 28, 2024 03:00 PM AMBULATORY - MEDICINE [facility] [place] [facility] Jan 09, 2025 01:30 PM AMBULATORY - MEDICINE [facility] [place] [facility] Jan 12, 2025 09:00 AM AMBULATORY - MEDICINE [facility] Jan 26, 2025 09:30 AM AMBULATORY - MEDICINE [facility] [place] [facility] February 06, 2025 09:00 AM AMBULATORY - MEDICINE [facility] February 08, 2025 01:00 PM AMBULATORY - MEDICINE [facility] [place] [facility] February 13, 2025 01:00 PM AMBULATORY - MEDICINE [facility] March 01, 2025 12:30 PM AMBULATORY - MEDICINE [facility] Mar 07, 2025 09:00 AM AMBULATORY - MEDICINE [facility] [facility] Mar 09, 2025 08:30 AM AMBULATORY - MEDICINE [facility] [facility] Mar 14, 2025 09:00 AM AMBULATORY - MEDICINE [facility] [facility] Lab Results: +/- 30 days of the encounter This section includes the Chemistry and Hematology Lab Results on record with ME for the patient. Radiology Reports and Pathology Reports are provided separately, in subsequent sections. Lab Results This section contains the Chemistry/Hematology Results that were resulted 30 days before or 30 daysafter the date of the Encounter. Date/Time Source Result Type Result - Unit Interpretation Reference Range Specimen Type Comment Sep 20, 2024 09:25 AM [facility] [place] [facility] MICROALBUMIN CREATININE RATIO PANEL URINE Spe cimen Type: URINE No comment entered. Ordering Provider: TAMI SANDERS Report Released Date/Time: Apr 19, 2024 10:52 AM Reporting Lab: [facility] [place] [facility] [address] [facility] [address] Performing Lab: [facility] [place] [facility] [address] [facility] [address] MICROALBUMIN/CREATININE RATIO 12.4 mg/g 0-29.9 MICROALBUMIN,QUANTITATIVE 2.3 mg/dL RR U NAVAIL CREATININE URINE 186.00 mg/dL Sep 20, 2024 09:25 AM [facility] [place] [facility] FERRITIN SERUM Specimen Type: SERUM No comment entered. Ordering Provider: ALFREDO SANDERS Report Released Date/Time: Apr 19, 2024 10:52 AM Reporting Lab: [facility] [place] [facility] [address] [facility] [facility] [address] Performing [facility]: [facility] [address] [facility] [address] FERRITIN 248 ng/mL 20-300 Sep 20, 2024 09:25 AM [facility] CBC BLOOD Specimen Type: BLOOD No comment entered. Ordering Provider: ALFREDO SANDERS Report Released Date/Time: Apr 19, 2024 10:52 AM Reporting Lab: [facility] [address] [facility] [address] Performing Lab: [facility] [address] [address] WBC 7.98 10*3/uL 4.50-11.00 RBC 4.46 10*6/uL 4.23-5.66 HGB 13.1 g/dL 12.8-17 HCT 37.7 L 39.2-50.4 MCV 84.5 fL 82-99 MCHC 34.7 g/dL 30.8-35.1 PLT 280 10*3/uL 140-360 RDW-CV 13.9 12.0-16.0 MCH 29.4 pg 26.2-32.6 Sep 20, 2024 09:25 AM [facility] BASIC METABOLIC PANEL (non-fasting) SERUM Spe cimen Type: SERUM No comment entered. Ordering Provider: ALFREDO SANDERS Report Released Date/Time: Apr 19, 2024 10:52 AM Reporting Lab: [facility] [address] [facility] [address] Performing Lab: [address] [address] UREA NITROGEN 7 mg/dL 7-25 GLUCOSE 115 mg/dL H 65-100 SODIUM 140 mmol/L 135-145 POTASSIUM 4.1 mmol/L 3.5-5.0 CHLORIDE 107 mmol/L 100-110 CO2 22 meq/L 20-30 CREATININE, Serum 1.07 mg/dL 0.50-1.40 eGFR(CKD-EPI 2020) 78 mL/min >60 Sep 20, 2024 09:25 AM [facility] IRON & TIBC PANEL SERUM Specimen Type: SERUM No comment entered. Ordering Provider: ALFREDO SANDERS Report Released Date/Time: Apr 19, 2024 10:52 AM Reporting Lab: [facility] [address] [facility] [address] Performing Lab: [facility] [address] [facility] [address] TIBC 352 ug/dL 204-475 IRON 60 ug/dL 40-160 Transferrin Saturation 17.0 L 20.0-50.0 Transferrin (TRF) 267 mg/dL 200-360 Sep 19, 2024 08:34 AM [facility] HEMOGLOBIN A1C PANEL BLOOD Specimen Type: BLO OD Comment: Values obtained from A1C measurements can vary. For atypical A1C assays, a reported value of 7.0 could actually be between 6.72 and 7.28 if measured by a reference method. A reported value of 9.0 could actually be between 8.73 and 9.27. Ref: http://www.ngsp.org/CAPdata.asp Ordering Provider: SWAPNIL NEWMAN Report Released Date/Time: Jul 29, 2024 03:01 PM Reporting Lab: [address] [address] Performing Lab: [address] [address] HEMOGLOBIN A1C 5.7 H 4.0-5.6 Sep 19, 2024 08:34 AM [facility] CREATININE (eGFR 2020) SERUM Specimen Type: S CRYSTAL No comment entered. Ordering Provider: SWAPNIL NEWMAN Report Released Date/Time: Jul 29, 2024 03:01 PM Reporting Lab: [address] [address] Performing Lab: [address] [address] CREATININE, Serum 1.12 mg/dL 0.50-1.40 eGFR(CKD-EPI 2020) 74 mL/min >60 Sep 13, 2024 07:33 AM [facility] HEMOGLOBIN A1C PANEL BLOOD Specimen Type: BLO OD Comment: Values obtained from A1C measurements can vary. For atypical A1C assays, a reported value of 7.0 could actually be between 6.72 and 7.28 if measured by a reference method. A reported value of 9.0 could actually be between 8.73 and 9.27. Ref: http://www.ngsp.org/CAPdata.asp Ordering Provider: SWAPNIL NEWMAN Report Released Date/Time: Sep 07, 2024 03:50 PM Reporting Lab: [facility] [address] [facility] [address] Performing Lab: [facility] [address] [facility] [address] HEMOGLOBIN A1C 5.8 H 4.0-5.6 Sep 13, 2024 07:33 AM [facility] CREATININE (eGFR 2020) SERUM Specimen Type: S CRYSTAL No comment entered. Ordering Provider: SWAPNIL NEWMAN Report Released Date/Time: Sep 07, 2024 03:50 PM Reporting Lab: [facility] [address] [facility] [address] Performing Lab: [facility] [address] [facility] [address] CREATININE, Serum 1.10 mg/dL 0.50-1.40 eGFR(CKD-EPI 2020) 75 mL/min >60 Sep 13, 2024 07:33 AM [facility] LIPID PANEL FASTING SERUM Specimen Type: SERU M No comment entered. Ordering Provider: SWAPNIL NEWMAN Report Released Date/Time: Sep 07, 2024 03:50 PM Reporting Lab: [facility] [address] [facility] [address] Performing Lab: [address] [address] CHOLESTEROL 154 mg/dL TRIGLYCERIDE 248 mg/dL H 0-150 LDL calculated 73 mg/dL 0-129 CHOL/HDL 5.0 HDL CHOLESTEROL 31 mg/dL L 40-60 Vital Signs: All taken on the encounter date This section contains inpatient and outpatient Vital Signs collected on the date of the Encounter. Date/Time Temperature Pulse Blood Pressure Respiratory Rate SP02 Pain Height Weight Body Mass Index Source Sep 20, 2024 10:55 AM 98 76 121/81 18 99 220 34 [place] Sep 20, 2024 09:37 AM 221.8 34 [facility] [place] Social History: Smoking Status (Most current) and Tobacco Use (All prior to encounter date) This section includes the most current, and the historical, smoking and tobacco- related health factors from the ME facility where the Encounter took place. Current Smoking Status This section includes the most current smoking, or tobacco-related health factor, from the ME facility where the Encounter took place. Date/Time Current Smoking Status Comment Facil ity Dec 16, 2023 10:00 AM VA-TOBACCO USE 30 YEARS OR MORE [place] Tobacco Use History This section includes a history of the smoking, or tobacco-related health factors, that were collected on or before the date of the Encounter. The data comes from the ME facility where the Encounter took place. Date/Time Smoking Status/Tobacco Use Comment F acility Dec 16, 2023 10:00 AM VA-TOBACCO USE > 1 5 LESS THAN 30 YEARS [place] Dec 16, 2023 10:00 AM VA-TOBACCO USE 30 YEARS OR MORE [place] Dec 16, 2023 10:00 AM VA-TOBACCO USE ADVICE [place] Dec 16, 2023 10:00 AM VA-TOBACCO USE SEISMIC PROSPECTING SUPERVISOR NO [place] Dec 16, 2023 10:00 AM VA-TOBACCO USE SEISMIC PROSPECTING SUPERVISOR YES [place] Dec 16, 2023 10:00 AM VA-TOBACCO USE MED NO [place] Dec 16, 2023 10:00 AM VA-TOBACCO USE MED YES [place] Dec 16, 2023 10:00 AM VA-TOBACCO USE WI 30 MIN OF WAKEUP [place] Dec 16, 2023 10:00 AM VA-TOBACCO USER EVERY DAY [place] Jan 13, 2023 02:00 PM VA-TOBACCO USE 1 T O < 5 YEARS [place] Jan 13, 2023 02:00 PM VA-TOBACCO USE ADVICE [place] Jan 13, 2023 02:00 PM VA-TOBACCO USE SEISMIC PROSPECTING SUPERVISOR NO [place] Jan 13, 2023 02:00 PM VA-TOBACCO USE MED NO [place] Jan 13, 2023 02:00 PM VA-TOBACCO USE WI 30 MIN OF WAKEUP [place] Jan 13, 2023 02:00 PM VA-TOBACCO USER EVERY DAY [place] Jul 03, 2022 09:00 AM VA-TOBACCO FORMER USER [place] Jul 03, 2022 09:00 AM VA-TOBACCO QUIT 5 TO < 15 YRS [place] Jul 04, 2021 09:00 AM VA-TOBACCO USE > 1 5 LESS THAN 30 YEARS [facility] 30, 2021 09:00 AM VA-TOBACCO USE ADVICE [place] Jul 04, 2021 09:00 AM VA-TOBACCO USE SEISMIC PROSPECTING SUPERVISOR NO [place] Jul 04, 2021 09:00 AM VA-TOBACCO USE MED NO [place] Jul 04, 2021 09:00 AM VA-TOBACCO USE WI 30 MIN OF WAKEUP [place] Jul 04, 2021 09:00 AM VA-TOBACCO USER SOME DAYS [place] Apr 30, 2020 10:39 AM VA-TOBACCO FORMER USER [place] Apr 30, 2020 10:39 AM VA-TOBACCO QUIT 5 TO < 15 YRS [place] Dec 21, 2018 03:15 PM VA-TOBACCO FORMER USER [place] Dec 21, 2018 03:15 PM VA-TOBACCO QUIT 1 TO < 5 YRS [place] Nov 24, 2017 09:54 AM CURRENT SMOKER cigarets [place] Nov 24, 2017 09:54 AM V1-PT READY TO SHARAN T TOBACCO USE [place] Mar 25, 2017 01:57 PM CURRENT SMOKER down to 10 cigarettes daily [place] Mar 25, 2017 01:57 PM V1-PT DECLINES TOB ACCO CESSATION MEDS [place] Mar 25, 2017 01:57 PM V1-PT READY TO SHARAN T TOBACCO USE [place] March 04, 2017 02:38 PM CURRENT SMOKER advise stopm [place] Jul 22, 2016 09:29 AM V1-PT NOT INTEREST ED IN QUIT TOBACCO USE [place] Nov 21, 2015 09:21 AM CURRENT SMOKER half a pack a day [place] Nov 21, 2015 09:21 AM V1-PT NOT INTEREST ED IN QUIT TOBACCO USE [place] Nov 23, 2014 08:51 AM CURRENT SMOKER [facility] Nov 23, 2014 08:51 AM V1-PT READY TO SHARAN T TOBACCO USE [place] Dec 16, 2013 02:19 PM CURRENT SMOKER 3/4 pack a day [place] Dec 16, 2013 02:19 PM V1-PT THINKING ABO UT QUIT TOBACCO USE [place] Advance Directives: All historical and current Section Date Range: From patient's date of to the date document was created. This section includes ALL of a patient's completed or amended VA Advance and Rescinded Directives. The entries below indicate that a directive exists for the patient, but an actual copy is not included with this document. The data comes from all ME facilities. Date Advance Directives Provider Source Dec 12, 2014 ADVANCE DIRECTIVE KATRIN GREEN Encounter Notes: All associated encounter notes This section contains the clinical notes associated to the Encounter. Date/Time Encounter Note(s) Provider Source Dec 14, 2024 02:29 PM ADDENDUM: LOCAL TITLE: Addendum STANDARD TITLE: ADDENDUM DATE OF NOTE: DEC 14, 2024@14:29:20 ENTRY DATE: DEC 14, 2024@14:29:21 AUTHOR: SWAPNIL NEWMAN COSIGNER: URGENCY: STATUS: COMPLETED Will ask ash worker to please notify pt that labwork has been ordered for collection prior to visit. Thank you. /karlene/ Swapnil Newman PharmD Clinical Pharmacy Practitioner Signed: 12/14/2024 14:29 Receipt Acknowledged By: 12/14/2024 15:37 /karlene/ KYLE VERDUZCO Clinical Shed Workers Supervisor == --- Original Document --- 09/20/24 PHARMACY CLINIC NOTE: Known Allergies: CODEINE, OXYCODONE ANGELA RIVERA contacted for diabetes management. Subjective: referred to pharmacy clinic by PCP. Per PCP: i stopped his metformin, will need something else, eGFR of 20 in nov 28, had presented to ed last week had marjuana induced hyperemesis, rossy on top of ckd, stage 4 was noted during course hospitaization, I stopped ACEI, i switch to CCB, last a1c 6.2 - not that bad, can you advise him on diabet agent to replace metformin, he agrees to this consult, I also did nephro consult . Since last visit, pt requested to hold semaglutide d/t nausea. He notes that he never held it as he attributed s/sx to overeating. He did not have these s/sx with lower dose of 1mg though; would like to consider dose reduction vs. cessation. As noted previously, LSMs have lead to >20lb weight loss; cut out sugar, more water. Pt continues on varenicline. Denies any ADRs. No changes in behavior. Has been on it since ~03/20/24 and on dose of 1mg BID. He has had no cigarettes since ~2024. Followed by tobacco cessation clinic. States he will be saving $300/month in cigarettes; has his sister withdraw this into savings account so he does not have it. He notes when he has a craving for cigg it's usually d/t stress or anxiety. He is seeing a therapist regularly. Target Goals: A1C: 7%; FB-110 mg/dl Objective: Diabetes Medication Regimen: semaglutide 2mg once weekly Adherence: N/A HEMOGLOBIN A1C TREND Collection DT Spec HGBA1c 09/19/2024 08:34 BLOOD 5.7 H 09/13/2024 07:33 BLOOD 5.8 H 02/23/2024 09:11 BLOOD 6.4 H 11/25/2023 07:00 BLOOD 6.6 H 04/14/2023 08:41 BLOOD 6.0 H LIPID PANEL TREND Collection DT Spec CHOL HDL CHO/HDL LDL-d LDL-c TRIG 09/13/2024 07:33 SERUM 154 31 L 5.0 73 248 H 02/23/2024 09:11 SERUM 145 38 L 3.8 59 241 H 01/04/2024 08:57 SERUM 166 31 L 5.4 92 Reflex to dLDL 510 H 11/27/2023 10:19 SERUM 179 33 L 5.4 96 251 H 04/14/2023 08:41 SERUM 167 31 L 5.4 99 Reflex to dLDL 421 H CREATININE-EGFR 09/19/24 08:34 1.12 09/13/24 07:33 1.10 04/05/24 08:13 1.35 WT: 238 lb [107.95 kg] (04/19/2024 10:48) WT: 233 lb [105.69 kg] (07/25/2024 10:11) WT: 220 lb (09/07/24) WT: 221.8lb (09/20/24) Patient self-monitoring of blood glucose: Health-Tarik: At home : Patient self-monitors blood glucose 1-2x/week and reports the following (mg/dl): 01/04/24 Last SMBG ~1 week ago; ~106mg/dL. 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 Reports BG readings ~104mg/dL; none >150mg/dL. 03/08/24 Difficulty with SMBG; not SMBG recently. 04/05/24 BG ~100mg/dL. 05/20/24 Reports BG ~106mg/dL. 07/29/24 Not SMBG but will resume. 09/07/24 Not SMBG but will resume. 09/20/24 BG today 110mg/dL. Patient eats on avg. 2-3x day: Diet Patterns: Per previous; not recently eating d/t decreased appetite: B: eggs + toast or Ensure or skips L: sandwich or prepared meals at SO D: varies; [place] provides meals Snacks: ice-cream on occassion Drinks: diet/sugar free Dejesus, Gatorade zero, water (will be getting a Alissa), coffee (with cream and milk) Exercise: Walks every day (5000-10,000 steps/day) HYPOGLYCEMIC Events: 0 in the last 2 weeks Hypoglycemia recognition & treatment reviewed: Yes EtOH/Illicit drugs: Alcohol: denies Tobacco: last cigg 06/19/24; quit x 17 years, when not able to see granddtr anymore, resumed smoking (quit for her) Other: marijuana Other: Denies personal or fhx thyroid cancer or MENS2 Denies personal hx pancreatitis 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 A1c and BG at goal. Will reduce semaglutide d/t concerns of nausea. Counseled on s/sx to monitor for and when to seek medical attn. Encouraged to continue with LSMs. SGLT-2 inhibitor avoided given fluctuation in renal function resulting in several hospitalizations; reassess in the future. If needed, consider Arti 3 in future but given A1c at goal and starting GLP-1 agonist, will not consider at this time. 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 He will ask for assistance from others as possible. Diabetes (Goal A1c<7%, FBG 90-110mg/dL, 2hPP<180mg/dL): - DECREASE semaglutide 1mg once weekly - Monitor for s/sx hypoglycemia and contact clinic if BG consistently < 70mg/dL - Healthy dietary lifestyle modifications encouraged - Repeat A1c: prior to f/u Tobacco Cessation: Congratulated pt on tobacco cessation. Tolerating therapy without ADRs. Followed closely by and f/u with tobacco cessation clinic. Continue varenicline 1mg BID. Per discussion with tobacco cessation clinic provider, will continue through October 2024 and then d/c. Considerations: Initial duration of therapy is 12 weeks with a target quit date within the first 7 days of exposure to varenicline. If the patient stops smoking by week 12, an additional 12 weeks of therapy may increase the likelihood of exterminator termite abstinence. A course of therapy with varenicline beyond 24 weeks is unstudied and is not recommended. Approaches to selecting a tobacco quit date: May either choose a fixed quit date (ie, start varenicline, then quit on day 8) or a flexible quit date (ie, start varenicline, then quit between days 8 to 35). Alternatively, a gradual quit date (ie, start varenicline and reduce smoking 50% by week 4, reduce an additional 50% by week 8, and continue reducing with a goal of complete abstinence by week 12) is acceptable. Monitoring: Monitor for behavioral changes and psychiatric symptoms (eg, agitation, depression, suicidal behavior, suicidal ideation). Counseled extensively. Patient has access to [facility] and states he would go to the hospital as needed. He is followed closely by Dr. Wallace Stephens. Clinic's Next Scheduled Follow-up: 10-12 weeks HTN: at goal; DAMARI-I changed to CCB d/t rise in SCr; f/u nephrology ASCVD: not on statin; on fenofibrate; defer to PCP/review at f/u Microalb: 218.7 H mg/G (01/2024) History of Preventive Care: Most recent visit to match maker: 01/2024 Most recent visit to optometry: 07/2023; T2 Diabetes without retinopathy or macular edema OU Time Spent: 30 minutes PBM PharmD Pharmacotherapy Rem V12: PHARMACIST INTERVENTIONS: TYPE 2 DIABETES MELLITUS Medication Intervention(s) Medication reconciliation (changes to active VA and non-VA medication lists to reconcile differences) Changes to medication lists made Update dose, frequency, duration and/or dosage form of medication /karlene/ Swapnil Newman PharmD Clinical Pharmacy Practitioner Signed: 09/20/2024 09:56 12/14/2024 ADDENDUM STATUS: UNSIGNED You may not VIEW this UNSIGNED Addendum. SWAPNIL NEWMAN Sep 20, 2024 09:32 AM PHARMACY OUTPATIEN T NOTE: LOCAL TITLE: PHARMACY CLINIC NOTE STANDARD TITLE: PHARMACY OUTPATIENT NOTE DATE OF NOTE: SEP 20, 2024@09:32 ENTRY DATE: SEP 20, 2024@09:32:41 AUTHOR: SWAPNIL NEWMAN COSIGNER: URGENCY: STATUS: COMPLETED PHARMACY CLINIC NOTE Has ADDENDA Known Allergies: CODEINE, OXYCODONE ANGELA RIVERA contacted for diabetes management. Subjective: [place] referred to pharmacy clinic by PCP. Per PCP: i stopped his metformin, will need something else, eGFR of 20 in nov 28, had presented to ed last week had marjuana induced hyperemesis, rossy on top of ckd, stage 4 was noted during course hospitaization, I stopped ACEI, i switch to CCB, last a1c 6.2 - not that bad, can you advise him on diabet agent to replace metformin, he agrees to this consult, I also did nephro consult . Since last visit, pt requested to hold semaglutide d/t nausea. He notes that he never held it as he attributed s/sx to overeating. He did not have these s/sx with lower dose of 1mg though; would like to consider dose reduction vs. cessation. As noted previously, LSMs have lead to >20lb weight loss; cut out sugar, more water. Pt continues on varenicline. Denies any ADRs. No changes in behavior. Has been on it since ~03/20/24 and on dose of 1mg BID. He has had no cigarettes since ~2024. Followed by tobacco cessation clinic. States he will be saving $300/month in cigarettes; has his sister withdraw this into savings account so he does not have it. He notes when he has a craving for cigg it's usually d/t stress or anxiety. He is seeing a therapist regularly. Target Goals: A1C: 7%; FB-110 mg/dl Objective: Diabetes Medication Regimen: semaglutide 2mg once weekly Adherence: N/A HEMOGLOBIN A1C TREND Collection DT Spec HGBA1c 09/19/2024 08:34 BLOOD 5.7 H 09/13/2024 07:33 BLOOD 5.8 H 02/23/2024 09:11 BLOOD 6.4 H 11/25/2023 07:00 BLOOD 6.6 H 04/14/2023 08:41 BLOOD 6.0 H LIPID PANEL TREND Collection DT Spec CHOL HDL CHO/HDL LDL-d LDL-c TRIG 09/13/2024 07:33 SERUM 154 31 L 5.0 73 248 H 02/23/2024 09:11 SERUM 145 38 L 3.8 59 241 H 01/04/2024 08:57 SERUM 166 31 L 5.4 92 Reflex to dLDL 510 H 11/27/2023 10:19 SERUM 179 33 L 5.4 96 251 H 04/14/2023 08:41 SERUM 167 31 L 5.4 99 Reflex to dLDL 421 H CREATININE-EGFR 09/19/24 08:34 1.12 09/13/24 07:33 1.10 04/05/24 08:13 1.35 WT: 238 lb [107.95 kg] (04/19/2024 10:48) WT: 233 lb [105.69 kg] (07/25/2024 10:11) WT: 220 lb (09/07/24) WT: 221.8lb (09/20/24) Patient self-monitoring of blood glucose: [facility]: At home : Patient self-monitors blood glucose 1-2x/week and reports the following (mg/dl): 01/04/24 Last SMBG ~1 week ago; ~106mg/dL. 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 Reports BG readings ~104mg/dL; none >150mg/dL. 03/08/24 Difficulty with SMBG; not SMBG recently. 04/05/24 BG ~100mg/dL. 05/20/24 Reports BG ~106mg/dL. 07/29/24 Not SMBG but will resume. 09/07/24 Not SMBG but will resume. 09/20/24 BG today 110mg/dL. Patient eats on avg. 2-3x day: Diet Patterns: Per previous; not recently eating d/t decreased appetite: B: eggs + toast or Ensure or skips L: sandwich or prepared meals at SO D: varies; [place] [facility] provides meals Snacks: ice-cream on occassion Drinks: diet/sugar free Dejesus, Gatorade zero, water (will be getting a Alissa), coffee (with cream and milk) Exercise: Walks every day (5000-10,000 steps/day) HYPOGLYCEMIC Events: 0 in the last 2 weeks Hypoglycemia recognition & treatment reviewed: Yes EtOH/Illicit drugs: Alcohol: denies Tobacco: last cigg 06/19/24; quit x 17 years, when not able to see granddtr anymore, resumed smoking (quit for her) Other: marijuana Other: Denies personal or fhx thyroid cancer or MENS2 Denies personal hx pancreatitis 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 A1c and BG at goal. Will reduce semaglutide d/t concerns of nausea. Counseled on s/sx to monitor for and when to seek medical attn. Encouraged to continue with LSMs. SGLT-2 inhibitor avoided given fluctuation in renal function resulting in several hospitalizations; reassess in the future. If needed, consider Arti 3 in future but given A1c at goal and starting GLP-1 agonist, will not consider at this time. 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 He will ask for assistance from others as possible. Diabetes (Goal A1c<7%, FBG 90-110mg/dL, 2hPP<180mg/dL): - DECREASE semaglutide 1mg once weekly - Monitor for s/sx hypoglycemia and contact clinic if BG consistently < 70mg/dL - Healthy dietary lifestyle modifications encouraged - Repeat A1c: prior to f/u Tobacco Cessation: Congratulated pt on tobacco cessation. Tolerating therapy without ADRs. Followed closely by and f/u with tobacco cessation clinic. Continue varenicline 1mg BID. Per discussion with tobacco cessation clinic provider, will continue through October 2024 and then d/c. Considerations: Initial duration of therapy is 12 weeks with a target quit date within the first 7 days of exposure to varenicline. If the patient stops smoking by week 12, an additional 12 weeks of therapy may increase the likelihood of mcfp abstinence. A course of therapy with varenicline beyond 24 weeks is unstudied and is not recommended. Approaches to selecting a tobacco quit date: May either choose a fixed quit date (ie, start varenicline, then quit on day 8) or a flexible quit date (ie, start varenicline, then quit between days 8 to 35). Alternatively, a gradual quit date (ie, start varenicline and reduce smoking 50% by week 4, reduce an additional 50% by week 8, and continue reducing with a goal of complete abstinence by week 12) is acceptable. Monitoring: Monitor for behavioral changes and psychiatric symptoms (eg, agitation, depression, suicidal behavior, suicidal ideation). Counseled extensively. [facility] and states he would go to the hospital as needed. He is followed closely by Dr. Wallace Stephens. Clinic's Next Scheduled Follow-up: 10-12 weeks HTN: at goal; DAMARI-I changed to CCB d/t rise in SCr; f/u nephrology ASCVD: not on statin; on fenofibrate; defer to PCP/review at f/u Microalb: 218.7 H mg/G (01/2024) History of Preventive Care: Most recent visit to match maker: 01/2024 Most recent visit to optometry: 07/2023; T2 Diabetes without retinopathy or macular edema OU Time Spent: 30 minutes PBM PharmD Pharmacotherapy Rem V12: PHARMACIST INTERVENTIONS: TYPE 2 DIABETES MELLITUS Medication Intervention(s) Medication reconciliation (changes to active VA and non-VA medication lists to reconcile differences) Changes to medication lists made Update dose, frequency, duration and/or dosage form of medication /karlene/ Swapnil Newman PharmD Clinical Pharmacy Practitioner Signed: 09/20/2024 09:56 12/14/2024 ADDENDUM STATUS: COMPLETED Will ask ash worker to please notify pt that labwork has been ordered for collection prior to visit. Thank you. /jaya Newman PharmD Clinical Pharmacy Practitioner Signed: 12/14/2024 14:29 Receipt Acknowledged By: 12/14/2024 15:37 /jaya VERDUZCO Clinical Shed Workers Supervisor 12/14/2024 ADDENDUM STATUS: COMPLETED called patient to let him know that labs have been ordered /jaya VERDUZCO Clinical Shed Workers Supervisor Signed: 12/14/2024 15:38 SWAPNIL NEWMAN
--- OUTSIDE RECORDS SUMMARY | 2024-10-06 06:00 | XMS_ITS | Encounter Summary ---
Author Name [facility] Organization [facility] [place] Address [address] [place] [address] Care Team Providers Care Before School Name Role Phone AUSTIN BALDWIN Primary Care Provider [facility] Insurance Providers: All historical and current [...] Relationship to Policy Lomas PATRICIO MULLIGAN-ESME R OR SPECIAL CLASS PATRICIO ERICKSON Nov 14, 2024 PATRICIO MULLIGAN [id number] Dougie RIVERA PATIENT [facility] MEDICAID MEDICAID MEDIC AID Oct 05, 2016 MEDICAI D [id number] NICOLE,A NALLELY PATIENT MEDICAID MEDICAID [facility] STAND BEATRICE Oct 05, 2014 MEDICAI D [id number] Dougie RIVERA NALLELY PATIENT MEDICARE (WNR) MEDICARE (M) PART A May 05, 2018 PART A [id number] [facility] [phone] Dougie RIVERA NALLELY PATIENT MEDICARE (WNR) MEDICARE (M) PART B May 05, 2018 PART B [id number] Dougie RIVERA PATIENT Selected Encounter This section includes the information on record at OR for the Encounter. Date/Time Encounter Type Encounter Description Reason Provider Source Oct 06, 2024 10:00 AM PSYTX W PT 30 MINUTES PRIMARY CARE/MEDICINE ICD-10-CM Z72.0 Tobacco use SCARLET LUGO Nancy Encounter Template Text not used by OR Assessments - Encounter Diagnoses This section includes the primary and secondary diagnoses documented for the Encounter. Date/Time Primary/Secondary Diagnosis Diagnosis Name Provider Source Oct 06, 2024 10:07 AM PRIMARY Tobacco use LUCINA LUGO [facility] Plan of Treatment: Future Appointments (+ 6 months) and Future Tests (+/- 45 days) The Plan of Treatment section includes future care activities for the [facility] This section includes future appointments and future orders which are active, pending or scheduled. Future Appointments This section includes appointments that were scheduled to occur 6 months from the date of the Encounter, up to a maximum of 20 appointments. The data comes from all [place] treatment facilities. Appointment Date/Time Appointment Type Appointme nt Facility Name Oct 18, 2024 08:30 AM AMBULATORY - MEDICINE [facility] [place] Nov 07, 2024 01:15 PM AMBULATORY - MEDICINE [facility] [place] Nov 08, 2024 10:00 AM AMBULATORY - MEDICINE [facility] [place] [facility] Nov 15, 2024 08:30 AM [facility]ORY - MEDICINE [facility] Dec 05, 2024 02:15 PM AMBULATORY - MEDICINE [facility] [place] [facility] Dec 08, 2024 09:00 AM AMBULATORY - MEDICINE [facility] [place] [facility] Dec 19, 2024 09:30 AM [facility]IC[facility] Dec 19, 2024 10:00 AM [facility] Dec 28, 2024 03:00 PM AMBULATORY - MEDICINE [facility] [place] [facility] Jan 09, 2025 01:30 PM AMBULATORY - MEDICINE [facility] [place] [facility] Jan 12, 2025 09:00 AM [facility] Jan 26, 2025 09:30 AM [facility]ULATORY - MEDICINE [facility] [place] [facility] February 06, 2025 09:00 AM [facility] February 08, 2025 01:00 PM AMBULATORY - MEDICINE [facility] [place] February 13, 2025 01:00 PM AMBULATORY - MEDICINE [facility] March 01, 2025 12:30 PM AMBULATORY - MEDICINE [facility] Mar 07, 2025 09:00 AM AMBULATORY - MEDICINE [facility] [place] [facility] Mar 09, 2025 08:30 AM [facility] Mar 14, 2025 09:00 AM AMBULATORY - MEDICINE [facility] [place] [facility] Mar 14, 2025 10:00 AM AMBULATORY - MEDICINE [facility] Lab Results: +/- 30 days of the encounter This section includes the Chemistry and Hematology Lab Results on record with OR for the patient. Radiology Reports and Pathology Reports are provided separately, in subsequent sections. Lab Results This section contains the Chemistry/Hematology Results that were resulted 30 days before or 30 daysafter the date of the Encounter. Date/Time Source Result Type Result - Unit Interpretation Reference Range Specimen Type Comment Sep 20, 2024 09:25 AM [facility] MICROALBUMIN CREATININE RATIO PANEL URINE Spe cimen Type: URINE No comment entered. Ordering Provider: TAMI SANDERS Report Released Date/Time: Apr 19, 2024 10:52 AM Reporting Lab: [facility] [place] [facility] [address] [facility] [address] Performing Lab: [facility] [place] [facility] [address] [facility] [address] MICROALBUMIN/CREATININE RATIO 12.4 mg/g 0-29.9 MICROALBUMIN,QUANTITATIVE 2.3 mg/dL RR U NAVAIL CREATININE URINE 186.00 mg/dL Sep 20, 2024 09:25 AM [facility] [place] [facility] FERRITIN SERUM Specimen Type: SERUM No comment entered. Ordering Provider: ALFREDO SANDERS Report Released Date/Time: Apr 19, 2024 10:52 AM Reporting Lab: [facility] [place] [facility] [address] [facility] [address] Performing Lab: [facility] [address] [facility] [address] FERRITIN 248 ng/mL 20-300 Sep 20, 2024 09:25 AM [facility] CBC BLOOD Specimen Type: BLOOD No comment entered. Ordering Provider: ALFREDO SANDERS Report Released Date/Time: Apr 19, 2024 10:52 AM Reporting Lab: [facility] [address] [facility] [address] Performing Lab: [facility] [address] [facility] [address] WBC 7.98 10*3/uL 4.50-11.00 RBC 4.46 10*6/uL 4.23-5.66 HGB 13.1 g/dL 12.8-17 HCT 37.7 L 39.2-50.4 MCV 84.5 fL 82-99 MCHC 34.7 g/dL 30.8-35.1 PLT 280 10*3/uL 140-360 RDW-CV 13.9 12.0-16.0 MCH 29.4 pg 26.2-32.6 Sep 20, 2024 09:25 AM [facility] BASIC METABOLIC PANEL (non-fasting) SERUM Spe cimen Type: SERUM No comment entered. Ordering Provider: ALFREDO SANDERS Report Released Date/Time: Apr 19, 2024 10:52 AM Reporting Lab: [address] [address] Performing Lab: [address] [address] UREA NITROGEN 7 mg/dL 7-25 GLUCOSE 115 mg/dL H 65-100 SODIUM 140 mmol/L 135-145 POTASSIUM 4.1 mmol/L 3.5-5.0 CHLORIDE 107 mmol/L 100-110 CO2 22 meq/L 20-30 CREATININE, Serum 1.07 mg/dL 0.50-1.40 eGFR(CKD-EPI 2020) 78 mL/min >60 Sep 20, 2024 09:25 AM [facility] IRON & TIBC PANEL SERUM Specimen Type: SERUM No comment entered. Ordering Provider: ALFREDO SANDERS Report Released Date/Time: Apr 19, 2024 10:52 AM Reporting Lab: [facility] [address] [facility] [address] Performing Lab: [facility] [address] [facility] [address] TIBC 352 ug/dL 204-475 IRON 60 ug/dL 40-160 Transferrin Saturation 17.0 L 20.0-50.0 Transferrin (TRF) 267 mg/dL 200-360 Sep 19, 2024 08:34 AM [facility] HEMOGLOBIN A1C PANEL BLOOD Specimen Type: BLO OD Comment: Values obtained from A1C measurements can vary. For atypical A1C assays, a reported value of 7.0 could actually be between 6.72 and 7.28 if measured by a reference method. A reported value of 9.0 could actually be between 8.73 and 9.27. Ref: http://www.ngsp.org/CAPdata.asp Ordering Provider: SWAPNIL SCHOFIELD Report Released Date/Time: Jul 29, 2024 03:01 PM Reporting Lab: [address] [address] Performing Lab: [address] [address] HEMOGLOBIN A1C 5.7 H 4.0-5.6 Sep 19, 2024 08:34 AM [facility] CREATININE (eGFR 2020) SERUM Specimen Type: S CRYSTAL No comment entered. Ordering Provider: SWAPNIL SCHOFIELD Report Released Date/Time: Jul 29, 2024 03:01 PM Reporting Lab: [address] [address] Performing Lab: [address] [address] CREATININE, Serum 1.12 mg/dL 0.50-1.40 eGFR(CKD-EPI 2020) 74 mL/min >60 Sep 13, 2024 07:33 AM [facility] HEMOGLOBIN A1C PANEL BLOOD Specimen Type: BLO OD Comment: Values obtained from A1C measurements can vary. For atypical A1C assays, a reported value of 7.0 could actually be between 6.72 and 7.28 if measured by a reference method. A reported value of 9.0 could actually be between 8.73 and 9.27. Ref: http://www.ngsp.org/CAPdata.asp Ordering Provider: SWAPNIL SCHOFIELD Report Released Date/Time: Sep 07, 2024 03:50 PM Reporting Lab: [facility] [address] [facility] [address] [facility]forming [facility] [address] HEMOGLOBIN A1C 5.8 H 4.0-5.6 Sep 13, 2024 07:33 AM [facility] CREATININE (eGFR 2020) SERUM Specimen Type: S CRYSTAL No comment entered. Ordering Provider: SWAPNIL SCHOFIELD Report Released Date/Time: Sep 07, 2024 03:50 PM Reporting Lab: [address] [address] Performing Lab: [address] [address] CREATININE, Serum 1.10 mg/dL 0.50-1.40 eGFR(CKD-EPI 2020) 75 mL/min >60 Sep 13, 2024 07:33 AM [facility] LIPID PANEL FASTING SERUM Specimen Type: SERU M No comment entered. Ordering Provider: SWAPNIL SCHOFIELD Report Released Date/Time: Sep 07, 2024 03:50 PM Reporting Lab: [address] [address] Performing Lab: [address] [address] CHOLESTEROL 154 mg/dL TRIGLYCERIDE 248 mg/dL H 0-150 LDL calculated 73 mg/dL 0-129 CHOL/HDL 5.0 HDL CHOLESTEROL 31 mg/dL L 40-60 Social History: Smoking Status (Most current) and Tobacco Use (All prior to encounter date) This section includes the most current, and the historical, smoking and tobacco- related health factors from the [facility] where the Encounter took place. Current Smoking Status This section includes the most current smoking, or tobacco-related health factor, from the OR facility where the Encounter took place. Date/Time Current Smoking Status Comment Facil ity Dec 16, 2023 10:00 AM VA-TOBACCO USE 30 YEARS OR MORE [facility] Tobacco Use History This section includes a history of the smoking, or tobacco-related health factors, that were collected on or before the date of the Encounter. The data comes from the [place] facility where the Encounter took place. 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 [facility] Dec 16, 2023 10:00 AM VA-TOBACCO USE CLERICAL AIDE TEACHER YES [facility] Dec 16, 2023 10:00 AM VA-TOBACCO USE MED NO [facility] Dec 16, 2023 10:00 AM VA-TOBACCO USE MED YES [facility] Dec 16, 2023 10:00 AM VA-TOBACCO USE WI 30 MIN OF WAKEUP [facility] Dec 16, 2023 10:00 AM VA-TOBACCO USER EVERY DAY [facility] Jan 13, 2023 02:00 PM VA-TOBACCO USE 1 T O < 5 YEARS [facility] Jan 13, 2023 02:00 PM VA-TOBACCO USE ADVICE [facility] Jan 13, 2023 02:00 PM VA-TOBACCO USE 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 [facility] Jan 13, 2023 02:00 PM VA-TOBACCO USE MED NO [facility] Jan 13, 2023 02:00 PM VA-TOBACCO USE WI 30 MIN OF WAKEUP [facility] Jan 13, 2023 02:00 PM VA-TOBACCO USER EVERY DAY [facility] Jul 03, 2022 09:00 AM VA-TOBACCO FORMER USER [facility] Jul 03, 2022 09:00 AM VA-TOBACCO QUIT 5 TO < 15 YRS [facility] Jul 04, 2021 09:00 AM VA-TOBACCO USE > 1 5 LESS THAN 30 YEARS [facility] Jul 04, 2021 09:00 AM VA-TOBACCO USE ADVICE [facility] Jul 04, 2021 09:00 AM VA-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 USE 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 [facility] Jul 04, 2021 09:00 AM VA-TOBACCO USE MED NO [facility] Jul 04, 2021 09:00 AM VA-TOBACCO USE WI 30 MIN OF WAKEUP [facility] Jul 04, 2021 09:00 AM VA-TOBACCO USER SOME DAYS [facility] Apr 30, 2020 10:39 AM VA-TOBACCO FORMER USER [facility] Apr 30, 2020 10:39 AM VA-TOBACCO QUIT 5 TO < 15 YRS [facility] Dec 21, 2018 03:15 PM VA-TOBACCO FORMER USER [facility] Dec 21, 2018 03:15 PM VA-TOBACCO QUIT 1 TO < 5 YRS [facility] Nov 24, 2017 09:54 AM CURRENT SMOKER cigarets [facility] Nov 24, 2017 09:54 AM V1-PT READY TO SHARAN T TOBACCO USE [facility] Mar 25, 2017 01:57 PM CURRENT SMOKER down to 10 cigarettes daily [facility] Mar 25, 2017 01:57 PM V1-PT DECLINES TOB ACCO CESSATION MEDS [facility] Mar 25, 2017 01:57 PM V1-PT READY TO SHARAN T TOBACCO USE [facility] March 04, 2017 02:38 PM CURRENT SMOKER advise stopm [facility] Jul 22, 2016 09:29 AM V1-PT NOT INTEREST ED IN QUIT TOBACCO USE [facility] Nov 21, 2015 09:21 AM CURRENT SMOKER half a pack a day [facility] Nov 21, 2015 09:21 AM V1-PT NOT INTEREST ED IN QUIT TOBACCO USE [facility] Nov 23, 2014 08:51 AM CURRENT SMOKER [facility] Nov 23, 2014 08:51 AM V1-PT READY TO SHARAN T TOBACCO USE [facility] Dec 16, 2013 02:19 PM CURRENT SMOKER 3/4 pack a day [facility] Dec 16, 2013 02:19 PM V1-PT THINKING ABO UT QUIT TOBACCO USE [facility] Advance Directives: All historical and current Section Date Range: From patient's date of to the date document was created. This section includes ALL of a patient's completed or amended OR Advance and Rescinded Directives. The entries below indicate that a directive exists for the patient, but an actual copy is not included with this document. The data comes from all OR facilities. Date Advance Directives Provider Source Dec 12, 2014 ADVANCE DIRECTIVE KATRIN GREEN Encounter Notes: All associated encounter notes This section contains the clinical notes associated to the Encounter. Date/Time Encounter Note(s) Provider Source Oct 06, 2024 10:15 AM ADDENDUM: LOCAL TITLE: Addendum STANDARD TITLE: ADDENDUM DATE OF NOTE: OCT 06, 2024@10:15:30 ENTRY DATE: OCT 06, 2024@10:15:32 AUTHOR: LUCINA LUGO EXP COSIGNER: URGENCY: STATUS: COMPLETED alerting amsa to rtc in chart. please send vvc link too thank you /karlene/ Lucina Lugo, PhD Clinical Psychologist Signed: 10/06/2024 10:15 Receipt Acknowledged By: 10/06/2024 11:39 /karlene/ JERAMY MASON Advanced Territory Sales Representative --- Original Document --- 10/06/24 TOBACCO CESSATION NOTE: [place] Video Connect (VVC) Standard Documentation VVC Clinician Resources Only: E911 (Emergency Call Relay Center): [phone] [facility] Crisis Line - 988 then press #1. C[facility] Suicide Coordinator ? [phone], Ext. [phone]; Back-up Ext. [phone] [place] Police, CWM, Dianelys ? [phone] Introduction: Visit is being conducted by [place] Inside Social Connect. identified with 2 identifiers: [X] Full Name [X] Date of [ ] VA ID Card Emergency Plan: confirmed and/or provided the following information in case of emergency or technology failure. PATIENT PHONE - PHONE NUMBER [CELLULAR] - Is patient phone number correct, if not, enter below: 's phone number: ANGELA RIVERA [address], [address] 's present location and address for appointment: home [place]'s emergency contact name and phone number: chart reported that location is private and safe: Yes Informed Consent: informed of the risks and benefits of Telehealth video care. [place] has the right to refuse video services. If refuses video visit, a [id number] visit will be scheduled. verbalized consent for this video visit: Yes provided consent for any other persons present for visit: N/A If yes, who and relationship to patient: Secure visit: Visit was locked for security and privacy:Yes Smoking Cess f/u DATE: 10/06/24 DURATION OF COUNSELIN min DX: tobacco use disorder, mod REASON FOR ENCOUNTER: [place] attended session for smoking cessation. SUMMARY OF SESSION: Current Session focused on AARM Strategy for coping with smoking triggers, coping with high risk situations, identifying and counteracting resumption thoughts, and how to cope with a smoking slip. He stated that he was getting nausous with the chantix. He is not smoking. He feels that he is not interested in cigarettes. He feels like he has broke the habbit of smoking. He is associated more with people who don't smoke. However, he stated that he has been around other smokers and does not have urges. He has saved a lot of money. INTERVENTIONS: Psychoeducation regarding AARM (avoiding, altering, replacing,and [...] was reported. No imminent risk reported. IMPRESSIONS: [place] is taking chanitx. No longer smoking. Chantix course of 6 months end of Oct. PLAN: 1) will return on 11/08/24 at 10am via [facility] 2) continue chantix and he will stop this month [employer] COACHING SKILLS Coaching or Motivational Interviewing skills used. /es/ Lucina Lugo, PhD Clinical Psychologist Signed: 10/06/2024 10:14 LUCINA LUGO [facility] Oct 06, 2024 10:04 AM SMOKING CESSATION NOTE: LOCAL TITLE: TOBACCO CESSATION NOTE STANDARD TITLE: SMOKING CESSATION NOTE DATE OF NOTE: OCT 06, 2024@10:04 ENTRY DATE: OCT 06, 2024@10:04:24 AUTHOR: LUCINA LUGO EXP COSIGNER: URGENCY: STATUS: COMPLETED TOBACCO CESSATION NOTE Has ADDENDA [place] Video Connect (VVC) Standard Documentation VV Clinician Resources Only: E911 (Emergency Call Relay Center): [phone] [employer] Crisis Line - 988 then press #1. CWM Suicide Coordinator ? [phone], Ext. [phone]; Back-up Ext. [phone] [place] Police, Dianelys [place] ? [phone] Introduction: Visit is being conducted by [place] Inside Social Connect. identified with 2 identifiers: [X] Full Name [X] Date of [ ] VA ID Card Emergency Plan: confirmed and/or provided the following information in case of emergency or technology failure. PATIENT PHONE - PHONE NUMBER [CELLULAR] - Is patient phone number correct, if not, enter below: [place]'s phone number: ANGELA RIVERA [address], [address] [place]'s present location and address for appointment: home 's emergency contact name and phone number: chart [place] reported that location is private and safe: Yes Informed Consent: informed of the risks and benefits of Telehealth video care. has the right to refuse video services. If refuses video visit, a [id number] visit will be scheduled. [place] verbalized consent for this video visit: Yes provided consent for any other persons present for visit: N/A If yes, who and relationship to patient: Secure visit: Visit was locked for security and privacy:Yes Smoking Cess f/u DATE: 10/06/24 DURATION OF COUNSELIN min DX: tobacco use disorder, mod REASON FOR ENCOUNTER: [place] attended session for smoking cessation. SUMMARY OF SESSION: Current Session focused on AARM Strategy for coping with smoking triggers, coping with high risk situations, identifying and counteracting resumption thoughts, and how to cope with a smoking slip. He stated that he was getting nausous with the chantix. He is not smoking. He feels that he is not interested in cigarettes. He feels like he has broke the habbit of smoking. He is associated more with people who don't smoke. However, he stated that he has been around other smokers and does not have urges. He has saved a lot of money. INTERVENTIONS: Psychoeducation regarding AARM (avoiding, altering, replacing,and [...] was reported. No imminent risk reported. IMPRESSIONS: [place] is taking chanitx. No longer smoking. Chantix course of 6 months end of Oct. PLAN: 1) will return on 11/08/24 at 10am via VVC 2) continue chantix and he will stop this month [employer] COACHING SKILL[employer] Coaching or Motivational Interviewing skills used. /karlene/ Lucina Lugo PhD Clinical Psychologist Signed: 10/06/2024 10:14 10/06/2024 ADDENDUM STATUS: COMPLETED alerting amsa to rtc in chart. please send vvc link too thank you /karlene/ Lucina Lugo PhD Clinical Psychologist Signed: 10/06/2024 10:15 Receipt Acknowledged By: * AWAITING SIGNATURE * JERAMY MASON,LUCINA TABOR
--- OUTSIDE RECORDS SUMMARY | 2024-10-18 04:30 | XMS_ITS | Encounter Summary ---
Author Name [facility] Organization [facility] [place] Address [address] [place] [address] Care Team Providers Care Alto Singer Name Role Phone AUSTIN BALDWIN Primary Care [...] Relationship to Policy Lomas PATRICIO MULLIGAN-WN R [place] SPECIAL CLASS PATRICIO ERICKSON Nov 14, 2024 PATRICIO MULLIGAN [id number] [phone] NICOLE,A NALLELY PATIENT [facility] MEDICAID MEDICAID MEDIC AID Oct 05, 2016 MEDICAI D [id number] NICOLE,A NALLELY PATIENT MEDICAID MEDICAID [facility] Oct 05, 2014 MEDICAI D [id number] NICOLE,Dougie NALLELY PATIENT MEDICARE (WNR) MEDICARE (M) PART A May 05, 2018 PART A [id number] Dougie RIVERA NALLELY PATIENT MEDICARE (WNR) MEDICARE (M) PART B May 05, 2018 PART B [id number] [phone] Dougie RIVERA PATIENT Selected Encounter This section includes the information on record at [place] for the Encounter. Date/Time Encounter Type Encounter Description Reason Provider Source Oct 18, 2024 08:30 AM OFFICE O/P EST MOD 30 MIN RENAL/NEPHROL(EXC EPT DIALYSIS) ICD-10-CM N18.30 Chronic kidney disease, stage 3 unspecified SASHA SANDERS [facility] Encounter Template Text not used by [place] Assessments - Encounter Diagnoses This section includes the primary and secondary diagnoses documented for the Encounter. Date/Time Primary/Secondary Diagnosis Diagnosis Name Provider Source Oct 19, 2024 11:09 AM PRIMARY Chronic kidney disease, stage 3 unspecified SANDERSJENNIFER PEDERSEN DAMIAN A [place] [facility] Oct 19, 2024 11:09 AM SECONDARY Essential (primary) hypertension JENNIFER SANDERS DAMIAN A [place] [facility] [place] [facility] Oct 19, 2024 11:09 AM SECONDARY Type 2 diabetes mellitus without complications MARILYNJENNIFER SALGADO Dougie [facility] Plan of Treatment: Future Appointments (+ 6 months) and Future Tests (+/- 45 days) The Plan of Treatment section includes future care activities for the patient from all [place] [facility]. This section includes future appointments and future orders which are active, pending or scheduled. Future Appointments This section includes appointments that were scheduled to occur 6 months from the date of the Encounter, up to a maximum of 20 appointments. The data comes from all [place] treatment facilities. Appointment Date/Time Appointment Type Appointme nt Facility Name Nov 07, 2024 01:15 PM AMBULATORY - MEDICINE [place] [facility] [place] [facility] Nov 08, 2024 10:00 AM AM[facility]ULATORY [place] [facility]IC[place] [facility] [place] [facility] Nov 15, 2024 08:30 AM [facility] Dec 05, 2024 02:15 PM AMBULATORY - MEDICINE [place] [facility] [place] [facility] Dec 08, 2024 09:00 AM AMBULATORY - MEDICINE [place] [facility] [place] [facility] Dec 19, 2024 09:30 AM [facility] Dec 19, 2024 10:00 AM [facility]ORY - [facility] Dec 28, 2024 03:00 PM AMBULATORY - MEDICINE [place] [facility] [place] [facility] Jan 09, 2025 01:30 PM [facility] [place] [facility] [place] [facility] Jan 12, 2025 09:00 AM [facility] - MEDICINE [facility] Jan 26, 2025 09:30 AM [facility] [place] [facility] February 06, 2025 09:00 AM [facility]ORY - MEDICINE [facility] February 08, 2025 01:00 PM [facility]ULATORY [facility]INE [place] [facility] [place] [facility] February 13, 2025 01:00 PM [facility]ORY - MEDICINE [facility] March 01, 2025 12:30 PM [facility]ATORY - MEDICINE [facility] Mar 07, 2025 09:00 AM [facility]UL[facility] [place] [facility] Mar 09, 2025 08:30 AM [facility]UL[facility] [place] [facility] Mar 14, 2025 09:00 AM [facility]ULAT[facility]ICINE [facility] [place] [facility] Mar 14, 2025 10:00 AM AMBULATORY - MEDICINE [place] [facility] [place] [facility] Mar 14, 2025 10:15 AM AMBULATORY - MEDICINE [place] [facility] [place] [facility] Lab Results: +/- 30 days of the encounter This section includes the Chemistry and Hematology Lab Results on record with [place] for the patient. Radiology Reports and Pathology Reports are provided separately, in subsequent sections. Lab Results This section contains the Chemistry/Hematology Results that were resulted 30 days before or 30 daysafter the date of the Encounter. Date/Time Source Result Type Result - Unit Interpretation Reference Range Specimen Type Comment Sep 20, 2024 09:25 AM [facility] MICROALBUMIN CREATININE RATIO PANEL URINE Spe cimen Type: URINE No comment entered. Ordering Provider: TAMI SANDERS Report Released Date/Time: Apr 19, 2024 10:52 AM Reporting Lab: [place] [facility] [place] [facility] [address] [facility] [address] Performing Lab: [place] [facility] [address] [address] MICROALBUMIN/CREATININE RATIO 12.4 mg/g 0-29.9 MICROALBUMIN,QUANTITATIVE 2.3 mg/dL RR U NAVAIL CREATININE URINE 186.00 mg/dL Sep 20, 2024 09:25 AM [facility] FERRITIN SERUM Specimen Type: SERUM No comment entered. Ordering Provider: ALFREDO SANDERS Report Released Date/Time: Apr 19, 2024 10:52 AM Reporting Lab: [facility] [address] [facility] [address] Performing Lab: [address] [address] FERRITIN 248 ng/mL 20-300 Sep 20, 2024 09:25 AM [facility] CBC BLOOD Specimen Type: BLOOD No comment entered. Ordering Provider: ALFREDO SANDERS Report Released Date/Time: Apr 19, 2024 10:52 AM Reporting Lab: [facility] [address] [facility] [address] Performing Lab: [address] [address] WBC 7.98 10*3/uL 4.50-11.00 RBC 4.46 10*6/uL 4.23-5.66 HGB 13.1 g/dL 12.8-17 HCT 37.7 L 39.2-50.4 MCV 84.5 fL 82-99 MCHC 34.7 g/dL 30.8-35.1 PLT 280 10*3/uL 140-360 RDW-CV 13.9 12.0-16.0 MCH 29.4 pg 26.2-32.6 Sep 20, 2024 09:25 AM [facility] IRON & TIBC PANEL SERUM Specimen Type: SERUM No comment entered. Ordering Provider: ALFREDO SANDERS Report Released Date/Time: Apr 19, 2024 10:52 AM Reporting Lab: [facility] [address] [facility] [address] Performing Lab: [address] [address] TIBC 352 ug/dL 204-475 IRON 60 ug/dL 40-160 Transferrin Saturation 17.0 L 20.0-50.0 Transferrin (TRF) 267 mg/dL 200-360 Sep 20, 2024 09:25 AM [facility] BASIC METABOLIC PANEL (non-fasting) SERUM Spe cimen Type: SERUM No comment entered. Ordering Provider: ALFREDO SANDERS Report Released Date/Time: Apr 19, 2024 10:52 AM Reporting Lab: [facility] [address] [facility] [address] Performing Lab: [facility] [address] [facility] [address] UREA NITROGEN 7 mg/dL 7-25 GLUCOSE 115 mg/dL H 65-100 SODIUM 140 mmol/L 135-145 POTASSIUM 4.1 mmol/L 3.5-5.0 CHLORIDE 107 mmol/L 100-110 CO2 22 meq/L 20-30 CREATININE, Serum 1.07 mg/dL 0.50-1.40 eGFR(CKD-EPI 2020) 78 mL/min >60 Sep 19, 2024 08:34 AM [facility] HEMOGLOBIN A1C PANEL BLOOD Specimen Type: BLO [...] Jul 29, 2024 03:01 PM Reporting Lab: [facility] [address] [facility] [address] Performing Lab: [facility] [address] [facility] [address] HEMOGLOBIN A1C 5.7 H 4.0-5.6 Sep 19, 2024 08:34 AM [facility] CREATININE (eGFR 2020) SERUM Specimen Type: S CRYSTAL No comment entered. Ordering Provider: SWAPNIL SCHOFIELD Report Released Date/Time: Jul 29, 2024 03:01 PM Reporting Lab: [facility] [address] [facility] [address] Performing Lab: [facility] [address] [facility] [address] CREATININE, Serum 1.12 mg/dL 0.50-1.40 eGFR(CKD-EPI 2020) 74 mL/min >60 Vital Signs: All taken on the encounter date This section contains inpatient and outpatient Vital Signs collected on the date of the Encounter. Date/Time Temperature Pulse Blood Pressure Respiratory Rate SP02 Pain Height Weight Body Mass Index Source Oct 18, 2024 08:40 AM 97.3 78 120/71 18 96 0 231 35 [facility] Advance Directives: All historical and current Section Date Range: From patient's date of to the date document was created. This section includes ALL of a patient's completed or amended [place] Advance and Rescinded Directives. The entries below indicate that a directive exists for the patient, but an actual copy is not included with this document. The data comes from all [place] facilities. Date Advance Directives Provider Source Dec 12, 2014 ADVANCE DIRECTIVE KATRIN GREEN Encounter Notes: All associated encounter notes This section contains the clinical notes associated to the Encounter. Date/Time Encounter Note(s) Provider Source Oct 18, 2024 07:49 AM NEPHROLOGY E & M NOTE: LOCAL TITLE: NEPHROLOGY NOTE STANDARD TITLE: NEPHROLOGY E & M NOTE DATE OF NOTE: OCT 18, 2024@07:49 ENTRY DATE: OCT 18, 2024@07:50:10 AUTHOR: ALFREDO SANDERS COSIGNER: URGENCY: STATUS: COMPLETED Nephrology Note Follow-Up 10/18/24 08:30 Blood Pressure: 120/71 (10/18/2024 08:40) Pain: 0 (10/18/2024 08:40) Patient Height: 68 in [172.7 cm] (11/21/2023 09:25) Patient Weight: 231 lb [104.78 kg] (10/18/2024 08:40) Pulse: 78 (10/18/2024 08:40) Respiration: 18 (10/18/2024 08:40) Temperature: 97.3 F [36.3 C] (10/18/2024 08:40) Consultation Problem:Chronic Kidney Disease Stage 4 History:64 year old robe wit a hisory of hypertension, hypertriglyceridemia and hyperglycemia presenting for evaluation and management of his renal disease. The patient denies any new problems. He states he is gradually losing weight since started semaglutide(Ozemic). He has lost 20 pounds. He says he stopped smoking Jun 2024! Active and Recently Outpatient Medications (including Supplies): Active Outpatient Medications Status 1) ACCU-CHEK GUIDE (GLUCOSE) TEST STRIP USE 1 STRIP TO TEST ACTIVE BLOOD SUGARS DIRECTED 2) ALBUTEROL 90MCG (CFC-F) 200D ORAL INHL INHALE 1 PUFF BY ACTIVE MOUTH FOUR TIMES DAILY NEEDED Indication: FOR BRONCHOSPASM 3) AMLODIPINE BESYLATE 10MG TAB TAKE ONE TABLET BY MOUTH ONCE ACTIVE DAILY FOR BLOOD PRESSURE/HEART, DO NOT TAKE WITH GRAPEFRUIT JUICE Indication: FOR HIGH BLOOD PRESSURE 4) CHOLECALCIF 50MCG (D3-2,000UNIT) TAB TAKE ONE TABLET BY ACTIVE MOUTH ONCE DAILY Indication: FOR VITAMIN D DEFICIENCY 5) FENOFIBRATE 145MG TAB TAKE ONE TABLET BY MOUTH ONCE DAILY ACTIVE Indication: FOR HIGH CHOLESTEROL 6) OMEPRAZOLE 20MG EC CAP TAKE ONE CAPSULE BY MOUTH TWICE DAILY ACTIVE Indication: FOR EXCESSIVE PRODUCTION OF STOMACH ACID 7) SEMAGLUTIDE 1MG/0.75ML INJ PEN 3ML INJECT 1MG SUBCUTANEOUSLY ACTIVE ONCE A WEEK Indication: FOR TYPE 2 DIABETES MELLITUS 8) VARENICLINE 1MG TAB TAKE ONE TABLET BY MOUTH TWICE DAILY ACTIVE Indication: FOR SMOKING CESSATION Pending Outpatient Medications Status 1) FERROUS GLUCONATE 324MG TAB TAKE ONE TABLET BY MOUTH EVERY PENDING OTHER DAY Indication: TO SUPPLEMENT IRON Active Non-VA Medications Status 1) Non-VA ASPIRIN 81MG EC TAB 81MG BY MOUTH EVERY DAY ACTIVE 2) Non-VA CLONAZEPAM 1MG TAB 1MG BY MOUTH TWICE DAILY ACTIVE 3) Non-VA HYDROXYZINE HCL 25MG TAB 25MG BY MOUTH ONCE DAILY ACTIVE 4) Non-VA OLANZAPINE 5MG TAB 5MG BY MOUTH TWICE DAILY ACTIVE 5) Non-VA ONDANSETRON HCL 4MG TAB 4MG BY MOUTH DIRECVTED ACTIVE 6) Non-VA TRAZODONE HCL 100MG TAB 50MG BY MOUTH AT BEDTIME ACTIVE 7) Non-VA VENLAFAXINE HCL 150MG 24HR SA CAP 150MG BY MOUTH ONCE ACTIVE DAILY 16 Total Medications Allergies/Adverse Reactions: CODEINE, OXYCODONE Vitals:as above General: Short statured obese malealert,cooperative in NAD HEENT: Neck/Throat: supple; no JVD; Lungs:clear Heart:RRR; no murmur Abdomen:soft; +BS; no tenderness or organomegaly;no bruit' Ext:no edema; Vascular: lower leg DP artery 3/34+ bilaterally Assessment and Plans: Chronic Kidney Disease Below Areas to address in the evaluation and management of the patient's CKD and to reduce renal disease progression is as follows: #1. CKD stage 2: the patient is without uremic sx. Review of labs from Sep 20, 2024 showed normal bicarb(22), potassium(4.1). His urine microalb/cr ratio was 71 now 12.4. His creatinine was normal at 1.07 His GFR was 78. the patient's renal function is stable. #2. Hypertension: the patient's blood pressure was 120/71 p=78 today.His BP is monitored at home and was normal He will continue his Lisinopril and Amlodipine. No med changes. He has sleep apnea and does use his CPAP apparatus. He reports that after he was evaluated there was no f/u. Encouraged patient to discuss the results with him. #3 Hyperlipidemia: the patient's lipid studies from 01/26 were excellent. It showed a Chol of 166, HDL of 31 and a LDL of 64 with a triglyceride of 510. He will continue fenofibrate, fish oil and Ezel 3. He is also encouraged to adhere to a heart healthy low fat diet. #4. Nutritional state: The patient's weight was 238 lbs now 231 today with an albumin of 3.8.. He is encouraged to continue to exercise and adhere to a heart healthy diet.He says he is losing weight slowly since starting Ozemic. #5. CKD-MBD: the patient's calcium was 9, mag of 1.4, PO4 of 3, PTH of 23, alk Phos of 29 and his VitD was 18(now 43 04/27). He was started on VitD supplement 2 weeks ago to address his low VitD. Will recheck his mag and VitD on return. #6. Diabetes: the patient's hgbA1c was 5.10 Sep 2024. He is presently prescribed Semaglutide.He is encouraged to take his glucose lowering meds as described. He is encouraged to exercise. #7 anemia: the patient's H/H was 13/37, mcv 85 on 04/27. His TIBC was 352, iron 60, ferritin was 248 and TSAT was 22.3 now 17. Concerned that his TSAT and ferritin are low. Will start iron gluconate. Will recheck on return to see if this trend continues. This was a 20 minute visit > 50% of which was spent in counseling and coordination of care. All available test results were reviewed with the . Medication Reconciliation: Outpatient: Has the patient been taking medications as documented in the EMLR? YES: The patient has been taking medications as documented in the EMLR. Essential Medication List for Review used to complete this medication reconciliation. INCLUDED IN THIS LIST: Alphabetical list of active outpatient prescriptions dispensed from this [facility] (local) and dispensed from another VA or DoD facility (remote) as well as inpatient orders (local, pending and active), local clinic medications, locally documented non-VA medications, and local prescriptions that have or been discontinued in the past 90 days. - All changes in medications, including all non-VA/Herbal/OTC medications were entered into CPRS. - If there were any medications the patient should no longer take, they were discontinued. - The patient/caregiver was instructed to update this list, discard old lists, and take this list to the next appointment, whether with a VA or non-VA provider. /karlene/ ALFREDO SANDERS M.D. INTERNET RESEARCHER DETECTOR CAR OPERATOR Signed: 10/18/2024 09:09 ALFREDO SANDERS [facility]
--- OUTSIDE RECORDS SUMMARY | 2024-11-15 04:30 | XMS_ITS | Encounter Summary ---
Author Name [facility] [place] Address [address] [place] [address] Care Team Providers Care Rnp Name Role Phone AUSTIN BALDWIN Primary Care Provider [facility] Insurance Providers: All historical and [...] Relationship to Policy Lomas PATRICIO MULLIGAN-WN R [place] SPECIAL CLASS PATRICIO ERICKSON Nov 14, 2024 PATRICIO MULLIGAN [id number] Dougie RIVERA PATIENT [facility] MEDICAID MEDICAID MEDIC AID Oct 05, 2016 MEDICAI D [id number] NICOLE,A NALLELY PATIENT MEDICAID MEDICAID [facility] STAND BEATRICE Oct 05, 2014 MEDICAI D [id number] Dougie RIVERA NALLELY PATIENT MEDICARE (WNR) MEDICARE (M) PART A May 05, 2018 PART A [id number] [facility] Dougie RIVERA NALLELY PATIENT MEDICARE (WNR) MEDICARE (M) PART B May 05, 2018 PART B [id number] [facility] Dougie RIVERA PATIENT Selected Encounter This section includes the information on record at [place] for the Encounter. Date/Time Encounter Type Encounter Description Reason Provider Source Nov 15, 2024 08:30 AM OFFICE O/P EST MOD 30 MIN PRIMARY CARE/MEDICINE ICD-10-CM E11.9 Type 2 diabetes mellitus without complications AUSTIN BALDWIN Encounter Template Text not used by AR Assessments - Encounter Diagnoses This section includes the primary and secondary diagnoses documented for the Encounter. Date/Time Primary/Secondary Diagnosis Diagnosis Name Provider Source Nov 15, 2024 09:03 AM PRIMARY Type 2 diabetes mellitus without complications AUSTIN BALDWIN Nov 15, 2024 09:03 AM SECONDARY Essential (primary) hypertension AUSTIN BALDWIN Nov 15, 2024 09:03 AM SECONDARY Hyperglycemia, unspecified AUSTIN BALDWIN Plan of Treatment: Future Appointments (+ 6 months) and Future Tests (+/- 45 days) The Plan of Treatment section includes future care activities for the patient from all [place] treatmentfacilities. This section includes future appointments and future orders which are active, pending or scheduled. Future Appointments This section includes appointments that were scheduled to occur 6 months from the date of the Encounter, up to a maximum of 20 appointments. The data comes from all AR treatment facilities. Appointment Date/Time Appointment Type Appointme nt Facility Name Dec 05, 2024 02:15 PM AMBULATORY - MEDICINE [facility] Dec 08, 2024 09:00 AM AMBULATORY - MEDICINE [facility] [place] [facility] Dec 19, 2024 09:30 AM [facility]ORY - MEDICINE [facility] Dec 19, 2024 10:00 AM AM[facility]ULATORY - MEDICINE [facility] Dec 28, 2024 03:00 PM AMBULATORY - MEDICINE [facility] [place] [facility] Jan 09, 2025 01:30 PM AMBULATORY - MEDICINE [facility] [place] [facility] Jan 12, 2025 09:00 AM AM[facility]ULATORY - MEDICINE [facility] Jan 26, 2025 09:30 AM AMBULATORY - MEDICINE [facility] [place] [facility] February 06, 2025 09:00 AM [facility] 08, 2025 01:00 PM [facility]ULAT[facility] - MEDICINE [facility] [place] [facility] February 13, 2025 01:00 PM AMBULATORY - MEDICINE [facility] March 01, 2025 12:30 PM [facility] [place] [facility]INE [facility] [place] Mar 07, 2025 09:00 AM AMBULATORY - MEDICINE [facility] [place] [facility] Mar 09, 2025 08:30 AM AMBULATORY - MEDICINE [facility] [place] [facility] Mar 14, 2025 09:00 AM AMBULATORY - MEDICINE [facility] [place] [facility] Mar 14, 2025 10:00 AM AMBULATORY - MEDICINE [facility] [place] [facility] Mar 14, 2025 10:15 AM AMBULATORY - MEDICINE [facility] [place] [facility] Mar 27, 2025 09:15 AM AMBULATORY - NONE [facility] [place] [facility] Mar 31, 2025 01:00 PM AMBULATORY - MEDICINE [facility] [place] [facility] Apr 13, 2025 09:00 AM AMBULATORY - NONE [facility] Lab Results: +/- 30 days of the encounter This section includes the Chemistry and Hematology Lab Results on record with AR for the patient. Radiology Reports and Pathology Reports are provided separately, in subsequent sections. Lab Results This section contains the Chemistry/Hematology Results that were resulted 30 days before or 30 daysafter the date of the Encounter. Date/Time Source Result Type Result - Unit Interpretation Reference Range Specimen Type Comment Dec 15, 2024 09:34 AM [place] CREATININE (eGFR 2020) SERUM Specimen Type: SERUM No comment entered. Ordering Provider: SWAPNIL SCHOFIELD Report Released Date/Time: Dec 14, 2024 02:29 PM Reporting [facility]: [facility] [address] [address] Performing Lab: [facility] [address] [address] CREATININE, Serum 1.27 mg/dL 0.50-1.40 eGFR(CKD-EPI 2020) 63 mL/min >60 Dec 15, 2024 09:34 AM [place] HEMOGLOBIN A1C PANEL BLOOD Specimen T ype: BLOOD Comment: Values obtained from A1C measurements can vary. For atypical A1C assays, a reported value of 7.0 could actually be between 6.72 and 7.28 if measured by a reference method. A reported value of 9.0 could actually be between 8.73 and 9.27. Ref: http://www.ngsp.org/CAPdata.asp Ordering Provider: SWAPNIL SCHOFIELD Report Released Date/Time: Dec 14, 2024 02:29 PM Reporting Lab: [facility] [address] [address] Performing Lab: [facility] [address] [facility] [address] HEMOGLOBIN A1C 5.8 H 4.0-5.6 Vital Signs: All taken on the encounter date This section contains inpatient and outpatient Vital Signs collected on the date of the Encounter. Date/Time Temperature Pulse Blood Pressure Respiratory Rate SP02 Pain Height Weight Body Mass Index Source Nov 15, 2024 08:38 AM 97 76 109/74 18 98 228 35 [facility] IE Social History: Smoking Status (Most current) and Tobacco Use (All prior to encounter date) This section includes the most current, and the historical, smoking and tobacco- related health factors from the [place] facility where the Encounter took place. Current Smoking Status This section includes the most current smoking, or tobacco-related health factor, from the [place] facility where the Encounter took place. Date/Time Current Smoking Status Comment Facil [facility] Dec 16, 2023 10:00 AM VA-TOBACCO USER EVERY DAY [place] Tobacco Use History This section includes a history of the smoking, or tobacco-related health factors, that were collected on or before the date of the Encounter. The data comes from the [place] facility where the Encounter took place. Date/Time Smoking Status/Tobacco Use Comment F acility Dec 16, 2023 10:00 AM VA-TOBACCO USE > 1 5 LESS THAN 30 YEARS [place] Dec 16, 2023 10:00 AM VA-TOBACCO USE 30 YEARS OR MORE [place] Dec 16, 2023 10:00 AM VA-TOBACCO USE ADVICE [place] Dec 16, 2023 10:00 AM VA-TOBACCO USE SCLEROSCOPE TESTER NO [place] Dec 16, 2023 10:00 AM VA-TOBACCO USE SCLEROSCOPE TESTER YES [place] Dec 16, 2023 10:00 AM VA-TOBACCO USE MED NO [place] Dec 16, 2023 10:00 AM VA-TOBACCO USE MED YES [place] Dec 16, 2023 10:00 AM VA-TOBACCO USE WI 30 MIN OF WAKEUP [place] Dec 16, 2023 10:00 AM VA-TOBACCO USER EVERY DAY [place] Jan 13, 2023 02:00 PM VA-TOBACCO USE 1 T O < 5 YEARS [place] Jan 13, 2023 02:00 PM VA-TOBACCO USE ADVICE [place] Jan 13, 2023 02:00 PM VA-TOBACCO USE SCLEROSCOPE TESTER NO [place] Jan 13, 2023 02:00 PM VA-TOBACCO USE MED NO [place] Jan 13, 2023 02:00 PM VA-TOBACCO USE WI 30 MIN OF WAKEUP [place] Jan 13, 2023 02:00 PM VA-TOBACCO USER EVERY DAY [place] Jul 03, 2022 09:00 AM VA-TOBACCO FORMER USER [place] Jul 03, 2022 09:00 AM VA-TOBACCO QUIT 5 TO < 15 YRS [place] Jul 04, 2021 09:00 AM VA-TOBACCO USE > 1 5 LESS THAN 30 YEARS [place] Jul 04, 2021 09:00 AM VA-TOBACCO USE ADVICE [place] Jul 04, 2021 09:00 AM VA-TOBACCO USE SCLEROSCOPE TESTER NO [place] Jul 04, 2021 09:00 AM VA-TOBACCO USE MED [facility] Jul 04, 2021 09:00 AM VA-TOBACCO USE WI 30 MIN OF WAKEUP [place] Jul 04, 2021 09:00 AM VA-TOBACCO USER SOME DAYS [place] Apr 30, 2020 10:39 AM VA-TOBACCO FORMER USER [place] Apr 30, 2020 10:39 AM VA-TOBACCO QUIT 5 TO < 15 YRS [place] Dec 21, 2018 03:15 PM VA-TOBACCO FORMER USER [place] Dec 21, 2018 03:15 PM VA-TOBACCO QUIT 1 TO < 5 YRS [place] Nov 24, 2017 09:54 AM CURRENT SMOKER cigarets [place] Nov 24, 2017 09:54 AM V1-PT READY TO SHARAN T TOBACCO USE [place] Mar 25, 2017 01:57 PM CURRENT SMOKER down to 10 cigarettes daily [place] Mar 25, 2017 01:57 PM V1-PT DECLINES TOB ACCO CESSATION MEDS [place] Mar 25, 2017 01:57 PM V1-PT READY TO SHARAN T TOBACCO USE [place] March 04, 2017 02:38 PM CURRENT SMOKER advise stopm [place] Jul 22, 2016 09:29 AM V1-PT NOT INTEREST ED IN QUIT TOBACCO USE [place] Nov 21, 2015 09:21 AM CURRENT SMOKER half a pack a day [place] Nov 21, 2015 09:21 AM V1-PT NOT INTEREST ED IN QUIT TOBACCO USE [place] Nov 23, 2014 08:51 AM CURRENT SMOKER [facility] Nov 23, 2014 08:51 AM V1-PT READY TO SHARAN T TOBACCO USE [place] Dec 16, 2013 02:19 PM CURRENT SMOKER 3/4 pack a day [place] Dec 16, 2013 02:19 PM V1-PT THINKING ABO UT QUIT TOBACCO USE [place] Advance Directives: All historical and current Section Date Range: From patient's date of to the date document was created. This section includes ALL of a patient's completed or amended [place] Advance and Rescinded Directives. The entries below indicate that a directive exists for the patient, but an actual copy is not included with this document. The data comes from all [place] facilities. Date Advance Directives Provider Source Dec 12, 2014 ADVANCE DIRECTIVE KATRIN GREEN TAYLOR Conner Encounter Notes: All associated encounter notes This section contains the clinical notes associated to the Encounter. Date/Time Encounter Note(s) Provider Source Nov 15, 2024 08:39 AM PREVENTIVE MEDICIN E NURSING NOTE: LOCAL TITLE: CLINICAL REMINDERS/NURSING STANDARD TITLE: PREVENTIVE MEDICINE NURSING NOTE DATE OF NOTE: NOV 15, 2024@08:39 ENTRY DATE: NOV 15, 2024@08:39:52 AUTHOR: JUNE SANFORD COSIGNER: URGENCY: STATUS: COMPLETED Suicide Screen: C-SSRS Screening Patient declines to be screened HIV Screening: Patient has been offered HIV testing and has declined. I have explained that HIV testing is recommended for all adults, even if all risk factors are absent. The patient was educated on the risk of delayed screening. Home Telehealth (CCHT) Referral: Patient declines participation in CCHT Program at this time. Td / Tdap Immunization: Prior Td vaccination The patient may have been vaccinated in the past but written documentation of vaccination is not available today. Patient instructed to obtain a written record of the prior vaccine and bring it to the next appointment. RHS Screen: RHS Screen Environmental Check Upon inquiry, the individual reports that the environment is safe to proceed. Informed Consent to Screen and Document The individual consents to proceed with screening. The individual consents to documentation of responses. PRIMARY SCREEN: In the past 12 months, how often did a current or former intimate partner (e.g., boyfriend, girlfriend, , , sexual partner): 1. Scream or curse at you Never 2. Insult or talk down to you Never 3. Threaten you with harm Never 4. Physically hurt you Never 5. Force or pressure you to have sexual contact against your will, or when you were unable to say no Never The HITS tool (items 1-4 above) is [place] copyright protected by Wang Benitez MD, and the user has full rights to use it throughout the [place] system. PRIMARY SCREEN RESULT: The Primary Screen is NEGATIVE. The individual answered never to all forms of IPV above (i.e., answered never to all 5 items) The individual accepts education and/or resources: No EDUCATION: Other: Comments: /karlene/ JUNE SANFORD LPN LICENSED PRACTICAL NURSE Signed: 11/15/2024 08:42 JUNE SANFORD [place] Nov 15, 2024 08:29 AM PHYSICIAN KENISHA Carter NOTE: LOCAL TITLE: EDWIGE NOTE STANDARD TITLE: PHYSICIAN WORKFORCE MANAGER NOTE DATE OF NOTE: NOV 15, 2024@08:29 ENTRY DATE: NOV 15, 2024@08:29:15 AUTHOR: AUSTIN BALDWIN COSIGNER: URGENCY: STATUS: COMPLETED S - says this is his annual comes here very often sciatica and neck pain; pains are fleeting O - coop A&Ox3 NAD W-N/H/D HEENT: benign NECK: no bruits not tener and no adeno LUNGS: resp full reg unlabored; CTA b/l COR: RRR, no M ABD: soft, not tender no mas, megaly EXT: no LLE LABS: reviewed w/ pt A/P - 1) Sciatica 2) Cerv Radiculopathy - will do Home Exercise Program on Own - has a TENS Unit 3) Lipidemia - Better; LDL 73 and TG 248 in SEP 27 - takees Fish Oil; Stop Fenofibrate on His Own 4) Stage 3 CKD (on occasion); eGFR 74 in SEP 27 5) HTN - BP 110/74 - on Norvasc 6) DM II - A1C 5.7 in SEP 27 - on Ozempic - foot eye care - diet, wt 7) Health Maintenance - says he stopped smoking and drinking in JUN 28 RTC JUN 29 - labs before Medication Reconciliation: Outpatient: Has the patient been [...] all non-VA/Herbal/OTC medications were entered into CPRS. Changes: nt - If there were any medications the patient should no longer take, they were discontinued. - The patient/caregiver was instructed to update this list, discard old lists, and take this list to the next appointment, whether with a VA or non-VA provider. Alcohol Use Screen (AUDIT-C): Alcohol Screen: SCREEN FOR ALCOHOL (AUDIT-C) An alcohol screening test (AUDIT-C) was negative (score=0). 1. How often did you have a drink containing alcohol in the past year? Consider a drink to be a 12 ounce can or bottle of regular beer, 8 ounces of malt liquor, a 5 ounce glass of table wine, or a 1.5 ounce shot of liquor (like scotch, gin, or vodka). Never 2. How many drinks containing alcohol did you have on a typical day when you were drinking in the past year? Response not required due to responses to other questions. 3. How often did you have six or more drinks on one occasion in the past year? Response not required due to responses to other questions. /karlene/ AUSTIN BALDWIN PA-C STAFF PHYSICIAN WORKFORCE MANAGER Signed: 11/15/2024 09:03 AUSTIN BALDWIN
--- OUTSIDE RECORDS SUMMARY | 2024-12-19 05:30 | XMS_ITS | Encounter Summary ---
Author Name [facility] [place] [facility] [place] Address [address] [place] [address] Care Team Providers Care Washer Engineer Helper Name Role Phone AUSTIN BALDWIN Primary Care [...] Relationship to Policy Lomas PATRICIO MULLIGAN-WN R [place] [facility] [place] PATRICIO ERICKSON Nov 14, 2024 PATRICIO MULLIGAN [id number] Dougie RIVERA PATIENT [facility] MEDICAID MEDICAID MEDIC AID Oct 05, 2016 MEDICAI D [id number] NICOLE,A NALLELY PATIENT MEDICAID MEDICAID [facility] Oct 05, 2014 MEDICAI D [id number] Dougie RIVERA NALLELY PATIENT MEDICARE (WNR) MEDICARE (M) PART A May 05, 2018 PART A [id number] [facility] [phone] [id number] Dougie RIVERA NALLELY PATIENT MEDICARE (WNR) MEDICARE (M) PART B May 05, 2018 PART B [id number] [facility] Dougie RIVERA PATIENT Selected Encounter This section includes the information on record at [place] for the Encounter. Date/Time Encounter Type Encounter Description Reason Provider Source Dec 19, 2024 09:30 AM OFFICE O/P EST LOW 20 MIN PRIMARY CARE/MEDICINE ICD-10-CM R11.0 Nausea AUSTIN BALDWIN NELSON Encounter Template Text not used by [place] Assessments - Encounter Diagnoses This section includes the primary and secondary diagnoses documented for the Encounter. Date/Time Primary/Secondary Diagnosis Diagnosis Name Prov ider Source Dec 19, 2024 10:01 AM PRIMARY Nausea BALDWINAUSTIN TABOR Plan of Treatment: Future Appointments (+ 6 months) and Future Tests (+/- 45 days) The Plan of Treatment section includes future care activities for the patient [facility] This section includes future appointments and future orders which are active, pending or scheduled. Future Appointments This section includes appointments that were scheduled to occur 6 months from the date of the Encounter, up to a maximum of 20 appointments. The data comes from all [place] treatment facilities. Appointment Date/Time Appointment Type Appointme nt Facility Name Dec 28, 2024 03:00 PM [facility]ULATORY [facility] [place] [facility] Jan 09, 2025 01:30 PM [facility]ORY [facility]ICINE [facility] [place] [facility] Jan 12, 2025 09:00 AM [facility] Jan 26, 2025 09:30 AM [facility] [place] [facility]INE [facility] [place] [facility] February 06, 2025 09:00 AM [facility] February 08, 2025 01:00 PM [facility]ORY [place] [facility]INE [facility] [place] [facility] February 13, 2025 01:00 PM [facility]INE [facility] March 01, 2025 12:30 PM [facility]ORY - MEDICINE [facility] Mar 07, 2025 09:00 AM AM[facility]ORY [facility]ICINE [facility] [place] [facility] Mar 09, 2025 08:30 AM [facility]ORY [facility]INE [facility] [place] [facility] Mar 14, 2025 09:00 AM AMBULATORY - MEDICINE [facility] [place] [facility] Mar 14, 2025 10:00 AM AMBULATORY - MEDICINE [facility] [place] [facility] Mar 14, 2025 10:15 AM AM[facility]ULATORY [facility]ICINE [facility] [place] [facility] Mar 27, 2025 09:15 AM AMBULATORY - NONE [facility] [place] [facility] Mar 31, 2025 01:00 PM AMBULATORY - MEDICINE [facility] [place] [facility] Apr 13, 2025 09:00 AM AM[facility]ULATORY - NONE [facility] Apr 20, 2025 09:00 AM AMBULATORY - NONE [facility] Apr 21, 2025 09:00 AM [facility] - [facility]ICINE [facility] Apr 21, 2025 09:15 AM AM[facility]ULATORY [facility]ICINE [facility] [place] [facility] Apr 24, 2025 01:00 PM [facility] Lab Results: +/- 30 days of the encounter This section includes the Chemistry and Hematology Lab Results on record with [place] for the patient. Radiology Reports and Pathology Reports are provided separately, in subsequent sections. Lab Results This section contains the Chemistry/Hematology Results that were resulted 30 days before or 30 daysafter the date of the Encounter. Date/Time Source Result Type Result - Unit Interpretation Reference Range Specimen Type Comment Dec 19, 2024 10:15 AM [facility] GLUCOSE, Fingerstick BLOOD Specimen T ype: BLOOD Comment: For GLU FinTest performed by: Christy Robbins For GLU Fin Meter #: [id number] Ordering Provider: SWAPNIL SCHOFIELD Report Released Date/Time: Dec 19, 2024 04:05 PM Reporting Lab: [address] [address] Performing Lab: [address] [address] GLUCOSE, Fingerstick 133 mg/dL H 65-100 Dec 15, 2024 09:34 AM [facility] CREATININE (eGFR 2020) SERUM Specimen Type: SERUM No comment entered. Ordering Provider: SWAPNIL SCHOFIELD Report Released Date/Time: Dec 14, 2024 02:29 PM Reporting [facility] [address] [address] Performing Lab: [facility] [address] [address] CREATININE, Serum 1.27 mg/dL 0.50-1.40 eGFR(CKD-EPI 2020) 63 mL/min >60 Dec 15, 2024 09:34 AM [facility] HEMOGLOBIN A1C PANEL BLOOD Specimen T ype: [...] Dec 14, 2024 02:29 PM Reporting Lab: [facility] [address] [facility] [address] Performing Lab: [facility] [address] [facility] [address] HEMOGLOBIN A1C 5.8 H 4.0-5.6 Social History: Smoking Status (Most current) and Tobacco Use (All prior to encounter date) This section includes the most current, and the historical, smoking and tobacco- related health factors from the [place] facility where the Encounter took place. Current Smoking Status This section includes the most current smoking, or tobacco-related health factor, from the [place] facility where the Encounter took place. Date/Time Current Smoking Status Comment [facility] Dec 16, 2023 10:00 AM VA-TOBACCO USER EVERY DAY [facility] Tobacco Use History This section includes a history of the smoking, or tobacco-related health factors, that were collected on or before the date of the Encounter. The data comes from the [place] facility where the Encounter took place. Date/Time Smoking Status/Tobacco Use Comment F acility Dec 16, 2023 10:00 AM VA-TOBACCO USE > 1 5 LESS THAN 30 YEARS [facility] Dec 16, 2023 10:00 AM VA-TOBACCO USE 30 YEARS OR MORE [facility] Dec 16, 2023 10:00 AM VA-TOBACCO USE ADVICE [facility] Dec 16, 2023 10:00 AM VA-TOBACCO USE INDUSTRIAL STAFF NURSE NO [facility] Dec 16, 2023 10:00 AM VA-TOBACCO USE INDUSTRIAL STAFF NURSE YES [facility] Dec 16, 2023 10:00 AM VA-TOBACCO USE MED NO [facility] Dec 16, 2023 10:00 AM VA-TOBACCO USE MED YES [facility] Dec 16, 2023 10:00 AM VA-TOBACCO USE WI 30 MIN OF WAKEUP [facility] Dec 16, 2023 10:00 AM VA-TOBACCO USER EVERY DAY [facility] Jan 13, 2023 02:00 PM VA-TOBACCO USE 1 T O < 5 YEARS [facility] Jan 13, 2023 02:00 PM VA-TOBACCO USE ADVICE [facility] Jan 13, 2023 02:00 PM VA-TOBACCO USE INDUSTRIAL STAFF NURSE NO [facility] Jan 13, 2023 02:00 PM VA-TOBACCO USE MED NO [facility] Jan 13, 2023 02:00 PM VA-TOBACCO USE WI 30 MIN OF WAKEUP [facility] Jan 13, 2023 02:00 PM VA-TOBACCO USER EVERY DAY [facility] Jul 03, 2022 09:00 AM VA-TOBACCO FORMER USER [facility] Jul 03, 2022 09:00 AM VA-TOBACCO QUIT 5 TO < 15 YRS [facility] Jul 04, 2021 09:00 AM VA-TOBACCO USE > 1 5 LESS THAN 30 YEARS [facility] Jul 04, 2021 09:00 AM VA-TOBACCO USE ADVICE [facility] Jul 04, 2021 09:00 AM VA-TOBACCO USE INDUSTRIAL STAFF NURSE NO [facility] Jul 04, 2021 09:00 AM VA-TOBACCO USE MED NO [facility] Jul 04, 2021 09:00 AM VA-TOBACCO USE WI 30 MIN OF WAKEUP [facility] Jul 04, 2021 09:00 AM VA-TOBACCO USER SOME DAYS [facility] Apr 30, 2020 10:39 AM VA-TOBACCO FORMER USER [facility] Apr 30, 2020 10:39 AM VA-TOBACCO QUIT 5 TO < 15 YRS [facility] Dec 21, 2018 03:15 PM VA-TOBACCO FORMER USER [facility] Dec 21, 2018 03:15 PM VA-TOBACCO QUIT 1 TO < 5 YRS [facility] Nov 24, 2017 09:54 AM CURRENT SMOKER cigarets [facility] Nov 24, 2017 09:54 AM V1-PT READY TO SHARAN T TOBACCO USE [facility] Mar 25, 2017 01:57 PM CURRENT SMOKER down to 10 cigarettes daily [facility] Mar 25, 2017 01:57 PM V1-PT DECLINES TOB ACCO CESSATION MEDS [facility] Mar 25, 2017 01:57 PM V1-PT READY TO SHARAN T TOBACCO USE [facility] March 04, 2017 02:38 PM CURRENT SMOKER advise stopm [facility] Jul 22, 2016 09:29 AM V1-PT NOT INTEREST ED IN QUIT TOBACCO USE [facility] Nov 21, 2015 09:21 AM CURRENT SMOKER half a pack a day [facility] Nov 21, 2015 09:21 AM V1-PT NOT INTEREST ED IN QUIT TOBACCO USE [facility] Nov 23, 2014 08:51 AM CURRENT SMOKER [facility] Nov 23, 2014 08:51 AM V1-PT READY TO SHARAN T TOBACCO USE [facility] Dec 16, 2013 02:19 PM CURRENT SMOKER 3/4 pack a day [facility] Dec 16, 2013 02:19 PM V1-PT THINKING ABO UT QUIT TOBACCO USE [facility] Advance Directives: All historical and current Section Date Range: From patient's date of to the date document was created. This section includes ALL of a patient's completed or amended [place] Advance and Rescinded Directives. The entries below indicate that a directive exists for the patient, but an actual copy is not included with this document. The data comes from all [place] facilities. Date Advance Directives Provider Source Dec 12, 2014 ADVANCE DIRECTIVE KATRIN GREEN Encounter Notes: All associated encounter notes This section contains the clinical notes associated to the Encounter. Date/Time Encounter Note(s) Provider Source Dec 19, 2024 09:44 AM PHYSICIAN ASSISTJACQUELYN Carter NOTE: LOCAL TITLE: PA NOTE STANDARD TITLE: PHYSICIAN PARK INTERPRETIVE SPECIALIST NOTE DATE OF NOTE: DEC 19, 2024@09:44 ENTRY DATE: DEC 19, 2024@09:44:18 AUTHOR: AUSTIN BALDWIN EXP COSIGNER: URGENCY: STATUS: COMPLETED S - c/o s/o emesis ne fever no zee no nuch rigid no ch pn no sob not acute abd O - he is distraught VS: Tachy (understandable) HEENT: benign no photophobia NECK: supple mobile LUNGS: resp full reg unlabored; CTA b/l COR: RRR, no M ABD: soft, not tender no peritoneal signs A/P - 1) No Meningimus 2) Not Acute Cardio-Pulmo Process 3) Hemo-Dynamically Stable 3) Not Acute ABD - Needs IV Replenishment 4) Not a Diabet Emergency RTC prn Medication Reconciliation: Outpatient: Has the patient been taking medications as documented in the EMLR? YES: The patient has been taking medications as documented in the EMLR. Essential Medication List for Review used to complete this medication reconciliation. INCLUDED IN THIS LIST: Alphabetical list of active outpatient prescriptions dispensed from this [place] (local) and dispensed from another [place] or [place] facility (remote) as well as [...] with a VA or non-VA provider. /karlene/ AUSTIN BALDWIN PA-C STAFF PHYSICIAN PARK INTERPRETIVE SPECIALIST Signed: 12/19/2024 10:02 AUSTIN BALDWIN
--- OUTSIDE RECORDS SUMMARY | 2024-12-19 05:30 | XMS_ITS | Encounter Summary ---
Author Name [place] Organization [facility] of [facility] [place] Address [address] [place] [address] Care Team Providers Care Scientific Programmer Analyst Name Role Phone AUSTIN BALDWIN Primary Care [...] Relationship to Policy Lomas PATRICIO MULLIGAN-ESME R [place] [facility] PATRICIO ERICKSON Nov 14, 2024 PATRICIO MULLIGAN [id number] Dougie RIVERA PATIENT [facility] MEDICAID MEDICAID MEDIC AID Oct 05, 2016 MEDICAI D [id number] NICOLE,Dougie NALLELY PATIENT MEDICAID MEDICAID [facility] STAND BEATRICE Oct 05, 2014 MEDICAI D [id number] Dougie RIVERA NALLELY PATIENT MEDICARE (WNR) MEDICARE (M) PART A May 05, 2018 PART A [id number] [phone] [id number] Dougie RIVERA NALLELY PATIENT MEDICARE (WNR) MEDICARE (M) PART B May 05, 2018 PART B [id number] Dougie RIVERA PATIENT Selected Encounter This section includes the information on record at [place] for the Encounter. Date/Time Encounter Type Encounter Description Reason Pro vider Source Dec 19, 2024 09:30 AM Outpatient Encounter [facility] Encounter Template Text not used by [place] Plan of Treatment: Future Appointments (+ 6 months) and Future Tests (+/- 45 days) The Plan of Treatment section includes future care activities for the patient from all [place] treatmentfacilities. This section includes future appointments and future orders which are active, pending or scheduled. Future Appointments This section includes appointments that were scheduled to occur 6 months from the date of the Encounter, up to a maximum of 20 appointments. The data comes from all [place] treatment facilities. Appointment Date/Time Appointment Type Appointme nt Facility Name Dec 28, 2024 03:00 PM AMBULATORY - MEDICINE [facility] [place] [facility] Jan 09, 2025 01:30 PM AMBULATORY - MEDICINE [facility] [place] [facility] Jan 12, 2025 09:00 AM [facility]ORY - MEDICINE [facility] Jan 26, 2025 09:30 AM AMBULATORY - MEDICINE [facility] [place] [facility] February 06, 2025 09:00 AM [facility]ULATORY - MEDICINE [facility] February 08, 2025 01:00 PM AMBULATORY - MEDICINE [facility] [place] [facility] February 13, 2025 01:00 PM [facility]ATORY - MEDICINE [facility] March 01, 2025 12:30 PM AM[facility]ATORY - MEDICINE [facility] Mar 07, 2025 09:00 AM AMBULATORY - MEDICINE [facility] [place] [facility] Mar 09, 2025 08:30 AM AMBULATORY - MEDICINE [facility] [place] [facility] Mar 14, 2025 09:00 AM AMBULATORY - MEDICINE [facility] [place] [facility] Mar 14, 2025 10:00 AM AMBULATORY - MEDICINE [facility] [place] [facility] Mar 14, 2025 10:15 AM AMBULATORY - MEDICINE [facility] [place] [facility] Mar 27, 2025 09:15 AM AMBULATORY - NONE [facility] [place] [facility] Mar 31, 2025 01:00 PM AMBULATORY - MEDICINE [facility] [place] [facility] Apr 13, 2025 09:00 AM AMBULATORY - NONE [facility] Apr 20, 2025 09:00 AM AMBULATORY - NONE [facility] Apr 21, 2025 09:00 AM AMBULATORY - MEDICINE [facility] Apr 21, 2025 09:15 AM [facility] Apr 24, 2025 01:00 PM AMBULATORY - MEDICINE [facility] Lab Results: +/- 30 days of the encounter This section includes the Chemistry and Hematology Lab Results on record with [place] for the patient. Radiology Reports and Pathology Reports are provided separately, in subsequent sections. Lab Results This section contains the Chemistry/Hematology Results that were resulted 30 days before or 30 daysafter the date of the Encounter. Date/Time Source Result Type Result - Unit Interpretation Reference Range Specimen Type Comment Dec 19, 2024 10:15 AM [facility] GLUCOSE, Fingerstick BLOOD Specimen T ype: BLOOD Comment: For GLU FinTest performed by: Christy Robbins For GLU Fin Meter #: [id number] Ordering Provider: SWAPNIL SCHOFIELD Report Released Date/Time: Dec 19, 2024 04:05 PM Reporting Lab: [address] [address] Performing Lab: [address] [address] GLUCOSE, Fingerstick 133 mg/dL H 65-100 Dec 15, 2024 09:34 AM [facility] CREATININE (eGFR 2020) SERUM Specimen Type: SERUM No comment entered. Ordering Provider: SWAPNIL SCHOFIELD Report Released Date/Time: Dec 14, 2024 02:29 PM Reporting Lab: [address] [address] Performing Lab: [address] [address] CREATININE, Serum 1.27 mg/dL 0.50-1.40 eGFR(CKD-EPI 2020) 63 mL/min >60 Dec 15, 2024 09:34 AM [facility] HEMOGLOBIN A1C PANEL BLOOD Specimen T ype: [...] Dec 14, 2024 02:29 PM Reporting Lab: [facility] [address] [facility] [address] Performing Lab: [facility] [address] [facility] [address] HEMOGLOBIN A1C 5.8 H 4.0-5.6 Social History: Smoking Status (Most current) and Tobacco Use (All prior to encounter date) This section includes the most current, and the historical, smoking and tobacco- related health factors from the [place] facility where the Encounter took place. Current Smoking Status This section includes the most current smoking, or tobacco-related health factor, from the [place] facility where the Encounter took place. Date/Time Current Smoking Status Comment Facil [email or web address] Dec 16, 2023 10:00 AM VA-TOBACCO USER EVERY DAY [facility] Tobacco Use History This section includes a history of the smoking, or tobacco-related health factors, that were collected on or before the date of the Encounter. The data comes from the [place] facility where the Encounter took place. Date/Time Smoking Status/Tobacco Use Comment F acility Dec 16, 2023 10:00 AM VA-TOBACCO USE > 1 5 LESS THAN 30 YEARS [facility] Dec 16, 2023 10:00 AM VA-TOBACCO USE 30 YEARS OR MORE [facility] Dec 16, 2023 10:00 AM VA-TOBACCO USE ADVICE [facility] Dec 16, 2023 10:00 AM VA-TOBACCO USE POWER WOOD SAWYER NO [facility] Dec 16, 2023 10:00 AM VA-TOBACCO USE POWER WOOD SAWYER YES [facility] Dec 16, 2023 10:00 AM VA-TOBACCO USE MED NO [facility] Dec 16, 2023 10:00 AM VA-TOBACCO USE MED YES [facility] Dec 16, 2023 10:00 AM VA-TOBACCO USE WI 30 MIN OF WAKEUP [facility] Dec 16, 2023 10:00 AM VA-TOBACCO USER EVERY DAY [facility] Jan 13, 2023 02:00 PM VA-TOBACCO USE 1 T O < 5 YEARS [facility] Jan 13, 2023 02:00 PM VA-TOBACCO USE ADVICE [facility] Jan 13, 2023 02:00 PM VA-TOBACCO USE POWER WOOD SAWYER NO [facility] Jan 13, 2023 02:00 PM VA-TOBACCO USE MED NO [facility] Jan 13, 2023 02:00 PM VA-TOBACCO USE WI 30 MIN OF WAKEUP [facility] Jan 13, 2023 02:00 PM VA-TOBACCO USER EVERY DAY [facility] Jul 03, 2022 09:00 AM VA-TOBACCO FORMER USER [facility] Jul 03, 2022 09:00 AM VA-TOBACCO QUIT 5 TO < 15 YRS [facility] Jul 04, 2021 09:00 AM VA-TOBACCO USE > 1 5 LESS THAN 30 YEARS [facility] Jul 04, 2021 09:00 AM VA-TOBACCO USE ADVICE [facility] Jul 04, 2021 09:00 AM VA-TOBACCO USE POWER WOOD SAWYER NO [facility] Jul 04, 2021 09:00 AM VA-TOBACCO USE MED NO [facility] Jul 04, 2021 09:00 AM VA-TOBACCO USE [place] 30 MIN OF [facility] Jul 04, 2021 09:00 AM VA-TOBACCO USER SOME DAYS [facility] Apr 30, 2020 10:39 AM VA-TOBACCO FORMER USER [facility] Apr 30, 2020 10:39 AM VA-TOBACCO QUIT 5 TO < 15 YRS [facility] Dec 21, 2018 03:15 PM VA-TOBACCO FORMER USER [facility] Dec 21, 2018 03:15 PM VA-TOBACCO QUIT 1 TO < 5 YRS [facility] Nov 24, 2017 09:54 AM CURRENT SMOKER cigarets [facility] Nov 24, 2017 09:54 AM V1-PT READY TO SHARAN T TOBACCO USE [facility] Mar 25, 2017 01:57 PM CURRENT SMOKER down to 10 cigarettes daily [facility] Mar 25, 2017 01:57 PM V1-PT DECLINES TOB ACCO CESSATION [facility] Mar 25, 2017 01:57 PM V1-PT READY TO SHARAN T TOBACCO USE [facility] March 04, 2017 02:38 PM CURRENT SMOKER advise stopm [facility] Jul 22, 2016 09:29 AM V1-PT NOT INTEREST ED IN QUIT TOBACCO USE [facility] Nov 21, 2015 09:21 AM CURRENT SMOKER half a pack a day [facility] Nov 21, 2015 09:21 AM V1-PT NOT INTEREST ED IN QUIT TOBACCO USE [facility] Nov 23, 2014 08:51 AM CURRENT SMOKER [facility] Nov 23, 2014 08:51 AM V1-PT READY TO SHARAN T TOBACCO USE [facility] Dec 16, 2013 02:19 PM CURRENT SMOKER 3/4 pack a day [facility] Dec 16, 2013 02:19 PM V1-PT THINKING ABO UT QUIT TOBACCO USE [facility] Advance Directives: All historical and current Section Date Range: From patient's date of to the date document was created. This section includes ALL of a patient's completed or amended [place] Advance and Rescinded Directives. The entries below indicate that a directive exists for the patient, but an actual copy is not included with this document. The data comes from all [place] facilities. Date Advance Directives Provider Source Dec 12, 2014 ADVANCE DIRECTIVE KATRIN GREEN
--- OUTSIDE RECORDS SUMMARY | 2024-12-19 06:00 | XMS_ITS | Encounter Summary ---
Author Name [facility] [place] [facility] [place] Address [address] [place] [address] Care Team Providers Care Outreach Professional Name Role Phone AUSTIN BALDWIN [facility] Insurance Providers: All historical and [...] PATRICIO ERICKSON Nov 14, 2024 PATRICIO MULLIGAN [id number] Dougie RIVERA PATIENT [facility] MEDICAID MEDICAID MEDIC AID Oct 05, 2016 MEDICAI D [id number] NICOLE,A NALELLY PATIENT MEDICAID MEDICAID [facility] STAND BEATRICE Oct 05, 2014 MEDICAI D [id number] Dougie RIVERA NALLELY PATIENT MEDICARE (WNR) MEDICARE (M) PART A May 05, 2018 PART A [id number] [facility] Dougie RIVERA NALLELY PATIENT MEDICARE (WNR) MEDICARE (M) PART B May 05, 2018 PART B [id number] [facility] [phone] [id number] Dougie RIVERA PATIENT Selected Encounter This section includes the information on record at [place] for the Encounter. Date/Time Encounter Type Encounter Description Reason Provider Source Dec 19, 2024 10:00 AM MTMS BY ANJALI SNEED 15 MIN CLINICAL PHARMACY ICD-10-CM E11.9 Type 2 diabetes mellitus without complications SWAPNIL NEWMAN Nancy Encounter Template Text not used by [place] Assessments - Encounter Diagnoses This section includes the primary and secondary diagnoses documented for the Encounter. Date/Time Primary/Secondary Diagnosis Diagnosis Name Provider Source Dec 19, 2024 10:54 AM PRIMARY Type 2 diabetes mellitus without complications SWAPNIL NEWMAN [place] Plan of Treatment: Future Appointments (+ 6 months) and Future Tests (+/- 45 days) The Plan of Treatment section includes future care activities for the patient [facility] all [place] [facility] This section includes future appointments and [...] - MEDICINE [place] [facility] [place] [facility] Jan 09, 2025 01:30 PM AMBULATORY - MEDICINE [place] [facility] [place] [facility] Jan 12, 2025 09:00 AM AM[facility]ULATORY - MEDICINE [facility] Jan 26, 2025 09:30 AM AMBULATORY - MEDICINE [place] [facility] [place] [facility] February 06, 2025 09:00 AM AMBULATORY - MEDICINE [facility] February 08, 2025 01:00 PM AMBULATORY - MEDICINE [place] [facility] [place] [facility] February 13, 2025 01:00 PM AMBULATORY - MEDICINE [facility] March 01, 2025 12:30 PM AMBULATORY - MEDICINE [facility] Mar 07, 2025 09:00 AM AMBULATORY - MEDICINE [place] [facility] [place] [facility] Mar 09, 2025 08:30 AM AMBULATORY - MEDICINE [place] [facility] [place] [facility] Mar 14, 2025 09:00 AM AMBULATORY - MEDICINE [place] [facility] [place] [facility] Mar 14, 2025 10:00 AM AMBULATORY - MEDICINE [place] [facility] [place] [facility] Mar 14, 2025 10:15 AM AMBULATORY - MEDICINE [place] [facility] [place] [facility] Mar 27, 2025 09:15 AM AMBULATORY - NONE [place] [facility] [place] [facility] Mar 31, 2025 01:00 PM AMBULATORY - MEDICINE [place] [facility] [place] [place] [facility] Apr 13, 2025 09:00 AM AMBULATORY - NONE [facility] Apr 20, 2025 09:00 AM AMBULATORY - NONE [facility] Apr 21, 2025 09:00 AM AMBULATORY - MEDICINE [facility] [place] Apr 21, 2025 09:15 AM AMBULATORY - MEDICINE [place] [facility] [place] [place] [facility] Apr 24, 2025 01:00 PM [facility] Lab Results: +/- 30 days [...] Type Comment Dec 19, 2024 10:15 AM [place] GLUCOSE, Fingerstick BLOOD Specimen T ype: BLOOD Comment: For GLU FinTest performed by: Christy Robbins For GLU Fin Meter #: [id number] Ordering Provider: SWAPNIL NEWMAN Report Released Date/Time: Dec 19, 2024 04:05 PM Reporting Lab: [address] [address] Performing Lab: [address] [address] GLUCOSE, Fingerstick 133 mg/dL H 65-100 Dec 15, 2024 09:34 AM [place] CREATININE (eGFR 2020) SERUM Specimen Type: SERUM No comment entered. Ordering Provider: SWAPNIL NEWMAN Report Released Date/Time: Dec 14, 2024 02:29 PM Reporting Lab: [facility] [address] [address] Performing Lab: [facility] [address] [address] CREATININE, Serum 1.27 mg/dL 0.50-1.40 eGFR(CKD-EPI 2020) 63 mL/min >60 Dec 15, 2024 09:34 AM [place] HEMOGLOBIN A1C PANEL BLOOD Specimen T ype: BLOOD Comment: Values obtained from A1C measurements can vary. For atypical A1C assays, a reported value of 7.0 could actually be between 6.72 and 7.28 if measured by a reference method. A reported value of 9.0 could actually be between 8.73 and 9.27. Ref: http://www.ngsp.org/[email or web address] Ordering Provider: SWAPNIL NEWMAN Report Released Date/Time: Dec 14, 2024 02:29 PM Reporting Lab: [facility] [address] [address] Performing Lab: [facility] [address] [address] HEMOGLOBIN A1C 5.8 H 4.0-5.6 Social History: Smoking Status (Most current) and Tobacco Use (All prior to encounter date) This section includes the most current, and the historical, smoking and tobacco- related health factors from the [place] facility where the Encounter took place. Current Smoking Status This section includes the most current smoking, or tobacco-related health factor, from the [place] facility where the Encounter took place. Date/Time Current Smoking Status Comment Facil [facility] Dec 16, 2023 10:00 AM VA-TOBACCO USER EVERY DAY [place] Tobacco Use History This section includes a history of the smoking, or tobacco-related health factors, that were collected on or before the date of the Encounter. The data comes from the [place] facility where the Encounter took place. Date/Time Smoking Status/Tobacco Use Comment F acility Dec 16, 2023 10:00 AM VA-TOBACCO USE > 1 5 LESS THAN 30 YEARS [place] Dec 16, 2023 10:00 AM VA-TOBACCO USE 30 YEARS OR MORE [place] Dec 16, 2023 10:00 AM VA-TOBACCO USE ADVICE [place] Dec 16, 2023 10:00 AM VA-TOBACCO USE ADVERTISING STRATEGIST NO [facility] Dec 16, 2023 10:00 AM VA-TOBACCO USE ADVERTISING STRATEGIST YES [place] Dec 16, 2023 10:00 AM VA-TOBACCO USE MED NO [place] Dec 16, 2023 10:00 AM VA-TOBACCO USE MED YES [place] Dec 16, 2023 10:00 AM VA-TOBACCO USE WI 30 MIN OF WAKEUP [place] Dec 16, 2023 10:00 AM VA-TOBACCO USER EVERY DAY [place] Jan 13, 2023 02:00 PM VA-TOBACCO USE 1 T O < 5 YEARS [place] Jan 13, 2023 02:00 PM VA-TOBACCO USE ADVICE [place] Jan 13, 2023 02:00 PM VA-TOBACCO USE ADVERTISING STRATEGIST NO [place] Jan 13, 2023 02:00 PM VA-TOBACCO USE MED NO [place] Jan 13, 2023 02:00 PM VA-TOBACCO USE WI 30 MIN OF WAKEUP [place] Jan 13, 2023 02:00 PM VA-TOBACCO USER EVERY DAY [facility] Jul 03, 2022 09:00 AM VA-TOBACCO FORMER USER [facility] Jul 03, 2022 09:00 AM VA-TOBACCO QUIT 5 TO < 15 YRS [place] Jul 04, 2021 09:00 AM VA-TOBACCO USE > 1 5 LESS THAN 30 YEARS [place] Jul 04, 2021 09:00 AM VA-TOBACCO USE ADVICE [place] Jul 04, 2021 09:00 AM VA-TOBACCO USE ADVERTISING STRATEGIST NO [place] Jul 04, 2021 09:00 AM VA-TOBACCO USE MED NO [place] Jul 04, 2021 09:00 AM VA-TOBACCO USE WI 30 MIN OF [facility] Jul 04, 2021 09:00 AM VA-TOBACCO USER SOME DAYS [place] Apr 30, 2020 10:39 AM VA-TOBACCO FORMER USER [facility] Apr 30, 2020 10:39 AM VA-TOBACCO QUIT 5 TO < 15 YRS [place] Dec 21, 2018 03:15 PM VA-TOBACCO FORMER USER [place] Dec 21, 2018 03:15 PM VA-TOBACCO QUIT 1 TO < 5 YRS [place] Nov 24, 2017 09:54 AM CURRENT SMOKER cigarets [place] Nov 24, 2017 09:54 AM V1-PT READY TO SHARAN T TOBACCO USE [place] Mar 25, 2017 01:57 PM CURRENT SMOKER down to 10 cigarettes daily [place] Mar 25, 2017 01:57 PM V1-PT DECLINES TOB ACCO CESSATION MEDS [facility] Mar 25, 2017 01:57 PM V1-PT READY TO SHARAN T TOBACCO USE [place] March 04, 2017 02:38 PM CURRENT SMOKER advise stopm [place] Jul 22, 2016 09:29 AM V1-PT NOT INTEREST ED IN QUIT TOBACCO USE [place] Nov 21, 2015 09:21 AM CURRENT SMOKER half a pack a day [place] Nov 21, 2015 09:21 AM V1-PT NOT INTEREST ED IN QUIT TOBACCO USE [place] Nov 23, 2014 08:51 AM CURRENT SMOKER [facility] Nov 23, 2014 08:51 AM V1-PT READY TO SHARAN T TOBACCO USE [place] Dec 16, 2013 02:19 PM CURRENT SMOKER 3/4 pack a day [place] Dec 16, 2013 02:19 PM V1-PT THINKING ABO UT QUIT TOBACCO USE [place] Advance Directives: All historical and current Section [...] Encounter Note(s) Provider Source Dec 19, 2024 10:54 AM ADDENDUM: LOCAL TITLE: Addendum STANDARD TITLE: ADDENDUM DATE OF NOTE: DEC 19, 2024@10:54:21 ENTRY DATE: DEC 19, 2024@10:54:22 AUTHOR: SWAPNIL NEWMAN EXP COSIGNER: URGENCY: STATUS: COMPLETED Clinic's Next Scheduled Follow-up: TBD; will ask clinical asst to please f/u with end of the week and schedule FTF visit upon discharge from hospital. Thank you! /karlene/ Swapnil Newman PharmD Clinical Pharmacy Practitioner Signed: 12/19/2024 10:54 Receipt Acknowledged By: 12/19/2024 10:57 /karlene/ KYLE VERDUZCO Clinical House Fellow == --- Original Document --- 12/19/24 PHARMACY CLINIC NOTE: Known Allergies: CODEINE, OXYCODONE ANGELA RIVERA contacted for diabetes management. Subjective: [place] referred to pharmacy clinic by PCP. Per [...] nephro consult . Since last visit, pt has remained tobacco free and has stopped varenicline. Continues to f/u with tobacco cessation clinic. Semaglutide was reduced at time of last visit; notes N/V improved since then. However, a few days ago, started having symptoms of chills/vomiting. Has not been eating much. As noted previously, LSMs have lead to >20lb weight loss. He has had these episodes before resulting in ER visit, but has not wanted to d/c semaglutide. Seen by PCP today for sick call . Target Goals: A1C: 7%; FB-110 mg/dl Objective: Diabetes Medication Regimen: semaglutide 1mg once weekly Adherence: denies missed doses HEMOGLOBIN A1C TREND Collection DT Spec HGBA1c 12/15/2024 09:34 BLOOD 5.8 H 09/19/2024 08:34 BLOOD 5.7 H 09/13/2024 07:33 BLOOD 5.8 H 02/23/2024 09:11 BLOOD 6.4 H 11/25/2023 07:00 BLOOD 6.6 H LIPID PANEL TREND Collection DT Spec [...] 99 Reflex to dLDL 421 H CREATININE-EGFR 12/15/24 09:34 1.27 09/20/24 09:25 1.07 09/19/24 08:34 1.12 BP: 109/74 (11/15/2024 08:38) HR: 76 (11/15/2024 08:38) HT: 68 in [172.7 cm] (11/21/2023 09:25) WT: 228 lb [103.42 kg] (11/15/2024 08:38) BMI: BMI: 34.7 Patient self-monitoring of blood glucose: Health-Tarik: At home : Patient self-monitors blood glucose 1-2x/week and reports the following (mg/dl): 05/20/24 Reports BG ~106mg/dL. 07/29/24 Not SMBG but will resume. 09/07/24 Not SMBG but will resume. 09/20/24 BG today 110mg/dL. 12/19/24 Has not SMBG. Patient eats on avg. 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 A1c at goal. Pt evaluated by PCP and ER transfer recommended. Advised pt to DISCONTINUE semaglutide at this time given concerns of GI ADRs as well. Will f/u upon discharge. SGLT-2 inhibitor avoided given fluctuation in renal function resulting in several hospitalizations; reassess in the future. If needed, consider Arti 3 in future but given A1c at goal and starting GLP-1 agonist, will not consider at this time. 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 He will ask for assistance from others as possible. Diabetes (Goal A1c<7%, FBG 90-110mg/dL, 2hPP<180mg/dL): - DISCONTINUE semaglutide 1mg once weekly - Monitor for s/sx hypoglycemia and contact clinic if BG consistently < 70mg/dL - Healthy dietary lifestyle modifications encouraged - Repeat A1c: March 2025 Tobacco Cessation: Congratulated pt on tobacco cessation. Continue with tobacco cessation clinic. Clinic's Next Scheduled Follow-up: TBD; will ask clinical asst to please f/u with [place] end of the week and schedule FTF visit upon discharge from hospital. Thank you! HTN: at goal; DAMARI-I changed to CCB d/t rise in SCr; f/u nephrology ASCVD: not on statin; on fenofibrate; defer to PCP/review at f/u Microalb: 12.4 mg/G (09/2025) History of Preventive Care: Most recent visit to emt p: 01/2024 Most recent visit to optometry: 07/2023; T2 Diabetes without retinopathy or macular edema OU Time Spent: 30 minutes PBM PharmD Pharmacotherapy Rem V12: PHARMACIST INTERVENTIONS: TYPE 2 DIABETES MELLITUS Medication Intervention(s) Discontinue and/or change to different medication Medication reconciliation (changes to active VA and non-VA medication lists to reconcile differences) Changes to medication lists made Discontinue or remove medication /karlene/ Swapnil Newman PharmD Clinical Pharmacy Practitioner Signed: 12/19/2024 10:54 12/19/2024 ADDENDUM STATUS: COMPLETED Suicide Screen: C-SSRS Screening [place]-Suicide Severity Rating Scale (C-SSRS Screener) 1. Over the past month, have you wished you were or wished you could go to sleep and not wake up? No 2. Over the past month, have you had any actual thoughts of killing yourself? No 3. Over the past month, have you been thinking about how you might do this? Response not required due to responses to other questions. 4. Over the past month, have you had these thoughts and had some intention of acting on them? Response not required due to responses to other questions. 5. Over the past month, have you started to work out or worked out the details of how to kill yourself? Response not required due to responses to other questions. 6. If yes, at any time in the past month did you intend to carry out this plan? Response not required due to responses to other questions. 7. In your lifetime, have you ever done anything, started to do anything, or prepared to do anything to end your life (for example, collected pills, obtained a gun, gave away valuables, went to the roof but didn't jump)? No 8. If YES, was this within the past 3 months? Response not required due to responses to other questions. Has f/u at [facility] ([facility]). /jaya Newman PharmD Clinical Pharmacy Practitioner Signed: 12/19/2024 10:56 [place] Dec 19, 2024 09:51 AM PHARMACY OUTPATIEN T NOTE: LOCAL TITLE: PHARMACY CLINIC NOTE STANDARD TITLE: PHARMACY OUTPATIENT NOTE DATE OF NOTE: DEC 19, 2024@09:51 ENTRY DATE: DEC 19, 2024@09:51:30 AUTHOR: SWAPNIL NEWMAN EXP COSIGNER: URGENCY: STATUS: COMPLETED PHARMACY CLINIC NOTE [...] nephro consult . Since last visit, pt has remained tobacco free and has stopped varenicline. Continues to f/u with tobacco cessation clinic. Semaglutide was reduced at time of last visit; notes N/V improved since then. However, a few days ago, started having symptoms of chills/vomiting. Has not been eating much. As noted previously, LSMs have lead to >20lb weight loss. He has had these episodes before resulting in ER visit, but has not wanted to d/c semaglutide. Seen by PCP today for sick call . Target Goals: A1C: 7%; FB-110 mg/dl Objective: Diabetes Medication Regimen: semaglutide 1mg once weekly Adherence: denies missed doses HEMOGLOBIN A1C TREND Collection DT Spec HGBA1c 12/15/2024 09:34 BLOOD 5.8 H 09/19/2024 08:34 BLOOD 5.7 H 09/13/2024 07:33 BLOOD 5.8 H 02/23/2024 09:11 BLOOD 6.4 H 11/25/2023 07:00 BLOOD 6.6 H LIPID PANEL TREND Collection DT Spec [...] 99 Reflex to dLDL 421 H CREATININE-EGFR 12/15/24 09:34 1.27 09/20/24 09:25 1.07 09/19/24 08:34 1.12 BP: 109/74 (11/15/2024 08:38) HR: 76 (11/15/2024 08:38) HT: 68 in [172.7 cm] (11/21/2023 09:25) WT: 228 lb [103.42 kg] (11/15/2024 08:38) BMI: BMI: 34.7 Patient self-monitoring of blood glucose: Health-Tarik: At home : Patient self-monitors blood glucose 1-2x/week and reports the following (mg/dl): 05/20/24 Reports BG ~106mg/dL. 07/29/24 Not SMBG but will resume. 09/07/24 Not SMBG but will resume. 09/20/24 BG today 110mg/dL. 12/19/24 Has not SMBG. Patient eats on avg. 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 A1c at goal. Pt evaluated by PCP and ER transfer recommended. Advised pt to DISCONTINUE semaglutide at this time given concerns of GI ADRs as well. Will f/u upon discharge. SGLT-2 inhibitor avoided given fluctuation in renal function resulting in several hospitalizations; reassess in the future. If needed, consider Arti 3 in future but given A1c at goal and starting GLP-1 agonist, will not consider at this time. 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 He will ask for assistance from others as possible. Diabetes (Goal A1c<7%, FBG 90-110mg/dL, 2hPP<180mg/dL): - DISCONTINUE semaglutide 1mg once weekly - Monitor for s/sx hypoglycemia and contact clinic if BG consistently < 70mg/dL - Healthy dietary lifestyle modifications encouraged - Repeat A1c: March 2025 Tobacco Cessation: Congratulated pt on tobacco cessation. Continue with tobacco cessation clinic. Clinic's Next Scheduled Follow-up: TBD; will ask clinical asst to please f/u with end of the week and schedule FTF visit upon discharge from hospital. Thank you! HTN: at goal; DAMARI-I changed to CCB d/t rise in SCr; f/u nephrology ASCVD: not on statin; on fenofibrate; defer to PCP/review at f/u Microalb: 12.4 mg/G (09/2025) History of Preventive Care: Most recent visit to emt p: 01/2024 Most recent visit to optometry: 07/2023; T2 Diabetes without retinopathy or macular edema OU Time Spent: 30 minutes PBM PharmD Pharmacotherapy Rem V12: PHARMACIST INTERVENTIONS: TYPE 2 DIABETES MELLITUS Medication Intervention(s) Discontinue and/or change to different medication Medication reconciliation (changes to active VA and non-VA medication lists to reconcile differences) Changes to medication lists made Discontinue or remove medication /karleen/ Swapnil Newman PharmD Clinical Pharmacy Practitioner Signed: 12/19/2024 10:54 12/19/2024 ADDENDUM STATUS: COMPLETED Clinic's Next Scheduled Follow-up: TBD; will ask clinical asst to please f/u with [place] end of the week and schedule FTF visit upon discharge from hospital. Thank you! /jaya Newman PharmD Clinical Pharmacy Practitioner Signed: 12/19/2024 10:54 Receipt Acknowledged By: 12/19/2024 10:57 /karlene/ KYLE VEDRUZCO Clinical House Fellow 12/19/2024 ADDENDUM STATUS: COMPLETED Suicide Screen: C-SSRS Screening [place]-Suicide Severity Rating Scale (C-SSRS Screener) 1. Over the past month, have you wished you were or wished you could go to sleep and not wake up? No 2. Over the past month, have you had any actual thoughts of killing yourself? No 3. Over the past month, have you been thinking about how you might do this? Response not required due to responses to other questions. 4. Over the past month, have you had these thoughts and had some intention of acting on them? Response not required due to responses to other questions. 5. Over the past month, have you started to work out or worked out the details of how to kill yourself? Response not required due to responses to other questions. 6. If yes, at any time in the past month did you intend to carry out this plan? Response not required due to responses to other questions. 7. In your lifetime, have you ever done anything, started to do anything, or prepared to do anything to end your life (for example, collected pills, obtained a gun, gave away valuables, went to the roof but didn't jump)? No 8. If YES, was this within the past 3 months? Response not required due to responses to other questions. Has MH f/u at [facility] ([facility]). /karlene/ Swapnil Newman PharmD Clinical Pharmacy Practitioner Signed: 12/19/2024 10:56 12/22/2024 ADDENDUM STATUS: COMPLETED patient scheduled for 01/24 at 2:00 in clinic /jaya VERDUZCO Clinical House Fellow Signed: 12/22/2024 14:10 01/03/2025 ADDENDUM STATUS: COMPLETED patient is rescheduled for 02/13 at 1:00 in clinic /jaya VERDUZCO Clinical House Fellow Signed: 01/03/2025 15:15 SWAPNIL NEWMAN
--- OUTSIDE RECORDS SUMMARY | 2024-12-28 11:00 | XMS_ITS | Encounter Summary ---
Author Name [facility] Organization [facility] [place] Address [address] [place] [address] Care Team Providers Care Paid Search Analyst Name Role Phone AUSTIN BALDWIN Primary [...] Relationship to Policy Lomas PATRICIO MULLIGAN-WN R [place] SPECIAL CLASS PATRICIO ERICKSON Nov 14, 2024 PATRICIO MULLIGAN [id number] NICOLE,A NALLELY PATIENT [facility] MEDICAID MEDICAID MEDIC AID Oct 05, 2016 MEDICAI D [id number] NICOLE,A NALLELY PATIENT MEDICAID MEDICAID [facility] STAND BEATRICE Oct 05, 2014 MEDICAI D [id number] NICOLE,Dougie NALLELY PATIENT MEDICARE (WNR) MEDICARE (M) PART A May 05, 2018 PART A [id number] [id number] Dougie RIVERA NALLELY PATIENT MEDICARE (WNR) MEDICARE (M) PART B May 05, 2018 PART B [id number] Dougie RIVERA PATIENT Selected Encounter This section includes the information on record at DC for the Encounter. Date/Time Encounter Type Encounter Description Reason Provider Source Dec 28, 2024 03:00 PM OFFICE O/P NEW LOW 30 MIN DERMATOLOGY ICD-10-CM Z85.828 Personal history of other malignant neoplasm of skin GARRET MALDONADO [facility] Encounter Template Text not used by DC Assessments - Encounter Diagnoses This section includes the primary and secondary diagnoses documented for the Encounter. Date/Time Primary/Secondary Diagnosis Diagnosis Name Provider Source Dec 28, 2024 03:41 PM PRIMARY Personal history of other malignant [facility] [place] [facility] Dec 28, 2024 03:41 PM SECONDARY Hemangioma of skin and subcutaneous tissue [facility] [place] [facility] Dec 28, 2024 03:41 PM SECONDARY Nevus, non-neoplastic [facility] [place] [facility] Dec 28, 2024 03:41 PM SECONDARY Other melanin hyperpigmentation [facility] [place] [facility] Dec 28, 2024 03:41 PM SECONDARY Other [facility]borrheic ker[facility] [place] [facility] Plan of Treatment: Future Appointments (+ 6 months) and Future Tests (+/- 45 days) The Plan of Treatment section includes future care activities for the patient from [facility] This section includes future appointments and future orders which are active, pending or scheduled. Future Appointments This section includes appointments that were scheduled to occur 6 months from the date of the Encounter, up to a maximum of 20 appointments. The data comes from all [place] treatment facilities. Appointment Date/Time Appointment Type Appointme nt Facility Name Jan 09, 2025 01:30 PM AMBULATORY - MEDICINE [place] [facility] [place] [facility] Jan 12, 2025 09:00 AM AMBULATORY - MEDICINE [facility] Jan 26, 2025 09:30 AM AMBULATORY - MEDICINE [place] [facility] [place] [facility] February 06, 2025 09:00 AM AMBULATORY - MEDICINE [facility] February 08, 2025 01:00 PM AMBULATORY - MEDICINE [place] [facility] [place] [facility] February 13, 2025 01:00 PM [facility] March 01, 2025 12:30 PM [facility] Mar 07, 2025 09:00 AM AMBULATORY - MEDICINE [facility] [place] [facility] Mar 09, 2025 08:30 AM AMBULATORY - MEDICINE [facility] [place] [facility] Mar 14, 2025 09:00 AM AMBULATORY - MEDICINE [facility] [place] [facility] Mar 14, 2025 10:00 AM AMBULATORY - MEDICINE [facility] [place] [facility] Mar 14, 2025 10:15 AM AMBULATORY - MEDICINE [facility] [place] [facility] Mar 27, 2025 09:15 AM AMBULATORY - NONE [facility] [place] [facility] Mar 31, 2025 01:00 PM AMBULATORY - MEDICINE [facility] [place] [facility] Apr 13, 2025 09:00 AM AM[facility]ULATORY - NONE [facility] Apr 20, 2025 09:00 AM [facility]ORY - NONE [facility] Apr 21, 2025 09:00 AM [facility]ORY - MEDICINE [facility] Apr 21, 2025 09:15 AM AMBULATORY - MEDICINE [facility] [place] [facility] Apr 24, 2025 01:00 PM AMBULATORY - MEDICINE [facility] [place] [facility] Apr 27, 2025 09:00 AM AMBULATORY - NONE [facility] Lab Results: +/- 30 days of the encounter This section includes the Chemistry and Hematology Lab Results on record with DC for the patient. Radiology Reports and Pathology Reports are provided separately, in subsequent sections. Lab Results This section contains the Chemistry/Hematology Results that were resulted 30 days before or 30 daysafter the date of the Encounter. Date/Time Source Result Type Result - Unit Interpretation Reference Range Specimen Type Comment Dec 19, 2024 10:15 AM [place] GLUCOSE, Fingerstick BLOOD Specimen T ype: BLOOD Comment: For GLU FinTest performed by: Christy Robbins For GLU Fin Meter #: [id number] Ordering Provider: SWAPNIL SCHOFIELD Report Released Date/Time: Dec 19, 2024 04:05 PM Reporting Lab: [address] [address] Performing Lab: [address] [address] GLUCOSE, Fingerstick 133 mg/dL H 65-100 Dec 15, 2024 09:34 AM [place] CREATININE (eGFR 2020) SERUM Specimen Type: SERUM No comment entered. Ordering Provider: SWAPNIL SCHOFIELD Report Released Date/Time: Dec 14, 2024 02:29 PM Reporting Lab: [address] [address] Performing Lab: [address] [address] CREATININE, Serum 1.27 mg/dL 0.50-1.40 eGFR(CKD-EPI 2020) 63 mL/min >60 Dec 15, 2024 09:34 AM [place] HEMOGLOBIN A1C PANEL BLOOD Specimen T ype: [...] Dec 14, 2024 02:29 PM Reporting Lab: [address] [address] Performing Lab: [address] [address] HEMOGLOBIN A1C 5.8 H 4.0-5.6 Advance Directives: All historical and current Section Date Range: From patient's date of to the date document was created. This section includes ALL of a patient's completed or amended DC Advance and Rescinded Directives. The entries below indicate that a directive exists for the patient, but an actual copy is not included with this document. The data comes from all [place] facilities. Date Advance Directives Provider Source Dec 12, 2014 ADVANCE DIRECTIVE KATRIN GREEN Encounter Notes: All associated encounter notes This section contains the clinical notes associated to the Encounter. Date/Time Encounter Note(s) Provider Source Dec 28, 2024 02:59 PM DERMATOLOGY CONSULT: LOCAL TITLE: CONSULT REPORT/DERMATOLOGY STANDARD TITLE: DERMATOLOGY CONSULT DATE OF NOTE: DEC 28, 2024@14:59 ENTRY DATE: DEC 28, 2024@14:59:44 AUTHOR: RACHELL MALDONADO EXP COSIGNER: URGENCY: STATUS: COMPLETED DEC 28, 2024 ANGELA RIVERA Jun 64 PATIENT PHONE - Patient here for: NEW CONSULT CHIEF COMPLAINT: SK, h/o NMSC HPI: [place] presents s/p TeleDerm 03/2024. Reviewed images and report. reports crusting area on L scalp - otherwise asymptomatic. denies any other new/changing/bleeding/non- healing lesions. Reviewed records in [facility] (all available). 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 Family Hx: Denies known h/o MM PastMedHx: Reviewed History of Sun Exposure/Sunburns: Denies h/o blistering randolph or tanning bed use. Active Outpatient Medications (including Supplies): Active Outpatient [...] (D3-2,000UNIT) TAB TAKE ONE TABLET BY ACTIVE (S) MOUTH ONCE DAILY Indication: FOR VITAMIN D DEFICIENCY 5) FENOFIBRATE 145MG TAB TAKE ONE TABLET BY MOUTH ONCE DAILY ACTIVE Indication: FOR HIGH CHOLESTEROL 6) FERROUS GLUCONATE 324MG TAB TAKE ONE TABLET BY MOUTH EVERY ACTIVE OTHER DAY Indication: TO SUPPLEMENT IRON 7) OMEPRAZOLE 20MG EC CAP TAKE ONE CAPSULE BY MOUTH TWICE DAILY ACTIVE Indication: FOR EXCESSIVE PRODUCTION OF STOMACH ACID 8) SEMAGLUTIDE 1MG/0.75ML INJ PEN 3ML INJECT 1MG SUBCUTANEOUSLY ACTIVE ONCE A WEEK Indication: FOR TYPE 2 DIABETES MELLITUS Active Non-VA Medications Status 1) Non-VA ASPIRIN 81MG EC TAB 81MG BY MOUTH EVERY DAY ACTIVE 2) Non-VA BUSPIRONE HCL 5MG TAB 5MG BY MOUTH TWICE DAILY ACTIVE 3) Non-VA CLONAZEPAM 1MG TAB 1MG BY MOUTH TWICE DAILY ACTIVE 4) Non-VA HYDROXYZINE HCL 25MG TAB 25MG BY MOUTH ONCE DAILY ACTIVE 5) Non-VA OLANZAPINE 5MG TAB 5MG BY MOUTH TWICE DAILY ACTIVE 6) Non-VA ONDANSETRON HCL 4MG TAB 4MG BY MOUTH DIRECVTED ACTIVE 7) Non-VA TRAZODONE HCL 100MG TAB 50MG BY MOUTH AT BEDTIME ACTIVE 8) Non-VA VENLAFAXINE HCL 150MG 24HR SA CAP 150MG BY MOUTH ONCE ACTIVE DAILY 16 Total Medications PHYSICAL EXAM: Arguelles Skintype II General-AxOx3, NAD, pleasant, breathing unlabored, speech clear Cutaneous examination, as permitted by the patient, including scalp, face, eyes, ears, neck, chest, back, abdomen, arms, hands, fingers, legs and buttocks. Pertinent findings per below: -Multiple scattered stuck-on appearing waxy hudson and brown papules and plaques with noted milia-like cysts, comedo-like openings and fissures/ridges on dermoscopy [L scalp lesion of concern] -Scattered uniformly pigmented light hudson and brown jagged macules in sun distributed areas. -Scattered wills-red dome shaped papules on chest/back with noted lacunae and septae noted on dermoscopy -Multiple scattered symmetrical evenly pigmented brown macules and papules, most under 6mm. -L 5th digit, proximal medial aspect with a well healed surgical scar, no abnormal pigmentation or lesions Diagnosis/Plan: #Personal History of Non-Melanotic Skin Cancer: -No evidence of recurrence at surgical site -Full Body Skin Exam advised at least yearly -Photoprotection discussed -Patient instructed to follow up in clinic for any concerning lesions or changes #Seborrheic Keratoses: -The was educated regarding the benign nature, but to return with any growth, change or symptoms in area. #Nevi: -ABCDEs of melanotic lesions discussed, self examinations encouraged -No concerning lesions today on examination -A full body skin check is recommended yearly -Photoprotection discussed. #Solar Lentigines -The was educated regarding the benign nature and relation to chronic sun exposure, but to return with any growth, change or symptoms in area. -Photoprotection discussed. #Wills Angiomas: -The was educated regarding the benign nature, but to return with any growth, change or symptoms in area. RTC 1 yr, sooner PRN * [place] educated to RTC danial if any new, changing, non-healing, or symptomatic lesions. * Education on sun protection and avoidance strategies was provided. * Encouraged monthly skin self exams for lesions changing in size, shape, or color, or non-healing lesions * Differential diagnosis, prescription options and risks/benefits were discussed with the patient, who consented to treatment plan. * [place] consented to photography for documentation if indicated. * A dermatoscope was used during the exam. * NUB = Neoplasm of Uncertain Behavior of Skin * NMSC = Nonmelanoma Skin Cancer * AK = Actinic Keratosis ------TIME ESTIMATION To include but not limied to: -Review of medical records -Time spent with patient including obtaining history, physical exam, shared decision making, procedures and counseling -Post visit documentation; HPI and physical exam findings, clinical researching, medical decision making, medication and lab ordering Total estimated time = 40 min ------- Medication Reconciliation: Outpatient: Has the patient been taking medications as documented in the EMLR? YES: The patient has been taking medications as documented in the EMLR. Essential Medication List for Review used to complete this medication reconciliation. INCLUDED IN THIS LIST: Alphabetical list of active outpatient prescriptions dispensed from this DC (local) and dispensed from another VA or [...] whether with a VA or non-VA provider. JLV Link Data on this list may not be complete. Please check JLV. Allergies/ADRs (Tool #5) FACILITY ALLERGY/ADR -------- [facility] [place] [facility] [place] [facility] (Tool #1) INCLUDED IN THIS LIST: Alphabetical list of active outpatient prescriptions dispensed from this VA (local) and dispensed from another VA or DoD facility (remote) as well as inpatient orders (local pending and active), local clinic medications, locally documented non-VA medications, and local prescriptions that have or been discontinued in the past 90 days. Non-VA Meds Last Documented On: Aug 25, 2023 NOTE The display of VA prescriptions dispensed from another DC or DoD facility (remote) is limited to active outpatient prescription entries matched to National Drug File at the originating site and may not include some items such as investigational drugs, compounds, etc. NOT INCLUDED IN THIS LIST: Medications self-entered by the patient into personal health records (i.e. [employer]) are NOT included in this list. Non-VA medications documented outside this DC, remote inpatient orders (regardless of status) and remote clinic medications are NOT included in this list. The patient and provider must always discuss medications the patient is taking, regardless of where the medication was dispensed or obtained. OUTPT ALBUTEROL 90MCG (CFC-F) 200D ORAL INHL (Status = Discontinued) INHALE 1 PUFF BY MOUTH FOUR TIMES DAILY NEEDED FOR BRONCHOSPASM Rx# [id number] Last Released: 12/21/23 Qty/Days Supply: 11/03 Rx Expiration Date: 11/04/24 Refills Remainin Indication: FOR BRONCHOSPASM OUTPT ALBUTEROL 90MCG (CFC-F) 200D ORAL INHL (Status = Active) INHALE 1 PUFF BY MOUTH FOUR TIMES DAILY NEEDED FOR BRONCHOSPASM Rx# [id number] Last Released: 11/23/24 Qty/Days Supply: 11/03 Rx Expiration Date: 11/16/25 Refills Remainin Indication: FOR BRONCHOSPASM OUTPT AMLODIPINE BESYLATE 10MG TAB (Status = Active) TAKE ONE TABLET BY MOUTH ONCE DAILY FOR BLOOD PRESSURE/HEART, DO NOT TAKE WITH GRAPEFRUIT JUICE Rx# [id number] Last Released: 09/22/24 Qty/Days Supply: Rx Expiration Date: 09/21/25 Refills Remainin Indication: FOR HIGH BLOOD PRESSURE Non-VA ASPIRIN 81MG EC TAB TAKE ONE TABLET BY MOUTH EVERY DAY Medication prescribed by Non-VA provider. Non-VA BUSPIRONE HCL 5MG TAB TAKE ONE TABLET BY MOUTH TWICE DAILY Jun 05, 2021 Non-VA medication not recommended by VA provider. 8am and 8pm OUTPT CHOLECALCIF 50MCG (D3-2,000UNIT) TAB (Status = Discontinued) TAKE ONE TABLET BY MOUTH ONCE DAILY FOR VITAMIN D DEFICIENCY Rx# [id number] Last Released: 10/28/24 Qty/Days Supply: Rx Expiration Date: 01/05/25 Refills Remainin Indication: FOR VITAMIN D DEFICIENCY OUTPT CHOLECALCIF 50MCG (D3-2,000UNIT) TAB (Status = Active/Suspended) TAKE ONE TABLET BY MOUTH ONCE DAILY FOR VITAMIN D DEFICIENCY Rx# [id number] Last Released: Qty/Days Supply: 100 Rx Expiration Date: 11/16/25 Refills Remainin Indication: FOR VITAMIN D DEFICIENCY Non-VA CLONAZEPAM 1MG TAB TAKE ONE TABLET BY MOUTH TWICE DAILY Medication prescribed by Non-VA provider. or tid OUTPT FENOFIBRATE 145MG TAB (Status = Active) TAKE ONE TABLET BY MOUTH ONCE DAILY Rx# [id number] Last Released: 09/08/24 Qty/Days Supply: 9090 Rx Expiration Date: 03/17/25 Refills Remainin Indication: FOR HIGH CHOLESTEROL OUTPT FERROUS GLUCONATE 324MG TAB (Status = Active) TAKE ONE TABLET BY MOUTH EVERY OTHER DAY TO SUPPLEMENT IRON Rx# [id number] Last Released: 10/20/24 Qty/Days Supply: 100 Rx Expiration Date: 10/19/25 Refills Remainin Indication: TO SUPPLEMENT IRON Non-VA HYDROXYZINE HCL 25MG TAB TAKE ONE TABLET BY MOUTH ONCE DAILY Non-VA OLANZAPINE 5MG TAB TAKE ONE TABLET BY MOUTH TWICE DAILY Non-VA medication not recommended by VA provider. OUTPT OMEPRAZOLE 20MG EC CAP (Status = Active) TAKE ONE CAPSULE BY MOUTH TWICE DAILY FOR EXCESSIVE PRODUCTION OF STOMACH ACID Rx# [id number] Last Released: 12/16/24 Qty/Days Supply: 180 Rx Expiration Date: 03/17/25 Refills Remainin Indication: FOR EXCESSIVE PRODUCTION OF STOMACH ACID Non-VA ONDANSETRON HCL 4MG TAB TAKE ONE TABLET BY MOUTH DIRECVTED Medication prescribed by Non-VA provider. when has panic attacks OUTPT SEMAGLUTIDE 1MG/0.75ML INJ PEN 3ML (Status = Discontinued) INJECT 1MG SUBCUTANEOUSLY ONCE A WEEK FOR TYPE 2 DIABETES MELLITUS Rx# [id number] Last Released: 10/18/24 Qty/Days Supply: Rx Expiration Date: 09/21/25 Refills Remainin Indication: FOR TYPE 2 DIABETES MELLITUS OUTPT SEMAGLUTIDE 1MG/0.75ML INJ PEN 3ML (Status = Active) INJECT 1MG SUBCUTANEOUSLY ONCE A WEEK FOR TYPE 2 DIABETES MELLITUS Rx# [id number] Last Released: 12/21/24 Qty/Days Supply: Rx Expiration Date: 11/16/25 Refills Remainin Indication: FOR TYPE 2 DIABETES MELLITUS Non-VA TRAZODONE HCL 100MG TAB TAKE ONE-HALF TABLET BY MOUTH AT BEDTIME OUTPT VARENICLINE 1MG TAB (Status = Discontinued) TAKE ONE TABLET BY MOUTH TWICE DAILY FOR SMOKING CESSATION Rx# [id number] Last Released: 09/22/24 Qty/Days Supply: 60/30 Rx Expiration Date: 07/30/25 Refills Remainin Indication: FOR SMOKING CESSATION Non-VA VENLAFAXINE HCL 150MG 24HR SA CAP TAKE 1 CAPSULE BY MOUTH ONCE DAILY Non-VA medication not recommended by VA provider. SUPPLIES OUTPT ACCU-CHEK GUIDE (GLUCOSE) TEST STRIP (Status = Discontinued) USE 1 STRIP TO TEST BLOOD SUGARS DIRECTED Rx# [id number] Last Released: 02/18/24 Qty/Days Supply: 50/180 Rx Expiration Date: 11/04/24 Refills Remainin OUTPT ACCU-CHEK GUIDE (GLUCOSE) TEST STRIP (Status = Active) USE 1 STRIP TO TEST BLOOD SUGARS DIRECTED Rx# [id number] Last Released: 11/23/24 Qty/Days Supply: 50/180 Rx Expiration Date: 11/16/25 Refills Remainin /karleen/ RACHELL MALDONADO DNP, [employer]-C NURSE PRACTITIONER Signed: 12/28/2024 15:40 RACHELL MALDONADO [facility]
--- OUTSIDE RECORDS SUMMARY | 2025-01-12 05:00 | XMS_ITS | Encounter Summary ---
Author Name [facility] [place] [facility] [place] Address [address] [place] [address] Care Team Providers Care Lens Edge Grinder Machine Name Role Phone AUSTIN BALDWIN Primary Care Provider [facility] Insurance Providers: All historical and current [...] Relationship to Policy Lomas PATRICIO MULLIGAN-WN R [place] SPECIAL CLASS PATRICIO ERICKSON Nov 14, 2024 PATRICIO MULLIGAN [id number] Dougie RIVERA PATIENT [facility] MEDICAID MEDICAID MEDIC AID Oct 05, 2016 MEDICAI D [id number] NICOLE,A NALLELY PATIENT MEDICAID [facility]ICAID [facility] ST[facility]ATR[facility] Oct 05, 2014 MEDICAI D [id number] Dougie RIVERA NALLELY PATIENT MEDICARE (WNR) MEDICARE (M) PART A May 05, 2018 PART A [id number] [facility] Dougie RIVERA NALLELY PATIENT MEDICARE (WNR) MEDICARE (M) PART B May 05, 2018 PART B [id number] [facility] Dougie RIVERA PATIENT Selected Encounter This section includes the information on record at [place] for the Encounter. Date/Time Encounter Type Encounter Description Reason Provider Source Jan 12, 2025 09:00 AM OFFICE O/P EST LOW 20 MIN PODIATRY ICD-10-CM L60.0 Ingrowing nail OLIMPIA BRIGHT Nancy Encounter Template Text not used by [place] Assessments - Encounter Diagnoses This section includes the primary and secondary diagnoses documented for the Encounter. Date/Time Primary/Secondary Diagnosis Diagnosis Name Provider Source Jan 12, 2025 09:23 AM PRIMARY Ingrowing nail OLIMPIA BRIGHT Jan 12, 2025 09:23 AM SECONDARY Pain in left toe(s) OLIMPIA BRIGHT Jan 12, 2025 09:23 AM SECONDARY Pain in right toe(s) OLIMPIA BRIGHT Jan 12, 2025 09:23 AM SECONDARY Type 2 diabetes mellitus without complications OLIMPIA BRIGHT Plan of Treatment: Future Appointments (+ 6 months) and Future Tests (+/- 45 days) The Plan of Treatment section includes future care activities for the patient from all [place] [facility]. This section includes future appointments and future orders which are active, pending or scheduled. Future Appointments This section includes appointments that were scheduled to occur 6 months from the date of the Encounter, up to a maximum of 20 appointments. The data comes from all [place] treatment facilities. Appointment Date/Time Appointment Type Appointme nt Facility Name Jan 26, 2025 09:30 AM AM[place]ULATORY [place]ICINE [place] [facility] [place] [facility] February 06, 2025 09:00 AM [facility] February 08, 2025 01:00 PM AMBULATORY [place] MEDICINE [place] [facility] [place] [facility] February 13, 2025 01:00 PM [facility] March 01, 2025 12:30 PM AMBULATORY - MEDICINE [facility] Mar 07, 2025 09:00 AM AM[place]ULATORY [place]ICINE [place] [facility] [place] [facility] Mar 09, 2025 08:30 AM AM[place]ULATORY [place]ICINE [place] [facility] [place] [facility] Mar 14, 2025 09:00 AM AMBULATORY [place] MEDICINE [place] [facility] [place] [facility] Mar 14, 2025 10:00 AM AMBULATORY [place] MEDICINE [place] [facility] [place] [facility] Mar 14, 2025 10:15 AM AMBULATORY [place] MEDICINE [place] [facility] [place] [facility] Mar 27, 2025 09:15 AM AMBULATORY - NONE [facility] [place] [facility] Mar 31, 2025 01:00 PM AMBULATORY - MEDICINE [place] [facility] [place] [facility] Apr 13, 2025 09:00 AM AMBULATORY - NONE [facility] Apr 20, 2025 09:00 AM AMBULATORY - NONE [facility] Apr 21, 2025 09:00 AM AMBULATORY - MEDICINE [facility] Apr 21, 2025 09:15 AM AMBULATORY - MEDICINE [place] [facility] [place] [facility] Apr 24, 2025 01:00 PM AMBULATORY [place] MEDICINE [place] [facility] [facility] Apr 27, 2025 09:00 AM AMBULATORY - NONE [facility] May 04, 2025 09:00 AM AMBULATORY - NONE [facility] May 05, 2025 01:30 PM [facility] Lab Results: +/- 30 days of the encounter This section includes the Chemistry and Hematology Lab Results on record with [place] for the patient. Radiology Reports and Pathology Reports are provided separately, in subsequent sections. Lab Results This section contains the Chemistry/Hematology Results that were resulted 30 days before or 30 daysafter the date of the Encounter. Date/Time Source Result Type Result - Unit Interpretation Reference Range Specimen Type Comment February 06, 2025 08:56 AM [place] FERRITIN SERUM Specimen Type: SERUM No comment entered. Ordering Provider: AUSTIN BALDWIN Report Released Date/Time: Mar 16, 2024 11:36 AM Reporting Lab: [address] [address] Performing Lab: [address] [address] FERRITIN 499.1 ng/mL H 21.8-274.7 February 06, 2025 08:56 AM [place] HEMOGLOBIN A1C PANEL BLOOD Specimen T ype: BLOOD Comment: Values obtained from A1C measurements can vary. For atypical A1C assays, a reported value of 7.0 could actually be between 6.72 and 7.28 if measured by a reference method. A reported value of 9.0 could actually be between 8.73 and 9.27. Ref: http://www.ngsp.org/CAPdata.asp Ordering Provider: AUSTIN BALDWIN Report Released Date/Time: Mar 16, 2024 11:36 AM Reporting Lab: [place] [facility] [place] [facility] [address] [facility] [address] Performing Lab: [place] [facility] [place] [address] [address] HEMOGLOBIN A1C 7.2 H 4.0-5.6 February 06, 2025 08:56 AM [place] TSH SERUM Sp ecimen Type: SERUM No comment entered. Ordering Provider: AUSTIN BALDWIN Report Released Date/Time: Mar 16, 2024 11:36 AM Reporting Lab: [place] [facility] [place] [address] [address] Performing Lab: [place] [facility] [place] [address] [address] TSH 4.21 u[IU]/mL 0.35-4.94 February 06, 2025 08:56 AM [place] PSA SERUM Sp ecimen Type: SERUM No comment entered. Ordering Provider: AUSTIN BALDWIN Report Released Date/Time: Mar 16, 2024 11:36 AM Reporting Lab: [place] [facility] [place] [address] [address] Performing Lab: [place] [facility] [place] [address] [address] PSA 0.9 ng/mL 0.0-4.0 February 06, 2025 08:56 AM [place] AMYLASE SERUM Sp ecimen Type: SERUM No comment entered. Ordering Provider: AUSTIN BALDWIN Report Released Date/Time: Mar 16, 2024 11:36 AM Reporting Lab: [facility] [place] [address] [address] Performing Lab: [place] [facility] [place] [address] [address] AMYLASE 125 U/L 25-125 February 06, 2025 08:56 AM [place] LIPASE SERUM Sp ecimen Type: SERUM No comment entered. Ordering Provider: AUSTIN BALDWIN Report Released Date/Time: Mar 16, 2024 11:36 AM Reporting Lab: [place] [facility] [place] [address] [address] Performing Lab: [facility] [address] [facility] [address] LIPASE 50 U/L 0-60 February 06, 2025 08:56 AM [place] MICROALBUMIN CREATININE RATIO PANEL URINE Specimen Type: URINE No comment entered. Ordering Provider: AUSTIN BALDWIN Report Released Date/Time: Mar 16, 2024 11:36 AM Reporting Lab: [address] [address] Performing Lab: [address] [address] MICROALBUMIN/CREATININE RATIO 169.4 mg/g H 0-29.9 MICROALBUMIN,QUANTITATIVE 27.8 mg/dL RR UNAVAIL CREATININE URINE 164.10 mg/dL 63-166 February 06, 2025 08:56 AM [place] CALCIUM SERUM Sp ecimen Type: SERUM No comment entered. Ordering Provider: AUSTIN BALDWIN Report Released Date/Time: Mar 16, 2024 11:36 AM Reporting Lab: [address] [address] Performing Lab: [address] [address] CALCIUM 9.2 mg/dL 8.8-10 February 06, 2025 08:56 AM [place] BASIC METABOLIC PANEL (fasting) SERUM Specimen Type: SERUM No comment entered. Ordering Provider: AUSTIN BALDWIN Report Released Date/Time: Mar 16, 2024 11:36 AM Reporting Lab: [address] [address] Performing Lab: [address] [address] UREA NITROGEN 11 mg/dL 8-26 GLUCOSE 213 mg/dL H 65-100 SODIUM 138 mmol/L 136-145 POTASSIUM 4.3 mmol/L 3.5-5.1 CHLORIDE 101 mmol/L 98-107 CO2 26 meq/L 23-31 CALCIUM 9.2 mg/dL 8.8-10 CREATININE, Serum 1.12 mg/dL 0.72-1.25 eGFR(CKD-EPI 2020) 73 mL/min >60 February 06, 2025 08:56 AM [place] URIC ACID SERUM Sp ecimen Type: SERUM No comment entered. Ordering Provider: AUSTIN BALDWIN Report Released Date/Time: Mar 16, 2024 11:36 AM Reporting Lab: [address] [address] Performing Lab: [address] [address] URIC ACID 4.8 mg/dL 3.7-7.7 February 06, 2025 08:56 AM [place] LIVER FUNCTION SERUM Specimen Type: SERUM No comment entered. Ordering Provider: AUSTIN BALDWIN Report Released Date/Time: Mar 16, 2024 11:36 AM Reporting Lab: [address] [address] Performing Lab: [address] [address] PROTEIN,TOTAL 7.2 g/dL 6.4-8.3 ALBUMIN 4.0 g/dL 3.2-4.6 ALKALINE PHOSPHATASE 35 U/L L 40-150 AST 27 U/L 5-34 ALT 37 U/L 0-55 BILIRUBIN, TOTAL 0.3 mg/dL 0.2-1.2 February 06, 2025 08:56 AM [place] LIPID PANEL FASTING SERUM Specimen Ty pe: SERUM No comment entered. Ordering Provider: AUSTIN BALDWIN Report Released Date/Time: Mar 16, 2024 11:36 AM Reporting Lab: [address] [address] Performing Lab: [address] [address] CHOLESTEROL 229 mg/dL H TRIGLYCERIDE 315 mg/dL H 0-150 LDL calculated Reflex to dLDL mg/dL 0-12 9 CHOL/HDL 6.7 HDL CHOLESTEROL 34 mg/dL L >40 LDL DIRECT 172 mg/dL H 0-159 February 06, 2025 08:56 AM [place] URINALYSIS URINE S pecimen Type: URINE Comment: If Glucose = >500 and Ketones are positive, please alert the Physician. Ordering Provider: AUSTIN BALDWIN Report Released Date/Time: Mar 16, 2024 11:36 AM Reporting Lab: [facility] [address] [address] Performing Lab: [address] [address] UA COLOR Light-Yellow Yellow UA APPEARANCE Clear Clear UA GLUCOSE >1000 mg/dL Negative UA KETONES NEGATIVE mg/dL Negative UA BLOOD NEGATIVE mg/dL Negative UA PROTEIN 50 mg/dL Negative UA NITRITE NEGATIVE mg/dL Negative UA BILIRUBIN NEGATIVE mg/dL Negative UA SPECIFIC GRAVITY 1.022 1.016-1.022 UA pH 7.0 5.0-9.0 UA UROBILINOGEN Normal mg/dL <2.0 UA LEUKOCYTE NEGATIVE Negative February 06, 2025 08:56 AM [place] VITAMIN D (25-OH) SERUM Specimen Type: SERUM No comment entered. Ordering Provider: AUSTNI BALDWIN Report Released Date/Time: Mar 16, 2024 11:36 AM Reporting Lab: [address] [address] Performing Lab: [address] [address] VITAMIN D (25-OH) 42.5 ng/mL 20-50 February 06, 2025 08:56 AM [place] MICROSCOPIC AUTOMATED, URINE URINE Sp ecimen Type: URINE Comment: If Glucose = >500 and Ketones are positive, please alert the Physician. Ordering Provider: AUSTIN BALDWIN Report Released Date/Time: Mar 16, 2024 11:36 AM Reporting Lab: [address] [address] Performing Lab: [address] [address] UA WBC 0-5 /[HPF] 0-5 UA MUCUS FEW /[LPF] Trace UA RBC 0-2 /[HPF] 0-3 February 06, 2025 08:56 AM [place] CBC AND DIFF (AUTO) BLOOD Specimen Ty pe: BLOOD No comment entered. Ordering Provider: AUSTIN BALDWIN Report Released Date/Time: Mar 16, 2024 11:36 AM Reporting Lab: [address] [address] Performing Lab: [address] [address] WBC 8.12 10*3/uL 4.50-11.00 RBC 5.17 10*6/uL 4.23-5.66 HGB 15.4 g/dL 12.8-17 HCT 44.5 39.2-50.4 MCV 86.1 fL 82-99 MCHC 34.6 g/dL 30.8-35.1 PLT 276 10*3/uL 140-360 MPV 10.4 fL 9.2-12.4 RDW-CV 13.0 12.0-16.0 MONO, ABS 0.73 10*3/uL 0.30-1.10 MCH 29.8 pg 26.2-32.6 NEUT % 63.9 43.7-75.8 LYMPH % 22.0 14.0-42.3 MONO % 9.0 5.1-13.7 EOS % 3.2 0.4-6.8 BASO % 0.9 0.1-2.0 NEUT, ABS 5.19 10*3/uL 2.20-7.60 LYMPH, ABS 1.79 10*3/uL 1.00-3.20 EOS, ABS 0.26 10*3/uL 0.03-0.44 BASO, ABS 0.07 10*3/uL 0.01-0.13 IMMATURE GRAN % 1.0 H 0.0-0.7 IMMATURE GRAN, ABS 0.08 10*3/uL H 0.00-0.0 6 NRBC % 0.0 0.0-0.0 NRBC, ABS 0.00 10*3/uL 0.00-0.00 Dec 19, 2024 10:15 AM [place] GLUCOSE, Fingerstick BLOOD Specimen T ype: BLOOD Comment: For GLU FinTest performed by: Christy Robbins For GLU Fin Meter #: [id number] Ordering Provider: SWAPNIL SCHOFIELD Report Released Date/Time: Dec 19, 2024 04:05 PM Reporting Lab: [address] [address] Performing Lab: [address] [address] GLUCOSE, Fingerstick 133 mg/dL H 65-100 Dec 15, 2024 09:34 AM [place] CREATININE (eGFR 2020) SERUM Specimen Type: SERUM No comment entered. Ordering Provider: SWAPNIL SCHOFIELD Report Released Date/Time: Dec 14, 2024 02:29 PM Reporting Lab: [address] [address] Performing Lab: [address] [address] CREATININE, Serum 1.27 mg/dL 0.50-1.40 eGFR(CKD-EPI 2020) 63 mL/min >60 Dec 15, 2024 09:34 AM [place] HEMOGLOBIN A1C PANEL BLOOD Specimen T ype: [...] Dec 14, 2024 02:29 PM Reporting Lab: [address] [address] Performing Lab: [address] [address] HEMOGLOBIN A1C 5.8 H 4.0-5.6 Social History: Smoking Status (Most current) and Tobacco Use (All prior to encounter date) This section includes the most current, and the historical, smoking and tobacco- related health factors from the [place] facility where the Encounter took place. Current Smoking Status This section includes the most current smoking, or tobacco-related health factor, from the [place] facility where the Encounter took place. Date/Time Current Smoking Status Comment Michela seals Dec 16, 2023 10:00 AM [place]-TOBACCO USER EVERY DAY [place] Tobacco Use History This section includes a history of the smoking, or tobacco-related health factors, that were collected on or before the date of the Encounter. The data comes from the [place] facility where the Encounter took place. 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 [place] Dec 16, 2023 10:00 AM VA-TOBACCO USE SCHOOL LEADER YES [place] Dec 16, 2023 10:00 AM VA-TOBACCO USE MED NO [place] Dec 16, 2023 10:00 AM VA-TOBACCO USE MED YES [place] Dec 16, 2023 10:00 AM VA-TOBACCO USE [place] 30 MIN OF WAKEUP [place] Dec 16, 2023 10:00 AM VA-TOBACCO USER EVERY DAY [place] Jan 13, 2023 02:00 PM VA-TOBACCO USE 1 T O < 5 YEARS [place] Jan 13, 2023 02:00 PM VA-TOBACCO USE ADVICE [place] Jan 13, 2023 02:00 PM 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 [place] Jan 13, 2023 02:00 PM VA-TOBACCO USE MED NO [place] Jan 13, 2023 02:00 PM VA-TOBACCO USE [place] 30 MIN OF WAKEUP [place] Jan 13, 2023 02:00 PM VA-TOBACCO USER EVERY DAY [place] Jul 03, 2022 09:00 AM VA-TOBACCO FORMER USER [place] Jul 03, 2022 09:00 AM VA-TOBACCO QUIT 5 TO < 15 YRS [place] Jul 04, 2021 09:00 AM VA-TOBACCO USE > 1 5 LESS THAN 30 YEARS [place] Jul 04, 2021 09:00 AM VA-TOBACCO USE ADVICE [place] Jul 04, 2021 09:00 AM 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 [place] Jul 04, 2021 09:00 AM VA-TOBACCO USE MED NO [place] Jul 04, 2021 09:00 AM VA-TOBACCO USE [place] 30 MIN OF WAKEUP [facility] 30, 2021 09:00 AM VA-TOBACCO USER SOME DAYS [place] Apr 30, 2020 10:39 AM VA-TOBACCO FORMER USER [place] Apr 30, 2020 10:39 AM VA-TOBACCO QUIT 5 TO < 15 YRS [place] Dec 21, 2018 03:15 PM VA-TOBACCO FORMER USER [place] Dec 21, 2018 03:15 PM VA-TOBACCO QUIT 1 TO < 5 YRS [place] Nov 24, 2017 09:54 AM CURRENT SMOKER cigarets [place] Nov 24, 2017 09:54 AM V1-PT READY TO SHARAN T TOBACCO USE [place] Mar 25, 2017 01:57 PM CURRENT SMOKER down to 10 cigarettes daily [place] Mar 25, 2017 01:57 PM V1-PT DECLINES TOB ACCO CESSATION MEDS [place] Mar 25, 2017 01:57 PM V1-PT READY TO SHARAN T TOBACCO USE [place] March 04, 2017 02:38 PM CURRENT SMOKER advise stopm [place] Jul 22, 2016 09:29 AM V1-PT NOT INTEREST ED IN QUIT TOBACCO USE [place] Nov 21, 2015 09:21 AM CURRENT SMOKER half a pack a day [place] Nov 21, 2015 09:21 AM V1-PT NOT INTEREST ED IN QUIT TOBACCO USE [place] Nov 23, 2014 08:51 AM CURRENT SMOKER [facility] Nov 23, 2014 08:51 AM V1-PT READY TO SHARAN T TOBACCO USE [place] Dec 16, 2013 02:19 PM CURRENT SMOKER 3/4 pack a day [place] Dec 16, 2013 02:19 PM V1-PT THINKING ABO UT QUIT TOBACCO USE [place] Advance Directives: All historical and current Section Date Range: From patient's date of to the date document was created. This section includes ALL of a patient's completed or amended [place] Advance and Rescinded Directives. The entries below indicate that a directive exists for the patient, but an actual copy is not included with this document. The data comes from all [place] facilities. Date Advance Directives Provider Source Dec 12, 2014 ADVANCE DIRECTIVE KATRIN GREEN Encounter Notes: All associated encounter notes This section contains the clinical notes associated to the Encounter. Date/Time Encounter Note(s) Provider Source Jan 12, 2025 07:36 AM PODIATRY NOTE: LOCAL TITLE: PODIATRY NOTE STANDARD TITLE: PODIATRY NOTE DATE OF NOTE: JAN 12, 2025@07:36 ENTRY DATE: JAN 12, 2025@07:36:30 AUTHOR: OLIMPIA BRIGHT EXP COSIGNER: URGENCY: STATUS: COMPLETED NOTE: HAS RECEIVED BOTH COVID VACCINE DOSES + 2 BOOSTERS AT [facility] *LAST SEEN FOR TREATMENT: 09/12/2024 S: Pt. is a 64 yo alert [place] CAUC MALE who presents for CONTINUED podiatric examination & CARE for treatment of a presenting complaint of painful ingrown toenails. Patient has TYPE II DM & is at risk of injury with self or other non-professional care. Patient has been referred by: EDWIGE PETERSON Location of symptoms are: NAILS 1-2-3-4-5 BILATERAL: especially 1 & 2 bilateral. Onset of symptoms has been several months due to this being a recent condition that has been exacerbating over the past few weeks. Duration of symptoms is intermittently with periods of exacerbation and remission. Description of symptoms is of an aching nature. Contributing factors are: shoes and increased activity AND SELF CARE. PMH: Active problems - Computerized Problem List is the source for the following: *NOTE: REVIEWED ABOVE NOTING Non-contributory TO THE CC *NOTE: REVIEWED ABOVE NOTING NO CHANGES SINCE PREVIOUS VISIT *NOTE: PLEASE SEE PROBLEM LIST TEMPLATE FOR COMPLETE LIST NEEDED. Family History: Non-contributory Social History: N/A *NOTE: DENIES ANY RECENT CHANGES IN MEDS UPON QUESTIONING TODAY-SEE RECONCILIATION PERFORMED THIS DATE BELOW TOBACCO USE =1/2 PACK PER DAY Allergies:CODEINE, OXYCODONE Previous Surgery/Hospitalization: N/A TO THE CC . *NOTE: A1C= 5.8 (LAST TAKEN: 12/2024) FBS= DNP RISK =1 HEIGHT:218 lb [98.88 kg] (03/10/2022 10:48) WEIGHT:68 in [172.7 cm] (03/10/2022 10:48) REVIEW OF SYSTEMS: DEFERRED BEING NON-CONTRIBUTORY TO THE CC & I HAVE REVIEWED THE PCP NOTES & PMH WELL. O: DERMATOLOGICAL: Exam reveals skin color & text to be WNL. Temp is diminished warm to cool proximal to distal. There is normal distribution of hair noted. Nails are WNL & incurvated and elongated and in need of attention. The affected nails are 9-8-9-4-5bilat. There are no superficial painful hyperkeratotic lesions noted at this time. There are no rashes, ulcers, indurations or nodules noted. VASCULAR: Exam reveals DP & PT pulses to be +2 equal & symmetrical bilateral. CFT is >3 sec x 10. There are no superficial varices noted and there is no edema noted. MUSCULOSKELETAL: Exam reveals muscle strength and tone to be equal & symmetrical bilaterally & WNL for an individual of this age and present physical-medical condition. There is pain free ROM at all joints distal to and including the ankle. THERE ARE NO APPARENT BONY ABNORMALITIES NOTED AT THIS TIME. NEUROLOGICAL: Exam reveals S/D, vibratory, light touch & proprioception sensations to be equal & symmetrical bilaterally & WNL for an individual of this age and present physical-medical status. Protective sensation utilizing a Hamill-Radha device is 10/10 bilat. *NOTE: *YEARLY COMPLETE PAVE EXAM PERFORMED TODAY - SEE BELOW. BIOMECHANICAL: Exam is deferred at this time as BEING non-contributory to the cc . A: Clinical Impression is painful onychocryptic nails(1-2-3-4-5 bilat) in the presence of DM WITH pain & NO PVD AT THIS TIME. P: Treatment consists of TRIMMING-reduction of AL NAILS nails via manual & electric means with excision of the offending nail borders and thinning of the nail plates to the point of imminent bleeding. All care rendered without complications & the patient is progressing well after podiatric care this date and will be scheduled for periodic podiatric care in an attempt to prevent future complications due to the underlying edical conditions. Treatment by a non-professional could be extremely hazardous to the patient's wellbeing due to the underlying medical conditions. RTC: 24 Weeks( 09/12 @ 9AM) *DISCUSSED NEW PROTOCOLS AND CALLED FERN FOR RESCHEDULING TODAY I DISCUSSED THE FINDINGS & PLAN WITH PATIENT (UNCHANGED SINCE PREVIOUS VISIT) & PATIENT AGREES AND UNDERSTANDS PLAN *DISCUSSED A VARIETY OF TOPICS ESPECIALLY APPROPRIATE FUTURE FOOT CARE-NOT IN NEED OF A MIRROR AT THIS TIME *REVIEWED HOME FOOT CARE FEET ARE IN EXCELLENT CONDITION AND I PROVIDED HIM WITH WRITTEN RECOMMENDATIONS FOR FOOT CARE TO BE REVIEWED AT HOME (FOOT CARE TIPS). DISCUSSED THE FACT THAT HE IS INTERESTED IN AN AMWAY TOUR-[place] SIMILAR TO VIKING BUT GOING TO [facility] FOR WINE TASTING Medication Reconciliation: PERFORMED TODAY - SEE BELOW. Outpatient: Has the patient been taking medications as documented in the EMLR? YES: The patient has been taking medications as documented in the EMLR. Essential Medication List for Review used to complete this medication reconciliation. INCLUDED IN THIS LIST: Alphabetical list of active outpatient prescriptions dispensed from this [facility] (local) and dispensed from another [place] or [place] facility (remote) as well as [...] JLV. Allergies/ADRs (Tool #5) FACILITY ALLERGY/ADR -------- [facility] [place] [facility] [place] [facility] [place] [facility] OXYCODONE [facility] OXYCODONE Med [facility] (Tool #1) INCLUDED IN THIS LIST: Alphabetical [...] display of VA prescriptions dispensed from another VA or DoD facility (remote) is limited to active outpatient prescription entries matched to National Drug File at the originating site and may not include some items such as investigational drugs, compounds, etc. NOT INCLUDED IN THIS LIST: Medications self-entered by the patient into personal health records (i.e. [employer]) are NOT included in this list. Non-VA medications documented outside this [place], remote inpatient orders (regardless of status) and remote clinic medications are NOT included in this list. The patient and provider must always discuss medications the patient is taking, regardless of where the medication was dispensed or obtained. OUTPT ALBUTEROL 90MCG (CFC-F) 200D ORAL INHL (Status = Discontinued) INHALE 1 PUFF BY MOUTH FOUR TIMES DAILY NEEDED FOR BRONCHOSPASM Rx# [id number] Last Released: 12/21/23 Qty/Days Supply: 11/03 Rx Expiration Date: 11/04/24 Refills Remainin Indication: FOR BRONCHOSPASM OUTPT ALBUTEROL 90MCG (CFC-F) 200D ORAL INHL (Status = Active) INHALE 1 PUFF BY MOUTH FOUR TIMES DAILY NEEDED FOR BRONCHOSPASM Rx# [id number] Last Released: 11/23/24 Qty/Days Supply: 11/03 Rx Expiration Date: 11/16/25 Refills Remainin Indication: FOR BRONCHOSPASM OUTPT AMLODIPINE BESYLATE 10MG TAB (Status = Active) TAKE ONE TABLET BY MOUTH ONCE DAILY FOR BLOOD PRESSURE/HEART, DO NOT TAKE WITH GRAPEFRUIT JUICE Rx# [id number] Last Released: 09/22/24 Qty/Days Supply: Rx Expiration [...] ONCE DAILY FOR VITAMIN D DEFICIENCY Rx# [id number] Last Released: 10/28/24 Qty/Days Supply: Rx Expiration Date: 01/05/25 Refills Remainin Indication: FOR VITAMIN D DEFICIENCY OUTPT CHOLECALCIF 50MCG (D3-2,000UNIT) TAB (Status = Active) TAKE ONE TABLET BY MOUTH ONCE DAILY FOR VITAMIN D DEFICIENCY Rx# [id number] Last Released: 01/09/25 Qty/Days Supply: Rx Expiration Date: 11/16/25 Refills Remainin Indication: FOR VITAMIN D DEFICIENCY Non-VA CLONAZEPAM 1MG TAB TAKE ONE TABLET BY MOUTH TWICE DAILY Medication prescribed by Non-VA provider. or tid OUTPT FENOFIBRATE 145MG TAB (Status = Active) TAKE ONE TABLET BY MOUTH ONCE DAILY Rx# [id number] Last Released: 09/08/24 Qty/Days Supply: 90 Rx Expiration Date: 03/17/25 Refills Remainin Indication: FOR HIGH CHOLESTEROL OUTPT FERROUS GLUCONATE 324MG TAB (Status = Active) TAKE ONE TABLET BY MOUTH EVERY OTHER DAY TO SUPPLEMENT IRON Rx# [id number] Last Released: 10/20/24 Qty/Days Supply: 100 Rx [...] FOR EXCESSIVE PRODUCTION OF STOMACH ACID Rx# [id number] Last Released: 12/16/24 Qty/Days Supply: 180 Rx Expiration Date: 03/17/25 Refills Remainin Indication: FOR EXCESSIVE PRODUCTION OF STOMACH ACID Non-VA ONDANSETRON HCL 4MG TAB TAKE ONE TABLET BY MOUTH DIRECVTED Medication prescribed by Non-VA provider. when has panic attacks OUTPT SEMAGLUTIDE 1MG/0.75ML INJ PEN 3ML (Status = Discontinued) INJECT 1MG SUBCUTANEOUSLY ONCE A WEEK FOR TYPE 2 DIABETES MELLITUS Rx# [id number] Last Released: 10/18/24 Qty/Days Supply: Rx Expiration Date: 09/21/25 Refills Remainin Indication: FOR TYPE 2 DIABETES MELLITUS OUTPT SEMAGLUTIDE 1MG/0.75ML INJ PEN 3ML (Status = Active) INJECT 1MG SUBCUTANEOUSLY ONCE A WEEK FOR TYPE 2 DIABETES MELLITUS Rx# [id number] Last Released: 12/21/24 Qty/Days Supply: Rx Expiration Date: 11/16/25 Refills Remainin Indication: FOR TYPE 2 DIABETES MELLITUS Non-VA TRAZODONE HCL 100MG TAB TAKE ONE-HALF TABLET BY MOUTH AT BEDTIME OUTPT VARENICLINE 1MG TAB (Status = Discontinued) TAKE ONE TABLET BY MOUTH TWICE DAILY FOR SMOKING CESSATION Rx# [id number] Last Released: 09/22/24 Qty/Days Supply: 6030 Rx Expiration Date: 07/30/25 Refills Remainin Indication: FOR SMOKING CESSATION Non-VA VENLAFAXINE HCL 150MG 24HR SA CAP TAKE 1 CAPSULE BY MOUTH ONCE DAILY Non-VA medication not recommended by [facility] provider. SUPPLIES OUTPT ACCU-CHEK GUIDE (GLUCOSE) TEST STRIP (Status = Discontinued) USE 1 STRIP TO TEST BLOOD SUGARS DIRECTED Rx# [id number] Last Released: 02/18/24 Qty/Days Supply: 50/180 Rx Expiration Date: 11/04/24 Refills Remainin OUTPT ACCU-CHEK GUIDE (GLUCOSE) TEST STRIP (Status = Active) USE 1 STRIP TO TEST BLOOD SUGARS DIRECTED Rx# [id number] Last Released: 11/23/24 Qty/Days Supply: 50/180 Rx Expiration Date: 11/16/25 Refills Remainin /karlene/ OLIMPIA BRIGHT DPM HOME DAY CARE PROVIDER Signed: 01/12/2025 09:24 OLIMPIA BRIGHT [place]
--- OUTSIDE RECORDS SUMMARY | 2025-02-08 09:00 | XMS_ITS | Encounter Summary ---
Author Name [facility] [facility] [place] [facility] [place] Address [address] [place] [address] Care Team Providers Care Carburetor Specialist Name Role Phone AUSTIN BALDWIN Primary [...] PATRICIO ERICKSON Nov 14, 2024 PATRICIO MULLIGAN [id number] NICOLE,A NALLELY PATIENT [facility] MEDICAID MEDICAID MEDIC AID Oct 05, 2016 MEDICAI D [id number] NICOLE,A NALLELY PATIENT MEDICAID MEDICAID [facility] STAND BEATRICE Oct 05, 2014 MEDICAI D [id number] NICOLE,A NALLELY PATIENT MEDICARE (WNR) MEDICARE (M) PART A May 05, 2018 PART A [id number] Dougie RIVERA NALLELY PATIENT MEDICARE (WNR) MEDICARE (M) PART B May 05, 2018 PART B [id number] Dougie RIVERA NALLELY PATIENT Selected Encounter This section includes the information on record at [place] for the Encounter. Date/Time Encounter Type Encounter Description Reason Provider Source February 08, 2025 01:00 PM ACUP 1/> W/O ESTIM EA ADD 15 [facility] TREATMENT ICD-10-CM F41.9 Anxiety disorder, unspecified GAUNYA,NAVEED PHER M IHE Encounter Template Text not used by [place] Assessments - Encounter Diagnoses This section includes the primary and secondary diagnoses documented for the Encounter. Date/Time Primary/Secondary Diagnosis Diagnosis Name Provider Source February 08, 2025 04:04 PM PRIMARY Anxiety disorder, unspecified GAUNYA,NAVEED PHER M [place] [facility] [place] [facility] February 08, 2025 04:04 PM SECONDARY Cervicalgia ARCELIAUNYANAVEED PHER M [place] [facility] [place] [facility] February 08, 2025 04:04 PM SECONDARY Low back pain, unspecified GAUNYA,NAVEED PHER M [place] [facility] [place] [facility] February 08, 2025 04:04 PM SECONDARY Pain in left hand ARCELIAUNYA,NAVEED PHER M [place] [facility] [place] [facility] Plan of Treatment: Future Appointments (+ 6 months) and Future Tests (+/- 45 days) The Plan of Treatment section includes future care activities for the [facility] [place] [facility] This section includes future appointments and future orders which are active, pending or scheduled. Future Appointments This section includes appointments that were scheduled to occur 6 months from the date of the Encounter, up to a maximum of 20 appointments. The data comes from all [place] treatment facilities. Appointment Date/Time Appointment Type Appointme nt Facility Name February 13, 2025 01:00 PM AMBULATORY - MEDICINE [facility] March 01, 2025 12:30 PM AMBULATORY - MEDICINE [facility] Mar 07, 2025 09:00 AM AM[place]ULATORY [place]ICINE [place] [facility] [place] [facility] Mar 09, 2025 08:30 AM AM[place]ATORY [place] [facility] [place] [facility] Mar 14, 2025 09:00 AM AM[facility]ULATORY [place]ICINE [place] [facility] [place] [facility] Mar 14, 2025 10:00 AM AM[place]ULATORY [place]INE [place] [facility] [place] [facility] Mar 14, 2025 10:15 AM AMBULATORY [place]ICINE [place] [facility] [place] [facility] Mar 27, 2025 09:15 AM AMBULATORY - NONE [facility] [place] [facility] Mar 31, 2025 01:00 PM AMBULATORY - [place]ICINE [place] [facility] [place] [facility] Apr 13, 2025 09:00 AM AMBULATORY - NONE [facility] Apr 20, 2025 09:00 AM AMBULATORY - NONE [facility] Apr 21, 2025 09:00 AM AMBULATORY - MEDICINE [facility] Apr 21, 2025 09:15 AM AM[place] [facility] [place] [facility] Apr 24, 2025 01:00 PM AM[place]ULATORY [place] [facility] [place] [facility] Apr 27, 2025 09:00 AM AMBULATORY - NONE [facility] May 04, 2025 09:00 AM AMBULATORY - NONE [facility] May 05, 2025 01:30 PM AMBULATORY - MEDICINE [facility] May 11, 2025 09:00 AM AMBULATORY - NONE [facility] May 18, 2025 09:00 AM AMBULATORY - MEDICINE [facility] May 18, 2025 09:05 AM AMBULATORY - NONE [facility] Active, Pending, and Scheduled Orders This section [...] Test Type Test Details Facility Name Mar 14, 2025 10:24 AM Consult Order COMMUNITY CARE-RETINAL SPECIALIST Cons [employer] Sales Engineer's Choice [facility] Lab Results: +/- 30 days of [...] Unit Interpretation Reference Range Specimen Type Comment March 01, 2025 11:50 AM [facility] CYSTATIN C CREATININE EGFR PANEL (WHV) SERUM Specimen Type: SERUM No comment entered. Ordering Provider: TAMI SANDERS Report Released Date/Time: February 09, 2025 07:59 AM Reporting Lab: [facility] [address] Performing Lab: [facility]ITAL[facility] [address] [address] eGFR(CREAT-CYSTATIN C) 66 mL/min >=60 CREATININE,SERUM(WHV) 1.13 mg/dL 0.5-1.5 CYSTATIN C (WHV) 1.24 mg/L H 0.51-1.05 March 01, 2025 11:49 AM [facility] MICROALBUMIN CREATININE RATIO PANEL URINE Spe cimen Type: URINE No comment entered. Ordering Provider: ALFREDO SANDERS Report Released Date/Time: Oct 18, 2024 09:03 AM Reporting Lab: [address] [address] Performing Lab: [facility] [address] MICROALBUMIN/CREATININE RATIO 57.0 mg/g H 0-29.9 MICROALBUMIN,QUANTITATIVE 5.2 mg/dL RR U NAVAIL CREATININE URINE 91.26 mg/dL 63-166 March 01, 2025 11:49 AM [facility] FERRITIN SERUM Specimen Type: SERUM No comment entered. Ordering Provider: ALFREDO SANDERS Report Released Date/Time: Oct 18, 2024 09:03 AM Reporting Lab: [facility] [address] Performing Lab: [facility] [address] FERRITIN 140.5 ng/mL 21.8-274.7 March 01, 2025 11:49 AM [facility] BASIC METABOLIC PANEL (non-fasting) SERUM Spe cimen Type: SERUM No comment entered. Ordering Provider: ALFREDO SANDERS Report Released Date/Time: Oct 18, 2024 09:03 AM Reporting Lab: [facility] [place] [address] Performing Lab: [address] [address] UREA NITROGEN 11 mg/dL 8-26 GLUCOSE 151 mg/dL H 65-100 SODIUM 136 mmol/L 136-145 POTASSIUM 4.4 mmol/L 3.5-5.1 CHLORIDE 102 mmol/L 98-107 CO2 25 meq/L 23-31 CALCIUM 8.7 mg/dL L 8.8-10 CREATININE, Serum 1.18 mg/dL 0.72-1.25 eGFR(CKD-EPI 2020) 69 mL/min >60 March 01, 2025 11:49 AM [facility] CBC BLOOD Specimen Type: BLOOD No comment entered. Ordering Provider: ALFREDO SANDERS Report Released Date/Time: Oct 18, 2024 09:03 AM Reporting Lab: [address] [address] Performing Lab: [address] [address] WBC 9.50 10*3/uL 4.50-11.00 RBC 4.98 10*6/uL 4.23-5.66 HGB 14.4 g/dL 12.8-17 HCT 43.4 39.2-50.4 MCV 87.1 fL 82-99 MCHC 33.2 g/dL 30.8-35.1 PLT 288 10*3/uL 140-360 MPV 10.9 fL 9.2-12.4 RDW-CV 13.1 12.0-16.0 MCH 28.9 pg 26.2-32.6 March 01, 2025 11:49 AM [facility] IRON & TIBC PANEL SERUM Specimen Type: SERUM No comment entered. Ordering Provider: ALFREDO SANDERS Report Released Date/Time: Oct 18, 2024 09:03 AM Reporting Lab: [address] [address] Performing Lab: [address] [address] TIBC 383 ug/dL 204-475 IRON 91 ug/dL 65-175 Transferrin Saturation 23.8 15-45 Transferrin (TRF) 290 mg/dL 180-382 February 06, 2025 08:56 AM [facility] FERRITIN SERUM Sp ecimen Type: SERUM No comment entered. Ordering Provider: AUSTIN BALDWIN Report Released Date/Time: Mar 16, 2024 11:36 AM Reporting Lab: [facility] [address] [address] Performing Lab: [facility] [address] FERRITIN 499.1 ng/mL H 21.8-274.7 February 06, 2025 08:56 AM [facility] HEMOGLOBIN A1C PANEL BLOOD Specimen T ype: [...] Mar 16, 2024 11:36 AM Reporting Lab: [facility] [address] [facility] [address] Performing Lab: [facility] [address] HEMOGLOBIN A1C 7.2 H 4.0-5.6 February 06, 2025 08:56 AM [facility] TSH SERUM Sp ecimen Type: SERUM No comment entered. Ordering Provider: AUSTIN BALDWIN Report Released Date/Time: Mar 16, 2024 11:36 AM Reporting Lab: [facility] [address] Performing Lab: [facility] [address] TSH 4.21 u[IU]/mL 0.35-4.94 February 06, 2025 08:56 AM [facility] PSA SERUM Sp ecimen Type: SERUM No comment entered. Ordering Provider: AUSTIN BALDWIN Report Released Date/Time: Mar 16, 2024 11:36 AM Reporting Lab: [facility] [place] [facility] [address] [facility] [address] Performing Lab: [facility] [place] [facility] [address] [facility] [address] PSA 0.9 ng/mL 0.0-4.0 February 06, 2025 08:56 AM [facility] LIPASE SERUM Sp ecimen Type: SERUM No comment entered. Ordering Provider: AUSTIN BALDWIN Report Released Date/Time: Mar 16, 2024 11:36 AM Reporting Lab: [place] [facility] [facility] [address] [facility] [address] Performing Lab: [facility] [place] [address] [address] LIPASE 50 U/L 0-60 February 06, 2025 08:56 AM [facility] AMYLASE SERUM Sp ecimen Type: SERUM No comment entered. Ordering Provider: AUSTIN BALDWIN Report Released Date/Time: Mar 16, 2024 11:36 AM Reporting Lab: [facility] [place] [address] [address] Performing Lab: [facility] [place] [address] [address] AMYLASE 125 U/L 25-125 February 06, 2025 08:56 AM [facility] MICROALBUMIN CREATININE RATIO PANEL URINE Specimen Type: URINE No comment entered. Ordering Provider: AUSTIN BALDWIN Report Released Date/Time: Mar 16, 2024 11:36 AM Reporting Lab: [facility] [place] [address] [address] Performing Lab: [facility] [place] [address] [address] MICROALBUMIN/CREATININE RATIO 169.4 mg/g H 0-29.9 MICROALBUMIN,QUANTITATIVE 27.8 mg/dL RR UNAVAIL CREATININE URINE 164.10 mg/dL 63-166 February 06, 2025 08:56 AM [facility] URINALYSIS URINE S pecimen Type: URINE Comment: If Glucose = >500 and Ketones are positive, please alert the Physician. Ordering Provider: AUSTIN BALDWIN Report Released Date/Time: Mar 16, 2024 11:36 AM Reporting Lab: [place] [facility] [place] [address] [address] Performing Lab: [address] [address] UA COLOR Light-Yellow Yellow UA APPEARANCE Clear Clear UA GLUCOSE >1000 mg/dL Negative UA KETONES NEGATIVE mg/dL Negative UA BLOOD NEGATIVE mg/dL Negative UA PROTEIN 50 mg/dL Negative UA NITRITE NEGATIVE mg/dL Negative UA BILIRUBIN NEGATIVE mg/dL Negative UA SPECIFIC GRAVITY 1.022 1.016-1.022 UA pH 7.0 5.0-9.0 UA UROBILINOGEN Normal mg/dL <2.0 UA LEUKOCYTE NEGATIVE Negative February 06, 2025 08:56 AM [facility] BASIC METABOLIC PANEL (fasting) SERUM Specimen Type: SERUM No comment entered. Ordering Provider: AUSTIN BALDWIN Report Released Date/Time: Mar 16, 2024 11:36 AM Reporting Lab: [address] [address] Performing Lab: [address] [address] UREA NITROGEN 11 mg/dL 8-26 GLUCOSE 213 mg/dL H 65-100 SODIUM 138 mmol/L 136-145 POTASSIUM 4.3 mmol/L 3.5-5.1 CHLORIDE 101 mmol/L 98-107 CO2 26 meq/L 23-31 CALCIUM 9.2 mg/dL 8.8-10 CREATININE, Serum 1.12 mg/dL 0.72-1.25 eGFR(CKD-EPI 2020) 73 mL/min >60 February 06, 2025 08:56 AM [facility] LIVER FUNCTION SERUM Specimen Type: SERUM No comment entered. Ordering Provider: AUSTIN BALDWIN Report Released Date/Time: Mar 16, 2024 11:36 AM Reporting Lab: [address] [address] Performing Lab: [address] [address] PROTEIN,TOTAL 7.2 g/dL 6.4-8.3 ALBUMIN 4.0 g/dL 3.2-4.6 ALKALINE PHOSPHATASE 35 U/L L 40-150 AST 27 U/L 5-34 ALT 37 U/L 0-55 BILIRUBIN, TOTAL 0.3 mg/dL 0.2-1.2 February 06, 2025 08:56 AM [facility] CALCIUM SERUM Sp ecimen Type: SERUM No comment entered. Ordering Provider: AUSTIN BALDWIN Report Released Date/Time: Mar 16, 2024 11:36 AM Reporting Lab: [facility] [address] [facility] [address] Performing Lab: [facility] [address] [address] CALCIUM 9.2 mg/dL 8.8-10 February 06, 2025 08:56 AM [facility] LIPID PANEL FASTING SERUM Specimen Ty pe: SERUM No comment entered. Ordering Provider: AUSTIN BALDWIN Report Released Date/Time: Mar 16, 2024 11:36 AM Reporting Lab: [facility] [address] [facility] [address] Performing Lab: [facility] [address] CHOLESTEROL 229 mg/dL H TRIGLYCERIDE 315 mg/dL H 0-150 LDL calculated Reflex to dLDL mg/dL 0-12 9 CHOL/HDL 6.7 HDL CHOLESTEROL 34 mg/dL L >40 LDL DIRECT 172 mg/dL H 0-159 February 06, 2025 08:56 AM [facility] URIC ACID SERUM Sp ecimen Type: SERUM No comment entered. Ordering Provider: AUSTIN BALDWIN Report Released Date/Time: Mar 16, 2024 11:36 AM Reporting Lab: [place] [facility] [address] [facility] [address] Performing Lab: [place] [facility] [address] [address] URIC ACID 4.8 mg/dL 3.7-7.7 February 06, 2025 08:56 AM [facility] VITAMIN D (25-OH) SERUM Specimen Type: SERUM No comment entered. Ordering Provider: AUSTIN BALDWIN Report Released Date/Time: Mar 16, 2024 11:36 AM Reporting Lab: [place] [facility] [address] [facility] [address] Performing Lab: [facility] [address] VITAMIN D (25-OH) 42.5 ng/mL 20-50 February 06, 2025 08:56 AM [facility] MICROSCOPIC AUTOMATED, URINE URINE Sp ecimen Type: URINE Comment: If Glucose = >500 and Ketones are positive, please alert the Physician. Ordering Provider: AUSTIN BALDWIN Report Released Date/Time: Mar 16, 2024 11:36 AM Reporting Lab: [facility] [address] [facility] [address] Performing Lab: [address] [address] UA WBC 0-5 /[HPF] 0-5 UA MUCUS FEW /[LPF] Trace UA RBC 0-2 /[HPF] 0-3 February 06, 2025 08:56 AM [facility] CBC AND DIFF (AUTO) BLOOD Specimen Ty pe: BLOOD No comment entered. Ordering Provider: AUSTIN BALDWIN Report Released Date/Time: Mar 16, 2024 11:36 AM Reporting Lab: [address] [address] Performing Lab: [address] [address] WBC 8.12 10*3/uL 4.50-11.00 RBC 5.17 10*6/uL [...] 0.0 0.0-0.0 NRBC, ABS 0.00 10*3/uL 0.00-0.00 Advance Directives: All historical and current Section [...] Encounter. Date/Time Encounter Note(s) Provider Source February 08, 2025 03:58 PM ACUPUNCTURE NOTE: LOCAL TITLE: ACUPUNCTURE TREATMENT STANDARD TITLE: ACUPUNCTURE NOTE DATE OF NOTE: FEBRUARY 08, 2025@15:58 ENTRY DATE: FEBRUARY 08, 2025@15:58:50 AUTHOR: JEFFERY ALFARO EXP COSIGNER: URGENCY: STATUS: [...] Colonoscopy normal 799.9 04/10/2015 AUSTIN BALDWIN Date February CC / HPI - presents with chronic nausea and anxiety. has stage III kidney disease and which causes a cascade of effects including nausea and dehydration. states that he has attacks where he will have nausea dizziness and sweating and feel lightheaded. [place] states in November he was hospitalized 4 [...] reports feeling well rested in the morning. [place] states appetite is good though he has to watch what he eats. He is trying to lose weight but is finding it difficult. [place] states digestion is generally good. No history of acid reflux or other issues. [place] states bowel movements are normal and unremarkable. Urination: states that he can often have urgency to urinate. He reports that several times he has not made it to the bathroom in time. RESPONSE TO PREVIOUS TREATMENT. [place] reports that he was in [place] for 10 days visiting family and he took a fall landing on his left hand and wrist. states that his wrist is sore and he did tweak his low back on the right side. also has some tenderness and tightness on the right side of his neck. 's current pain level is 5-6/10. _ OBJECTIVE General: . Patient in no [...] ]Pyonex Needle: remove prior to bathing per curriculum development manager INFORMED CONSENT: Oral Consent obtained on February [...] ]Torso: [ ]Hip / Glute Area: [X] LUE: LK, DB, ZB, SI 4, LI 5, FREDRICK 9 [X] RUE: Dsouza Tze, Dsouza Hsien [X] LLE: LR 4.2, LR 4.5, LR 4.8, LR 5, SP 5.5, SP 6, KD 7 [X] RLE: UB 65, GB 41, GB 40, GB 34 [ ]Other therapies: [ ]Cupping: [ ]Cold Laser [ ]Peizo Pen: [ ]External Qigong: [ ]TDP Lamp: [ ]Tui Na: [ ]Guasha: [ ]Nutrition Counseling: Set 2 TIME SPENT: 15 Minutes Position:[X]Prone [ ]Supine [ ]Left Side [ ]Right Side [ ]Seated Chair [ ] Massage Chair Points used: [X]Ear:[ ]Left [ ]Right [X]Bilateral [X]BFA Protocol, [ ][place] Protocol, [ ][place], Point [place], Sympathetic [ ] Ear: [ ]Castillo Men, [ ]Point Zero, [ ]Sympathetic [X]Ear Other: Standard needles not retained. [ ]Head: [ ]Neck: [ ]Torso: [ ]Hip / Glute Area: [ ]LUE: [ ]RUE: [ ]LLE: [ ]RLE: The procedures were performed and needles removed without complication. Treatment Response: [X]nominal / [ ]negative / [ ]aborted due to [ ]F/U PRN self-schedule upon unresolving re-aggravation or with degrading pain control An RTC order will be necessary if patient is seeking self-schedule beyond one year; If beyond three years, a new consult is required /karlene/ JEFFERY ALFARO LA.C, DIPL.AC ELECTROLOGIST Signed: 02/08/2025 16:04 JEFFERY ALFARO [facility]
--- OUTSIDE RECORDS SUMMARY | 2025-02-13 09:00 | XMS_ITS | Encounter Summary ---
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 Name Role Phone AUSTIN BALDWIN Primary [facility] Insurance Providers: All historical [...] PATRICIO ERICKSON Nov 14, 2024 PATRICIO MULLIGAN [id number] Dougie RIVERA PATIENT [facility] MEDICAID MEDICAID MEDIC AID Oct 05, 2016 MEDICAI D [id number] NICOLE,A NALLELY PATIENT MEDICAID MEDICAID [facility] STAND BEATRICE Oct 05, 2014 MEDICAI D [id number] Dougie RIVERA NALLELY PATIENT MEDICARE (WNR) MEDICARE (M) PART A May 05, 2018 PART A [id number] [facility] Dougie RIVERA NALLELY PATIENT MEDICARE (WNR) MEDICARE (M) PART B May 05, 2018 PART B [id number] [facility] Dougie RIVERA PATIENT Selected Encounter This section includes the information on record at MD for the Encounter. Date/Time Encounter Type Encounter Description Reason Provider Source February 13, 2025 01:00 PM MTMS BY ANJALI SNEED 15 MIN CLINICAL PHARMACY ICD-10-CM E11.9 Type 2 diabetes mellitus without complications SWPANIL NEWMAN Nancy Encounter Template Text not used by MD Assessments - Encounter Diagnoses This section includes the primary and secondary diagnoses documented for the Encounter. Date/Time Primary/Secondary Diagnosis Diagnosis Name Provider Source February 13, 2025 01:16 PM PRIMARY Type 2 diabetes mellitus without complications SWAPNIL NEWMAN [facility] Plan of Treatment: Future Appointments (+ 6 months) and Future Tests (+/- 45 days) The Plan of Treatment section includes future care activities for the patient [facility] This section includes future appointments and future orders which are active, pending or scheduled. Future Appointments This section includes appointments that were scheduled to occur 6 months from the date of the Encounter, up to a maximum of 20 appointments. The data comes from all MD treatment facilities. Appointment Date/Time Appointment Type Appointme nt Facility Name March 01, 2025 12:30 PM AMBULATORY - MEDICINE [facility] Mar 07, 2025 09:00 AM AM[facility]ULATORY - MEDICINE [facility] [place] [facility] Mar 09, 2025 08:30 AM AMBULATORY - MEDICINE [facility] [place] [facility] Mar 14, 2025 09:00 AM AMBULATORY - MEDICINE [facility] [place] [facility] Mar 14, 2025 10:00 AM AMBULATORY - MEDICINE [facility] [place] [facility] Mar 14, 2025 10:15 AM AMBULATORY - MEDICINE [facility] [place] [facility] Mar 27, 2025 09:15 AM AMBULATORY - NONE [facility] [place] [facility] Mar 31, 2025 01:00 PM AMBULATORY - MEDICINE [facility] [place] [facility] Apr 13, 2025 09:00 AM AMBULATORY - NONE [facility] Apr 20, 2025 09:00 AM AMBULATORY - NONE [facility] Apr 21, 2025 09:00 AM AM[facility]ULATORY [facility] MEDICINE [facility] Apr 21, 2025 09:15 AM AMBULATORY - MEDICINE [facility] [place] [facility] Apr 24, 2025 01:00 PM [facility] Apr 27, 2025 09:00 AM AMBULATORY - NONE [facility] May 04, 2025 09:00 AM AMBULATORY - NONE [facility] May 05, 2025 01:30 PM AMBULATORY - MEDICINE [facility] May 11, 2025 09:00 AM AMBULATORY - NONE [facility] May 18, 2025 09:00 AM AMBULATORY - MEDICINE [facility] May 18, 2025 09:05 AM AMBULATORY - NONE [facility] May 22, 2025 08:30 AM AMBULATORY - SURGERY MD CN [facility] Active, Pending, and Scheduled Orders [...] AM Consult Order COMMUNITY CARE-RETINAL SPECIALIST Cons Business Strategy Manager's Choice [facility] Lab Results: +/- 30 days [...] Type Comment March 01, 2025 11:50 AM [facility] CYSTATIN C CREATININE EGFR PANEL ([facility]) SERUM Specimen Type: SERUM No comment entered. Ordering Provider: TAMI SANDERS Report Released Date/Time: February 09, 2025 07:59 AM Reporting Lab: [address] [address] Performing Lab: [address] [address] eGFR(CREAT-CYSTATIN C) 66 mL/min >=60 CREATININE,SERUM([facility]) 1.13 mg/dL 0.5-1.5 CYSTATIN C ([facility]) 1.24 mg/L H 0.51-1.05 March 01, 2025 11:49 AM [facility] MICROALBUMIN CREATININE RATIO PANEL URINE Spe cimen Type: URINE No comment entered. Ordering Provider: ALFREDO SANDERS Report Released Date/Time: Oct 18, 2024 09:03 AM Reporting Lab: [facility] [address] [address] Performing Lab: [facility] [address] [address] MICROALBUMIN/CREATININE RATIO 57.0 mg/g H 0-29.9 MICROALBUMIN,QUANTITATIVE 5.2 mg/dL RR U NAVAIL CREATININE URINE 91.26 mg/dL 63-166 March 01, 2025 11:49 AM [facility] FERRITIN SERUM Specimen Type: SERUM No comment entered. Ordering Provider: ALFREDO SANDERS Report Released Date/Time: Oct 18, 2024 09:03 AM Reporting Lab: [facility] [address] [address] Performing Lab: [facility] [address] [address] FERRITIN 140.5 ng/mL 21.8-274.7 March 01, 2025 11:49 AM [facility] BASIC METABOLIC PANEL (non-fasting) SERUM Spe cimen Type: SERUM No comment entered. Ordering Provider: ALFREDO SANDERS Report Released Date/Time: Oct 18, 2024 09:03 AM Reporting Lab: [facility] [address] [address] Performing Lab: [facility] [address] [address] UREA NITROGEN 11 mg/dL 8-26 GLUCOSE 151 mg/dL H 65-100 SODIUM 136 mmol/L 136-145 POTASSIUM 4.4 mmol/L 3.5-5.1 CHLORIDE 102 mmol/L 98-107 CO2 25 meq/L 23-31 CALCIUM 8.7 mg/dL L 8.8-10 CREATININE, Serum 1.18 mg/dL 0.72-1.25 eGFR(CKD-EPI 2020) 69 mL/min >60 March 01, 2025 11:49 AM [facility] CBC BLOOD Specimen Type: BLOOD No comment entered. Ordering Provider: ALFREDO SANDERS Report Released Date/Time: Oct 18, 2024 09:03 AM Reporting Lab: [facility]N [facility] [address] [address] Performing Lab: [facility] [address] [address] WBC 9.50 10*3/uL 4.50-11.00 RBC 4.98 10*6/uL 4.23-5.66 HGB 14.4 g/dL 12.8-17 HCT 43.4 39.2-50.4 MCV 87.1 fL 82-99 MCHC 33.2 g/dL 30.8-35.1 PLT 288 10*3/uL 140-360 MPV 10.9 fL 9.2-12.4 RDW-CV 13.1 12.0-16.0 MCH 28.9 pg 26.2-32.6 March 01, 2025 11:49 AM [facility] IRON & TIBC PANEL SERUM Specimen Type: SERUM No comment entered. Ordering Provider: ALFREDO SANDERS Report Released Date/Time: Oct 18, 2024 09:03 AM Reporting Lab: [facility]ITALN [address] [address] Performing Lab: [facility] [address] TIBC 383 ug/dL 204-475 IRON 91 ug/dL 65-175 Transferrin Saturation 23.8 15-45 Transferrin (TRF) 290 mg/dL 180-382 February 06, 2025 08:56 AM [facility] FERRITIN SERUM Sp ecimen Type: SERUM No comment entered. Ordering Provider: AUSTIN BALDWIN Report Released Date/Time: Mar 16, 2024 11:36 AM Reporting Lab: [facility] [address] [address] Performing Lab: [facility] [address] FERRITIN 499.1 ng/mL H 21.8-274.7 February 06, 2025 08:56 AM [place] HEMOGLOBIN A1C PANEL BLOOD Specimen T ype: [...] Mar 16, 2024 11:36 AM Reporting Lab: [facility] [place] [address] [address] Performing Lab: [facility]TRUSA [facility]N [facility] [address] HEMOGLOBIN A1C 7.2 H 4.0-5.6 February 06, 2025 08:56 AM [place] TSH SERUM Sp ecimen Type: SERUM No comment entered. Ordering Provider: AUSTIN BALDWIN Report Released Date/Time: Mar 16, 2024 11:36 AM Reporting Lab: [facility] [place] [address] [address] Performing Lab: [facility] [place] [place] [address] [address] TSH 4.21 u[IU]/mL 0.35-4.94 February 06, 2025 08:56 AM [place] PSA SERUM Sp ecimen Type: SERUM No comment entered. Ordering Provider: AUSTIN BALDWIN Report Released Date/Time: Mar 16, 2024 11:36 AM Reporting Lab: [facility] [place] [address] [address] Performing Lab: [facility] [address] [address] PSA 0.9 ng/mL 0.0-4.0 February 06, 2025 08:56 AM [place] LIPASE SERUM Sp ecimen Type: SERUM No comment entered. Ordering Provider: AUSTIN BALDWIN Report Released Date/Time: Mar 16, 2024 11:36 AM Reporting Lab: [facility] [place] [address] [address] Performing Lab: [facility] [place] [facility] [address] [address] LIPASE 50 U/L 0-60 February 06, 2025 08:56 AM [place] AMYLASE SERUM Sp ecimen Type: SERUM No comment entered. Ordering Provider: AUSTIN BALDWIN Report Released Date/Time: Mar 16, 2024 11:36 AM Reporting Lab: [facility] [address] Performing Lab: [facility] [address] AMYLASE 125 U/L 25-125 February 06, 2025 08:56 AM [place] MICROALBUMIN CREATININE RATIO PANEL URINE Specimen Type: URINE No comment entered. Ordering Provider: AUSTIN BALDWIN Report Released Date/Time: Mar 16, 2024 11:36 AM Reporting Lab: [facility] [address] [address] Performing Lab: [facility] [address] MICROALBUMIN/CREATININE RATIO 169.4 mg/g H 0-29.9 MICROALBUMIN,QUANTITATIVE 27.8 mg/dL RR UNAVAIL CREATININE URINE 164.10 mg/dL 63-166 February 06, 2025 08:56 AM [place] URINALYSIS URINE S pecimen Type: URINE Comment: If Glucose = >500 and Ketones are positive, please alert the Physician. Ordering Provider: AUSTIN BALDWIN Report Released Date/Time: Mar 16, 2024 11:36 AM Reporting Lab: [facility]TR[facility] [place] [address] [address] Performing Lab: [facility] [address] UA COLOR Light-Yellow Yellow UA APPEARANCE Clear Clear UA GLUCOSE >1000 mg/dL Negative UA KETONES NEGATIVE mg/dL Negative UA BLOOD NEGATIVE mg/dL Negative UA PROTEIN 50 mg/dL Negative UA NITRITE NEGATIVE mg/dL Negative UA BILIRUBIN NEGATIVE mg/dL Negative UA SPECIFIC GRAVITY 1.022 1.016-1.022 UA pH 7.0 5.0-9.0 UA UROBILINOGEN Normal mg/dL <2.0 UA LEUKOCYTE NEGATIVE Negative February 06, 2025 08:56 AM [place] BASIC METABOLIC PANEL (fasting) SERUM Specimen Type: SERUM No comment entered. Ordering Provider: AUSTIN BALDWIN Report Released Date/Time: Mar 16, 2024 11:36 AM Reporting Lab: [facility] [address] [address] Performing Lab: [facility] [address] [address] UREA NITROGEN 11 mg/dL 8-26 GLUCOSE 213 mg/dL H 65-100 SODIUM 138 mmol/L 136-145 POTASSIUM 4.3 mmol/L 3.5-5.1 CHLORIDE 101 mmol/L 98-107 CO2 26 meq/L 23-31 CALCIUM 9.2 mg/dL 8.8-10 CREATININE, Serum 1.12 mg/dL 0.72-1.25 eGFR(CKD-EPI 2020) 73 mL/min >60 February 06, 2025 08:56 AM [place] LIVER FUNCTION SERUM Specimen Type: SERUM No comment entered. Ordering Provider: AUSTIN BALDWIN Report Released Date/Time: Mar 16, 2024 11:36 AM Reporting Lab: [facility] [address] [address] Performing Lab: [facility] [address] [address] PROTEIN,TOTAL 7.2 g/dL 6.4-8.3 ALBUMIN 4.0 g/dL 3.2-4.6 ALKALINE PHOSPHATASE 35 U/L L 40-150 AST 27 U/L 5-34 ALT 37 U/L 0-55 BILIRUBIN, TOTAL 0.3 mg/dL 0.2-1.2 February 06, 2025 08:56 AM [place] CALCIUM SERUM Sp ecimen Type: SERUM No comment entered. Ordering Provider: AUSTIN BALDWIN Report Released Date/Time: Mar 16, 2024 11:36 AM Reporting Lab: [facility] [address] [address] Performing Lab: [facility] [address] [address] CALCIUM 9.2 mg/dL 8.8-10 February 06, 2025 08:56 AM [place] LIPID PANEL FASTING SERUM Specimen Ty pe: SERUM No comment entered. Ordering Provider: AUSTIN BALDWIN Report Released Date/Time: Mar 16, 2024 11:36 AM Reporting Lab: [facility]N [facility] [address] [address] Performing Lab: [facility]TR[facility]ITALN [facility] [address] [address] CHOLESTEROL 229 mg/dL H TRIGLYCERIDE 315 mg/dL H 0-150 LDL calculated Reflex to dLDL mg/dL 0-12 9 CHOL/HDL 6.7 HDL CHOLESTEROL 34 mg/dL L >40 LDL DIRECT 172 mg/dL H 0-159 February 06, 2025 08:56 AM [place] URIC ACID SERUM Sp ecimen Type: SERUM No comment entered. Ordering Provider: AUSTIN BALDWIN Report Released Date/Time: Mar 16, 2024 11:36 AM Reporting Lab: [facility] [address] [address] Performing Lab: [facility] [address] [address] URIC ACID 4.8 mg/dL 3.7-7.7 February 06, 2025 08:56 AM [facility] VITAMIN D (25-OH) SERUM Specimen Type: SERUM No comment entered. Ordering Provider: AUSTIN BALDWIN Report Released Date/Time: Mar 16, 2024 11:36 AM Reporting Lab: [facility]ITALN [address] [address] Performing Lab: [facility] [address] [address] VITAMIN D (25-OH) 42.5 ng/mL 20-50 February 06, 2025 08:56 AM [place] MICROSCOPIC AUTOMATED, URINE URINE Sp ecimen Type: URINE Comment: If Glucose = >500 and Ketones are positive, please alert the Physician. Ordering Provider: AUSTIN BALDWIN Report Released Date/Time: Mar 16, 2024 11:36 AM Reporting Lab: [facility]TR[facility]TRN [address] [address] Performing Lab: [facility] [address] [address] UA WBC 0-5 /[HPF] 0-5 UA MUCUS FEW /[LPF] Trace UA RBC 0-2 /[HPF] 0-3 February 06, 2025 08:56 AM [facility] CBC AND DIFF (AUTO) BLOOD Specimen Ty pe: BLOOD No comment entered. Ordering Provider: AUSTIN BALDWIN Report Released Date/Time: Mar 16, 2024 11:36 AM Reporting Lab: [facility] [address] [address] Performing Lab: [facility] [address] [address] WBC 8.12 10*3/uL 4.50-11.00 RBC 5.17 10*6/uL [...] 0.0 0.0-0.0 NRBC, ABS 0.00 10*3/uL 0.00-0.00 Social History: Smoking Status (Most current) and Tobacco Use (All prior to encounter date) This section includes the most current, and the historical, smoking and tobacco- related health factors from the MD facility where the Encounter took place. Current Smoking Status This section includes the most current smoking, or tobacco-related health factor, from the MD facility where the Encounter took place. Date/Time Current Smoking Status Comment Facil ity Dec 16, 2023 10:00 AM VA-TOBACCO USE 30 YEARS OR MORE [facility] Tobacco Use History This section includes a history of the smoking, or tobacco-related health factors, that were collected on or before the date of the Encounter. The data comes from the MD facility where the Encounter took place. Date/Time Smoking Status/Tobacco Use Comment F acility Dec 16, 2023 10:00 AM VA-TOBACCO USE > 1 5 LESS THAN 30 YEARS [facility] Dec 16, 2023 10:00 AM VA-TOBACCO USE 30 YEARS OR MORE [facility] Dec 16, 2023 10:00 AM VA-TOBACCO USE ADVICE [facility] Dec 16, 2023 10:00 AM VA-TOBACCO USE MEDICINE MAN NO [facility] Dec 16, 2023 10:00 AM VA-TOBACCO USE MEDICINE MAN YES [facility] Dec 16, 2023 10:00 AM VA-TOBACCO USE MED NO [facility] Dec 16, 2023 10:00 AM VA-TOBACCO USE MED YES [facility] Dec 16, 2023 10:00 AM VA-TOBACCO USE WI 30 MIN OF WAKEUP [facility] Dec 16, 2023 10:00 AM VA-TOBACCO USER EVERY DAY [facility] Jan 13, 2023 02:00 PM VA-TOBACCO USE 1 T O < 5 YEARS [facility] Jan 13, 2023 02:00 PM VA-TOBACCO USE ADVICE [facility] Jan 13, 2023 02:00 PM VA-TOBACCO USE MEDICINE MAN NO [facility] Jan 13, 2023 02:00 PM VA-TOBACCO USE MED NO [facility] Jan 13, 2023 02:00 PM VA-TOBACCO USE WI 30 MIN OF WAKEUP [facility] Jan 13, 2023 02:00 PM VA-TOBACCO USER EVERY DAY [facility] Jul 03, 2022 09:00 AM VA-TOBACCO FORMER USER [facility] Jul 03, 2022 09:00 AM VA-TOBACCO QUIT 5 TO < 15 YRS [facility] Jul 04, 2021 09:00 AM VA-TOBACCO USE > 1 5 LESS THAN 30 YEARS [facility] Jul 04, 2021 09:00 AM VA-TOBACCO USE ADVICE [facility] Jul 04, 2021 09:00 AM VA-TOBACCO USE MEDICINE MAN NO [facility] Jul 04, 2021 09:00 AM VA-TOBACCO USE MED NO [facility] Jul 04, 2021 09:00 AM VA-TOBACCO USE WI 30 MIN OF WAKEUP [facility] Jul 04, 2021 09:00 AM VA-TOBACCO USER SOME DAYS [facility] Apr 30, 2020 10:39 AM VA-TOBACCO FORMER USER [facility] Apr 30, 2020 10:39 AM VA-TOBACCO QUIT 5 TO < 15 YRS [facility] Dec 21, 2018 03:15 PM VA-TOBACCO FORMER USER [facility] Dec 21, 2018 03:15 PM VA-TOBACCO QUIT 1 TO < 5 YRS [facility] Nov 24, 2017 09:54 AM CURRENT SMOKER cigarets [facility] Nov 24, 2017 09:54 AM V1-PT READY TO SHARAN T TOBACCO USE [facility] Mar 25, 2017 01:57 PM CURRENT SMOKER down to 10 cigarettes daily [facility] Mar 25, 2017 01:57 PM V1-PT DECLINES TOB ACCO CESSATION [facility] Mar 25, 2017 01:57 PM V1-PT READY TO SHARAN T TOBACCO USE [facility] March 04, 2017 02:38 PM CURRENT SMOKER advise stopm [facility] Jul 22, 2016 09:29 AM V1-PT NOT INTEREST ED IN QUIT TOBACCO USE [facility] Nov 21, 2015 09:21 AM CURRENT SMOKER half a pack a day [facility] Nov 21, 2015 09:21 AM V1-PT NOT INTEREST ED IN QUIT TOBACCO USE [facility] Nov 23, 2014 08:51 AM CURRENT SMOKER [facility] Nov 23, 2014 08:51 AM V1-PT READY TO SHARAN T TOBACCO USE [facility] Dec 16, 2013 02:19 PM CURRENT SMOKER 3/4 pack a day [facility] Dec 16, 2013 02:19 PM V1-PT THINKING ABO UT QUIT TOBACCO USE [facility] Advance Directives: All historical and current Section [...] Encounter. Date/Time Encounter Note(s) Provider Source February 13, 2025 12:34 PM PHARMACY OUTPATIEN T NOTE: LOCAL TITLE: PHARMACY CLINIC NOTE STANDARD TITLE: PHARMACY OUTPATIENT NOTE DATE OF NOTE: FEBRUARY 13, 2025@12:34 ENTRY DATE: FEBRUARY 13, 2025@12:34:18 AUTHOR: SWAPNIL NEWMAN COSIGNER: URGENCY: STATUS: COMPLETED Known Allergies: CODEINE, OXYCODONE ANGELA RIVERA contacted [...] consult, I also did nephro consult . At time of last visit, semaglutide d/c'd due to ADR. Pt notes he is feeling much better but appetite has increased. Having more CHO, soda etc. Not SMBG. Remains tobacco free; motivated by money he is saving. As noted previously, LSMs have lead to >20lb weight loss. Target Goals: A1C: 7%; FB-110 mg/dl Objective: Diabetes Medication Regimen: None Previous Medications: semaglutide 1mg once weekly (GI ADR) Adherence: N/A HEMOGLOBIN A1C TREND Collection DT Spec HGBA1c 02/06/2025 08:56 BLOOD 7.2 H 12/15/2024 09:34 BLOOD 5.8 H 09/19/2024 08:34 BLOOD 5.7 H 09/13/2024 07:33 BLOOD 5.8 H 02/23/2024 09:11 BLOOD 6.4 H LIPID PANEL TREND Collection DT Spec CHOL HDL CHO/HDL LDL-d LDL-c TRIG 02/06/2025 08:56 SERUM 229 H 34 L 6.7 172 H Reflex to dLDL 315 H 09/13/2024 07:33 SERUM 154 31 L 5.0 73 248 H 02/23/2024 09:11 SERUM 145 38 L 3.8 59 241 H 01/04/2024 08:57 SERUM 166 31 L 5.4 92 Reflex to dLDL 510 H 11/27/2023 10:19 SERUM 179 33 L 5.4 96 251 H CREATININE-EGFR 02/06/25 08:56 1.12 eGFR 73 12/15/24 09:34 1.27 09/20/24 09:25 1.07 BP: 116/79 (02/06/2025 09:17) HR: 69 (02/06/2025 09:17) HT: 68 in [172.7 cm] (11/21/2023 09:25) WT: 228 lb [103.42 kg] (11/15/2024 08:38) BMI: BMI: 34.7 Patient self-monitoring of blood glucose: Health-Tarik: At home : Patient self-monitors blood glucose 1-2x/week and reports the following (mg/dl): 05/20/24 Reports BG ~106mg/dL. 07/29/24 Not SMBG but will resume. 09/07/24 Not SMBG but will resume. 09/20/24 BG today 110mg/dL. 12/19/24 Has not SMBG. 02/13/25 Not SMBG. Patient eats on avg. 2-3x day: Diet Patterns: appetite increased B: eggs + toast or Ensure or skips L: sandwich or prepared meals at SO D: varies; [employer] [employer] provides meals Snacks: ice-cream on occassion Drinks: diet/sugar free Dejesus, Gatorade zero, water (will be getting a Alissa), coffee (with cream and milk), soda Exercise: Walks every day (5000-10,000 steps/day) HYPOGLYCEMIC Events: 0 in the last 2 weeks Hypoglycemia recognition & treatment reviewed: Yes EtOH/Illicit drugs: Alcohol: denies Tobacco: last cigg 06/19/24; quit x 17 years, when not able to see granddtr anymore, resumed smoking (quit for her) Other: marijuana Other: Denies personal or fhx thyroid cancer or MENS2 Denies personal hx pancreatitis 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 A1c increased and above goal likely d/t d/c of semaglutide and dietary considerations. Pt in agreement to nutrition consult; will eliminate soda and cut back on CHO intake and portion sizes. Discussed DPP-4 inhibitor; MOA, potential ADRs, dosing and administration of sitagliptin reviewed. Will initiate and monitor. Encouraged to SMBG 2x/week. SGLT-2 inhibitor avoided given fluctuation in renal function resulting in several hospitalizations; reassess in the future. If needed, consider Arti 3 in future but given A1c at goal and starting GLP-1 agonist, will not consider at this time. 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 He will ask for assistance from others as possible. Diabetes (Goal A1c<7%, FBG 90-110mg/dL, 2hPP<180mg/dL): - INITIATE sitagliptin 100mg daily - Monitor for s/sx hypoglycemia and contact clinic if BG consistently < 70mg/dL - Healthy dietary lifestyle modifications encouraged - Repeat A1c: May 2025 - Will place nutrition consult Clinic's Next Scheduled Follow-up: 6-8 weeks HTN: at goal; DAMARI-I changed to CCB d/t rise in SCr; f/u nephrology ASCVD: not on statin; on fenof History of Preventive Care:ibrate; defer to PCP/review at f/u Microalb: 12.4 mg/G (09/2025) Most recent visit to stockkeeper: 01/2025 Most recent visit to optometry: 07/2023; T2 Diabetes without retinopathy or macular edema OU ; scheduled 03/2025 Time Spent: 30 minutes PBM PharmD Pharmacotherapy Rem V12: PHARMACIST INTERVENTIONS: TYPE 2 DIABETES MELLITUS Medication Intervention(s) Initiate new medication Medication reconciliation (changes to active [facility] and non-VA medication lists to reconcile differences) Changes to medication lists made Add or renew medication /karlene/ Swapnil Newman PharmD Clinical Pharmacy Practitioner Signed: 02/13/2025 13:16 SWAPNIL NEWMAN
--- OUTSIDE RECORDS SUMMARY | 2025-03-07 05:00 | XMS_ITS | Encounter Summary ---
Author Name [facility] [place] [facility] [place] Address [address] [place] [address] Care Team Providers Care Benefits Specialist Name Role Phone AUSTIN BALDWIN Primary [...] PATRICIO ERICKSON Nov 14, 2024 PATRICIO MULLIGAN [id number] NICOLE,A NALLELY PATIENT [facility] MEDICAID MEDICAID MEDIC AID Oct 05, 2016 MEDICAI D [id number] NICOLE,A NALLELY PATIENT MEDICAID MEDICAID [facility] STAND BEATRICE Oct 05, 2014 MEDICAI D [id number] NICOLE,Dougie NALLELY PATIENT MEDICARE (WNR) MEDICARE (M) PART A May 05, 2018 PART A [id number] [id number] Dougie MICHELLE NALLELY PATIENT MEDICARE (WNR) MEDICARE (M) PART B May 05, 2018 PART B [id number] Dougie MICHELLE PATIENT Selected Encounter This section includes the information on record at NH for the Encounter. Date/Time Encounter Type Encounter Description Reason Provider Source Mar 07, 2025 09:00 AM OFFICE O/P EST MOD 30 MIN RENAL/NEPHROL(EXC EPT DIALYSIS) ICD-10-CM N18.30 Chronic kidney disease, stage 3 unspecified SASHA SANDERS [facility] Encounter Template Text not used by [place] Assessments - Encounter Diagnoses This section includes the primary and secondary diagnoses documented for the Encounter. Date/Time Primary/Secondary Diagnosis Diagnosis Name Provider Source Jun 03, 2025 05:21 PM PRIMARY Chronic kidney disease, stage 3 unspecified JENNIFER SANDERS [place] [facility] [place] [facility] Jun 03, 2025 05:21 PM SECONDARY Essential (primary) hypertension JENNIFER SANDERS [place] [facility] [place] [facility] Jun 03, 2025 05:21 PM SECONDARY Mixed hyperlipidemia JENNIFER SANDERS [facility] [place] [facility] Plan of Treatment: Future Appointments (+ 6 months) and Future Tests (+/- 45 days) The Plan of Treatment section includes future care activities for the [facility] This section includes future appointments and future orders which are active, pending or scheduled. Future Appointments This section includes appointments that were scheduled to occur 6 months from the date of the Encounter, up to a maximum of 20 appointments. The data comes from all [place] treatment facilities. Appointment Date/Time Appointment Type Appointme nt Facility Name Mar 09, 2025 08:30 AM AMBULATORY - MEDICINE [place] [facility] [place] [facility] Mar 14, 2025 09:00 AM AMBULATORY - MEDICINE [facility] [place] [facility] Mar 14, 2025 10:00 AM AMBULATORY - MEDICINE [facility] [place] [facility] Mar 14, 2025 10:15 AM AMBULATORY - MEDICINE [place] [facility] [place] [facility] Mar 27, 2025 09:15 AM AMBULATORY - NONE [facility] [place] [facility] Mar 31, 2025 01:00 PM AMBULATORY - MEDICINE [facility] [place] [facility] Apr 13, 2025 09:00 AM AMBULATORY - NONE [facility] Apr 20, 2025 09:00 AM [facility]ORY - NONE [facility] Apr 21, 2025 09:00 AM AMBULATORY - MEDICINE [facility] Apr 21, 2025 09:15 AM AMBULATORY - MEDICINE [facility] [place] [facility] Apr 24, 2025 01:00 PM AMBULATORY - MEDICINE [facility] [place] [facility] Apr 27, 2025 09:00 AM AMBULATORY - NONE [facility] May 04, 2025 09:00 AM AMBULATORY - NONE [facility] May 05, 2025 01:30 PM [facility]BULATORY - MEDICINE [facility] May 11, 2025 09:00 AM AMBULATORY - NONE [facility] May 18, 2025 09:00 AM AMBULATORY - MEDICINE [facility] May 18, 2025 09:05 AM AMBULATORY - NONE [facility] May 22, 2025 08:30 AM AMBULATORY - SURGERY [place] [facility] [place] [facility] May 25, 2025 09:00 AM AMBULATORY - NONE [facility] Jun 01, 2025 09:00 AM AMBULATORY - NONE [facility] [...] of theEncounter. The data comes from all [place] treatment facilities. Test Date/Time Test Type Test Details Facility Name Mar 14, 2025 10:24 AM Consult Order [facility] Cons Hydrogen Braze Furnace Operator's Choice [facility] Lab Results: +/- 30 days [...] Type Comment March 01, 2025 11:50 AM [facility] CYSTATIN C CREATININE EGFR PANEL (V) SERUM Specimen Type: SERUM No comment entered. Ordering Provider: TAMI SANDERS Report Released Date/Time: February 09, 2025 07:59 AM Reporting Lab: [facility] [place] [facility] [address] [address] Performing Lab: [facility] [address] [facility] [address] eGFR(CREAT-CYSTATIN C) 66 mL/min >=60 CREATININE,SERUM(WHV) 1.13 mg/dL 0.5-1.5 CYSTATIN C (WHV) 1.24 mg/L H 0.51-1.05 March 01, 2025 11:49 AM [facility] MICROALBUMIN CREATININE RATIO PANEL URINE Spe cimen Type: URINE No comment entered. Ordering Provider: ALFREDO SANDERS Report Released Date/Time: Oct 18, 2024 09:03 AM Reporting Lab: [facility] [address] [address] Performing Lab: [facility] [address] MICROALBUMIN/CREATININE RATIO 57.0 mg/g H 0-29.9 MICROALBUMIN,QUANTITATIVE 5.2 mg/dL RR U NAVAIL CREATININE URINE 91.26 mg/dL 63-166 March 01, 2025 11:49 AM [facility] FERRITIN SERUM Specimen Type: SERUM No comment entered. Ordering Provider: ALFREDO SANDERS Report Released Date/Time: Oct 18, 2024 09:03 AM Reporting Lab: [facility] [address] Performing Lab: [facility]EN[facility]ETS [address] [address] FERRITIN 140.5 ng/mL 21.8-274.7 March 01, 2025 11:49 AM [facility] BASIC METABOLIC PANEL (non-fasting) SERUM Spe cimen Type: SERUM No comment entered. Ordering Provider: ALFREDO SANDERS Report Released Date/Time: Oct 18, 2024 09:03 AM Reporting Lab: [facility]EN[facility] [address] Performing Lab: [facility] [address] UREA NITROGEN 11 mg/dL 8-26 GLUCOSE 151 mg/dL H 65-100 SODIUM 136 mmol/L 136-145 POTASSIUM 4.4 mmol/L 3.5-5.1 CHLORIDE 102 mmol/L 98-107 CO2 25 meq/L 23-31 CALCIUM 8.7 mg/dL L 8.8-10 CREATININE, Serum 1.18 mg/dL 0.72-1.25 eGFR(CKD-EPI 2020) 69 mL/min >60 March 01, 2025 11:49 AM [facility] CBC BLOOD Specimen Type: BLOOD No comment entered. Ordering Provider: ALFREDO SANDERS Report Released Date/Time: Oct 18, 2024 09:03 AM Reporting Lab: [address] [address] Performing Lab: [address] [address] WBC 9.50 10*3/uL 4.50-11.00 RBC 4.98 10*6/uL 4.23-5.66 HGB 14.4 g/dL 12.8-17 HCT 43.4 39.2-50.4 MCV 87.1 fL 82-99 MCHC 33.2 g/dL 30.8-35.1 PLT 288 10*3/uL 140-360 MPV 10.9 fL 9.2-12.4 RDW-CV 13.1 12.0-16.0 MCH 28.9 pg 26.2-32.6 March 01, 2025 11:49 AM [facility] IRON & TIBC PANEL SERUM Specimen Type: SERUM No comment entered. Ordering Provider: ALFREDO SANDERS Report Released Date/Time: Oct 18, 2024 09:03 AM Reporting Lab: [address] [address] Performing Lab: [address] [address] TIBC 383 ug/dL 204-475 IRON 91 ug/dL 65-175 Transferrin Saturation 23.8 15-45 Transferrin (TRF) 290 mg/dL 180-382 February 06, 2025 08:56 AM [place] FERRITIN SERUM Sp ecimen Type: SERUM No comment entered. Ordering Provider: AUSTIN BALDWIN Report Released Date/Time: Mar 16, 2024 11:36 AM Reporting Lab: [facility] [address] [address] Performing Lab: [facility] [address] [address] FERRITIN 499.1 ng/mL H 21.8-274.7 February 06, 2025 08:56 AM [place] HEMOGLOBIN A1C PANEL BLOOD Specimen T ype: [...] Mar 16, 2024 11:36 AM Reporting Lab: [facility] [address] [address] Performing Lab: [facility]ENUSE[address] [address] HEMOGLOBIN A1C 7.2 H 4.0-5.6 February 06, 2025 08:56 AM [place] TSH SERUM Sp ecimen Type: SERUM No comment entered. Ordering Provider: AUSTIN BALDWIN Report Released Date/Time: Mar 16, 2024 11:36 AM Reporting Lab: [facility] [place] [address] [address] Performing Lab: [facility] [address] [address] TSH 4.21 u[IU]/mL 0.35-4.94 February 06, 2025 08:56 AM [place] PSA SERUM Sp ecimen Type: SERUM No comment entered. Ordering Provider: AUSTIN BALDWIN Report Released Date/Time: Mar 16, 2024 11:36 AM Reporting Lab: [facility] [address] [address] Performing Lab: [facility] [place] [facility] [address] [address] PSA 0.9 ng/mL 0.0-4.0 February 06, 2025 08:56 AM [place] LIPASE SERUM Sp ecimen Type: SERUM No comment entered. Ordering Provider: AUSTIN BALDWIN Report Released Date/Time: Mar 16, 2024 11:36 AM Reporting Lab: [facility] [place] [facility] [address] [address] Performing Lab: [facility] [place] [address] [address] LIPASE 50 U/L 0-60 February 06, 2025 08:56 AM [place] AMYLASE SERUM Sp ecimen Type: SERUM No comment entered. Ordering Provider: AUSTIN BALDWIN Report Released Date/Time: Mar 16, 2024 11:36 AM Reporting Lab: [facility] [address] [address] Performing Lab: [facility] [place] [address] [address] AMYLASE 125 U/L 25-125 February 06, 2025 08:56 AM [place] MICROALBUMIN CREATININE RATIO PANEL URINE Specimen Type: URINE No comment entered. Ordering Provider: AUSTIN BALDWIN Report Released Date/Time: Mar 16, 2024 11:36 AM Reporting Lab: [facility] [place] [address] [address] Performing Lab: [facility] [place] [address] [address] MICROALBUMIN/CREATININE RATIO 169.4 mg/g H 0-29.9 MICROALBUMIN,QUANTITATIVE 27.8 mg/dL RR UNAVAIL CREATININE URINE 164.10 mg/dL 63-166 February 06, 2025 08:56 AM [place] URINALYSIS URINE S pecimen Type: URINE Comment: If Glucose = >500 and Ketones are positive, please alert the Physician. Ordering Provider: AUSTIN BALDWIN Report Released Date/Time: Mar 16, 2024 11:36 AM Reporting Lab: [facility] [place] [address] [address] Performing Lab: [facility] [address] [address] UA COLOR Light-Yellow Yellow UA APPEARANCE Clear Clear UA GLUCOSE >1000 mg/dL Negative UA KETONES NEGATIVE mg/dL Negative UA BLOOD NEGATIVE mg/dL Negative UA PROTEIN 50 mg/dL Negative UA NITRITE NEGATIVE mg/dL Negative UA BILIRUBIN NEGATIVE mg/dL Negative UA SPECIFIC GRAVITY 1.022 1.016-1.022 UA pH 7.0 5.0-9.0 UA UROBILINOGEN Normal mg/dL <2.0 UA LEUKOCYTE NEGATIVE Negative February 06, 2025 08:56 AM [place] BASIC METABOLIC PANEL (fasting) SERUM Specimen Type: SERUM No comment entered. Ordering Provider: AUSTIN BALDWIN Report Released Date/Time: Mar 16, 2024 11:36 AM Reporting Lab: [address] [address] Performing Lab: [address] [address] UREA NITROGEN 11 mg/dL 8-26 GLUCOSE 213 mg/dL H 65-100 SODIUM 138 mmol/L 136-145 POTASSIUM 4.3 mmol/L 3.5-5.1 CHLORIDE 101 mmol/L 98-107 CO2 26 meq/L 23-31 CALCIUM 9.2 mg/dL 8.8-10 CREATININE, Serum 1.12 mg/dL 0.72-1.25 eGFR(CKD-EPI 2020) 73 mL/min >60 February 06, 2025 08:56 AM [place] LIVER FUNCTION SERUM Specimen Type: SERUM No comment entered. Ordering Provider: AUSTIN BALDWIN Report Released Date/Time: Mar 16, 2024 11:36 AM Reporting Lab: [address] [address] Performing Lab: [address] [address] PROTEIN,TOTAL 7.2 g/dL 6.4-8.3 ALBUMIN 4.0 g/dL 3.2-4.6 ALKALINE PHOSPHATASE 35 U/L L 40-150 AST 27 U/L 5-34 ALT 37 U/L 0-55 BILIRUBIN, TOTAL 0.3 mg/dL 0.2-1.2 February 06, 2025 08:56 AM [place] CALCIUM SERUM Sp ecimen Type: SERUM No comment entered. Ordering Provider: AUSTIN BALDWIN Report Released Date/Time: Mar 16, 2024 11:36 AM Reporting Lab: [facility] [address] [address] Performing Lab: [place] [facility] [address] [address] CALCIUM 9.2 mg/dL 8.8-10 February 06, 2025 08:56 AM [place] LIPID PANEL FASTING SERUM Specimen Ty pe: SERUM No comment entered. Ordering Provider: AUSTIN BALDWIN Report Released Date/Time: Mar 16, 2024 11:36 AM Reporting Lab: [facility] [address] [address] Performing Lab: [facility]TR[facility] [address] [address] CHOLESTEROL 229 mg/dL H TRIGLYCERIDE 315 mg/dL H 0-150 LDL calculated Reflex to dLDL mg/dL 0-12 9 CHOL/HDL 6.7 HDL CHOLESTEROL 34 mg/dL L >40 LDL DIRECT 172 mg/dL H 0-159 February 06, 2025 08:56 AM [place] URIC ACID SERUM Sp ecimen Type: SERUM No comment entered. Ordering Provider: AUSTIN BALDWIN Report Released Date/Time: Mar 16, 2024 11:36 AM Reporting Lab: [facility] [address] [address] Performing Lab: [facility] [address] [address] URIC ACID 4.8 mg/dL 3.7-7.7 February 06, 2025 08:56 AM [place] VITAMIN D (25-OH) SERUM Specimen Type: SERUM No comment entered. Ordering Provider: AUSTIN BALDWIN Report Released Date/Time: Mar 16, 2024 11:36 AM Reporting Lab: [facility] [address] [address] Performing Lab: [facility]TR[facility] [address] [address] VITAMIN D (25-OH) 42.5 ng/mL 20-50 February 06, 2025 08:56 AM [place] MICROSCOPIC AUTOMATED, URINE URINE Sp ecimen Type: URINE Comment: If Glucose = >500 and Ketones are positive, please alert the Physician. Ordering Provider: AUSTIN BALDWIN Report Released Date/Time: Mar 16, 2024 11:36 AM Reporting Lab: [address] [address] Performing Lab: [address] [address] UA WBC 0-5 /[HPF] 0-5 UA MUCUS FEW /[LPF] Trace UA RBC 0-2 /[HPF] 0-3 February 06, 2025 08:56 AM [place] CBC AND DIFF (AUTO) BLOOD Specimen Ty pe: BLOOD No comment entered. Ordering Provider: AUSTIN BALDWIN Report Released Date/Time: Mar 16, 2024 11:36 AM Reporting Lab: [address] [address] Performing Lab: [address] [address] WBC 8.12 10*3/uL 4.50-11.00 RBC 5.17 10*6/uL [...] 0.0 0.0-0.0 NRBC, ABS 0.00 10*3/uL 0.00-0.00 Vital Signs: All taken on the encounter date This section contains inpatient and outpatient Vital Signs collected on the date of the Encounter. Date/Time Temperature Pulse Blood Pressure Respiratory Rate SP02 Pain Height Weight Body Mass Index Source Mar 07, 2025 09:14 AM 97.3 F 65 /min 114/73 mm[Hg] 18 /min 95 % 6 248.2 lb 38 [facility] Social History: Smoking Status (Most current) and [...] Date/Time Current Smoking Status Comment Facil ity March 01, 2025 12:53 PM VA-TOBACCO USE FOR EMERALD CIGARETTES [facility] Tobacco Use History This section includes a history of the smoking, or tobacco-related health factors, that were collected on or before the date of the Encounter. The data comes from the [place] facility where the Encounter took place. Date/Time Smoking Status/Tobacco Use Comment F acility March 01, 2025 12:53 PM VA-TOBACCO USE SOME DAYS ENDS [facility] March 01, 2025 12:53 PM VA-TOBACCO USE BETY E DAYS OTHER TYPE [facility] Advance Directives: All historical and [...] Encounter. Date/Time Encounter Note(s) Provider Source Mar 07, 2025 08:01 AM NEPHROLOGY E & M NOTE: LOCAL TITLE: NEPHROLOGY NOTE STANDARD TITLE: NEPHROLOGY E & M NOTE DATE OF NOTE: MAR 07, 2025@08:01 ENTRY DATE: MAR 07, 2025@08:01:16 AUTHOR: ALFREDO SANDERS COSIGNER: URGENCY: STATUS: COMPLETED Nephrology Follow-Up Note 03/07/25 09:00 Consultation Problem:Chronic Kidney Disease Stage 2:hypertensive Nephrosclerosis History:64 year old robe wit a history of hypertension, hypertriglyceridemia and hyperglycemia presenting for evaluation and management of his renal disease. The patient denies any new problems. He states he was gradually losing weight while on semaglutide(Ozemic) but because of presisting nausea and vomiting it was stopped January 13, 2025. The patient states at the time it was stopped he had lower leg edema and was started on limited Brumex for about 5 days to address edema. The patient reports that he was seen by his Communication Manager for his regular evaluation a day after his BIAS MACHINE OPERATOR HELPER who was managing his diabetes. He state he left for [facility] on January 14. He states he had severe leg pain and lower leg edema (left > right). He also noted right knee pain with the severe leg pain. He says with the Brumex the edema improved but has not resolve completely. He continues to have the leg pain but not as severe. Before January he had never had probems with edema or leg pain. Medications: Active and Recently Outpatient Medications (excluding Supplies): [...] JUICE Indication: FOR HIGH BLOOD PRESSURE 4) BUMETANIDE 0.5MG TAB TAKE ONE TABLET BY MOUTH ONCE DAILY ACTIVE Indication: TO REMOVE FLUID/CONTROL BLOOD PRESSURE 5) CHOLECALCIF 50MCG (D3-2,000UNIT) TAB TAKE ONE TABLET BY ACTIVE (S) MOUTH ONCE DAILY FOR VITAMIN SUPPLEMENTATION Indication: FOR VITAMIN D DEFICIENCY 6) CYANOCOBALAMIN 500MCG TAB TAKE ONE TABLET BY MOUTH TWICE ACTIVE (S) DAILY Indication: FOR PREVENTION OF VITAMIN B12 DEFICIENCY 7) FENOFIBRATE 145MG TAB TAKE ONE TABLET BY MOUTH ONCE DAILY ACTIVE Indication: FOR HIGH CHOLESTEROL 8) FERROUS GLUCONATE 324MG TAB TAKE ONE TABLET BY MOUTH EVERY ACTIVE OTHER DAY Indication: TO SUPPLEMENT IRON 9) FERROUS SULFATE 325MG TAB TAKE ONE TABLET BY MOUTH EVERY ACTIVE OTHER DAY TAKE WITH ORANGE JUICE Indication: TO SUPPLEMENT IRON 10) MAGNESIUM OXIDE 420MG TAB TAKE ONE TABLET BY MOUTH ONCE ACTIVE DAILY Indication: FOR MAGNESIUM SUPPLEMENTATION 11) MULTIVITAMIN CAP/TAB TAKE 1 TABLET BY MOUTH ONCE DAILY ACTIVE Indication: FOR VITAMIN SUPPLEMENTATION 12) OMEPRAZOLE 20MG EC CAP TAKE ONE CAPSULE BY MOUTH TWICE DAILY ACTIVE Indication: FOR EXCESSIVE PRODUCTION OF STOMACH ACID 13) POTASSIUM CL 20MEQ SA TAB (DISPERSIBLE) TAKE ONE TABLET BY ACTIVE MOUTH ONCE DAILY Indication: FOR LOW POTASSIUM 14) SITAGLIPTIN (EQV-ZITUVIO) 100MG TAB TAKE ONE TABLET BY MOUTH ACTIVE ONCE DAILY Indication: DIABETES Active Non-VA Medications Status 1) Non-VA ACETAMINOPHEN TAB BY MOUTH ACTIVE 2) Non-VA ASPIRIN 81MG EC TAB 81MG BY MOUTH EVERY DAY ACTIVE 3) Non-VA CLONAZEPAM 1MG TAB 1MG [...] CAP 150MG BY MOUTH ONCE ACTIVE DAILY 22 Total Medications Review of Systems: Constitutional: no chills no fever no night sweats Head/Neck: no Headache Ear/Nose/Mouth/Throat nostril inflam/lesions throat soreness/lesions/exudates RESP No Cough No SOB No wheezing CARD No Chest Pain No Palpitaions No Periperal edema GI No Abdominal pain No Diarrhea No vomiting ENDO No excessive thirst No Excessive hunger No Weight loss or weight gain : No hematuria No dysuria No proteinuria Vital Signs: Blood Pressure: 114/73 (03/07/2025 09:14) Pain: 6 (03/07/2025 09:14) Patient Height: 68 in [172.7 cm] (11/21/2023 09:25) Patient Weight: 248.2 lb [112.58 kg] (03/07/2025 09:14) Pulse: 65 (03/07/2025 09:14) Respiration: 18 (03/07/2025 09:14) Temperature: 97.3 F [36.3 C] (03/07/2025 09:14) Vitals:as above General: Short statured obese male alert,cooperative in NAD HEENT: Neck/Throat: supple; no JVD; Lungs:clear Heart:RRR; no murmur Abdomen:soft; +BS; no tenderness or organomegaly;no bruit' Ext:bilateral edema: right lower leg 1+; left lower leg trace no erthema Vascular: lower leg DP artery 3/34+ bilaterally Problem addressed this visit Below Areas to address in the evaluation and management of the patient's CKD and to reduce renal disease progression is as follows: #1. CKD stage 2:Hypertensive Nehprosclerosis: the Patient renal state is stable with no uremic sx or fluid overload with no rapid renal decline. Patient labs from 03/01/25 did not show hyperkalemia(4.4) or low bicarb(25). Patient showed his urine microalb/cr ratio was 57. His creatinine was normal at 1.18 His GFR was 68. the patient's renal function is stable. Will continue his present medical regimen. Overview of patient CKD management -Blood pressure: 114/73 -Bone mineral Disease: at goal -Potassium:4.4 -diet: Low sodium, low cholesterol/diabetic diet -Bicarb: at goal: 25 -Anemia: hgb greater than 10? yes 14.4 -Lipid profile: LDL< 100? yes 73 -hgb A1C:7.2 -urine microalb/cr ratio: -Transplant:premature -Vascular Assess: none -On Pedro/ARB: no -Tobacco use: stopped in 2023 -Code status: FULL -Health Care Proxy: Seb michelle #2. Hypertension Goal: 110-135/55-75 Patient blood pressure 114.73 Plan:The patient will continue his BP medications: Amlodipine Pt should adhere to a low salt diet and to heart healthy diet Will recheck his blood pressure on return #3. Anemia: Iron Deficiency Anemia and anemia of chronic disease The patient has no symptons of blood loss including easy bruising nosebleeds or stool changes (Date) 03/01/25 ferritin goal >100(140) TSAT goal>20: ( 24 ) CBC: Hb 12.8-17(14.4 ) PLAN: Will obtain, CBC and iron studies on F/U Will continue iron supplement(Ferrous Gluconate) #4. Mineral Bone studies/PTH status No symptoms of stone or PTH issues goal PTH<350 pg/ml (23 ng/ml) PTH at KDIGO goal for level of CKD Most recent Calcium(8.7)slighlty low and Phosphate(3.0) was normal 25OH VitD 42.5 ; Plan: Will continue to monitor and recheck PTH, Calcium and VitD as needed #5. Lipid status:presently not on lipid lowering med LDL goal is <100; The patient's most recent LDL was 70. Plan: The pt adheres to Heart Healthy low fat diet and exercise may obtain fasting lipid studies for f/u as needed #6. Nutritional State Albumin is 4.0 Patient's weight: 248 Plan: Encourage patient to exercise and adhere to a heart healthy diet #7. Diabetes hgbA1c goal 7.0 hgbA1c for this patient is 7.2 Patient is encouraged to continue his present medical regimen(sitagliptin) and cont to work with his piece meat trimmer. Note: Because of the lower leg edema and pain, Sitagliptin will be held until the patient will be seen by BIAS MACHINE OPERATOR HELPER that is managing his diabetes. #8. Lower leg edema and pain: As noted in the history the patient had the first episode of lower leg and edema around january 13. His Ozempic was stopped becasue of Gi sx. When his Ozempic was stopped the patient was started a short course of Bumex because of elower leg edema. The edema improved with the Bumex but has not resolved completed. He continues to have lower leg pain but not as severe an noted at the beginning. After the ozempic was stopped he was started on sitaglipin. Although it is not very common, Ozempic can cause angioedema. Edema and leg pain can been noted with sitagliptin. Athough the pain/edema was noted before he was on sitagliptin, it may be difficult to diffentiate when there was an overlap with the two meds. Of note the patient is also on amlodipine which can cause edema most often in the ankle. The plan is for the patient to hold the sitagliptin and make the RISK CONSULTANT that is managing his diabetes aware of the presising problems and that the patient is no longer on hypoglycemic agent. Patient will return 5 months obtain blood work for that visit. Will consider the following labs as needed CBC, ferritin, TSAT, urine microalb/cr ratio, Lytes, creatinine, GFR, Lipid profile, Albumin, PO4, PTH, calcium VitD, Patient labs and physical review with the patient. Patient educated on their renal status, all questions were addressed at this visit. This was a 20 minute visit > 50% of which was spent in counseling and coordination of care. Medication Reconciliation: Outpatient: Has the patient been taking medications as documented in the EMLR? YES: The patient has been taking medications as documented in the EMLR. Essential Medication List for Review used to complete this medication reconciliation. INCLUDED IN THIS LIST: Alphabetical list of active outpatient prescriptions dispensed from this NH (local) and dispensed from 03/07/2025 08:01 VITAL SIGNS SELECTED Measurement DT HEIGHT WEIGHT BP IN(CM) LB(KG)[BMI] 03/01/2025 12:51 247.4(112.22)[38*] 116/70 02/06/2025 09:17 116/79 11/15/2024 08:38 228(103.42)[35*] 109/74 10/18/2024 08:40 231(104.78)[35*] 120/71 09/20/2024 10:55 220(99.79)[34*] 121/81 09/20/2024 09:37 221.8(100.61)[34*] 07/25/2024 10:11 233(105.69)[36*] 127/90 05/20/2024 09:00 243(110.22)[37*] 04/19/2024 10:48 238(107.95)[36*] 136/81 03/16/2024 11:16 240(108.86)[37*] 155/104 03/16/2024 11:15 168/104 02/16/2024 09:16 186/112 01/19/2024 08:30 250.4(113.58)[38*] 140/88 12/16/2023 11:03 137/87 11/30/2023 10:47 88/62 11/30/2023 09:11 88/62 11/30/2023 06:08 142/80 11/29/2023 19:57 98/66 11/29/2023 08:52 90/70 11/29/2023 06:35 130/89 11/28/2023 17:01 90/66 11/28/2023 12:15 110/76 11/28/2023 08:35 159/115 11/28/2023 07:29 172/104 11/28/2023 06:39 158/110 11/28/2023 06:35 163/109 11/28/2023 05:16 150/85 11/28/2023 04:06 165/105 11/27/2023 16:00 105/73 11/27/2023 08:21 157/95 11/27/2023 06:05 145/87 11/26/2023 20:05 99/70 11/26/2023 17:40 137/96 11/26/2023 09:42 90/70 11/26/2023 06:22 153/106 11/25/2023 16:00 102/72 11/25/2023 08:59 104/69 11/25/2023 05:37 132/85 11/24/2023 22:12 120/82 11/24/2023 19:11 170/124 11/24/2023 10:38 147/111 11/24/2023 06:46 150/85 11/23/2023 16:20 149/95 11/23/2023 08:00 130/87 11/23/2023 06:35 133/86 11/22/2023 12:51 122/81 11/22/2023 06:08 114/73 11/21/2023 20:45 155/86 11/21/2023 18:43 166/107 11/21/2023 16:45 185/118 11/21/2023 14:55 168/107 11/21/2023 12:40 153/87 11/21/2023 10:35 182/112 11/21/2023 09:25 68(172.72) 240.5(109.09)[37*] 99/71 11/04/2023 13:44 240(108.86)[37*] 127/85 08/25/2023 11:24 235(106.59)[36*] 125/86 06/03/2023 11:25 102/70 05/29/2023 14:42 216.4(98.16)[33*] 113/79 04/20/2023 10:18 68(172.72) 227(102.97)[35*] 130/85 03/09/2023 15:19 68(172.72) 202(91.63)[31*] 127/85 CHEM 7 Results Collection DT Spec Sodium K+/Pot CL CO2 GLUCOSE BUN 03/01/2025 11:49 SERUM 136 4.4 102 25 151 H 11 02/06/2025 08:56 SERUM 138 4.3 101 26 213 H 11 09/20/2024 09:25 SERUM 140 4.1 107 22 115 H 7 04/05/2024 08:13 SERUM 138 4.5 103 24 128 H 14 02/23/2024 09:11 SERUM 140 4.4 107 24 122 H 11 01/04/2024 08:57 SERUM 139 4.0 104 24 219 H 15 11/30/2023 07:00 SERUM 135 3.9 96 L 25 148 H 44 H 11/27/2023 10:19 SERUM 136 4.0 100 22 124 H 31 H 11/27/2023 07:00 SERUM 136 4.1 98 L 24 169 H 32 H 11/26/2023 07:00 SERUM 137 4.3 97 L 26 141 H 31 H 11/25/2023 07:00 SERUM 139 4.1 99 L 26 136 H 27 H 11/24/2023 07:00 BLOOD 141 4.3 104 26 130 21 04/14/2023 08:41 SERUM 143 4.4 107 23 128 H 16 Lipid Profile Collection DT Specimen Test Name Result Units Ref Range 02/06/2025 08:56 SERUM CHOLESTEROL 229 H mg/dL <7 - 199 09/13/2024 07:33 SERUM CHOLESTEROL 154 mg/dL <7 - 199 02/23/2024 09:11 SERUM CHOLESTEROL 145 mg/dL <7 - 199 01/04/2024 08:57 SERUM CHOLESTEROL 166 mg/dL <7 - 199 11/27/2023 10:19 SERUM CHOLESTEROL 179 mg/dL <7 - 199 04/14/2023 08:41 SERUM CHOLESTEROL 167 mg/dL <7 - 199 02/06/2025 08:56 SERUM TRIGLYCERIDE 315 H mg/dL 0 - 150 09/13/2024 07:33 SERUM TRIGLYCERIDE 248 H mg/dL 0 - 150 02/23/2024 09:11 SERUM TRIGLYCERIDE 241 H mg/dL 0 - 150 01/04/2024 08:57 SERUM TRIGLYCERIDE 510 H mg/dL 0 - 150 11/27/2023 10:19 SERUM TRIGLYCERIDE 251 H mg/dL 0 - 150 04/14/2023 08:41 SERUM TRIGLYCERIDE 421 H mg/dL 0 - 150 02/06/2025 08:56 SERUM HDL CHOLESTEROL 34 L mg/dL Ref: >=40 09/13/2024 07:33 SERUM HDL CHOLESTEROL 31 L mg/dL 40 - 60 02/23/2024 09:11 SERUM HDL CHOLESTEROL 38 L mg/dL 40 - 60 01/04/2024 08:57 SERUM HDL CHOLESTEROL 31 L mg/dL 40 - 60 11/27/2023 10:19 SERUM HDL CHOLESTEROL 33 L mg/dL 40 - 60 04/14/2023 08:41 SERUM HDL CHOLESTEROL 31 L mg/dL 40 - 60 02/06/2025 08:56 SERUM LDL calculated Reflex to dLDL mg/dL 0 - 129 09/13/2024 07:33 SERUM LDL calculated 73 mg/dL 0 - 129 02/23/2024 09:11 SERUM LDL calculated 59 mg/dL 0 - 129 01/04/2024 08:57 SERUM LDL calculated Reflex to dLDL mg/dL 0 - 129 11/27/2023 10:19 SERUM LDL calculated 96 mg/dL 0 - 129 04/14/2023 08:41 SERUM LDL calculated Reflex to dLDL mg/dL 0 - 129 02/06/2025 08:56 SERUM CHOL/HDL 6.7 09/13/2024 07:33 SERUM CHOL/HDL 5.0 02/23/2024 09:11 SERUM CHOL/HDL 3.8 01/04/2024 08:57 SERUM CHOL/HDL 5.4 11/27/2023 10:19 SERUM CHOL/HDL 5.4 04/14/2023 08:41 SERUM CHOL/HDL 5.4 02/06/2025 08:56 SERUM AMYLASE 125 U/L 25 - 125 02/06/2025 08:56 SERUM LIPASE 50 U/L 0 - 60 LAB TESTS SELECTED Collection DT Specimen Test Name Result Units Ref Range 02/06/2025 08:56 BLOOD !! HEMOGLOBIN A1C 7.2 H % 4.0 - 5.6 12/15/2024 09:34 BLOOD !! HEMOGLOBIN A1C 5.8 H % 4.0 - 5.6 09/19/2024 08:34 BLOOD !! HEMOGLOBIN A1C 5.7 H % 4.0 - 5.6 09/13/2024 07:33 BLOOD !! HEMOGLOBIN A1C 5.8 H % 4.0 - 5.6 02/23/2024 09:11 BLOOD !! HEMOGLOBIN A1C 6.4 H % 4.0 - 5.6 11/25/2023 07:00 BLOOD !! HEMOGLOBIN A1C 6.6 H % 4.0 - 5.6 04/14/2023 08:41 BLOOD !! HEMOGLOBIN A1C 6.0 H % 4.0 - 5.6 !! Indicates COMMENTS AVAILABLE...Refer to Interim Lab Report. LAB MICROBIOLOGY Collected: 06/03/2023 12:35 Acc: [id number] Collection Sample: SWAB Site/Specimen: LEFT EAR Comment on Specimen: L EAR Test(s) ordered: GRAM STAIN([facility]), CULTURE,WOUND([facility]) Bact Report: FINAL Organism: KLEBSIELLA PNEUMONIAE Quantity: MODERATE Susceptible to: AMIKACIN, AMOX/CLAV, CEFAZOLIN, CIPROFLOXACIN, GENTAMICIN, IMIPENEM, LEVOFLOXACIN, TETRACYCLINE, TOBRAMYCIN, TRIM/SULF Resistant to: AMPICILLIN Organism: STENOTROPHOMONAS MALTOPHILIA Quantity: MODERATE TRIM/SULF=S,GENTAMICIN=S,GEORGE CYCLINE=S Susceptible to: LEVOFLOXACIN, TOBRAMYCIN Remarks: CEFOXITIN=S,CEFEPIME=S,SULB/A MP=S,CEFUROXIME=S, MINOCYCLINE=S,PIP/TAZO=S,ERTA PENEM=S,MEROPENEM=S WITH LIGHT GROWTH OF MIXED SKIN DU NO FURTHER WORKUP Gram: RARE EPITHELIAL CELLS RARE GRAM POSITIVE COCCI IN PAIRS RARE POSITIVE RODS RARE GRAM NEGATIVE RODS Collected: 06/03/2023 12:35 Acc: MIWRO [id number] Collection Sample: EXUDATE Site/Specimen: LEFT EAR Comment on Specimen: L EAR Test(s) ordered: CULTURE,MYCOLOGY () Mycology Report: FINAL Remarks: NO FUNGUS ISOLATED AFTER 4 WEEKS LAB CUMULATIVE SELECTED 2 Collection DT Spec mALB/Cr 03/01/2025 11:49 URINE 57.0 H 02/06/2025 08:56 URINE 169.4 H 09/20/2024 09:25 URINE 12.4 04/05/2024 08:13 URINE 70.7 H 02/23/2024 09:11 URINE 22.3 01/04/2024 08:57 URINE 218.7 H 04/14/2023 08:41 URINE 23.4 Liver Function Tests Collection DT Spec AST ALT ALK LEIDY ALBUMIN T BILI T. PROT 02/06/2025 08:56 SERUM 27 37 35 L 4.0 0.3 7.2 02/23/2024 09:11 SERUM 45 H 54 29 L 3.7 0.3 6.3 01/04/2024 08:57 SERUM 29 L 3.8 11/27/2023 10:19 SERUM 29 42 26 L 4.2 0.7 7.2 04/14/2023 08:41 SERUM 19 20 29 L 3.8 0.2 7.2 09/12/2022 07:32 SERUM 19 21 24 L 4.2 0.5 7.3 03/06/2022 08:08 SERUM 15 16 27 L 3.8 0.3 6.9 09/10/2021 08:27 SERUM 31 41 47 3.6 0.4 7.1 03/11/2021 09:29 SERUM 27 32 44 4.0 0.8 7.1 05/25/2020 11:11 SERUM 23 30 44 4.0 0.4 7.0 03/22/2019 07:32 SERUM 36 H 60 H 28 L 3.8 0.4 6.9 08/25/2018 07:39 SERUM 21 20 42 4.1 0.4 7.4 02/18/2018 08:11 SERUM 17 11/16/2017 08:43 SERUM 21 20 46 4.0 0.4 7.4 03/06/2017 07:46 SERUM 22 23 47 4.0 0.4 7.0 07/09/2016 07:57 SERUM 24 23 58 4.2 0.3 7.3 11/26/2015 11:01 SERUM 30 38 36 L 3.4 L 0.3 6.5 12/01/2014 08:18 SERUM 26 34 44 3.9 0.4 7.5 /es/ ALFREDO SANDERS M.D. ORBITREAD OPERATOR EXPORT MANAGER Signed: 03/07/2025 12:34 Receipt Acknowledged By: 03/07/2025 12:48 /es/ AUSTIN BALDWIN PA-C STAFF PHYSICIAN PARBOILER 03/07/2025 12:40 /es/ Giovana Newman, PharmD Clinical Pharmacy Practitioner ALFREDO SANDERS [facility]
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
--- OUTSIDE RECORDS SUMMARY | 2025-03-14 06:00 | XMS_ITS | Encounter Summary ---
Author Name [facility] [place] Organization [facility] [place] Address [address] [place] [address] Care Team Providers Care Allergist Immunologist Name Role Phone AUSTIN BALDWIN Primary Care [...] PATRICIO ERICKSON Nov 14, 2024 PATRICIO MULLIGAN [id number] NICOLE,A NALLELY PATIENT [facility] MEDICAID MEDICAID MEDIC AID Oct 05, 2016 MEDICAI D [id number] NICOLE,A NALLELY PATIENT MEDICAID MEDICAID [facility] STAND BEATRICE Oct 05, 2014 MEDICAI D [id number] NICOLE,A NALLELY PATIENT MEDICARE (WNR) MEDICARE (M) PART A May 05, 2018 PART A [id number] [phone] 2 Dougie RIVERA NALLELY PATIENT MEDICARE (WNR) MEDICARE (M) PART B May 05, 2018 PART B [id number] NICOLEDougie PATIENT Selected Encounter This section includes the information on record at [place] for the Encounter. Date/Time Encounter Type Encounter Description Reason Provider Source Mar 14, 2025 10:00 AM CPTRZ OPH DX IMG PST SGM RTA OPTOMETRY ICD-10-CM E11.9 Type 2 diabetes mellitus without complications OMER JARVIS IHE Encounter Template Text not used by [place] Assessments - Encounter Diagnoses This section includes the primary and secondary diagnoses documented for the Encounter. Date/Time Primary/Secondary Diagnosis Diagnosis Name Provider Source Mar 14, 2025 09:52 AM PRIMARY Type 2 diabetes mellitus without complications OMER JARVIS [place] [facility] [place] [facility] Plan of Treatment: Future Appointments [...] AMBULATORY - NONE [place] [facility] [place] [facility] Mar 31, 2025 01:00 PM AMBULATORY - MEDICINE DE C [facility] [place] [facility] Apr 13, 2025 09:00 AM AMBULATORY - NONE [place] [facility] Apr 20, 2025 09:00 AM AMBULATORY - NONE [place] [facility] Apr 21, 2025 09:00 AM AMBULATORY - MEDICINE [facility] Apr 21, 2025 09:15 AM AMBULATORY - MEDICINE [place] [facility] [facility] Apr 24, 2025 01:00 PM AMBULATORY - MEDICINE [place] [facility] [facility] Apr 27, 2025 09:00 AM AMBULATORY - NONE [place] [facility] May 04, 2025 09:00 AM AMBULATORY - NONE [facility] May 05, 2025 01:30 PM AMBULATORY - MEDICINE [facility] May 11, 2025 09:00 AM AMBULATORY - NONE [place] [facility] May 18, 2025 09:00 AM AMBULATORY - MEDICINE [facility] May 18, 2025 09:05 AM AMBULATORY - NONE [facility] May 22, 2025 08:30 AM AMBULATORY - SURGERY [place] CN TRL [facility] [facility] May 25, 2025 09:00 AM AMBULATORY - NONE [facility] Jun 01, 2025 09:00 AM AMBULATORY - NONE [facility] Jun 15, 2025 08:30 AM [facility]ORY - MEDICINE [place] [place] Jun 30, 2025 01:00 PM AMBULATORY - MEDICINE [place] Aug 08, 2025 08:30 AM AMBULATORY - MEDICINE [place] C [place] [facility] Aug 10, 2025 10:00 AM AMBULATORY - MEDICINE DE C NTRL [facility] Active, Pending, and Scheduled Orders This section includes a listing of several types of active, pending, and scheduled orders, including clinic medications orders, diagnostic test orders, procedure orders and consult orders; where the start date of the order is 45 days before the date of the Encounter or 45 days after the date of theEncounter. The data comes from all [place] treatment facilities. Test Date/Time Test Type Test Details Facility Name Mar 14, 2025 10:24 AM Consult Order COMMUNITY CARE-RETINAL SPECIALIST Cons Emergency Medicine Physician Assistant's Choice [facility] Lab Results: +/- 30 days [...] Type Comment March 01, 2025 11:50 AM [facility] CYSTATIN C CREATININE EGFR PANEL ([facility]) SERUM Specimen Type: SERUM No comment entered. Ordering Provider: TAMI SANDERS Report Released Date/Time: February 09, 2025 07:59 AM Reporting Lab: [address] [address] Performing Lab: [address] [address] eGFR(CREAT-CYSTATIN C) 66 mL/min >=60 CREATININE,SERUM([facility]) 1.13 mg/dL 0.5-1.5 CYSTATIN C (V) 1.24 mg/L H 0.51-1.05 March 01, 2025 11:49 AM [facility] MICROALBUMIN CREATININE RATIO PANEL URINE Spe cimen Type: URINE No comment entered. Ordering Provider: ALFREDO SANDERS Report Released Date/Time: Oct 18, 2024 09:03 AM Reporting Lab: [facility] [address] [facility] [address] Performing Lab: [facility] [address] [facility] [address] MICROALBUMIN/CREATININE RATIO 57.0 mg/g H 0-29.9 MICROALBUMIN,QUANTITATIVE 5.2 mg/dL RR U NAVAIL CREATININE URINE 91.26 mg/dL 63-166 March 01, 2025 11:49 AM [facility] FERRITIN SERUM Specimen Type: SERUM No comment entered. Ordering Provider: ALFREDO SANDERS Report Released Date/Time: Oct 18, 2024 09:03 AM Reporting Lab: [facility] [address] [facility] [address] Performing Lab: [facility] [address] [facility] [address] FERRITIN 140.5 ng/mL 21.8-274.7 March 01, 2025 11:49 AM [facility] BASIC METABOLIC PANEL (non-fasting) SERUM Spe cimen Type: SERUM No comment entered. Ordering Provider: ALFREDO SANDERS Report Released Date/Time: Oct 18, 2024 09:03 AM Reporting Lab: [facility] [address] [facility] [address] Performing Lab: [facility] [address] [facility] [address] UREA NITROGEN 11 mg/dL 8-26 GLUCOSE 151 mg/dL H 65-100 SODIUM 136 mmol/L 136-145 POTASSIUM 4.4 mmol/L 3.5-5.1 CHLORIDE 102 mmol/L 98-107 CO2 25 meq/L 23-31 CALCIUM 8.7 mg/dL L 8.8-10 CREATININE, Serum 1.18 mg/dL 0.72-1.25 eGFR(CKD-EPI 2020) 69 mL/min >60 March 01, 2025 11:49 AM [facility] IRON & TIBC PANEL SERUM Specimen Type: SERUM No comment entered. Ordering Provider: ALFREDO SANDERS Report Released Date/Time: Oct 18, 2024 09:03 AM Reporting Lab: [address] [address] Performing Lab: [address] [address] TIBC 383 ug/dL 204-475 IRON 91 ug/dL 65-175 Transferrin Saturation 23.8 15-45 Transferrin (TRF) 290 mg/dL 180-382 March 01, 2025 11:49 AM [facility] CBC BLOOD Specimen Type: BLOOD No comment entered. Ordering Provider: ALFREDO SANDERS Report Released Date/Time: Oct 18, 2024 09:03 AM Reporting Lab: [facility] [address] [facility] [address] Performing Lab: [address] [address] WBC 9.50 10*3/uL 4.50-11.00 RBC 4.98 10*6/uL [...] 12:53 PM VA-TOBACCO USE FOR EMERALD CIGARETTES [facility] Tobacco Use History This section includes a history of the smoking, or tobacco-related health factors, that were collected on or before the date of the Encounter. The data comes from the [place] facility where the Encounter took place. Date/Time Smoking Status/Tobacco Use Comment F acility March 01, 2025 12:53 PM VA-TOBACCO USE SOME DAYS ENDS [facility] March 01, 2025 12:53 PM VA-TOBACCO USE BETY E DAYS OTHER TYPE [facility] Advance Directives: All historical and [...] Encounter Note(s) Provider Source Mar 14, 2025 09:47 AM OPTOMETRY CONSULT: LOCAL TITLE: CONSULT REPORT/OPTOMETRY/MATHEUS(T ) STANDARD TITLE: OPTOMETRY CONSULT DATE OF NOTE: MAR 14, 2025@09:47 ENTRY DATE: MAR 14, 2025@09:47:29 AUTHOR: POLLY JARVIS COSIGNER: URGENCY: STATUS: COMPLETED Active Problems: Active Problem Pain of right lower leg M79.661 03/01/2025 AUSTIN BALDWIN Type 2 diabetes mellitus E11.9 03/01/2025 AUSTIN BALDWIN Steatosis of liver K76.0 12/24/2023 AUSTIN BALDWIN Anxiety F41.9 11/24/2023 DESIRE MIRELES Cannabis dependence F12.288 11/24/2023 DESIRE MIRELES Bronchospasm J98.01 11/04/2023 AUSTIN BALDWIN Obstructive Sleep Apnea of Adult (S 10/20/2023 FRED,GUNNAR Panic attack F41.0 08/25/2023 AUSTIN BALDWIN Malignant otitis externa H60.20 06/17/2023 JACK IBARRAARIO Hypertension I10. 03/09/2023 AUSTIN BALDWIN Exposure to [...] BALDWIN Chronic kidney disease stage 3 N18. 03/07/2025 AUSTIN BALDWIN EKG axis finding R69. 11/26/2015 AUSTIN BALDWIN Carpal tunnel syndrome 354.0 12/16/2013 AUSTIN BALDWIN Fracture of ankle 824.8 12/16/2013 AUSTIN BALDWIN Panic attack F41.0 11/26/2015 AUSTIN BALDWIN Colonoscopy normal 799.9 04/10/2015 AUSTIN BALDWIN Active Medications (VA): Active Outpatient Medications (including Supplies): Active Outpatient [...] MOUTH ONCE ACTIVE DAILY 22 Total Medications Active Medications (non-VA prescribed): Allergies: CODEINE, OXYCODONE S: Patient with a complaint of mild distorted vision of the past few months duration OD and type 2 diabetes is in for macular OCT. O: Macular OCT was run by tractor technician. A: Both scans exhibit normal macular and foveal thickness and contour without edema or hemorrhage OU. History of type 2 diabetes without macular involvement. P: Follow-up as scheduled for today. /karlene/ POLLY JARVIS OD STAFF CASHIER SELF SERVICE GASOLINE Signed: 03/14/2025 09:52 POLLY JARVIS CNTRL [facility]
--- OUTSIDE RECORDS SUMMARY | 2025-03-14 06:15 | XMS_ITS | Encounter Summary ---
Author Name [facility] [place] Address [address] [place] [address] Care Team Providers Care Health Type Technician Name Role Phone AUSTIN BALDWIN Primary [...] Relationship to Policy Lomas PATRICIO MULLIGAN-WN R [place] SPECIAL CLASS PATRICIO ERICKSON Nov 14, 2024 PATRICIO MULLIGAN [id number] NICOLE,A NALLELY PATIENT [facility] MEDICAID MEDICAID MEDIC AID Oct 05, 2016 MEDICAI D [id number] NICOLE,A NALLELY PATIENT MEDICAID MEDICAID [facility] STAND BEATRICE Oct 05, 2014 MEDICAI D [id number] NICOLE,A NALLELY PATIENT MEDICARE (WNR) MEDICARE (M) PART A May 05, 2018 PART A [id number] NICOLE,A NALLELY PATIENT MEDICARE (WNR) MEDICARE (M) PART B May 05, 2018 PART B [id number] [phone] Dougie RIVERA PATIENT Selected Encounter This section includes the information on record at [place] for the Encounter. Date/Time Encounter Type Encounter Description Reason Provider Source Mar 14, 2025 10:15 AM FUNDUS PHOTOGRAPHY W/I&R OPTOMETRY ICD-10-CM H35.9 Unspecified retinal disorder OMER JARVIS IHE Encounter Template Text not used by [place] Assessments - Encounter Diagnoses This section includes the primary and secondary diagnoses documented for the Encounter. Date/Time Primary/Secondary Diagnosis Diagnosis Name Provider Source Mar 14, 2025 10:53 AM PRIMARY Unspecified retinal disorder POLLY JARVIS [place] [facility] [place] [facility] Plan of Treatment: Future Appointments (+ 6 months) and Future Tests (+/- 45 days) The Plan of Treatment section includes future care activities for the patient from all [place] treatmentfacilities. This section includes future appointments and future orders which are active, pending or scheduled. Future Appointments This section includes appointments that were scheduled to occur 6 months from the date of the Encounter, up to a maximum of 20 appointments. The data comes from all [place] treatment facilities. Appointment Date/Time Appointment Type Appointme nt Facility Name Mar 27, 2025 09:15 AM AMBULATORY - NONE [facility] [place] [facility] Mar 31, 2025 01:00 PM AMBULATORY - MEDICINE [place] C [facility] [place] [facility] Apr 13, 2025 09:00 AM AMBULATORY - NONE [facility] Apr 20, 2025 09:00 AM AMBULATORY - NONE [place] [facility] Apr 21, 2025 09:00 AM AM[facility]ULATORY - MEDICINE [facility] Apr 21, 2025 09:15 AM AMBULATORY - MEDICINE [place] C [place] [facility] Apr 24, 2025 01:00 PM AMBULATORY - MEDICINE [place] C [place] [place] [facility] Apr 27, 2025 09:00 AM AMBULATORY - NONE [place] [facility] May 04, 2025 09:00 AM AMBULATORY - NONE [facility] May 05, 2025 01:30 PM AMBULATORY - MEDICINE [facility] May 11, 2025 09:00 AM AMBULATORY - NONE [facility] May 18, 2025 09:00 AM AM[facility]ULATORY - MEDICINE [facility] May 18, 2025 09:05 AM AMBULATORY - NONE [facility] May 22, 2025 08:30 AM AMBULATORY - SURGERY [facility] May 25, 2025 09:00 AM AM[facility]ORY - NONE [facility] Jun 01, 2025 09:00 AM AMBULATORY - NONE [facility] Jun 15, 2025 08:30 AM AM[facility]ORY - MEDICINE [place] [place] Jun 30, 2025 01:00 PM AMBULATORY - MEDICINE [place] Aug 08, 2025 08:30 AM AMBULATORY - MEDICINE [place] [facility] Aug 10, 2025 10:00 AM AMBULATORY - [facility]ICINE [place] [facility] Active, Pending, and Scheduled Orders This section includes a listing of several types of active, pending, and scheduled orders, including clinic medications orders, diagnostic test orders, procedure orders and consult orders; where the start date of the order is 45 days before the date of the Encounter or 45 days after the date of theEncounter. The data comes from all [place] treatment facilities. Test Date/Time Test Type Test Details Facility Name Mar 14, 2025 10:24 AM Consult Order COMMUNITY CARE-RETINAL SPECIALIST Cons Area Cleaner's Choice [facility] Lab Results: +/- 30 days of the encounter This section includes the Chemistry and Hematology Lab Results on record with [place] for the patient. Radiology Reports and Pathology Reports are provided separately, in subsequent sections. Lab Results This section contains the Chemistry/Hematology Results that were resulted 30 days before or 30 daysafter the date of the Encounter. Date/Time Source Result Type Result - Unit Interpretation Reference Range Specimen Type Comment March 01, 2025 11:50 AM [facility] CYSTATIN C CREATININE EGFR PANEL ([facility]) SERUM Specimen Type: SERUM No comment entered. Ordering Provider: TAMI SANDERS Report Released Date/Time: February 09, 2025 07:59 AM Reporting Lab: [address] [address] Performing Lab: [address] [address] eGFR(CREAT-CYSTATIN C) 66 mL/min >=60 CREATININE,SERUM([facility]) 1.13 mg/dL 0.5-1.5 CYSTATIN C ([facility]) 1.24 mg/L H 0.51-1.05 March 01, 2025 11:49 AM [facility] MICROALBUMIN CREATININE RATIO PANEL URINE Spe cimen Type: URINE No comment entered. Ordering Provider: ALFREDO SANDERS Report Released Date/Time: Oct 18, 2024 09:03 AM Reporting Lab: [facility] [address] [address] Performing Lab: [facility] [address] [address] MICROALBUMIN/CREATININE RATIO 57.0 mg/g H 0-29.9 MICROALBUMIN,QUANTITATIVE 5.2 mg/dL RR U NAVAIL CREATININE URINE 91.26 mg/dL 63-166 March 01, 2025 11:49 AM [facility] FERRITIN SERUM Specimen Type: SERUM No comment entered. Ordering Provider: ALFREDO SANDERS Report Released Date/Time: Oct 18, 2024 09:03 AM Reporting Lab: [facility] [address] [facility] [address] Performing Lab: [facility] [address] [address] FERRITIN 140.5 ng/mL 21.8-274.7 March 01, 2025 11:49 AM [facility] BASIC METABOLIC PANEL (non-fasting) SERUM Spe cimen Type: SERUM No comment entered. Ordering Provider: ALFREDO SANDERS Report Released Date/Time: Oct 18, 2024 09:03 AM Reporting Lab: [facility] [address] [address] Performing Lab: [facility] [address] [address] UREA NITROGEN 11 mg/dL 8-26 GLUCOSE 151 mg/dL H 65-100 SODIUM 136 mmol/L 136-145 POTASSIUM 4.4 mmol/L 3.5-5.1 CHLORIDE 102 mmol/L 98-107 CO2 25 meq/L 23-31 CALCIUM 8.7 mg/dL L 8.8-10 CREATININE, Serum 1.18 mg/dL 0.72-1.25 eGFR(CKD-EPI 2020) 69 mL/min >60 March 01, 2025 11:49 AM [facility] IRON & TIBC PANEL SERUM Specimen Type: SERUM No comment entered. Ordering Provider: ALFREDO SANDERS Report Released Date/Time: Oct 18, 2024 09:03 AM Reporting Lab: [facility] [address] [address] Performing Lab: [facility] [address] [facility] [address] TIBC 383 ug/dL 204-475 IRON 91 ug/dL 65-175 Transferrin Saturation 23.8 15-45 Transferrin (TRF) 290 mg/dL 180-382 March 01, 2025 11:49 AM [facility] CBC BLOOD Specimen Type: BLOOD No comment entered. Ordering Provider: ALFREDO SANDERS Report Released Date/Time: Oct 18, 2024 09:03 AM Reporting Lab: [facility] [address] [address] Performing Lab: [address] [address] WBC 9.50 10*3/uL 4.50-11.00 RBC 4.98 10*6/uL [...] and tobacco- related health factors from the [place] facility where the Encounter took place. Current Smoking Status This section includes the most current smoking, or tobacco-related health factor, from the [place] facility where the Encounter took place. Date/Time Current Smoking Status Comment Michela seals March 01, 2025 12:53 PM VA-TOBACCO USE FOR EMERALD CIGARETTES [facility] Tobacco Use History This section includes a history of the smoking, or tobacco-related health factors, that were collected on or before the date of the Encounter. The data comes from the [place] facility where the Encounter took place. Date/Time Smoking Status/Tobacco Use Comment F acility March 01, 2025 12:53 PM VA-TOBACCO USE SOME DAYS ENDS [facility] March 01, 2025 12:53 PM VA-TOBACCO USE BETY E DAYS OTHER TYPE [facility] Advance Directives: All historical and current Section Date Range: From patient's date of to the date document was created. This section includes ALL of a patient's completed or amended [place] Advance and Rescinded Directives. The entries below indicate that a directive exists for the patient, but an actual copy is not included with this document. The data comes from all [place] facilities. Date Advance Directives Provider Source Dec 12, 2014 ADVANCE DIRECTIVE KATRIN GREEN Encounter Notes: All associated encounter notes This section contains the clinical notes associated to the Encounter. Date/Time Encounter Note(s) Provider Source Mar 14, 2025 09:48 AM OPTOMETRY CONSULT: LOCAL TITLE: CONSULT REPORT/OPTOMETRY/MATHEUS(T ) STANDARD TITLE: OPTOMETRY CONSULT DATE OF NOTE: MAR 14, 2025@09:48 ENTRY DATE: MAR 14, 2025@09:48:37 AUTHOR: POLLY JARVIS EXP COSIGNER: URGENCY: STATUS: COMPLETED Active Problems: Active [...] AUSTIN BALDWIN Nicotine dependence Z72.0 12/28/2017 [facility] Secondary polycythemia R69. 10/23/2016 AUSTIN BALDWIN Calculus [...] DAILY Indication: DIABETES Active Non-VA Medications Status = 1) Non-VA ACETAMINOPHEN TAB BY MOUTH ACTIVE [...] OXYCODONE S: Patient with a complaint of distorted vision OD of past 2 months duration and history of type 2 diabetes is in for posterior Pole photographs. O: Posterior Pole photographs were taken by endoscopy technician. A: OD exhibited preretinal fibrotic scar inferior nasal at the posterior pole with edema extending to the optic nerve and around the nerve. OS fundus photos were completely within normal limits. Patient history of semaglutide treatment with discontinuance by the patient about 3 months ago secondary to complaints of nausea. P: Follow-up is scheduled for today. Ordered consult to [facility] for OD retina evaluation with subjective patient complaints of distorted vision. The patient will return in 6 months or sooner if any problems arise. /karlene/ POLLY JARVIS OD STAFF AUTO BRAKE TECHNICIAN Signed: 03/14/2025 10:53 POLLY JARVIS [facility]
--- OUTSIDE RECORDS SUMMARY | 2025-03-20 11:15 | XMS_ITS ---
Author Name [facility] [place] [facility] [place] Address [address] [place] [address] Care Team Providers Care Communication Center Coordinator Name Role Phone AUSTIN BALDWIN Primary [...] Relationship to Policy Lomas PATRICIO MULLIGAN-ESME R [place] SPECIAL [place] PATRICIO ERICKSON Nov 14, 2024 PATRICIO MULLIGAN [id number] NICOLE,A NALLELY PATIENT [facility] MEDICAID MEDICAID MEDIC AID Oct 05, 2016 MEDICAI D [id number] NICOLE,A NALLELY PATIENT MEDICAID MEDICAID [facility] ST[facility] Oct 05, 2014 MEDICAI D [id number] NICOLE,Dougie NALLELY PATIENT MEDICARE (WNR) MEDICARE (M) PART B May 05, 2018 PART B [id number] Dougie RIVERA NALLELY PATIENT MEDICARE (WNR) MEDICARE (M) PART A May 05, 2018 PART A [id number] [phone] Dougie YUNG PATIENT Selected Encounter This section includes the information on record at [place] for the Encounter. Date/Time Encounter Type Encounter Description Reason Pro vider Source Mar 20, 2025 03:15 PM Outpatient Encounter ADMIN PAT ACTIVTIES (MASNONCT) IHE Encounter Template Text not used by [place] Plan of Treatment: Future Appointments (+ 6 [...] AMBULATORY - NONE [facility] [place] [facility] Mar 31, 2025 01:00 PM AMBULATORY - MEDICINE [facility] [place] [facility] Apr 13, 2025 09:00 AM AM[facility]ATORY - NONE [facility] [facility] Apr 20, 2025 09:00 AM AMBULATORY - NONE [facility] Apr 21, 2025 09:00 AM [facility]IC[facility] Apr 21, 2025 09:15 AM AMBULATORY - MEDICINE [place] [facility] [facility] Apr 24, 2025 01:00 PM AMBULATORY - MEDICINE [facility] [place] [facility] Apr 27, 2025 09:00 AM AMBULATORY - NONE [place] [facility] May 04, 2025 09:00 AM AMBULATORY - NONE [place] [facility] May 05, 2025 01:30 PM [facility]ORY - MEDICINE [place] [place] May 11, 2025 09:00 AM AMBULATORY - NONE [facility] May 18, 2025 09:00 AM AM[facility]ATORY - MEDICINE [place] May 18, 2025 09:05 AM AMBULATORY - NONE [place] [facility] May 22, 2025 08:30 AM AMBULATORY - SURGERY [facility] [place] [facility] May 25, 2025 09:00 AM AMBULATORY - NONE [facility] Jun 01, 2025 09:00 AM AMBULATORY - NONE [facility] Jun 15, 2025 08:30 AM [facility]ORY - MEDICINE [place] Jun 30, 2025 01:00 PM AM[facility]ULATORY - MEDICINE [facility] Aug 08, 2025 08:30 AM [facility] Aug 10, 2025 10:00 AM AMBULATORY - MEDICINE [facility] Active, Pending, and Scheduled Orders This section [...] AM Consult Order COMMUNITY CARE-RETINAL SPECIALIST Cons Contact Printer Dry Film's Choice [facility] Lab Results: +/- 30 days of [...] Type Comment March 01, 2025 11:50 AM [facility] CYSTATIN C CREATININE EGFR PANEL ([facility]) SERUM Specimen Type: SERUM No comment entered. Ordering Provider: TAMI SANDERS Report Released Date/Time: February 09, 2025 07:59 AM Reporting Lab: [address] [address] Performing Lab: [address] [address] eGFR(CREAT-CYSTATIN C) 66 mL/min >=60 CREATININE,SERUM([facility]) 1.13 mg/dL 0.5-1.5 CYSTATIN C ([facility]) 1.24 mg/L H 0.51-1.05 March 01, 2025 11:49 AM [facility] MICROALBUMIN CREATININE RATIO PANEL URINE Spe cimen Type: URINE No comment entered. Ordering Provider: ALFREDO SANDERS Report Released Date/Time: Oct 18, 2024 09:03 AM Reporting Lab: [facility] [address] [address] Performing Lab: [facility] [address] [address] MICROALBUMIN/CREATININE RATIO 57.0 mg/g H 0-29.9 MICROALBUMIN,QUANTITATIVE 5.2 mg/dL RR U NAVAIL CREATININE URINE 91.26 mg/dL 63-166 March 01, 2025 11:49 AM [facility] FERRITIN SERUM Specimen Type: SERUM No comment entered. Ordering Provider: ALFREDO SANDERS Report Released Date/Time: Oct 18, 2024 09:03 AM Reporting Lab: [facility] [address] [address] Performing Lab: [address] [address] FERRITIN 140.5 ng/mL 21.8-274.7 March 01, 2025 11:49 AM [facility] BASIC METABOLIC PANEL (non-fasting) SERUM Spe cimen Type: SERUM No comment entered. Ordering Provider: ALFREDO SANDERS Report Released Date/Time: Oct 18, 2024 09:03 AM Reporting Lab: [address] [address] Performing Lab: [address] [address] UREA NITROGEN 11 mg/dL 8-26 GLUCOSE 151 mg/dL H 65-100 SODIUM 136 mmol/L 136-145 POTASSIUM 4.4 mmol/L 3.5-5.1 CHLORIDE 102 mmol/L 98-107 CO2 25 meq/L 23-31 CALCIUM 8.7 mg/dL L 8.8-10 CREATININE, Serum 1.18 mg/dL 0.72-1.25 eGFR(CKD-EPI 2020) 69 mL/min >60 March 01, 2025 11:49 AM [facility] IRON & TIBC PANEL SERUM Specimen Type: SERUM No comment entered. Ordering Provider: ALFREDO SANDERS Report Released Date/Time: Oct 18, 2024 09:03 AM Reporting Lab: [facility] [address] [address] Performing Lab: [facility] [address] [address] TIBC 383 ug/dL 204-475 IRON 91 ug/dL 65-175 Transferrin Saturation 23.8 15-45 Transferrin (TRF) 290 mg/dL 180-382 March 01, 2025 11:49 AM [facility] CBC BLOOD Specimen Type: BLOOD No comment entered. Ordering Provider: ALFREDO SANDERS Report Released Date/Time: Oct 18, 2024 09:03 AM Reporting Lab: [address] [address] Performing Lab: [address] [address] WBC 9.50 10*3/uL 4.50-11.00 RBC 4.98 10*6/uL [...] Date/Time Current Smoking Status Comment Michela ity March 01, 2025 12:53 PM VA-TOBACCO USE FOR EMERALD CIGARETTES [facility] Tobacco Use History This section includes a history of the smoking, or tobacco-related health factors, that were collected on or before the date of the Encounter. The data comes from the [place] facility where the Encounter took place. Date/Time Smoking Status/Tobacco Use Comment F acility March 01, 2025 12:53 PM VA-TOBACCO USE SOME DAYS ENDS [facility] March 01, 2025 12:53 PM VA-TOBACCO USE BETY E DAYS OTHER TYPE [facility] Advance Directives: All historical and current [...] Encounter. Date/Time Encounter Note(s) Provider Source Mar 20, 2025 03:15 PM PHARMACY NOTE: LOCAL TITLE: PHARMACY CUSTOMER CARE MEDICATION RENEWAL STANDARD TITLE: PHARMACY NOTE DATE OF NOTE: MAR 20, 2025@15:15 ENTRY DATE: MAR 20, 2025@15:15:28 AUTHOR: CHAD MA EXP COSIGNER: URGENCY: STATUS: COMPLETED Date: Mar Division: [place] Pt referred by Pharmacy Call Center for medication renewal: Non-controlled/maintenanc e medication Medications requested: [id number] OMEPRAZOLE 20MG EC CAP Defer to primary care provider To be mailed. Please review and renew if appropriate. *This note was generated by [facility] Pharmacy Customer Care. If you have any questions or need assistance, do not contact this author. Please refer all questions to your local, on-site pharmacy departments. /karlene/ CHAD MA Order Entry, [place]/Pharmacy Customer Care Signed: 03/20/2025 15:15 Receipt Acknowledged By: 03/20/2025 15:56 /karlene/ Christy Robbins RN Registered Nurse (RN) 03/20/2025 16:19 /karlene/ AUSTIN BALDWIN PA-C STAFF PHYSICIAN JACQUARD PLATE MAKER CHAD MA [facility]
--- OUTSIDE RECORDS SUMMARY | 2025-03-27 05:15 | XMS_ITS ---
[place] MED[facility] [place] Encounter Summary Created on: June 07, 2025 DESTINEEGRACIE OSMANCristy Monsivais : 1960 Sex: Male Author Name [facility] [place] Address [address] [place] [address] Care Team Providers Care Tankroom Worker Name Role Phone AUSTIN BALDWIN Primary [facility] Insurance Providers: All [...] Policy Lomas PATRICIO MULLIGAN-ESME R [place] SPECIAL [facility] PATRICIO ERICKSON Nov 14, 2024 PATRICIO MULLIGAN [id number] Dougie RIVERA PATIENT [facility] MEDICAID MEDICAID MEDIC AID Oct 05, 2016 MEDICAI D [id number] Dougie RIVERA NALLELY PATIENT MEDICAID MEDICAID [facility] STAND BEATRICE Oct 05, 2014 MEDICAI D [id number] Doguie RIVERA NALLELY PATIENT MEDICARE (WNR) MEDICARE (M) PART A May 05, 2018 PART A [id number] [email or web address] Dougie RIVERA PATIENT MEDICARE (WNR) MEDICARE (M) PART B May 05, 2018 PART B [id number] Dougie RIVERA PATIENT Selected Encounter This section includes the information on record at [place] for the Encounter. Date/Time Encounter Type Encounter Description Reason Provider Source Mar 27, 2025 09:15 AM MEDICAL NUTRITION INDIV IN NUTRITION/DIETETIC S-INDIVIDUAL ICD-10-CM E66.812 Obesity, class 2 TAMI OLSON Nancy Encounter Template Text not used by [place] Assessments - Encounter Diagnoses This section includes the primary and secondary diagnoses documented for the Encounter. Date/Time Primary/Secondary Diagnosis Diagnosis Name Provider Source Apr 02, 2025 08:20 PM PRIMARY Obesity, class 2 RAMY OLSON [place] Apr 02, 2025 08:20 PM SECONDARY Body mass index [BMI] 37.0-37.9, adult RAMY OLSON [place] Apr 02, 2025 08:20 PM SECONDARY Dietary counseling and surveillance RAMY OLSON [place] Apr 02, 2025 08:20 PM SECONDARY Type 2 diabetes mellitus without complications RAMY OLSON [place] Plan of Treatment: Future Appointments (+ 6 months) and Future Tests (+/- 45 days) The Plan of Treatment section includes future care activities for the patient [facility] [place] [facility] This section includes future appointments and future orders which are active, pending or scheduled. Future Appointments This section includes appointments that were scheduled to occur 6 months from the date of the Encounter, up to a maximum of 20 appointments. The data comes from all [place] treatment facilities. Appointment Date/Time Appointment Type Appointme nt Facility Name Mar 31, 2025 01:00 PM AMBULATORY - MEDICINE [place] [facility] [place] [facility] Apr 13, 2025 09:00 AM AM[facility]ATORY - NONE [facility] Apr 20, 2025 09:00 AM AMBULATORY - NONE [facility] Apr 21, 2025 09:00 AM [facility]ATORY - MEDICINE [facility] Apr 21, 2025 09:15 AM AMBULATORY - MEDICINE [place] [facility] [place] [facility] Apr 24, 2025 01:00 PM AMBULATORY - MEDICINE [place] [facility] [place] [facility] Apr 27, 2025 09:00 AM AM[facility]ULATORY - NONE [facility] May 04, 2025 09:00 AM AMBULATORY - NONE [facility] May 05, 2025 01:30 PM [facility] May 11, 2025 09:00 AM [facility] - NONE [facility] May 18, 2025 09:00 AM AM[facility]ATORY - MEDICINE [place] [place] May 18, 2025 09:05 AM AM[facility]ATORY - NONE [facility] May 22, 2025 08:30 AM AMBULATORY - SURGERY [facility] [place] [facility] May 25, 2025 09:00 AM AM[facility]ULATORY - NONE [facility] Jun 01, 2025 09:00 AM AM[facility]ULATORY - NONE [facility] Jun 15, 2025 08:30 AM AM[facility]ULATORY - MEDICINE [place] [place] Jun 30, 2025 01:00 PM AMBULATORY - MEDICINE [place] [place] Aug 08, 2025 08:30 AM AMBULATORY - MEDICINE [facility] [place] [facility] Aug 10, 2025 10:00 AM AMBULATORY - MEDICINE [facility] [place] [facility] Sep 04, 2025 10:45 AM [facility] N[facility] Active, Pending, and Scheduled Orders This section [...] AM Consult Order COMMUNITY CARE-RETINAL SPECIALIST Cons [employer] Dies Loader's Choice [facility] Lab Results: +/- 30 [...] Type Comment March 01, 2025 11:50 AM [facility] CYSTATIN C CREATININE EGFR PANEL ([facility]) SERUM Specimen Type: SERUM No comment entered. Ordering Provider: TAMI SANDERS Report Released Date/Time: February 09, 2025 07:59 AM Reporting Lab: [facility] [address] [address] Performing Lab: [facility] [address] [facility] [address] eGFR(CREAT-CYSTATIN C) 66 mL/min >=60 CREATININE,SERUM([facility]) 1.13 mg/dL 0.5-1.5 CYSTATIN C (V) 1.24 mg/L H 0.51-1.05 March 01, 2025 11:49 AM [facility] MICROALBUMIN CREATININE RATIO PANEL URINE Spe cimen Type: URINE No comment entered. Ordering Provider: ALFREDO SANDERS Report Released Date/Time: Oct 18, 2024 09:03 AM Reporting Lab: [address] [address] Performing Lab: [address] [address] MICROALBUMIN/CREATININE RATIO 57.0 mg/g H 0-29.9 MICROALBUMIN,QUANTITATIVE 5.2 mg/dL RR U NAVAIL CREATININE URINE 91.26 mg/dL 63-166 March 01, 2025 11:49 AM [facility] FERRITIN SERUM Specimen Type: SERUM No comment entered. Ordering Provider: ALFREDO SANDRES Report Released Date/Time: Oct 18, 2024 09:03 AM Reporting Lab: [address] [address] Performing Lab: [address] [address] FERRITIN 140.5 ng/mL 21.8-274.7 March 01, 2025 11:49 AM [facility] BASIC METABOLIC PANEL (non-fasting) SERUM Spe cimen Type: SERUM No comment entered. Ordering Provider: ALFREDO SANDERS Report Released Date/Time: Oct 18, 2024 09:03 AM Reporting Lab: [address] [address] Performing Lab: [address] [address] UREA NITROGEN 11 mg/dL 8-26 GLUCOSE 151 mg/dL H 65-100 SODIUM 136 mmol/L 136-145 POTASSIUM 4.4 mmol/L 3.5-5.1 CHLORIDE 102 mmol/L 98-107 CO2 25 meq/L 23-31 CALCIUM 8.7 mg/dL L 8.8-10 CREATININE, Serum 1.18 mg/dL 0.72-1.25 eGFR(CKD-EPI 2020) 69 mL/min >60 March 01, 2025 11:49 AM [facility] CBC BLOOD Specimen Type: BLOOD No comment entered. Ordering Provider: ALFREDO SANDERS Report Released Date/Time: Oct 18, 2024 09:03 AM Reporting Lab: [address] [address] Performing Lab: [address] [address] WBC 9.50 10*3/uL 4.50-11.00 RBC 4.98 10*6/uL 4.23-5.66 HGB 14.4 g/dL 12.8-17 HCT 43.4 39.2-50.4 MCV 87.1 fL 82-99 MCHC 33.2 g/dL 30.8-35.1 PLT 288 10*3/uL 140-360 MPV 10.9 fL 9.2-12.4 RDW-CV 13.1 12.0-16.0 MCH 28.9 pg 26.2-32.6 March 01, 2025 11:49 AM [facility] IRON & TIBC PANEL SERUM Specimen Type: SERUM No comment entered. Ordering Provider: ALFREDO SANDERS Report Released Date/Time: Oct 18, 2024 09:03 AM Reporting Lab: [facility] [address] [facility] [address] Performing Lab: [address] [address] TIBC 383 ug/dL 204-475 IRON 91 ug/dL 65-175 Transferrin Saturation 23.8 15-45 Transferrin (TRF) 290 mg/dL 180-382 Social History: Smoking Status (Most current) and [...] AM VA-TOBACCO USE 30 YEARS OR MORE [place] Tobacco Use History This section includes a history of the smoking, or tobacco-related health factors, that were collected on or before the date of the Encounter. The data comes from the [place] facility where the Encounter took place. Date/Time Smoking Status/Tobacco Use Comment F acility Dec 16, 2023 10:00 AM VA-TOBACCO USE > 1 5 LESS THAN 30 YEARS [place] Dec 16, 2023 10:00 AM VA-TOBACCO USE 30 YEARS OR MORE [place] Dec 16, 2023 10:00 AM VA-TOBACCO USE ADVICE [place] Dec 16, 2023 10:00 AM VA-TOBACCO USE HANDKERCHIEF FOLDER NO [place] Dec 16, 2023 10:00 AM VA-TOBACCO USE HANDKERCHIEF FOLDER YES [place] Dec 16, 2023 10:00 AM VA-TOBACCO USE MED NO [place] Dec 16, 2023 10:00 AM VA-TOBACCO USE MED YES [place] Dec 16, 2023 10:00 AM VA-TOBACCO USE WI 30 MIN OF WAKEUP [place] Dec 16, 2023 10:00 AM VA-TOBACCO USER EVERY DAY [place] Jan 13, 2023 02:00 PM VA-TOBACCO USE 1 T O < 5 YEARS [place] Jan 13, 2023 02:00 PM VA-TOBACCO USE ADVICE [place] Jan 13, 2023 02:00 PM VA-TOBACCO USE HANDKERCHIEF FOLDER NO [place] Jan 13, 2023 02:00 PM VA-TOBACCO USE MED NO [place] Jan 13, 2023 02:00 PM VA-TOBACCO USE WI 30 MIN OF WAKEUP [place] Jan 13, 2023 02:00 PM VA-TOBACCO USER EVERY DAY [place] Jul 03, 2022 09:00 AM VA-TOBACCO FORMER USER [place] Jul 03, 2022 09:00 AM VA-TOBACCO QUIT 5 TO < 15 YRS [place] Jul 04, 2021 09:00 AM VA-TOBACCO USE > 1 5 LESS THAN 30 YEARS [place] Jul 04, 2021 09:00 AM VA-TOBACCO USE ADVICE [place] Jul 04, 2021 09:00 AM VA-TOBACCO USE HANDKERCHIEF FOLDER NO [place] Jul 04, 2021 09:00 AM VA-TOBACCO USE MED NO [facility] 30, 2021 09:00 AM VA-TOBACCO USE WI 30 MIN OF WAKEUP [place] Jul 04, 2021 09:00 AM VA-TOBACCO USER SOME DAYS [place] Apr 30, 2020 10:39 AM VA-TOBACCO FORMER USER [place] Apr 30, 2020 10:39 AM VA-TOBACCO QUIT 5 TO < 15 YRS [place] Dec 21, 2018 03:15 PM VA-TOBACCO FORMER USER [place] Dec 21, 2018 03:15 PM VA-TOBACCO QUIT 1 TO < 5 YRS [place] Nov 24, 2017 09:54 AM CURRENT SMOKER cigarets [place] Nov 24, 2017 09:54 AM V1-PT READY TO SHARAN T TOBACCO USE [place] Mar 25, 2017 01:57 PM CURRENT SMOKER down to 10 cigarettes daily [place] Mar 25, 2017 01:57 PM V1-PT DECLINES TOB ACCO CESSATION [facility] [place] Mar 25, 2017 01:57 PM V1-PT READY TO SHARAN T TOBACCO USE [place] March 04, 2017 02:38 PM CURRENT SMOKER advise stopm [place] Jul 22, 2016 09:29 AM V1-PT NOT INTEREST ED IN QUIT TOBACCO USE [place] Nov 21, 2015 09:21 AM CURRENT SMOKER half a pack a day [place] Nov 21, 2015 09:21 AM V1-PT NOT INTEREST ED IN QUIT TOBACCO USE [place] Nov 23, 2014 08:51 AM CURRENT SMOKER [facility] Nov 23, 2014 08:51 AM V1-PT READY TO SHARAN T TOBACCO USE [place] Dec 16, 2013 02:19 PM CURRENT SMOKER 3/4 pack a day [place] Dec 16, 2013 02:19 PM V1-PT THINKING ABO [place] QUIT TOBACCO USE [place] Advance Directives: All historical and current Section [...] Encounter. Date/Time Encounter Note(s) Provider Source Mar 27, 2025 09:15 AM NUTRITION DIETETIC S CONSULT: LOCAL TITLE: CONSULT REPORT/NUTRITION AND EDUCATION PROGRAM MANAGER STANDARD TITLE: NUTRITION DIETETICS CONSULT DATE OF NOTE: MAR 27, 2025@09:15 ENTRY DATE: MAR 27, 2025@13:30:06 AUTHOR: TAMI OLSON COSIGNER: URGENCY: STATUS: COMPLETED NUTRITION ASSESSMENT Reason for Nutrition referral: Impaired Fasting Glucose, Overweight/ObesityPt was on semaglutide (Ozempic) and d/c'd due to side effects that required ER evaluation multiple times. His appetite has improved significantly since and he has cravings. Hoping to review diet and what to avoid/cut back on. Primary Diagnosis: Obesity class II (E66.212) Secondary Diagnosis: Dietary Surveillance and Counseling (Z71.3) Additional Secondary Diagnosis: Impaired Fasting Glucose (R73.01) Date of Nutrition Visit: Mar Visit #: 1 Time Spent with Patient: 40 minutes Patient identified using the following two forms of ID: Date of , Patient Full Name NUTRITION ASSESSMENT: Client History === Medication List Reviewed Food/Drug Interactions: Amlodipine/Grapefruit Nutritional/Herbal Supplements: yes Cholecalciferol , Cyanocobalamin Ferrous Gluconate, MgOxide, KCl Food Allergies:no Problem List Reviewed: yes Anthropometric Measurements: Ht:68 in [172.7 cm] (11/21/2023 09:25) Wt:247.8 lb [112.40 kg] (03/27/2025 09:15) Weight History: Measurement DT WEIGHT LB(KG)[BMI] 03/27/2025 09:15 247.8(112.40)[38*] 03/07/2025 09:14 248.2(112.58)[38*] 03/01/2025 12:51 247.4(112.22)[38*] 11/15/2024 08:38 228(103.42)[35*] 10/18/2024 08:40 231(104.78)[35*] BMI: 37.8 IBW: 154 lb Biochemical Data/Medical Tests: Labs: LIPID PANEL TREND Collection DT Spec CHOL HDL CHO/HDL LDL-d LDL-c TRIG 02/06/2025 08:56 SERUM 229 H 34 L 6.7 172 H Reflex to dLDL 315 H 09/13/2024 07:33 SERUM 154 31 L 5.0 73 248 H HEMOGLOBIN A1C; BLOOD [place]. Date: 02/06/25 08:56 12/15/24 09:34 Test Name Result Units Range HEMOGLOBIN A1C 7.2 H 5.8 H % 4.0 - 5.6 Other Labs: GLUCOSE (BLOOD SUGAR) Collection DT Specimen Test Name Result Units Ref Range 03/01/2025 11:49 SERUM GLUCOSE 151 H mg/dL 65 - 100 BP: 114/73 (03/07/2025 09:14) Nutrition Focused Physical Findings: === Appetite: Good Other issues/concerns: None Nutrition-Focused Physical Exam A selection MUST be made in The Nutrition-Focused Physical Exam Summary section Signs of Obesity Body habitus: Android Obesity Nutrition-Focused Physical Exam Summary: ======= Based on the ASPEN/AND Malnutrition Diagnosis Guide, it was determined that the DOES NOT have malnutrition. Nutrition History: Food/Nutrition Related History: Met with who is concered with his weight. He lives a [employer] [facility] in [place]. They provide 1 meal per day. He does the cooking and shopping for other meals. Notes he drinks little water. Mainly drinks coffee, soda and chocolate milk. He notes he has been eating too much cereal at times. He notes he eats too much and too fast at times. 24 hour recall: D: shrimp, chicken legs, rice snacks: cereal, milk In the past 3 months, did you ever run out of food and you were not able to access more food or have the money to buy more food? No Physical Activity: mainly sedentary NUTRITION DIAGNOSIS Nutrition Problem: NEW Obesity related to excess energy intake, physical inactivity, as evidenced by BMI=35-39.9. INTERVENTION NUTRITION COUNSELING Nutrition counseling based on motivational interviewing strategy , Nutrition counseling based on goal setting strategy , Nutrition counseling based on self monitoring strategy NUTRITION EDUCATION Content related to nutrition education, Education on nutrition's influence on health, Physical activity guidance Nutrition Education provided on the following topics: Sources of Carbohydrates, Healthy Meal Planning, Healthy Weight Loss Strategies, Potential Benefits of Weight Loss, MOVE! program (rationale, format, content, day/time, location), Physical Activity (potential benefits) Printed Nutrition educational materials provided during this encounter: Planning Healthy Meals Barriers to Education: None Comprehension: Good Motivation: Good COORDINATION OF NUTRITION CARE Follow-up with: PCP MONITORING Patient goals: 1. Start [facility] MOVE group on April 13. 2. Avoid snacking on cereal at night. 3. Increase intake of non starchy vegetables. FOLLOW-UP PLAN 1. Follow-up visit: Sep 2. Monitor progress toward achievement of Nutrition Intervention Goals 3. Assess comprehension and motivation based on dietary changes made 4. Monitor progress toward achievement of Clinical Outcome Goals: Weight, Labs CLINICAL OUTCOME GOALS: Indicator A1c: Criteria: Type 2 DM Goal: A1c<7% by follow-up Progress: TBD at follow-up Indicator: Weight Criteria: Obese per BMI Goal: Weight loss of 1-2/#/week toward IBW by follow-up Progress: TBD at follow-up WHOLE HEALTH ====== WHOLE HEALTH EDUCATION ====== Whole Health Education was provided. /karlene/ TAMI OLSON STAFF DIETITIAN Signed: 04/02/2025 20:21 TAMI OLSON
--- OUTSIDE RECORDS SUMMARY | 2025-04-21 05:15 | XMS_ITS | Encounter Summary ---
Author Name [facility] [place] Address [address] [place] [address] Care Team Providers Care Diffuser Operator Name Role Phone AUSTIN BALDWIN Primary Care Provider [facility] Insurance Providers: All historical and [...] PATRICIO ERICKSON Nov 14, 2024 PATRICIO MULLIGAN [id number] Dougie RIVERA PATIENT [facility] MEDICAID MEDICAID MEDIC AID Oct 05, 2016 MEDICAI D [id number] NICOLE,A NALLELY PATIENT MEDICAID MEDICAID [facility] Oct 05, 2014 MEDICAI D [id number] Dougie RIVERA NALLELY PATIENT MEDICARE (WNR) MEDICARE (M) PART A May 05, 2018 PART A [id number] [facility] Dougie RIVERA NALLELY PATIENT MEDICARE (WNR) MEDICARE (M) PART B May 05, 2018 PART B [id number] [facility] Dougie RIVERA PATIENT Selected Encounter This section includes the information on [place] at [place] for the Encounter. Date/Time Encounter Type Encounter Description Reason Provider Source Apr 21, 2025 09:15 AM OFFICE O/P EST MOD 30 MIN PRIMARY CARE/MEDICINE ICD-10-CM R60.9 Edema, unspecified ARCADIO JOHNSON [facility] Encounter Template Text not used by [place] Assessments - Encounter Diagnoses This section includes the primary and secondary diagnoses documented for the Encounter. Date/Time Primary/Secondary Diagnosis Diagnosis Name Provider Source Apr 21, 2025 09:52 AM PRIMARY Edema, unspecified ARCADIO JOHNSON [facility] Plan of Treatment: Future Appointments (+ 6 [...] Appointment Type Appointme nt Facility Name Apr 24, 2025 01:00 PM AMBULATORY - MEDICINE [facility] [place] [facility] Apr 27, 2025 09:00 AM AMBULATORY - NONE [facility] May 04, 2025 09:00 AM AMBULATORY - NONE [facility] May 05, 2025 01:30 PM AMBULATORY - MEDICINE [facility] May 11, 2025 09:00 AM AMBULATORY - NONE [facility] May 18, 2025 09:00 AM [facility] May 18, 2025 09:05 AM AMBULATORY - NONE [facility] May 22, 2025 08:30 AM AMBULATORY - SURGERY [facility] [place] [facility] May 25, 2025 09:00 AM AMBULATORY - NONE [facility] Jun 01, 2025 09:00 AM AMBULATORY - NONE [facility] Jun 15, 2025 08:30 AM [facility] Jun 30, 2025 01:00 PM [facility] Aug 08, 2025 08:30 AM [facility]ULATORY - MEDICINE [facility] [place] [facility] Aug 10, 2025 10:00 AM AMBULATORY - MEDICINE [facility] [place] [facility] Sep 04, 2025 10:45 AM [facility]ONE [facility] Sep 11, 2025 09:00 AM [facility] - [facility]ICINE [facility] [place] Oct 03, 2025 10:00 AM AMBULATORY - MEDICINE [place] [facility] Active, Pending, and Scheduled Orders [...] AM Consult Order COMMUNITY CARE-RETINAL SPECIALIST Cons Pc Analyst's Choice [facility] Lab Results: +/- 30 days [...] Unit Interpretation Reference Range Specimen Type Comment May 05, 2025 01:50 PM [facility] HEMOGLOBIN A1C PANEL BLOOD Specimen T ype: BLOOD Comment: Values obtained from A1C measurements can vary. For atypical A1C assays, a reported value of 7.0 could actually be between 6.72 and 7.28 if measured by a reference method. A reported value of 9.0 could actually be between 8.73 and 9.27. Ref: http://www.ngsp .org/CAPdata.as p Ordering Provider: SWAPNIL SCHOFIELD Report Released Date/Time: May 05, 2025 01:36 PM Reporting Lab: [facility] [address] [facility] [address] Performing Lab: [address] [address] HEMOGLOBIN A1C 7.2 H 4.0-5.6 May 05, 2025 01:50 PM [facility] CREATININE (eGFR 2020) SERUM Specimen Type: SERUM No comment entered. Ordering Provider: SWAPNIL SCHOFIELD Report Released Date/Time: May 05, 2025 01:36 PM Reporting Lab: [facility] [address] [facility] [address] Performing Lab: [facility] [address] [facility] [address] CREATININE, Serum 1.47 mg/dL H 0.72-1.25 eGFR(CKD-EPI 2020) 53 mL/min L >60 Vital Signs: All taken on the encounter date This section contains inpatient and outpatient Vital Signs collected on the date of the Encounter. Date/Time Temperature Pulse Blood Pressure Respiratory Rate SP02 Pain Height Weight Body Mass Index Source Apr 21, 2025 09:10 AM 98.2 F 74 /min 123/86 mm[Hg] 19 /min 98 % 1 [facility] [place] Social History: Smoking Status (Most [...] place. Date/Time Current Smoking Status Comment Facil it Dec 16, 2023 10:00 AM VA-TOBACCO USER EVERY DAY [facility] Tobacco Use History This section includes a history of the smoking, or tobacco-related health factors, that were collected on or before the date of the Encounter. The data comes from the [place] facility where the Encounter took place. Date/Time Smoking Status/Tobacco Use Comment F acility Dec 16, 2023 10:00 AM VA-TOBACCO USE > 1 5 LESS THAN 30 YEARS [facility] Dec 16, 2023 10:00 AM VA-TOBACCO USE 30 YEARS OR MORE [facility] Dec 16, 2023 10:00 AM VA-TOBACCO USE ADVICE [facility] Dec 16, 2023 10:00 AM VA-TOBACCO USE CHIEF CUSTOMER OFFICER NO [facility] Dec 16, 2023 10:00 AM VA-TOBACCO USE CHIEF CUSTOMER OFFICER YES [facility] Dec 16, 2023 10:00 AM VA-TOBACCO USE MED NO [facility] Dec 16, 2023 10:00 AM VA-TOBACCO USE MED YES [facility] Dec 16, 2023 10:00 AM VA-TOBACCO USE WI 30 MIN OF WAKEUP [facility] Dec 16, 2023 10:00 AM VA-TOBACCO USER EVERY DAY [facility] Jan 13, 2023 02:00 PM VA-TOBACCO USE 1 T O < 5 YEARS [facility] Jan 13, 2023 02:00 PM VA-TOBACCO USE ADVICE [facility] Jan 13, 2023 02:00 PM VA-TOBACCO USE CHIEF CUSTOMER OFFICER NO [facility] Jan 13, 2023 02:00 PM VA-TOBACCO USE MED NO [facility] Jan 13, 2023 02:00 PM VA-TOBACCO USE WI 30 MIN OF WAKEUP [facility] Jan 13, 2023 02:00 PM VA-TOBACCO USER EVERY DAY [facility] Jul 03, 2022 09:00 AM VA-TOBACCO FORMER USER [facility] Jul 03, 2022 09:00 AM VA-TOBACCO QUIT 5 TO < 15 YRS [facility] Jul 04, 2021 09:00 AM VA-TOBACCO USE > 1 5 LESS THAN 30 YEARS [facility] Jul 04, 2021 09:00 AM VA-TOBACCO USE ADVICE [facility] Jul 04, 2021 09:00 AM VA-TOBACCO USE CHIEF CUSTOMER OFFICER NO [facility] Jul 04, 2021 09:00 AM VA-TOBACCO USE MED NO [facility] Jul 04, 2021 09:00 AM VA-TOBACCO USE WI 30 MIN OF WAKEUP [facility] Jul 04, 2021 09:00 AM VA-TOBACCO USER SOME DAYS [facility] Apr 30, 2020 10:39 AM VA-TOBACCO FORMER USER [facility] Apr 30, 2020 10:39 AM VA-TOBACCO QUIT 5 TO < 15 YRS [facility] Dec 21, 2018 03:15 PM VA-TOBACCO FORMER USER [facility] Dec 21, 2018 03:15 PM VA-TOBACCO QUIT 1 TO < 5 YRS [facility] Nov 24, 2017 09:54 AM CURRENT SMOKER cigarets [facility] Nov 24, 2017 09:54 AM V1-PT READY TO SHARAN T TOBACCO USE [facility] Mar 25, 2017 01:57 PM CURRENT SMOKER down to 10 cigarettes daily [facility] Mar 25, 2017 01:57 PM V1-PT DECLINES TOB ACCO CESSATION MEDS [facility] Mar 25, 2017 01:57 PM V1-PT READY TO SHARAN T TOBACCO USE [facility] March 04, 2017 02:38 PM CURRENT SMOKER advise stopm [facility] Jul 22, 2016 09:29 AM V1-PT NOT INTEREST ED IN QUIT TOBACCO USE [facility] Nov 21, 2015 09:21 AM CURRENT SMOKER half a pack a day [facility] Nov 21, 2015 09:21 AM V1-PT NOT INTEREST ED IN QUIT TOBACCO USE [facility] Nov 23, 2014 08:51 AM CURRENT SMOKER [facility] Nov 23, 2014 08:51 AM V1-PT READY TO SHARAN T TOBACCO USE [facility] Dec 16, 2013 02:19 PM CURRENT SMOKER 3/4 pack a day [facility] Dec 16, 2013 02:19 PM V1-PT THINKING ABO UT QUIT TOBACCO USE [facility] Advance Directives: All historical and current Section [...] Encounter. Date/Time Encounter Note(s) Provider Source Apr 21, 2025 09:44 AM PHYSICIAN ASSISTJACQUELYN T NOTE: LOCAL TITLE: PA NOTE STANDARD TITLE: PHYSICIAN CREDIT RISK MANAGEMENT DIRECTOR NOTE DATE OF NOTE: APR 21, 2025@09:44 ENTRY DATE: APR 21, 2025@09:44:20 AUTHOR: ARCADIO JOHNSON EXP COSIGNER: URGENCY: STATUS: COMPLETED SICK CALL VISIT HPI: 64 year old male with below noted PMHx presents with recurrence of RLE edema. [place] states he did well with his prior medication BUMETANIDE and would like to have this renewed. He has no CP/SOB. No ascending swelling. REVIEW OF SYSTEMS: A 12 point review of systems is negative except as noted in the HPI. Active Medical Problems: Active Problem Pain of right lower [...] BALDWIN Colonoscopy normal 799.9 04/10/2015 AUSTIN BALDWIN Meds: Active Outpatient Medications (including Supplies): ACCU-CHEK GUIDE (GLUCOSE) TEST STRIP USE 1 STRIP TO TEST ACTIVE BLOOD SUGARS DIRECTED ALBUTEROL 90MCG (CFC-F) 200D ORAL INHL INHALE 1 PUFF BY ACTIVE MOUTH FOUR TIMES DAILY NEEDED Indication: FOR BRONCHOSPASM AMLODIPINE BESYLATE 10MG TAB TAKE ONE TABLET BY MOUTH ONCE ACTIVE DAILY FOR BLOOD PRESSURE/HEART, DO NOT TAKE WITH GRAPEFRUIT JUICE Indication: FOR HIGH BLOOD PRESSURE CHOLECALCIF 50MCG (D3-2,000UNIT) TAB TAKE ONE TABLET BY ACTIVE MOUTH ONCE DAILY FOR VITAMIN SUPPLEMENTATION Indication: FOR VITAMIN D DEFICIENCY CYANOCOBALAMIN 500MCG TAB TAKE ONE TABLET BY MOUTH TWICE ACTIVE DAILY Indication: FOR PREVENTION OF VITAMIN B12 DEFICIENCY FERROUS GLUCONATE 324MG TAB TAKE ONE TABLET BY MOUTH EVERY ACTIVE OTHER DAY Indication: TO SUPPLEMENT IRON MAGNESIUM OXIDE 420MG TAB TAKE ONE TABLET BY MOUTH ONCE ACTIVE DAILY Indication: FOR MAGNESIUM SUPPLEMENTATION MULTIVITAMIN CAP/TAB TAKE 1 TABLET BY MOUTH ONCE DAILY ACTIVE Indication: FOR VITAMIN SUPPLEMENTATION OMEPRAZOLE 20MG EC CAP TAKE ONE CAPSULE BY MOUTH EVERY ACTIVE MORNING 30 MINUTES BEFORE BREAKFAST Indication: FOR EXCESSIVE PRODUCTION OF STOMACH ACID POTASSIUM CL 20MEQ SA TAB (DISPERSIBLE) TAKE ONE TABLET BY ACTIVE MOUTH ONCE DAILY Indication: FOR LOW POTASSIUM SITAGLIPTIN (EQV-ZITUVIO) 100MG TAB TAKE ONE TABLET BY ACTIVE MOUTH ONCE DAILY Indication: DIABETES Non-VA ACETAMINOPHEN TAB BY MOUTH ACTIVE Non-VA ASPIRIN 81MG EC TAB 81MG BY [...] CAP 150MG BY MOUTH ACTIVE ONCE DAILY 20 Total Medications Allergies: CODEINE, OXYCODONE Date Vital Measurement Qualifiers 04/21/2025 09:10 Temp F (C) 98.2 (36.8) Pulse 74 Respir 19 BP 123/86 Pain 1 POx (L/Min)(%) 98 At Rest 04/20/2025 14:01 Wt lbs (kg)[BMI] 245 (111.13)[37*]Stated FOCUSED EXAMINATION WD obese, NAD Right LE with 1+ edema noted, Bilateral legs with distal third sparce or absent hair. Pulses 1+ bilaterally Sensation and movement intact MDM: No evidence of ascending edema. Renew his BUMETANIDE TAB 0.5MG TAKE ONE TABLET BY MOUTH ONCE DAILY TO REMOVE FLUID/CONTROL BLOOD PRESSURE. Compression stockings as directed. Elevation and dietary discretion with sodium discussed. F/U PCP. RTC PRN. ASSESSMENT/PLAN EDEMA as above On this date of the encounter, I spent 30 minutes on some or all of the following: chart review, history, physical examination, treatment planning, education and counseling of the patient/family/director of career resources, placing orders, communicating with other health care providers and documentation in the electronic health record. able to verbalize understanding of plan of care and agrees. >> MEDICATIONS Reviewed and reconciled with [place] /es/ ARCADIO MUNOZ MS,PA-C PHYSICIAN CREDIT RISK MANAGEMENT DIRECTOR Signed: 04/21/2025 09:52 ARCADIO JOHNSON
--- OUTSIDE RECORDS SUMMARY | 2025-04-24 09:00 | XMS_ITS | Encounter Summary ---
Author Name [facility] [place] Address [address] [place] [address] Care Team Providers Care Ecology Teacher Name Role Phone AUSTIN BALDWIN Primary [...] PATRICIO ERICKSON Nov 14, 2024 PATRICIO MULLIGAN [id number] NICOLE,A NALLELY PATIENT [facility] MEDICAID MEDICAID MEDIC AID Oct 05, 2016 MEDICAI D [id number] NICOLE,A NALLELY PATIENT MEDICAID MEDICAID [facility] STAND BEATRICE Oct 05, 2014 MEDICAI D [id number] NICOLE,A NALLELY PATIENT MEDICARE (WNR) MEDICARE (M) PART A May 05, 2018 PART A [id number] Dougie RIVERA NALLELY PATIENT MEDICARE (WNR) MEDICARE (M) PART B May 05, 2018 PART B [id number] NICOLEDougie NALLELY PATIENT Selected Encounter This section includes the information on [place] at [place] for the Encounter. Date/Time Encounter Type Encounter Description Reason Provider Source Apr 24, 2025 01:00 PM ACUP 1/> W/O ESTIM EA ADD 15 CI[facility] TREATMENT ICD-10-CM M79.661 Pain in right lower leg JAKE ALFARO IHE Encounter Template Text not used by [place] Assessments - Encounter Diagnoses This section includes the primary and secondary diagnoses documented for the Encounter. Date/Time Primary/Secondary Diagnosis Diagnosis Name Provider Source Apr 24, 2025 02:11 PM PRIMARY Pain in right lower leg NAVEED ALFARO [facility] [place] [facility] Apr 24, 2025 02:11 PM SECONDARY Edema, unspecified [facility]AVEED ALFARO [facility] [place] [facility] Plan of Treatment: [...] Type Appointme nt Facility Name Apr 27, 2025 09:00 AM AMBULATORY - NONE [facility] May 04, 2025 09:00 AM [facility]ATORY - NONE [facility] May 05, 2025 01:30 PM AMBULATORY - MEDICINE [facility] May 11, 2025 09:00 AM AMBULATORY - NONE [facility] May 18, 2025 09:00 AM AMBULATORY - MEDICINE [facility] May 18, 2025 09:05 AM AMBULATORY - NONE [facility] May 22, 2025 08:30 AM AMBULATORY - SURGERY [facility] [place] [facility] May 25, 2025 09:00 AM AMBULATORY - NONE [facility] Jun 01, 2025 09:00 AM AMBULATORY - NONE [facility] Jun 15, 2025 08:30 AM AMBULATORY - MEDICINE [facility] Jun 30, 2025 01:00 PM AMBULATORY - MEDICINE [facility] Aug 08, 2025 08:30 AM AMBULATORY - MEDICINE [place] [facility] [place] [facility] Aug 10, 2025 10:00 AM AMBULATORY - MEDICINE [place] [facility] [place] [facility] Sep 04, 2025 10:45 AM AMBULATORY - NONE [place] [facility] [place] [facility] Sep 11, 2025 09:00 AM AMBULATORY - MEDICINE [facility] [place] Oct 03, 2025 10:00 AM AMBULATORY - MEDICINE [facility] Active, Pending, and Scheduled Orders [...] AM Consult Order COMMUNITY CARE-RETINAL SPECIALIST Cons Raw Juice Weigher's Choice [facility] Lab Results: +/- 30 days of [...] Type Comment May 05, 2025 01:50 PM [place] HEMOGLOBIN A1C PANEL BLOOD Specimen T ype: [...] May 05, 2025 01:36 PM Reporting Lab: [facility] [address] [facility] [address] Performing Lab: [address] [address] HEMOGLOBIN A1C 7.2 H 4.0-5.6 May 05, 2025 01:50 PM [place] CREATININE (eGFR 2020) SERUM Specimen Type: SERUM No comment entered. Ordering Provider: SWAPNIL SCHOFIELD Report Released Date/Time: May 05, 2025 01:36 PM Reporting Lab: [facility] [address] [facility] [address] Performing Lab: [facility] [address] [facility] [address] CREATININE, Serum 1.47 mg/dL H 0.72-1.25 eGFR(CKD-EPI 2020) 53 mL/min L >60 Social History: Smoking Status (Most current) [...] 12:53 PM VA-TOBACCO USE FOR EMERALD CIGARETTES [facility] Tobacco Use History This section includes a history of the smoking, or tobacco-related health factors, that were collected on or before the date of the Encounter. The data comes from the [place] facility where the Encounter took place. Date/Time Smoking Status/Tobacco Use Comment F acility March 01, 2025 12:53 PM VA-TOBACCO USE SOME DAYS ENDS [facility] March 01, 2025 12:53 PM VA-TOBACCO USE BETY E DAYS OTHER TYPE [facility] Advance Directives: All historical and current [...] Encounter. Date/Time Encounter Note(s) Provider Source Apr 24, 2025 02:07 PM ACUPUNCTURE NOTE: LOCAL TITLE: ACUPUNCTURE TREATMENT STANDARD TITLE: ACUPUNCTURE NOTE DATE OF NOTE: APR 24, 2025@14:07 ENTRY DATE: APR 24, 2025@14:07:14 AUTHOR: JEFFERY ALFARO EXP COSIGNER: URGENCY: STATUS: [...] Colonoscopy normal 799.9 04/10/2015 AUSTIN BALDWIN Date Apr CC / HPI - Phyllis presents with chronic nausea and anxiety. Phyllis has stage III kidney disease and which causes a cascade of effects including nausea and dehydration. [place] states that he has attacks where he will have nausea dizziness and sweating and feel lightheaded. [place] states in November he was hospitalized 4 [...] bowel movements are normal and unremarkable. Urination: [place] states that he can often have urgency to urinate. He reports that several times he has not made it to the bathroom in time. RESPONSE TO PREVIOUS TREATMENT. Phyllis is still experiencing right lower leg swelling since his podiatry visit in January. Phyllis had his toe nails trimmed and had an infection. Leg has been swollen the past week and is reddish in color below the knee. _ OBJECTIVE General: . Patient in no [...] ]Pyonex Needle: remove prior to bathing per house cleaner INFORMED CONSENT: Oral Consent obtained on Apr The patient was positioned comfortably. Oral consent [...] [ ]Hip / Glute Area: [X] RUE: LI 4, FREDRICK 7, TH 5, LI 11 [X] LUE: LI 4, FREDRICK 7, TH 5, LI 11 [X] RLE: No needles d/t swelling in lower leg [X] LLE: GB 34, ST 36, SP 9, SP 6, GB 40, LR 3 [ ]Other therapies: [ ]Cupping: [ [...] is required /karlene/ JEFFERY ALFARO LA.C DIPL.AC WOUND/OSTOMY NURSE Signed: 04/24/2025 15:52 JEFFERY ALFARO [facility]
--- OUTSIDE RECORDS SUMMARY | 2025-05-05 09:30 | XMS_ITS | Encounter Summary ---
Author Name [facility] Organization [facility] Address [address] [place] [address] Care Team Providers Care Powderer Name Role Phone AUSTIN BALDWIN Primary Care Provider [facility] Insurance Providers: All historical and [...] PATRICIO ERICKSON Nov 14, 2024 PATRICIO MULLIGAN [id number] Dougie RIVERA PATIENT [facility] MEDICAID MEDICAID MEDIC AID Oct 05, 2016 MEDICAI D [id number] NICOLE,A NALLELY PATIENT MEDICAID MEDICAID [facility] Oct 05, 2014 MEDICAI D [id number] Dougie RIVERA NALLELY PATIENT MEDICARE (WNR) MEDICARE (M) PART B May 05, 2018 PART B [id number] [facility] Dougie RIVERA NALLELY PATIENT MEDICARE (WNR) MEDICARE (M) PART A May 05, 2018 PART A [id number] [facility] Dougie RIVERA PATIENT Selected Encounter This section includes the information on record at ID for the Encounter. Date/Time Encounter Type Encounter Description Reason Provider Source May 05, 2025 01:30 PM MTMS BY PHARM [facility] 15 MIN CLINICAL PHARMACY ICD-10-CM E11.9 Type 2 diabetes mellitus without complications SWAPNIL NEWMAN Nancy Encounter Template Text not used by ID Assessments - Encounter Diagnoses This section includes the primary and secondary diagnoses documented for the Encounter. Date/Time Primary/Secondary Diagnosis Diagnosis Name Provider Source May 05, 2025 01:50 PM PRIMARY Type 2 diabetes mellitus without complications SWAPNIL NEWMAN [place] Plan of Treatment: Future Appointments (+ 6 months) and Future Tests (+/- 45 days) The Plan of Treatment section includes future care activities for the patient from [facility]. This section includes future appointments and future orders which are active, pending or scheduled. Future Appointments This section includes appointments that were scheduled to occur 6 months from the date of the Encounter, up to a maximum of 20 appointments. The data comes from all ID treatment facilities. Appointment Date/Time Appointment Type Appointme nt Facility Name May 11, 2025 09:00 AM AMBULATORY - NONE [facility] May 18, 2025 09:00 AM [facility] May 18, 2025 09:05 AM AMBULATORY - NONE [facility] May 22, 2025 08:30 AM AMBULATORY - SURGERY [facility] [place] [facility] May 25, 2025 09:00 AM AMBULATORY - NONE [facility] Jun 01, 2025 09:00 AM AMBULATORY - NONE [facility] Jun 15, 2025 08:30 AM [facility] Jun 30, 2025 01:00 PM [facility] Aug 08, 2025 08:30 AM AMBULATORY - MEDICINE [facility] [place] [facility] Aug 10, 2025 10:00 AM AMBULATORY - MEDICINE [facility] [place] [facility] Sep 04, 2025 10:45 AM AMBULATORY - NONE [facility] [place] [facility] Sep 11, 2025 09:00 AM AM[facility]UL[facility]ORY - [facility]ICINE [facility] Oct 03, 2025 10:00 AM AMBULATORY - MEDICINE [facility] [place] [facility] Lab Results: +/- 30 days [...] Type Comment May 05, 2025 01:50 PM [place] HEMOGLOBIN A1C PANEL BLOOD Specimen T ype: BLOOD Comment: Values obtained from A1C measurements can vary. For atypical A1C assays, a reported value of 7.0 could actually be between 6.72 and 7.28 if measured by a reference method. A reported value of 9.0 could actually be between 8.73 and 9.27. Ref: http://www.ngsp .org/CAPdata.as p Ordering Provider: SWAPNIL NEWMAN Report Released Date/Time: May 05, 2025 01:36 PM Reporting Lab: [address] [address] Performing Lab: [address] [address] HEMOGLOBIN A1C 7.2 H 4.0-5.6 May 05, 2025 01:50 PM [place] CREATININE (eGFR 2020) SERUM Specimen Type: SERUM No comment entered. Ordering Provider: SWAPNIL NEWMAN Report Released Date/Time: May 05, 2025 01:36 PM Reporting Lab: [address] [address] Performing Lab: [address] [address] CREATININE, Serum 1.47 mg/dL H 0.72-1.25 eGFR(CKD-EPI [...] 2023 10:00 AM VA-TOBACCO USER EVERY DAY [place] Tobacco Use History This section includes a history of the smoking, or tobacco-related health factors, that were collected on or before the date of the Encounter. The data comes from the ID facility where the Encounter took place. 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 COMPRESSORS YES [place] Dec 16, 2023 10:00 AM VA-TOBACCO USE MED NO [place] Dec 16, 2023 10:00 AM VA-TOBACCO USE MED YES [place] Dec 16, 2023 10:00 AM VA-TOBACCO USE WI 30 MIN OF WAKEUP [place] Dec 16, 2023 10:00 AM VA-TOBACCO USER EVERY DAY [place] Jan 13, 2023 02:00 PM VA-TOBACCO USE 1 T O < 5 YEARS [place] Jan 13, 2023 02:00 PM VA-TOBACCO USE ADVICE [place] Jan 13, 2023 02:00 PM 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 [place] Jan 13, 2023 02:00 PM VA-TOBACCO USE MED NO [place] Jan 13, 2023 02:00 PM VA-TOBACCO USE WI 30 MIN OF WAKEUP [place] Jan 13, 2023 02:00 PM VA-TOBACCO USER EVERY DAY [place] Jul 03, 2022 09:00 AM VA-TOBACCO FORMER USER [place] Jul 03, 2022 09:00 AM VA-TOBACCO QUIT 5 TO < 15 YRS [place] Jul 04, 2021 09:00 AM VA-TOBACCO USE > 1 5 LESS THAN 30 YEARS [place] Jul 04, 2021 09:00 AM VA-TOBACCO USE ADVICE [place] Jul 04, 2021 09:00 AM 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 [place] Jul 04, 2021 09:00 AM VA-TOBACCO USE MED NO [place] Jul 04, 2021 09:00 AM VA-TOBACCO USE WI 30 MIN OF WAKEUP [place] Jul 04, 2021 09:00 AM VA-TOBACCO USER SOME DAYS [place] Apr 30, 2020 10:39 AM VA-TOBACCO FORMER USER [place] Apr 30, 2020 10:39 AM VA-TOBACCO QUIT 5 TO < 15 YRS [place] Dec 21, 2018 03:15 PM VA-TOBACCO FORMER USER [place] Dec 21, 2018 03:15 PM VA-TOBACCO QUIT 1 TO < 5 YRS [place] Nov 24, 2017 09:54 AM CURRENT SMOKER cigarets [place] Nov 24, 2017 09:54 AM V1-PT READY TO SHARAN T TOBACCO USE [place] Mar 25, 2017 01:57 PM CURRENT SMOKER down to 10 cigarettes daily [place] Mar 25, 2017 01:57 PM V1-PT DECLINES TOB ACCO CESSATION MEDS [place] Mar 25, 2017 01:57 PM V1-PT READY TO SHARAN T TOBACCO USE [place] March 04, 2017 02:38 PM CURRENT SMOKER advise stopm [place] Jul 22, 2016 09:29 AM V1-PT NOT INTEREST ED IN QUIT TOBACCO USE [place] Nov 21, 2015 09:21 AM CURRENT SMOKER half a pack a day [place] Nov 21, 2015 09:21 AM V1-PT NOT INTEREST ED IN QUIT TOBACCO USE [place] Nov 23, 2014 08:51 AM CURRENT SMOKER [facility] Nov 23, 2014 08:51 AM V1-PT READY TO SHARAN T TOBACCO USE [place] Dec 16, 2013 02:19 PM CURRENT SMOKER 3/4 pack a day [place] Dec 16, 2013 02:19 PM V1-PT THINKING ABO UT QUIT TOBACCO USE [place] Advance Directives: All historical and current Section [...] Encounter. Date/Time Encounter Note(s) Provider Source May 05, 2025 01:28 PM PHARMACY OUTPATIEN T NOTE: LOCAL TITLE: PHARMACY CLINIC NOTE STANDARD TITLE: PHARMACY OUTPATIENT NOTE DATE OF NOTE: MAY 05, 2025@13:28 ENTRY DATE: MAY 05, 2025@13:28:54 AUTHOR: SWAPNIL NEWMAN COSIGNER: URGENCY: STATUS: COMPLETED Known Allergies: CODEINE, OXYCODONE ANGELA RIVERA contacted for diabetes management. Subjective: [place] referred to pharmacy clinic by PCP. Per [...] consult . At time of last visit, sitagliptin initiated. Pt notes frustration with tooth infection; started on abx today x 6 days with plan for extraction. Notes extraction not until mid-June d/t appointment availability; however, calling daily for cancellations. Continues with MOVE program. Notes it has been hard to eat healthy while watching budget; notes he has not cut back on soda. Remains tobacco free; motivated by money he is saving. As noted previously, LSMs have lead to >20lb weight loss. Target Goals: A1C: 7%; FB-110 mg/dl Objective: Diabetes Medication Regimen: sitagliptin 100mg daily Previous Medications: semaglutide 1mg once weekly (GI ADR) Adherence: denies missed doses HEMOGLOBIN A1C TREND [...] 33 L 5.4 96 251 H CREATININE-EGFR 03/01/25 11:49 1.18 02/06/25 08:56 1.12 12/15/24 09:34 1.27 BP: 123/86 (04/21/2025 09:10) HR: 74 (04/21/2025 09:10) HT: 68 in [172.7 cm] (11/21/2023 09:25) WT: 245 lb [111.13 kg] (05/04/2025 15:58) BMI: BMI: 37.3 Patient self-monitoring of blood glucose: Health-[facility]ar[facility]: At home : Patient self-monitors blood glucose 1-2x/week and reports the following (mg/dl): 12/19/24 Has not SMBG. 02/13/25 Not SMBG. 05/05/25 Not SMBG Patient eats on avg. 2-3x day: Diet Patterns: appetite increased B: skips L: varies; sauteed vegetables + eggs D: varies; [place] On provides meals Snacks: denies Drinks: diet/sugar free Dejesus, Gatorade zero, water (will be getting a Alissa), coffee (with cream and milk), soda (cut back; using more diet soda) Exercise: Walks every day (5000-10,000 steps/day) HYPOGLYCEMIC Events: 0 in the last 2 weeks Hypoglycemia recognition & treatment reviewed: Yes EtOH/Illicit drugs: Alcohol: denies Tobacco: denies; previously quit Other: marijuana Other: Denies personal or fhx thyroid cancer or MENS2 Denies personal hx pancreatitis 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 Labwork collected and pending. Pt agrees to start SMBG. He was counseled on LSMs and encouraged to work on this; remains in MOVE program. Strategies for healthy alternatives that are budget friendly reviewed; encouraged to cut back on soda, etc. No changes for now. Reassess at f/u. SGLT-2 inhibitor avoided given fluctuation in renal function resulting in several hospitalizations; reassess in the future. If needed, consider Arti 3 in future but given A1c at goal and starting GLP-1 agonist, will not consider at this time. 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 He will ask for assistance from others as possible. 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 Time Spent: 30 minutes PBM PharmD Pharmacotherapy Rem V12: PHARMACIST INTERVENTIONS: TYPE 2 DIABETES MELLITUS Medication monitoring, no dosage change required, continue to monitor and assess Medication reconciliation (changes to active VA and non-VA medication lists to reconcile differences) No changes to medication lists made (medication review completed, no discrepancies identified) /karlene/ Swapnil Newman PharmD Clinical Pharmacy Practitioner Signed: 05/05/2025 13:50 SWAPNIL NEWMAN
--- OUTSIDE RECORDS SUMMARY | 2025-05-18 05:00 | XMS_ITS | Encounter Summary ---
Author Name [facility] [facility] [place] [facility] [place] Address [address] [place] [address] Care Team Providers Care Target Network Analyst Name Role Phone AUSTIN BALDWIN Primary [facility] Insurance Providers: All historical [...] Relationship to Policy Lomas PATRICIO MULLIGAN-WN R [place] SPECIAL CLASS PATRICIO ERICKSON Nov 14, 2024 PATRICIO MULLIGAN [id number] Dougie RIVERA PATIENT [facility] MEDICAID MEDICAID MEDIC AID Oct 05, 2016 MEDICAI D [id number] NICOLE,A NALLELY PATIENT MEDICAID MEDICAID [facility] Oct 05, 2014 MEDICAI D [id number] Dougie RIVERA NALLELY PATIENT MEDICARE (WNR) MEDICARE (M) PART A May 05, 2018 PART A [id number] [facility] Dougie RIVERA NALLELY PATIENT MEDICARE (WNR) MEDICARE (M) PART B May 05, 2018 PART B [id number] [facility] Dougie RIVERA PATIENT Selected Encounter This section includes the information on record at [place] for the Encounter. Date/Time Encounter Type Encounter Description Reason Provider Source May 18, 2025 09:00 AM OFFICE O/P EST LOW 20 MIN PODIATRY ICD-10-CM L60.0 Ingrowing nail OLIMPIA BRIGHT Nancy Encounter Template Text not used by [place] Assessments - Encounter Diagnoses This section includes the primary and secondary diagnoses documented for the Encounter. Date/Time Primary/Secondary Diagnosis Diagnosis Name Provider Source May 18, 2025 09:20 AM PRIMARY Ingrowing nail OLIMPIA BRIGHT [place] May 18, 2025 09:20 AM SECONDARY Pain in left toe(s) OLIMPIA BRIGHT [place] May 18, 2025 09:20 AM SECONDARY Pain in right toe(s) OLIMPIA BRIGHT [place] May 18, 2025 09:20 AM SECONDARY Type 2 diabetes mellitus without complications OLIMPIA BRIGHT [place] Plan of Treatment: Future Appointments (+ [...] Appointment Type Appointme nt Facility Name May 22, 2025 08:30 AM AMBULATORY - SURGERY [place] [facility] [place] [facility] May 25, 2025 09:00 AM AMBULATORY - NONE [facility] Jun 01, 2025 09:00 AM AMBULATORY - NONE [facility] Jun 15, 2025 08:30 AM AMBULATORY - MEDICINE [facility] [place] Jun 30, 2025 01:00 PM AMBULATORY - MEDICINE [place] [place] Aug 08, 2025 08:30 AM AMBULATORY - MEDICINE [facility] [place] [facility] Aug 10, 2025 10:00 AM AMBULATORY - MEDICINE [facility] [place] [facility] Sep 04, 2025 10:45 AM AMBULATORY - NONE [facility] [place] [facility] Sep 11, 2025 09:00 AM AMBULATORY - MEDICINE [place] Oct 03, 2025 10:00 AM AMBULATORY - MEDICINE [place] C [place] [facility] Active, Pending, and Scheduled Orders This section includes a listing of several types of active, pending, and scheduled orders, including clinic medications orders, diagnostic test orders, procedure orders and consult orders; where the start date of the order is 45 days before the date of the Encounter or 45 days after the date of theEncounter. The data comes from all [facility]. Test Date/Time Test Type Test Details Facility Name Jun 23, 2025 12:00 AM Laboratory - Chemi stry Order HEMOGLOBIN A1C PANEL BLOOD (LAV-BLOOD) [facility] Jun 23, 2025 12:00 AM Laboratory - Chemi stry Order TSH BLOOD (SST-SERUM) [facility] Jun 23, 2025 12:00 AM Laboratory - Chemi stry Order PSA BLOOD (SST-SERUM) [facility] Jun 23, 2025 12:00 AM Laboratory - Chemi stry Order H PYLORI ANTIBODY BLOOD (SST-GOLD) SERUM [facility] 19, 2025 12:00 AM Laboratory - Chemi stry Order LIPASE BLOOD (SST-SERUM) [facility] Jun 23, 2025 12:00 AM Laboratory - Chemi stry Order AMYLASE BLOOD (SST-SERUM) [facility] Jun 23, 2025 12:00 AM Laboratory - Chemi stry Order LIPID PANEL, NON FASTING BLOOD (SST-SERUM) [facility] Jun 23, 2025 12:00 AM Laboratory - Chemi stry Order LIVER FUNCTION BLOOD (SST-SERUM) [facility] Jun 23, 2025 12:00 AM Laboratory - Chemi stry Order BASIC METABOLIC PANEL (non-fasting) BLOOD (SST-SERUM) [facility] Jun 23, 2025 12:00 AM Laboratory - Chemi stry Order CALCIUM BLOOD (SST-SERUM) [facility] Jun 23, 2025 12:00 AM Laboratory - Chemi stry Order CALCIUM BLOOD (SST-SERUM) [facility] 19, 2025 12:00 AM Laboratory - Chemi stry Order FERRITIN BLOOD (SST-SERUM) [facility] Jun 23, 2025 12:00 AM Laboratory - Chemi stry Order URIC ACID BLOOD (SST-SERUM) [facility] Jun 23, 2025 12:00 AM Laboratory - Chemi stry Order VITAMIN B12 BLOOD (SST-SERUM) [facility] 19, 2025 12:00 AM Laboratory - Chemi stry Order MAGNESIUM BLOOD (SST-SERUM) [facility] Jun 23, 2025 12:00 AM Laboratory - Chemi stry Order MICROALBUMIN CREATININE RATIO PANEL URINE (RANDOM) [facility] Jun 23, 2025 12:00 AM Laboratory - Chemi stry Order CBC AND DIFF (AUTO) BLOOD (LAV-BLOOD) [facility] Lab Results: +/- 30 days of the [...] Type Comment May 05, 2025 01:50 PM [place] HEMOGLOBIN A1C PANEL BLOOD Specimen T ype: [...] May 05, 2025 01:36 PM Reporting Lab: [address] [address] Performing Lab: [address] [address] HEMOGLOBIN A1C 7.2 H 4.0-5.6 May 05, 2025 01:50 PM [place] CREATININE (eGFR 2020) SERUM Specimen Type: SERUM No comment entered. Ordering Provider: SWAPNIL SCHOFIELD Report Released Date/Time: May 05, 2025 01:36 PM Reporting Lab: [address] [address] Performing Lab: [address] [address] CREATININE, Serum 1.47 mg/dL H 0.72-1.25 eGFR(CKD-EPI [...] 2023 10:00 AM VA-TOBACCO USER EVERY DAY [place] Tobacco Use History This section includes a history of the smoking, or tobacco-related health factors, that were collected on or before the date of the Encounter. The data comes from the [place] facility where the Encounter took place. 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 [place] Dec 16, 2023 10:00 AM VA-TOBACCO USE ENTRY LEVEL MACHINE OPERATOR YES [place] Dec 16, 2023 10:00 AM VA-TOBACCO USE MED NO [place] Dec 16, 2023 10:00 AM VA-TOBACCO USE MED YES [place] Dec 16, 2023 10:00 AM VA-TOBACCO USE WI 30 MIN OF WAKEUP [place] Dec 16, 2023 10:00 AM VA-TOBACCO USER EVERY DAY [place] Jan 13, 2023 02:00 PM VA-TOBACCO USE 1 T O < 5 YEARS [place] Jan 13, 2023 02:00 PM VA-TOBACCO USE ADVICE [place] Jan 13, 2023 02:00 PM VA-TOBACCO USE ENTRY LEVEL MACHINE OPERATOR NO [place] Jan 13, 2023 02:00 PM VA-TOBACCO USE MED NO [place] Jan 13, 2023 02:00 PM VA-TOBACCO USE WI 30 MIN OF WAKEUP [place] Jan 13, 2023 02:00 PM VA-TOBACCO USER EVERY DAY [place] Jul 03, 2022 09:00 AM VA-TOBACCO FORMER USER [place] Jul 03, 2022 09:00 AM VA-TOBACCO QUIT 5 TO < 15 YRS [place] Jul 04, 2021 09:00 AM VA-TOBACCO USE > 1 5 LESS THAN 30 YEARS [place] Jul 04, 2021 09:00 AM VA-TOBACCO USE ADVICE [place] Jul 04, 2021 09:00 AM VA-TOBACCO USE ENTRY LEVEL MACHINE OPERATOR NO [place] Jul 04, 2021 09:00 AM VA-TOBACCO USE MED NO [place] Jul 04, 2021 09:00 AM VA-TOBACCO USE WI 30 MIN OF WAKEUP [place] Jul 04, 2021 09:00 AM VA-TOBACCO USER SOME DAYS [place] Apr 30, 2020 10:39 AM VA-TOBACCO FORMER USER [place] Apr 30, 2020 10:39 AM VA-TOBACCO QUIT 5 TO < 15 YRS [place] Dec 21, 2018 03:15 PM VA-TOBACCO FORMER USER [place] Dec 21, 2018 03:15 PM VA-TOBACCO QUIT 1 TO < 5 YRS [place] Nov 24, 2017 09:54 AM CURRENT SMOKER cigarets [place] Nov 24, 2017 09:54 AM V1-PT READY TO SHARAN T TOBACCO USE [place] Mar 25, 2017 01:57 PM CURRENT SMOKER down to 10 cigarettes daily [place] Mar 25, 2017 01:57 PM V1-PT DECLINES TOB ACCO CESSATION MEDS [place] Mar 25, 2017 01:57 PM V1-PT READY TO SHARAN T TOBACCO USE [place] March 04, 2017 02:38 PM CURRENT SMOKER advise stopm [place] Jul 22, 2016 09:29 AM V1-PT NOT INTEREST ED IN QUIT TOBACCO USE [place] Nov 21, 2015 09:21 AM CURRENT SMOKER half a pack a day [place] Nov 21, 2015 09:21 AM V1-PT NOT INTEREST ED IN QUIT TOBACCO USE [place] Nov 23, 2014 08:51 AM CURRENT SMOKER [facility] Nov 23, 2014 08:51 AM V1-PT READY TO SHARAN T TOBACCO USE [place] Dec 16, 2013 02:19 PM CURRENT SMOKER 3/4 pack a day [place] Dec 16, 2013 02:19 PM V1-PT THINKING ABO UT QUIT TOBACCO USE [place] Advance Directives: All historical and current Section Date Range: From patient's date of to the date document was created. This section includes ALL of a patient's completed or amended [place] Advance and Rescinded Directives. The entries below [...] Encounter. Date/Time Encounter Note(s) Provider Source May 18, 2025 07:27 AM PODIATRY NOTE: LOCAL TITLE: PODIATRY NOTE STANDARD TITLE: PODIATRY NOTE DATE OF NOTE: MAY 18, 2025@07:27 ENTRY DATE: MAY 18, 2025@07:27:17 AUTHOR: OLIMPIA BRIGHT COSIGNER: URGENCY: STATUS: COMPLETED NOTE: HAS RECEIVED BOTH COVID VACCINE DOSES + 2 BOOSTERS AT [facility] *LAST SEEN FOR TREATMENT: 01/12/2025 S: Pt. is a 64 yo alert [facility] MALE who presents for CONTINUED podiatric examination [...] N/A TO THE CC . *NOTE: A1C= 7.2 (LAST TAKEN: 05/2025) FBS= DNP RISK =1 HEIGHT:218 lb [98.88 [...] need of attention. The affected nails are 2-0-0-4-5bilat. There are no superficial painful hyperkeratotic lesions [...] present physical-medical status. Protective sensation utilizing a [place]-Radha device is 10/10 bilat. *NOTE: *YEARLY COMPLETE PAVE EXAM PERFORMED TODAY - SEE BELOW. BIOMECHANICAL: Exam is deferred at this time as BEING non-contributory to the cc . A: Clinical Impression is painful onychocryptic nails(1-2-3-4-5 bilat) in the presence of DM WITH pain & NO PVD AT THIS TIME. DISCUSSED THE LAST TIME HE RENDERED SELF CARE HE HAD A HBONE INFECTION REQUIRING 8 WEEKS OF ANTIBIOTICS ALSO DISCUSSED HAVING RT LEG EDEMA AND BEING SEEN AT OUR WALK IN CLINIC & I SUGGESTED THAT HE SPEAK TO HIS PCP (EDWIGE PETERSON) FOR DIRECTION FOR A POSSIBLE VASCULAR CONSULT OR CONTINUATION OF CURRENT WATER PILL MEDS* P: Treatment consists of TRIMMING-reduction of ALL NAILS nails via manual & electric means [...] due to the underlying medical conditions. RTC: 16 Weeks( 09/11 @ 9AM) *DISCUSSED NEW PROTOCOLS AND CALLED [...] REVIEWED AT HOME (FOOT CARE TIPS). DISCUSSED A VARIETY OF TOPICS AND THINKING OF GOING TO [place] ON A CRUISE BUT UNCERTAIN Medication Reconciliation: PERFORMED TODAY - SEE BELOW. Outpatient: Has the patient been taking medications as documented in the EMLR? YES: The patient has been taking medications as documented in the EMLR. Essential Medication List for Review used to complete this medication reconciliation. INCLUDED IN THIS LIST: Alphabetical list of active outpatient prescriptions dispensed from this [place] (local) and dispensed from another [place] or [place] facility (remote) as well as [...] list may not be complete. Please check AdviseHub. Allergies/ADRs (Tool #5) FACILITY ALLERGY/ADR -------- [facility] [place] [facility] CODEINE [place] CNT [place] [facility] OXYCODONE [facility] OXYCODONE Med [facility] (Tool #1) INCLUDED IN THIS LIST: Alphabetical list of active outpatient prescriptions dispensed from this [place] (local) and dispensed from another [place] or [facility]D facility (remote) as well as inpatient orders (local pending and active), local clinic medications, locally documented non-VA medications, and local prescriptions that have or been discontinued in the past 90 days. Non-VA Meds Last Documented On: March 01, 2025 NOTE The display of VA prescriptions dispensed from another [place] or [facility] facility (remote) is limited to active outpatient prescription entries matched to National Drug File at the originating site and may not include some items such as investigational drugs, compounds, etc. NOT INCLUDED IN THIS LIST: Medications self-entered by the patient into personal health records (i.e. FUZE Fit For A Kid!) are NOT included in this list. Non-VA medications documented outside this [place], remote inpatient orders (regardless of status) and remote clinic medications are NOT included in this list. The patient and provider must always discuss medications the patient is taking, regardless of where the medication was dispensed or obtained. Non-VA ACETAMINOPHEN TAB TAKE BY MOUTH TWICE DAILY NEEDED OUTPT ALBUTEROL 90MCG (CFC-F) 200D ORAL INHL (Status = Active) INHALE 1 PUFF BY MOUTH FOUR TIMES DAILY NEEDED FOR BRONCHOSPASM Rx# [id number] Last Released: 11/23/24 Qty/Days Supply: 11/03 Rx Expiration Date: 11/16/25 Refills Remainin Indication: FOR BRONCHOSPASM OUTPT AMLODIPINE BESYLATE 10MG TAB (Status = Active) TAKE ONE TABLET BY MOUTH ONCE DAILY FOR BLOOD PRESSURE/HEART, DO NOT TAKE WITH GRAPEFRUIT JUICE Rx# [id number] Last Released: 02/22/25 Qty/Days Supply: Rx Expiration Date: 09/21/25 Refills Remainin Indication: FOR HIGH BLOOD PRESSURE Non-VA ASPIRIN 81MG EC TAB TAKE ONE TABLET BY MOUTH EVERY DAY Medication prescribed by Non-VA provider. OUTPT BUMETANIDE 0.5MG TAB (Status = Discontinued) TAKE ONE TABLET BY MOUTH ONCE DAILY TO REMOVE FLUID/CONTROL BLOOD PRESSURE Rx# [id number] Last Released: 03/01/25 Qty/Days Supply: Rx Expiration Date: 03/31/25 Refills Remainin Indication: TO REMOVE FLUID/CONTROL BLOOD PRESSURE OUTPT BUMETANIDE 0.5MG TAB (Status = Active) TAKE ONE TABLET BY MOUTH ONCE DAILY TO REMOVE FLUID/CONTROL BLOOD PRESSURE Rx# [id number] Last Released: 04/21/25 Qty/Days Supply: Rx Expiration Date: 05/21/25 Refills Remainin Indication: TO REMOVE FLUID/CONTROL BLOOD PRESSURE Non-VA BUSPIRONE HCL 5MG TAB TAKE ONE TABLET BY MOUTH TWICE DAILY Jun 05, 2021 Non-VA medication not recommended by VA provider. 8am and 8pm OUTPT CHOLECALCIF 50MCG (D3-2,000UNIT) TAB (Status = Discontinued) TAKE ONE TABLET BY MOUTH ONCE DAILY FOR VITAMIN D DEFICIENCY Rx# [id number] Last Released: 01/09/25 Qty/Days Supply: 100/90 Rx Expiration Date: 11/16/25 Refills Remainin Indication: FOR VITAMIN D DEFICIENCY OUTPT CHOLECALCIF 50MCG (D3-2,000UNIT) TAB (Status = Active) TAKE ONE TABLET BY MOUTH ONCE DAILY FOR VITAMIN D DEFICIENCY FOR VITAMIN SUPPLEMENTATION Rx# [id number] Last Released: 04/12/25 Qty/Days Supply: 100 Rx Expiration Date: 03/02/26 Refills Remainin Indication: FOR VITAMIN D DEFICIENCY Non-VA CLONAZEPAM 1MG TAB TAKE ONE TABLET BY MOUTH TWICE DAILY Medication prescribed by Non-VA provider. or tid OUTPT CYANOCOBALAMIN 500MCG TAB (Status = Active) TAKE ONE TABLET BY MOUTH TWICE DAILY FOR PREVENTION OF VITAMIN B12 DEFICIENCY Rx# [id number] Last Released: 03/28/25 Qty/Days Supply: 200/ Rx Expiration Date: 03/02/26 Refills Remainin Indication: FOR PREVENTION OF VITAMIN B12 DEFICIENCY OUTPT FENOFIBRATE 145MG TAB (Status = ) TAKE ONE TABLET BY MOUTH ONCE DAILY Rx# [id number] Last Released: 09/08/24 Qty/Days Supply: 90 Rx Expiration Date: 03/17/25 Refills Remainin Indication: FOR HIGH CHOLESTEROL OUTPT FERROUS GLUCONATE 324MG TAB (Status = Active) TAKE ONE TABLET BY MOUTH EVERY OTHER DAY TO SUPPLEMENT IRON Rx# [id number] Last Released: 10/20/24 Qty/Days Supply: 100/ Rx Expiration Date: 10/19/25 Refills Remainin Indication: TO SUPPLEMENT IRON OUTPT FERROUS SULFATE 325MG TAB (Status = Discontinued) TAKE ONE TABLET BY MOUTH EVERY OTHER DAY TO SUPPLEMENT IRON TAKE WITH ORANGE JUICE Rx# [id number] Last Released: 03/03/25 Qty/Days Supply: 100/90 Rx Expiration Date: 03/02/26 Refills Remainin Indication: TO SUPPLEMENT IRON Non-VA HYDROXYZINE HCL 25MG TAB TAKE ONE TABLET BY MOUTH ONCE DAILY OUTPT MAGNESIUM OXIDE 420MG TAB (Status = Active) TAKE ONE TABLET BY MOUTH ONCE DAILY FOR MAGNESIUM SUPPLEMENTATION Rx# [id number] Last Released: 03/03/25 Qty/Days Supply: 100/90 Rx Expiration Date: 03/02/26 Refills Remainin Indication: FOR MAGNESIUM SUPPLEMENTATION OUTPT MULTIVITAMIN CAP/TAB (Status = Active) TAKE 1 TABLET BY MOUTH ONCE DAILY FOR VITAMIN SUPPLEMENTATION Rx# [id number] Last Released: 03/03/25 Qty/Days Supply: 100/90 Rx Expiration Date: 03/02/26 Refills Remainin Indication: FOR VITAMIN SUPPLEMENTATION Non-VA OLANZAPINE 5MG TAB TAKE ONE TABLET BY MOUTH TWICE DAILY Non-VA medication not recommended by VA provider. OUTPT OMEPRAZOLE 20MG EC CAP (Status = ) TAKE ONE CAPSULE BY MOUTH TWICE DAILY FOR EXCESSIVE PRODUCTION OF STOMACH ACID Rx# [id number] Last Released: 12/16/24 Qty/Days Supply: 180/90 Rx Expiration Date: 03/17/25 Refills Remainin Indication: FOR EXCESSIVE PRODUCTION OF STOMACH ACID OUTPT OMEPRAZOLE 20MG EC CAP (Status = Active/Suspended) TAKE ONE CAPSULE BY MOUTH EVERY MORNING 30 MINUTES BEFORE BREAKFAST FOR EXCESSIVE PRODUCTION OF STOMACH ACID Rx# [id number] Last Released: 03/23/25 Qty/Days Supply: 9090 Rx Expiration Date: 03/21/26 Refills Remainin Indication: FOR EXCESSIVE PRODUCTION OF STOMACH ACID Non-VA ONDANSETRON HCL 4MG TAB TAKE ONE TABLET BY MOUTH DIRECVTED Medication prescribed by Non-VA provider. when has panic attacks OUTPT POTASSIUM CL 20MEQ SA TAB (DISPERSIBLE) (Status = Active) TAKE ONE TABLET BY MOUTH ONCE DAILY FOR LOW POTASSIUM Rx# [id number] Last Released: 03/03/25 Qty/Days Supply: 90/90 Rx Expiration Date: 03/02/26 Refills Remainin Indication: FOR LOW POTASSIUM OUTPT SITAGLIPTIN (EQV-ZITUVIO) 100MG TAB (Status = Active) TAKE ONE TABLET BY MOUTH ONCE DAILY Rx# [id number] Last Released: 02/15/25 Qty/Days Supply: 9090 Rx Expiration Date: 02/14/26 Refills Remainin Indication: DIABETES Non-VA TRAZODONE HCL 100MG TAB TAKE ONE-HALF TABLET BY MOUTH AT BEDTIME Non-VA VENLAFAXINE HCL 150MG 24HR SA CAP TAKE 1 CAPSULE BY MOUTH ONCE DAILY Non-VA medication not recommended by VA provider. SUPPLIES OUTPT ACCU-CHEK GUIDE (GLUCOSE) TEST STRIP (Status = Active) USE 1 STRIP TO TEST BLOOD SUGARS DIRECTED Rx# [id number] Last Released: 11/23/24 Qty/Days Supply: 50/180 Rx Expiration Date: 11/16/25 Refills Remainin /karlene/ OLIMPIA BRIGHT DPM BULLET SWAGING MACHINE OPERATOR Signed: 05/18/2025 09:23 OLIMPIA BRIGHT [place]
--- NOTE | ~2025-06-07 | CT_ITS ---
CLINICAL HISTORY: traums CT cervical spine without contrast Comparison: CT/SR - CT CERVICAL SPINE WITHOUT IV CONTRAST - 11/19/23 13:44 EST Findings: There is degenerative loss of normal cervical lordosis. There is no fracture. There is moderate C5-6 and C6-7 degenerative disc disease. There is multilevel facet and uncovertebral joint osteoarthritis with associated neuroforaminal stenoses. IMPRESSION: No evidence of cervical spine injury. This document has been electronically signed by: Freddy Baires MD on 06/07/2025 22:02:32
--- NOTE | ~2025-06-07 | CT_ITS ---
CLINICAL HISTORY: trauma CT maxillofacial without contrast Comparison: None provided Findings: There is a left forehead contusion. There is no fracture. Orbits are unremarkable. Paranasal sinuses and mastoids are clear. There are multiple absent teeth. Temporomandibular joints are normally aligned. IMPRESSION: No facial fracture. This document has been electronically signed by: Freddy Baires MD on 06/07/2025 22:07:36
--- NOTE | ~2025-06-07 | CT_ITS ---
CLINICAL HISTORY: trauma CT head without contrast Comparison: CT/SR - CT HEAD WITHOUT IV CONTRAST - 11/19/23 13:44 EST Findings: There is no acute intracranial hemorrhage. Ventricles are within normal limits in size. No mass effect or midline shift is present. The suárez-white matter differentiation appears normal. There is mild generalized cerebral atrophy. Mild hypoattenuation in the periventricular white matter is stable and consistent with chronic small vessel ischemic disease. The visualized portions of the orbits, paranasal sinuses, and mastoids are unremarkable. No fractures are identified. IMPRESSION: No acute intracranial abnormality. This document has been electronically signed by: Freddy Baires MD on 06/07/2025 22:07:56
[2025-06-07 17:49] VITALS: BP 185/112; PULSE 83; O2SAT 96
[2025-06-07 17:50] VITALS: BP 110/60; PULSE 78; RESP 16; TEMP 36.6; O2SAT 93; BMI 37.2
[2025-06-07 18:04] VITALS: BP 110/60; PULSE 78; RESP 16; TEMP 36.6; O2SAT 93
--- OUTSIDE RECORDS SUMMARY | 2025-06-07 18:19 | XMS_ITS | Encounter Summary ---
Author Organization [employer] [facility] Address [address] [place] [address] [address] [place] [address] Care Team Providers Care Senior Courtroom Clerk Name Role Phone Unavailable Primary Care Provider Unavailabl e Encounter Details Date Type Department Care Team (Late st Contact Info) Description 05/12/2025 Orders Only [facility] ADULT DENTAL [address] [place] [address] Leela Roberts DDS [address] [place], [place] [id number] Social History Tobacco Use Types Packs/Day Years [...] Care Team (Late st Contact Info) Description 09/15/2025 3:00 PM EST Office Visit [facility] [address] [place] [address] MilkaGabby [address] [place] [address] documented as of this encounter Visit Diagnoses Not on filedocumented in this encounter
--- OUTSIDE RECORDS SUMMARY | 2025-06-07 18:19 | XMS_ITS | Encounter Summary ---
Author Organization [employer] Address [address] [facility] [address] [place] [address] Care Team Providers Care Analog Ic Design Engineer Name Role Phone Unavailable Primary Care Provider Unavailabl e Reason for Visit * Reason Onset Date Comments DR AVILES PT 05/11/2025 Encounter Details Date Type Department Care Team (Late st Contact Info) Description 05/11/2025 Telephone [facility] ADULT DENTAL [address] [place] [address] Leela Roberts DDS [address] [place] [address] DR AVILES PT Social History Tobacco Use Types Packs/Day Years [...] AM EDT documented as of this encounter Miscellaneous Notes * Telephone Encounter - Dominic Carballo - 05/11/2025 12:57 PM EDT Pt is requesting more pain relief meds to get sent to pharmacy because he can't take the pain without medication until his next appt. He would also like to receive a call if something is sent documented in this encounter Plan of Treatment Upcoming Encounters Date Type Department Care Team (Late st Contact Info) Description 09/15/2025 3:00 PM EST Office Visit [facility] ADULT DENTAL [address] [place] [address] Gabby Jarquin [address] [place] [address] documented as of this encounter Visit Diagnoses Not on filedocumented in this encounter
--- OUTSIDE RECORDS SUMMARY | 2025-06-07 18:21 | XMS_ITS | Clinical Summary ---
Author Organization [facility] Facility Address [address] [address] Care Team Providers Care Director Educational Radio Name Role Phone Daron Oconnell Primary Care Provider [phone] Social History Tobacco Use Types Packs/Day Years [...] Pneumococcal Vaccine: 50+ Ye ars (1 of 1 - PCV) 2011 Influenza Vaccine (#1) 2025 Colorectal Cancer Screening: Colonoscopy 05/30/2032 05/30/2022 Hepatitis B Vaccine Aged Out No longe r eligible based on patient's age to complete this topic Insurance [facility] [place] 1,2,3 (VACCN) [facility] Dual Elig Dc [facility] [employer] 1,2,3 (VACCN) Care Teams Director Educational Radio Relationship Specialty Start Date End Date Daron Oconnell PA [address] [place] [address] PCP - General Physician Oyster Picker 12/02/23
--- OUTSIDE RECORDS SUMMARY | 2025-06-07 18:21 | XMS_ITS | Encounter Summary ---
Author Organization [employer] Address [address] [place] [address] [address] [place] [address] Care Team Providers Care Bench Grinder Name Role Phone Unavailable Primary Care Provider Unavailabl e Encounter Details Date Type Department Care Team (Latest Contact Info) Description 04/14/2022 Abstract [facility] CONVERSIONS Dental, Provider, DDS Social History [...] Description 09/15/2025 3:00 PM EST Office Visit [facility] ADULT DENTAL [address] [place] [address] Venkata Jarquinaris [address] [place] [address] documented as of this encounter Visit Diagnoses Not on filedocumented in this encounter
--- OUTSIDE RECORDS SUMMARY | 2025-06-07 18:21 | XMS_ITS | Encounter Summary ---
Author Organization [employer] Address [address] [place] [address] [address] [place] [address] Care Team Providers Care Trophy Assembler Name Role Phone Unavailable Primary Care Provider Unavailabl e Encounter Details Date Type Department Care Team (Latest Contact Info) Description 02/04/2019 Abstract [facility] CONVERSIONS Dental, Provider, DDS Social History Tobacco [...] Upcoming Encounters Date Type Department Care Team ( st Contact Info) Description 09/15/2025 3:00 PM EST Office Visit [facility] ADULT DENTAL [address] [place] [address] Venkata Jarquinaris [address] [place] [address] documented as of this encounter Visit Diagnoses Not on filedocumented in this encounter
--- OUTSIDE RECORDS SUMMARY | 2025-06-07 18:21 | XMS_ITS | Clinical Summary ---
Author Organization [facility] Address [address] [facility] [address] [place] [phone] Phone Care Team Providers Care Consumer Recruiter Name Role Phone Daron Oconnell Primary Care Provider [phone] Allergies No known active allergies Medications OLANZapine (ZYPREXA) 5 MG tablet Take 1 tablet by mouth 2 (two) times a day. 4 Active omeprazole (PRILOSEC) 20 MG capsule Take 20 mg by mouth. 3 Active clonazePAM (KLONOPIN) 1 MG tablet Take 1 mg by mouth 3 (three) times a day as needed. 4 Active propranoloL (INDERAL) 10 MG immediate release tablet Take 10 mg by mouth 2 (two) times a day. 4 Active traZODone (DESYREL) 50 MG tablet Take 50 mg by mouth. 3 Active hydrOXYzine (ATARAX) 25 MG tablet Take 25 mg by mouth every 6 (six) hours as needed. 3 Active atorvastatin (LIPITOR) 20 MG tablet Take 20 mg by mouth every morning. 4 Active ondansetron (ZOFRAN-ODT) 4 MG disintegrating tablet Take 4 mg by mouth every 6 (six) hours as needed for nausea. Active venlafaxine (EFFEXOR-ER,) 150 mg TR24 Take 112.5 mg by mouth daily. Active famotidine (PEPCID) 10 MG tablet Take 10 mg by mouth nightly at bedtime as needed for heartburn. Active haloperidoL (HALDOL) 5 MG tablet Take 5 mg by mouth daily as needed (nausea). Active busPIRone (BUSPAR) 5 MG tablet Take 5 mg by mouth 2 (two) times a day. Active thiamine (VITAMIN B-1) 100 MG tablet Take 100 mg by mouth daily. Active folic acid (FOLVITE) 1 MG tablet Take 1 mg by mouth daily. Active albuterol 90 mcg/actuation inhaler Inhale 2 puffs into the lungs every 6 (six) hours as needed for wheezing. Active aspirin 81 MG EC tablet Take 81 mg by mouth daily. Active nicotine (NICODERM CQ) 21 mg/[address] 1 patch onto the skin daily. Active Active Problems Problem Noted Date Diagnosed Date Esophageal reflux 11/30/2023 Diverticulosis of colon 11/30/2023 RICARDO (acute kidney injury) 11/30/2023 Assessment & Plan (12/02/2023 10:00 AM EST): Presented with RICARDO on CKD with baseline creatinine around 1.3. His creatinine peaked at 3.1 during hospital course, down to 1.9 today. Renal ultrasound did not show any stones or hydronephrosis. He is improving, responding to supportive management --Nephrology recommendations reviewed. Follow-up appreciated -- Continue IV fluids another day, diet as tolerated --Holding DAMARI -- Assuming continued improvement in renal function, likely discharge tomorrow and follow-up with PCP Vomiting 11/30/2023 Assessment & Plan (12/02/2023 10:05 AM EST): Concern for possible marijuana hyperemesis syndrome Presented to the [place] initially on the , has had longstanding history of marijuana use and has been taking long hot showers to relieve the nausea. He has had cyclical vomiting before, has been symptomatic on and off for the last 10 days He has had significant weight loss in the last few weeks. Per his primary care physician at the [place], there were some nonemergent findings seen on an ultrasound last week of gallstones and sludge, some liver lesions which were planned to be followed with an outpatient CT and MRI. Abdominal ultrasound here shows several hypoechoic hepatic lesions up to 3.8 cm, increased echogenicity of the hepatic parenchyma suggesting hepatic steatosis and suspicion for gallstones. He should have a follow-up CT or MRI, liver mass protocol. Electrolyte abnormality 11/30/2023 Assessment & Plan (12/02/2023 10:02 AM EST): Electrolytes are stable Leukocytosis 11/30/2023 Assessment & Plan (12/02/2023 10:03 AM EST): Probably stress response from nausea and vomiting. Infectious workup otherwise unremarkable. White blood cell count has normalized Anxiety and depression 11/30/2023 Assessment & Plan (12/02/2023 10:01 AM EST): Patient will return to the [place] for ongoing treatment, denies SI. --Continuing outpatient regimen. -- BuSpar has been increased back up to 5 mg twice daily. Continue trazodone and venlafaxine as scheduled Acute kidney injury 11/30/2023 Dental caries 04/21/2023 Type 2 diabetes mellitus wit hout complication, without long-term current use of insulin 01/27/2022 Assessment & Plan (12/02/2023 10:03 AM EST): Listed history of DM2 in the prior chart, not on any medication for this at the [place]. -- Hemoglobin A1c 7. Will need follow-up with PCP Essential (primary) hypertension 10/05/2021 Assessment & Plan (12/02/2023 10:02 AM EST): SBP rising, into the 140s today --Continue holding lisinopril. May be able to restart at discharge if renal function continues to improve -- Continue propranolol Nicotine dependence, uncomplicated 10/05/2021 Hyperlipidemia, unspecified 10/05/2021 Social History Tobacco Use Types Packs/Day Years Used Date Smoking Tobacco: Every Day Cigarettes Smokeless Tobacco: Never Tobacco Cessation:Ready to Q uit: Not Asked; Counseling Given: Not Answered Alcohol Use Standard Drinks/Week Comments Not Currently 0 (1 standard drink = 0.6 oz pur e alcohol) Education Answer Date Recorded Are you interested in more education? Not on krista e 11/30/2023 Are you concerned about learning? Not on file 11/30/2023 No 11/30/2023 No 11/30/2023 Food Answer Date Recorded Within the past 6 months we worried whether our food would run out before we got money to buy more. Never True 11/30/2023 Within the past 6 months the food we bought just didn't last and we didn't have enough money to get more. Never True Residential Stability Answer Date Recor ded What is your housing situation today? I have john herbert 11/30/2023 How many times have you move d in the past 12 months? Zero (I did not move) 11/30/2023 Paying for Meds Answer Date Recorded Do you have trouble paying for medicines? No 11/30/2023 Paying Utility Bills Answer Date Record ed Do you have trouble paying your heating or elect ricity bill? No 11/30/2023 Transportation Answer Date Recorded Has the lack of transportati on kept you from medical appointments or from getting medications? No 11/30/2023 Digital Access Answer Date Recorded No 11/30/2023 Yes 11/30/2023 Do you have reliable internet access at home? Ye s 11/30/2023 Do you have a device (e.g., phone, tablet, computer) with a working camera? Yes 11/30/2023 Intimate Partner Violence Answer Date R ecorded Are you denied basic needs s uch as food, clothing, or medical care? No 11/30/2023 In the past 12 months have y ou been in a relationship with a person who hurts, threatens, or tries to control you? No 11/30/2023 Are you denied basic needs s uch as food, clothing, or medical care? No 11/30/2023 In the past 12 months have y ou been in a relationship with a person who hurts, threatens, or tries to control you? No 11/30/2023 Sex and Gender Information Value Date Recorded Sex Assigned at Not on file Legal Sex Male 9:47 PM EDT Gender Identity Not on file Sexual Orientation Not on file Last Filed Vital Signs Vital Sign Reading Time Taken Comments Blood Pressure 146/86 12/03/2023 8:36 AM EST Pulse 69 12/03/2023 8:36 AM EST Temperature 36.3 C (97.3 F) 12/03/2023 8:36 AM EST Respiratory Rate 16 12/03/2023 8:36 AM EST Oxygen Saturation 99% 12/03/2023 8:3 6 AM EST Inhaled Oxygen Concentration - - Weight 104.6 kg (230 lb 8 oz) 11/30/2023 5:58 PM EST with cloth and shoe Height 172.7 cm (5' 8 ) 11/30/2023 5:58 PM EST Body Mass Index 35.05 11/30/2023 5:58 PM EST Plan of Treatment Health Maintenance Due Date Last Done Comments Adult Td,Tdap Booster 1961 BLOOD PRESSURE 1961 DEPRESSION SCREENING 1973 SMOKING Hx and SMOKELESS TOB ACCO SCREENING 1974 HEPATITIS C SCREENING 1979 HIV ONE-TIME SCREENING (18-6 5 YEARS) 1979 PNEUMOCOCCAL VACCINES (50+ y ears) (1 of 2 - PCV) 1980 COLOGUARD 2006 COLONOSCOPY 2006 COLORECTAL CANCER SCREENING 2006 FIT TEST 2006 FOBT 2006 SIGMOIDOSCOPY 2006 VIRTUAL COLONOSCOPY 2006 ZOSTER VACCINES (1 of 2) 2011 DIABETIC EYE EXAM 11/30/2023 URINE MICROALBUMIN/CREATININ E RATIO 11/30/2023 HEMOGLOBIN A1C 05/31/2024 12/01/2023 INFLUENZA VACCINE (#1) 2025 COVID-19 VACCINE (1 - 2023-2 5 season) 2025 RSV VACCINE (1 - 1-dose 75+ series) 2036 HEPATITIS A VACCINES Aged Out No long er eligible based on patient's age to complete this topic HIB VACCINES Aged Out No longer eligi ble based on patient's age to complete this topic MENINGOCOCCAL VACCINES (ACWY) Aged Out No longer eligible based on patient's age to complete this topic MENINGOCOCCAL VACCINES (B) Aged Out N o longer eligible based on patient's age to complete this topic Medical Devices Not on file Procedures Procedure Name Priority Date/Time Associated Diagnosis Comments HEMOGLOBIN A1C Routine 12/01/2023 7:15 AM EST from Last 3 Months or Most Recently Relevant to Health Maintenance Results * (ABNORMAL) Hemoglobin A1c (12/01/2023 7:15 AM EST) HEMOGLOBIN A1C 7.0(H) 4.3 - 5.8 % [facility] Blood 12/01/2023 7:15 AM EST 12/01/2023 8:09 AM EST Sophia George TRACER BULLET SECTION SUPERVISOR LAB BLOOD ORDERABLES nal Result [facility] [address] [place] [address] from Last 3 Months or Most Recently Relevant to Health Maintenance Insurance [facility] MEDICARE PART A & B [facility] MEDICARE [facility] A & B [facility] MEDICARE [facility] A & B [facility] MEDICARE PART A & [facility] [id number] [facility] MEDICARE PART A & [facility] MEDICARE PART A & B [facility] Advance Directives For more information, please contact: [phone] (9AM - 5PM Clar[facility], Thursday-Thursday) * Full Code (Latest Code Status on File) Date Activated Date Inactivated Comments 11/30/2023 6:19 PM Question Answer Comments Code Status Confirmed With: Patient Care Teams Consumer Recruiter Relationship Specialty Start Date End Date Daron Oconnell PA [address] [place] [address] PCP - General Physician Slag Production Worker 11/30/23 Additional Source Comments The information contained in this document represents components of the legal health record. It is not the complete legal health record.[facility]
--- OUTSIDE RECORDS SUMMARY | 2025-06-07 18:21 | XMS_ITS | Encounter Summary ---
Author Organization [employer] Address [address] [place] [address] [address] [place] [address] Care Team Providers Care Latin Professor Name Role Phone Unavailable Primary Care Provider Unavailabl e Encounter Details Date Type Department Care Team (Latest Contact Info) Description 12/06/2020 Abstract [facility] CONVERSIONS Dental, Provider, DDS Social History [...] Description 09/15/2025 3:00 PM EST Office Visit [facility] ADULT DENTAL [address] [place] [address] Venkata Jarquinaris [address] [place] [address] documented as of this encounter Visit Diagnoses Not on filedocumented in this encounter
--- OUTSIDE RECORDS SUMMARY | 2025-06-07 18:21 | XMS_ITS | Encounter Summary ---
Author Organization [employer] [facility] Address [address] [place] [address] Care Team Providers Care Public Health Inspector Name Role Phone Unavailable Primary Care Provider Unavailabl e Encounter Details Date Type Department Care Team (Late st Contact Info) Description 05/04/2023 Abstract [facility] ADULT DENTAL [address] [place], [place] [phone] Rob Connolly DDS [address] [place], [place] [phone] Social History Tobacco Use Types Packs/Day Years [...] Description 09/15/2025 3:00 PM EST Office Visit [facility] ADULT DENTAL [address] [place], [place] [phone] MilkaGabby [address] [place], [place] [phone] documented as of this encounter Visit Diagnoses Not on filedocumented in this encounter
--- OUTSIDE RECORDS SUMMARY | 2025-06-07 18:21 | XMS_ITS | Encounter Summary ---
Author Name [facility] Organization [facility] Address [address] [place] [address] Care Team Providers Care Wrap Turner Name Role Phone AUSTIN BALDWIN Primary Care [...] Relationship to Policy Lomas PATRICIO MULLIGAN-ESME Jones [place] [facility] PATRICIO ERICKSON Nov 14, 2024 PATRICIO MULLIGAN [id number] Dougie RIVERA PATIENT [facility] MEDICAID MEDICAID MEDIC AID Oct 05, 2016 MEDICAI D [id number] Dougie RIVERA NALLELY PATIENT MEDICAID MEDICAID [facility] STAND BEATRICE Oct 05, 2014 MEDICAI D [id number] Dougie RIVERA NALLELY PATIENT MEDICARE (WNR) MEDICARE (M) PART B May 05, 2018 PART B [id number] [facility] Dougie RIVERA NALLELY PATIENT MEDICARE (WNR) MEDICARE (M) PART A May 05, 2018 PART A [id number] Dougie RIVERA PATIENT Selected Encounter This section includes the information on record at [place] for the Encounter. Date/Time Encounter Type Encounter [...] this document. The data comes from all [place] facilities. Date Advance Directives Provider Source Dec 12, 2014 ADVANCE DIRECTIVE KATRIN GREEN
--- OUTSIDE RECORDS SUMMARY | 2025-06-07 18:21 | XMS_ITS | Clinical Summary ---
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 Active aspirin 81 MG EC tablet Take 81 mg by mouth in the morning. Active atorvastatin (Lipitor) 20 MG tablet Take 20 mg by mouth in the morning. 11/03/19 24 Active busPIRone (Buspar) 5 MG tablet Take 5 mg by mouth 2 times daily. 06/07/20 21 Active clonazePAM (KlonoPIN) 1 MG tablet Take 1 mg by mouth if needed in the morning, at noon, and at bedtime. 10/30/19 24 Active OLANZapine (ZyPREXA) 5 MG tablet Take 1 tablet by mouth 2 times daily. 03/18/20 23 Active ondansetron ODT (Zofran-ODT) 4 MG disintegrating tablet Take 4 mg by mouth every 6 (six) hours if needed. Active metFORMIN (Glucophage) 500 MG tablet 250 mg. 04/20/20 23 Active nicotine (Nicoderm, Step 1) 21 MG/24HR patch Place 1 patch on the skin at bed time. Active venlafaxine XR (Effexor XR) 150 MG 24 hr tablet Take 112.5 mg by mouth in the morning. Active traZODone (Desyrel) 50 MG tablet Take 50 mg by mouth. 08/23/20 23 Active propranolol (Inderal) 10 MG tablet Take 10 mg by mouth 2 times daily. 10/14/19 24 Active omeprazole (PriLOSEC) [address] capsule Take 20 mg by mouth. 05/13/20 23 Active venlafaxine XR (Effexor XR) 150 MG 24 hr capsule Take 1 capsule by mouth in the morning. 03/18/20 23 Active haloperidol (Haldol) 5 MG tablet Take [...] MG tablet Take 1 mg by mouth. 04/05/20 24 Active fenofibrate (Tricor) 145 MG tablet Take 1 tablet by mouth Once per day. 03/16/20 24 Active amLODIPine (Norvasc) 10 MG tablet Take 10 mg by mouth. 09/20/20 24 Active bumetanide (Bumex) 0.5 MG tablet Take 0.5 mg by mouth. 03/01/20 25 Active cholecalciferol (Vitamin D-3) 50 MCG (2000 UT) tablet Take 50 mcg by mouth. 03/01/20 25 Active hydrOXYzine pamoate (Vistaril) 25 MG capsule take 1 capsule by mouth three times daily as needed Active acetaminophen (Tylenol 8 Hour) 650 MG ER tablet Take 1 tablet (650 mg) by mouth every 8 (eight) hours if needed for moderate pain for up to 10 days. Do not crush, chew, or split. 15 tablet 05/05/20 25 025 Discontinued amoxicillin (Amoxil) 500 MG capsule Take 1 capsule (500 mg) by mouth every 8 (eight) hours for 7 days. 21 capsule 05/05/20 25 025 Discontinued ibuprofen 600 MG tablet Take 1 tablet (600 mg) by mouth every 6 (six) hours if needed for mild pain for up to 10 days. 15 tablet 05/05/20 25 025 Discontinued amoxicillin (Amoxil) 500 MG capsule Take 1 capsule (500 mg) by mouth every 8 (eight) hours for 7 days. 21 capsule 05/12/20 25 025 acetaminophen (Tylenol 8 Hour) 650 MG ER tablet Take 1 tablet (650 mg) by mouth every 8 (eight) hours if needed for moderate pain for up to 10 days. Do not crush, chew, or split. 15 tablet 05/12/20 25 025 amoxicillin (Amoxil) 500 MG capsule Take 1 capsule (500 mg) by mouth every 8 (eight) hours for 7 days. 21 capsule 05/12/20 25 025 ibuprofen 800 MG tablet Take 1 tablet (800 mg) by mouth every 8 (eight) hours if needed for mild pain for up to 10 days. 15 tablet 05/12/20 25 025 acetaminophen (Tylenol 8 Hour) 650 MG ER tablet Take 1 tablet (650 mg) by mouth every 8 (eight) hours if needed for moderate pain for up to 10 days. Do not crush, chew, or split. 15 tablet 05/12/20 25 025 amoxicillin (Amoxil) 500 MG capsuleIndications :History of tooth extraction, unspecified edentulism class Take 1 capsule (500 mg) by mouth every 8 (eight) hours for 7 days. 21 capsule 05/24/20 25 025 ibuprofen 600 MG tabletIndications: History of tooth extraction, unspecified edentulism class Take 1 tablet (600 mg) by mouth every 6 (six) hours if needed for mild pain for up to 10 days. 20 tablet 05/24/20 25 025 Active Problems Problem Noted Date Diagnosed Date Chest wall pain 05/05/2025 Overview (05/05/2025): Sep 11, 2021 Entered By: AUSTIN BALDWIN Comment: Intermittent Ch Wall Sx w/o Angina Jul 03, 2022 Entered By: AUSTIN BALDWIN Comment: EKG in ED JUN 26: Sinus Tach; Non-Specific ST T Wave ABNL; Jul 03, 2022 Entered By: AUSTIN BALDWIN Comment: Incomplete RBBB Apr 20, 2023 Entered By: AUSTIN BALDWIN Comment: Cardiac Exercise Stress Test Done [facility] MARCH 27: Apr 20, 2023 Entered By: AUSTIN BALDWIN Comment: went Well per Pt. Stage 3 chronic kidney disease 05/05/2025 Overview (05/05/2025): Apr 09, 2015 Entered By: AUSTIN BALDWIN Comment: eGFR 49 in APRIL 18: to see Pion Jayne Renal in APRIL 18 Mar 31, 2018 Entered By: AUSTIN BALDWIN Comment: US, Renals Bladder Dianelys MARCH 23: No Mass of Bleed Dec 16, 2023 Entered By: AUSTIN BALDWIN Comment: New US, Renals DEC 26 at [facility]; No Banner or Obstruct Uropathy Dec 16, 2023 Entered By: AUSTIN BALDWIN Comment: US Done Because of RICARDO on top of CKD (eGFR is 20 in NOV 28) Mar 07, 2025 Entered By: AUSTIN BALDWIN Comment: See Neuro Note Dated MARCH 29: CKD Deemed Stable; Mar 07, 2025 Entered By: AUSTIN BALDWIN Comment: Dx Hypertensive Nephrosclerosis Chronic kidney disease, stage 3 unspecified 10/2024 Chronic kidney disease, stage 4 (severe) 025 Obesity, class 2 05/05/2025 Class 2 obesity 05/05/2025 Erectile dysfunction 05/05/2025 Peripheral vascular disease, unspecified 025 Hypertension 05/05/2025 Exposure to potentially hazardous substance 10/2024 Overview (05/05/2025): Dec 26, 2022 Entered By: AUSTIN BALDWIN Comment: Asbestosis in [facility] Jan 18, 2024 Entered By: MARYAM DOMINIQUE Comment: MARIA FERNANDA Screening Snomed Code connected 12/26/22 Fracture of ankle 05/05/2025 Overview (05/05/2025): Dec 16, 2013 Entered By: AUSTIN BALDWIN Comment: Fx, R Ankle and ORIF approx 1982 ( parachute) Gastro-esophageal reflux disease without esophag itis 05/05/2025 Hyperglycemia, unspecified 05/05/2025 Hyperglycemia 05/05/2025 Overview (05/05/2025): Mar 10, 2022 Entered By: AUSTIN BALDWIN Comment: Begin Trial Low Dose Metformin MARCH 2012 Mar 09, 2023 Entered By: AUSTIN BALDWIN Comment: Diabetes Mellitius Hypertriglyceridemia 05/05/2025 Ingrowing nail 05/05/2025 Nicotine dependence, cigarettes, uncomplicated 0 05/05/2025 Obstructive sleep apnea (adult) (pediatric) 10/2024 Obstructive sleep apnea syndrome in adult 2024 Overview (05/05/2025): Oct 20, 2023 Entered By: GUNNAR IBARRA Comment: Jul 2023 HST: CIRILO - 20, moderate Localized edema 05/05/2025 Edema, unspecified 05/05/2025 Other general symptoms and signs 05/05/2025 Pain in left hand 05/05/2025 Pain in right lower leg 05/05/2025 Pain of right lower leg 05/05/2025 Overview (05/05/2025): March 01, 2025 Entered By: AUSTIN BALDWIN Comment: Unprovoked Pain, Swell R Calf FEBRUARY 26; US in [place] ER was Neg DVT Personal history of other malignant neoplasm of skin 05/05/2025 Other specified counseling 05/05/2025 Screening for malignant neoplasm of colon 2024 Screening for malignant neoplasm of colon perfor med 05/05/2025 Overview (05/05/2025): Mar 10, 2022 Entered By: AUSTIN BALDWIN Comment: pending 2021 Secondary polycythemia 05/05/2025 Overview (05/05/2025): Apr 13, 2018 Entered By: AUSTIN BALDWIN Comment: Saw [facility] (DR. 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; Apr 13, 2018 Entered By: AUSTIN BALDWIN Comment: Smoker; Referred for LDCT (he may have declined LDCT); Apr 13, 2018 Entered By: AUSTIN BALDWIN Comment: Also, Renal Insufficiency; Return to [facility] AUG 22 Apr 13, 2018 Entered By: AUSTIN BALDWIN Comment: Has Had H/O Elevated H/H's Steatosis of liver 05/05/2025 Overview (05/05/2025): Dec 24, 2023 Entered By: AUSTIN BALDWIN Comment: CT, ABD DEC 24: Diffuse Steatosis w/o Focal Hepatic Mass Dec 24, 2023 Entered By: AUSTIN BALDWIN Comment: No Ductal Dilatation; Pancreas Appears NL Tobacco use 05/05/2025 Torticollis 05/05/2025 Nausea 05/05/2025 Unspecified retinal disorder 05/05/2025 Nausea with vomiting, unspecified 05/05/2025 Anxiety 05/05/2025 Panic disorder (episodic paroxysmal anxiety) 10/2024 Anxiety disorder, unspecified 05/05/2025 Panic attack 05/05/2025 Overview (05/05/2025): Dec 16, 2013 Entered By: AUSTIN BALDWIN Comment: sees outside psych as of DEC 16: Fluoxetine, Ativan Neida Acute bronchospasm 05/05/2025 Malignant otitis externa 05/05/2025 Overview (05/05/2025): Jun 17, 2023 Entered By: GUNNAR IBARRA Comment: May 2023 Abdominal pain 04/10/2025 Overview (04/10/2025): Dec 24, 2021 Entered By: AUSTIN BALDWIN Comment: Seen Ed DEC 24: CT of ABD/Pelvis.Thorax Neg for Any Acuities Dec 24, 2021 Entered By: AUSTIN BALDWIN Comment: Some N/V Accompanies ABD Pain; No Etio for ABD Pain Noted Dec 24, 2021 Entered By: AUSTIN BALDWIN Comment: During Hospital Course; GI Referral Discussed Jul 03, 2022 Entered By: AUSTIN BALDWIN Comment: Seen ED JUN 26: Intractable N/V; Dehydration, RICARDO, Anxiety Jul 03, 2022 Entered By: AUSTIN BALDWIN Comment: CT, ABD in ED JUN 26: +Sigmoid Diverticulosis; No Diverticulitis Jul 03, 2022 Entered By: AUSTIN BALDWIN Comment: No Bowel Obstruction; No Acute ABD/Pelvic Findings Jul 03, 2022 Entered By: AUSTIN BALDWIN Comment: No Hepatic or Biliary Lesions Dilatation Jul 03, 2022 Entered By: AUSTIN BALDWIN Comment: Sx of N/V Attributed to Excess THC Use, Dehydration Unspecified abdominal pain 04/10/2025 Acute bronchitis, unspecified 04/10/2025 Bronchospasm 04/10/2025 Overview (04/10/2025): Nov 04, 2023 Entered By: AUSTIN BALDWIN Comment: Cold-Induced Calculus of prostate 04/10/2025 Overview (04/10/2025): Nov 26, 2015 Entered By: AUSTIN BALDWIN Comment: Thought he Had Kidney Stone; But Appear Not Nov 26, 2015 Entered By: AUSTIN BALDWIN Comment: US, Kid, Bladder APRIL 18 Neg for Stone, Obstruct, or Mass Cannabis dependence 04/10/2025 Cannabis dependence with other cannabis-induced disorder 04/10/2025 Carpal tunnel syndrome 04/10/2025 Overview (04/10/2025): Dec 16, 2013 Entered By: AUSTIN BALDWIN Comment: Surg B/L (R Side in 2010 & L side 2012) Cervical disc disorder at C6-C7 level with radic ulopathy 04/10/2025 Cervical radiculopathy 04/10/2025 Overview (04/10/2025): May 11, 2020 Entered By: AUSTIN BALDWIN Comment: X-Ray, C-Spine MAY 24: +Degen Disc and Joint Disease May 11, 2020 Entered By: AUSTIN BALDWIN Comment: Trying PT - if no Benefit, then Get MRI and Refer to Neuro Surg Cervicalgia 04/10/2025 Dental calculus 09/16/2024 Periodontal disease 09/16/2024 Missing teeth, acquired 09/16/2024 Generalized gingival recession 09/16/2024 Retained dental root 05/26/2024 Non-restorable tooth 05/26/2024 Acute renal failure 11/30/2023 Anxiety and depression 11/30/2023 Diverticulosis of colon 11/30/2023 Electrolyte abnormality 11/30/2023 Gastroesophageal reflux disease 11/30/2023 Leukocytosis 11/30/2023 Vomiting 11/30/2023 Partial edentulism 07/17/2023 Dental caries 04/21/2023 Type 2 diabetes mellitus wit hout complication, without long-term current use of insulin 01/27/2022 Overview (05/05/2025): Mar 16, 2024 Entered By: AUSTIN BALDWIN Comment: See Pharm D Note Dated MARCH 28 March 01, 2025 Entered By: AUSTIN BALDWIN Comment: See Pharm D Note Dated FEBRUARY 26 Essential (primary) hypertension 10/05/2021 Hyperlipidemia, unspecified 10/05/2021 Nicotine dependence, uncomplicated 10/05/2021 Encounters Date Type Department Care Team Description 05/24/2025 8:00 AM EDT Office Visit [facility] [address] [place] [address] Sahra Polo DDS History of tooth extraction, unspecified edentulism class (Primary Dx) 05/19/2025 9:00 AM EDT Office Visit [facility] [address] [facility] [place] [address] Clifford Silva DMD 05/12/2025 Orders Only [facility] [address] [facility] [place] [address] Leela Roberts DDS 05/11/2025 Telephone [facility] [address] [facility] [place] [address] ACOSTA PT 05/05/2025 9:30 AM EDT Office Visit [facility] [address] [place] [address] Leela Roberts DDS Dental caries (Primary Dx); Symptomatic irreversible pulpitis 04/14/2025 10:00 AM EDT Office Visit [facility] [address] [place] [place] [address] Clifford Silva DMD 04/10/2025 3:30 PM EDT Office Visit [facility] [address] [place] [address] Clifford Silva DMD 03/08/2025 9:00 AM EDT Office Visit [facility] [address] [place] [address] Gabby Jarquin Clinical xerostomia (Primary Dx); Dental calculus; Missing teeth, acquired; Generalized gingival recession; Periodontal disease from Last 3 Months Social History Tobacco Use Types Packs/Day Years [...] Sign Reading Time Taken Comments Blood Pressure 130/90 05/24/2025 8:12 AM EDT Pulse - - Temperature - - Respiratory Rate - - Oxygen Saturation - - Inhaled Oxygen Concentration - - Weight - - Height - - Body Mass Index - - Plan of Treatment Upcoming Encounters Date Type Department Care Team (Late st Contact Info) Description 09/15/2025 3:00 PM EST Office Visit [facility] [address] [place] [address] Gabby Jarquin [address] [place] [address] Health Maintenance Due Date Last Done Comments CT Colonography 1961 Colonoscopy 1961 Colorectal Cancer Screening 1961 Depression Screening 1961 FIT DNA/Cologuard 1961 FIT 1961 FOBT 1961 HIV Screening 1961 Lipid Panel 1961 SDOH Screening 1961 Sigmoidoscopy 1961 Disability Screening 1961 Diabetes: Foot Exam 1971 Alcohol/Substance Use Screening 1973 Hepatitis C Screening 1979 Diabetes: Urine Protein Screening 1980 Hepatitis A Vaccines (1 of 2 - Risk 2-dose series) 1980 Hepatitis B Vaccines (1 of 3 - Risk 3-dose series) 2021 RSV Patients and Patients Aged 60 years or older (1 - Risk 60-74 years 1-dose series) 2021 Diabetes: Hemoglobin A1C 02/29/2024 12/01/2023 Dental X-Ray: Bitewings 12/04/2024 12/04/19 24, 04/14/2022, 11/13/2020, Additional history exists Dental Prophylaxis 03/18/2025 09/16/2024, 0 01/14/2024, 06/24/2021, Additional history exists Dental X-Ray: Full Mouth 04/15/2025 04/14/2022, 04/0 03/2015 COVID-19 Vaccine ( season) 2025 10/21/2022, 09/17/2021, 01/14/2021, Additional history exists Influenza Vaccine (#1) 2025 , 08/25/2023, 07/03/2022, Additional history exists Dental Oral Exam 10/16/2025 04/14/2025, 10/2023, 11/13/2020, Additional history exists Tobacco Screening 05/24/2026 05/24/2025 Pneumococcal Vaccine: 50+ Years (3 of 3 - PCV20 or PCV21) 12/13/2026 12/13/2021, 07/22/2016, 11/26/2015 Eye Exam 03/14/2027 03/14/2025 DTaP/Tdap/Td Vaccines (3 - Td or Tdap) 03/01/2035 03/01/2025, 03/20/2014 Zoster Vaccines Completed 03/01/2019, 11/03/2018 HIB Vaccines Aged Out No longer eligi ble based on patient's age to complete this topic HPV Vaccines Aged Out No longer eligi ble based on patient's age to complete this topic IPV Vaccines Aged Out No longer eligi ble based on patient's age to complete this topic Meningococcal B Vaccine Aged Out No l onger eligible based on patient's age to complete [...] Procedure Name Priority Date/Time Associated Diagnosis Comments 30 EXTRACTION, ERUPTED TOOTH OR EXPOSED ROOT (ELEVATION/FORCEPS REMOVAL) Routine 05/24/2025 8:00 AM EDT CASE PRESENTATION, DETAILED AND EXTENSIVE TREATMENT PLANNING Routine 05/24/2025 8:00 AM EDT CASE PRESENTATION, DETAILED AND EXTENSIVE TREATMENT PLANNING Routine 05/19/2025 9:00 AM EDT 27 F(V) RESIN-BASED COMPOSITE - 1 SURF, ANTERIOR Routine 05/19/2025 9:00 AM EDT 26 F(V) RESIN-BASED COMPOSITE - 1 SURF, ANTERIOR Routine 05/19/2025 9:00 AM EDT 24 F(V) RESIN-BASED COMPOSITE - 1 SURF, ANTERIOR Routine 05/19/2025 9:00 AM EDT 23 F(V) RESIN-BASED COMPOSITE - 1 SURF, ANTERIOR Routine 05/19/2025 9:00 AM EDT PALLIATIVE (EMERGENCY) TREATMENT OF DENTAL PAIN - MINOR PROCEDURE Routine 05/05/2025 9:30 AM EDT Dental caries Symptomatic irreversible pulpitis CASE PRESENTATION, DETAILED AND EXTENSIVE TREATMENT PLANNING Routine 05/05/2025 9:30 AM EDT Dental caries Symptomatic irreversible pulpitis INTRAORAL - PERIAPICAL FIRST RADIOGRAPHIC IMAGE Routine 05/05/2025 9:30 AM EDT Dental caries Symptomatic irreversible pulpitis PERIODIC ORAL EVALUATION - ESTABLISHED PATIENT Routine 04/14/2025 10:00 AM EDT CASE PRESENTATION, DETAILED AND EXTENSIVE TREATMENT PLANNING Routine 04/14/2025 10:00 AM EDT REPAIR RESIN PARTIAL DENTURE BASE, MAX Routine 04/14/2025 10:00 AM EDT DENTURE IMPRESSION Routine 04/10/2025 3: 30 PM EDT LR PERIODONTAL SCALING AND ROOT PLANING - 1 TO 3 TEETH PER QUADRANT Routine 03/08/2025 9:00 AM EDT Dental calculus Periodontal disease LL PERIODONTAL SCALING AND ROOT PLANING - 1 TO 3 TEETH PER QUADRANT Routine 03/08/2025 9:00 AM EDT Dental calculus Periodontal disease ORAL HYGIENE INSTRUCTIONS Routine 03/08/2025 9:00 AM EDT Clinical xerostomia Dental calculus Missing teeth, acquired Generalized gingival recession Periodontal disease CASE PRESENTATION, DETAILED AND EXTENSIVE TREATMENT PLANNING Routine 03/08/2025 9:00 AM EDT Clinical xerostomia Dental calculus Missing teeth, acquired Generalized gingival recession Periodontal disease PROPHYLAXIS - ADULT Routine 09/16/2024 1 1:00 AM EST Dental calculus Periodontal disease BITEWINGS - 4 RADIOGRAPHIC IMAGES Routine 12/04/2023 1:00 PM EST INTRAORAL - COMPLETE SERIES OF RADIOGRAPHIC IMAGES Routine 04/14/2022 12:00 AM EDT from Last 3 Months or Most Recently Relevant to Health Maintenance Insurance DENTAL - [facility] FULL (MEDICAID)
[2025-06-07 19:19] VITALS: BP 135/84; PULSE 71; RESP 18; O2SAT 94
--- NOTE | 2025-06-07 20:02 | ECG_ITS ---
Test Reason : syncope Blood Pressure : */* mmHG Vent. Rate : 68 BPM Atrial Rate : 68 BPM P-R Int : 176 ms QRS Dur : 102 ms QT Int : 410 ms P-R-T Axes : 62 0 80 degrees QTcB Int : 435 ms Normal sinus rhythm Incomplete right bundle branch block Septal infarct , age undetermined Abnormal ECG When compared with ECG of 22-Dec-2024 08:55, Septal infarct is now Present Criteria for Inferior infarct are no longer Present Nonspecific T wave abnormality no longer evident in Inferior leads T wave inversion no longer evident in Anterolateral leads Referred By: Beto Qureshi Electronically Signed By: Michael Starr
[2025-06-07 20:46] LABS: MANUAL DIFF FLAG NO
--- NOTE | 2025-06-07 20:47 | ED.GENADULT ---
HPI - General Adult General Chief complaint: Fall Stated complaint: fall after getting dizzy d/t smoking marijuana Time Seen by Provider: 06/07/25 19:36 Source: patient, RN notes reviewed and old records reviewed Mode of arrival: EMS Limitations: no limitations History of Present Illness ED Provider: Kiera HPI narrative: 64-year-old male past medical history significant for depression, cocaine abuse, history of osteomyelitis, kidney disease, who presents for evaluation after a fall. The patient reports that he was smoking weed while hanging out with a friend. He reports that while smoking he had lightheaded and fell face forward he struck his forehead on the ground causing a laceration above his left eyebrow. He does not believe that he lost consciousness denies any chest pain or shortness of breath. The patient denies any substance abuse aside from the marijuana he denies any pain no other complaints or concerns at this time Related Data Home Medications ?Medication ?Instructions ?Recorded ?Confirmed atorvastatin 20 mg tablet 20 mg PO BEDTIME 11/11/21 08/30/24 propranolol 10 mg tablet 10 mg PO TID PRN Anxiety 11/11/21 08/30/24 clonazepam 1 mg tablet 1 mg PO BID Anxiety 02/18/23 08/30/24 venlafaxine 150 mg 150 mg PO DAILY 07/13/24 08/30/24 capsule,extended release 24 hr amlodipine 5 mg tablet 5 mg PO DAILY 08/30/24 08/30/24 aspirin 81 mg tablet,delayed 81 mg PO DAILY 08/30/24 08/30/24 release buspirone 5 mg tablet 5 mg PO BID 08/30/24 08/30/24 cholecalciferol (vitamin D3) 50 50 mcg PO DAILY 08/30/24 08/30/24 mcg (2,000 unit) tablet (Vitamin D3) fenofibrate nanocrystallized 145 145 mg PO DAILY 08/30/24 08/30/24 mg tablet hydroxyzine HCl 25 mg tablet 25 mg PO DAILY Anxiety 08/30/24 08/30/24 omeprazole 20 mg capsule,delayed 20 mg PO BID 08/30/24 08/30/24 release ondansetron 4 mg disintegrating 4 mg PO DIRECTED 08/30/24 08/30/24 tablet semaglutide 2 mg/dose (8 mg/3 mL) 2 mg subcut QWEEK 08/30/24 08/30/24 subcutaneous pen injector (Ozempic) trazodone 50 mg tablet 50 mg PO BEDTIME PRN Insomnia 08/30/24 08/30/24 varenicline tartrate 1 mg tablet 1 mg PO BID 08/30/24 08/30/24 Previous Rx's ?Medication ?Instructions ?Recorded venlafaxine 37.5 mg 37.5 mg PO DAILY #30 caps 02/24/23 capsule,extended release 24 hr olanzapine 5 mg tablet 5 mg PO BID 30 days #60 tabs 08/23/23 albuterol sulfate 90 mcg/actuation 2 inh inhalation Q6-8H PRN 07/16/24 aerosol inhaler shortness of breath or wheezing #18 grams amlodipine 10 mg tablet 10 mg PO DAILY #90 tabs 08/30/24 ondansetron 4 mg disintegrating 4 mg PO Q8H PRN nausea and 12/22/24 tablet vomiting #20 tabs sucralfate 100 mg/mL oral 10 ml PO BID 7 days #140 mL 12/22/24 suspension (Carafate) cephalexin 500 mg capsule 500 mg PO Q8H 7 days #21 caps 02/01/25 furosemide 20 mg tablet (Lasix) 20 mg PO DAILY 3 days #3 tabs 02/01/25 Allergies Allergy/AdvReac Type Severity Reaction Status Date / Time codeine (CODEINE) AdvReac Severe Nausea Verified 06/07/25 17:53 Review of Systems Constitutional: Constitutional: Denies body ache(s), Denies chills, Denies fever(s), Denies frequent falls and Denies headache(s) ENT: Denies vertigo, Denies dizziness and Denies headache(s) Cardiovascular: Cardiovascular: Denies syncope, Reports lightheadedness, Denies palpitations and Denies dyspnea on exertion Respiratory: Respiratory: Denies cough and Denies dyspnea on exertion Gastrointestinal: Gastrointestinal: Denies abdominal pain, Denies nausea and Denies vomiting Musculoskeletal: Musculoskeletal: Denies back pain Integumentary/Breasts: Skin/Breast: Denies erythema and Reports wounds Neurologic: Denies vertigo, Denies dizziness, Denies syncope, Denies frequent falls and Denies headache(s) Endocrine: Endocrine: Denies palpitations PMFSH Past Medical History Medical History Acute viral syndrome Cannabis abuse Cocaine abuse PTSD (post-traumatic stress disorder) Anxiety Hyperlipidemia Depression Osteomyelitis Panic attacks HTN (hypertension) GERD (gastroesophageal reflux disease) Chronic renal insufficiency H/O ETOH abuse Smoker Amputation finger Diabetes Surgical History History of carpal tunnel release of both wrists Hx of foot surgery H/O colonoscopy Family History Family History Other No family history of coronary artery disease Social History Social History Household Members: None Household Members Other:: Self Housing: Apartment Housing Other:: lives in basement of a home Do you presently have visiting nurse or other home services: No Unable to assess alcohol history related to: Refusing to respond Alcohol intake: never Patient Tobacco Use Status: Former Tobacco user Tobacco use type: Cigarette Cigarette Packs Per Day: 0.5 Cigarettes Per Day: 10 Years Smoked: Many Smoked in Last 30 Days: Yes e-Cigarette/Vaping Use: Currently Using Use of substances other than those prescribed or required for medical reasons: Yes Substance Use Type: Marijuana Substance Use Frequency: Chronic Longstanding Last Used Substance: Hours (ago) Any prior treatment program specific to substance use: No Advance Directives: Yes Advance Directives on File: Yes Advance Directives Date on File: 06/24/22 service: Yes Current occupational status: disabled Sexual orientation: Straight/Heterosexual Physical Exam ED Vital Signs: Vital Signs - 24 hr 06/07/25 17:50 06/07/25 18:04 06/07/25 19:19 Temperature 98 F 98 F Pulse Rate 78 78 71 Respiratory Rate 16 16 18 Blood Pressure 110/60 110/60 135/84 Pulse Oximetry 93 93 94 Oxygen Delivery Method Room Air Room Air 06/07/25 21:22 Temperature Pulse Rate 66 Respiratory Rate 18 Blood Pressure 135/71 Pulse Oximetry 94 Oxygen Delivery Method Room Air BMI result Body Mass Index 37.2 Const General: healthy appearing, comfortable, no acute distress, alert and awake Nutritional Appearance: well nourished Orientation/consciousness: patient oriented x3 HENMT Other: 4cm laceration to the left upper eyebrow. No active bleeding Head: No atraumatic and Yes laceration Eyes Eyelids: Yes eyelids normal Conjunctivae: conjunctivae normal Sclerae: sclerae normal Corneas: corneas normal Pupils: Equal, round and reactive pupils present EOM: EOMs intact bilaterally Neck Neck: Yes full ROM Resp Effort & Inspection: normal respiratory effort, able to speak in complete sentences and not labored Cardio Rate: regular rate Rhythm: regular rhythm GI Inspection: No distended Palpation (GI): Soft to palpation, not firm, nontender, no guarding and not rigid Skin General skin exam: elasticity normal Neuro General: patient oriented x3 Cranial nerves: Yes CN's II-XII intact bilaterally, Yes Equal, round and reactive pupils present and Yes Bilaterally intact EOM present Cognition (Neuro): normal cognition Extrem Other: Moving all extremities well without any obvious deformities Course Reevaluation(s) Reevaluation #1: patient's workup largely unremarkable, CT scan of the brain, cervical spine and facial bones did not show any evidence of traumatic injury. I removed the patient's C-collar. I did initially order a chest x-ray due to the fall, however the patient reports no chest pain, no shortness of breath, no pleuritic pain, no pain on inspiration. He is not hypoxic or tachypneic. I have a low suspicion for pneumothorax. The chest x-ray was canceled at the patient's request Time: 22:59 Medications Administered Discontinued Medications Generic Name Dose Route Start Last Admin Trade Name Freq PRN Reason Stop Dose Admin Diphtheria/Tetanus/Acell Pertussis 0.5 ml 06/07/25 20:14 06/07/25 21:44 Diphth,Pertus(Acell),Tet Adult 0.5 Ml Syringe IM 06/07/25 20:15 0.5 ml .ONCE ONE Administration Lidocaine/Epinephrine 10 ml 06/07/25 20:14 06/07/25 21:46 Lidocaine Hcl 1%/Epi 1:100,000 20 Ml Vial INFILTRATI 06/07/25 20:15 10 ml ONCE ONE Administration Procedures Laceration Laceration 1: Site: face Side (If applicable): left Size (cm): 4 Description: linear Depth: simple, single layer Local Anesthetic: lidocaine 1% and with epi Amount of anesthesia used (mL): 6 Pre-repair: wound explored, irrigated extensively and deep structures intact Skin layer closed with: nylon Size (cm): 5-0 Number of sutures: 7 Technique: simple, interrupted Medical Decision Making Medical Decision Making [facility] Narrative: 64-year-old male presents for evaluation of a fall with head injury. We had a CT scan of the brain, facial bones and cervical spine. He is in a C-collar. Given the lightheadedness with fall we will obtain an EKG, basic labs, tox screen. The patient is overall well-appearing, alert and oriented x4. Vital signs are stable. In his possible that he had a vasovagal episode must smoking, hopefully the chest x-ray will help rule out pneumothorax. We will try to rule out arrhythmia the patient has a history of cocaine abuse but denies illicit substances aside from the marijuana today. Differential Diagnosis Differential Diagnoses: The differential diagnosis associated with the presentation includes Syncope Near-syncope Lightheadedness Marijuana use Vasovagal syncope Orthostasis Dehydration Intracranial hemorrhage Laceration Calvarial fracture Lab Data [facility] Lab Attestation statement: I reviewed the patient's lab results. patient has a mild leukocytosis to 13.5, I suspect this is related to substance abuse and smoking. The patient has no fever or infectious symptoms. No significant anemia. Normal platelet count. No electrolyte abnormalities warranting intervention. Initial troponin negative. 06/07/25 20:38 06/07/25 20:38 Labs: Lab Results 06/07/25 Range/Units 20:38 WBC 13.5 H (4.8-10.8) X10*3/uL RBC 5.22 (4.60-5.80) X10*6/uL Hgb 15.4 (14.0-18.0) g/dl Hct 43.5 (42.0-52.0) % MCV 83.3 (80.0-98.0) fL MCH 29.5 (27.0-33.0) pg MCHC 35.4 (31.0-36.0) g/dl RDW 13.7 (11.0-16.0) % Plt Count 213 (160-400) X10*3/uL MPV 10.3 (9.4-12.4) fL Immature Gran % (Auto) 0.4 (0.0-0.4) % Neut % (Auto) 73.4 H (45-73) % Lymph % (Auto) 16.3 L (20-40) % [place] % (Auto) 7.1 (2-11) % Eos % (Auto) 2.1 (0-4) % Baso % (Auto) 0.7 (0-2) % Lymph # (Auto) 2.2 (1.2-4.9) X10*3/uL [place] # (Auto) 1.0 (0.1-1.2) X10*3/uL Eos # (Auto) 0.3 (0.0-0.4) X10*3/uL Baso # (Auto) 0.1 (0.0-0.2) X10*3/uL Abs Immat Gran (auto) 0.05 H (0.00-0.03) X10*3/uL Absolute Neuts (auto) 9.9 H (2.0-8.3) x10*3/uL Absolute Nucleated RBC 0.000 (0.0-0.012) X10*3/uL Nucleated RBC % (auto) 0.0 (0.0-0.2) /100WBC Sodium 142 (135-145) mmol/L Potassium 4.1 (3.3-5.1) mmol/L Chloride 104 (96-108) mmol/L Carbon Dioxide 26 (22-29) mmol/L Anion Gap 16 (12-20) BUN 12 (9-16) mg/dL Creatinine 1.27 (0.5-1.4) mg/dL Estim Creat Clear Calc 71.9 Estimated GFR 57 Random Glucose 118 H (60-115) mg/dL Calcium 9.0 (8.4-10.2) mg/dL Total Bilirubin 0.5 (0.0-1.0) mg/dL AST 65 H (5-37) U/L ALT 100 H (0-40) U/L Alkaline Phosphatase 32 L (39-117) U/L Troponin I High Sens 4.3 D (<3.5-35.0) ng/L Total Protein 6.9 (6.5-8.0) g/dL Albumin 4.3 (3.5-5.0) g/dL Urine Opiates Screen Not Detected (Not Detect) Ur Buprenorphine Scrn Not Detected (Not Detect) ng/mL Ur Oxycodone Screen Not Detected (Not Detect) ng/mL Urine Methadone Screen Not Detected (Not Detect) ng/mL Urine Fentanyl Screen Not Detected (Not Detect) Ur Barbiturates Screen Not Detected (Not Detect) Ur Phencyclidine Scrn Not Detected (Not Detect) Ur Amphetamines Screen Not Detected (Not Detect) U Benzodiazepines Scrn Not Detected (Not Detect) Urine Cocaine Screen Not Detected (Not Detect) U Marijuana (THC) Screen POSITIVE H (Not Detect) Ethyl Alcohol < 10 mg/dL Independent Interpretation I performed an independent interpretation of an: EKG ( Normal sinus rhythm with a rate of [address] segment elevation or depression) Radiology Impression Discussion of test interpretation with radiology: I have reviewed the radiologist's reading. Radiologist Impression: Findings: There is no acute intracranial hemorrhage. Ventricles are within normal limits in size. No mass effect or midline shift is present. The suárez-white matter differentiation appears normal. There is mild generalized cerebral atrophy. Mild hypoattenuation in the periventricular white matter is stable and consistent with chronic small vessel ischemic disease. The visualized portions of the orbits, paranasal sinuses, and mastoids are unremarkable. No fractures are identified. IMPRESSION: No acute intracranial abnormality. This document has been electronically signed by: Freddy Baires MD on 06/07/2025 22:07:56 Findings: There is a left forehead contusion. There is no fracture. Orbits are unremarkable. Paranasal sinuses and mastoids are clear. There are multiple absent teeth. Temporomandibular joints are normally aligned. IMPRESSION: No facial fracture. This document has been electronically signed by: Freddy Baires MD on 06/07/2025 22:07:36 Findings: There is degenerative loss of normal cervical lordosis. There is no fracture. There is moderate C5-6 and C6-7 degenerative disc disease. There is multilevel facet and uncovertebral joint osteoarthritis with associated neuroforaminal stenoses. IMPRESSION: No evidence of cervical spine injury. This document has been electronically signed by: Freddy Baires MD on 06/07/2025 22:02:32 Prescription Management I considered prescription management with: Pain Medication Discharge Plan Discharge Clinical Impression: Cannabis use disorder, Facial laceration Patient Disposition: Home, Self-Care Instructions: Laceration (ED) Additional Instructions: you had 7 sutures placed today. These can be removed in 5-7 days. Your tetanus was updated today in his good for 5 years. Keep the area clean and dry. Follow up with your primary doctor, return for new or worsening symptoms Prescriptions: No Action atorvastatin 20 mg Tablet 20 mg PO BEDTIME propranolol 10 mg Tablet 10 mg PO TID PRN (Reason: Anxiety) clonazepam 1 mg tablet 1 mg PO BID venlafaxine 37.5 mg capsule,extended release 24hr 37.5 mg PO DAILY Qty: 30 0RF olanzapine 5 mg Tablet 5 mg PO BID 30 Days Qty: 60 1RF buspirone 5 mg Tablet 5 mg PO BID amlodipine 5 mg Tablet 5 mg PO DAILY aspirin 81 mg Tablet,Delayed Release (Dr/Ec) 81 mg PO DAILY omeprazole 20 mg Capsule,Delayed Release(Dr/Ec) 20 mg PO BID ondansetron 4 mg Tablet,Disintegrating 4 mg PO DIRECTED Rx Instructions: Take one tablet as directed for panic attacks. varenicline tartrate 1 mg Tablet 1 mg PO BID fenofibrate nanocrystallized 145 mg Tablet 145 mg PO DAILY cholecalciferol (vitamin D3) [Vitamin D3] 50 mcg (2,000 unit) Tablet 50 mcg PO DAILY Ozempic 2 mg/dose (8 mg/3 mL) Pen Injector 2 mg SUBCUT QWEEK trazodone 50 mg tablet 50 mg PO BEDTIME PRN (Reason: Insomnia) hydroxyzine HCl 25 mg tablet 25 mg PO DAILY amlodipine 10 mg tablet 10 mg PO DAILY Qty: 90 0RF cephalexin 500 mg capsule 500 mg PO Q8H 7 Days Qty: 21 0RF furosemide [Lasix] 20 mg tablet 20 mg PO DAILY 3 Days Qty: 3 0RF venlafaxine 150 mg capsule,extended release 24hr 150 mg PO DAILY albuterol sulfate 90 mcg/actuation HFA aerosol inhaler 2 inh inhalation Q6-8H PRN (Reason: shortness of breath or wheezing) Qty: 18 0RF ondansetron 4 mg tablet,disintegrating 4 mg PO Q8H PRN (Reason: nausea and vomiting) Qty: 20 0RF sucralfate [Carafate] 100 mg/mL suspension 10 ml PO BID 7 Days Qty: 140 0RF Print Language: German
[2025-06-07 20:55] LABS: Hematocrit 43.5 % (42.0-52.0); Hemoglobin 15.4 g/dl (14.0-18.0); Imm Gran Abs Auto 0.05 X10*3/uL (0.00-0.03); Imm Gran Pct Auto 0.4 % (0.0-0.4); Lymphocytes Absolute Auto 2.2 X10*3/uL (1.2-4.9); Mean Corpuscular HGB Conc 35.4 g/dl (31.0-36.0); Mean Corpuscular Hemoglobin 29.5 pg (27.0-33.0); Mean Corpuscular Volume 83.3 fL (80.0-98.0); NRBC Abs Auto 0.000 X10*3/uL (0.0-0.012); NRBC Pct Auto 0.0 /100WBC (0.0-0.2); Platelet Count 213 X10*3/uL (160-400); Red Blood Count 5.22 X10*6/uL (4.60-5.80); White Blood Count 13.5 X10*3/uL (4.8-10.8)
[2025-06-07 21:03] LABS: Alanine Aminotransferase 100 U/L (0-40); Albumin Level 4.3 g/dL (3.5-5.0); Alkaline Phosphatase 32 U/L (39-117); Anion Gap 16 (12-20); Aspartate Amino Transferase 65 U/L (5-37); Blood Urea Nitrogen 12 mg/dL (9-16); Calcium 9.0 mg/dL (8.4-10.2); Carbon Dioxide 26 mmol/L (22-29); Chloride 104 mmol/L (96-108); Creatinine Clr Calc Pharmacy 71.9; Estimated Glomerular Filt Rate 57; Potassium 4.1 mmol/L (3.3-5.1); Sodium 142 mmol/L (135-145); Total Protein 6.9 g/dL (6.5-8.0)
[2025-06-07 21:10] LABS: Cannabinoid Screen Urine POSITIVE (Not Detect); Troponin-I High Sensitivity 4.3 ng/L (<3.5-35.0)
[2025-06-07 21:22] VITALS: BP 135/71; PULSE 66; RESP 18; O2SAT 94
[2025-06-07] MEDS: Diphth,Pertus(ACell),Tet Adult 0.5 ML SYRINGE IM (21:44)
[2025-06-07] MEDS: Lidocaine HCl 1%/Epi 1:100,000 20 ML VIAL 10 ML INFILTRATI (21:46)
[2025-06-07 23:20] VITALS: BP 134/76; PULSE 97; RESP 16; TEMP 36.7; O2SAT 98
== END 2025-06-07 23:51 | disposition home or self-care (01) ==
PROVIDERS: Physician Assistant; Emergency Provider Emergency Medicine Emergency Medical Services
DX: S01.112A Laceration without foreign body of left eyelid and periocular area, initial encounter (principal); R51.9 Headache, unspecified; M54.2 Cervicalgia; F12.129 Cannabis abuse with intoxication, unspecified; R42 Dizziness and giddiness; X58.XXXA Exposure to other specified factors, initial encounter; Y93.9 Activity, unspecified; Y92.9 Unspecified place or not applicable; Y99.8 Other external cause status; Z51.81 Encounter for therapeutic drug level monitoring; Z87.891 Personal history of nicotine dependence; Z79.899 Other long term (current) drug therapy; Z23 Encounter for immunization
CPT/HCPCS: 12013; 36415; 70450; 70486; 72125; 80053; 80307; 84484; 85025; 90471; 90715; 93005; 99284; J2004

== ENCOUNTER → 2025-06-07 20:02 | Outpatient (BNV) | payer OTHER, SELFPAY | PROVIDERS: Emergency Provider Emergency Medicine Emergency Medical Services; Visit Provider Radiology Diagnostic Radiology | DX: Z04.3 Encounter for examination and observation following other accident (principal); S01.81XA Laceration without foreign body of other part of head, initial encounter | CPT/HCPCS: 70450; 70486; 72125 ==

== ENCOUNTER → 2025-06-07 20:02 | Outpatient (BNV) | payer OTHER, SELFPAY | PROVIDERS: Emergency Provider Emergency Medicine Emergency Medical Services; Visit Provider Internal Medicine Cardiovascular Disease | DX: I45.10 Unspecified right bundle-branch block (principal) | CPT/HCPCS: 93010 ==